=== PATIENT | female | born 1935 | race Caucasian/White ===

== ENCOUNTER 2023-12-28 19:43 | Emergency (ER) | payer MEDICARE, SELFPAY ==
[2023-12-28 19:48] VITALS: BP 210/60; PULSE 65; RESP 20; TEMP 36.1; O2SAT 98; BMI 22.9
--- NOTE | 2023-12-28 20:08 | ECG_ITS ---
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
--- NOTE | 2023-12-28 20:11 | ED.GENADUL1 ---
HPI - General Adult General Chief complaint: Recheck/Abnormal Lab/Rx Stated complaint: Hypertension Time Seen by Provider: 12/28/23 19:45 Source: patient Mode of arrival: walk-in History of Present Illness HPI narrative: Patient is an 88-year-old female with a longstanding history of hypertension presents to the emergency department for elevated blood pressure readings at home. She denies headache, chest pain, recent illness, new or different medications. She states she has no symptoms, she checks her blood pressure at home because she knows when her blood pressure is high. She has no strokelike symptoms. She denies any recent adjustments of medications from her vp care management office who manages her blood pressure. She states she has an appointment in 3 weeks with them. She checked her blood pressure multiple times this afternoon and the readings were noted to increase throughout the day. Related Data Home Medications ?Medication ?Instructions ?Recorded ?Confirmed amlodipine 5 mg tablet 5 mg PO QAM 12/28/23 12/28/23 carvedilol 25 mg tablet 25 mg PO BID 12/28/23 12/28/23 clonidine HCl 0.2 mg tablet mg 12/28/23 hydralazine 50 mg tablet mg 12/28/23 lorazepam 0.5 mg tablet mg 12/28/23 losartan 100 mg tablet 100 mg PO DAILY 12/28/23 12/28/23 spironolactone 25 mg tablet mg 12/28/23 Allergies Allergy/AdvReac Type Severity Reaction Status Date / Time Sulfa (Sulfonamide Allergy Unknown Verified 12/28/23 20:11 Antibiotics) Review of Systems ROS Constitutional Denies: fever or chills Eyes Denies: change in vision Ears, nose, mouth, and throat Denies: throat pain or nasal congestion Cardiovascular Denies: chest pain Respiratory Denies: shortness of breath or cough Gastrointestinal Denies: nausea or vomiting Integumentary/Breast Denies: rash Neurological Denies: headache Psychiatric Reports: anxiety Exam Narrative Exam Narrative: Gen.: Awake, alert, in no distress Head: Normocephalic, atraumatic ENT: Moist mucous membranes Respiratory: No respiratory distress, lungs clear bilaterally Cardio: Regular rate and rhythm Extremities: Moves extremities equally Psych: Normal mood and affect Neuro: No focal neuro deficit Skin: Warm, dry, intact Constitutional Vital Signs, click to edit/add: Last Vital Signs Temp 96.9 F L 12/28/23 19:48 Pulse 61 12/28/23 20:46 Resp 18 12/28/23 20:46 BP 180/62 H 12/28/23 20:37 Pulse Ox 97 12/28/23 20:46 O2 Del Method Room Air 12/28/23 19:48 Course Vital Signs Vital signs: Vital Signs Temperature 96.9 F L 12/28/23 19:48 Pulse Rate 65 12/28/23 19:48 Respiratory Rate 20 12/28/23 19:48 Blood Pressure 210/60 H 12/28/23 19:48 Pulse Oximetry 98 12/28/23 19:48 Oxygen Delivery Method Room Air 12/28/23 19:48 Temperature 96.9 F L 12/28/23 19:48 Pulse Rate 61 12/28/23 20:46 Respiratory Rate 18 12/28/23 20:46 Blood Pressure 180/62 H 12/28/23 20:37 Pulse Oximetry 97 12/28/23 20:46 Oxygen Delivery Method Room Air 12/28/23 19:48 Medical Decision Making MDM Narrative Medical decision making narrative: Prior to blood pressure medication administration, blood pressure is 180/62 manually. Patient has no focal medical complaints. She has an unremarkable EKG and labs. She was given IV hydralazine, Vasotec was withheld. She was reevaluated by attending physician prior to discharge. Follow-up with PCP and vp care management for medication adjustment as needed Medical Records Medical records reviewed: Yes I reviewed the patient's medical records Lab Data Lab results reviewed: Yes I reviewed the patient's lab results Labs: Lab Results 12/28/23 Range/Units 20:22 WBC 6.0 (4.0-11.0) 10^3/uL RBC 4.57 (4.20-5.40) 10^6/uL Hgb 13.7 (12.0-16.0) g/dL Hct 42.9 (36.0-48.0) % MCV 93.9 (81.0-99.0) fL MCH 30.0 (26.7-34.0) pg MCHC 31.9 (29.9-35.2) g/dL RDW 14.8 (11.0-15.0) % Plt Count 142 L (150-450) 10^3/uL MPV 10.8 (9.5-13.5) fL Neut % (Auto) 39.9 L (43.0-75.0) % Lymph % (Auto) 34.9 (20.5-60.0) % [place] % (Auto) 15.1 H (1.7-12.0) % Eos % (Auto) 6.2 (0.9-7.0) % Baso % (Auto) 3.4 H (0.2-2.0) % Neut # (Auto) 2.4 (1.4-6.5) 10^3/uL Lymph # (Auto) 2.1 (1.2-3.8) 10^3/uL [place] # (Auto) 0.9 H (0.3-0.8) 10^3/uL Eos # (Auto) 0.4 (0.0-0.7) 10^3/uL Baso # (Auto) 0.2 H (0.0-0.1) 10^3/uL Abs Immat Gran (auto) 0.03 (0.00-0.03) 10^3/uL Imm/Tot Granulo (auto) 0.5 (0.0-0.5) % Sodium 139 (136-145) mmol/L Potassium 3.8 (3.5-5.1) mmol/L Chloride 106 (98-107) mmol/L Carbon Dioxide 26.1 (21.0-32.0) mmol/L Anion Gap 10.7 BUN 22.0 H (7.0-18.0) mg/dL Creatinine 1.11 H (0.55-1.02) mg/dL Est GFR ( Amer) 56 L (>=60) Est GFR (Non-Af Amer) 46 L (>=60) BUN/Creatinine Ratio 19.8 Glucose 108 H (74-106) mg/dL Calcium 9.7 (8.5-10.1) mg/dL Troponin I High Sens 6.6 (4.0-51.3) pg/mL ECG Data Attestation: I personally reviewed and interpreted this ECG as follows: (Normal sinus rhythm at a rate of 62, sinus arrhythmia with no acute ST elevation or ectopy. EKG reviewed by attending physician) Discharge Plan Discharge Stand Alone Forms: Portal Instructions Chief Complaint: Recheck/Abnormal Lab/Rx Clinical Impression: Hypertension Patient Disposition: Home, Self-Care Time of Disposition Decision: 20:57 Condition: Good Prescriptions / Home Meds: No Action carvedilol 25 mg tablet 25 mg PO BID amlodipine 5 mg tablet 5 mg PO QAM spironolactone 25 mg tablet clonidine HCl 0.2 mg tablet lorazepam 0.5 mg tablet hydralazine 50 mg tablet losartan 100 mg tablet 100 mg PO DAILY Print Language: Upper Sorbian Instructions: Hypertension (ED) Referrals: Amelia Trinh MD [Primary Care Provider] - 1 week
[2023-12-28 20:28] LABS: Basophils Absolute Auto 0.2 10^3/uL (0.0-0.1); Basophils Percent Auto 3.4 % (0.2-2.0); Eosinophils Absolute Auto 0.4 10^3/uL (0.0-0.7); Eosinophils Percent Auto 6.2 % (0.9-7.0); Hematocrit 42.9 % (36.0-48.0); Hemoglobin 13.7 g/dL (12.0-16.0); Immature Granulocytes Abs Auto 0.03 10^3/uL (0.00-0.03); Immature Granulocytes Pct Auto 0.5 % (0.0-0.5); Lymphocytes Absolute Auto 2.1 10^3/uL (1.2-3.8); Lymphocytes Percent Auto 34.9 % (20.5-60.0); Mean Corpuscular HGB Conc 31.9 g/dL (29.9-35.2); Mean Corpuscular Volume 93.9 fL (81.0-99.0); Mean Platelet Volume 10.8 fL (9.5-13.5); Monocytes Absolute Auto 0.9 10^3/uL (0.3-0.8); Monocytes Percent Auto 15.1 % (1.7-12.0); Neutrophils Absolute Auto 2.4 10^3/uL (1.4-6.5); Neutrophils Percent Auto 39.9 % (43.0-75.0); Platelet Count 142 10^3/uL (150-450); Red Blood Count 4.57 10^6/uL (4.20-5.40); Red Cell Distribution Width 14.8 % (11.0-15.0)
[2023-12-28 20:37] VITALS: BP 180/62
[2023-12-28] MEDS: HYDRALAZINE HCL 20 MG/ML VIAL 10 MG IVP (20:37)
[2023-12-28 20:46] VITALS: PULSE 61; RESP 18; O2SAT 97
[2023-12-28 20:47] LABS: Anion Gap 10.7; BUN Creatinine Ratio 19.8; Calcium 9.7 mg/dL (8.5-10.1); Carbon Dioxide 26.1 mmol/L (21.0-32.0); Chloride 106 mmol/L (98-107); Estimated GFR (African America 56 (>=60); Estimated GFR (Non-African Ame 46 (>=60); Glucose 108 mg/dL (74-106); Potassium 3.8 mmol/L (3.5-5.1); Sodium 139 mmol/L (136-145); Troponin I High Sensitivity 6.6 pg/mL (4.0-51.3)
[2023-12-28 21:16] VITALS: BP 162/54
[2023-12-28 21:19] VITALS: PULSE 70; RESP 16
== END 2023-12-28 21:39 | disposition home or self-care (01) ==
PROVIDERS: Physician Assistant; Emergency Provider Emergency Medicine; PCP Family Medicine
DX: I10 Essential (primary) hypertension (principal); Z79.899 Other long term (current) drug therapy
CPT/HCPCS: 36415; 80048; 84484; 85025; 93005; 96374; 99285

== ENCOUNTER 2024-01-12 08:03 | Outpatient (OUT) | payer MEDICARE, SELFPAY ==
[2024-01-12 08:35] LABS: Estimated Average Glucose 100 mg/dL; Glycohemoglobin A1C 5.1 % (4.5-6.2)
[2024-01-12 09:08] LABS: Anion Gap 12.8; BUN Creatinine Ratio 17.2; Calcium 9.7 mg/dL (8.5-10.1); Chloride 104 mmol/L (98-107); Estimated GFR (African America 50 (>=60); Estimated GFR (Non-African Ame 42 (>=60); Glucose 114 mg/dL (74-106); Potassium 3.8 mmol/L (3.5-5.1); Sodium 139 mmol/L (136-145); TSH W/ REFLEX FT4 3.735 uIU/mL (0.358-3.740)
== END 2024-01-12 08:04 | disposition home or self-care (01) ==
LOC: LAB 08:03
PROVIDERS: PCP Family Medicine; Visit Provider Family Medicine
DX: I12.9 Hypertensive chronic kidney disease with stage 1 through stage 4 chronic kidney disease, or unspecified chronic kidney disease (principal); R73.09 Other abnormal glucose; I1A.0 Resistant hypertension; N18.32 Chronic kidney disease, stage 3b
CPT/HCPCS: 36415; 80048; 83036; 84443

== ENCOUNTER 2024-04-25 17:55 | Emergency (ER) | payer MEDICARE, SELFPAY ==
[2024-04-25] VITALS (24 sets, daily range): BP systolic 155–192; BP diastolic 62–98; PULSE 55–75; TEMP 36.5; O2SAT 97–99; BMI 23.2
--- NOTE | 2024-04-25 18:02 | ECG_ITS ---
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
--- NOTE | 2024-04-25 18:08 | XR_ITS ---
The [address] [address] Patient Name: ZORAIDA GAYTAN MRN: [id number] date: 1935 Sex: F Assigned Patient Location: ER Current Patient Location: ER Accession/Order Number: [id number] Exam Date: 04/25/2024 18:19 Report Date: 04/25/2024 19:28 At the request of: ELLIOT SALDANA Procedure: XR chest 1V EXAM: XR chest 1V COMPARISON: 09/26/2022 CLINICAL INDICATION: Hypertension. FINDINGS: The cardiomediastinal silhouette is within normal limits. No focal consolidation. No pleural effusion. No pneumothorax. Hyperexpanded lungs suggesting emphysema/COPD again seen. Apparent left lower lung calcified granulomas. Trace left basilar atelectasis/scarring. No evidence of acute osseous abnormality. XR/XR chest 1V IMPRESSION: No acute findings. Hyperexpanded lungs suggesting emphysema/COPD again seen. Apparent left lower lung calcified granulomas. Electronically authenticated by: STEVEN TORREZ Date: 04/25/2024 19:28
--- NOTE | 2024-04-25 18:13 | ED_ITS ---
HPI HPI - General Adult General Chief complaint: Chest Pain Stated complaint: High Blood Pressure Time Seen by Provider: 04/25/24 18:01 Source: patient Mode of arrival: walk-in Limitations: no limitations History of Present Illness HPI narrative: Patient is an 88-year-old female who presents to the emergency department for elevated blood pressure noted at home. She states she returned home from shopping when she broke out in a sweat. She states that made her very worried because she looked up symptoms of a possible heart attack and sweating was one of them. She has no medical complaints at this time aside from the elevated blood pressure. She is well-known to this emergency department for frequent visits related to high blood pressure. She has no chest pain, shortness of christian th, no peripheral edema. She is resting comfortably, in no distress at time of initial interview. She denies any recent changes to her blood pressure medications. Related Data Home Medications ?Medication ?Instructions ?Recorded ?Confirmed carvedilol 25 mg tablet 25 mg PO BID 12/28/23 04/25/24 clonidine HCl 0.2 mg tablet 0.2 mg 12/28/23 hydralazine 50 mg tablet 50 mg 12/28/23 lorazepam 0.5 mg tablet mg 12/28/23 losartan 100 mg tablet 100 mg PO DAILY 12/28/23 04/25/24 spironolactone 25 mg tablet 25 mg 12/28/23 Allergies Allergy/AdvReac Type Severity Reaction Status Date / Time Sulfa (Sulfonamide AdvReac Mild rash Verified 04/25/24 17:58 Antibiotics) Opioid HPI Opioid Management Most Recent Opioid Data: No Data to Display Review of Systems ROS Constitutional Denies: fever or chills Ears, nose, mouth, and throat Denies: throat pain or nasal congestion Cardiovascular Denies: chest pain Respiratory Denies: shortness of breath or cough Gastrointestinal Denies: abdominal pain, nausea or vomiting Musculoskeletal Denies: back pain Hematologic/Lymphatic Denies: easy bruising or easy bleeding Exam Narrative Exam Narrative: Gen.: Awake, alert, in no distress Head: Normocephalic, atraumatic ENT: Moist mucous membranes Respiratory: No respiratory distress, lungs clear bilaterally Cardio: Regular rate and rhythm Gastrointestinal: Abdomen is soft, nondistended and nontender to palpation Extremities: Moves extremities equally, no pedal edema Psych: Normal mood and affect Neuro: No focal neuro deficit Skin: Warm, dry, intact Constitutional Vital Signs, click to edit/add: Last Vital Signs Temp 97.7 F 04/25/24 17:59 Pulse 64 04/25/24 20:15 Resp 21 H 04/25/24 20:15 BP 170/83 H 04/25/24 20:15 Pulse Ox 97 04/25/24 19:40 O2 Del Method Room Air 04/25/24 17:59 Course Vital Signs Vital signs: Vital Signs Temperature 97.7 F 04/25/24 17:59 Pulse Rate 60 04/25/24 17:59 Respiratory Rate 16 04/25/24 17:59 Blood Pressure 192/84 H 04/25/24 17:59 Pulse Oximetry 99 04/25/24 17:59 Oxygen Delivery Method Room Air 04/25/24 17:59 Temperature 97.7 F 04/25/24 17:59 Pulse Rate 64 04/25/24 20:15 Respiratory Rate 21 H 04/25/24 20:15 Blood Pressure 170/83 H 04/25/24 20:15 Pulse Oximetry 97 04/25/24 19:40 Oxygen Delivery Method Room Air 04/25/24 17:59 Medical Decision Making MDM Narrative Medical decision making narrative: Patient hypertensive at arrival, she has no chest pain, shortness of breath or diaphoresis on arrival to the emergency department. She did not have any chest pain or shortness of breath at home. EKG is unremarkable, blood pressure improved without any medications that were ordered for her blood pressure. She is resting comfortably on reevaluation. She had 2 negative troponins in the ER. She is discharged home to follow-up with her PCP. Continue blood pressure medications for home. Return to the ER if symptoms change or worsen SUPERVISED APC VISIT, PHYSICIAN ATTESTATION: Based on the medical record the care appears appropriate. ? Medical Records Medical records reviewed: Yes I reviewed the patient's medical records Lab Data Lab results reviewed: Yes I reviewed the patient's lab results Labs: Lab Results 04/25/24 04/25/24 Range/Units 18:07 19:40 WBC 13.3 H (4.0-11.0) 10^3/uL RBC 4.59 (4.20-5.40) 10^6/uL Hgb 13.8 (12.0-16.0) g/dL Hct 43.1 (36.0-48.0) % MCV 93.9 (81.0-99.0) fL MCH 30.1 (26.7-34.0) pg MCHC 32.0 (29.9-35.2) g/dL RDW 14.7 (11.0-15.0) % Plt Count 145 L (150-450) 10^3/uL MPV 10.4 (9.5-13.5) fL Seg Neuts % (Manual) 74.0 Band Neutrophils % 4.0 (0-5) % Lymphocytes % (Manual) 15.0 L (20.5-60.0) % Monocytes % (Manual) 3.0 (1.7-12.0) % Eosinophils % (Manual) 4.0 (0.9-7.0) % Basophils % (Manual) 0.0 L (0.2-2.0) % Neutrophils # (Manual) 9.84 H (1.4-6.5) 10^3/uL Band Neutrophils # 0.5 H (0.0-0.3) 10^3/uL Lymphocytes # (Manual) 1.99 (1.20-3.80) 10^3/uL Monocytes # (Manual) 0.39 (0.30-0.80) 10^3/uL Eosinophils # (Manual) 0.53 (0.00-0.70) 10^3/uL Basophils # (Manual) 0.00 (0.00-0.10) 10^3/uL PT 13.5 H (9.0-11.6) sec INR 1.31 Sodium 139 (136-145) mmol/L Potassium 3.9 (3.5-5.1) mmol/L Chloride 104 (98-107) mmol/L Carbon Dioxide 29.2 (21.0-32.0) mmol/L Anion Gap 9.7 BUN 27.0 H (7.0-18.0) mg/dL Creatinine 1.21 H (0.55-1.02) mg/dL Est GFR ( Amer) 51 L (>=60) Est GFR (Non-Af Amer) 42 L (>=60) BUN/Creatinine Ratio 22.3 Glucose 136 H (74-106) mg/dL Calcium 9.6 (8.5-10.1) mg/dL Total Bilirubin 0.7 (0.2-1.0) mg/dL AST 14 L (15-37) U/L ALT 18 (14-59) U/L Alkaline Phosphatase 63 (46-116) U/L Troponin I High Sens 5.7 6.5 (4.0-51.3) pg/mL NT-Pro-B Natriuret Pep 201.0 (<=1800.0) pg/mL Total Protein 7.4 (6.4-8.2) g/dL Albumin 4.0 (3.4-5.0) g/dL Globulin 3.4 g/dL Albumin/Globulin Ratio 1.2 Imaging Data Chest x-ray: Attestation: I have reviewed the pertinent imaging results. Radiologist's impression: ITS Impressions Chest X-Ray 04/25/24 18:08 IMPRESSION: No acute findings. Hyperexpanded lungs suggesting emphysema/COPD again seen. Apparent left lower lung calcified granulomas. Electronically authenticated by: STEVEN TORREZ Date: 04/25/2024 19:28 ECG Data Attestation: I personally reviewed and interpreted this ECG as follows: (Sinus rhythm at a rate of 65, no acute ST elevation or ectopy. EKG reviewed by attending physician) Discharge Plan Discharge Stand Alone Forms: Portal Instructions Chief Complaint: Chest Pain Clinical Impression: Hypertension Patient Disposition: Home, Self-Care Time of Disposition Decision: 20:26 Condition: Good Prescriptions / Home Meds: No Action carvedilol 25 mg tablet 25 mg PO BID spironolactone 25 mg tablet 25 mg clonidine HCl 0.2 mg tablet 0.2 mg lorazepam 0.5 mg tablet hydralazine 50 mg tablet 50 mg losartan 100 mg tablet 100 mg PO DAILY Print Language: Uzbek Instructions: Hypertension (ED) Referrals: Amelia Trinh MD [Primary Care Provider] - 1 week Discharge Date/Time: 04/25/24 21:04
[2024-04-25 18:16] LABS: Hematocrit 43.1 % (36.0-48.0); Hemoglobin 13.8 g/dL (12.0-16.0); Mean Corpuscular Hemoglobin 30.1 pg (26.7-34.0); Mean Corpuscular Volume 93.9 fL (81.0-99.0); Mean Platelet Volume 10.4 fL (9.5-13.5); Platelet Count 145 10^3/uL (150-450); Red Blood Count 4.59 10^6/uL (4.20-5.40); Red Cell Distribution Width 14.7 % (11.0-15.0); White Blood Count 13.3 10^3/uL (4.0-11.0)
[2024-04-25 18:31] LABS: INR 1.31; Prothrombin Time 13.5 sec (9.0-11.6)
[2024-04-25 18:44] LABS: Alanine Aminotransferase 18 U/L (14-59); Albumin Globulin Ratio 1.2; Alkaline Phosphatase 63 U/L (46-116); Anion Gap 9.7; Aspartate Amino Transferase 14 U/L (15-37); BUN Creatinine Ratio 22.3; Bilirubin Total 0.7 mg/dL (0.2-1.0); Calcium 9.6 mg/dL (8.5-10.1); Carbon Dioxide 29.2 mmol/L (21.0-32.0); Chloride 104 mmol/L (98-107); Estimated GFR (African America 51 (>=60); Estimated GFR (Non-African Ame 42 (>=60); Globulin 3.4 g/dL; Glucose 136 mg/dL (74-106); Potassium 3.9 mmol/L (3.5-5.1); Sodium 139 mmol/L (136-145); Total Protein 7.4 g/dL (6.4-8.2); Troponin I High Sensitivity 5.7 pg/mL (4.0-51.3)
[2024-04-25 19:08] LABS: Band Neutrophils Absolute 0.5 10^3/uL (0.0-0.3); Eosinophils Absolute Manual 0.53 10^3/uL (0.00-0.70); Lymphocytes Absolute Manual 1.99 10^3/uL (1.20-3.80); Monocytes Absolute Manual 0.39 10^3/uL (0.30-0.80); Segmented Neut Absolute Manual 9.84 10^3/uL (1.4-6.5)
[2024-04-25 20:17] LABS: Troponin I High Sensitivity 6.5 pg/mL (4.0-51.3)
== END 2024-04-25 21:04 | disposition home or self-care (01) ==
PROVIDERS: Physician Assistant; Emergency Provider Internal Medicine; PCP Family Medicine
DX: I10 Essential (primary) hypertension (principal)
CPT/HCPCS: 36415; 71045; 80053; 83880; 84484; 85007; 85027; 85610; 93005; 99285

== ENCOUNTER 2024-05-10 14:03 | Emergency (ER) | payer MEDICARE, SELFPAY ==
[2024-05-10] VITALS (18 sets, daily range): BP systolic 160–214; BP diastolic 63–112; PULSE 49–65; TEMP 36.5; O2SAT 97–98; BMI 23.2
--- NOTE | 2024-05-10 14:18 | ECG_ITS ---
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
--- NOTE | 2024-05-10 14:18 | XR_ITS ---
The [address] [address] Patient Name: ZORAIDA GAYTAN MRN: [id number] date: 1935 Sex: F Assigned Patient Location: ER Current Patient Location: ER Accession/Order Number: [id number] Exam Date: 05/10/2024 14:28 Report Date: 05/10/2024 15:00 At the request of: RUSSELL MELENDEZ Procedure: XR chest 1V EXAMINATION: XR chest 1V HISTORY: chest pain COMPARISON: XR chest 04/25/2024, 09/26/2022, 04/15/2022 FINDINGS: LUNGS: Chronic opacities obscuring the left lateral costophrenic angle. Lungs otherwise clear. Chronic small dense nodule within mid left lung base, likely calcified granuloma. VASCULATURE: No increased pulmonary vasculature. PLEURA: No pneumothorax, effusion, or pleural thickening. CARDIAC: No cardiomegaly or cardiac silhouette abnormality. MEDIASTINUM: No visible mass or adenopathy. BONES: No fracture or visible bone lesion. OTHER: Negative. XR/XR chest 1V IMPRESSION: 1. Mild opacities within lateral left lung base/lateral costophrenic angle seen on all prior studies; chronic changes recurrent infectious etiology. Chronic changes are favored. Electronically authenticated by: HARJINDER RAMIREZ Date: 05/10/2024 15:00
[2024-05-10 14:33] LABS: Basophils Absolute Auto 0.2 10^3/uL (0.0-0.1); Basophils Percent Auto 3.1 % (0.2-2.0); Eosinophils Absolute Auto 0.4 10^3/uL (0.0-0.7); Eosinophils Percent Auto 6.3 % (0.9-7.0); Hematocrit 39.6 % (36.0-48.0); Hemoglobin 12.9 g/dL (12.0-16.0); Immature Granulocytes Abs Auto 0.02 10^3/uL (0.00-0.03); Immature Granulocytes Pct Auto 0.3 % (0.0-0.5); Lymphocytes Absolute Auto 1.8 10^3/uL (1.2-3.8); Mean Corpuscular HGB Conc 32.6 g/dL (29.9-35.2); Mean Corpuscular Hemoglobin 30.4 pg (26.7-34.0); Mean Corpuscular Volume 93.2 fL (81.0-99.0); Mean Platelet Volume 10.9 fL (9.5-13.5); Monocytes Absolute Auto 0.7 10^3/uL (0.3-0.8); Monocytes Percent Auto 12.4 % (1.7-12.0); Neutrophils Absolute Auto 2.8 10^3/uL (1.4-6.5); Neutrophils Percent Auto 46.9 % (43.0-75.0); Platelet Count 144 10^3/uL (150-450); Red Blood Count 4.25 10^6/uL (4.20-5.40); Red Cell Distribution Width 14.8 % (11.0-15.0); White Blood Count 5.9 10^3/uL (4.0-11.0)
[2024-05-10 14:52] LABS: D Dimer 0.29 mg/L FEU (<=0.59); INR 1.34; Prothrombin Time 13.8 sec (9.0-11.6)
[2024-05-10 14:53] LABS: Alanine Aminotransferase 17 U/L (14-59); Albumin Globulin Ratio 1.1; Albumin Level 3.5 g/dL (3.4-5.0); Alkaline Phosphatase 54 U/L (46-116); Anion Gap 9.9; Aspartate Amino Transferase 14 U/L (15-37); BUN Creatinine Ratio 16.4; Bilirubin Total 0.4 mg/dL (0.2-1.0); Calcium 9.5 mg/dL (8.5-10.1); Chloride 104 mmol/L (98-107); Estimated GFR (African America 48 (>=60); Estimated GFR (Non-African Ame 39 (>=60); Globulin 3.1 g/dL; Glucose 143 mg/dL (74-106); Potassium 3.9 mmol/L (3.5-5.1); Sodium 136 mmol/L (136-145); Total Protein 6.6 g/dL (6.4-8.2); Troponin I High Sensitivity 5.5 pg/mL (4.0-51.3)
--- NOTE | 2024-05-10 14:54 | ED.GENADUL1 ---
HPI HPI - General Adult General Chief complaint: Back Pain/Injury Stated complaint: SHORTNESS OF BREATH/BACK PAIN Time Seen by Provider: 05/10/24 14:17 Source: patient and family Mode of arrival: walk-in Limitations: no limitations History of Present Illness HPI narrative: 88-year-old female presents here with a chief complaint of lower lumbar pain. She states she woke this morning with lower lumbar pain. She has a known history of hypertension. Her hypertension is uncontrolled. She denies any headache or chest pain. She states she felt some weakness due to her lower back pain earlier today. Denies any injury or trauma. She denied numbness, tingling loss of bowel or bladder function. She had taken her medications today prior to coming to the emergency room. She states she also took Tylenol 2 hours before coming in her back pain had subsided when she arrived here to the emergency room. Patient is alert and oriented no sign of acute distress. No acute lower swelling or edema. Patient is known to have hypertension when she did arrive to the emergency room. Related Data Home Medications ?Medication ?Instructions ?Recorded ?Confirmed carvedilol 25 mg tablet 25 mg PO BID 12/28/23 05/10/24 clonidine HCl 0.2 mg tablet 0.2 mg PO DAILY 12/28/23 05/10/24 hydralazine 50 mg tablet 75 mg PO 12/28/23 lorazepam 0.5 mg tablet 0.5 mg PO Q12H PRN anxiety 12/28/23 05/10/24 losartan 100 mg tablet 100 mg PO DAILY 12/28/23 05/10/24 spironolactone 25 mg tablet 25 mg PO Q12H 12/28/23 05/10/24 Allergies Allergy/AdvReac Type Severity Reaction Status Date / Time Sulfa (Sulfonamide AdvReac Mild rash Verified 05/10/24 14:12 Antibiotics) Opioid HPI Opioid Management Most Recent Opioid Data: No Data to Display Review of Systems ROS Narrative All Systems are negative except as noted/marked.All systems reviewed and otherwise negative Exam Narrative Exam Narrative: Nurses note and vital signs reviewed and patient is not hypoxic. General: The patient appears well and in no apparent distress. Patient is resting comfortably on cart. Skin: Warm, dry, no pallor noted. There is no rash noted. Head: Normocephalic, atraumatic Eye: Normal conjunctiva, no drainage, EOMI. PERRL Ears, Nose, Mouth, and Throat: oral mucosa is moist. Nares patent. Mouth without vesicles. Ear canals patent. Tm's without Erythema Cardiovascular: Regular Rate and Rhythm Respiratory: Patient is in no distress, no accessory muscle use, lungs are clear to auscultation, no wheezing, rales or rhonchi Back: non-tender, no CVA tenderness bilaterally to percussion. GI: Normal bowel sounds, no tenderness to palpation, no masses appreciated. No rebound, guarding, or rigidity noted. Musculoskeletal: The patient has no evidence of calf tenderness, no pitting edema, symmetrical pulses noted bilaterally Neurological: A&O x4, normal speech Psychiatric: Cooperative Constitutional Vital Signs, click to edit/add: Last Vital Signs Temp 97.7 F 05/10/24 14:08 Pulse 55 L 05/10/24 15:20 Resp 20 05/10/24 15:20 BP 170/77 H 05/10/24 15:19 Pulse Ox 97 05/10/24 14:11 O2 Del Method Room Air 05/10/24 14:08 Course Vital Signs Vital signs: Vital Signs Temperature 97.7 F 05/10/24 14:08 Pulse Rate 65 05/10/24 14:08 Respiratory Rate 18 05/10/24 14:08 Blood Pressure 214/76 H 05/10/24 14:08 Pulse Oximetry 98 05/10/24 14:08 Oxygen Delivery Method Room Air 05/10/24 14:08 Temperature 97.7 F 05/10/24 14:08 Pulse Rate 55 L 05/10/24 15:20 Respiratory Rate 20 05/10/24 15:20 Blood Pressure 170/77 H 05/10/24 15:19 Pulse Oximetry 97 05/10/24 14:11 Oxygen Delivery Method Room Air 05/10/24 14:08 Medical Decision Making Medical Records Medical records reviewed: Yes I reviewed the patient's medical records Medical records narrative: 88-year-old female presents here with a chief complaint of lower lumbar pain. She states she woke this morning with lower lumbar pain. She has a known history of hypertension. Her hypertension is uncontrolled. She denies any headache or chest pain. She states she felt some weakness due to her lower back pain earlier today. Denies any injury or trauma. She denied numbness, tingling loss of bowel or bladder function. She had taken her medications today prior to coming to the emergency room. She states she also took Tylenol 2 hours before coming in her back pain had subsided when she arrived here to the emergency room. Patient is alert and oriented no sign of acute distress. No acute lower swelling or edema. Patient is known to have hypertension when she did arrive to the emergency room. Here with chief complaint of lower lumbar pain. She does have a history of chronic hypertension. She was hypertensive upon arrival and denied any chest pain here today. Vital signs are stable CBC BMP and chest x-ray are negative. EKG was also read negative. Patient had taken Tylenol prior to arrival and the pain had improved. She was sitting here with her neighbor laughing and carrying on. Her pain did return at 1 point to lower lumbar area she was medicated here with a small dose of Toradol she states it did help with her symptoms. Urinalysis is also reviewed and negative. Patient states she takes hydralazine at home around 3:00. IV dose of hydralazine was given here today around 4:00. She got 5 mg IV. Current blood pressure is 168/77 which is much improved from her arrival. Patient's is at bedside. Patient feels well. Patient will be able to be discharged home. She will take Tylenol for her pain. She denies the need for muscle relaxants. She will follow-up with her primary care physician. If symptoms change or worsen she is encouraged to return to the emergency room. Lab Data Lab results reviewed: Yes I reviewed the patient's lab results Labs: Lab Results 05/10/24 05/10/24 Range/Units 14:23 15:00 WBC 5.9 (4.0-11.0) 10^3/uL RBC 4.25 (4.20-5.40) 10^6/uL Hgb 12.9 (12.0-16.0) g/dL Hct 39.6 (36.0-48.0) % MCV 93.2 (81.0-99.0) fL MCH 30.4 (26.7-34.0) pg MCHC 32.6 (29.9-35.2) g/dL RDW 14.8 (11.0-15.0) % Plt Count 144 L (150-450) 10^3/uL MPV 10.9 (9.5-13.5) fL Neut % (Auto) 46.9 (43.0-75.0) % Lymph % (Auto) 31.0 (20.5-60.0) % Simpson % (Auto) 12.4 H (1.7-12.0) % Eos % (Auto) 6.3 (0.9-7.0) % Baso % (Auto) 3.1 H (0.2-2.0) % Neut # (Auto) 2.8 (1.4-6.5) 10^3/uL Lymph # (Auto) 1.8 (1.2-3.8) 10^3/uL Simpson # (Auto) 0.7 (0.3-0.8) 10^3/uL Eos # (Auto) 0.4 (0.0-0.7) 10^3/uL Baso # (Auto) 0.2 H (0.0-0.1) 10^3/uL Abs Immat Gran (auto) 0.02 (0.00-0.03) 10^3/uL Imm/Tot Granulo (auto) 0.3 (0.0-0.5) % PT 13.8 H (9.0-11.6) sec INR 1.34 D-Dimer 0.29 (<=0.59) mg/L FEU Sodium 136 (136-145) mmol/L Potassium 3.9 (3.5-5.1) mmol/L Chloride 104 (98-107) mmol/L Carbon Dioxide 26.0 (21.0-32.0) mmol/L Anion Gap 9.9 BUN 21.0 H (7.0-18.0) mg/dL Creatinine 1.28 H (0.55-1.02) mg/dL Est GFR ( Amer) 48 L (>=60) Est GFR (Non-Af Amer) 39 L (>=60) BUN/Creatinine Ratio 16.4 Glucose 143 H (74-106) mg/dL Calcium 9.5 (8.5-10.1) mg/dL Total Bilirubin 0.4 (0.2-1.0) mg/dL AST 14 L (15-37) U/L ALT 17 (14-59) U/L Alkaline Phosphatase 54 (46-116) U/L Troponin I High Sens 5.5 (4.0-51.3) pg/mL NT-Pro-B Natriuret Pep 178.0 (<=1800.0) pg/mL Total Protein 6.6 (6.4-8.2) g/dL Albumin 3.5 (3.4-5.0) g/dL Globulin 3.1 g/dL Albumin/Globulin Ratio 1.1 Urine Color Lt. yellow (YELLOW) Urine Clarity Clear (CLEAR) Urine pH 6.0 (5.0-9.0) Ur Specific [place] 1.015 (1.005-1.025) Urine Protein Negative (NEG/TRACE) mg/dL Urine Glucose (UA) Negative (NEGATIVE) mg/dL Urine Ketones Negative (NEGATIVE) mg/dL Urine Occult Blood Trace-i (NEGATIVE) Urine Nitrite Negative (NEGATIVE) Urine Bilirubin Negative (NEGATIVE) Urine Urobilinogen 0.2 (0.2-1.0) EU/dL Ur Leukocyte Esterase Small A (NEGATIVE) Urine RBC 5-10 A (0-2) #/HPF Urine WBC 0-2 A (NONE SEEN) #/HPF Ur Squamous Epith Cells Moderate A (NONE/RARE) #/LPF Urine Crystals None seen (None Seen) #/HPF Urine Bacteria Trace A (NONE SEEN) #/HPF Urine Casts None seen (NONE SEEN) #/LPF Urine Mucus None seen (NONE SEEN) Imaging Data Chest x-ray: Attestation: I have reviewed the pertinent imaging results. Radiologist's impression: ITS Impressions Chest X-Ray 05/10/24 14:18 IMPRESSION: 1. Mild opacities within lateral left lung base/lateral costophrenic angle seen on all prior studies; chronic changes recurrent infectious etiology. Chronic changes are favored. Electronically authenticated by: HARJINDER RAMIREZ Date: 05/10/2024 15:00 ECG Data Interpretation: 1415 normal sinus rhythm with a rate of 62 bpm, TX interval 186 ms, QRS duration 90 ms, no ST elevation or depression, no STEMI Discharge Plan Discharge Stand Alone Forms: Portal Instructions Chief Complaint: Back Pain/Injury Clinical Impression: Hypertension, Strain of lumbar region Patient Disposition: Home, Self-Care Time of Disposition Decision: 15:59 Condition: Good Prescriptions / Home Meds: No Action carvedilol 25 mg tablet 25 mg PO BID spironolactone 25 mg tablet 25 mg PO Q12H clonidine HCl 0.2 mg tablet 0.2 mg PO DAILY lorazepam 0.5 mg tablet 0.5 mg PO Q12H PRN (Reason: anxiety) hydralazine 50 mg tablet 75 mg PO losartan 100 mg tablet 100 mg PO DAILY Print Language: American Instructions: Muscle Strain (ED), Hypertension in the Older Adult (ED) Referrals: Amelia Trinh MD [Primary Care Provider] - 1 week
[2024-05-10] MEDS: KETOROLAC TROMETHAMINE 30 MG/ML VIAL 15 MG IVP ×2 (15:15→15:57)
[2024-05-10 15:17] LABS: Bilirubin Urine NEGATIVE (NEGATIVE); Blood Urine TRACE-I (NEGATIVE); Clarity Urine CLEAR (CLEAR); Color Urine LT. YELLOW (YELLOW); Glucose Urine UA NEGATIVE (NEGATIVE); Ketones Urine NEGATIVE (NEGATIVE); Leukocyte Esterase Urine SMALL (NEGATIVE); Nitrite Urine NEGATIVE (NEGATIVE); Protein Urine NEGATIVE (NEG/TRACE); Specific Gravity Urine 1.015 (1.005-1.025); Urobilinogen Urine 0.2 EU/dL (0.2-1.0)
[2024-05-10 15:39] LABS: WBC Urine 0-2 #/HPF (NONE SEEN)
[2024-05-10 15:40] LABS: Cast Seen? NONE SEEN #/LPF (NONE SEEN); Crystals Seen? None Seen #/HPF (None Seen); Mucus Urine NONE SEEN (NONE SEEN); Squamous Epithelial Cell Urine MODERATE #/LPF (NONE/RARE)
[2024-05-10 15:41] LABS: Bacteria Urine TRACE #/HPF (NONE SEEN)
[2024-05-10] MEDS: HYDRALAZINE HCL 20 MG/ML VIAL 5 MG IVP (15:47)
== END 2024-05-10 16:15 | disposition home or self-care (01) ==
PROVIDERS: Physician Assistant; Emergency Provider Emergency Medicine Emergency Medical Services; PCP Family Medicine
DX: S39.012A Strain of muscle, fascia and tendon of lower back, initial encounter (principal); X58.XXXA Exposure to other specified factors, initial encounter; I10 Essential (primary) hypertension; R53.1 Weakness; Z79.899 Other long term (current) drug therapy
CPT/HCPCS: 36415; 71045; 80053; 81001; 83880; 84484; 85025; 85378; 85610; 93005; 96374; 96375; 96376; 99285; J0360; J1885

== ENCOUNTER 2024-05-15 10:44 | Outpatient (OUT) | payer MEDICARE, SELFPAY ==
--- OUTSIDE RECORDS SUMMARY | 2024-05-15 10:50 | XMS_ITS | CCD ---
Author Organization [facility]Sym[facility] Care Team Providers Care Filter Washer Name Role Phone AMELIA FREY Primary Care Physician SAURABH Puentes, DR RUBIO Consulting Unavailable SAURABH ., DR RUBIO Attending Unavailable SAURABH ., DR RUBIO Admitting Unavailable TK, DR AMELIA Ashton Primary Care Unavailable NITHIN, DR GEORGIE Bartholomew Consulting Unavailjavier e NITHIN, DR GEORGIE Bartholomew Attending Unavailabl e NITHIN, DR GEORGIE Bartholomew Admitting Unavailabl e FREY, DR AMELIA Ashton Primary Care Unavailable BERNIE NAVARRO Consulting Unavailable TK, DR AMELIA Ashton Primary Care Unavailable YOAV ., ASTRID Admitting Unavailable YOAV ., ASTRID Attending Unavailable YOAV ., ASTRID Consulting Unavailable MOMO RICO Consulting Unavailable TK, DR AMELIA Ashton Primary Care Unavailable RINKU, DR CINDY Resendiz Admitting Unavailable RINKU, DR CINDY Resendiz Attending Unavailable RINKU, DR CINDY Resendiz Consulting Unavailable PANCHO ELY Consulting Unavailable TK, DR AMELIA Ashton Consulting Unavailable TK, DR AMELIA Ashton Primary Care Unavailable FREY, DR AMELIA Ashton Attending Unavailable FREY, DR AMELIA Ashton Admjames Unavailable AALIYAH POOLE Consulting Unavailable TK, DR AMELIA Ashton Primary Care Unavailable VIRGILIO, AALIYAH Attending Unavailable VIRGILIO, AALIYAH Admitting Unavailable VIRGILIO, AALIYAH Admitting Unavailable VIRGILIO, AALIYAH Attending Unavailable FREY, DR AMELIA Ashton Primary Care Unavailable FREY, DR AMELIA sAhton Primary Care Unavailable RADHA OLEARY Admitting Unavailable ANIRUDH, RADHA Attending Unavailable RADHA OLEARY Consulting Unavailable TK, DR AMELIA Ashton Primary Care Unavailable PAY ., DR GARCIA Admitting Unavailable PAY ., DR GARCIA Attending Unavailable JAMES, DR HARJINDER Resendiz Consulting Unavailable PAY ., DR GARCIA Consulting Unavailable AL .RUSSELL Consulting Unavailable JAMES, DR HARJINDER Resendiz Consulting Unavailable EVAN WALLIS Attending Unavailable EVAN WALLIS Admitting Unavailable TK, DR AMELIA Ashton Primary Care Unavailable EVAN WALLIS Consulting Unavailable RADHA OLEARY Attending Unavailable ANIRUDH, RADHA Admitting Unavailable ANIRUDH, RADHA Consulting Unavailable TK, DR AMELIA Ashton Primary Care Unavailable FREY, DR AMELIA Ashotn Primary Care Unavailable RINKU, DR CINDY Resendiz Admitting Unavailable RINKU, DR CINDY Resendiz Attending Unavailable RINKU, DR CINDY Resendiz Consulting Unavailable HAY ., DR RUBIO Consulting Unavailable HAY ., DR RUBIO Attending Unavailable HAY ., DR RUBIO Admitting Unavailable FREY, DR AMELIA Ashton Primary Care Unavailable ANIRUDH, RADHA Consulting Unavailable ANIRUDH, RADHA Attending Unavailable ANIRUDH, RADHA Admitting Unavailable FREY, DR AMELIA Ashton Primary Care Unavailable HAY ., DR RUBIO Consulting Unavailable HAY ., DR RUBIO Attending Unavailable HAY ., DR RUBIO Admitting Unavailable FREY, DR AMELIA Ashton Primary Care Unavailable ZAVALETA ., MR ISATU Consulting Unavailable REINECK, DR GEORGIE Bartholomew Attending Unavailabl e REINECK, DR GEORGIE Bartholomew Admitting Unavailabl e FREY, DR AMELIA Ashton Primary Care Unavailable FREY, DR AMELIA Ashton Primary Care Unavailable MARKER ., DR FISCHER Admitting Unavailable MARKER ., DR FISCHER Attending Unavailable MARKER ., DR FISCHER Consulting Unavailable FREY, DR AMELIA Ashton Primary Care Unavailable YOAV ., ASTRID Admitting Unavailable YOAV ., ASTRID Attending Unavailable YOAV ., ASTRID Consulting Unavailable ALGHOTHANI, MOHAMAD Admitting Unavailable ALGHOTHANI, MOHNATD Attending Unavailable FREY, DR AMELIA Ashton Primary Care Unavailable H[place], DR BERTHA Logan Consulting Unavailable ALGHOTHANI, MOHAMAD Consulting Unavailable Frey, Amelia Unavailable Rox Watson Unavailable ALGHOTHANI, MOHAMAD Attending Unavailable VIRGILIO, AALIYAH Attending Unavailable VIRGILIO, AALIYAH Attending Unavailable VIRGILIO, AALIYAH Attending Unavailable Allergies Allergy Classification Reported Allergen(s) Allergy Type Date of Onset Reaction(s) Facility (1 source) Sulfonamides (Antibiotic); Translations: [sulfa drugs] Drug allergy Unknown [facility] (2 sources) Sulfonamides (Antibiotic) Drug allergy (disorder) 4 [facility] Repository (10 sources) Substance with sulfonamide structure and antibacterial mechanism of action (substance) Drug allergy Unknown [facility] Other (1 source) Sulfonamides (Antibiotic); Translations: [SULFA (SULFONAMIDE ANTIBIOTICS)] Propensity to adverse reactions to drug (disorder) 2 [facility] Repository Medications Current Medications Medication Drug Class(es) Dates Sig (Normalized) Sig (Original) amLODIPine 5 mg oral tablet (10 sources) Dihydropyridine Calcium Channel Atif take 1 tablet by mouth every twenty-four hours carvedilol 25 mg oral tablet (12 sources) alpha-Adrenergic Atif, beta-Adrenergic Atif Start: 01-08-2024 take 1 tablet by mouth twice daily at mealtime take 1 tablet by mouth every twe lve hours cloNIDine hydrochloride 0.2 mg oral tablet (12 sources) Central alpha-2 Adrenergic Agonist Start: 01-08-2024 take 1 tablet by mouth twice daily take 1 tablet by mouth every twe lve hours furosemide 20 mg oral tablet (10 sources) Loop Diuretic hydrALAZINE hydrochloride 50 mg oral tablet (12 sources) Arteriolar Vasodilator Start: take 100 mg by mouth three times daily Hydralazine Active 100 MG PO Three times daily January 05, 2024 12:00am take 2 tablets by mo [facility] every eight hours hydrALAZINE HCl 50 MG 2 tablet with food Orally Three times a day Active losartan potassium 100 mg oral tablet (12 sources) Angiotensin 2 Receptor Atif Start: 01-08-2024 take 1 tablet by mouth once daily Losartan Active 1 TAB PO Daily January 08, 2024 12:00am [employer] tablet Orally Once a day; Note: Source Status: Not-Taking\PRN; Provider: Eros Peñaloza ( ) take 1 tablet by mouth every twe nty-four hours microencapsulated potassium chloride 10 meq extended release oral tablet (10 sources) take 1 tablet by mouth once daily at mealtime as needed spironolactone 25 mg oral tablet (12 sources) Aldosterone Antagonist Start: 01-08-2024 take 1 tablet by mouth once daily Completed/Discontinued Medications Medication Drug Class(es) Dates Sig (Normalized) Sig (Original) LORazepam 0.5 mg oral tablet (12 sources) Benzodiazepine Start: 01-05-2024 End: 01-08-2024 take 0.5 mg by mouth twice daily Lorazepam Discontinued 0.5 MG PO Twice daily January 05, 2024 12:00am January 08, 2024 11:51am Start: 06-08-2023 [facility] LORazepam 0.5 MG 1 tab Orally Twice a day prn for 30 days She needs an appt and doesn't answer our phone calls. May, Active Start: 05-25-2023 take 1 tablet by juliette th once daily as needed LORazepam 0.5 MG TAKE 1 TABLET BY MOUTH EVERY DAY NEEDED for 30 days She needs an appt and doesn't answer our phone calls. May, Active Start: 04-26-2023 take 1 tablet by juliette th once daily as needed LORazepam 0.5 MG TAKE 1 TABLET BY MOUTH EVERY DAY NEEDED for 30 days Apr, Active Start: 03-23-2023 take 1 tablet by juliette th once daily as needed LORazepam 0.5 MG TAKE 1 TABLET BY MOUTH EVERY DAY NEEDED for 30 days Mar, Active Start: 01-17-2023 take 1 tablet by juliette th once daily as needed LORazepam 0.5 MG TAKE 1 TABLET BY MOUTH EVERY DAY NEEDED for 30 days Jan, Active Start: 11-18-2022 take 1 tablet by juliette th once daily as needed LORazepam 0.5 MG TAKE 1 TABLET BY MOUTH EVERY DAY NEEDED for 30 days Nov, Active Problems Active Problems Problem Classification Problem Date Documented Da te Episodic/Chronic Anxiety disorders (1 source) Anxiety disorder, unspecified; Translations: [ANXIETY DISORDER UNSPECIFIED] Onset: 10-05-2022 Chronic Cardiac dysrhythmias (2 sources) Bradycardia, unspecified; Translations: [Bradycardia, unspecified] Onset: 03-28-2024 Episodic Chronic kidney disease (13 sources) Chronic kidney disease stage 3B ; Translations: [Chronic kidney disease, stage 3b] 01-05-2024 Chronic Diabetes mellitus without complication (1 source) Increased glucose level; Translations: [Other abnormal glucose] 01-09-2024 Episodic Essential hypertension (20 sources) Essential hypertension; Translations: [Essential (primary) hypertension] Onset: 02-24-2022 Chronic Heart valve disorders (1 source) 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; Translations: [RHEUMATIC D/O AORTIC TRICUSPID VALV] Onset: 04-08-2022 Chronic Hypertension with complications and secondary hypertension (18 sources) Hypertensive urgency; Translations: [Hypertension secondary to other renal disorders] Onset: 04-06-2022 Chronic Nonspecific chest pain (5 sources) Other chest pain; Translations: [Chest pain, unspecified] Onset: 08-30-2022 Episodic Other aftercare (1 source) 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; Translations: [OTH CARE HOME 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 THERAPY] Onset: 10-12-2022 Episodic Other and ill-defined heart disease (3 sources) Other ill-defined heart diseases; Translations: [OTHER ILL-DEFINED HEART DISEASES] Onset: 07-20-2022 Chronic Other lower respiratory disease (3 sources) Shortness of breath; Translations: [SHORTNESS OF BREATH] Onset: 09-26-2022 Episodic Other nutritional; endocrine; and metabolic disorders (1 source) Abnormal weight gain; Translations: [Abnormal weight gain] 05-07-2024 Episodic Other nutritional; endocrine; and metabolic disorders (1 source) Abnormal weight gain; Translations: [Abnormal weight gain] 05-07-2024 Episodic Residual codes; unclassified (3 sources) Insomnia; Translations: [Other insomnia] 01-05-2024 Chronic Residual codes; unclassified (1 source) Other insomnia Chronic Residual codes; unclassified (4 sources) Procedure and treatment not carried out due to patient leaving prior to being seen by health care provider; Translations: [PROC AND TX NOT CARRIED OUT PT LEAVE] Onset: 11-15-2022 Episodic Residual codes; unclassified (1 source) Acquired absence of other specified parts of digestive tract; Translations: [ACQ ABSENCE OTH PART DIGESTV TRACT] Onset: 09-21-2022 Episodic Substance-related disorders (3 sources) Nicotine dependence, cigarettes, uncomplicated; Translations: [Tobacco dependence syndrome] Onset: 10-05-2022 01-05-2024 Chronic Syncope (1 source) Syncope; Translations: [Syncope and collapse] 05-07-2024 Episodic Unclassified (1 source) CONTACT W/AND (SUSP) EXPOS COVID-19; Translations: [CONTACT W/AND (SUSP) EXPOS COVID-19] Onset: 09-28-2022 Past or Other Problems Problem Classification Problem Date Documented Da te Episodic/Chronic Chronic kidney disease (1 source) Chronic kidney disease Complications of surgical procedures or medical care (2 sources) Hypotension due to drugs; Translations: [Hypotension due to drugs] Onset: 02-17-2023 Episodic Residual codes; unclassified (3 sources) Localized edema; Translations: [LOCALIZED EDEMA] Onset: 07-20-2022 Episodic Results Test Name Value Interpretation Reference Range Facility Basophils/100 WBC Manual cnt (Bld)on 04-25-2024 Basophils/100 WBC (Bld) 0.0 % Low 0.2-2.0 [facility] Eosinophils/100 WBC Manual c nt (Bld)on 04-25-2024 Eosinophils/100 WBC (Bld) 4.0 % 0.9-7.0 [facility] Erythrocyte distribution wid th Auto (RBC) [Ratio]on 04-25-2024 Erythrocyte distribution width (RBC) [Ratio] 14.7 % 11.0-15.0 [facility] Estimated glomerular filtrat ion rate (GFR) non- Americanon 04-25-2024 GFR/1.73 sq M.predicted among non-blacks MDRD (S/P/Bld) [Vol rate/Area] 42 mL/min/{1.73_m2} Low >=60 [facility] Globulin Calc (S) [Mass/Vol] on 04-25-2024 Globulin (S) [Mass/Vol] 3.4 g/dL [facility] Hematocrit Auto (Bld) [Volum e fraction]on 04-25-2024 Hematocrit (Bld) [Volume fraction] 43.1 % 36.0-48.0 [facility] Hemoglobin [Mass/volume] in Bloodon 04-25-2024 Hemoglobin (Bld) [Mass/Vol] 13.8 g/dL 12.0-16.0 [facility] INR in Platelet poor plasma by Coagulation assayon 04-25-2024 INR Coag (PPP) [Relative time] 1.31 {INR} [facility] Comment on above: DESIRED INR:2.0-3.0 CONDITIONS NOT LISTED BELOW2.5-3.5 FOR PROSTHETIC HEART VALVE REPLACEMENT2.5-3.5 RECURRENT THROMBOSIS Laboratory - Chemistry and C hemistry - challengeon 04-25-2024 Albumin [Mass/Vol] 4.0 g/dL 3.4-5.0 [facility] ALP [Catalytic activity/Vol] 63 U/L 46-116 [facility] ALT [Catalytic activity/Vol] 18 U/L 14-59 [facility] AST [Catalytic activity/Vol] 14 U/L Low 15-37 [facility] Bilirubin [Mass/Vol] 0.7 mg/dL 0.2-1.0 [facility] Calcium [Mass/Vol] 9.6 mg/dL 8.5-10.1 [facility] Chloride [Moles/Vol] 104 mmol/L 98-107 [facility] CO2 [Moles/Vol] 29.2 mmol/L 21.0-32.0 [facility] Creatinine [Mass/Vol] 1.21 mg/dL High 0.55-1.02 [facility] GFR/1.73 sq M.predicted MDRD (S/P/Bld) [Vol rate/Area] 51 mL/min/{1.73_m2} Low >=60 [facility] Glucose [Mass/Vol] 136 mg/dL High 74-106 [facility] Natriuretic peptide B (Bld) [Mass/Vol] 201.0 pg/mL <=1800.0 [facility] Potassium [Moles/Vol] 3.9 mmol/L 3.5-5.1 [facility] Protein [Mass/Vol] 7.4 g/dL 6.4-8.2 [facility] Sodium [Moles/Vol] 139 mmol/L 136-145 [facility] Urea nitrogen [Mass/Vol] 27.0 mg/dL High 7.0-18.0 [facility] Urea nitrogen/Creatinine [Mass ratio] 22.3 mg/mg [facility] Laboratory - Hematology and Cell countson 04-25-2024 Band form neutrophils/100 WBC (Bld) 4.0 % 0-5 [facility] Lymphocytes/100 WBC (Bld) 15.0 % Low 20.5-60.0 [facility] Monocytes/100 WBC (Bld) 3.0 % 1.7-12.0 [facility] Leukocytes [#/volume] correc gely for nucleated erythrocytes in Blood by Automated counon 04-25-2024 WBC corrected for nucl RBC Auto (Bld) [#/Vol] 13.3 10 3/uL High 4.0-11.0 [facility] MCH Auto (RBC) [Entitic mass ]on 04-25-2024 MCH (RBC) [Entitic mass] 30.1 pg 26.7-34.0 [facility] MCHC Auto (RBC) [Mass/Vol]on 04-25-2024 MCHC (RBC) [Mass/Vol] 32.0 g/dL 29.9-35.2 [facility] MCV Auto (RBC) [Entitic vol] on 04-25-2024 MCV (RBC) [Entitic vol] 93.9 fL 81.0-99.0 [facility] No Panel Informationon 04-25 Troponin I High Sensitivity 6.5 pg/mL 4.0-51.3 [facility] Comment on above: CUT-OFF POINTS HAVE BEEN ESTABLISHED BASED ON THE FOURTHUNIVERSAL DEFINITION OF MYOCARDIAL INFARCTION. THE UPPERREFERENCE LIMIT (URL) OF TROPONIN, DEFINED THE 99THPERCENTILE OF cTnI DISTRIBUTION IN A REFERENCE POPULATION,HAS BEEN CONFIRMED THE DECISION THRESHOLD FOR MIDIAGNOSIS.99TH PERCENTILE = 51.4 PG/MLNOTE: HIGH-SENSITIVITY TROPONIN ASSAY IS NOT INTENDED TO BEUSED IN ISOLATION BUT SHOULD BE INTERPRETED IN CONJUNCTIONWITH OTHER DIAGNOSTIC AND CLINICAL INFORMATION. Absolute Basophils (Manual) 0.00 10 3/uL 0.00-0.10 [facility] Band Neutrophils # (Manual) 0.5 10 3/uL High 0.0-0.3 [facility] Eosinophils # (Manual) 0.53 10 3/uL 0.00-0.70 [facility] Lymphocytes # (Manual) 1.99 10 3/uL 1.20-3.80 [facility] Monocytes # (Manual) 0.39 10 3/uL 0.30-0.80 [facility] Segmented Neutrophils # (Manual) 9.84 10 3/uL High 1.4-6.5 [facility] Platelet mean volume Auto (B ld) [Entitic vol]on 04-25-2024 Platelet mean volume (Bld) [Entitic vol] 10.4 fL 9.5-13.5 [facility] Platelets Auto (Bld) [#/Vol] on 04-25-2024 Platelets (Bld) [#/Vol] 145 10 3/uL Low 150-450 [facility] Prothrombin time (PT)on 04-08 PT Coag (PPP) [Time] 13.5 s High 9.0-11.6 [facility] RBC Auto (Bld) [#/Vol]on RBC (Bld) [#/Vol] 4.59 10 6/uL 4.20-5.40 [facility] Segmented neutrophils/100 WB C Manual cnt (Bld)on 04-25-2024 Segmented neutrophils/100 WBC (Bld) 74.0 % [facility] Serum or plasma albumin/glob ulin mass ratioon 04-25-2024 Albumin/Globulin [Mass ratio] 1.2 {ratio} [facility] Serum or plasma anion gap de terminationon 04-25-2024 Anion gap [Moles/Vol] 9.7 mmol/L [facility] Office Visiton 03-28-2024 Follow-up visit [id number] Zoraida Barrios 1935 F Date Provider Department Center 03/28/2024 120-AALIYAH POOLE [facility]RISTOBAL [facility] Family History Problem Relation Age of Onset Hypertension Mother Family Status - Relation Status Age at Mother Level of Service:75676 [place] OFFICE/OUTPATIENT ESTABLISHED LOW MDM 20 MIN Normal [facility] Office Visiton 01-08-2024 Follow-up visit [id number] Zoraida Barrios 1935 F Date Provider Department Center 01/08/2024 3848-HERMELINDA HUGO CRISTOBAL [facility] Family History Problem Relation Age of Onset Hypertension Mother Family Status - Relation Status Age at Mother Level of Service:64066 [place] OFFICE/OUTPATIENT ESTABLISHED LOW MDM 20 MIN Reason for Visit and Comments: Follow-up [601638] Normal [facility] Basophils Auto (Bld) [#/Vol] on 12-28-2023 Basophils (Bld) [#/Vol] 0.2 10 3/uL 0.0-0.1 [facility] Basophils/100 WBC Auto (Bld) on 12-28-2023 Basophils/100 WBC (Bld) 3.4 % 0.2-2.0 [facility] Eosinophils/100 WBC Auto (Bl d)on 12-28-2023 Eosinophils/100 WBC (Bld) 6.2 % 0.9-7.0 [facility] Erythrocyte distribution wid th Auto (RBC) [Ratio]on 12-28-2023 Erythrocyte distribution width (RBC) [Ratio] 14.8 % 11.0-15.0 [facility] Estimated glomerular filtrat ion rate (GFR) non- Americanon 12-28-2023 GFR/1.73 sq M.predicted among non-blacks MDRD (S/P/Bld) [Vol rate/Area] 46 mL/min/{1.73_m2} >=60 [facility] Hematocrit Auto (Bld) [Volum e fraction]on 12-28-2023 Hematocrit (Bld) [Volume fraction] 42.9 % 36.0-48.0 [facility] Hemoglobin [Mass/volume] in Bloodon 12-28-2023 Hemoglobin (Bld) [Mass/Vol] 13.7 g/dL 12.0-16.0 [facility] Laboratory - Chemistry and C hemistry - challengeon 12-28-2023 Calcium [Mass/Vol] 9.7 mg/dL 8.5-10.1 [facility] Chloride [Moles/Vol] 106 mmol/L 98-107 [facility] CO2 [Moles/Vol] 26.1 mmol/L 21.0-32.0 [facility] Creatinine [Mass/Vol] 1.11 mg/dL 0.55-1.02 [facility] GFR/1.73 sq M.predicted MDRD (S/P/Bld) [Vol rate/Area] 56 mL/min/{1.73_m2} >=60 [facility] Glucose [Mass/Vol] 108 mg/dL 74-106 [facility] Potassium [Moles/Vol] 3.8 mmol/L 3.5-5.1 [facility] Sodium [Moles/Vol] 139 mmol/L 136-145 [facility] Urea nitrogen [Mass/Vol] 22.0 mg/dL 7.0-18.0 [facility] Urea nitrogen/Creatinine [Mass ratio] 19.8 mg/mg [facility] Laboratory - Hematology and Cell countson 12-28-2023 Immature granulocytes/100 WBC (Bld) 0.5 % 0.0-0.5 [facility] Leukocytes [#/volume] correc gely for nucleated erythrocytes in Blood by Automated counon 12-28-2023 WBC corrected for nucl RBC Auto (Bld) [#/Vol] 6.0 10 3/uL 4.0-11.0 [facility] Lymphocytes Auto (Bld) [#/Vo l]on 12-28-2023 Lymphocytes (Bld) [#/Vol] 2.1 10 3/uL 1.2-3.8 [facility] Lymphocytes/100 WBC Auto (Bl d)on 12-28-2023 Lymphocytes/100 WBC (Bld) 34.9 % 20.5-60.0 [facility] MCH Auto (RBC) [Entitic mass ]on 12-28-2023 MCH (RBC) [Entitic mass] 30.0 pg 26.7-34.0 [facility] MCHC Auto (RBC) [Mass/Vol]on 12-28-2023 MCHC (RBC) [Mass/Vol] 31.9 g/dL 29.9-35.2 [facility] MCV Auto (RBC) [Entitic vol] on 12-28-2023 MCV (RBC) [Entitic vol] 93.9 fL 81.0-99.0 [facility] Monocytes Auto (Bld) [#/Vol] on 12-28-2023 Monocytes (Bld) [#/Vol] 0.9 10 3/uL 0.3-0.8 [facility] Monocytes/100 WBC Auto (Bld) on 12-28-2023 Monocytes/100 WBC (Bld) 15.1 % 1.7-12.0 [facility] Neutrophils Auto (Bld) [#/Vo l]on 12-28-2023 Neutrophils (Bld) [#/Vol] 2.4 10 3/uL 1.4-6.5 [facility] Neutrophils/100 WBC Auto (Bl d)on 12-28-2023 Neutrophils/100 WBC (Bld) 39.9 % 43.0-75.0 [facility] No Panel Informationon 12-27 Eosinophils # (Auto) 0.4 10 3/uL 0.0-0.7 [facility] Immature Granulocyte # (Auto) 0.03 10 3/uL 0.00-0.03 [facility] Troponin I High Sensitivity 6.6 pg/mL 4.0-51.3 [facility] Comment on above: CUT-OFF POINTS HAVE BEEN ESTABLISHED BASED ON THE FOURTHUNIVERSAL DEFINITION OF MYOCARDIAL INFARCTION. THE UPPERREFERENCE LIMIT (URL) OF TROPONIN, DEFINED THE 99THPERCENTILE OF cTnI DISTRIBUTION IN A REFERENCE POPULATION,HAS BEEN CONFIRMED THE DECISION THRESHOLD FOR MIDIAGNOSIS.99TH PERCENTILE = 51.4 PG/MLNOTE: HIGH-SENSITIVITY TROPONIN ASSAY IS NOT INTENDED TO BEUSED IN ISOLATION BUT SHOULD BE INTERPRETED IN CONJUNCTIONWITH OTHER DIAGNOSTIC AND CLINICAL INFORMATION. Platelet mean volume Auto (B ld) [Entitic vol]on 12-28-2023 Platelet mean volume (Bld) [Entitic vol] 10.8 fL 9.5-13.5 [facility] Platelets Auto (Bld) [#/Vol] on 12-28-2023 Platelets (Bld) [#/Vol] 142 10 3/uL 150-450 [facility] RBC Auto (Bld) [#/Vol]on RBC (Bld) [#/Vol] 4.57 10 6/uL 4.20-5.40 [facility] Serum or plasma anion gap de terminationon 12-28-2023 Anion gap [Moles/Vol] 10.7 mmol/L [facility] Office Visiton 10-25-2023 Follow-up visit [id number] Zoraida Barrios 1935 F Date Provider Department Center 10/25/2023 AALIYAH HENDERSON Family History Problem Relation Age of Onset Hypertension Mother Family Status - Relation Status Age at Mother Level of Service:76373 [place] OFFICE/OUTPATIENT ESTABLISHED LOW MDM 20 MIN Reason for Visit and Comments: Follow-up [[id number]] [facility] Office Visiton 06-07-2023 Follow-up visit [id number] Zoraida Barrios 1935 F Date Provider Department Center 06/07/2023 AALIYAH HENDERSON Family History Problem Relation Age of Onset Hypertension Mother Family Status - Relation Status Age at Mother Level of Service:16393 [place] OFFICE/OUTPATIENT ESTABLISHED LOW MDM 20-29 MIN Normal [facility] PROF CHEM 8 (BAS METB)on Anion gap [Moles/Vol] 12.5 mmol/L Normal [facility] Comment on above: Performed By: #### B MP #### [facility] [address] [address] [address] Arden Magallon Calcium [Mass/Vol] 10.0 mg/dL Normal 8.5-10.1 [facility] Comment on above: Performed By: #### B MP #### [facility] [address] [address] [address] Arden Magallon Chloride [Moles/Vol] 105 mmol/L Normal 98-107 [facility] Comment on above: Performed By: #### B MP #### [facility] [address] [address] [address] Arden Magallon CO2 [Moles/Vol] 29.9 mmol/L Normal 21.0-32.0 [facility] Comment on above: Performed By: #### B MP #### [facility] [facility] [address] [address] [address] Arden Magallon Creatinine [Mass/Vol] 1.26 mg/dL Critically high 0.55-1.02 [facility] Comment on above: Performed By: #### B MP #### [facility] [address] [address] [address] Arden Magallon EGFR-AF BRITISH 49 mL/min/1.73m2 Critically low >=60 [facility] Comment on above: Performed By: #### B MP #### [facility] [address] [address] [address] Arden Magallon EGFR-NON AF BRITISH 40 mL/min/1.73m2 Critically low >=60 [facility] Comment on above: Performed By: #### B MP #### [facility] [address] [address] [address] Arden Magallon Glucose [Mass/Vol] 108 mg/dL Critically high 74-106 [facility] Comment on above: Performed By: #### B MP #### [facility] [address] [address] [address] Arden Magallon Potassium [Moles/Vol] 3.4 mmol/L Critically low 3.5-5.1 [facility] Comment on above: Performed By: #### B MP #### [facility] [address] [address] [address] Arden Magallon Sodium [Moles/Vol] 144 mmol/L Normal 136-145 [facility] Comment on above: Performed By: #### B MP #### [facility] [address] [address] [address] Arden Magallon Urea nitrogen [Mass/Vol] 28.0 mg/dL Critically high 7.0-18.0 [facility] Comment on above: Performed By: #### B MP #### [facility] [address] [address] [address] Arden Magallon Urea nitrogen/Creatinine [Mass ratio] 22.2 mg/mg Normal [facility] Comment on above: Performed By: #### B MP #### [facility] [address] [place] [address] Dr. Arden Magallon CARDIAC CINDY 3-6on 2 CK [Catalytic activity/Vol] 27 U/L Normal 26-192 [facility] Comment on above: Performed By: #### B MP #### [facility] [address] [place] [address] Dr. Arden Magallon CK.MB [Mass/Vol] 0.84 ng/mL Normal <=3.60 [facility] Comment on above: Performed By: #### B MP #### [facility] [address] [place] [address] Dr. Arden Magallon HSTROP 12.4 pg/mL Normal 4.0-51.3 [facility] Comment on above: Result Comment: CUT- OFF POINTS HAVE BEEN ESTABLISHED BASED ON THE FOURTH UNIVERSAL DEFINITIONS OF MYOCARDIAL INFARCTION. THE UPPER REFERENCE LIMIT (URL) OF TROPONIN, DEFINED THE 99TH PERCENTILE OF cTnI DISTRIBUTION IN A REFERENCE POPULATION, HAS BEEN CONFIRMED THE DECISION THRESHOLD FOR NM DIAGNOSIS. Performed By: #### B MP #### [facility] [address] [address] [address] Arden Magallon CARDIAC CINDY ADMITon 022 CK [Catalytic activity/Vol] 42 U/L Normal 26-192 [facility] Comment on above: Performed By: #### B MP #### [facility] [address] [address] [address] Arden Magallon CK.MB [Mass/Vol] 0.82 ng/mL Normal <=3.60 [facility] Comment on above: Performed By: #### B MP #### [facility] [address] [place] [address] Dr. Arden Magallon HSTROP 9.8 pg/mL Normal 4.0-51.3 [facility] Comment on above: Result Comment: CUT- OFF POINTS HAVE BEEN ESTABLISHED BASED ON THE FOURTH UNIVERSAL DEFINITIONS OF MYOCARDIAL INFARCTION. THE UPPER REFERENCE LIMIT (URL) OF TROPONIN, DEFINED THE 99TH PERCENTILE OF cTnI DISTRIBUTION IN A REFERENCE POPULATION, HAS BEEN CONFIRMED THE DECISION THRESHOLD FOR NM DIAGNOSIS. Performed By: #### B MP #### [facility] [address] [place] [address] Dr. Arden Magallon IKE 50 ng/mL Normal 9-82 [facility] Comment on above: Performed By: #### B MP #### [facility] [address] [place] [address] Dr. Arden Magallon CBC AUTO DIFFon 09-30-2022 BASO # 0.2 103/ul Critically high 0.0-0.1 [facility] Comment on above: Performed By: #### C BC #### [facility] [address] [place] [address] Dr. Arden Magallon Basophils/100 WBC (Bld) 2.2 % Critically high 0.2-2.0 [facility] Comment on above: Performed By: #### C BC #### [facility] [address] [place] [address] Dr. Arden Magallon EO # 1.3 103/ul Critically high 0.0-0.7 [facility] Comment on above: Performed By: #### C BC #### [facility] [address] [place] [address] Dr. Arden Magallon Eosinophils/100 WBC (Bld) 16.5 % Critically high 0.9-7.0 [facility] Comment on above: Performed By: #### C BC #### [facility] [address] [place] [address] Dr. Arden Magallon Erythrocyte distribution width (RBC) [Ratio] 14.3 % Normal 11.0-15.0 [facility] Comment on above: Performed By: #### C BC #### [facility] [address] [place] [address] Dr. Arden Magallon Hematocrit (Bld) [Volume fraction] 38.3 % Normal 36.0-48.0 [facility] Comment on above: Performed By: #### C BC #### [facility] [address] [place] [address] Dr. Arden Magallon Hemoglobin (Bld) [Mass/Vol] 12.6 g/dL Normal 12.0-16.0 [facility] Comment on above: Performed By: #### C BC #### [facility] [address] [place] [address] Dr. Arden Magallon IG # 0.03 10e3/ul Normal 0.00-0.03 [facility] Comment on above: Performed By: #### C BC #### [facility] [address] [place] [address] Dr. Arden Magallon IG % 0.4 % Normal 0.0-0.5 [facility] Comment on above: Performed By: #### C BC #### [facility] [address] [place] [address] Dr. Arden Magallon LYMPH # 2.4 103/ul Normal 1.2-3.8 [facility] Comment on above: Performed By: #### C BC #### [facility] [address] [place] [address] Dr. Arden Magallon Lymphocytes/100 WBC (Bld) 30.0 % Normal 20.5-60.0 [facility] Comment on above: Performed By: #### C BC #### [facility] [address] [place] [address] Dr. Arden Magallon MANUAL DIFF REQ NO Normal [facility] Comment on above: Performed By: #### C BC #### [facility] [address] [place] [address] Dr. Arden Magallon MCH (RBC) [Entitic mass] 30.7 pg Normal 26.7-34.0 [facility] Comment on above: Performed By: #### C BC #### [facility] [address] [place] [address] Dr. Arden Magallon MCHC (RBC) [Mass/Vol] 32.9 g/dL Normal 29.9-35.2 [facility] Comment on above: Performed By: #### C BC #### [facility] [address] [place] [address] Dr. Arden Magallon MCV (RBC) [Entitic vol] 93.4 fL Normal 81.0-99.0 [facility] Comment on above: Performed By: #### C BC #### [facility] [address] [place] [address] Dr. Arden Magallon MONO # 1.1 103/ul Critically high 0.3-0.8 [facility] Comment on above: Performed By: #### C BC #### [facility] [address] [place] [address] Dr. Arden Magallon Monocytes/100 WBC (Bld) 14.2 % Critically high 1.7-12.0 [facility] Comment on above: Performed By: #### C BC #### [facility] [address] [place] [address] Dr. Arden Magallon NEUT # 2.9 103/ul Normal 1.4-6.5 [facility] Comment on above: Performed By: #### C BC #### [facility] [address] [place] [address] Dr. Arden Magallon Neutrophils/100 WBC (Bld) 36.7 % Critically low 43.0-75.0 [facility] Comment on above: Performed By: #### C BC #### [facility] [address] [place] [address] Dr. Arden Magallon Platelet mean volume (Bld) [Entitic vol] 11.4 fL Normal 9.5-13.5 [facility] Comment on above: Performed By: #### C BC #### [facility] [address] [place] [address] Dr. Arden Magallon PLT 162 103/ul Normal 150-450 [facility] Comment on above: Performed By: #### C BC #### [facility] [address] [address] [address] Arden Magallon RBC 4.10 106/ul Critically low 4.20-5.40 [facility] Comment on above: Performed By: #### C BC #### [facility] [address] [place] [address] Dr. Arden Magallon WBC 8.0 103/ul Normal 4.0-11.0 [facility] Comment on above: Performed By: #### C BC #### [facility] [address] [place] [address] Dr. Arden Magallon PROF CHEM 8 (BAS METB)on Anion gap [Moles/Vol] 11.8 mmol/L Normal [facility] Comment on above: Performed By: #### B MP #### [facility] [address] [place] [address] Dr. Arden Magallon Calcium [Mass/Vol] 9.7 mg/dL Normal 8.5-10.1 [facility] Comment on above: Performed By: #### B MP #### [facility] [address] [place] [address] Dr. Arden Magallon Chloride [Moles/Vol] 105 mmol/L Normal 98-107 [facility] Comment on above: Performed By: #### B MP #### [facility] [address] [place] [address] Dr. Arden Magallon CO2 [Moles/Vol] 25.0 mmol/L Normal 21.0-32.0 [facility] Comment on above: Performed By: #### B MP #### [facility] [address] [address] [address] Arden Magallon Creatinine [Mass/Vol] 1.07 mg/dL Critically high 0.55-1.02 [facility] Comment on above: Performed By: #### B MP #### [facility] [address] [address] [address] Arden Magallon EGFR-AF BRITISH 59 mL/min/1.73m2 Critically low >=60 [facility] Comment on above: Performed By: #### B MP #### [facility] [address] [address] [address] Arden Magallon EGFR-NON AF BRITISH 49 mL/min/1.73m2 Critically low >=60 [facility] Comment on above: Performed By: #### B MP #### [facility] [address] [address] [address] Arden Magallon Glucose [Mass/Vol] 106 mg/dL Normal 74-106 [facility] Comment on above: Performed By: #### B MP #### [facility] [address] [address] [address] Arden Magallon Potassium [Moles/Vol] 3.8 mmol/L Normal 3.5-5.1 [facility] Comment on above: Performed By: #### B MP #### [facility] [address] [address] [address] Arden Magallon Sodium [Moles/Vol] 138 mmol/L Normal 136-145 [facility] Comment on above: Performed By: #### B MP #### [facility] [address] [address] [address] Arden Magallon Urea nitrogen [Mass/Vol] 18.0 mg/dL Normal 7.0-18.0 [facility] Comment on above: Performed By: #### B MP #### [facility] [address] [address] [address] Arden Magallon Urea nitrogen/Creatinine [Mass ratio] 16.8 mg/mg Normal [facility] Comment on above: Performed By: #### B MP #### [facility] [address] [address] [address] Arden Magallon CBC AUTO DIFFon 09-26-2022 BASO # 0.2 103/ul Critically high 0.0-0.1 [facility] Comment on above: Performed By: #### C BC #### [facility] [address] [address] [address] Arden Magallon Basophils/100 WBC (Bld) 2.1 % Critically high 0.2-2.0 [facility] Comment on above: Performed By: #### C BC #### [facility] [address] [address] [address] Arden Magallon EO # 1.5 103/ul Critically high 0.0-0.7 [facility] Comment on above: Performed By: #### C BC #### [facility] [address] [place] [address] Dr. Arden Magallon Eosinophils/100 WBC (Bld) 16.6 % Critically high 0.9-7.0 [facility] Comment on above: Performed By: #### C BC #### [facility] [address] [place] [address] Dr. Arden Magallon Erythrocyte distribution width (RBC) [Ratio] 14.1 % Normal 11.0-15.0 [facility] Comment on above: Performed By: #### C BC #### [facility] [address] [place] [address] Dr. Arden Magallon Hematocrit (Bld) [Volume fraction] 37.7 % Normal 36.0-48.0 [facility] Comment on above: Performed By: #### C BC #### [facility] [address] [place] [address] Dr. Arden Magallon Hemoglobin (Bld) [Mass/Vol] 12.5 g/dL Normal 12.0-16.0 [facility] Comment on above: Performed By: #### C BC #### [facility] [address] [place] [address] Dr. Arden Magallon IG # 0.04 10e3/ul Critically high 0.00-0.03 [facility] Comment on above: Performed By: #### C BC #### [facility] [address] [place] [address] Dr. Arden Magallon IG % 0.4 % Normal 0.0-0.5 [facility] Comment on above: Performed By: #### C BC #### [facility] [address] [place] [address] Dr. Arden Magallon LYMPH # 1.8 103/ul Normal 1.2-3.8 [facility] Comment on above: Performed By: #### C BC #### [facility] [address] [place] [address] Dr. Arden Magallon Lymphocytes/100 WBC (Bld) 19.6 % Critically low 20.5-60.0 [facility] Comment on above: Performed By: #### C BC #### [facility] [address] [place] [address] Dr. Arden Magallon MANUAL DIFF REQ NO Normal [facility] Comment on above: Performed By: #### C BC #### [facility] [address] [place] [address] Dr. Arden Magallon MCH (RBC) [Entitic mass] 31.1 pg Normal 26.7-34.0 [facility] Comment on above: Performed By: #### C BC #### [facility] [address] [place] [address] Dr. Arden Magallon MCHC (RBC) [Mass/Vol] 33.2 g/dL Normal 29.9-35.2 [facility] Comment on above: Performed By: #### C BC #### [facility] [address] [place] [address] Dr. Arden Magallon MCV (RBC) [Entitic vol] 93.8 fL Normal 81.0-99.0 [facility] Comment on above: Performed By: #### C BC #### [facility] [address] [place] [address] Dr. Arden Magallon MONO # 1.1 103/ul Critically high 0.3-0.8 [facility] Comment on above: Performed By: #### C BC #### [facility] [address] [address] [address] Arden Magallon Monocytes/100 WBC (Bld) 12.1 % Critically high 1.7-12.0 [facility] Comment on above: Performed By: #### C BC #### [facility] [address] [address] [address] Arden Magallon NEUT # 4.6 103/ul Normal 1.4-6.5 [facility] Comment on above: Performed By: #### C BC #### [facility] [address] [address] [address] Arden Magallon Neutrophils/100 WBC (Bld) 49.2 % Normal 43.0-75.0 [facility] Comment on above: Performed By: #### C BC #### [facility] [address] [place] [address] Dr. Arden Magallon Platelet mean volume (Bld) [Entitic vol] 10.8 fL Normal 9.5-13.5 [facility] Comment on above: Performed By: #### C BC #### [facility] [address] [place] [address] Dr. Arden Magallon PLT 149 103/ul Critically low 150-450 [facility] Comment on above: Performed By: #### C BC #### [facility] [address] [place] [address] Dr. Arden Magallon RBC 4.02 106/ul Critically low 4.20-5.40 [facility] Comment on above: Performed By: #### C BC #### [facility] [address] [place] [address] Dr. Arden Magallon WBC 9.3 103/ul Normal 4.0-11.0 [facility] Comment on above: Performed By: #### C BC #### [facility] [address] [place] [address] Dr. Arden Magallon [facility]08 SARS-CoV-2 (COVID-19) RNA ISABELLA+probe Ql (Unsp spec) Not detected Normal NOT DETECTED [facility] Comment on above: Result Comment: This test is not yet approved or cleared by the [place] FDA. When there are no FDA-approved or cleared tests available, and other criteria are met, FDA can make tests available under an emergency access mechanism called an Emergency Use Authorization (EUA). The EUA for this test is supported by the [employer] of Health and Human Service's (HHS's) declaration that circumstances exist to justify the emergency use of in vitro diagnostics for the detection and/or diagnosis of the virus that causes COVID-19. This EUA will remain in effect (meaning this test can be used) for the duration of the COVID-19 declaration justifying emergency of IVDs, unless it is terminated or revoked by FDA (after which the test may no longer be used). When diagnostic testing is negative, the possibility of a false negative should be considered in the context of a patient's recent exposures and the presence of clinical signs and symptoms consistent with SARS-CoV-2. Performed By: #### C BC #### [facility] [address] [place] [address] Dr. Arden Magallon INFLUENZA A AND B [facility] 09-26 [facility] SEE BELOW Normal [facility] Comment on above: Result Comment: Nega tive for Flu A protein angiten. Infection due to Flu A cannot be ruled out. Flu A angiten in the sample may be below the detection limit of the test. Performed By: #### C BC #### [facility] [address] [place] [address] Dr. Arden Magall[facility]OW Normal [facility] Comment on above: Result Comment: Nega tive for Flu B protein antigen. Infection due to Flu B cannot be ruled out. Flu B antigen in the sample may be below the detection limit of the test. Performed By: #### C BC #### [facility] [address] [place] [address] Dr. Arden Magallon INFLUENZA A AG Negative Normal NEGATIVE SEE COMMENT [facility] Comment on above: Performed By: #### C BC #### [facility] [address] [place] [address] Dr. Arden Magallon INFLUENZA B AG Negative Normal NEGATIVE SEE COMMENT [facility] Comment on above: Performed By: #### C BC #### [facility] [address] [address] [address] Arden Magallon INTERNAL CONTROLS Within Normal Limits Normal Wi thin Normal Limits [facility] Comment on above: Performed By: #### C BC #### [facility] [address] [address] [address] Arden Magallon PROF CHEM 8 (BAS METB)on Anion gap [Moles/Vol] 10.8 mmol/L Normal [facility] Comment on above: Performed By: #### P T, DDIM #### [facility] [address] [address] [address] Arden Magallon Calcium [Mass/Vol] 9.3 mg/dL Normal 8.5-10.1 [facility] Comment on above: Performed By: #### P T, DDIM #### [facility] [address] [place] [address] Dr. Arden Magallon Chloride [Moles/Vol] 107 mmol/L Normal 98-107 [facility] Comment on above: Performed By: #### P T, DDIM #### [facility] [address] [address] [address] Arden Magallon CO2 [Moles/Vol] 28.0 mmol/L Normal 21.0-32.0 [facility] Comment on above: Performed By: #### P T, DDIM #### [facility] [address] [address] [address] Arden Magallon Creatinine [Mass/Vol] 0.98 mg/dL Normal 0.55-1.02 [facility] Comment on above: Performed By: #### P T, DDIM #### [facility] [address] [address] [address] Arden Magallon EGFR-AF BRITISH >60 Normal >=60 [facility] Comment on above: Performed By: #### P T, DDIM #### [facility] [address] [place] [address] Dr. Arden Magallon EGFR-NON AF BRITISH 54 mL/min/1.73m2 Critically low >=60 [facility] Comment on above: Performed By: #### P T, DDIM #### [facility] [address] [address] [address] Arden Magallon Glucose [Mass/Vol] 111 mg/dL Critically high 74-106 [facility] Comment on above: Performed By: #### P T, DDIM #### [facility] [address] [address] [address] Arden Magallon Potassium [Moles/Vol] 3.8 mmol/L Normal 3.5-5.1 [facility] Comment on above: Performed By: #### P T, DDIM #### [facility] [address] [address] [address] Arden Magallon Sodium [Moles/Vol] 142 mmol/L Normal 136-145 [facility] Comment on above: Performed By: #### P T, DDIM #### [facility] [address] [address] [address] Arden Magallon Urea nitrogen [Mass/Vol] 15.0 mg/dL Normal 7.0-18.0 [facility] Comment on above: Performed By: #### P T, DDIM #### [facility] [address] [address] [address] Arden Magallon Urea nitrogen/Creatinine [Mass ratio] 15.3 mg/mg Normal [facility] Comment on above: Performed By: #### P T, DDIM #### [facility] [address] [address] [address] Arden Magallon XR CHEST 1 Von 09-26-2022 XR CHEST 1 V EXAMINATION: XR CHEST 1 V HISTORY: SHORTNESS OF BREATH COMPARISON: XR chest 09/18/2022 FINDINGS: LUNGS: Mild haziness and stranding within lung bases. VASCULATURE: No increased pulmonary vasculature. PLEURA: No pneumothorax, effusion, or pleural thickening. CARDIAC: No cardiomegaly or cardiac silhouette abnormality. MEDIASTINUM: No visible mass or adenopathy. BONES: No fracture or visible bone lesion. OTHER: Negative. IMPRESSION: 1. Trace amount of bibasilar infiltrates versus atelectasis. Electronically authenticated by: HARJINDER RAMIREZ Date: 2022-09-26 10:22 Normal [facility] CBC AUTO DIFFon 09-21-2022 BASO # 0.2 103/ul Critically high 0.0-0.1 [facility] Comment on above: Performed By: #### C BC #### [facility] [address] [address] [address] Arden Magallon Basophils/100 WBC (Bld) 2.0 % Normal 0.2-2.0 [facility] Comment on above: Performed By: #### C BC #### [facility] [address] [address] [address] Arden Magallon EO # 0.8 103/ul Critically high 0.0-0.7 [facility] Comment on above: Performed By: #### C BC #### [facility] [address] [address] [address] Arden Magallon Eosinophils/100 WBC (Bld) 9.7 % Critically high 0.9-7.0 [facility] Comment on above: Performed By: #### C BC #### [facility] [address] [address] [address] Arden Magallon Erythrocyte distribution width (RBC) [Ratio] 14.2 % Normal 11.0-15.0 [facility] Comment on above: Performed By: #### C BC #### [facility] [address] [address] [address] Arden Magallon Hematocrit (Bld) [Volume fraction] 39.2 % Normal 36.0-48.0 [facility] Comment on above: Performed By: #### C BC #### [facility] [address] [address] [address] Arden Magallon Hemoglobin (Bld) [Mass/Vol] 12.7 g/dL Normal 12.0-16.0 [facility] Comment on above: Performed By: #### C BC #### [facility] [address] [address] [address] Arden Magallon IG # 0.04 10e3/ul Critically high 0.00-0.03 [facility] Comment on above: Performed By: #### C BC #### [facility] [address] [place] [address] Dr. Arden Magallon IG % 0.5 % Normal 0.0-0.5 [facility] Comment on above: Performed By: #### C BC #### [facility] [address] [place] [address] Dr. Arden Magallon LYMPH # 1.7 103/ul Normal 1.2-3.8 [facility] Comment on above: Performed By: #### C BC #### [facility] [address] [place] [address] Dr. Arden Magallon Lymphocytes/100 WBC (Bld) 19.2 % Critically low 20.5-60.0 [facility] Comment on above: Performed By: #### C BC #### [facility] [address] [place] [address] Dr. Arden Magallon MANUAL DIFF REQ NO Normal [facility] Comment on above: Performed By: #### C BC #### [facility] [address] [place] [address] Dr. Arden Magallon MCH (RBC) [Entitic mass] 31.1 pg Normal 26.7-34.0 [facility] Comment on above: Performed By: #### C BC #### [facility] [address] [place] [address] Dr. Arden Magallon MCHC (RBC) [Mass/Vol] 32.4 g/dL Normal 29.9-35.2 [facility] Comment on above: Performed By: #### C BC #### [facility] [address] [place] [address] Dr. Arden Magallon MCV (RBC) [Entitic vol] 96.1 fL Normal 81.0-99.0 [facility] Comment on above: Performed By: #### C BC #### [facility] [address] [place] [address] Dr. Arden Magallon MONO # 0.8 103/ul Normal 0.3-0.8 [facility] Comment on above: Performed By: #### C BC #### [facility] [address] [place] [address] Dr. Arden Magallon Monocytes/100 WBC (Bld) 9.5 % Normal 1.7-12.0 [facility] Comment on above: Performed By: #### C BC #### [facility] [address] [place] [address] Dr. Arden Magallon NEUT # 5.2 103/ul Normal 1.4-6.5 [facility] Comment on above: Performed By: #### C BC #### [facility] [address] [place] [address] Dr. Arden Magallon Neutrophils/100 WBC (Bld) 59.1 % Normal 43.0-75.0 [facility] Comment on above: Performed By: #### C BC #### [facility] [address] [place] [address] Dr. Arden Magallon Platelet mean volume (Bld) [Entitic vol] 11.0 fL Normal 9.5-13.5 [facility] Comment on above: Performed By: #### C BC #### [facility] [address] [place] [address] Dr. Arden Magallon PLT 167 103/ul Normal 150-450 [facility] Comment on above: Performed By: #### C BC #### [facility] [address] [place] [address] Dr. Arden Magallon RBC 4.08 106/ul Critically low 4.20-5.40 [facility] Comment on above: Performed By: #### C BC #### [facility] [address] [place] [address] Dr. Arden Magallon WBC 8.7 103/ul Normal 4.0-11.0 [facility] Comment on above: Performed By: #### C BC #### [facility] [address] [place] [address] Dr. Arden Magallon PROF CHEM 8 (BAS METB)on Anion gap [Moles/Vol] 10.4 mmol/L Normal [facility] Comment on above: Performed By: #### B MP #### [facility] [address] [place] [address] Dr. Arden Magallon Calcium [Mass/Vol] 9.9 mg/dL Normal 8.5-10.1 [facility] Comment on above: Performed By: #### B MP #### [facility] [address] [address] [address] Arden Magallon Chloride [Moles/Vol] 104 mmol/L Normal 98-107 [facility] Comment on above: Performed By: #### B MP #### [facility] [address] [address] [address] Arden Magallon CO2 [Moles/Vol] 28.0 mmol/L Normal 21.0-32.0 [facility] Comment on above: Performed By: #### B MP #### [facility] [address] [address] [address] Arden Magallon Creatinine [Mass/Vol] 1.20 mg/dL Critically high 0.55-1.02 [facility] Comment on above: Performed By: #### B MP #### [facility] [address] [address] [address] Arden Magallon EGFR-AF BRITISH 52 mL/min/1.73m2 Critically low >=60 [facility] Comment on above: Performed By: #### B MP #### [facility] [address] [address] [address] Arden Magallon EGFR-NON AF BRITISH 43 mL/min/1.73m2 Critically low >=60 [facility] Comment on above: Performed By: #### B MP #### [facility] [address] [address] [address] Arden Magallon Glucose [Mass/Vol] 133 mg/dL Critically high 74-106 [facility] Comment on above: Performed By: #### B MP #### [facility] [address] [address] [address] Arden Magallon Potassium [Moles/Vol] 3.4 mmol/L Critically low 3.5-5.1 [facility] Comment on above: Performed By: #### B MP #### [facility] [address] [address] [address] Arden Magallon Sodium [Moles/Vol] 139 mmol/L Normal 136-145 [facility] Comment on above: Performed By: #### B MP #### [facility] [address] [place] [address] Dr. Arden Magallon Urea nitrogen [Mass/Vol] 19.0 mg/dL Critically high 7.0-18.0 [facility] Comment on above: Performed By: #### B MP #### [facility] [address] [place] [address] Dr. Arden Magallon Urea nitrogen/Creatinine [Mass ratio] 15.8 mg/mg Normal [facility] Comment on above: Performed By: #### B MP #### [facility] [address] [place] [address] Dr. Arden Magallon TSHon 09-21-2022 TSH 1.918 uIU/mL Normal 0.358-3.740 [facility] Comment on above: Performed By: #### B MP #### [facility] [address] [place] [address] Dr. Arden Magallon BNPon 09-18-2022 Natriuretic peptide B (Bld) [Mass/Vol] 366.0 pg/mL Normal <=1,800.0 [facility] Comment on above: Performed By: #### B [employer], CMP #### [facility] [address] [place] [address] Dr. Arden Magallon CBC AUTO DIFFon 09-18-2022 BASO # 0.1 103/ul Normal 0.0-0.1 [facility] Comment on above: Performed By: #### C BC #### [facility] [address] [place] [address] Dr. Arden Magallon Basophils/100 WBC (Bld) 1.7 % Normal 0.2-2.0 [facility] Comment on above: Performed By: #### C BC #### [facility] [address] [place] [address] Dr. Arden Magallon EO # 0.7 103/ul Normal 0.0-0.7 [facility] Comment on above: Performed By: #### C BC #### [facility] [address] [place] [address] Dr. Arden Magallon Eosinophils/100 WBC (Bld) 9.1 % Critically high 0.9-7.0 [facility] Comment on above: Performed By: #### C BC #### [facility] [address] [place] [address] Dr. Arden Magallon Erythrocyte distribution width (RBC) [Ratio] 14.4 % Normal 11.0-15.0 [facility] Comment on above: Performed By: #### C BC #### [facility] [address] [place] [address] Dr. Arden Magallon Hematocrit (Bld) [Volume fraction] 39.0 % Normal 36.0-48.0 [facility] Comment on above: Performed By: #### C BC #### [facility] [address] [place] [address] Dr. Arden Magallon Hemoglobin (Bld) [Mass/Vol] 12.8 g/dL Normal 12.0-16.0 [facility] Comment on above: Performed By: #### C BC #### [facility] [address] [place] [address] Dr. Arden Magallon IG # 0.02 10e3/ul Normal 0.00-0.03 [facility] Comment on above: Performed By: #### C BC #### [facility] [address] [place] [address] Dr. Arden Magallon IG % 0.3 % Normal 0.0-0.5 [facility] Comment on above: Performed By: #### C BC #### [facility] [address] [place] [address] Dr. Arden Magallon LYMPH # 1.8 103/ul Normal 1.2-3.8 [facility] Comment on above: Performed By: #### C BC #### [facility] [address] [place] [address] Dr. Arden Magallon Lymphocytes/100 WBC (Bld) 23.6 % Normal 20.5-60.0 [facility] Comment on above: Performed By: #### C BC #### [facility] [address] [place] [address] Dr. Arden Magallon MANUAL DIFF REQ NO Normal [facility] Comment on above: Performed By: #### C BC #### [facility] [address] [place] [address] Dr. Arden Magallon MCH (RBC) [Entitic mass] 31.0 pg Normal 26.7-34.0 [facility] Comment on above: Performed By: #### C BC #### [facility] [address] [place] [address] Dr. Arden Magallon MCHC (RBC) [Mass/Vol] 32.8 g/dL Normal 29.9-35.2 [facility] Comment on above: Performed By: #### C BC #### [facility] [address] [place] [address] Dr. Arden Magallon MCV (RBC) [Entitic vol] 94.4 fL Normal 81.0-99.0 [facility] Comment on above: Performed By: #### C BC #### [facility] [address] [place] [address] Dr. Arden Magallon MONO # 1.1 103/ul Critically high 0.3-0.8 [facility] Comment on above: Performed By: #### C BC #### [facility] [address] [place] [address] Dr. Arden Magallon Monocytes/100 WBC (Bld) 15.2 % Critically high 1.7-12.0 [facility] Comment on above: Performed By: #### C BC #### [facility] [address] [place] [address] Dr. Arden Magallon NEUT # 3.8 103/ul Normal 1.4-6.5 [facility] Comment on above: Performed By: #### C BC #### [facility] [address] [place] [address] Dr. Arden Magallon Neutrophils/100 WBC (Bld) 50.1 % Normal 43.0-75.0 [facility] Comment on above: Performed By: #### C BC #### [facility] [address] [address] [address] Arden Magallon Platelet mean volume (Bld) [Entitic vol] 11.0 fL Normal 9.5-13.5 [facility] Comment on above: Performed By: #### C BC #### [facility] [address] [address] [address] Arden Magallon PLT 149 103/ul Critically low 150-450 [facility] Comment on above: Performed By: #### C BC #### [facility] [address] [address] [address] Arden Magallon RBC 4.13 106/ul Critically low 4.20-5.40 [facility] Comment on above: Performed By: #### C BC #### [facility] [address] [address] [address] Arden Magallon WBC 7.5 103/ul Normal 4.0-11.0 [facility] Comment on above: Performed By: #### C BC #### [facility] [address] [place] [address] Dr. Arden Magallon D-DIMERon 09-18-2022 D-DIMER 0.32 mg/L FEU Normal <=0.59 [facility] Comment on above: Performed By: #### P T, DDIM #### [facility] [address] [address] [address] Arden Magallon D-DIMER COMMENTS SEE BELOW Normal [facility] Comment on above: Result Comment: Incr eases in D-Dimer concentration observed with thromboembolic events can be variable due to localization, size, and age of the thrombus. Therefore, a thromboembolic event cannot be diagnosed with certainty on the basis of the reference range. D-Dimers may also be elevated for a variety of disorders including: advanced age, , coronary disease, cancer, liver disease, infection, inflammation, hematoma, DIC, trauma, post-surgery, diabetes, thrombolytic or anticoagulant therapy, stress, and generalized hospitalization. Performed By: #### P T, DDIM #### [facility] [address] [place] [address] Dr. Arden Magallon PROF 14(COMP METB)on 022 Albumin [Mass/Vol] 3.5 g/dL Normal 3.4-5.0 [facility] Comment on above: Performed By: #### B [employer]IC, CMP #### [facility] [address] [place] [address] Dr. Arden Magallon Albumin/Globulin [Mass ratio] 1.2 {ratio} Normal [facility] Comment on above: Performed By: #### B [employer]CH[employer]IC, CMP #### [facility] [address] [address] [address] Arden Magallon ALP [Catalytic activity/Vol] 57 U/L Normal 46-116 [facility] Comment on above: Performed By: #### B [employer] CONDITION[employer]CH[employer]IC, CMP #### [facility] [address] [place] [address] Dr. Arden Magallon ALT [Catalytic activity/Vol] 16 U/L Normal 14-59 [facility] Comment on above: Performed By: #### B [employer]CH[employer]IC, CMP #### [facility] [address] [place] [address] Dr. Arden Magallon Anion gap [Moles/Vol] 9.1 mmol/L Normal [facility] Comment on above: Performed By: #### B [employer]CH[employer]IC, CMP #### [facility] [address] [place] [address] Dr. Arden Magallon AST [Catalytic activity/Vol] 17 U/L Normal 15-37 [facility] Comment on above: Performed By: #### B [employer]CH[employer]IC, CMP #### [facility] [address] [place] [address] Dr. Arden Magallon Bilirubin [Mass/Vol] 0.3 mg/dL Normal 0.2-1.0 [facility] Comment on above: Performed By: #### B [employer]CH[employer]IC, CMP #### [facility] [address] [place] [address] Dr. Arden Magallon Calcium [Mass/Vol] 9.6 mg/dL Normal 8.5-10.1 [facility] Comment on above: Performed By: #### B [employer] CONDITION[employer] MECH[employer]IC, CMP #### [facility] [address] [place] [address] Dr. Arden Magallon Chloride [Moles/Vol] 106 mmol/L Normal 98-107 [facility] Comment on above: Performed By: #### B [employer] MECH[employer]IC, CMP #### [facility] [address] [place] [address] Dr. Arden Magallon CO2 [Moles/Vol] 24.9 mmol/L Normal 21.0-32.0 [facility] Comment on above: Performed By: #### B [employer] MECH[employer]IC, CMP #### [facility] [address] [place] [address] Dr. Arden Magallon Creatinine [Mass/Vol] 1.06 mg/dL Critically high 0.55-1.02 [facility] Comment on above: Performed By: #### B [employer]CH[employer]IC, CMP #### [facility] [address] [place] [address] Dr. Arden Magallon EGFR-AF BRITISH =60 Normal >=60 [facility] Comment on above: Performed By: #### B [employer] CONDITION[employer] MECH[employer]IC, CMP #### [facility] [address] [place] [address] Dr. Arden Magallon EGFR-NON AF BRITISH 49 mL/min/1.73m2 Critically low >=60 [facility] Comment on above: Performed By: #### B [employer] CONDITION[employer] MECHANIC, CMP #### [facility] [address] [place] [address] Dr. Arden Magallon Globulin (S) [Mass/Vol] 3.0 g/dL Normal [facility] Comment on above: Performed By: #### B [employer] MECHANIC, CMP #### [facility] [address] [place] [address] Dr. Arden Magallon Glucose [Mass/Vol] 111 mg/dL Critically high 74-106 [facility] Comment on above: Performed By: #### B [employer] CONDITION[employer] MECHANIC, CMP #### [facility] [address] [place] [address] Dr. Arden Magallon Potassium [Moles/Vol] 4.0 mmol/L Normal 3.5-5.1 [facility] Comment on above: Performed By: #### B [employer] MECH[employer]IC, CMP #### [facility] [address] [place] [address] Dr. Arden Magallon Protein [Mass/Vol] 6.5 g/dL Normal 6.4-8.2 [facility] Comment on above: Performed By: #### B [employer] MECH[employer]IC, CMP #### [facility] [address] [address] [address] Arden Magallon Sodium [Moles/Vol] 136 mmol/L Normal 136-145 [facility] Comment on above: Performed By: #### B [employer] CONDITION[employer] MECH[employer]IC, CMP #### [facility] [address] [address] [address] Arden Magallon Urea nitrogen [Mass/Vol] 16.0 mg/dL Normal 7.0-18.0 [facility] Comment on above: Performed By: #### B [employer] CONDITION[employer] MECHANIC, CMP #### [facility] [address] [address] [address] Arden Magallon Urea nitrogen/Creatinine [Mass ratio] 15.1 mg/mg Normal [facility] Comment on above: Performed By: #### B [employer] CONDITION[employer] MECH[employer]IC, CMP #### [facility] [address] [address] [address] Arden Magallon TROPONIN, HIGH SENSITIVITYon 09-18-2022 HSTROP 8.3 pg/mL Normal 4.0-51.3 [facility] Comment on above: Result Comment: CUT- OFF POINTS HAVE BEEN ESTABLISHED BASED ON THE FOURTH UNIVERSAL DEFINITIONS OF MYOCARDIAL INFARCTION. THE UPPER REFERENCE LIMIT (URL) OF TROPONIN, DEFINED THE 99TH PERCENTILE OF cTnI DISTRIBUTION IN A REFERENCE POPULATION, HAS BEEN CONFIRMED THE DECISION THRESHOLD FOR NM DIAGNOSIS. Performed By: #### B [employer] CONDITION[employer] MECHANIC, CMP #### [facility] [address] [address] [address] Arden Magallon XR CHEST 1 Von 09-18-2022 XR CHEST 1 V EXAMINATION: XR CHEST 1 V, 09/18/2022 3:26 PM EST HISTORY: CHEST PAIN, UNSPECIFIED COMPARISON: 08/26/2022 TECHNIQUE: AP portable view of the chest performed. FINDINGS: Medical devices: None. Cardiomediastinal silhouette is within normal limits. Hyperexpansion suggests emphysema. Mild nonspecific left basilar opacity and blunting of the left costophrenic angle appears grossly unchanged since previous chest x-ray 08/26/2022. No new pulmonary opacities. No pneumothorax. IMPRESSION: 1. Mild nonspecific left basilar opacity and blunting of the left costophrenic angle appears grossly unchanged since previous chest x-ray 08/26/2022, possibly small effusion or pleural parenchymal scarring. No new pulmonary opacities. Electronically authenticated by: BERNIE NAVARRO Date: 2022-09-18 16:11 Normal [facility] CBC AUTO DIFFon 09-11-2022 BASO # 0.1 103/ul Normal 0.0-0.1 [facility] Comment on above: Performed By: #### B MP #### [facility] [address] [address] [address] Arden Magallon Basophils/100 WBC (Bld) 2.3 % Critically high 0.2-2.0 [facility] Comment on above: Performed By: #### B MP #### [facility] [address] [place] [address] Dr. Arden Magallon EO # 0.5 103/ul Normal 0.0-0.7 [facility] Comment on above: Performed By: #### B MP #### [facility] [address] [address] [address] Arden Magallon Eosinophils/100 WBC (Bld) 8.0 % Critically high 0.9-7.0 [facility] Comment on above: Performed By: #### B MP #### [facility] [address] [address] [address] Arden Magallon Erythrocyte distribution width (RBC) [Ratio] 13.8 % Normal 11.0-15.0 [facility] Comment on above: Performed By: #### B MP #### [facility] [address] [address] [address] Arden Magallon Hematocrit (Bld) [Volume fraction] 40.5 % Normal 36.0-48.0 [facility] Comment on above: Performed By: #### B MP #### [facility] [address] [address] [address] Arden Magallon Hemoglobin (Bld) [Mass/Vol] 13.5 g/dL Normal 12.0-16.0 [facility] Comment on above: Performed By: #### B MP #### [facility] [address] [address] [address] Arden Magallon IG # 0.01 10e3/ul Normal 0.00-0.03 [facility] Comment on above: Performed By: #### B MP #### [facility] [address] [place] [address] Dr. Arden Magallon IG % 0.2 % Normal 0.0-0.5 [facility] Comment on above: Performed By: #### B MP #### [facility] [address] [place] [address] Dr. Arden Magallon LYMPH # 1.5 103/ul Normal 1.2-3.8 [facility] Comment on above: Performed By: #### B MP #### [facility] [address] [place] [address] Dr. Arden Magallon Lymphocytes/100 WBC (Bld) 24.9 % Normal 20.5-60.0 [facility] Comment on above: Performed By: #### B MP #### [facility] [address] [place] [address] Dr. Arden Magallon MANUAL DIFF REQ NO Normal [facility] Comment on above: Performed By: #### B MP #### [facility] [address] [place] [address] Dr. Arden Magallon MCH (RBC) [Entitic mass] 31.1 pg Normal 26.7-34.0 [facility] Comment on above: Performed By: #### B MP #### [facility] [address] [place] [address] Dr. Arden Magallon MCHC (RBC) [Mass/Vol] 33.3 g/dL Normal 29.9-35.2 [facility] Comment on above: Performed By: #### B MP #### [facility] [address] [place] [address] Dr. Arden Magallon MCV (RBC) [Entitic vol] 93.3 fL Normal 81.0-99.0 [facility] Comment on above: Performed By: #### B MP #### [facility] [address] [address] [address] Arden Magallon MONO # 1.0 103/ul Critically high 0.3-0.8 [facility] Comment on above: Performed By: #### B MP #### [facility] [address] [address] [address] Arden Magallon Monocytes/100 WBC (Bld) 16.0 % Critically high 1.7-12.0 [facility] Comment on above: Performed By: #### B MP #### [facility] [address] [address] [address] Arden Magallon NEUT # 2.9 103/ul Normal 1.4-6.5 [facility] Comment on above: Performed By: #### B MP #### [facility] [address] [place] [address] Dr. Arden Magallon Neutrophils/100 WBC (Bld) 48.6 % Normal 43.0-75.0 [facility] Comment on above: Performed By: #### B MP #### [facility] [address] [place] [address] Dr. Arden Magallon Platelet mean volume (Bld) [Entitic vol] 10.8 fL Normal 9.5-13.5 [facility] Comment on above: Performed By: #### B MP #### [facility] [address] [place] [address] Dr. Arden Magallon PLT 138 103/ul Critically low 150-450 [facility] Comment on above: Performed By: #### B MP #### [facility] [address] [place] [address] Dr. Arden Magallon RBC 4.34 106/ul Normal 4.20-5.40 [facility] Comment on above: Performed By: #### B MP #### [facility] [address] [place] [address] Dr. Arden Magallon WBC 6.0 103/ul Normal 4.0-11.0 [facility] Comment on above: Performed By: #### B MP #### [facility] [address] [place] [address] Dr. Arden Magallon PROF CHEM 8 (BAS METB)on Anion gap [Moles/Vol] 9.0 mmol/L Normal [facility] Comment on above: Performed By: #### P T, DDIM #### [facility] [address] [place] [address] Dr. Arden Magallon Calcium [Mass/Vol] 9.6 mg/dL Normal 8.5-10.1 [facility] Comment on above: Performed By: #### P T, DDIM #### [facility] [address] [address] [address] Arden Magallon Chloride [Moles/Vol] 105 mmol/L Normal 98-107 [facility] Comment on above: Performed By: #### P T, DDIM #### [facility] [address] [place] [address] Dr. Arden Magallon CO2 [Moles/Vol] 29.1 mmol/L Normal 21.0-32.0 [facility] Comment on above: Performed By: #### P T, DDIM #### [facility] [address] [address] [address] Arden Magallon Creatinine [Mass/Vol] 1.00 mg/dL Normal 0.55-1.02 [facility] Comment on above: Performed By: #### P T, DDIM #### [facility] [address] [place] [address] Dr. Arden Magallon EGFR-AF BRITISH >60 Normal >=60 [facility] Comment on above: Performed By: #### P T, DDIM #### [facility] [address] [address] [address] Arden Magallon EGFR-NON AF BRITISH 53 mL/min/1.73m2 Critically low >=60 [facility] Comment on above: Performed By: #### P T, DDIM #### [facility] [address] [place] [address] Dr. Arden Magallon Glucose [Mass/Vol] 116 mg/dL Critically high 74-106 [facility] Comment on above: Performed By: #### P T, DDIM #### [facility] [address] [place] [address] Dr. Arden Magallon Potassium [Moles/Vol] 4.1 mmol/L Normal 3.5-5.1 [facility] Comment on above: Performed By: #### P T, DDIM #### [facility] [address] [place] [address] Dr. Arden Magallon Sodium [Moles/Vol] 139 mmol/L Normal 136-145 [facility] Comment on above: Performed By: #### P T, DDIM #### [facility] [address] [place] [address] Dr. Arden Magallon Urea nitrogen [Mass/Vol] 15.0 mg/dL Normal 7.0-18.0 [facility] Comment on above: Performed By: #### P T, DDIM #### [facility] [address] [place] [address] Dr. Arden Magallon Urea nitrogen/Creatinine [Mass ratio] 15.0 mg/mg Normal [facility] Comment on above: Performed By: #### P T, DDIM #### [facility] [address] [place] [address] Dr. Arden Magallon CBC AUTO DIFFon 08-30-2022 BASO # 0.2 103/ul Critically high 0.0-0.1 [facility] Comment on above: Performed By: #### B AUT[employer], CMP #### [facility] [address] [place] [address] Dr. Arden Magallon Basophils/100 WBC (Bld) 2.7 % Critically high 0.2-2.0 [facility] Comment on above: Performed By: #### B [employer], CMP #### [facility] [address] [place] [address] Dr. Arden Magallon EO # 0.5 103/ul Normal 0.0-0.7 [facility] Comment on above: Performed By: #### B [employer] CONDITION[employer]CH[employer]IC, CMP #### [facility] [address] [place] [address] Dr. Arden Magallon Eosinophils/100 WBC (Bld) 6.7 % Normal 0.9-7.0 [facility] Comment on above: Performed By: #### B [employer] CONDITION[employer]CH[employer]IC, CMP #### [facility] [address] [place] [address] Dr. Arden Magallon Erythrocyte distribution width (RBC) [Ratio] 14.3 % Normal 11.0-15.0 [facility] Comment on above: Performed By: #### B AUT[employer] CONDITION[employer]CH[employer]IC, CMP #### [facility] [address] [place] [address] Dr. Arden Magallon Hematocrit (Bld) [Volume fraction] 43.1 % Normal 36.0-48.0 [facility] Comment on above: Performed By: #### B [employer] CONDITION[employer]CH[employer]IC, CMP #### [facility] [address] [place] [address] Dr. Arden Magallon Hemoglobin (Bld) [Mass/Vol] 14.5 g/dL Normal 12.0-16.0 [facility] Comment on above: Performed By: #### B [employer]CH[employer]IC, CMP #### [facility] [address] [place] [address] Dr. Arden Magallon IG # 0.02 10e3/ul Normal 0.00-0.03 [facility] Comment on above: Performed By: #### B [employer]CH[employer]IC, CMP #### [facility] [address] [place] [address] Dr. Arden Magallon IG % 0.3 % Normal 0.0-0.5 [facility] Comment on above: Performed By: #### B [employer]CH[employer]IC, CMP #### [facility] [address] [place] [address] Dr. Arden Magallon LYMPH # 3.1 103/ul Normal 1.2-3.8 [facility] Comment on above: Performed By: #### B [employer]CH[employer]IC, CMP #### [facility] [address] [place] [address] Dr. Arden Magallon Lymphocytes/100 WBC (Bld) 41.0 % Normal 20.5-60.0 [facility] Comment on above: Performed By: #### B [employer] CONDITION[employer]CH[employer]IC, CMP #### [facility] [address] [place] [address] Dr. Arden Magallon MANUAL DIFF REQ NO Normal [facility] Comment on above: Performed By: #### B [employer] CONDITION[employer] MECH[employer]IC, CMP #### [facility] [address] [place] [address] Dr. Arden Magallon MCH (RBC) [Entitic mass] 31.6 pg Normal 26.7-34.0 [facility] Comment on above: Performed By: #### B [employer] CONDITION[employer] MECH[employer]IC, CMP #### [facility] [address] [place] [address] Dr. Arden Magallon MCHC (RBC) [Mass/Vol] 33.6 g/dL Normal 29.9-35.2 [facility] Comment on above: Performed By: #### B [employer] CONDITION[employer]CH[employer]IC, CMP #### [facility] [address] [place] [address] Dr. Arden Magallon MCV (RBC) [Entitic vol] 93.9 fL Normal 81.0-99.0 [facility] Comment on above: Performed By: #### B [employer]CH[employer]IC, CMP #### [facility] [address] [place] [address] Dr. Arden Magallon MONO # 0.8 103/ul Normal 0.3-0.8 [facility] Comment on above: Performed By: #### B [employer] CONDITION[employer]CH[employer]IC, CMP #### [facility] [address] [place] [address] Dr. Arden Magallon Monocytes/100 WBC (Bld) 10.9 % Normal 1.7-12.0 [facility] Comment on above: Performed By: #### B AUT[employer] CONDITION[employer] MECH[employer]IC, CMP #### [facility] [address] [place] [address] Dr. Arden Magallon NEUT # 2.9 103/ul Normal 1.4-6.5 [facility] Comment on above: Performed By: #### B [employer] CONDITION[employer]CH[employer]IC, CMP #### [facility] [address] [place] [address] Dr. Arden Magallon Neutrophils/100 WBC (Bld) 38.4 % Critically low 43.0-75.0 [facility] Comment on above: Performed By: #### B [employer]CH[employer]IC, CMP #### [facility] [address] [place] [address] Dr. Arden Magallon Platelet mean volume (Bld) [Entitic vol] 10.8 fL Normal 9.5-13.5 [facility] Comment on above: Performed By: #### B [employer] CONDITION[employer] MECH[employer]IC, CMP #### [facility] [address] [place] [address] Dr. Arden Magallon PLT 165 103/ul Normal 150-450 [facility] Comment on above: Performed By: #### B [employer] CONDITION[employer] MECH[employer]IC, CMP #### [facility] [address] [place] [address] Dr. Arden Magallon RBC 4.59 106/ul Normal 4.20-5.40 [facility] Comment on above: Performed By: #### B [employer] CONDITION[employer] MECH[employer]IC, CMP #### [facility] [address] [place] [address] Dr. Arden Magallon WBC 7.5 103/ul Normal 4.0-11.0 [facility] Comment on above: Performed By: #### B [employer] MECH[employer]IC, CMP #### [facility] [address] [place] [address] Dr. Arden Magallon PROF 14(COMP METB)on 022 Albumin [Mass/Vol] 3.9 g/dL Normal 3.4-5.0 [facility] Comment on above: Performed By: #### P T, DDIM #### [facility] [address] [place] [address] Dr. Arden Magallon Albumin/Globulin [Mass ratio] 1.2 {ratio} Normal [facility] Comment on above: Performed By: #### P T, DDIM #### [facility] [address] [place] [address] Dr. Arden Magallon ALP [Catalytic activity/Vol] 69 U/L Normal 46-116 [facility] Comment on above: Performed By: #### P T, DDIM #### [facility] [address] [place] [address] Dr. Arden Magallon ALT [Catalytic activity/Vol] 16 U/L Normal 14-59 [facility] Comment on above: Performed By: #### P T, DDIM #### [facility] [address] [place] [address] Dr. Arden Magallon Anion gap [Moles/Vol] 8.6 mmol/L Normal [facility] Comment on above: Performed By: #### P T, DDIM #### [facility] [address] [address] [address] Arden Magallon AST [Catalytic activity/Vol] 14 U/L Critically low 15-37 [facility] Comment on above: Performed By: #### P T, DDIM #### [facility] [address] [address] [address] Arden Magallon Bilirubin [Mass/Vol] 0.3 mg/dL Normal 0.2-1.0 [facility] Comment on above: Performed By: #### P T, DDIM #### [facility] [address] [place] [address] Dr. Arden Magallon Calcium [Mass/Vol] 9.5 mg/dL Normal 8.5-10.1 [facility] Comment on above: Performed By: #### P T, DDIM #### [facility] [address] [place] [address] Dr. Arden Magallon Chloride [Moles/Vol] 104 mmol/L Normal 98-107 [facility] Comment on above: Performed By: #### P T, DDIM #### [facility] [address] [place] [address] Dr. Arden Magallon CO2 [Moles/Vol] 29.2 mmol/L Normal 21.0-32.0 [facility] Comment on above: Performed By: #### P T, DDIM #### [facility] [address] [place] [address] Dr. Arden Magallon Creatinine [Mass/Vol] 1.25 mg/dL Critically high 0.55-1.02 [facility] Comment on above: Performed By: #### P T, DDIM #### [facility] [address] [place] [address] Dr. Arden Magallon EGFR-AF BRITISH 49 mL/min/1.73m2 Critically low >=60 [facility] Comment on above: Performed By: #### P T, DDIM #### [facility] [address] [address] [address] Arden Magallon EGFR-NON AF BRITISH 41 mL/min/1.73m2 Critically low >=60 [facility] Comment on above: Performed By: #### P T, DDIM #### [facility] [address] [address] [address] Arden Magallon Globulin (S) [Mass/Vol] 3.3 g/dL Normal [facility] Comment on above: Performed By: #### P T, DDIM #### [facility] [address] [address] [address] Arden Magallon Glucose [Mass/Vol] 119 mg/dL Critically high 74-106 [facility] Comment on above: Performed By: #### P T, DDIM #### [facility] [address] [place] [address] Dr. Arden Magallon Potassium [Moles/Vol] 3.8 mmol/L Normal 3.5-5.1 [facility] Comment on above: Performed By: #### P T, DDIM #### [facility] [address] [place] [address] Dr. Arden Magallon Protein [Mass/Vol] 7.2 g/dL Normal 6.4-8.2 [facility] Comment on above: Performed By: #### P T, DDIM #### [facility] [address] [place] [address] Dr. Arden Magallon Sodium [Moles/Vol] 138 mmol/L Normal 136-145 [facility] Comment on above: Performed By: #### P T, DDIM #### [facility] [address] [place] [address] Dr. Arden Magallon Urea nitrogen [Mass/Vol] 24.0 mg/dL Critically high 7.0-18.0 [facility] Comment on above: Performed By: #### P T, DDIM #### [facility] [address] [place] [address] Dr. Arden Magallon Urea nitrogen/Creatinine [Mass ratio] 19.2 mg/mg Normal [facility] Comment on above: Performed By: #### P T, DDIM #### [facility] [address] [place] [address] Dr. Arden Magallon BNPon 08-26-2022 Natriuretic peptide B (Bld) [Mass/Vol] 427.0 pg/mL Normal <=1,800.0 [facility] Comment on above: Performed By: #### P T, DDIM #### [facility] [address] [place] [address] Dr. Arden Magallon CARDIAC CINDY ADMITon 022 CK [Catalytic activity/Vol] 56 U/L Normal 26-192 [facility] Comment on above: Performed By: #### P T, DDIM #### [facility] [address] [place] [address] Dr. Arden Magallon CK.MB [Mass/Vol] 1.41 ng/mL Normal <=3.60 [facility] Comment on above: Performed By: #### P T, DDIM #### [facility] [address] [place] [address] Dr. Arden Magallon HSTROP 9.0 pg/mL Normal 4.0-51.3 [facility] Comment on above: Result Comment: CUT- OFF POINTS HAVE BEEN ESTABLISHED BASED ON THE FOURTH UNIVERSAL DEFINITIONS OF MYOCARDIAL INFARCTION. THE UPPER REFERENCE LIMIT (URL) OF TROPONIN, DEFINED THE 99TH PERCENTILE OF cTnI DISTRIBUTION IN A REFERENCE POPULATION, HAS BEEN CONFIRMED THE DECISION THRESHOLD FOR NM DIAGNOSIS. Performed By: #### P T, DDIM #### [facility] [address] [place] [address] Dr. Arden Magallon IKE 99 ng/mL Critically high 9-82 [facility] Comment on above: Performed By: #### P T, DDIM #### [facility] [address] [place] [address] Dr. Arden Magallon CBC AUTO DIFFon 08-26-2022 BASO # 0.2 103/ul Critically high 0.0-0.1 [facility] Comment on above: Performed By: #### C BC #### [facility] [address] [place] [address] Dr. Arden Magallon Basophils/100 WBC (Bld) 2.2 % Critically high 0.2-2.0 [facility] Comment on above: Performed By: #### C BC #### [facility] [address] [place] [address] Dr. Arden Magallon EO # 0.4 103/ul Normal 0.0-0.7 [facility] Comment on above: Performed By: #### C BC #### [facility] [address] [place] [address] Dr. Arden Magallon Eosinophils/100 WBC (Bld) 5.1 % Normal 0.9-7.0 [facility] Comment on above: Performed By: #### C BC #### [facility] [address] [place] [address] Dr. Arden Magallon Erythrocyte distribution width (RBC) [Ratio] 14.1 % Normal 11.0-15.0 [facility] Comment on above: Performed By: #### C BC #### [facility] [address] [place] [address] Dr. Arden Magallon Hematocrit (Bld) [Volume fraction] 41.2 % Normal 36.0-48.0 [facility] Comment on above: Performed By: #### C BC #### [facility] [address] [place] [address] Dr. Arden Magallon Hemoglobin (Bld) [Mass/Vol] 13.6 g/dL Normal 12.0-16.0 [facility] Comment on above: Performed By: #### C BC #### [facility] [address] [place] [address] Dr. Arden Magallon IG # 0.03 10e3/ul Normal 0.00-0.03 [facility] Comment on above: Performed By: #### C BC #### [facility] [address] [place] [address] Dr. Arden Magallon IG % 0.4 % Normal 0.0-0.5 [facility] Comment on above: Performed By: #### C BC #### [facility] [address] [place] [address] Dr. Arden Magallon LYMPH # 2.4 103/ul Normal 1.2-3.8 [facility] Comment on above: Performed By: #### C BC #### [facility] [address] [place] [address] Dr. Arden Magallon Lymphocytes/100 WBC (Bld) 30.1 % Normal 20.5-60.0 [facility] Comment on above: Performed By: #### C BC #### [facility] [address] [place] [address] Dr. Arden Magallon MANUAL DIFF REQ NO Normal [facility] Comment on above: Performed By: #### C BC #### [facility] [address] [place] [address] Dr. Arden Magallon MCH (RBC) [Entitic mass] 30.8 pg Normal 26.7-34.0 [facility] Comment on above: Performed By: #### C BC #### [facility] [address] [place] [address] Dr. Arden Magallon MCHC (RBC) [Mass/Vol] 33.0 g/dL Normal 29.9-35.2 [facility] Comment on above: Performed By: #### C BC #### [facility] [address] [place] [address] Dr. Arden Magallon MCV (RBC) [Entitic vol] 93.4 fL Normal 81.0-99.0 [facility] Comment on above: Performed By: #### C BC #### [facility] [address] [place] [address] Dr. Arden Magallon MONO # 0.8 103/ul Normal 0.3-0.8 [facility] Comment on above: Performed By: #### C BC #### [facility] [address] [place] [address] Dr. Arden Magallon Monocytes/100 WBC (Bld) 9.8 % Normal 1.7-12.0 [facility] Comment on above: Performed By: #### C BC #### [facility] [address] [place] [address] Dr. Arden Magallon NEUT # 4.2 103/ul Normal 1.4-6.5 [facility] Comment on above: Performed By: #### C BC #### [facility] [address] [address] [address] Arden Magallon Neutrophils/100 WBC (Bld) 52.4 % Normal 43.0-75.0 [facility] Comment on above: Performed By: #### C BC #### [facility] [address] [place] [address] Dr. Arden Magallon Platelet mean volume (Bld) [Entitic vol] 10.7 fL Normal 9.5-13.5 [facility] Comment on above: Performed By: #### C BC #### [facility] [address] [place] [address] Dr. Arden Magallon PLT 154 103/ul Normal 150-450 [facility] Comment on above: Performed By: #### C BC #### [facility] [address] [place] [address] Dr. Arden Magallon RBC 4.41 106/ul Normal 4.20-5.40 [facility] [facility] Comment on above: Performed By: #### C BC #### [facility] [address] [place] [address] Dr. Arden Magallon WBC 8.1 103/ul Normal 4.0-11.0 [facility] Comment on above: Performed By: #### C BC #### [facility] [address] [place] [address] Dr. Arden Magallon PROF 14(COMP METB)on 022 Albumin [Mass/Vol] 3.7 g/dL Normal 3.4-5.0 [facility] Comment on above: Performed By: #### P T, DDIM #### [facility] [address] [place] [address] Dr. Arden Magallon Albumin/Globulin [Mass ratio] 1.2 {ratio} Normal [facility] Comment on above: Performed By: #### P T, DDIM #### [facility] [address] [place] [address] Dr. Arden aMgallon ALP [Catalytic activity/Vol] 57 U/L Normal 46-116 [facility] Comment on above: Performed By: #### P T, DDIM #### [facility] [address] [address] [address] Arden Magallon ALT [Catalytic activity/Vol] 17 U/L Normal 14-59 [facility] Comment on above: Performed By: #### P T, DDIM #### [facility] [address] [address] [address] Arden Magallon Anion gap [Moles/Vol] 9.1 mmol/L Normal [facility] Comment on above: Performed By: #### P T, DDIM #### [facility] [address] [address] [address] Arden Magallon AST [Catalytic activity/Vol] 12 U/L Critically low 15-37 [facility] Comment on above: Performed By: #### P T, DDIM #### [facility] [address] [address] [address] Arden Magallon Bilirubin [Mass/Vol] 0.6 mg/dL Normal 0.2-1.0 [facility] Comment on above: Performed By: #### P T, DDIM #### [facility] [address] [address] [address] Arden Magallon Calcium [Mass/Vol] 9.5 mg/dL Normal 8.5-10.1 [facility] Comment on above: Performed By: #### P T, DDIM #### [facility] [address] [address] [address] Arden Magallon Chloride [Moles/Vol] 105 mmol/L Normal 98-107 [facility] Comment on above: Performed By: #### P T, DDIM #### [facility] [address] [address] [address] Arden Magallon CO2 [Moles/Vol] 27.9 mmol/L Normal 21.0-32.0 [facility] Comment on above: Performed By: #### P T, DDIM #### [facility] [address] [address] [address] Arden Magallon Creatinine [Mass/Vol] 0.97 mg/dL Normal 0.55-1.02 [facility] Comment on above: Performed By: #### P T, DDIM #### [facility] [address] [place] [address] Dr. Arden Magallon EGFR-AF BRITISH >60 Normal >=60 [facility] Comment on above: Performed By: #### P T, DDIM #### [facility] [address] [address] [address] Arden Magallon EGFR-NON AF BRITISH 54 mL/min/1.73m2 Critically low >=60 [facility] Comment on above: Performed By: #### P T, DDIM #### [facility] [address] [place] [address] Dr. Arden Magallon Globulin (S) [Mass/Vol] 3.0 g/dL Normal [facility] Comment on above: Performed By: #### P T, DDIM #### [facility] [address] [place] [address] Dr. Arden Magallon Glucose [Mass/Vol] 105 mg/dL Normal 74-106 [facility] Comment on above: Performed By: #### P T, DDIM #### [facility] [address] [place] [address] Dr. Arden Magallon Potassium [Moles/Vol] 4.0 mmol/L Normal 3.5-5.1 [facility] Comment on above: Performed By: #### P T, DDIM #### [facility] [address] [place] [address] Dr. Arden Magallon Protein [Mass/Vol] 6.7 g/dL Normal 6.4-8.2 [facility] Comment on above: Performed By: #### P T, DDIM #### [facility] [address] [place] [address] Dr. Arden Magallon Sodium [Moles/Vol] 138 mmol/L Normal 136-145 [facility] Comment on above: Performed By: #### P T, DDIM #### [facility] [address] [place] [address] Dr. Arden Magallon Urea nitrogen [Mass/Vol] 18.0 mg/dL Normal 7.0-18.0 [facility] Comment on above: Performed By: #### P T, DDIM #### [facility] [address] [place] [address] Dr. Arden Magallon Urea nitrogen/Creatinine [Mass ratio] 18.6 mg/mg Normal [facility] Comment on above: Performed By: #### P T, DDIM #### [facility] [address] [place] [address] Dr. Arden Magallon PROTIMEon 08-26-2022 INR Coag (PPP) [Relative time] 1.49 {INR} Normal [facility] Comment on above: Performed By: #### B [employer], CMP #### [facility] [address] [place] [address] Dr. Arden Magallon INR GUIDELINES SEE BELOW Normal [facility] Comment on above: Result Comment: THANH RED INR: 2.0 - 3.0 CONDITIONS NOT LISTED BELOW 2.5 - 3.5 FOR PROSTHETIC HEART VALVE REPLACEMENT 2.5 - 3.5 RECURRENT THROMBOSIS Performed By: #### B [employer], CMP #### [facility] [address] [place] [address] Dr. Arden Magallon PT Coag (PPP) [Time] 15.7 s Critically high 9.0-11.6 [facility] Comment on above: Performed By: #### B [employer], CMP #### [facility] [address] [place] [address] Dr. Arden Magallon PTTon 08-26-2022 aPTT Coag (Bld) [Time] 30.2 s Normal 22.3-36.2 [facility] Comment on above: Performed By: #### B [employer], CMP #### [facility] [address] [place] [address] Dr. Arden Magallon TROPONIN, HIGH SENSITIVITYon 08-26-2022 HSTROP 8.3 pg/mL Normal 4.0-51.3 [facility] Comment on above: Result Comment: CUT- OFF POINTS HAVE BEEN ESTABLISHED BASED ON THE FOURTH UNIVERSAL DEFINITIONS OF MYOCARDIAL INFARCTION. THE UPPER REFERENCE LIMIT (URL) OF TROPONIN, DEFINED THE 99TH PERCENTILE OF cTnI DISTRIBUTION IN A REFERENCE POPULATION, HAS BEEN CONFIRMED THE DECISION THRESHOLD FOR NM DIAGNOSIS. Performed By: #### B MP #### [facility] [address] [place] [address] Dr. Arden Magallon XR CHEST 1 Von 08-26-2022 XR CHEST 1 V EXAM: XR CHEST 1 V at 1147 hours HISTORY: CHEST PAIN, UNSPECIFIED COMPARISON: 08/17/2022 TECHNIQUE: AP upright portable chest x-ray FINDINGS: The heart remains at the upper limits of normal in size without overt cardiac decompensation. Again seen is hazy opacity at the left lung base laterally. The left upper and the right lung are clear. The osseous structures are grossly intact. IMPRESSION: Some haziness persist at the extreme left lung base laterally, which may indicate a small amount of atelectasis or infiltrate, or possibly chronic pleural thickening. There is no other evidence of a focal infiltrate or cardiac decompensation, the overall appearance of the chest is unchanged. Electronically authenticated by: MOMO RICO Date: 2022-08-26 12:29 Normal [facility] BNPon 08-17-2022 Natriuretic peptide B (Bld) [Mass/Vol] 414.0 pg/mL Normal <=1,800.0 [facility] Comment on above: Performed By: #### B MP #### [facility] [address] [place] [address] Dr. Arden Magallon CBC AUTO DIFFon 08-17-2022 BASO # 0.2 103/ul Critically high 0.0-0.1 [facility] Comment on above: Performed By: #### B MP #### [facility] [address] [place] [address] Dr. Arden Magallon Basophils/100 WBC (Bld) 2.8 % Critically high 0.2-2.0 [facility] Comment on above: Performed By: #### B MP #### [facility] [address] [place] [address] Dr. Arden Magallon EO # 0.5 103/ul Normal 0.0-0.7 [facility] Comment on above: Performed By: #### B MP #### [facility] [address] [place] [address] Dr. Arden Magallon Eosinophils/100 WBC (Bld) 7.2 % Critically high 0.9-7.0 [facility] Comment on above: Performed By: #### B MP #### [facility] [address] [place] [address] Dr. Arden Magallon Erythrocyte distribution width (RBC) [Ratio] 14.1 % Normal 11.0-15.0 [facility] Comment on above: Performed By: #### B MP #### [facility] [address] [place] [address] Dr. Arden Magallon Hematocrit (Bld) [Volume fraction] 41.2 % Normal 36.0-48.0 [facility] Comment on above: Performed By: #### B MP #### [facility] [address] [place] [address] Dr. Arden Magallon Hemoglobin (Bld) [Mass/Vol] 13.5 g/dL Normal 12.0-16.0 [facility] Comment on above: Performed By: #### B MP #### [facility] [address] [place] [address] Dr. Arden Magallon IG # 0.01 10e3/ul Normal 0.00-0.03 [facility] Comment on above: Performed By: #### B MP #### [facility] [address] [place] [address] Dr. Arden Magallon IG % 0.1 % Normal 0.0-0.5 [facility] Comment on above: Performed By: #### B MP #### [facility] [address] [place] [address] Dr. Arden Magallon LYMPH # 2.7 103/ul Normal 1.2-3.8 [facility] Comment on above: Performed By: #### B MP #### [facility] [address] [place] [address] Dr. Arden Magallon Lymphocytes/100 WBC (Bld) 37.7 % Normal 20.5-60.0 [facility] Comment on above: Performed By: #### B MP #### [facility] [address] [place] [address] Dr. Arden Magallon MANUAL DIFF REQ NO Normal [facility] Comment on above: Performed By: #### B MP #### [facility] [address] [place] [address] Dr. Arden Magallon MCH (RBC) [Entitic mass] 31.2 pg Normal 26.7-34.0 [facility] Comment on above: Performed By: #### B MP #### [facility] [address] [place] [address] Dr. Arden Magallon MCHC (RBC) [Mass/Vol] 32.8 g/dL Normal 29.9-35.2 [facility] Comment on above: Performed By: #### B MP #### [facility] [address] [place] [address] Dr. Arden Magallon MCV (RBC) [Entitic vol] 95.2 fL Normal 81.0-99.0 [facility] Comment on above: Performed By: #### B MP #### [facility] [address] [place] [address] Dr. Arden Magallon MONO # 0.6 103/ul Normal 0.3-0.8 [facility] Comment on above: Performed By: #### B MP #### [facility] [address] [place] [address] Dr. Arden Magallon Monocytes/100 WBC (Bld) 8.2 % Normal 1.7-12.0 [facility] Comment on above: Performed By: #### B MP #### [facility] [address] [place] [address] Dr. Arden Magallon NEUT # 3.1 103/ul Normal 1.4-6.5 [facility] Comment on above: Performed By: #### B MP #### [facility] [address] [place] [address] Dr. Arden Magallon Neutrophils/100 WBC (Bld) 44.0 % Normal 43.0-75.0 [facility] Comment on above: Performed By: #### B MP #### [facility] [address] [place] [address] Dr. Arden Magallon Platelet mean volume (Bld) [Entitic vol] 11.5 fL Normal 9.5-13.5 [facility] Comment on above: Performed By: #### B MP #### [facility] [address] [place] [address] Dr. Arden Magallon PLT 160 103/ul Normal 150-450 [facility] Comment on above: Performed By: #### B MP #### [facility] [address] [place] [address] Dr. Arden Magallon RBC 4.33 106/ul Normal 4.20-5.40 [facility] Comment on above: Performed By: #### B MP #### [facility] [address] [place] [address] Dr. Arden Magallon WBC 7.1 103/ul Normal 4.0-11.0 [facility] Comment on above: Performed By: #### B MP #### [facility] [address] [place] [address] Dr. Arden Magallon D-DIMERon 08-17-2022 D-DIMER 0.36 mg/L FEU Normal <=0.59 [facility] Comment on above: Performed By: #### P T, DDIM #### [facility] [address] [place] [address] Dr. Arden Magallon D-DIMER COMMENTS SEE BELOW Normal [facility] Comment on above: Result Comment: Incr eases in D-Dimer concentration observed with thromboembolic events can be variable due to localization, size, and age of the thrombus. Therefore, a thromboembolic event cannot be diagnosed with certainty on the basis of the reference range. D-Dimers may also be elevated for a variety of disorders including: advanced age, , coronary disease, cancer, liver disease, infection, inflammation, hematoma, DIC, trauma, post-surgery, diabetes, thrombolytic or anticoagulant therapy, stress, and generalized hospitalization. Performed By: #### P T, DDIM #### [facility] [address] [place] [address] Dr. Arden Magallon PROF 14(COMP METB)on 022 Albumin [Mass/Vol] 3.7 g/dL Normal 3.4-5.0 [facility] Comment on above: Performed By: #### C BC #### [facility] [address] [address] [address] Arden Magallon Albumin/Globulin [Mass ratio] 1.1 {ratio} Normal [facility] Comment on above: Performed By: #### C BC #### [facility] [address] [place] [address] Dr. Arden Magallon ALP [Catalytic activity/Vol] 65 U/L Normal 46-116 [facility] Comment on above: Performed By: #### C BC #### [facility] [address] [place] [address] Dr. Arden Magallon ALT [Catalytic activity/Vol] 15 U/L Normal 14-59 [facility] Comment on above: Performed By: #### C BC #### [facility] [address] [place] [address] Dr. Arden Magallon Anion gap [Moles/Vol] 6.1 mmol/L Normal [facility] Comment on above: Performed By: #### C BC #### [facility] [address] [place] [address] Dr. Arden Magallon AST [Catalytic activity/Vol] 11 U/L Critically low 15-37 [facility] Comment on above: Performed By: #### C BC #### [facility] [address] [place] [address] Dr. Arden Magallon Bilirubin [Mass/Vol] 0.4 mg/dL Normal 0.2-1.0 [facility] Comment on above: Performed By: #### C BC #### [facility] [address] [place] [address] Dr. Arden Magallon Calcium [Mass/Vol] 9.6 mg/dL Normal 8.5-10.1 [facility] Comment on above: Performed By: #### C BC #### [facility] [address] [place] [address] Dr. Arden Magallon Chloride [Moles/Vol] 106 mmol/L Normal 98-107 [facility] Comment on above: Performed By: #### C BC #### [facility] [address] [address] [address] Arden Magallon CO2 [Moles/Vol] 29.5 mmol/L Normal 21.0-32.0 [facility] Comment on above: Performed By: #### C BC #### [facility] [address] [address] [address] Arden Magallon Creatinine [Mass/Vol] 1.02 mg/dL Normal 0.55-1.02 [facility] Comment on above: Performed By: #### C BC #### [facility] [address] [address] [address] Arden Magallon EGFR-AF BRITISH >60 Normal >=60 [facility] Comment on above: Performed By: #### C BC #### [facility] [address] [place] [address] Dr. Arden Magallon EGFR-NON AF BRITISH 51 mL/min/1.73m2 Critically low >=60 [facility] Comment on above: Performed By: #### C BC #### [facility] [address] [place] [address] Dr. Arden Magallon Globulin (S) [Mass/Vol] 3.3 g/dL Normal [facility] Comment on above: Performed By: #### C BC #### [facility] [address] [place] [address] Dr. Arden Magallon Glucose [Mass/Vol] 143 mg/dL Critically high 74-106 [facility] Comment on above: Performed By: #### C BC #### [facility] [address] [address] [address] Arden Magallon Potassium [Moles/Vol] 3.6 mmol/L Normal 3.5-5.1 [facility] Comment on above: Performed By: #### C BC #### [facility] [address] [place] [address] Dr. Arden Magallon Protein [Mass/Vol] 7.0 g/dL Normal 6.4-8.2 [facility] Comment on above: Performed By: #### C BC #### [facility] [address] [place] [address] Dr. Arden Magallon Sodium [Moles/Vol] 138 mmol/L Normal 136-145 [facility] Comment on above: Performed By: #### C BC #### [facility] [address] [address] [address] Arden Magallon Urea nitrogen [Mass/Vol] 21.0 mg/dL Critically high 7.0-18.0 [facility] Comment on above: Performed By: #### C BC #### [facility] [address] [address] [address] Arden Magallon Urea nitrogen/Creatinine [Mass ratio] 20.6 mg/mg Normal [facility] Comment on above: Performed By: #### C BC #### [facility] [address] [place] [address] Dr. Arden Magallon PROTIMEon 08-17-2022 INR Coag (PPP) [Relative time] 1.27 {INR} Normal [facility] Comment on above: Performed By: #### P T, DDIM #### [facility] [address] [place] [address] Dr. Arden Magallon INR GUIDELINES SEE BELOW Normal [facility] Comment on above: Result Comment: THANH RED INR: 2.0 - 3.0 CONDITIONS NOT LISTED BELOW 2.5 - 3.5 FOR PROSTHETIC HEART VALVE REPLACEMENT 2.5 - 3.5 RECURRENT THROMBOSIS Performed By: #### P T, DDIM #### [facility] [address] [place] [address] Dr. Arden Magallon PT Coag (PPP) [Time] 13.5 s Critically high 9.0-11.6 [facility] Comment on above: Performed By: #### P T, DDIM #### [facility] [address] [place] [address] Dr. Arden Magallon TROPONIN, HIGH SENSITIVITYon 08-17-2022 HSTROP 8.3 pg/mL Normal 4.0-51.3 [facility] Comment on above: Result Comment: CUT- OFF POINTS HAVE BEEN ESTABLISHED BASED ON THE FOURTH UNIVERSAL DEFINITIONS OF MYOCARDIAL INFARCTION. THE UPPER REFERENCE LIMIT (URL) OF TROPONIN, DEFINED THE 99TH PERCENTILE OF cTnI DISTRIBUTION IN A REFERENCE POPULATION, HAS BEEN CONFIRMED THE DECISION THRESHOLD FOR NM DIAGNOSIS. Performed By: #### B MP #### [facility] [address] [address] [address] Arden Magallon XR CHEST 1 Von 08-17-2022 XR CHEST 1 V EXAMINATION: XR CHEST 1 V HISTORY: CHEST PAIN, UNSPECIFIED , hypertension COMPARISON: XR chest 04/15/2022 FINDINGS: LUNGS: Indistinctness of the lateral left diaphragm margin and obscuration of the costophrenic angle. Lungs are otherwise clear. VASCULATURE: No increased pulmonary vasculature. PLEURA: No pneumothorax, effusion, or pleural thickening. CARDIAC: No cardiomegaly or cardiac silhouette abnormality. MEDIASTINUM: No visible mass or adenopathy. BONES: No fracture or visible bone lesion. OTHER: Negative. IMPRESSION: 1. Stable mild findings within lateral left lung base compared to 04/15/2022; chronic scarring versus recurrent infiltrate/atelectas is. Electronically authenticated by: HARJINDER RAMIREZ Date: 2022-08-17 13:57 Normal [facility] ER URINE PROFILEon 2 Bilirubin Ql (U) Negative Normal NEGATIVE [facility] Comment on above: Performed By: #### P T, DDIM #### [facility] [address] [place] [address] Dr. Arden Magallon Clarity (U) CLEAR Normal CLEAR [facility] Comment on above: Performed By: #### P T, DDIM #### [facility] [address] [place] [address] Dr. Arden Magallon Color (U) LT. YELLOW Normal YELLOW [facility] Comment on above: Performed By: #### P T, DDIM #### [facility] [address] [address] [address] Arden Magallon ERUAHD A micrscopic examination will be performed if indicated. Normal [facility] Comment on above: Performed By: #### P T, DDIM #### [facility] [address] [place] [address] Dr. Arden Magallon Glucose Ql (U) Negative Normal NEGATIVE [facility] Comment on above: Performed By: #### P T, DDIM #### [facility] [address] [place] [address] Dr. Arden Magallon Hemoglobin Ql (U) SMALL Abnormal NEGATIVE [facility] Comment on above: Performed By: #### P T, DDIM #### [facility] [address] [place] [address] Dr. Arden Magallon Ketones Ql (U) Negative Normal NEGATIVE [facility] Comment on above: Performed By: #### P T, DDIM #### [facility] [address] [place] [address] Dr. Arden Magallon LEUKOCYTES TRACE Abnormal NEGATIVE [facility] Comment on above: Performed By: #### P T, DDIM #### [facility] [address] [place] [address] Dr. Arden Magallon Nitrite Ql (U) Negative Normal NEGATIVE [facility] Comment on above: Performed By: #### P T, DDIM #### [facility] [address] [place] [address] Dr. Arden Magallon pH (U) 7.0 [pH] Normal 5-9 [facility] Comment on above: Performed By: #### P T, DDIM #### [facility] [address] [place] [address] Dr. Arden Magallon SPEC GRAVITY 1.010 Normal 1.005-<=1.02 5 [facility] Comment on above: Performed By: #### P T, DDIM #### [facility] [address] [place] [address] Dr. Arden Magallon UA PROTEIN Negative Normal NEGATIVE/ TRACE [facility] Comment on above: Performed By: #### P T, DDIM #### [facility] [address] [place] [address] Dr. Arden Magallon UR MICRO IND INDICATED Normal [facility] Comment on above: Performed By: #### P T, DDIM #### [facility] [address] [place] [address] Dr. Arden Magallon Urobilinogen Qn (U) 0.2 {Myranda'U}/dL Normal 0.2 - 1. 0 [facility] Comment on above: Performed By: #### P T, DDIM #### [facility] [address] [place] [address] Dr. Arden Magallon URINE MICROSCOPIC ONLYon BACTERIA NONE SEEN Normal NONE SEEN [facility] Comment on above: Performed By: #### P T, DDIM #### [facility] [address] [place] [address] Dr. Arden Magallon Bacteria identified Cx Nom (U) NOT INDICATED Normal [facility] Comment on above: Performed By: #### P T, DDIM #### [facility] [address] [place] [address] Dr. Arden Magallon CAST NONE SEEN Normal NONE SEEN [facility] Comment on above: Performed By: #### P T, DDIM #### [facility] [address] [place] [address] Dr. Arden Magallon Crystals LM Nom (Urine sed) NONE SEEN Normal NONE SEEN [facility] Comment on above: Performed By: #### P T, DDIM #### [facility] [address] [place] [address] Dr. Arden Magallon Epithelial cells LM Ql (Urine sed) RARE Normal NONE SEEN /RARE [facility] Comment on above: Performed By: #### P T, DDIM #### [facility] [address] [place] [address] Dr. Arden Magallon MUCOUS NONE SEEN Normal NONE SEEN [facility] Comment on above: Performed By: #### P T, DDIM #### [facility] [address] [place] [address] Dr. Arden Magallon RBC 0-2 Normal 0-2 [facility] Comment on above: Performed By: #### P T, DDIM #### [facility] [address] [place] [address] Dr. Arden Magallon WBC 0-2 Abnormal NONE SEEN [facility] Comment on above: Performed By: #### P T, DDIM #### [facility] [address] [place] [address] Dr. Arden Magallon XR CHEST 1 Von 04-16-2022 XR CHEST 1 V EXAMINATION: XR CHEST 1 V, , 04/15/2022 9:16 PM EDT INDICATION: COUGH HISTORY: Ordering Provider Reason for Exam: Technologist Note: Additional: COMPARISON: None. TECHNIQUE: Chest x-ray: One view. FINDINGS: Increased markings are seen in the left lung base, suggestive of left lung base atelectasis versus small infiltrate with possible small left pleural effusion. No obvious pneumothorax is seen. Heart is normal in size. Bony thorax is unremarkable. IMPRESSION: Increased markings are seen in the left lung base, suggestive of left lung base atelectasis versus small infiltrate with possible small left pleural effusion. Electronically authenticated by: PANCHO ELY Date: 2022-04-15 22:19 Normal [facility] BNPon 04-15-2022 Natriuretic peptide B (Bld) [Mass/Vol] 318.0 pg/mL Normal <=1,800.0 [facility] Comment on above: Performed By: #### B AUT[employer] AIR CONDITIONING MECHANIC, CMP #### [facility] [address] [place] [address] Dr. Arden Magallon CBC AUTO DIFFon 04-15-2022 BASO # 0.2 103/ul Critically high 0.0-0.1 [facility] Comment on above: Performed By: #### P T, DDIM #### [facility] [address] [place] [address] Dr. Arden Magallon Basophils/100 WBC (Bld) 2.2 % Critically high 0.2-2.0 [facility] Comment on above: Performed By: #### P T, DDIM #### [facility] [address] [place] [address] Dr. Arden Magallon EO # 0.5 103/ul Normal 0.0-0.7 [facility] Comment on above: Performed By: #### P T, DDIM #### [facility] [address] [place] [address] Dr. Arden Magallon Eosinophils/100 WBC (Bld) 6.2 % Normal 0.9-7.0 [facility] Comment on above: Performed By: #### P T, DDIM #### [facility] [address] [place] [address] Dr. Arden Magallon Erythrocyte distribution width (RBC) [Ratio] 14.0 % Normal 11.0-15.0 [facility] Comment on above: Performed By: #### P T, DDIM #### [facility] [address] [place] [address] Dr. Arden Magallon Hematocrit (Bld) [Volume fraction] 41.6 % Normal 36.0-48.0 [facility] Comment on above: Performed By: #### P T, DDIM #### [facility] [address] [place] [address] Dr. Arden Magallon Hemoglobin (Bld) [Mass/Vol] 13.8 g/dL Normal 12.0-16.0 [facility] Comment on above: Performed By: #### P T, DDIM #### [facility] [address] [place] [address] Dr. Arden Magallon IG # 0.01 10e3/ul Normal 0.00-0.03 [facility] Comment on above: Performed By: #### P T, DDIM #### [facility] [address] [place] [address] Dr. Arden Magallon IG % 0.1 % Normal 0.0-0.5 [facility] Comment on above: Performed By: #### P T, DDIM #### [facility] [address] [place] [address] Dr. Arden Magallon LYMPH # 3.2 103/ul Normal 1.2-3.8 [facility] Comment on above: Performed By: #### P T, DDIM #### [facility] [address] [place] [address] Dr. Arden Magallon Lymphocytes/100 WBC (Bld) 37.2 % Normal 20.5-60.0 [facility] Comment on above: Performed By: #### P T, DDIM #### [facility] [address] [place] [address] Dr. Arden Magallon MANUAL DIFF REQ NO Normal [facility] Comment on above: Performed By: #### P T, DDIM #### [facility] [address] [place] [address] Dr. Arden Magallon MCH (RBC) [Entitic mass] 31.0 pg Normal 26.7-34.0 [facility] Comment on above: Performed By: #### P T, DDIM #### [facility] [address] [place] [address] Dr. Arden Magallon MCHC (RBC) [Mass/Vol] 33.2 g/dL Normal 29.9-35.2 [facility] Comment on above: Performed By: #### P T, DDIM #### [facility] [address] [place] [address] Dr. Arden Magallon MCV (RBC) [Entitic vol] 93.5 fL Normal 81.0-99.0 [facility] Comment on above: Performed By: #### P T, DDIM #### [facility] [address] [place] [address] Dr. Arden Magallon MONO # 0.8 103/ul Normal 0.3-0.8 [facility] Comment on above: Performed By: #### P T, DDIM #### [facility] [address] [place] [address] Dr. Arden Magallon Monocytes/100 WBC (Bld) 9.4 % Normal 1.7-12.0 [facility] Comment on above: Performed By: #### P T, DDIM #### [facility] [address] [place] [address] Dr. Arden Magallon NEUT # 3.9 103/ul Normal 1.4-6.5 [facility] Comment on above: Performed By: #### P T, DDIM #### [facility] [address] [place] [address] Dr. Arden Magallon Neutrophils/100 WBC (Bld) 44.9 % Normal 43.0-75.0 [facility] Comment on above: Performed By: #### P T, DDIM #### [facility] [address] [place] [address] Dr. Arden Magallon Platelet mean volume (Bld) [Entitic vol] 10.7 fL Normal 9.5-13.5 [facility] Comment on above: Performed By: #### P T, DDIM #### [facility] [address] [place] [address] Dr. Arden Magallon PLT 158 103/ul Normal 150-450 [facility] Comment on above: Performed By: #### P T, DDIM #### [facility] [address] [place] [address] Dr. Arden Magallon RBC 4.45 106/ul Normal 4.20-5.40 [facility] Comment on above: Performed By: #### P T, DDIM #### [facility] [address] [place] [address] Dr. Arden Magallon WBC 8.7 103/ul Normal 4.0-11.0 [facility] Comment on above: Performed By: #### P T, DDIM #### [facility] [address] [place] [address] Dr. Arden Magallon PROF 14(COMP METB)on 022 Albumin [Mass/Vol] 4.2 g/dL Normal 3.4-5.0 [facility] Comment on above: Performed By: #### B [employer] CONDITIONING MECHANIC, CMP #### [facility] [address] [place] [address] Dr. Arden Magallon Albumin/Globulin [Mass ratio] 1.2 {ratio} Normal [facility] Comment on above: Performed By: #### B AUT[employer] AIR CONDITIONING MECHANIC, CMP #### [facility] [address] [place] [address] Dr. Arden Magallon ALP [Catalytic activity/Vol] 75 U/L Normal 46-116 [facility] Comment on above: Performed By: #### B [employer] CONDITIONING MECHANIC, CMP #### [facility] [address] [place] [address] Dr. Arden Magallon ALT [Catalytic activity/Vol] 31 U/L Normal 14-59 [facility] Comment on above: Performed By: #### B AUTO [employer] CONDITIONING MECHANIC, CMP #### [facility] [address] [place] [address] Dr. Arden Magallon Anion gap [Moles/Vol] 11.6 mmol/L Normal [facility] Comment on above: Performed By: #### B AUTO AIR CONDITIONING MECHANIC, CMP #### [facility] [address] [address] [address] Arden Magallon AST [Catalytic activity/Vol] 16 U/L Normal 15-37 [facility] Comment on above: Performed By: #### B [employer] CONDITIONING MECHANIC, CMP #### [facility] [address] [address] [address] Arden Magallon Bilirubin [Mass/Vol] 0.4 mg/dL Normal 0.2-1.0 [facility] Comment on above: Performed By: #### B AUT[employer] CONDITIONING MECHANIC, CMP #### [facility] [address] [address] [address] Arden Magallon Calcium [Mass/Vol] 9.7 mg/dL Normal 8.5-10.1 [facility] Comment on above: Performed By: #### B AUTO [employer] CONDITIONING MECHANIC, CMP #### [facility] [address] [address] [address] Arden Magallon Chloride [Moles/Vol] 106 mmol/L Normal 98-107 [facility] Comment on above: Performed By: #### B AUTO [employer] CONDITIONING MECHANIC, CMP #### [facility] [address] [address] [address] Arden Magallon CO2 [Moles/Vol] 25.2 mmol/L Normal 21.0-32.0 [facility] Comment on above: Performed By: #### B AUTO AIR CONDITIONING MECHANIC, CMP #### [facility] [address] [address] [address] Arden Magallon Creatinine [Mass/Vol] 1.06 mg/dL Critically high 0.55-1.02 [facility] Comment on above: Performed By: #### B AUTO [employer] CONDITIONING MECHANIC, CMP #### [facility] [address] [address] [address] Arden Magallon EGFR-AF BRITISH 60 mL/min/1.73m2 Normal >=60 [facility] Comment on above: Performed By: #### B AUTO AIR CONDITIONING MECHANIC, CMP #### [facility] [address] [address] [address] Arden Magallon EGFR-NON AF BRITISH 49 mL/min/1.73m2 Critically low >=60 [facility] Comment on above: Performed By: #### B AUTO [employer] CONDITIONING MECHANIC, CMP #### [facility] [address] [place] [address] Dr. Arden Magallon Globulin (S) [Mass/Vol] 3.4 g/dL Normal [facility] Comment on above: Performed By: #### B AUTO AIR CONDITIONING MECHANIC, CMP #### [facility] [address] [place] [address] Dr. Arden Magallon Glucose [Mass/Vol] 123 mg/dL Critically high 74-106 [facility] Comment on above: Performed By: #### B AUTO AIR CONDITIONING MECHANIC, CMP #### [facility] [address] [place] [address] Dr. Arden Magallon Potassium [Moles/Vol] 3.8 mmol/L Normal 3.5-5.1 [facility] Comment on above: Performed By: #### B AUTO [employer] CONDITIONING MECHANIC, CMP #### [facility] [address] [place] [address] Dr. Arden Magallon Protein [Mass/Vol] 7.6 g/dL Normal 6.4-8.2 [facility] Comment on above: Performed By: #### B AUTO AIR CONDITIONING MECHANIC, CMP #### [facility] [address] [place] [address] Dr. Arden Magallon Sodium [Moles/Vol] 139 mmol/L Normal 136-145 [facility] Comment on above: Performed By: #### B AUTO [employer] CONDITIONING MECHANIC, CMP #### [facility] [address] [place] [address] Dr. Arden Magallon Urea nitrogen [Mass/Vol] 22.0 mg/dL Critically high 7.0-18.0 [facility] Comment on above: Performed By: #### B AUTO AIR CONDITIONING MECHANIC, CMP #### [facility] [address] [place] [address] Dr. Arden Magallon Urea nitrogen/Creatinine [Mass ratio] 20.8 mg/mg Normal [facility] Comment on above: Performed By: #### B AUTO [employer] CONDITIONING MECHANIC, CMP #### [facility] [address] [place] [address] Dr. Arden Magallon ECHOCARDIO M/2D COMPLETEon 0 6-29-2022 ECHOCARDIO M/2D COMPLETE Patient: ZORAIDA BARRIOS Exam Date: 04/06/2022 : 1935 Gender:F Ordering : HERMELINDA HUGO Admission #: [id number] Family : Order #: [id number] CLICK HERE TO VIEW EXAM ECHOCARDIOGRAM REPORT PROCEDURE: CARDIO PULMONARY ECHOCARDIO M/2D COMP INDICATIONS: Secondary hypertension COMPARISON: None. DESCRIPTION: COMPLETE ECHOCARDIOGRAM Real-time transthoracic echocardiography with 2D, M-mode, spectral and color flow Doppler performed. QUALITY: Technical quality was good. LEFT VENTRICLE: Mild dilatation. Mild concentric left ventricular hypertrophy. Global left ventricular systolic function is normal. LV EF: Calculated left ventricular ejection fraction is 68%. DIASTOLIC: Diastolic function is indeterminate. ATRIAL SEPTUM: LEFT ATRIUM: Normal chamber size. RIGHT ATRIUM: Mild dilatation. RIGHT VENTRICLE: Normal chamber size. Normal right ventricular systolic function. TRICUSPID VALVE: Normal mobility and thickness. No stenosis with mild regurgitation. No evidence of pulmonary hypertension. RVSP 27 mmHg. MITRAL VALVE: Normal mobility and thickness. No mitral valve prolapse. No evidence of mitral valve stenosis. There is no mitral annular calcification. Trivial mitral regurgitation. AORTIC VALVE: Normal trileaflet appearance. Thickened aortic valve. Normal leaflet mobility. No evidence of aortic valve stenosis. Mild aortic regurgitation. AORTIC ROOT: Normal diameter and appearance. PULMONIC VALVE: Normal thickness and mobility. No stenosis. Trivial regurgitation. PERICARDIUM: No evidence of pericardial effusion. IVC: Collapses with inspirations. PLEURA: CONCLUSION: 1. Mild concentric left ventricular hypertrophy. Normal left ventricular systolic function. Estimated ejection fraction is 65 to 70%. 2. Normal right ventricular systolic function. 3. Mild aortic and tricuspid regurgitation. 4. Normal right-sided pressures. 5. No pericardial effusion. Adult Echocardiography Procedure Report Left Ventricle LVEDD (3.7 - 5.6 cm): 3.74 cm LVESD (2.2 - 4.0 cm): 2.45 cm LVIVS thickness (0.6 - 1.2 cm): 1.21 cm LVPW thickness (0.5 - 1.0 cm): 1.12 cm e': 7.13 cm/s E - e': 8.70 LVOT Area (cm2): 2.27 cm2 LVOT Diameter 1.70 cm Left Ventricular Ejection Fraction: 65-70 % Left Atrium LA Volume Index (2D A2C): 23.40 ml/m2 Left Atrium Systolic Dimension: 3.20 cm Left Atrium Systolic Area(A2C): 14.70 cm2 Left Atrium Systolic Area(A4C): 16.40 cm2 Left Atrium Systolic Volume(A2C): 61854 mm3 Left Atrium Systolic Volume(A4C): 70506 mm3 Mitral Valve MV E to A Ratio: 0.60 Deceleration [place]: 2080 mm/s2 Mitral Valve A-Wave Peak Velocity: 103.00 cm/s Mitral Valve E-Wave Peak Velocity: 62.20 cm/s Right Ventricle RV Internal Diastolic Dimension: 3.04 cm Aorta AO Root Diam: 2.90 cm Aortic Valve AoV Area (Peak Bucky): 1.86 cm2 Deceleration [place]: 1080 mm/s2 Pressure Half-Time: 976 ms Peak Velocity: 361.00 cm/s Peak Gradient: 52 mm[Hg] Aortic Valve Cusp Separation: 1.50 cm Peak Velocity(Antegrade Flow): 138.00 cm/s Peak Gradient(Antegrade Flow): 8 mm[Hg] Tricuspid Valve Peak Velocity (Regurgitant Flow): 243.00 cm/s, 212.00 cm/s Pulmonic Valve Peak Velocity: 94.30 cm/s Peak Gradient: 4 mm[Hg] Right Atrium Dictated by: Alin Lisa M.D. on 04/06/2022 at 16:23 Approved by: Alin Lisa M.D. on 04/06/2022 at 16:27 Normal [facility] KIDNEYSon 04-06-2022 US KIDNEYS EXAMINATION: US KIDNEYS, grayscale and Doppler HISTORY: Essential hypertension COMPARISON: No relevant comparison available. TECHNIQUE: Ultrasound examination was performed of the bladder. FINDINGS: Right Kidney: The kidney is small in size. No solid cortical mass or hydronephrosis. The cortex measures 1.0 cm. Height: 4.2 cm Length: 7.9 cm Width: 4.3 cm Left Kidney: The kidney is small in size. No solid cortical mass or hydronephrosis. The cortex measures 0.7 cm Height: 3.9 cm Length: 7.6 cm Width: 4.6 cm Urinary bladder is normal in appearance. Volume 159 mL Doppler: Aorta: 90.4 cm/s Right renal artery: Proximal: 96 cm/s Mid: 82 cm/s Distal: 115 cm/s Left renal artery: Proximal: 141 cm/s Mid: 121 cm/s Distal: 76 cm/s IMPRESSION: Small atrophic appearance of the kidneys Elevated flow velocity in the left renal artery, consider renovascular hypertension Electronically authenticated by: BERTHA SOLIZ Date: 2022-04-06 16:45 Normal [facility] BNPon 03-17-2022 Natriuretic peptide B (Bld) [Mass/Vol] 193.0 pg/mL Normal <=1,800.0 [facility] Comment on above: Performed By: #### B AUTO AIR CONDITIONING MECHANIC, CMP #### [facility] [address] [place] [address] Dr. Arden Magallon CBC AUTO DIFFon 03-17-2022 BASO # 0.1 103/ul Normal 0.0-0.1 [facility] Comment on above: Performed By: #### B AUTO AIR CONDITIONING MECHANIC, CMP #### [facility] [address] [place] [address] Dr. Arden Magallon Basophils/100 WBC (Bld) 0.9 % Normal 0.2-2.0 [facility] Comment on above: Performed By: #### B AUTO AIR CONDITIONING MECHANIC, CMP #### [facility] [address] [place] [address] Dr. Arden Magallon EO # 0.4 103/ul Normal 0.0-0.7 [facility] Comment on above: Performed By: #### B AUTO AIR CONDITIONING MECHANIC, CMP #### [facility] [address] [place] [address] Dr. Arden Magallon Eosinophils/100 WBC (Bld) 4.7 % Normal 0.9-7.0 [facility] Comment on above: Performed By: #### B AUTO AIR CONDITIONING MECHANIC, CMP #### [facility] [address] [place] [address] Dr. Arden Magallon Erythrocyte distribution width (RBC) [Ratio] 14.2 % Normal 11.0-15.0 [facility] Comment on above: Performed By: #### B AUTO AIR CONDITIONING MECHANIC, CMP #### [facility] [address] [place] [address] Dr. Arden Magallon Hematocrit (Bld) [Volume fraction] 43.1 % Normal 36.0-48.0 [facility] Comment on above: Performed By: #### B AUTO AIR CONDITIONING MECHANIC, CMP #### [facility] [address] [place] [address] Dr. Arden Magallon Hemoglobin (Bld) [Mass/Vol] 14.1 g/dL Normal 12.0-16.0 [facility] Comment on above: Performed By: #### B AUTO [employer] CONDITIONING MECHANIC, CMP #### [facility] [address] [place] [address] Dr. Arden Magallon IG # 0.04 10e3/ul Critically high 0.00-0.03 [facility] Comment on above: Performed By: #### B AUTO AIR CONDITIONING MECHANIC, CMP #### [facility] [address] [place] [address] Dr. Arden Magallon IG % 0.5 % Normal 0.0-0.5 [facility] Comment on above: Performed By: #### B AUTO AIR CONDITIONING MECHANIC, CMP #### [facility] [address] [place] [address] Dr. Arden Magallon LYMPH # 3.0 103/ul Normal 1.2-3.8 [facility] Comment on above: Performed By: #### B AUTO AIR CONDITIONING MECHANIC, CMP #### [facility] [address] [place] [address] Dr. Arden Magallon Lymphocytes/100 WBC (Bld) 34.2 % Normal 20.5-60.0 [facility] Comment on above: Performed By: #### B AUTO [employer] CONDITIONING MECHANIC, CMP #### [facility] [address] [place] [address] Dr. Arden Magallon MANUAL DIFF REQ NO Normal [facility] Comment on above: Performed By: #### B AUTO AIR CONDITIONING MECHANIC, CMP #### [facility] [address] [place] [address] Dr. Arden Magallon MCH (RBC) [Entitic mass] 31.3 pg Normal 26.7-34.0 [facility] Comment on above: Performed By: #### B AUTO AIR CONDITIONING MECHANIC, CMP #### [facility] [address] [place] [address] Dr. Arden Magallon MCHC (RBC) [Mass/Vol] 32.7 g/dL Normal 29.9-35.2 [facility] Comment on above: Performed By: #### B AUTO AIR CONDITIONING MECHANIC, CMP #### [facility] [address] [place] [address] Dr. Arden Magallon MCV (RBC) [Entitic vol] 95.8 fL Normal 81.0-99.0 [facility] Comment on above: Performed By: #### B AUTO AIR CONDITIONING MECHANIC, CMP #### [facility] [address] [place] [address] Dr. Arden Magallon MONO # 1.2 103/ul Critically high 0.3-0.8 [facility] Comment on above: Performed By: #### B AUTO AIR CONDITIONING MECHANIC, CMP #### [facility] [address] [place] [address] Dr. Arden Magallon Monocytes/100 WBC (Bld) 13.5 % Critically high 1.7-12.0 [facility] Comment on above: Performed By: #### B AUTO AIR CONDITIONING MECHANIC, CMP #### [facility] [address] [place] [address] Dr. Arden Magallon NEUT # 4.1 103/ul Normal 1.4-6.5 [facility] Comment on above: Performed By: #### B AUTO [employer] CONDITIONING MECHANIC, CMP #### [facility] [address] [place] [address] Dr. Arden Magallon Neutrophils/100 WBC (Bld) 46.2 % Normal 43.0-75.0 [facility] Comment on above: Performed By: #### B AUTO AIR CONDITIONING MECHANIC, CMP #### [facility] [address] [place] [address] Dr. Arden Magallon Platelet mean volume (Bld) [Entitic vol] 11.2 fL Normal 9.5-13.5 [facility] Comment on above: Performed By: #### B AUTO AIR CONDITIONING MECHANIC, CMP #### [facility] [address] [place] [address] Dr. Arden Magallon PLT 160 103/ul Normal 150-450 [facility] Comment on above: Performed By: #### B AUTO AIR CONDITIONING MECHANIC, CMP #### [facility] [address] [place] [address] Dr. Arden Magallon RBC 4.50 106/ul Normal 4.20-5.40 [facility] Comment on above: Performed By: #### B AUTO AIR CONDITIONING MECHANIC, CMP #### [facility] [address] [place] [address] Dr. Arden Magallon WBC 8.9 103/ul Normal 4.0-11.0 [facility] Comment on above: Performed By: #### B AUTO AIR CONDITIONING MECHANIC, CMP #### [facility] [address] [place] [address] Dr. Arden Magallon PROF 14(COMP METB)on 022 Albumin [Mass/Vol] 4.0 g/dL Normal 3.4-5.0 [facility] Comment on above: Performed By: #### B AUTO AIR CONDITIONING MECHANIC, CMP #### [facility] [address] [place] [address] Dr. Arden Magallon Albumin/Globulin [Mass ratio] 1.2 {ratio} Normal [facility] Comment on above: Performed By: #### B AUTO AIR CONDITIONING MECHANIC, CMP #### [facility] [address] [place] [address] Dr. Arden Magallon ALP [Catalytic activity/Vol] 74 U/L Normal 46-116 [facility] Comment on above: Performed By: #### B AUTO AIR CONDITIONING MECHANIC, CMP #### [facility] [address] [place] [address] Dr. Arden Magallon ALT [Catalytic activity/Vol] 28 U/L Normal 14-59 [facility] Comment on above: Performed By: #### B AUTO AIR CONDITIONING MECHANIC, CMP #### [facility] [address] [place] [address] Dr. Arden Magallon Anion gap [Moles/Vol] 11.9 mmol/L Normal [facility] Comment on above: Performed By: #### B AUTO AIR CONDITIONING MECHANIC, CMP #### [facility] [address] [place] [address] Dr. Arden Magallon AST [Catalytic activity/Vol] 18 U/L Normal 15-37 [facility] Comment on above: Performed By: #### B AUTO AIR CONDITIONING MECHANIC, CMP #### [facility] [address] [place] [address] Dr. Arden Magallon Bilirubin [Mass/Vol] 0.4 mg/dL Normal 0.2-1.0 [facility] Comment on above: Performed By: #### B AUTO AIR CONDITIONING MECHANIC, CMP #### [facility] [address] [place] [address] Dr. Arden aMgallon Calcium [Mass/Vol] 9.7 mg/dL Normal 8.5-10.1 [facility] Comment on above: Performed By: #### B AUTO AIR CONDITIONING MECHANIC, CMP #### [facility] [address] [address] [address] Arden Magallon Chloride [Moles/Vol] 105 mmol/L Normal 98-107 [facility] Comment on above: Performed By: #### B AUTO AIR CONDITIONING MECHANIC, CMP #### [facility] [address] [place] [address] Dr. Arden Magallon CO2 [Moles/Vol] 26.3 mmol/L Normal 21.0-32.0 [facility] Comment on above: Performed By: #### B AUTO AIR CONDITIONING MECHANIC, CMP #### [facility] [address] [place] [address] Dr. Arden Magallon Creatinine [Mass/Vol] 1.31 mg/dL Critically high 0.55-1.02 [facility] Comment on above: Performed By: #### B AUTO AIR CONDITIONING MECHANIC, CMP #### [facility] [address] [place] [address] Dr. Arden Magallon EGFR-AF BRITISH 47 mL/min/1.73m2 Critically low >=60 [facility] Comment on above: Performed By: #### B AUTO AIR CONDITIONING MECHANIC, CMP #### [facility] [address] [place] [address] Dr. Arden Magallon EGFR-NON AF BRITISH 38 mL/min/1.73m2 Critically low >=60 [facility] Comment on above: Performed By: #### B AUTO AIR CONDITIONING MECHANIC, CMP #### [facility] [address] [place] [address] Dr. Arden Magallon Globulin (S) [Mass/Vol] 3.3 g/dL Normal [facility] Comment on above: Performed By: #### B AUTO AIR CONDITIONING MECHANIC, CMP #### [facility] [address] [address] [address] Arden Magallon Glucose [Mass/Vol] 111 mg/dL Critically high 74-106 [facility] Comment on above: Performed By: #### B AUTO AIR CONDITIONING MECHANIC, CMP #### [facility] [address] [address] [address] Arden Magallon Potassium [Moles/Vol] 4.2 mmol/L Normal 3.5-5.1 [facility] Comment on above: Performed By: #### B AUTO AIR CONDITIONING MECHANIC, CMP #### [facility] [address] [place] [address] Dr. Arden Magallon Protein [Mass/Vol] 7.3 g/dL Normal 6.4-8.2 [facility] Comment on above: Performed By: #### B AUTO AIR CONDITIONING MECHANIC, CMP #### [facility] [address] [address] [address] Arden Magallon Sodium [Moles/Vol] 139 mmol/L Normal 136-145 [facility] Comment on above: Performed By: #### B AUTO AIR CONDITIONING MECHANIC, CMP #### [facility] [address] [address] [address] Arden Magallon Urea nitrogen [Mass/Vol] 24.0 mg/dL Critically high 7.0-18.0 [facility] Comment on above: Performed By: #### B AUTO AIR CONDITIONING MECHANIC, CMP #### [facility] [address] [address] [address] Arden Magallon Urea nitrogen/Creatinine [Mass ratio] 18.3 mg/mg Normal [facility] Comment on above: Performed By: #### B AUTO AIR CONDITIONING MECHANIC, CMP #### [facility] [address] [place] [address] Dr. Arden Magallon TROPONIN, HIGH SENSITIVITYon 03-17-2022 HSTROP 8.6 pg/mL Normal 4.0-51.3 [facility] Comment on above: Result Comment: CUT- OFF POINTS HAVE BEEN ESTABLISHED BASED ON THE FOURTH UNIVERSAL DEFINITIONS OF MYOCARDIAL INFARCTION. THE UPPER REFERENCE LIMIT (URL) OF TROPONIN, DEFINED THE 99TH PERCENTILE OF cTnI DISTRIBUTION IN A REFERENCE POPULATION, HAS BEEN CONFIRMED THE DECISION THRESHOLD FOR NM DIAGNOSIS. Performed By: #### C BC #### [facility] [address] [place] [address] Dr. Arden Magallon Coding Summary.on 03-04-2022 Coding Summary. CD:[id number] Gh0bWw+PGhlYWQ+PE1FV NJsC60lqRWloX6OU7qCH W1GNKYFMSZCMA9WTW2bf EB8PTksX9SmfvBp BmvlvYKiNC19YNt5VDT1 bZwfYGnbvF7rpHTtV5o3 UwDsCT24bT56DSfbOCAk TfX9RfRyjjqhpSCo L0aoUmLfyKTmNgj+PHRh YmxlIHdpZHRoPScxMDAl SoMloMfxGM4uFy2qSTJw LWNvbGxhcHNlOiBj g7woXVMrERwgMJ2idEqe C9KbbSB7FOIfo8e1Xa59 dHI+AUGpMCB2dBfiGByo q970MhFos4pkGRW7 mFBkXAwgBJG2L92kd1E4 UWSoLHPgHFT7gCM6jL6w aNyfpnvjO2VyrPEnZqV2 GBR5dBUzhY6psUnt sdjlyD2xYpf+I88VAG5D UGOIRA2QBsj6V4KwOknf dHI+AG01XMXaXY02qVFx gHBtw1mazBj4GtDh HJJlRPC4wDdqDJibv1Ts UZYuW59lgDFdz9M9KSHx dVbkbIYsBhJsmJE9tF1g BByupxizj3wwqmom Jifjd5zgdl17zB16C76d LIyfCCPpJLG7ZSVhWSOq wDgdcb1koT5rKk8+IDxj w1mku0jneSi9MtQh YJOaxqUvdBrxIVE3h2Mm Rn61M6MizNumj5PgRvj7 zs16gRPlm3O8xGX8OMzw EFLvfY9nZPhsVxP5 VGJcPzOggQ80xHReVOji Gg9etWybxMjtXC0nBXLm ybwlOQWxmW2cKXZmwETu jWrhBX1gHWAsncvr c148IeAhNON4TBWfjQBp S8YfrF0gObUiVJLhHCAe C0EpnZLlOKjwP912ELdn PkW3VOJfldWeC7Iv LBVpbEfiOrT3j3V4Ek9L t5IerzqeTZR0BNhfHBG9 PaN8RaHrZbJ8Y9EuNra2 LKCgoWvqYH3dD7St YAGulhveravkjYT8JUKu SVCyoR55wYXtYDulLn6q k3F0j683LAUyJNHlpJ00 Lr8faRhhENYbnOSC cJ1nprvdt4qvjhrzJhKd ICSfYPw5UAw7JKKjfTxy AzDtBVH3ZqS4XLL3zKSv aS7cnTreesppwO2p Oyc+I14osJ1eBPG2PDI7 tgnqLJDhhoAwMV54CY07 U9CdDswiaROwiVJ+PGRp mfQorFxsMA4oBbWc z8dsj9TsKFlrE0PoAQAc GEsnRzh7XJFeLND0nJV7 fD2lOHDaPDdgq7W1hIR4 Q0MzzhYuxd5gi0er GNAgBLwjX36vxHLvu3H0 MLBmhVQ7IAPhcOxeNdUj xQ38Dqi+AEAcbRwwg9Ca Xjopx3lyo2vliXn6 IjMwJSIgdmFsaWduPSJ0 u9JhZv32M56lWAxrXIBh MKPrFNNnMUHizHxsmw0j tR7bEi0+PGNvbCB3 lXH8iY4cHWHjTuR6HGfk B506EiTuwMWhPmicd9ly p2oomLn0GgBuHOMvavQp uCtbZFT0c3InCm30 Y22bYBooSIIgYKUzIBOi OJZcaArbws2ihT8mQx6+ UX2nb7wybh47sP42jOB+ HFSoGIJ9yRwpFWpl JJMtoG3pZEunIhS0BOAj WwDfjY42sSInDIzeLt9v dLmwuLupDL8qEPZcfghs b299LvJuq4xoYJVo iUNtFNswMYY0R01sy3B0 CLElXPZyGZE9qAV9bE6f bGlnbjogbGVmdDsgdmVy yOuuTFuxVLkcJ840 IHRvcDsnPlBhdGllbnQg OdPuURw9T1HkMqw6WFRc rZigXL6kkLYwTQzjHk6m fJyxcVarMQ2uABEo tmquc201LyEhg5grIEEy zWBvBNwrUAU9F75mz4V8 ELMmMRZtIFT0hBK0yH3e bGlnbjogbGVmdDsg qlVveTsiZPfuXDziC898 IHRvcDsnPkJpcnRoIERh zEU1TN92FU82tDBaa3D6 fBL1Y2QrQDTyilam fcmphFM0YOArTKEmbH93 Yo9tjYqxWd9wZIViDEH6 TRTvuINaV9LxpK9jGnXt RINwUZHvM9IexCXd NDrsV988AFmbJhQ3FXOq clOrW7KzHOUkfSxoHhK3 q3Y9Na6TZ3F5BS12YG58 kILip7L8tDR9C9Cg SHUgleeagkcsyFR5JYCj SOFzeR68Ux3klVwmQs8z QNJzFSY2AVUhjDJuS4Um pC2sMiPlTLFnNUIv D1ObkLYtAWjaE831FMaw VqN9STVpzlYtR2JqMNWe dZppVvB2c6I1Qe3MWSh7 LT82ZF33kTKkx8J8 qAT7Y7PdJCWrfsbqflmm mIR8YMQsFSTeyT26Cx7w xPduZt4lTYWdCFH3JIZf iBAiQ7OcmR5oMvJg TIMaVXMdX5GenUWgQDxw T631GDqaRhE0XYYwirJw Y2MmNBObdEhaLgN0z0R5 Rp5OCJCjDR86COU7 cAJ6CU24CE81L9PtNmrb dGFibGU+PHRhYmxlIHdp ZHRoPScxMDAlJyBzdHls FX4vFl9hYZFnVUSh zJqwmWLyElFbv4zzSTVl EYxzYB3jzIhuK5PexSX2 VBFjw6x8Tt28H83dM3Bb dXA+WVCqdKM2gSL1 qP3hRdXxXiA1UQiaL445 DyMnkMAwNbwkz3gyy6fd oDz9AsL5YOUnwxZjhHar WNY4v2HkBt88M84f IHdpZHRoPSIxNSUiIHZh vMvqru8jwZ4kGv8+PGNv cAS6pFN9nH9qAoQfKcO0 IYhqY853OhLdfIPq Guwoh9xnu3xloBv8CjHh ROEuevSndXsjGUA1h9Ao Ek91Q6QdhQzte5DxLlp0 se82wGHhy2X5kHD7 B4RcRJCdaxrisPAngJal MK3tASNtduzuHVDwrQ4g OTZuL9k7AwOtCcP0RFeq Z4ExqvE4ABGkmEMf AFiiLRS7U46nx6P3ANXe VVVsEJI4rNV9zU6ivAts bjogbGVmdDsgdmVydGlj UNhpMDfvX529RKBu aGtgUJGtmO7rOKCfuPOb uYsdJJ3cDWCejjgaLzER SVRaLCBERUxFRTwvdGQ+ SSHfVJY5pPuxEKlj ZCWusZ4uQVNwB9z3UqBb GtU9ARocG7LcVJGzrmle Hm03kP5qDvQpWmT7QHfu H9BgsiE9NQBxhCGk HEziBQS4B04gb1S5JKCz JUDbRXC2pZA1jO2pgHom bjogbGVmdDsgdmVydGlj DLdpRTjbW862JAMw gXdoVtLsVqP5MiF9TgP6 Q8JvUcl7LIFntUinZU0k eTZjBPxjAr4eeYidcWpb RY3nKZNnczxuRCLl xT8nIQWiiCEfcSbfKN3a NOMgefszv459BiLoOCN0 RGCkoPJrI9BhfC3eEpKq CQIiUJSzL5FaeGRx DQzhA485MQerKzR6GTWo dbUmT4AgOHXczVzfAqL4 m4U1Vh97YyHGEPCklist dGQ+HNQwCSU1wIog ERkjMMTzpK9gDOHhT6u3 ArVoVeK1DQufO3MlNCXv pmehXu65dG7kXrNoOpI6 UYoiX5QpojU8DEEf mNPoBTsiADA5W40lj2O1 ZVYqUPRlGGL1bHH4dE8k bGlnbjogbGVmdDsgdmVy rResOEpoPWzyI871 IHRvcDsnPkZlbWFsZTwv dGQ+OOUwEBP7gScsJKuf PIFcbE3oTIIiA7z7XiZc YxJ6EVnhL9RlKHTl oriwOk91rP9fWdNaDlM5 JJppD3PnwrA3TWJfzOGp SHqhZYS7D18ab4U2IWYr PZChRJY8vKW1yJ2i bGlnbjogbGVmdDsgdmVy pMdlJCsdVNxlO891OLBa cIneUcQmGJBqFF1yyBfi dGQ+YO28ez35Z9Qs ZhsiBwt4JCKyVKV6oNB5 lM5aTPYmNBzmz2Q1hZJ5 Q5HptvHekf4fm0qmFHEz IBmwI75bfWZkj3B4 YLOyeLZ3CLWubWdtIkIb wY73Jzv+ZYOeoDhco6Yg Jqjbn2koy2yenYx7RwYb JSIgdmFsaWduPSJ0 q3WrGh40P62zVHvnZSRv PUJfXAOqJJCjlKbhyf5u oU2fNa5+VXWduHO2gKM6 iH7vTaVlIpT0TIrd Q855HrKwmGQlSzphu1ws e6rpeOq2HlAiHEFxwpDi pMfaDJP7z0QzJc13W2Xk hJihp4InJyn7qm57 rYRtd9L6uAF1H6RcJJHz wezjpGRoeNvxPX6xEXHx hfklQLBqtP5xHZBnV7a8 NnAlWoP3PCwzM0Tr xeX8REHtmOVuZJHkzPYG xD2vuluvp4vtnzjgGgPg PQZyAHe9MAv5CUUltGta PrCkHXB5BnI8HQH7 tCFdwA1zcQacuvuegW1v Oyc+CEj0u6kskGFzXW7y bSG5AK42PF61jXQzg7N8 tQG8A0YxKZIzrsir odeddVZ7XKCwIBKhgI34 Wh8bnHjfCd4aJTWmBNE8 PKXnqEBdW3ZwhB8tUkNe JYSlNHPkD3BuaXIz ZTwaE122IZxlQbU0HMIk itXbJ7JdWSHrgIhxXwP6 t6C5Fb2BBD15OI61SY97 mTIsw9C8tLG4Z9Gv XZFyiywueynesFK0RPZx IITaiF86Nb0rxDypOm2j FAEqXAM7WQVwbHNbD5Ld aB2bQjSoMHEoJIUm M9IrxAByBTgqZ824MGft PnB5KSFcnrUoC8LjOECv uEiiSdI6h1I2Av9EKa13 IW11CJ11uIEfa2Q7 nKB4L9RuJXVqinlqlayv hGT3XZPgCAQcaJ86So5k vVmsMm8jHMHqXQX6PTXa wDWcR4RpzA8nFxEu WIEjXULbE4EznHHoPTgu V810GTxpAzV1NHDfxxAh H1NzNENwcCgpWkF1t7K7 Ze7XSYhgarh4N1Af PjwvdHI+VL56LYXyCW26 vGXfgKGim7aotOw1JlYn CGWgIWP8yBvmMRakm0Vo WQHkK36tjVHbb8I8 IGNv (more content not included)... Normal [facility] Auto Diffon 02-24-2022 Basophils/100 WBC (Bld) 4.4 % High 0.0-2.[address] [facility] Comment on above: Order Comment: Order Added by Discern Expert. Performed By: #### 1 [id number], [id number], [id number], [id number], [id number] #### [facility] [address] [place] [address] Basophils/Leukocytes Auto (Bld) [Pure # fraction] 0.3 E9/L High 0.0-0.[address] [facility] Comment on above: Order Comment: Order Added by Discern Expert. Performed By: #### 1 [id number], 2105944, 97260206, 4525213, 9883299 #### [facility] [address] [place] [address] Eosinophils/100 WBC (Bld) 3.8 % Normal 0.0-8.[address] [facility] Comment on above: Order Comment: Order Added by Discern Expert. Performed By: #### 1 [id number], 9886440, 52159609, 0771205, 1281736 #### [facility] [address] [place] [address] Eosinophils/Leukocytes Auto (Bld) [Pure # fraction] 0.3 E9/L Normal 0.0-0.[address] [facility] Comment on above: Order Comment: Order Added by Discern Expert. Performed By: #### 1 [id number], 5402256, [id number], 2165566, 0100213 #### [facility] [address] [place] [address] Lymphocytes/100 WBC (Bld) 31.3 % Normal 14.0-50.[address] [facility] Comment on above: Order Comment: Order Added by Discern Expert. Performed By: #### 1 [id number], 9802463, 65020486, 0309628, 6334796 #### [facility] [address] [place] [address] Lymphocytes/Leukocytes Auto (Bld) [Pure # fraction] 2.3 E9/L Normal 1.0-4.[address] [facility] Comment on above: Order Comment: Order Added by Discern Expert. Performed By: #### 1 [id number], 5860035, 28036026, 8262156, 9765569 #### [facility] [address] [place] [address] Monocytes/100 WBC (Bld) 12.8 % Normal 4.0-14.[address] [facility] Comment on above: Order Comment: Order Added by Andrew Expert. Performed By: #### 1 [id number], 4956125, 15652189, 4160318, 7483027 #### [facility] [address] [place] [address] Monocytes/Leukocytes Auto (Bld) [Pure # fraction] 0.9 E9/L Normal 0.2-1.[address] [facility] Comment on above: Order Comment: Order Added by Andrew Expert. Performed By: #### 1 [id number], 0310965, 66568599, 2152161, 8803032 #### [facility] [address] [place] [address] Neutrophils/100 WBC (Bld) 47.7 % Normal 36.0-75.[address] [facility] Comment on above: Order Comment: Order Added by Andrew Expert. Performed By: #### 1 [id number], 4734135, 20097765, 0883036, 3295131 #### [facility] [address] [place] [address] Neutrophils/Leukocytes Auto (Bld) [Pure # fraction] 3.5 E9/L Normal 2.0-7.[address] [facility] Comment on above: Order Comment: Order Added by Discern Expert. Performed By: #### 1 5190410, 2194055, 15561799, 0195620, 3109211 #### [facility] [address] [place] [address] BMPon 02-24-2022 Creatinine [Mass/Vol] 0.9 mg/dL Normal 0.5-1.3 [facility] Comment on above: Performed By: #### 1 1516349, 9955367, 16540025, 1938118, 3979747 #### [facility] [address] [place] [address] Urea nitrogen [Mass/Vol] 20 mg/dL Normal 5-[address] [facility] Comment on above: Performed By: #### 1 [id number], 9632052, 69032648, 2038047, 3138139 #### [facility] [address] [place] [address] Urea nitrogen/Creatinine [Mass ratio] 22 No Units High 10-[address] [facility] Comment on above: Performed By: #### 1 [id number], 6932845, 42932418, 4874525, 3140199 #### [facility] [address] [place] [address] Anion gap [Moles/Vol] 13 mmol/L Normal 6-16 [facility] Comment on above: Performed By: #### 1 4741139, 8712179, 33229270, 6981990, 9380568 #### [facility] [address] [place] [address] Calcium [Mass/Vol] 9.9 mg/dL Normal 8.9-11.[address] [facility] Comment on above: Performed By: #### 1 2377169, 3891709, 91393677, 1268385, 8410922 #### [facility] [address] [place] [address] Chloride [Moles/Vol] 104 mmol/L Normal 101-[address] [facility] Comment on above: Performed By: #### 1 8564925, 4973850, 39642839, 4513418, 8801100 #### [facility] [address] [place] [address] CO2 [Moles/Vol] 24 mmol/L Normal 21-31 [facility] Comment on above: Performed By: #### 1 8618035, 0528680, 89334709, 1122426, 9301942 #### [facility] [address] [place] [address] Glucose [Mass/Vol] 136 mg/dL Normal 55-[address] [facility] Comment on above: Result Comment: If t his glucose result represents a fasting glucose, interpretation should refer to the following reference range: 55-99 mg/dL Performed By: #### 1 4737191, 8648568, 03493815, 7143809, 6883939 #### [facility] [address] [place] [address] Potassium [Moles/Vol] 3.7 mmol/L Normal 3.5-5.3 [facility] Comment on above: Performed By: #### 1 6568612, 2534715, 05582958, 1929122, 9282640 #### [facility] [address] [place] [address] Sodium [Moles/Vol] 137 mmol/L Normal 135-[address] [facility] Comment on above: Performed By: #### 1 6297864, 3442934, 52124967, 2333478, 8528452 #### [facility] [address] [place] [address] CBC w/ Auto Diffon 2 Erythrocyte distribution width (RBC) [Ratio] 15.3 % High 10.9-14.[address] [facility] Comment on above: Performed By: #### 1 4726057, 4384677, 70155548, 1340128, 9170367 #### [facility] [address] [place] [address] Hematocrit (Bld) [Volume fraction] 43.0 % Normal 34.0-46.[address] [facility] Comment on above: Performed By: #### 1 4487544, 7359750, 64440114, 6735987, 6275548 #### [facility] [address] [place] [address] Hemoglobin (Bld) [Mass/Vol] 14.4 g/dL Normal 12.0-16.[address] [facility] Comment on above: Performed By: #### 1 5671422, 9881274, 64735142, 5070751, 0090401 #### [facility] [address] [place] [address] MCH (RBC) [Entitic mass] 31.0 pg Normal 27.0-34.[address] [facility] Comment on above: Performed By: #### 1 5331128, 4899593, 84446064, 9033690, 2322585 #### [facility] [address] [place] [address] MCHC (RBC) [Mass/Vol] 33.6 g/dL Normal 31.4-36.0 [facility] Comment on above: Performed By: #### 1 9752145, 5220375, 21701199, 4975972, 9864700 #### [facility] [address] [place], [place] [id number] MCV (RBC) [Entitic vol] 92.2 fL Normal 80.0-100.[address] [facility] Comment on above: Performed By: #### 1 9470019, 1705701, 17052977, 0084322, 7143197 #### [facility] [address] [place] [address] Platelet mean volume (Bld) [Entitic vol] 9.2 fL Normal 6.4-10.[address] [facility] Comment on above: Performed By: #### 1 8196048, 8348625, 19142181, 7473774, 0361841 #### [facility] [address] [place] [address] Platelets (Bld) [#/Vol] 137.0 E9/L Low 150.0-500.[address] [facility] Comment on above: Performed By: #### 1 0281485, 9994965, 37578208, 0235648, [id number] #### [facility] [address] [place] [address] RBC (Bld) [#/Vol] 4.7 E12/L Normal 4.3-5.[address] [facility] Comment on above: Performed By: #### 1 [id number], [id number] #### [facility] [address] [place] [address] WBC corrected for nucl RBC Auto (Bld) [#/Vol] 7.3 E9/L Normal 4.0-11.0 [facility] Comment on above: Performed By: #### 1 [id number], [id number] #### [facility] [address] [place] [address] CHEMISTRYOrdered By: SYSTEM SYSTEM on 02-24-2022 Anion gap [Moles/Vol] 13 mmol/L Normal 6 - 16 mEq/L [facility] Remisol Calcium [Mass/Vol] 9.9 mg/dL Normal 8.9 - 11. 1 mg/dL [facility] Remisol Chloride [Moles/Vol] 104 mmol/L Normal 101 - 1 11 mmol/L [facility] Remisol CO2 [Moles/Vol] 24 mmol/L Normal 21 - 31 mmol/L [facility] Remisol Creatinine [Mass/Vol] 0.9 mg/dL Normal 0.5 - 1.3 mg/dL [facility] Remisol Glucose [Mass/Vol] 136 mg/dL Normal 55 - 199 mg/dL [facility] Remisol Potassium [Moles/Vol] 3.7 mmol/L Normal 3.5 - 5.3 mmol/L [facility] Remisol Sodium [Moles/Vol] 137 mmol/L Normal 135 - 145 mmol/L [facility] Remisol Troponin I.cardiac [Mass/Vol] 8.10 pg/mL Low 10.10 - 27.10 pg/mL [facility] Remisol Urea nitrogen [Mass/Vol] 20 mg/dL Normal 5 - 21 mg/dL [facility] Remisol Urea nitrogen/Creatinine [Mass ratio] 22 mg/mg High 10 - 20 [facility] Remisol COAGULATIONOrdered By: Belkis Watson on 02-24-2022 aPTT Coag (PPP) [Time] 25.4 s Normal 25.1 - 36.5 second(s) [facility] [place] INR Coag (PPP) [Relative time] 1.1 {INR} Invalid Interpretation Code [facility] [place] [facility] PT Coag (PPP) [Time] 13.4 s High 10.2 - 12.9 second(s) [facility] [place] Head or Brain w/o Contras ton 02-24-2022 CT Head or Brain w/o Contrast Exam Date/Time: 02/24/2022 08:40 EDT Reason for Exam: Headache, intracranial hemorrhage suspected;Other (please specify) Report IMPRESSION: NEGATIVE NONCONTRAST HEAD CT. EXAM: CT Head or Brain w/o Contrast DATE: 02/24/2022 CLINICAL HISTORY: Headache, intracranial hemorrhage suspected. COMPARISON: None available. TECHNIQUE: Routine. All CT scans at this facility use dose modulation, iterative reconstruction, and/or weight based dosing when appropriate to reduce radiation dose to as low as reasonably achievable. FINDINGS: There is no intracranial hemorrhage, mass effect, midline shift, extra-axial collection, evidence of hydrocephalus, skull fracture, or a recent ischemic infarct identified. There is no significant atrophy, or white matter changes, for age. The mastoid air cells and visualized paranasal sinuses are essentially clear. Both optic globes and orbital contents are unremarkable. FINAL REPORT Dictated: 02/24/2022 8:50 am Jacob Coon MD Signed (Electronic Signature): 02/24/2022 8:50 am Signed by: Jacob Coon MD Transcribed by: KHANH Technologist: EMELINA Normal [facility] Consent for Treatmenton 02-06 Consent for Treatment [id number] 20 [id number] #1.00CD:[address] [facility] Discharge Instructionson Discharge Instructions [id number] 050 [id number] #1.00CD:[address] [facility] ED Clinical Summaryon 2021 ED Clinical Summary [address], [place] [address] ED Clinical Summary Person Information Name: ZORAIDA BARRIOS/New_Steven Age: 86 Years : 1935 Sex: Female Language: Turkmen PCP: AMELIA FREY MD Marital Status: Single Visit Id: Visit Reason: Headache; Hypertension; SENT BY DR QUINONES, HIGH BLOOD PRESSURE, HEADACHE Speciality: Acuity: 2 Enc Type: Emergency Med Service: Emergency Arrival: 02/24/2022 08:11:05 Discharge: 02/24/2022 10:31:58 LOS: 000 02:20 Checkin: 02/24/2022 08:11:05 Checkout: 02/24/2022 10:31:58 Dispo Type: Home (Routine DC) EVENTS: Event Name Event Status Request Date/Time Start Date/Time Complete Date/Time Arrive Complete 02/24/2022 08:11:05 02/24/2022 08:11:05 02/24/2022 08:11:05 Document Home Meds Request 02/24/2022 08:11:05 Triage Complete 02/24/2022 08:11:05 02/24/2022 08:21:24 02/24/2022 08:21:24 No Visitors Cancel 02/24/2022 08:13:53 02/24/2022 09:26:45 Bed Assign Complete 02/24/2022 08:14:36 02/24/2022 08:14:36 02/24/2022 08:14:36 Dr Exam Complete 02/24/2022 08:14:36 02/24/2022 08:14:51 02/24/2022 08:14:51 RN Exam Complete 02/24/2022 08:14:36 02/24/2022 08:44:21 02/24/2022 08:44:21 Registration Complete 02/24/2022 08:14:51 02/24/2022 08:52:16 02/24/2022 08:52:16 EKG Complete 02/24/2022 08:17:47 02/24/2022 08:46:09 Pending Labs Request 02/24/2022 08:25:08 Lab Complete 02/24/2022 08:25:08 02/24/2022 08:49:20 Patient Care Request 02/24/2022 08:25:08 RT Request 02/24/2022 08:25:08 X-Ray Complete 02/24/2022 08:25:08 02/24/2022 08:35:34 02/24/2022 08:44:35 CT Complete 02/24/2022 08:26:15 02/24/2022 08:29:33 02/24/2022 08:40:27 Meds Admin Complete 02/24/2022 08:26:38 02/24/2022 08:29:48 Pending Labs Complete 02/24/2022 08:35:43 02/24/2022 08:35:43 02/24/2022 08:35:44 Pending Labs Complete 02/24/2022 08:40:08 02/24/2022 08:40:08 02/24/2022 08:40:15 Lab Complete 02/24/2022 08:40:08 02/24/2022 08:40:08 02/24/2022 08:40:15 Wet Read Request 02/24/2022 08:44:35 Reg Complete Request 02/24/2022 08:52:16 Reg Bed Request Complete 02/24/2022 08:52:16 02/24/2022 08:52:16 02/24/2022 08:52:16 Discharge Complete 02/24/2022 10:24:20 02/24/2022 10:32:06 02/24/2022 10:32:06 Transfer Complete 02/24/2022 10:32:06 02/24/2022 10:32:06 02/24/2022 10:32:06 ADDRESS: [address] [place] [id number] PHYS DOC NOTES: MEDICAL INFORMATION: Prescriptions Given: PATIENT EDUCATION INFORMATION: Instructions: Hypertension, Adult Follow up: With: Address: When: AMELIA FREY [address] [place] [id number] Business (1) In 3 days 02/27/2022 Comments: Increase Losartan to 100 mg a day. Continue Metoprolol 50 mg a day. Make sure to take your blood pressure twice a day and follow-up with Dr. Frey tomorrow at 1 PM at her office. Return to the emergency room if your headache recurs, chest pain, dizziness or any new symptoms. DIAGNOSIS: 1:Accelerated hypertension Normal [facility] ED Note-Physicianon 02-25-20 ED Note-Physician Basic Information Time Seen: Loboailyn PalaciosDemond 02/24/2022 08:14 Chief Complaint Pt had surgery on right eye this AM with [facility]. Pt reports her BP was elevated this AM before and after surgery. BP was over 200 at [facility]. Had a headache at the time, but not in ED. Denies all other s/s. History of Present Illness The patient is an 86-year-old female past medical history of hypertension who presented to the emergency room with elevated blood pressure and headache. The patient states she takes her blood pressure medication in the morning. States she takes metoprolol. She states she had dizziness last week that resolved. She has been having slight headache on and off. She states she had some headache earlier that has resolved. The patient was at Dr. Jorge's office for right eye laser surgery and her blood pressure was 289/106. The patient denies any chest pain. She denies any dizziness currently. Denies any blurred vision. Denies any weakness on extremities. The patient denies any other associated symptoms. Review of Systems Additional ROS info: Except as noted in the above Review of Systems and in the History of Present Illness all other systems have been reviewed and are negative or noncontributory. Physical Exam Vitals & Measurements T: 36.8 ?C(Oral) HR: 66(Peripheral) RR: 16 BP: 190/80 SpO2: 99% HT: 158 cm HT: 158.0 cm WT: 53 kg WT: 53.0 kg BMI: 21.23 General: alert, no acute distress Skin: warm, dry Head: no trauma, normocephalic Neck: Trachea midline, no tenderness, supple Eye: normal conjunctiva, sclera clear, right pupil is dilated ENMT: Oral mucosa moist, no pharyngeal erythema or exudate Cardiovascular: regular rate and rhythm Respiratory: Lungs CTA, respirations non labored, breath sounds equal Gastrointestinal: soft, non distended, no tenderness, no guarding Extremities: no deformity, no trauma Neurological: Alert and oriented, CN II-XII intact, motor strength equal & normal bilaterally, sensation equal & normal bilaterally, speech normal, no focal neuro deficits Psychiatric: cooperative, affect appropriate for age, Medical Decision Making Patient presented with elevated blood pressure. She reported headache. Her blood pressure at the manager [employer] office was 289/106. In the emergency room her blood pressure has dropped slightly to 260/109. The patient reported slight headache that has improved upon arrival to the emergency room. EKG shows no acute ischemic changes left ventricular hypertrophy. Blood work reveals normal renal function. Troponin is negative. The chest x-ray shows no acute cardiopulmonary disease. The patient was given 1 dose of hydralazine 10 mg IV and her blood pressure improved to 190/80. The case is discussed with Dr. Frey patient's primary care who agreed to increase losartan to 100 mg daily from 50 and she will see her tomorrow in her office. The patient is instructed to return to the emergency room if her headache recurs, chest pain, dizziness or any new symptoms. Assessment/Plan 1. Accelerated hypertension (I10: Essential (primary) hypertension) Orders: hydrALAZINE, 10 mg = 0.5 mL, Injection, IV Push, Once, Stop date 02/24/22 8:26:00 EDT, STAT, Start date 02/24/22 8:26:00 EDT, 02/24/22 8:26:00 EDT Automated Diff Basic Metabolic Panel CBC w/ Auto Diff CT Head or Brain w/o Contrast ED Cardiac Monitoring Extra SST Tube Oxygen Saturation Oxygen Therapy PT & PTT Saline Lock Insert Troponin 0 Hr. Troponin 3 Hr. Troponin 6 Hr. Troponin 9 Hr. XR Chest Single View Medications Administered Given hydrALAZINE 20 mg/mL Inj, 10 mg, IV Push Disposition Plan Patient Discharge Condition Stable, improved Discharge Disposition Discharged home Discharge Prescription List Prescriptions No active prescription medications Follow-up With When Contact Information AMELIA FREY In 3 days 02/27/2022 EDT [address] [place] [address]- Business (1) Additional Instructions: Increase Losartan to 100 mg a day. Continue Metoprolol 50 mg a day. Make sure to take your blood pressure twice a day and follow-up with Dr. Frey tomorrow at 1 PM at her office. Return to the emergency room if your headache recurs, chest pain, dizziness or any new symptoms. Patient Education Hypertension, Adult Problem List/Past Medical History Ongoing No qualifying data Historical No qualifying data Medications Inpatient No active inpatient medications Home No active home medications Allergies sulfa drugs (Unknown) Social History Alcohol - Low Risk, 02/24/2022 Substance Abuse - Denies Substance Abuse, 02/24/2022 Tobacco - Denies Tobacco Use, 02/24/2022 Lab Results WBC: 7.3 E9/L (02/24/22 08:30:00) RBC: 4.7 E12/L (02/24/22 08:30:00) HGB: 14.4 gm/dL (02/24/22 08:30:00) Hct: 43 % (02/24/22 08:30:00) MCV: 92.2 fL (02/24/22 08:30:00) MCH: 31 pg (02/24/22 08:30:00) MCHC: 33.6 gm/dL (02/24/22 08:30:00) RDW: 15.3 % High (02/24/22 0 (more content not included)... Normal [facility] Comment on above: Result Comment: Elec tronically Signed By: Norma Palacios, Demond Collins\.br\Date and Time Signed: 02/24/22 11:07 EDT ED Patient Education Noteon 02-24-2022 ED Patient Education Note Cardiovascular Hypertension, Adult High blood pressure (hypertension) is when the force of blood pumping through the arteries is too strong. The arteries are the blood vessels that carry blood from the heart throughout the body. Hypertension forces the heart to work harder to pump blood and may cause arteries to become narrow or stiff. Untreated or uncontrolled hypertension can cause a heart attack, heart failure, a stroke, kidney disease, and other problems. A blood pressure reading consists of a higher number over a lower number. Ideally, your blood pressure should be below 120/80. The first ( top ) number is called the systolic pressure. It is a measure of the pressure in your arteries as your heart beats. The second ( bottom ) number is called the diastolic pressure. It is a measure of the pressure in your arteries as the heart relaxes. What are the causes? The exact cause of this condition is not known. There are some conditions that result in or are related to high blood pressure. What increases the risk? Some risk factors for high blood pressure are under your control. The following factors may make you more likely to develop this condition: ? Smoking. ? Having type 2 diabetes mellitus, high cholesterol, or both. ? Not getting enough exercise or physical activity. ? Being overweight. ? Having too much fat, sugar, calories, or salt (sodium) in your diet. ? Drinking too much alcohol. Some risk factors for high blood pressure may be difficult or impossible to change. Some of these factors include: ? Having chronic kidney disease. ? Having a family history of high blood pressure. ? Age. Risk increases with age. ? Race. You may be at higher risk if you are . ? Gender. Men are at higher risk than women before age 45. After age 65, women are at higher risk than men. ? Having obstructive sleep apnea. ? Stress. What are the signs or symptoms? High blood pressure may not cause symptoms. Very high blood pressure (hypertensive crisis) may cause: ? Headache. ? Anxiety. ? Shortness of breath. ? Nosebleed. ? Nausea and vomiting. ? Vision changes. ? Severe chest pain. ? Seizures. How is this diagnosed? This condition is diagnosed by measuring your blood pressure while you are seated, with your arm resting on a flat surface, your legs uncrossed, and your feet flat on the floor. The cuff of the blood pressure monitor will be placed directly against the skin of your upper arm at the level of your heart. It should be measured at least twice using the same arm. Certain conditions can cause a difference in blood pressure between your right and left arms. Certain factors can cause blood pressure readings to be lower or higher than normal for a short period of time: ? When your blood pressure is higher when you are in a health care provider's office than when you are at home, this is called white coat hypertension. Most people with this condition do not need medicines. ? When your blood pressure is higher at home than when you are in a health care provider's office, this is called masked hypertension. Most people with this condition may need medicines to control blood pressure. If you have a high blood pressure reading during one visit or you have normal blood pressure with other risk factors, you may be asked to: ? Return on a different day to have your blood pressure checked again. ? Monitor your blood pressure at home for 1 week or longer. If you are diagnosed with hypertension, you may have other blood or imaging tests to help your health care provider understand your overall risk for other conditions. How is this treated? This condition is treated by making healthy lifestyle changes, such as eating healthy foods, exercising more, and reducing your alcohol intake. Your health care provider may prescribe medicine if lifestyle changes are not enough to get your blood pressure under control, and if: ? Your systolic blood pressure is above 130. ? Your diastolic blood pressure is above 80. Your personal target blood pressure may vary depending on your medical conditions, your age, and other factors. Follow these instructions at home: Eating and drinking ? Eat a diet that is high in fiber and potassium, and low in sodium, added sugar, and fat. An example eating plan is called the DASH (Dietary Approaches to Stop Hypertension) diet. To eat this way: ? Eat plenty of fresh fruits and vegetables. Try to fill one half of your plate at each meal with fruits and vegetables. ? Eat whole grains, such as whole-wheat pasta, brown rice, or whole-grain bread. Fill about one fourth of your plate with whole grains. ? Eat or drink low-fat dairy products, such as skim milk or low-fat yogurt. ? Avoid fatty cuts of meat, processed or cured meats, and poultry with skin. Fill about one fourth of your plate with lean proteins, such as fish, chicken without skin, beans, eggs, or tofu. ? Avoi (more content not included)... Normal [facility] ED Patient Summaryon 022 ED Patient Summary [place] [id number] Patient Discharge Instructions Person Information Name: ZORAIDA BARRIOS Age: 86 Years Arrival Date: 02/24/2022 08:11:05 Discharge Diagnosis: 1:Accelerated hypertension Primary Care Physician: AMELIA FREY MD Provider Information Primary Provider: Demond Green M.D. Advanced Manager Of Loss Prevention Operations:None The exam and treatment you received in the Emergency Department were for an urgent problem and are not intended as complete care. It is important that you follow up with a doctor, nurse practitioner, or physician?s operations and intelligence assistant for ongoing care. If your symptoms become worse or you do not improve as expected and you are unable to reach your usual health care provider, you should return to the Emergency Department. We are available 24 hours a day. ZORAIDA BARRIOS has been given the following list of patient education materials, prescriptions and follow-up instructions: Follow-up Instructions: With: Address: When: AMELIA FREY [address] [place], [place] [id number] [facility] (1) In 3 days 02/27/2022 Comments: Increase Losartan to 100 mg a day. Continue Metoprolol 50 mg a day. Make sure to take your blood pressure twice a day and follow-up with Dr. Frey tomorrow at 1 PM at her office. Return to the emergency room if your headache recurs, chest pain, dizziness or any new symptoms. In the event that this physician does not participate in your insurance network, please consult with your insurance company to find a nearby participating provider. Patient Education Materials: Hypertension, Adult A MESSAGE TO ALL PATIENTS REGARDING OPIOIDS PRESCRIPTION OPIOIDS: WHAT YOU NEED TO KNOW Prescription opioids can be used to help relieve dridssku-fy-mjgcuc pain and are often prescribed following a surgery or injury, or for certain health conditions. These medications can be an important part of the treatment but also come with serious risks. It is important to work with your healthcare provider to make sure you are getting the safest, most effective care. WHAT ARE THE RISKS AND SIDE EFFECTS OF OPIOID USE? Prescription opioids carry serious risks of addiction and overdose, especially with prolonged use. An opioid overdose, often marked by slowed breathing, can cause sudden . The use of prescription opioids can have a number of side effects as well, even when taken as directed: ? Tolerance?meaning you might need to take more of the medication for the same pain relief ? Physical dependence?meaning you have symptoms of withdrawal when a medication is stopped ? Increased sensitivity to pain ? Constipation ? Nausea, vomiting, and dry mouth ? Sleepiness and dizziness ? Confusion ? Depression ? Low levels of testosterone that can result in lower sex drive, energy, and strength ? Itching and sweating RISKS ARE GREATER WITH: ? History of drug misuse, substance use disorder, or overdose ? Mental health conditions (such as depression or anxiety) ? Sleep apnea ? Older age (65 years and older) ? Avoid alcohol while taking prescription opioids. Also, unless specifically advised by your health care provider, medications to avoid include: ? Benzodiazepines (such as Xanax or Valium) ? Muscle relaxants (such as Soma or Flexeril) ? Hypnotics (such as Ambien or Lunesta) ? Other prescription opioids KNOW YOUR OPTIONS Talk to your health care provider about ways to manage your pain that don?t involve prescription opioids. Some of these options may actually work better and have fewer risks and side effects. Options may include: ? Pain relievers such as acetaminophen, ibuprofen, and naproxen ? Some medication that are also used for depression or seizures ? Physical therapy and exercise ? Cognitive behavioral therapy, a psychological, goal-directed approach, in which patients learn how to modify physical, behavioral, and emotional triggers of pain and stress. IF YOU ARE PRESCRIBED OPIOIDS FOR PAIN: ? Never take opioids in greater amounts or more often than prescribed. ? Follow up with your primary health care provider. o Work together to create a plan on how to manage your pain. o Talk about ways to help manage your pain that don?t involve prescription opioids. o Talk about any and all concerns and side effects. ? Help prevent misuse and abuse o Never sell or share prescription opioids. o Never use another person?s prescription opioids. ? Store prescription opioids in a secure place and out of reach of others (this may include visitors, children, friends, and family). ? Safely dispose of unused prescription opioids: Find your community drug take-back program or your pharmacy mail-back program, or flush them down the toilet, following guidance from the Food and Drug Administration (www.fda.gov/Drugs/R esourcesForYou). ? Visit (more content not included)... Normal [facility] HEMATOLOGYOrdered By: SYSTEM SYSTEM on 02-24-2022 Basophils/100 WBC (Bld) 4.4 % High 0.0 - 2.0 % [facility] [facility] Basophils/Leukocytes Auto (Bld) [Pure # fraction] 0.3 E9/L High 0.0 - 0.2 E9/L [facility] Eosinophils/100 WBC (Bld) 3.8 % Normal 0.0 - 8.0 % [facility] Eosinophils/Leukocytes Auto (Bld) [Pure # fraction] 0.3 E9/L Normal 0.0 - 0.5 E9/L [facility] Lymphocytes/100 WBC (Bld) 31.3 % Normal 14.0 - 50.0 % [facility] Lymphocytes/Leukocytes Auto (Bld) [Pure # fraction] 2.3 E9/L Normal 1.0 - 4.0 E9/L [facility] Monocytes/100 WBC (Bld) 12.8 % Normal 4.0 - 14.0 % [facility] Monocytes/Leukocytes Auto (Bld) [Pure # fraction] 0.9 E9/L Normal 0.2 - 1.0 E9/L [facility] Neutrophils/100 WBC (Bld) 47.7 % Normal 36.0 - 75.0 % [facility] Neutrophils/Leukocytes Auto (Bld) [Pure # fraction] 3.5 E9/L Normal 2.0 - 7.5 E9/L [facility] HEMATOLOGYOrdered By: Adrianna Vidales on 02-24-2022 Erythrocyte distribution width (RBC) [Ratio] 15.3 % High 10.9 - 14.2 % [facility] Hematocrit (Bld) [Volume fraction] 43.0 % Normal 34.0 - 46.0 % [facility] Hemoglobin (Bld) [Mass/Vol] 14.4 g/dL Normal 12.0 - 16.0 gm/dL [facility] MCH (RBC) [Entitic mass] 31.0 pg Normal 27.0 - 34.0 pg [facility] MCHC (RBC) [Mass/Vol] 33.6 g/dL Normal 31.4 - 36.0 gm/dL [facility] MCV (RBC) [Entitic vol] 92.2 fL Normal 80.0 - 100.0 fL [facility] Platelet mean volume (Bld) [Entitic vol] 9.2 fL Normal 6.4 - 10.8 fL [facility] Platelets (Bld) [#/Vol] 137.0 E9/L Low 150.0 - 500.0 E9/L [facility] RBC (Bld) [#/Vol] 4.7 E12/L Normal 4.3 - 5.9 E12/L [facility] WBC corrected for nucl RBC Auto (Bld) [#/Vol] 7.3 E9/L Normal 4.0 - 11.0 E9/L [facility] PT & PTTon 02-24-2022 INR Coag (PPP) [Relative time] 1.1 {INR} Invalid Interpretation Code [facility] Comment on above: Result Comment: INR results are specifically intended to assess patients stabilized on long-term Anticoagulation therapy suggested INR?s ?Less Intensive Anticoagulation? 2.0 ? 3.0 Conventional Range 3.0 ? 4.5 Performed By: #### 1 [id number] #### [facility] [address] [place] [address] PT Coag (PPP) [Time] 13.4 second(s) High 10.2-12.[address] [facility] Comment on above: Performed By: #### 1 [id number] #### [facility] [address] [place] [address] aPTT Coag (PPP) [Time] 25.4 second(s) Normal 25.1-36.[address] [facility] Comment on above: Result Comment: Hepa rin therapeutic range (represented by Anti-Factor Xa activity of 0.2 - 0.4 U/mL) corresponds to PTT of 56.6 - 109.0 sec. Performed By: #### 1 [id number] #### [facility] [address] [place] [address] Troponin 0 Hr.on 02-24-2022 Troponin I.cardiac [Mass/Vol] 8.10 pg/mL Low 10.10-27.[address] [facility] Comment on above: Result Comment: The 95% CI (Confidence Interval) PPV (Positive Predictive Value) for myocardial infarction in females is 38 pg/mL, in males 51 pg/mL. The results should be used in conjunction with clinical conditions of myocardial infarction. (Access High Sensitivity Troponin I Instructions For Use, Gwendolyn Wilmington, May 2018) Performed By: #### 1 [id number], [id number] #### [facility] [address] [place] [address] XR Chest Single Viewon 02-24 XR Chest Single View Exam Date/Time: 02/24/2022 08:44 EDT Reason for Exam: Chest pain Report IMPRESSION: ILL-DEFINED INCREASED DENSITY PROJECTED ON THE LEFT UPPER LOBE LATERALLY OF UNDETERMINED ETIOLOGY, BUT A SMALL NODULE IS NOT EXCLUDED. CLINICAL HISTORY: Chest pain. COMMENT: AP portable. The heart is normal in size. The mediastinum is unremarkable. There is a small dense calcification overlying the left lung base, but whether this is in the lung or in the left breast is not determined on this study. There is a small (approximately 6 mm) ill-defined increased density projecting on the left upper lobe laterally, of undetermined etiology, but a small nodule is not excluded. No consolidated airspace opacification nor pleural effusion is evident. FINAL REPORT Dictated: 02/24/2022 11:59 am Trevon Tyler M.D. Signed (Electronic Signature): 02/24/2022 11:59 am Signed by: Trevon Tyler M.D. Transcribed by: KHANH Technologist: RADHA Diggs Read 02/24/2022 11:58 am EDT, Trevon Tyler M.D., DISAGREE Normal [facility] Vital Signs Date Time Vital Sign Value Performing Clinician Facility 05-07-2024 13:44-0400 Body height 157.48 cm [facility] 05-07-2024 13:44-0400 Body mass index (BMI) [Ratio] 23.8 kg/m2 [facility] 05-07-2024 13:44-0400 Body weight 58.96 kg [facility] 05-07-2024 13:44-0400 Diastolic blood pressure 69 mm[Hg] [facility] 05-07-2024 13:44-0400 Heart rate 61 /min [facility] 05-07-2024 13:44-0400 Systolic blood pressure 189 mm[Hg] [facility] 01-08-2024 11:43-0400 Body height 157.48 cm [facility] 01-08-2024 11:43-0400 Body mass index (BMI) [Ratio] 22.8 kg/m2 [facility] 01-08-2024 11:43-0400 Body weight 56.84 kg [facility] 01-08-2024 11:43-0400 Diastolic blood pressure 72 mm[Hg] [facility] 01-08-2024 11:43-0400 Heart rate 61 /min [facility] 01-08-2024 11:43-0400 Systolic blood pressure 179 mm[Hg] [facility] 06-08-2023 14:30-0400 Body height 157.48 cm Amelia Frey Other [employer] Other 06-08-2023 14:30-0400 Body mass index (BMI) [Ratio] 23.13 kg/m2 Amelia Frey Other [employer] Other 06-08-2023 14:30-0400 Body weight 57.38 kg Amelia Frey Other [employer] Other 06-08-2023 14:30-0400 Diastolic blood pressure 77 mm[Hg] Amelia Frey Other [employer] Other 06-08-2023 14:30-0400 Respiratory rate 16 /min Amelia Frey Other [employer] Other 06-08-2023 14:30-0400 Systolic blood pressure 187 mm[Hg] Amelia Frey Other [employer] Other 12-20-2022 15:20-0400 Body height 157.48 cm [employer] [facility] Other [employer] Other 12-20-2022 15:20-0400 Body mass index (BMI) [Ratio] 23.08 kg/m2 [employer] Other [facility] [employer] Other 12-20-2022 15:20-0400 Body temperature 97 [degF] [employer] Other [facility] Other 12-20-2022 15:20-0400 Body weight 57.24 kg Rox Watson Other [employer] Other 12-20-2022 15:20-0400 Diastolic blood pressure 85 mm[Hg] Rox Watson Other [employer] Other 12-20-2022 15:20-0400 Respiratory rate 16 /min Rox Watson Other [facility] [employer] Other 12-20-2022 15:20-0400 SaO2% (BldA) [Mass fraction] 100 % Rox Watson Other [facility] Other 12-20-2022 15:20-0400 Systolic blood pressure 170 mm[Hg] Rox Watson Other [facility] [employer] Other 02-24-2022 10:12-0400 Diastolic blood pressure 80 mm[Hg] [facility] 02-24-2022 10:12-0400 Heart rate 68 /min [facility] 02-24-2022 10:12-0400 Respiratory rate 15 /min [facility] 02-24-2022 10:12-0400 SaO2% (BldA) [Mass fraction] 98 % [facility] 02-24-2022 10:12-0400 Systolic blood pressure 190 mm[Hg] [facility] 02-24-2022 09:24-0400 Diastolic blood pressure 88 mm[Hg] [facility] 02-24-2022 09:24-0400 Heart rate 66 /min [facility] 02-24-2022 09:24-0400 Respiratory rate 16 /min [facility] 02-24-2022 09:24-0400 SaO2% (BldA) [Mass fraction] 99 % [facility] 02-24-2022 09:24-0400 Systolic blood pressure 190 mm[Hg] [facility] 02-24-2022 08:50-0400 Diastolic blood pressure 100 mm[Hg] [facility] 02-24-2022 08:50-0400 Systolic blood pressure 220 mm[Hg] [facility] 02-24-2022 08:14-0400 Body temperature 98.24 [degF] [facility] 02-24-2022 08:14-0400 Heart rate 74 /min [facility] 02-24-2022 08:14-0400 Respiratory rate 18 /min [facility] 02-24-2022 08:14-0400 SaO2% (BldA) [Mass fraction] 99 % [facility] Encounters Encounter Date Encounter Type Care Provider Facility Start: 05-07-2024 End: 05-07-2024 ambulatory [facility] Work Phone: Start: 05-07-2024 End: 05-07-2024 Patient encounter procedure [facility] Work Phone: Start: 04-25-2024 Non-patient / Non-visit [facility] Work Phone: Start: 03-28-2024 End: 03-28-2024 ambulatory AALIYAH POOLE [facility] Start: 01-08-2024 End: 01-08-2024 ambulatory HERMELINDA HUGO [facility] Start: 01-08-2024 End: 01-08-2024 ambulatory [facility] Work Phone: Start: 01-08-2024 End: 01-08-2024 Patient encounter procedure [facility] Work Phone: Start: 12-28-2023 Non-patient / Non-visit [facility] Work Phone: Start: 10-25-2023 End: 10-25-2023 ambulatory [facility] Start: 10-25-2023 End: 10-25-2023 Encounter for general adult medical examination without abnormal findings AALIYAH [facility] Start: 06-08-2023 End: 06-08-2023 ambulatory Amelia Tk Other [employer] Other Start: 06-08-2023 Office outpatient vi sit 15 minutes Amelia Frey [facility] Start: 06-07-2023 End: 06-07-2023 ambulatory [facility] Start: 05-25-2023 End: 05-25-2023 ambulatory Amelia Tk Other [employer] Other Start: 05-25-2023 Telephone encounter Amelia Tk [facility] Start: 04-25-2023 End: 04-25-2023 ambulatory Amelia Tk Other [facility] [employer] Other Start: 04-25-2023 Telephone encounter Amelia Frey [facility] Start: 03-23-2023 End: 03-23-2023 ambulatory Amelia Tk Other [facility] [employer] Other Start: 03-23-2023 Telephone encounter Amelia Frey [facility] Start: 02-20-2023 End: 02-20-2023 ambulatory Amelia Tk Other [facility] [employer] Other Start: 02-20-2023 Telephone encounter Amelia Frey [facility] Start: 01-17-2023 End: 01-17-2023 ambulatory Amelia Frey Other [facility] [employer] Other Start: 01-17-2023 Telephone encounter Amelia Frey [facility] Start: 12-20-2022 End: 12-20-2022 ambulatory Rox Watson Other [employer] Other Start: 12-20-2022 [facility] visit new patient Rox Watson [facility] Start: 12-19-2022 End: 12-19-2022 ambulatory Amelia Frey Other [employer] Other Start: 12-19-2022 Telephone encounter Amelia Frey [facility] Start: 12-10-2022 End: 12-11-2022 ambulatory AALIYAH POOLE Facility:[facility] Start: 11-15-2022 End: 11-15-[address] GEORGIE WELLER Facility:[facility] Start: 10-09-2022 End: 10-09-[address] RAMIRO WILEY . Facility:[facility] Start: 09-30-2022 End: 10-01-2022 ambulatory RADHA OLEARY Facility:[facility] Start: 09-26-2022 End: 09-26-[address] HARJINDER RAMIREZ Facility:[facility] Start: 09-21-2022 End: 09-22-[address] AMELIA FREY Facility:[facility] Start: 09-18-2022 End: 09-18-[address] GEORGIE WELLER Facility:[facility] Start: 09-11-2022 End: 09-11-[address] RAMIRO WILEY . Facility:[facility] Start: 09-03-2022 End: 09-04-2022 ambulatory RADHA OLEARY Facility:[facility] Start: 09-03-2022 End: 09-03-[address] RAMIRO WILEY . Facility:[facility] Start: 08-30-2022 End: 08-30-[address] AMELIA FREY Facility:[facility] Start: 08-26-2022 End: 08-26-[address] AMELIA FREY Facility:[facility] Start: 08-24-2022 End: 08-24-[address] AMELIA FREY Facility:[facility] Start: 08-17-2022 End: 08-17-[address] AMELIA FREY Facility:[facility] Start: 07-02-2022 End: 07-02-[address] AMELIA FREY Facility:[facility] Start: 04-15-2022 End: 04-16-[address] AMELIA FREY Facility:[facility] Start: 04-08-2022 ambulatory AALIYAH POOLE Facility:[facility] Start: 04-06-2022 End: 04-07-2022 ambulatory HERMELINDA HUGO Facility:[facility] Start: 03-17-2022 End: 03-17-[address] AMELIA FREY Facility:[facility] Start: 02-24-2022 End: 02-24-2022 Emergency department patient visit Addominic Collins Norma [facility] Procedures Date Procedure Procedure Detail Performing Clinician Start: 01-08-2024 Follow-up visit Follow-up HERMELINDA ACUÑAGALINA Plan of Treatment Date Care Activity Detail Author [facility] Payers Date Payer Category Payer Self-pay 1959 Unknown [id number] 1935 Unknown [id number] 2.16.84 [id number] 1935 Unknown [id number] 2.16.84 [id number] 1935 Unknown [id number] 2.16.84 0.1.748384.3.579.2.593 1935 Unknown [id number] 2.16.84 0.1.993506.3.579.2.593 1935 Unknown [id number] 2.16.84 0.1.046720.3.579.2.593 1935 Unknown [id number] 2.16.84 0.1.043057.3.579.2.593 1935 Unknown [id number] 2.16.84 0.1.415113.3.579.2.593 1935 Unknown [id number] 2.16.84 0.1.651937.3.579.2.593 1935 Unknown [id number] 2.16.84 0.1.560032.3.579.2.593 1935 Unknown [id number] 2.16.84 0.1.077976.3.579.2.593 1935 Unknown [id number] 2.16.84 0.1.408718.3.579.2.593 1935 Unknown [id number] 2.16.84 0.1.783484.3.579.2.593 1935 Unknown [id number] 2.16.84 0.1.765553.3.579.2.593 1935 Unknown [id number] 2.16.84 0.1.050336.3.579.2.593 1935 Unknown [id number] 2.16.84 0.1.653102.3.579.2.593 1935 Unknown [id number] 2.16.84 0.1.027333.3.579.2.593 1935 Unknown [id number] 2.16.84 0.1.108585.3.579.2.593 1935 Unknown [id number] 2.16.84 0.1.972662.3.579.2.593 1935 Unknown [id number] 2.16.84 0.1.696145.3.579.2.593 Medicare [id number] 2. [id number] Unknown [id number] Social History Date Type Detail Facility Tobacco smoking status Unknown i f ever smoked [facility] Sex Assigned At Female [facility] Start: 1935 Sex Assigned At Female F [facility] Clinical Notes 02-24-2022 to 03-28-2024 Note Date & Type Note Facility 03-28-2024 Note Stable Continue aldactone, fluid restriction and low sodium diet Continue regular exercise and activity [facility] 03-28-2024 Note Well controlled with aldactone currently no edema [facility] 03-28-2024 Note Hypertension is unch anged. Dietary sodium restriction. Continue current medications. Blood pressure will be reassessed in 3 months. [facility] 03-28-2024 Note Patient here for 2 m o follow up hypertension and diastolic dysfunction. She had routine labs in January 2024. She denies chest pain, SOB, palpitations, and syncope. Sometimes gets lightheaded upon standing up. Review of Systems Neurological: Positive for excessive daytime sleepiness and light-headedness. All other systems reviewed and are negative. [facility] 03-28-2024 Note [facility] CARDIOLOGY PROGR ESS NOTE HPI: Zoraida Barrios is a 88 y.o. female here for routine F/U for HTN HPI Patient here for 2 mo follow up hypertension and diastolic dysfunction. She had routine labs in January 2024. She denies chest pain, SOB, palpitations, and syncope. Sometimes gets lightheaded upon standing up. Denied headaches, vision changes, one sided weakness, speech difficulties or stroke like symptoms. Admits that she does forget to take evening dose of coreg occasionally, and we reviewed her med regime: - she takes Coreg/clonidine/hydralazine and losartan in morning with breakfast, - about 3 hours later she takes aldactone (mid morning), - Early afternoon/lunch she takes hydralazine, - with evening meal she takes coreg (this is what she typically forgets) - and then at bedtime she takes hydralazine and clonidine. Review of Systems Neurological: Positive for excessive daytime sleepiness and light-headedness. All other systems reviewed and are negative. Visit Vitals BP 148/78 (BP Location: Left arm, Patient Position: Sitting) Pulse 60 Ht 1.575 m (5' 2 ) Wt 57.6 kg (127 lb) SpO2 98% BMI 23.23 kg/m??? Smoking Status Every Day BSA 1.59 m??? Allergies Allergen Reactions Sulfa (Sulfonamide Antibiotics) Medications: Current Outpatient Medications on File Prior to Visit Medication Sig Dispense Refill carvedilol (Coreg) 25 mg tablet Take 1 tablet (25 mg) by mouth with breakfast and with evening meal. 180 tablet 3 cloNIDine (Catapres) 0.2 mg tablet Take 1 tablet (0.2 mg) by mouth in the morning and at bedtime. 180 tablet 3 hydrALAZINE (Apresoline) 25 mg tablet Take 1 tablet (25 mg) by mouth three times daily. In addition to the 50mg tablets 3 times a day. 270 tablet 3 hydrALAZINE (Apresoline) 50 mg tablet Take 1 tablet (50 mg) by mouth three times daily. In addition to hydralazine 25mg tablets 3 times a day. 270 tablet 3 losartan (Cozaar) 50 mg tablet Take 1 tablet (50 mg) by mouth in the morning and at bedtime. 180 tablet 3 spironolactone (Aldactone) 25 mg tablet Take 1 tablet (25 mg) by mouth in the morning. 90 tablet 3 [DISCONTINUED] losartan (Cozaar) 100 mg tablet Take 1 tablet (100 mg) by mouth once daily as directed. 90 tablet 3 No current facility-administered medications on file prior to visit. Physical Exam: Constitutional: Appearance: Normal appearance. Without apparent distress HENT: Head: Normocephalic and atraumatic. Nose: Nose normal. Mouth/Throat: Mouth: Mucous membranes are moist. Eyes: Extraocular Movements: Extraocular movements intact. Conjunctiva/sclera: Conjunctivae normal. Neck: Vascular: No JVD. Cardiovascular: Rate and Rhythm: Normal rate and regular rhythm. Pulses: Dorsalis pedis pulses are 3 on the right side and 3on the left side. Posterior tibial pulses are 3 on the right side and 3 on the left side. Heart sounds: Normal heart sounds, S1 normal and S2 normal. Pulmonary: Effort: Pulmonary effort is normal. Breath sounds: Normal breath sounds. Abdominal: General: Bowel sounds are normal. Palpations: Abdomen is soft. Musculoskeletal: General: Normal range of motion. Cervical back: Normal range of motion. Right lower leg: No edema. Left lower leg: No edema. Skin: General: Skin is warm and dry. Capillary Refill: Capillary refill takes less than 2 seconds. Neurological: General: No focal deficit present. Mental Status: She is alert and oriented to person, place, and time. Psychiatric: Mood and Affect: Mood normal. Behavior: Behavior normal. Thought Content: Thought content normal. Judgment: Judgment normal. Labs: 01/12/24 NA 139, K+ 3.8- normal, BUN 21, Cr 1.22- elevated but stable for her A1C 5.1- well controlled Renal function stable 12/10/22 BUN 28, CR 1.26 elevated K+ 3.4 low GFR 40 Last lab values have been reviewed CV Testing Echo 04/28/2020 Reviewed LV systolic function normal. Mild diastolic dysfunction. RV normal size and systolic function. Mild tricuspid valve regurg. Mild mitral valve regurg. Assessment/Plan: Hypertensive disorder Hypertension is unchanged. Dietary sodium restriction. Continue current medications. Blood pressure will be reassessed in 3 months. Edema, lower extremity Well controlled with aldactone currently no edema Diastolic dysfunction Stable Continue aldactone, fluid restriction and low sodium diet Continue regular exercise and activity RTC 3-6 months or earlier if needed Provider had extended d/w pt that she can take Coreg twice daily about 12 hours apart - with her evening/bedtime meds, she voiced understanding [facility] 01-08-2024 Note [facility] CARDIOLOGY PROGR ESS NOTE HPI: Zoraida Barrios is a 88 y.o. female here for Follow-up Patient here for follow up regarding hypertension. Bp was previously difficult to control. Patient states that she is doing well. Patient adamantly denies any cardiac complaints or concerns. Patient denies any chest pain or shortness of breath. Patient denies any lower extremity edema, orthopnea, or proximal nocturnal dyspnea. No near-syncope or syncope. No dizziness or lightheadedness. She was evaluated in the ER for elevated Bp she states. She has a Bp log in clinic today, and most of her Bps are within normal range. She has rare elevated readings, but overall well controlled. Review of Systems All other systems reviewed and are negative. Visit Vitals BP 140/72 (BP Location: Left arm, Patient Position: Sitting, BP Cuff Size: Adult) Pulse 59 Resp 12 Ht 1.575 m (5' 2 ) Wt 56.7 kg (125 lb) SpO2 99% BMI 22.86 kg/m??? Smoking Status Every Day BSA 1.58 m??? Allergies Allergen Reactions Sulfa (Sulfonamide Antibiotics) Medications: Current Outpatient Medications on File Prior to Visit Medication Sig Dispense Refill carvedilol (Coreg) 25 mg tablet Take 1 tablet (25 mg) by mouth with breakfast and with evening meal. 180 tablet 3 cloNIDine (Catapres) 0.2 mg tablet Take 1 tablet (0.2 mg) by mouth in the morning and at bedtime. 180 tablet 3 losartan (Cozaar) 100 mg tablet Take 1 tablet (100 mg) by mouth once daily as directed. 90 tablet 3 No current facility-administered medications on file prior to visit. Physical Exam: Constitutional: Appearance: Normal appearance. Without apparent distress HENT: Head: Normocephalic and atraumatic. Nose: Nose normal. Mouth/Throat: Mouth: Mucous membranes are moist. Eyes: Extraocular Movements: Extraocular movements intact. Conjunctiva/sclera: Conjunctivae normal. Neck: Vascular: No JVD. Cardiovascular: Rate and Rhythm: Normal rate and regular rhythm. Pulses: Dorsalis pedis pulses are 3 on the right side and 3on the left side. Posterior tibial pulses are 3 on the right side and 3 on the left side. Heart sounds: Normal heart sounds, S1 normal and S2 normal. Pulmonary: Effort: Pulmonary effort is normal. Breath sounds: Normal breath sounds. Abdominal: General: Bowel sounds are normal. Palpations: Abdomen is soft. Musculoskeletal: General: Normal range of motion. Cervical back: Normal range of motion. Right lower leg: No edema. Left lower leg: No edema. Skin: General: Skin is warm and dry. Capillary Refill: Capillary refill takes less than 2 seconds. Neurological: General: No focal deficit present. Mental Status: She is alert and oriented to person, place, and time. Psychiatric: Mood and Affect: Mood normal. Behavior: Behavior normal. Thought Content: Thought content normal. Judgment: Judgment normal. Labs:08/26/22 CBC, renal and liver function all normal K+ 4 Last lab values have been reviewed CV Testing: No echocardiogram results found for the past 12 months Hypertensive disorder Blood pressure is much better controlled at this time Mean is overall within acceptable range Continue current medication regimen Continue close monitoring of blood pressure Diastolic dysfunction Stable, euvolemic today -Plan of care discussed with patient. All questions were answered. Patient voices understanding and is agreeable with current plan. -Patient was educated on red flag symptoms. Strict return precautions were provided. Patient verbalizes understanding -Follow-up in cardiology clinic Hermelinda Hugo MD [facility] 2023 Note Currently stable [facility] 2023 Note Currently resolved a nd she has stopped lasix and potassium. D/W pt that if edema reoccurs she can take lasix with potassium as needed [facility] 2023 Note Hypertension is much better controlled with occasional hypotension that she knows when b/p is low and I relax and hydrate until I feel better. Continue hydralazine, coreg, clonidine, losartan and aldactone [facility] 2023 Note Currently stable [facility] 10-25-2023 Note [facility] CARDIOLOGY PROGR ESS NOTE HPI: Zroaida Barrios is a 88 y.o. female here for Follow-up HPI 87 yo female presents today for routine f/U. Overall she states she is doing well. Still can feel when b/p is really low and really high- states I just deal with it. Admits that her b/p is much better than it ever had been and that she has not been to Emergency room since our last visit. States her trip to [facility] went very well and has a trip upcoming to [facility] for skiing. Review of Systems Constitutional: Negative. Respiratory: Negative. Cardiovascular: Negative. Neurological: Positive for light-headedness. Negative for dizziness and syncope. All other systems reviewed and are negative. Visit Vitals BP 150/90 (BP Location: Left arm, Patient Position: Sitting, BP Cuff Size: Adult) Pulse 62 Resp 12 Ht 1.575 m (5' 2 ) Wt 56.9 kg (125 lb 8 oz) SpO2 100% BMI 22.95 kg/m??? Smoking Status Every Day BSA 1.58 m??? Allergies Allergen Reactions Sulfa (Sulfonamide Antibiotics) Medications: Current Outpatient Medications on File Prior to Visit Medication Sig Dispense Refill carvedilol (Coreg) 25 mg tablet Take 1 tablet (25 mg) by mouth with breakfast and with evening meal. 180 tablet 3 cloNIDine (Catapres) 0.2 mg tablet Take 1 tablet (0.2 mg) by mouth in the morning and at bedtime. 180 tablet 3 hydrALAZINE (Apresoline) 50 mg tablet Take 1 tablet (50 mg) by mouth in the morning, at noon, and at bedtime. In addition to hydralazine 25mg tablets 3 times a day. (Patient taking differently: Take 75 mg by mouth in the morning, at noon, and at bedtime. In addition to hydralazine 25mg tablets 3 times a day.) 90 tablet 11 losartan (Cozaar) 100 mg tablet Take 1 tablet (100 mg) by mouth once daily as directed. 90 tablet 3 spironolactone (Aldactone) 25 mg tablet Take 1 tablet (25 mg) by mouth in the morning. 90 tablet 3 [DISCONTINUED] hydrALAZINE (Apresoline) 25 mg tablet Take 1 tablet (25 mg) by mouth in the morning, afternoon, and at bedtime. TAKE 1 TABLET BY MOUTH IN THE MORNING AT NOON AND AT BEDTIME IN ADDITION TO 50MG TABS 270 tablet 3 [DISCONTINUED] furosemide (Lasix) 20 mg tablet Take 1 tablet (20 mg) by mouth in the morning. Take 1 tablet (20mg) by mouth in the morning as needed for leg swelling- take with potassium chloride. May take for 2-3 days until swelling is resolved and then stop 30 tablet 11 [DISCONTINUED] hydrALAZINE (Apresoline) 50 mg tablet Take 2 tablets (100 mg) by mouth in the morning, at noon, and at bedtime. 540 tablet 3 [DISCONTINUED] LORazepam (Ativan) 0.5 mg tablet Take 0.5 mg by mouth at bedtime. [DISCONTINUED] potassium chloride CR (Klor-Con M10) 10 mEq ER tablet Take 1 tablet (10 mEq) by mouth in the morning. Take with Lasix (furosesmide)in the morning as needed for leg swelling. May take for 2-3 days until swelling is resolved and then stop Do not crush or chew. 30 tablet 11 No current facility-administered medications on file prior to visit. Physical Exam: Constitutional: Appearance: Normal appearance. Without apparent distress HENT: Head: Normocephalic and atraumatic. Nose: Nose normal. Mouth/Throat: Mouth: Mucous membranes are moist. Eyes: Extraocular Movements: Extraocular movements intact. Conjunctiva/sclera: Conjunctivae normal. Neck: Vascular: No JVD. Cardiovascular: Rate and Rhythm: Normal rate and regular rhythm. Pulses: Dorsalis pedis pulses are 3 on the right side and 3on the left side. Posterior tibial pulses are 3 on the right side and 3 on the left side. Heart sounds: Normal heart sounds, S1 normal and S2 normal. Pulmonary: Effort: Pulmonary effort is normal. Breath sounds: Normal breath sounds. Abdominal: General: Bowel sounds are normal. Palpations: Abdomen is soft. Musculoskeletal: General: Normal range of motion. Cervical back: Normal range of motion. Right lower leg: No edema. Left lower leg: No edema. Skin: General: Skin is warm and dry. Capillary Refill: Capillary refill takes less than 2 seconds. Neurological: General: No focal deficit present. Mental Status: She is alert and oriented to person, place, and time. Psychiatric: Mood and Affect: Mood normal. Behavior: Behavior normal. Thought Content: Thought content normal. Judgment: Judgment normal. Labs: Renal function stable 12/10/22 BUN 28, CR 1.26 elevated K+ 3.4 low GFR 40 Last lab values have been reviewed CV Testing Echo 04/28/2020 Reviewed LV systolic function normal. Mild diastolic dysfunction. RV normal size and systolic function. Mild tricuspid valve regurg. Mild mitral valve regurg. Assessment/Plan: Hypotension due to drugs Currently stable Hypertensive disorder Hypertension is much better controlled with occasional hypotension that she knows when b/p is low and I relax and hydrate until I feel better. Continue hydralazine, coreg, clonidine, losartan and aldactone Edema, lower extr (more content not included)... [facility] 06-08-2023 Evaluation note Encounter Date Diagnosis Assessment Notes May, Other insomnia (ICD-10 - G47.09) Pt states the ativan does help her insomnia and bp. Denies over-sedation symptoms. May, Resistant hypertension (ICD-10 - I10) Established w [facility] Cardiology. Recommend taking meds daily and keeping record and discussing bps w her provider there. [facility] Other 08-30-2023 NotePatient is currently euvolemic without exacerbation [facility] NoteHypertension is Controlled and blood pressure in office is well controlled currently continue all medicationsUnCity Hospital08-30-2023 NoteCurrently stable without any syncopal episodesUnCity Hospital08-30-2023 NotePatient here for 3 mo follow up hypertension. She is not taking lasix and potassium because she has had no LE edema. Denies chest pain and SOB. She is only getting a little lightheaded after taking medications. Review of Systems Neurological: Positive for light-headedness. All other systems reviewed and are negative.[facility] 06-07-2023 NoteUTP CARDIOLOGY PROGRESS NOTE HPI: Zoraida Barrios is a 87 y.o. female here for routine F/U Patient here for 3 mo follow up hypertension. She is not taking lasix and potassium because she has had no LE edema. Denies chest pain and SOB. She is only getting a little lightheaded after taking medications. After review of her blood pressure log overall her blood pressure is fairly well controlled she does have some outliers especially first thing in the morning before her a.m. meds her blood pressure can be high 180s to 190s over 80s to 90s and then after her morning meds her blood pressure does come down under 130/80. She admits she is symptomatic when her blood pressure is high or too low and occasionally she is adjusting how she is taking her medications according to what her blood pressure is and how she feels. End of this week she is going on a road trip with her and with a truck and camper to [facility]. She is quite stressed and anxious over this trip. Review of Systems Neurological: Positive for light-headedness. All other systems reviewed and are negative Visit Vitals BP 137/71 (BP Location: Left arm, Patient Position: Sitting) Pulse 57 Ht 1.575 m (5' 2 ) Wt 57.2 kg (126 lb) SpO2 97% BMI 23.05 kg/m??? Smoking Status Every Day BSA 1.58 m??? Allergies Allergen Reactions Sulfa (Sulfonamide Antibiotics) Medications: Current Outpatient Medications on File Prior to Visit Medication Sig Dispense Refill carvedilol (Coreg) 25 mg tablet Take 1 tablet (25 mg) by mouth with breakfast and with evening meal. 180 tablet 3 cloNIDine (Catapres) 0.2 mg tablet Take 1 tablet (0.2 mg) by mouth in the morning and at bedtime. 180 tablet 3 hydrALAZINE (Apresoline) 50 mg tablet Take 1 tablet (50 mg) by mouth in the morning, at noon, and at bedtime. In addition to hydralazine 25mg tablets 3 times a day. (Patient taking differently: Take 75 mg by mouth in the morning, at noon, and at bedtime. In addition to hydralazine 25mg tablets 3 times a day.) 90 tablet 11 LORazepam (Ativan) 0.5 mg tablet Take 0.5 mg by mouth at bedtime. losartan (Cozaar) 100 mg tablet Take 1 tablet (100 mg) by mouth once daily as directed. 90 tablet 3 spironolactone (Aldactone) 25 mg tablet Take 1 tablet (25 mg) by mouth in the morning. 90 tablet 3 furosemide (Lasix) 20 mg tablet Take 1 tablet (20 mg) by mouth in the morning. Take 1 tablet (20mg) by mouth in the morning as needed for leg swelling- take with potassium chloride. May take for 2-3 days until swelling is resolved and then stop 30 tablet 11 hydrALAZINE (Apresoline) 25 mg tablet Take 1 tablet (25 mg) by mouth in the morning, afternoon, and at bedtime. TAKE 1 TABLET BY MOUTH IN THE MORNING AT NOON AND AT BEDTIME IN ADDITION TO 50MG TABS 270 tablet 3 hydrALAZINE (Apresoline) 50 mg tablet Take 2 tablets (100 mg) by mouth in the morning, at noon, and at bedtime. 540 tablet 3 potassium chloride CR (Klor-Con M10) 10 mEq ER tablet Take 1 tablet (10 mEq) by mouth in the morning. Take with Lasix (furosesmide)in the morning as needed for leg swelling. May take for 2-3 days until swelling is resolved and then stop Do not crush or chew. 30 tablet 11 No current facility-administered medications on file prior to visit. Physical Exam: Constitutional: Appearance: Normal appearance. Without apparent distress HENT: Head: Normocephalic and atraumatic. Nose: Nose normal. Mouth/Throat: Mouth: Mucous membranes are moist. Eyes: Extraocular Movements: Extraocular movements intact. Conjunctiva/sclera: Conjunctivae normal. Neck: Vascular: No JVD. Cardiovascular: Rate and Rhythm: Normal rate and regular rhythm. Pulses: Dorsalis pedis pulses are 3 on the right side and 3on the left side. Posterior tibial pulses are 3 on the right side and 3 on the left side. Heart sounds: Normal heart sounds, S1 normal and S2 normal. Pulmonary: Effort: Pulmonary effort is normal. Breath sounds: Normal breath sounds. Abdominal: General: Bowel sounds are normal. Palpations: Abdomen is soft. Musculoskeletal: General: Normal range of motion. Cervical back: Normal range of motion. Right lower leg: No edema. Left lower leg: No edema. Skin: General: Skin is warm and dry. Capillary Refill: Capillary refill takes less than 2 seconds. Neurological: General: No focal deficit present. Mental Status: She is alert and oriented to person, place, and time. Psychiatric: Mood and Affect: Mood normal. Behavior: Behavior normal. Thought Content: Thought content normal. Judgment: Judgment normal. Labs: Renal function stable 12/10/22 BUN 28, CR 1.26 elevated K+ 3.4 low GFR 40 Last lab values have been reviewed CV Testing Echo 04/28/2020 Reviewed LV systolic function normal. Mild diastolic dysfunction. RV normal size and systolic function. Mild tricuspid valve regurg. Mild mitral valve regurg. No echocardiogram results found for the past 12 mon (more content not included)...[facility]03-14-2023 Evaluation note* Encounter Date Diagnosis Assessment Notes Treatment Notes Treatment Clinical Notes Dec, Hypertensive nephropathy (ICD-10 - I12.9) Patient CKD is likely from hypertensive nephropathy. Patient probably has been having uncontrolled hypertension for many years. We will target blood pressure between 130-140 to preserve kidney function. Dec, Chronic kidney disease, stage 3b (ICD-10 - N18.32) Likely from hypertensive nephropathy. Renal ultrasound shows small symmetric bilateral kidney sizes. Serum creatinine around 1.2 to 1.3 mg deciliter. I will check UA along with protein to creatinine ratio. I will check renal ultrasound. Avoid NSAIDs. Follow-up with the patient 3-4 months Dec, Resistant hypertension (ICD-10 - I10) Renal artery Doppler revealed increased velocity in the left side. Blood work showed hypokalemia. Patient might have hyperaldosteronism from renal artery stenosis. I will do 24-hour blood pressure monitor. I will continue same blood pressure medications. I will repeat renal arteries Doppler. I will refer the patient to vascular surgeon if 24-hour blood pressure monitor reveals significantly better blood pressure [facility] Other 05-19-2022 Evaluation + Plan noteExtracted from: Title:ED Note Author:Norma Palacios, Demond Estes te:02/24/22 1. Accelerated hypertension (I10: Essential (primary) hypertension) Orders: hydrALAZINE, 10 mg = 0.5 mL, Injection, IV Push, Once, Stop date 02/24/22 8:26:00 EDT, STAT, Start date 02/24/22 8:26:00 EDT, 02/24/22 8:26:00 EDT Automated Diff Basic Metabolic Panel CBC w/ Auto Diff CT Head or Brain w/o Contrast ED Cardiac Monitoring Extra SST Tube Oxygen Saturation Oxygen Therapy PT & PTT Saline Lock Insert Troponin 0 Hr. Troponin 3 Hr. Troponin 6 Hr. Troponin 9 Hr. XR Chest Single View [facility]05-19-2022 Hospital Discharge instructions Patient Education 02/24/2022 10:32:06 Hypertension, Adult Hypertension, Adult High blood pressure (hypertension) is when the force of blood pumping through the arteries is too strong. The arteries are the blood vessels that carry blood from the heart throughout the body. Hypertension forces the heart to work harder to pump blood and may cause arteries to become narrow or stiff. Untreated or uncontrolled hypertension can cause a heart attack, heart failure, a stroke, kidneydisease, and other problems. A blood pressure reading consists of a higher number over a lower number. Ideally, your blood pressure should be below 120/80. The first ( top ) number is called the systolic pressure. It is a measure of the pressure in your arteries as your heart beats. The second ( bottom ) number is called the diastolic pressure. It is a measure of the pressure in your arteries as the heart relaxes. What are the causes? The exact cause of this condition is not known. There are some conditions that result in or are related to high blood pressure. What increases the risk? Some risk factors for high blood pressure are under your control. The following factors may make you more likely to develop this condition: Smoking. Having type 2 diabetes mellitus, high cholesterol, or both. Not getting enough exercise or physical activity. Being overweight. Having too much fat, sugar, calories, or salt (sodium) in your diet. Drinking too much alcohol. Some risk factors for high blood pressure may be difficult or impossible to change. Some of these factors include: Having chronic kidney disease. Having a family history of high blood pressure. Age. Risk increases with age. Race. You may be at higher risk if you are . Gender. Men are at higher risk than women before age 45. After age 65, women are at higher risk than men. Having obstructive sleep apnea. Stress. What are the signs or symptoms? High blood pressure may not cause symptoms. Very high blood pressure (hypertensive crisis) may cause: Headache. Anxiety. Shortness of breath. Nosebleed. Nausea and vomiting. Vision changes. Severe chest pain. Seizures. How is this diagnosed? This condition is diagnosed by measuring your blood pressure while you are seated, with your arm resting on a flat surface, your legs uncrossed, and your feet flat on the floor. The cuff of the bloodpressure monitor will be placed directly against the skin of your upper arm at the level of your heart. It should be measured at least twice using the same arm. Certain conditions can cause a difference in blood pressure between your right and left arms. Certain factors can cause blood pressure readings to be lower or higher than normal for a short period of time: When your blood pressure is higher when you are in a health care provider's office than when you are at home, this is called white coat hypertension. Most people with this condition do not need medicines. When your blood pressure is higher at home than when you are in a health care provider's office, this is called masked hypertension. Most people with this condition may need medicines to control blood pressure. If you have a high blood pressure reading during one visit or you have normal blood pressure with other risk factors, you may be asked to: Return on a different day to have your blood pressure checked again. Monitor your blood pressure at home for 1 week or longer. If you are diagnosed with hypertension, you may have other blood or imaging tests to help your health care provider understand your overall risk for other conditions. How is this treated? This condition is treated by making healthy lifestyle changes, such as eating healthy foods, exercising more, and reducing your alcohol intake. Your health care provider may prescribe medicine if lifestyle changes are not enough to get your blood pressure under control, and if: Your systolic blood pressure is above 130. Your diastolic blood pressure is above 80. Your personal target blood pressure may vary depending on your medical conditions, your age, and other factors. Follow these instructions at home: Eating and drinking Eat a diet that is high in fiber and potassium, and low in sodium, added sugar, and fat. An exampleeating plan is called the DASH (Dietary Approaches to Stop Hypertension) diet. To eat this way: ?Eat plenty of fresh fruits and vegetables. Try to fill one half of your plate at each meal with fruits and vegetables. ?Eat whole grains, such as whole-wheat pasta, brown rice, or whole-grain bread. Fill about one fourth of your plate with whole grains. ?Eat or drink low-fat dairy products, such as skim milk or low-fat yogurt. ?Avoid fatty cuts of meat, processed or cured meats, and poultry with skin. Fill about one fourth of your plate with lean proteins, such as fish, chicken without skin, beans, eggs, or tofu. ?Avoid pre-made and processed foods. These tend to be higher in sodium, added sugar, and fat. Reduce your daily sodium intake. Most people with hypertension should eat less than 1,500 mg of sodium a day. Do not drink alcohol if: ?Your health care provider tells you not to drink. ?You are , may be , or are planning to become . If you drink alcohol: ?Limit how much you use to: ?0 1 drink a day for women. ?0 2 drinks a day for men. ?Be aware of how much alcohol is in your drink. In the [place] one drink equals one 12 oz bottle of beer (355 mL), one 5 oz glass of wine (148 mL), or one 1 oz glass of hard liquor (44 mL). Lifestyle Work with your health care provider to maintain a healthy body weight or to lose weight. Ask what an ideal weight is for you. Get at least 30 minutes of exercise most days of the week. Activities may include walking, swimming, or biking. Include exercise to strengthen your muscles (resistance exercise), such as Pilates or lifting weights, as part of your weekly exercise routine. Try to do these types of exercises for 30 minutes at least 3 days a week. Do not use any products that contain nicotine or tobacco, such as cigarettes, e- cigarettes, and chewing tobacco. If you need help quitting, ask your health care provider. Monitor your blood pressure at home as told by your health care provider. Keep all follow-up visits as told by your health care provider. This is important. Medicines Take [id number] and prescription medicines only as told by your health care provider. Follow directions carefully. Blood pressure medicines must be taken as prescribed. Do not skip doses of blood pressure medicine. Doing this puts you at risk for problems and can makethe medicine less effective. Ask your health care provider about side effects or reactions to medicines that you should watch for. Contact a health care provider if you: Think you are having a reaction to a medicine you are taking. Have headaches that keep coming back (recurring). Feel dizzy. Have swelling in your ankles. Have trouble with your vision. Get help right away if you: Develop a severe headache or confusion. Have unusual weakness or numbness. Feel faint. Have severe pain in your chest or abdomen. Vomit repeatedly. Have trouble breathing. Summary Hypertension is when the force of blood pumping through your arteries is too strong. If this condition is not controlled, it may put you at risk for serious complications. Your personal target blood pressure may vary depending on your medical conditions, your age, and other factors. For most people, a normal blood pressure is less than 120/80. Hypertension is treated with lifestyle changes, medicines, or a combination of both. Lifestyle changes include losing weight, eating a healthy, low-sodium diet, exercising more, and limiting alcohol. This information is not intended to replace advice given to you by your health care provider. Make sure you discuss any questions you have with your health care provider. Document Released: 09/25/2006 Document Revised: 06/05/2019 Document Reviewed: 06/05/2019 [employer] Patient Education 2020 [employer]. Follow Up Care 02/24/2022 08:13:52 With:AMELIA FREY Address: [address] [place] [address] Business (1) When:02/27/2022 10:23:00 Comments:Increase Losartan to 100 mg a day. Continue Metoprolol 50 mg a day. Make sure to take your blood pressure twice a day and follow-up with Dr. Frey tomorrow at 1 PM at her office. Return to the emergency room if your headache recurs, chest pain, dizziness or any new symptoms. [facility] note[facility] InformationNort [facility] Other Evaluation noteNo assessment information available [facility] Work Phone: Evaluation note* Diagnosis Onset Date Resolution Status Chronic kidney disease, stage 3b acute Resistant hypertension acute Weight gain, abnormal acute [facility] Work Phone: History general Narrative - Reported* Type Description Date Medical History HYPERTENSION Medical History RENAL IMPAIRMENT Medical History TOBACCO DEPENDENCE SYNDROME Surgical History TUBAL LIGATION Surgical History CHOLECYSTECTOMY Hospitalization History SEE ABOVE [facility] Other Hospital course Narrative No data available for this section [facility] Summary Purpose Family History Relationship Condition Age at Onset Recorded Date/T deniz father Unknown family member Unknown Not Specified Hypertension Unknown Unknown sister Hypertension Unknown Relationship Condition Age at Onset Recorded Date/T deniz father Unknown family member Unknown mother Hypertension Unknown Unknown sister Hypertension Unknown Advance Directives Advance Directive Response Recorded Date/ Time Advance Directives No January 02 11:20am Chief Complaint and Reason for Visit Chief Complaint BP Chief Complaint concerns about weigh t Reason for Visit Chronic kidney disea se, stage 3b Resistant hypertension Weight gain, abnormal Additional Source Comments INFORMATION SOURCE (unrecogn ized section and content) DATE CREATED AUTHOR 03/05/2022 [facility] DATE CREATED AUTHOR AUTHOR'S ORGANIZ ATION 12/13/2022 [facility] DATE CREATED AUTHOR AUTHOR'S ORGANIZ ATION 03/30/2024 [facility] REASON FOR VISIT (unrecogniz ed section and content) refillRENAL IMPAIRMENTNo Inf ormationNo InformationNo InformationrefillRefillRefillrefillfollow up Care Teams (unrecognized sec tion and content) Team Status: Active Member Role Status Dates Amelia Frey MD Primary Care Provider Active Team Status: Active Member Role Status Dates Rd Blakely Jr, MD Primary Care Provider Active Start: December 28, 2023 Amelia Frey MD Attending Provider Active St art: December 28, 2023 Team Status: Inactive Member Role Status Dates Amelia Frey MD Primary Care Provide r, Attending Provider Active Start: January 08, 2024 End: January 08, 2024 Team Status: Active Member Role Status Dates Amelia Frey MD Primary Care Provider Active Start: April 25, 2024 Tammy Hayes PA-C Attending Provider Active Start: April 25, 2024 Team Status: Inactive Member Role Status Dates Amelia Frey MD Primary Care Provide r, Attending Provider Active Start: May 07, 2024 End: May 07, 2024 Goals (unrecognized section and content) Goals may be documented in a n alternate section FOR RECORDS PERTAINING TO PATIENTS WHO ARE OR HAVE BEEN ENROLLED IN A CHEMICAL DEPENDENCY/SUBSTANCEABUSE PROGRAM, SOME INFORMATION MAY BE OMITTED. This clinical summary was aggregated from multiple sources. Caution should be exercised in using it in the provision of clinical care. This summary normalizes information from multiple sources, and as a consequence, information in this document may materially change the coding, format and clinical context of patient data. In addition, data may be omitted in some cases. CLINICAL DECISIONS SHOULD BE BASED ON THE PRIMARY CLINICAL RECORDS. [facility] [email or web address], [facility]. provides no warranty or guarantee of the accuracy or completeness of information in this document.
[2024-05-15 11:08] LABS: Basophils Absolute Auto 0.2 10^3/uL (0.0-0.1); Basophils Percent Auto 2.2 % (0.2-2.0); Eosinophils Absolute Auto 0.5 10^3/uL (0.0-0.7); Hematocrit 40.2 % (36.0-48.0); Immature Granulocytes Abs Auto 0.13 10^3/uL (0.00-0.03); Immature Granulocytes Pct Auto 1.3 % (0.0-0.5); Lymphocytes Absolute Auto 2.1 10^3/uL (1.2-3.8); Lymphocytes Percent Auto 20.1 % (20.5-60.0); Mean Corpuscular HGB Conc 32.3 g/dL (29.9-35.2); Mean Corpuscular Hemoglobin 30.2 pg (26.7-34.0); Mean Corpuscular Volume 93.3 fL (81.0-99.0); Mean Platelet Volume 10.7 fL (9.5-13.5); Monocytes Absolute Auto 1.4 10^3/uL (0.3-0.8); Neutrophils Absolute Auto 6.1 10^3/uL (1.4-6.5); Neutrophils Percent Auto 58.4 % (43.0-75.0); Platelet Count 132 10^3/uL (150-450); Red Blood Count 4.31 10^6/uL (4.20-5.40); Red Cell Distribution Width 14.7 % (11.0-15.0); White Blood Count 10.4 10^3/uL (4.0-11.0)
[2024-05-15 11:37] LABS: Anion Gap 9.8; BUN Creatinine Ratio 17.4; Calcium 9.5 mg/dL (8.5-10.1); Carbon Dioxide 26.4 mmol/L (21.0-32.0); Chloride 105 mmol/L (98-107); Estimated GFR (African America 54 (>=60); Estimated GFR (Non-African Ame 45 (>=60); Glucose 104 mg/dL (74-106); Potassium 4.2 mmol/L (3.5-5.1); Sodium 137 mmol/L (136-145); Thyroid Stimulating Hormone 4.417 uIU/mL (0.358-3.740)
[2024-05-15 11:53] LABS: Free T4 1.06 ng/dL (0.76-1.46)
== END 2024-05-15 10:45 | disposition home or self-care (01) ==
LOC: LAB 10:46
PROVIDERS: PCP Family Medicine; Visit Provider Family Medicine
DX: R63.5 Abnormal weight gain (principal); R55 Syncope and collapse; I1A.0 Resistant hypertension; N18.32 Chronic kidney disease, stage 3b
CPT/HCPCS: 36415; 80048; 82306; 82607; 82746; 84439; 84443; 85025

== ENCOUNTER 2024-08-07 18:15 | Emergency (ER) | payer MEDICARE, SELFPAY ==
[2024-08-07] VITALS (18 sets, daily range): BP systolic 180–258; BP diastolic 77–117; PULSE 57–69; O2SAT 97–99; BMI 23.8
--- OUTSIDE RECORDS SUMMARY | 2024-08-07 18:26 | XMS_ITS | CCD ---
Author Organization [facility] Care Team Providers [place] Master Name Role Phone AMELIA FREY Primary Care Physician [phone] SAURABH Puentes, DR RUBIO Consulting Unavailable HAY ., DR RUBIO Attending Unavailable SAURABH ., DR RUBIO Admitting Unavailable TK, DR AMELIA Ashton Primary Care Unavailable NITHIN, DR GEORGIE Bartholomew Consulting Unavailabl e NITHIN, DR GEORGIE Bartholomew Attending Unavailabl [...] Unavailable FREY, DR AMELIA Ashton Attending Unavailable TK, DR AMELIA Ashton Admitting Unavailable AALIYAH POOLE Consulting Unavailable TK, DR AMELIA Ashton Primary Care Unavailable VIRGILIO, AALIYAH Attending Unavailable VIRGILIO, AALIYAH Admitting Unavailable VIRGILIO, AALIYAH Admitting Unavailable VIRGILIO, AALIYAH Attending Unavailable FREY, DR AMELIA Ashton Primary Care Unavailable FREY, DR AMELIA Ashton Primary Care Unavailable FABIÁN HARRINGTON Admitting Unavailable ANIRUDH, FABIÁN Attending Unavailable FABIÁN HARRINGTON Consulting Unavailable TK, DR AMELIA Ashton Primary Care Unavailable PAY ., DR GARCIA Admitting Unavailable PAY ., DR GARCIA Attending Unavailable JAMES, DR HARJINDER Resendiz Consulting Unavailable PAY ., DR GARCIA Consulting Unavailable AL .RUSSELL Consulting Unavailable JAMES, DR HARJINDER Resendiz Consulting Unavailable EVAN WALLIS Attending Unavailable EVAN WALLIS Admitting Unavailable TK, DR AMELIA Ashton Primary Care Unavailable EVAN WALLIS Consulting Unavailable ANIRUDH, FABIÁN Attending Unavailable ANIRUDH, FABIÁN Admitting Unavailable ANIRUDH, FABIÁN Consulting Unavailable TK, DR AMELIA Ashton Primary Care Unavailable FREY, DR AMELIA Ashton Primary Care Unavailable RINKU, DR CINDY Resendiz Admitting Unavailable DOBBS, DR CINDY Resendiz Attending Unavailable RINKU, DR CINDY Resendiz Consulting Unavailable HAY ., DR RUBIO Consulting Unavailable HAY ., DR RUBIO Attending Unavailable HAY ., DR RUBIO Admitting Unavailable FREY, DR AMELIA Ashton Primary Care Unavailable ANIRUDH, FABIÁN Consulting Unavailable ANIRUDH, FABIÁN Attending Unavailable ANIRUDH, FABIÁN Admitting Unavailable FREY, DR AMELIA Ashton Primary Care Unavailable HAY ., DR RUBIO Consulting Unavailable HAY ., DR RUBIO Attending Unavailable HAY ., DR RUBIO Admitting Unavailable FREY, DR MAELIA Ashton Primary Care Unavailable ZAVALETA ., MR [...] ASTRID Consulting Unavailable ALGHOTHANI, MOHAMAD Admitting Unavailable MERCEDES, HERMELINDA Attending Unavailable TK, DR AMELIA Ashton Primary Care Unavailable RIVERTON, DR BERTHA Logan Consulting Unavailable ALGHOTHANI, MOHAMAD Consulting Unavailable Frey, Amelia Unavailable Rox Watson Unavailable VIRGILIO, AALIYAH Attending Unavailable VIRGILIO, AALIYAH Attending Unavailable ALGHOTHANI, MOHAMAD Attending Unavailable VIRGILIO, AALIYAH Attending Unavailable VIRGILIO, AALIYAH Attending Unavailable Allergies Allergy Classification Reported Allergen(s) Allergy Type Date of Onset Reaction(s) Facility (1 source) Sulfonamides (Antibiotic); Translations: [sulfa drugs] Drug allergy Unknown [facility] (2 sources) Sulfonamides (Antibiotic) Drug allergy (disorder) 4 [facility] (10 sources) Substance with sulfonamide structure and antibacterial mechanism of action (substance) Drug allergy Unknown [employer] Other (1 source) Sulfonamides (Antibiotic); Translations: [SULFA (SULFONAMIDE ANTIBIOTICS)] Propensity to adverse reactions to drug (disorder) 2 [facility] Medications Current Medications Medication Drug Class(es) Dates Sig (Normalized) Sig (Original) amLODIPine 5 mg oral tablet (10 sources) Dihydropyridine Calcium Channel Atif take 1 tablet by mouth every twenty-four hours carvedilol 25 mg oral tablet (13 sources) alpha-Adrenergic Atif, beta-Adrenergic Atif Start: 01-08-2024 take 1 tablet by mouth twice daily at mealtime take 1 tablet by mouth every twe lve hours cloNIDine hydrochloride 0.2 mg oral tablet (13 sources) Central alpha-2 Adrenergic Agonist Start: 01-08-2024 take 1 tablet by mouth twice daily take 1 tablet by mouth every twe lve hours furosemide 20 mg oral tablet (10 sources) Loop Diuretic hydrALAZINE hydrochloride 50 mg oral tablet (13 sources) Arteriolar Vasodilator Start: 4 take 100 mg by mouth three times daily Hydralazine Active 100 MG PO Three times daily January 05, 2024 12:00am take 2 tablets by mo ut every eight hours hydrALAZINE HCl 50 MG 2 tablet with food Orally Three times a day Active levothyroxine sodium 0.05 mg oral tablet (2 sources) l-Thyroxine Start: 05-17-2024 End: 06-19-2024 take 50 ug by mouth once daily Levothyroxine Active 50 MCG PO Daily June 19, 2024 11:42am losartan potassium 100 mg oral tablet (13 sources) Angiotensin 2 Receptor Atif Start: 01-08-2024 [...] as needed spironolactone 25 mg oral tablet (13 sources) Aldosterone Antagonist Start: 01-08-2024 take 1 tablet by mouth once daily Completed/Discontinued Medications Medication Drug Class(es) Dates Sig (Normalized) Sig (Original) LORazepam 0.5 mg oral tablet (13 sources) Benzodiazepine Start: 01-05-2024 End: 01-08-2024 take 0.5 mg by mouth twice daily Lorazepam Discontinued 0.5 MG PO Twice daily January 05, 2024 12:00am January 08, 2024 11:51am Start: 06-08-2023 take 1 tablet by juliette th twice daily as needed LORazepam 0.5 MG [...] Translations: [ANXIETY DISORDER UNSPECIFIED] Onset: 10-05-2022 Chronic Chronic kidney disease (15 sources) Chronic kidney disease stage 3B ; Translations: [Chronic kidney disease, stage 3b] 01-05-2024 Chronic Complications of surgical procedures or medical care (2 sources) Hypotension due to drugs; Translations: [Hypotension due to drugs] Onset: 02-17-2023 Episodic Diabetes mellitus without complication (2 sources) Increased glucose level; Translations: [Other abnormal glucose] 01-09-2024 Episodic Essential hypertension (20 sources) Essential hypertension; Translations: [Essential (primary) hypertension] Onset: 02-24-2022 Chronic Heart valve disorders (1 source) 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; Translations: [RHEUMATIC D/O AORTIC TRICUSPID VALV] Onset: 04-08-2022 Chronic Hypertension with complications and secondary hypertension (19 sources) Hypertensive urgency; Translations: [Hypertension secondary to other renal disorders] Onset: 04-06-2022 Chronic Nonspecific chest pain (5 sources) Other chest pain; Translations: [Chest pain, unspecified] Onset: 08-30-2022 Episodic Other aftercare (1 source) Other manager long term care (current) drug therapy; Translations: [OTH [facility] 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 THERAPY] Onset: 10-12-2022 Episodic Other and ill-defined heart disease (3 sources) Other ill-defined heart diseases; Translations: [OTHER ILL-DEFINED HEART DISEASES] Onset: 07-20-2022 Chronic Other lower respiratory disease (3 sources) Shortness of breath; Translations: [SHORTNESS OF BREATH] Onset: 09-26-2022 Episodic Other nutritional; endocrine; and metabolic disorders (2 sources) Abnormal weight gain; Translations: [Abnormal weight gain] 05-07-2024 Episodic Other nutritional; endocrine; and metabolic disorders (2 sources) Abnormal weight gain; Translations: [Abnormal weight gain] 05-07-2024 Episodic Residual codes; unclassified (4 sources) Insomnia; Translations: [Other insomnia] 01-05-2024 Chronic [...] DIGESTV TRACT] Onset: 09-21-2022 Episodic Substance-related disorders (4 sources) Nicotine dependence, cigarettes, uncomplicated; Translations: [Tobacco dependence syndrome] Onset: 10-05-2022 01-05-2024 Chronic Syncope (2 sources) Syncope; Translations: [Syncope and collapse] 05-07-2024 Episodic Unclassified (1 source) CONTACT W/AND (SUSP) EXPOS COVID-19; Translations: [CONTACT W/AND (SUSP) EXPOS COVID-19] Onset: 09-28-2022 Past or Other Problems Problem Classification Problem Date Documented Da te Episodic/Chronic Cardiac dysrhythmias (2 sources) Bradycardia, unspecified; Translations: [Bradycardia, unspecified] Onset: 03-28-2024 Episodic Chronic kidney disease (1 source) Chronic kidney disease Residual codes; unclassified (3 sources) Localized edema; Translations: [LOCALIZED EDEMA] Onset: 07-20-2022 Episodic Results Test Name Value Interpretation Reference Range Facility Office Visiton 06-28-2024 Follow-up visit [id number] Zoraida Barrios 1935 F Date Provider Department Center 06/28/2024 AALIYAH HENDERSON CARD [facility] Family History Problem Relation Age of Onset Hypertension Mother Family Status - Relation Status Age at Mother Level of Service:37899 MO OFFICE/OUTPATIENT ESTABLISHED LOW MDM 20 MIN Normal [facility] Basophils Auto (Bld) [#/Vol] on 05-15-2024 Basophils (Bld) [#/Vol] 0.2 10 3/uL High 0.0-0.1 [facility] Basophils/100 WBC Auto (Bld) on 05-15-2024 Basophils/100 WBC (Bld) 2.2 % High 0.2-2.0 [facility] Eosinophils/100 WBC Auto (Bl d)on 05-15-2024 Eosinophils/100 WBC (Bld) 5.0 % 0.9-7.0 [facility] Erythrocyte distribution wid th Auto (RBC) [Ratio]on 05-15-2024 Erythrocyte distribution width (RBC) [Ratio] 14.7 % 11.0-15.0 [facility] Estimated glomerular filtrat ion rate (GFR) non- Americanon 05-15-2024 GFR/1.73 sq M.predicted among non-blacks MDRD (S/P/Bld) [Vol rate/Area] 45 mL/min/{1.73_m2} Low >=60 [facility] Hematocrit Auto (Bld) [Volum e fraction]on 05-15-2024 Hematocrit (Bld) [Volume fraction] 40.2 % 36.0-48.0 [facility] Hemoglobin [Mass/volume] in Bloodon 05-15-2024 Hemoglobin (Bld) [Mass/Vol] 13.0 g/dL 12.0-16.0 [facility] Laboratory - Chemistry and C hemistry - challengeon 05-15-2024 Calcium [Mass/Vol] 9.5 mg/dL 8.5-10.1 [facility] Chloride [Moles/Vol] 105 mmol/L 98-107 [facility] CO2 [Moles/Vol] 26.4 mmol/L 21.0-32.0 [facility] Cobalamin (Vitamin B12) [Mass/Vol] 618.0 pg/mL 193.0-986.0 [facility] Creatinine [Mass/Vol] 1.15 mg/dL High 0.55-1.02 [facility] Free T4 [Mass/Vol] 1.06 ng/dL 0.76-1.46 [facility] GFR/1.73 sq M.predicted MDRD (S/P/Bld) [Vol rate/Area] 54 mL/min/{1.73_m2} Low >=60 [facility] Glucose [Mass/Vol] 104 mg/dL 74-106 [facility] Potassium [Moles/Vol] 4.2 mmol/L 3.5-5.1 [facility] Sodium [Moles/Vol] 137 mmol/L 136-145 [facility] TSH Qn 4.417 m[IU]/L High 0.358-3.740 [facility] Urea nitrogen [Mass/Vol] 20.0 mg/dL High 7.0-18.0 [facility] Urea nitrogen/Creatinine [Mass ratio] 17.4 mg/mg [facility] Laboratory - Hematology and Cell countson 05-15-2024 Immature granulocytes/100 WBC (Bld) 1.3 % High 0.0-0.5 [facility] Leukocytes [#/volume] correc geyl for nucleated erythrocytes in Blood by Automated counon 05-15-2024 WBC corrected for nucl RBC Auto (Bld) [#/Vol] 10.4 10 3/uL 4.0-11.0 [facility] Lymphocytes Auto (Bld) [#/Vo l]on 05-15-2024 Lymphocytes (Bld) [#/Vol] 2.1 10 3/uL 1.2-3.8 [facility] Lymphocytes/100 WBC Auto (Bl d)on 05-15-2024 Lymphocytes/100 WBC (Bld) 20.1 % Low 20.5-60.0 [facility] MCH Auto (RBC) [Entitic mass ]on 05-15-2024 MCH (RBC) [Entitic mass] 30.2 pg 26.7-34.0 [facility] MCHC Auto (RBC) [Mass/Vol]on 05-15-2024 MCHC (RBC) [Mass/Vol] 32.3 g/dL 29.9-35.2 [facility] MCV Auto (RBC) [Entitic vol] on 05-15-2024 MCV (RBC) [Entitic vol] 93.3 fL 81.0-99.0 [facility] Monocytes Auto (Bld) [#/Vol] on 05-15-2024 Monocytes (Bld) [#/Vol] 1.4 10 3/uL High 0.3-0.8 [facility] Monocytes/100 WBC Auto (Bld) on 05-15-2024 Monocytes/100 WBC (Bld) 13.0 % High 1.7-12.0 [facility] Neutrophils Auto (Bld) [#/Vo l]on 05-15-2024 Neutrophils (Bld) [#/Vol] 6.1 10 3/uL 1.4-6.5 [facility] Neutrophils/100 WBC Auto (Bl d)on 05-15-2024 Neutrophils/100 WBC (Bld) 58.4 % 43.0-75.0 [facility] No Panel Informationon 05-15 25-Hydroxy Vitamin D Total 32.6 ng/mL [facility] Comment on above: <20 ng/mL Vit D defi cient20-<30 ng/mL Vit D [id number] ng/mL Vit D sufficient>100 ng/mL Potential Toxicity Eosinophils # (Auto) 0.5 10 3/uL 0.0-0.7 [facility] Folate 12.10 ng/mL 8.60-58.90 [facility] Immature Granulocyte # (Auto) 0.13 10 3/uL High 0.00-0.03 [facility] Platelet mean volume Auto (B ld) [Entitic vol]on 05-15-2024 Platelet mean volume (Bld) [Entitic vol] 10.7 fL 9.5-13.5 [facility] Platelets Auto (Bld) [#/Vol] on 05-15-2024 Platelets (Bld) [#/Vol] 132 10 3/uL Low 150-450 [facility] RBC Auto (Bld) [#/Vol]on RBC (Bld) [#/Vol] 4.31 10 6/uL 4.20-5.40 [facility] Serum or plasma anion gap de terminationon 05-15-2024 Anion gap [Moles/Vol] 9.8 mmol/L [facility] Basophils Auto (Bld) [#/Vol] on 05-10-2024 Basophils (Bld) [#/Vol] 0.2 10 3/uL High 0.0-0.1 [facility] Basophils/100 WBC Auto (Bld) on 05-10-2024 Basophils/100 WBC (Bld) 3.1 % High 0.2-2.0 [facility] Eosinophils/100 WBC Auto (Bl d)on 05-10-2024 Eosinophils/100 WBC (Bld) 6.3 % 0.9-7.0 [facility] Erythrocyte distribution wid th Auto (RBC) [Ratio]on 05-10-2024 Erythrocyte distribution width (RBC) [Ratio] 14.8 % 11.0-15.0 [facility] Estimated glomerular filtrat ion rate (GFR) non- Americanon 05-10-2024 GFR/1.73 sq M.predicted among non-blacks MDRD (S/P/Bld) [Vol rate/Area] 39 mL/min/{1.73_m2} Low >=60 [facility] Fibrin D-dimer [Presence] in Platelet poor plasma by Latex agglutinationon 05-10-2024 Fibrin D-dimer LA Ql (PPP) 0.29 mg/L FEU <=0.59 [facility] Comment on above: Increases in D-Dimer concentration observed withthromboembolic events can be variable due to localization,size, and age of the thrombus. Therefore, a thromboembolicevent cannot be diagnosed with certainty on the basis of thereference range. D-Dimers may also be elevated for a varietyof disorders including advanced age, , coronarydisease, cancer, liver disease, infection, inflammation,hematoma, DIC, trauma, post-surgery, diabetes, thrombolyticor anticoagulant therapy, stress, and generalizedhospitalization. Globulin Calc (S) [Mass/Vol] on 05-10-2024 Globulin (S) [Mass/Vol] 3.1 g/dL [facility] Hematocrit Auto (Bld) [Volum e fraction]on 05-10-2024 Hematocrit (Bld) [Volume fraction] 39.6 % 36.0-48.0 [facility] Hemoglobin [Mass/volume] in Bloodon 05-10-2024 Hemoglobin (Bld) [Mass/Vol] 12.9 g/dL 12.0-16.0 [facility] INR in Platelet poor plasma by Coagulation assayon 05-10-2024 INR Coag (PPP) [Relative time] 1.34 {INR} [facility] Comment on above: DESIRED INR:2.0-3.0 CONDITIONS NOT LISTED BELOW2.5-3.5 FOR PROSTHETIC HEART VALVE REPLACEMENT2.5-3.5 [facility] THROMBOSIS Laboratory - Chemistry and C hemistry - challengeon 05-10-2024 Bilirubin Ql (U) Negative NEGATIVE [facility] Glucose (U) [Mass/Vol] Negative NEGATIVE [facility] Ketones Ql (U) Negative NEGATIVE [facility] pH (U) 6.0 [pH] 5.0-9.0 [facility] Specific gravity (U) [Rel density] 1.015 1.005-1.025 [facility] Urobilinogen Qn (U) 0.2 {Myranda'U}/dL 0.2-1.0 [facility] Albumin [Mass/Vol] 3.5 g/dL 3.4-5.0 [facility] ALP [Catalytic activity/Vol] 54 U/L 46-116 [facility] ALT [Catalytic activity/Vol] 17 U/L 14-59 [facility] AST [Catalytic activity/Vol] 14 U/L Low 15-37 [facility] Bilirubin [Mass/Vol] 0.4 mg/dL 0.2-1.0 [facility] Calcium [Mass/Vol] 9.5 mg/dL 8.5-10.1 [facility] Chloride [Moles/Vol] 104 mmol/L 98-107 [facility] CO2 [Moles/Vol] 26.0 mmol/L 21.0-32.0 [facility] Creatinine [Mass/Vol] 1.28 mg/dL High 0.55-1.02 [facility] GFR/1.73 sq M.predicted MDRD (S/P/Bld) [Vol rate/Area] 48 mL/min/{1.73_m2} Low >=60 [facility] Glucose [Mass/Vol] 143 mg/dL High 74-106 [facility] Natriuretic peptide B (Bld) [Mass/Vol] 178.0 pg/mL <=1800.0 [facility] Potassium [Moles/Vol] 3.9 mmol/L 3.5-5.1 [facility] Protein [Mass/Vol] 6.6 g/dL 6.4-8.2 [facility] Sodium [Moles/Vol] 136 mmol/L 136-145 [facility] Urea nitrogen [Mass/Vol] 21.0 mg/dL High 7.0-18.0 [facility] Urea nitrogen/Creatinine [Mass ratio] 16.4 mg/mg [facility] Laboratory - Hematology and Cell countson 05-10-2024 Immature granulocytes/100 WBC (Bld) 0.3 % 0.0-0.5 [facility] Laboratory - Specimen inform ationon 05-10-2024 Appearance (U) CLEAR CLEAR [facility] Color (U) LT. YELLOW YELLOW [facility] Laboratory - Urinalysison Leukocyte esterase Test strip Ql (U) SMALL Abnormal NEGATIVE [facility] Mucus Ql (Urine sed) NONE SEEN NONE SEEN [facility] Nitrite Ql (U) Negative NEGATIVE [facility] Protein Ql (U) Negative NEG/TRACE [facility] Leukocytes [#/volume] correc gely for nucleated erythrocytes in Blood by Automated counon 05-10-2024 WBC corrected for nucl RBC Auto (Bld) [#/Vol] 5.9 10 3/uL 4.0-11.0 [facility] Lymphocytes Auto (Bld) [#/Vo l]on 05-10-2024 Lymphocytes (Bld) [#/Vol] 1.8 10 3/uL 1.2-3.8 [facility] Lymphocytes/100 WBC Auto (Bl d)on 05-10-2024 Lymphocytes/100 WBC (Bld) 31.0 % 20.5-60.0 [facility] MCH Auto (RBC) [Entitic mass ]on 05-10-2024 MCH (RBC) [Entitic mass] 30.4 pg 26.7-34.0 [facility] MCHC Auto (RBC) [Mass/Vol]on 05-10-2024 MCHC (RBC) [Mass/Vol] 32.6 g/dL 29.9-35.2 [facility] MCV Auto (RBC) [Entitic vol] on 05-10-2024 MCV (RBC) [Entitic vol] 93.2 fL 81.0-99.0 [facility] Monocytes Auto (Bld) [#/Vol] on 05-10-2024 Monocytes (Bld) [#/Vol] 0.7 10 3/uL 0.3-0.8 [facility] Monocytes/100 WBC Auto (Bld) on 05-10-2024 Monocytes/100 WBC (Bld) 12.4 % High 1.7-12.0 [facility] Neutrophils Auto (Bld) [#/Vo l]on 05-10-2024 Neutrophils (Bld) [#/Vol] 2.8 10 3/uL 1.4-6.5 [facility] Neutrophils/100 WBC Auto (Bl d)on 05-10-2024 Neutrophils/100 WBC (Bld) 46.9 % 43.0-75.0 [facility] No Panel Informationon 05-10 Urine Bacteria TRACE #/HPF Abnormal NONE SEEN [facility] Urine Occult Blood TRACE-I NEGATIVE [facility] Urine Other Casts NONE SEEN #/LPF NONE SEEN [facility] Urine Other Crystals None Seen #/HPF None Seen [facility] Urine RBC 5-10 #/HPF Abnormal 0-2 [facility] Urine Squamous Epithelial Cells MODERATE #/LPF Abnormal NONE/RARE [facility] Urine WBC 0-2 #/HPF Abnormal NONE SEEN [facility] Eosinophils # (Auto) 0.4 10 3/uL 0.0-0.7 [facility] Immature Granulocyte # (Auto) 0.02 10 3/uL 0.00-0.03 [facility] Troponin I High Sensitivity 5.5 pg/mL 4.0-51.3 [facility] Comment on above: CUT-OFF POINTS HAVE BEEN [...] mean volume Auto (B ld) [Entitic vol]on 05-10-2024 Platelet mean volume (Bld) [Entitic vol] 10.9 fL 9.5-13.5 [facility] Platelets Auto (Bld) [#/Vol] on 05-10-2024 Platelets (Bld) [#/Vol] 144 10 3/uL Low 150-450 [facility] Prothrombin time (PT)on PT Coag (PPP) [Time] 13.8 s High 9.0-11.6 [facility] RBC Auto (Bld) [#/Vol]on RBC (Bld) [#/Vol] 4.25 10 6/uL 4.20-5.40 [facility] Serum or plasma albumin/glob ulin mass ratioon 05-10-2024 Albumin/Globulin [Mass ratio] 1.1 {ratio} [facility] Serum or plasma anion gap de terminationon 05-10-2024 Anion gap [Moles/Vol] 9.9 mmol/L [facility] Office Visiton 05-01-2024 Follow-up visit [id number] Zoraida Barrios 1935 F Date Provider Department Center 05/01/2024 AALIYAH HENDERSON [facility]STOB[facility] Family History Problem Relation Age of Onset Hypertension Mother Family Status - Relation Status Age at Mother Level of Service:27131 [place] OFFICE/OUTPATIENT ESTABLISHED LOW MDM 20 MIN Normal [facility] Basophils/100 WBC Manual cnt (Bld)on 04-25-2024 Basophils/100 WBC (Bld) 0.0 % Low 0.2-2.0 [facility] Eosinophils/100 WBC Manual c nt (Bld)on 04-25-2024 Eosinophils/100 WBC (Bld) 4.0 % 0.9-7.0 [facility] Erythrocyte distribution wid th Auto (RBC) [Ratio]on 04-25-2024 Erythrocyte distribution width (RBC) [Ratio] 14.7 % 11.0-15.0 [facility] Estimated glomerular filtrat ion rate (GFR) non- Americanon 04-25-2024 GFR/1.73 sq M.predicted among non-blacks MDRD (S/P/Bld) [Vol rate/Area] 42 mL/min/{1.73_m2} Low >=60 [facility] Globulin Calc (S) [Mass/Vol] on 04-25-2024 Globulin (S) [Mass/Vol] 3.4 g/dL [facility] Hematocrit Auto (Bld) [Volum e fraction]on 04-25-2024 Hematocrit (Bld) [Volume fraction] 43.1 % 36.0-48.0 [facility] Hemoglobin [Mass/volume] in Bloodon 04-25-2024 Hemoglobin (Bld) [Mass/Vol] 13.8 g/dL 12.0-16.0 [facility] INR in Platelet poor plasma by Coagulation assayon 04-25-2024 INR Coag (PPP) [Relative time] 1.31 {INR} [facility] Comment on above: DESIRED INR:2.0-3.0 CONDITIONS NOT LISTED BELOW2.5-3.5 FOR PROSTHETIC HEART VALVE REPLACEMENT2.5-3.5 RECURRENT THROMBOSIS Laboratory - Chemistry and C hemistry - challengeon 04-25-2024 Albumin [Mass/Vol] 4.0 g/dL 3.4-5.0 [facility] ALP [Catalytic activity/Vol] 63 U/L 46-116 [facility] ALT [Catalytic activity/Vol] 18 U/L 14-59 [facility] AST [Catalytic activity/Vol] 14 U/L Low 15-37 [facility] Bilirubin [Mass/Vol] 0.7 mg/dL 0.2-1.0 [facility] Calcium [Mass/Vol] 9.6 mg/dL 8.5-10.1 [facility] Chloride [Moles/Vol] 104 mmol/L 98-107 [facility] CO2 [Moles/Vol] 29.2 mmol/L 21.0-32.0 [facility] Creatinine [Mass/Vol] 1.21 mg/dL High 0.55-1.02 [facility] GFR/1.73 sq M.predicted MDRD (S/P/Bld) [Vol rate/Area] 51 mL/min/{1.73_m2} Low >=60 [facility] Glucose [Mass/Vol] 136 mg/dL High 74-106 [facility] Natriuretic peptide B (Bld) [Mass/Vol] 201.0 pg/mL <=1800.0 [facility] Potassium [Moles/Vol] 3.9 mmol/L 3.5-5.1 [facility] Protein [Mass/Vol] 7.4 g/dL 6.4-8.2 [facility] Sodium [Moles/Vol] 139 mmol/L 136-145 [facility] Urea nitrogen [Mass/Vol] 27.0 mg/dL High 7.0-18.0 [facility] Urea nitrogen/Creatinine [Mass ratio] 22.3 mg/mg [facility] Laboratory - Hematology and Cell countson 04-25-2024 Band form neutrophils/100 WBC (Bld) 4.0 % 0-5 [facility] Lymphocytes/100 WBC (Bld) 15.0 % Low 20.5-60.0 [facility] Monocytes/100 WBC (Bld) 3.0 % 1.7-12.0 [facility] Leukocytes [#/volume] correc gely for nucleated erythrocytes in Blood by Automated counon 04-25-2024 WBC corrected for nucl RBC Auto (Bld) [#/Vol] 13.3 10 3/uL High 4.0-11.0 [facility] MCH Auto (RBC) [Entitic mass ]on 04-25-2024 MCH (RBC) [Entitic mass] 30.1 pg 26.7-34.0 [facility] MCHC Auto (RBC) [Mass/Vol]on 04-25-2024 MCHC (RBC) [Mass/Vol] 32.0 g/dL 29.9-35.2 [facility] MCV Auto (RBC) [Entitic vol] on 04-25-2024 MCV (RBC) [Entitic vol] 93.9 fL 81.0-99.0 [facility] No Panel Informationon 04-25 Troponin I High Sensitivity 6.5 pg/mL 4.0-51.3 [facility] Comment on above: CUT-OFF POINTS HAVE BEEN [...] Absolute Basophils (Manual) 0.00 10 3/uL 0.00-0.10 [facility] Band Neutrophils # (Manual) 0.5 10 3/uL High 0.0-0.3 [facility] Eosinophils # (Manual) 0.53 10 3/uL 0.00-0.70 [facility] Lymphocytes # (Manual) 1.99 10 3/uL 1.20-3.80 [facility] Monocytes # (Manual) 0.39 10 3/uL 0.30-0.80 [facility] Segmented Neutrophils # (Manual) 9.84 10 3/uL High 1.4-6.5 [facility] Platelet mean volume Auto (B ld) [Entitic vol]on 04-25-2024 Platelet mean volume (Bld) [Entitic vol] 10.4 fL 9.5-13.5 [facility] Platelets Auto (Bld) [#/Vol] on 04-25-2024 Platelets (Bld) [#/Vol] 145 10 3/uL Low 150-450 [facility] Prothrombin time (PT)on 04-08 PT Coag (PPP) [Time] 13.5 s High 9.0-11.6 [facility] RBC Auto (Bld) [#/Vol]on RBC (Bld) [#/Vol] 4.59 10 6/uL 4.20-5.40 [facility] Segmented neutrophils/100 WB C Manual cnt (Bld)on 04-25-2024 Segmented neutrophils/100 WBC (Bld) 74.0 % [facility] Serum or plasma albumin/glob ulin mass ratioon 04-25-2024 Albumin/Globulin [Mass ratio] 1.2 {ratio} [facility] Serum or plasma anion gap de terminationon 04-25-2024 Anion gap [Moles/Vol] 9.7 mmol/L [facility] Office Visiton 03-28-2024 Follow-up visit [id number] Zoraida Barrios 1935 F Date Provider Department Center 03/28/2024 120-AALIYAH POOLE CRISTOBAL [facility] Family History Problem Relation Age of Onset Hypertension Mother Family Status - Relation Status Age at Mother Level of Service:71588 MO OFFICE/OUTPATIENT ESTABLISHED LOW MDM 20 MIN Normal [facility] Office Visiton 01-08-2024 Follow-up visit [id number] Zoraida Barrios 1935 F Date Provider Department Center 01/08/2024 3848-HERMELINDA HUGO CRISTOBAL [facility] Family History Problem Relation Age of Onset Hypertension Mother Family Status - Relation Status Age at Mother Level of Service:05179 MO OFFICE/OUTPATIENT ESTABLISHED LOW MDM 20 MIN Reason for Visit and Comments: Follow-up [687060] Normal [facility] Basophils Auto (Bld) [#/Vol] on 12-28-2023 Basophils (Bld) [#/Vol] 0.2 10 3/uL 0.0-0.1 [facility] Basophils/100 WBC Auto (Bld) on 12-28-2023 Basophils/100 WBC (Bld) 3.4 % 0.2-2.0 [facility] Eosinophils/100 WBC Auto (Bl d)on 12-28-2023 Eosinophils/100 WBC (Bld) 6.2 % 0.9-7.0 [facility] Erythrocyte distribution wid th Auto (RBC) [Ratio]on 12-28-2023 Erythrocyte distribution width (RBC) [Ratio] 14.8 % 11.0-15.0 [facility] Estimated glomerular filtrat ion rate (GFR) non- Americanon 12-28-2023 GFR/1.73 sq M.predicted among non-blacks MDRD (S/P/Bld) [Vol rate/Area] 46 mL/min/{1.73_m2} >=60 [facility] Hematocrit Auto (Bld) [Volum e fraction]on 12-28-2023 Hematocrit (Bld) [Volume fraction] 42.9 % 36.0-48.0 [facility] Hemoglobin [Mass/volume] in Bloodon 12-28-2023 Hemoglobin (Bld) [Mass/Vol] 13.7 g/dL 12.0-16.0 [facility] Laboratory - Chemistry and C hemistry - challengeon 12-28-2023 Calcium [Mass/Vol] 9.7 mg/dL 8.5-10.1 [facility] Chloride [Moles/Vol] 106 mmol/L 98-107 [facility] CO2 [Moles/Vol] 26.1 mmol/L 21.0-32.0 [facility] Creatinine [Mass/Vol] 1.11 mg/dL 0.55-1.02 [facility] GFR/1.73 sq M.predicted MDRD (S/P/Bld) [Vol rate/Area] 56 mL/min/{1.73_m2} >=60 [facility] Glucose [Mass/Vol] 108 mg/dL 74-106 [facility] Potassium [Moles/Vol] 3.8 mmol/L 3.5-5.1 [facility] Sodium [Moles/Vol] 139 mmol/L 136-145 [facility] Urea nitrogen [Mass/Vol] 22.0 mg/dL 7.0-18.0 [facility] Urea nitrogen/Creatinine [Mass ratio] 19.8 mg/mg [facility] Laboratory - Hematology and Cell countson 12-28-2023 Immature granulocytes/100 WBC (Bld) 0.5 % 0.0-0.5 [facility] Leukocytes [#/volume] correc gely for nucleated erythrocytes in Blood by Automated counon 12-28-2023 WBC corrected for nucl RBC Auto (Bld) [#/Vol] 6.0 10 3/uL 4.0-11.0 [facility] Lymphocytes Auto (Bld) [#/Vo l]on 12-28-2023 Lymphocytes (Bld) [#/Vol] 2.1 10 3/uL 1.2-3.8 [facility] Lymphocytes/100 WBC Auto (Bl d)on 12-28-2023 Lymphocytes/100 WBC (Bld) 34.9 % 20.5-60.0 [facility] MCH Auto (RBC) [Entitic mass ]on 12-28-2023 MCH (RBC) [Entitic mass] 30.0 pg 26.7-34.0 [facility] MCHC Auto (RBC) [Mass/Vol]on 12-28-2023 MCHC (RBC) [Mass/Vol] 31.9 g/dL 29.9-35.2 [facility] MCV Auto (RBC) [Entitic vol] on 12-28-2023 MCV (RBC) [Entitic vol] 93.9 fL 81.0-99.0 [facility] Monocytes Auto (Bld) [#/Vol] on 12-28-2023 Monocytes (Bld) [#/Vol] 0.9 10 3/uL 0.3-0.8 [facility] Monocytes/100 WBC Auto (Bld) on 12-28-2023 Monocytes/100 WBC (Bld) 15.1 % 1.7-12.0 [facility] Neutrophils Auto (Bld) [#/Vo l]on 12-28-2023 Neutrophils (Bld) [#/Vol] 2.4 10 3/uL 1.4-6.5 [facility] Neutrophils/100 WBC Auto (Bl d)on 12-28-2023 Neutrophils/100 WBC (Bld) 39.9 % 43.0-75.0 [facility] No Panel Informationon 12-27 Eosinophils # (Auto) 0.4 10 3/uL 0.0-0.7 [facility] Immature Granulocyte # (Auto) 0.03 10 3/uL 0.00-0.03 [facility] Troponin I High Sensitivity 6.6 pg/mL 4.0-51.3 [facility] Comment on above: CUT-OFF POINTS HAVE BEEN [...] volume (Bld) [Entitic vol] 10.8 fL 9.5-13.5 [facility] Platelets Auto (Bld) [#/Vol] on 12-28-2023 Platelets (Bld) [#/Vol] 142 10 3/uL 150-450 [facility] RBC Auto (Bld) [#/Vol]on RBC (Bld) [#/Vol] 4.57 10 6/uL 4.20-5.40 [facility] Serum or plasma anion gap de terminationon 12-28-2023 Anion gap [Moles/Vol] 10.7 mmol/L [facility] Office Visiton 10-25-2023 Follow-up visit [id number] Zoraida Barrios 1935 F Date Provider Department Center 10/25/2023 AALIYAH [facility] Family History Problem Relation Age of Onset Hypertension Mother Family Status - Relation Status Age at Mother Level of Service:16112 MO OFFICE/OUTPATIENT ESTABLISHED LOW MDM 20 MIN Reason for Visit and Comments: Follow-up [[id number]] Normal [facility] PROF CHEM 8 (BAS METB)on Anion gap [Moles/Vol] 12.5 mmol/L Normal [facility] Comment on above: Performed By: #### B MP #### [facility] [address] [address] [address] Arden Magallon Calcium [Mass/Vol] 10.0 mg/dL Normal 8.5-10.1 [facility] Comment on above: Performed By: #### B MP #### [facility] [address] [address] [address] Arden Magallon Chloride [Moles/Vol] 105 mmol/L Normal 98-107 [facility] Comment on above: Performed By: #### B MP #### [facility] [address] [address] [address] Arden Magallon CO2 [Moles/Vol] 29.9 mmol/L Normal 21.0-32.0 [facility] Comment on above: Performed By: #### B MP #### [facility] [address] [address] [address] Arden Magallon Creatinine [Mass/Vol] 1.26 mg/dL Critically high 0.55-1.02 [facility] Comment on above: Performed By: #### B MP #### [facility] [address] [address] [address] Arden Magallon EGFR-AF NAURUAN 49 mL/min/1.73m2 Critically low >=60 [facility] Comment on above: Performed By: #### B MP #### [facility] [address] [address] [address] Arden Magallon EGFR-NON AF NAURUAN 40 mL/min/1.73m2 Critically low >=60 [facility] Comment on above: Performed By: #### B MP #### [facility] [address] [address] [address] Arden Magallon Glucose [Mass/Vol] 108 mg/dL Critically high 74-106 [facility] Comment on above: Performed By: #### B MP #### [facility] [address] [address] [address] Arden Magallon Potassium [Moles/Vol] 3.4 mmol/L Critically low 3.5-5.1 [facility] Comment on above: Performed By: #### B MP #### [facility] [address] [place] [address] Dr. Arden Magallon Sodium [Moles/Vol] 144 mmol/L Normal 136-145 [facility] Comment on above: Performed By: #### B MP #### [facility] [address] [place] [address] Dr. Arden Magallon Urea nitrogen [Mass/Vol] 28.0 mg/dL Critically high 7.0-18.0 [facility] Comment on above: Performed By: #### B MP #### [facility] [address] [place] [address] Dr. Arden Magallon Urea nitrogen/Creatinine [Mass ratio] 22.2 mg/mg Normal [facility] Comment on above: Performed By: #### B MP #### [facility] [address] [place] [address] Dr. Arden Magallon CARDIAC CINDY 3-6on 2 CK [Catalytic activity/Vol] 27 U/L Normal 26-192 [facility] Comment on above: Performed By: #### B MP #### [facility] [address] [place] [address] Dr. Arden Magallon CK.MB [Mass/Vol] 0.84 ng/mL Normal <=3.60 [facility] Comment on above: Performed By: #### B MP #### [facility] [address] [place] [address] Dr. Arden Magallon HSTROP 12.4 pg/mL Normal 4.0-51.3 [facility] Comment on above: Result Comment: CUT- OFF POINTS HAVE BEEN ESTABLISHED BASED ON THE FOURTH UNIVERSAL DEFINITIONS OF MYOCARDIAL INFARCTION. THE UPPER REFERENCE LIMIT (URL) OF TROPONIN, DEFINED THE 99TH PERCENTILE OF cTnI DISTRIBUTION IN A REFERENCE POPULATION, HAS BEEN CONFIRMED THE DECISION THRESHOLD FOR NC DIAGNOSIS. Performed By: #### B MP #### [facility] [address] [place] [address] Dr. Arden Magallon CARDIAC CINDY ADMITon 022 CK [Catalytic activity/Vol] 42 U/L Normal 26-192 [facility] Comment on above: Performed By: #### B MP #### [facility] [address] [place] [address] Dr. Arden Magallon CK.MB [Mass/Vol] 0.82 ng/mL Normal <=3.60 [facility] Comment on above: Performed By: #### B MP #### [facility] [address] [place] [address] Dr. Arden Magallon HSTROP 9.8 pg/mL Normal 4.0-51.3 [facility] Comment on above: Result Comment: CUT- OFF POINTS HAVE BEEN ESTABLISHED BASED ON THE FOURTH UNIVERSAL DEFINITIONS OF MYOCARDIAL INFARCTION. THE UPPER REFERENCE LIMIT (URL) OF TROPONIN, DEFINED THE 99TH PERCENTILE OF cTnI DISTRIBUTION IN A REFERENCE POPULATION, HAS BEEN CONFIRMED THE DECISION THRESHOLD FOR NC DIAGNOSIS. Performed By: #### B MP #### [facility] [address] [place] [address] Dr. Arden Magallon IKE 50 ng/mL Normal 9-82 [facility] Comment on above: Performed By: #### B MP #### [facility] [address] [place] [address] Dr. Arden Magallon CBC AUTO DIFFon 09-30-2022 BASO # 0.2 103/ul Critically high 0.0-0.1 [facility] Comment on above: Performed By: #### C BC #### [facility] [address] [place] [address] Dr. Arden Magallon Basophils/100 WBC (Bld) 2.2 % Critically high 0.2-2.0 [facility] Comment on above: Performed By: #### C BC #### [facility] [address] [place] [address] Dr. Arden Magallon EO # 1.3 103/ul Critically high 0.0-0.7 [facility] Comment on above: Performed By: #### C BC #### [facility] [address] [place] [address] Dr. Arden Magallon Eosinophils/100 WBC (Bld) 16.5 % Critically high 0.9-7.0 [facility] Comment on above: Performed By: #### C BC #### [facility] [address] [place] [address] Dr. Arden Magallon Erythrocyte distribution width (RBC) [Ratio] 14.3 % Normal 11.0-15.0 [facility] Comment on above: Performed By: #### C BC #### [facility] [address] [place] [address] Dr. Arden Magallon Hematocrit (Bld) [Volume fraction] 38.3 % Normal 36.0-48.0 [facility] Comment on above: Performed By: #### C BC #### [facility] [address] [place] [address] Dr. Arden Magallon Hemoglobin (Bld) [Mass/Vol] 12.6 g/dL Normal 12.0-16.0 [facility] Comment on above: Performed By: #### C BC #### [facility] [address] [place] [address] Dr. Arden Magallon IG # 0.03 10e3/ul Normal 0.00-0.03 [facility] Comment on above: Performed By: #### C BC #### [facility] [address] [place] [address] Dr. Arden Magallon IG % 0.4 % Normal 0.0-0.5 [facility] Comment on above: Performed By: #### C BC #### [facility] [address] [place] [address] Dr. Arden Magallon LYMPH # 2.4 103/ul Normal 1.2-3.8 [facility] Comment on above: Performed By: #### C BC #### [facility] [address] [place] [address] Dr. Arden Magallon Lymphocytes/100 WBC (Bld) 30.0 % Normal 20.5-60.0 [facility] Comment on above: Performed By: #### C BC #### [facility] [address] [place] [address] Dr. Arden Magallon MANUAL DIFF REQ NO Normal [facility] Comment on above: Performed By: #### C BC #### [facility] [address] [place] [address] Dr. Arden Magallon MCH (RBC) [Entitic mass] 30.7 pg Normal 26.7-34.0 [facility] Comment on above: Performed By: #### C BC #### [facility] [address] [place] [address] Dr. Arden Magallon MCHC (RBC) [Mass/Vol] 32.9 g/dL Normal 29.9-35.2 [facility] Comment on above: Performed By: #### C BC #### [facility] [address] [place] [address] Dr. Arden Magallon MCV (RBC) [Entitic vol] 93.4 fL Normal 81.0-99.0 [facility] Comment on above: Performed By: #### C BC #### [facility] [address] [place] [address] Dr. Arden Magallon MONO # 1.1 103/ul Critically high 0.3-0.8 [facility] Comment on above: Performed By: #### C BC #### [facility] [address] [place] [address] Dr. Arden Magallon Monocytes/100 WBC (Bld) 14.2 % Critically high 1.7-12.0 [facility] Comment on above: Performed By: #### C BC #### [facility] [address] [place] [address] Dr. Arden Magallon NEUT # 2.9 103/ul Normal 1.4-6.5 [facility] Comment on above: Performed By: #### C BC #### [facility] [address] [place] [address] Dr. Arden Magaloln Neutrophils/100 WBC (Bld) 36.7 % Critically low 43.0-75.0 [facility] Comment on above: Performed By: #### C BC #### [facility] [address] [place] [address] Dr. Arden Magallon Platelet mean volume (Bld) [Entitic vol] 11.4 fL Normal 9.5-13.5 [facility] Comment on above: Performed By: #### C BC #### [facility] [address] [place] [address] Dr. Arden Magallon PLT 162 103/ul Normal 150-450 [facility] Comment on above: Performed By: #### C BC #### [facility] [address] [place] [address] Dr. Arden Magallon RBC 4.10 106/ul Critically low 4.20-5.40 [facility] Comment on above: Performed By: #### C BC #### [facility] [address] [place] [address] Dr. Arden Magallon WBC 8.0 103/ul Normal 4.0-11.0 [facility] Comment on above: Performed By: #### C BC #### [facility] [address] [place] [address] Dr. Arden Magallon PROF CHEM 8 (BAS METB)on Anion gap [Moles/Vol] 11.8 mmol/L Normal [facility] Comment on above: Performed By: #### B MP #### [facility] [address] [place] [address] Dr. Arden Magallon Calcium [Mass/Vol] 9.7 mg/dL Normal 8.5-10.1 [facility] Comment on above: Performed By: #### B MP #### [facility] [address] [place] [address] Dr. Arden Magallon Chloride [Moles/Vol] 105 mmol/L Normal 98-107 [facility] Comment on above: Performed By: #### B MP #### [facility] [address] [place] [address] Dr. Arden Magallon CO2 [Moles/Vol] 25.0 mmol/L Normal 21.0-32.0 [facility] Comment on above: Performed By: #### B MP #### [facility] [address] [place] [address] Dr. Arden Magallon Creatinine [Mass/Vol] 1.07 mg/dL Critically high 0.55-1.02 [facility] Comment on above: Performed By: #### B MP #### [facility] [address] [address] [address] Arden Magallon EGFR-AF NAURUAN 59 mL/min/1.73m2 Critically low >=60 [facility] Comment on above: Performed By: #### B MP #### [facility] [address] [address] [address] Arden Magallon EGFR-NON AF NAURUAN 49 mL/min/1.73m2 Critically low >=60 [facility] Comment on above: Performed By: #### B MP #### [facility] [address] [address] [address] Arden Magallon Glucose [Mass/Vol] 106 mg/dL Normal 74-106 [facility] Comment on above: Performed By: #### B MP #### [facility] [address] [address] [address] Arden Magallon Potassium [Moles/Vol] 3.8 mmol/L Normal 3.5-5.1 [facility] Comment on above: Performed By: #### B MP #### [facility] [address] [place] [address] Dr. Arden Magallon Sodium [Moles/Vol] 138 mmol/L Normal 136-145 [facility] Comment on above: Performed By: #### B MP #### [facility] [address] [address] [address] Arden Magallon Urea nitrogen [Mass/Vol] 18.0 mg/dL Normal 7.0-18.0 [facility] Comment on above: Performed By: #### B MP #### [facility] [address] [address] [address] Arden Magallon Urea nitrogen/Creatinine [Mass ratio] 16.8 mg/mg Normal [facility] Comment on above: Performed By: #### B MP #### [facility] [address] [address] [address] Arden Magallon CBC AUTO DIFFon 09-26-2022 BASO # 0.2 103/ul Critically high 0.0-0.1 [facility] Comment on above: Performed By: #### C BC #### [facility] [address] [place] [address] Dr. Arden Magallon Basophils/100 WBC (Bld) 2.1 % Critically high 0.2-2.0 [facility] Comment on above: Performed By: #### C BC #### [facility] [address] [place] [address] Dr. Arden Magallon EO # 1.5 103/ul Critically high 0.0-0.7 [facility] Comment on above: Performed By: #### C BC #### [facility] [address] [place] [address] Dr. Arden Magallon Eosinophils/100 WBC (Bld) 16.6 % Critically high 0.9-7.0 [facility] Comment on above: Performed By: #### C BC #### [facility] [address] [place] [address] Dr. Arden Magallon Erythrocyte distribution width (RBC) [Ratio] 14.1 % Normal 11.0-15.0 [facility] Comment on above: Performed By: #### C BC #### [facility] [address] [place] [address] Dr. Arden Magallon Hematocrit (Bld) [Volume fraction] 37.7 % Normal 36.0-48.0 [facility] Comment on above: Performed By: #### C BC #### [facility] [address] [place] [address] Dr. Arden Magallon Hemoglobin (Bld) [Mass/Vol] 12.5 g/dL Normal 12.0-16.0 [facility] Comment on above: Performed By: #### C BC #### [facility] [address] [place] [address] Dr. Arden Magallon IG # 0.04 10e3/ul Critically high 0.00-0.03 [facility] Comment on above: Performed By: #### C BC #### [facility] [address] [place] [address] Dr. Arden Magallon IG % 0.4 % Normal 0.0-0.5 [facility] Comment on above: Performed By: #### C BC #### [facility] [address] [place] [address] Dr. Arden Magallon LYMPH # 1.8 103/ul Normal 1.2-3.8 [facility] Comment on above: Performed By: #### C BC #### [facility] [address] [place] [address] Dr. Arden Magallon Lymphocytes/100 WBC (Bld) 19.6 % Critically low 20.5-60.0 [facility] Comment on above: Performed By: #### C BC #### [facility] [address] [place] [address] Dr. Arden Magallon MANUAL DIFF REQ NO Normal [facility] Comment on above: Performed By: #### C BC #### [facility] [address] [place] [address] Dr. Arden Magallon MCH (RBC) [Entitic mass] 31.1 pg Normal 26.7-34.0 [facility] Comment on above: Performed By: #### C BC #### [facility] [address] [place] [address] Dr. Arden Magallon MCHC (RBC) [Mass/Vol] 33.2 g/dL Normal 29.9-35.2 [facility] Comment on above: Performed By: #### C BC #### [facility] [address] [place] [address] Dr. Arden Magallon MCV (RBC) [Entitic vol] 93.8 fL Normal 81.0-99.0 [facility] Comment on above: Performed By: #### C BC #### [facility] [address] [place] [address] Dr. Arden Magallon MONO # 1.1 103/ul Critically high 0.3-0.8 [facility] Comment on above: Performed By: #### C BC #### [facility] [address] [place] [address] Dr. Arden Magallon Monocytes/100 WBC (Bld) 12.1 % Critically high 1.7-12.0 [facility] Comment on above: Performed By: #### C BC #### [facility] [address] [address] [address] Arden Magallon NEUT # 4.6 103/ul Normal 1.4-6.5 [facility] Comment on above: Performed By: #### C BC #### [facility] [address] [address] [address] Arden Magallon Neutrophils/100 WBC (Bld) 49.2 % Normal 43.0-75.0 [facility] Comment on above: Performed By: #### C BC #### [facility] [address] [address] [address] Arden Magallon Platelet mean volume (Bld) [Entitic vol] 10.8 fL Normal 9.5-13.5 [facility] Comment on above: Performed By: #### C BC #### [facility] [address] [place] [address] Dr. Arden Magallon PLT 149 103/ul Critically low 150-450 [facility] Comment on above: Performed By: #### C BC #### [facility] [address] [address] [address] Arden Magallon RBC 4.02 106/ul Critically low 4.20-5.40 [facility] Comment on above: Performed By: #### C BC #### [facility] [address] [place] [address] Dr. Arden Magallon WBC 9.3 103/ul Normal 4.0-11.0 [facility] Comment on above: Performed By: #### C BC #### [facility] [address] [place] [address] Dr. Arden Magallon Covid-19 PCR ([facility])on 09-08 SARS-CoV-2 (COVID-19) RNA ISABELLA+probe Ql (Unsp spec) Not detected Normal NOT DETECTED [facility] Comment on above: Result Comment: This test is not yet approved or cleared by the [place] FDA. When there are no FDA-approved or cleared tests available, and other criteria are met, FDA can make tests available under an emergency access mechanism called an Emergency Use Authorization (EUA). The EUA for this test is supported by the [employer] Worker of Health and Human Service's (HHS's) declaration [...] SARS-CoV-2. Performed By: #### C BC #### [facility] [address] [place] [address] Dr. Arden Magallon INFLUENZA A AND B [facility] 09-26 [facility] SEE BELOW Normal [facility] Comment on above: Result Comment: Nega tive for Flu A protein angiten. Infection due to Flu A cannot be ruled out. Flu A angiten in the sample may be below the detection limit of the test. Performed By: #### C BC #### [facility] [address] [place] [address] Dr. [facility] Normal [facility] Comment on above: Result Comment: Nega tive for Flu B protein antigen. Infection due to Flu B cannot be ruled out. Flu B antigen in the sample may be below the detection limit of the test. Performed By: #### C BC #### [facility] [address] [place] [address] Dr. Arden Magallon INFLUENZA A AG Negative Normal NEGATIVE SEE COMMENT [facility] Comment on above: Performed By: #### C BC #### [facility] [address] [place] [address] Dr. Arden Magallon INFLUENZA B AG Negative Normal NEGATIVE SEE COMMENT [facility] Comment on above: Performed By: #### C BC #### [facility] [address] [place] [address] Dr. Arden Magallon INTERNAL CONTROLS Within Normal Limits Normal Wi thin Normal Limits [facility] Comment on above: Performed By: #### C BC #### [facility] [address] [address] [address] Arden Magallon PROF CHEM 8 (BAS METB)on Anion gap [Moles/Vol] 10.8 mmol/L Normal Th [facility] Comment on above: Performed By: #### P T, DDIM #### [facility] [address] [place] [address] Dr. Arden Magallon Calcium [Mass/Vol] 9.3 mg/dL Normal 8.5-10.1 [facility] Comment on above: Performed By: #### P T, DDIM #### [facility] [address] [place] [address] Dr. Arden Magallon Chloride [Moles/Vol] 107 mmol/L Normal 98-107 [facility] Comment on above: Performed By: #### P T, DDIM #### [facility] [address] [place] [address] Dr. Arden Magallon CO2 [Moles/Vol] 28.0 mmol/L Normal 21.0-32.0 [facility] Comment on above: Performed By: #### P T, DDIM #### [facility] [address] [place] [address] Dr. Arden Magallon Creatinine [Mass/Vol] 0.98 mg/dL Normal 0.55-1.02 [facility] Comment on above: Performed By: #### P T, DDIM #### [facility] [address] [place] [address] Dr. Arden Magallon EGFR-AF NAURUAN >60 Normal >=60 [facility] Comment on above: Performed By: #### P T, DDIM #### [facility] [address] [place] [address] Dr. Arden Magallon EGFR-NON AF NAURUAN 54 mL/min/1.73m2 Critically low >=60 [facility] Comment on above: Performed By: #### P T, DDIM #### [facility] [address] [place] [address] Dr. Arden Magallon Glucose [Mass/Vol] 111 mg/dL Critically high 74-[address] [facility] Comment on above: Performed By: #### P T, DDIM #### [facility] [address] [address] [address] Arden Magallon Potassium [Moles/Vol] 3.8 mmol/L Normal 3.5-5.1 [facility] Comment on above: Performed By: #### P T, DDIM #### [facility] [address] [address] [address] Arden Magallon Sodium [Moles/Vol] 142 mmol/L Normal 136-145 [facility] Comment on above: Performed By: #### P T, DDIM #### [facility] [address] [place] [address] Dr. Arden Magallon Urea nitrogen [Mass/Vol] 15.0 mg/dL Normal 7.0-18.0 [facility] Comment on above: Performed By: #### P T, DDIM #### [facility] [address] [place] [address] Dr. Arden Magallon Urea nitrogen/Creatinine [Mass ratio] 15.3 mg/mg Normal [facility] Comment on above: Performed By: #### P T, DDIM #### [facility] [address] [place] [address] Dr. Arden Magallon XR CHEST 1 Von 09-26-2022 XR CHEST 1 V EXAMINATION: XR CHES T 1 V HISTORY: SHORTNESS OF BREATH COMPARISON: [...] by: HARJINDER RAMIREZ Date: 2022-09-26 10:22 Normal [facility] CBC AUTO DIFFon 09-21-2022 BASO # 0.2 103/ul Critically high 0.0-0.1 [facility] Comment on above: Performed By: #### C BC #### [facility] [address] [address] [address] Arden Magallon Basophils/100 WBC (Bld) 2.0 % Normal 0.2-2.0 [facility] Comment on above: Performed By: #### C BC #### [facility] [address] [address] [address] Arden Magallon EO # 0.8 103/ul Critically high 0.0-0.7 [facility] Comment on above: Performed By: #### C BC #### [facility] [address] [place] [address] Dr. Arden Magallon Eosinophils/100 WBC (Bld) 9.7 % Critically high 0.9-7.0 [facility] Comment on above: Performed By: #### C BC #### [facility] [address] [place] [address] Dr. Arden Magallon Erythrocyte distribution width (RBC) [Ratio] 14.2 % Normal 11.0-15.0 [facility] Comment on above: Performed By: #### C BC #### [facility] [address] [place] [address] Dr. Arden Magallon Hematocrit (Bld) [Volume fraction] 39.2 % Normal 36.0-48.0 [facility] Comment on above: Performed By: #### C BC #### [facility] [address] [place] [address] Dr. Arden Magallon Hemoglobin (Bld) [Mass/Vol] 12.7 g/dL Normal 12.0-16.0 [facility] Comment on above: Performed By: #### C BC #### [facility] [address] [place] [address] Dr. Arden Magallon IG # 0.04 10e3/ul Critically high 0.00-0.03 [facility] Comment on above: Performed By: #### C BC #### [facility] [address] [place] [address] Dr. Arden Magallon IG % 0.5 % Normal 0.0-0.5 [facility] Comment on above: Performed By: #### C BC #### [facility] [address] [place] [address] Dr. Arden Magallon LYMPH # 1.7 103/ul Normal 1.2-3.8 [facility] Comment on above: Performed By: #### C BC #### [facility] [address] [place] [address] Dr. Arden Magallon Lymphocytes/100 WBC (Bld) 19.2 % Critically low 20.5-60.0 [facility] Comment on above: Performed By: #### C BC #### [facility] [address] [place] [address] Dr. Arden Magallon MANUAL DIFF REQ NO Normal [facility] Comment on above: Performed By: #### C BC #### [facility] [address] [place] [address] Dr. Arden Magallon MCH (RBC) [Entitic mass] 31.1 pg Normal 26.7-34.0 [facility] Comment on above: Performed By: #### C BC #### [facility] [address] [place] [address] Dr. Arden Magallon MCHC (RBC) [Mass/Vol] 32.4 g/dL Normal 29.9-35.2 [facility] Comment on above: Performed By: #### C BC #### [facility] [address] [place] [address] Dr. Arden Magallon MCV (RBC) [Entitic vol] 96.1 fL Normal 81.0-99.0 [facility] Comment on above: Performed By: #### C BC #### [facility] [address] [place] [address] Dr. Arden Magallon MONO # 0.8 103/ul Normal 0.3-0.8 [facility] Comment on above: Performed By: #### C BC #### [facility] [address] [place] [address] Dr. Arden Magallon Monocytes/100 WBC (Bld) 9.5 % Normal 1.7-12.0 [facility] Comment on above: Performed By: #### C BC #### [facility] [address] [address] [address] Arden Magallon NEUT # 5.2 103/ul Normal 1.4-6.5 [facility] Comment on above: Performed By: #### C BC #### [facility] [address] [address] [address] Arden Magallon Neutrophils/100 WBC (Bld) 59.1 % Normal 43.0-75.0 [facility] Comment on above: Performed By: #### C BC #### [facility] [address] [place] [address] Dr. Arden Magallon Platelet mean volume (Bld) [Entitic vol] 11.0 fL Normal 9.5-13.5 [facility] Comment on above: Performed By: #### C BC #### [facility] [address] [place] [address] Dr. Arden Magallon PLT 167 103/ul Normal 150-450 [facility] Comment on above: Performed By: #### C BC #### [facility] [address] [place] [address] Dr. Arden Magallon RBC 4.08 106/ul Critically low 4.20-5.40 [facility] Comment on above: Performed By: #### C BC #### [facility] [address] [place] [address] Dr. Arden Magallon WBC 8.7 103/ul Normal 4.0-11.0 [facility] Comment on above: Performed By: #### C BC #### [facility] [address] [place] [address] Dr. Arden Magallon PROF CHEM 8 (BAS METB)on Anion gap [Moles/Vol] 10.4 mmol/L Normal [facility] Comment on above: Performed By: #### B MP #### [facility] [address] [place] [address] Dr. Arden Magallon Calcium [Mass/Vol] 9.9 mg/dL Normal 8.5-10.1 [facility] Comment on above: Performed By: #### B MP #### [facility] [address] [address] [address] Arden Magallon Chloride [Moles/Vol] 104 mmol/L Normal 98-107 [facility] Comment on above: Performed By: #### B MP #### [facility] [address] [address] [address] Arden Magallon CO2 [Moles/Vol] 28.0 mmol/L Normal 21.0-32.0 [facility] Comment on above: Performed By: #### B MP #### [facility] [address] [address] [address] Arden Magallon Creatinine [Mass/Vol] 1.20 mg/dL Critically high 0.55-1.02 [facility] Comment on above: Performed By: #### B MP #### [facility] [address] [address] [address] Arden Magallon EGFR-AF NAURUAN 52 mL/min/1.73m2 Critically low >=60 [facility] Comment on above: Performed By: #### B MP #### [facility] [address] [address] [address] Arden Magallon EGFR-NON AF NAURUAN 43 mL/min/1.73m2 Critically low >=60 [facility] Comment on above: Performed By: #### B MP #### [facility] [address] [address] [address] Arden Magallon Glucose [Mass/Vol] 133 mg/dL Critically high 74-[address] [facility] Comment on above: Performed By: #### B MP #### [facility] [address] [address] [address] Arden Magallon Potassium [Moles/Vol] 3.4 mmol/L Critically low 3.5-5.1 [facility] Comment on above: Performed By: #### B MP #### [facility] [address] [address] [address] Arden Magallon Sodium [Moles/Vol] 139 mmol/L Normal 136-145 [facility] Comment on above: Performed By: #### B MP #### [facility] [address] [place] [address] Dr. Arden Magallon Urea nitrogen [Mass/Vol] 19.0 mg/dL Critically high 7.0-18.0 [facility] Comment on above: Performed By: #### B MP #### [facility] [address] [place] [address] Dr. Arden Magallon Urea nitrogen/Creatinine [Mass ratio] 15.8 mg/mg Normal [facility] Comment on above: Performed By: #### B MP #### [facility] [address] [place] [address] Dr. Arden Magallon TSHon 09-21-2022 TSH 1.918 uIU/mL Normal 0.358-3.740 [facility] Comment on above: Performed By: #### B MP #### [facility] [address] [place] [address] Dr. Arden Magallon BNPon 09-18-2022 Natriuretic peptide B (Bld) [Mass/Vol] 366.0 pg/mL Normal <=1,800.0 [facility] Comment on above: Performed By: #### B STAMP REDEMPTION CLERK, CMP #### [facility] [address] [place] [address] Dr. Arden Magallon CBC AUTO DIFFon 09-18-2022 BASO # 0.1 103/ul Normal 0.0-0.1 [facility] Comment on above: Performed By: #### C BC #### [facility] [address] [place] [address] Dr. Arden Magallon Basophils/100 WBC (Bld) 1.7 % Normal 0.2-2.0 [facility] Comment on above: Performed By: #### C BC #### [facility] [address] [place] [address] Dr. Arden Magallon EO # 0.7 103/ul Normal 0.0-0.7 [facility] Comment on above: Performed By: #### C BC #### [facility] [address] [place] [address] Dr. Arden Magallon Eosinophils/100 WBC (Bld) 9.1 % Critically high 0.9-7.0 [facility] Comment on above: Performed By: #### C BC #### [facility] [address] [place] [address] Dr. Arden Magallon Erythrocyte distribution width (RBC) [Ratio] 14.4 % Normal 11.0-15.0 [facility] Comment on above: Performed By: #### C BC #### [facility] [address] [place] [address] Dr. Arden Magallon Hematocrit (Bld) [Volume fraction] 39.0 % Normal 36.0-48.0 [facility] Comment on above: Performed By: #### C BC #### [facility] [address] [place] [address] Dr. Arden Magallon Hemoglobin (Bld) [Mass/Vol] 12.8 g/dL Normal 12.0-16.0 [facility] Comment on above: Performed By: #### C BC #### [facility] [address] [place] [address] Dr. Arden Magallon IG # 0.02 10e3/ul Normal 0.00-0.03 [facility] Comment on above: Performed By: #### C BC #### [facility] [address] [place] [address] Dr. Arden Magallon IG % 0.3 % Normal 0.0-0.5 [facility] Comment on above: Performed By: #### C BC #### [facility] [address] [place] [address] Dr. Arden Magallon LYMPH # 1.8 103/ul Normal 1.2-3.8 [facility] Comment on above: Performed By: #### C BC #### [facility] [address] [place] [address] Dr. Arden Magallon Lymphocytes/100 WBC (Bld) 23.6 % Normal 20.5-60.0 [facility] Comment on above: Performed By: #### C BC #### [facility] [address] [place] [address] Dr. Arden Magallon MANUAL DIFF REQ NO Normal [facility] Comment on above: Performed By: #### C BC #### [facility] [address] [address] [address] Arden Magallon MCH (RBC) [Entitic mass] 31.0 pg Normal 26.7-34.0 [facility] Comment on above: Performed By: #### C BC #### [facility] [address] [place] [address] Dr. Arden Magallon MCHC (RBC) [Mass/Vol] 32.8 g/dL Normal 29.9-35.2 [facility] Comment on above: Performed By: #### C BC #### [facility] [address] [place] [address] Dr. Arden Magallon MCV (RBC) [Entitic vol] 94.4 fL Normal 81.0-99.0 [facility] Comment on above: Performed By: #### C BC #### [facility] [address] [place] [address] Dr. Arden Magallon MONO # 1.1 103/ul Critically high 0.3-0.8 [facility] Comment on above: Performed By: #### C BC #### [facility] [address] [place] [address] Dr. Arden Magallon Monocytes/100 WBC (Bld) 15.2 % Critically high 1.7-12.0 [facility] Comment on above: Performed By: #### C BC #### [facility] [address] [place] [address] Dr. Arden Magallon NEUT # 3.8 103/ul Normal 1.4-6.5 [facility] Comment on above: Performed By: #### C BC #### [facility] [address] [place] [address] Dr. Arden Magallon Neutrophils/100 WBC (Bld) 50.1 % Normal 43.0-75.0 [facility] Comment on above: Performed By: #### C BC #### [facility] [address] [place] [address] Dr. Arden Magallon Platelet mean volume (Bld) [Entitic vol] 11.0 fL Normal 9.5-13.5 [facility] Comment on above: Performed By: #### C BC #### [facility] [address] [address] [address] Arden Magallon PLT 149 103/ul Critically low 150-450 [facility] Comment on above: Performed By: #### C BC #### [facility] [address] [id number] Arden Magallon RBC 4.13 106/ul Critically low 4.20-5.40 [facility] Comment on above: Performed By: #### C BC #### [facility] [address] [address] [address] Arden Magallon WBC 7.5 103/ul Normal 4.0-11.0 [facility] Comment on above: Performed By: #### C BC #### [facility] [address] [place] [address] Dr. Arden Magallon D-DIMERon 09-18-2022 D-DIMER 0.32 mg/L FEU Normal <=0.59 [facility] Comment on above: Performed By: #### P T, DDIM #### [facility] [address] [place] [address] Dr. Arden Magallon D-DIMER COMMENTS SEE BELOW Normal [facility] Comment on above: Result Comment: Incr eases [...] Performed By: #### P T, DDIM #### [facility] [address] [place] [address] Dr. Arden Magallon PROF 14(COMP METB)on 022 Albumin [Mass/Vol] 3.5 g/dL Normal 3.4-5.0 [facility] Comment on above: Performed By: #### B STAMP REDEMPTION CLERK, CMP #### [facility] [address] [address] [address] Arden Magallon Albumin/Globulin [Mass ratio] 1.2 {ratio} Normal [facility] Comment on above: Performed By: #### B STAMP REDEMPTION CLERK, CMP #### [facility] [address] [address] [address] Arden Magallon ALP [Catalytic activity/Vol] 57 U/L Normal 46-116 [facility] Comment on above: Performed By: #### B STAMP REDEMPTION CLERK, CMP #### [facility] [address] [address] [address] Arden Magallon ALT [Catalytic activity/Vol] 16 U/L Normal 14-59 [facility] Comment on above: Performed By: #### B STAMP REDEMPTION CLERK, CMP #### [facility] [address] [place] [address] Dr. Arden Magallon Anion gap [Moles/Vol] 9.1 mmol/L Normal [facility] Comment on above: Performed By: #### B STAMP REDEMPTION CLERK, CMP #### [facility] [address] [place] [address] Dr. Arden Magallon AST [Catalytic activity/Vol] 17 U/L Normal 15-37 [facility] Comment on above: Performed By: #### B STAMP REDEMPTION CLERK, CMP #### [facility] [address] [place] [address] Dr. Arden Magallon Bilirubin [Mass/Vol] 0.3 mg/dL Normal 0.2-1.0 [facility] Comment on above: Performed By: #### B STAMP REDEMPTION CLERK, CMP #### [facility] [address] [address] [address] Arden Magallon Calcium [Mass/Vol] 9.6 mg/dL Normal 8.5-10.1 [facility] Comment on above: Performed By: #### B STAMP REDEMPTION CLERK, CMP #### [facility] [address] [address] [address] Arden Magallon Chloride [Moles/Vol] 106 mmol/L Normal 98-107 [facility] Comment on above: Performed By: #### B STAMP REDEMPTION CLERK, CMP #### [facility] [address] [address] [address] Arden Magallon CO2 [Moles/Vol] 24.9 mmol/L Normal 21.0-32.0 [facility] Comment on above: Performed By: #### B STAMP REDEMPTION CLERK, CMP #### [facility] [address] [address] [address] Arden Magallon Creatinine [Mass/Vol] 1.06 mg/dL Critically high 0.55-1.02 [facility] Comment on above: Performed By: #### B STAMP REDEMPTION CLERK, CMP #### [facility] [address] [address] [address] Arden Magallon EGFR-AF NAURUAN =60 Normal >=60 [facility] Comment on above: Performed By: #### B STAMP REDEMPTION CLERK, CMP #### [facility] [address] [address] [address] Arden Magallon EGFR-NON AF NAURUAN 49 mL/min/1.73m2 Critically low >=60 [facility] Comment on above: Performed By: #### B STAMP REDEMPTION CLERK, CMP #### [facility] [address] [address] [address] Arden Magallon Globulin (S) [Mass/Vol] 3.0 g/dL Normal [facility] Comment on above: Performed By: #### B STAMP REDEMPTION CLERK, CMP #### [facility] [address] [address] [address] Arden Magallon Glucose [Mass/Vol] 111 mg/dL Critically high 74-106 [facility] Comment on above: Performed By: #### B STAMP REDEMPTION CLERK, CMP #### [facility] [address] [address] [address] Arden Magallon Potassium [Moles/Vol] 4.0 mmol/L Normal 3.5-5.1 [facility] Comment on above: Performed By: #### B STAMP REDEMPTION CLERK, CMP #### [facility] [address] [address] [address] Arden Magallon Protein [Mass/Vol] 6.5 g/dL Normal 6.4-8.2 [facility] Comment on above: Performed By: #### B STAMP REDEMPTION CLERK, CMP #### [facility] [address] [address] [address] Arden Magallon Sodium [Moles/Vol] 136 mmol/L Normal 136-145 [facility] Comment on above: Performed By: #### B STAMP REDEMPTION CLERK, CMP #### [facility] [address] [address] [address] Arden Magallon Urea nitrogen [Mass/Vol] 16.0 mg/dL Normal 7.0-18.0 [facility] Comment on above: Performed By: #### B STAMP REDEMPTION CLERK, CMP #### [facility] [address] [address] [address] Arden Magallon Urea nitrogen/Creatinine [Mass ratio] 15.1 mg/mg Normal [facility] Comment on above: Performed By: #### B STAMP REDEMPTION CLERK, CMP #### [facility] [address] [place] [address] Dr. Arden Magallon TROPONIN, HIGH SENSITIVITYon 09-18-2022 HSTROP 8.3 pg/mL Normal 4.0-51.3 [facility] Comment on above: Result Comment: CUT- OFF POINTS HAVE BEEN ESTABLISHED BASED ON THE FOURTH UNIVERSAL DEFINITIONS OF MYOCARDIAL INFARCTION. THE UPPER REFERENCE LIMIT (URL) OF TROPONIN, DEFINED THE 99TH PERCENTILE OF cTnI DISTRIBUTION IN A REFERENCE POPULATION, HAS BEEN CONFIRMED THE DECISION THRESHOLD FOR NC DIAGNOSIS. Performed By: #### B STAMP REDEMPTION CLERK, CMP #### [facility] [address] [place] [address] Dr. Arden Magallon XR CHEST 1 Von 09-18-2022 XR CHEST 1 V EXAMINATION: XR CHES T 1 V, 09/18/2022 3:26 PM EST HISTORY: [...] BERNIE NAVARRO Date: 2022-09-18 16:11 Normal [facility] CBC AUTO DIFFon 09-11-2022 BASO # 0.1 103/ul Normal 0.0-0.1 [facility] Comment on above: Performed By: #### B MP #### [facility] [address] [address] [address] Arden Magallon Basophils/100 WBC (Bld) 2.3 % Critically high 0.2-2.0 [facility] Comment on above: Performed By: #### B MP #### [facility] [address] [place] [address] Dr. Arden Magallon EO # 0.5 103/ul Normal 0.0-0.7 [facility] Comment on above: Performed By: #### B MP #### [facility] [address] [place] [address] Dr. Arden Magallon Eosinophils/100 WBC (Bld) 8.0 % Critically high 0.9-7.0 [facility] Comment on above: Performed By: #### B MP #### [facility] Laboratory [address] [place] [address] Dr. Arden Magallon Erythrocyte distribution width (RBC) [Ratio] 13.8 % Normal 11.0-15.0 [facility] Comment on above: Performed By: #### B MP #### [facility] [address] [place] [address] Dr. Arden Magallon Hematocrit (Bld) [Volume fraction] 40.5 % Normal 36.0-48.0 [facility] Comment on above: Performed By: #### B MP #### [facility] [address] [place] [address] Dr. Arden Magallon Hemoglobin (Bld) [Mass/Vol] 13.5 g/dL Normal 12.0-16.0 [facility] Comment on above: Performed By: #### B MP #### [facility] [address] [place] [address] Dr. Arden Magallon IG # 0.01 10e3/ul Normal 0.00-0.03 [facility] Comment on above: Performed By: #### B MP #### [facility] [address] [place] [address] Dr. Arden Magallon IG % 0.2 % Normal 0.0-0.5 [facility] Comment on above: Performed By: #### B MP #### [facility] [address] [place] [address] Dr. Arden Magallon LYMPH # 1.5 103/ul Normal 1.2-3.8 [facility] Comment on above: Performed By: #### B MP #### [facility] [address] [place] [address] Dr. Arden Magallon Lymphocytes/100 WBC (Bld) 24.9 % Normal 20.5-60.0 [facility] Comment on above: Performed By: #### B MP #### [facility] [address] [place] [address] Dr. Arden Magallon MANUAL DIFF REQ NO Normal [facility] Comment on above: Performed By: #### B MP #### [facility] [address] [place] [address] Dr. Arden Magallon MCH (RBC) [Entitic mass] 31.1 pg Normal 26.7-34.0 [facility] Comment on above: Performed By: #### B MP #### [facility] [address] [place] [address] Dr. Arden Magallon MCHC (RBC) [Mass/Vol] 33.3 g/dL Normal 29.9-35.2 [facility] Comment on above: Performed By: #### B MP #### [facility] [address] [place] [address] Dr. Arden Magallon MCV (RBC) [Entitic vol] 93.3 fL Normal 81.0-99.0 [facility] Comment on above: Performed By: #### B MP #### [facility] [address] [place] [address] Dr. Arden Magallon MONO # 1.0 103/ul Critically high 0.3-0.8 [facility] Comment on above: Performed By: #### B MP #### [facility] [address] [address] [address] Arden Magallon Monocytes/100 WBC (Bld) 16.0 % Critically high 1.7-12.0 [facility] Comment on above: Performed By: #### B MP #### [facility] [address] [address] [address] Arden Magallon NEUT # 2.9 103/ul Normal 1.4-6.5 [facility] Comment on above: Performed By: #### B MP #### [facility] [address] [address] [address] Arden Magallon Neutrophils/100 WBC (Bld) 48.6 % Normal 43.0-75.0 [facility] Comment on above: Performed By: #### B MP #### [facility] [address] [place] [address] Dr. Arden Magallon Platelet mean volume (Bld) [Entitic vol] 10.8 fL Normal 9.5-13.5 [facility] Comment on above: Performed By: #### B MP #### [facility] [address] [place] [address] Dr. Aredn Magallon PLT 138 103/ul Critically low 150-450 [facility] Comment on above: Performed By: #### B MP #### [facility] [address] [address] [address] Arden Magallon RBC 4.34 106/ul Normal 4.20-5.40 [facility] Comment on above: Performed By: #### B MP #### [facility] [address] [place] [address] Dr. Arden Magallon WBC 6.0 103/ul Normal 4.0-11.0 [facility] Comment on above: Performed By: #### B MP #### [facility] [address] [place] [address] Dr. Arden Magallon PROF CHEM 8 (BAS METB)on Anion gap [Moles/Vol] 9.0 mmol/L Normal [facility] Comment on above: Performed By: #### P T, DDIM #### [facility] [address] [address] [address] Arden Magallon Calcium [Mass/Vol] 9.6 mg/dL Normal 8.5-10.1 [facility] Comment on above: Performed By: #### P T, DDIM #### [facility] [address] [address] [address] Arden Magallon Chloride [Moles/Vol] 105 mmol/L Normal 98-107 [facility] Comment on above: Performed By: #### P T, DDIM #### [facility] [address] [place] [address] Dr. Adren Magallon CO2 [Moles/Vol] 29.1 mmol/L Normal 21.0-32.0 [facility] Comment on above: Performed By: #### P T, DDIM #### [facility] [address] [place] [address] Dr. Arden Magallon Creatinine [Mass/Vol] 1.00 mg/dL Normal 0.55-1.02 [facility] Comment on above: Performed By: #### P T, DDIM #### [facility] [address] [place] [address] Dr. Arden Magallon EGFR-AF NAURUAN >60 Normal >=60 [facility] Comment on above: Performed By: #### P T, DDIM #### [facility] [address] [place] [address] Dr. Arden Magallon EGFR-NON AF NAURUAN 53 mL/min/1.73m2 Critically low >=60 [facility] Comment on above: Performed By: #### P T, DDIM #### [facility] [address] [place] [address] Dr. Arden Magallon Glucose [Mass/Vol] 116 mg/dL Critically high 74-106 [facility] Comment on above: Performed By: #### P T, DDIM #### [facility] [address] [place] [address] Dr. Arden Magallon Potassium [Moles/Vol] 4.1 mmol/L Normal 3.5-5.1 [facility] Comment on above: Performed By: #### P T, DDIM #### [facility] [address] [place] [address] Dr. Arden Magallon Sodium [Moles/Vol] 139 mmol/L Normal 136-145 [facility] Comment on above: Performed By: #### P T, DDIM #### [facility] [address] [place] [address] Dr. Arden Magallon Urea nitrogen [Mass/Vol] 15.0 mg/dL Normal 7.0-18.0 [facility] Comment on above: Performed By: #### P T, DDIM #### [facility] [address] [place] [address] Dr. Arden Magallon Urea nitrogen/Creatinine [Mass ratio] 15.0 mg/mg Normal [facility] Comment on above: Performed By: #### P T, DDIM #### [facility] [address] [place] [address] Dr. Arden Magallon CBC AUTO DIFFon 08-30-2022 BASO # 0.2 103/ul Critically high 0.0-0.1 [facility] Comment on above: Performed By: #### B STAMP REDEMPTION CLERK, CMP #### [facility] [address] [place] [address] Dr. Arden Magallon Basophils/100 WBC (Bld) 2.7 % Critically high 0.2-2.0 [facility] Comment on above: Performed By: #### B STAMP REDEMPTION CLERK, CMP #### [facility] [address] [place] [address] Dr. Arden Magallon EO # 0.5 103/ul Normal 0.0-0.7 [facility] Comment on above: Performed By: #### B STAMP REDEMPTION CLERK, CMP #### [facility] [address] [place] [address] Dr. Arden Magallon Eosinophils/100 WBC (Bld) 6.7 % Normal 0.9-7.0 [facility] Comment on above: Performed By: #### B STAMP REDEMPTION CLERK, CMP #### [facility] [address] [place] [address] Dr. Arden Magallon Erythrocyte distribution width (RBC) [Ratio] 14.3 % Normal 11.0-15.0 [facility] Comment on above: Performed By: #### B STAMP REDEMPTION CLERK, CMP #### [facility] [address] [place] [address] Dr. Arden Magallon Hematocrit (Bld) [Volume fraction] 43.1 % Normal 36.0-48.0 [facility] Comment on above: Performed By: #### B STAMP REDEMPTION CLERK, CMP #### [facility] [address] [place] [address] Dr. Arden Magallon Hemoglobin (Bld) [Mass/Vol] 14.5 g/dL Normal 12.0-16.0 [facility] Comment on above: Performed By: #### B STAMP REDEMPTION CLERK, CMP #### [facility] [address] [place] [address] Dr. Arden Magallon IG # 0.02 10e3/ul Normal 0.00-0.03 [facility] Comment on above: Performed By: #### B STAMP REDEMPTION CLERK, CMP #### [facility] [address] [place] [address] Dr. Arden Magallon IG % 0.3 % Normal 0.0-0.5 [facility] Comment on above: Performed By: #### B STAMP REDEMPTION CLERK, CMP #### [facility] [address] [place] [address] Dr. Arden Magallon LYMPH # 3.1 103/ul Normal 1.2-3.8 [facility] Comment on above: Performed By: #### B STAMP REDEMPTION CLERK, CMP #### [facility] [address] [place] [address] Dr. Arden Magallon Lymphocytes/100 WBC (Bld) 41.0 % Normal 20.5-60.0 [facility] Comment on above: Performed By: #### B STAMP REDEMPTION CLERK, CMP #### [facility] [address] [place] [address] Dr. Arden Magallon MANUAL DIFF REQ NO Normal [facility] Comment on above: Performed By: #### B STAMP REDEMPTION CLERK, CMP #### [facility] [address] [place] [address] Dr. Arden Magallon MCH (RBC) [Entitic mass] 31.6 pg Normal 26.7-34.0 [facility] Comment on above: Performed By: #### B STAMP REDEMPTION CLERK, CMP #### [facility] [address] [place] [address] Dr. Arden Magallon MCHC (RBC) [Mass/Vol] 33.6 g/dL Normal 29.9-35.2 [facility] Comment on above: Performed By: #### B STAMP REDEMPTION CLERK, CMP #### [facility] [address] [place] [address] Dr. Arden Magallon MCV (RBC) [Entitic vol] 93.9 fL Normal 81.0-99.0 [facility] Comment on above: Performed By: #### B STAMP REDEMPTION CLERK, CMP #### [facility] [address] [place] [address] Dr. Arden Magallon MONO # 0.8 103/ul Normal 0.3-0.8 [facility] Comment on above: Performed By: #### B STAMP REDEMPTION CLERK, CMP #### [facility] [address] [place] [address] Dr. Arden Magallon Monocytes/100 WBC (Bld) 10.9 % Normal 1.7-12.0 [facility] Comment on above: Performed By: #### B STAMP REDEMPTION CLERK, CMP #### [facility] [address] [place] [address] Dr. Arden Magallon NEUT # 2.9 103/ul Normal 1.4-6.5 [facility] Comment on above: Performed By: #### B STAMP REDEMPTION CLERK, CMP #### [facility] [address] [place] [address] Dr. Arden Magallon Neutrophils/100 WBC (Bld) 38.4 % Critically low 43.0-75.0 [facility] Comment on above: Performed By: #### B STAMP REDEMPTION CLERK, CMP #### [facility] [address] [place] [address] Dr. Arden Magallon Platelet mean volume (Bld) [Entitic vol] 10.8 fL Normal 9.5-13.5 [facility] Comment on above: Performed By: #### B STAMP REDEMPTION CLERK, CMP #### [facility] [address] [place] [address] Dr. Arden Magallon PLT 165 103/ul Normal 150-450 [facility] Comment on above: Performed By: #### B STAMP REDEMPTION CLERK, CMP #### [facility] [address] [place] [address] Dr. Arden Magallon RBC 4.59 106/ul Normal 4.20-5.40 [facility] Comment on above: Performed By: #### B STAMP REDEMPTION CLERK, CMP #### [facility] [address] [place] [address] Dr. Arden Magallon WBC 7.5 103/ul Normal 4.0-11.0 [facility] Comment on above: Performed By: #### B STAMP REDEMPTION CLERK, CMP #### [facility] [address] [place] [address] Dr. Arden Magallon PROF 14(COMP METB)on 022 Albumin [Mass/Vol] 3.9 g/dL Normal 3.4-5.0 [facility] Comment on above: Performed By: #### P T, DDIM #### [facility] [address] [place] [address] Dr. Arden Magallon Albumin/Globulin [Mass ratio] 1.2 {ratio} [facility] Comment on above: Performed By: #### P T, DDIM #### [facility] [address] [place] [address] Dr. Arden Magallon ALP [Catalytic activity/Vol] 69 U/L Normal 46-116 [facility] Comment on above: Performed By: #### P T, DDIM #### [facility] [address] [place] [address] Dr. Arden Magallon ALT [Catalytic activity/Vol] 16 U/L Normal 14-59 [facility] Comment on above: Performed By: #### P T, DDIM #### [facility] [address] [place] [address] Dr. Arden Magallon Anion gap [Moles/Vol] 8.6 mmol/L Normal [facility] Comment on above: Performed By: #### P T, DDIM #### [facility] [address] [address] [address] Arden Magallon AST [Catalytic activity/Vol] 14 U/L Critically low 15-37 [facility] Comment on above: Performed By: #### P T, DDIM #### [facility] [address] [address] [address] Arden Magallon Bilirubin [Mass/Vol] 0.3 mg/dL Normal 0.2-1.0 [facility] Comment on above: Performed By: #### P T, DDIM #### [facility] [address] [address] [address] Arden Magallon Calcium [Mass/Vol] 9.5 mg/dL Normal 8.5-10.1 [facility] Comment on above: Performed By: #### P T, DDIM #### [facility] [address] [address] [address] Arden Magallon Chloride [Moles/Vol] 104 mmol/L Normal 98-107 [facility] Comment on above: Performed By: #### P T, DDIM #### [facility] [address] [address] [address] Arden Magallon CO2 [Moles/Vol] 29.2 mmol/L Normal 21.0-32.0 [facility] Comment on above: Performed By: #### P T, DDIM #### [facility] [address] [address] [address] Arden Magallon Creatinine [Mass/Vol] 1.25 mg/dL Critically high 0.55-1.02 [facility] Comment on above: Performed By: #### P T, DDIM #### [facility] [address] [address] [address] Arden Magallon EGFR-AF NAURUAN 49 mL/min/1.73m2 Critically low >=60 [facility] Comment on above: Performed By: #### P T, DDIM #### [facility] [address] [address] [address] Arden Magallon EGFR-NON AF NAURUAN 41 mL/min/1.73m2 Critically low >=60 [facility] Comment on above: Performed By: #### P T, DDIM #### [facility] [address] [place] [address] Dr. Arden Magallon Globulin (S) [Mass/Vol] 3.3 g/dL Normal [facility] Comment on above: Performed By: #### P T, DDIM #### [facility] [address] [place] [address] Dr. Arden Magallon Glucose [Mass/Vol] 119 mg/dL Critically high 74-106 [facility] Comment on above: Performed By: #### P T, DDIM #### [facility] [address] [place] [address] Dr. Arden Magallon Potassium [Moles/Vol] 3.8 mmol/L Normal 3.5-5.1 [facility] Comment on above: Performed By: #### P T, DDIM #### [facility] [address] [place] [address] Dr. Arden Magallon Protein [Mass/Vol] 7.2 g/dL Normal 6.4-8.2 [facility] Comment on above: Performed By: #### P T, DDIM #### [facility] [address] [place] [address] Dr. Arden Magallon Sodium [Moles/Vol] 138 mmol/L Normal 136-145 [facility] Comment on above: Performed By: #### P T, DDIM #### [facility] [address] [place] [address] Dr. Arden Magallon Urea nitrogen [Mass/Vol] 24.0 mg/dL Critically high 7.0-18.0 [facility] Comment on above: Performed By: #### P T, DDIM #### [facility] [address] [place] [address] Dr. Arden Magallon Urea nitrogen/Creatinine [Mass ratio] 19.2 mg/mg Normal [facility] Comment on above: Performed By: #### P T, DDIM #### [facility] [address] [place] [address] Dr. Arden Magallon BNPon 08-26-2022 Natriuretic peptide B (Bld) [Mass/Vol] 427.0 pg/mL Normal <=1,800.0 [facility] Comment on above: Performed By: #### P T, DDIM #### [facility] [address] [place] [address] Dr. Arden Magallon CARDIAC CINDY ADMITon 022 CK [Catalytic activity/Vol] 56 U/L Normal 26-192 [facility] Comment on above: Performed By: #### P T, DDIM #### [facility] [address] [address] [address] Arden Magallon CK.MB [Mass/Vol] 1.41 ng/mL Normal <=3.60 [facility] Comment on above: Performed By: #### P T, DDIM #### [facility] [address] [place] [address] Dr. Arden Magallon HSTROP 9.0 pg/mL Normal 4.0-51.3 [facility] Comment on above: Result Comment: CUT- OFF POINTS HAVE BEEN ESTABLISHED BASED ON THE FOURTH UNIVERSAL DEFINITIONS OF MYOCARDIAL INFARCTION. THE UPPER REFERENCE LIMIT (URL) OF TROPONIN, DEFINED THE 99TH PERCENTILE OF cTnI DISTRIBUTION IN A REFERENCE POPULATION, HAS BEEN CONFIRMED THE DECISION THRESHOLD FOR NC DIAGNOSIS. Performed By: #### P T, DDIM #### [facility] [address] [place] [address] Dr. Arden Magallon IKE 99 ng/mL Critically high 9-82 [facility] Comment on above: Performed By: #### P T, DDIM #### [facility] [address] [place] [address] Dr. Arden Magallon CBC AUTO DIFFon 08-26-2022 BASO # 0.2 103/ul Critically high 0.0-0.1 [facility] Comment on above: Performed By: #### C BC #### [facility] [address] [place] [address] Dr. Arden Magallon Basophils/100 WBC (Bld) 2.2 % Critically high 0.2-2.0 [facility] Comment on above: Performed By: #### C BC #### [facility] [address] [place] [address] Dr. Arden Magallon EO # 0.4 103/ul Normal 0.0-0.7 [facility] Comment on above: Performed By: #### C BC #### [facility] [address] [place] [address] Dr. Arden Magallon Eosinophils/100 WBC (Bld) 5.1 % Normal 0.9-7.0 [facility] Comment on above: Performed By: #### C BC #### [facility] [address] [place] [address] Dr. Arden Magallon Erythrocyte distribution width (RBC) [Ratio] 14.1 % Normal 11.0-15.0 [facility] Comment on above: Performed By: #### C BC #### [facility] [address] [place] [address] Dr. Arden Magallon Hematocrit (Bld) [Volume fraction] 41.2 % Normal 36.0-48.0 [facility] Comment on above: Performed By: #### C BC #### [facility] [address] [place] [address] Dr. Arden Magallon Hemoglobin (Bld) [Mass/Vol] 13.6 g/dL Normal 12.0-16.0 [facility] Comment on above: Performed By: #### C BC #### [facility] [address] [place] [address] Dr. Arden Magallon IG # 0.03 10e3/ul Normal 0.00-0.03 [facility] Comment on above: Performed By: #### C BC #### [facility] [address] [place] [address] Dr. Arden Magallon IG % 0.4 % Normal 0.0-0.5 [facility] Comment on above: Performed By: #### C BC #### [facility] [address] [place] [address] Dr. Arden Magallon LYMPH # 2.4 103/ul Normal 1.2-3.8 [facility] Comment on above: Performed By: #### C BC #### [facility] [address] [place] [address] Dr. Arden Magallon Lymphocytes/100 WBC (Bld) 30.1 % Normal 20.5-60.0 [facility] Comment on above: Performed By: #### C BC #### [facility] [address] [place] [address] Dr. Arden Magallon MANUAL DIFF REQ NO Normal [facility] Comment on above: Performed By: #### C BC #### [facility] [address] [place] [address] Dr. Arden Magallon MCH (RBC) [Entitic mass] 30.8 pg Normal 26.7-34.0 [facility] Comment on above: Performed By: #### C BC #### [facility] [address] [place] [address] Dr. Arden Magallon MCHC (RBC) [Mass/Vol] 33.0 g/dL Normal 29.9-35.2 [facility] Comment on above: Performed By: #### C BC #### [facility] [address] [place] [address] Dr. Arden Magallon MCV (RBC) [Entitic vol] 93.4 fL Normal 81.0-99.0 [facility] Comment on above: Performed By: #### C BC #### [facility] [address] [place] [address] Dr. Arden Magallon MONO # 0.8 103/ul Normal 0.3-0.8 [facility] Comment on above: Performed By: #### C BC #### [facility] [address] [place] [address] Dr. Arden Magallon Monocytes/100 WBC (Bld) 9.8 % Normal 1.7-12.0 [facility] Comment on above: Performed By: #### C BC #### [facility] [address] [place] [address] Dr. Arden Magallon NEUT # 4.2 103/ul Normal 1.4-6.5 [facility] Comment on above: Performed By: #### C BC #### [facility] [address] [place] [address] Dr. Arden Magallon Neutrophils/100 WBC (Bld) 52.4 % Normal 43.0-75.0 [facility] Comment on above: Performed By: #### C BC #### [facility] [address] [place] [address] Dr. Arden Magallon Platelet mean volume (Bld) [Entitic vol] 10.7 fL Normal 9.5-13.5 [facility] Comment on above: Performed By: #### C BC #### [facility] [address] [place] [address] Dr. Arden Magallon PLT 154 103/ul Normal 150-450 [facility] Comment on above: Performed By: #### C BC #### [facility] [address] [place] [address] Dr. Arden Magallon RBC 4.41 106/ul Normal 4.20-5.40 [facility] Comment on above: Performed By: #### C BC #### [facility] [address] [place] [address] Dr. Arden Magallon WBC 8.1 103/ul Normal 4.0-11.0 [facility] Comment on above: Performed By: #### C BC #### [facility] [address] [place] [address] Dr. Arden Magallon PROF 14(COMP METB)on 022 Albumin [Mass/Vol] 3.7 g/dL Normal 3.4-5.0 [facility] Comment on above: Performed By: #### P T, DDIM #### [facility] [address] [place] [address] Dr. Arden Magallon Albumin/Globulin [Mass ratio] 1.2 {ratio} Normal [facility] Comment on above: Performed By: #### P T, DDIM #### [facility] [address] [place] [address] Dr. Arden Magallon ALP [Catalytic activity/Vol] 57 U/L Normal 46-116 [facility] Comment on above: Performed By: #### P T, DDIM #### [facility] [address] [place] [address] Dr. Arden Magallon ALT [Catalytic activity/Vol] 17 U/L Normal 14-59 [facility] Comment on above: Performed By: #### P T, DDIM #### [facility] [address] [place] [address] Dr. Arden Magallon Anion gap [Moles/Vol] 9.1 mmol/L Normal [facility] Comment on above: Performed By: #### P T, DDIM #### [facility] [address] [place] [address] Dr. Arden Magallon AST [Catalytic activity/Vol] 12 U/L Critically low 15-37 [facility] Comment on above: Performed By: #### P T, DDIM #### [facility] [address] [place] [address] Dr. Arden Magallon Bilirubin [Mass/Vol] 0.6 mg/dL Normal 0.2-1.0 [facility] Comment on above: Performed By: #### P T, DDIM #### [facility] [address] [place] [address] Dr. Arden Magallon Calcium [Mass/Vol] 9.5 mg/dL Normal 8.5-10.1 [facility] Comment on above: Performed By: #### P T, DDIM #### [facility] [address] [place] [address] Dr. Arden Magallon Chloride [Moles/Vol] 105 mmol/L Normal 98-107 [facility] Comment on above: Performed By: #### P T, DDIM #### [facility] [address] [place] [address] Dr. Arden Magallon CO2 [Moles/Vol] 27.9 mmol/L Normal 21.0-32.0 [facility] Comment on above: Performed By: #### P T, DDIM #### [facility] [address] [place] [address] Dr. Arden Magallon Creatinine [Mass/Vol] 0.97 mg/dL Normal 0.55-1.02 [facility] Comment on above: Performed By: #### P T, DDIM #### [facility] [address] [address] [address] Arden Magallon EGFR-AF NAURUAN >60 Normal >=60 [facility] Comment on above: Performed By: #### P T, DDIM #### [facility] [address] [address] [address] Arden Magallon EGFR-NON AF NAURUAN 54 mL/min/1.73m2 Critically low >=60 [facility] Comment on above: Performed By: #### P T, DDIM #### [facility] [address] [address] [address] Arden Magallon Globulin (S) [Mass/Vol] 3.0 g/dL Normal [facility] Comment on above: Performed By: #### P T, DDIM #### [facility] [address] [address] [address] Arden Magallon Glucose [Mass/Vol] 105 mg/dL Normal 74-106 [facility] Comment on above: Performed By: #### P T, DDIM #### [facility] [address] [address] [address] Arden Magallon Potassium [Moles/Vol] 4.0 mmol/L Normal 3.5-5.1 [facility] Comment on above: Performed By: #### P T, DDIM #### [facility] [address] [address] [address] Adren Magallon Protein [Mass/Vol] 6.7 g/dL Normal 6.4-8.2 [facility] Comment on above: Performed By: #### P T, DDIM #### [facility] [address] [address] [address] Arden Magallon Sodium [Moles/Vol] 138 mmol/L Normal 136-145 [facility] Comment on above: Performed By: #### P T, DDIM #### [facility] [address] [address] [address] Arden Magallon Urea nitrogen [Mass/Vol] 18.0 mg/dL Normal 7.0-18.0 [facility] Comment on above: Performed By: #### P T, DDIM #### [facility] [address] [place] [address] Dr. Arden Magallon Urea nitrogen/Creatinine [Mass ratio] 18.6 mg/mg Normal [facility] Comment on above: Performed By: #### P T, DDIM #### [facility] [address] [place] [address] Dr. Arden Magallon PROTIMEon 08-26-2022 INR Coag (PPP) [Relative time] 1.49 {INR} Normal [facility] Comment on above: Performed By: #### B STAMP REDEMPTION CLERK, CMP #### [facility] [address] [place] [address] Dr. Arden Magallon INR GUIDELINES SEE BELOW Normal [facility] Comment on above: Result Comment: THANH RED INR: 2.0 - 3.0 CONDITIONS NOT LISTED BELOW 2.5 - 3.5 FOR PROSTHETIC HEART VALVE REPLACEMENT 2.5 - 3.5 RECURRENT THROMBOSIS Performed By: #### B STAMP REDEMPTION CLERK, CMP #### [facility] [address] [place] [address] Dr. Arden Magallon PT Coag (PPP) [Time] 15.7 s Critically high 9.0-11.6 [facility] Comment on above: Performed By: #### B STAMP REDEMPTION CLERK, CMP #### [facility] [address] [place] [address] Dr. Arden Magallon PTTon 08-26-2022 aPTT Coag (Bld) [Time] 30.2 s Normal 22.3-36.2 [facility] Comment on above: Performed By: #### B STAMP REDEMPTION CLERK, CMP #### [facility] [address] [place] [address] Dr. Arden Magallon TROPONIN, HIGH SENSITIVITYon 08-26-2022 HSTROP 8.3 pg/mL Normal 4.0-51.3 [facility] Comment on above: Result Comment: CUT- OFF POINTS HAVE BEEN ESTABLISHED BASED ON THE FOURTH UNIVERSAL DEFINITIONS OF MYOCARDIAL INFARCTION. THE UPPER REFERENCE LIMIT (URL) OF TROPONIN, DEFINED THE 99TH PERCENTILE OF cTnI DISTRIBUTION IN A REFERENCE POPULATION, HAS BEEN CONFIRMED THE DECISION THRESHOLD FOR NC DIAGNOSIS. Performed By: #### B MP #### [facility] [address] [address] [address] Arden Magallon XR CHEST 1 Von 08-26-2022 XR CHEST 1 V EXAM: XR CHEST 1 V a t 1147 hours HISTORY: CHEST PAIN, UNSPECIFIED COMPARISON: [...] M[place]O [place] Date: 2022-08-26 12:29 Normal [facility] BNPon 08-17-2022 Natriuretic peptide B (Bld) [Mass/Vol] 414.0 pg/mL Normal <=1,800.0 [facility] Comment on above: Performed By: #### B MP #### [facility] [address] [address] [address] Arden Magallon CBC AUTO DIFFon 08-17-2022 BASO # 0.2 103/ul Critically high 0.0-0.1 [facility] Comment on above: Performed By: #### B MP #### [facility] [address] [address] [address] Arden Magallon Basophils/100 WBC (Bld) 2.8 % Critically high 0.2-2.0 [facility] Comment on above: Performed By: #### B MP #### [facility] [address] [address] [address] Arden Magallon EO # 0.5 103/ul Normal 0.0-0.7 [facility] Comment on above: Performed By: #### B MP #### [facility] [address] [address] [address] Arden Magallon Eosinophils/100 WBC (Bld) 7.2 % Critically high 0.9-7.0 [facility] Comment on above: Performed By: #### B MP #### [facility] [address] [place] [address] Dr. Arden Magallon Erythrocyte distribution width (RBC) [Ratio] 14.1 % Normal 11.0-15.0 [facility] Comment on above: Performed By: #### B MP #### [facility] [address] [place] [address] Dr. Arden Magallon Hematocrit (Bld) [Volume fraction] 41.2 % Normal 36.0-48.0 [facility] Comment on above: Performed By: #### B MP #### [facility] [address] [place] [address] Dr. Arden Magallon Hemoglobin (Bld) [Mass/Vol] 13.5 g/dL Normal 12.0-16.0 [facility] Comment on above: Performed By: #### B MP #### [facility] [address] [place] [address] Dr. Arden Magallon IG # 0.01 10e3/ul Normal 0.00-0.03 [facility] Comment on above: Performed By: #### B MP #### [facility] [address] [place] [address] Dr. Arden Magallon IG % 0.1 % Normal 0.0-0.5 [facility] Comment on above: Performed By: #### B MP #### [facility] [address] [place] [address] Dr. Arden Magallon LYMPH # 2.7 103/ul Normal 1.2-3.8 [facility] Comment on above: Performed By: #### B MP #### [facility] [address] [place] [address] Dr. Arden Magallon Lymphocytes/100 WBC (Bld) 37.7 % Normal 20.5-60.0 [facility] Comment on above: Performed By: #### B MP #### [facility] [address] [place] [address] Dr. Arden Magallon MANUAL DIFF REQ NO Normal [facility] Comment on above: Performed By: #### B MP #### [facility] [address] [place] [address] Dr. Arden Magallon MCH (RBC) [Entitic mass] 31.2 pg Normal 26.7-34.0 [facility] Comment on above: Performed By: #### B MP #### [facility] [address] [place] [address] Dr. Arden Magallon MCHC (RBC) [Mass/Vol] 32.8 g/dL Normal 29.9-35.2 [facility] Comment on above: Performed By: #### B MP #### [facility] [address] [place] [address] Dr. Arden Magallon MCV (RBC) [Entitic vol] 95.2 fL Normal 81.0-99.0 [facility] Comment on above: Performed By: #### B MP #### [facility] [address] [place] [address] Dr. Arden Magallon MONO # 0.6 103/ul Normal 0.3-0.8 [facility] Comment on above: Performed By: #### B MP #### [facility] [address] [place] [address] Dr. Arden Magallon Monocytes/100 WBC (Bld) 8.2 % Normal 1.7-12.0 [facility] Comment on above: Performed By: #### B MP #### [facility] [address] [place] [address] Dr. Arden Magallon NEUT # 3.1 103/ul Normal 1.4-6.5 [facility] Comment on above: Performed By: #### B MP #### [facility] [address] [place] [address] Dr. Arden Magallon Neutrophils/100 WBC (Bld) 44.0 % Normal 43.0-75.0 [facility] Comment on above: Performed By: #### B MP #### [facility] [address] [place] [address] Dr. Arden Magallon Platelet mean volume (Bld) [Entitic vol] 11.5 fL Normal 9.5-13.5 [facility] Comment on above: Performed By: #### B MP #### [facility] [address] [place] [address] Dr. Arden Magallon PLT 160 103/ul Normal 150-450 [facility] Comment on above: Performed By: #### B MP #### [facility] [address] [place] [address] Dr. Arden Magallon RBC 4.33 106/ul Normal 4.20-5.40 [facility] Comment on above: Performed By: #### B MP #### [facility] [address] [place] [address] Dr. Arden Magallon WBC 7.1 103/ul Normal 4.0-11.0 [facility] Comment on above: Performed By: #### B MP #### [facility] [address] [place] [address] Dr. Arden Magallon D-DIMERon 08-17-2022 D-DIMER 0.36 mg/L FEU Normal <=0.59 [facility] Comment on above: Performed By: #### P T, DDIM #### [facility] [address] [place] [address] Dr. Arden Magallon D-DIMER COMMENTS SEE BELOW Normal [facility] Comment on above: Result Comment: Incr eases [...] Performed By: #### P T, DDIM #### [facility] [address] [place] [address] Dr. Arden Magallon PROF 14(COMP METB)on 022 Albumin [Mass/Vol] 3.7 g/dL Normal 3.4-5.0 [facility] Comment on above: Performed By: #### C BC #### [facility] [address] [place] [address] Dr. Arden Magallon Albumin/Globulin [Mass ratio] 1.1 {ratio} Normal [facility] Comment on above: Performed By: #### C BC #### [facility] [address] [place] [address] Dr. Arden Magallon ALP [Catalytic activity/Vol] 65 U/L Normal 46-116 [facility] Comment on above: Performed By: #### C BC #### [facility] [address] [place] [address] Dr. Arden Magallon ALT [Catalytic activity/Vol] 15 U/L Normal 14-59 [facility] Comment on above: Performed By: #### C BC #### [facility] [address] [place] [address] Dr. Arden Magallon Anion gap [Moles/Vol] 6.1 mmol/L Normal [facility] Comment on above: Performed By: #### C BC #### [facility] [address] [place] [address] Dr. Arden Magallon AST [Catalytic activity/Vol] 11 U/L Critically low 15-37 [facility] Comment on above: Performed By: #### C BC #### [facility] [address] [place] [address] Dr. Arden Magallon Bilirubin [Mass/Vol] 0.4 mg/dL Normal 0.2-1.0 [facility] Comment on above: Performed By: #### C BC #### [facility] [address] [place] [address] Dr. Arden Magallon Calcium [Mass/Vol] 9.6 mg/dL Normal 8.5-10.1 [facility] Comment on above: Performed By: #### C BC #### [facility] [address] [place] [address] Dr. Arden Magallon Chloride [Moles/Vol] 106 mmol/L Normal 98-107 [facility] Comment on above: Performed By: #### C BC #### [facility] [address] [place] [address] Dr. Arden Magallon CO2 [Moles/Vol] 29.5 mmol/L Normal 21.0-32.0 [facility] Comment on above: Performed By: #### C BC #### [facility] [address] [address] [address] Arden Magallon Creatinine [Mass/Vol] 1.02 mg/dL Normal 0.55-1.02 [facility] Comment on above: Performed By: #### C BC #### [facility] [address] [address] [address] Arden Magallon EGFR-AF NAURUAN >60 Normal >=60 [facility] Comment on above: Performed By: #### C BC #### [facility] [address] [address] [address] Arden Magallon EGFR-NON AF NAURUAN 51 mL/min/1.73m2 Critically low >=60 [facility] Comment on above: Performed By: #### C BC #### [facility] [address] [address] [address] Arden Magallon Globulin (S) [Mass/Vol] 3.3 g/dL Normal [facility] Comment on above: Performed By: #### C BC #### [facility] [address] [address] [address] Arden Magallon Glucose [Mass/Vol] 143 mg/dL Critically high 74-[address] [facility] Comment on above: Performed By: #### C BC #### [facility] [address] [address] [address] Arden Magallon Potassium [Moles/Vol] 3.6 mmol/L Normal 3.5-5.1 [facility] Comment on above: Performed By: #### C BC #### [facility] [address] [address] [address] Arden Magallon Protein [Mass/Vol] 7.0 g/dL Normal 6.4-8.2 [facility] Comment on above: Performed By: #### C BC #### [facility] [address] [address] [address] Arden Magallon Sodium [Moles/Vol] 138 mmol/L Normal 136-145 [facility] Comment on above: Performed By: #### C BC #### [facility] [address] [place] [address] Dr. Arden Magallon Urea nitrogen [Mass/Vol] 21.0 mg/dL Critically high 7.0-18.0 [facility] Comment on above: Performed By: #### C BC #### [facility] [address] [place] [address] Dr. Arden Magallon Urea nitrogen/Creatinine [Mass ratio] 20.6 mg/mg Normal [facility] Comment on above: Performed By: #### C BC #### [facility] [address] [place] [address] Dr. Arden Magallon PROTIMEon 08-17-2022 INR Coag (PPP) [Relative time] 1.27 {INR} Normal [facility] Comment on above: Performed By: #### P T, DDIM #### [facility] [address] [place] [address] Dr. Arden Magallon INR GUIDELINES SEE BELOW Normal [facility] Comment on above: Result Comment: THANH RED INR: 2.0 - 3.0 CONDITIONS NOT LISTED BELOW 2.5 - 3.5 FOR PROSTHETIC HEART VALVE REPLACEMENT 2.5 - 3.5 RECURRENT THROMBOSIS Performed By: #### P T, DDIM #### [facility] [address] [place] [address] Dr. Arden Magallon PT Coag (PPP) [Time] 13.5 s Critically high 9.0-11.6 [facility] Comment on above: Performed By: #### P T, DDIM #### [facility] [address] [place] [address] Dr. Arden Magallon TROPONIN, HIGH SENSITIVITYon 08-17-2022 HSTROP 8.3 pg/mL Normal 4.0-51.3 [facility] Comment on above: Result Comment: CUT- OFF POINTS HAVE BEEN ESTABLISHED BASED ON THE FOURTH UNIVERSAL DEFINITIONS OF MYOCARDIAL INFARCTION. THE UPPER REFERENCE LIMIT (URL) OF TROPONIN, DEFINED THE 99TH PERCENTILE OF cTnI DISTRIBUTION IN A REFERENCE POPULATION, HAS BEEN CONFIRMED THE DECISION THRESHOLD FOR NC DIAGNOSIS. Performed By: #### B MP #### [facility] [address] [place] [address] Dr. Arden Magallon XR CHEST 1 Von 08-17-2022 XR CHEST 1 V EXAMINATION: XR CHES T 1 V HISTORY: CHEST PAIN, UNSPECIFIED , [...] compared to 04/15/2022; chronic scarring versus recurrent infiltrate/atelectasis . Electronically authenticated by: HARJINDER RAMIREZ Date: 2022-08-17 13:57 Normal [facility] URINE PROFILEon 2 Bilirubin Ql (U) Negative Normal NEGATIVE [facility] Comment on above: Performed By: #### P T, DDIM #### [facility] [address] [place] [address] Dr. Arden Magallon Clarity (U) CLEAR Normal CLEAR [facility] Comment on above: Performed By: #### P T, DDIM #### [facility] [address] [place] [address] Dr. Arden Magallon Color (U) LT. YELLOW Normal YELLOW [facility] Comment on above: Performed By: #### P T, DDIM #### [facility] [address] [place] [address] Dr. Arden STROUD A micrscopic examination will be performed if indicated. Normal [facility] Comment on above: Performed By: #### P T, DDIM #### [facility] [address] [place] [address] Dr. Arden Magallon Glucose Ql (U) Negative Normal NEGATIVE [facility] Comment on above: Performed By: #### P T, DDIM #### [facility] [address] [place] [address] Dr. Arden Magallon Hemoglobin Ql (U) SMALL Abnormal NEGATIVE [facility] Comment on above: Performed By: #### P T, DDIM #### [facility] [address] [place] [address] Dr. Arden Magallon Ketones Ql (U) Negative Normal NEGATIVE [facility] Comment on above: Performed By: #### P T, DDIM #### [facility] [address] [place] [address] Dr. Arden Magallon LEUKOCYTES TRACE Abnormal NEGATIVE [facility] Comment on above: Performed By: #### P T, DDIM #### [facility] [address] [place] [address] Dr. Arden Magallon Nitrite Ql (U) Negative Normal NEGATIVE [facility] Comment on above: Performed By: #### P T, DDIM #### [facility] [address] [place] [address] Dr. Arden Magallon pH (U) 7.0 [pH] Normal 5-9 [facility] Comment on above: Performed By: #### P T, DDIM #### [facility] [address] [place] [address] Dr. Arden Magallon SPEC GRAVITY 1.010 Normal 1.005-<=1.02 5 [facility] Comment on above: Performed By: #### P T, DDIM #### [facility] [address] [place] [address] Dr. Arden Magallon UA PROTEIN Negative Normal NEGATIVE/ TRACE [facility] Comment on above: Performed By: #### P T, DDIM #### [facility] [address] [place] [address] Dr. Arden Magallon UR MICRO IND INDICATED Normal [facility] Comment on above: Performed By: #### P T, DDIM #### [facility] [address] [place] [address] Dr. Arden Magallon Urobilinogen Qn (U) 0.2 {Myranda'U}/dL Normal 0.2 - 1. 0 [facility] Comment on above: Performed By: #### P T, DDIM #### [facility] [address] [place] [address] Dr. Arden Magallon URINE MICROSCOPIC ONLYon BACTERIA NONE SEEN Normal NONE SEEN [facility] Comment on above: Performed By: #### P T, DDIM #### [facility] [address] [place] [address] Dr. Arden Magallon Bacteria identified Cx Nom (U) NOT INDICATED Normal [facility] Comment on above: Performed By: #### P T, DDIM #### [facility] [address] [place] [address] Dr. Arden Magallon CAST NONE SEEN Normal NONE SEEN [facility] Comment on above: Performed By: #### P T, DDIM #### [facility] [address] [place] [address] Dr. Arden Magallon Crystals LM Nom (Urine sed) NONE SEEN Normal NONE SEEN [facility] Comment on above: Performed By: #### P T, DDIM #### [facility] [address] [place] [address] Dr. Arden Magallon Epithelial cells LM Ql (Urine sed) RARE Normal NONE SEEN /RARE [facility] Comment on above: Performed By: #### P T, DDIM #### [facility] [address] [place] [address] Dr. Arden Magallon MUCOUS NONE SEEN Normal NONE SEEN [facility] Comment on above: Performed By: #### P T, DDIM #### [facility] [address] [place] [address] Dr. Arden Magallon RBC 0-2 Normal 0-2 [facility] Comment on above: Performed By: #### P T, DDIM #### [facility] [address] [place] [address] Dr. Arden Magallon WBC 0-2 Abnormal NONE SEEN [facility] Comment on above: Performed By: #### P T, DDIM #### [facility] [address] [place] [address] Dr. Arden Magallon XR CHEST 1 Von 04-16-2022 XR CHEST 1 V EXAMINATION: XR CHES T 1 V, , 04/15/2022 9:16 PM EDT [...] PANCHO ELY Date: 2022-04-15 22:19 Normal [facility] BNPon 04-15-2022 Natriuretic peptide B (Bld) [Mass/Vol] 318.0 pg/mL Normal <=1,800.0 [facility] Comment on above: Performed By: #### B STAMP REDEMPTION CLERK, CMP #### [facility] [address] [place] [address] Dr. Arden Magallon CBC AUTO DIFFon 04-15-2022 BASO # 0.2 103/ul Critically high 0.0-0.1 [facility] Comment on above: Performed By: #### P T, DDIM #### [facility] [address] [place] [address] Dr. Arden Magallon Basophils/100 WBC (Bld) 2.2 % Critically high 0.2-2.0 [facility] Comment on above: Performed By: #### P T, DDIM #### [facility] [address] [place] [address] Dr. Arden Magallon EO # 0.5 103/ul Normal 0.0-0.7 [facility] Comment on above: Performed By: #### P T, DDIM #### [facility] [address] [place] [address] Dr. Arden Magallon Eosinophils/100 WBC (Bld) 6.2 % Normal 0.9-7.0 [facility] Comment on above: Performed By: #### P T, DDIM #### [facility] [address] [place] [address] Dr. Arden Magallon Erythrocyte distribution width (RBC) [Ratio] 14.0 % Normal 11.0-15.0 [facility] Comment on above: Performed By: #### P T, DDIM #### [facility] [address] [place] [address] Dr. Arden Magallon Hematocrit (Bld) [Volume fraction] 41.6 % Normal 36.0-48.0 [facility] Comment on above: Performed By: #### P T, DDIM #### [facility] [address] [place] [address] Dr. Arden Magallon Hemoglobin (Bld) [Mass/Vol] 13.8 g/dL Normal 12.0-16.0 [facility] Comment on above: Performed By: #### P T, DDIM #### [facility] [address] [place] [address] Dr. Arden Magallon IG # 0.01 10e3/ul Normal 0.00-0.03 [facility] Comment on above: Performed By: #### P T, DDIM #### [facility] [address] [place] [address] Dr. Arden Magallon IG % 0.1 % Normal 0.0-0.5 [facility] Comment on above: Performed By: #### P T, DDIM #### [facility] [address] [place] [address] Dr. Arden Magallon LYMPH # 3.2 103/ul Normal 1.2-3.8 [facility] Comment on above: Performed By: #### P T, DDIM #### [facility] [address] [place] [address] Dr. Arden Magallon Lymphocytes/100 WBC (Bld) 37.2 % Normal 20.5-60.0 [facility] Comment on above: Performed By: #### P T, DDIM #### [facility] [address] [place] [address] Dr. Arden Magallon MANUAL DIFF REQ NO Normal [facility] Comment on above: Performed By: #### P T, DDIM #### [facility] [address] [place] [address] Dr. Arden Magallon MCH (RBC) [Entitic mass] 31.0 pg Normal 26.7-34.0 [facility] Comment on above: Performed By: #### P T, DDIM #### [facility] [address] [place] [address] Dr. Arden Magallon MCHC (RBC) [Mass/Vol] 33.2 g/dL Normal 29.9-35.2 [facility] Comment on above: Performed By: #### P T, DDIM #### [facility] [address] [place] [address] Dr. Arden Magallon MCV (RBC) [Entitic vol] 93.5 fL Normal 81.0-99.0 [facility] Comment on above: Performed By: #### P T, DDIM #### [facility] [address] [place] [address] Dr. Arden Magallon MONO # 0.8 103/ul Normal 0.3-0.8 [facility] Comment on above: Performed By: #### P T, DDIM #### [facility] [address] [place] [address] Dr. Arden Magallon Monocytes/100 WBC (Bld) 9.4 % Normal 1.7-12.0 [facility] Comment on above: Performed By: #### P T, DDIM #### [facility] [address] [place] [address] Dr. Arden Magallon NEUT # 3.9 103/ul Normal 1.4-6.5 [facility] Comment on above: Performed By: #### P T, DDIM #### [facility] [address] [place] [address] Dr. Arden Magallon Neutrophils/100 WBC (Bld) 44.9 % Normal 43.0-75.0 [facility] Comment on above: Performed By: #### P T, DDIM #### [facility] [address] [place] [address] Dr. Arden Magallon Platelet mean volume (Bld) [Entitic vol] 10.7 fL Normal 9.5-13.5 [facility] Comment on above: Performed By: #### P T, DDIM #### [facility] [address] [place] [address] Dr. Arden Magallon PLT 158 103/ul Normal 150-450 [facility] Comment on above: Performed By: #### P T, DDIM #### [facility] [address] [place] [address] Dr. Arden Magallon RBC 4.45 106/ul Normal 4.20-5.40 [facility] Comment on above: Performed By: #### P T, DDIM #### [facility] [address] [place] [address] Dr. Arden Magallon WBC 8.7 103/ul Normal 4.0-11.0 [facility] Comment on above: Performed By: #### P T, DDIM #### [facility] [address] [place] [address] Dr. Arden Magallon PROF 14(COMP METB)on 022 Albumin [Mass/Vol] 4.2 g/dL Normal 3.4-5.0 [facility] Comment on above: Performed By: #### B STAMP REDEMPTION CLERK, CMP #### [facility] [address] [place] [address] Dr. Arden Magallon Albumin/Globulin [Mass ratio] 1.2 {ratio} Normal [facility] Comment on above: Performed By: #### B STAMP REDEMPTION CLERK, CMP #### [facility] [address] [place] [address] Dr. Arden Magallon ALP [Catalytic activity/Vol] 75 U/L Normal 46-116 [facility] Comment on above: Performed By: #### B STAMP REDEMPTION CLERK, CMP #### [facility] [address] [place] [address] Dr. Arden Magallon ALT [Catalytic activity/Vol] 31 U/L Normal 14-59 [facility] Comment on above: Performed By: #### B STAMP REDEMPTION CLERK, CMP #### [facility] [address] [place] [address] Dr. Arden Magallon Anion gap [Moles/Vol] 11.6 mmol/L Normal [facility] Comment on above: Performed By: #### B STAMP REDEMPTION CLERK, CMP #### [facility] [address] [address] [address] Arden Magallon AST [Catalytic activity/Vol] 16 U/L Normal 15-37 [facility] Comment on above: Performed By: #### B STAMP REDEMPTION CLERK, CMP #### [facility] [address] [address] [address] Arden Magallon Bilirubin [Mass/Vol] 0.4 mg/dL Normal 0.2-1.0 [facility] Comment on above: Performed By: #### B STAMP REDEMPTION CLERK, CMP #### [facility] [address] [place] [address] Dr. Arden Magallon Calcium [Mass/Vol] 9.7 mg/dL Normal 8.5-10.1 [facility] Comment on above: Performed By: #### B STAMP REDEMPTION CLERK, CMP #### [facility] [address] [place] [address] Dr. Arden Magallon Chloride [Moles/Vol] 106 mmol/L Normal 98-107 [facility] Comment on above: Performed By: #### B STAMP REDEMPTION CLERK, CMP #### [facility] [address] [place] [address] Dr. Arden Magallon CO2 [Moles/Vol] 25.2 mmol/L Normal 21.0-32.0 [facility] Comment on above: Performed By: #### B STAMP REDEMPTION CLERK, CMP #### [facility] [address] [place] [address] Dr. Arden Magallon Creatinine [Mass/Vol] 1.06 mg/dL Critically high 0.55-1.02 [facility] Comment on above: Performed By: #### B STAMP REDEMPTION CLERK, CMP #### [facility] [address] [place] [address] Dr. Arden Magallon EGFR-AF NAURUAN 60 mL/min/1.73m2 Normal >=60 [facility] Comment on above: Performed By: #### B STAMP REDEMPTION CLERK, CMP #### [facility] [address] [place] [address] Dr. Arden Magallon EGFR-NON AF NAURUAN 49 mL/min/1.73m2 Critically low >=60 [facility] Comment on above: Performed By: #### B STAMP REDEMPTION CLERK, CMP #### [facility] [address] [address] [address] Arden Magallon Globulin (S) [Mass/Vol] 3.4 g/dL Normal [facility] Comment on above: Performed By: #### B STAMP REDEMPTION CLERK, CMP #### [facility] [address] [address] [address] Arden Magallon Glucose [Mass/Vol] 123 mg/dL Critically high 74-106 [facility] Comment on above: Performed By: #### B STAMP REDEMPTION CLERK, CMP #### [facility] [address] [place] [address] Dr. Arden Magallon Potassium [Moles/Vol] 3.8 mmol/L Normal 3.5-5.1 [facility] Comment on above: Performed By: #### B STAMP REDEMPTION CLERK, CMP #### [facility] [address] [place] [address] Dr. Arden Magallon Protein [Mass/Vol] 7.6 g/dL Normal 6.4-8.2 [facility] Comment on above: Performed By: #### B STAMP REDEMPTION CLERK, CMP #### [facility] [address] [place] [address] Dr. Arden Magallon Sodium [Moles/Vol] 139 mmol/L Normal 136-145 [facility] Comment on above: Performed By: #### B STAMP REDEMPTION CLERK, CMP #### [facility] [address] [place] [address] Dr. Arden Magallon Urea nitrogen [Mass/Vol] 22.0 mg/dL Critically high 7.0-18.0 [facility] Comment on above: Performed By: #### B STAMP REDEMPTION CLERK, CMP #### [facility] [address] [place] [address] Dr. Arden Magallon Urea nitrogen/Creatinine [Mass ratio] 20.8 mg/mg Normal [facility] Comment on above: Performed By: #### B STAMP REDEMPTION CLERK, CMP #### [facility] [address] [place] [address] Dr. Arden Magallon ECHOCARDIO M/2D COMPLETEon 0 04-06-2022 ECHOCARDIO M/2D COMPLETE Patient: LUKAS EFRAINDaisha Julio Exam Date: 04/06/2022 : 1935 Gender:F Ordering : HERMELINDA HUGO Admission #: [id number] Family : Order #: [id number] CLICK HERE TO VIEW EXAM ECHOCARDIOGRAM REPORT [...] Area(A4C): 16.40 cm2 Left Atrium Systolic Volume(A2C): 63304 mm3 Left Atrium Systolic Volume(A4C): 11144 mm3 Mitral Valve MV E to A Ratio: 0.[address] [place]: 2080 mm/s2 Mitral Valve A-Wave Peak Velocity: 103.00 cm/s Mitral Valve E-Wave Peak Velocity: 62.20 cm/s Right Ventricle RV Internal Diastolic Dimension: 3.04 cm Aorta AO Root Diam: 2.90 cm Aortic Valve AoV Area (Peak Bucky): 1.[address] [place]: 1080 mm/s2 Pressure Half-Time: 976 ms Peak [...] Alin Lisa M.D. on 04/06/2022 at 16:27 [facility] US KIDNEYSon 04-06-2022 US KIDNEYS EXAMINATION: US KIDNEYS, [...] BERTHA SOLIZ Date: 2022-04-06 16:45 Normal [facility] BNPon 03-17-2022 Natriuretic peptide B (Bld) [Mass/Vol] 193.0 pg/mL Normal <=1,800.0 [facility] Comment on above: Performed By: #### B STAMP REDEMPTION CLERK, CMP #### [facility] [address] [place] [address] Dr. Arden Magallon CBC AUTO DIFFon 03-17-2022 BASO # 0.1 103/ul Normal 0.0-0.1 [facility] Comment on above: Performed By: #### B STAMP REDEMPTION CLERK, CMP #### [facility] [address] [place] [address] Dr. Arden Magallon Basophils/100 WBC (Bld) 0.9 % Normal 0.2-2.0 [facility] Comment on above: Performed By: #### B STAMP REDEMPTION CLERK, CMP #### [facility] [address] [place] [address] Dr. Arden Magallon EO # 0.4 103/ul Normal 0.0-0.7 [facility] Comment on above: Performed By: #### B STAMP REDEMPTION CLERK, CMP #### [facility] [address] [place] [address] Dr. Arden Magallon Eosinophils/100 WBC (Bld) 4.7 % Normal 0.9-7.0 [facility] Comment on above: Performed By: #### B STAMP REDEMPTION CLERK, CMP #### [facility] [address] [place] [address] Dr. Arden Magallon Erythrocyte distribution width (RBC) [Ratio] 14.2 % Normal 11.0-15.0 [facility] Comment on above: Performed By: #### B STAMP REDEMPTION CLERK, CMP #### [facility] [address] [place] [address] Dr. Arden Magallon Hematocrit (Bld) [Volume fraction] 43.1 % Normal 36.0-48.0 [facility] Comment on above: Performed By: #### B STAMP REDEMPTION CLERK, CMP #### [facility] [address] [place] [address] Dr. Arden Magallon Hemoglobin (Bld) [Mass/Vol] 14.1 g/dL Normal 12.0-16.0 [facility] Comment on above: Performed By: #### B STAMP REDEMPTION CLERK, CMP #### [facility] [address] [place] [address] Dr. Arden Magallon IG # 0.04 10e3/ul Critically high 0.00-0.03 [facility] Comment on above: Performed By: #### B STAMP REDEMPTION CLERK, CMP #### [facility] [address] [place] [address] Dr. Arden Magallon IG % 0.5 % Normal 0.0-0.5 [facility] Comment on above: Performed By: #### B STAMP REDEMPTION CLERK, CMP #### [facility] [address] [place] [address] Dr. Arden Magallon LYMPH # 3.0 103/ul Normal 1.2-3.8 [facility] Comment on above: Performed By: #### B STAMP REDEMPTION CLERK, CMP #### [facility] [address] [place] [address] Dr. Arden Magallon Lymphocytes/100 WBC (Bld) 34.2 % Normal 20.5-60.0 [facility] Comment on above: Performed By: #### B STAMP REDEMPTION CLERK, CMP #### [facility] [address] [place] [address] Dr. Arden Magallon MANUAL DIFF REQ NO Normal [facility] Comment on above: Performed By: #### B STAMP REDEMPTION CLERK, CMP #### [facility] [address] [place] [address] Dr. Arden Magallon MCH (RBC) [Entitic mass] 31.3 pg Normal 26.7-34.0 [facility] Comment on above: Performed By: #### B STAMP REDEMPTION CLERK, CMP #### [facility] [address] [place] [address] Dr. Arden Magallon MCHC (RBC) [Mass/Vol] 32.7 g/dL Normal 29.9-35.2 [facility] Comment on above: Performed By: #### B STAMP REDEMPTION CLERK, CMP #### [facility] [address] [place] [address] Dr. Arden Magallon MCV (RBC) [Entitic vol] 95.8 fL Normal 81.0-99.0 [facility] Comment on above: Performed By: #### B STAMP REDEMPTION CLERK, CMP #### [facility] [address] [place] [address] Dr. Arden Magallon MONO # 1.2 103/ul Critically high 0.3-0.8 [facility] Comment on above: Performed By: #### B STAMP REDEMPTION CLERK, CMP #### [facility] [address] [place] [address] Dr. Arden Magallon Monocytes/100 WBC (Bld) 13.5 % Critically high 1.7-12.0 [facility] Comment on above: Performed By: #### B STAMP REDEMPTION CLERK, CMP #### [facility] [address] [place] [address] Dr. Arden Magallon NEUT # 4.1 103/ul Normal 1.4-6.5 [facility] Comment on above: Performed By: #### B STAMP REDEMPTION CLERK, CMP #### [facility] [address] [place] [address] Dr. Arden Magallon Neutrophils/100 WBC (Bld) 46.2 % Normal 43.0-75.0 [facility] Comment on above: Performed By: #### B STAMP REDEMPTION CLERK, CMP #### [facility] [address] [place] [address] Dr. Arden Magallon Platelet mean volume (Bld) [Entitic vol] 11.2 fL Normal 9.5-13.5 [facility] Comment on above: Performed By: #### B STAMP REDEMPTION CLERK, CMP #### [facility] [address] [place] [address] Dr. Arden Magallon PLT 160 103/ul Normal 150-450 [facility] Comment on above: Performed By: #### B STAMP REDEMPTION CLERK, CMP #### [facility] [address] [place] [address] Dr. Arden Magallon RBC 4.50 106/ul Normal 4.20-5.40 [facility] Comment on above: Performed By: #### B STAMP REDEMPTION CLERK, CMP #### [facility] [address] [place] [address] Dr. Arden Magallon WBC 8.9 103/ul Normal 4.0-11.0 [facility] Comment on above: Performed By: #### B STAMP REDEMPTION CLERK, CMP #### [facility] [address] [place] [address] Dr. Arden Magallon PROF 14(COMP METB)on 022 Albumin [Mass/Vol] 4.0 g/dL Normal 3.4-5.0 [facility] Comment on above: Performed By: #### B STAMP REDEMPTION CLERK, CMP #### [facility] [address] [place] [address] Dr. Arden Magallon Albumin/Globulin [Mass ratio] 1.2 {ratio} Normal [facility] Comment on above: Performed By: #### B STAMP REDEMPTION CLERK, CMP #### [facility] [address] [place] [address] Dr. Arden Magallon ALP [Catalytic activity/Vol] 74 U/L Normal 46-116 [facility] Comment on above: Performed By: #### B STAMP REDEMPTION CLERK, CMP #### [facility] [address] [place] [address] Dr. Arden Magallon ALT [Catalytic activity/Vol] 28 U/L Normal 14-59 [facility] Comment on above: Performed By: #### B STAMP REDEMPTION CLERK, CMP #### [facility] [address] [place] [address] Dr. Arden Magallon Anion gap [Moles/Vol] 11.9 mmol/L Normal [facility] Comment on above: Performed By: #### B STAMP REDEMPTION CLERK, CMP #### [facility] [address] [place] [address] Dr. Arden Magallon AST [Catalytic activity/Vol] 18 U/L Normal 15-37 [facility] Comment on above: Performed By: #### B STAMP REDEMPTION CLERK, CMP #### [facility] [address] [place] [address] Dr. Arden Magallon Bilirubin [Mass/Vol] 0.4 mg/dL Normal 0.2-1.0 [facility] Comment on above: Performed By: #### B STAMP REDEMPTION CLERK, CMP #### [facility] [address] [address] [address] Arden Magallon Calcium [Mass/Vol] 9.7 mg/dL Normal 8.5-10.1 [facility] Comment on above: Performed By: #### B STAMP REDEMPTION CLERK, CMP #### [facility] [address] [address] [address] Arden Magallon Chloride [Moles/Vol] 105 mmol/L Normal 98-107 [facility] Comment on above: Performed By: #### B STAMP REDEMPTION CLERK, CMP #### [facility] [address] [address] [address] Arden Magallon CO2 [Moles/Vol] 26.3 mmol/L Normal 21.0-32.0 [facility] Comment on above: Performed By: #### B STAMP REDEMPTION CLERK, CMP #### [facility] [address] [address] [address] Arden Magallon Creatinine [Mass/Vol] 1.31 mg/dL Critically high 0.55-1.02 [facility] Comment on above: Performed By: #### B STAMP REDEMPTION CLERK, CMP #### [facility] [address] [address] [address] Arden Magallon EGFR-AF NAURUAN 47 mL/min/1.73m2 Critically low >=60 [facility] Comment on above: Performed By: #### B STAMP REDEMPTION CLERK, CMP #### [facility] [address] [address] [address] Arden Magallon EGFR-NON AF NAURUAN 38 mL/min/1.73m2 Critically low >=60 [facility] Comment on above: Performed By: #### B STAMP REDEMPTION CLERK, CMP #### [facility] [address] [address] [address] Arden Magallon Globulin (S) [Mass/Vol] 3.3 g/dL Normal [facility] Comment on above: Performed By: #### B STAMP REDEMPTION CLERK, CMP #### [facility] [address] [address] [address] Arden Magallon Glucose [Mass/Vol] 111 mg/dL Critically high 74-106 [facility] Comment on above: Performed By: #### B STAMP REDEMPTION CLERK, CMP #### [facility] [address] [address] [address] Arden Magallon Potassium [Moles/Vol] 4.2 mmol/L Normal 3.5-5.1 [facility] Comment on above: Performed By: #### B STAMP REDEMPTION CLERK, CMP #### [facility] [address] [address] [address] Arden Magallon Protein [Mass/Vol] 7.3 g/dL Normal 6.4-8.2 [facility] Comment on above: Performed By: #### B STAMP REDEMPTION CLERK, CMP #### [facility] [address] [address] [address] Arden Magallon Sodium [Moles/Vol] 139 mmol/L Normal 136-145 [facility] Comment on above: Performed By: #### B STAMP REDEMPTION CLERK, CMP #### [facility] [address] [address] [address] Arden Magallon Urea nitrogen [Mass/Vol] 24.0 mg/dL Critically high 7.0-18.0 [facility] Comment on above: Performed By: #### B STAMP REDEMPTION CLERK, CMP #### [facility] [address] [place] [address] Dr. Arden Magallon Urea nitrogen/Creatinine [Mass ratio] 18.3 mg/mg Normal [facility] Comment on above: Performed By: #### B STAMP REDEMPTION CLERK, CMP #### [facility] [address] [place] [address] Dr. Arden Magallon TROPONIN, HIGH SENSITIVITYon 03-17-2022 HSTROP 8.6 pg/mL Normal 4.0-51.3 [facility] Comment on above: Result Comment: CUT- OFF POINTS HAVE BEEN ESTABLISHED BASED ON THE FOURTH UNIVERSAL DEFINITIONS OF MYOCARDIAL INFARCTION. THE UPPER REFERENCE LIMIT (URL) OF TROPONIN, DEFINED THE 99TH PERCENTILE OF cTnI DISTRIBUTION IN A REFERENCE POPULATION, HAS BEEN CONFIRMED THE DECISION THRESHOLD FOR NC DIAGNOSIS. Performed By: #### C BC #### [facility] [address] [place] [address] Dr. Arden Magallon Coding Summary.on 03-04-2022 Coding Summary. CD:[id number] Gh 0bWw+PGhlYWQ+NY3QVTDhR 03wcQRqxT0BA5oVOK7IXAK HMMNJPQ5IQQ9zbBM7PQutF 2VybiAv WarzxOOaZA04RJy7HRW8iQ lgPMlltH1woJNlG4f1LcOl XV83wV28QEslLKCjIvV0Gz ZpbjsgbWFy J6gmKvFevUNgYda+PHRhYm xlIHdpZHRoPScxMDAlJyBz fQxjLU8qCa6xSQJoCCZbbI xhcHNlOiBj k6gyXCYqNQpgYQ7ynKuxA3 LggKM7SWKqj5u8Td40nQC+ WNRdUIC8kUnuXMpuj357Pt Ocp7sbKEU1 sKDkVTyeGBN4A78jr3K0ON LlCHZtSAE3fTE5oM8dcWum mbxoX2TzhXNiEeQ5VYI8pZ TcdZ1udZgq edwzsV6pLei+X74KLP0DMZ OSFC9HQui7S1CkBnoqvEV+ ZB39IQUrYU98uAKtfRIru1 dlpZy3ObRl AJLrQWV7bDyxXRzft4WzYX JbV21mpCGdl8E3TKKnrDpd kPQsLlYjaHN2jZ6iHLiokq xhd1xemmsv Qioew6euzw53mN09O28fHY qyOZXdVCE8QQWiGZXtcHgp uq9jbR4fZb0+CLvvf7ool5 hveNq7NvBf YFUvieKvzDilHIX3g7JiCs 76D1YxdAgzh2FbEoe9ko61 mWCav5P2xPN0XDthMXWfpD 0yKJdlNgB3 AYAxLcQhmC99dWJnNYbtOc 9tfGpsxXvwUI2eCUIpskks OTXczG3gATNkpXEvoWsaBA 4wNTBpbjtm y702CfNzHJJ2VNFesHAhJ4 OorO7sLhDbMZAxJIFzS4Iv hQBsLWtdR550XAcbQkB5IV BjbfVtP1Mv IPUvhDrcLeV9x3F4Gb3Pd8 OstbemULM6ATdiEPW2FdM8 MkMvDbB5A1FqGzb4SWCieU oxFD8vF3Rr OSVklblgaudyqKC1OENiCU AkkT55jBWuRFgfYn6sx8R9 u729SXUkTOMjnP10Nw4aqS ogMTBwdCBU mY3gyrsjy4cvrbomYcTcUI KpMEj4ENt3LVWlfYspFaAh IKY7AqH9LFZ4wDHkcQ6kzN zpugdzhS8x Oyc+L75ctE7qLEZ6VHJ2wq irBOSvvuTnDN24LB65K2Pz PjwvdGFibGU+PGRpdiBzdH nfBK8wYfZl n6ywa6IgAKtzM9ExZEDmRV vpMdh4NOSmDON3cKE9kH5u TIJrZRolt5J9sOF1O6Obob Obgm5sq7fa VWRfPDlfS40gyTRkg1U2CH NyvLS2VWKzqLcqBjIhuE35 Oyc+DMTflChik7YgJidrz1 zsh2aunPy6 UbDwZCEfjqQrnGilHNG4a8 PsXr75Q70kBSleTKZfTWNe ATHoGYXpfZvwgt9jvH6jDd 8+PGNvbCB3 lGV4zQ5iHBVgKmV3MPouL8 80LxZmvJCkMgzng7rys6lq cGk8HiHeJFRtbrJceTraLP V0g0IzEi02 X85mFHmsDQLbPBEbBWHcRF BxqRojfm2iyY9gEv4+PC9j q2wocl86bS77yRH+PHRkIH L0eMdbIHfq MTMlaF5pWYmgDfW5OTZgEa QgjO11oVAoGMjiOp3eeZkf tThqBS6wPWJnbthac093Tm Tam2tyRNZy yMUtIZfnCWA3W21lh0W5GX KjYMOsSMS9sCD4pE8anKap bjogbGVmdDsgdmVydGljYW nmPXxlF276 IHRvcDsnPlBhdGllbnQgTm CvZTj7P1OjLfk5GWQdiDnu KJ0kfHOpZWudMg4hwGyedM nsFN1rQDJq zxtrp082GjXfi6xlVOKtlY GoPHwpIJC4G11rh9H8KSXn LTYkWOU7zVS6iM6zzYbxyq ogbGVmdDsg ziQtvBnsLBuyQGpwP820KN RvcDsnPkJpcnRoIERhdGU6 ZH40SS62kGEfl1K0nKY2J4 BhZGRpbmct feqdgTZ7VRGeZNAucZ13Md 6wqIdhDt6wDZVcDKZ8TYMu fHMkK4HxaV1lYqViHILjBD ZbX6QnfNJi ESieU216IPzvSjQ3FPGfed QiL2RuEXTceJyjWwT0z7Z5 Qe0GS1O8CW68DF94cFWsr5 Y4yQF1M6Pb ESPeegsdalejiDR8EVMxMQ UthF93Nn7hhUysAa4cYUHw AIH2RVUehHAiC8EaqH4dYt AjMDAwMDAw Q9VerKNqLAvsQ912CPbaWa B4XZWvfpBcQ7UeNSLigFho RzP9t5U9Aq1YOMg8XU35BG 66vCRmi7G5 rOO0B3WfWEXitqdujswyrE J5LILkHVMasW44Am0ilMun Mk0pSFBxQJE8XXOijRHsU4 VpxT7vNiUa QQXvYTYfX4WwcEAgHPiyC5 11ROpeJaA4CKVlskZhV5Sc YYUmtCqyIaU9r9E5Ox4FJZ WtTH34QZA8 gHO7OH10FR87K2DpRmyuuH FibGU+PHRhYmxlIHdpZHRo TNrqDDVrLrGppFstIF7cHz 9yZGVyLWNv jGjxpXSoScVcr1ldIKMdFK tnAW4ymGdjP5MjfIO7OFXm w5f8Jy33V03mF7OcgFZ+PG HyqYO2gRJ0 qF4lIcYpRqX5USczU859Xo GyaGHtIkjmx5smq7mkcPv5 YcS7PXSlujNqqEtmFUY9q4 SqQz01H97w IHdpZHRoPSIxNSUiIHZhbG bjum2rgX0oOk6+PGNvbCB3 aVT6nV5jGcFqLuV8LNfyY2 49InRvcCIv Pibon5ozn9vlxSe0GmSoSD KilyAnfRzwVLE5i4NwSz15 Y9NsmWztb1FdMtp6ht26hI Rbx1X5fBY3 A9CiZQXxdjwjdFJyuUoiPD 0eEYQcqsygPAIehJ3jCZTp Z9j0UlVeZbZ9JKptC3Sinv X1MMDoeDLt UWrgNDT9W26ec0C6QYMcDS FxVKG5eBW2rH4npAyapnkx bGVmdDsgdmVydGljYWwtYW kxV791UKKt zYiiLNNpkB4vGXYbjJZeaD fcRF5oXEXesxxoLuJAMJGq LCBERUxFRTwvdGQ+PHRkIH I4lJugWZyv HSDujK5lVRHdP2t0ZcCoMr S3WVdjL8UjFTBvwmalUx43 aT6ePeUtApM9LKirQ3Vvpu Q0XFDdySNs WHxeQFL7M91ic3T6JYKaLB UfHJH2mJP6nA4tqBqlgqxp bGVmdDsgdmVydGljYWwtYW xsA176WCAy lKbyPgJqVnC3VaI4YrC7T2 VyMov5OOWtiNhkET1crTGx HUzlIz1acAepeJbkVD5iAP BpbjtwYWRk rM2oMFQtnDScyTjzJI7xXM Emfcwkv158SgXeDYF6WLQu vTTsN4VvoP2eDjDxJRJiZL GbH0RtjRKk EBauI134VLdoSgY2LNMqab ZjB0HtILAleQchRaB3n7K7 Sh38OsZOERAgikbhcKX+PH LiWBM4mGde TWdfGYSdsY3uPTXmU1w1Sp JxUlB3GDicR5UsKZEtacyi Ei61uM5jIgFqHhL9MBtuA4 VxfuW7TPDv tFZhIWilZJN5R38ku8M1TU JyREPsEPP5bPZ5pV9glJmf bjogbGVmdDsgdmVydGljYW loKAqyW251 IHRvcDsnPkZlbWFsZTwvdG Q+MWFoJQR7zSitJWmdJQYj tQ5cNRGjM4v5RjWvDlT2US waP9PeEZDa fpmcAx53zU4rMjBeMwD5WJ syW2BznsA6MFRebWQuYFvi KTA7A29up3V4NORfNKQvRR N6hEL9wA5g bGlnbjogbGVmdDsgdmVydG dfRGebKMmmZ867XYMbnWhx AvUiERChVY3grZebgWH+PC 08qv51Q4Mz JlsiVin9VMZuFIY8wSQ0mS 1hOEDfFRvus3V0rRU0S2Lg chWfvl2sz3yuXMNxYYnhX6 7orPDqp5T3 PPOdvRJ0FUOmyFpwUeIsdX 93Oyc+QSIezVidl4DgMroz m1nvc0qsqSj0NtSxYBQaaa FsaWduPSJ0 u2JeTs87Z07rFFbfNGEoDN PjYTTzMCUhpXxlwq2rcW0v Ii8+YWJxmFW5xGZ5wW0qFt CbRiM4QKnt A781SqLztSVwDehse0bpy7 djcYb4AgNzTWFwhoCszRoq TXT5w9ZjHy40F8AjiSean1 HmGnt0gi40 vSLal8W4jLI0J1JpTIGdyn igrALfmRdsIG2sOLDrjvtu YZGgvU0oRJIjZ3s1DjDxEb G0KWgaP7Yz lsT7TOCsjBJfQREniMUCkF 0ehlgrf9ivgszmLwLdCCYt FHc2SJr0WSAzvTjjObAgCJ I3UiI2EIU3 hFDnaM1pwKaupwtbgY7lTu c+YRh7m2kfeEWpSR2qbIY6 AU91YK65iQPzc5O0uLS6C4 BhZGRpbmct boeihIQ8VFRrRUXqhQ07Qd 7efSyxNv2cNAYtPMG2WXBr bQBwR8KpaY6iFuCtSVGvDV BuL1CysXSa DXdoL618OShqGgW4MKDmgg AhY7RwZNJzkVspFsB8l4J3 Dy7RPK02UM92VH59aQOdq4 R2tUU1L1Ja WTTqmaqlgiulmMH4ERYjYE ZnpV25Ug3jcLgpRk7zUUIp FXW5CBUzyYRpL5OijG3kNo AjMDAwMDAw P4JhtTVrZMuhE431HIsmZd N0ZXOsodMhV6QpMHJnoJdb XeJ8q2H3Gp8DFr16BD64KZ 23qCWeq6L6 aRY9T5HwKGQxahxwcxccaX O3KPLnWIVkuC70Xz7wrHuk Gz5aMSZsDTP4VWLelGClI7 HhaK3eNvBq TABdWZXoH8JqzWZkVItnN1 12ZOwwDwB4EDPqtoLeA8Yq VZJygCkwCaB9p0M7Va4IRE zidkc3M0Lk PjwvdHI+MO51NCCsTE94kZ XsyNUhu6qguCr1DeJyEUUy PEE7kPniOHppu3PvNSAqN5 5buHOmg1R8 IGNv (more content not included)... Normal [facility] Auto Diffon 02-24-2022 Basophils/100 WBC (Bld) 4.4 % High 0.0-2.0 [facility] Comment on above: Order Comment: Order Added by Discern Expert. Performed By: #### 1 [id number], 3150914, 65052604, 9902502, [id number] #### [facility] [address] [place] [address] Basophils/Leukocytes Auto (Bld) [Pure # fraction] 0.3 E9/L High 0.0-0.2 [facility] Comment on above: Order Comment: Order Added by Discern Expert. Performed By: #### 1 [id number], 0088820, 87051992, 7356955, 3807276 #### [facility] [address] [place] [address] Eosinophils/100 WBC (Bld) 3.8 % Normal 0.0-8.0 [facility] Comment on above: Order Comment: Order Added by Discern Expert. Performed By: #### 1 [id number], 4991639, 58666195, 0641027, 9366564 #### [facility] [address] [place] [address] Eosinophils/Leukocyte s Auto (Bld) [Pure # fraction] 0.3 E9/L Normal 0.0-0.5 [facility] Comment on above: Order Comment: Order Added by Discern Expert. Performed By: #### 1 8892262, 0670480, 71242396, 3380114, 3054270 #### [facility] [address] [place] [address] Lymphocytes/100 WBC (Bld) 31.3 % Normal 14.0-50.0 [facility] Comment on above: Order Comment: Order Added by Andrew Expert. Performed By: #### 1 9321154, 4032633, 41404075, 8581572, 7373808 #### [facility] [address] [place] [address] Lymphocytes/Leukocyte s Auto (Bld) [Pure # fraction] 2.3 E9/L Normal 1.0-4.0 [facility] Comment on above: Order Comment: Order Added by Discern Expert. Performed By: #### 1 [id number], 0526629, 95658086, 4883699, 3768175 #### [facility] [address] [place] [address] Monocytes/100 WBC (Bld) 12.8 % Normal 4.0-14.0 [facility] Comment on above: Order Comment: Order Added by Andrew Expert. Performed By: #### 1 1642043, 2595806, 87159261, 2474063, 8559615 #### [facility] [address] [place] [address] Monocytes/Leukocytes Auto (Bld) [Pure # fraction] 0.9 E9/L Normal 0.2-1.0 [facility] Comment on above: Order Comment: Order Added by Andrew Expert. Performed By: #### 1 0761638, 8944448, 80515667, 4332078, 4461070 #### [facility] [address] [place] [address] Neutrophils/100 WBC (Bld) 47.7 % Normal 36.0-75.0 [facility] Comment on above: Order Comment: Order Added by Andrew Expert. Performed By: #### 1 3518231, 7804803, 56473570, 5211435, 1367068 #### [facility] [address] [place] [address] Neutrophils/Leukocyte s Auto (Bld) [Pure # fraction] 3.5 E9/L Normal 2.0-7.5 [facility] Comment on above: Order Comment: Order Added by Andrew Expert. Performed By: #### 1 2415157, 3986312, 85139165, 8991794, 1452643 #### [facility] [address] [place] [address] BMPon 02-24-2022 Creatinine [Mass/Vol] 0.9 mg/dL Normal 0.5-1.3 [facility] Comment on above: Performed By: #### 1 4586793, 1224657, 11137551, 5146815, 5449316 #### [facility] [address] [place] [address] Urea nitrogen [Mass/Vol] 20 mg/dL Normal 5-21 [facility] Comment on above: Performed By: #### 1 2852907, 1041244, 16368998, 4114037, 1251222 #### [facility] [address] [place] [address] Urea nitrogen/Creatinine [Mass ratio] 22 No Units High 10-20 [facility] Comment on above: Performed By: #### 1 9778777, 0847723, 69723273, 6716508, 3624474 #### [facility] [address] [place] [address] Anion gap [Moles/Vol] 13 mmol/L Normal 6-16 [facility] Comment on above: Performed By: #### 1 2931391, 8494829, 21138992, 6655192, 4848859 #### [facility] [address] [place] [address] Calcium [Mass/Vol] 9.9 mg/dL Normal 8.9-11.1 [facility] Comment on above: Performed By: #### 1 2677199, 3257143, 78354390, 8481321, 1699312 #### [facility] [address] [place] [address] Chloride [Moles/Vol] 104 mmol/L Normal 101-111 [facility] Comment on above: Performed By: #### 1 1932499, 4161329, 56752105, 7619035, 0148719 #### [facility] [address] [place] [address] CO2 [Moles/Vol] 24 mmol/L Normal 21-31 [facility] Comment on above: Performed By: #### 1 0264644, 6063675, 97182480, 3313964, 4663694 #### [facility] [address] [place] [address] Glucose [Mass/Vol] 136 mg/dL Normal 55-199 [facility] Comment on above: Result Comment: If t his glucose result represents a fasting glucose, interpretation should refer to the following reference range: 55-99 mg/dL Performed By: #### 1 9385915, 2656578, 04914246, 5656993, 9211048 #### [facility] [address] [place] [address] Potassium [Moles/Vol] 3.7 mmol/L Normal 3.5-5.3 [facility] Comment on above: Performed By: #### 1 6756756, 3806735, 65711914, 5252368, 8193960 #### [facility] [address] [place] [address] Sodium [Moles/Vol] 137 mmol/L Normal 135-145 [facility] Comment on above: Performed By: #### 1 9173376, 5392508, 88555691, 2756824, 1549011 #### [facility] [address] [place] [address] CBC w/ Auto Diffon Erythrocyte distribution width (RBC) [Ratio] 15.3 % High 10.9-14.2 [facility] Comment on above: Performed By: #### 1 7847808, 1196252, 37435801, 4988747, 4435873 #### [facility] [address] [place] [address] Hematocrit (Bld) [Volume fraction] 43.0 % Normal 34.0-46.0 [facility] Comment on above: Performed By: #### 1 2541191, 6488543, 22569666, 1377527, 1635747 #### [facility] [address] [place] [address] Hemoglobin (Bld) [Mass/Vol] 14.4 g/dL Normal 12.0-16.0 [facility] Comment on above: Performed By: #### 1 5950030, 0529215, 09144563, 9181693, 3451859 #### [facility] [address] [place] [address] MCH (RBC) [Entitic mass] 31.0 pg Normal 27.0-34.0 [facility] Comment on above: Performed By: #### 1 0488457, 7465332, 51360716, 9282056, 9442400 #### [facility] [address] [place] [address] MCHC (RBC) [Mass/Vol] 33.6 g/dL Normal 31.4-36.0 [facility] Comment on above: Performed By: #### 1 2733083, 2337229, 29961357, 3705186, 2747705 #### [facility] [address] [place] [address] MCV (RBC) [Entitic vol] 92.2 fL Normal 80.0-100.0 [facility] Comment on above: Performed By: #### 1 4148038, 3239577, 90118518, 5439071, 6702377 #### [facility] [address] [place] [address] Platelet mean volume (Bld) [Entitic vol] 9.2 fL Normal 6.4-10.8 [facility] Comment on above: Performed By: #### 1 3072623, 5085400, 14531334, 2686782, 2477953 #### [facility] [address] [place] [address] Platelets (Bld) [#/Vol] 137.0 E9/L Low 150.0-500.0 [facility] Comment on above: Performed By: #### 1 5248570, 6325899, 30646924, 6707744, 4400922 #### [facility] [address] [place] [address] RBC (Bld) [#/Vol] 4.7 E12/L Normal 4.3-5.9 [facility] Comment on above: Performed By: #### 1 0513625, 3832140, 43055746, 0182470, 0110890 #### [facility] [address] [place] [address] WBC corrected for nucl RBC Auto (Bld) [#/Vol] 7.3 E9/L Normal 4.0-11.0 [facility] Comment on above: Performed By: #### 1 2620160, 3289715, 23045870, 2334591, 2810081 #### [facility] [address] [place] [address] CHEMISTRYOrdered By: [employer] on 02-24-2022 Anion gap [Moles/Vol] 13 mmol/L Normal 6 - 16 mEq/L F [facility] Remisol Calcium [Mass/Vol] 9.9 mg/dL Normal 8.9 [...] 25.4 s Normal 25.1 - 36.5 second(s) [facility] Auto Coag INR Coag (PPP) [Relative time] 1.1 {INR} Invalid Interpretation Code [facility] Auto Coag PT Coag (PPP) [Time] 13.4 s High 10.2 - 12.9 second(s) [facility] Auto Coag CT Head or Brain w/o [...] MD Transcribed by: KHANH Technologist: EMELINA Normal [facility] Consent for Treatmenton 02-06 Consent for Treatment [id number] 0CD:[id number] Normal [facility] Discharge Instructionson Discharge Instructions [id number]:[id number] Normal [facility] ED Clinical Summaryon 2021 ED Clinical Summary [address] [address] ED Clinical Summary Person Information Name: LUKAS, [facility] Age: 86 Years : 1935 Sex: Female Language: Equ[place] PCP: AMELIA FREY MD Marital Status: Single [...] 02/24/2022 10:32:06 02/24/2022 10:32:06 02/24/2022 10:32:06 ADDRESS: [address] [place] [id number] PHYS DOC NOTES: MEDICAL INFORMATION: Prescriptions Given: PATIENT EDUCATION INFORMATION: Instructions: Hypertension, Adult Follow up: With: Address: When: AMELIA FREY [address] [place] [address] [facility] (1) In 3 days 02/27/2022 Comments: Increase Losartan to 100 mg a day. Continue Metoprolol 50 mg a day. Make sure to take your blood pressure twice a day and follow-up with Dr. Frey tomorrow at 1 PM at her office. Return to the emergency room if your headache recurs, chest pain, dizziness or any new symptoms. DIAGNOSIS: 1:Accelerated hypertension Normal [facility] ED Note-Physicianon 02-25-20 ED Note-Physician Basic Information Time Seen: Norma Palacios, Demond Collins 02/24/2022 08:14 Chief Complaint Pt had surgery [...] reported headache. Her blood pressure at the [facility] office was 289/106. In the emergency room [...] AMELIA FREY In 3 days 02/27/2022 EDT [facility] [place] [address]- Business (1) Additional Instructions: Increase [...] (02/24/22 0 (more content not included)... Normal [facility] Comment on above: Result Comment: Elec [...] ? Avoi (more content not included)... Normal [facility] ED Patient Summaryon 022 ED Patient Summary [place] [address] Patient Discharge Instructions Person Information Name: ZORAIDA BARRIOS Age: 86 Years Arrival Date: 02/24/2022 08:11:05 Discharge Diagnosis: 1:Accelerated hypertension Primary Care Physician: AMELIA FREY MD Provider Information Primary Provider: Demond Green M.D. Advanced Huc Ob:None The exam and treatment you received in the Emergency Department were for an urgent problem and are not intended as complete care. It is important that you follow up with a doctor, nurse practitioner, or physician?s residential living assistant for ongoing care. If your symptoms [...] Follow-up Instructions: With: Address: When: AMELIA FREY [address] [place], [place] [id number] [employer] (1) In 3 days 02/27/2022 Comments: Increase [...] opioids can be used to help relieve hjmwpeuc-lb-tuhrsk pain and are often prescribed following a [...] guidance from the Food and Drug Administration (www.fda.gov/Drugs/Res ourcesForYou). ? Visit (more content not included)... Normal [facility] HEMATOLOGYOrdered By: SYSTEM SYSTEM on 02-24-2022 Basophils/100 WBC (Bld) 4.4 % High 0.0 - 2.0 % [facility] Basophils/Leukocytes Auto (Bld) [Pure # fraction] 0.3 E9/L High 0.0 - 0.2 E9/L [facility] Eosinophils/100 WBC (Bld) 3.8 % Normal 0.0 - 8.0 % [facility] Eosinophils/Leukocyte s Auto (Bld) [Pure # fraction] 0.3 E9/L Normal 0.0 - 0.5 E9/L [facility] Lymphocytes/100 WBC (Bld) 31.3 % Normal 14.0 - 50.0 % [facility] Lymphocytes/Leukocyte s Auto (Bld) [Pure # fraction] 2.3 E9/L Normal 1.0 - 4.0 E9/L [facility] Monocytes/100 WBC (Bld) 12.8 % Normal 4.0 - 14.0 % [facility] Monocytes/Leukocytes Auto (Bld) [Pure # fraction] 0.9 E9/L Normal 0.2 - 1.0 E9/L [facility] Neutrophils/100 WBC (Bld) 47.7 % Normal 36.0 - 75.0 % [facility] Neutrophils/Leukocyte s Auto (Bld) [Pure # fraction] 3.5 E9/L [...] [Relative time] 1.1 {INR} Invalid Interpretation Code [facility] Comment on above: Result Comment: INR results are specifically intended to assess patients stabilized on long-term Anticoagulation therapy suggested INR?s ?Less Intensive Anticoagulation? 2.0 ? 3.0 Conventional Range 3.0 ? 4.5 Performed By: #### 1 [id number], 9021997, 44221148, 0971978, 1776130 #### [facility] [address] [place] [address] PT Coag (PPP) [Time] 13.4 second(s) High 10.2-12.9 [facility] Comment on above: Performed By: #### 1 [id number], 8393020, 17118854, 1659421, 1679070 #### [facility] [address] [place] [address] aPTT Coag (PPP) [Time] 25.4 second(s) Normal 25.1-36.5 [facility] Comment on above: Result Comment: Hepa rin therapeutic range (represented by Anti-Factor Xa activity of 0.2 - 0.4 U/mL) corresponds to PTT of 56.6 - 109.0 sec. Performed By: #### 1 8375341, 4409428, 74771501, 6476106, 9659144 #### [facility] [address] [place] [address] Troponin 0 Hr.on 02-24-2022 Troponin I.cardiac [Mass/Vol] 8.10 pg/mL Low 10.10-27.10 [facility] Comment on above: Result Comment: The 95% CI (Confidence Interval) PPV (Positive Predictive Value) for myocardial infarction in females is 38 pg/mL, in males 51 pg/mL. The results should be used in conjunction with clinical conditions of myocardial infarction. (Access High Sensitivity Troponin I Instructions For Use, Gwendolyn [place], May 2018) Performed By: #### 1 [id number], 7789863, 93524466, 5012051, 5965063 #### [facility] [address] [place] [address] XR Chest Single Viewon 02-24 XR Chest [...] am EDT, Trevon Tyler M.D., DISAGREE Normal [facility] Vital Signs Date Time Vital Sign Value Performing Clinician Facility 07-09-2024 14:24-0400 Body height 157.48 cm [facility] 07-09-2024 14:24-0400 Body mass index (BMI) [Ratio] 24.3 kg/m2 [facility] 07-09-2024 14:24-0400 Body weight 60.46 kg [facility] 07-09-2024 14:24-0400 Diastolic blood pressure 98 mm[Hg] [facility] 07-09-2024 14:24-0400 Heart rate 57 /min [facility] 07-09-2024 14:24-0400 Systolic blood pressure 212 mm[Hg] [facility] 05-07-2024 13:44-0400 Body height 157.48 cm [facility] 05-07-2024 13:44-0400 Body mass index (BMI) [Ratio] 23.8 kg/m2 [facility] 05-07-2024 13:44-0400 Body weight 58.96 kg [facility] 05-07-2024 13:44-0400 Diastolic blood pressure 69 mm[Hg] [facility] 05-07-2024 13:44-0400 Heart rate 61 /min [facility] 05-07-2024 13:44-0400 Systolic blood pressure 189 mm[Hg] [facility] 01-08-2024 11:43-0400 Body height 157.48 cm [facility] 01-08-2024 11:43-0400 Body mass index (BMI) [Ratio] 22.8 kg/m2 [facility] 01-08-2024 11:43-0400 Body weight 56.84 kg [facility] 01-08-2024 11:43-0400 Diastolic blood pressure 72 mm[Hg] [facility] 01-08-2024 11:43-0400 Heart rate 61 /min [facility] 01-08-2024 11:43-0400 Systolic blood pressure 179 mm[Hg] [facility] 06-08-2023 14:30-0400 Body height 157.48 cm Amelia Frey Other [facility] [employer] Other 06-08-2023 14:30-0400 Body mass index (BMI) [Ratio] 23.13 kg/m2 Amelia Frey Other [employer] [facility] [employer] Other 06-08-2023 14:30-0400 Body weight 57.38 kg Amelia Frey Other [employer] [facility] [employer] Other 06-08-2023 14:30-0400 Diastolic blood pressure 77 mm[Hg] Amelia Frey Other [employer] [facility] [employer] Other 06-08-2023 14:30-0400 Respiratory rate 16 /min Amelia Frey Other [employer] Other 06-08-2023 14:30-0400 Systolic blood pressure 187 mm[Hg] Amelia Frey Other [employer] Other 12-20-2022 15:20-0400 Body height 157.48 cm Rox Watson Other [employer] Other 12-20-2022 15:20-0400 Body mass index (BMI) [Ratio] 23.08 kg/m2 Rox Watson Other [employer] Other 12-20-2022 15:20-0400 Body temperature 97 [degF] Rox Watson Other [employer] Other 12-20-2022 15:20-0400 Body weight 57.24 kg Rox Watson Other [employer] Other 12-20-2022 15:20-0400 Diastolic blood pressure 85 mm[Hg] Rox Watson Other [employer] Other 12-20-2022 15:20-0400 Respiratory rate 16 /min Rox Watson Other [employer] Other 12-20-2022 15:20-0400 SaO2% (BldA) [Mass fraction] 100 % Rox Watson Other [employer] Other 12-20-2022 15:20-0400 Systolic blood pressure 170 mm[Hg] Rox Watson Other [employer] Other 02-24-2022 10:12-0400 Diastolic blood pressure 80 mm[Hg] [facility] 02-24-2022 10:12-0400 Heart rate 68 /min [facility] 02-24-2022 10:12-0400 Respiratory rate 15 /min [facility] 02-24-2022 10:12-0400 SaO2% (BldA) [Mass fraction] 98 % [facility] 02-24-2022 10:12-0400 Systolic blood pressure 190 mm[Hg] [facility] 02-24-2022 09:24-0400 Diastolic blood pressure 88 mm[Hg] [facility] 02-24-2022 09:24-0400 Heart rate 66 /min [facility] 02-24-2022 09:24-0400 Respiratory rate 16 /min [facility] 02-24-2022 09:24-0400 SaO2% (BldA) [Mass fraction] 99 % [facility] 02-24-2022 09:24-0400 Systolic blood pressure 190 mm[Hg] [facility] 02-24-2022 08:50-0400 Diastolic blood pressure 100 mm[Hg] [facility] 02-24-2022 08:50-0400 Systolic blood pressure 220 mm[Hg] [facility] 02-24-2022 08:14-0400 Body temperature 98.24 [degF] [facility] 02-24-2022 08:14-0400 Heart rate 74 /min [facility] 02-24-2022 08:14-0400 Respiratory rate 18 /min [facility] 02-24-2022 08:14-0400 SaO2% (BldA) [Mass fraction] 99 % [facility] Encounters Encounter Date Encounter Type Care Provider Facility Start: 07-09-2024 End: 07-09-2024 ambulatory [facility] Work Phone: Start: 07-09-2024 End: 07-09-2024 Patient encounter procedure [facility] Physician [facility] Work Phone: Start: 06-28-2024 End: 06-28-2024 ambulatory AALIYAH VIRGILIO [facility] Start: 05-15-2024 Non-patient / Non-visit [facility] Physician [facility] Work Phone: Start: 05-11-2024 Non-patient / Non-visit [facility] Physician [facility] Work Phone: Start: 05-10-2024 Non-patient / Non-visit [facility] Work Phone: Start: 05-07-2024 End: 05-07-2024 ambulatory [facility] Work Phone: Start: 05-07-2024 End: 05-07-2024 Patient encounter procedure [facility] Physician [facility] Work Phone: Start: 05-01-2024 End: 05-01-2024 ambulatory [facility] Start: 04-25-2024 Non-patient / Non-visit [facility] Work Phone: Start: 03-28-2024 End: 03-28-2024 ambulatory [facility] Start: 01-08-2024 End: 01-08-2024 [facility] Start: 01-08-2024 End: 01-08-2024 ambulatory [facility] Work Phone: Start: 01-08-2024 End: 01-08-2024 Patient encounter procedure [facility] Work Phone: Start: 12-28-2023 Non-patient / Non-visit [facility] Physician [facility] Work Phone: Start: 10-25-2023 End: 10-25-2023 ambulatory [facility] Start: 10-25-2023 End: 10-25-2023 Encounter for general adult medical examination without abnormal findings [facility] Start: 06-08-2023 End: 06-08-2023 ambulatory Amelia Frey Other [employer] Other Start: 06-08-2023 Office outpatient vi sit 15 minutes Amelia Frey [facility] Start: 05-25-2023 End: 05-25-2023 ambulatory Amelia Tk Other [employer] Other Start: 05-25-2023 Telephone encounter Amelia Tk [facility] Start: 04-25-2023 End: 04-25-2023 ambulatory Amelia Tk Other [employer] Other Start: 04-25-2023 Telephone encounter Amelia Tk [facility] Start: 03-23-2023 End: 03-23-2023 ambulatory Amelia Tk Other [employer] Other Start: 03-23-2023 Telephone encounter Amelia Tk [facility] Start: 02-20-2023 End: 02-20-2023 ambulatory Amelia Tk Other [employer] Other Start: 02-20-2023 Telephone encounter Amelia Tk [facility] Start: 01-17-2023 End: 01-17-2023 ambulatory Amelia Tk Other [employer] Other Start: 01-17-2023 Telephone encounter Amelia Tk [facility] Start: 12-20-2022 End: 12-20-2022 ambulatory Rox Watson Other [employer] Other Start: 12-20-2022 [facility] visit new patient Rox Watson [facility] Start: 12-19-2022 End: 12-19-2022 ambulatory Amelia Tk Other [employer] Other Start: 12-19-2022 Telephone encounter Amelia Tk [facility] Start: 12-10-2022 End: 12-11-2022 ambulatory AALIYAH POOLE Facility:[facility] Start: 11-15-2022 End: 11-15-[address] GEORGIE WELLER Facility:[facility] Start: 10-09-2022 End: 10-09-[address] RAMIRO Puentes Facility:[facility] Start: 09-30-2022 End: 10-01-2022 ambulatory FABIÁN HARRINGTON Facility:[facility] Start: 09-26-2022 End: 09-26-[address] HARJINDER RAMIREZ Facility:[facility] Start: 09-21-2022 End: 09-22-[address] AMELIA FREY Facility:[facility] Start: 09-18-2022 End: 09-18-[address] GEORGIE WELLER Facility:[facility] Start: 09-11-2022 End: 09-11-[address] RAMIRO Puentes Facility:[facility] Start: 09-03-2022 End: 09-04-2022 ambulatory FABIÁN HARRINGTON Facility:[facility] Start: 09-03-2022 End: 09-03-[address] RAMIRO Puentes Facility:[facility] Start: 08-30-2022 End: 08-30-[address] [...] 02-24-2022 End: 02-24-2022 Emergency department patient visit Demond Green [facility] Procedures Date Procedure Procedure Detail Performing Clinician Start: 01-08-2024 Follow-up visit Follow-up HERMELINDA HUGO Plan of Treatment Date Care Activity Detail Author [facility] Payers Date Payer Category Payer Self-pay 1959 Unknown [id number] 1935 Unknown [id number] 2.16.84 [id number] 1935 Unknown [id number] 2.16.84 0.1.344188.3.579.2.593 1935 Unknown [id number] 2.16.84 0.1.048201.3.579.2.593 1935 Unknown [id number] 2.16.84 0.1.573712.3.579.2.593 1935 Unknown [id number] 2.16.84 0.1.146212.3.579.2.593 1935 Unknown [id number] 2.16.84 0.1.413175.3.579.2.593 1935 Unknown [id number] 2.16.84 0.1.630028.3.579.2.593 1935 Unknown [id number] 2.16.84 0.1.609148.3.579.2.593 1935 Unknown [id number] 2.16.84 0.1.648595.3.579.2.593 1935 Unknown [id number] 2.16.84 0.1.075540.3.579.2.593 1935 Unknown [id number] 2.16.84 0.1.532484.3.579.2.593 1935 Unknown [id number] 2.16.84 0.1.527889.3.579.2.593 1935 Unknown [id number] 2.16.84 0.1.701095.3.579.2.593 1935 Unknown [id number] 2.16.84 0.1.224906.3.579.2.593 1935 Unknown [id number] 2.16.84 0.1.778387.3.579.2.593 1935 Unknown [id number] 2.16.84 0.1.501348.3.579.2.593 1935 Unknown [id number] 2.16.84 0.1.520405.3.579.2.593 1935 Unknown [id number] 2.16.84 0.1.902071.3.579.2.593 1935 Unknown [id number] 2.16.84 0.1.424499.3.579.2.593 Medicare [id number] 2. [id number] Unknown [id number] Social History Date Type Detail Facility Tobacco smoking status Unknown i f ever smoked [facility] Sex Assigned At Female [facility] Start: 1935 Sex Assigned At Female F [facility] Clinical Notes 02-24-2022 to 06-28-2024 Note Date & Type Note Facility 06-28-2024 Note Per assessment heart rates in the 50s No concerning symptoms at this time We will continue to monitor Discussed with patient to call office for any lightheadedness, dizziness, passing out she voiced understanding [facility] 06-28-2024 Note Hypertension is stab le for her blood pressure log is very well-controlled in office is always elevated most likely related to whitecoat syndrome Continue medicines as prescribed including carvedilol, clonidine, hydralazine, losartan, spironolactone Renal function stable [facility] 06-28-2024 Note stable [facility] 06-28-2024 Note [facility] CARDIOLOGY PROGR ESS NOTE HPI: Zoraida Barrios is a 88 y.o. female here for routine F/U HPI 88 yo female presents for routine F/U for hypertension, bradycardia, occasional bilateral lower extremity edema/diastolic dysfunction. Overall patient states she is doing fine feels okay with occasional dizziness and concerns about just generalized fatigue. Admits that she stays in general very active and busy but there are days after lunch she takes a nap. Pt denies sob, chest pain, palpatations. Pt says one of her medications makes her dizzy but she does not know which one. Review of Systems Constitutional: Positive for diaphoresis (1 episode). Neurological: Positive for excessive daytime sleepiness (intermittent). All other systems reviewed and are negative. Visit Vitals BP 168/84 (BP Location: Left arm, Patient Position: Sitting) Pulse (!) 48 Ht 1.575 m (5' 2 ) Wt 59.4 kg (131 lb) SpO2 98% BMI 23.96 kg/m??? Smoking Status Every Day BSA 1.61 m??? Allergies Allergen Reactions Sulfa (Sulfonamide Antibiotics) [...] 3 times a day. 270 tablet 3 levothyroxine (Synthroid, Levoxyl) 50 mcg tablet Take 50 mcg by mouth in the morning. losartan (Cozaar) 50 mg tablet Take 1 tablet (50 mg) by mouth in the morning. 90 tablet 3 spironolactone (Aldactone) 25 mg tablet Take 1 tablet (25 mg) by mouth in the morning. 90 tablet 3 No current facility-administered medications [...] Thought content normal. Judgment: Judgment normal. Labs: 05/15/24 CBC normal NA and K+ normal Bun 20, CR 1.15- slightly elevated but typical for her TSH 4.417 elevated, Free T4 1.03 normal Renal function stable 04/25/24 13.3, H/H 13.8/43.1, plt 145 NA 139, K+ 3.9 BUN 27, CR 1.21- normal LFT normal 12/10/22 BUN 28, CR 1.26 elevated K+ 3.4 low GFR 40 Last lab values have been reviewed CV Testing 04/25/24 EKG Echo 04/28/2020 Reviewed LV systolic function normal. Mild diastolic dysfunction. RV normal size and systolic function. Mild tricuspid valve regurg. Mild mitral valve regurg. 05/10/24 CXR- Assessment/Plan: Hypotension due to drugs stable Hypertensive disorder Hypertension is stable for her blood pressure log is very well-controlled in office is always elevated most likely related to whitecoat syndrome Continue medicines as prescribed including carvedilol, clonidine, hydralazine, losartan, spironolactone Renal function stable Asymptomatic bradycardia Per assessment heart rates in the 50s No concerning symptoms at this time We will continue to monitor Discussed with patient to call office for any lightheadedness, dizziness, passing out she voiced understanding RTC 6 months [facility] 06-28-2024 Note Pt is here for three month follow up. Pt denies sob, chest pain, palpatations. Pt says one of her medications makes her dizzy but she does not know which one. Review of Systems Constitutional: Positive for diaphoresis (1 episode). Neurological: Positive for excessive daytime sleepiness (intermittent). All other systems reviewed and are negative. [facility] 05-01-2024 Note Hypertension is quit e variable dependent upon he level of stress and anxiety. Pt was recently evaluated in ED for Sweating cardiac evaluation was completed with ECG and Troponin levels- all were normal, HR and B/P were stable- therefore she was discharged to home. Denied any repeat episodes- and I recommended her to F/U with her PCP for further evaluation of possible hormones, Vit D, Thyroid function and Vitamin B levels. [facility] 05-01-2024 Note Currently stable [facility] 05-01-2024 Note Pt reports having no gely heart rate 49-50's, and denied any significant symptoms associated. Will continue to monitor and D/W pt to call office for lightheadedness, dizziness, near syncope or syncope and she voiced understanding [facility] 05-01-2024 Note UTP CARDIOLOGY PROGR ESS NOTE HPI: Zoraida Barrios is a 88 y.o. female here for hospital F/U HPI 88 yo female presents today for hospital F/U after recent evaluation for bradycardia Patient here for follow up [facility] ED. Says she went shopping with a friend the other day and came home to rest after not feeling so well. She had a diaphoretic episode that evening and went to the ED for evaluation. She says sweat was rolling off of her and the back of her neck/hair was all wet. This episode was not accompanied with any other cardiac symptoms. Patient denies chest pain, SOB, palpitations, and lightheadedness/syncope. Also states her HR has been running in the low 50's, but every once in awhile she is 49. C/o weight gain. TSH in January 2024 was normal. I asked if her appetite or diet has changed and she states she has ice cream every night. Says she has days she just doesn't feel good but is unable to explain this feeling. Review of Systems Constitutional: Positive for diaphoresis (1 episode). Neurological: Positive for excessive daytime sleepiness (intermittent). All other systems reviewed and are negative ED note- Patient: ZORAIDA BARRIOS MR#: [id number] : 1935 Acct:[id number] Age/Sex: 88 / F ADM Date: 04/25/24 Loc: ER Date of Service: 04/25/[address]: cc: Amelia Frey M.D.; Fabián Harrington; Tammy Hayes~ HPI HPI - General Adult General Chief complaint: Chest Pain Stated complaint: High Blood Pressure Time Seen by Provider: 04/25/24 18:01 Source: patient Mode of arrival: walk-in Limitations: no limitations History of Present Illness HPI narrative: Patient is an 88-year-old female who presents to the emergency department for elevated blood pressure noted at home. She states she returned home from shopping when she broke out in a sweat. She states that made her very worried because she looked up symptoms of a possible heart attack and sweating was one of them. She has no medical complaints at this time aside from the elevated blood pressure. She is well-known to this emergency department for frequent visits related to high blood pressure. She has no chest pain, shortness of breath, no peripheral edema. She is resting comfortably, in no distress at time of initial interview. She denies any recent changes to her blood pressure medications. Review of Systems Constitutional: Positive for fatigue. Respiratory: Negative. Cardiovascular: Negative. Neurological: Negative. All other systems reviewed and are negative. Visit Vitals BP 180/74 (BP Location: Left arm, Patient Position: Sitting) Pulse 52 Ht 1.575 m (5' 2 ) Wt 59 kg (130 lb) SpO2 96% BMI 23.78 kg/m??? Smoking Status Every Day BSA 1.61 m??? Allergies Allergen Reactions Sulfa (Sulfonamide Antibiotics) [...] mouth in the morning and at bedtime. (Patient taking differently: Take 50 mg by mouth in the morning.) 180 tablet 3 spironolactone (Aldactone) 25 mg tablet Take 1 tablet (25 mg) by mouth in the morning. 90 tablet 3 No current facility-administered medications [...] and oriented to person, place, and time. P (more content not included)... [facility] 05-01-2024 Note Patient here for [facility] ED. Says she went shopping with a friend the other day and came home to rest after not feeling so well. She had a diaphoretic episode that evening and went to the ED for evaluation. She says sweat was rolling off of her and the back of her neck/hair was all wet. This episode was not accompanied with any other cardiac symptoms. Patient denies chest pain, SOB, palpitations, and lightheadedness/syncope. Also states her HR has been running in the low 50's, but every once in awhile she is 49. C/o weight gain. TSH in January 2024 was normal. I asked if her appetite or diet has changed and she states she has ice cream every night. Says she has days she just doesn't feel good but is unable to explain this feeling. Review of Systems Constitutional: Positive for diaphoresis (1 episode). Neurological: Positive for excessive daytime sleepiness (intermittent). All other systems reviewed and are negative. [facility] 03-28-2024 Note Stable Continue aldactone, fluid restriction and low sodium diet Continue regular exercise and activity [facility] 03-28-2024 Note Well controlled with aldactone currently no edema [facility] 03-28-2024 Note Hypertension is unch anged. Dietary sodium restriction. Continue current medications. Blood pressure will be reassessed in 3 months. [facility] 03-28-2024 Note Patient here for 2 m o follow up hypertension and diastolic dysfunction. She had routine labs in January 2024. She denies chest pain, SOB, palpitations, and syncope. Sometimes gets lightheaded upon standing up. Review of Systems Neurological: Positive for excessive daytime sleepiness and light-headedness. All other systems reviewed and are negative. [facility] 03-28-2024 Note UTP CARDIOLOGY PROGR ESS NOTE [...] with her evening/bedtime meds, she voiced understanding [facility] 01-08-2024 Note UTP CARDIOLOGY PROGR ESS NOTE [...] -Follow-up in cardiology clinic Hermelinda Hugo MD [facility] 2023 Note Currently stable [facility] 2023 Note Currently resolved a nd she has stopped lasix and potassium. D/W pt that if edema reoccurs she can take lasix with potassium as needed [facility] 2023 Note Hypertension is much better controlled with occasional hypotension that she knows when b/p is low and I relax and hydrate until I feel better. Continue hydralazine, coreg, clonidine, losartan and aldactone [facility] 2023 Note Currently stable [facility] 10-25-2023 Note UTP CARDIOLOGY PROGR ESS NOTE [...] our last visit. States her trip to [facility] went very well and has a trip upcoming to [facility] for skiing. Review of [...] Edema, lower extr (more content not included)... [facility] 06-08-2023 Evaluation note Encounter Date Diagnosis Assessment Notes May, Other insomnia (ICD-10 - G47.09) Pt states the ativan does help her insomnia and bp. Denies over-sedation symptoms. 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 Recommend taking meds daily and keeping record and discussing bps w her provider there. [employer] Other 03-14-2023 Evaluation note* Encounter Date Diagnosis Assessment Notes [...] pressure monitor reveals significantly better blood pressure [employer] Other 05-19-2022 Evaluation + Plan noteExtracted from: Title:ED Note Author:Demond Green M.D. te:02/24/22 1. Accelerated hypertension (I10: Essential (primary) [...] Troponin 9 Hr. XR Chest Single View [facility]05-19-2022 Hospital Discharge instructions Patient Education 02/24/2022 10:32:06 [...] care provider. This is important. Medicines Take [id number] and prescription medicines only as told by [...] 09/25/2006 Document Revised: 06/05/2019 Document Reviewed: 06/05/2019 [employer]ell Patient Education [place]. Follow Up Care 02/24/2022 08:13:52 With:AMELIA FREY Address: [address] [place] [id number] Business (1) When:02/27/2022 10:23:00 Comments:Increase Losartan to 100 mg a day. Continue Metoprolol 50 mg a day. Make sure to take your blood pressure twice a day and follow-up with Dr. Frey tomorrow at 1 PM at her office. Return to the emergency room if your headache recurs, chest pain, dizziness or any new symptoms. [facility] [employer] Other Evaluation noteNo assessment information available [facility] Work Phone: Evaluation note* Diagnosis Onset Date Resolution Status Chronic kidney disease, stage 3b acute Resistant hypertension acute Weight gain, abnormal acute [facility] Work Phone: History general Narrative - Reported* Type Description Date Medical History HYPERTENSION Medical History RENAL IMPAIRMENT Medical History TOBACCO DEPENDENCE SYNDROME Surgical History TUBAL LIGATION Surgical History CHOLECYSTECTOMY Hospitalization History SEE [facility] [employer] Other Hospital course Narrative No data available for this section [facility] Summary Purpose Family History Relationship Condition Age at Onset Recorded Date/T deniz father Unknown family member Unknown Not Specified Hypertension Unknown Unknown sister Hypertension Unknown Relationship Condition Age at Onset Recorded Date/T deniz father Unknown family member Unknown mother Hypertension Unknown Unknown sister Hypertension Unknown Advance Directives Advance Directive Response Recorded Date/ Time Advance Directives No January 02, 2 024 11:20am Chief Complaint and Reason for Visit Chief Complaint BP Chief Complaint concerns about weigh t Reason for Visit Chronic kidney disea se, stage 3b Resistant hypertension Weight gain, abnormal Chief Complaint concerns about weigh t medication dicussion Reason for Visit Chronic kidney disea se, stage 3b Resistant hypertension Weight gain, abnormal Additional Source Comments INFORMATION SOURCE (unrecogn ized section and content) DATE CREATED AUTHOR 03/05/2022 Jorje [facility] DATE CREATED AUTHOR AUTHOR'S ORGANIZ ATION 12/13/2022 [facility] DATE CREATED AUTHOR AUTHOR'S ORGANIZ ATION 07/01/2024 [facility] REASON FOR VISIT (unrecogniz ed section and [...] May 07, 2024 End: May 07, 2024 Team Status: Active Member Role Status Dates Amelia Frey MD Primary Care Provide r, Attending Provider Active Start: May 10, 2024 Team Status: Active Member Role Status Dates Amelia Frey MD Primary Care Provider Active Start: May 11, 2024 Andrés Rubio DO Attending Provider Active Sta rt: May 11, 2024 Team Status: Active Member Role Status Dates Amelia Frey MD Primary Care Provide r, Attending Provider Active Start: May 15, 2024 Team Status: Inactive Member Role Status Dates Amelia Frey MD Primary Care Provide r, Attending Provider Active Start: July 09, 2024 End: July 09, 2024 Goals (unrecognized section and content) Goals [...] BE BASED ON THE PRIMARY CLINICAL RECORDS. [facility] [employer] [facility]. provides no warranty or guarantee of the accuracy or completeness of information in this document.
--- NOTE | 2024-08-07 18:49 | ECG_ITS ---
[facility] Test Date: 2024-08-07 Pat Name: ZORAIDA GAYTAN Department: Room: - Gender: Female [employer]: : 1935 Requested By: LACEY FREY Order Number: [id number] Reading MD: PERRI KWONG Measurements Intervals [place] Rate: 60 P: 58 [place]: 194 QRS: 66 QRSD: 92 T: 60 QT: 430 QTc: 430 Interpretive Statements 1100 Sinus rhythm 9110 normal ECG Compared to ECG 05/10/2024 14:15:54 No significant changes Electronically Signed On 08-07-2024 23:27:56 EDT by PERRI KWONG
--- NOTE | 2024-08-07 18:49 | XR_ITS ---
[address] [address] Patient Name: ZORAIDA GAYTAN MRN: [id number] date: 1935 Sex: F Assigned Patient Location: ER Current Patient Location: ER Accession/Order Number: [id number] Exam Date: 08/07/2024 19:23 Report Date: 08/07/2024 20:29 At the request of: ELLIOT SALDANA Procedure: XR chest 1V Exam: Radiographs: XR chest 1V Reason for exam: Hypertension Comparison: Chest x-ray dated 05/10/2024 XR/XR chest 1V IMPRESSION: Small amount of scarring in the left lower lung. Left lower lung calcified granuloma. Pulmonary venous hypertension. Hyperinflation both lungs. Remainder the chest is unremarkable. Electronically authenticated by: LOR KEARNEY Date: 08/07/2024 20:29
--- NOTE | 2024-08-07 18:58 | ED.GENADUL1 ---
HPI HPI - General Adult General Chief complaint: Recheck/Abnormal Lab/Rx Stated complaint: BLOOD PRESSURE DROPPING Time Seen by Provider: 08/07/24 18:49 Source: patient Mode of arrival: walk-in Limitations: no limitations History of Present Illness HPI narrative: Patient is an 88-year-old female with a history of high blood pressure who presents to the emergency department for elevated blood pressure reading she noted this evening. She states that she felt not quite right at home and checked her blood pressure and it was elevated. She denies dizziness, headache, visual changes, chest pain, shortness of breath, peripheral paresthesias or speech changes. She has been seen in this emergency department for breakthrough high blood pressure in the past. She states she takes her blood pressure medications religiously. She takes morning, afternoon and bedtime medications. She has not skipped any doses. She has not had any other focal medical complaints. She states at this time she feels fine . Related Data Home Medications ?Medication ?Instructions ?Recorded ?Confirmed carvedilol 25 mg tablet 25 mg PO BID 12/28/23 05/10/24 clonidine HCl 0.2 mg tablet 0.2 mg PO DAILY 12/28/23 05/10/24 hydralazine 50 mg tablet 75 mg PO 12/28/23 lorazepam 0.5 mg tablet 0.5 mg PO Q12H PRN anxiety 12/28/23 05/10/24 losartan 100 mg tablet 100 mg PO DAILY 12/28/23 05/10/24 spironolactone 25 mg tablet 25 mg PO Q12H 12/28/23 05/10/24 Allergies Allergy/AdvReac Type Severity Reaction Status Date / Time Sulfa (Sulfonamide AdvReac Mild rash Verified 08/07/24 18:24 Antibiotics) Opioid HPI Opioid Management Most Recent Opioid Data: No Data to Display Review of Systems ROS Constitutional Denies: fever or chills Eyes Denies: change in vision or blurry vision Ears, nose, mouth, and throat Denies: throat pain Cardiovascular Denies: chest pain Respiratory Denies: shortness of breath or cough Gastrointestinal Denies: nausea or vomiting Musculoskeletal Denies: back pain or neck pain Integumentary/Breast Denies: rash Neurological Denies: headache, numbness in extremities, weakness in extremities or dizziness Hematologic/Lymphatic Denies: easy bruising or easy bleeding PFSH PFSH Social History Little interest or pleasure in doing things: not at all Feeling down, depressed, or hopeless: not at all Exam Narrative Exam Narrative: Gen.: Awake, alert, in no distress Head: Normocephalic, atraumatic ENT: Moist mucous membranes Respiratory: No respiratory distress, lungs clear bilaterally Cardio: Regular rate and rhythm Extremities: Moves extremities equally, no pedal edema Psych: Normal mood and affect Neuro: No focal neuro deficit Skin: Warm, dry, intact Constitutional Vital Signs, click to edit/add: Last Vital Signs Pulse 65 08/07/24 20:10 Resp 22 H 08/07/24 20:10 BP 180/78 H 08/07/24 21:31 Pulse Ox 98 08/07/24 19:20 O2 Del Method Room Air 08/07/24 18:25 Course Vital Signs Vital signs: Vital Signs Pulse Rate 68 08/07/24 18:25 Respiratory Rate 18 08/07/24 18:25 Blood Pressure 244/95 H 08/07/24 18:25 Pulse Oximetry 98 08/07/24 18:25 Oxygen Delivery Method Room Air 08/07/24 18:25 Pulse Rate 65 08/07/24 20:10 Respiratory Rate 22 H 08/07/24 20:10 Blood Pressure 180/78 H 08/07/24 21:31 Pulse Oximetry 98 08/07/24 19:20 Oxygen Delivery Method Room Air 08/07/24 18:25 Medical Decision Making MDM Narrative Medical decision making narrative: Patient with unremarkable EKG, laboratory studies reviewed and noted within normal limits. Chest x-ray is unremarkable. Patient was treated with IV hydralazine, Vasotec with some improvement and additional hydralazine was given. Repeat manual blood pressure prior to discharge is 180/78. On my reevaluation of the patient, she has multiple questions regarding her blood pressure medication. She was encouraged to resume all of her regular medications when she gets home including her nighttime dose tonight. 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 She also questions if her thyroid studies may be abnormal as she was to take thyroid medicine from her PCP but states that she did not feel well when she was taking it so her PCP told her to stop it. TSH will be added to the laboratory studies that have already been sent to the lab for her PCP to follow-up on. Patient is feeling very anxious for discharge prior to arrival, she has no other significant focal medical complaints. SUPERVISED APC VISIT, PHYSICIAN ATTESTATION: Based on the medical record the care appears appropriate. ? Medical Records Medical records reviewed: Yes I reviewed the patient's medical records Lab Data Lab results reviewed: Yes I reviewed the patient's lab results Labs: Lab Results 08/07/24 08/07/24 Range/Units 18:45 19:35 WBC 8.4 (4.0-11.0) 10^3/uL RBC 4.67 (4.20-5.40) 10^6/uL Hgb 14.2 (12.0-16.0) g/dL Hct 43.9 (36.0-48.0) % MCV 94.0 (81.0-99.0) fL MCH 30.4 (26.7-34.0) pg MCHC 32.3 (29.9-35.2) g/dL RDW 14.3 (11.0-15.0) % Plt Count 134 L (150-450) 10^3/uL MPV 11.4 (9.5-13.5) fL Neut % (Auto) 52.5 (43.0-75.0) % Lymph % (Auto) 23.7 (20.5-60.0) % Norton % (Auto) 14.9 H (1.7-12.0) % Eos % (Auto) 5.2 (0.9-7.0) % Baso % (Auto) 3.3 H (0.2-2.0) % Neut # (Auto) 4.4 (1.4-6.5) 10^3/uL Lymph # (Auto) 2.0 (1.2-3.8) 10^3/uL Norton # (Auto) 1.3 H (0.3-0.8) 10^3/uL Eos # (Auto) 0.4 (0.0-0.7) 10^3/uL Baso # (Auto) 0.3 H (0.0-0.1) 10^3/uL Abs Immat Gran (auto) 0.03 (0.00-0.03) 10^3/uL Imm/Tot Granulo (auto) 0.4 (0.0-0.5) % PT 13.0 H (9.0-11.6) sec INR 1.25 Sodium 141 (136-145) mmol/L Potassium 4.2 (3.5-5.1) mmol/L Chloride 106 (98-107) mmol/L Carbon Dioxide 26.0 (21.0-32.0) mmol/L Anion Gap 13.2 BUN 20.0 H (7.0-18.0) mg/dL Creatinine 1.11 H (0.55-1.02) mg/dL Est GFR ( Amer) 56 L (>=60 mL/min/1.73m^2) Est GFR (Non-Af Amer) 46 L (>=60 mL/min/1.73m^2) BUN/Creatinine Ratio 18.0 Glucose 98 (74-106) mg/dL Calcium 10.1 (8.5-10.1) mg/dL Total Bilirubin 0.4 (0.2-1.0) mg/dL AST 17 (15-37) U/L ALT 11 L (14-59) U/L Alkaline Phosphatase 57 (46-116) U/L Troponin I High Sens 8.8 (4.0-51.3) pg/mL NT-Pro-B Natriuret Pep 239.0 (<=1800.0) pg/mL Total Protein 6.9 (6.4-8.2) g/dL Albumin 3.7 (3.4-5.0) g/dL Globulin 3.2 g/dL Albumin/Globulin Ratio 1.2 Imaging Data Chest x-ray: Attestation: I have reviewed the pertinent imaging results. Radiologist's impression: ITS Impressions Chest X-Ray 08/07/24 18:49 IMPRESSION: Small amount of scarring in the left lower lung. Left lower lung calcified granuloma. Pulmonary venous hypertension. Hyperinflation both lungs. Remainder the chest is unremarkable. Electronically authenticated by: LOR KEARNEY Date: 08/07/2024 20:29 ECG Data Attestation: I personally reviewed and interpreted this ECG as follows: (Normal sinus rhythm at a rate of 60, no acute ST elevation or ectopy. EKG reviewed by attending physician) Discharge Plan Discharge Chief Complaint: Recheck/Abnormal Lab/Rx Clinical Impression: Hypertension Patient Disposition: Home, Self-Care Time of Disposition Decision: 21:45 Condition: Good Prescriptions / Home Meds: No Action carvedilol 25 mg tablet 25 mg PO BID spironolactone 25 mg tablet 25 mg PO Q12H clonidine HCl 0.2 mg tablet 0.2 mg PO DAILY lorazepam 0.5 mg tablet 0.5 mg PO Q12H PRN (Reason: anxiety) hydralazine 50 mg tablet 75 mg PO losartan 100 mg tablet 100 mg PO DAILY Print Language: Maltese Instructions: Hypertension (ED) Referrals: Amelia Trinh MD [Primary Care Provider] - 1 week
[2024-08-07 19:04] LABS: Basophils Absolute Auto 0.3 10^3/uL (0.0-0.1); Basophils Percent Auto 3.3 % (0.2-2.0); Eosinophils Absolute Auto 0.4 10^3/uL (0.0-0.7); Eosinophils Percent Auto 5.2 % (0.9-7.0); Hematocrit 43.9 % (36.0-48.0); Hemoglobin 14.2 g/dL (12.0-16.0); Immature Granulocytes Abs Auto 0.03 10^3/uL (0.00-0.03); Immature Granulocytes Pct Auto 0.4 % (0.0-0.5); Lymphocytes Percent Auto 23.7 % (20.5-60.0); Mean Corpuscular HGB Conc 32.3 g/dL (29.9-35.2); Mean Corpuscular Hemoglobin 30.4 pg (26.7-34.0); Mean Platelet Volume 11.4 fL (9.5-13.5); Monocytes Absolute Auto 1.3 10^3/uL (0.3-0.8); Monocytes Percent Auto 14.9 % (1.7-12.0); Neutrophils Absolute Auto 4.4 10^3/uL (1.4-6.5); Neutrophils Percent Auto 52.5 % (43.0-75.0); Platelet Count 134 10^3/uL (150-450); Red Blood Count 4.67 10^6/uL (4.20-5.40); Red Cell Distribution Width 14.3 % (11.0-15.0); White Blood Count 8.4 10^3/uL (4.0-11.0)
[2024-08-07] MEDS: ENALAPRILAT DIHYDRATE 1.25 MG/ML VIAL IV (19:10)
[2024-08-07] MEDS: HYDRALAZINE HCL 20 MG/ML VIAL 10 MG IVP ×2 (19:10→20:52)
[2024-08-07 19:30] LABS: Alanine Aminotransferase 11 U/L (14-59); Albumin Globulin Ratio 1.2; Albumin Level 3.7 g/dL (3.4-5.0); Alkaline Phosphatase 57 U/L (46-116); Anion Gap 13.2; Aspartate Amino Transferase 17 U/L (15-37); Bilirubin Total 0.4 mg/dL (0.2-1.0); Calcium 10.1 mg/dL (8.5-10.1); Chloride 106 mmol/L (98-107); Estimated GFR (African America 56 (>=60 mL/min/1.73m^2); Estimated GFR (Non-African Ame 46 (>=60 mL/min/1.73m^2); Globulin 3.2 g/dL; Glucose 98 mg/dL (74-106); Potassium 4.2 mmol/L (3.5-5.1); Sodium 141 mmol/L (136-145); Total Protein 6.9 g/dL (6.4-8.2); Troponin I High Sensitivity 8.8 pg/mL (4.0-51.3)
[2024-08-07 20:09] LABS: INR 1.25
[2024-08-07 22:49] LABS: Thyroid Stimulating Hormone 2.454 uIU/mL (0.358-3.740)
== END 2024-08-07 21:54 | disposition home or self-care (01) ==
PROVIDERS: Physician Assistant; Emergency Provider Emergency Medicine Emergency Medical Services; PCP Family Medicine
DX: I10 Essential (primary) hypertension (principal)
CPT/HCPCS: 36415; 71045; 80053; 83880; 84443; 84484; 85025; 85610; 93005; 96374; 96375; 96376; 99285; J0360

== ENCOUNTER 2024-11-04 13:29 | Emergency (ER) | payer MEDICARE, SELFPAY ==
[2024-11-04 13:44] VITALS: BP 149/61; PULSE 66; TEMP 36.6; O2SAT 99; BMI 23.8
--- OUTSIDE RECORDS SUMMARY | 2024-11-04 13:47 | XMS_ITS | CCD ---
Author Organization [facility] Care Team Providers Care Career Portals Teacher Name Role Phone AMELIA FREY Primary Care Physician SAURABH Puentes, DR RUBIO Consulting Unavailable HAY [...] AMELIA Ashton Consulting Unavailable TK, DR AMELIA Ashtno Primary Care Unavailable FREY, DR AMELIA Ashton [...] TK, DR AMELIA Ashton Primary Care Unavailable [facility], DR BERTHA Logan Consulting Unavailable ALGHOTHANI, MOHAMAD Consulting Unavailable Frey, Amelia Unavailable Rox Watson Unavailable VIRGILIO, AALIYAH Attending Unavailable VIRGILIO, AALIYAH Attending Unavailable ALGHOTHANI, MOHAMAD Attending Unavailable VIRGILIO, AALIYAH Attending Unavailable VIRGILIO, AALIYAH Attending Unavailable Allergies Allergy Classification Reported Allergen(s) Allergy Type Date of Onset Reaction(s) Facility (1 source) Sulfonamides (Antibiotic); Translations: [sulfa drugs] Drug allergy Unknown [facility] (2 sources) Sulfonamides (Antibiotic) Drug allergy (disorder) 4 [facility] Repository (10 sources) Substance with sulfonamide structure and antibacterial mechanism of action (substance) Drug allergy Unknown [facility] Other (1 source) Sulfonamides (Antibiotic); Translations: [SULFA (SULFONAMIDE ANTIBIOTICS)] Propensity to adverse reactions to drug (disorder) 2 [facility] Repository Medications Current Medications Medication Drug [...] 08-30-2022 Episodic Other aftercare (1 source) Other terminal superintendent (current) drug therapy; Translations: [OTH DETENTION 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 THERAPY] Onset: 10-12-2022 Episodic Other [...] Range Facility Office Visiton 06-28-2024 Follow-up visit [id number] Zoraida Barrios 1935 F Date Provider Department Center 06/28/2024 AALIYAH HENDERSON CARD [facility] Family History Problem Relation Age of Onset Hypertension Mother Family Status - Relation Status Age at Mother Level of Service:80790 MS OFFICE/OUTPATIENT ESTABLISHED LOW MDM 20 MIN Normal [facility] Basophils Auto (Bld) [#/Vol] on 05-15-2024 Basophils (Bld) [#/Vol] 0.2 10 3/uL High 0.0-0.1 [facility] Basophils/100 WBC Auto (Bld) on 05-15-2024 Basophils/100 WBC (Bld) 2.2 % High 0.2-2.0 [facility] Eosinophils/100 WBC Auto (Bl d)on 05-15-2024 Eosinophils/100 WBC (Bld) 5.0 % 0.9-7.0 [facility] Erythrocyte distribution wid th Auto (RBC) [Ratio]on 05-15-2024 Erythrocyte distribution width (RBC) [Ratio] 14.7 % 11.0-15.0 [facility] Estimated glomerular filtrat ion rate (GFR) non- Americanon 05-15-2024 GFR/1.73 sq M.predicted among non-blacks MDRD (S/P/Bld) [Vol rate/Area] 45 mL/min/{1.73_m2} Low >=60 [facility] Hematocrit Auto (Bld) [Volum e fraction]on 05-15-2024 Hematocrit (Bld) [Volume fraction] 40.2 % 36.0-48.0 [facility] Hemoglobin [Mass/volume] in Bloodon 05-15-2024 Hemoglobin (Bld) [Mass/Vol] 13.0 g/dL 12.0-16.0 [facility] Laboratory - Chemistry and C hemistry - challengeon 05-15-2024 Calcium [Mass/Vol] 9.5 mg/dL 8.5-10.1 [facility] Chloride [Moles/Vol] 105 mmol/L 98-107 [facility] CO2 [Moles/Vol] 26.4 mmol/L 21.0-32.0 [facility] Cobalamin (Vitamin B12) [Mass/Vol] 618.0 pg/mL 193.0-986.0 [facility] Creatinine [Mass/Vol] 1.15 mg/dL High 0.55-1.02 [facility] Free T4 [Mass/Vol] 1.06 ng/dL 0.76-1.46 [facility] GFR/1.73 sq M.predicted MDRD (S/P/Bld) [Vol rate/Area] 54 mL/min/{1.73_m2} Low >=60 [facility] Glucose [Mass/Vol] 104 mg/dL 74-106 [facility] Potassium [Moles/Vol] 4.2 mmol/L 3.5-5.1 [facility] Sodium [Moles/Vol] 137 mmol/L 136-145 [facility] TSH Qn 4.417 m[IU]/L High 0.358-3.740 [facility] Urea nitrogen [Mass/Vol] 20.0 mg/dL High 7.0-18.0 [facility] Urea nitrogen/Creatinine [Mass ratio] 17.4 mg/mg [facility] Laboratory - Hematology and Cell countson 05-15-2024 Immature granulocytes/100 WBC (Bld) 1.3 % High 0.0-0.5 [facility] Leukocytes [#/volume] correc gely for nucleated erythrocytes in Blood by Automated counon 05-15-2024 WBC corrected for nucl RBC Auto (Bld) [#/Vol] 10.4 10 3/uL 4.0-11.0 [facility] Lymphocytes Auto (Bld) [#/Vo l]on 05-15-2024 Lymphocytes (Bld) [#/Vol] 2.1 10 3/uL 1.2-3.8 [facility] Lymphocytes/100 WBC Auto (Bl d)on 05-15-2024 Lymphocytes/100 WBC (Bld) 20.1 % Low 20.5-60.0 [facility] MCH Auto (RBC) [Entitic mass ]on 05-15-2024 MCH (RBC) [Entitic mass] 30.2 pg 26.7-34.0 [facility] MCHC Auto (RBC) [Mass/Vol]on 05-15-2024 MCHC (RBC) [Mass/Vol] 32.3 g/dL 29.9-35.2 [facility] MCV Auto (RBC) [Entitic vol] on 05-15-2024 MCV (RBC) [Entitic vol] 93.3 fL 81.0-99.0 [facility] Monocytes Auto (Bld) [#/Vol] on 05-15-2024 Monocytes (Bld) [#/Vol] 1.4 10 3/uL High 0.3-0.8 [facility] Monocytes/100 WBC Auto (Bld) on 05-15-2024 Monocytes/100 WBC (Bld) 13.0 % High 1.7-12.0 [facility] Neutrophils Auto (Bld) [#/Vo l]on 05-15-2024 Neutrophils (Bld) [#/Vol] 6.1 10 3/uL 1.4-6.5 [facility] Neutrophils/100 WBC Auto (Bl d)on 05-15-2024 Neutrophils/100 WBC (Bld) 58.4 % 43.0-75.0 [facility] No Panel Informationon 05-15 25-Hydroxy Vitamin D Total 32.6 ng/mL [facility] Comment on above: <20 ng/mL Vit D defi cient20-<30 ng/mL Vit D [id number] ng/mL Vit D sufficient>100 ng/mL Potential Toxicity Eosinophils # (Auto) 0.5 10 3/uL 0.0-0.7 [facility] Folate 12.10 ng/mL 8.60-58.90 [facility] Immature Granulocyte # (Auto) 0.13 10 3/uL High 0.00-0.03 [facility] Platelet mean volume Auto (B ld) [Entitic vol]on 05-15-2024 Platelet mean volume (Bld) [Entitic vol] 10.7 fL 9.5-13.5 [facility] Platelets Auto (Bld) [#/Vol] on 05-15-2024 Platelets (Bld) [#/Vol] 132 10 3/uL Low 150-450 [facility] RBC Auto (Bld) [#/Vol]on RBC (Bld) [#/Vol] 4.31 10 6/uL 4.20-5.40 [facility] Serum or plasma anion gap de terminationon 05-15-2024 Anion gap [Moles/Vol] 9.8 mmol/L [facility] Basophils Auto (Bld) [#/Vol] on 05-10-2024 Basophils (Bld) [#/Vol] 0.2 10 3/uL High 0.0-0.1 [facility] Basophils/100 WBC Auto (Bld) on 05-10-2024 Basophils/100 WBC (Bld) 3.1 % High 0.2-2.0 [facility] Eosinophils/100 WBC Auto (Bl d)on 05-10-2024 Eosinophils/100 WBC (Bld) 6.3 % 0.9-7.0 [facility] Erythrocyte distribution wid th Auto (RBC) [Ratio]on 05-10-2024 Erythrocyte distribution width (RBC) [Ratio] 14.8 % 11.0-15.0 [facility] Estimated glomerular filtrat ion rate (GFR) non- Americanon 05-10-2024 GFR/1.73 sq M.predicted among non-blacks MDRD (S/P/Bld) [Vol rate/Area] 39 mL/min/{1.73_m2} Low >=60 [facility] Fibrin D-dimer [Presence] in Platelet poor plasma by Latex agglutinationon 05-10-2024 Fibrin D-dimer LA Ql (PPP) 0.29 mg/L FEU <=0.59 [facility] Comment on above: Increases in D-Dimer concentration [...] on 05-10-2024 Globulin (S) [Mass/Vol] 3.1 g/dL [facility] Hematocrit Auto (Bld) [Volum e fraction]on 05-10-2024 Hematocrit (Bld) [Volume fraction] 39.6 % 36.0-48.0 [facility] Hemoglobin [Mass/volume] in Bloodon 05-10-2024 Hemoglobin (Bld) [Mass/Vol] 12.9 g/dL 12.0-16.0 [facility] INR in Platelet poor plasma by Coagulation assayon 05-10-2024 INR Coag (PPP) [Relative time] 1.34 {INR} [facility] Comment on above: DESIRED INR:2.0-3.0 CONDITIONS NOT LISTED BELOW2.5-3.5 FOR PROSTHETIC HEART VALVE REPLACEMENT2.5-3.5 RECURRENT THROMBOSIS Laboratory - Chemistry and C hemistry - challengeon 05-10-2024 Bilirubin Ql (U) Negative NEGATIVE [facility] Glucose (U) [Mass/Vol] Negative NEGATIVE [facility] Ketones Ql (U) Negative NEGATIVE [facility] pH (U) 6.0 [pH] 5.0-9.0 [facility] Specific gravity (U) [Rel density] 1.015 1.005-1.025 [facility] Urobilinogen Qn (U) 0.2 {Myranda'U}/dL 0.2-1.0 [facility] Albumin [Mass/Vol] 3.5 g/dL 3.4-5.0 [facility] ALP [Catalytic activity/Vol] 54 U/L 46-116 [facility] ALT [Catalytic activity/Vol] 17 U/L 14-59 [facility] AST [Catalytic activity/Vol] 14 U/L Low 15-37 [facility] Bilirubin [Mass/Vol] 0.4 mg/dL 0.2-1.0 [facility] Calcium [Mass/Vol] 9.5 mg/dL 8.5-10.1 [facility] Chloride [Moles/Vol] 104 mmol/L 98-107 [facility] CO2 [Moles/Vol] 26.0 mmol/L 21.0-32.0 [facility] Creatinine [Mass/Vol] 1.28 mg/dL High 0.55-1.02 [facility] GFR/1.73 sq M.predicted MDRD (S/P/Bld) [Vol rate/Area] 48 mL/min/{1.73_m2} Low >=60 [facility] Glucose [Mass/Vol] 143 mg/dL High 74-106 [facility] Natriuretic peptide B (Bld) [Mass/Vol] 178.0 pg/mL <=1800.0 [facility] Potassium [Moles/Vol] 3.9 mmol/L 3.5-5.1 [facility] Protein [Mass/Vol] 6.6 g/dL 6.4-8.2 [facility] Sodium [Moles/Vol] 136 mmol/L 136-145 [facility] Urea nitrogen [Mass/Vol] 21.0 mg/dL High 7.0-18.0 [facility] Urea nitrogen/Creatinine [Mass ratio] 16.4 mg/mg [facility] Laboratory - Hematology and Cell countson 05-10-2024 Immature granulocytes/100 WBC (Bld) 0.3 % 0.0-0.5 [facility] Laboratory - Specimen inform ationon 05-10-2024 Appearance (U) CLEAR CLEAR [facility] Color (U) LT. YELLOW YELLOW [facility] Laboratory - Urinalysison Leukocyte esterase Test strip Ql (U) SMALL Abnormal NEGATIVE [facility] Mucus Ql (Urine sed) NONE SEEN NONE SEEN [facility] Nitrite Ql (U) Negative NEGATIVE [facility] Protein Ql (U) Negative NEG/TRACE [facility] Leukocytes [#/volume] correc gely for nucleated erythrocytes in Blood by Automated counon 05-10-2024 WBC corrected for nucl RBC Auto (Bld) [#/Vol] 5.9 10 3/uL 4.0-11.0 [facility] Lymphocytes Auto (Bld) [#/Vo l]on 05-10-2024 Lymphocytes (Bld) [#/Vol] 1.8 10 3/uL 1.2-3.8 [facility] Lymphocytes/100 WBC Auto (Bl d)on 05-10-2024 Lymphocytes/100 WBC (Bld) 31.0 % 20.5-60.0 [facility] MCH Auto (RBC) [Entitic mass ]on 05-10-2024 MCH (RBC) [Entitic mass] 30.4 pg 26.7-34.0 [facility] MCHC Auto (RBC) [Mass/Vol]on 05-10-2024 MCHC (RBC) [Mass/Vol] 32.6 g/dL 29.9-35.2 [facility] MCV Auto (RBC) [Entitic vol] on 05-10-2024 MCV (RBC) [Entitic vol] 93.2 fL 81.0-99.0 [facility] Monocytes Auto (Bld) [#/Vol] on 05-10-2024 Monocytes (Bld) [#/Vol] 0.7 10 3/uL 0.3-0.8 [facility] Monocytes/100 WBC Auto (Bld) on 05-10-2024 Monocytes/100 WBC (Bld) 12.4 % High 1.7-12.0 [facility] Neutrophils Auto (Bld) [#/Vo l]on 05-10-2024 Neutrophils (Bld) [#/Vol] 2.8 10 3/uL 1.4-6.5 [facility] Neutrophils/100 WBC Auto (Bl d)on 05-10-2024 Neutrophils/100 WBC (Bld) 46.9 % 43.0-75.0 [facility] No Panel Informationon 05-10 Urine Bacteria TRACE #/HPF Abnormal NONE SEEN [facility] Urine Occult Blood TRACE-I NEGATIVE [facility] Urine Other Casts NONE SEEN #/LPF NONE SEEN [facility] Urine Other Crystals None Seen #/HPF None Seen [facility] Urine RBC 5-10 #/HPF Abnormal 0-2 [facility] Urine Squamous Epithelial Cells MODERATE #/LPF Abnormal NONE/RARE [facility] Urine WBC 0-2 #/HPF Abnormal NONE SEEN [facility] Eosinophils # (Auto) 0.4 10 3/uL 0.0-0.7 [facility] Immature Granulocyte # (Auto) 0.02 10 3/uL 0.00-0.03 [facility] Troponin I High Sensitivity 5.5 pg/mL 4.0-51.3 [facility] Comment on above: CUT-OFF POINTS HAVE BEEN [...] volume (Bld) [Entitic vol] 10.9 fL 9.5-13.5 [facility] Platelets Auto (Bld) [#/Vol] on 05-10-2024 Platelets (Bld) [#/Vol] 144 10 3/uL Low 150-450 [facility] Prothrombin time (PT)on PT Coag (PPP) [Time] 13.8 s High 9.0-11.6 [facility] RBC Auto (Bld) [#/Vol]on RBC (Bld) [#/Vol] 4.25 10 6/uL 4.20-5.40 [facility] Serum or plasma albumin/glob ulin mass ratioon 05-10-2024 Albumin/Globulin [Mass ratio] 1.1 {ratio} [facility] Serum or plasma anion gap de terminationon 05-10-2024 Anion gap [Moles/Vol] 9.9 mmol/L [facility] Office Visiton 05-01-2024 Follow-up visit [id number] Zoraida Barrios 1935 F Date Provider Department Center 05/01/2024 AALIYAH HENDERSON CRISTOBAL [facility] Family History Problem Relation Age of Onset Hypertension Mother Family Status - Relation Status Age at Mother Level of Service:28042 MS OFFICE/OUTPATIENT ESTABLISHED LOW MDM 20 MIN Normal [facility] Basophils/100 WBC Manual cnt (Bld)on 04-25-2024 Basophils/100 WBC (Bld) 0.0 % Low 0.2-2.0 [facility] Eosinophils/100 WBC Manual c nt (Bld)on 04-25-2024 Eosinophils/100 WBC (Bld) 4.0 % 0.9-7.0 [facility] Erythrocyte distribution wid th Auto (RBC) [Ratio]on 04-25-2024 Erythrocyte distribution width (RBC) [Ratio] 14.7 % 11.0-15.0 [facility] Estimated glomerular filtrat ion rate (GFR) non- Americanon 04-25-2024 GFR/1.73 sq M.predicted among non-blacks MDRD (S/P/Bld) [Vol rate/Area] 42 mL/min/{1.73_m2} Low >=60 [facility] Globulin Calc (S) [Mass/Vol] on 04-25-2024 Globulin (S) [Mass/Vol] 3.4 g/dL [facility] Hematocrit Auto (Bld) [Volum e fraction]on 04-25-2024 Hematocrit (Bld) [Volume fraction] 43.1 % 36.0-48.0 [facility] Hemoglobin [Mass/volume] in Bloodon 04-25-2024 Hemoglobin (Bld) [Mass/Vol] 13.8 g/dL 12.0-16.0 [facility] INR in Platelet poor plasma by Coagulation assayon 04-25-2024 INR Coag (PPP) [Relative time] 1.31 {INR} [facility] Comment on above: DESIRED INR:2.0-3.0 CONDITIONS NOT LISTED BELOW2.5-3.5 FOR PROSTHETIC HEART VALVE REPLACEMENT2.5-3.5 RECURRENT THROMBOSIS Laboratory - Chemistry and C hemistry - challengeon 04-25-2024 Albumin [Mass/Vol] 4.0 g/dL 3.4-5.0 [facility] ALP [Catalytic activity/Vol] 63 U/L 46-116 [facility] ALT [Catalytic activity/Vol] 18 U/L 14-59 [facility] AST [Catalytic activity/Vol] 14 U/L Low 15-37 [facility] Bilirubin [Mass/Vol] 0.7 mg/dL 0.2-1.0 [facility] Calcium [Mass/Vol] 9.6 mg/dL 8.5-10.1 [facility] Chloride [Moles/Vol] 104 mmol/L 98-107 [facility] CO2 [Moles/Vol] 29.2 mmol/L 21.0-32.0 [facility] Creatinine [Mass/Vol] 1.21 mg/dL High 0.55-1.02 [facility] GFR/1.73 sq M.predicted MDRD (S/P/Bld) [Vol rate/Area] 51 mL/min/{1.73_m2} Low >=60 [facility] Glucose [Mass/Vol] 136 mg/dL High 74-106 [facility] Natriuretic peptide B (Bld) [Mass/Vol] 201.0 pg/mL <=1800.0 [facility] Potassium [Moles/Vol] 3.9 mmol/L 3.5-5.1 [facility] Protein [Mass/Vol] 7.4 g/dL 6.4-8.2 [facility] Sodium [Moles/Vol] 139 mmol/L 136-145 [facility] Urea nitrogen [Mass/Vol] 27.0 mg/dL High 7.0-18.0 [facility] Urea nitrogen/Creatinine [Mass ratio] 22.3 mg/mg [facility] Laboratory - Hematology and Cell countson 04-25-2024 Band form neutrophils/100 WBC (Bld) 4.0 % 0-5 [facility] Lymphocytes/100 WBC (Bld) 15.0 % Low 20.5-60.0 [facility] Monocytes/100 WBC (Bld) 3.0 % 1.7-12.0 [facility] Leukocytes [#/volume] correc gely for nucleated erythrocytes in Blood by Automated counon 04-25-2024 WBC corrected for nucl RBC Auto (Bld) [#/Vol] 13.3 10 3/uL High 4.0-11.0 [facility] MCH Auto (RBC) [Entitic mass ]on 04-25-2024 MCH (RBC) [Entitic mass] 30.1 pg 26.7-34.0 [facility] MCHC Auto (RBC) [Mass/Vol]on 04-25-2024 MCHC (RBC) [Mass/Vol] 32.0 g/dL 29.9-35.2 [facility] MCV Auto (RBC) [Entitic vol] on 04-25-2024 MCV (RBC) [Entitic vol] 93.9 fL 81.0-99.0 [facility] No Panel Informationon 04-25 Troponin I High Sensitivity 6.5 pg/mL 4.0-51.3 [facility] Comment on above: CUT-OFF POINTS HAVE BEEN [...] Absolute Basophils (Manual) 0.00 10 3/uL 0.00-0.10 [facility] Band Neutrophils # (Manual) 0.5 10 3/uL High 0.0-0.3 [facility] Eosinophils # (Manual) 0.53 10 3/uL 0.00-0.70 [facility] Lymphocytes # (Manual) 1.99 10 3/uL 1.20-3.80 [facility] Monocytes # (Manual) 0.39 10 3/uL 0.30-0.80 [facility] Segmented Neutrophils # (Manual) 9.84 10 3/uL High 1.4-6.5 [facility] Platelet mean volume Auto (B ld) [Entitic vol]on 04-25-2024 Platelet mean volume (Bld) [Entitic vol] 10.4 fL 9.5-13.5 [facility] Platelets Auto (Bld) [#/Vol] on 04-25-2024 Platelets (Bld) [#/Vol] 145 10 3/uL Low 150-450 [facility] Prothrombin time (PT)on 04-08 PT Coag (PPP) [Time] 13.5 s High 9.0-11.6 [facility] RBC Auto (Bld) [#/Vol]on RBC (Bld) [#/Vol] 4.59 10 6/uL 4.20-5.40 [facility] Segmented neutrophils/100 WB C Manual cnt (Bld)on 04-25-2024 Segmented neutrophils/100 WBC (Bld) 74.0 % [facility] Serum or plasma albumin/glob ulin mass ratioon 04-25-2024 Albumin/Globulin [Mass ratio] 1.2 {ratio} [facility] Serum or plasma anion gap de terminationon 04-25-2024 Anion gap [Moles/Vol] 9.7 mmol/L [facility] Office Visiton 03-28-2024 Follow-up visit [id number] Zoraida Barrios 1935 F Date Provider Department Center 03/28/2024 120-AALIYAH POOLE CRISTOBAL [facility] Family History Problem Relation Age of Onset Hypertension Mother Family Status - Relation Status Age at Mother Level of Service:08221 MS OFFICE/OUTPATIENT ESTABLISHED LOW MDM 20 MIN Normal [facility] Office Visiton 01-08-2024 Follow-up visit [id number] Zoraida Barrios 1935 F Date Provider Department Center 01/08/2024 3848-HERMELINDA HUGO CRISTOBAL [facility] Family History Problem Relation Age of Onset Hypertension Mother Family Status - Relation Status Age at Mother Level of Service:17078 MS OFFICE/OUTPATIENT ESTABLISHED LOW MDM 20 MIN Reason for Visit and Comments: Follow-up [232763] Normal [facility] Basophils Auto (Bld) [#/Vol] on 12-28-2023 Basophils (Bld) [#/Vol] 0.2 10 3/uL 0.0-0.1 [facility] Basophils/100 WBC Auto (Bld) on 12-28-2023 Basophils/100 WBC (Bld) 3.4 % 0.2-2.0 [facility] Eosinophils/100 WBC Auto (Bl d)on 12-28-2023 Eosinophils/100 WBC (Bld) 6.2 % 0.9-7.0 [facility] Erythrocyte distribution wid th Auto (RBC) [Ratio]on 12-28-2023 Erythrocyte distribution width (RBC) [Ratio] 14.8 % 11.0-15.0 [facility] Estimated glomerular filtrat ion rate (GFR) non- Americanon 12-28-2023 GFR/1.73 sq M.predicted among non-blacks MDRD (S/P/Bld) [Vol rate/Area] 46 mL/min/{1.73_m2} >=60 [facility] Hematocrit Auto (Bld) [Volum e fraction]on 12-28-2023 Hematocrit (Bld) [Volume fraction] 42.9 % 36.0-48.0 [facility] Hemoglobin [Mass/volume] in Bloodon 12-28-2023 Hemoglobin (Bld) [Mass/Vol] 13.7 g/dL 12.0-16.0 [facility] Laboratory - Chemistry and C hemistry - challengeon 12-28-2023 Calcium [Mass/Vol] 9.7 mg/dL 8.5-10.1 [facility] Chloride [Moles/Vol] 106 mmol/L 98-107 [facility] CO2 [Moles/Vol] 26.1 mmol/L 21.0-32.0 [facility] Creatinine [Mass/Vol] 1.11 mg/dL 0.55-1.02 [facility] GFR/1.73 sq M.predicted MDRD (S/P/Bld) [Vol rate/Area] 56 mL/min/{1.73_m2} >=60 [facility] Glucose [Mass/Vol] 108 mg/dL 74-106 [facility] Potassium [Moles/Vol] 3.8 mmol/L 3.5-5.1 [facility] Sodium [Moles/Vol] 139 mmol/L 136-145 [facility] Urea nitrogen [Mass/Vol] 22.0 mg/dL 7.0-18.0 [facility] Urea nitrogen/Creatinine [Mass ratio] 19.8 mg/mg [facility] Laboratory - Hematology and Cell countson 12-28-2023 Immature granulocytes/100 WBC (Bld) 0.5 % 0.0-0.5 [facility] Leukocytes [#/volume] correc gely for nucleated erythrocytes in Blood by Automated counon 12-28-2023 WBC corrected for nucl RBC Auto (Bld) [#/Vol] 6.0 10 3/uL 4.0-11.0 [facility] Lymphocytes Auto (Bld) [#/Vo l]on 12-28-2023 Lymphocytes (Bld) [#/Vol] 2.1 10 3/uL 1.2-3.8 [facility] Lymphocytes/100 WBC Auto (Bl d)on 12-28-2023 Lymphocytes/100 WBC (Bld) 34.9 % 20.5-60.0 [facility] MCH Auto (RBC) [Entitic mass ]on 12-28-2023 MCH (RBC) [Entitic mass] 30.0 pg 26.7-34.0 [facility] MCHC Auto (RBC) [Mass/Vol]on 12-28-2023 MCHC (RBC) [Mass/Vol] 31.9 g/dL 29.9-35.2 [facility] MCV Auto (RBC) [Entitic vol] on 12-28-2023 MCV (RBC) [Entitic vol] 93.9 fL 81.0-99.0 [facility] Monocytes Auto (Bld) [#/Vol] on 12-28-2023 Monocytes (Bld) [#/Vol] 0.9 10 3/uL 0.3-0.8 [facility] Monocytes/100 WBC Auto (Bld) on 12-28-2023 Monocytes/100 WBC (Bld) 15.1 % 1.7-12.0 [facility] Neutrophils Auto (Bld) [#/Vo l]on 12-28-2023 Neutrophils (Bld) [#/Vol] 2.4 10 3/uL 1.4-6.5 [facility] Neutrophils/100 WBC Auto (Bl d)on 12-28-2023 Neutrophils/100 WBC (Bld) 39.9 % 43.0-75.0 [facility] No Panel Informationon 12-27 Eosinophils # (Auto) 0.4 10 3/uL 0.0-0.7 [facility] Immature Granulocyte # (Auto) 0.03 10 3/uL 0.00-0.03 [facility] Troponin I High Sensitivity 6.6 pg/mL 4.0-51.3 [facility] Comment on above: CUT-OFF POINTS HAVE BEEN [...] volume (Bld) [Entitic vol] 10.8 fL 9.5-13.5 [facility] Platelets Auto (Bld) [#/Vol] on 12-28-2023 Platelets (Bld) [#/Vol] 142 10 3/uL 150-450 [facility] RBC Auto (Bld) [#/Vol]on RBC (Bld) [#/Vol] 4.57 10 6/uL 4.20-5.40 [facility] Serum or plasma anion gap de terminationon 12-28-2023 Anion gap [Moles/Vol] 10.7 mmol/L [facility] Office Visiton 10-25-2023 Follow-up visit [id number] Zoraida Barrios 1935 F Date Provider Department Center 10/25/2023 [facility]AH [facility] Family History Problem Relation Age of Onset Hypertension Mother Family Status - Relation Status Age at Mother Level of Service:22271 MS OFFICE/OUTPATIENT ESTABLISHED LOW MDM 20 MIN Reason for Visit and Comments: Follow-up [[id number]] [facility] [facility] PROF CHEM 8 (BAS METB)on Anion gap [Moles/Vol] 12.5 mmol/L Normal Th [facility] [place] Comment on above: Performed By: #### B MP #### [facility] [address] [address] [address] Arden Magallon Calcium [Mass/Vol] 10.0 mg/dL Normal 8.5-10.1 [facility] Comment on above: Performed By: #### B MP #### [facility] [address] [address] [address] Arden Magallon Chloride [Moles/Vol] 105 mmol/L Normal 98-107 [facility] Comment on above: Performed By: #### B MP #### [facility] [address] [address] [address] Arden Magallon CO2 [Moles/Vol] 29.9 mmol/L Normal 21.0-32.0 [facility] Comment on above: Performed By: #### B MP #### [facility] [address] [address] [address] Arden Magallon Creatinine [Mass/Vol] 1.26 mg/dL Critically high 0.55-1.02 [facility] Comment on above: Performed By: #### B MP #### [facility] [address] [address] [address] Arden Magallon EGFR-AF CROATIAN 49 mL/min/1.73m2 Critically low >=60 [facility] Comment on above: Performed By: #### B MP #### [facility] [address] [address] [address] Arden Magallon EGFR-NON AF CROATIAN 40 mL/min/1.73m2 Critically low >=60 [facility] Comment on above: Performed By: #### B MP #### [facility] [address] [address] [address] Arden Magallon Glucose [Mass/Vol] 108 mg/dL Critically high 74-106 [facility] [place] Comment on above: Performed By: #### B MP #### [facility] [address] [address] [address] Arden Magallon Potassium [Moles/Vol] 3.4 mmol/L Critically low 3.5-5.1 [facility] Comment on above: Performed By: #### B MP #### [facility] [address] [place] [address] Dr. Arden Magallon Sodium [Moles/Vol] 144 mmol/L Normal 136-145 [facility] Comment on above: Performed By: #### B MP #### [facility] [address] [place] [address] Dr. Arden Magallon Urea nitrogen [Mass/Vol] 28.0 mg/dL Critically high 7.0-18.0 [facility] Comment on above: Performed By: #### B MP #### [facility] [address] [place] [address] Dr. Arden Magallon Urea nitrogen/Creatinine [Mass ratio] 22.2 mg/mg Normal [facility] Comment on above: Performed By: #### B MP #### [facility] [address] [place] [address] Dr. Arden Magallon CARDIAC CINDY 3-6on 2 CK [Catalytic activity/Vol] 27 U/L Normal 26-192 [facility] Comment on above: Performed By: #### B MP #### [facility] [address] [place] [address] Dr. Arden Magallon CK.MB [Mass/Vol] 0.84 ng/mL Normal <=3.60 [facility] Comment on above: Performed By: #### B MP #### [facility] [address] [place] [address] Dr. Arden Magallon HSTROP 12.4 pg/mL Normal 4.0-51.3 The [facility] Comment on above: Result Comment: CUT- OFF POINTS HAVE BEEN ESTABLISHED BASED ON THE FOURTH UNIVERSAL DEFINITIONS OF MYOCARDIAL INFARCTION. THE UPPER REFERENCE LIMIT (URL) OF TROPONIN, DEFINED THE 99TH PERCENTILE OF cTnI DISTRIBUTION IN A REFERENCE POPULATION, HAS BEEN CONFIRMED THE DECISION THRESHOLD FOR [place] DIAGNOSIS. Performed By: #### B MP #### [facility] [address] [place] [address] Dr. Arden Magallon CARDIAC CINDY ADMITon 022 CK [Catalytic activity/Vol] 42 U/L Normal 26-192 [facility] Comment on above: Performed By: #### B MP #### [facility] [address] [place] [address] Dr. Arden Magallon CK.MB [Mass/Vol] 0.82 ng/mL Normal <=3.60 [facility] Comment on above: Performed By: #### B MP #### [facility] [address] [place] [address] Dr. Arden Magallon HSTROP 9.8 pg/mL Normal 4.0-51.3 The [facility] Comment on above: Result Comment: CUT- OFF POINTS HAVE BEEN ESTABLISHED BASED ON THE FOURTH UNIVERSAL DEFINITIONS OF MYOCARDIAL INFARCTION. THE UPPER REFERENCE LIMIT (URL) OF TROPONIN, DEFINED THE 99TH PERCENTILE OF cTnI DISTRIBUTION IN A REFERENCE POPULATION, HAS BEEN CONFIRMED THE DECISION THRESHOLD FOR [place] DIAGNOSIS. Performed By: #### B MP #### [facility] [address] [place] [address] Dr. Arden Magallon IKE 50 ng/mL Normal 9-82 The [facility] Comment on above: Performed By: #### B MP #### [facility] [address] [place] [address] Dr. Arden Magallon CBC AUTO DIFFon 09-30-2022 BASO # 0.2 103/ul Critically high 0.0-0.1 [facility] Comment on above: Performed By: #### C BC #### [facility] [address] [place] [address] Dr. Arden Magallon Basophils/100 WBC (Bld) 2.2 % Critically high 0.2-2.0 The [facility] Comment on above: Performed By: #### C BC #### [facility] [address] [place] [address] Dr. Arden Magallon EO # 1.3 103/ul Critically high 0.0-0.7 [facility] Comment on above: Performed By: #### C BC #### [facility] [address] [place] [address] Dr. Arden Magallon Eosinophils/100 WBC (Bld) 16.5 % Critically high 0.9-7.0 [facility] Comment on above: Performed By: #### C BC #### [facility] [address] [place] [address] Dr. Arden Magallon Erythrocyte distribution width (RBC) [Ratio] 14.3 % Normal 11.0-15.0 [facility] Comment on above: Performed By: #### C BC #### [facility] [address] [place] [address] Dr. Arden Magallon Hematocrit (Bld) [Volume fraction] 38.3 % Normal 36.0-48.0 [facility] Comment on above: Performed By: #### C BC #### [facility] [address] [place] [address] Dr. Arden Magallon Hemoglobin (Bld) [Mass/Vol] 12.6 g/dL Normal 12.0-16.0 [facility] Comment on above: Performed By: #### C BC #### [facility] [address] [place] [address] Dr. Arden Magallon IG # 0.03 10e3/ul Normal 0.00-0.03 [facility] Comment on above: Performed By: #### C BC #### [facility] [address] [place] [address] Dr. Arden Magallon IG % 0.4 % Normal 0.0-0.5 [facility] Comment on above: Performed By: #### C BC #### [facility] [address] [place] [address] Dr. Arden Magallon LYMPH # 2.4 103/ul Normal 1.2-3.8 The [facility] Comment on above: Performed By: #### C BC #### [facility] [address] [place] [address] Dr. Arden Magallon Lymphocytes/100 WBC (Bld) 30.0 % Normal 20.5-60.0 [facility] Comment on above: Performed By: #### C BC #### [facility] [address] [place] [address] Dr. Arden Magallon MANUAL DIFF REQ NO Normal [facility] Comment on above: Performed By: #### C BC #### [facility] [address] [place] [address] Dr. Arden Magallon MCH (RBC) [Entitic mass] 30.7 pg Normal 26.7-34.0 [facility] Comment on above: Performed By: #### C BC #### [facility] [address] [place] [address] Dr. Arden Magallon MCHC (RBC) [Mass/Vol] 32.9 g/dL Normal 29.9-35.2 [facility] Comment on above: Performed By: #### C BC #### [facility] [address] [place] [address] Dr. Arden Magallon MCV (RBC) [Entitic vol] 93.4 fL Normal 81.0-99.0 [facility] Comment on above: Performed By: #### C BC #### [facility] [address] [place] [address] Dr. Arden Magallon MONO # 1.1 103/ul Critically high 0.3-0.8 [facility] Comment on above: Performed By: #### C BC #### [facility] [address] [place] [address] Dr. Arden Magallon Monocytes/100 WBC (Bld) 14.2 % Critically high 1.7-12.0 [facility] Comment on above: Performed By: #### C BC #### [facility] [address] [place] [address] Dr. Arden Magallon NEUT # 2.9 103/ul Normal 1.4-6.5 The [facility] Comment on above: Performed By: #### C BC #### [facility] [address] [place] [address] Dr. Arden Magallon Neutrophils/100 WBC (Bld) 36.7 % Critically low 43.0-75.0 [facility] Comment on above: Performed By: #### C BC #### [facility] [address] [place] [address] Dr. Arden Magallon Platelet mean volume (Bld) [Entitic vol] 11.4 fL Normal 9.5-13.5 [facility] Comment on above: Performed By: #### C BC #### [facility] [address] [place] [address] Dr. Arden Magallon PLT 162 103/ul Normal 150-450 [facility] Comment on above: Performed By: #### C BC #### [facility] [address] [place] [address] Dr. Arden Magallon RBC 4.10 106/ul Critically low 4.20-5.40 [facility] Comment on above: Performed By: #### C BC #### [facility] [address] [place] [address] Dr. Arden Magallon WBC 8.0 103/ul Normal 4.0-11.0 [facility] Comment on above: Performed By: #### C BC #### [facility] [address] [place] [address] Dr. Arden Magallon PROF CHEM 8 (BAS METB)on Anion gap [Moles/Vol] 11.8 mmol/L Normal [facility] Comment on above: Performed By: #### B MP #### [facility] [address] [place] [address] Dr. Arden Magallon Calcium [Mass/Vol] 9.7 mg/dL Normal 8.5-10.1 [facility] Comment on above: Performed By: #### B MP #### [facility] [address] [place] [address] Dr. Arden Magallon Chloride [Moles/Vol] 105 mmol/L Normal 98-107 [facility] Comment on above: Performed By: #### B MP #### [facility] [address] [place] [address] Dr. Arden Magallon CO2 [Moles/Vol] 25.0 mmol/L Normal 21.0-32.0 [facility] Comment on above: Performed By: #### B MP #### [facility] [address] [place] [address] Dr. Arden Magallon Creatinine [Mass/Vol] 1.07 mg/dL Critically high 0.55-1.02 [facility] Comment on above: Performed By: #### B MP #### [facility] [address] [address] [address] Arden Magallon EGFR-AF CROATIAN 59 mL/min/1.73m2 Critically low >=60 [facility] Comment on above: Performed By: #### B MP #### [facility] [address] [address] [address] Arden Magallon EGFR-NON AF CROATIAN 49 mL/min/1.73m2 Critically low >=60 [facility] Comment on above: Performed By: #### B MP #### [facility] [address] [address] [address] Arden Magallon Glucose [Mass/Vol] 106 mg/dL Normal 74-106 [facility] Comment on above: Performed By: #### B MP #### [facility] [address] [address] [address] Arden Magallon Potassium [Moles/Vol] 3.8 mmol/L Normal 3.5-5.1 [facility] Comment on above: Performed By: #### B MP #### [facility] [address] [place] [address] Dr. Arden Magallon Sodium [Moles/Vol] 138 mmol/L Normal 136-145 [facility] Comment on above: Performed By: #### B MP #### [facility] [address] [address] [address] Arden Magallon Urea nitrogen [Mass/Vol] 18.0 mg/dL Normal 7.0-18.0 [facility] Comment on above: Performed By: #### B MP #### [facility] [address] [address] [address] Arden Magallon Urea nitrogen/Creatinine [Mass ratio] 16.8 mg/mg Normal [facility] Comment on above: Performed By: #### B MP #### [facility] [address] [address] [address] Arden Magallon CBC AUTO DIFFon 09-26-2022 BASO # 0.2 103/ul Critically high 0.0-0.1 [facility] Comment on above: Performed By: #### C BC #### [facility] [address] [place] [address] Dr. Arden Magallon Basophils/100 WBC (Bld) 2.1 % Critically high 0.2-2.0 [facility] Comment on above: Performed By: #### C BC #### [facility] [address] [place] [address] Dr. Arden Magallon EO # 1.5 103/ul Critically high 0.0-0.7 [facility] Comment on above: Performed By: #### C BC #### [facility] [address] [place] [address] Dr. Arden Magallon Eosinophils/100 WBC (Bld) 16.6 % Critically high 0.9-7.0 [facility] Comment on above: Performed By: #### C BC #### [facility] [address] [place] [address] Dr. Arden Magallon Erythrocyte distribution width (RBC) [Ratio] 14.1 % Normal 11.0-15.0 [facility] Comment on above: Performed By: #### C BC #### [facility] [address] [place] [address] Dr. Arden Magallon Hematocrit (Bld) [Volume fraction] 37.7 % Normal 36.0-48.0 [facility] Comment on above: Performed By: #### C BC #### [facility] [address] [place] [address] Dr. Arden Magallon Hemoglobin (Bld) [Mass/Vol] 12.5 g/dL Normal 12.0-16.0 [facility] Comment on above: Performed By: #### C BC #### [facility] [address] [place] [address] Dr. Arden Magallon IG # 0.04 10e3/ul Critically high 0.00-0.03 [facility] Comment on above: Performed By: #### C BC #### [facility] [address] [place] [address] Dr. Arden Magallon IG % 0.4 % Normal 0.0-0.5 [facility] Comment on above: Performed By: #### C BC #### [facility] [address] [place] [address] Dr. Arden Magallon LYMPH # 1.8 103/ul Normal 1.2-3.8 [facility] Comment on above: Performed By: #### C BC #### [facility] [address] [place] [address] Dr. Arden Magallon Lymphocytes/100 WBC (Bld) 19.6 % Critically low 20.5-60.0 [facility] Comment on above: Performed By: #### C BC #### [facility] [address] [place] [address] Dr. Arden Magallon MANUAL DIFF REQ NO Normal [facility] Comment on above: Performed By: #### C BC #### [facility] [address] [place] [address] Dr. Arden Magallon MCH (RBC) [Entitic mass] 31.1 pg Normal 26.7-34.0 [facility] Comment on above: Performed By: #### C BC #### [facility] [address] [place] [address] Dr. Arden Magallon MCHC (RBC) [Mass/Vol] 33.2 g/dL Normal 29.9-35.2 [facility] Comment on above: Performed By: #### C BC #### [facility] [address] [place] [address] Dr. Arden Magallon MCV (RBC) [Entitic vol] 93.8 fL Normal 81.0-99.0 [facility] Comment on above: Performed By: #### C BC #### [facility] [address] [place] [address] Dr. Arden Magallon MONO # 1.1 103/ul Critically high 0.3-0.8 [facility] Comment on above: Performed By: #### C BC #### [facility] [address] [place] [address] Dr. Arden Magallon Monocytes/100 WBC (Bld) 12.1 % Critically high 1.7-12.0 [facility] Comment on above: Performed By: #### C BC #### [facility] [address] [address] [address] Arden Magallon NEUT # 4.6 103/ul Normal 1.4-6.5 [facility] Comment on above: Performed By: #### C BC #### [facility] [address] [address] [address] Arden Magallon Neutrophils/100 WBC (Bld) 49.2 % Normal 43.0-75.0 [facility] Comment on above: Performed By: #### C BC #### [facility] [address] [address] [address] Arden Magallon Platelet mean volume (Bld) [Entitic vol] 10.8 fL Normal 9.5-13.5 [facility] Comment on above: Performed By: #### C BC #### [facility] [address] [place] [address] Dr. Arden Magallon PLT 149 103/ul Critically low 150-450 [facility] Comment on above: Performed By: #### C BC #### [facility] [address] [address] [address] Arden Magallon RBC 4.02 106/ul Critically low 4.20-5.40 [facility] Comment on above: Performed By: #### C BC #### [facility] [address] [place] [address] Dr. Arden Magallon WBC 9.3 103/ul Normal 4.0-11.0 [facility] Comment on above: Performed By: #### C BC #### [facility] [address] [place] [address] Dr. Arden Magallon Covid-19 PCR ([facility])on 09-08 SARS-CoV-2 (COVID-19) RNA ISABELLA+probe Ql (Unsp spec) Not detected Normal NOT DETECTED The [facility] Comment on above: Result Comment: This test is not yet approved or cleared by the [place] FDA. When there are no FDA-approved or cleared tests available, and other criteria are met, FDA can make tests available under an emergency access mechanism called an Emergency Use Authorization (EUA). The EUA for this test is supported by the Hitch Technician of Health and Human Service's (HHS's) declaration [...] SARS-CoV-2. Performed By: #### C BC #### [facility] [address] [place] [address] Dr. Arden Magallon INFLUENZA A AND B [facility] 09-26 [facility] SEE BELOW Normal [facility] Comment on above: Result Comment: Nega tive for Flu A protein angiten. Infection due to Flu A cannot be ruled out. Flu A angiten in the sample may be below the detection limit of the test. Performed By: #### C BC #### [facility] [address] [place] [address] Dr. Arden Magall[facility] Normal [facility] Comment on above: Result Comment: Nega tive for Flu B protein antigen. Infection due to Flu B cannot be ruled out. Flu B antigen in the sample may be below the detection limit of the test. Performed By: #### C BC #### [facility] [address] [place] [address] Dr. Arden Magallon INFLUENZA A AG Negative Normal NEGATIVE SEE COMMENT [facility] Comment on above: Performed By: #### C BC #### [facility] [address] [place] [address] Dr. Arden Magallon INFLUENZA B AG Negative Normal NEGATIVE SEE COMMENT [facility] Comment on above: Performed By: #### C BC #### [facility] [address] [place] [address] Dr. Arden Magallon INTERNAL CONTROLS Within Normal Limits Normal Wi thin Normal Limits [facility] Comment on above: Performed By: #### C BC #### [facility] [address] [address] [address] Arden Magallon PROF CHEM 8 (BAS METB)on Anion gap [Moles/Vol] 10.8 mmol/L Normal Th [facility] [place] Comment on above: Performed By: #### P T, DDIM #### [facility] [address] [place] [address] Dr. Arden Magallon Calcium [Mass/Vol] 9.3 mg/dL Normal 8.5-10.1 [facility] Comment on above: Performed By: #### P T, DDIM #### [facility] [address] [place] [address] Dr. Arden Magallon Chloride [Moles/Vol] 107 mmol/L Normal 98-107 [facility] Comment on above: Performed By: #### P T, DDIM #### [facility] [address] [place] [address] Dr. Arden Magallon CO2 [Moles/Vol] 28.0 mmol/L Normal 21.0-32.0 [facility] Comment on above: Performed By: #### P T, DDIM #### [facility] [address] [place] [address] Dr. Arden Magallon Creatinine [Mass/Vol] 0.98 mg/dL Normal 0.55-1.02 [facility] Comment on above: Performed By: #### P T, DDIM #### [facility] [address] [place] [address] Dr. Arden Magallon EGFR-AF CROATIAN >60 Normal >=60 [facility] Comment on above: Performed By: #### P T, DDIM #### [facility] [address] [place] [address] Dr. Arden Magallon EGFR-NON AF CROATIAN 54 mL/min/1.73m2 Critically low >=60 [facility] Comment on above: Performed By: #### P T, DDIM #### [facility] [address] [place] [address] Dr. Arden Magallon Glucose [Mass/Vol] 111 mg/dL Critically high 74-106 [facility] Comment on above: Performed By: #### P T, DDIM #### [facility] [address] [address] [address] Arden Magallon Potassium [Moles/Vol] 3.8 mmol/L Normal 3.5-5.1 [facility] Comment on above: Performed By: #### P T, DDIM #### [facility] [address] [address] [address] Arden Magallon Sodium [Moles/Vol] 142 mmol/L Normal 136-145 [facility] Comment on above: Performed By: #### P T, DDIM #### [facility] [address] [place] [address] Dr. Arden Magallon Urea nitrogen [Mass/Vol] 15.0 mg/dL Normal 7.0-18.0 [facility] Comment on above: Performed By: #### P T, DDIM #### [facility] [address] [place] [address] Dr. Arden Magallon Urea nitrogen/Creatinine [Mass ratio] 15.3 mg/mg Normal [facility] Comment on above: Performed By: #### P T, DDIM #### [facility] [address] [place] [address] Dr. Arden Magallon XR CHEST 1 Von [...] by: HARJINDER RAMIREZ Date: 2022-09-26 10:22 Normal [facility] CBC AUTO DIFFon 09-21-2022 BASO # 0.2 103/ul Critically high 0.0-0.1 [facility] Comment on above: Performed By: #### C BC #### [facility] [address] [address] [address] Arden Magallon Basophils/100 WBC (Bld) 2.0 % Normal 0.2-2.0 [facility] Comment on above: Performed By: #### C BC #### [facility] [address] [address] [address] Arden Magallon EO # 0.8 103/ul Critically high 0.0-0.7 [facility] Comment on above: Performed By: #### C BC #### The [facility] [address] [place] [address] Dr. Arden Magallon Eosinophils/100 WBC (Bld) 9.7 % Critically high 0.9-7.0 [facility] Comment on above: Performed By: #### C BC #### [facility] [address] [place] [address] Dr. Arden Magallon Erythrocyte distribution width (RBC) [Ratio] 14.2 % Normal 11.0-15.0 [facility] Comment on above: Performed By: #### C BC #### [facility] [address] [place] [address] Dr. Arden Magallon Hematocrit (Bld) [Volume fraction] 39.2 % Normal 36.0-48.0 [facility] Comment on above: Performed By: #### C BC #### [facility] [address] [place] [address] Dr. Arden Magallon Hemoglobin (Bld) [Mass/Vol] 12.7 g/dL Normal 12.0-16.0 [facility] Comment on above: Performed By: #### C BC #### [facility] [address] [place] [address] Dr. Arden Magallon IG # 0.04 10e3/ul Critically high 0.00-0.03 [facility] Comment on above: Performed By: #### C BC #### [facility] [address] [place] [address] Dr. Arden Magallon IG % 0.5 % Normal 0.0-0.5 [facility] Comment on above: Performed By: #### C BC #### [facility] [address] [place] [address] Dr. Arden Magallon LYMPH # 1.7 103/ul Normal 1.2-3.8 [facility] Comment on above: Performed By: #### C BC #### [facility] [address] [place] [address] Dr. Arden Magallon Lymphocytes/100 WBC (Bld) 19.2 % Critically low 20.5-60.0 [facility] Comment on above: Performed By: #### C BC #### [facility] [address] [place] [address] Dr. Arden Magallon MANUAL DIFF REQ NO Normal [facility] Comment on above: Performed By: #### C BC #### [facility] [address] [place] [address] Dr. Arden Magallon MCH (RBC) [Entitic mass] 31.1 pg Normal 26.7-34.0 [facility] Comment on above: Performed By: #### C BC #### [facility] [address] [place] [address] Dr. Arden Magallon MCHC (RBC) [Mass/Vol] 32.4 g/dL Normal 29.9-35.2 [facility] Comment on above: Performed By: #### C BC #### [facility] [address] [place] [address] Dr. Arden Magallon MCV (RBC) [Entitic vol] 96.1 fL Normal 81.0-99.0 [facility] Comment on above: Performed By: #### C BC #### [facility] [address] [place] [address] Dr. Arden Magallon MONO # 0.8 103/ul Normal 0.3-0.8 [facility] Comment on above: Performed By: #### C BC #### [facility] [address] [place] [address] Dr. Arden Magallon Monocytes/100 WBC (Bld) 9.5 % Normal 1.7-12.0 [facility] Comment on above: Performed By: #### C BC #### [facility] [address] [address] [address] Arden Magallon NEUT # 5.2 103/ul Normal 1.4-6.5 [facility] Comment on above: Performed By: #### C BC #### [facility] [address] [address] [address] Arden Magallon Neutrophils/100 WBC (Bld) 59.1 % Normal 43.0-75.0 [facility] Comment on above: Performed By: #### C BC #### [facility] [address] [place] [address] Dr. Arden Magallon Platelet mean volume (Bld) [Entitic vol] 11.0 fL Normal 9.5-13.5 [facility] Comment on above: Performed By: #### C BC #### [facility] [address] [place] [address] Dr. Arden Magallon PLT 167 103/ul Normal 150-450 [facility] Comment on above: Performed By: #### C BC #### [facility] [address] [place] [address] Dr. Arden Magallon RBC 4.08 106/ul Critically low 4.20-5.40 [facility] Comment on above: Performed By: #### C BC #### [facility] [address] [place] [address] Dr. Arden Magallon WBC 8.7 103/ul Normal 4.0-11.0 [facility] Comment on above: Performed By: #### C BC #### [facility] [address] [place] [address] Dr. Arden Magallon PROF CHEM 8 (BAS METB)on Anion gap [Moles/Vol] 10.4 mmol/L Normal [facility] Comment on above: Performed By: #### B MP #### [facility] [address] [place] [address] Dr. Arden Magallon Calcium [Mass/Vol] 9.9 mg/dL Normal 8.5-10.1 [facility] Comment on above: Performed By: #### B MP #### [facility] [address] [address] [address] Arden Magallon Chloride [Moles/Vol] 104 mmol/L Normal 98-107 [facility] Comment on above: Performed By: #### B MP #### [facility] [address] [address] [address] Arden Magallon CO2 [Moles/Vol] 28.0 mmol/L Normal 21.0-32.0 [facility] Comment on above: Performed By: #### B MP #### [facility] [address] [address] [address] Arden Magallon Creatinine [Mass/Vol] 1.20 mg/dL Critically high 0.55-1.02 [facility] Comment on above: Performed By: #### B MP #### [facility] [address] [address] [address] Arden Magallon EGFR-AF CROATIAN 52 mL/min/1.73m2 Critically low >=60 [facility] Comment on above: Performed By: #### B MP #### [facility] [address] [address] [address] Arden Magallon EGFR-NON AF CROATIAN 43 mL/min/1.73m2 Critically low >=60 [facility] Comment on above: Performed By: #### B MP #### [facility] [address] [address] [address] Arden Magallon Glucose [Mass/Vol] 133 mg/dL Critically high 74-106 [facility] Comment on above: Performed By: #### B MP #### [facility] [address] [address] [address] Arden Magallon Potassium [Moles/Vol] 3.4 mmol/L Critically low 3.5-5.1 [facility] Comment on above: Performed By: #### B MP #### [facility] [address] [address] [address] Arden Magallon Sodium [Moles/Vol] 139 mmol/L Normal 136-145 [facility] Comment on above: Performed By: #### B MP #### [facility] [address] [place] [address] Dr. Arden Magallon Urea nitrogen [Mass/Vol] 19.0 mg/dL Critically high 7.0-18.0 [facility] Comment on above: Performed By: #### B MP #### [facility] [address] [place] [address] Dr. Arden Magallon Urea nitrogen/Creatinine [Mass ratio] 15.8 mg/mg Normal The [facility] Comment on above: Performed By: #### B MP #### [facility] [address] [place] [address] Dr. Arden Magallon TSHon 09-21-2022 TSH 1.918 uIU/mL Normal 0.358-3.740 [facility] Comment on above: Performed By: #### B MP #### [facility] [address] [place] [address] Dr. Arden Magallon BNPon 09-18-2022 Natriuretic peptide B (Bld) [Mass/Vol] 366.0 pg/mL Normal <=1,800.0 [facility] Comment on above: Performed By: #### B MANAGER PHILOSOPHY, CMP #### [facility] [address] [place] [address] Dr. Arden Magallon CBC AUTO DIFFon 09-18-2022 BASO # 0.1 103/ul Normal 0.0-0.1 [facility] Comment on above: Performed By: #### C BC #### [facility] [address] [place] [address] Dr. Arden Magallon Basophils/100 WBC (Bld) 1.7 % Normal 0.2-2.0 The [facility] Comment on above: Performed By: #### C BC #### [facility] [address] [place] [address] Dr. Arden Magallon EO # 0.7 103/ul Normal 0.0-0.7 [facility] Comment on above: Performed By: #### C BC #### [facility] [address] [place] [address] Dr. Arden Magallon Eosinophils/100 WBC (Bld) 9.1 % Critically high 0.9-7.0 [facility] Comment on above: Performed By: #### C BC #### [facility] [address] [place] [address] Dr. Arden Magallon Erythrocyte distribution width (RBC) [Ratio] 14.4 % Normal 11.0-15.0 [facility] Comment on above: Performed By: #### C BC #### [facility] [address] [place] [address] Dr. Arden Magallon Hematocrit (Bld) [Volume fraction] 39.0 % Normal 36.0-48.0 [facility] Comment on above: Performed By: #### C BC #### [facility] [address] [place] [address] Dr. Arden Magallon Hemoglobin (Bld) [Mass/Vol] 12.8 g/dL Normal 12.0-16.0 [facility] Comment on above: Performed By: #### C BC #### [facility] [address] [place] [address] Dr. Arden Magallon IG # 0.02 10e3/ul Normal 0.00-0.03 [facility] Comment on above: Performed By: #### C BC #### [facility] [address] [place] [address] Dr. Arden Magallon IG % 0.3 % Normal 0.0-0.5 [facility] Comment on above: Performed By: #### C BC #### [facility] [address] [place] [address] Dr. Arden Magallon LYMPH # 1.8 103/ul Normal 1.2-3.8 The [facility] Comment on above: Performed By: #### C BC #### [facility] [address] [place] [address] Dr. Arden Magallon Lymphocytes/100 WBC (Bld) 23.6 % Normal 20.5-60.0 [facility] Comment on above: Performed By: #### C BC #### [facility] [address] [place] [address] Dr. Arden Magallon MANUAL DIFF REQ NO Normal [facility] Comment on above: Performed By: #### C BC #### [facility] [address] [address] [address] Arden Magallon MCH (RBC) [Entitic mass] 31.0 pg Normal 26.7-34.0 [facility] Comment on above: Performed By: #### C BC #### [facility] [address] [place] [address] Dr. Arden Magallon MCHC (RBC) [Mass/Vol] 32.8 g/dL Normal 29.9-35.2 [facility] Comment on above: Performed By: #### C BC #### [facility] [address] [place] [address] Dr. Arden Magallon MCV (RBC) [Entitic vol] 94.4 fL Normal 81.0-99.0 [facility] Comment on above: Performed By: #### C BC #### [facility] [address] [place] [address] Dr. Arden Magallon MONO # 1.1 103/ul Critically high 0.3-0.8 [facility] Comment on above: Performed By: #### C BC #### [facility] [address] [place] [address] Dr. Arden Magallon Monocytes/100 WBC (Bld) 15.2 % Critically high 1.7-12.0 [facility] Comment on above: Performed By: #### C BC #### [facility] [address] [place] [address] Dr. Arden Magallon NEUT # 3.8 103/ul Normal 1.4-6.5 The [facility] Comment on above: Performed By: #### C BC #### [facility] [address] [place] [address] Dr. Arden Magallon Neutrophils/100 WBC (Bld) 50.1 % Normal 43.0-75.0 The [facility] Comment on above: Performed By: #### C BC #### [facility] [address] [place] [address] Dr. Arden Magallon Platelet mean volume (Bld) [Entitic vol] 11.0 fL Normal 9.5-13.5 [facility] Comment on above: Performed By: #### C BC #### [facility] [address] [address] [address] Arden Magallon PLT 149 103/ul Critically low 150-450 [facility] Comment on above: Performed By: #### C BC #### [facility] [address] [id number] [address] Arden Magallon RBC 4.13 106/ul Critically low 4.20-5.40 [facility] Comment on above: Performed By: #### C BC #### [facility] [address] [address] [address] Arden Magallon WBC 7.5 103/ul Normal 4.0-11.0 [facility] Comment on above: Performed By: #### C BC #### [facility] [address] [place] [address] Dr. Arden Magallon D-DIMERon 09-18-2022 D-DIMER 0.32 mg/L FEU Normal <=0.59 [facility] Comment on above: Performed By: #### P T, DDIM #### [facility] [address] [place] [address] Dr. Arden Magallon D-DIMER COMMENTS SEE BELOW Normal [facility] Comment on above: Result Comment: Incr eases [...] Performed By: #### P T, DDIM #### [facility] [address] [place] [address] Dr. Arden Magallon PROF 14(COMP METB)on 022 Albumin [Mass/Vol] 3.5 g/dL Normal 3.4-5.0 [facility] Comment on above: Performed By: #### B MANAGER PHILOSOPHY, CMP #### [facility] [address] [address] [address] Arden Magallon Albumin/Globulin [Mass ratio] 1.2 {ratio} Normal [facility] Comment on above: Performed By: #### B MANAGER PHILOSOPHY, CMP #### [facility] [address] [address] [address] Arden Magallon ALP [Catalytic activity/Vol] 57 U/L Normal 46-116 [facility] Comment on above: Performed By: #### B MANAGER PHILOSOPHY, CMP #### [facility] [address] [address] [address] Arden Magallon ALT [Catalytic activity/Vol] 16 U/L Normal 14-59 [facility] Comment on above: Performed By: #### B MANAGER PHILOSOPHY, CMP #### [facility] [address] [place] [address] Dr. Arden Magallon Anion gap [Moles/Vol] 9.1 mmol/L Normal [facility] Comment on above: Performed By: #### B MANAGER PHILOSOPHY, CMP #### [facility] [address] [place] [address] Dr. Arden Magallon AST [Catalytic activity/Vol] 17 U/L Normal 15-37 [facility] Comment on above: Performed By: #### B MANAGER PHILOSOPHY, CMP #### [facility] [address] [place] [address] Dr. Arden Magallon Bilirubin [Mass/Vol] 0.3 mg/dL Normal 0.2-1.0 [facility] Comment on above: Performed By: #### B MANAGER PHILOSOPHY, CMP #### [facility] [address] [address] [address] Arden Magallon Calcium [Mass/Vol] 9.6 mg/dL Normal 8.5-10.1 [facility] Comment on above: Performed By: #### B MANAGER PHILOSOPHY, CMP #### [facility] [address] [address] [address] Arden Magallon Chloride [Moles/Vol] 106 mmol/L Normal 98-107 [facility] Comment on above: Performed By: #### B MANAGER PHILOSOPHY, CMP #### [facility] [address] [address] [address] Arden Magallon CO2 [Moles/Vol] 24.9 mmol/L Normal 21.0-32.0 [facility] Comment on above: Performed By: #### B MANAGER PHILOSOPHY, CMP #### [facility] [address] [address] [address] Arden Magallon Creatinine [Mass/Vol] 1.06 mg/dL Critically high 0.55-1.02 [facility] Comment on above: Performed By: #### B MANAGER PHILOSOPHY, CMP #### [facility] [address] [address] [address] Arden Magallon EGFR-AF CROATIAN =60 Normal >=60 [facility] Comment on above: Performed By: #### B MANAGER PHILOSOPHY, CMP #### [facility] [address] [address] [address] Arden Magallon EGFR-NON AF CROATIAN 49 mL/min/1.73m2 Critically low >=60 [facility] Comment on above: Performed By: #### B MANAGER PHILOSOPHY, CMP #### [facility] [address] [address] [address] Arden Magallon Globulin (S) [Mass/Vol] 3.0 g/dL Normal [facility] Comment on above: Performed By: #### B MANAGER PHILOSOPHY, CMP #### [facility] [address] [address] [address] Arden Magallon Glucose [Mass/Vol] 111 mg/dL Critically high 74-106 [facility] Comment on above: Performed By: #### B MANAGER PHILOSOPHY, CMP #### [facility] [address] [address] [address] Arden Magallon Potassium [Moles/Vol] 4.0 mmol/L Normal 3.5-5.1 [facility] Comment on above: Performed By: #### B MANAGER PHILOSOPHY, CMP #### [facility] [address] [address] [address] Arden Magallon Protein [Mass/Vol] 6.5 g/dL Normal 6.4-8.2 [facility] Comment on above: Performed By: #### B MANAGER PHILOSOPHY, CMP #### [facility] [address] [address] [address] Arden Magallon Sodium [Moles/Vol] 136 mmol/L Normal 136-145 [facility] Comment on above: Performed By: #### B MANAGER PHILOSOPHY, CMP #### [facility] [address] [address] [address] Arden Magallon Urea nitrogen [Mass/Vol] 16.0 mg/dL Normal 7.0-18.0 [facility] Comment on above: Performed By: #### B MANAGER PHILOSOPHY, CMP #### [facility] [address] [address] [address] Arden Magallon Urea nitrogen/Creatinine [Mass ratio] 15.1 mg/mg Normal [facility] Comment on above: Performed By: #### B MANAGER PHILOSOPHY, CMP #### [facility] [address] [place] [address] Dr. Arden Magallon TROPONIN, HIGH SENSITIVITYon 09-18-2022 HSTROP 8.3 pg/mL Normal 4.0-51.3 [facility] Comment on above: Result Comment: CUT- OFF POINTS HAVE BEEN ESTABLISHED BASED ON THE FOURTH UNIVERSAL DEFINITIONS OF MYOCARDIAL INFARCTION. THE UPPER REFERENCE LIMIT (URL) OF TROPONIN, DEFINED THE 99TH PERCENTILE OF cTnI DISTRIBUTION IN A REFERENCE POPULATION, HAS BEEN CONFIRMED THE DECISION THRESHOLD FOR [place] DIAGNOSIS. Performed By: #### B MANAGER PHILOSOPHY, CMP #### [facility] [address] [place] [address] Dr. Arden Magallon XR CHEST 1 Von [...] BERNIE NAVARRO Date: 2022-09-18 16:11 Normal The [facility] CBC AUTO DIFFon 09-11-2022 BASO # 0.1 103/ul Normal 0.0-0.1 The [facility] Comment on above: Performed By: #### B MP #### [facility] [address] [address] [address] Arden Magallon Basophils/100 WBC (Bld) 2.3 % Critically high 0.2-2.0 The [facility] Comment on above: Performed By: #### B MP #### [facility] [address] [place] [address] Dr. Arden Magallon EO # 0.5 103/ul Normal 0.0-0.7 [facility] Comment on above: Performed By: #### B MP #### [facility] [address] [place] [address] Dr. Arden Magallon Eosinophils/100 WBC (Bld) 8.0 % Critically high 0.9-7.0 The [facility] Comment on above: Performed By: #### B MP #### [facility] [address] [place] [address] Dr. Arden Magallon Erythrocyte distribution width (RBC) [Ratio] 13.8 % Normal 11.0-15.0 [facility] Comment on above: Performed By: #### B MP #### [facility] [address] [place] [address] Dr. Arden Magallon Hematocrit (Bld) [Volume fraction] 40.5 % Normal 36.0-48.0 [facility] Comment on above: Performed By: #### B MP #### [facility] [address] [place] [address] Dr. Arden Magallon Hemoglobin (Bld) [Mass/Vol] 13.5 g/dL Normal 12.0-16.0 [facility] Comment on above: Performed By: #### B MP #### [facility] [address] [place] [address] Dr. Arden Magallon IG # 0.01 10e3/ul Normal 0.00-0.03 [facility] Comment on above: Performed By: #### B MP #### [facility] [address] [place] [address] Dr. Arden Magallon IG % 0.2 % Normal 0.0-0.5 [facility] Comment on above: Performed By: #### B MP #### [facility] [address] [place] [address] Dr. Arden Magallon LYMPH # 1.5 103/ul Normal 1.2-3.8 [facility] Comment on above: Performed By: #### B MP #### [facility] [address] [place] [address] Dr. Arden Magallon Lymphocytes/100 WBC (Bld) 24.9 % Normal 20.5-60.0 [facility] Comment on above: Performed By: #### B MP #### [facility] [address] [place] [address] Dr. Arden Magallon MANUAL DIFF REQ NO Normal [facility] Comment on above: Performed By: #### B MP #### [facility] [address] [place] [address] Dr. Arden Magallon MCH (RBC) [Entitic mass] 31.1 pg Normal 26.7-34.0 [facility] Comment on above: Performed By: #### B MP #### [facility] [address] [place] [address] Dr. Arden Magallon MCHC (RBC) [Mass/Vol] 33.3 g/dL Normal 29.9-35.2 [facility] Comment on above: Performed By: #### B MP #### [facility] [address] [place] [address] Dr. Arden Magallon MCV (RBC) [Entitic vol] 93.3 fL Normal 81.0-99.0 [facility] Comment on above: Performed By: #### B MP #### [facility] [address] [place] [address] Dr. Arden Magallon MONO # 1.0 103/ul Critically high 0.3-0.8 [facility] Comment on above: Performed By: #### B MP #### [facility] [address] [address] [address] Arden Magallon Monocytes/100 WBC (Bld) 16.0 % Critically high 1.7-12.0 [facility] Comment on above: Performed By: #### B MP #### [facility] [address] [address] [address] Arden Magallon NEUT # 2.9 103/ul Normal 1.4-6.5 [facility] Comment on above: Performed By: #### B MP #### [facility] [address] [address] [address] Arden Magallon Neutrophils/100 WBC (Bld) 48.6 % Normal 43.0-75.0 [facility] Comment on above: Performed By: #### B MP #### [facility] [address] [place] [address] Dr. Arden Magallon Platelet mean volume (Bld) [Entitic vol] 10.8 fL Normal 9.5-13.5 [facility] Comment on above: Performed By: #### B MP #### [facility] [address] [place] [address] Dr. Arden Magallon PLT 138 103/ul Critically low 150-450 [facility] Comment on above: Performed By: #### B MP #### [facility] [address] [address] [address] Arden Magallon RBC 4.34 106/ul Normal 4.20-5.40 [facility] Comment on above: Performed By: #### B MP #### [facility] [facility] [address] [place] [address] Dr. Arden Magallon WBC 6.0 103/ul Normal 4.0-11.0 The [facility] Comment on above: Performed By: #### B MP #### [facility] [address] [place] [address] Dr. Arden Magallon PROF CHEM 8 (BAS METB)on Anion gap [Moles/Vol] 9.0 mmol/L Normal The [facility] Comment on above: Performed By: #### P T, DDIM #### [facility] [address] [address] [address] Arden Magallon Calcium [Mass/Vol] 9.6 mg/dL Normal 8.5-10.1 [facility] Comment on above: Performed By: #### P T, DDIM #### [facility] [address] [address] [address] Arden Magallon Chloride [Moles/Vol] 105 mmol/L Normal 98-107 [facility] Comment on above: Performed By: #### P T, DDIM #### [facility] [address] [place] [address] Dr. Arden Magallon CO2 [Moles/Vol] 29.1 mmol/L Normal 21.0-32.0 [facility] Comment on above: Performed By: #### P T, DDIM #### [facility] [address] [place] [address] Dr. Arden Magallon Creatinine [Mass/Vol] 1.00 mg/dL Normal 0.55-1.02 [facility] Comment on above: Performed By: #### P T, DDIM #### [facility] [address] [place] [address] Dr. Arden Magallon EGFR-AF CROATIAN >60 Normal >=60 [facility] Comment on above: Performed By: #### P T, DDIM #### [facility] [address] [place] [address] Dr. Arden Magallon EGFR-NON AF CROATIAN 53 mL/min/1.73m2 Critically low >=60 [facility] Comment on above: Performed By: #### P T, DDIM #### [facility] [address] [place] [address] Dr. Arden Magallon Glucose [Mass/Vol] 116 mg/dL Critically high 74-106 [facility] Comment on above: Performed By: #### P T, DDIM #### [facility] [address] [place] [address] Dr. Arden Magallon Potassium [Moles/Vol] 4.1 mmol/L Normal 3.5-5.1 [facility] Comment on above: Performed By: #### P T, DDIM #### [facility] [address] [place] [address] Dr. Arden Magallon Sodium [Moles/Vol] 139 mmol/L Normal 136-145 [facility] Comment on above: Performed By: #### P T, DDIM #### [facility] [address] [place] [address] Dr. Arden Magallon Urea nitrogen [Mass/Vol] 15.0 mg/dL Normal 7.0-18.0 [facility] Comment on above: Performed By: #### P T, DDIM #### [facility] [address] [place] [address] Dr. Arden Magallon Urea nitrogen/Creatinine [Mass ratio] 15.0 mg/mg Normal [facility] Comment on above: Performed By: #### P T, DDIM #### [facility] [address] [place] [address] Dr. Arden Magallon CBC AUTO DIFFon 08-30-2022 BASO # 0.2 103/ul Critically high 0.0-0.1 [facility] Comment on above: Performed By: #### B MANAGER PHILOSOPHY, CMP #### [facility] [address] [place] [address] Dr. Arden Magallon Basophils/100 WBC (Bld) 2.7 % Critically high 0.2-2.0 [facility] Comment on above: Performed By: #### B MANAGER PHILOSOPHY, CMP #### [facility] [address] [place] [address] Dr. Arden Magallon EO # 0.5 103/ul Normal 0.0-0.7 [facility] Comment on above: Performed By: #### B MANAGER PHILOSOPHY, CMP #### [facility] [address] [place] [address] Dr. Arden Magallon Eosinophils/100 WBC (Bld) 6.7 % Normal 0.9-7.0 [facility] Comment on above: Performed By: #### B MANAGER PHILOSOPHY, CMP #### [facility] [address] [place] [address] Dr. Arden Magallon Erythrocyte distribution width (RBC) [Ratio] 14.3 % Normal 11.0-15.0 [facility] Comment on above: Performed By: #### B MANAGER PHILOSOPHY, CMP #### [facility] [address] [place] [address] Dr. Arden Magallon Hematocrit (Bld) [Volume fraction] 43.1 % Normal 36.0-48.0 [facility] Comment on above: Performed By: #### B MANAGER PHILOSOPHY, CMP #### [facility] [address] [place] [address] Dr. Arden Magallon Hemoglobin (Bld) [Mass/Vol] 14.5 g/dL Normal 12.0-16.0 [facility] Comment on above: Performed By: #### B MANAGER PHILOSOPHY, CMP #### [facility] [address] [place] [address] Dr. Arden Magallon IG # 0.02 10e3/ul Normal 0.00-0.03 [facility] Comment on above: Performed By: #### B MANAGER PHILOSOPHY, CMP #### [facility] [address] [place] [address] Dr. Arden Magallon IG % 0.3 % Normal 0.0-0.5 [facility] Comment on above: Performed By: #### B MANAGER PHILOSOPHY, CMP #### [facility] [address] [place] [address] Dr. Arden Magallon LYMPH # 3.1 103/ul Normal 1.2-3.8 The [facility] Comment on above: Performed By: #### B MANAGER PHILOSOPHY, CMP #### [facility] [address] [place] [address] Dr. Arden Magallon Lymphocytes/100 WBC (Bld) 41.0 % Normal 20.5-60.0 The [facility] Comment on above: Performed By: #### B MANAGER PHILOSOPHY, CMP #### [facility] [address] [place] [address] Dr. Arden Magallon MANUAL DIFF REQ NO Normal [facility] Comment on above: Performed By: #### B MANAGER PHILOSOPHY, CMP #### [facility] [address] [place] [address] Dr. Arden Magallon MCH (RBC) [Entitic mass] 31.6 pg Normal 26.7-34.0 The [facility] Comment on above: Performed By: #### B MANAGER PHILOSOPHY, CMP #### [facility] [address] [place] [address] Dr. Arden Magallon MCHC (RBC) [Mass/Vol] 33.6 g/dL Normal 29.9-35.2 The [facility] Comment on above: Performed By: #### B MANAGER PHILOSOPHY, CMP #### [facility] [address] [place] [address] Dr. Arden Magallon MCV (RBC) [Entitic vol] 93.9 fL Normal 81.0-99.0 The [facility] Comment on above: Performed By: #### B MANAGER PHILOSOPHY, CMP #### [facility] [address] [place] [address] Dr. Arden Magallon MONO # 0.8 103/ul Normal 0.3-0.8 The [facility] Comment on above: Performed By: #### B MANAGER PHILOSOPHY, CMP #### [facility] [address] [place] [address] Dr. Arden Magallon Monocytes/100 WBC (Bld) 10.9 % Normal 1.7-12.0 [facility] Comment on above: Performed By: #### B MANAGER PHILOSOPHY, CMP #### [facility] [address] [place] [address] Dr. Arden Magallon NEUT # 2.9 103/ul Normal 1.4-6.5 The [facility] Comment on above: Performed By: #### B MANAGER PHILOSOPHY, CMP #### [facility] [address] [place] [address] Dr. Arden Magallon Neutrophils/100 WBC (Bld) 38.4 % Critically low 43.0-75.0 The [facility] Comment on above: Performed By: #### B MANAGER PHILOSOPHY, CMP #### [facility] [address] [place] [address] Dr. Arden Magallon Platelet mean volume (Bld) [Entitic vol] 10.8 fL Normal 9.5-13.5 The [facility] Comment on above: Performed By: #### B MANAGER PHILOSOPHY, CMP #### [facility] [address] [place] [address] Dr. Arden Magallon PLT 165 103/ul Normal 150-450 [facility] Comment on above: Performed By: #### B MANAGER PHILOSOPHY, CMP #### [facility] [address] [place] [address] Dr. Arden Magallon RBC 4.59 106/ul Normal 4.20-5.40 [facility] Comment on above: Performed By: #### B MANAGER PHILOSOPHY, CMP #### [facility] [address] [place] [address] Dr. Arden Magallon WBC 7.5 103/ul Normal 4.0-11.0 [facility] Comment on above: Performed By: #### B MANAGER PHILOSOPHY, CMP #### [facility] [address] [place] [address] Dr. Arden Magallon PROF 14(COMP METB)on 022 Albumin [Mass/Vol] 3.9 g/dL Normal 3.4-5.0 [facility] Comment on above: Performed By: #### P T, DDIM #### [facility] [address] [place] [address] Dr. Arden Magallon Albumin/Globulin [Mass ratio] 1.2 {ratio} [facility] Comment on above: Performed By: #### P T, DDIM #### [facility] [address] [place] [address] Dr. Arden Magallon ALP [Catalytic activity/Vol] 69 U/L Normal 46-116 The [facility] Comment on above: Performed By: #### P T, DDIM #### [facility] [address] [place] [address] Dr. Arden Magallon ALT [Catalytic activity/Vol] 16 U/L Normal 14-59 [facility] Comment on above: Performed By: #### P T, DDIM #### [facility] [address] [place] [address] Dr. Arden Magallon Anion gap [Moles/Vol] 8.6 mmol/L Normal [facility] Comment on above: Performed By: #### P T, DDIM #### [facility] [address] [address] [address] Arden Magallon AST [Catalytic activity/Vol] 14 U/L Critically low 15-37 [facility] Comment on above: Performed By: #### P T, DDIM #### [facility] [address] [address] [address] Arden Magallon Bilirubin [Mass/Vol] 0.3 mg/dL Normal 0.2-1.0 [facility] Comment on above: Performed By: #### P T, DDIM #### [facility] [address] [address] [address] Arden Magallon Calcium [Mass/Vol] 9.5 mg/dL Normal 8.5-10.1 [facility] Comment on above: Performed By: #### P T, DDIM #### [facility] [address] [address] [address] Arden Magallon Chloride [Moles/Vol] 104 mmol/L Normal 98-107 [facility] Comment on above: Performed By: #### P T, DDIM #### [facility] [address] [address] [address] Arden Magallon CO2 [Moles/Vol] 29.2 mmol/L Normal 21.0-32.0 [facility] Comment on above: Performed By: #### P T, DDIM #### [facility] [address] [address] [address] Arden Magallon Creatinine [Mass/Vol] 1.25 mg/dL Critically high 0.55-1.02 [facility] Comment on above: Performed By: #### P T, DDIM #### [facility] [address] [address] [address] Arden Magallon EGFR-AF CROATIAN 49 mL/min/1.73m2 Critically low >=60 [facility] Comment on above: Performed By: #### P T, DDIM #### [facility] [address] [address] [address] Arden Magallon EGFR-NON AF CROATIAN 41 mL/min/1.73m2 Critically low >=60 [facility] Comment on above: Performed By: #### P T, DDIM #### [facility] [address] [place] [address] Dr. Arden Magallon Globulin (S) [Mass/Vol] 3.3 g/dL Normal [facility] Comment on above: Performed By: #### P T, DDIM #### [facility] [address] [place] [address] Dr. Arden Magallon Glucose [Mass/Vol] 119 mg/dL Critically high 74-106 [facility] Comment on above: Performed By: #### P T, DDIM #### [facility] [address] [place] [address] Dr. Arden Magallon Potassium [Moles/Vol] 3.8 mmol/L Normal 3.5-5.1 [facility] Comment on above: Performed By: #### P T, DDIM #### [facility] [address] [place] [address] Dr. Arden Magallon Protein [Mass/Vol] 7.2 g/dL Normal 6.4-8.2 [facility] Comment on above: Performed By: #### P T, DDIM #### [facility] [address] [place] [address] Dr. Arden Magallon Sodium [Moles/Vol] 138 mmol/L Normal 136-145 [facility] Comment on above: Performed By: #### P T, DDIM #### [facility] [address] [place] [address] Dr. Arden Magallon Urea nitrogen [Mass/Vol] 24.0 mg/dL Critically high 7.0-18.0 [facility] Comment on above: Performed By: #### P T, DDIM #### [facility] [address] [place] [address] Dr. Arden Magallon Urea nitrogen/Creatinine [Mass ratio] 19.2 mg/mg Normal [facility] Comment on above: Performed By: #### P T, DDIM #### [facility] [address] [place] [address] Dr. Arden Magallon BNPon 08-26-2022 Natriuretic peptide B (Bld) [Mass/Vol] 427.0 pg/mL Normal <=1,800.0 The [facility] Comment on above: Performed By: #### P T, DDIM #### [facility] [address] [place] [address] Dr. Arden Magallon CARDIAC CINDY ADMITon 022 CK [Catalytic activity/Vol] 56 U/L Normal 26-192 The [facility] Comment on above: Performed By: #### P T, DDIM #### [facility] [address] [address] [address] Arden Magallon CK.MB [Mass/Vol] 1.41 ng/mL Normal <=3.60 [facility] Comment on above: Performed By: #### P T, DDIM #### [facility] [address] [place] [address] Dr. Arden Magallon HSTROP 9.0 pg/mL Normal 4.0-51.3 The [facility] Comment on above: Result Comment: CUT- OFF POINTS HAVE BEEN ESTABLISHED BASED ON THE FOURTH UNIVERSAL DEFINITIONS OF MYOCARDIAL INFARCTION. THE UPPER REFERENCE LIMIT (URL) OF TROPONIN, DEFINED THE 99TH PERCENTILE OF cTnI DISTRIBUTION IN A REFERENCE POPULATION, HAS BEEN CONFIRMED THE DECISION THRESHOLD FOR [place] DIAGNOSIS. Performed By: #### P T, DDIM #### [facility] [address] [place] [address] Dr. Arden Magallon IKE 99 ng/mL Critically high 9-82 [facility] Comment on above: Performed By: #### P T, DDIM #### [facility] [address] [place] [address] Dr. Arden Magallon CBC AUTO DIFFon 08-26-2022 BASO # 0.2 103/ul Critically high 0.0-0.1 [facility] Comment on above: Performed By: #### C BC #### [facility] [address] [place] [address] Dr. Arden Magallon Basophils/100 WBC (Bld) 2.2 % Critically high 0.2-2.0 The [facility] Comment on above: Performed By: #### C BC #### [facility] [address] [place] [address] Dr. Arden Magallon EO # 0.4 103/ul Normal 0.0-0.7 [facility] Comment on above: Performed By: #### C BC #### [facility] [address] [place] [address] Dr. Arden Magallon Eosinophils/100 WBC (Bld) 5.1 % Normal 0.9-7.0 [facility] Comment on above: Performed By: #### C BC #### [facility] [address] [place] [address] Dr. Arden Magallon Erythrocyte distribution width (RBC) [Ratio] 14.1 % Normal 11.0-15.0 [facility] Comment on above: Performed By: #### C BC #### [facility] [address] [place] [address] Dr. Arden Magallon Hematocrit (Bld) [Volume fraction] 41.2 % Normal 36.0-48.0 [facility] Comment on above: Performed By: #### C BC #### [facility] [address] [place] [address] Dr. Arden Magallon Hemoglobin (Bld) [Mass/Vol] 13.6 g/dL Normal 12.0-16.0 [facility] Comment on above: Performed By: #### C BC #### [facility] [address] [place] [address] Dr. Arden Magallon IG # 0.03 10e3/ul Normal 0.00-0.03 The [facility] Comment on above: Performed By: #### C BC #### [facility] [address] [place] [address] Dr. Arden Mgaallon IG % 0.4 % Normal 0.0-0.5 The [facility] Comment on above: Performed By: #### C BC #### [facility] [address] [place] [address] Dr. Arden Magallon LYMPH # 2.4 103/ul Normal 1.2-3.8 The [facility] Comment on above: Performed By: #### C BC #### [facility] [address] [place] [address] Dr. Arden Magallon Lymphocytes/100 WBC (Bld) 30.1 % Normal 20.5-60.0 The [facility] Comment on above: Performed By: #### C BC #### [facility] [address] [place] [address] Dr. Arden Magallon MANUAL DIFF REQ NO Normal [facility] Comment on above: Performed By: #### C BC #### [facility] [address] [place] [address] Dr. Arden Magallon MCH (RBC) [Entitic mass] 30.8 pg Normal 26.7-34.0 The [facility] Comment on above: Performed By: #### C BC #### [facility] [address] [place] [address] Dr. Arden Magallon MCHC (RBC) [Mass/Vol] 33.0 g/dL Normal 29.9-35.2 The [facility] Comment on above: Performed By: #### C BC #### [facility] [address] [place] [address] Dr. Arden Magallon MCV (RBC) [Entitic vol] 93.4 fL Normal 81.0-99.0 The [facility] Comment on above: Performed By: #### C BC #### [facility] [address] [place] [address] Dr. Arden Magallon MONO # 0.8 103/ul Normal 0.3-0.8 The [facility] Comment on above: Performed By: #### C BC #### [facility] [address] [place] [address] Dr. Arden Magallon Monocytes/100 WBC (Bld) 9.8 % Normal 1.7-12.0 [facility] Comment on above: Performed By: #### C BC #### [facility] [address] [place] [address] Dr. Arden Magallon NEUT # 4.2 103/ul Normal 1.4-6.5 The [facility] Comment on above: Performed By: #### C BC #### [facility] [address] [place] [address] Dr. Arden Magallon Neutrophils/100 WBC (Bld) 52.4 % Normal 43.0-75.0 [facility] Comment on above: Performed By: #### C BC #### [facility] [address] [place] [address] Dr. Arden Magallon Platelet mean volume (Bld) [Entitic vol] 10.7 fL Normal 9.5-13.5 [facility] Comment on above: Performed By: #### C BC #### [facility] [address] [place] [address] Dr. Arden Magallon PLT 154 103/ul Normal 150-450 [facility] Comment on above: Performed By: #### C BC #### [facility] [address] [place] [address] Dr. Arden Magallon RBC 4.41 106/ul Normal 4.20-5.40 [facility] Comment on above: Performed By: #### C BC #### [facility] [address] [place] [address] Dr. Arden Magallon WBC 8.1 103/ul Normal 4.0-11.0 [facility] Comment on above: Performed By: #### C BC #### [facility] [address] [place] [address] Dr. Arden Magallon PROF 14(COMP METB)on 022 Albumin [Mass/Vol] 3.7 g/dL Normal 3.4-5.0 [facility] Comment on above: Performed By: #### P T, DDIM #### [facility] [address] [place] [address] Dr. Arden Magallon Albumin/Globulin [Mass ratio] 1.2 {ratio} Normal [facility] Comment on above: Performed By: #### P T, DDIM #### [facility] [address] [place] [address] Dr. Arden Magallon ALP [Catalytic activity/Vol] 57 U/L Normal 46-116 [facility] Comment on above: Performed By: #### P T, DDIM #### [facility] [address] [place] [address] Dr. Arden Magallon ALT [Catalytic activity/Vol] 17 U/L Normal 14-59 [facility] Comment on above: Performed By: #### P T, DDIM #### [facility] [address] [place] [address] Dr. Arden Magallon Anion gap [Moles/Vol] 9.1 mmol/L Normal [facility] Comment on above: Performed By: #### P T, DDIM #### [facility] [address] [place] [address] Dr. Arden Magallon AST [Catalytic activity/Vol] 12 U/L Critically low 15-37 [facility] Comment on above: Performed By: #### P T, DDIM #### [facility] [address] [place] [address] Dr. Arden Magallon Bilirubin [Mass/Vol] 0.6 mg/dL Normal 0.2-1.0 [facility] Comment on above: Performed By: #### P T, DDIM #### [facility] [address] [place] [address] Dr. Arden Magallon Calcium [Mass/Vol] 9.5 mg/dL Normal 8.5-10.1 [facility] Comment on above: Performed By: #### P T, DDIM #### [facility] [address] [place] [address] Dr. Arden Magallon Chloride [Moles/Vol] 105 mmol/L Normal 98-107 The [facility] Comment on above: Performed By: #### P T, DDIM #### [facility] [address] [place] [address] Dr. Arden Magallon CO2 [Moles/Vol] 27.9 mmol/L Normal 21.0-32.0 [facility] Comment on above: Performed By: #### P T, DDIM #### [facility] [address] [place] [address] Dr. Arden Magallon Creatinine [Mass/Vol] 0.97 mg/dL Normal 0.55-1.02 [facility] Comment on above: Performed By: #### P T, DDIM #### [facility] [address] [address] [address] Arden Magallon EGFR-AF CROATIAN >60 Normal >=60 [facility] Comment on above: Performed By: #### P T, DDIM #### [facility] [address] [address] [address] Arden Magallon EGFR-NON AF CROATIAN 54 mL/min/1.73m2 Critically low >=60 The [facility] Comment on above: Performed By: #### P T, DDIM #### [facility] [address] [address] [address] Arden Magallon Globulin (S) [Mass/Vol] 3.0 g/dL Normal [facility] Comment on above: Performed By: #### P T, DDIM #### [facility] [address] [address] [address] Arden Magallon Glucose [Mass/Vol] 105 mg/dL Normal 74-106 [facility] Comment on above: Performed By: #### P T, DDIM #### [facility] [address] [address] [address] Arden Magallon Potassium [Moles/Vol] 4.0 mmol/L Normal 3.5-5.1 The [facility] Comment on above: Performed By: #### P T, DDIM #### [facility] [address] [address] [address] Arden Magallon Protein [Mass/Vol] 6.7 g/dL Normal 6.4-8.2 The [facility] Comment on above: Performed By: #### P T, DDIM #### [facility] [address] [address] [address] Arden Magallon Sodium [Moles/Vol] 138 mmol/L Normal 136-145 [facility] Comment on above: Performed By: #### P T, DDIM #### [facility] [address] [address] [address] Arden Maglalon Urea nitrogen [Mass/Vol] 18.0 mg/dL Normal 7.0-18.0 [facility] Comment on above: Performed By: #### P T, DDIM #### [facility] [address] [place] [address] Dr. Arden Magallon Urea nitrogen/Creatinine [Mass ratio] 18.6 mg/mg Normal The [facility] Comment on above: Performed By: #### P T, DDIM #### [facility] [address] [place] [address] Dr. Arden Magallon PROTIMEon 08-26-2022 INR Coag (PPP) [Relative time] 1.49 {INR} Normal The [facility] Comment on above: Performed By: #### B MANAGER PHILOSOPHY, CMP #### [facility] [address] [place] [address] Dr. Arden Magallon INR GUIDELINES SEE BELOW Normal The [facility] Comment on above: Result Comment: THANH RED INR: 2.0 - 3.0 CONDITIONS NOT LISTED BELOW 2.5 - 3.5 FOR PROSTHETIC HEART VALVE REPLACEMENT 2.5 - 3.5 RECURRENT THROMBOSIS Performed By: #### B MANAGER PHILOSOPHY, CMP #### [facility] [address] [place] [address] Dr. Arden Magallon PT Coag (PPP) [Time] 15.7 s Critically high 9.0-11.6 The [facility] Comment on above: Performed By: #### B MANAGER PHILOSOPHY, CMP #### [facility] [address] [place] [address] Dr. Arden Magallon PTTon 08-26-2022 aPTT Coag (Bld) [Time] 30.2 s Normal 22.3-36.2 The [facility] Comment on above: Performed By: #### B MANAGER PHILOSOPHY, CMP #### [facility] [address] [place] [address] Dr. Arden Magallon TROPONIN, HIGH SENSITIVITYon 08-26-2022 HSTROP 8.3 pg/mL Normal 4.0-51.3 The [facility] Comment on above: Result Comment: CUT- OFF POINTS HAVE BEEN ESTABLISHED BASED ON THE FOURTH UNIVERSAL DEFINITIONS OF MYOCARDIAL INFARCTION. THE UPPER REFERENCE LIMIT (URL) OF TROPONIN, DEFINED THE 99TH PERCENTILE OF cTnI DISTRIBUTION IN A REFERENCE POPULATION, HAS BEEN CONFIRMED THE DECISION THRESHOLD FOR [place] DIAGNOSIS. Performed By: #### B MP #### [facility] [address] [address] [address] Arden Magallon XR CHEST 1 Von [...] [place] Date: 2022-08-26 12:29 Normal The [facility] BNPon 08-17-2022 Natriuretic peptide B (Bld) [Mass/Vol] 414.0 pg/mL Normal <=1,800.0 The [facility] Comment on above: Performed By: #### B MP #### [facility] [address] [address] [address] Arden Magallon CBC AUTO DIFFon 08-17-2022 BASO # 0.2 103/ul Critically high 0.0-0.1 The [facility] Comment on above: Performed By: #### B MP #### [facility] [address] [address] [address] Arden Magallon Basophils/100 WBC (Bld) 2.8 % Critically high 0.2-2.0 The [facility] Comment on above: Performed By: #### B MP #### [facility] [address] [address] [address] Arden Magallon EO # 0.5 103/ul Normal 0.0-0.7 The [facility] Comment on above: Performed By: #### B MP #### [facility] [address] [address] [address] Arden Magallon Eosinophils/100 WBC (Bld) 7.2 % Critically high 0.9-7.0 The [facility] Comment on above: Performed By: #### B MP #### [facility] [address] [place] [address] Dr. Arden Magallon Erythrocyte distribution width (RBC) [Ratio] 14.1 % Normal 11.0-15.0 [facility] Comment on above: Performed By: #### B MP #### [facility] [address] [place] [address] Dr. Arden Magallon Hematocrit (Bld) [Volume fraction] 41.2 % Normal 36.0-48.0 [facility] Comment on above: Performed By: #### B MP #### [facility] [address] [place] [address] Dr. Arden Magallon Hemoglobin (Bld) [Mass/Vol] 13.5 g/dL Normal 12.0-16.0 [facility] Comment on above: Performed By: #### B MP #### [facility] [address] [place] [address] Dr. Arden Magallon IG # 0.01 10e3/ul Normal 0.00-0.03 [facility] Comment on above: Performed By: #### B MP #### [facility] [address] [place] [address] Dr. Arden Magallon IG % 0.1 % Normal 0.0-0.5 [facility] Comment on above: Performed By: #### B MP #### [facility] [address] [place] [address] Dr. Arden Magallon LYMPH # 2.7 103/ul Normal 1.2-3.8 [facility] Comment on above: Performed By: #### B MP #### [facility] [address] [place] [address] Dr. Arden Magallon Lymphocytes/100 WBC (Bld) 37.7 % Normal 20.5-60.0 [facility] Comment on above: Performed By: #### B MP #### [facility] [address] [place] [address] Dr. Arden Magallon MANUAL DIFF REQ NO Normal The [facility] Comment on above: Performed By: #### B MP #### [facility] [address] [place] [address] Dr. Arden Magallon MCH (RBC) [Entitic mass] 31.2 pg Normal 26.7-34.0 The [facility] Comment on above: Performed By: #### B MP #### [facility] [address] [place] [address] Dr. Arden Magallon MCHC (RBC) [Mass/Vol] 32.8 g/dL Normal 29.9-35.2 The [facility] Comment on above: Performed By: #### B MP #### [facility] [address] [place] [address] Dr. Arden Magallon MCV (RBC) [Entitic vol] 95.2 fL Normal 81.0-99.0 [facility] Comment on above: Performed By: #### B MP #### [facility] [address] [place] [address] Dr. Arden Magallon MONO # 0.6 103/ul Normal 0.3-0.8 The [facility] Comment on above: Performed By: #### B MP #### [facility] [address] [place] [address] Dr. Arden Magallon Monocytes/100 WBC (Bld) 8.2 % Normal 1.7-12.0 [facility] Comment on above: Performed By: #### B MP #### [facility] [address] [place] [address] Dr. Arden Magallon NEUT # 3.1 103/ul Normal 1.4-6.5 The [facility] Comment on above: Performed By: #### B MP #### [facility] [address] [place] [address] Dr. Arden Magallon Neutrophils/100 WBC (Bld) 44.0 % Normal 43.0-75.0 The [facility] Comment on above: Performed By: #### B MP #### [facility] [address] [place] [address] Dr. Arden Magallon Platelet mean volume (Bld) [Entitic vol] 11.5 fL Normal 9.5-13.5 The [facility] Comment on above: Performed By: #### B MP #### [facility] [address] [place] [address] Dr. Arden Magallon PLT 160 103/ul Normal 150-450 [facility] Comment on above: Performed By: #### B MP #### [facility] [address] [place] [address] Dr. Arden Magallon RBC 4.33 106/ul Normal 4.20-5.40 [facility] Comment on above: Performed By: #### B MP #### [facility] [address] [place] [address] Dr. Arden Magallon WBC 7.1 103/ul Normal 4.0-11.0 [facility] Comment on above: Performed By: #### B MP #### [facility] [address] [place] [address] Dr. Arden Magallon D-DIMERon 08-17-2022 D-DIMER 0.36 mg/L FEU Normal <=0.59 The [facility] Comment on above: Performed By: #### P T, DDIM #### [facility] [address] [place] [address] Dr. Arden Magallon D-DIMER COMMENTS SEE BELOW Normal [facility] Comment on above: Result Comment: Incr eases [...] Performed By: #### P T, DDIM #### [facility] [address] [place] [address] Dr. Arden Magallon PROF 14(COMP METB)on 022 Albumin [Mass/Vol] 3.7 g/dL Normal 3.4-5.0 [facility] Comment on above: Performed By: #### C BC #### [facility] [address] [place] [address] Dr. Arden Magallon Albumin/Globulin [Mass ratio] 1.1 {ratio} Normal [facility] Comment on above: Performed By: #### C BC #### [facility] [address] [place] [address] Dr. Arden Magallon ALP [Catalytic activity/Vol] 65 U/L Normal 46-116 [facility] Comment on above: Performed By: #### C BC #### [facility] [address] [place] [address] Dr. Arden Magallon ALT [Catalytic activity/Vol] 15 U/L Normal 14-59 [facility] Comment on above: Performed By: #### C BC #### [facility] [address] [place] [address] Dr. Arden Magallon Anion gap [Moles/Vol] 6.1 mmol/L Normal [facility] Comment on above: Performed By: #### C BC #### [facility] [address] [place] [address] Dr. Arden Magallon AST [Catalytic activity/Vol] 11 U/L Critically low 15-37 [facility] Comment on above: Performed By: #### C BC #### [facility] [address] [place] [address] Dr. Arden Magallon Bilirubin [Mass/Vol] 0.4 mg/dL Normal 0.2-1.0 [facility] Comment on above: Performed By: #### C BC #### [facility] [address] [place] [address] Dr. Arden Magallon Calcium [Mass/Vol] 9.6 mg/dL Normal 8.5-10.1 [facility] Comment on above: Performed By: #### C BC #### [facility] [address] [place] [address] Dr. Arden Magallon Chloride [Moles/Vol] 106 mmol/L Normal 98-107 [facility] Comment on above: Performed By: #### C BC #### [facility] [address] [place] [address] Dr. Arden Magallon CO2 [Moles/Vol] 29.5 mmol/L Normal 21.0-32.0 [facility] Comment on above: Performed By: #### C BC #### [facility] [address] [address] [address] Arden Magallon Creatinine [Mass/Vol] 1.02 mg/dL Normal 0.55-1.02 [facility] Comment on above: Performed By: #### C BC #### [facility] [address] [address] [address] Arden Magallon EGFR-AF CROATIAN >60 Normal >=60 [facility] Comment on above: Performed By: #### C BC #### [facility] [address] [address] [address] Arden Magallon EGFR-NON AF CROATIAN 51 mL/min/1.73m2 Critically low >=60 [facility] Comment on above: Performed By: #### C BC #### [facility] [address] [address] [address] Arden Magallon Globulin (S) [Mass/Vol] 3.3 g/dL Normal [facility] Comment on above: Performed By: #### C BC #### [facility] [address] [address] [address] Arden Magallon Glucose [Mass/Vol] 143 mg/dL Critically high 74-106 T [facility] Comment on above: Performed By: #### C BC #### [facility] [address] [address] [address] Arden Magallon Potassium [Moles/Vol] 3.6 mmol/L Normal 3.5-5.1 The [facility] Comment on above: Performed By: #### C BC #### [facility] [address] [address] [address] Arden Magallon Protein [Mass/Vol] 7.0 g/dL Normal 6.4-8.2 [facility] Comment on above: Performed By: #### C BC #### [facility] [address] [address] [address] Arden Magallon Sodium [Moles/Vol] 138 mmol/L Normal 136-145 [facility] Comment on above: Performed By: #### C BC #### [facility] [address] [place] [address] Dr. Arden Magallon Urea nitrogen [Mass/Vol] 21.0 mg/dL Critically high 7.0-18.0 [facility] Comment on above: Performed By: #### C BC #### [facility] [address] [place] [address] Dr. Arden Magallon Urea nitrogen/Creatinine [Mass ratio] 20.6 mg/mg Normal The [facility] Comment on above: Performed By: #### C BC #### [facility] [address] [place] [address] Dr. Arden Magallon PROTIMEon 08-17-2022 INR Coag (PPP) [Relative time] 1.27 {INR} Normal The [facility] Comment on above: Performed By: #### P T, DDIM #### [facility] [address] [place] [address] Dr. Arden Magallon INR GUIDELINES SEE BELOW Normal [facility] Comment on above: Result Comment: THANH RED INR: 2.0 - 3.0 CONDITIONS NOT LISTED BELOW 2.5 - 3.5 FOR PROSTHETIC HEART VALVE REPLACEMENT 2.5 - 3.5 RECURRENT THROMBOSIS Performed By: #### P T, DDIM #### [facility] [address] [place] [address] Dr. Arden Magallon PT Coag (PPP) [Time] 13.5 s Critically high 9.0-11.6 The [facility] Comment on above: Performed By: #### P T, DDIM #### [facility] [address] [place] [address] Dr. Arden Magallon TROPONIN, HIGH SENSITIVITYon 08-17-2022 HSTROP 8.3 pg/mL Normal 4.0-51.3 The [facility] Comment on above: Result Comment: CUT- OFF POINTS HAVE BEEN ESTABLISHED BASED ON THE FOURTH UNIVERSAL DEFINITIONS OF MYOCARDIAL INFARCTION. THE UPPER REFERENCE LIMIT (URL) OF TROPONIN, DEFINED THE 99TH PERCENTILE OF cTnI DISTRIBUTION IN A REFERENCE POPULATION, HAS BEEN CONFIRMED THE DECISION THRESHOLD FOR [place] DIAGNOSIS. Performed By: #### B MP #### [facility] [address] [place] [address] Dr. Arden Magallon XR CHEST 1 Von [...] HARJINDER RAMIREZ Date: 2022-08-17 13:57 Normal The [facility] ER URINE PROFILEon 2 Bilirubin Ql (U) Negative Normal NEGATIVE [facility] Comment on above: Performed By: #### P T, DDIM #### [facility] [address] [place] [address] Dr. Arden Magallon Clarity (U) CLEAR Normal CLEAR The [facility] Comment on above: Performed By: #### P T, DDIM #### [facility] [address] [place] [address] Dr. Arden Magallon Color (U) LT. YELLOW Normal YELLOW The [facility] Comment on above: Performed By: #### P T, DDIM #### [facility] [address] [place] [address] Dr. Arden STROUD A micrscopic examination will be performed if indicated. Normal The [facility] Comment on above: Performed By: #### P T, DDIM #### [facility] [address] [place] [address] Dr. Arden Magallon Glucose Ql (U) Negative Normal NEGATIVE [facility] Comment on above: Performed By: #### P T, DDIM #### [facility] [address] [place] [address] Dr. Arden Magallon Hemoglobin Ql (U) SMALL Abnormal NEGATIVE [facility] Comment on above: Performed By: #### P T, DDIM #### [facility] [address] [place] [address] Dr. Arden Magallon Ketones Ql (U) Negative Normal NEGATIVE [facility] Comment on above: Performed By: #### P T, DDIM #### [facility] [address] [place] [address] Dr. Arden Magallon LEUKOCYTES TRACE Abnormal NEGATIVE [facility] Comment on above: Performed By: #### P T, DDIM #### [facility] [address] [place] [address] Dr. Arden Magallon Nitrite Ql (U) Negative Normal NEGATIVE [facility] Comment on above: Performed By: #### P T, DDIM #### [facility] [address] [place] [address] Dr. Arden Magallon pH (U) 7.0 [pH] Normal 5-9 [facility] Comment on above: Performed By: #### P T, DDIM #### [facility] [address] [place] [address] Dr. Arden Magallon SPEC GRAVITY 1.010 Normal 1.005-<=1.02 5 [facility] Comment on above: Performed By: #### P T, DDIM #### [facility] [address] [place] [address] Dr. Arden Magallon UA PROTEIN Negative Normal NEGATIVE/ TRACE The [facility] Comment on above: Performed By: #### P T, DDIM #### [facility] [address] [place] [address] Dr. Arden Magallon UR MICRO IND INDICATED Normal [facility] Comment on above: Performed By: #### P T, DDIM #### [facility] [address] [place] [address] Dr. Arden Magallon Urobilinogen Qn (U) 0.2 {Myranda'U}/dL Normal 0.2 - 1. 0 [facility] Comment on above: Performed By: #### P T, DDIM #### [facility] [address] [place] [address] Dr. Arden Magallon URINE MICROSCOPIC ONLYon BACTERIA NONE SEEN Normal NONE SEEN The [facility] Comment on above: Performed By: #### P T, DDIM #### [facility] [address] [place] [address] Dr. Arden Magallon Bacteria identified Cx Nom (U) NOT INDICATED Normal The [facility] Comment on above: Performed By: #### P T, DDIM #### [facility] [address] [place] [address] Dr. Arden Magallon CAST NONE SEEN Normal NONE SEEN The [facility] Comment on above: Performed By: #### P T, DDIM #### [facility] [address] [place] [address] Dr. Arden Magallon Crystals LM Nom (Urine sed) NONE SEEN Normal NONE SEEN The [facility] Comment on above: Performed By: #### P T, DDIM #### [facility] [address] [place] [address] Dr. Arden Magallon Epithelial cells LM Ql (Urine sed) RARE Normal NONE SEEN /RARE The [facility] Comment on above: Performed By: #### P T, DDIM #### [facility] [address] [place] [address] Dr. Arden Magallon MUCOUS NONE SEEN Normal NONE SEEN The [facility] Comment on above: Performed By: #### P T, DDIM #### [facility] [address] [place] [address] Dr. Arden Magallon RBC 0-2 Normal 0-2 The [facility] Comment on above: Performed By: #### P T, DDIM #### [facility] [address] [place] [address] Dr. Arden Magallon WBC 0-2 Abnormal NONE SEEN The [facility] Comment on above: Performed By: #### P T, DDIM #### [facility] [address] [place] [address] Dr. Arden Magallon XR CHEST 1 Von [...] PANCHO ELY Date: 2022-04-15 22:19 Normal The [facility] BNPon 04-15-2022 Natriuretic peptide B (Bld) [Mass/Vol] 318.0 pg/mL Normal <=1,800.0 The [facility] Comment on above: Performed By: #### B MANAGER PHILOSOPHY, CMP #### [facility] [address] [place] [address] Dr. Arden Magallon CBC AUTO DIFFon 04-15-2022 BASO # 0.2 103/ul Critically high 0.0-0.1 [facility] Comment on above: Performed By: #### P T, DDIM #### [facility] [address] [place] [address] Dr. Arden Magallon Basophils/100 WBC (Bld) 2.2 % Critically high 0.2-2.0 [facility] Comment on above: Performed By: #### P T, DDIM #### [facility] [address] [place] [address] Dr. Arden Magallon EO # 0.5 103/ul Normal 0.0-0.7 The [facility] Comment on above: Performed By: #### P T, DDIM #### [facility] [address] [place] [address] Dr. Arden Magallon Eosinophils/100 WBC (Bld) 6.2 % Normal 0.9-7.0 The [facility] Comment on above: Performed By: #### P T, DDIM #### [facility] [address] [place] [address] Dr. Arden Magallon Erythrocyte distribution width (RBC) [Ratio] 14.0 % Normal 11.0-15.0 The [facility] Comment on above: Performed By: #### P T, DDIM #### [facility] [address] [place] [address] Dr. Arden Magallon Hematocrit (Bld) [Volume fraction] 41.6 % Normal 36.0-48.0 [facility] Comment on above: Performed By: #### P T, DDIM #### [facility] [address] [place] [address] Dr. Arden Magallon Hemoglobin (Bld) [Mass/Vol] 13.8 g/dL Normal 12.0-16.0 [facility] Comment on above: Performed By: #### P T, DDIM #### [facility] [address] [place] [address] Dr. Arden Magallon IG # 0.01 10e3/ul Normal 0.00-0.03 [facility] Comment on above: Performed By: #### P T, DDIM #### [facility] [address] [place] [address] Dr. Arden Magallon IG % 0.1 % Normal 0.0-0.5 [facility] Comment on above: Performed By: #### P T, DDIM #### [facility] [address] [place] [address] Dr. Arden Magallon LYMPH # 3.2 103/ul Normal 1.2-3.8 [facility] Comment on above: Performed By: #### P T, DDIM #### [facility] [address] [place] [address] Dr. Arden Magallon Lymphocytes/100 WBC (Bld) 37.2 % Normal 20.5-60.0 [facility] Comment on above: Performed By: #### P T, DDIM #### [facility] [address] [place] [address] Dr. Arden Magallon MANUAL DIFF REQ NO Normal [facility] Comment on above: Performed By: #### P T, DDIM #### [facility] [address] [place] [address] Dr. Arden Magallon MCH (RBC) [Entitic mass] 31.0 pg Normal 26.7-34.0 [facility] Comment on above: Performed By: #### P T, DDIM #### [facility] [address] [place] [address] Dr. Arden Magallon MCHC (RBC) [Mass/Vol] 33.2 g/dL Normal 29.9-35.2 [facility] Comment on above: Performed By: #### P T, DDIM #### [facility] [address] [place] [address] Dr. Arden Magallon MCV (RBC) [Entitic vol] 93.5 fL Normal 81.0-99.0 [facility] Comment on above: Performed By: #### P T, DDIM #### [facility] [address] [place] [address] Dr. Arden Magallon MONO # 0.8 103/ul Normal 0.3-0.8 [facility] Comment on above: Performed By: #### P T, DDIM #### [facility] [address] [place] [address] Dr. Arden Magallon Monocytes/100 WBC (Bld) 9.4 % Normal 1.7-12.0 [facility] Comment on above: Performed By: #### P T, DDIM #### [facility] [address] [place] [address] Dr. Arden Magallon NEUT # 3.9 103/ul Normal 1.4-6.5 [facility] Comment on above: Performed By: #### P T, DDIM #### [facility] [address] [place] [address] Dr. Arden Magallon Neutrophils/100 WBC (Bld) 44.9 % Normal 43.0-75.0 The [facility] Comment on above: Performed By: #### P T, DDIM #### [facility] [address] [place] [address] Dr. Arden Magallon Platelet mean volume (Bld) [Entitic vol] 10.7 fL Normal 9.5-13.5 [facility] Comment on above: Performed By: #### P T, DDIM #### [facility] [address] [place] [address] Dr. Arden Magallon PLT 158 103/ul Normal 150-450 [facility] Comment on above: Performed By: #### P T, DDIM #### [facility] [address] [place] [address] Dr. Arden Magallon RBC 4.45 106/ul Normal 4.20-5.40 [facility] Comment on above: Performed By: #### P T, DDIM #### [facility] [address] [place] [address] Dr. Arden Magallon WBC 8.7 103/ul Normal 4.0-11.0 [facility] Comment on above: Performed By: #### P T, DDIM #### [facility] [address] [place] [address] Dr. Arden Magallon PROF 14(COMP METB)on 022 Albumin [Mass/Vol] 4.2 g/dL Normal 3.4-5.0 [facility] Comment on above: Performed By: #### B MANAGER PHILOSOPHY, CMP #### [facility] [address] [place] [address] Dr. Arden Magallon Albumin/Globulin [Mass ratio] 1.2 {ratio} Normal [facility] Comment on above: Performed By: #### B MANAGER PHILOSOPHY, CMP #### [facility] [address] [place] [address] Dr. Arden Magallon ALP [Catalytic activity/Vol] 75 U/L Normal 46-116 [facility] Comment on above: Performed By: #### B MANAGER PHILOSOPHY, CMP #### [facility] [address] [place] [address] Dr. Arden Magallon ALT [Catalytic activity/Vol] 31 U/L Normal 14-59 [facility] Comment on above: Performed By: #### B MANAGER PHILOSOPHY, CMP #### [facility] [address] [place] [address] Dr. Arden Magallon Anion gap [Moles/Vol] 11.6 mmol/L Normal [facility] Comment on above: Performed By: #### B MANAGER PHILOSOPHY, CMP #### [facility] [address] [address] [address] Arden Magallon AST [Catalytic activity/Vol] 16 U/L Normal 15-37 [facility] Comment on above: Performed By: #### B MANAGER PHILOSOPHY, CMP #### [facility] [address] [address] [address] Arden Magallon Bilirubin [Mass/Vol] 0.4 mg/dL Normal 0.2-1.0 [facility] Comment on above: Performed By: #### B MANAGER PHILOSOPHY, CMP #### [facility] [address] [place] [address] Dr. Arden Magallon Calcium [Mass/Vol] 9.7 mg/dL Normal 8.5-10.1 [facility] Comment on above: Performed By: #### B MANAGER PHILOSOPHY, CMP #### [facility] [address] [place] [address] Dr. Arden Magallon Chloride [Moles/Vol] 106 mmol/L Normal 98-107 [facility] Comment on above: Performed By: #### B MANAGER PHILOSOPHY, CMP #### [facility] [address] [place] [address] Dr. Arden Magallon CO2 [Moles/Vol] 25.2 mmol/L Normal 21.0-32.0 [facility] Comment on above: Performed By: #### B MANAGER PHILOSOPHY, CMP #### [facility] [address] [place] [address] Dr. Arden Magallon Creatinine [Mass/Vol] 1.06 mg/dL Critically high 0.55-1.02 [facility] Comment on above: Performed By: #### B MANAGER PHILOSOPHY, CMP #### [facility] [address] [place] [address] Dr. Arden Magallon EGFR-AF CROATIAN 60 mL/min/1.73m2 Normal >=60 [facility] Comment on above: Performed By: #### B MANAGER PHILOSOPHY, CMP #### [facility] [address] [place] [address] Dr. Arden Magallon EGFR-NON AF CROATIAN 49 mL/min/1.73m2 Critically low >=60 [facility] Comment on above: Performed By: #### B MANAGER PHILOSOPHY, CMP #### [facility] [address] [address] [address] Arden Magallon Globulin (S) [Mass/Vol] 3.4 g/dL Normal [facility] Comment on above: Performed By: #### B MANAGER PHILOSOPHY, CMP #### [facility] [address] [address] [address] Arden Magallon Glucose [Mass/Vol] 123 mg/dL Critically high 74-106 [facility] [place] Comment on above: Performed By: #### B MANAGER PHILOSOPHY, CMP #### [facility] [address] [place] [address] Dr. Arden Magallon Potassium [Moles/Vol] 3.8 mmol/L Normal 3.5-5.1 [facility] Comment on above: Performed By: #### B MANAGER PHILOSOPHY, CMP #### [facility] [address] [place] [address] Dr. Arden Magallon Protein [Mass/Vol] 7.6 g/dL Normal 6.4-8.2 [facility] Comment on above: Performed By: #### B MANAGER PHILOSOPHY, CMP #### [facility] [address] [place] [address] Dr. Arden Magallon Sodium [Moles/Vol] 139 mmol/L Normal 136-145 [facility] Comment on above: Performed By: #### B MANAGER PHILOSOPHY, CMP #### [facility] [address] [place] [address] Dr. Arden Magallon Urea nitrogen [Mass/Vol] 22.0 mg/dL Critically high 7.0-18.0 [facility] Comment on above: Performed By: #### B MANAGER PHILOSOPHY, CMP #### [facility] [address] [place] [address] Dr. Arden Magallon Urea nitrogen/Creatinine [Mass ratio] 20.8 mg/mg Normal [facility] Comment on above: Performed By: #### B MANAGER PHILOSOPHY, CMP #### [facility] [address] [place] [address] Dr. Arden Magallon ECHOCARDIO M/2D COMPLETEon 0 04-06-2022 ECHOCARDIO M/2D COMPLETE Patient: LUKAS EFRAINDaisha Julio Exam Date: 04/06/2022 : 1935 Gender:F Ordering : HERMELINDA HUGO Admission #: [id number] Family : Order #: [id number] CLICK HERE TO VIEW EXAM ECHOCARDIOGRAM REPORT [...] Area(A4C): 16.40 cm2 Left Atrium Systolic Volume(A2C): 94777 mm3 Left Atrium Systolic Volume(A4C): 06079 mm3 Mitral Valve MV E to A Ratio: 0.60 Deceleration [place]: 2080 mm/s2 Mitral Valve A-Wave Peak Velocity: 103.00 cm/s Mitral Valve E-Wave Peak Velocity: 62.20 cm/s Right Ventricle RV Internal Diastolic Dimension: 3.04 cm Aorta AO Root Diam: 2.90 cm Aortic Valve AoV Area (Peak Bucky): 1.86 cm2 Deceleration [place]: 1080 mm/s2 Pressure Half-Time: 976 ms Peak [...] Alin Lisa M.D. on 04/06/2022 at 16:27 [facility] US KIDNEYSon 04-06-2022 US KIDNEYS [...] BERTHA SOLIZ Date: 2022-04-06 16:45 Normal The [facility] BNPon 03-17-2022 Natriuretic peptide B (Bld) [Mass/Vol] 193.0 pg/mL Normal <=1,800.0 The [facility] Comment on above: Performed By: #### B MANAGER PHILOSOPHY, CMP #### [facility] [address] [place] [address] Dr. Arden Magallon CBC AUTO DIFFon 03-17-2022 BASO # 0.1 103/ul Normal 0.0-0.1 The [facility] Comment on above: Performed By: #### B MANAGER PHILOSOPHY, CMP #### [facility] [address] [place] [address] Dr. Arden Magallon Basophils/100 WBC (Bld) 0.9 % Normal 0.2-2.0 The [facility] Comment on above: Performed By: #### B MANAGER PHILOSOPHY, CMP #### [facility] [address] [place] [address] Dr. Arden Magallon EO # 0.4 103/ul Normal 0.0-0.7 [facility] Comment on above: Performed By: #### B MANAGER PHILOSOPHY, CMP #### [facility] [address] [place] [address] Dr. Arden Magallon Eosinophils/100 WBC (Bld) 4.7 % Normal 0.9-7.0 [facility] Comment on above: Performed By: #### B MANAGER PHILOSOPHY, CMP #### [facility] [address] [place] [address] Dr. Arden Magallon Erythrocyte distribution width (RBC) [Ratio] 14.2 % Normal 11.0-15.0 [facility] Comment on above: Performed By: #### B MANAGER PHILOSOPHY, CMP #### [facility] [address] [place] [address] Dr. Ardne Magallon Hematocrit (Bld) [Volume fraction] 43.1 % Normal 36.0-48.0 The [facility] Comment on above: Performed By: #### B MANAGER PHILOSOPHY, CMP #### [facility] [address] [place] [address] Dr. Arden Magallon Hemoglobin (Bld) [Mass/Vol] 14.1 g/dL Normal 12.0-16.0 [facility] Comment on above: Performed By: #### B MANAGER PHILOSOPHY, CMP #### [facility] [address] [place] [address] Dr. Arden Magallon IG # 0.04 10e3/ul Critically high 0.00-0.03 [facility] Comment on above: Performed By: #### B MANAGER PHILOSOPHY, CMP #### [facility] [address] [place] [address] Dr. Arden Magallon IG % 0.5 % Normal 0.0-0.5 [facility] Comment on above: Performed By: #### B MANAGER PHILOSOPHY, CMP #### [facility] [address] [place] [address] Dr. Arden Magallon LYMPH # 3.0 103/ul Normal 1.2-3.8 The [facility] Comment on above: Performed By: #### B MANAGER PHILOSOPHY, CMP #### [facility] [address] [place] [address] Dr. Arden Magallon Lymphocytes/100 WBC (Bld) 34.2 % Normal 20.5-60.0 [facility] Comment on above: Performed By: #### B MANAGER PHILOSOPHY, CMP #### [facility] [address] [place] [address] Dr. Arden Magallon MANUAL DIFF REQ NO Normal [facility] Comment on above: Performed By: #### B MANAGER PHILOSOPHY, CMP #### [facility] [address] [place] [address] Dr. Arden Magallon MCH (RBC) [Entitic mass] 31.3 pg Normal 26.7-34.0 The [facility] Comment on above: Performed By: #### B MANAGER PHILOSOPHY, CMP #### [facility] [address] [place] [address] Dr. Arden Magallon MCHC (RBC) [Mass/Vol] 32.7 g/dL Normal 29.9-35.2 The [facility] Comment on above: Performed By: #### B MANAGER PHILOSOPHY, CMP #### [facility] [address] [place] [address] Dr. Arden Magallon MCV (RBC) [Entitic vol] 95.8 fL Normal 81.0-99.0 [facility] Comment on above: Performed By: #### B MANAGER PHILOSOPHY, CMP #### [facility] [address] [place] [address] Dr. Arden Magallon MONO # 1.2 103/ul Critically high 0.3-0.8 [facility] Comment on above: Performed By: #### B MANAGER PHILOSOPHY, CMP #### [facility] [address] [place] [address] Dr. Arden Magallon Monocytes/100 WBC (Bld) 13.5 % Critically high 1.7-12.0 [facility] Comment on above: Performed By: #### B MANAGER PHILOSOPHY, CMP #### [facility] [address] [place] [address] Dr. Arden Magallon NEUT # 4.1 103/ul Normal 1.4-6.5 [facility] Comment on above: Performed By: #### B MANAGER PHILOSOPHY, CMP #### [facility] [address] [place] [address] Dr. Arden Magallon Neutrophils/100 WBC (Bld) 46.2 % Normal 43.0-75.0 [facility] Comment on above: Performed By: #### B MANAGER PHILOSOPHY, CMP #### [facility] [address] [place] [address] Dr. Arden Magallon Platelet mean volume (Bld) [Entitic vol] 11.2 fL Normal 9.5-13.5 The [facility] Comment on above: Performed By: #### B MANAGER PHILOSOPHY, CMP #### [facility] [address] [place] [address] Dr. Arden Magallon PLT 160 103/ul Normal 150-450 [facility] Comment on above: Performed By: #### B MANAGER PHILOSOPHY, CMP #### [facility] [address] [place] [address] Dr. Arden Magallon RBC 4.50 106/ul Normal 4.20-5.40 The [facility] Comment on above: Performed By: #### B MANAGER PHILOSOPHY, CMP #### [facility] [address] [place] [address] Dr. Arden Magallon WBC 8.9 103/ul Normal 4.0-11.0 [facility] Comment on above: Performed By: #### B MANAGER PHILOSOPHY, CMP #### [facility] [address] [place] [address] Dr. Arden Magallon PROF 14(COMP METB)on 022 Albumin [Mass/Vol] 4.0 g/dL Normal 3.4-5.0 [facility] Comment on above: Performed By: #### B MANAGER PHILOSOPHY, CMP #### [facility] [address] [place] [address] Dr. Arden Magallon Albumin/Globulin [Mass ratio] 1.2 {ratio} Normal [facility] Comment on above: Performed By: #### B MANAGER PHILOSOPHY, CMP #### [facility] [address] [place] [address] Dr. Arden Magallon ALP [Catalytic activity/Vol] 74 U/L Normal 46-116 [facility] Comment on above: Performed By: #### B MANAGER PHILOSOPHY, CMP #### [facility] [address] [place] [address] Dr. Arden Magallon ALT [Catalytic activity/Vol] 28 U/L Normal 14-59 [facility] Comment on above: Performed By: #### B MANAGER PHILOSOPHY, CMP #### [facility] [address] [place] [address] Dr. Arden Magallon Anion gap [Moles/Vol] 11.9 mmol/L Normal [facility] Comment on above: Performed By: #### B MANAGER PHILOSOPHY, CMP #### [facility] [address] [place] [address] Dr. Arden Magallon AST [Catalytic activity/Vol] 18 U/L Normal 15-37 [facility] Comment on above: Performed By: #### B MANAGER PHILOSOPHY, CMP #### [facility] [address] [place] [address] Dr. Arden Magallon Bilirubin [Mass/Vol] 0.4 mg/dL Normal 0.2-1.0 [facility] Comment on above: Performed By: #### B MANAGER PHILOSOPHY, CMP #### [facility] [address] [address] [address] Arden Magallon Calcium [Mass/Vol] 9.7 mg/dL Normal 8.5-10.1 [facility] Comment on above: Performed By: #### B MANAGER PHILOSOPHY, CMP #### [facility] [address] [address] [address] Arden Magallon Chloride [Moles/Vol] 105 mmol/L Normal 98-107 [facility] Comment on above: Performed By: #### B MANAGER PHILOSOPHY, CMP #### [facility] [address] [address] [address] Arden Magallon CO2 [Moles/Vol] 26.3 mmol/L Normal 21.0-32.0 [facility] Comment on above: Performed By: #### B MANAGER PHILOSOPHY, CMP #### [facility] [address] [address] [address] Arden Magallon Creatinine [Mass/Vol] 1.31 mg/dL Critically high 0.55-1.02 [facility] Comment on above: Performed By: #### B MANAGER PHILOSOPHY, CMP #### [facility] [address] [address] [address] Arden Magallon EGFR-AF CROATIAN 47 mL/min/1.73m2 Critically low >=60 [facility] Comment on above: Performed By: #### B MANAGER PHILOSOPHY, CMP #### [facility] [address] [address] [address] Arden Magallon EGFR-NON AF CROATIAN 38 mL/min/1.73m2 Critically low >=60 [facility] Comment on above: Performed By: #### B MANAGER PHILOSOPHY, CMP #### [facility] [address] [address] [address] Arden Magallon Globulin (S) [Mass/Vol] 3.3 g/dL Normal [facility] Comment on above: Performed By: #### B MANAGER PHILOSOPHY, CMP #### [facility] [address] [address] [address] Arden Magallon Glucose [Mass/Vol] 111 mg/dL Critically high 74-106 [facility] Comment on above: Performed By: #### B MANAGER PHILOSOPHY, CMP #### [facility] [address] [address] [address] Arden Magallon Potassium [Moles/Vol] 4.2 mmol/L Normal 3.5-5.1 [facility] Comment on above: Performed By: #### B MANAGER PHILOSOPHY, CMP #### [facility] [address] [address] [address] Arden Magallon Protein [Mass/Vol] 7.3 g/dL Normal 6.4-8.2 [facility] Comment on above: Performed By: #### B MANAGER PHILOSOPHY, CMP #### [facility] [address] [address] [address] Arden Magallon Sodium [Moles/Vol] 139 mmol/L Normal 136-145 [facility] Comment on above: Performed By: #### B MANAGER PHILOSOPHY, CMP #### [facility] [address] [address] [address] Arden Magallon Urea nitrogen [Mass/Vol] 24.0 mg/dL Critically high 7.0-18.0 [facility] Comment on above: Performed By: #### B MANAGER PHILOSOPHY, CMP #### [facility] [address] [place] [address] Dr. Arden Magallon Urea nitrogen/Creatinine [Mass ratio] 18.3 mg/mg Normal [facility] Comment on above: Performed By: #### B MANAGER PHILOSOPHY, CMP #### [facility] [address] [place] [address] Dr. Arden Magallon TROPONIN, HIGH SENSITIVITYon 03-17-2022 HSTROP 8.6 pg/mL Normal 4.0-51.3 [facility] Comment on above: Result Comment: CUT- OFF POINTS HAVE BEEN ESTABLISHED BASED ON THE FOURTH UNIVERSAL DEFINITIONS OF MYOCARDIAL INFARCTION. THE UPPER REFERENCE LIMIT (URL) OF TROPONIN, DEFINED THE 99TH PERCENTILE OF cTnI DISTRIBUTION IN A REFERENCE POPULATION, HAS BEEN CONFIRMED THE DECISION THRESHOLD FOR [place] DIAGNOSIS. Performed By: #### C BC #### [facility] [address] [place] [address] Dr. Arden Magallon Coding Summary.on 03-04-2022 Coding Summary. CD:[id number] Gh 0bWw+PGhlYWQ+DU4VOPQeO 09lpBTjrC3DH9lADC8QFKF UQOTYKU9IOW6wjXW8VAcpO 2VybiAv LjfalGUkLT49CTt3IXE4rT bkTAoxdY9beOMiJ3s0SiZq ON27bP73XOcxYBHcKuA6Rb ZpbjsgbWFy F2ocJzNthUQcEbq+PHRhYm xlIHdpZHRoPScxMDAlJyBz xRygLB1tPy9zUTBdWDXvmC xhcHNlOiBj l8rmUIOlCVgzZI5sdGmlO6 MprCA1OCMxt6e8Nn96iJI+ LLKlVKD5sFaaYOxfp273Xm Bkx5azZYH5 lVEhJFyyIPV0U01zb3C7HR YbVDSeAAL8kSY1yA2xfYko cikrX4AkhHOmMfE1WJS1oY BedH1kwWcs lmahdB7zBsu+H96QBU1GSP YUYM9XAtu6J2MjJacjzHZ+ KU23RQFrNU79dWDguZTni9 gutXw3OlKe MOWoYWR7sFwrAYqfz6KdEF WuT76csWKea8P1NEQsyDpp pZUcIaZmxHH5vZ7pGQivgp gmk5uvwxbd Ocmzk5rulq75yI11P33uUW hjWUPjQNA0PAOcIMXcqBkj ms8uoZ5qCw1+KGadj1jlc2 mggOm6LiSz SZDynrFbeEnmGJU3o8HhDi 74N2LtsWzvp5EjLlx2fj39 aFMoq4V3nCF1CUmiVBYtzI 0uPJacVeI6 GZJxDzKnyY22mYWdRVupDp 2coOrjrXvcIN0wLNSqptxl AFZczW9iZPVmlXJbcMbhBS 4wNTBpbjtm m542OxShZHJ3OZZleTObX2 FyeP5sWlYxGLDnDPMkP2Cu qGCpQVjoQ434ZGppViP4JW GoemKqB1Cu PCSgyWpxNkZ8z1U5En2Ro1 FssktbGEU7GMfdQGQ0VrG4 SePgEqO2Q4SkHix3IWXacE sqFT9lE7Tr GZKeqjxfaraqcWR3FOXqSI HneC87hYMrWHlnPx1st5B0 i887VVXnZQWibW07Wy1isK ogMTBwdCBU zZ2toenrh7kxmcjdRdNdCL PdJYf4HDk4YKEdqEliKrOn RIK9QvX8ZNK4oLWgvJ8xfL qzdlsseW3q Oyc+V05eaC9oBFL0LUJ1vx vyMJKqewRnAB44BO25J9Hr PjwvdGFibGU+PGRpdiBzdH fcPG4mDvUp e5cpq2KqXYmxW0TrIJLoTT gkHon6AMWyAHO8aSE8vQ9k MWVeOGman0P9cOP3K8Zcpw Ubtf0il7bc XKLtYNjoZ42cyPQgn0B0KF SerVP3QLBbbBpxJoLerM26 Oyc+UZYjpBrgk2VwTsgej6 hjv6xprGm5 QnJmWORqxpMmxJseCZY8e9 BbDj12J77xMBxtBPSjQNTb APGbLYBvrPcxeh0pxE1tDx 8+PGNvbCB3 wDX7nM6uPUPoRiF1HFfyG0 76HnGblSSlZjjid4ewc0rk rXw2PiUhRVZahkBrkZpdIB K6g3FdWl79 B72jCCgaBHRdMATfWMLlUB SrnDdqrg1moP7jRw5+PC9j n8upoy40pG94kOC+PHRkIH T6kShdAMok FLXfvS2vUIiyKoZ6GPVgHp WeuG78pBQxDHtwYv0qbEdl aTgtDP9gLQFykvmed137Ji Ikd6oaGQFq aADgTTevWKH6O18rq9S3VR OjUWKbNWY8aKR9kN4fzNid bjogbGVmdDsgdmVydGljYW hqGHxiV250 IHRvcDsnPlBhdGllbnQgTm FcVVx7Y1XjQqv0EFFfgYfr WD6zqOIrIHkaEj6jqVgwgQ jgGG4oGKBe paqhu679HyXtz6bqDSNkbW RkKGovFNI0U41ug2E9HJMz CJWqQBO2aKN9eC2vhIdtrc ogbGVmdDsg vuZyoHrhMOxxUFdfH004DP RvcDsnPkJpcnRoIERhdGU6 WS88TL45uLPew5H7zBV0P8 BhZGRpbmct ypqrlAM8JKQqAYTylH11Ev 3wbPgwRk3tYZWfWIL9AHWk rYAgJ9NijY8yNnWiFUIpJI HlY8UlyNDa CIarE374SBjjNkO1ZAZwtx YbZ2LpSDXqdHjhKrQ5e6K7 Os3EB4W6XY37NB11mIXoq2 G9lXE1I7Zf JFVqwrrbgfcgoDW0RRKcXL KpcR58Gw2jqXwbIw3vWVLd FTE0KTLzqYHyQ8GbuB0lLu AjMDAwMDAw G2FjpGYuQDppE211XVtsLf P7WGHyepBlI0JnURUcoPor DmL2j1T6Op5XPBr0PM01RL 84nWKhl5P9 lXP6V0ViSPSfaxpjcakbqP O8WHWvHGHepP39Tw6tsDrh Re4iLPEdKEW3OQPvsLQfU7 QgiD2wWiTb YOTpIOBsP2PrfBCfXSxsB0 47ZNmtCuW5JBBoxoQxN9Da ZTFmcNlfAbO5v6L6Rm7GPF BzZQ78FRB4 fAN6ZF33ZZ24B2PhZjbifX FibGU+PHRhYmxlIHdpZHRo HSxmNNQjNfIrzCnkKF3dPy 9yZGVyLWNv eCnrzIAgSfYjc6iqSHXcIG vgPQ4bqWwqY9ReoSB1DRLe o7y1Si91O95tP2QkmFG+PG CsjCR1rAL1 gU4zMbQeSwJ6AIuzR943Jr RnvCIzQfxdu0wup2gbqKb6 NeD3LXXbfbVjxBqbUDF1d8 JqDm87H17e IHdpZHRoPSIxNSUiIHZhbG fdef4cuW7rFh6+PGNvbCB3 wPN8wF6jRiZuKkS5MXqoE0 49InRvcCIv Kkvhg1mlt1sgmYs5AeNfBM IvguGkgScbGVB7s5MdJm50 N8KpfFqtg3MoMhf2fv76zB Imk8H9eTN8 R9BzOGQfwgqfjBMwnDbcWZ 2dARLznogcRODaqF3yMIUz T4y5ZkFmVfO2DYchD1Rcvn F2LEPlwTLb WLniKZI5Q44bt3L1SVSdFK KeLMJ3qCR2rA1stQicnfxr bGVmdDsgdmVydGljYWwtYW rrH445TYRp yQakBCXcpG0pJKKgcYOdvD rxMN4uUBFpvkhzUlACQGZb LCBERUxFRTwvdGQ+PHRkIH O2sKquMEmz DPEapP1nHXFmT0t9VlKcKd P8QExwZ8PiQIQkizcsQz82 kM0mWvNvOvE1BPavV5Hiyg P4VXAfzUGt HVvmQKA7W88qn7O1FEMnUC HoVAZ0dPE2qE2dcWrrghfh bGVmdDsgdmVydGljYWwtYW ydD630OHQf eGjvWpZoAwB7KcX4SkF7I2 BtByr5NQIdnIdgUY2rpCOc MTwmKa5jpJugcJxkIA8kUI BpbjtwYWRk eJ4vQXVbtGZriOltXQ2vJU Zwdtmrz463IyMsHKR6PSDp wTZkO7FyoR0cGcYiLUTtNP ZxF1JvsNKb FFiiL417HCyxEnJ7VBNmqn KqV2KxMYStdPlhSpO5e5G1 Op54GgIXJCGhbbjgxBP+PH CgZGZ5bFah QWplEWSmuC8aTQKaR9d7Vt InBrD0LNjhE6MrHCWudzlw Hb49qT0xXfAeDgU1WDjaU7 VtshL9YTPx dPKlJHlvYUH8S77sl0V4TT OdWBIaQQA3cBL2cV2vsNav bjogbGVmdDsgdmVydGljYW dvJGgiL926 IHRvcDsnPkZlbWFsZTwvdG Q+XACqEAL2jAuwWExfPCUd dC1fYQVuA3t7YtKxBrL7QF zsC5HsBAKm iffzQm43vS1nYdOaNhY8RM csE4AoigE4ZLOfpKTtWBkz WHO6V97ym1V9UBSaONDzCK O8pNK6fQ8a bGlnbjogbGVmdDsgdmVydG raRAclGUqhC056JIImuMuf XyRyIRVpUN7ryTyufRS+PC 37xx46O0Ym JgyqItr0WXLwDMH3jHL3lZ 5uGXLtAGclp1F6fAH7M1Nf dpFylp3ct1jqHHGaFPkhV8 2erDZhf0H5 ZOZxeVG4TAHpwIwzHfKzlF 93Oyc+ONAkvLyjx4PpGeuf i8udr9ddbAy6LeUsWBZsub FsaWduPSJ0 m4IzJk40Q58lYYftLYHsEY YoPXSeJCAasWodsr5uyI9b Ii8+OHNhfHL3nKT5vD2xUj UtMaC4KErq F961MdAdmBUsRlgnw4rqc6 xztYd4IjMtNUXjkrEepUxy JVT3a5EvZv55L4MxtHwaz5 WfMzh1as56 cLTfd2N1kZJ2E7VvLZGtry jgvMDrzAzyZW5jQTMfggrq UPHfqN4oLKAiO1v5ZmGmOk E0LUohA8Hd heR9YCHgtFVoBMKnzNZVmF 0conpaq0nsqhdpDfZfSRDv RHe5SQd4PHVxgCtnRpJrAH V4PeG8KDM9 vNGjwL9drMeepgaxeG5iAy c+KXu6p2esjMAjQW7dgCH5 YN36HM14jWTxu9S1kCH9I4 BhZGRpbmct kdqwtNM9LYXrXRSndQ10Uy 5eeWrgRl4xRQHhWRN0UVAm iCYzT6RbkW2kFqQnHYIfGF OeT6UhqJMc YEgoY670DKxsNhW8JVQcyg XrC9YfYRQvtDsnCpP1e8S3 Jg9UCR95FQ70WG99nIZcd4 Q5oNZ2N6Vs KDPhppnuovzugGN0FNXrMI WmrC62Cu5ibXnpGu6rUROz CEX5UDPsvBDtX4GjjQ8pKp AjMDAwMDAw N0MaiXLfKYvkH179WTtqJe H2TEGdgqAzM5WqBFFacHhd QtB2x6A3Ox6GZn88JN96WL 95pLPsg1H3 vNS4O1JdPHAnrtczwsnjeR C0GYRwJLIfyU94Nd9rbWsi Ir2bIKGwNJQ9TEIizEDwP7 LxdE5oSbYt BCMeRTSdT9ZfmOAiMVelO2 63AUjnMhE9WHXrteFvX4Em JONqbGinTyY9d9V9Qv8NAN yeqcc7J2Qa PjwvdHI+HY16XZMkNW88uF MdjNBmg6dixZd4TnOyHGPs DMS9fTtsFFzra9HoNHGzY9 9rqGUlr8W2 IGNv (more content not included)... Normal [facility] Auto Diffon 02-24-2022 Basophils/100 WBC (Bld) 4.4 % High 0.0-2.0 [facility] Comment on above: Order Comment: Order Added by Discern Expert. Performed By: #### 1 [id number], 9128926, 07149765, 5660641, 9321548 #### [facility] [address] [place] [address] Basophils/Leukocytes Auto (Bld) [Pure # fraction] 0.3 E9/L High 0.0-0.2 [facility] Comment on above: Order Comment: Order Added by Discern Expert. Performed By: #### 1 [id number], 1410625, 69401399, 1690632, 6434819 #### [facility] [address] [place] [address] Eosinophils/100 WBC (Bld) 3.8 % Normal 0.0-8.0 [facility] Comment on above: Order Comment: Order Added by Discern Expert. Performed By: #### 1 9874039, 4127789, 66263301, 3213700, 3958387 #### [facility] [address] [place] [address] Eosinophils/Leukocyte s Auto (Bld) [Pure # fraction] 0.3 E9/L Normal 0.0-0.5 [facility] Comment on above: Order Comment: Order Added by Discern Expert. Performed By: #### 1 7399923, 5082649, 21960929, 8199073, 9529228 #### [facility] [address] [place] [address] Lymphocytes/100 WBC (Bld) 31.3 % Normal 14.0-50.0 [facility] Comment on above: Order Comment: Order Added by Andrew Expert. Performed By: #### 1 [id number], 2610490, 63012367, 8867743, 4829404 #### [facility] [address] [place] [address] Lymphocytes/Leukocyte s Auto (Bld) [Pure # fraction] 2.3 E9/L Normal 1.0-4.0 [facility] Comment on above: Order Comment: Order Added by Discern Expert. Performed By: #### 1 8134267, 1312886, 14756050, 4891156, 7480772 #### [facility] [address] [place] [address] Monocytes/100 WBC (Bld) 12.8 % Normal 4.0-14.0 [facility] Comment on above: Order Comment: Order Added by Andrew Expert. Performed By: #### 1 7767662, 3539882, 16005391, 1980276, 6622112 #### [facility] [address] [place] [address] Monocytes/Leukocytes Auto (Bld) [Pure # fraction] 0.9 E9/L Normal 0.2-1.0 [facility] Comment on above: Order Comment: Order Added by Andrew Expert. Performed By: #### 1 8528045, 3954494, 11294949, 8181703, 8828041 #### [facility] [address] [place] [address] Neutrophils/100 WBC (Bld) 47.7 % Normal 36.0-75.0 [facility] Comment on above: Order Comment: Order Added by Andrew Expert. Performed By: #### 1 7390399, 8107842, 62244480, 5725936, 7617730 #### [facility] [address] [place] [address] Neutrophils/Leukocyte s Auto (Bld) [Pure # fraction] 3.5 E9/L Normal 2.0-7.5 [facility] Comment on above: Order Comment: Order Added by Andrew Expert. Performed By: #### 1 4817875, 2034551, 89814207, 6565022, 9406609 #### [facility] [address] [place] [address] BMPon 02-24-2022 Creatinine [Mass/Vol] 0.9 mg/dL Normal 0.5-1.3 [facility] Comment on above: Performed By: #### 1 3137923, 0719023, 56035795, 3647415, 1537815 #### [facility] [address] [place] [address] Urea nitrogen [Mass/Vol] 20 mg/dL Normal 5-21 [facility] Comment on above: Performed By: #### 1 7732921, 9224232, 50153724, 9174775, 6931909 #### [facility] [address] [place] [address] Urea nitrogen/Creatinine [Mass ratio] 22 No Units High 10-20 [facility] Comment on above: Performed By: #### 1 9120482, 2806646, 30532698, 3635530, 1567862 #### [facility] [address] [place] [address] Anion gap [Moles/Vol] 13 mmol/L Normal 6-16 [facility] Comment on above: Performed By: #### 1 2811645, 4532842, 39082404, 7764641, 4094274 #### [facility] [address] [place] [address] Calcium [Mass/Vol] 9.9 mg/dL Normal 8.9-11.1 [facility] Comment on above: Performed By: #### 1 9536096, 3437698, 07015422, 3870427, 7753878 #### [facility] [address] [place] [address] Chloride [Moles/Vol] 104 mmol/L Normal 101-111 [facility] Comment on above: Performed By: #### 1 5753762, 2492575, 79231943, 7025664, 0617175 #### [facility] [address] [place] [address] CO2 [Moles/Vol] 24 mmol/L Normal 21-31 [facility] Comment on above: Performed By: #### 1 1059592, 1353729, 57326735, 5676290, 0189256 #### [facility] [address] [place] [address] Glucose [Mass/Vol] 136 mg/dL Normal 55-199 [facility] Comment on above: Result Comment: If t his glucose result represents a fasting glucose, interpretation should refer to the following reference range: 55-99 mg/dL Performed By: #### 1 0621335, 4947915, 26642279, 9704652, 5314041 #### [facility] [address] [place] [address] Potassium [Moles/Vol] 3.7 mmol/L Normal 3.5-5.3 [facility] Comment on above: Performed By: #### 1 5836239, 2636030, 34599242, 8952694, 6077176 #### [facility] [address] [place] [address] Sodium [Moles/Vol] 137 mmol/L Normal 135-145 [facility] Comment on above: Performed By: #### 1 3182096, 6344818, 84665547, 6657445, 3802174 #### [facility] [address] [place] [address] CBC w/ Auto Diffon Erythrocyte distribution width (RBC) [Ratio] 15.3 % High 10.9-14.2 [facility] Comment on above: Performed By: #### 1 1716414, 0852583, 32020438, 0504071, 5146205 #### [facility] [address] [place] [address] Hematocrit (Bld) [Volume fraction] 43.0 % Normal 34.0-46.0 [facility] Comment on above: Performed By: #### 1 2230750, 8887979, 55594303, 7411424, 2053739 #### [facility] [address] [place] [address] Hemoglobin (Bld) [Mass/Vol] 14.4 g/dL Normal 12.0-16.0 [facility] Comment on above: Performed By: #### 1 7247731, 7848203, 90689459, 0542124, 8713010 #### [facility] [address] [place] [address] MCH (RBC) [Entitic mass] 31.0 pg Normal 27.0-34.0 [facility] Comment on above: Performed By: #### 1 3129486, 5630665, 63023519, 0373596, 3389018 #### [facility] [address] [place] [address] MCHC (RBC) [Mass/Vol] 33.6 g/dL Normal 31.4-36.0 [facility] Comment on above: Performed By: #### 1 8112683, 6887641, 57391299, 5351605, 3912163 #### [facility] [address] [place] [address] MCV (RBC) [Entitic vol] 92.2 fL Normal 80.0-100.0 [facility] Comment on above: Performed By: #### 1 6916611, 2987472, 96869228, 4066883, 4434357 #### [facility] [address] [place] [address] Platelet mean volume (Bld) [Entitic vol] 9.2 fL Normal 6.4-10.8 [facility] Comment on above: Performed By: #### 1 7151246, 1299829, 84128063, 1709301, 1812010 #### [facility] [address] [place] [address] Platelets (Bld) [#/Vol] 137.0 E9/L Low 150.0-500.0 [facility] Comment on above: Performed By: #### 1 1085840, 5552268, 54828989, 2196790, 0219222 #### [facility] [address] [place] [address] RBC (Bld) [#/Vol] 4.7 E12/L Normal 4.3-5.9 [facility] Comment on above: Performed By: #### 1 5082926, 2412198, 72898576, 8594725, 0482500 #### [facility] [address] [place] [address] WBC corrected for nucl RBC Auto (Bld) [#/Vol] 7.3 E9/L Normal 4.0-11.0 [facility] Comment on above: Performed By: #### 1 6113706, 2201847, 73194789, 1170469, 4871015 #### [facility] [address] [place] [address] CHEMISTRYOrdered By: [facility]hub on 02-24-2022 Anion gap [Moles/Vol] 13 mmol/L Normal 6 - 16 mEq/L F [facility] Remisol Calcium [Mass/Vol] 9.9 mg/dL Normal 8.9 [...] 25.4 s Normal 25.1 - 36.5 second(s) [facility] Auto Coag INR Coag (PPP) [Relative time] 1.1 {INR} Invalid Interpretation Code [facility] Auto Coag PT Coag (PPP) [Time] 13.4 s High 10.2 - 12.9 second(s) [facility] Auto Coag CT Head or Brain w/o [...] MD Transcribed by: KHANH Technologist: EMELINA Normal [facility] Consent for Treatmenton 02-06 Consent for Treatment [id number] 0CD:127 Normal [facility] Discharge Instructionson Discharge Instructions [id number] 0CD:127 Normal [facility] ED Clinical Summaryon 2021 ED Clinical Summary [address] [address] ED Clinical Summary Person Information Name: LUKAS[facility] Age[facility] 86 Years : 1935 Sex: Female Language: Citizen Of [place] PCP: AMELIA FREY MD Marital Status: Single [...] 02/24/2022 10:32:06 02/24/2022 10:32:06 02/24/2022 10:32:06 ADDRESS: [address] [place] [id number] PHYS DOC NOTES: MEDICAL INFORMATION: Prescriptions Given: PATIENT EDUCATION INFORMATION: Instructions: Hypertension, Adult Follow up: With: Address: When: AMELIA FREY [address] [place] [address] [facility] (1) In 3 days 02/27/2022 Comments: Increase Losartan to 100 mg a day. Continue Metoprolol 50 mg a day. Make sure to take your blood pressure twice a day and follow-up with Dr. Frey tomorrow at 1 PM at her office. Return to the emergency room if your headache recurs, chest pain, dizziness or any new symptoms. DIAGNOSIS: 1:Accelerated hypertension Normal [facility] ED Note-Physicianon 02-25-20 ED Note-Physician Basic [...] reported headache. Her blood pressure at the wound care coordinator office was 289/106. In the emergency room [...] AMELIA FREY In 3 days 02/27/2022 EDT [facility] [place] [address]- Business (1) Additional Instructions: Increase [...] (02/24/22 0 (more content not included)... Normal [facility] Comment on above: Result Comment: Elec [...] ? Avoi (more content not included)... Normal [facility] ED Patient Summaryon 022 ED Patient Summary [place] [address] Patient Discharge Instructions Person Information Name: ZORAIDA BARRIOS Age: 86 Years Arrival Date: 02/24/2022 08:11:05 Discharge Diagnosis: 1:Accelerated hypertension Primary Care Physician: AMELIA FREY MD Provider Information Primary Provider: Demond Green M.D. Advanced Business Information Analyst:None The exam and treatment you received in the Emergency Department were for an urgent problem and are not intended as complete care. It is important that you follow up with a doctor, nurse practitioner, or physician?s chemist assistant for ongoing care. If your symptoms [...] Follow-up Instructions: With: Address: When: AMELIA FREY [address] [place], [place] [id number] [facility] (1) In 3 days 02/27/2022 Comments: Increase [...] opioids can be used to help relieve jcusfhfj-op-nkqwkx pain and are often prescribed following a [...] ? Visit (more content not included)... Normal [facility] HEMATOLOGYOrdered By: SYSTEM SYSTEM on 02-24-2022 [...] [Relative time] 1.1 {INR} Invalid Interpretation Code [facility] Comment on above: Result Comment: INR results are specifically intended to assess patients stabilized on long-term Anticoagulation therapy suggested INR?s ?Less Intensive Anticoagulation? 2.0 ? 3.0 Conventional Range 3.0 ? 4.5 Performed By: #### 1 0120240, 3906107, 34753833, 7907286, 1948723 #### [facility] [address] [place] [address] PT Coag (PPP) [Time] 13.4 second(s) High 10.2-12.9 [facility] Comment on above: Performed By: #### 1 7823166, 5857862, 27372644, 0076310, 5923759 #### [facility] [address] [place] [address] aPTT Coag (PPP) [Time] 25.4 second(s) Normal 25.1-36.5 [facility] Comment on above: Result Comment: Hepa rin therapeutic range (represented by Anti-Factor Xa activity of 0.2 - 0.4 U/mL) corresponds to PTT of 56.6 - 109.0 sec. Performed By: #### 1 0020085, 9312874, 08375753, 3613825, 3265526 #### [facility] [address] [place] [address] Troponin 0 Hr.on 02-24-2022 Troponin I.cardiac [Mass/Vol] 8.10 pg/mL Low 10.10-27.10 [facility] Comment on above: Result Comment: The 95% CI (Confidence Interval) PPV (Positive Predictive Value) for myocardial infarction in females is 38 pg/mL, in males 51 pg/mL. The results should be used in conjunction with clinical conditions of myocardial infarction. (Access High Sensitivity Troponin I Instructions For Use, Gwendolyn Auburn, May 2018) Performed By: #### 1 1397200, 6350101, 39589629, 2664256, 9233711 #### [facility] [address] [place] [address] XR Chest Single Viewon 02-24 XR Chest [...] am EDT, Trevon Tyler M.D., DISAGREE Normal [facility] Vital Signs Date Time Vital Sign Value Performing Clinician Facility 07-09-2024 14:24-0400 Body height 157.48 cm [facility] 07-09-2024 14:24-0400 Body mass index (BMI) [Ratio] 24.3 kg/m2 [facility] 07-09-2024 14:24-0400 Body weight 60.46 kg [facility] 07-09-2024 14:24-0400 Diastolic blood pressure 98 mm[Hg] [facility] 07-09-2024 14:24-0400 Heart rate 57 /min [facility] 07-09-2024 14:24-0400 Systolic blood pressure 212 mm[Hg] [facility] 05-07-2024 13:44-0400 Body height 157.48 cm [facility] 05-07-2024 13:44-0400 Body mass index (BMI) [Ratio] 23.8 kg/m2 [facility] 05-07-2024 13:44-0400 Body weight 58.96 kg [facility] 05-07-2024 13:44-0400 Diastolic blood pressure 69 mm[Hg] [facility] 05-07-2024 13:44-0400 Heart rate 61 /min [facility] 05-07-2024 13:44-0400 Systolic blood pressure 189 mm[Hg] [facility] 01-08-2024 11:43-0400 Body height 157.48 cm [facility] 01-08-2024 11:43-0400 Body mass index (BMI) [Ratio] 22.8 kg/m2 [facility] 01-08-2024 11:43-0400 Body weight 56.84 kg [facility] 01-08-2024 11:43-0400 Diastolic blood pressure 72 mm[Hg] [facility] 01-08-2024 11:43-0400 Heart rate 61 /min [facility] 01-08-2024 11:43-0400 Systolic blood pressure 179 mm[Hg] [facility] 06-08-2023 14:30-0400 Body height 157.48 cm Amelia Frey Other [facility] Other 06-08-2023 14:30-0400 Body mass index (BMI) [Ratio] 23.13 kg/m2 Amelia Frey Other [facility] [employer] Other 06-08-2023 14:30-0400 Body weight 57.38 kg Amelia Frey Other [facility] [employer] Other 06-08-2023 14:30-0400 Diastolic blood pressure 77 mm[Hg] Amelia Frey Other [facility] Other 06-08-2023 14:30-0400 Respiratory rate 16 /min Amelia Frey Other [facility] Other 06-08-2023 14:30-0400 Systolic blood pressure 187 mm[Hg] Amelia Frey Other [facility] Other 12-20-2022 15:20-0400 Body height 157.48 cm Rox Watson Other [facility] Other 12-20-2022 15:20-0400 Body mass index (BMI) [Ratio] 23.08 kg/m2 Rox Watson Other [facility] Other 12-20-2022 15:20-0400 Body temperature 97 [degF] Rox Watson Other [facility] Other 12-20-2022 15:20-0400 Body weight 57.24 kg Rox Watson Other [facility] Other 12-20-2022 15:20-0400 Diastolic blood pressure 85 mm[Hg] Rox Watson Other [facility] Other 12-20-2022 15:20-0400 Respiratory rate 16 /min Rox Watson Other [facility] Other 12-20-2022 15:20-0400 SaO2% (BldA) [Mass fraction] 100 % Rox Watson Other [facility] Other 12-20-2022 15:20-0400 Systolic blood pressure 170 mm[Hg] Rox Watson Other [facility] Other 02-24-2022 10:12-0400 Diastolic blood pressure 80 mm[Hg] [facility] 02-24-2022 10:12-0400 Heart rate 68 /min [facility] 02-24-2022 10:12-0400 Respiratory rate 15 /min [facility] 02-24-2022 10:12-0400 SaO2% (BldA) [Mass fraction] 98 % [facility] 02-24-2022 10:12-0400 Systolic blood pressure 190 mm[Hg] [facility] 02-24-2022 09:24-0400 Diastolic blood pressure 88 mm[Hg] [facility] 02-24-2022 09:24-0400 Heart rate 66 /min [facility] 02-24-2022 09:24-0400 Respiratory rate 16 /min [facility] 02-24-2022 09:24-0400 SaO2% (BldA) [Mass fraction] 99 % [facility] 02-24-2022 09:24-0400 Systolic blood pressure 190 mm[Hg] [facility] 02-24-2022 08:50-0400 Diastolic blood pressure 100 mm[Hg] [facility] 02-24-2022 08:50-0400 Systolic blood pressure 220 mm[Hg] [facility] 02-24-2022 08:14-0400 Body temperature 98.24 [degF] [facility] 02-24-2022 08:14-0400 Heart rate 74 /min [facility] 02-24-2022 08:14-0400 Respiratory rate 18 /min [facility] 02-24-2022 08:14-0400 SaO2% (BldA) [Mass fraction] 99 % [facility] Encounters Encounter Date Encounter Type Care Provider Facility Start: 07-09-2024 End: 07-09-2024 ambulatory [facility] Work Phone: Start: 07-09-2024 End: 07-09-2024 Patient encounter procedure Count Includes [facility] Physician [facility] Work Phone: Start: 06-28-2024 End: 06-28-2024 ambulatory AALIYAH VIRGILIO [facility] Start: 05-15-2024 Non-patient / Non-visit Count Includes [facility] Physician [facility] Work Phone: Start: 05-11-2024 Non-patient / Non-visit Count Includes [facility] Physician [facility] Work Phone: Start: 05-10-2024 Non-patient / Non-visit [facility] Work Phone: Start: 05-07-2024 End: 05-07-2024 ambulatory [facility] Work Phone: Start: 05-07-2024 End: 05-07-2024 Patient encounter procedure Count Includes [facility] Physician [facility] Work Phone: Start: 05-01-2024 End: 05-01-2024 ambulatory [facility] Start: 04-25-2024 Non-patient / Non-visit [facility] Work Phone: Start: 03-28-2024 End: 03-28-2024 ambulatory [facility] Start: 01-08-2024 End: 01-08-2024 [facility] Start: 01-08-2024 End: 01-08-2024 ambulatory [facility] Work Phone: Start: 01-08-2024 End: 01-08-2024 Patient encounter procedure [facility] Work Phone: Start: 12-28-2023 Non-patient / Non-visit Count Includes [facility] Physician [facility] Work Phone: Start: 10-25-2023 End: 10-25-2023 ambulatory [facility] Start: 10-25-2023 End: 10-25-2023 Encounter for general adult medical examination without abnormal findings [facility] Start: 06-08-2023 End: 06-08-2023 ambulatory Amelia Frey Other [facility] Other Start: 06-08-2023 Office outpatient vi sit 15 minutes Amelia Frey [facility] Start: 05-25-2023 End: 05-25-2023 ambulatory Amelia Tk Other [facility] Other Start: 05-25-2023 Telephone encounter Amelia Tk [facility] Start: 04-25-2023 End: 04-25-2023 ambulatory Amelia Tk Other [facility] Other Start: 04-25-2023 Telephone encounter Amelia Tk [facility] Start: 03-23-2023 End: 03-23-2023 ambulatory Amelia Tk Other [facility] Other Start: 03-23-2023 Telephone encounter Amelia Tk [facility] Start: 02-20-2023 End: 02-20-2023 ambulatory Amelia Tk Other [facility] Other Start: 02-20-2023 Telephone encounter Amelia Tk [facility] Start: 01-17-2023 End: 01-17-2023 ambulatory Amelia Tk Other [facility] Other Start: 01-17-2023 Telephone encounter Amelia Tk [facility] Start: 12-20-2022 End: 12-20-2022 ambulatory Rox Watson Other [facility] Other Start: 12-20-2022 [facility] visit new patient Rox Watson [facility] Start: 12-19-2022 End: 12-19-2022 ambulatory Amelia Tk Other [facility] Other Start: 12-19-2022 Telephone encounter Amelia Tk [facility] Start: 12-10-2022 End: 12-11-2022 ambulatory AALIYAH POOLE Facility:[facility] Start: 11-15-2022 End: 11-15-[address] GEORGIE WELLER Facility:[facility] Start: 10-09-2022 End: 10-09-[address] RAMIRO Puentes Facility:[facility] Start: 09-30-2022 End: 10-01-2022 ambulatory FABIÁN HARRINGTON Facility:[facility] Start: 09-26-2022 End: 09-26-[address] HARJINDER RAMIREZ Facility:[facility] Start: 09-21-2022 End: 09-22-[address] MAELIA FREY Facility:[facility] Start: 09-18-2022 End: 09-18-2022 ambulatory [...] 02-24-2022 Emergency department patient visit Demond Green [facility] Procedures Date Procedure Procedure Detail Performing Clinician Start: 01-08-2024 Follow-up visit Follow-up HERMELINDA HUGO Plan of Treatment Date Care Activity Detail Author [facility] Payers Date Payer Category Payer Self-pay 1959 Unknown [id number] 1935 Unknown [id number] 2.16.84 0.1.763984.3.579.2.593 1935 Unknown [id number] 2.16.84 0.1.933631.3.579.2.593 1935 Unknown [id number] 2.16.84 0.1.608946.3.579.2.593 1935 Unknown [id number] 2.16.84 0.1.237310.3.579.2.593 1935 Unknown [id number] 2.16.84 0.1.938112.3.579.2.593 1935 Unknown [id number] 2.16.84 0.1.020113.3.579.2.593 1935 Unknown [id number] 2.16.84 0.1.530275.3.579.2.593 1935 Unknown [id number] 2.16.84 0.1.681087.3.579.2.593 1935 Unknown [id number] 2.16.84 0.1.591154.3.579.2.593 1935 Unknown [id number] 2.16.84 0.1.916969.3.579.2.593 1935 Unknown [id number] 2.16.84 0.1.391207.3.579.2.593 1935 Unknown [id number] 2.16.84 0.1.661107.3.579.2.593 1935 Unknown [id number] 2.16.84 0.1.023723.3.579.2.593 1935 Unknown [id number] 2.16.84 0.1.453432.3.579.2.593 1935 Unknown [id number] 2.16.84 0.1.478432.3.579.2.593 1935 Unknown [id number] 2.16.84 0.1.899279.3.579.2.593 1935 Unknown [id number] 2.16.84 0.1.415506.3.579.2.593 1935 Unknown [id number] 2.16.84 0.1.700934.3.579.2.593 1935 Unknown [id number] 2.16.84 0.1.870947.3.579.2.593 Medicare [id number] 2. 16.840.1.985647.19 Unknown [id number] Social History Date Type Detail Facility Tobacco smoking status Unknown i f ever smoked [facility] Sex Assigned At Female [facility] Start: 1935 Sex Assigned At Female F [facility] Clinical Notes 02-24-2022 to 06-28-2024 Note Date & Type Note Facility 06-28-2024 Note Per assessment heart rates in the 50s No concerning symptoms at this time We will continue to monitor Discussed with patient to call office for any lightheadedness, dizziness, passing out she voiced understanding [facility] 06-28-2024 Note Hypertension is stab le for her blood pressure log is very well-controlled in office is always elevated most likely related to whitecoat syndrome Continue medicines as prescribed including carvedilol, clonidine, hydralazine, losartan, spironolactone Renal function stable [facility] 06-28-2024 Note stable [facility] 06-28-2024 Note UTP CARDIOLOGY PROGR ESS [...] out she voiced understanding RTC 6 months [facility] 06-28-2024 Note Pt is here for three month follow up. Pt denies sob, chest pain, palpatations. Pt says one of her medications makes her dizzy but she does not know which one. Review of Systems Constitutional: Positive for diaphoresis (1 episode). Neurological: Positive for excessive daytime sleepiness (intermittent). All other systems reviewed and are negative. [facility] 05-01-2024 Note Hypertension is quit e [...] D, Thyroid function and Vitamin B levels. [facility] 05-01-2024 Note Currently stable [facility] 05-01-2024 Note Pt reports having no gely heart rate 49-50's, and denied any significant symptoms associated. Will continue to monitor and D/W pt to call office for lightheadedness, dizziness, near syncope or syncope and she voiced understanding [facility] 05-01-2024 Note [facility] CARDIOLOGY PROGR ESS NOTE HPI: Zoraida Barrios is a 88 y.o. female here for hospital F/U HPI 88 yo female presents today for hospital F/U after recent evaluation for bradycardia Patient here for follow up [facility] ED. Says she went shopping with [...] negative ED note- Patient: ZORAIDA BARRIOS MR#: [id number] : 1935 Acct:[id number] Age/Sex: 88 / F ADM Date: 04/25/24 [...] and time. P (more content not included)... [facility] 05-01-2024 Note Patient here for [facility] ED. Says she went shopping with a [...] All other systems reviewed and are negative. [facility] 03-28-2024 Note Stable Continue aldactone, fluid restriction and low sodium diet Continue regular exercise and activity [facility] 03-28-2024 Note Well controlled with aldactone currently no edema [facility] 03-28-2024 Note Hypertension is unch anged. Dietary sodium restriction. Continue current medications. Blood pressure will be reassessed in 3 months. [facility] 03-28-2024 Note Patient here for 2 m o follow up hypertension and diastolic dysfunction. She had routine labs in January 2024. She denies chest pain, SOB, palpitations, and syncope. Sometimes gets lightheaded upon standing up. Review of Systems Neurological: Positive for excessive daytime sleepiness and light-headedness. All other systems reviewed and are negative. [facility] 03-28-2024 Note [facility]TP CARDIOLOGY PROGR ESS [...] with her evening/bedtime meds, she voiced understanding [facility] 01-08-2024 Note [facility]TP CARDIOLOGY PROGR ESS [...] -Follow-up in cardiology clinic Hermelinda Hugo MD [facility] 2023 Note Currently stable [facility] 2023 Note Currently resolved a nd she has stopped lasix and potassium. D/W pt that if edema reoccurs she can take lasix with potassium as needed [facility] 2023 Note Hypertension is much better controlled with occasional hypotension that she knows when b/p is low and I relax and hydrate until I feel better. Continue hydralazine, coreg, clonidine, losartan and aldactone [facility] 2023 Note Currently stable [facility] 10-25-2023 Note [facility]TP CARDIOLOGY PROGR ESS [...] our last visit. States her trip to [facility] went very well and has a trip upcoming [facility] for skiing. Review of Systems Constitutional: Negative. [...] Edema, lower extr (more content not included)... [facility] 06-08-2023 Evaluation note Encounter Date Diagnosis Assessment Notes May, Other insomnia (ICD-10 - G47.09) Pt states the ativan does help her insomnia and bp. Denies over-sedation symptoms. 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 Recommend taking meds daily and keeping record and discussing bps w her provider there. [facility] Other 03-14-2023 Evaluation note* Encounter Date Diagnosis [...] pressure monitor reveals significantly better blood pressure [facility] Other 05-19-2022 Evaluation + Plan noteExtracted from: [...] Troponin 9 Hr. XR Chest Single [facility]05-19-2022 Hospital Discharge instructions Patient Education 02/24/2022 10:32:06 [...] care provider. This is important. Medicines Take [id number] and prescription medicines only as told by [...] 09/25/2006 Document Revised: 06/05/2019 Document Reviewed: 06/05/2019 [employer] [facility] [employer]. Follow Up Care 02/24/2022 08:13:52 With:AMELIA FREY Address: [address] [place] [id number] [address] (1) When:02/27/2022 10:23:00 Comments:Increase Losartan to 100 mg a day. Continue Metoprolol 50 mg a day. Make sure to take your blood pressure twice a day and follow-up with Dr. Frey tomorrow at 1 PM at her office. Return to the emergency room if your headache recurs, chest pain, dizziness or any new symptoms. [facility] InformationN[facility] Other Evaluation noteNo assessment information available [facility] Work Phone: Evaluation note* Diagnosis Onset Date Resolution Status Chronic kidney disease, stage 3b acute Resistant hypertension acute Weight gain, abnormal acute [facility] Work Phone: History general Narrative - Reported* Type Description Date Medical History HYPERTENSION Medical History RENAL IMPAIRMENT Medical History TOBACCO DEPENDENCE SYNDROME Surgical History TUBAL LIGATION Surgical History CHOLECYSTECTOMY Hospitalization History SEE ABOVE [facility] Other Hospital course Narrative No data available for this section [facility] Summary Purpose Family History Relationship Condition Age [...] and content) DATE CREATED AUTHOR 03/05/2022 [facility] DATE CREATED AUTHOR AUTHOR'S ORGANIZ ATION 12/13/2022 [facility] DATE CREATED AUTHOR AUTHOR'S ORGANIZ ATION 07/01/2024 [facility] REASON FOR VISIT (unrecogniz ed section [...] BE BASED ON THE PRIMARY CLINICAL RECORDS. [facility] [employer] [facility]. provides no warranty or guarantee of the accuracy or completeness of information in this document.
== END 2024-11-04 14:15 | disposition left against medical advice (07) ==
PROVIDERS: Emergency Provider Emergency Medicine; PCP Family Medicine
DX: Z53.21 Procedure and treatment not carried out due to patient leaving prior to being seen by health care provider (principal)

== ENCOUNTER 2024-12-22 20:07 | Emergency (ER) | payer MEDICARE, SELFPAY ==
[2024-12-22] VITALS (9 sets, daily range): BP systolic 174–198; BP diastolic 78–96; PULSE 54–63; TEMP 36.4; O2SAT 97; BMI 23.8
--- OUTSIDE RECORDS SUMMARY | 2024-12-22 20:13 | XMS_ITS | CCD ---
Author Organization [facility] CliniSymo Care Team Providers Care Emt Intermediate Name Role Phone AMELIA FREY Primary Care Physician SAURABH Puentes, DR RUBIO Consulting Unavailable SAURABH ., DR RUBIO Attending Unavailable SAURABH ., DR RUBIO Admitting Unavailable TK, DR AMELIA Ashton Primary Care Unavailable NITHIN, DR GEORGIE Bartholomew Consulting Unavailjavier WELLER, DR GEORGIE Bartholomew Attending Unavailjavier e NITHIN, DR GEORGIE Bartholomew Admitting Unavailabl [...] Ashton Attending Unavailable TK, DR AMELIA Ashton Admjames Unavailable AALIYAH POOLE Consulting Unavailable TK, DR AMELIA Ashton Primary Care Unavailable AALIYAH POOLE Attending Unavailable VIRGILIO, AALIYAH Admitting Unavailable VIRGILIO, [...] Primary Care Unavailable EVAN WALLIS Consulting Unavailable FABIÁN HARRINGTON Attending Unavailable ANIRUDH, FABIÁN Admitting Unavailable ANIRUDH, [...] FABIÁN Attending Unavailable ANIRUDH, FABIÁN Admitting Unavailable RFEY, DR AMELIA Ashton Primary Care Unavailable HAY [...] Attending Unavailable YOAV ., ASTRID Consulting Unavailable ALGHOTHGALINA, MOHAMAD Admitting Unavailable ALGHOLINSEY, HERMELINDA Attending Unavailable TK, DR AMELIA Ashton Primary Care Unavailable SAN JOSE, DR BERTHA Logan Consulting Unavailable ALGHOTHANI, MOHAMAD Consulting Unavailable Frey, Amelia Unavailable Adolfo Watsonaicha Unavailable VIRGILIOAALIYAH Reeder Attending Unavailable ALGHOLINSEY, HERMELINDA Attending Unavailable EDVIN GRUBBS Attending Unavailable VIRGILIO, AALIYAH Attending Unavailable VIRGILIO, AALIYAH Attending Unavailable Allergies Allergy Classification Reported Allergen(s) Allergy Type Date of Onset Reaction(s) Facility (1 source) Sulfonamides (Antibiotic); Translations: [sulfa drugs] Drug allergy Unknown [facility] (2 sources) Sulfonamides (Antibiotic) Drug allergy (disorder) 4 [facility] Repository (10 sources) Substance with sulfonamide structure and antibacterial mechanism of action (substance) Drug allergy Unknown [facility]Q Other (1 source) Spironolactone; Translations: [SPIRONOLACTONE] Drug Allergy 5 [facility] Repository (1 source) Sulfonamides (Antibiotic); Translations: [SULFA (SULFONAMIDE ANTIBIOTICS)] Propensity to adverse reactions to drug (disorder) 2 [facility] Repository Medications Current Medications Medication Drug Class(es) Dates Sig (Normalized) Sig (Original) amLODIPine 5 mg oral tablet (10 sources) Dihydropyridine Calcium Channel Atif take 1 tablet by mouth every twenty-four hours carvedilol 25 mg oral tablet (14 sources) alpha-Adrenergic Atif, beta-Adrenergic Atif Start: 01-08-2024 take 1 tablet by mouth twice daily at mealtime take 1 tablet by mouth every twe lve hours cloNIDine hydrochloride 0.2 mg oral tablet (15 sources) Central alpha-2 Adrenergic Agonist Start: 11-18-2024 take 1 tablet by mouth once daily in the morning Start: 01-08-2024 End: 11-18-2024 take 1 tablet by mouth twice daily take 1 tablet by mouth every twe lve hours furosemide 20 mg oral tablet (10 sources) Loop Diuretic hydrALAZINE hydrochloride 50 mg oral tablet (15 sources) Arteriolar Vasodilator Start: 11-18-2024 Hydralazine 50 mg tablet Active 75 MG PO Twice daily November 18, 2024 1:39pm Start: 01-05-2024 End: 11-18-2024 take 2 tablets by mouth three times daily Hydralazine 50 mg tablet Discontinued 100 MG PO Three times daily January 04, 2024 11:00pm November 18, 2024 1:40pm Start: 01-05-2024 take 100 mg by mouth three times daily Hydralazine Active 100 MG PO Three times daily January 05, 2024 12:00am take 2 tablets by mo [facility] every eight hours hydrALAZINE HCl 50 MG 2 tablet with food Orally Three times a day Active hydroCHLOROthiazide 25 mg oral tablet (1 source) Thiazide Diuretic Start: 11-18-2024 take 1 tablet by mouth once daily Hydrochlorothiazide 25 mg tablet Active 25 MG PO Daily November 18, 2024 12:00am losartan potassium 100 mg oral tablet (14 sources) Angiotensin 2 Receptor Atif Start: 01-08-2024 take 1 tablet by mouth once daily Losartan 100 mg tablet Active 1 TAB PO Daily January 07, 2024 11:00pm FreeTextSi tablet Orally Once a day; Note: Source Status: Not-TakingundefinedPRN; Provider: Anabela Cooney ( ) take 1 tablet by mouth every twe nty-four hours microencapsulated potassium chloride 10 meq extended release oral tablet (10 sources) take 1 tablet by juliette th once daily at mealtime as needed Completed/Discontinued Medications Medication Drug Class(es) Dates Sig (Normalized) Sig (Original) levothyroxine sodium 0.05 mg oral tablet (4 sources) l-Thyroxine Start: 05-17-2024 End: 08-15-2024 take 1 tablet by mouth once daily Levothyroxine 50 mcg tablet Discontinued 50 MCG PO Daily June 19, 2024 10:42am August 15, 2024 1:12pm LORazepam 0.5 mg oral tablet (14 sources) Benzodiazepine Start: 01-05-2024 End: 01-08-2024 take 1 tablet by mouth twice daily as needed Lorazepam 0.5 mg tablet Discontinued 0.5 MG PO Twice daily as needed January 04, 2024 11:00pm January 08, 2024 10:51am Start: 06-08-2023 take 1 tablet by juliette [...] DAY NEEDED for 30 days Nov, Active spironolactone 25 mg oral tablet (14 sources) Aldosterone Antagonist Start: 01-08-2024 End: 11-18-2024 take 1 tablet by mouth once daily Problems Active Problems Problem Classification Problem Date Documented Da te Episodic/Chronic Anxiety disorders (1 source) Anxiety disorder, unspecified; Translations: [ANXIETY DISORDER UNSPECIFIED] Onset: 10-05-2022 Chronic Chronic kidney disease (16 sources) Chronic kidney disease stage 3B ; Translations: [Chronic kidney disease, stage 3b] 01-05-2024 Chronic Diabetes mellitus without complication (3 sources) Increased glucose level; Translations: [Other abnormal glucose] 01-09-2024 Episodic Essential hypertension (20 sources) Essential hypertension; Translations: [Essential (primary) hypertension] Onset: 02-24-2022 Chronic Heart valve disorders (1 source) 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; Translations: [RHEUMATIC D/O AORTIC TRICUSPID VALV] Onset: 04-08-2022 Chronic Hypertension with complications and secondary hypertension (20 sources) Hypertensive urgency; Translations: [Hypertension secondary to other renal disorders] Onset: 04-06-2022 Chronic Nonspecific chest pain (5 sources) Other chest pain; Translations: [Chest pain, unspecified] Onset: 08-30-2022 Episodic Other aftercare (1 source) Other emt intermediate (current) drug therapy; Translations: [OTH RESIDENTIAL 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 THERAPY] Onset: 10-12-2022 Episodic Other and ill-defined heart disease (3 sources) Other ill-defined heart diseases; Translations: [OTHER ILL-DEFINED HEART DISEASES] Onset: 07-20-2022 Chronic Other lower respiratory disease (3 sources) Shortness of breath; Translations: [SHORTNESS OF BREATH] Onset: 09-26-2022 Episodic Other nutritional; endocrine; and metabolic disorders (3 sources) Abnormal weight gain; Translations: [Abnormal weight gain] 05-07-2024 Episodic Other nutritional; endocrine; and metabolic disorders (2 sources) Abnormal weight gain; Translations: [Abnormal weight gain] 05-07-2024 Episodic Other screening for suspected conditions (not mental disorders or infectious disease) (1 source) Raised TSH level; Translations: [Other specified abnormal findings of blood chemistry] 07-10-2024 Episodic Residual codes; unclassified (5 sources) Insomnia; Translations: [Other insomnia] 01-05-2024 Chronic [...] DIGESTV TRACT] Onset: 09-21-2022 Episodic Substance-related disorders (5 sources) Nicotine dependence, cigarettes, uncomplicated; Translations: [Tobacco dependence syndrome] Onset: 10-05-2022 01-05-2024 Chronic Syncope (3 sources) Syncope; Translations: [Syncope and collapse] 05-07-2024 [...] Value Interpretation Reference Range Facility Office Visiton 11-28-2024 Follow-up visit [id number] Zoraida Gaytan 1935 F Date Provider Department Center 11/28/2024 EDVIN PALM CRISTOBAL Barber Family History Problem Relation Age of Onset Hypertension Mother Family Status - Relation Status Age at Mother Level of Service:28404 [place] OFFICE/OUTPATIENT ESTABLISHED LOW MDM 20 MIN Normal [facility] Office Visiton 06-28-2024 Follow-up visit [id number] Zoraida Gaytan 1935 F Date Provider Department Center 06/28/2024 AALIYAH HENDERSON CARD [facility] Family History Problem Relation Age of Onset Hypertension Mother Family Status - Relation Status Age at Mother Level of Service:90664 [place] OFFICE/OUTPATIENT ESTABLISHED LOW MDM 20 MIN Normal [facility] Basophils Auto (Bld) [#/Vol] on 05-15-2024 Basophils (Bld) [#/Vol] 0.2 10 3/uL High 0.0-0.1 [facility] Basophils/100 WBC Auto (Bld) on 05-15-2024 Basophils/100 WBC (Bld) 2.2 % High 0.2-2.0 [facility] Eosinophils/100 WBC Auto (Bl d)on 05-15-2024 Eosinophils/100 WBC (Bld) 5.0 % 0.9-7.0 [facility] Erythrocyte distribution wid th Auto (RBC) [Ratio]on 05-15-2024 Erythrocyte distribution width (RBC) [Ratio] 14.7 % 11.0-15.0 [facility] Estimated glomerular filtrat ion rate (GFR) non- Americanon 05-15-2024 GFR/1.73 sq M.predicted among non-blacks MDRD (S/P/Bld) [Vol rate/Area] 45 mL/min/{1.73_m2} Low >=60 [facility] Hematocrit Auto (Bld) [Volum e fraction]on 05-15-2024 Hematocrit (Bld) [Volume fraction] 40.2 % 36.0-48.0 [facility] Hemoglobin [Mass/volume] in Bloodon 05-15-2024 Hemoglobin (Bld) [Mass/Vol] 13.0 g/dL 12.0-16.0 [facility] Laboratory - Chemistry and C hemistry - challengeon 05-15-2024 Calcium [Mass/Vol] 9.5 mg/dL 8.5-10.1 [facility] Chloride [Moles/Vol] 105 mmol/L 98-107 [facility] CO2 [Moles/Vol] 26.4 mmol/L 21.0-32.0 [facility] Cobalamin (Vitamin B12) [Mass/Vol] 618.0 pg/mL 193.0-986.0 [facility] Creatinine [Mass/Vol] 1.15 mg/dL High 0.55-1.02 [facility] Free T4 [Mass/Vol] 1.06 ng/dL 0.76-1.46 [facility] GFR/1.73 sq M.predicted MDRD (S/P/Bld) [Vol rate/Area] 54 mL/min/{1.73_m2} Low >=60 [facility] Glucose [Mass/Vol] 104 mg/dL 74-106 [facility] Potassium [Moles/Vol] 4.2 mmol/L 3.5-5.1 [facility] Sodium [Moles/Vol] 137 mmol/L 136-145 [facility] TSH Qn 4.417 m[IU]/L High 0.358-3.740 [facility] Urea nitrogen [Mass/Vol] 20.0 mg/dL High 7.0-18.0 [facility] Urea nitrogen/Creatinine [Mass ratio] 17.4 mg/mg [facility] Laboratory - Hematology and Cell countson 05-15-2024 Immature granulocytes/100 WBC (Bld) 1.3 % High 0.0-0.5 [facility] Leukocytes [#/volume] correc gely for nucleated erythrocytes in Blood by Automated counon 05-15-2024 WBC corrected for nucl RBC Auto (Bld) [#/Vol] 10.4 10 3/uL 4.0-11.0 [facility] Lymphocytes Auto (Bld) [#/Vo l]on 05-15-2024 Lymphocytes (Bld) [#/Vol] 2.1 10 3/uL 1.2-3.8 [facility] Lymphocytes/100 WBC Auto (Bl d)on 05-15-2024 Lymphocytes/100 WBC (Bld) 20.1 % Low 20.5-60.0 [facility] MCH Auto (RBC) [Entitic mass ]on 05-15-2024 MCH (RBC) [Entitic mass] 30.2 pg 26.7-34.0 [facility] MCHC Auto (RBC) [Mass/Vol]on 05-15-2024 MCHC (RBC) [Mass/Vol] 32.3 g/dL 29.9-35.2 [facility] MCV Auto (RBC) [Entitic vol] on 05-15-2024 MCV (RBC) [Entitic vol] 93.3 fL 81.0-99.0 [facility] Monocytes Auto (Bld) [#/Vol] on 05-15-2024 Monocytes (Bld) [#/Vol] 1.4 10 3/uL High 0.3-0.8 [facility] Monocytes/100 WBC Auto (Bld) on 05-15-2024 Monocytes/100 WBC (Bld) 13.0 % High 1.7-12.0 [facility] Neutrophils Auto (Bld) [#/Vo l]on 05-15-2024 Neutrophils (Bld) [#/Vol] 6.1 10 3/uL 1.4-6.5 [facility] Neutrophils/100 WBC Auto (Bl d)on 05-15-2024 Neutrophils/100 WBC (Bld) 58.4 % 43.0-75.0 [facility] No Panel Informationon 05-15 25-Hydroxy Vitamin D Total 32.6 ng/mL [facility] Comment on above: <20 ng/mL Vit D defi cient20-<30 ng/mL Vit D [id number] ng/mL Vit D sufficient>100 ng/mL Potential Toxicity Eosinophils # (Auto) 0.5 10 3/uL 0.0-0.7 [facility] Folate 12.10 ng/mL 8.60-58.90 [facility] Immature Granulocyte # (Auto) 0.13 10 3/uL High 0.00-0.03 [facility] Platelet mean volume Auto (B ld) [Entitic vol]on 05-15-2024 Platelet mean volume (Bld) [Entitic vol] 10.7 fL 9.5-13.5 [facility] Platelets Auto (Bld) [#/Vol] on 05-15-2024 Platelets (Bld) [#/Vol] 132 10 3/uL Low 150-450 [facility] RBC Auto (Bld) [#/Vol]on RBC (Bld) [#/Vol] 4.31 10 6/uL 4.20-5.40 [facility] Serum or plasma anion gap de terminationon 05-15-2024 Anion gap [Moles/Vol] 9.8 mmol/L [facility] Basophils Auto (Bld) [#/Vol] on 05-10-2024 Basophils (Bld) [#/Vol] 0.2 10 3/uL High 0.0-0.1 [facility] Basophils/100 WBC Auto (Bld) on 05-10-2024 Basophils/100 WBC (Bld) 3.1 % High 0.2-2.0 [facility] Eosinophils/100 WBC Auto (Bl d)on 05-10-2024 Eosinophils/100 WBC (Bld) 6.3 % 0.9-7.0 [facility] Erythrocyte distribution wid th Auto (RBC) [Ratio]on 05-10-2024 Erythrocyte distribution width (RBC) [Ratio] 14.8 % 11.0-15.0 [facility] Estimated glomerular filtrat ion rate (GFR) non- Americanon 05-10-2024 GFR/1.73 sq M.predicted among non-blacks MDRD (S/P/Bld) [Vol rate/Area] 39 mL/min/{1.73_m2} Low >=60 [facility] Fibrin D-dimer [Presence] in Platelet poor plasma by Latex agglutinationon 05-10-2024 Fibrin D-dimer LA Ql (PPP) 0.29 mg/L FEU <=0.59 [facility] Comment on above: Increases in D-Dimer concentration [...] on 05-10-2024 Globulin (S) [Mass/Vol] 3.1 g/dL [facility] Hematocrit Auto (Bld) [Volum e fraction]on 08-02-2024 Hematocrit (Bld) [Volume fraction] 39.6 % 36.0-48.0 [facility] Hemoglobin [Mass/volume] in Bloodon 05-10-2024 Hemoglobin (Bld) [Mass/Vol] 12.9 g/dL 12.0-16.0 [facility] INR in Platelet poor plasma by Coagulation assayon 05-10-2024 INR Coag (PPP) [Relative time] 1.34 {INR} [facility] Comment on above: DESIRED INR:2.0-3.0 CONDITIONS NOT LISTED BELOW2.5-3.5 FOR PROSTHETIC HEART VALVE REPLACEMENT2.5-3.5 RECURRENT THROMBOSIS Laboratory - Chemistry and C hemistry - challengeon 05-10-2024 Bilirubin Ql (U) Negative NEGATIVE [facility] Glucose (U) [Mass/Vol] Negative NEGATIVE [facility] Ketones Ql (U) Negative NEGATIVE [facility] pH (U) 6.0 [pH] 5.0-9.0 [facility] Specific gravity (U) [Rel density] 1.015 1.005-1.025 [facility] Urobilinogen Qn (U) 0.2 {Myranda'U}/dL 0.2-1.0 [facility] Albumin [Mass/Vol] 3.5 g/dL 3.4-5.0 [facility] ALP [Catalytic activity/Vol] 54 U/L 46-116 [facility] ALT [Catalytic activity/Vol] 17 U/L 14-59 [facility] AST [Catalytic activity/Vol] 14 U/L Low 15-37 [facility] Bilirubin [Mass/Vol] 0.4 mg/dL 0.2-1.0 [facility] Calcium [Mass/Vol] 9.5 mg/dL 8.5-10.1 [facility] Chloride [Moles/Vol] 104 mmol/L 98-107 [facility] CO2 [Moles/Vol] 26.0 mmol/L 21.0-32.0 [facility] Creatinine [Mass/Vol] 1.28 mg/dL High 0.55-1.02 [facility] GFR/1.73 sq M.predicted MDRD (S/P/Bld) [Vol rate/Area] 48 mL/min/{1.73_m2} Low >=60 [facility] Glucose [Mass/Vol] 143 mg/dL High 74-106 [facility] Natriuretic peptide B (Bld) [Mass/Vol] 178.0 pg/mL <=1800.0 [facility] Potassium [Moles/Vol] 3.9 mmol/L 3.5-5.1 [facility] Protein [Mass/Vol] 6.6 g/dL 6.4-8.2 [facility] Sodium [Moles/Vol] 136 mmol/L 136-145 [facility] Urea nitrogen [Mass/Vol] 21.0 mg/dL High 7.0-18.0 [facility] Urea nitrogen/Creatinine [Mass ratio] 16.4 mg/mg [facility] Laboratory - Hematology and Cell countson 05-10-2024 Immature granulocytes/100 WBC (Bld) 0.3 % 0.0-0.5 [facility] Laboratory - Specimen inform ationon 05-10-2024 Appearance (U) CLEAR CLEAR [facility] Color (U) LT. YELLOW YELLOW [facility] Laboratory - Urinalysison Leukocyte esterase Test strip Ql (U) SMALL Abnormal NEGATIVE [facility] Mucus Ql (Urine sed) NONE SEEN NONE SEEN [facility] Nitrite Ql (U) Negative NEGATIVE [facility] Protein Ql (U) Negative NEG/TRACE [facility] Leukocytes [#/volume] correc gely for nucleated erythrocytes in Blood by Automated counon 05-10-2024 WBC corrected for nucl RBC Auto (Bld) [#/Vol] 5.9 10 3/uL 4.0-11.0 [facility] Lymphocytes Auto (Bld) [#/Vo l]on 05-10-2024 Lymphocytes (Bld) [#/Vol] 1.8 10 3/uL 1.2-3.8 [facility] Lymphocytes/100 WBC Auto (Bl d)on 05-10-2024 Lymphocytes/100 WBC (Bld) 31.0 % 20.5-60.0 [facility] MCH Auto (RBC) [Entitic mass ]on 05-10-2024 MCH (RBC) [Entitic mass] 30.4 pg 26.7-34.0 [facility] MCHC Auto (RBC) [Mass/Vol]on 05-10-2024 MCHC (RBC) [Mass/Vol] 32.6 g/dL 29.9-35.2 [facility] MCV Auto (RBC) [Entitic vol] on 05-10-2024 MCV (RBC) [Entitic vol] 93.2 fL 81.0-99.0 [facility] Monocytes Auto (Bld) [#/Vol] on 05-10-2024 Monocytes (Bld) [#/Vol] 0.7 10 3/uL 0.3-0.8 [facility] Monocytes/100 WBC Auto (Bld) on 05-10-2024 Monocytes/100 WBC (Bld) 12.4 % High 1.7-12.0 [facility] Neutrophils Auto (Bld) [#/Vo l]on 05-10-2024 Neutrophils (Bld) [#/Vol] 2.8 10 3/uL 1.4-6.5 [facility] Neutrophils/100 WBC Auto (Bl d)on 05-10-2024 Neutrophils/100 WBC (Bld) 46.9 % 43.0-75.0 [facility] No Panel Informationon 05-10 Urine Bacteria TRACE #/HPF Abnormal NONE SEEN [facility] Urine Occult Blood TRACE-I NEGATIVE [facility] Urine Other Casts NONE SEEN #/LPF NONE SEEN [facility] Urine Other Crystals None Seen #/HPF None Seen [facility] Urine RBC 5-10 #/HPF Abnormal 0-2 [facility] Urine Squamous Epithelial Cells MODERATE #/LPF Abnormal NONE/RARE [facility] Urine WBC 0-2 #/HPF Abnormal NONE SEEN [facility] Eosinophils # (Auto) 0.4 10 3/uL 0.0-0.7 [facility] Immature Granulocyte # (Auto) 0.02 10 3/uL 0.00-0.03 [facility] Troponin I High Sensitivity 5.5 pg/mL 4.0-51.3 [facility] Comment on above: CUT-OFF POINTS HAVE BEEN [...] volume (Bld) [Entitic vol] 10.9 fL 9.5-13.5 [facility] Platelets Auto (Bld) [#/Vol] on 05-10-2024 Platelets (Bld) [#/Vol] 144 10 3/uL Low 150-450 [facility] Prothrombin time (PT)on PT Coag (PPP) [Time] 13.8 s High 9.0-11.6 [facility] RBC Auto (Bld) [#/Vol]on RBC (Bld) [#/Vol] 4.25 10 6/uL 4.20-5.40 [facility] Serum or plasma albumin/glob ulin mass ratioon 05-10-2024 Albumin/Globulin [Mass ratio] 1.1 {ratio} [facility] Serum or plasma anion gap de terminationon 05-10-2024 Anion gap [Moles/Vol] 9.9 mmol/L [facility] Office Visiton 05-01-2024 Follow-up visit [id number] Zoraida Gaytan 1935 F Date Provider Department Center 05/01/2024 AALIYAH HENDERSON CARD [facility] Family History Problem Relation Age of Onset Hypertension Mother Family Status - Relation Status Age at Mother Level of Service:91303 [place] OFFICE/OUTPATIENT ESTABLISHED LOW MDM 20 MIN Normal [facility] Basophils/100 WBC Manual cnt (Bld)on 04-25-2024 Basophils/100 WBC (Bld) 0.0 % Low 0.2-2.0 [facility] Eosinophils/100 WBC Manual c nt (Bld)on 04-25-2024 Eosinophils/100 WBC (Bld) 4.0 % 0.9-7.0 [facility] Erythrocyte distribution wid th Auto (RBC) [Ratio]on 04-25-2024 Erythrocyte distribution width (RBC) [Ratio] 14.7 % 11.0-15.0 [facility] Estimated glomerular filtrat ion rate (GFR) non- Americanon 04-25-2024 GFR/1.73 sq M.predicted among non-blacks MDRD (S/P/Bld) [Vol rate/Area] 42 mL/min/{1.73_m2} Low >=60 [facility] Globulin Calc (S) [Mass/Vol] on 04-25-2024 Globulin (S) [Mass/Vol] 3.4 g/dL [facility] Hematocrit Auto (Bld) [Volum e fraction]on 04-25-2024 Hematocrit (Bld) [Volume fraction] 43.1 % 36.0-48.0 [facility] Hemoglobin [Mass/volume] in Bloodon 04-25-2024 Hemoglobin (Bld) [Mass/Vol] 13.8 g/dL 12.0-16.0 [facility] INR in Platelet poor plasma by Coagulation assayon 04-25-2024 INR Coag (PPP) [Relative time] 1.31 {INR} [facility] Comment on above: DESIRED INR:2.0-3.0 CONDITIONS NOT LISTED BELOW2.5-3.5 FOR PROSTHETIC HEART VALVE REPLACEMENT2.5-3.5 RECURRENT THROMBOSIS Laboratory - Chemistry and C hemistry - challengeon 04-25-2024 Albumin [Mass/Vol] 4.0 g/dL 3.4-5.0 [facility] ALP [Catalytic activity/Vol] 63 U/L 46-116 [facility] ALT [Catalytic activity/Vol] 18 U/L 14-59 [facility] AST [Catalytic activity/Vol] 14 U/L Low 15-37 [facility] Bilirubin [Mass/Vol] 0.7 mg/dL 0.2-1.0 [facility] Calcium [Mass/Vol] 9.6 mg/dL 8.5-10.1 [facility] Chloride [Moles/Vol] 104 mmol/L 98-107 [facility] CO2 [Moles/Vol] 29.2 mmol/L 21.0-32.0 [facility] Creatinine [Mass/Vol] 1.21 mg/dL High 0.55-1.02 [facility] [facility] GFR/1.73 sq M.predicted MDRD (S/P/Bld) [Vol rate/Area] 51 mL/min/{1.73_m2} Low >=60 [facility] Glucose [Mass/Vol] 136 mg/dL High 74-106 [facility] Natriuretic peptide B (Bld) [Mass/Vol] 201.0 pg/mL <=1800.0 [facility] Potassium [Moles/Vol] 3.9 mmol/L 3.5-5.1 [facility] Protein [Mass/Vol] 7.4 g/dL 6.4-8.2 [facility] Sodium [Moles/Vol] 139 mmol/L 136-145 [facility] Urea nitrogen [Mass/Vol] 27.0 mg/dL High 7.0-18.0 [facility] Urea nitrogen/Creatinine [Mass ratio] 22.3 mg/mg [facility] Laboratory - Hematology and Cell countson 04-25-2024 Band form neutrophils/100 WBC (Bld) 4.0 % 0-5 [facility] Lymphocytes/100 WBC (Bld) 15.0 % Low 20.5-60.0 [facility] Monocytes/100 WBC (Bld) 3.0 % 1.7-12.0 [facility] Leukocytes [#/volume] correc gely for nucleated erythrocytes in Blood by Automated counon 04-25-2024 WBC corrected for nucl RBC Auto (Bld) [#/Vol] 13.3 10 3/uL High 4.0-11.0 [facility] MCH Auto (RBC) [Entitic mass ]on 04-25-2024 MCH (RBC) [Entitic mass] 30.1 pg 26.7-34.0 [facility] MCHC Auto (RBC) [Mass/Vol]on 04-25-2024 MCHC (RBC) [Mass/Vol] 32.0 g/dL 29.9-35.2 [facility] MCV Auto (RBC) [Entitic vol] on 04-25-2024 MCV (RBC) [Entitic vol] 93.9 fL 81.0-99.0 [facility] No Panel Informationon 04-25 Troponin I High Sensitivity 6.5 pg/mL 4.0-51.3 [facility] Comment on above: CUT-OFF POINTS HAVE BEEN [...] Absolute Basophils (Manual) 0.00 10 3/uL 0.00-0.10 [facility] Band Neutrophils # (Manual) 0.5 10 3/uL High 0.0-0.3 [facility] Eosinophils # (Manual) 0.53 10 3/uL 0.00-0.70 [facility] Lymphocytes # (Manual) 1.99 10 3/uL 1.20-3.80 [facility] Monocytes # (Manual) 0.39 10 3/uL 0.30-0.80 [facility] Segmented Neutrophils # (Manual) 9.84 10 3/uL High 1.4-6.5 [facility] Platelet mean volume Auto (B ld) [Entitic vol]on 04-25-2024 Platelet mean volume (Bld) [Entitic vol] 10.4 fL 9.5-13.5 [facility] Platelets Auto (Bld) [#/Vol] on 04-25-2024 Platelets (Bld) [#/Vol] 145 10 3/uL Low 150-450 [facility] Prothrombin time (PT)on 04-08 PT Coag (PPP) [Time] 13.5 s High 9.0-11.6 [facility] RBC Auto (Bld) [#/Vol]on RBC (Bld) [#/Vol] 4.59 10 6/uL 4.20-5.40 [facility] Segmented neutrophils/100 WB C Manual cnt (Bld)on 04-25-2024 Segmented neutrophils/100 WBC (Bld) 74.0 % [facility] Serum or plasma albumin/glob ulin mass ratioon 04-25-2024 Albumin/Globulin [Mass ratio] 1.2 {ratio} [facility] Serum or plasma anion gap de terminationon 04-25-2024 Anion gap [Moles/Vol] 9.7 mmol/L [facility] Office Visiton 03-28-2024 Follow-up visit [id number] Zoraida Gaytan 1935 F Date Provider Department Center 03/28/2024 120-AALIAYH POOLE CRISTOBAL [facility] Family History Problem Relation Age of Onset Hypertension Mother Family Status - Relation Status Age at Mother Level of Service:09118 [place] OFFICE/OUTPATIENT ESTABLISHED LOW MDM 20 MIN Normal [facility] Office Visiton 01-08-2024 Follow-up visit [id number] Zoraida Gaytan 1935 F Date Provider Department Center 01/08/2024 Frnacis8-HERMELINDA HUGO CRISTOBAL [facility] Family History Problem Relation Age of Onset Hypertension Mother Family Status - Relation Status Age at Mother Level of Service:08972 [place] OFFICE/OUTPATIENT ESTABLISHED LOW MDM 20 MIN Reason for Visit and Comments: Follow-up [283084] Normal [facility] Basophils Auto (Bld) [#/Vol] on 12-28-2023 Basophils (Bld) [#/Vol] 0.2 10 3/uL 0.0-0.1 [facility] Basophils/100 WBC Auto (Bld) on 12-28-2023 Basophils/100 WBC (Bld) 3.4 % 0.2-2.0 [facility] Eosinophils/100 WBC Auto (Bl d)on 12-28-2023 Eosinophils/100 WBC (Bld) 6.2 % 0.9-7.0 [facility] Erythrocyte distribution wid th Auto (RBC) [Ratio]on 12-28-2023 Erythrocyte distribution width (RBC) [Ratio] 14.8 % 11.0-15.0 [facility] Estimated glomerular filtrat ion rate (GFR) non- Americanon 12-28-2023 GFR/1.73 sq M.predicted among non-blacks MDRD (S/P/Bld) [Vol rate/Area] 46 mL/min/{1.73_m2} >=60 [facility] Hematocrit Auto (Bld) [Volum e fraction]on 12-28-2023 Hematocrit (Bld) [Volume fraction] 42.9 % 36.0-48.0 [facility] Hemoglobin [Mass/volume] in Bloodon 12-28-2023 Hemoglobin (Bld) [Mass/Vol] 13.7 g/dL 12.0-16.0 [facility] Laboratory - Chemistry and C hemistry - challengeon 12-28-2023 Calcium [Mass/Vol] 9.7 mg/dL 8.5-10.1 [facility] Chloride [Moles/Vol] 106 mmol/L 98-107 [facility] CO2 [Moles/Vol] 26.1 mmol/L 21.0-32.0 [facility] Creatinine [Mass/Vol] 1.11 mg/dL 0.55-1.02 [facility] GFR/1.73 sq M.predicted MDRD (S/P/Bld) [Vol rate/Area] 56 mL/min/{1.73_m2} >=60 [facility] Glucose [Mass/Vol] 108 mg/dL 74-106 [facility] Potassium [Moles/Vol] 3.8 mmol/L 3.5-5.1 [facility] Sodium [Moles/Vol] 139 mmol/L 136-145 [facility] Urea nitrogen [Mass/Vol] 22.0 mg/dL 7.0-18.0 [facility] Urea nitrogen/Creatinine [Mass ratio] 19.8 mg/mg [facility] Laboratory - Hematology and Cell countson 12-28-2023 Immature granulocytes/100 WBC (Bld) 0.5 % 0.0-0.5 [facility] Leukocytes [#/volume] correc gely for nucleated erythrocytes in Blood by Automated counon 12-28-2023 WBC corrected for nucl RBC Auto (Bld) [#/Vol] 6.0 10 3/uL 4.0-11.0 [facility] Lymphocytes Auto (Bld) [#/Vo l]on 12-28-2023 Lymphocytes (Bld) [#/Vol] 2.1 10 3/uL 1.2-3.8 [facility] Lymphocytes/100 WBC Auto (Bl d)on 12-28-2023 Lymphocytes/100 WBC (Bld) 34.9 % 20.5-60.0 [facility] MCH Auto (RBC) [Entitic mass ]on 12-28-2023 MCH (RBC) [Entitic mass] 30.0 pg 26.7-34.0 [facility] MCHC Auto (RBC) [Mass/Vol]on 12-28-2023 MCHC (RBC) [Mass/Vol] 31.9 g/dL 29.9-35.2 [facility] MCV Auto (RBC) [Entitic vol] on 12-28-2023 MCV (RBC) [Entitic vol] 93.9 fL 81.0-99.0 [facility] Monocytes Auto (Bld) [#/Vol] on 12-28-2023 Monocytes (Bld) [#/Vol] 0.9 10 3/uL 0.3-0.8 [facility] Monocytes/100 WBC Auto (Bld) on 12-28-2023 Monocytes/100 WBC (Bld) 15.1 % 1.7-12.0 [facility] Neutrophils Auto (Bld) [#/Vo l]on 12-28-2023 Neutrophils (Bld) [#/Vol] 2.4 10 3/uL 1.4-6.5 [facility] Neutrophils/100 WBC Auto (Bl d)on 12-28-2023 Neutrophils/100 WBC (Bld) 39.9 % 43.0-75.0 [facility] No Panel Informationon 12-27 Eosinophils # (Auto) 0.4 10 3/uL 0.0-0.7 [facility] Immature Granulocyte # (Auto) 0.03 10 3/uL 0.00-0.03 [facility] Troponin I High Sensitivity 6.6 pg/mL 4.0-51.3 [facility] Comment on above: CUT-OFF POINTS HAVE BEEN [...] volume (Bld) [Entitic vol] 10.8 fL 9.5-13.5 [facility] Platelets Auto (Bld) [#/Vol] on 12-28-2023 Platelets (Bld) [#/Vol] 142 10 3/uL 150-450 [facility] RBC Auto (Bld) [#/Vol]on RBC (Bld) [#/Vol] 4.57 10 6/uL 4.20-5.40 [facility] Serum or plasma anion gap de terminationon 12-28-2023 Anion gap [Moles/Vol] 10.7 mmol/L [facility] PROF CHEM 8 (BAS METB)on Anion gap [Moles/Vol] 12.5 mmol/L Normal [facility] Comment on above: Performed By: #### B MP #### [facility] [address] [address] [address] Arden Magallon Calcium [Mass/Vol] 10.0 mg/dL Normal 8.5-10.1 [facility] Comment on above: Performed By: #### B MP #### [facility] [address] [address] [address] Arden Magallon Chloride [Moles/Vol] 105 mmol/L Normal 98-107 [facility] Comment on above: Performed By: #### B MP #### [facility] [address] [address] [address] Arden Magallon CO2 [Moles/Vol] 29.9 mmol/L Normal 21.0-32.0 [facility] Comment on above: Performed By: #### B MP #### [facility] [id number] Arden Magallon Creatinine [Mass/Vol] 1.26 mg/dL Critically high 0.55-1.02 [facility] Comment on above: Performed By: #### B MP #### [facility] [address] [address] [address] Arden Magallon EGFR-AF COSTA RICAN 49 mL/min/1.73m2 Critically low >=60 [facility] Comment on above: Performed By: #### B MP #### [facility] [address] [address] [address] Arden Magallon EGFR-NON AF CO[place] RICAN 40 mL/min/1.73m2 Critically low >=60 [facility] Comment on above: Performed By: #### B MP #### [facility] [address] [address] [address] Arden Magallon Glucose [Mass/Vol] 108 mg/dL Critically high 74-106 [facility] Comment on above: Performed By: #### B MP #### [facility] [address] [address] [address] Arden Magallon Potassium [Moles/Vol] 3.4 mmol/L Critically low 3.5-5.1 [facility] Comment on above: Performed By: #### B MP #### [facility] [address] [address] [address] Arden Magallon Sodium [Moles/Vol] 144 mmol/L Normal 136-145 [facility] Comment on above: Performed By: #### B MP #### [facility] [id number] Arden Magallon Urea nitrogen [Mass/Vol] 28.0 mg/dL Critically high 7.0-18.0 [facility] Comment on above: Performed By: #### B MP #### [facility] [address] [address] [address] Arden Magallon Urea nitrogen/Creatinine [Mass ratio] 22.2 mg/mg Normal [facility] Comment on above: Performed By: #### B MP #### [facility] [address] [address] [address] Arden Magallon CARDIAC CINDY 3-6on 2 CK [Catalytic activity/Vol] 27 U/L Normal 26-192 [facility] Comment on above: Performed By: #### B MP #### [facility] [address] [place] [address] Dr. Arden Magallon CK.MB [Mass/Vol] 0.84 ng/mL Normal <=3.60 [facility] Comment on above: Performed By: #### B MP #### [facility] [address] [place] [address] Dr. Arden Magallon HSTROP 12.4 pg/mL Normal 4.0-51.3 [facility] Comment on above: Result Comment: CUT- OFF POINTS HAVE BEEN ESTABLISHED BASED ON THE FOURTH UNIVERSAL DEFINITIONS OF MYOCARDIAL INFARCTION. THE UPPER REFERENCE LIMIT (URL) OF TROPONIN, DEFINED THE 99TH PERCENTILE OF cTnI DISTRIBUTION IN A REFERENCE POPULATION, HAS BEEN CONFIRMED THE DECISION THRESHOLD FOR TX DIAGNOSIS. Performed By: #### B MP #### [facility] [address] [place] [address] Dr. Arden Magallon CARDIAC CINDY ADMITon 022 CK [Catalytic activity/Vol] 42 U/L Normal 26-192 [facility] Comment on above: Performed By: #### B MP #### [facility] [address] [place] [address] Dr. Arden Magallon CK.MB [Mass/Vol] 0.82 ng/mL Normal <=3.60 [facility] Comment on above: Performed By: #### B MP #### [facility] [address] [place] [address] Dr. Arden Magallon HSTROP 9.8 pg/mL Normal 4.0-51.3 [facility] Comment on above: Result Comment: CUT- OFF POINTS HAVE BEEN ESTABLISHED BASED ON THE FOURTH UNIVERSAL DEFINITIONS OF MYOCARDIAL INFARCTION. THE UPPER REFERENCE LIMIT (URL) OF TROPONIN, DEFINED THE 99TH PERCENTILE OF cTnI DISTRIBUTION IN A REFERENCE POPULATION, HAS BEEN CONFIRMED THE DECISION THRESHOLD FOR TX DIAGNOSIS. Performed By: #### B MP #### [facility] [address] [place] [address] Dr. Arden Magallon IKE 50 ng/mL Normal 9-82 [facility] Comment on above: Performed By: #### B MP #### [facility] [address] [place] [address] Dr. Arden Magallon CBC AUTO DIFFon 09-30-2022 BASO # 0.2 103/ul Critically high 0.0-0.1 [facility] Comment on above: Performed By: #### C BC #### [facility] [address] [place] [address] Dr. Arden Magallon Basophils/100 WBC (Bld) 2.2 % Critically high 0.2-2.0 [facility] Comment on above: Performed By: #### C BC #### [facility] [address] [place] [address] Dr. Arden Magallon EO # 1.3 103/ul Critically high 0.0-0.7 [facility] Comment on above: Performed By: #### C BC #### [facility] [address] [place] [address] Dr. Arden Magallon Eosinophils/100 WBC (Bld) 16.5 % Critically high 0.9-7.0 [facility] Comment on above: Performed By: #### C BC #### [facility] [address] [place] [address] Dr. Arden Magallon Erythrocyte distribution width (RBC) [Ratio] 14.3 % Normal 11.0-15.0 [facility] Comment on above: Performed By: #### C BC #### [facility] [address] [place] [address] Dr. Arden Magallon Hematocrit (Bld) [Volume fraction] 38.3 % Normal 36.0-48.0 [facility] Comment on above: Performed By: #### C BC #### [facility] [address] [place] [address] Dr. Arden Magallon Hemoglobin (Bld) [Mass/Vol] 12.6 g/dL Normal 12.0-16.0 [facility] Comment on above: Performed By: #### C BC #### [facility] [address] [place] [address] Dr. Arden Magallon IG # 0.03 10e3/ul Normal 0.00-0.03 [facility] Comment on above: Performed By: #### C BC #### [facility] [address] [place] [address] Dr. Arden Magallon IG % 0.4 % Normal 0.0-0.5 [facility] Comment on above: Performed By: #### C BC #### [facility] [address] [place] [address] Dr. Arden Magallon LYMPH # 2.4 103/ul Normal 1.2-3.8 [facility] Comment on above: Performed By: #### C BC #### [facility] [address] [place] [address] Dr. Arden Magallon Lymphocytes/100 WBC (Bld) 30.0 % Normal 20.5-60.0 [facility] Comment on above: Performed By: #### C BC #### [facility] [address] [place] [address] Dr. Arden Magallon MANUAL DIFF REQ NO Normal [facility] Comment on above: Performed By: #### C BC #### [facility] [address] [place] [address] Dr. Arden Magallon MCH (RBC) [Entitic mass] 30.7 pg Normal 26.7-34.0 [facility] Comment on above: Performed By: #### C BC #### [facility] [address] [place] [address] Dr. Arden Magallon MCHC (RBC) [Mass/Vol] 32.9 g/dL Normal 29.9-35.2 [facility] Comment on above: Performed By: #### C BC #### [facility] [address] [place] [address] Dr. Adren Magallon MCV (RBC) [Entitic vol] 93.4 fL Normal 81.0-99.0 [facility] Comment on above: Performed By: #### C BC #### [facility] [address] [place] [address] Dr. Arden Magallon MONO # 1.1 103/ul Critically high 0.3-0.8 [facility] Comment on above: Performed By: #### C BC #### [facility] [address] [place] [address] Dr. Arden Magallon Monocytes/100 WBC (Bld) 14.2 % Critically high 1.7-12.0 [facility] Comment on above: Performed By: #### C BC #### [facility] [address] [place] [address] Dr. Arden Magallon NEUT # 2.9 103/ul Normal 1.4-6.5 [facility] Comment on above: Performed By: #### C BC #### [facility] [address] [place] [address] Dr. Arden Magallon Neutrophils/100 WBC (Bld) 36.7 % Critically low 43.0-75.0 [facility] Comment on above: Performed By: #### C BC #### [facility] [address] [place] [address] Dr. Arden Magallon Platelet mean volume (Bld) [Entitic vol] 11.4 fL Normal 9.5-13.5 [facility] Comment on above: Performed By: #### C BC #### [facility] [address] [place] [address] Dr. Arden Magallon PLT 162 103/ul Normal 150-450 [facility] Comment on above: Performed By: #### C BC #### [facility] [address] [place] [address] Dr. Arden Magallon RBC 4.10 106/ul Critically low 4.20-5.40 [facility] Comment on above: Performed By: #### C BC #### [facility] [address] [place] [address] Dr. Arden Magallon WBC 8.0 103/ul Normal 4.0-11.0 [facility] Comment on above: Performed By: #### C BC #### [facility] [address] [place] [address] Dr. Arden Magallon PROF CHEM 8 (BAS METB)on Anion gap [Moles/Vol] 11.8 mmol/L Normal [facility] Comment on above: Performed By: #### B MP #### [facility] [address] [address] [address] Arden Magallon Calcium [Mass/Vol] 9.7 mg/dL Normal 8.5-10.1 [facility] Comment on above: Performed By: #### B MP #### [facility] [address] [address] [address] Arden Magallon Chloride [Moles/Vol] 105 mmol/L Normal 98-107 [facility] Comment on above: Performed By: #### B MP #### [facility] [address] [place] [address] Dr. Arden Magallon CO2 [Moles/Vol] 25.0 mmol/L Normal 21.0-32.0 [facility] Comment on above: Performed By: #### B MP #### [facility] [address] [address] [address] Arden Magallon Creatinine [Mass/Vol] 1.07 mg/dL Critically high 0.55-1.02 [facility] Comment on above: Performed By: #### B MP #### [facility] [address] [address] [address] Arden Magallon EGFR-AF COSTA RICAN 59 mL/min/1.73m2 Critically low >=60 [facility] Comment on above: Performed By: #### B MP #### [facility] [address] [address] [address] Arden Magallon EGFR-NON AF [place] R[place] 49 mL/min/1.73m2 Critically low >=60 [facility] Comment on above: Performed By: #### B MP #### [facility] [address] [address] [address] Arden Magallon Glucose [Mass/Vol] 106 mg/dL Normal 74-106 [facility] Comment on above: Performed By: #### B MP #### [facility] [address] [address] [address] Arden Magallon Potassium [Moles/Vol] 3.8 mmol/L Normal 3.5-5.1 [facility] Comment on above: Performed By: #### B MP #### [facility] [address] [place] [address] Dr. Arden Magallon Sodium [Moles/Vol] 138 mmol/L Normal 136-145 [facility] Comment on above: Performed By: #### B MP #### [facility] [address] [place] [address] Dr. Arden Magallon Urea nitrogen [Mass/Vol] 18.0 mg/dL Normal 7.0-18.0 [facility] Comment on above: Performed By: #### B MP #### [facility] [address] [place] [address] Dr. Arden Magallon Urea nitrogen/Creatinine [Mass ratio] 16.8 mg/mg Normal [facility] Comment on above: Performed By: #### B MP #### [facility] [address] [place] [address] Dr. Arden Magallon CBC AUTO DIFFon 09-26-2022 BASO # 0.2 103/ul Critically high 0.0-0.1 [facility] Comment on above: Performed By: #### C BC #### [facility] [address] [place] [address] Dr. Arden Magallon Basophils/100 WBC (Bld) 2.1 % Critically high 0.2-2.0 [facility] Comment on above: Performed By: #### C BC #### [facility] [address] [place] [address] Dr. Arden Magallon EO # 1.5 103/ul Critically high 0.0-0.7 [facility] Comment on above: Performed By: #### C BC #### [facility] [address] [place] [address] Dr. Arden Magallon Eosinophils/100 WBC (Bld) 16.6 % Critically high 0.9-7.0 [facility] Comment on above: Performed By: #### C BC #### [facility] [address] [place] [address] Dr. Arden Magallon Erythrocyte distribution width (RBC) [Ratio] 14.1 % Normal 11.0-15.0 [facility] Comment on above: Performed By: #### C BC #### [facility] [address] [place] [address] Dr. Arden Magallon Hematocrit (Bld) [Volume fraction] 37.7 % Normal 36.0-48.0 [facility] Comment on above: Performed By: #### C BC #### [facility] [address] [place] [address] Dr. Arden Magallon Hemoglobin (Bld) [Mass/Vol] 12.5 g/dL Normal 12.0-16.0 [facility] Comment on above: Performed By: #### C BC #### [facility] [address] [place] [address] Dr. Arden Magallon IG # 0.04 10e3/ul Critically high 0.00-0.03 [facility] Comment on above: Performed By: #### C BC #### [facility] [address] [place] [address] Dr. Arden Magallon IG % 0.4 % Normal 0.0-0.5 [facility] Comment on above: Performed By: #### C BC #### [facility] [address] [place] [address] Dr. Arden Magallon LYMPH # 1.8 103/ul Normal 1.2-3.8 [facility] Comment on above: Performed By: #### C BC #### [facility] [facility] [address] [place] [address] Dr. Arden Magallon Lymphocytes/100 WBC (Bld) 19.6 % Critically low 20.5-60.0 [facility] Comment on above: Performed By: #### C BC #### [facility] [address] [place] [address] Dr. Arden Magallon MANUAL DIFF REQ NO Normal [facility] Comment on above: Performed By: #### C BC #### [facility] [address] [place] [address] Dr. Arden Magallon MCH (RBC) [Entitic mass] 31.1 pg Normal 26.7-34.0 [facility] Comment on above: Performed By: #### C BC #### [facility] [address] [address] [address] Arden Magallon MCHC (RBC) [Mass/Vol] 33.2 g/dL Normal 29.9-35.2 [facility] Comment on above: Performed By: #### C BC #### [facility] [address] [address] [address] Arden Magallon MCV (RBC) [Entitic vol] 93.8 fL Normal 81.0-99.0 [facility] Comment on above: Performed By: #### C BC #### [facility] [address] [place] [address] Dr. Arden Magallon MONO # 1.1 103/ul Critically high 0.3-0.8 [facility] Comment on above: Performed By: #### C BC #### [facility] [address] [place] [address] Dr. Arden Magallon Monocytes/100 WBC (Bld) 12.1 % Critically high 1.7-12.0 [facility] Comment on above: Performed By: #### C BC #### [facility] [address] [place] [address] Dr. Arden Magallon NEUT # 4.6 103/ul Normal 1.4-6.5 [facility] Comment on above: Performed By: #### C BC #### [facility] [address] [place] [address] Dr. Arden Magallon Neutrophils/100 WBC (Bld) 49.2 % Normal 43.0-75.0 [facility] Comment on above: Performed By: #### C BC #### [facility] [address] [address] [address] Arden Magallon Platelet mean volume (Bld) [Entitic vol] 10.8 fL Normal 9.5-13.5 [facility] Comment on above: Performed By: #### C BC #### [facility] [address] [place] [address] Dr. Arden Magallon PLT 149 103/ul Critically low 150-450 [facility] Comment on above: Performed By: #### C BC #### [facility] [address] [place], [place] [address] Dr. Arden Magallon RBC 4.02 106/ul Critically low 4.20-5.40 [facility] Comment on above: Performed By: #### C BC #### [facility] [address] [place], [place] [address] Dr. Arden Magallon WBC 9.3 103/ul Normal 4.0-11.0 [facility] Comment on above: Performed By: #### C BC #### [facility] [address] [address] [address] Arden Magallon Covid-19 PCR ([facility])on 09-08 SARS-CoV-2 (COVID-19) RNA ISABELLA+probe Ql (Unsp spec) Not detected Normal NOT DETECTED [facility] Comment on above: Result Comment: This test is not yet approved or cleared by the [place] FDA. When there are no FDA-approved or cleared tests available, and other criteria are met, FDA can make tests available under an emergency access mechanism called an Emergency Use Authorization (EUA). The EUA for this test is supported by the [employer] of Health and Human Service's (HHS's) declaration [...] SARS-CoV-2. Performed By: #### C BC #### [facility] [address] [address] [address] Arden Magallon INFLUENZA A AND B AGon 09-26 INFLUANEGH SEE BELOW Normal [facility] Comment on above: Result Comment: Nega tive for Flu A protein angiten. Infection due to Flu A cannot be ruled out. Flu A angiten in the sample may be below the detection limit of the test. Performed By: #### C BC #### [facility] [address] [place] [address] Dr. Arden Magallon [facility] SEE BELOW Normal [facility] Comment on above: Result Comment: Nega tive for Flu B protein antigen. Infection due to Flu B cannot be ruled out. Flu B antigen in the sample may be below the detection limit of the test. Performed By: #### C BC #### [facility] [address] [place] [address] Dr. Arden Magallon INFLUENZA A AG Negative Normal NEGATIVE SEE COMMENT [facility] Comment on above: Performed By: #### C BC #### [facility] [address] [place] [address] Dr. Arden Magallon INFLUENZA B AG Negative Normal NEGATIVE SEE COMMENT [facility] Comment on above: Performed By: #### C BC #### [facility] [address] [place] [address] Dr. Arden Magallon INTERNAL CONTROLS Within Normal Limits Normal Wi thin Normal Limits [facility] Comment on above: Performed By: #### C BC #### [facility] [address] [place] [address] Dr. Arden Magallon PROF CHEM 8 (BAS METB)on Anion gap [Moles/Vol] 10.8 mmol/L Normal [facility] Comment on above: Performed By: #### P T, DDIM #### [facility] [address] [place] [address] Dr. Arden Magallon Calcium [Mass/Vol] 9.3 mg/dL Normal 8.5-10.1 [facility] Comment on above: Performed By: #### P T, DDIM #### [facility] [address] [place] [address] Dr. Arden Magallon Chloride [Moles/Vol] 107 mmol/L Normal 98-107 [facility] Comment on above: Performed By: #### P T, DDIM #### [facility] [address] [place] [address] Dr. Arden Magallon CO2 [Moles/Vol] 28.0 mmol/L Normal 21.0-32.0 [facility] Comment on above: Performed By: #### P T, DDIM #### [facility] [address] [address] [address] Arden Magallon Creatinine [Mass/Vol] 0.98 mg/dL Normal 0.55-1.02 [facility] Comment on above: Performed By: #### P T, DDIM #### [facility] [address] [address] [address] Arden Magallon EGFR-AF COSTA RICAN >60 Normal >=60 [facility] Comment on above: Performed By: #### P T, DDIM #### [facility] [address] [place] [address] Dr. Arden Magallon EGFR-NON AF CO[place] RICAN 54 mL/min/1.73m2 Critically low >=60 [facility] Comment on above: Performed By: #### P T, DDIM #### [facility] [address] [place] [address] Dr. Arden Magallon Glucose [Mass/Vol] 111 mg/dL Critically high 74-106 [facility] Comment on above: Performed By: #### P T, DDIM #### [facility] [address] [place] [address] Dr. Arden Magallon Potassium [Moles/Vol] 3.8 mmol/L Normal 3.5-5.1 [facility] Comment on above: Performed By: #### P T, DDIM #### [facility] [address] [place] [address] Dr. Arden Magallon Sodium [Moles/Vol] 142 mmol/L Normal 136-145 [facility] Comment on above: Performed By: #### P T, DDIM #### [facility] [address] [address] [address] Arden Magallon Urea nitrogen [Mass/Vol] 15.0 mg/dL Normal 7.0-18.0 [facility] Comment on above: Performed By: #### P T, DDIM #### [facility] [address] [address] [address] Arden Magallon Urea nitrogen/Creatinine [Mass ratio] 15.3 mg/mg Normal [facility] Comment on above: Performed By: #### P T, DDIM #### [facility] [address] [place] [address] Dr. Arden Magallon XR CHEST 1 Von [...] HARJINDER RAMIREZ Date: 2022-09-26 10:22 Normal [facility] CBC AUTO DIFFon 09-21-2022 BASO # 0.2 103/ul Critically high 0.0-0.1 [facility] Comment on above: Performed By: #### C BC #### [facility] [address] [place] [address] Dr. Arden Magallon Basophils/100 WBC (Bld) 2.0 % Normal 0.2-2.0 [facility] Comment on above: Performed By: #### C BC #### [facility] [address] [address] [address] Arden Magallon EO # 0.8 103/ul Critically high 0.0-0.7 [facility] Comment on above: Performed By: #### C BC #### [facility] [address] [place] [address] Dr. Arden Magallon Eosinophils/100 WBC (Bld) 9.7 % Critically high 0.9-7.0 [facility] Comment on above: Performed By: #### C BC #### [facility] [address] [place] [address] Dr. Arden Magallon Erythrocyte distribution width (RBC) [Ratio] 14.2 % Normal 11.0-15.0 [facility] Comment on above: Performed By: #### C BC #### [facility] [address] [place] [address] Dr. Arden Magallon Hematocrit (Bld) [Volume fraction] 39.2 % Normal 36.0-48.0 [facility] Comment on above: Performed By: #### C BC #### [facility] [address] [place] [address] Dr. Arden Magallon Hemoglobin (Bld) [Mass/Vol] 12.7 g/dL Normal 12.0-16.0 [facility] Comment on above: Performed By: #### C BC #### [facility] [address] [place] [address] Dr. Arden Magallon IG # 0.04 10e3/ul Critically high 0.00-0.03 [facility] Comment on above: Performed By: #### C BC #### [facility] [address] [place] [address] Dr. Arden Magallon IG % 0.5 % Normal 0.0-0.5 [facility] Comment on above: Performed By: #### C BC #### [facility] [address] [place] [address] Dr. Arden Magallon LYMPH # 1.7 103/ul Normal 1.2-3.8 [facility] Comment on above: Performed By: #### C BC #### [facility] [address] [place] [address] Dr. Arden Magallon Lymphocytes/100 WBC (Bld) 19.2 % Critically low 20.5-60.0 [facility] Comment on above: Performed By: #### C BC #### [facility] [address] [place] [address] Dr. Arden Magallon MANUAL DIFF REQ NO Normal [facility] Comment on above: Performed By: #### C BC #### [facility] [address] [place] [address] Dr. Arden Magallon MCH (RBC) [Entitic mass] 31.1 pg Normal 26.7-34.0 [facility] Comment on above: Performed By: #### C BC #### [facility] [address] [address] [address] Arden Magallon MCHC (RBC) [Mass/Vol] 32.4 g/dL Normal 29.9-35.2 [facility] Comment on above: Performed By: #### C BC #### [facility] [address] [address] [address] Arden Magallon MCV (RBC) [Entitic vol] 96.1 fL Normal 81.0-99.0 [facility] Comment on above: Performed By: #### C BC #### [facility] [address] [place] [address] Dr. Arden Magallon MONO # 0.8 103/ul Normal 0.3-0.8 [facility] Comment on above: Performed By: #### C BC #### [facility] [address] [place] [address] Dr. Arden Magallon Monocytes/100 WBC (Bld) 9.5 % Normal 1.7-12.0 [facility] Comment on above: Performed By: #### C BC #### [facility] [address] [place] [address] Dr. Arden Magallon NEUT # 5.2 103/ul Normal 1.4-6.5 [facility] Comment on above: Performed By: #### C BC #### [facility] [address] [place] [address] Dr. Arden Magallon Neutrophils/100 WBC (Bld) 59.1 % Normal 43.0-75.0 [facility] Comment on above: Performed By: #### C BC #### [facility] [address] [address] [address] Arden Magallon Platelet mean volume (Bld) [Entitic vol] 11.0 fL Normal 9.5-13.5 [facility] Comment on above: Performed By: #### C BC #### [facility] [address] [address] [address] Arden Magallon PLT 167 103/ul Normal 150-450 [facility] Comment on above: Performed By: #### C BC #### [facility] [address] [address] [address] Arden Magallon RBC 4.08 106/ul Critically low 4.20-5.40 [facility] Comment on above: Performed By: #### C BC #### [facility] [address] [address] [address] Arden Magallon WBC 8.7 103/ul Normal 4.0-11.0 [facility] Comment on above: Performed By: #### C BC #### [facility] [address] [address] [address] Arden Magallon PROF CHEM 8 (BAS METB)on Anion gap [Moles/Vol] 10.4 mmol/L Normal [facility] Comment on above: Performed By: #### B MP #### [facility] [address] [address] [address] Arden Magallon Calcium [Mass/Vol] 9.9 mg/dL Normal 8.5-10.1 [facility] Comment on above: Performed By: #### B MP #### [facility] [address] [address] [address] Arden Magallon Chloride [Moles/Vol] 104 mmol/L Normal 98-107 [facility] Comment on above: Performed By: #### B MP #### [facility] [address] [address] [address] Arden Magallon CO2 [Moles/Vol] 28.0 mmol/L Normal 21.0-32.0 [facility] Comment on above: Performed By: #### B MP #### [facility] [address] [address] [address] Arden Magallon Creatinine [Mass/Vol] 1.20 mg/dL Critically high 0.55-1.02 [facility] Comment on above: Performed By: #### B MP #### [facility] [address] [address] [address] Arden Magallon EGFR-AF COSTA RICAN 52 mL/min/1.73m2 Critically low >=60 [facility] Comment on above: Performed By: #### B MP #### [facility] [address] [address] [address] Arden Magallon EGFR-NON AF [place] R[place] 43 mL/min/1.73m2 Critically low >=60 [facility] Comment on above: Performed By: #### B MP #### [facility] [address] [address] [address] Arden Magallon Glucose [Mass/Vol] 133 mg/dL Critically high 74-106 [facility] Comment on above: Performed By: #### B MP #### [facility] [address] [address] [address] Arden Magallon Potassium [Moles/Vol] 3.4 mmol/L Critically low 3.5-5.1 [facility] Comment on above: Performed By: #### B MP #### [facility] [address] [address] [address] Arden Magallon Sodium [Moles/Vol] 139 mmol/L Normal 136-145 [facility] Comment on above: Performed By: #### B MP #### [facility] [address] [address] [address] Arden Magallon Urea nitrogen [Mass/Vol] 19.0 mg/dL Critically high 7.0-18.0 [facility] Comment on above: Performed By: #### B MP #### [facility] [address] [address] [address] Arden Magallon Urea nitrogen/Creatinine [Mass ratio] 15.8 mg/mg Normal [facility] Comment on above: Performed By: #### B MP #### [facility] [address] [address] [address] Arden Magallon TSHon 09-21-2022 TSH 1.918 uIU/mL Normal 0.358-3.740 [facility] Comment on above: Performed By: #### B MP #### [facility] [address] [address] [address] Arden Magallon BNPon 09-18-2022 Natriuretic peptide B (Bld) [Mass/Vol] 366.0 pg/mL Normal <=1,800.0 [facility] Comment on above: Performed By: #### B PRODUCTION INSPECTOR, CMP #### [facility] [address] [place] [address] Dr. Arden Magallon CBC AUTO DIFFon 09-18-2022 BASO # 0.1 103/ul Normal 0.0-0.1 [facility] Comment on above: Performed By: #### C BC #### [facility] [address] [place] [address] Dr. Arden Magallon Basophils/100 WBC (Bld) 1.7 % Normal 0.2-2.0 [facility] Comment on above: Performed By: #### C BC #### [facility] [address] [place] [address] Dr. Arden Magallon EO # 0.7 103/ul Normal 0.0-0.7 [facility] Comment on above: Performed By: #### C BC #### [facility] [address] [place] [address] Dr. Arden Magallon Eosinophils/100 WBC (Bld) 9.1 % Critically high 0.9-7.0 [facility] Comment on above: Performed By: #### C BC #### [facility] [address] [place] [address] Dr. Arden Magallon Erythrocyte distribution width (RBC) [Ratio] 14.4 % Normal 11.0-15.0 [facility] Comment on above: Performed By: #### C BC #### [facility] [address] [place] [address] Dr. Arden Magallon Hematocrit (Bld) [Volume fraction] 39.0 % Normal 36.0-48.0 [facility] Comment on above: Performed By: #### C BC #### [facility] [address] [place] [address] Dr. Arden Magallon Hemoglobin (Bld) [Mass/Vol] 12.8 g/dL Normal 12.0-16.0 [facility] Comment on above: Performed By: #### C BC #### [facility] [address] [place] [address] Dr. Arden Magallon IG # 0.02 10e3/ul Normal 0.00-0.03 [facility] Comment on above: Performed By: #### C BC #### [facility] [address] [place] [address] Dr. Arden Magallon IG % 0.3 % Normal 0.0-0.5 [facility] Comment on above: Performed By: #### C BC #### [facility] [address] [place] [address] Dr. Arden Magallon LYMPH # 1.8 103/ul Normal 1.2-3.8 [facility] Comment on above: Performed By: #### C BC #### [facility] [address] [place] [address] Dr. Arden Magallon Lymphocytes/100 WBC (Bld) 23.6 % Normal 20.5-60.0 [facility] Comment on above: Performed By: #### C BC #### [facility] [address] [place] [address] Dr. Arden Magallon MANUAL DIFF REQ NO Normal [facility] Comment on above: Performed By: #### C BC #### [facility] [address] [place] [address] Dr. Arden Magallon MCH (RBC) [Entitic mass] 31.0 pg Normal 26.7-34.0 [facility] Comment on above: Performed By: #### C BC #### [facility] [address] [place] [address] Dr. Arden Magallon MCHC (RBC) [Mass/Vol] 32.8 g/dL Normal 29.9-35.2 [facility] Comment on above: Performed By: #### C BC #### [facility] [address] [place] [address] Dr. Arden Magallon MCV (RBC) [Entitic vol] 94.4 fL Normal 81.0-99.0 [facility] Comment on above: Performed By: #### C BC #### [facility] [address] [place] [address] Dr. Arden Magallon MONO # 1.1 103/ul Critically high 0.3-0.8 [facility] Comment on above: Performed By: #### C BC #### [facility] [address] [place] [address] Dr. Arden Magallon Monocytes/100 WBC (Bld) 15.2 % Critically high 1.7-12.0 [facility] Comment on above: Performed By: #### C BC #### [facility] [address] [place] [address] Dr. Arden Magallon NEUT # 3.8 103/ul Normal 1.4-6.5 [facility] Comment on above: Performed By: #### C BC #### [facility] [address] [place] [address] Dr. Arden Magallon Neutrophils/100 WBC (Bld) 50.1 % Normal 43.0-75.0 [facility] Comment on above: Performed By: #### C BC #### [facility] [address] [place] [address] Dr. Arden Magallon Platelet mean volume (Bld) [Entitic vol] 11.0 fL Normal 9.5-13.5 [facility] Comment on above: Performed By: #### C BC #### [facility] [address] [place] [address] Dr. Arden Magallon PLT 149 103/ul Critically low 150-450 [facility] Comment on above: Performed By: #### C BC #### [facility] [address] [place] [address] Dr. Arden Magallon RBC 4.13 106/ul Critically low 4.20-5.40 [facility] Comment on above: Performed By: #### C BC #### [facility] [address] [place] [address] Dr. Arden Magallon WBC 7.5 103/ul Normal 4.0-11.0 [facility] Comment on above: Performed By: #### C BC #### [facility] [address] [place] [address] Dr. Arden Magallon D-DIMERon 09-18-2022 D-DIMER 0.32 mg/L FEU Normal <=0.59 [facility] Comment on above: Performed By: #### P T, DDIM #### [facility] [address] [place] [address] Dr. Arden Magallon D-DIMER COMMENTS SEE BELOW [facility] Comment on above: Result Comment: Incr [...] Performed By: #### P T, DDIM #### [facility] [address] [place] [address] Dr. Arden Magallon PROF 14(COMP METB)on 022 Albumin [Mass/Vol] 3.5 g/dL Normal 3.4-5.0 [facility] Comment on above: Performed By: #### B PRODUCTION INSPECTOR, CMP #### [facility] [address] [place] [address] Dr. Arden Magallon Albumin/Globulin [Mass ratio] 1.2 {ratio} Normal [facility] Comment on above: Performed By: #### B PRODUCTION INSPECTOR, CMP #### [facility] [address] [place] [address] Dr. Arden Magallon ALP [Catalytic activity/Vol] 57 U/L Normal 46-116 [facility] Comment on above: Performed By: #### B PRODUCTION INSPECTOR, CMP #### [facility] [address] [place] [address] Dr. Arden Magallon ALT [Catalytic activity/Vol] 16 U/L Normal 14-59 [facility] Comment on above: Performed By: #### B PRODUCTION INSPECTOR, CMP #### [facility] [address] [place] [address] Dr. Arden Magallon Anion gap [Moles/Vol] 9.1 mmol/L Normal [facility] Comment on above: Performed By: #### B PRODUCTION INSPECTOR, CMP #### [facility] [address] [address] [address] Arden Magallon AST [Catalytic activity/Vol] 17 U/L Normal 15-37 [facility] Comment on above: Performed By: #### B PRODUCTION INSPECTOR, CMP #### [facility] [address] [address] [address] Arden Magallon Bilirubin [Mass/Vol] 0.3 mg/dL Normal 0.2-1.0 [facility] Comment on above: Performed By: #### B PRODUCTION INSPECTOR, CMP #### [facility] [address] [address] [address] Arden Magallon Calcium [Mass/Vol] 9.6 mg/dL Normal 8.5-10.1 [facility] Comment on above: Performed By: #### B PRODUCTION INSPECTOR, CMP #### [facility] [address] [place] [address] Dr. Arden Magallon Chloride [Moles/Vol] 106 mmol/L Normal 98-107 [facility] Comment on above: Performed By: #### B PRODUCTION INSPECTOR, CMP #### [facility] [address] [place] [address] Dr. Arden Magallon CO2 [Moles/Vol] 24.9 mmol/L Normal 21.0-32.0 [facility] Comment on above: Performed By: #### B PRODUCTION INSPECTOR, CMP #### [facility] [address] [place] [address] Dr. Arden Magallon Creatinine [Mass/Vol] 1.06 mg/dL Critically high 0.55-1.02 [facility] Comment on above: Performed By: #### B PRODUCTION INSPECTOR, CMP #### [facility] [address] [place] [address] Dr. Arden Magallon EGFR-AF COSTA RICAN =60 Normal >=60 [facility] Comment on above: Performed By: #### B PRODUCTION INSPECTOR, CMP #### [facility] [address] [address] [address] Arden Magallon EGFR-NON AF COSTA RICAN 49 mL/min/1.73m2 Critically low >=60 [facility] Comment on above: Performed By: #### B PRODUCTION INSPECTOR, CMP #### [facility] [address] [address] [address] Arden Magallon Globulin (S) [Mass/Vol] 3.0 g/dL Normal [facility] Comment on above: Performed By: #### B PRODUCTION INSPECTOR, CMP #### [facility] [address] [address] [address] Arden Magallon Glucose [Mass/Vol] 111 mg/dL Critically high 74-106 [facility] Comment on above: Performed By: #### B PRODUCTION INSPECTOR, CMP #### [facility] [address] [place] [address] Dr. Arden Magallon Potassium [Moles/Vol] 4.0 mmol/L Normal 3.5-5.1 [facility] Comment on above: Performed By: #### B PRODUCTION INSPECTOR, CMP #### [facility] [address] [place] [address] Dr. Arden Magallon Protein [Mass/Vol] 6.5 g/dL Normal 6.4-8.2 [facility] Comment on above: Performed By: #### B PRODUCTION INSPECTOR, CMP #### [facility] [address] [place] [address] Dr. Arden Magallon Sodium [Moles/Vol] 136 mmol/L Normal 136-145 [facility] Comment on above: Performed By: #### B PRODUCTION INSPECTOR, CMP #### [facility] [address] [place] [address] Dr. Arden Magallon Urea nitrogen [Mass/Vol] 16.0 mg/dL Normal 7.0-18.0 [facility] Comment on above: Performed By: #### B PRODUCTION INSPECTOR, CMP #### [facility] [address] [place] [address] Dr. Arden Magallon Urea nitrogen/Creatinine [Mass ratio] 15.1 mg/mg Normal [facility] Comment on above: Performed By: #### B PRODUCTION INSPECTOR, CMP #### [facility] [address] [place] [address] Dr. Arden Magallon TROPONIN, HIGH SENSITIVITYon 09-18-2022 HSTROP 8.3 pg/mL Normal 4.0-51.3 [facility] Comment on above: Result Comment: CUT- OFF POINTS HAVE BEEN ESTABLISHED BASED ON THE FOURTH UNIVERSAL DEFINITIONS OF MYOCARDIAL INFARCTION. THE UPPER REFERENCE LIMIT (URL) OF TROPONIN, DEFINED THE 99TH PERCENTILE OF cTnI DISTRIBUTION IN A REFERENCE POPULATION, HAS BEEN CONFIRMED THE DECISION THRESHOLD FOR TX DIAGNOSIS. Performed By: #### B PRODUCTION INSPECTOR, CMP #### [facility] [address] [address] [address] Arden Magallon XR CHEST 1 Von [...] BERNIE NAVARRO Date: 2022-09-18 16:11 Normal [facility] CBC AUTO DIFFon 09-11-2022 BASO # 0.1 103/ul Normal 0.0-0.1 [facility] Comment on above: Performed By: #### B MP #### [facility] [address] [address] [address] Arden Magallon Basophils/100 WBC (Bld) 2.3 % Critically high 0.2-2.0 [facility] Comment on above: Performed By: #### B MP #### [facility] [address] [address] [address] Arden Magallon EO # 0.5 103/ul Normal 0.0-0.7 [facility] Comment on above: Performed By: #### B MP #### [facility] [address] [address] [address] Arden Magallon Eosinophils/100 WBC (Bld) 8.0 % Critically high 0.9-7.0 [facility] Comment on above: Performed By: #### B MP #### [facility] [address] [place] [address] Dr. Arden Magallon Erythrocyte distribution width (RBC) [Ratio] 13.8 % Normal 11.0-15.0 [facility] Comment on above: Performed By: #### B MP #### [facility] [address] [place] [address] Dr. Arden Magallon Hematocrit (Bld) [Volume fraction] 40.5 % Normal 36.0-48.0 [facility] Comment on above: Performed By: #### B MP #### [facility] [address] [place] [address] Dr. Arden Magallon Hemoglobin (Bld) [Mass/Vol] 13.5 g/dL Normal 12.0-16.0 [facility] Comment on above: Performed By: #### B MP #### [facility] [address] [place] [address] Dr. Arden Magallon IG # 0.01 10e3/ul Normal 0.00-0.03 [facility] Comment on above: Performed By: #### B MP #### [facility] [address] [place] [address] Dr. Arden Magallon IG % 0.2 % Normal 0.0-0.5 [facility] Comment on above: Performed By: #### B MP #### [facility] [address] [place] [address] Dr. Arden Magallon LYMPH # 1.5 103/ul Normal 1.2-3.8 [facility] Comment on above: Performed By: #### B MP #### [facility] [address] [place] [address] Dr. Arden Magallon Lymphocytes/100 WBC (Bld) 24.9 % Normal 20.5-60.0 [facility] Comment on above: Performed By: #### B MP #### [facility] [address] [place] [address] Dr. Arden Magallon MANUAL DIFF REQ NO Normal [facility] Comment on above: Performed By: #### B MP #### [facility] [address] [place] [address] Dr. Arden Magallon MCH (RBC) [Entitic mass] 31.1 pg Normal 26.7-34.0 [facility] Comment on above: Performed By: #### B MP #### [facility] [address] [place] [address] Dr. Arden Magallon MCHC (RBC) [Mass/Vol] 33.3 g/dL Normal 29.9-35.2 [facility] Comment on above: Performed By: #### B MP #### [facility] [address] [place] [address] Dr. Arden Magallon MCV (RBC) [Entitic vol] 93.3 fL Normal 81.0-99.0 [facility] Comment on above: Performed By: #### B MP #### [facility] [address] [place] [address] Dr. Arden Magallon MONO # 1.0 103/ul Critically high 0.3-0.8 [facility] Comment on above: Performed By: #### B MP #### [facility] [address] [place] [address] Dr. Arden Magallon Monocytes/100 WBC (Bld) 16.0 % Critically high 1.7-12.0 [facility] Comment on above: Performed By: #### B MP #### [facility] [address] [place] [address] Dr. Arden Magallon NEUT # 2.9 103/ul Normal 1.4-6.5 [facility] Comment on above: Performed By: #### B MP #### [facility] [address] [place] [address] Dr. Arden Magallon Neutrophils/100 WBC (Bld) 48.6 % Normal 43.0-75.0 [facility] Comment on above: Performed By: #### B MP #### [facility] [address] [place] [address] Dr. Arden Magallon Platelet mean volume (Bld) [Entitic vol] 10.8 fL Normal 9.5-13.5 [facility] Comment on above: Performed By: #### B MP #### [facility] [address] [place] [address] Dr. Arden Magallon PLT 138 103/ul Critically low 150-450 [facility] Comment on above: Performed By: #### B MP #### [facility] [address] [place] [address] Dr. Arden Magallon RBC 4.34 106/ul Normal 4.20-5.40 [facility] Comment on above: Performed By: #### B MP #### [facility] [address] [place] [address] Dr. Arden Magallon WBC 6.0 103/ul Normal 4.0-11.0 [facility] Comment on above: Performed By: #### B MP #### [facility] [address] [place] [address] Dr. Arden Magallon PROF CHEM 8 (BAS METB)on Anion gap [Moles/Vol] 9.0 mmol/L Normal [facility] Comment on above: Performed By: #### P T, DDIM #### [facility] [address] [place] [address] Dr. Arden Magallon Calcium [Mass/Vol] 9.6 mg/dL Normal 8.5-10.1 [facility] Comment on above: Performed By: #### P T, DDIM #### [facility] [address] [place] [address] Dr. Arden Magallon Chloride [Moles/Vol] 105 mmol/L Normal 98-107 [facility] Comment on above: Performed By: #### P T, DDIM #### [facility] [address] [place] [address] Dr. Arden Magallon CO2 [Moles/Vol] 29.1 mmol/L Normal 21.0-32.0 [facility] Comment on above: Performed By: #### P T, DDIM #### [facility] [address] [place] [address] Dr. Arden Magallon Creatinine [Mass/Vol] 1.00 mg/dL Normal 0.55-1.02 [facility] Comment on above: Performed By: #### P T, DDIM #### [facility] [address] [place] [address] Dr. Arden Magallon EGFR-AF COSTA RICAN >60 Normal >=60 [facility] Comment on above: Performed By: #### P T, DDIM #### [facility] [address] [place] [address] Dr. Aredn Magallon EGFR-NON AF COSTA RICAN 53 mL/min/1.73m2 Critically low >=60 [facility] Comment on above: Performed By: #### P T, DDIM #### [facility] [address] [place] [address] Dr. Arden Magallon Glucose [Mass/Vol] 116 mg/dL Critically high 74-106 [facility] Comment on above: Performed By: #### P T, DDIM #### [facility] [address] [place] [address] Dr. Arden Magallon Potassium [Moles/Vol] 4.1 mmol/L Normal 3.5-5.1 [facility] Comment on above: Performed By: #### P T, DDIM #### [facility] [address] [place] [address] Dr. Arden Magallon Sodium [Moles/Vol] 139 mmol/L Normal 136-145 [facility] Comment on above: Performed By: #### P T, DDIM #### [facility] [address] [place] [address] Dr. Arden Magallon Urea nitrogen [Mass/Vol] 15.0 mg/dL Normal 7.0-18.0 [facility] Comment on above: Performed By: #### P T, DDIM #### [facility] [address] [place] [address] Dr. Arden Magallon Urea nitrogen/Creatinine [Mass ratio] 15.0 mg/mg Normal [facility] Comment on above: Performed By: #### P T, DDIM #### [facility] [address] [place] [address] Dr. Arden Magallon CBC AUTO DIFFon 11-22-2022 BASO # 0.2 103/ul Critically high 0.0-0.1 [facility] Comment on above: Performed By: #### B PRODUCTION INSPECTOR, CMP #### [facility] [address] [place] [address] Dr. Arden Magallon Basophils/100 WBC (Bld) 2.7 % Critically high 0.2-2.0 [facility] Comment on above: Performed By: #### B PRODUCTION INSPECTOR, CMP #### [facility] [address] [place] [address] Dr. Arden Magallon EO # 0.5 103/ul Normal 0.0-0.7 [facility] Comment on above: Performed By: #### B PRODUCTION INSPECTOR, CMP #### [facility] [address] [place] [address] Dr. Arden Magallon Eosinophils/100 WBC (Bld) 6.7 % Normal 0.9-7.0 [facility] Comment on above: Performed By: #### B PRODUCTION INSPECTOR, CMP #### [facility] [address] [place] [address] Dr. Arden Magallon Erythrocyte distribution width (RBC) [Ratio] 14.3 % Normal 11.0-15.0 [facility] Comment on above: Performed By: #### B PRODUCTION INSPECTOR, CMP #### [facility] [address] [place] [address] Dr. Arden Magallon Hematocrit (Bld) [Volume fraction] 43.1 % Normal 36.0-48.0 [facility] Comment on above: Performed By: #### B PRODUCTION INSPECTOR, CMP #### [facility] [address] [place] [address] Dr. Arden Magallon Hemoglobin (Bld) [Mass/Vol] 14.5 g/dL Normal 12.0-16.0 [facility] Comment on above: Performed By: #### B PRODUCTION INSPECTOR, CMP #### [facility] [address] [place] [address] Dr. Arden Magallon IG # 0.02 10e3/ul Normal 0.00-0.03 [facility] Comment on above: Performed By: #### B PRODUCTION INSPECTOR, CMP #### [facility] [address] [place] [address] Dr. Arden Magallon IG % 0.3 % Normal 0.0-0.5 [facility] Comment on above: Performed By: #### B PRODUCTION INSPECTOR, CMP #### [facility] [address] [address] [address] Arden Magallon LYMPH # 3.1 103/ul Normal 1.2-3.8 [facility] Comment on above: Performed By: #### B PRODUCTION INSPECTOR, CMP #### [facility] [address] [place] [address] Dr. Arden Magallon Lymphocytes/100 WBC (Bld) 41.0 % Normal 20.5-60.0 [facility] Comment on above: Performed By: #### B PRODUCTION INSPECTOR, CMP #### [facility] [address] [place] [address] Dr. Arden Magallon MANUAL DIFF REQ NO Normal [facility] Comment on above: Performed By: #### B PRODUCTION INSPECTOR, CMP #### [facility] [address] [place] [address] Dr. Arden Magallon MCH (RBC) [Entitic mass] 31.6 pg Normal 26.7-34.0 [facility] Comment on above: Performed By: #### B PRODUCTION INSPECTOR, CMP #### [facility] [address] [place] [address] Dr. Arden Magallon MCHC (RBC) [Mass/Vol] 33.6 g/dL Normal 29.9-35.2 [facility] Comment on above: Performed By: #### B PRODUCTION INSPECTOR, CMP #### [facility] [address] [place] [address] Dr. Arden Magallon MCV (RBC) [Entitic vol] 93.9 fL Normal 81.0-99.0 [facility] Comment on above: Performed By: #### B PRODUCTION INSPECTOR, CMP #### [facility] [address] [place] [address] Dr. Arden Magallon MONO # 0.8 103/ul Normal 0.3-0.8 [facility] Comment on above: Performed By: #### B PRODUCTION INSPECTOR, CMP #### [facility] [address] [place] [address] Dr. Arden Magallon Monocytes/100 WBC (Bld) 10.9 % Normal 1.7-12.0 [facility] Comment on above: Performed By: #### B PRODUCTION INSPECTOR, CMP #### [facility] [address] [place] [address] Dr. Arden Magallon NEUT # 2.9 103/ul Normal 1.4-6.5 [facility] Comment on above: Performed By: #### B PRODUCTION INSPECTOR, CMP #### [facility] [address] [place] [address] Dr. Arden Magallon Neutrophils/100 WBC (Bld) 38.4 % Critically low 43.0-75.0 [facility] Comment on above: Performed By: #### B PRODUCTION INSPECTOR, CMP #### [facility] [address] [place] [address] Dr. Arden Magallon Platelet mean volume (Bld) [Entitic vol] 10.8 fL Normal 9.5-13.5 [facility] Comment on above: Performed By: #### B PRODUCTION INSPECTOR, CMP #### [facility] [address] [place] [address] Dr. Arden Magallon PLT 165 103/ul Normal 150-450 [facility] Comment on above: Performed By: #### B PRODUCTION INSPECTOR, CMP #### [facility] [address] [place] [address] Dr. Adren Magallon RBC 4.59 106/ul Normal 4.20-5.40 [facility] Comment on above: Performed By: #### B PRODUCTION INSPECTOR, CMP #### [facility] [address] [place] [address] Dr. Arden Magallon WBC 7.5 103/ul Normal 4.0-11.0 [facility] Comment on above: Performed By: #### B PRODUCTION INSPECTOR, CMP #### [facility] [address] [place] [address] Dr. Arden Magallon PROF 14(COMP METB)on 022 Albumin [Mass/Vol] 3.9 g/dL Normal 3.4-5.0 [facility] Comment on above: Performed By: #### P T, DDIM #### [facility] [address] [address] [address] Arden Magallon Albumin/Globulin [Mass ratio] 1.2 {ratio} Normal [facility] Comment on above: Performed By: #### P T, DDIM #### [facility] [address] [address] [address] Arden Magallon ALP [Catalytic activity/Vol] 69 U/L Normal 46-116 [facility] Comment on above: Performed By: #### P T, DDIM #### [facility] [address] [address] [address] Arden Magallon ALT [Catalytic activity/Vol] 16 U/L Normal 14-59 [facility] Comment on above: Performed By: #### P T, DDIM #### [facility] [address] [address] [address] Arden Magallon Anion gap [Moles/Vol] 8.6 mmol/L Normal [facility] Comment on above: Performed By: #### P T, DDIM #### [facility] [address] [address] [address] Arden Magallon AST [Catalytic activity/Vol] 14 U/L Critically low 15-37 [facility] Comment on above: Performed By: #### P T, DDIM #### [facility] [address] [address] [address] Arden Magallon Bilirubin [Mass/Vol] 0.3 mg/dL Normal 0.2-1.0 [facility] Comment on above: Performed By: #### P T, DDIM #### [facility] [address] [address] [address] Arden Magallon Calcium [Mass/Vol] 9.5 mg/dL Normal 8.5-10.[address] [facility] Comment on above: Performed By: #### P T, DDIM #### [facility] [address] [address] [address] Arden Magallon Chloride [Moles/Vol] 104 mmol/L Normal 98-107 [facility] Comment on above: Performed By: #### P T, DDIM #### [facility] [address] [address] [address] Arden Magallon CO2 [Moles/Vol] 29.2 mmol/L Normal 21.0-32.0 [facility] Comment on above: Performed By: #### P T, DDIM #### [facility] [address] [place] [address] Dr. Arden Magallon Creatinine [Mass/Vol] 1.25 mg/dL Critically high 0.55-1.02 [facility] Comment on above: Performed By: #### P T, DDIM #### [facility] [address] [place] [address] Dr. Arden Magallon EGFR-AF COSTA RICAN 49 mL/min/1.73m2 Critically low >=60 [facility] Comment on above: Performed By: #### P T, DDIM #### [facility] [address] [place] [address] Dr. Arden Magallon EGFR-NON AF COSTA RICAN 41 mL/min/1.73m2 Critically low >=60 [facility] Comment on above: Performed By: #### P T, DDIM #### [facility] [address] [place] [address] Dr. Arden Magallon Globulin (S) [Mass/Vol] 3.3 g/dL Normal [facility] Comment on above: Performed By: #### P T, DDIM #### [facility] [address] [place] [address] Dr. Arden Magallon Glucose [Mass/Vol] 119 mg/dL Critically high 74-106 [facility] Comment on above: Performed By: #### P T, DDIM #### [facility] [address] [place] [address] Dr. Arden Magallon Potassium [Moles/Vol] 3.8 mmol/L Normal 3.5-5.1 [facility] Comment on above: Performed By: #### P T, DDIM #### [facility] [address] [place] [address] Dr. Arden Magallon Protein [Mass/Vol] 7.2 g/dL Normal 6.4-8.[address] [facility] Comment on above: Performed By: #### P T, DDIM #### [facility] [address] [place] [address] Dr. Arden Magallon Sodium [Moles/Vol] 138 mmol/L Normal 136-[address] [facility] Comment on above: Performed By: #### P T, DDIM #### [facility] [address] [place] [address] Dr. Arden Magallon Urea nitrogen [Mass/Vol] 24.0 mg/dL Critically high 7.0-18.0 [facility] Comment on above: Performed By: #### P T, DDIM #### [facility] [address] [place] [address] Dr. Arden Magallon Urea nitrogen/Creatinine [Mass ratio] 19.2 mg/mg Normal [facility] Comment on above: Performed By: #### P T, DDIM #### [facility] [address] [place] [address] Dr. Arden Magallon BNPon 08-26-2022 Natriuretic peptide B (Bld) [Mass/Vol] 427.0 pg/mL Normal <=1,800.0 [facility] Comment on above: Performed By: #### P T, DDIM #### [facility] [address] [place] [address] Dr. Arden Magallon CARDIAC CINDY ADMITon 022 CK [Catalytic activity/Vol] 56 U/L Normal 26-192 [facility] Comment on above: Performed By: #### P T, DDIM #### [facility] [address] [place] [address] Dr. Arden Magallon CK.MB [Mass/Vol] 1.41 ng/mL Normal <=3.60 [facility] Comment on above: Performed By: #### P T, DDIM #### [facility] [address] [place] [address] Dr. Arden Magallon HSTROP 9.0 pg/mL Normal 4.0-51.3 [facility] Comment on above: Result Comment: CUT- OFF POINTS HAVE BEEN ESTABLISHED BASED ON THE FOURTH UNIVERSAL DEFINITIONS OF MYOCARDIAL INFARCTION. THE UPPER REFERENCE LIMIT (URL) OF TROPONIN, DEFINED THE 99TH PERCENTILE OF cTnI DISTRIBUTION IN A REFERENCE POPULATION, HAS BEEN CONFIRMED THE DECISION THRESHOLD FOR TX DIAGNOSIS. Performed By: #### P T, DDIM #### [facility] [address] [place] [address] Dr. Arden Magallon IKE 99 ng/mL Critically high 9-82 [facility] Comment on above: Performed By: #### P T, DDIM #### [facility] [address] [place] [address] Dr. Arden Magallon CBC AUTO DIFFon 08-26-2022 BASO # 0.2 103/ul Critically high 0.0-0.1 [facility] Comment on above: Performed By: #### C BC #### [facility] [address] [place] [address] Dr. Arden Magallon Basophils/100 WBC (Bld) 2.2 % Critically high 0.2-2.0 [facility] Comment on above: Performed By: #### C BC #### [facility] [address] [place] [address] Dr. Arden Magallon EO # 0.4 103/ul Normal 0.0-0.7 [facility] Comment on above: Performed By: #### C BC #### [facility] [address] [place] [address] Dr. Arden Magallon Eosinophils/100 WBC (Bld) 5.1 % Normal 0.9-7.0 [facility] Comment on above: Performed By: #### C BC #### [facility] [address] [place] [address] Dr. Arden Magallon Erythrocyte distribution width (RBC) [Ratio] 14.1 % Normal 11.0-15.0 [facility] Comment on above: Performed By: #### C BC #### [facility] [address] [place] [address] Dr. Arden Magallon Hematocrit (Bld) [Volume fraction] 41.2 % Normal 36.0-48.0 [facility] Comment on above: Performed By: #### C BC #### [facility] [address] [place] [address] Dr. Arden Magallon Hemoglobin (Bld) [Mass/Vol] 13.6 g/dL Normal 12.0-16.0 [facility] Comment on above: Performed By: #### C BC #### [facility] [address] [place] [address] Dr. Arden Magallon IG # 0.03 10e3/ul Normal 0.00-0.03 [facility] Comment on above: Performed By: #### C BC #### [facility] [address] [place] [address] Dr. Arden Magallon IG % 0.4 % Normal 0.0-0.5 [facility] Comment on above: Performed By: #### C BC #### [facility] [address] [place] [address] Dr. Arden Magallon LYMPH # 2.4 103/ul Normal 1.2-3.8 [facility] Comment on above: Performed By: #### C BC #### [facility] [address] [place] [address] Dr. Arden Magallon Lymphocytes/100 WBC (Bld) 30.1 % Normal 20.5-60.0 [facility] Comment on above: Performed By: #### C BC #### [facility] [address] [place] [address] Dr. Arden Magallon MANUAL DIFF REQ NO Normal [facility] Comment on above: Performed By: #### C BC #### [facility] [address] [place] [address] Dr. Arden Magallon MCH (RBC) [Entitic mass] 30.8 pg Normal 26.7-34.0 [facility] Comment on above: Performed By: #### C BC #### [facility] [address] [place] [address] Dr. Arden Magallon MCHC (RBC) [Mass/Vol] 33.0 g/dL Normal 29.9-35.2 [facility] Comment on above: Performed By: #### C BC #### [facility] [address] [address] [address] Arden Magallon MCV (RBC) [Entitic vol] 93.4 fL Normal 81.0-99.0 [facility] Comment on above: Performed By: #### C BC #### [facility] [address] [address] [address] Arden Magallon MONO # 0.8 103/ul Normal 0.3-0.8 [facility] Comment on above: Performed By: #### C BC #### [facility] [address] [place] [address] Dr. Arden Magallon Monocytes/100 WBC (Bld) 9.8 % Normal 1.7-12.0 [facility] Comment on above: Performed By: #### C BC #### [facility] [address] [place] [address] Dr. Arden Magallon NEUT # 4.2 103/ul Normal 1.4-6.5 [facility] Comment on above: Performed By: #### C BC #### [facility] [address] [place] [address] Dr. Arden Magallon Neutrophils/100 WBC (Bld) 52.4 % Normal 43.0-75.0 [facility] Comment on above: Performed By: #### C BC #### [facility] [address] [place] [address] Dr. Arden Magallon Platelet mean volume (Bld) [Entitic vol] 10.7 fL Normal 9.5-13.5 [facility] Comment on above: Performed By: #### C BC #### [facility] [address] [place] [address] Dr. Arden Magallon PLT 154 103/ul Normal 150-450 [facility] Comment on above: Performed By: #### C BC #### [facility] [address] [place] [address] Dr. Arden Magallon RBC 4.41 106/ul Normal 4.20-5.40 [facility] Comment on above: Performed By: #### C BC #### [facility] [address] [place] [address] Dr. Arden Magallon WBC 8.1 103/ul Normal 4.0-11.0 [facility] Comment on above: Performed By: #### C BC #### [facility] [address] [place] [address] Dr. Arden Magallon PROF 14(COMP METB)on 08-26- 022 Albumin [Mass/Vol] 3.7 g/dL Normal 3.4-5.0 [facility] Comment on above: Performed By: #### P T, DDIM #### [facility] [address] [place] [address] Dr. Arden Magallon Albumin/Globulin [Mass ratio] 1.2 {ratio} Normal [facility] Comment on above: Performed By: #### P T, DDIM #### [facility] [address] [place] [address] Dr. Arden Magallon ALP [Catalytic activity/Vol] 57 U/L Normal 46-116 [facility] Comment on above: Performed By: #### P T, DDIM #### [facility] [address] [place] [address] Dr. Arden Magallon ALT [Catalytic activity/Vol] 17 U/L Normal 14-59 [facility] Comment on above: Performed By: #### P T, DDIM #### [facility] [address] [place] [address] Dr. Arden Magallon Anion gap [Moles/Vol] 9.1 mmol/L Normal [facility] Comment on above: Performed By: #### P T, DDIM #### [facility] [address] [place] [address] Dr. Arden Magallon AST [Catalytic activity/Vol] 12 U/L Critically low 15-37 [facility] Comment on above: Performed By: #### P T, DDIM #### [facility] [address] [place] [address] Dr. Arden Magallon Bilirubin [Mass/Vol] 0.6 mg/dL Normal 0.2-1.0 [facility] Comment on above: Performed By: #### P T, DDIM #### [facility] [address] [address] [address] Arden Magallon Calcium [Mass/Vol] 9.5 mg/dL Normal 8.5-10.[address] [facility] Comment on above: Performed By: #### P T, DDIM #### [facility] [address] [place] [address] Dr. Arden Magallon Chloride [Moles/Vol] 105 mmol/L Normal 98-107 [facility] Comment on above: Performed By: #### P T, DDIM #### [facility] [address] [place] [address] Dr. Arden Magallon CO2 [Moles/Vol] 27.9 mmol/L Normal 21.0-32.0 [facility] Comment on above: Performed By: #### P T, DDIM #### [facility] [address] [place] [address] Dr. Arden Magallon Creatinine [Mass/Vol] 0.97 mg/dL Normal 0.55-1.02 [facility] Comment on above: Performed By: #### P T, DDIM #### [facility] [address] [place] [address] Dr. Arden Magallon EGFR-AF CO[place] >60 Normal >=60 [facility] Comment on above: Performed By: #### P T, DDIM #### [facility] [address] [place] [address] Dr. Arden Magallon EGFR-NON AF [place] 54 mL/min/1.73m2 Critically low >=60 [facility] Comment on above: Performed By: #### P T, DDIM #### [facility] [address] [place] [address] Dr. Arden Magallon Globulin (S) [Mass/Vol] 3.0 g/dL Normal [facility] Comment on above: Performed By: #### P T, DDIM #### [facility] [address] [place] [address] Dr. Arden Magallon Glucose [Mass/Vol] 105 mg/dL Normal 74-[address] [facility] Comment on above: Performed By: #### P T, DDIM #### [facility] [address] [place] [address] Dr. Arden Magallon Potassium [Moles/Vol] 4.0 mmol/L Normal 3.5-5.1 [facility] Comment on above: Performed By: #### P T, DDIM #### [facility] [address] [place] [address] Dr. Arden Magallon Protein [Mass/Vol] 6.7 g/dL Normal 6.4-8.[address] [facility] Comment on above: Performed By: #### P T, DDIM #### [facility] [address] [place] [address] Dr. Arden Magallon Sodium [Moles/Vol] 138 mmol/L Normal 136-[address] [facility] Comment on above: Performed By: #### P T, DDIM #### [facility] [address] [place] [address] Dr. Arden Magallon Urea nitrogen [Mass/Vol] 18.0 mg/dL Normal 7.0-18.0 [facility] Comment on above: Performed By: #### P T, DDIM #### [facility] [address] [place] [address] Dr. Arden Magallon Urea nitrogen/Creatinine [Mass ratio] 18.6 mg/mg Normal [facility] Comment on above: Performed By: #### P T, DDIM #### [facility] [address] [place] [address] Dr. Arden Magallon PROTIMEon 08-26-2022 INR Coag (PPP) [Relative time] 1.49 {INR} Normal [facility] Comment on above: Performed By: #### B PRODUCTION INSPECTOR, CMP #### [facility] [address] [place] [address] Dr. Arden Magallon INR GUIDELINES SEE BELOW Normal [facility] Comment on above: Result Comment: THANH RED INR: 2.0 - 3.0 CONDITIONS NOT LISTED BELOW 2.5 - 3.5 FOR PROSTHETIC HEART VALVE REPLACEMENT 2.5 - 3.5 RECURRENT THROMBOSIS Performed By: #### B PRODUCTION INSPECTOR, CMP #### [facility] [address] [place] [address] Dr. Arden Magallon PT Coag (PPP) [Time] 15.7 s Critically high 9.0-11.6 [facility] Comment on above: Performed By: #### B PRODUCTION INSPECTOR, CMP #### [facility] [address] [address] [address] Arden Magallon PTTon 08-26-2022 aPTT Coag (Bld) [Time] 30.2 s Normal 22.3-36.2 [facility] Comment on above: Performed By: #### B PRODUCTION INSPECTOR, CMP #### [facility] [address] [address] [address] Arden Magallon TROPONIN, HIGH SENSITIVITYon 08-26-2022 HSTROP 8.3 pg/mL Normal 4.0-51.3 [facility] Comment on above: Result Comment: CUT- OFF POINTS HAVE BEEN ESTABLISHED BASED ON THE FOURTH UNIVERSAL DEFINITIONS OF MYOCARDIAL INFARCTION. THE UPPER REFERENCE LIMIT (URL) OF TROPONIN, DEFINED THE 99TH PERCENTILE OF cTnI DISTRIBUTION IN A REFERENCE POPULATION, HAS BEEN CONFIRMED THE DECISION THRESHOLD FOR TX DIAGNOSIS. Performed By: #### B MP #### [facility] [address] [place] [address] Dr. Arden Magallon XR CHEST 1 Von [...] MOMO [place] Date: 2022-08-26 12:29 Normal [facility] BNPon 08-17-2022 Natriuretic peptide B (Bld) [Mass/Vol] 414.0 pg/mL Normal <=1,800.0 [facility] Comment on above: Performed By: #### B MP #### [facility] [address] [address] [address] Arden Magallon CBC AUTO DIFFon 08-17-2022 BASO # 0.2 103/ul Critically high 0.0-0.1 [facility] Comment on above: Performed By: #### B MP #### [facility] [address] [address] [address] Arden Magallon Basophils/100 WBC (Bld) 2.8 % Critically high 0.2-2.0 [facility] Comment on above: Performed By: #### B MP #### [facility] [address] [address] [address] Arden Magallon EO # 0.5 103/ul Normal 0.0-0.7 [facility] Comment on above: Performed By: #### B MP #### [facility] [address] [place] [address] Dr. Arden Magallon Eosinophils/100 WBC (Bld) 7.2 % Critically high 0.9-7.0 [facility] Comment on above: Performed By: #### B MP #### [facility] [address] [address] [address] Arden Magallon Erythrocyte distribution width (RBC) [Ratio] 14.1 % Normal 11.0-15.0 [facility] Comment on above: Performed By: #### B MP #### [facility] [address] [place] [address] Dr. Arden Magallon Hematocrit (Bld) [Volume fraction] 41.2 % Normal 36.0-48.0 [facility] Comment on above: Performed By: #### B MP #### [facility] [address] [address] [address] Arden Magallon Hemoglobin (Bld) [Mass/Vol] 13.5 g/dL Normal 12.0-16.0 [facility] Comment on above: Performed By: #### B MP #### [facility] [address] [place] [address] Dr. Arden Magallon IG # 0.01 10e3/ul Normal 0.00-0.03 [facility] Comment on above: Performed By: #### B MP #### [facility] [address] [place] [address] Dr. Arden Magallon IG % 0.1 % Normal 0.0-0.5 [facility] Comment on above: Performed By: #### B MP #### [facility] [address] [place] [address] Dr. Arden Magallon LYMPH # 2.7 103/ul Normal 1.2-3.8 [facility] Comment on above: Performed By: #### B MP #### [facility] [address] [place] [address] Dr. Arden Magallon Lymphocytes/100 WBC (Bld) 37.7 % Normal 20.5-60.0 [facility] Comment on above: Performed By: #### B MP #### [facility] [address] [place] [address] Dr. Arden Magallon MANUAL DIFF REQ NO Normal [facility] Comment on above: Performed By: #### B MP #### [facility] [address] [place] [address] Dr. Arden Magallon MCH (RBC) [Entitic mass] 31.2 pg Normal 26.7-34.0 [facility] Comment on above: Performed By: #### B MP #### [facility] [address] [place] [address] Dr. Arden Magallon MCHC (RBC) [Mass/Vol] 32.8 g/dL Normal 29.9-35.2 [facility] Comment on above: Performed By: #### B MP #### [facility] [address] [place] [address] Dr. Arden Magallon MCV (RBC) [Entitic vol] 95.2 fL Normal 81.0-99.0 [facility] Comment on above: Performed By: #### B MP #### [facility] [address] [place] [address] Dr. Arden Magallon MONO # 0.6 103/ul Normal 0.3-0.8 [facility] Comment on above: Performed By: #### B MP #### [facility] [address] [place] [address] Dr. Arden Magallon Monocytes/100 WBC (Bld) 8.2 % Normal 1.7-12.0 [facility] Comment on above: Performed By: #### B MP #### [facility] [address] [place] [address] Dr. Arden Magallon NEUT # 3.1 103/ul Normal 1.4-6.5 [facility] Comment on above: Performed By: #### B MP #### [facility] [address] [place] [address] Dr. Arden Magallon Neutrophils/100 WBC (Bld) 44.0 % Normal 43.0-75.0 [facility] Comment on above: Performed By: #### B MP #### [facility] [address] [place] [address] Dr. Arden Magallon Platelet mean volume (Bld) [Entitic vol] 11.5 fL Normal 9.5-13.5 [facility] Comment on above: Performed By: #### B MP #### [facility] [address] [place] [address] Dr. Arden Magallon PLT 160 103/ul Normal 150-450 [facility] Comment on above: Performed By: #### B MP #### [facility] [address] [place] [address] Dr. Arden Magallon RBC 4.33 106/ul Normal 4.20-5.40 [facility] Comment on above: Performed By: #### B MP #### [facility] [address] [place] [address] Dr. Arden Magallon WBC 7.1 103/ul Normal 4.0-11.0 [facility] Comment on above: Performed By: #### B MP #### [facility] [address] [place] [address] Dr. Arden Magallon D-DIMERon 08-17-2022 D-DIMER 0.36 mg/L FEU Normal <=0.59 [facility] Comment on above: Performed By: #### P T, DDIM #### [facility] [address] [place] [address] Dr. Arden Magallon D-DIMER COMMENTS SEE BELOW Normal [facility] Comment on above: Result Comment: Incr [...] Performed By: #### P T, DDIM #### [facility] [address] [place] [address] Dr. Arden Magallon PROF 14(COMP METB)on 022 Albumin [Mass/Vol] 3.7 g/dL Normal 3.4-5.0 [facility] Comment on above: Performed By: #### C BC #### [facility] [address] [place] [address] Dr. Arden Magallon Albumin/Globulin [Mass ratio] 1.1 {ratio} Normal [facility] Comment on above: Performed By: #### C BC #### [facility] [address] [place] [address] Dr. Arden Magallon ALP [Catalytic activity/Vol] 65 U/L Normal 46-116 [facility] Comment on above: Performed By: #### C BC #### [facility] [address] [place] [address] Dr. Arden Magallon ALT [Catalytic activity/Vol] 15 U/L Normal 14-59 [facility] Comment on above: Performed By: #### C BC #### [facility] [address] [place] [address] Dr. Arden Magallon Anion gap [Moles/Vol] 6.1 mmol/L Normal [facility] Comment on above: Performed By: #### C BC #### [facility] [address] [place] [address] Dr. Arden Magallon AST [Catalytic activity/Vol] 11 U/L Critically low 15-37 [facility] Comment on above: Performed By: #### C BC #### [facility] [address] [place] [address] Dr. Arden Magallon Bilirubin [Mass/Vol] 0.4 mg/dL Normal 0.2-1.0 [facility] Comment on above: Performed By: #### C BC #### [facility] [address] [place] [address] Dr. Arden Magallon Calcium [Mass/Vol] 9.6 mg/dL Normal 8.5-10.1 [facility] Comment on above: Performed By: #### C BC #### [facility] [address] [place] [address] Dr. Arden Magallon Chloride [Moles/Vol] 106 mmol/L Normal 98-107 [facility] Comment on above: Performed By: #### C BC #### [facility] [address] [place] [address] Dr. Arden Magallon CO2 [Moles/Vol] 29.5 mmol/L Normal 21.0-32.0 [facility] Comment on above: Performed By: #### C BC #### [facility] [address] [place] [address] Dr. Arden Magallon Creatinine [Mass/Vol] 1.02 mg/dL Normal 0.55-1.02 [facility] Comment on above: Performed By: #### C BC #### [facility] [address] [place] [address] Dr. Arden Magallon EGFR-AF [place] >60 Normal >=60 [facility] Comment on above: Performed By: #### C BC #### [facility] [address] [place] [address] Dr. Arden Magallon EGFR-NON AF [place] 51 mL/min/1.73m2 Critically low >=60 [facility] Comment on above: Performed By: #### C BC #### [facility] [address] [place] [address] Dr. Arden Magallon Globulin (S) [Mass/Vol] 3.3 g/dL Normal [facility] Comment on above: Performed By: #### C BC #### [facility] [address] [address] [address] Arden Magallon Glucose [Mass/Vol] 143 mg/dL Critically high 74-106 [facility] Comment on above: Performed By: #### C BC #### [facility] [address] [address] [address] Arden Magallon Potassium [Moles/Vol] 3.6 mmol/L Normal 3.5-5.1 [facility] Comment on above: Performed By: #### C BC #### [facility] [address] [address] [address] Arden Magallon Protein [Mass/Vol] 7.0 g/dL Normal 6.4-8.2 [facility] Comment on above: Performed By: #### C BC #### [facility] [address] [address] [address] Arden Magallon Sodium [Moles/Vol] 138 mmol/L Normal 136-145 [facility] Comment on above: Performed By: #### C BC #### [facility] [address] [address] [address] Arden Magallon Urea nitrogen [Mass/Vol] 21.0 mg/dL Critically high 7.0-18.0 [facility] Comment on above: Performed By: #### C BC #### [facility] [address] [address] [address] Arden Magallon Urea nitrogen/Creatinine [Mass ratio] 20.6 mg/mg [facility] Comment on above: Performed By: #### C BC #### [facility] [address] [address] [address] Arden Magallon PROTIMEon 08-17-2022 INR Coag (PPP) [Relative time] 1.27 {INR} [facility] Comment on above: Performed By: #### P T, DDIM #### [facility] [address] [address] [address] Arden Magallon INR GUIDELINES SEE BELOW Normal [facility] Comment on above: Result Comment: THANH RED INR: 2.0 - 3.0 CONDITIONS NOT LISTED BELOW 2.5 - 3.5 FOR PROSTHETIC HEART VALVE REPLACEMENT 2.5 - 3.5 RECURRENT THROMBOSIS Performed By: #### P T, DDIM #### [facility] [address] [address] [address] Arden Magallon PT Coag (PPP) [Time] 13.5 s Critically high 9.0-11.6 [facility] Comment on above: Performed By: #### P T, DDIM #### [facility] [address] [address] [address] Arden Magallon TROPONIN, HIGH SENSITIVITYon 08-17-2022 HSTROP 8.3 pg/mL Normal 4.0-51.3 [facility] Comment on above: Result Comment: CUT- OFF POINTS HAVE BEEN ESTABLISHED BASED ON THE FOURTH UNIVERSAL DEFINITIONS OF MYOCARDIAL INFARCTION. THE UPPER REFERENCE LIMIT (URL) OF TROPONIN, DEFINED THE 99TH PERCENTILE OF cTnI DISTRIBUTION IN A REFERENCE POPULATION, HAS BEEN CONFIRMED THE DECISION THRESHOLD FOR TX DIAGNOSIS. Performed By: #### B MP #### [facility] [address] [place] [address] Dr. Arden Magallon XR CHEST 1 Von [...] HARJINDER RAMIREZ Date: 2022-08-17 13:57 Normal [facility] ER URINE PROFILEon 2 Bilirubin Ql (U) Negative Normal NEGATIVE [facility] Comment on above: Performed By: #### P T, DDIM #### [facility] [address] [place] [address] Dr. Arden Magallon Clarity (U) CLEAR Normal CLEAR [facility] Comment on above: Performed By: #### P T, DDIM #### [facility] [address] [place] [address] Dr. Arden Magallon Color (U) LT. YELLOW Normal YELLOW [facility] Comment on above: Performed By: #### P T, DDIM #### [facility] [address] [place] [address] Dr. Arden STROUD A micrscopic examination will be performed if indicated. Normal [facility] Comment on above: Performed By: #### P T, DDIM #### [facility] [address] [place] [address] Dr. Arden Magallon Glucose Ql (U) Negative Normal NEGATIVE [facility] Comment on above: Performed By: #### P T, DDIM #### [facility] [address] [place] [address] Dr. Arden Magallon Hemoglobin Ql (U) SMALL Abnormal NEGATIVE [facility] Comment on above: Performed By: #### P T, DDIM #### [facility] [address] [place] [address] Dr. Arden Magallon Ketones Ql (U) Negative Normal NEGATIVE [facility] Comment on above: Performed By: #### P T, DDIM #### [facility] [address] [place] [address] Dr. Arden Magallon LEUKOCYTES TRACE Abnormal NEGATIVE [facility] Comment on above: Performed By: #### P T, DDIM #### [facility] [address] [place] [address] Dr. Arden Magallon Nitrite Ql (U) Negative Normal NEGATIVE [facility] Comment on above: Performed By: #### P T, DDIM #### [facility] [address] [place] [address] Dr. Arden Magallon pH (U) 7.0 [pH] Normal 5-9 [facility] Comment on above: Performed By: #### P T, DDIM #### [facility] [address] [place] [address] Dr. Arden Magallon SPEC GRAVITY 1.010 Normal 1.005-<=1.02 5 [facility] Comment on above: Performed By: #### P T, DDIM #### [facility] [address] [place] [address] Dr. Arden Magallon UA PROTEIN Negative Normal NEGATIVE/ TRACE [facility] Comment on above: Performed By: #### P T, DDIM #### [facility] [address] [place] [address] Dr. Arden Magallon UR MICRO IND INDICATED Normal [facility] Comment on above: Performed By: #### P T, DDIM #### [facility] [address] [place] [address] Dr. Arden Magallon Urobilinogen Qn (U) 0.2 {Myranda'U}/dL Normal 0.2 - 1. 0 [facility] Comment on above: Performed By: #### P T, DDIM #### [facility] [address] [place] [address] Dr. Arden Magallon URINE MICROSCOPIC ONLYon BACTERIA NONE SEEN Normal NONE SEEN [facility] Comment on above: Performed By: #### P T, DDIM #### [facility] [address] [place] [address] Dr. Arden Magallon Bacteria identified Cx Nom (U) NOT INDICATED Normal [facility] Comment on above: Performed By: #### P T, DDIM #### [facility] [address] [place] [address] Dr. Arden Magallon CAST NONE SEEN Normal NONE SEEN [facility] Comment on above: Performed By: #### P T, DDIM #### [facility] [address] [place] [address] Dr. Arden Magallon Crystals LM Nom (Urine sed) NONE SEEN Normal NONE SEEN [facility] Comment on above: Performed By: #### P T, DDIM #### [facility] [address] [place] [address] Dr. Arden Magallon Epithelial cells LM Ql (Urine sed) RARE Normal NONE SEEN /RARE [facility] Comment on above: Performed By: #### P T, DDIM #### [facility] [address] [address] [address] Arden Magallon MUCOUS NONE SEEN Normal NONE SEEN [facility] Comment on above: Performed By: #### P T, DDIM #### [facility] [address] [address] [address] Arden Magallon RBC 0-2 Normal 0-2 [facility] Comment on above: Performed By: #### P T, DDIM #### [facility] [address] [address] [address] Arden Magallon WBC 0-2 Abnormal NONE SEEN [facility] Comment on above: Performed By: #### P T, DDIM #### [facility] [address] [place] [address] Dr. Arden Magallon XR CHEST 1 Von [...] PANCHO ELY Date: 2022-04-15 22:19 Normal [facility] BNPon 04-15-2022 Natriuretic peptide B (Bld) [Mass/Vol] 318.0 pg/mL Normal <=1,800.0 [facility] Comment on above: Performed By: #### B PRODUCTION INSPECTOR, CMP #### [facility] [address] [place] [address] Dr. Arden Magallon CBC AUTO DIFFon 04-15-2022 BASO # 0.2 103/ul Critically high 0.0-0.1 [facility] Comment on above: Performed By: #### P T, DDIM #### [facility] [address] [place] [address] Dr. Arden Magallon Basophils/100 WBC (Bld) 2.2 % Critically high 0.2-2.0 [facility] Comment on above: Performed By: #### P T, DDIM #### [facility] [address] [place] [address] Dr. Arden Magallon EO # 0.5 103/ul Normal 0.0-0.7 [facility] Comment on above: Performed By: #### P T, DDIM #### [facility] [address] [place] [address] Dr. Arden Magallon Eosinophils/100 WBC (Bld) 6.2 % Normal 0.9-7.0 [facility] Comment on above: Performed By: #### P T, DDIM #### [facility] [address] [place] [address] Dr. Arden Magallon Erythrocyte distribution width (RBC) [Ratio] 14.0 % Normal 11.0-15.0 [facility] Comment on above: Performed By: #### P T, DDIM #### [facility] [address] [place] [address] Dr. Arden Magallon Hematocrit (Bld) [Volume fraction] 41.6 % Normal 36.0-48.0 [facility] Comment on above: Performed By: #### P T, DDIM #### [facility] [address] [place] [address] Dr. Arden Magallon Hemoglobin (Bld) [Mass/Vol] 13.8 g/dL Normal 12.0-16.0 [facility] Comment on above: Performed By: #### P T, DDIM #### [facility] [address] [place] [address] Dr. Arden Magallon IG # 0.01 10e3/ul Normal 0.00-0.03 [facility] Comment on above: Performed By: #### P T, DDIM #### [facility] [address] [place] [address] Dr. Arden Magallon IG % 0.1 % Normal 0.0-0.5 [facility] Comment on above: Performed By: #### P T, DDIM #### [facility] [address] [place] [address] Dr. Arden Magallon LYMPH # 3.2 103/ul Normal 1.2-3.8 [facility] Comment on above: Performed By: #### P T, DDIM #### [facility] [address] [place] [address] Dr. Arden Magallon Lymphocytes/100 WBC (Bld) 37.2 % Normal 20.5-60.0 [facility] Comment on above: Performed By: #### P T, DDIM #### [facility] [address] [place] [address] Dr. Arden Magallon MANUAL DIFF REQ NO Normal [facility] Comment on above: Performed By: #### P T, DDIM #### [facility] [address] [place] [address] Dr. Arden Magallon MCH (RBC) [Entitic mass] 31.0 pg Normal 26.7-34.0 [facility] Comment on above: Performed By: #### P T, DDIM #### [facility] [address] [place] [address] Dr. Arden Magallon MCHC (RBC) [Mass/Vol] 33.2 g/dL Normal 29.9-35.2 [facility] Comment on above: Performed By: #### P T, DDIM #### [facility] [address] [place] [address] Dr. Arden Magallon MCV (RBC) [Entitic vol] 93.5 fL Normal 81.0-99.0 [facility] Comment on above: Performed By: #### P T, DDIM #### [facility] [address] [place] [address] Dr. Arden Magallon MONO # 0.8 103/ul Normal 0.3-0.8 [facility] Comment on above: Performed By: #### P T, DDIM #### [facility] [address] [place] [address] Dr. Arden Magallon Monocytes/100 WBC (Bld) 9.4 % Normal 1.7-12.0 [facility] Comment on above: Performed By: #### P T, DDIM #### [facility] [address] [place] [address] Dr. Arden Magallon NEUT # 3.9 103/ul Normal 1.4-6.5 [facility] Comment on above: Performed By: #### P T, DDIM #### [facility] [address] [place] [address] Dr. Arden Magallon Neutrophils/100 WBC (Bld) 44.9 % Normal 43.0-75.0 [facility] Comment on above: Performed By: #### P T, DDIM #### [facility] [address] [place] [address] Dr. Arden Magallon Platelet mean volume (Bld) [Entitic vol] 10.7 fL Normal 9.5-13.5 [facility] Comment on above: Performed By: #### P T, DDIM #### [facility] [address] [place] [address] Dr. Arden Magallon PLT 158 103/ul Normal 150-450 [facility] Comment on above: Performed By: #### P T, DDIM #### [facility] [address] [place] [address] Dr. Arden Magallon RBC 4.45 106/ul Normal 4.20-5.40 [facility] Comment on above: Performed By: #### P T, DDIM #### [facility] [address] [place] [address] Dr. Arden Magallon WBC 8.7 103/ul Normal 4.0-11.0 [facility] Comment on above: Performed By: #### P T, DDIM #### [facility] [address] [place] [address] Dr. Arden Magallon PROF 14(COMP METB)on 022 Albumin [Mass/Vol] 4.2 g/dL Normal 3.4-5.0 [facility] Comment on above: Performed By: #### B PRODUCTION INSPECTOR, CMP #### [facility] [address] [address] [address] Arden Magallon Albumin/Globulin [Mass ratio] 1.2 {ratio} Normal [facility] Comment on above: Performed By: #### B PRODUCTION INSPECTOR, CMP #### [facility] [address] [address] [address] Arden Magallon ALP [Catalytic activity/Vol] 75 U/L Normal 46-116 [facility] Comment on above: Performed By: #### B PRODUCTION INSPECTOR, CMP #### [facility] [address] [place] [address] Dr. Arden Magallon ALT [Catalytic activity/Vol] 31 U/L Normal 14-59 [facility] Comment on above: Performed By: #### B PRODUCTION INSPECTOR, CMP #### [facility] [address] [place] [address] Dr. Arden Magallon Anion gap [Moles/Vol] 11.6 mmol/L Normal [facility] Comment on above: Performed By: #### B PRODUCTION INSPECTOR, CMP #### [facility] [address] [place] [address] Dr. Arden Magallon AST [Catalytic activity/Vol] 16 U/L Normal 15-37 [facility] Comment on above: Performed By: #### B PRODUCTION INSPECTOR, CMP #### [facility] [address] [place] [address] Dr. Arden Magallon Bilirubin [Mass/Vol] 0.4 mg/dL Normal 0.2-1.0 [facility] Comment on above: Performed By: #### B PRODUCTION INSPECTOR, CMP #### [facility] [address] [place] [address] Dr. Arden Magallon Calcium [Mass/Vol] 9.7 mg/dL Normal 8.5-10.1 [facility] Comment on above: Performed By: #### B PRODUCTION INSPECTOR, CMP #### [facility] [address] [place] [address] Dr. Arden Magallon Chloride [Moles/Vol] 106 mmol/L Normal 98-107 [facility] Comment on above: Performed By: #### B PRODUCTION INSPECTOR, CMP #### [facility] [address] [address] [address] Arden Magallon CO2 [Moles/Vol] 25.2 mmol/L Normal 21.0-32.0 [facility] Comment on above: Performed By: #### B PRODUCTION INSPECTOR, CMP #### [facility] [address] [address] [address] Arden Magallon Creatinine [Mass/Vol] 1.06 mg/dL Critically high 0.55-1.02 [facility] Comment on above: Performed By: #### B PRODUCTION INSPECTOR, CMP #### [facility] [address] [address] [address] Arden Magallon EGFR-AF [place] 60 mL/min/1.73m2 Normal >=60 [facility] Comment on above: Performed By: #### B PRODUCTION INSPECTOR, CMP #### [facility] [address] [place] [address] Dr. Arden Magallon EGFR-NON AF [place] 49 mL/min/1.73m2 Critically low >=60 [facility] Comment on above: Performed By: #### B PRODUCTION INSPECTOR, CMP #### [facility] [address] [place] [address] Dr. Arden Magallon Globulin (S) [Mass/Vol] 3.4 g/dL Normal [facility] Comment on above: Performed By: #### B PRODUCTION INSPECTOR, CMP #### [facility] [address] [place] [address] Dr. Arden Magallon Glucose [Mass/Vol] 123 mg/dL Critically high 74-106 T [facility] Comment on above: Performed By: #### B PRODUCTION INSPECTOR, CMP #### [facility] [address] [place] [address] Dr. Arden Magallon Potassium [Moles/Vol] 3.8 mmol/L Normal 3.5-5.1 [facility] Comment on above: Performed By: #### B PRODUCTION INSPECTOR, CMP #### [facility] [address] [place] [address] Dr. Arden Magallon Protein [Mass/Vol] 7.6 g/dL Normal 6.4-8.2 [facility] Comment on above: Performed By: #### B PRODUCTION INSPECTOR, CMP #### [facility] [address] [address] [address] Arden Magallon Sodium [Moles/Vol] 139 mmol/L Normal 136-145 [facility] Comment on above: Performed By: #### B PRODUCTION INSPECTOR, CMP #### [facility] [address] [address] [address] Arden Magallon Urea nitrogen [Mass/Vol] 22.0 mg/dL Critically high 7.0-18.0 [facility] Comment on above: Performed By: #### B PRODUCTION INSPECTOR, CMP #### [facility] [address] [address] [address] Arden Magallon Urea nitrogen/Creatinine [Mass ratio] 20.8 mg/mg Normal [facility] Comment on above: Performed By: #### B PRODUCTION INSPECTOR, CMP #### [facility] [address] [address] [address] Arden Magallon ECHOCARDIO M/2D COMPLETEon 0 04-06-2022 ECHOCARDIO M/2D COMPLETE Patient: ZORAIDA GAYTAN Exam Date: 04/06/2022 : 1935 Gender:F Ordering : HERMELINDA HUGO Admission #: [id number] Family : Order #: [id number] CLICK HERE TO VIEW EXAM ECHOCARDIOGRAM REPORT [...] Area(A4C): 16.40 cm2 Left Atrium Systolic Volume(A2C): 62327 mm3 Left Atrium Systolic Volume(A4C): 85312 mm3 Mitral Valve MV E to A Ratio: 0.60 Deceleration Mcclain: 2080 mm/s2 Mitral Valve A-Wave Peak Velocity: 103.00 cm/s Mitral Valve E-Wave Peak Velocity: 62.20 cm/s Right Ventricle RV Internal Diastolic Dimension: 3.04 cm Aorta AO Root Diam: 2.90 cm Aortic Valve AoV Area (Peak Bucky): 1.86 cm2 Deceleration Mcclain: 1080 mm/s2 Pressure Half-Time: 976 ms Peak Velocity: 361.00 cm/s Peak Gradient: 52 mm[Hg] Aortic Valve Cusp Separation: 1.50 cm Peak Velocity(Antegrade Flow): 138.00 cm/s Peak Gradient(Antegrade Flow): 8 mm[Hg] Tricuspid Valve Peak Velocity (Regurgitant Flow): 243.00 cm/s, 212.00 cm/s Pulmonic Valve Peak Velocity: 94.30 cm/s Peak Gradient: 4 mm[Hg] Right Atrium Dictated by: Edvin Grubbs M.D. on 04/06/2022 at 16:23 Approved by: Edvin Grubbs M.D. on 04/06/2022 at 16:27 Normal [facility] US KIDNEYSon 04-06-2022 US KIDNEYS EXAMINATION: US [...] BERTHA SOLIZ Date: 2022-04-06 16:45 Normal [facility] BNPon 03-17-2022 Natriuretic peptide B (Bld) [Mass/Vol] 193.0 pg/mL Normal <=1,800.0 [facility] Comment on above: Performed By: #### B PRODUCTION INSPECTOR, CMP #### [facility] [address] [place] [address] Dr. Arden Magallon CBC AUTO DIFFon 03-17-2022 BASO # 0.1 103/ul Normal 0.0-0.1 [facility] Comment on above: Performed By: #### B PRODUCTION INSPECTOR, CMP #### [facility] [address] [place] [address] Dr. Arden Magallon Basophils/100 WBC (Bld) 0.9 % Normal 0.2-2.0 [facility] Comment on above: Performed By: #### B PRODUCTION INSPECTOR, CMP #### [facility] [address] [place] [address] Dr. Arden Magallon EO # 0.4 103/ul Normal 0.0-0.7 [facility] Comment on above: Performed By: #### B PRODUCTION INSPECTOR, CMP #### [facility] [address] [place] [address] Dr. Arden Magallon Eosinophils/100 WBC (Bld) 4.7 % Normal 0.9-7.0 [facility] Comment on above: Performed By: #### B PRODUCTION INSPECTOR, CMP #### [facility] [address] [place] [address] Dr. Arden Magallon Erythrocyte distribution width (RBC) [Ratio] 14.2 % Normal 11.0-15.0 [facility] Comment on above: Performed By: #### B PRODUCTION INSPECTOR, CMP #### [facility] [address] [place] [address] Dr. Arden Magallon Hematocrit (Bld) [Volume fraction] 43.1 % Normal 36.0-48.0 [facility] Comment on above: Performed By: #### B PRODUCTION INSPECTOR, CMP #### [facility] [address] [place] [address] Dr. Arden Magallon Hemoglobin (Bld) [Mass/Vol] 14.1 g/dL Normal 12.0-16.0 [facility] Comment on above: Performed By: #### B PRODUCTION INSPECTOR, CMP #### [facility] [address] [place] [address] Dr. Arden Magallon IG # 0.04 10e3/ul Critically high 0.00-0.03 [facility] Comment on above: Performed By: #### B PRODUCTION INSPECTOR, CMP #### [facility] [address] [place] [address] Dr. Arden Magallon IG % 0.5 % Normal 0.0-0.5 [facility] Comment on above: Performed By: #### B PRODUCTION INSPECTOR, CMP #### [facility] [address] [place] [address] Dr. Arden Magallon LYMPH # 3.0 103/ul Normal 1.2-3.8 [facility] Comment on above: Performed By: #### B PRODUCTION INSPECTOR, CMP #### [facility] [address] [place] [address] Dr. Arden Magallon Lymphocytes/100 WBC (Bld) 34.2 % Normal 20.5-60.0 [facility] Comment on above: Performed By: #### B PRODUCTION INSPECTOR, CMP #### [facility] [address] [place] [address] Dr. Arden Magallon MANUAL DIFF REQ NO Normal [facility] Comment on above: Performed By: #### B PRODUCTION INSPECTOR, CMP #### [facility] [address] [place] [address] Dr. Arden Magallon MCH (RBC) [Entitic mass] 31.3 pg Normal 26.7-34.0 [facility] Comment on above: Performed By: #### B PRODUCTION INSPECTOR, CMP #### [facility] [address] [place] [address] Dr. Arden Magallon MCHC (RBC) [Mass/Vol] 32.7 g/dL Normal 29.9-35.2 [facility] Comment on above: Performed By: #### B PRODUCTION INSPECTOR, CMP #### [facility] [address] [place] [address] Dr. Arden Magallon MCV (RBC) [Entitic vol] 95.8 fL Normal 81.0-99.0 [facility] Comment on above: Performed By: #### B PRODUCTION INSPECTOR, CMP #### [facility] [address] [place] [address] Dr. Arden Magallon MONO # 1.2 103/ul Critically high 0.3-0.8 [facility] Comment on above: Performed By: #### B PRODUCTION INSPECTOR, CMP #### [facility] [address] [place] [address] Dr. Arden Magallon Monocytes/100 WBC (Bld) 13.5 % Critically high 1.7-12.0 [facility] Comment on above: Performed By: #### B PRODUCTION INSPECTOR, CMP #### [facility] [address] [place] [address] Dr. Arden Magallon NEUT # 4.1 103/ul Normal 1.4-6.5 [facility] Comment on above: Performed By: #### B PRODUCTION INSPECTOR, CMP #### [facility] [address] [address] [address] Arden Magallon Neutrophils/100 WBC (Bld) 46.2 % Normal 43.0-75.0 [facility] Comment on above: Performed By: #### B PRODUCTION INSPECTOR, CMP #### [facility] [address] [address] [address] Arden Magallon Platelet mean volume (Bld) [Entitic vol] 11.2 fL Normal 9.5-13.5 [facility] Comment on above: Performed By: #### B PRODUCTION INSPECTOR, CMP #### [facility] [address] [address] [address] Arden Magallon PLT 160 103/ul Normal 150-450 [facility] Comment on above: Performed By: #### B PRODUCTION INSPECTOR, CMP #### [facility] [address] [place] [address] Dr. Arden Magallon RBC 4.50 106/ul Normal 4.20-5.40 [facility] Comment on above: Performed By: #### B PRODUCTION INSPECTOR, CMP #### [facility] [address] [place] [address] Dr. Arden Magallon WBC 8.9 103/ul Normal 4.0-11.0 [facility] Comment on above: Performed By: #### B PRODUCTION INSPECTOR, CMP #### [facility] [address] [place] [address] Dr. Arden Magallon PROF 14(COMP METB)on 022 Albumin [Mass/Vol] 4.0 g/dL Normal 3.4-5.0 [facility] Comment on above: Performed By: #### B PRODUCTION INSPECTOR, CMP #### [facility] [address] [place] [address] Dr. Arden Magallon Albumin/Globulin [Mass ratio] 1.2 {ratio} Normal [facility] Comment on above: Performed By: #### B PRODUCTION INSPECTOR, CMP #### [facility] [address] [place] [address] Dr. Arden Magallon ALP [Catalytic activity/Vol] 74 U/L Normal 46-116 [facility] Comment on above: Performed By: #### B PRODUCTION INSPECTOR, CMP #### [facility] [address] [address] [address] Arden Magallon ALT [Catalytic activity/Vol] 28 U/L Normal 14-59 [facility] Comment on above: Performed By: #### B PRODUCTION INSPECTOR, CMP #### [facility] [address] [address] [address] Arden Magallon Anion gap [Moles/Vol] 11.9 mmol/L Normal [facility] Comment on above: Performed By: #### B PRODUCTION INSPECTOR, CMP #### [facility] [address] [address] [address] Arden Magallon AST [Catalytic activity/Vol] 18 U/L Normal 15-37 [facility] Comment on above: Performed By: #### B PRODUCTION INSPECTOR, CMP #### [facility] [address] [address] [address] Arden Magallon Bilirubin [Mass/Vol] 0.4 mg/dL Normal 0.2-1.0 [facility] Comment on above: Performed By: #### B PRODUCTION INSPECTOR, CMP #### [facility] [address] [address] [address] Arden Magallon Calcium [Mass/Vol] 9.7 mg/dL Normal 8.5-10.1 [facility] Comment on above: Performed By: #### B PRODUCTION INSPECTOR, CMP #### [facility] [address] [address] [address] Arden Magallon Chloride [Moles/Vol] 105 mmol/L Normal 98-107 [facility] Comment on above: Performed By: #### B PRODUCTION INSPECTOR, CMP #### [facility] [address] [address] [address] Arden Magallon CO2 [Moles/Vol] 26.3 mmol/L Normal 21.0-32.0 [facility] Comment on above: Performed By: #### B PRODUCTION INSPECTOR, CMP #### [facility] [address] [address] [address] Arden Magallon Creatinine [Mass/Vol] 1.31 mg/dL Critically high 0.55-1.02 [facility] Comment on above: Performed By: #### B PRODUCTION INSPECTOR, CMP #### [facility] [address] [address] [address] Arden Magallon EGFR-AF [place] 47 mL/min/1.73m2 Critically low >=60 [facility] Comment on above: Performed By: #### B PRODUCTION INSPECTOR, CMP #### [facility] [address] [address] [address] Arden Magallon EGFR-NON AF [place] 38 mL/min/1.73m2 Critically low >=60 [facility] Comment on above: Performed By: #### B PRODUCTION INSPECTOR, CMP #### [facility] [address] [address] [address] Arden Magallon Globulin (S) [Mass/Vol] 3.3 g/dL Normal [facility] Comment on above: Performed By: #### B PRODUCTION INSPECTOR, CMP #### [facility] [address] [address] [address] Arden Magallon Glucose [Mass/Vol] 111 mg/dL Critically high 74-106 [facility] Comment on above: Performed By: #### B PRODUCTION INSPECTOR, CMP #### [facility] [address] [address] [address] Arden Magallon Potassium [Moles/Vol] 4.2 mmol/L Normal 3.5-5.1 [facility] Comment on above: Performed By: #### B PRODUCTION INSPECTOR, CMP #### [facility] [address] [address] [address] Arden Magallon Protein [Mass/Vol] 7.3 g/dL Normal 6.4-8.[address] [facility] Comment on above: Performed By: #### B PRODUCTION INSPECTOR, CMP #### [facility] [address] [address] [address] Arden Magallon Sodium [Moles/Vol] 139 mmol/L Normal 136-145 [facility] Comment on above: Performed By: #### B PRODUCTION INSPECTOR, CMP #### [facility] [address] [address] [address] Arden Magallon Urea nitrogen [Mass/Vol] 24.0 mg/dL Critically high 7.0-18.0 [facility] Comment on above: Performed By: #### B PRODUCTION INSPECTOR, CMP #### [facility] [address] [place], [place] [address] Dr. Arden Magallon Urea nitrogen/Creatinine [Mass ratio] 18.3 mg/mg Normal [facility] Comment on above: Performed By: #### B PRODUCTION INSPECTOR, CMP #### [facility] [address] [place], [place] [address] Dr. Arden Magallon TROPONIN, HIGH SENSITIVITYon 03-17-2022 HSTROP 8.6 pg/mL Normal 4.0-51.3 [facility] Comment on above: Result Comment: CUT- OFF POINTS HAVE BEEN ESTABLISHED BASED ON THE FOURTH UNIVERSAL DEFINITIONS OF MYOCARDIAL INFARCTION. THE UPPER REFERENCE LIMIT (URL) OF TROPONIN, DEFINED THE 99TH PERCENTILE OF cTnI DISTRIBUTION IN A REFERENCE POPULATION, HAS BEEN CONFIRMED THE DECISION THRESHOLD FOR TX DIAGNOSIS. Performed By: #### C BC #### [facility] [address] [address] [address] Arden Magallon Coding Summary.on 03-04-2022 Coding Summary. CD:[id number] Gh 0bWw+PGhlYWQ+BL4JGGAyP 39igWTjtS5FB7dZSQ4IQCP VBOSWAI5OLJ5mkHA1CAcoX 2VybiAv TkfyuRLbRZ05DFc4MTM5bJ qwUFwihC9anHVkO7t6GvIv UJ93cW14WDlfGAXiDsF8Vg ZpbjsgbWFy P8zuCiZdwRRvXnc+PHRhYm xlIHdpZHRoPScxMDAlJyBz sJegIY0wYk1qWLVcYDVcqT xhcHNlOiBj o3yvFFIlGGulCU3haNfeZ3 IacMD9DLIwb5f4Qi17dYF+ WJIaTGF3zOemPWfem015Lp Xwf0xbDXB6 zRYyFNaaCMA9U32vu6O2LY EiXQXaQNB4zQO7gQ7biJpi kuhvP5FcgCRbCzN0EVK7tK QnwL5ryFfq jbdoeP7hCmc+K93ILH7XSO SEMJ0VIwh5E9YdAzwpdEZ+ YA81QUQuOL47tYUrcYVsq5 fnjHf1OcHl DFYzYIC4iTpyFIxaj7RdKJ VkZ15mzTUyr5T4SKWoePlq bPXtKjPzhLR4qZ0gOBozho iaq2bqsmnv Hcybq7fhwb76mL09F50pVO jfNGJpEXF8QZVtFESzqNld pg7vtJ4lGd3+HLnxl7qnb0 mprKd6DbRl QUQivzKzqHtgAZL4z1KxDh 52P3XflJqkc6XxLhm0io19 tZFvs4D8hRS9KVatZCDweX 5bLZzkApR4 CAReUgEphV71vLGoOCthBu 9xjOkejWtgNK4oMMOllxtd FPAckY0yPHNefMUznZmhKR 4wNTBpbjtm b120ViWiNES0VWPgzXVrR7 UmiS6uHoRhNSZcXQRrH2Yc jRWfCZanH488MEdwCuS7ZL TgyuCoD3Sn JHKnuWbiHzK7l7X8Dj1Of7 OucoxjOJP9XStwKCI4SrU4 KoCaEeC8N6FtVqk4ISPokJ oxPB2mC9Pc LSYikqetrhufsZX5TVLgIH QyyQ46bOOfFJqlLo5tq9H7 j392DPWhEJUwpC22Lg8dmK ogMTBwdCBU wI7fuwssg2rsztycVzOwJF AzFYf4EKh3HCGbkXtkRpWw WJQ4BvD4LHP7eNJduX6ltY jadisgxY5z Oyc+B19hzT1gDYG1PPB5so gdNQNysnKxWJ43NS06D6Mr PjwvdGFibGU+PGRpdiBzdH riQD6wEeIu o2ebe2LsPYskB6OpNDRjHJ khLzh5KUTsDTS0kJI3vO3n QJChLHjfh0M0lYO1F8Vhde Arzx0md0ef SETyOQdeI68xbYKsd2F6VW ZaePL8OTClbXkwNsUynN58 Oyc+EBRokQlde9ZvXskse0 pwp7nwkLh8 NnYvROBrdzOykVqpHOF3s1 VmEn74L83rKWndSNLvXKDu NWGzARMcwJoqtq5uzX8pHz 8+PGNvbCB3 xOR7lQ4jIMQoZaK5BSihZ0 83UjFptUQsQndlc0cqf1ws dZg2MiEeVUJnvmObtSjxHK V1r9MgFl17 R27mOFilFKXiKCLjYSOtJJ PnrMocup8fiZ6cXw7+PC9j w4kilg99cT67fDF+PHRkIH M9iDlmULaw IUWovN2jYQnmHhW6KWJtAq EzkL79pHVuEYvzLr1fbJeo gJnxNT8pCJOgrfyqo466Ca Bjn7zuUUCh sPVlYRhsSQF7V54ev1P2PP JtIHYbAXN5rMK3eN0psXqa bjogbGVmdDsgdmVydGljYW xfALucA577 IHRvcDsnPlBhdGllbnQgTm TtQEb9N3NlFtu1XKFiyXyf NZ4lcTOwRStzFn3bsTgwiX nqQX1sBFZs pcoym914BdJns6hlZROgdV NoCKvpZRO3U80gy8T1YLHa ODWuIRZ2gSP2hJ9whOjxtd ogbGVmdDsg faRlvMmsHUusMBdoX137UF RvcDsnPkJpcnRoIERhdGU6 VD84GE78oUEge0C4gYD8C0 BhZGRpbmct haevgDV1QXIbONBzpR59Rd 3rkYlhUo7vQVWuHYT5DWVh fPOwP5TdsU1fCxBxZIQsZM DxF9UxfHIq HJbjT702QCnyPaL3YNXujo CwL1SwWXNwhDlaUiP0q4I0 Os0OZ2Y7OM09KW33dAJfp4 V1xPR0X8Ng LIMfzymtrddvtTP4BRCrKD BwfB53Zf6fiCoyLi6qBUBq NYT2WWGrdWIjG9QsrH0lCp AjMDAwMDAw Z6PlgMIxVXiuK933DAmhSx F0ZPPdgzZtR9MgFCWfiUzr UkZ8l3L2Ki3FFQv7QK39FT 83jYKni2L3 pSL6N3KtHQYnhdnbqwngmE V3DYPlUFDwzY98Ce6eqKoe Cv4fKPUfYRU6LAWqlIHiP3 YjrD8vBhCj SZWbYEXmM2QpqSTiENpyC1 30DEodIfW7WIOsehMgS6Rr NXEzhXhyBlP6j1C5Od7GUB UmDW36MHQ2 vZZ7LD58HP82K3NtIyvwqZ FibGU+PHRhYmxlIHdpZHRo SHcxWRPmDfZeqTxjFT7eTz 9yZGVyLWNv lIjikDCkVkVrd9jtUJDfRW wpFO6eqHztS9DhgZV3ZJRn w1i7Ru75R76xZ4SelZH+PG UddXD9yKX9 hN0jWfBuKxN5PDyeB402Bu OcrWSuTyfnl5bbj7hgrVa3 XqX5KRCklvXxoMfaZDL6z6 JcKe10G80c IHdpZHRoPSIxNSUiIHZhbG qtbu1izN4cYw9+PGNvbCB3 jBD9iQ1nWoKhQyO7YFdmC4 49InRvcCIv Bqyre1nsq2fvdRs5OqYvLG OfxyHybSwuGGM3h9MtOm65 X6DdhNfty6AmSsb2nb24sE Jot0A4uBX5 E6GoDTVklmmwcXDflJwoWH 2aEDUytadiZZPbiT4oCSZx O5i7RnCmQcW8IBsdQ5Snem O0GPDltCLb DGlwVRE4Y50dq7C5YPZpSW PmNWU4sBJ2gU9coBibpbik bGVmdDsgdmVydGljYWwtYW nlU676IWWg dOkbJVIxpU1iFWIetIDruW cqUH8gASImbjpfWjPMJGCv LCBERUxFRTwvdGQ+PHRkIH T4qVwhPJyg DUFyfO6kFJSlJ7e4WtDqQo C6ZGecK9IxOFErwzciDp33 xL9iVrOjNfX5FGdyC7Kjaq E0KTTfbQKo MVjhPZM1S67bv4H0IYHzQV WaSAL3sVJ3oN9rbLazmfxi bGVmdDsgdmVydGljYWwtYW mhC884MKAn fKknCjShPtD2YgO6MnY9E1 UvTpq5XKLaqLmqHA2feIEx VMyiQa8uyTpeoBigIM4pMN BpbjtwYWRk yN3xNGJtlGSysSumJX7iKL Toqvojp989SwFvJXW6WQXn cHEcR3AehK2iIzYtJHGbKY WdK3RmtKVa KPklQ313HFnpVoQ0OQGylq SrN0HgLSQxvRncSsD8f6J9 Mm70LiZOYFNtrucbyAF+PH TtMYK1lXvg YBsoXEJxyW0yCYMxJ6h6Th RwLmN9GPduK7JeAQRqezwo Pi14yL0gGxWnCrP8XMujI2 CestU4TABs hWAxDGfbAQL0H76wt3F7DT SeSDBqEYI2eJA8pQ5snIbp bjogbGVmdDsgdmVydGljYW sbRArbQ728 IHRvcDsnPkZlbWFsZTwvdG Q+IMTkLOH6jXazHUvxWIFm rR8eHGClI6y4HeUuOeD8ED vzT3DzCWDs wtjwVq11kN9tNxNdQeG5SM unZ0DzvuZ4GITudNLyZKyu UJO7V80ni2X6GISqRBJcPQ R1qTK2sL8c bGlnbjogbGVmdDsgdmVydG vaWKenAOnsA655MRMkmQtt LjZqEYFdUV4psYvdrZA+PC 66on20F6Nk PtisBwz8DOWeTHL8qSM8pS 4qBUIhDKzhp7L4wUZ5C0Sg whJlbc7ct2klBVRlFYdxU5 2mbDOmn4M2 SWGrrZS3NOHvfDgwNdEemU 93Oyc+QJAtyFozt4NqHlog j5lrj1jkvFl7IsIjAJAmht FsaWduPSJ0 f8VhKu88F65hFDazNBDhFO XwTKAqPDVmjQgfno0bcT2o Ii8+VPXuoAG7vBI7lF8eJl ZsOfN5MJqc G981BuRiyKZkMzqae3spe7 juaEr1GlSyHSPrghYojKwm QCN7d0JzZj07K7IftZmfb3 PyAtj2gz05 xBOyo4Y4yDS7J3WvWVPzan jpqJMtsLfdCN6uWASssknb NRIqdD0bIGFoP9c0MkKyRl X4RMnoG8Pf jtO8JJTioYWnAGAheMOFcG 4fequhh7nfieusBuYrMKSr WQi6RIg9ZEWdaMxeJhUiSH V6OdN3HIC5 wDFfaR6ssUanqtfseW3nJb c+DAx9l9ikuMFyXF0ywSI1 DY52MR16qZQtj5R8kKZ0B2 BhZGRpbmct kazgyGZ0KLAkFGVplG42De 1shOzyKx8tGJEpWOV2VWDm xTIdO7CqeG1tLzVzDJJuYE HpN5CiwYBt CTpuI106ASzhBkD3OGAmgg ReX8UqMAFdwEmaHdL2o0D1 Qa2QWX62TQ90VQ54uRClj3 B6iPT6P5Kj AVAogasyyqxliOE3LBNfFE PfpT00Qy9fwOywUw7pPPWa GVJ3WVAvwSAdB1LncM9rHm AjMDAwMDAw A6VvyEEhBAqzK556XOoxWq P9CUJttoGrT5JtTNYihDlt ChJ8r2Q1Zu5PMe31HM80YU 70aUIjx4E4 aTS6R2MjOLPmvrxfjwvlqM P2NWQrGEGnhJ98Oh0yuDkf Hr8yTLCmADU4EIRtiBRdZ6 SagF5lPhIo EMSlWOJiX1ZkdLWnGTmjP5 13OBdnOaS5TGBbnqRpE6Uk LLVwcSkiQoT9h9H0Qj0AAW cbtxn4E6Ff PjwvdHI+ZU15VYCyMB74iP SfoEZzp2cozOf0EpHhAZAj JAZ6xMkvXVerd7ZaJFMzX8 5unCYpr5K1 IGNv (more content not included)... Normal [facility] Auto Diffon 02-24-2022 Basophils/100 WBC (Bld) 4.4 % High 0.0-2.[address] [facility] Comment on above: Order Comment: Order Added by Discern Expert. Performed By: #### 1 [id number], 3651303, 27801307, 5667242, 9080797 #### [facility] [address] [place] [address] Basophils/Leukocytes Auto (Bld) [Pure # fraction] 0.3 E9/L High 0.0-0.[address] [facility] Comment on above: Order Comment: Order Added by Discern Expert. Performed By: #### 1 [id number], 2956364, 15461965, 3812887, 6829502 #### [facility] [address] [place] [address] Eosinophils/100 WBC (Bld) 3.8 % Normal 0.0-8.[address] [facility] Comment on above: Order Comment: Order Added by Discern Expert. Performed By: #### 1 [id number], 2608686, 40177452, 3167460, 8088082 #### [facility] [address] [place] [address] Eosinophils/Leukocyte s Auto (Bld) [Pure # fraction] 0.3 E9/L Normal 0.0-0.[address] [facility] Comment on above: Order Comment: Order Added by Discern Expert. Performed By: #### 1 [id number], 1878175, 42102797, 8554797, 5996947 #### [facility] [address] [place] [address] Lymphocytes/100 WBC (Bld) 31.3 % Normal 14.0-50.[address] [facility] Comment on above: Order Comment: Order Added by Discern Expert. Performed By: #### 1 9255621, 0444575, 97963893, 3457823, 3305285 #### [facility] [address] [place] [address] Lymphocytes/Leukocyte s Auto (Bld) [Pure # fraction] 2.3 E9/L Normal 1.0-4.[address] [facility] Comment on above: Order Comment: Order Added by Discern Expert. Performed By: #### 1 0923177, 8912436, 84726846, 5874988, 4736127 #### [facility] [address] [place] [address] Monocytes/100 WBC (Bld) 12.8 % Normal 4.0-14.[address] [facility] Comment on above: Order Comment: Order Added by Discern Expert. Performed By: #### 1 [id number], 0287388, 65327178, 2956418, 3702304 #### [facility] [address] [place] [address] Monocytes/Leukocytes Auto (Bld) [Pure # fraction] 0.9 E9/L Normal 0.2-1.[address] [facility] Comment on above: Order Comment: Order Added by Discern Expert. Performed By: #### 1 5649813, 4344287, 05601219, 2121834, 7089182 #### [facility] [address] [place] [address] Neutrophils/100 WBC (Bld) 47.7 % Normal 36.0-75.[address] [facility] Comment on above: Order Comment: Order Added by Discern Expert. Performed By: #### 1 6273413, 8827879, 18507757, 0571382, 2472768 #### [facility] [address] [place] [address] Neutrophils/Leukocyte s Auto (Bld) [Pure # fraction] 3.5 E9/L Normal 2.0-7.[address] [facility] Comment on above: Order Comment: Order Added by Discern Expert. Performed By: #### 1 4802492, 9026448, 90658486, 5751734, 4862403 #### [facility] [address] [place] [address] BMPon 02-24-2022 Creatinine [Mass/Vol] 0.9 mg/dL Normal 0.5-1.3 [facility] Comment on above: Performed By: #### 1 3155341, 6757144, 06518483, 3640576, 7576242 #### [facility] [address] [place] [address] Urea nitrogen [Mass/Vol] 20 mg/dL Normal 5-[address] [facility] Comment on above: Performed By: #### 1 0823238, 3287435, 82804980, 6215267, 9092840 #### [facility] [address] [place] [address] Urea nitrogen/Creatinine [Mass ratio] 22 No Units High 10-[address] [facility] Comment on above: Performed By: #### 1 4089197, 5587600, 88247151, 7497432, 3323333 #### [facility] [address] [facility] [place] [address] Anion gap [Moles/Vol] 13 mmol/L Normal 6-16 [facility] Comment on above: Performed By: #### 1 0014997, 7986403, 49154174, 9888836, 2567590 #### [facility] [address] [facility] [place] [address] Calcium [Mass/Vol] 9.9 mg/dL Normal 8.9-11.[address] [facility] Comment on above: Performed By: #### 1 5852386, 6174231, 46572979, 1816991, 5774058 #### [facility] [address] [facility] [place] [address] Chloride [Moles/Vol] 104 mmol/L Normal 101-111 [facility] Comment on above: Performed By: #### 1 8075697, 2134334, 30121284, 4830311, 2149929 #### [facility] [address] [place] [address] CO2 [Moles/Vol] 24 mmol/L Normal 21-31 [facility] Comment on above: Performed By: #### 1 6022981, 3237023, 10893369, 4627803, 7366647 #### [facility] [address] [place] [address] Glucose [Mass/Vol] 136 mg/dL Normal 55-[address] [facility] Comment on above: Result Comment: If t his glucose result represents a fasting glucose, interpretation should refer to the following reference range: 55-99 mg/dL Performed By: #### 1 1815772, 8976056, 09320195, 5076637, 2562143 #### [facility] [address] [facility] [place] [address] Potassium [Moles/Vol] 3.7 mmol/L Normal 3.5-5.3 [facility] Comment on above: Performed By: #### 1 9030208, 9146759, 04662982, 8803543, 2786021 #### [facility] [address] [place] [address] Sodium [Moles/Vol] 137 mmol/L Normal 135-[address] [facility] Comment on above: Performed By: #### 1 3759212, 6283940, 62984834, 7460007, 7444878 #### [facility] [address] [place] [address] CBC w/ Auto Diffon Erythrocyte distribution width (RBC) [Ratio] 15.3 % High 10.9-14.[address] [facility] Comment on above: Performed By: #### 1 2066068, 1708108, 17042152, 3166832, 0472429 #### [facility] [address] [place] [address] Hematocrit (Bld) [Volume fraction] 43.0 % Normal 34.0-46.[address] [facility] Comment on above: Performed By: #### 1 9662296, 7593976, 73671450, 8523262, 1955610 #### [facility] [address] [place] [address] Hemoglobin (Bld) [Mass/Vol] 14.4 g/dL Normal 12.0-16.[address] [facility] Comment on above: Performed By: #### 1 8333649, 9694007, 62122462, 1964444, 8943356 #### [facility] [address] [place] [address] 39018 MCH (RBC) [Entitic mass] 31.0 pg Normal 27.0-34.[address] [facility] Comment on above: Performed By: #### 1 8958274, 6774371, 56696488, 1195648, 7249558 #### [facility] [address] [place] [address] MCHC (RBC) [Mass/Vol] 33.6 g/dL Normal 31.4-36.0 [facility] Comment on above: Performed By: #### 1 5880459, 6206396, 85007044, 2185125, 0818512 #### [facility] [address] [place] [address] MCV (RBC) [Entitic vol] 92.2 fL Normal 80.0-100.[address] [facility] Comment on above: Performed By: #### 1 9830615, 5306092, 17437881, 4339159, 1396349 #### [facility] [address] [place] [address] Platelet mean volume (Bld) [Entitic vol] 9.2 fL Normal 6.4-10.[address] [facility] Comment on above: Performed By: #### 1 3608151, 2787323, 67278963, 4234020, 0620797 #### [facility] [address] [place] [address]71 Platelets (Bld) [#/Vol] 137.0 E9/L Low 150.0-500.[address] [facility] Comment on above: Performed By: #### 1 0771778, 6595757, 30471117, 5348195, 4577931 #### [facility] [address] [place] [address] 61126 RBC (Bld) [#/Vol] 4.7 E12/L Normal 4.3-5.[address] [facility] Comment on above: Performed By: #### 1 4354714, 4377348, 83267077, 4539878, 6650670 #### [facility] [address] [place], [place] [address] WBC corrected for nucl RBC Auto (Bld) [#/Vol] 7.3 E9/L Normal 4.0-11.[address] [facility] Comment on above: Performed By: #### 1 8091962, 2135593, 67831134, 8376065, 3463797 #### [facility] [address] [place] [address] CHEMISTRYOrdered By: SYSTEM SYSTEM on 02-24-2022 Anion gap [Moles/Vol] 13 mmol/L Normal 6 - 16 mEq/L [facility] Calcium [Mass/Vol] 9.9 mg/dL Normal 8.9 - 11. 1 mg/dL [facility] Chloride [Moles/Vol] 104 mmol/L Normal 101 [...] 25.4 s Normal 25.1 - 36.5 second(s) [facility] Auto Coag INR Coag (PPP) [Relative time] 1.1 {INR} Invalid Interpretation Code FT Auto Coag PT Coag (PPP) [Time] 13.4 s High 10.2 - 12.9 second(s) [facility] Auto Coag CT Head or Brain w/o Contras virginie 02-24-2022 CT Head or Brain w/o Contrast [...] KHANH Technologist: EMELINA Normal [facility] Consent for Treatmenton 02-06 Consent for Treatment [id number] 0CD:[address] [facility] Discharge Instructionson Discharge Instructions [id number]:[address] [facility] ED Clinical Summaryon 2021 ED Clinical Summary [place] [id number] ED Clinical Summary Person Information Name: ZORAIDA GAYTAN/[facility] Age: 86 Years : 1935 Sex: Female Language: Citizen Of [place] PCP: AMELIA FREY MD Marital Status: Single [...] 02/24/2022 10:32:06 02/24/2022 10:32:06 02/24/2022 10:32:06 ADDRESS: [address] [place] [id number] PHYS DOC NOTES: MEDICAL INFORMATION: Prescriptions Given: PATIENT EDUCATION INFORMATION: Instructions: Hypertension, Adult Follow up: With: Address: When: AMELIA FREY [address] [place] [id number] Business (1) In 3 days 02/27/2022 Comments: [...] DIAGNOSIS: 1:Accelerated hypertension Normal [facility] ED Note-Physicianon 02-25-20 ED Note-Physician Basic Information Time Seen: Demond [place] M.D. 02/24/2022 08:14 Chief Complaint Pt had surgery on right eye this AM with [facility]. Pt reports her BP was elevated this AM before and after surgery. BP was over 200 at [facility]. Had a headache at the time, but [...] reported headache. 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 In the emergency room [...] FREY In 3 days 02/27/2022 EDT [address] [id number] (1) Additional Instructions: Increase Losartan to [...] content not included)... Normal [facility] Comment on above: Result Comment: Elec tronically Signed By: Norma Palacios, Demond H\.br\Date and Time Signed: 02/24/22 11:07 EDT ED [...] content not included)... Normal [facility] ED Patient Summaryon 022 ED Patient Summary [address] [address] Patient Discharge Instructions Person Information Name: ZORAIDA GAYTAN Age: 86 Years Arrival Date: 02/24/2022 08:11:05 Discharge Diagnosis: 1:Accelerated hypertension Primary Care Physician: AMELIA FREY MD Provider Information Primary Provider: Demond Green M.D. Advanced Route Deliverer:None The exam and treatment you received in the Emergency Department were for an urgent problem and are not intended as complete care. It is important that you follow up with a doctor, nurse practitioner, or physician?s assistant [employer] content [employer] delivery for ongoing care. If your symptoms become worse or you do not improve as expected and you are unable to reach your usual health care provider, you should return to the Emergency Department. We are available 24 hours a day. ZORAIDA GAYTAN has been given the following list of patient education materials, prescriptions and follow-up instructions: Follow-up Instructions: With: Address: When: AMELIA FREY [address] [place], [place] [id number] [email or web address] In 3 days 02/27/2022 Comments: Increase Losartan [...] opioids can be used to help relieve [id number] pain and are often prescribed following a [...] content not included)... Normal [facility] HEMATOLOGYOrdered By: SYSTEM SYSTEM on 02-24-2022 Basophils/100 [...] 31.0 pg Normal 27.0 - 34.0 pg FT HemeAutoSS MCHC (RBC) [Mass/Vol] 33.6 g/dL Normal 31.4 - 36.0 gm/dL [facility] HemeAutoSS MCV (RBC) [Entitic vol] 92.2 fL Normal 80.0 - 100.0 fL [facility] HemeAutoSS Platelet mean volume (Bld) [Entitic vol] 9.2 fL Normal 6.4 - 10.8 fL FT HemeAutoSS Platelets (Bld) [#/Vol] 137.0 E9/L Low 150.0 - 500.0 E9/L [facility] HemeAutoSS RBC (Bld) [#/Vol] 4.7 E12/L Normal 4.3 - 5.9 E12/L FT HemeAutoSS WBC corrected for nucl RBC Auto (Bld) [#/Vol] 7.3 E9/L Normal 4.0 - 11.0 E9/L FT HemeAutoSS PT & PTTon 02-24-2022 INR Coag (PPP) [Relative time] 1.1 {INR} Invalid Interpretation Code [facility] Comment on above: Result Comment: INR results are specifically intended to assess patients stabilized on long-term Anticoagulation therapy suggested INR?s ?Less Intensive Anticoagulation? 2.0 ? 3.0 Conventional Range 3.0 ? 4.5 Performed By: #### 1 [id number], [id number], [id number] #### [facility] [address] [place] [address] PT Coag (PPP) [Time] 13.4 second(s) High 10.2-12.[address] [facility] Comment on above: Performed By: #### 1 [id number] #### [facility] [address] [place] [address] aPTT Coag (PPP) [Time] 25.4 second(s) Normal 25.1-36.[address] [facility] Comment on above: Result Comment: Hepa rin therapeutic range (represented by Anti-Factor Xa activity of 0.2 - 0.4 U/mL) corresponds to PTT of 56.6 - 109.0 sec. Performed By: #### 1 [id number] #### [facility] [address] [place] [address] Troponin 0 Hr.on 02-24-2022 Troponin I.cardiac [Mass/Vol] 8.10 pg/mL Low 10.10-27.[address] [facility] Comment on above: Result Comment: The 95% CI (Confidence Interval) PPV (Positive Predictive Value) for myocardial infarction in females is 38 pg/mL, in males 51 pg/mL. The results should be used in conjunction with clinical conditions of myocardial infarction. (Access High Sensitivity Troponin I Instructions For Use, [employer], May 2018) Performed By: #### 1 [id number], [id number], [id number], [id number] #### [facility] [address] [place] [address] XR Chest Single Viewon 02-24 XR Chest [...] Tyler M.D., DISAGREE Normal [facility] Vital Signs Date Time Vital Sign Value Performing Clinician Facility 11-18-2024 13:05-0500 Body height 157.48 cm [facility] 11-18-2024 13:05-0500 Body mass index (BMI) [Ratio] 24 kg/m2 [facility] 11-18-2024 13:05-0500 Body weight 59.56 kg [facility] 11-18-2024 13:05-0500 Diastolic blood pressure 83 mm[Hg] [facility] 11-18-2024 13:05-0500 Heart rate 65 /min [facility] 11-18-2024 13:05-0500 Systolic blood pressure 176 mm[Hg] [facility] 07-09-2024 14:24-0400 Body height 157.48 cm [facility] 07-09-2024 14:24-0400 Body mass index (BMI) [Ratio] 24.3 kg/m2 [facility] 07-09-2024 14:24-0400 Body weight 60.46 kg [facility] 07-09-2024 14:24-0400 Diastolic blood pressure 98 mm[Hg] [facility] 07-09-2024 14:24-0400 Heart rate 57 /min [facility] 07-09-2024 14:24-0400 Systolic blood pressure 212 mm[Hg] [facility] 05-07-2024 13:44-0400 Body height 157.48 cm [facility] 05-07-2024 13:44-0400 Body mass index (BMI) [Ratio] 23.8 kg/m2 [facility] 05-07-2024 13:44-0400 Body weight 58.96 kg [facility] 05-07-2024 13:44-0400 Diastolic blood pressure 69 mm[Hg] [facility] 05-07-2024 13:44-0400 Heart rate 61 /min [facility] 05-07-2024 13:44-0400 Systolic blood pressure 189 mm[Hg] [facility] 01-08-2024 11:43-0400 Body height 157.48 cm [facility] 01-08-2024 11:43-0400 Body mass index (BMI) [Ratio] 22.8 kg/m2 [facility] 01-08-2024 11:43-0400 Body weight 56.84 kg [facility] 01-08-2024 11:43-0400 Diastolic blood pressure 72 mm[Hg] [facility] 01-08-2024 11:43-0400 Heart rate 61 /min [facility] 01-08-2024 11:43-0400 Systolic blood pressure 179 mm[Hg] [facility] 06-08-2023 14:30-0400 Body height 157.48 cm Amelia Frey Other [facility] Other 06-08-2023 14:30-0400 Body mass index (BMI) [Ratio] 23.13 kg/m2 Amelia Frey Other [facility] Other 06-08-2023 14:30-0400 Body weight 57.38 kg Amelia Frey Other [facility] Other 06-08-2023 14:30-0400 Diastolic blood pressure 77 mm[Hg] Amelia Frey Other [facility] Other 06-08-2023 14:30-0400 Respiratory rate 16 /min Amelia Frey Other [facility] Other 06-08-2023 14:30-0400 Systolic blood pressure 187 mm[Hg] Amelia Frey Other [facility] Other 12-20-2022 15:20-0400 Body height 157.48 cm Mir Vrachaaicha Huaat Other [facility] Other 12-20-2022 15:20-0400 Body mass index (BMI) [Ratio] 23.08 kg/m2 [employer] Other [facility] Other 12-20-2022 15:20-0400 Body temperature 97 [degF] Rox Watson Other [facility] Other 12-20-2022 15:20-0400 Body weight 57.24 kg Rox Toneys Other [facility] Other 12-20-2022 15:20-0400 Diastolic blood pressure 85 mm[Hg] Rox Toneys Other [facility] Other 12-20-2022 15:20-0400 Respiratory rate 16 /min Rox Toneys Other [facility] Other 12-20-2022 15:20-0400 SaO2% (BldA) [Mass fraction] 100 % Rox Watson Other [facility] Other 12-20-2022 15:20-0400 Systolic blood pressure 170 mm[Hg] Rox Toneys Other [facility] Other 02-24-2022 10:12-0400 Diastolic blood pressure 80 mm[Hg] [facility] 02-24-2022 10:12-0400 Heart rate 68 /min [facility] 02-24-2022 10:12-0400 Respiratory rate 15 /min [facility] 02-24-2022 10:12-0400 SaO2% (BldA) [Mass fraction] 98 % [facility] 02-24-2022 10:12-0400 Systolic blood pressure 190 mm[Hg] [facility] 02-24-2022 09:24-0400 Diastolic blood pressure 88 mm[Hg] [facility] 02-24-2022 09:24-0400 Heart rate 66 /min [facility] 02-24-2022 09:24-0400 Respiratory rate 16 /min [facility] 02-24-2022 09:24-0400 SaO2% (BldA) [Mass fraction] 99 % [facility] 02-24-2022 09:24-0400 Systolic blood pressure 190 mm[Hg] [facility] 02-24-2022 08:50-0400 Diastolic blood pressure 100 mm[Hg] [facility] 02-24-2022 08:50-0400 Systolic blood pressure 220 mm[Hg] [facility] 02-24-2022 08:14-0400 Body temperature 98.24 [degF] [facility] 02-24-2022 08:14-0400 Heart rate 74 /min [facility] 02-24-2022 08:14-0400 Respiratory rate 18 /min [facility] 02-24-2022 08:14-0400 SaO2% (BldA) [Mass fraction] 99 % [facility] Encounters Encounter Date Encounter Type Care Provider Facility Start: 11-28-2024 End: 11-28-2024 ambulatory [facility] Start: 11-18-2024 End: 11-18-[address] [facility] Work Phone: Start: 11-18-2024 End: 11-18-2024 Patient encounter procedure [facility] Work Phone: Start: 07-09-2024 End: 07-09-[address] [facility] Work Phone: Start: 07-09-2024 End: 07-09-2024 Patient encounter procedure [facility] Work Phone: Start: 06-28-2024 End: 06-28-2024 ambulatory [facility] Start: 05-15-2024 Non-patient / Non-visit [facility] Work Phone: Start: 05-11-2024 Non-patient / Non-visit [facility] Work Phone: Start: 05-10-2024 Non-patient / Non-visit [facility] Work Phone: Start: 05-07-2024 End: 05-07-[address] [facility] Work Phone: Start: 05-07-2024 End: 05-07-2024 Patient encounter procedure [facility] Work Phone: Start: 05-01-2024 End: 05-01-2024 ambulatory [facility] Start: 04-25-2024 Non-patient / Non-visit [facility] Work Phone: Start: 03-28-2024 End: 03-28-2024 ambulatory [facility] Start: 01-08-2024 End: 01-08-2024 ambulatory [facility] Start: 01-08-2024 End: 01-08-[address] [facility] Work Phone: Start: 01-08-2024 End: 01-08-2024 Patient encounter procedure [facility] Work Phone: Start: 12-28-2023 Non-patient / Non-visit [facility] Work Phone: Start: 06-08-2023 End: 06-08-2023 ambulatory [address] Frey Other [facility] Other Start: 06-08-2023 Office outpatient visit 15 minutes Amelia Frey [facility] Start: 05-25-2023 End: 05-25-2023 ambulatory Amelia Frey Other [facility] Other Start: 05-25-2023 Telephone encounter Amelia Frey [facility] Start: 04-25-2023 End: 04-25-2023 ambulatory Amelia Frey Other [facility] Other Start: 04-25-2023 Telephone encounter Amelia Frey [facility] Start: 03-23-2023 End: 03-23-2023 ambulatory Amelia Frey Other [facility] Other Start: 03-23-2023 Telephone encounter Amelia Frey [facility] Start: 02-20-2023 End: 02-20-2023 ambulatory Amelia Frey Other [facility] Other Start: 02-20-2023 Telephone encounter Amelia Frey [facility] Start: 01-17-2023 End: 01-17-2023 ambulatory Amelia Frey Other [facility] Other Start: 01-17-2023 Telephone encounter Amelia Frey [facility] Start: 12-20-2022 End: 12-20-2022 ambulatory Rox Watson Other [facility] Other Start: 12-20-2022 [facility] visit new patient Rox Watson [facility] Start: 12-19-2022 End: 12-19-2022 ambulatory Amelia Frey Other [facility] Other Start: 12-19-2022 Telephone encounter Amelia Frey [facility] Start: 12-10-2022 End: 12-11-2022 ambulatory AALIYAH POOLE Facility:[facility] Start: 11-15-2022 End: 11-15-[address] GEORGIE WELLER Facility:[facility] Start: 10-09-2022 End: 10-09-[address] RAMIRO WILEY . Facility:[facility] Start: 09-30-2022 End: 10-01-2022 ambulatory FABIÁN HARRINGTON Facility:[facility] Start: 09-26-2022 End: 09-26-[address] HARJINDER RAMIREZ Facility:[facility] Start: 09-21-2022 End: 09-22-[address] AMELIA FREY Facility:[facility] Start: 09-18-2022 End: 09-18-[address] GEORGIE WELLER Facility:[facility] Start: 09-11-2022 End: 09-11-[address] RAMIRO WILEY . Facility:[facility] Start: 09-03-2022 End: 09-04-2022 ambulatory FABIÁN [...] 02-24-2022 Emergency department patient visit [facility] Procedures Date Procedure Procedure Detail Performing Clinician Start: 01-08-2024 Follow-up visit Follow-up HERMELINDA HUGO Plan of Treatment Date Care Activity Detail Author [facility] Payers Date Payer Category Payer Self-pay 1959 Unknown [id number] 1935 Unknown [id number] 2.16.84 [id number] 1935 Unknown [id number] 2.16.84 [id number] 1935 Unknown [id number] 2.16.84 0.1.090860.3.579.2.593 1935 Unknown [id number] 2.16.84 0.1.599730.3.579.2.593 1935 Unknown [id number] 2.16.84 0.1.139998.3.579.2.593 1935 Unknown [id number] 2.16.84 0.1.028072.3.579.2.593 1935 Unknown [id number] 2.16.84 0.1.994817.3.579.2.593 1935 Unknown [id number] 2.16.84 0.1.366357.3.579.2.593 1935 Unknown [id number] 2.16.84 0.1.886201.3.579.2.593 1935 Unknown [id number] 2.16.84 0.1.752807.3.579.2.593 1935 Unknown [id number] 2.16.84 0.1.510897.3.579.2.593 1935 Unknown [id number] 2.16.84 0.1.264639.3.579.2.593 1935 Unknown [id number] 2.16.84 0.1.844347.3.579.2.593 1935 Unknown [id number] 2.16.84 0.1.918982.3.579.2.593 1935 Unknown [id number] 2.16.84 0.1.142149.3.579.2.593 1935 Unknown [id number] 2.16.84 0.1.852546.3.579.2.593 1935 Unknown [id number] 2.16.84 0.1.750198.3.579.2.593 1935 Unknown [id number] 2.16.84 0.1.528048.3.579.2.593 1935 Unknown [id number] 2.16.84 0.1.647190.3.579.2.593 Medicare [id number] 2. [id number] Unknown [id number] Social History Date Type Detail Facility Tobacco smoking status Unknown i f ever smoked [facility] Sex Assigned At Female [facility] Start: 1935 Sex Assigned At [facility] Work Phone: Start: 11-18-2024 Sex Female (finding) [facility] Clinical Notes 02-24-2022 to 11-28-2024 Note Date & Type Note Facility 11-28-2024 Note [place] [facility] - [facility] Subjective Delesintia Gaytan is a 89 y.o. year old female patient being seen for concerns of LE edema. Per patient, Dr. Frey started her on hydrochlorothiazide 25mg daily but she did not start it due to possible side effects. She stopped taking spironolactone because she didn't feel well on it. Denies chest pain, SOB, and palpitations. She was seen in the ED in Jul 2024 for hypertension. Patient Active Problem List Diagnosis Hypertensive disorder Edema, lower extremity Diastolic dysfunction Hypotension due to drugs Asymptomatic bradycardia Chronic kidney disease, stage 3b (CMS/HCC) Elevated glucose Hypertensive nephropathy Other insomnia Syncope Tobacco dependence syndrome Weight gain, abnormal Family History Problem Relation Name Age of Onset Hypertension Mother Social History Tobacco Use Smoking status: Every Day Current packs/day: 1.00 Types: Cigarettes Smokeless tobacco: Never Substance Use Topics Alcohol use: Yes Comment: occasional HPI this is an 89-year-old woman who is seen in follow-up on resistant hypertension. She is followed on a regular basis in our clinic. Her blood pressure medications have been adjusted several times between our office and her PCPs office. On 08/07/2024 she presented to the emergency room at the [facility] with elevated blood pressure reading. Blood pressure was 180/78 and her heart rate was 65. ECG was unremarkable as well as her blood testing. Chest x-ray was unremarkable. She was given intravenous hydralazine and Vasotec. She was discharged from the emergency room. She has had several similar visits to the emergency room for elevated blood pressure. Today she reports that she has been doing reasonably well. She denies chest pain, shortness of breath, palpitations. She has no dizziness or lightheadedness. She complains of lower extremity edema. She was prescribed hydrochlorothiazide 25 mg daily by her PCP but she did not take it due to fear of side effects. She reports that when her blood pressure is significantly elevated she feels it in her head. Review of Systems Cardiovascular: Positive for leg swelling. All other systems reviewed and are negative. Objective Visit Vitals BP (!) 200/90 (BP Location: Left arm, Patient Position: Sitting) Pulse 58 Ht 1.575 m (5' 2 ) Wt 60.3 kg (133 lb) SpO2 97% BMI 24.33 kg/m??? Smoking Status Every Day BSA 1.62 m??? Physical Exam Constitutional: Appearance: She is well-developed. She is not ill-appearing. HENT: Head: Normocephalic and atraumatic. Nose: Nose normal. Eyes: General: No scleral icterus. Pupils: Pupils are equal, round, and reactive to light. Neck: Thyroid: No thyromegaly. Vascular: No JVD. Cardiovascular: Rate and Rhythm: Normal rate and regular rhythm. Pulses: Radial pulses are 2+ on the right side and 2+ on the left side. Heart sounds: Normal heart sounds. No murmur heard. No friction rub. No gallop. Pulmonary: Effort: Pulmonary effort is normal. No respiratory distress. Breath sounds: Normal breath sounds. No wheezing or rales. Chest: Chest wall: No tenderness. Abdominal: General: Bowel sounds are normal. There is no distension. Palpations: Abdomen is soft. Tenderness: There is no abdominal tenderness. Musculoskeletal: General: No swelling. Cervical back: Neck supple. Right lower le+ Pitting Edema present. Left lower le+ Pitting Edema present. Skin: General: Skin is warm and dry. Neurological: General: No focal deficit present. Mental Status: She is alert and oriented to person, place, and time. Psychiatric: Mood and Affect: Mood normal. Behavior: Behavior is cooperative. Judgment: Judgment normal. Allergies Allergies Allergen Reactions Spironolactone Other Sulfa (Sulfonamide Antibiotics) Medications Current Outpatient Medications: carvedilol (Coreg) 25 mg tablet, Take 1 tablet (25 mg) by mouth with breakfast and with evening meal., Disp: 180 tablet, Rfl: 3 cloNIDine (Catapres) 0.2 mg tablet, Take 1 tablet (0.2 mg) by mouth in the morning and at bedtime., Disp: 180 tablet, Rfl: 3 losartan (Cozaar) 50 mg tablet, Take 1 tablet (50 mg) by mouth two times daily., Disp: 180 tablet, Rfl: 3 hydrALAZINE (Apresoline) 100 mg tablet, Take 1 tablet (100 mg) by mouth three times daily., Disp: 270 tablet, Rfl: 3 hydroCHLOROthiazide (HYDRODiuril) 25 mg tablet, Take 0.5 tablet by mouth every day., Disp: 45 tablet, Rfl: 3 levothyroxine (Synthroid, Levoxyl) 50 mcg tablet, Take 50 mcg by mouth in the morning., Disp: , Rfl: spironolactone (Aldactone) 25 mg tablet, Take 1 tablet (25 mg) by mouth in the morning. (Patient not taking: Reported on 11/28/2024), Disp: 90 tablet, Rfl: 3 Recent Labs Blood testing 08/07/2024: Hemoglobin 14.2, platelets 134, potassium 4.2, BUN 20, creatinine 1.11, EGFR 46, LFTs normal, troponin high-sensitivity 8.8, (more content not included)... [facility] 06-28-2024 Note Per assessment heart rates in the 50s No concerning symptoms at this time We will continue to monitor Discussed with patient to call office for any lightheadedness, dizziness, passing out she voiced understanding [facility] 06-28-2024 Note Hypertension is stab le for her blood pressure log is very well-controlled in office is always elevated most likely related to whitecoat syndrome Continue medicines as prescribed including carvedilol, clonidine, hydralazine, losartan, spironolactone Renal function stable [facility] 06-28-2024 Note stable [facility] 06-28-2024 Note Pt is here for three month follow up. Pt denies sob, chest pain, palpatations. Pt says one of her medications makes her dizzy but she does not know which one. Review of Systems Constitutional: Positive for diaphoresis (1 episode). Neurological: Positive for excessive daytime sleepiness (intermittent). All other systems reviewed and are negative. [facility] 06-28-2024 Note [facility] CARDIOLOGY PROGR ESS NOTE HPI: Zoraida Gaytan is a 88 y.o. female here for [...] voiced understanding RTC 6 months [facility] 05-01-2024 Note Hypertension is quit e [...] function and Vitamin B levels. [facility] 05-01-2024 Note Currently stable [facility] 05-01-2024 Note Pt reports having no gely heart rate 49-50's, and denied any significant symptoms associated. Will continue to monitor and D/W pt to call office for lightheadedness, dizziness, near syncope or syncope and she voiced understanding [facility] 05-01-2024 Note [facility] CARDIOLOGY PROGR ESS NOTE HPI: Zoraida Gaytan is a 88 y.o. female here for hospital F/U HPI 88 yo female presents today for hospital F/U after recent evaluation for bradycardia Patient here for follow up [facility] ED. Says she went shopping with [...] and are negative ED note- Patient: ZORAIDA GAYTAN MR#: [id number] : 1935 Acct:[id number] Age/Sex: 88 / F ADM Date: 04/25/24 [...] P (more content not included)... [facility] 05-01-2024 Note Patient here for fol [facility]. Says she went shopping with a [...] systems reviewed and are negative. [facility] 03-28-2024 Note Stable Continue aldactone, fluid restriction and low sodium diet Continue regular exercise and activity [facility] 03-28-2024 Note Well controlled with aldactone currently no edema [facility] 03-28-2024 Note Hypertension is unch anged. Dietary sodium restriction. Continue current medications. Blood pressure will be reassessed in 3 months. [facility] 03-28-2024 Note Patient here for 2 m o follow up hypertension and diastolic dysfunction. She had routine labs in January 2024. She denies chest pain, SOB, palpitations, and syncope. Sometimes gets lightheaded upon standing up. Review of Systems Neurological: Positive for excessive daytime sleepiness and light-headedness. All other systems reviewed and are negative. [facility] 03-28-2024 Note [facility] CARDIOLOGY PROGR ESS NOTE HPI: Zoraida Gaytan is a 88 y.o. female here for [...] evening/bedtime meds, she voiced understanding [facility] 01-08-2024 Note [facility] CARDIOLOGY PROGR ESS NOTE HPI: Zoraida Gaytan is a 88 y.o. female here for [...] cardiology clinic Hermelinda Hugo MD [facility] 06-08-2023 Evaluation note Encounter Date Diagnosis Assessment Notes May, Other insomnia (ICD-10 - G47.09) Pt states the ativan does help her insomnia and bp. Denies over-sedation symptoms. 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 Recommend taking meds daily and keeping record and discussing bps w her provider there. [facility] Other 03-14-2023 Evaluation note* Encounter Date Diagnosis [...] pressure monitor reveals significantly better blood pressure [facility] Other [id number] Evaluation + Plan noteExtracted from: Title:ED Note [...] Troponin 9 Hr. XR Chest Single View [facility]05-19-2022 Hospital Discharge instructions Patient Education 02/24/2022 [...] care provider. This is important. Medicines Take [id number] and prescription medicines only as told by [...] 09/25/2006 Document Revised: 06/05/2019 Document Reviewed: 06/05/2019 [employer] Patient Education 2020 [employer] Follow Up Care 02/24/2022 08:13:52 With:AMELIA FREY Address: [address] [place] [phone] (1) When:02/27/2022 10:23:00 Comments:Increase Losartan to 100 mg a day. Continue Metoprolol 50 mg a day. Make sure to take your blood pressure twice a day and follow-up with Dr. Frey tomorrow at 1 PM at her office. Return to the emergency room if your headache recurs, chest pain, dizziness or any new symptoms. [facility] noteNo InformationNort Friend Traveler Other Evaluation noteNo assessment information available [facility] Work Phone: Evaluation note* Diagnosis Onset Date Resolution Status Chronic kidney disease, stage 3b acute Resistant hypertension acute Weight gain, abnormal acute [facility] Work Phone: History general Narrative - Reported* Type Description Date Medical History HYPERTENSION Medical History RENAL IMPAIRMENT Medical History TOBACCO DEPENDENCE SYNDROME Surgical History TUBAL LIGATION Surgical History CHOLECYSTECTOMY Hospitalization History SEE ABOVE [place] [employer] Other Hospital course Narrative No data available for this section [facility] Summary Purpose Family History No Family History Records Found Relationship Condition Age at Onset Recorded Date/T deniz father Unknown family member Unknown Not Specified Hypertension Unknown Unknown sister Hypertension Unknown Relationship Condition Age at Onset Recorded Date/T deniz father Unknown family member Unknown mother Hypertension Unknown Unknown sister Hypertension Unknown Advance Directives No Advanced Directives Records Found Advance Directive Response Recorded Date/ Time Advance Directives No January 02 11:20am Advance Directive Response Recorded Date/ Time Advance Directives No January 02 10:20am Chief Complaint and Reason for Visit Chief Complaint BP Chief Complaint concerns about weigh t Reason for Visit Chronic kidney disea se, stage 3b Resistant hypertension Weight gain, abnormal Chief Complaint concerns about weigh t medication dicussion Reason for Visit Chronic kidney disea se, stage 3b Resistant hypertension Weight gain, abnormal Chief Complaint Admit Date 3 month f/u November 18, 2024 1:01pm Additional Source Comments INFORMATION SOURCE (unrecogn ized section and content) DATE CREATED AUTHOR 03/05/2022 [facility] DATE CREATED AUTHOR AUTHOR'S ORGANIZ ATION 12/13/2022 [facility] DATE CREATED AUTHOR AUTHOR'S ORGANIZ ATION 11/30/[address] [facility] REASON FOR VISIT (unrecogniz ed section and content) refillRENAL IMPAIRMENTNo Inf ormationNo InformationNo InformationrefillRefillRefillrefillfollow up Care Teams (unrecognized sec tion and content) Team Status: Active Member Role Status Dates Amelia Frey MD Primary Care Provider Active Team Status: Inactive Member Role Status Kenji Frey MD Primary Care Provide r, Attending Provider Active Start: November 18, 2024 End: November 18, 2024 Team Status: Active Member Role Status Kenji Blakely Jr, MD Primary Care Provider Active Start: December 28, 2023 Amelia Frey MD Attending Provider Active St art: December 28, 2023 Team Status: Inactive Member Role Status Kenji Frey MD Primary Care Provide r, Attending Provider Active Start: January 08, 2024 End: January 08, 2024 Team Status: Active Member Role Status Kenji Frey MD Primary Care Provider Active Start: April 25, 2024 Tammy Hayes PA-C Attending Provider Active Start: April 25, 2024 Team Status: Inactive Member Role Status Kenji Frey MD Primary Care Provide r, Attending Provider Active Start: May 07, 2024 End: May 07, 2024 Team Status: Active Member Role Status Kenji Frey MD Primary Care Provide r, Attending Provider Active Start: May 10, 2024 Team Status: Active Member Role Status Kenji Frey MD Primary Care Provider Active Start: May 11, 2024 Andrés Rubio DO Attending Provider Active Sta rt: May 11, 2024 Team Status: Active Member Role Status Kenji Frey MD Primary Care Provide r, Attending Provider Active Start: May 15, 2024 Team Status: Inactive Member Role Status Kenji Frey MD Primary Care Provide r, Attending [...] BE BASED ON THE PRIMARY CLINICAL RECORDS. [facility] [facility]. provides no warranty or guarantee of the accuracy or completeness of information in this document.
--- NOTE | 2024-12-22 20:32 | PC.NURSE ---
this patient voices concerns of her high blood pressure today, and voices no other concerns and shows no signs of distress
--- NOTE | 2024-12-22 20:35 | ECG_ITS ---
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 Measurements Intervals [place] Rate: 58 P: 60 SD: 194 QRS: 53 QRSD: 98 T: 22 QT: 428 QTc: 426 Interpretive Statements 1100 Sinus rhythm 4664 Twave abnormality, possible inferior ischemia 9150 abnormal ECG Compared to ECG 08/07/2024 18:31:22 Possible ischemia now present Electronically Signed On 12-23-2024 5:17:09 EDT by EDVIN GRUBBS M.D.
--- NOTE | 2024-12-22 20:38 | ED.GENADUL1 ---
HPI HPI - General Adult General Chief complaint: Recheck/Abnormal Lab/Rx Stated complaint: IRREGULAR BP Time Seen by Provider: 12/22/24 20:18 Source: patient Mode of arrival: walk-in Limitations: no limitations History of Present Illness HPI narrative: 89-year-old female presents here with a chief complaint of elevated blood pressure. Patient's been here in the past for similar complaints. She states today she knew her blood pressure was elevated because she had coolness to her hands and feet. She is very tearful and anxious. She has a history of anxiety but states she does not like taking her anxiety medications. She denies any chest pain blurred vision or headaches here today. She is just tearful and states she is tired of feeling like this . Patient has a log of her blood pressures. Today shows mildly elevated blood sugar pressures at home. The last several days have all been within normal limits. Denies any new stressors at home. Related Data Home Medications ?Medication ?Instructions ?Recorded ?Confirmed carvedilol 25 mg tablet 25 mg PO BID 12/28/23 12/22/24 clonidine HCl 0.2 mg tablet 0.2 mg PO Q12H 12/28/23 12/22/24 hydralazine 50 mg tablet 100 mg PO Q8H 12/28/23 12/22/24 lorazepam 0.5 mg tablet 0.5 mg PO Q12H PRN anxiety 12/28/23 05/10/24 losartan 100 mg tablet 100 mg PO DAILY 12/28/23 12/22/24 spironolactone 25 mg tablet 25 mg PO DAILY 12/28/23 12/22/24 Allergies Allergy/AdvReac Type Severity Reaction Status Date / Time Sulfa (Sulfonamide AdvReac Mild rash Verified 12/22/24 20:22 Antibiotics) Opioid HPI Opioid Management Most Recent Opioid Data: No Data to Display Review of Systems ROS Status of ROS 10 or more systems reviewed and unremarkable except as noted in history and below PFSH PFSH Social History Little interest or pleasure in doing things: not at all Feeling down, depressed, or hopeless: not at all Exam Narrative Exam Narrative: All Systems are negative except as noted/marked.All systems reviewed and otherwise negative Nurses note and vital signs reviewed and patient is not hypoxic. General: The patient appears well and in no apparent distress. Patient is resting comfortably on cart. Skin: Warm, dry, no pallor noted. There is no rash noted. Head: Normocephalic, atraumatic Eye: Normal conjunctiva, no drainage, EOMI. PERRL Ears, Nose, Mouth, and Throat: oral mucosa is moist. Nares patent. Mouth without vesicles. Ear canals patent. Tm's without Erythema Cardiovascular: Regular Rate and Rhythm Respiratory: Patient is in no distress, no accessory muscle use, lungs are clear to auscultation, no wheezing, rales or rhonchi Back: non-tender, no CVA tenderness bilaterally to percussion. GI: Normal bowel sounds, no tenderness to palpation, no masses appreciated. No rebound, guarding, or rigidity noted. Musculoskeletal: The patient has no evidence of calf tenderness, no pitting edema, symmetrical pulses noted bilaterally Neurological: A&O x4, normal speech Psychiatric: Cooperative Constitutional Vital Signs, click to edit/add: Last Vital Signs Temp 97.6 F 12/22/24 20:10 Pulse 54 L 12/22/24 21:20 Resp 25 H 12/22/24 21:20 BP 174/84 H 12/22/24 21:34 Pulse Ox 97 12/22/24 21:20 O2 Del Method Room Air 12/22/24 20:10 Course Vital Signs Vital signs: Vital Signs Temperature 97.6 F 12/22/24 20:10 Pulse Rate 63 12/22/24 20:10 Respiratory Rate 20 12/22/24 20:10 Blood Pressure 198/80 H 12/22/24 20:10 Pulse Oximetry 97 12/22/24 20:10 Oxygen Delivery Method Room Air 12/22/24 20:10 Temperature 97.6 F 12/22/24 20:10 Pulse Rate 54 L 12/22/24 21:20 Respiratory Rate 25 H 12/22/24 21:20 Blood Pressure 174/84 H 12/22/24 21:34 Pulse Oximetry 97 12/22/24 21:20 Oxygen Delivery Method Room Air 12/22/24 20:10 Medical Decision Making MDM Narrative Medical decision making narrative: 89-year-old female presents here with a chief complaint of elevated blood pressure. Patient's been here in the past for similar complaints. She states today she knew her blood pressure was elevated because she had coolness to her hands and feet. She is very tearful and anxious. She has a history of anxiety but states she does not like taking her anxiety medications. She denies any chest pain blurred vision or headaches here today. She is just tearful and states she is tired of feeling like this . Patient has a log of her blood pressures. Today shows mildly elevated blood sugar pressures at home. The last several days have all been within normal limits. Denies any new stressors at home. Patient presented here with a chief complaint of hypertension. Patient history of hypertension. She takes her blood pressures multiple times at home. She presented here today anxious. Patient was medicated here with 0.5 mg Ativan and a small dose of hydralazine. Patient's blood pressure did improve. Patient does feel much better at this time. She does admit she was stressed prior to coming here to the emergency room. EKG was within normal limits. Patient denied blurred vision double vision or chest pain. Patient is going to go home and take her medications as prescribed. Patient is instructed to follow-up with her primary care physician and client services specialist to discuss any medication changes that she feels necessary. Differential Diagnosis Differential Diagnosis: stress, anxiety, hypertension Medical Records Medical records reviewed: Yes I reviewed the patient's medical records Lab Data Lab results reviewed: Yes I reviewed the patient's lab results ECG Data Interpretation: 2043 normal sinus rhythm with a rate of 58 bpm OH interval her 94 ms QRS duration 98 ms similar EKG compared to 08/07/2024 , no STEMI Discharge Plan Discharge Chief Complaint: Recheck/Abnormal Lab/Rx Clinical Impression: Hypertension Patient Disposition: Home, Self-Care Time of Disposition Decision: 21:44 Condition: Good Prescriptions / Home Meds: No Action carvedilol 25 mg tablet 25 mg PO BID spironolactone 25 mg tablet 25 mg PO DAILY clonidine HCl 0.2 mg tablet 0.2 mg PO Q12H lorazepam 0.5 mg tablet 0.5 mg PO Q12H PRN (Reason: anxiety) hydralazine 50 mg tablet 100 mg PO Q8H losartan 100 mg tablet 100 mg PO DAILY Print Language: Italian Instructions: Chronic Hypertension (ED) Referrals: Amelia Trinh MD [Primary Care Provider] - 1 week Discharge Date/Time: 12/22/24 21:52
[2024-12-22] MEDS: LORAZEPAM 0.5 MG TABLET PO (20:59)
[2024-12-22] MEDS: HYDRALAZINE HCL 10 MG TABLET 20 MG PO (20:59)
--- NOTE | 2024-12-22 21:51 | PC.NURSE ---
i gave this patient verbal and written discharge orders and this patient vices yes to understanding these. at time of discharge this patient voices no concerns and shows no signs of distress
== END 2024-12-22 21:52 | disposition home or self-care (01) ==
PROVIDERS: Emergency Provider Internal Medicine; PCP Family Medicine
DX: I10 Essential (primary) hypertension (principal); F41.9 Anxiety disorder, unspecified
CPT/HCPCS: 93005; 99283

== ENCOUNTER 2024-12-24 13:45 | Emergency (ER) | payer MEDICARE, SELFPAY ==
[2024-12-24 14:02] VITALS: BP 216/83; PULSE 63; TEMP 36.6; O2SAT 98; BMI 23.8
[2024-12-24 14:28] VITALS: PULSE 67
[2024-12-24 14:53] LABS: Basophils Absolute Auto 0.2 10^3/uL (0.0-0.1); Basophils Percent Auto 3.4 % (0.2-2.0); Eosinophils Absolute Auto 0.3 10^3/uL (0.0-0.7); Eosinophils Percent Auto 6.1 % (0.9-7.0); Hematocrit 40.1 % (36.0-48.0); Hemoglobin 12.9 g/dL (12.0-16.0); Immature Granulocytes Abs Auto 0.02 10^3/uL (0.00-0.03); Immature Granulocytes Pct Auto 0.4 % (0.0-0.5); Lymphocytes Absolute Auto 1.7 10^3/uL (1.2-3.8); Lymphocytes Percent Auto 29.6 % (20.5-60.0); Mean Corpuscular HGB Conc 32.2 g/dL (29.9-35.2); Mean Corpuscular Hemoglobin 30.2 pg (26.7-34.0); Mean Corpuscular Volume 93.9 fL (81.0-99.0); Mean Platelet Volume 11.4 fL (9.5-13.5); Monocytes Absolute Auto 0.7 10^3/uL (0.3-0.8); Monocytes Percent Auto 12.5 % (1.7-12.0); Neutrophils Absolute Auto 2.7 10^3/uL (1.4-6.5); Platelet Count 128 10^3/uL (150-450); Red Blood Count 4.27 10^6/uL (4.20-5.40); Red Cell Distribution Width 14.3 % (11.0-15.0); White Blood Count 5.6 10^3/uL (4.0-11.0)
[2024-12-24 14:56] VITALS: BP 180/80
[2024-12-24] MEDS: CLONIDINE HCL 0.1 MG TABLET 0.2 MG PO (14:56)
--- NOTE | 2024-12-24 15:15 | ECG_ITS ---
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 Measurements Intervals [place] Rate: 58 P: 55 IA: 196 QRS: 56 QRSD: 96 T: 47 QT: 436 QTc: 433 Interpretive Statements 1100 Sinus rhythm 9110 normal ECG Compared to ECG 12/22/2024 20:44:55 Possible ischemia no longer present Electronically Signed On 12-24-2024 19:06:38 EDT by EDVIN GRUBBS M.D.
[2024-12-24 15:22] LABS: Alanine Aminotransferase 14 U/L (14-59); Albumin Globulin Ratio 1.2; Albumin Level 3.4 g/dL (3.4-5.0); Alkaline Phosphatase 55 U/L (46-116); Anion Gap 11.1; Aspartate Amino Transferase 15 U/L (15-37); BUN Creatinine Ratio 20.2; Bilirubin Total 0.3 mg/dL (0.2-1.0); Calcium 9.8 mg/dL (8.5-10.1); Carbon Dioxide 29.4 mmol/L (21.0-32.0); Chloride 106 mmol/L (98-107); Estimated GFR (African America 49 (>=60 mL/min/1.73m^2); Estimated GFR (Non-African Ame 41 (>=60 mL/min/1.73m^2); Globulin 2.9 g/dL; Glucose 158 mg/dL (74-106); Potassium 3.5 mmol/L (3.5-5.1); Sodium 143 mmol/L (136-145); Total Protein 6.3 g/dL (6.4-8.2)
[2024-12-24 15:23] LABS: Troponin I High Sensitivity 8.8 pg/mL (4.0-51.3)
[2024-12-24 15:37] VITALS: BP 170/90; PULSE 55; O2SAT 97
--- NOTE | 2024-12-24 16:23 | ED.GENADUL1 ---
HPI HPI - General Adult General Chief complaint: Recheck/Abnormal Lab/Rx Stated complaint: HIGH BLOOD PRESSURE Time Seen by Provider: 12/24/24 14:24 Source: patient Mode of arrival: walk-in Limitations: no limitations History of Present Illness HPI narrative: The patient is coming to the ER with a concern that she has been having this feeling that her heart beating in her ears bilaterally that she feels whenever she goes to sleep, she does not have any pain she denies any nausea vomiting or any other concerns, and she mentioned that she think this is happening because her blood pressure is elevated. Patient mentioned that she has been taking her blood pressure medication as prescribed Related Data Home Medications ?Medication ?Instructions ?Recorded ?Confirmed carvedilol 25 mg tablet 25 mg PO BID 12/28/23 12/22/24 hydralazine 50 mg tablet 100 mg PO Q8H 12/28/23 12/22/24 lorazepam 0.5 mg tablet 0.5 mg PO Q12H PRN anxiety 12/28/23 05/10/24 losartan 100 mg tablet 100 mg PO DAILY 12/28/23 12/22/24 spironolactone 25 mg tablet 25 mg PO DAILY 12/28/23 12/22/24 Previous Rx's ?Medication ?Instructions ?Recorded aspirin 81 mg chewable tablet 81 mg PO DAILY #20 tabs 12/24/24 atorvastatin 40 mg tablet 40 mg PO DAILY #20 tabs 12/24/24 clonidine HCl 0.2 mg tablet 0.2 mg PO BID #10 tabs 12/24/24 Allergies Allergy/AdvReac Type Severity Reaction Status Date / Time Sulfa (Sulfonamide AdvReac Mild rash Verified 12/24/24 14:02 Antibiotics) Opioid HPI Opioid Management Most Recent Opioid Data: No Data to Display Review of Systems ROS Status of ROS 10 or more systems reviewed and unremarkable except as noted in history and below PFSH PFSH Social History Little interest or pleasure in doing things: not at all Feeling down, depressed, or hopeless: not at all Exam Narrative Exam Narrative: Nurses notes and vital signs reviewed and patient is not hypoxic. General: Well-appearing and in no apparent distress. Skin: Warm, dry, no pallor noted. No rash. Head: Normocephalic, atraumatic. Neck: Supple, non-tender. No bruit heard Cardiovascular: Regular Rate and Rhythm without murmur, gallop or rub. Respiratory: No accessory muscle use or respiratory distress. Lungs are clear to auscultation, no wheezing, rales or rhonchi Chest Wall: no tenderness Back: No midline thoracic or lumbar vertebral tenderness. No CVA tenderness Musculoskeletal: normal ROM, no calf or popliteal tenderness, no lower extremity edema/swelling GI: Abdomen is soft, non-distended. Normal bowel sounds. No masses appreciated. No tenderness to palpation. No rebound, guarding, or rigidity noted. Constitutional Vital Signs, click to edit/add: Last Vital Signs Temp 97.9 F 12/24/24 14:02 Pulse 55 L 12/24/24 15:37 Resp 18 12/24/24 15:37 BP 170/90 H 12/24/24 15:37 Pulse Ox 97 12/24/24 15:37 O2 Del Method Room Air 12/24/24 14:02 Course Vital Signs Vital signs: Vital Signs Temperature 97.9 F 12/24/24 14:02 Pulse Rate 63 12/24/24 14:02 Respiratory Rate 20 12/24/24 14:02 Blood Pressure 216/83 H 12/24/24 14:02 Pulse Oximetry 98 12/24/24 14:02 Oxygen Delivery Method Room Air 12/24/24 14:02 Temperature 97.9 F 12/24/24 14:02 Pulse Rate 55 L 12/24/24 15:37 Respiratory Rate 18 12/24/24 15:37 Blood Pressure 170/90 H 12/24/24 15:37 Pulse Oximetry 97 12/24/24 15:37 Oxygen Delivery Method Room Air 12/24/24 14:02 Medical Decision Making [facility] Narrative Medical decision making narrative: The patient EKG in the ER was showing sinus rhythm with a heart rate of [address] elevation or depression The patient CBC and chemistry showed no acute pathology she had a history of chronic kidney disease Initially her blood pressure was controlled with clonidine 0.2 mg the plan was to increase her clonidine to 0.3 mg twice daily And the after I found that the patient have a chronic kidney disease there is a high risk of exposing her to contrast with the CT angio and I did speak with , and he agreed that as long as the blood pressure got controlled and now 170 systolic instead of 200 systolic initially just that she continue with outpatient after the carotid ultrasound done as outpatient The patient also is to be started on baby aspirin daily in addition to atorvastatin 40 mg daily as per Dr. Gregorio advised I spoke with the primary care Dr. Trinh and she was informed of the above-mentioned plan The patient also after speaking with her about her blood pressure medication and it seemed that she is not taking her clonidine 0.2 mg twice daily she is taking it only 1 time and the plan right now only to take her clonidine 0.2 milligram twice daily instead of 1 daily The patient is to follow up with primary care physician in next 2-3 days or to return to the emergency department should any of the signs or symptoms worsen or new symptoms develop. The patient agrees with the following Diagnosis and Treatment plan and the patient will be discharged home. Lab Data Labs: Lab Results 12/24/24 Range/Units 14:42 WBC 5.6 (4.0-11.0) 10^3/uL RBC 4.27 (4.20-5.40) 10^6/uL Hgb 12.9 (12.0-16.0) g/dL Hct 40.1 (36.0-48.0) % MCV 93.9 (81.0-99.0) fL MCH 30.2 (26.7-34.0) pg MCHC 32.2 (29.9-35.2) g/dL RDW 14.3 (11.0-15.0) % Plt Count 128 L (150-450) 10^3/uL MPV 11.4 (9.5-13.5) fL Neut % (Auto) 48.0 (43.0-75.0) % Lymph % (Auto) 29.6 (20.5-60.0) % [place] % (Auto) 12.5 H (1.7-12.0) % Eos % (Auto) 6.1 (0.9-7.0) % Baso % (Auto) 3.4 H (0.2-2.0) % Neut # (Auto) 2.7 (1.4-6.5) 10^3/uL Lymph # (Auto) 1.7 (1.2-3.8) 10^3/uL [place] # (Auto) 0.7 (0.3-0.8) 10^3/uL Eos # (Auto) 0.3 (0.0-0.7) 10^3/uL Baso # (Auto) 0.2 H (0.0-0.1) 10^3/uL Abs Immat Gran (auto) 0.02 (0.00-0.03) 10^3/uL Imm/Tot Granulo (auto) 0.4 (0.0-0.5) % Sodium 143 (136-145) mmol/L Potassium 3.5 (3.5-5.1) mmol/L Chloride 106 (98-107) mmol/L Carbon Dioxide 29.4 (21.0-32.0) mmol/L Anion Gap 11.1 BUN 25.0 H (7.0-18.0) mg/dL Creatinine 1.24 H (0.55-1.02) mg/dL Est GFR ( Amer) 49 L (>=60 mL/min/1.73m^2) Est GFR (Non-Af Amer) 41 L (>=60 mL/min/1.73m^2) BUN/Creatinine Ratio 20.2 Glucose 158 H (74-106) mg/dL Calcium 9.8 (8.5-10.1) mg/dL Total Bilirubin 0.3 (0.2-1.0) mg/dL AST 15 (15-37) U/L ALT 14 (14-59) U/L Alkaline Phosphatase 55 (46-116) U/L Troponin I High Sens 8.8 (4.0-51.3) pg/mL Total Protein 6.3 L (6.4-8.2) g/dL Albumin 3.4 (3.4-5.0) g/dL Globulin 2.9 g/dL Albumin/Globulin Ratio 1.2 Discharge Plan Discharge Chief Complaint: Recheck/Abnormal Lab/Rx Clinical Impression: Hypertension Patient Disposition: Home, Self-Care Time of Disposition Decision: 16:01 Condition: Good Prescriptions / Home Meds: New aspirin 81 mg tablet,chewable 81 mg PO DAILY Qty: 20 0RF atorvastatin 40 mg tablet 40 mg PO DAILY Qty: 20 0RF clonidine HCl 0.2 mg tablet 0.2 mg PO BID Qty: 10 0RF Discontinued clonidine HCl 0.2 mg tablet 0.2 mg PO Q12H No Action carvedilol 25 mg tablet 25 mg PO BID spironolactone 25 mg tablet 25 mg PO DAILY lorazepam 0.5 mg tablet 0.5 mg PO Q12H PRN (Reason: anxiety) hydralazine 50 mg tablet 100 mg PO Q8H losartan 100 mg tablet 100 mg PO DAILY Print Language: Gabonese Instructions: Carotid Artery Disease (DC), Hypertension (ED) Referrals: Amelia Trinh MD [Primary Care Provider] - 1 week Melba Gregorio MD [Physician] - 1 week Discharge Date/Time: 12/24/24 16:24
== END 2024-12-24 16:24 | disposition home or self-care (01) ==
PROVIDERS: Emergency Provider Emergency Medicine; PCP Family Medicine
DX: I12.9 Hypertensive chronic kidney disease with stage 1 through stage 4 chronic kidney disease, or unspecified chronic kidney disease (principal); Z79.899 Other long term (current) drug therapy; N18.9 Chronic kidney disease, unspecified
CPT/HCPCS: 36415; 80053; 84484; 85025; 93005; 99284

== ENCOUNTER 2025-01-10 14:02 | Outpatient (OUT) | payer MEDICARE, SELFPAY | END 2025-01-10 14:03 | disposition home or self-care (01) | LOC: US 14:02 | PROVIDERS: PCP Family Medicine; Visit Provider Family Medicine | DX: R09.89 Other specified symptoms and signs involving the circulatory and respiratory systems (principal); I1A.0 Resistant hypertension | CPT/HCPCS: 93880 ==

== ENCOUNTER 2025-04-06 17:18 | Emergency (ER) | payer MEDICARE, SELFPAY ==
[2025-04-06] VITALS (8 sets, daily range): BP systolic 176–236; BP diastolic 78–104; PULSE 53–64; TEMP 36.4; O2SAT 96–98; BMI 24.0
--- OUTSIDE RECORDS SUMMARY | 2025-04-06 17:30 | XMS_ITS | CCD ---
Author Organization [facility] CliniSypr Care Team Providers Care Inventory Clerk Name Role Phone LACEY FREY Primary Care Physician SAURABH Puentes, DR RUBIO Consulting Unavailable HAY ., DR RUBIO Attending Unavailable SAURABH ., DR RUBIO Admitting Unavailable TK, DR LACEY Ashton Primary Care Unavailable NITHIN, DR GEORGIE Bartholomew Consulting Unavailabl e NITHIN, DR GEORGIE Bartholomew Attending Unavailabl e NITHIN, DR GEORGIE Bartholomew Admitting Unavailjavier FREY, DR LACEY Ashton Primary Care Unavailable BERNIE NAVARRO Consulting Unavailable TK, DR LACEY Ashton Primary Care Unavailable YOAV ., ASTRID Admitting Unavailable YOAV ., ASTRID Attending Unavailable YOAV Puentes, ASTRID Consulting Unavailable MOMO RICO Consulting Unavailable TK, DR LACEY Ashton Primary Care Unavailable RINKU, DR CINDY Resendiz Admitting Unavailable RINKU, DR CINDY Resendiz Attending Unavailable RINKU, DR CINDY Resendiz Consulting Unavailable AHKEVIN PAULSONEH Consulting Unavailable TK, DR LACEY Ashton Consulting Unavailable TK, DR LACEY Ashton Primary Care Unavailable TK, DR LACEY Ashton Attending Unavailable TK, DR LACEY Ashton Admitting Unavailable AALIYAH POOLE Consulting Unavailable TK, DR LACEY Ashton Primary Care Unavailable AALIYAH POOLE Attending Unavailable VIRGILIO, AALIYAH Admitting Unavailable VIRGILIO, AALIYAH Admitting Unavailable VIRGILIO, AALIYAH Attending Unavailable FREY, DR LACEY Ashton Primary Care Unavailable FREY, DR LACEY Ashton Primary Care Unavailable RADHA HARRINGTON Admitting Unavailable ANIRUDH, RADHA Attending Unavailable RADHA HARRINGTON Consulting Unavailable TK, DR LACEY Ashton Primary Care Unavailable PAY ., DR GARCIA Admitting Unavailable PAY ., DR GARCIA Attending Unavailable JAMES, DR HARJINDER Resendiz Consulting Unavailable PAY ., DR GARCIA Consulting Unavailable AL .RUSSELL Consulting Unavailable JAMES, DR HARJINDER Resendiz Consulting Unavailable EVAN WALLIS Attending Unavailable EVAN WALLIS Admitting Unavailable TK, DR LACEY Ashton Primary Care Unavailable EVAN WALLIS Consulting Unavailable RADHA HARRINGTON Attending Unavailable ANIRUDH, RADHA Admitting Unavailable ANIRUDH, RADHA Consulting Unavailable TK, DR LACEY Ashton Primary Care Unavailable FREY, DR LACEY Ashton Primary Care Unavailable RINKU, DR CINDY Resendiz Admitting Unavailable RINKU, DR CINDY Resendiz Attending Unavailable RINKU, DR CINDY Resendiz Consulting Unavailable SAURABH ., DR RUBIO Consulting Unavailable HAY ., DR RUBIO Attending Unavailable HAY ., DR RUBIO Admitting Unavailable FREY, DR LACEY Ashton Primary Care Unavailable ANIRUDH, RADHA Consulting Unavailable ANIRUDH, RADHA Attending Unavailable ANIRUDH, RADHA Admitting Unavailable FREY, DR LACEY Ashton Primary Care Unavailable HAY ., DR RUBIO Consulting Unavailable HAY ., DR RUBIO Attending Unavailable HAY ., DR RUBIO Admitting Unavailable FREY, DR LACEY Ashton Primary Care Unavailable ZAVALETA ., MR ISATU Consulting Unavailable REINECK, DR GEORGIE Bartholomew Attending Unavailabl e REINECK, DR GEORGIE Bartholomew Admitting Unavailabl e FREY, DR LACEY Ashton Primary Care Unavailable FREY, DR LACEY Ashton Primary Care Unavailable MARKER ., DR FISCHER Admitting Unavailable MARKER ., DR FISCHER Attending Unavailable MARKER ., DR FISCHER Consulting Unavailable FREY, DR LACEY Ashton Primary Care Unavailable YOAV ., ASTRID Admitting Unavailable YOAV ., ASTRID Attending Unavailable YOAV ., ASTRID Consulting Unavailable ALGHOLINSEY, MOHAMAD Admitting Unavailable ALGMAKAYLA, SUSAN Attending Unavailable TK, DR LACEY Ashton Primary Care Unavailable COLDWATER, DR BERTHA Logan Consulting Unavailable ALGHOTHANI, MOHAMAD Consulting Unavailable Frey, Lacey Unavailable Rox Watson Unavailable MISSY BAUER Attending Unavailable VIRGILIO, AALIYAH Attending Unavailable VIRGILIO, AALIYAH Attending Unavailable VIRGILIOAALIYAH Reeder Attending Unavailable EDVIN GRUBBS Attending Unavailable Allergies Allergy Classification Reported Allergen(s) Allergy Type Date of Onset Reaction(s) Facility (2 sources) Sulfonamides (Antibiotic); Translations: [sulfa drugs] Drug allergy Unknown [facility] (2 sources) Sulfonamides (Antibiotic) Drug allergy (disorder) 4 [facility] Repository (10 sources) Substance with sulfonamide structure and antibacterial mechanism of action (substance) Drug allergy Unknown [employer] [facility] Other (1 source) Spironolactone; Translations: [SPIRONOLACTONE] Drug Allergy 5 [facility] Repository (1 source) Sulfonamides (Antibiotic); Translations: [SULFA (SULFONAMIDE ANTIBIOTICS)] Propensity to adverse reactions to drug (disorder) 2 [facility] Rep[facility] Medications Current Medications Medication Drug Class(es) Dates Sig (Normalized) Sig (Original) amLODIPine 5 mg oral tablet (10 sources) Dihydropyridine Calcium Channel Atif take 1 tablet by mouth every twenty-four hours aspirin 81 mg chewable tablet (2 sources) Platelet Aggregation Inhibitor, Nonsteroidal Anti-inflammatory Drug Start: 12-26-2024 take 1 tablet by mouth once daily Aspirin 81 mg tablet,chewable Active 81 MG PO Daily December 26, 2024 12:00am atorvastatin 40 mg oral tablet (2 sources) HMG-CoA Reductase Inhibitor Start: 12-26-2024 take 1 tablet by mouth once daily Atorvastatin 40 mg tablet Active 40 MG PO Daily December 26, 2024 12:00am carvedilol 25 mg oral tablet (16 sources) alpha-Adrenergic Atif, beta-Adrenergic Atif Start: 01-08-2024 take 1 tablet by mouth twice daily at mealtime take 1 tablet by mouth every twe lve hours cloNIDine hydrochloride 0.2 mg oral tablet (19 sources) Central alpha-2 Adrenergic Agonist Start: 11-18-2024 take 1 tablet by mouth once daily in the morning Start: 01-08-2024 End: 11-18-2024 take 1 tablet by mouth twice daily take 1 tablet by mouth every twe lve hours furosemide 20 mg oral tablet (10 sources) Loop Diuretic hydrALAZINE hydrochloride 50 mg oral tablet (20 sources) Arteriolar Vasodilator Start: take 2 tablets by mouth twice daily Hydralazine 50 mg tablet Active 100 MG PO Twice daily December 26, 2024 1:13pm Start: 11-18-2024 End: 12-26-2024 Hydralazine 50 mg tablet Discontinued 75 MG PO Twice daily November 18, 2024 2:39pm December 26, 2024 1:15pm Start: 01-05-2024 End: 11-18-2024 take 2 tablets by mouth three times daily Hydralazine 50 mg tablet Discontinued 100 MG PO Three times daily January 05, 2024 12:00am November 18, 2024 2:40pm Start: 01-05-2024 take 100 mg by mouth three times daily Hydralazine Active 100 MG PO Three times daily January 05, 2024 12:00am take 2 tablets by mo uth every eight hours hydrALAZINE HCl 50 MG 2 tablet with food Orally Three times a day Active hydroCHLOROthiazide 25 mg oral tablet (3 sources) Thiazide Diuretic Start: 11-18-2024 take 1 tablet by mouth once daily Hydrochlorothiazide 25 mg tablet Active 25 MG PO Daily November 18, 2024 1:00am losartan potassium 100 mg oral tablet (16 sources) Angiotensin 2 Receptor Atif Start: 01-08-2024 take 1 tablet by mouth once daily Losartan 100 mg tablet Active 1 TAB PO Daily January 08, 2024 12:00am FreeTextSi tablet Orally Once a day; Note: Source Status: Not-TakingundefinedPRN; Provider: Eros Peñaloza ( ) take 1 tablet by mouth every twe nty-four hours microencapsulated potassium chloride 10 meq extended release oral tablet (10 sources) take 1 tablet by juliette th once daily at mealtime as needed Completed/Discontinued Medications Medication Drug Class(es) Dates Sig (Normalized) Sig (Original) levothyroxine sodium 0.05 mg oral tablet (8 sources) l-Thyroxine Start: 05-17-2024 End: 08-15-2024 take 1 tablet by mouth once daily Levothyroxine 50 mcg tablet Discontinued 50 MCG PO Daily June 19, 2024 11:42am August 15, 2024 2:12pm LORazepam 0.5 mg oral tablet (16 sources) Benzodiazepine Start: 01-05-2024 End: 01-08-2024 take 1 tablet by mouth twice daily as needed Lorazepam 0.5 mg tablet Discontinued 0.5 MG PO Twice daily as needed January 05, 2024 12:00am January 08, 2024 [...] Nov, Active spironolactone 25 mg oral tablet (16 sources) Aldosterone Antagonist Start: 01-08-2024 End: 11-18-2024 take 1 tablet by mouth once daily Problems Active Problems Problem Classification Problem Date Documented Da te Episodic/Chronic Anxiety disorders (1 source) Anxiety disorder, unspecified; Translations: [ANXIETY DISORDER UNSPECIFIED] Onset: 10-05-2022 Chronic Chronic kidney disease (19 sources) Chronic kidney disease stage 3B ; Translations: [Chronic kidney disease, stage 3b] 01-05-2024 Chronic Diabetes mellitus without complication (5 sources) Increased glucose level; Translations: [Other abnormal [...] 08-30-2022 Episodic Other aftercare (1 source) Other exterminator helper termite (current) drug therapy; Translations: [OTH PENITENTIARY 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 THERAPY] Onset: 10-12-2022 Episodic Other and ill-defined heart disease (3 sources) Other ill-defined heart diseases; Translations: [OTHER ILL-DEFINED HEART DISEASES] Onset: 07-20-2022 Chronic Other ear and sense organ disorders (2 sources) Bilateral objective pulsatile tinnitus of ears; Translations: [Pulsatile tinnitus, bilateral] 12-26-2024 Episodic Other ear and sense organ disorders (2 sources) Pulsatile tinnitus, bilateral; Translations: [Objective tinnitus] 12-26-2024 Episodic Other lower respiratory disease (3 sources) Shortness of breath; Translations: [SHORTNESS OF BREATH] Onset: 09-26-2022 Episodic Other nutritional; endocrine; and metabolic disorders (5 sources) Abnormal weight gain; Translations: [Abnormal weight gain] 05-07-2024 Episodic Other nutritional; endocrine; and metabolic disorders (2 sources) Abnormal weight gain; Translations: [Abnormal weight gain] 05-07-2024 Episodic Other screening for suspected conditions (not mental disorders or infectious disease) (3 sources) Raised TSH level; Translations: [Other specified abnormal findings of blood chemistry] 07-10-2024 Episodic Residual codes; unclassified (7 sources) Insomnia; Translations: [Other insomnia] 01-05-2024 Chronic [...] DIGESTV TRACT] Onset: 09-21-2022 Episodic Substance-related disorders (7 sources) Nicotine dependence, cigarettes, uncomplicated; Translations: [Tobacco dependence syndrome] Onset: 10-05-2022 01-05-2024 Chronic Syncope (5 sources) Syncope; Translations: [Syncope and collapse] 05-07-2024 [...] Value Interpretation Reference Range Facility Office Visiton 02-12-2025 Follow-up visit [id number] Zoraida Gaytan 1935 F Date Provider Department Center 02/12/2025 MISSY OCASIO CARD [facility] Family History Problem Relation Age of Onset Hypertension Mother Family Status - Relation Status Age at Mother Father Level of Service:23673 [place] OFFICE/OUTPATIENT ESTABLISHED MOD MDM 30 MIN Normal [facility] Basophils Auto (Bld) [#/Vol] on 12-24-2024 Basophils (Bld) [#/Vol] Automated basophil count High 0.0-0.1 [facility] Basophils/100 WBC Auto (Bld) on 12-24-2024 Basophils/100 WBC (Bld) Automated basophil % High 0.2-2.0 [facility] Eosinophils/100 WBC Auto (Bl d)on 12-24-2024 Eosinophils/100 WBC (Bld) Automated eosinophil % 0.9-7.0 [facility] Erythrocyte distribution wid th Auto (RBC) [Ratio]on 12-24-2024 Erythrocyte distribution width (RBC) [Ratio] Erythrocyte distribution width [Ratio] by Automated count 11.0-15.0 [facility] Estimated glomerular filtrat ion rate (GFR) non- Americanon 12-24-2024 GFR/1.73 sq M.predicted among non-blacks MDRD (S/P/Bld) [Vol rate/Area] Estimated glomerular filtration rate (GFR) non- Low >=60 mL/min/1.73m 2 [facility] Globulin Calc (S) [Mass/Vol] on 12-24-2024 Globulin (S) [Mass/Vol] Serum globulin measurement by calculation (mass/volume) [facility] Hematocrit Auto (Bld) [Volum e fraction]on 12-24-2024 Hematocrit (Bld) [Volume fraction] Hematocrit [Volume Fraction] of Blood by Automated count 36.0-48.0 [facility] Hemoglobin [Mass/volume] in Bloodon 12-24-2024 Hemoglobin (Bld) [Mass/Vol] Hemoglobin [Mass/volume] in Blood 12.0-16.0 [facility] Laboratory - Chemistry and C hemistry - challengeon 12-24-2024 Albumin [Mass/Vol] 3.4 g/dL 3.4-5.0 [facility] ALP [Catalytic activity/Vol] 55 U/L 46-116 [facility] ALT [Catalytic activity/Vol] 14 U/L 14-59 [facility] AST [Catalytic activity/Vol] 15 U/L 15-37 [facility] Bilirubin [Mass/Vol] 0.3 mg/dL 0.2-1.[address] [facility] Calcium [Mass/Vol] 9.8 mg/dL 8.5-10.1 [facility] Chloride [Moles/Vol] 106 mmol/L 98-[address] [facility] CO2 [Moles/Vol] 29.4 mmol/L 21.0-32.[address] [facility] Creatinine [Mass/Vol] 1.24 mg/dL High 0.55-1.02 [facility] GFR/1.73 sq M.predicted MDRD (S/P/Bld) [Vol rate/Area] 49 mL/min/{1.73_m2} Low >=60 mL/min/1.73m 2 [facility] Glucose [Mass/Vol] 158 mg/dL High 74-106 [facility] Potassium [Moles/Vol] 3.5 mmol/L 3.5-5.1 [facility] Protein [Mass/Vol] 6.3 g/dL Low 6.4-8.2 [facility] Sodium [Moles/Vol] 143 mmol/L 136-145 [facility] Urea nitrogen [Mass/Vol] 25.0 mg/dL High 7.0-18.0 [facility] Urea nitrogen/Creatinine [Mass ratio] 20.2 mg/mg [facility] Laboratory - Hematology and Cell countson 12-24-2024 Immature granulocytes/100 WBC (Bld) 0.4 % 0.0-0.5 [facility] Leukocytes [#/volume] correc gely for nucleated erythrocytes in Blood by Automated counon 12-24-2024 WBC corrected for nucl RBC Auto (Bld) [#/Vol] Leukocytes [#/volume] corrected for nucleated erythrocytes in Blood by Automated coun 4.0-11.0 [facility] Lymphocytes Auto (Bld) [#/Vo l]on 12-24-2024 Lymphocytes (Bld) [#/Vol] Lymphocytes [#/volume] in Blood by Automated count 1.2-3.8 [facility] Lymphocytes/100 WBC Auto (Bl d)on 12-24-2024 Lymphocytes/100 WBC (Bld) Lymphocytes/100 leukocytes in Blood by Automated count 20.5-60.0 [facility] MCH Auto (RBC) [Entitic mass ]on 12-24-2024 MCH (RBC) [Entitic mass] MCH [Entitic mass] by Automated count 26.7-34.0 [facility] MCHC Auto (RBC) [Mass/Vol]on 12-24-2024 MCHC (RBC) [Mass/Vol] MCHC [Mass/volume] by Automated count 29.9-35.2 [facility] MCV Auto (RBC) [Entitic vol] on 12-24-2024 MCV (RBC) [Entitic vol] MCV [Entitic volume] by Automated count 81.0-99.0 [facility] Monocytes Auto (Bld) [#/Vol] on 12-24-2024 Monocytes (Bld) [#/Vol] Automated blood monocyte count 0.3-0.8 [facility] Monocytes/100 WBC Auto (Bld) on 12-24-2024 Monocytes/100 WBC (Bld) Automated monocyte % High 1.7-12.0 [facility] Neutrophils Auto (Bld) [#/Vo l]on 12-24-2024 Neutrophils (Bld) [#/Vol] Neutrophils [#/volume] in Blood by Automated count 1.4-6.5 [facility] Neutrophils/100 WBC Auto (Bl d)on 12-24-2024 Neutrophils/100 WBC (Bld) Automated neutrophil % 43.0-75.0 [facility] No Panel Informationon 12-24 Eosinophils # (Auto) 0.3 10 3/uL 0.0-0.7 [facility] Immature Granulocyte # (Auto) 0.02 10 3/uL 0.00-0.03 [facility] Troponin I High Sensitivity 8.8 pg/mL 4.0-51.3 [facility] Comment on above: CUT-OFF POINTS [...] mean volume Auto (B ld) [Entitic vol]on 12-24-2024 Platelet mean volume (Bld) [Entitic vol] Platelet mean volume [Entitic volume] in Blood by Automated count 9.5-13.5 [facility] Platelets Auto (Bld) [#/Vol] on 12-24-2024 Platelets (Bld) [#/Vol] Platelets [#/volume] in Blood by Automated count Low 150-450 [facility] RBC Auto (Bld) [#/Vol]on RBC (Bld) [#/Vol] Erythrocytes [#/volume] in Blood by Automated count 4.20-5.40 [facility] Serum or plasma albumin/glob ulin mass ratioon 12-24-2024 Albumin/Globulin [Mass ratio] Serum or plasma albumin/globulin mass ratio [facility] Serum or plasma anion gap de terminationon 12-24-2024 Anion gap [Moles/Vol] Serum or plasma an ion gap determination [facility] Office Visiton 11-28-2024 Follow-up visit [id number] Zoraida Gaytan 1935 F Date Provider Department Center 11/28/2024 EDVIN PALM CARD [facility] Family History Problem Relation Age of Onset Hypertension Mother Family Status - Relation Status Age at Mother Level of Service:02789 [place] OFFICE/OUTPATIENT ESTABLISHED LOW MDM 20 MIN Normal [facility] Office Visiton 06-28-2024 Follow-up visit [id number] Zoraida Gaytan Chris 1935 F Date Provider Department Center 06/28/2024 AALIYAH HENDERSON [facility] Family History Problem Relation Age of Onset Hypertension Mother Family Status - Relation Status Age at Mother Level of Service:61500 [place] OFFICE/OUTPATIENT ESTABLISHED LOW MDM 20 MIN Normal [facility] Basophils Auto (Bld) [#/Vol] on 05-15-2024 Basophils (Bld) [#/Vol] 0.2 10 3/uL High 0.0-0.1 [facility] Basophils/100 WBC Auto (Bld) on 05-15-2024 Basophils/100 WBC (Bld) 2.2 % High 0.2-2.0 [facility] Eosinophils/100 WBC Auto (Bl d)on 05-15-2024 Eosinophils/100 WBC (Bld) 5.0 % 0.9-7.0 [facility] Erythrocyte distribution wid th Auto (RBC) [Ratio]on 05-15-2024 Erythrocyte distribution width (RBC) [Ratio] 14.7 % 11.0-15.0 [facility] Estimated glomerular filtrat ion rate (GFR) non- Americanon 05-15-2024 GFR/1.73 sq M.predicted among non-blacks MDRD (S/P/Bld) [Vol rate/Area] 45 mL/min/{1.73_m2} Low >=60 [facility] Hematocrit Auto (Bld) [Volum e fraction]on 05-15-2024 Hematocrit (Bld) [Volume fraction] 40.2 % 36.0-48.0 [facility] Hemoglobin [Mass/volume] in Bloodon 05-15-2024 Hemoglobin (Bld) [Mass/Vol] 13.0 g/dL 12.0-16.0 [facility] Laboratory - Chemistry and C hemistry - challengeon 05-15-2024 Calcium [Mass/Vol] 9.5 mg/dL 8.5-10.1 [facility] Chloride [Moles/Vol] 105 mmol/L 98-[address] [facility] CO2 [Moles/Vol] 26.4 mmol/L 21.0-32.[address] [facility] Cobalamin (Vitamin B12) [Mass/Vol] 618.0 pg/mL 193.0-986.0 [facility] Creatinine [Mass/Vol] 1.15 mg/dL High 0.55-1.02 [facility] Free T4 [Mass/Vol] 1.06 ng/dL 0.76-1.46 [facility] GFR/1.73 sq M.predicted MDRD (S/P/Bld) [Vol rate/Area] 54 mL/min/{1.73_m2} Low >=60 [facility] Glucose [Mass/Vol] 104 mg/dL 74-106 [facility] Potassium [Moles/Vol] 4.2 mmol/L 3.5-5.1 [facility] Sodium [Moles/Vol] 137 mmol/L 136-145 [facility] TSH Qn 4.417 m[IU]/L High 0.358-3.740 [facility] Urea nitrogen [Mass/Vol] 20.0 mg/dL High 7.0-18.0 [facility] Urea nitrogen/Creatinine [Mass ratio] 17.4 mg/mg [facility] Laboratory - Hematology and Cell countson 05-15-2024 Immature granulocytes/100 WBC (Bld) 1.3 % High 0.0-0.5 [facility] Leukocytes [#/volume] correc gely for nucleated erythrocytes in Blood by Automated counon 05-15-2024 WBC corrected for nucl RBC Auto (Bld) [#/Vol] 10.4 10 3/uL 4.0-11.0 [facility] Lymphocytes Auto (Bld) [#/Vo l]on 05-15-2024 Lymphocytes (Bld) [#/Vol] 2.1 10 3/uL 1.2-3.8 [facility] Lymphocytes/100 WBC Auto (Bl d)on 05-15-2024 Lymphocytes/100 WBC (Bld) 20.1 % Low 20.5-60.0 [facility] MCH Auto (RBC) [Entitic mass ]on 05-15-2024 MCH (RBC) [Entitic mass] 30.2 pg 26.7-34.0 [facility] MCHC Auto (RBC) [Mass/Vol]on 05-15-2024 MCHC (RBC) [Mass/Vol] 32.3 g/dL 29.9-35.2 [facility] MCV Auto (RBC) [Entitic vol] on 05-15-2024 MCV (RBC) [Entitic vol] 93.3 fL 81.0-99.0 [facility] Monocytes Auto (Bld) [#/Vol] on 05-15-2024 Monocytes (Bld) [#/Vol] 1.4 10 3/uL High 0.3-0.8 [facility] Monocytes/100 WBC Auto (Bld) on 05-15-2024 Monocytes/100 WBC (Bld) 13.0 % High 1.7-12.0 [facility] Neutrophils Auto (Bld) [#/Vo l]on 05-15-2024 Neutrophils (Bld) [#/Vol] 6.1 10 3/uL 1.4-6.5 [facility] Neutrophils/100 WBC Auto (Bl d)on 05-15-2024 Neutrophils/100 WBC (Bld) 58.4 % 43.0-75.0 [facility] No Panel Informationon 05-15 25-Hydroxy Vitamin D Total 32.6 ng/mL [facility] Comment on above: <20 ng/mL Vit D defi cient20-<30 ng/mL Vit D [id number] ng/mL Vit D sufficient>100 ng/mL Potential Toxicity Eosinophils # (Auto) 0.5 10 3/uL 0.0-0.7 [facility] Folate 12.10 ng/mL 8.60-58.90 [facility] Immature Granulocyte # (Auto) 0.13 10 3/uL High 0.00-0.03 [facility] Platelet mean volume Auto (B ld) [Entitic vol]on 05-15-2024 Platelet mean volume (Bld) [Entitic vol] 10.7 fL 9.5-13.5 [facility] Platelets Auto (Bld) [#/Vol] on 05-15-2024 Platelets (Bld) [#/Vol] 132 10 3/uL Low 150-450 [facility] RBC Auto (Bld) [#/Vol]on RBC (Bld) [#/Vol] 4.31 10 6/uL 4.20-5.40 [facility] Serum or plasma anion gap de terminationon 05-15-2024 Anion gap [Moles/Vol] 9.8 mmol/L [facility] Basophils Auto (Bld) [#/Vol] on 05-10-2024 Basophils (Bld) [#/Vol] 0.2 10 3/uL High 0.0-0.1 [facility] Basophils/100 WBC Auto (Bld) on 05-10-2024 Basophils/100 WBC (Bld) 3.1 % High 0.2-2.0 [facility] Eosinophils/100 WBC Auto (Bl d)on 05-10-2024 Eosinophils/100 WBC (Bld) 6.3 % 0.9-7.0 [facility] Erythrocyte distribution wid th Auto (RBC) [Ratio]on 05-10-2024 Erythrocyte distribution width (RBC) [Ratio] 14.8 % 11.0-15.0 [facility] Estimated glomerular filtrat ion rate (GFR) non- Americanon 05-10-2024 GFR/1.73 sq M.predicted among non-blacks MDRD (S/P/Bld) [Vol rate/Area] 39 mL/min/{1.73_m2} Low >=60 [facility] Fibrin D-dimer [Presence] in Platelet poor plasma by Latex agglutinationon 05-10-2024 Fibrin D-dimer LA Ql (PPP) 0.29 mg/L FEU <=0.59 [facility] Comment on above: Increases in [...] on 05-10-2024 Globulin (S) [Mass/Vol] 3.1 g/dL [facility] Hematocrit Auto (Bld) [Volum e fraction]on 05-10-2024 Hematocrit (Bld) [Volume fraction] 39.6 % 36.0-48.0 [facility] Hemoglobin [Mass/volume] in Bloodon 05-10-2024 Hemoglobin (Bld) [Mass/Vol] 12.9 g/dL 12.0-16.0 [facility] INR in Platelet poor plasma by Coagulation assayon 05-10-2024 INR Coag (PPP) [Relative time] 1.34 {INR} [facility] Comment on above: DESIRED INR:2.0-3.0 CONDITIONS NOT LISTED BELOW2.5-3.5 FOR PROSTHETIC HEART VALVE REPLACEMENT2.5-3.5 RECURRENT THROMBOSIS Laboratory - Chemistry and C hemistry - challengeon 05-10-2024 Bilirubin Ql (U) Negative NEGATIVE [facility] Glucose (U) [Mass/Vol] Negative NEGATIVE [facility] Ketones Ql (U) Negative NEGATIVE [facility] pH (U) 6.0 [pH] 5.0-9.0 [facility] Specific gravity (U) [Rel density] 1.015 1.005-1.025 [facility] Urobilinogen Qn (U) 0.2 {Myranda'U}/dL 0.2-1.0 [facility] Albumin [Mass/Vol] 3.5 g/dL 3.4-5.0 [facility] ALP [Catalytic activity/Vol] 54 U/L 46-116 [facility] ALT [Catalytic activity/Vol] 17 U/L 14-59 [facility] AST [Catalytic activity/Vol] 14 U/L Low 15-37 [facility] Bilirubin [Mass/Vol] 0.4 mg/dL 0.2-1.[address] [facility] Calcium [Mass/Vol] 9.5 mg/dL 8.5-10.1 [facility] Chloride [Moles/Vol] 104 mmol/L 98-[address] [facility] CO2 [Moles/Vol] 26.0 mmol/L 21.0-32.[address] [facility] Creatinine [Mass/Vol] 1.28 mg/dL High 0.55-1.02 [facility] GFR/1.73 sq M.predicted MDRD (S/P/Bld) [Vol rate/Area] 48 mL/min/{1.73_m2} Low >=60 [facility] Glucose [Mass/Vol] 143 mg/dL High 74-106 [facility] Natriuretic peptide B (Bld) [Mass/Vol] 178.0 pg/mL <=1800.0 [facility] Potassium [Moles/Vol] 3.9 mmol/L 3.5-5.1 [facility] Protein [Mass/Vol] 6.6 g/dL 6.4-8.2 [facility] Sodium [Moles/Vol] 136 mmol/L 136-145 [facility] Urea nitrogen [Mass/Vol] 21.0 mg/dL High 7.0-18.0 [facility] Urea nitrogen/Creatinine [Mass ratio] 16.4 mg/mg [facility] Laboratory - Hematology and Cell countson 05-10-2024 Immature granulocytes/100 WBC (Bld) 0.3 % 0.0-0.5 [facility] - Specimen inform ationon 05-10-2024 Appearance (U) CLEAR CLEAR [facility] Color (U) LT. YELLOW YELLOW [facility] Laboratory - Urinalysison Leukocyte esterase Test strip Ql (U) SMALL Abnormal NEGATIVE [facility] Mucus Ql (Urine sed) NONE SEEN NONE SEEN [facility] Nitrite Ql (U) Negative NEGATIVE [facility] Protein Ql (U) Negative NEG/TRACE [facility] Leukocytes [#/volume] correc gely for nucleated erythrocytes in Blood by Automated counon 05-10-2024 WBC corrected for nucl RBC Auto (Bld) [#/Vol] 5.9 10 3/uL 4.0-11.0 [facility] Lymphocytes Auto (Bld) [#/Vo l]on 05-10-2024 Lymphocytes (Bld) [#/Vol] 1.8 10 3/uL 1.2-3.8 [facility] Lymphocytes/100 WBC Auto (Bl d)on 05-10-2024 Lymphocytes/100 WBC (Bld) 31.0 % 20.5-60.0 [facility] MCH Auto (RBC) [Entitic mass ]on 05-10-2024 MCH (RBC) [Entitic mass] 30.4 pg 26.7-34.0 [facility] MCHC Auto (RBC) [Mass/Vol]on 05-10-2024 MCHC (RBC) [Mass/Vol] 32.6 g/dL 29.9-35.2 [facility] MCV Auto (RBC) [Entitic vol] on 05-10-2024 MCV (RBC) [Entitic vol] 93.2 fL 81.0-99.0 [facility] Monocytes Auto (Bld) [#/Vol] on 05-10-2024 Monocytes (Bld) [#/Vol] 0.7 10 3/uL 0.3-0.8 [facility] Monocytes/100 WBC Auto (Bld) on 05-10-2024 Monocytes/100 WBC (Bld) 12.4 % High 1.7-12.0 [facility] Neutrophils Auto (Bld) [#/Vo l]on 05-10-2024 Neutrophils (Bld) [#/Vol] 2.8 10 3/uL 1.4-6.5 [facility] Neutrophils/100 WBC Auto (Bl d)on 05-10-2024 Neutrophils/100 WBC (Bld) 46.9 % 43.0-75.0 [facility] No Panel Informationon 05-10 Urine Bacteria TRACE #/HPF Abnormal NONE SEEN [facility] Urine Occult Blood TRACE-I NEGATIVE [facility] Urine Other Casts NONE SEEN #/LPF NONE SEEN [facility] Urine Other Crystals None Seen #/HPF None Seen [facility] Urine RBC 5-10 #/HPF Abnormal 0-2 [facility] Urine Squamous Epithelial Cells MODERATE #/LPF Abnormal NONE/RARE [facility] Urine WBC 0-2 #/HPF Abnormal NONE SEEN [facility] Eosinophils # (Auto) 0.4 10 3/uL 0.0-0.7 [facility] Immature Granulocyte # (Auto) 0.02 10 3/uL 0.00-0.03 [facility] Troponin I High Sensitivity 5.5 pg/mL 4.0-51.3 [facility] Comment on above: CUT-OFF POINTS [...] volume (Bld) [Entitic vol] 10.9 fL 9.5-13.5 [facility] Platelets Auto (Bld) [#/Vol] on 05-10-2024 Platelets (Bld) [#/Vol] 144 10 3/uL Low 150-450 [facility] Prothrombin time (PT)on PT Coag (PPP) [Time] 13.8 s High 9.0-11.[address] [facility] RBC Auto (Bld) [#/Vol]on RBC (Bld) [#/Vol] 4.25 10 6/uL 4.20-5.40 [facility] Serum or plasma albumin/glob ulin mass ratioon 05-10-2024 Albumin/Globulin [Mass ratio] 1.1 {ratio} [facility] Serum or plasma anion gap de terminationon 05-10-2024 Anion gap [Moles/Vol] 9.9 mmol/L [facility] Office Visiton 05-01-2024 Follow-up visit [id number] Zoraida Gaytan 1935 F Date Provider Department Center 05/01/2024 AALIYAH HENDERSON Hos Family History Problem Relation Age of Onset Hypertension Mother Family Status - Relation Status Age at Mother Level of Service:[address] [place] OFFICE/OUTPATIENT ESTABLISHED LOW MDM 20 MIN Normal [facility] Basophils/100 WBC Manual cnt (Bld)on 04-25-2024 Basophils/100 WBC (Bld) 0.0 % Low 0.2-2.0 [facility] Eosinophils/100 WBC Manual c nt (Bld)on 04-25-2024 Eosinophils/100 WBC (Bld) 4.0 % 0.9-7.0 [facility] Erythrocyte distribution wid th Auto (RBC) [Ratio]on 04-25-2024 Erythrocyte distribution width (RBC) [Ratio] 14.7 % 11.0-15.0 [facility] Estimated glomerular filtrat ion rate (GFR) non- Americanon 04-25-2024 GFR/1.73 sq M.predicted among non-blacks MDRD (S/P/Bld) [Vol rate/Area] 42 mL/min/{1.73_m2} Low >=60 [facility] Globulin Calc (S) [Mass/Vol] on 04-25-2024 Globulin (S) [Mass/Vol] 3.4 g/dL [facility] Hematocrit Auto (Bld) [Volum e fraction]on 04-25-2024 Hematocrit (Bld) [Volume fraction] 43.1 % 36.0-48.0 [facility] Hemoglobin [Mass/volume] in Bloodon 04-25-2024 Hemoglobin (Bld) [Mass/Vol] 13.8 g/dL 12.0-16.0 [facility] INR in Platelet poor plasma by Coagulation assayon 04-25-2024 INR Coag (PPP) [Relative time] 1.31 {INR} [facility] Comment on above: DESIRED INR:2.0-3.0 CONDITIONS NOT LISTED BELOW2.5-3.5 FOR PROSTHETIC HEART VALVE REPLACEMENT2.5-3.5 RECURRENT THROMBOSIS Laboratory - Chemistry and C hemistry - challengeon 04-25-2024 Albumin [Mass/Vol] 4.0 g/dL 3.4-5.0 [facility] ALP [Catalytic activity/Vol] 63 U/L 46-116 [facility] ALT [Catalytic activity/Vol] 18 U/L 14-59 [facility] AST [Catalytic activity/Vol] 14 U/L Low 15-37 [facility] Bilirubin [Mass/Vol] 0.7 mg/dL 0.2-1.[address] [facility] Calcium [Mass/Vol] 9.6 mg/dL 8.5-10.1 [facility] Chloride [Moles/Vol] 104 mmol/L 98-[address] [facility] CO2 [Moles/Vol] 29.2 mmol/L 21.0-32.[address] [facility] Creatinine [Mass/Vol] 1.21 mg/dL High 0.55-1.02 [facility] GFR/1.73 sq M.predicted MDRD (S/P/Bld) [Vol rate/Area] 51 mL/min/{1.73_m2} Low >=60 [facility] Glucose [Mass/Vol] 136 mg/dL High 74-106 [facility] Natriuretic peptide B (Bld) [Mass/Vol] 201.0 pg/mL <=1800.0 [facility] Potassium [Moles/Vol] 3.9 mmol/L 3.5-5.1 [facility] Protein [Mass/Vol] 7.4 g/dL 6.4-8.2 [facility] Sodium [Moles/Vol] 139 mmol/L 136-145 [facility] Urea nitrogen [Mass/Vol] 27.0 mg/dL High 7.0-18.0 [facility] Urea nitrogen/Creatinine [Mass ratio] 22.3 mg/mg [facility] Laboratory - Hematology and Cell countson 04-25-2024 Band form neutrophils/100 WBC (Bld) 4.0 % 0-5 [facility] Lymphocytes/100 WBC (Bld) 15.0 % Low 20.5-60.0 [facility] Monocytes/100 WBC (Bld) 3.0 % 1.7-12.0 [facility] Leukocytes [#/volume] correc gely for nucleated erythrocytes in Blood by Automated counon 04-25-2024 WBC corrected for nucl RBC Auto (Bld) [#/Vol] 13.3 10 3/uL High 4.0-11.0 [facility] MCH Auto (RBC) [Entitic mass ]on 04-25-2024 MCH (RBC) [Entitic mass] 30.1 pg 26.7-34.0 [facility] MCHC Auto (RBC) [Mass/Vol]on 04-25-2024 MCHC (RBC) [Mass/Vol] 32.0 g/dL 29.9-35.2 [facility] MCV Auto (RBC) [Entitic vol] on 04-25-2024 MCV (RBC) [Entitic vol] 93.9 fL 81.0-99.0 [facility] No Panel Informationon 04-25 Troponin I High Sensitivity 6.5 pg/mL 4.0-51.3 [facility] Comment on above: CUT-OFF POINTS [...] Absolute Basophils (Manual) 0.00 10 3/uL 0.00-0.10 [facility] Band Neutrophils # (Manual) 0.5 10 3/uL High 0.0-0.3 [facility] Eosinophils # (Manual) 0.53 10 3/uL 0.00-0.70 [facility] Lymphocytes # (Manual) 1.99 10 3/uL 1.20-3.80 [facility] Monocytes # (Manual) 0.39 10 3/uL 0.30-0.80 [facility] Segmented Neutrophils # (Manual) 9.84 10 3/uL High 1.4-6.5 [facility] Platelet mean volume Auto (B ld) [Entitic vol]on 04-25-2024 Platelet mean volume (Bld) [Entitic vol] 10.4 fL 9.5-13.5 [facility] Platelets Auto (Bld) [#/Vol] on 04-25-2024 Platelets (Bld) [#/Vol] 145 10 3/uL Low 150-450 [facility] Prothrombin time (PT)on 04-08 PT Coag (PPP) [Time] 13.5 s High 9.0-11.[address] [facility] RBC Auto (Bld) [#/Vol]on RBC (Bld) [#/Vol] 4.59 10 6/uL 4.20-5.40 [facility] Segmented neutrophils/100 WB C Manual cnt (Bld)on 04-25-2024 Segmented neutrophils/100 WBC (Bld) 74.0 % [facility] Serum or plasma albumin/glob ulin mass ratioon 04-25-2024 Albumin/Globulin [Mass ratio] 1.2 {ratio} [facility] Serum or plasma anion gap de terminationon 04-25-2024 Anion gap [Moles/Vol] 9.7 mmol/L [facility] Office Visiton 03-28-2024 Follow-up visit [id number] Zoraida Gaytan 1935 F Date Provider Department Center 03/28/2024 AALIYAH HENDERSON CARD [facility] Family History Problem Relation Age of Onset Hypertension Mother Family Status - Relation Status Age at Mother Level of Service:[address]41 [place] OFFICE/OUTPATIENT ESTABLISHED LOW MDM 20 MIN Normal [facility] Basophils Auto (Bld) [#/Vol] on 12-28-2023 Basophils (Bld) [#/Vol] 0.2 10 3/uL 0.0-0.1 [facility] Basophils/100 WBC Auto (Bld) on 12-28-2023 Basophils/100 WBC (Bld) 3.4 % 0.2-2.0 [facility] Eosinophils/100 WBC Auto (Bl d)on 12-28-2023 Eosinophils/100 WBC (Bld) 6.2 % 0.9-7.0 [facility] Erythrocyte distribution wid th Auto (RBC) [Ratio]on 12-28-2023 Erythrocyte distribution width (RBC) [Ratio] 14.8 % 11.0-15.0 [facility] Estimated glomerular filtrat ion rate (GFR) non- Americanon 12-28-2023 GFR/1.73 sq M.predicted among non-blacks MDRD (S/P/Bld) [Vol rate/Area] 46 mL/min/{1.73_m2} >=60 [facility] Hematocrit Auto (Bld) [Volum e fraction]on 12-28-2023 Hematocrit (Bld) [Volume fraction] 42.9 % 36.0-48.0 [facility] Hemoglobin [Mass/volume] in Bloodon 12-28-2023 Hemoglobin (Bld) [Mass/Vol] 13.7 g/dL 12.0-16.0 [facility] Laboratory - Chemistry and C hemistry - challengeon 12-28-2023 Calcium [Mass/Vol] 9.7 mg/dL 8.5-10.1 [facility] Chloride [Moles/Vol] 106 mmol/L 98-[address] [facility] CO2 [Moles/Vol] 26.1 mmol/L 21.0-32.[address] [facility] Creatinine [Mass/Vol] 1.11 mg/dL 0.55-1.02 [facility] GFR/1.73 sq M.predicted MDRD (S/P/Bld) [Vol rate/Area] 56 mL/min/{1.73_m2} >=60 [facility] Glucose [Mass/Vol] 108 mg/dL 74-106 [facility] Potassium [Moles/Vol] 3.8 mmol/L 3.5-5.1 [facility] Sodium [Moles/Vol] 139 mmol/L 136-145 [facility] Urea nitrogen [Mass/Vol] 22.0 mg/dL 7.0-18.0 [facility] Urea nitrogen/Creatinine [Mass ratio] 19.8 mg/mg [facility] Laboratory - Hematology and Cell countson 12-28-2023 Immature granulocytes/100 WBC (Bld) 0.5 % 0.0-0.5 [facility] Leukocytes [#/volume] correc gely for nucleated erythrocytes in Blood by Automated counon 12-28-2023 WBC corrected for nucl RBC Auto (Bld) [#/Vol] 6.0 10 3/uL 4.0-11.0 [facility] Lymphocytes Auto (Bld) [#/Vo l]on 12-28-2023 Lymphocytes (Bld) [#/Vol] 2.1 10 3/uL 1.2-3.8 [facility] Lymphocytes/100 WBC Auto (Bl d)on 12-28-2023 Lymphocytes/100 WBC (Bld) 34.9 % 20.5-60.0 [facility] MCH Auto (RBC) [Entitic mass ]on 12-28-2023 MCH (RBC) [Entitic mass] 30.0 pg 26.7-34.0 [facility] MCHC Auto (RBC) [Mass/Vol]on 12-28-2023 MCHC (RBC) [Mass/Vol] 31.9 g/dL 29.9-35.2 [facility] MCV Auto (RBC) [Entitic vol] on 12-28-2023 MCV (RBC) [Entitic vol] 93.9 fL 81.0-99.0 [facility] Monocytes Auto (Bld) [#/Vol] on 12-28-2023 Monocytes (Bld) [#/Vol] 0.9 10 3/uL 0.3-0.8 [facility] Monocytes/100 WBC Auto (Bld) on 12-28-2023 Monocytes/100 WBC (Bld) 15.1 % 1.7-12.0 [facility] Neutrophils Auto (Bld) [#/Vo l]on 12-28-2023 Neutrophils (Bld) [#/Vol] 2.4 10 3/uL 1.4-6.5 [facility] Neutrophils/100 WBC Auto (Bl d)on 12-28-2023 Neutrophils/100 WBC (Bld) 39.9 % 43.0-75.0 [facility] No Panel Informationon 12-27 Eosinophils # (Auto) 0.4 10 3/uL 0.0-0.7 [facility] Immature Granulocyte # (Auto) 0.03 10 3/uL 0.00-0.03 [facility] Troponin I High Sensitivity 6.6 pg/mL 4.0-51.3 [facility] Comment on above: CUT-OFF POINTS [...] volume (Bld) [Entitic vol] 10.8 fL 9.5-13.5 [facility] Platelets Auto (Bld) [#/Vol] on 12-28-2023 Platelets (Bld) [#/Vol] 142 10 3/uL 150-450 [facility] RBC Auto (Bld) [#/Vol]on RBC (Bld) [#/Vol] 4.57 10 6/uL 4.20-5.40 [facility] Serum or plasma anion gap de terminationon 12-28-2023 Anion gap [Moles/Vol] 10.7 mmol/L [facility] PROF CHEM 8 (BAS METB)on Anion gap [Moles/Vol] 12.5 mmol/L Normal [facility] Comment on above: Performed By: #### B MP #### [facility] [address] [address] [address] Arden Magallon Calcium [Mass/Vol] 10.0 mg/dL Normal 8.5-10.1 [facility] Comment on above: Performed By: #### B MP #### [facility] [address] [address] [address] Arden Magallon Chloride [Moles/Vol] 105 mmol/L Normal 98-107 [facility] Comment on above: Performed By: #### B MP #### [facility] [address] [address] [address] Arden Magallon CO2 [Moles/Vol] 29.9 mmol/L Normal 21.0-32.0 [facility] Comment on above: Performed By: #### B MP #### [facility] [address] [address] [address] Arden Magallon Creatinine [Mass/Vol] 1.26 mg/dL Critically high 0.55-1.02 [facility] Comment on above: Performed By: #### B MP #### [facility] [address] [address] [address] Arden Magallon EGFR-AF KITTITIAN 49 mL/min/1.73m2 Critically low >=60 [facility] Comment on above: Performed By: #### B MP #### [facility] [address] [address] [address] Arden Magallon EGFR-NON AF KITTITIAN 40 mL/min/1.73m2 Critically low >=60 [facility] Comment on above: Performed By: #### B MP #### [facility] [address] [address] [address] Arden Magallon Glucose [Mass/Vol] 108 mg/dL Critically high 74-106 [facility] Comment on above: Performed By: #### B MP #### [facility] [address] [address] [address] Arden Magallon Potassium [Moles/Vol] 3.4 mmol/L Critically low 3.5-5.1 [facility] Comment on above: Performed By: #### B MP #### [facility] [address] [address] [address] Arden Magallon Sodium [Moles/Vol] 144 mmol/L Normal 136-145 [facility] Comment on above: Performed By: #### B MP #### [facility] [address] [address] [address] Arden Magallon Urea nitrogen [Mass/Vol] 28.0 mg/dL Critically high 7.0-18.0 [facility] Comment on above: Performed By: #### B MP #### [facility] [address] [address] [address] Arden Magallon Urea nitrogen/Creatinine [Mass ratio] 22.2 mg/mg Normal [facility] Comment on above: Performed By: #### B MP #### [facility] [address] [address] [address] Arden Magallon CARDIAC CINDY 3-6on 2 CK [Catalytic activity/Vol] 27 U/L Normal 26-192 [facility] Comment on above: Performed By: #### B MP #### [facility] [address] [place] [address] Dr. Arden Magallon CK.MB [Mass/Vol] 0.84 ng/mL Normal <=3.60 [facility] Comment on above: Performed By: #### B MP #### [facility] [address] [place] [address] Dr. Arden Magallon HSTROP 12.4 pg/mL Normal 4.0-51.3 [facility] Comment on above: Result Comment: CUT- OFF POINTS HAVE BEEN ESTABLISHED BASED ON THE FOURTH UNIVERSAL DEFINITIONS OF MYOCARDIAL INFARCTION. THE UPPER REFERENCE LIMIT (URL) OF TROPONIN, DEFINED THE 99TH PERCENTILE OF cTnI DISTRIBUTION IN A REFERENCE POPULATION, HAS BEEN CONFIRMED THE DECISION THRESHOLD FOR MS DIAGNOSIS. Performed By: #### B MP #### [facility] [address] [place] [address] Dr. Arden Magallon CARDIAC CINDY ADMITon 022 CK [Catalytic activity/Vol] 42 U/L Normal 26-192 [facility] Comment on above: Performed By: #### B MP #### [facility] [address] [place] [address] Dr. Arden Magallon CK.MB [Mass/Vol] 0.82 ng/mL Normal <=3.60 [facility] Comment on above: Performed By: #### B MP #### [facility] [address] [place] [address] Dr. Arden Magallon HSTROP 9.8 pg/mL Normal 4.0-51.3 [facility] Comment on above: Result Comment: CUT- OFF POINTS HAVE BEEN ESTABLISHED BASED ON THE FOURTH UNIVERSAL DEFINITIONS OF MYOCARDIAL INFARCTION. THE UPPER REFERENCE LIMIT (URL) OF TROPONIN, DEFINED THE 99TH PERCENTILE OF cTnI DISTRIBUTION IN A REFERENCE POPULATION, HAS BEEN CONFIRMED THE DECISION THRESHOLD FOR MS DIAGNOSIS. Performed By: #### B MP #### [facility] [address] [place] [address] Dr. Arden Magallon IKE 50 ng/mL Normal 9-82 [facility] Comment on above: Performed By: #### B MP #### [facility] [address] [place] [address] Dr. Arden Magallon CBC AUTO DIFFon 12-23-2022 BASO # 0.2 103/ul Critically high 0.0-0.1 [facility] Comment on above: Performed By: #### C BC #### [facility] [address] [address] [address] Arden Magallon Basophils/100 WBC (Bld) 2.2 % Critically high 0.2-2.0 [facility] Comment on above: Performed By: #### C BC #### [facility] [address] [address] [address] Arden Magallon EO # 1.3 103/ul Critically high 0.0-0.7 [facility] Comment on above: Performed By: #### C BC #### [facility] [address] [place] [address] Dr. Arden Magallon Eosinophils/100 WBC (Bld) 16.5 % Critically high 0.9-7.0 [facility] Comment on above: Performed By: #### C BC #### [facility] [address] [address] [address] Arden Magallon Erythrocyte distribution width (RBC) [Ratio] 14.3 % Normal 11.0-15.0 [facility] Comment on above: Performed By: #### C BC #### [facility] [address] [place] [address] Dr. Arden Magallon Hematocrit (Bld) [Volume fraction] 38.3 % Normal 36.0-48.0 [facility] Comment on above: Performed By: #### C BC #### [facility] [address] [place] [address] Dr. Arden Magallon Hemoglobin (Bld) [Mass/Vol] 12.6 g/dL Normal 12.0-16.0 [facility] Comment on above: Performed By: #### C BC #### [facility] [address] [place] [address] Dr. Arden Magallon IG # 0.03 10e3/ul Normal 0.00-0.03 [facility] Comment on above: Performed By: #### C BC #### [facility] [address] [place] [address] Dr. Arden Magallon IG % 0.4 % Normal 0.0-0.5 [facility] Comment on above: Performed By: #### C BC #### [facility] [address] [place] [address] Dr. Arden Magallon LYMPH # 2.4 103/ul Normal 1.2-3.8 [facility] Comment on above: Performed By: #### C BC #### [facility] [address] [place] [address] Dr. Arden Magallon Lymphocytes/100 WBC (Bld) 30.0 % Normal 20.5-60.0 [facility] Comment on above: Performed By: #### C BC #### [facility] [address] [place] [address] Dr. Arden Magallon MANUAL DIFF REQ NO Normal [facility] Comment on above: Performed By: #### C BC #### [facility] [address] [place] [address] Dr. Arden Magallon MCH (RBC) [Entitic mass] 30.7 pg Normal 26.7-34.0 [facility] Comment on above: Performed By: #### C BC #### [facility] [address] [place] [address] Dr. Arden Magallon MCHC (RBC) [Mass/Vol] 32.9 g/dL Normal 29.9-35.2 [facility] Comment on above: Performed By: #### C BC #### [facility] [address] [place] [address] Dr. Arden Magallon MCV (RBC) [Entitic vol] 93.4 fL Normal 81.0-99.0 [facility] Comment on above: Performed By: #### C BC #### [facility] [address] [place] [address] Dr. Arden Magallon MONO # 1.1 103/ul Critically high 0.3-0.8 [facility] Comment on above: Performed By: #### C BC #### [facility] [address] [place] [address] Dr. Arden Magallon Monocytes/100 WBC (Bld) 14.2 % Critically high 1.7-12.0 [facility] Comment on above: Performed By: #### C BC #### [facility] [address] [place] [address] Dr. Arden Magallon NEUT # 2.9 103/ul Normal 1.4-6.5 [facility] Comment on above: Performed By: #### C BC #### [facility] [address] [place] [address] Dr. Arden Magallon Neutrophils/100 WBC (Bld) 36.7 % Critically low 43.0-75.0 [facility] Comment on above: Performed By: #### C BC #### [facility] [address] [place] [address] Dr. Arden Magallon Platelet mean volume (Bld) [Entitic vol] 11.4 fL Normal 9.5-13.5 [facility] Comment on above: Performed By: #### C BC #### [facility] [address] [place] [address] Dr. Arden Magallon PLT 162 103/ul Normal 150-450 [facility] Comment on above: Performed By: #### C BC #### [facility] [address] [place] [address] Dr. Arden Magallon RBC 4.10 106/ul Critically low 4.20-5.40 [facility] Comment on above: Performed By: #### C BC #### [facility] [address] [place] [address] Dr. Arden Magallon WBC 8.0 103/ul Normal 4.0-11.0 [facility] Comment on above: Performed By: #### C BC #### [facility] [address] [place] [address] Dr. Arden Magallon PROF CHEM 8 (BAS METB)on Anion gap [Moles/Vol] 11.8 mmol/L Normal [facility] Comment on above: Performed By: #### B MP #### [facility] [address] [place] [address] Dr. Arden Magallon Calcium [Mass/Vol] 9.7 mg/dL Normal 8.5-10.1 [facility] Comment on above: Performed By: #### B MP #### [facility] [address] [address] [address] Arden Magallon Chloride [Moles/Vol] 105 mmol/L Normal 98-107 [facility] Comment on above: Performed By: #### B MP #### [facility] [address] [address] [address] Arden Magallon CO2 [Moles/Vol] 25.0 mmol/L Normal 21.0-32.0 [facility] Comment on above: Performed By: #### B MP #### [facility] [address] [address] [address] Arden Magallon Creatinine [Mass/Vol] 1.07 mg/dL Critically high 0.55-1.02 [facility] Comment on above: Performed By: #### B MP #### [facility] [address] [address] [address] Arden Magallon EGFR-AF KITTITIAN 59 mL/min/1.73m2 Critically low >=60 [facility] Comment on above: Performed By: #### B MP #### [facility] [address] [address] [address] Arden Magallon EGFR-NON AF [place]ITT[place]IAN 49 mL/min/1.73m2 Critically low >=60 [facility] Comment on above: Performed By: #### B MP #### [facility] [address] [address] [address] Arden Magallon Glucose [Mass/Vol] 106 mg/dL Normal 74-106 [facility] Comment on above: Performed By: #### B MP #### [facility] [address] [address] [address] Arden aMgallon Potassium [Moles/Vol] 3.8 mmol/L Normal 3.5-5.1 [facility] Comment on above: Performed By: #### B MP #### [facility] [address] [address] [address] Arden Magallon Sodium [Moles/Vol] 138 mmol/L Normal 136-145 [facility] Comment on above: Performed By: #### B MP #### [facility] [address] [place] [address] Dr. Arden Magallon Urea nitrogen [Mass/Vol] 18.0 mg/dL Normal 7.0-18.0 [facility] Comment on above: Performed By: #### B MP #### [facility] [address] [place] [address] Dr. Arden Magallon Urea nitrogen/Creatinine [Mass ratio] 16.8 mg/mg Normal [facility] Comment on above: Performed By: #### B MP #### [facility] [address] [place] [address] Dr. Arden Magallon CBC AUTO DIFFon 09-26-2022 BASO # 0.2 103/ul Critically high 0.0-0.1 [facility] Comment on above: Performed By: #### C BC #### [facility] [address] [place] [address] Dr. Arden Magallon Basophils/100 WBC (Bld) 2.1 % Critically high 0.2-2.0 [facility] Comment on above: Performed By: #### C BC #### [facility] [address] [place] [address] Dr. Arden Magallon EO # 1.5 103/ul Critically high 0.0-0.7 [facility] Comment on above: Performed By: #### C BC #### [facility] [address] [place] [address] Dr. Arden Magallon Eosinophils/100 WBC (Bld) 16.6 % Critically high 0.9-7.0 [facility] Comment on above: Performed By: #### C BC #### [facility] [address] [place] [address] Dr. Arden Magallon Erythrocyte distribution width (RBC) [Ratio] 14.1 % Normal 11.0-15.0 [facility] Comment on above: Performed By: #### C BC #### [facility] [address] [place] [address] Dr. Arden Magallon Hematocrit (Bld) [Volume fraction] 37.7 % Normal 36.0-48.0 [facility] Comment on above: Performed By: #### C BC #### [facility] [address] [place] [address] Dr. Arden Magallon Hemoglobin (Bld) [Mass/Vol] 12.5 g/dL Normal 12.0-16.0 [facility] Comment on above: Performed By: #### C BC #### [facility] [address] [address] [address] Arden Magallon IG # 0.04 10e3/ul Critically high 0.00-0.03 [facility] Comment on above: Performed By: #### C BC #### [facility] [address] [place] [address] Dr. Arden Magallon IG % 0.4 % Normal 0.0-0.5 [facility] Comment on above: Performed By: #### C BC #### [facility] [address] [place] [address] Dr. Arden Magallon LYMPH # 1.8 103/ul Normal 1.2-3.8 [facility] Comment on above: Performed By: #### C BC #### [facility] [address] [place] [address] Dr. Arden Magallon Lymphocytes/100 WBC (Bld) 19.6 % Critically low 20.5-60.0 [facility] Comment on above: Performed By: #### C BC #### [facility] [address] [place] [address] Dr. Arden Magallon MANUAL DIFF REQ NO Normal [facility] Comment on above: Performed By: #### C BC #### [facility] [address] [place] [address] Dr. Arden Magallon MCH (RBC) [Entitic mass] 31.1 pg Normal 26.7-34.0 [facility] Comment on above: Performed By: #### C BC #### [facility] [address] [place] [address] Dr. Arden Magallon MCHC (RBC) [Mass/Vol] 33.2 g/dL Normal 29.9-35.2 [facility] Comment on above: Performed By: #### C BC #### [facility] [address] [place] [address] Dr. Arden Magallon MCV (RBC) [Entitic vol] 93.8 fL Normal 81.0-99.0 [facility] Comment on above: Performed By: #### C BC #### [facility] [address] [place] [address] Dr. Arden Magallon MONO # 1.1 103/ul Critically high 0.3-0.8 [facility] Comment on above: Performed By: #### C BC #### [facility] [address] [place] [address] Dr. Arden Magallon Monocytes/100 WBC (Bld) 12.1 % Critically high 1.7-12.0 [facility] Comment on above: Performed By: #### C BC #### [facility] [address] [place] [address] Dr. Arden Magallon NEUT # 4.6 103/ul Normal 1.4-6.5 [facility] Comment on above: Performed By: #### C BC #### [facility] [address] [place] [address] Dr. Arden Magallon Neutrophils/100 WBC (Bld) 49.2 % Normal 43.0-75.0 [facility] Comment on above: Performed By: #### C BC #### [facility] [address] [place] [address] Dr. Arden Magallon Platelet mean volume (Bld) [Entitic vol] 10.8 fL Normal 9.5-13.5 [facility] Comment on above: Performed By: #### C BC #### [facility] [address] [place] [address] Dr. Arden Magallon PLT 149 103/ul Critically low 150-450 [facility] Comment on above: Performed By: #### C BC #### [facility] [address] [place] [address] Dr. Arden Magallon RBC 4.02 106/ul Critically low 4.20-5.40 [facility] Comment on above: Performed By: #### C BC #### [facility] [address] [place], [place] [address] Dr. Arden Magallon WBC 9.3 103/ul Normal 4.0-11.0 [facility] Comment on above: Performed By: #### C BC #### [facility] [address] [place], [place] [address] Dr. Arden Magallon Covid-19 PCR ([facility])on 09-08 SARS-CoV-2 (COVID-19) RNA ISABELLA+probe Ql (Unsp spec) Not detected Normal NOT DETECTED [facility] Comment on above: Result Comment: This test is not yet approved or cleared by the [place] FDA. When there are no FDA-approved or cleared tests available, and other criteria are met, FDA can make tests available under an emergency access mechanism called an Emergency Use Authorization (EUA). The EUA for this test is supported by the [place] of Health and Human Service's (HHS's) declaration [...] SARS-CoV-2. Performed By: #### C BC #### [facility] [address] [place] [address] [id number] [address] Arden Magallon INFLUENZA A AND B AGon 09-26 INFLUANEGH SEE BELOW Normal [facility] Comment on above: Result Comment: Nega tive for Flu A protein angiten. Infection due to Flu A cannot be ruled out. Flu A angiten in the sample may be below the detection limit of the test. Performed By: #### C BC #### [facility] [address] [place], [place] [address] Dr. Arden Magallon INFLUBNEGH SEE BELOW Normal [facility] Comment on above: Result Comment: Nega tive for Flu B protein antigen. Infection due to Flu B cannot be ruled out. Flu B antigen in the sample may be below the detection limit of the test. Performed By: #### C BC #### [facility] [address] [place] [address] Dr. Arden Magallon INFLUENZA A AG Negative Normal NEGATIVE SEE COMMENT [facility] Comment on above: Performed By: #### C BC #### [facility] [address] [place] [address] Dr. Arden Magallon INFLUENZA B AG Negative Normal NEGATIVE SEE COMMENT [facility] Comment on above: Performed By: #### C BC #### [facility] [address] [place] [address] Dr. Arden Magallon INTERNAL CONTROLS Within Normal Limits Normal Wi thin Normal Limits [facility] Comment on above: Performed By: #### C BC #### [facility] [address] [place] [address] Dr. Arden Magallon PROF CHEM 8 (BAS METB)on Anion gap [Moles/Vol] 10.8 mmol/L Normal [facility] Comment on above: Performed By: #### P T, DDIM #### [facility] [address] [place] [address] Dr. Arden Magallon Calcium [Mass/Vol] 9.3 mg/dL Normal 8.5-10.1 [facility] Comment on above: Performed By: #### P T, DDIM #### [facility] [address] [place] [address] Dr. Arden Magallon Chloride [Moles/Vol] 107 mmol/L Normal 98-107 [facility] Comment on above: Performed By: #### P T, DDIM #### [facility] [address] [place] [address] Dr. Arden Magallon CO2 [Moles/Vol] 28.0 mmol/L Normal 21.0-32.0 [facility] Comment on above: Performed By: #### P T, DDIM #### [facility] [address] [place], [place] [id number] Dr. Arden Magallon Creatinine [Mass/Vol] 0.98 mg/dL Normal 0.55-1.02 [facility] Comment on above: Performed By: #### P T, DDIM #### [facility] [address] [place] [address] Dr. Arden Magallon EGFR-AF KITTITIAN >60 Normal >=60 [facility] Comment on above: Performed By: #### P T, DDIM #### [facility] [address] [address] [address] Arden Magallon EGFR-NON AF KITTITIAN 54 mL/min/1.73m2 Critically low >=60 [facility] Comment on above: Performed By: #### P T, DDIM #### [facility] [address] [place] [address] Dr. Arden Magallon Glucose [Mass/Vol] 111 mg/dL Critically high 74-106 [facility] Comment on above: Performed By: #### P T, DDIM #### [facility] [address] [place] [address] Dr. Arden Magallon Potassium [Moles/Vol] 3.8 mmol/L Normal 3.5-5.1 [facility] Comment on above: Performed By: #### P T, DDIM #### [facility] [address] [place] [address] Dr. Arden Magallon Sodium [Moles/Vol] 142 mmol/L Normal 136-145 [facility] Comment on above: Performed By: #### P T, DDIM #### [facility] [address] [place] [address] Dr. Arden Magallon Urea nitrogen [Mass/Vol] 15.0 mg/dL Normal 7.0-18.0 [facility] Comment on above: Performed By: #### P T, DDIM #### [facility] [address] [place] [address] Dr. Arden Magallon Urea nitrogen/Creatinine [Mass ratio] 15.3 mg/mg Normal [facility] Comment on above: Performed By: #### P T, DDIM #### [facility] [address] [address] [address] Arden Magallon XR CHEST 1 Von [...] HARJINDER RAMIREZ Date: 2022-09-26 10:22 Normal [facility] CBC AUTO DIFFon 09-21-2022 BASO # 0.2 103/ul Critically high 0.0-0.1 [facility] Comment on above: Performed By: #### C BC #### [facility] [address] [address] [address] Arden Magallon Basophils/100 WBC (Bld) 2.0 % Normal 0.2-2.0 [facility] Comment on above: Performed By: #### C BC #### [facility] [address] [address] [address] Arden Mgaallon EO # 0.8 103/ul Critically high 0.0-0.7 [facility] Comment on above: Performed By: #### C BC #### [facility] [address] [address] [address] Arden Magallon Eosinophils/100 WBC (Bld) 9.7 % Critically high 0.9-7.0 [facility] Comment on above: Performed By: #### C BC #### [facility] [address] [address] [address] Arden Magallon Erythrocyte distribution width (RBC) [Ratio] 14.2 % Normal 11.0-15.0 [facility] Comment on above: Performed By: #### C BC #### [facility] [address] [address] [address] Arden Magallon Hematocrit (Bld) [Volume fraction] 39.2 % Normal 36.0-48.0 [facility] Comment on above: Performed By: #### C BC #### [facility] [address] [place] [address] Dr. Arden Magallon Hemoglobin (Bld) [Mass/Vol] 12.7 g/dL Normal 12.0-16.0 [facility] Comment on above: Performed By: #### C BC #### [facility] [address] [place] [address] Dr. Arden Magallon IG # 0.04 10e3/ul Critically high 0.00-0.03 [facility] Comment on above: Performed By: #### C BC #### [facility] [address] [place] [address] Dr. Arden Magallon IG % 0.5 % Normal 0.0-0.5 [facility] Comment on above: Performed By: #### C BC #### [facility] [address] [place] [address] Dr. Arden Magallon LYMPH # 1.7 103/ul Normal 1.2-3.8 [facility] Comment on above: Performed By: #### C BC #### [facility] [address] [place] [address] Dr. Arden Magallon Lymphocytes/100 WBC (Bld) 19.2 % Critically low 20.5-60.0 [facility] Comment on above: Performed By: #### C BC #### [facility] [address] [place] [address] Dr. Arden Magallon MANUAL DIFF REQ NO Normal [facility] Comment on above: Performed By: #### C BC #### [facility] [address] [place] [address] Dr. Arden Magallon MCH (RBC) [Entitic mass] 31.1 pg Normal 26.7-34.0 [facility] Comment on above: Performed By: #### C BC #### [facility] [address] [place] [address] Dr. Arden Magallon MCHC (RBC) [Mass/Vol] 32.4 g/dL Normal 29.9-35.2 [facility] Comment on above: Performed By: #### C BC #### [facility] [address] [address] [address] Arden Magallon MCV (RBC) [Entitic vol] 96.1 fL Normal 81.0-99.0 [facility] Comment on above: Performed By: #### C BC #### [facility] [address] [address] [address] Arden Magallon MONO # 0.8 103/ul Normal 0.3-0.8 [facility] Comment on above: Performed By: #### C BC #### [facility] [address] [place] [address] Dr. Arden Magallon Monocytes/100 WBC (Bld) 9.5 % Normal 1.7-12.0 [facility] Comment on above: Performed By: #### C BC #### [facility] [address] [place] [address] Dr. Arden Magallon NEUT # 5.2 103/ul Normal 1.4-6.5 [facility] Comment on above: Performed By: #### C BC #### [facility] [address] [place] [address] Dr. Arden Magallon Neutrophils/100 WBC (Bld) 59.1 % Normal 43.0-75.0 [facility] Comment on above: Performed By: #### C BC #### [facility] [address] [address] [address] Arden Magallon Platelet mean volume (Bld) [Entitic vol] 11.0 fL Normal 9.5-13.5 [facility] Comment on above: Performed By: #### C BC #### [facility] [address] [address] [address] Arden Magallon PLT 167 103/ul Normal 150-450 [facility] Comment on above: Performed By: #### C BC #### [facility] [address] [place] [address] Dr. Arden Magallon RBC 4.08 106/ul Critically low 4.20-5.40 [facility] Comment on above: Performed By: #### C BC #### [facility] [address] [address] [address] Arden Magallon WBC 8.7 103/ul Normal 4.0-11.0 [facility] Comment on above: Performed By: #### C BC #### [facility] [address] [address] [address] Arden Magallon PROF CHEM 8 (BAS METB)on Anion gap [Moles/Vol] 10.4 mmol/L Normal [facility] Comment on above: Performed By: #### B MP #### [facility] [address] [address] [address] Arden Magallon Calcium [Mass/Vol] 9.9 mg/dL Normal 8.5-10.1 [facility] Comment on above: Performed By: #### B MP #### [facility] [address] [address] [address] Arden Magallon Chloride [Moles/Vol] 104 mmol/L Normal 98-107 [facility] Comment on above: Performed By: #### B MP #### [facility] [address] [address] [address] Arden Magallon CO2 [Moles/Vol] 28.0 mmol/L Normal 21.0-32.0 [facility] Comment on above: Performed By: #### B MP #### [facility] [address] [address] [address] Arden Magallon Creatinine [Mass/Vol] 1.20 mg/dL Critically high 0.55-1.02 [facility] Comment on above: Performed By: #### B MP #### [facility] [address] [address] [address] Arden Magallon EGFR-AF KITTITIAN 52 mL/min/1.73m2 Critically low >=60 [facility] Comment on above: Performed By: #### B MP #### [facility] [address] [address] [address] Arden Magallon EGFR-NON AF KITT[place]IAN 43 mL/min/1.73m2 Critically low >=60 [facility] Comment on above: Performed By: #### B MP #### [facility] [address] [address] [address] Arden Magallon Glucose [Mass/Vol] 133 mg/dL Critically high 74-106 [facility] Comment on above: Performed By: #### B MP #### [facility] [address] [address] [address] Arden Magallon Potassium [Moles/Vol] 3.4 mmol/L Critically low 3.5-5.1 [facility] Comment on above: Performed By: #### B MP #### [facility] [address] [address] [address] Arden Magallon Sodium [Moles/Vol] 139 mmol/L Normal 136-145 [facility] Comment on above: Performed By: #### B MP #### [facility] [address] [place] [address] Dr. Arden Magallon Urea nitrogen [Mass/Vol] 19.0 mg/dL Critically high 7.0-18.0 [facility] Comment on above: Performed By: #### B MP #### [facility] [address] [address] [address] Arden Magallon Urea nitrogen/Creatinine [Mass ratio] 15.8 mg/mg Normal [facility] Comment on above: Performed By: #### B MP #### [facility] [address] [address] [address] Arden Magallon TSHon 09-21-2022 TSH 1.918 uIU/mL Normal 0.358-3.740 [facility] Comment on above: Performed By: #### B MP #### [facility] [address] [address] [address] Arden Magallon BNPon 09-18-2022 Natriuretic peptide B (Bld) [Mass/Vol] 366.0 pg/mL Normal <=1,800.0 [facility] Comment on above: Performed By: #### B GUM MACHINE FILLER, CMP #### [facility] [address] [place] [address] Dr. Arden Magallon CBC AUTO DIFFon 09-18-2022 BASO # 0.1 103/ul Normal 0.0-0.1 [facility] Comment on above: Performed By: #### C BC #### [facility] [address] [place] [address] Dr. Arden Magallon Basophils/100 WBC (Bld) 1.7 % Normal 0.2-2.0 [facility] Comment on above: Performed By: #### C BC #### [facility] [address] [place] [address] Dr. Arden Magallon EO # 0.7 103/ul Normal 0.0-0.7 [facility] Comment on above: Performed By: #### C BC #### [facility] [address] [place] [address] Dr. Arden Magallon Eosinophils/100 WBC (Bld) 9.1 % Critically high 0.9-7.0 [facility] Comment on above: Performed By: #### C BC #### [facility] [address] [place] [address] Dr. Arden Magallon Erythrocyte distribution width (RBC) [Ratio] 14.4 % Normal 11.0-15.0 [facility] Comment on above: Performed By: #### C BC #### [facility] [address] [place] [address] Dr. Arden Magallon Hematocrit (Bld) [Volume fraction] 39.0 % Normal 36.0-48.0 [facility] Comment on above: Performed By: #### C BC #### [facility] [address] [place] [address] Dr. Ardne Magallon Hemoglobin (Bld) [Mass/Vol] 12.8 g/dL Normal 12.0-16.0 [facility] Comment on above: Performed By: #### C BC #### [facility] [address] [place] [address] Dr. Arden Magallon IG # 0.02 10e3/ul Normal 0.00-0.03 [facility] Comment on above: Performed By: #### C BC #### [facility] [address] [place] [address] Dr. Arden Magallon IG % 0.3 % Normal 0.0-0.5 [facility] Comment on above: Performed By: #### C BC #### [facility] [address] [place] [address] Dr. Arden Magallon LYMPH # 1.8 103/ul Normal 1.2-3.8 [facility] Comment on above: Performed By: #### C BC #### [facility] [address] [place] [address] Dr. Arden Magallon Lymphocytes/100 WBC (Bld) 23.6 % Normal 20.5-60.0 [facility] Comment on above: Performed By: #### C BC #### [facility] [address] [place] [address] Dr. Arden Magallon MANUAL DIFF REQ NO Normal [facility] Comment on above: Performed By: #### C BC #### [facility] [address] [place] [address] Dr. Arden Magallon MCH (RBC) [Entitic mass] 31.0 pg Normal 26.7-34.0 [facility] Comment on above: Performed By: #### C BC #### [facility] [address] [place] [address] Dr. Arden Magallon MCHC (RBC) [Mass/Vol] 32.8 g/dL Normal 29.9-35.2 [facility] Comment on above: Performed By: #### C BC #### [facility] [address] [place] [address] Dr. Arden Magallon MCV (RBC) [Entitic vol] 94.4 fL Normal 81.0-99.0 [facility] Comment on above: Performed By: #### C BC #### [facility] [address] [place] [address] Dr. Arden Magallon MONO # 1.1 103/ul Critically high 0.3-0.8 [facility] Comment on above: Performed By: #### C BC #### [facility] [address] [place] [address] Dr. Arden Magallon Monocytes/100 WBC (Bld) 15.2 % Critically high 1.7-12.0 [facility] Comment on above: Performed By: #### C BC #### [facility] [address] [place] [address] Dr. Arden Magallon NEUT # 3.8 103/ul Normal 1.4-6.5 [facility] Comment on above: Performed By: #### C BC #### [facility] [address] [place] [address] Dr. Arden Magallon Neutrophils/100 WBC (Bld) 50.1 % Normal 43.0-75.0 [facility] Comment on above: Performed By: #### C BC #### [facility] [address] [place] [address] Dr. Arden Magallon Platelet mean volume (Bld) [Entitic vol] 11.0 fL Normal 9.5-13.5 [facility] Comment on above: Performed By: #### C BC #### [facility] [address] [place] [address] Dr. Arden Magallon PLT 149 103/ul Critically low 150-450 [facility] Comment on above: Performed By: #### C BC #### [facility] [address] [place] [address] Dr. Arden Magallon RBC 4.13 106/ul Critically low 4.20-5.40 [facility] Comment on above: Performed By: #### C BC #### [facility] [address] [place] [address] Dr. Arden Magallon WBC 7.5 103/ul Normal 4.0-11.0 [facility] Comment on above: Performed By: #### C BC #### [facility] [address] [place] [address] Dr. Arden Magallon D-DIMERon 09-18-2022 D-DIMER 0.32 mg/L FEU Normal <=0.59 [facility] Comment on above: Performed By: #### P T, DDIM #### [facility] [address] [place] [address] Dr. Arden Magallon D-DIMER COMMENTS SEE BELOW Normal [facility] Comment on above: Result Comment: Incr eases [...] Performed By: #### P T, DDIM #### [facility] [address] [place] [address] Dr. Arden Magallon PROF 14(COMP METB)on 022 Albumin [Mass/Vol] 3.5 g/dL Normal 3.4-5.0 [facility] Comment on above: Performed By: #### B GUM MACHINE FILLER, CMP #### [facility] [address] [place] [address] Dr. Arden Magallon Albumin/Globulin [Mass ratio] 1.2 {ratio} Normal [facility] Comment on above: Performed By: #### B GUM MACHINE FILLER, CMP #### [facility] [address] [place] [address] Dr. Arden Magallon ALP [Catalytic activity/Vol] 57 U/L Normal 46-116 [facility] Comment on above: Performed By: #### B GUM MACHINE FILLER, CMP #### [facility] [address] [place] [address] Dr. Arden Magallon ALT [Catalytic activity/Vol] 16 U/L Normal 14-59 [facility] Comment on above: Performed By: #### B GUM MACHINE FILLER, CMP #### [facility] [address] [place] [address] Dr. Arden Magallon Anion gap [Moles/Vol] 9.1 mmol/L Normal [facility] Comment on above: Performed By: #### B GUM MACHINE FILLER, CMP #### [facility] [address] [place] [address] Dr. Arden Magallon AST [Catalytic activity/Vol] 17 U/L Normal 15-37 [facility] Comment on above: Performed By: #### B GUM MACHINE FILLER, CMP #### [facility] [address] [address] [address] Arden Magallon Bilirubin [Mass/Vol] 0.3 mg/dL Normal 0.2-1.0 [facility] Comment on above: Performed By: #### B GUM MACHINE FILLER, CMP #### [facility] [address] [address] [address] Arden Magallon Calcium [Mass/Vol] 9.6 mg/dL Normal 8.5-10.1 [facility] Comment on above: Performed By: #### B GUM MACHINE FILLER, CMP #### [facility] [address] [place] [address] Dr. Arden Magallon Chloride [Moles/Vol] 106 mmol/L Normal 98-107 [facility] Comment on above: Performed By: #### B GUM MACHINE FILLER, CMP #### [facility] [address] [place] [address] Dr. Arden Magallon CO2 [Moles/Vol] 24.9 mmol/L Normal 21.0-32.0 [facility] Comment on above: Performed By: #### B GUM MACHINE FILLER, CMP #### [facility] [address] [place] [address] Dr. Arden Magallon Creatinine [Mass/Vol] 1.06 mg/dL Critically high 0.55-1.02 [facility] Comment on above: Performed By: #### B GUM MACHINE FILLER, CMP #### [facility] [address] [place] [address] Dr. Arden Magallon EGFR-AF KITTITIAN =60 Normal >=60 [facility] Comment on above: Performed By: #### B GUM MACHINE FILLER, CMP #### [facility] [address] [place] [address] Dr. Arden Magallon EGFR-NON AF KITTITIAN 49 mL/min/1.73m2 Critically low >=60 [facility] Comment on above: Performed By: #### B GUM MACHINE FILLER, CMP #### [facility] [address] [place] [address] Dr. Arden Magallon Globulin (S) [Mass/Vol] 3.0 g/dL Normal [facility] Comment on above: Performed By: #### B GUM MACHINE FILLER, CMP #### [facility] [address] [address] [address] Arden Magallon Glucose [Mass/Vol] 111 mg/dL Critically high 74-106 [facility] Comment on above: Performed By: #### B GUM MACHINE FILLER, CMP #### [facility] [address] [address] [address] Arden Magallon Potassium [Moles/Vol] 4.0 mmol/L Normal 3.5-5.1 [facility] Comment on above: Performed By: #### B GUM MACHINE FILLER, CMP #### [facility] [address] [address] [address] Arden Magallon Protein [Mass/Vol] 6.5 g/dL Normal 6.4-8.2 [facility] Comment on above: Performed By: #### B GUM MACHINE FILLER, CMP #### [facility] [address] [place] [address] Dr. Arden Magallon Sodium [Moles/Vol] 136 mmol/L Normal 136-145 [facility] Comment on above: Performed By: #### B GUM MACHINE FILLER, CMP #### [facility] [address] [place] [address] Dr. Arden Magallon Urea nitrogen [Mass/Vol] 16.0 mg/dL Normal 7.0-18.0 [facility] Comment on above: Performed By: #### B GUM MACHINE FILLER, CMP #### [facility] [address] [place] [address] Dr. Arden Magallon Urea nitrogen/Creatinine [Mass ratio] 15.1 mg/mg Normal [facility] Comment on above: Performed By: #### B GUM MACHINE FILLER, CMP #### [facility] [address] [place] [address] Dr. Arden Magallon TROPONIN, HIGH SENSITIVITYon 09-18-2022 HSTROP 8.3 pg/mL Normal 4.0-51.3 [facility] Comment on above: Result Comment: CUT- OFF POINTS HAVE BEEN ESTABLISHED BASED ON THE FOURTH UNIVERSAL DEFINITIONS OF MYOCARDIAL INFARCTION. THE UPPER REFERENCE LIMIT (URL) OF TROPONIN, DEFINED THE 99TH PERCENTILE OF cTnI DISTRIBUTION IN A REFERENCE POPULATION, HAS BEEN CONFIRMED THE DECISION THRESHOLD FOR MS DIAGNOSIS. Performed By: #### B GUM MACHINE FILLER, CMP #### [facility] [address] [address] [address] Arden Magallon XR CHEST 1 Von [...] BERNIE NAVARRO Date: 2022-09-18 16:11 Normal [facility] CBC AUTO DIFFon 09-11-2022 BASO # 0.1 103/ul Normal 0.0-0.1 [facility] Comment on above: Performed By: #### B MP #### [facility] [address] [place] [address] Dr. Arden Magallon Basophils/100 WBC (Bld) 2.3 % Critically high 0.2-2.0 [facility] Comment on above: Performed By: #### B MP #### [facility] [address] [address] [address] Arden Magallon EO # 0.5 103/ul Normal 0.0-0.7 [facility] Comment on above: Performed By: #### B MP #### [facility] [address] [place] [address] Dr. Arden Magallon Eosinophils/100 WBC (Bld) 8.0 % Critically high 0.9-7.0 [facility] Comment on above: Performed By: #### B MP #### [facility] [address] [place] [address] Dr. Arden Magallon Erythrocyte distribution width (RBC) [Ratio] 13.8 % Normal 11.0-15.0 [facility] Comment on above: Performed By: #### B MP #### [facility] [address] [place] [address] Dr. Arden Magallon Hematocrit (Bld) [Volume fraction] 40.5 % Normal 36.0-48.0 [facility] Comment on above: Performed By: #### B MP #### [facility] [address] [place] [address] Dr. Arden Magallon Hemoglobin (Bld) [Mass/Vol] 13.5 g/dL Normal 12.0-16.0 [facility] Comment on above: Performed By: #### B MP #### [facility] [address] [place] [address] Dr. Arden Magallon IG # 0.01 10e3/ul Normal 0.00-0.03 [facility] Comment on above: Performed By: #### B MP #### [facility] [address] [place] [address] Dr. Arden Magallon IG % 0.2 % Normal 0.0-0.5 [facility] Comment on above: Performed By: #### B MP #### [facility] [address] [place] [address] Dr. Arden Magallon LYMPH # 1.5 103/ul Normal 1.2-3.8 [facility] Comment on above: Performed By: #### B MP #### [facility] [address] [place] [address] Dr. Arden Magallon Lymphocytes/100 WBC (Bld) 24.9 % Normal 20.5-60.0 [facility] Comment on above: Performed By: #### B MP #### [facility] [address] [place] [address] Dr. Arden Magallon MANUAL DIFF REQ NO Normal [facility] Comment on above: Performed By: #### B MP #### [facility] [address] [place] [address] Dr. Arden Magallon MCH (RBC) [Entitic mass] 31.1 pg Normal 26.7-34.0 [facility] Comment on above: Performed By: #### B MP #### [facility] [address] [place] [address] Dr. Arden Magallon MCHC (RBC) [Mass/Vol] 33.3 g/dL Normal 29.9-35.2 [facility] Comment on above: Performed By: #### B MP #### [facility] [address] [place] [address] Dr. Arden Magallon MCV (RBC) [Entitic vol] 93.3 fL Normal 81.0-99.0 [facility] Comment on above: Performed By: #### B MP #### [facility] [address] [place] [address] Dr. Arden Magallon MONO # 1.0 103/ul Critically high 0.3-0.8 [facility] Comment on above: Performed By: #### B MP #### [facility] [address] [place] [address] Dr. Arden Magallon Monocytes/100 WBC (Bld) 16.0 % Critically high 1.7-12.0 [facility] Comment on above: Performed By: #### B MP #### [facility] [address] [place] [address] Dr. Arden Magallon NEUT # 2.9 103/ul Normal 1.4-6.5 [facility] Comment on above: Performed By: #### B MP #### [facility] [address] [place] [address] Dr. Arden Magallon Neutrophils/100 WBC (Bld) 48.6 % Normal 43.0-75.0 [facility] Comment on above: Performed By: #### B MP #### [facility] [address] [place] [address] Dr. Arden Magallon Platelet mean volume (Bld) [Entitic vol] 10.8 fL Normal 9.5-13.5 [facility] Comment on above: Performed By: #### B MP #### [facility] [address] [place] [address] Dr. Arden Magallon PLT 138 103/ul Critically low 150-450 [facility] Comment on above: Performed By: #### B MP #### [facility] [address] [place] [address] Dr. Arden Magallon RBC 4.34 106/ul Normal 4.20-5.40 [facility] Comment on above: Performed By: #### B MP #### [facility] [address] [place] [address] Dr. Arden Magallon WBC 6.0 103/ul Normal 4.0-11.0 [facility] Comment on above: Performed By: #### B MP #### [facility] [address] [place] [address] Dr. Arden Magallon PROF CHEM 8 (BAS METB)on Anion gap [Moles/Vol] 9.0 mmol/L Normal [facility] Comment on above: Performed By: #### P T, DDIM #### [facility] [address] [place] [address] Dr. Arden Magallon Calcium [Mass/Vol] 9.6 mg/dL Normal 8.5-10.1 [facility] Comment on above: Performed By: #### P T, DDIM #### [facility] [address] [place] [address] Dr. Arden Magallon Chloride [Moles/Vol] 105 mmol/L Normal 98-107 [facility] Comment on above: Performed By: #### P T, DDIM #### [facility] [address] [place] [address] Dr. Arden Magallon CO2 [Moles/Vol] 29.1 mmol/L Normal 21.0-32.0 [facility] Comment on above: Performed By: #### P T, DDIM #### [facility] [address] [place] [address] Dr. Arden Magallon Creatinine [Mass/Vol] 1.00 mg/dL Normal 0.55-1.02 [facility] Comment on above: Performed By: #### P T, DDIM #### [facility] [address] [place] [address] Dr. Arden Magallon EGFR-AF KITTITIAN >60 Normal >=60 [facility] Comment on above: Performed By: #### P T, DDIM #### [facility] [address] [place] [address] Dr. Arden Magallon EGFR-NON AF KITTITIAN 53 mL/min/1.73m2 Critically low >=60 [facility] Comment on above: Performed By: #### P T, DDIM #### [facility] [address] [place] [address] Dr. Arden Magallon Glucose [Mass/Vol] 116 mg/dL Critically high 74-106 [facility] Comment on above: Performed By: #### P T, DDIM #### [facility] [address] [place] [address] Dr. Arden Magallon Potassium [Moles/Vol] 4.1 mmol/L Normal 3.5-5.1 [facility] Comment on above: Performed By: #### P T, DDIM #### [facility] [address] [place] [address] Dr. Arden Magallon Sodium [Moles/Vol] 139 mmol/L Normal 136-145 [facility] Comment on above: Performed By: #### P T, DDIM #### [facility] [address] [place] [address] Dr. Arden Magallon Urea nitrogen [Mass/Vol] 15.0 mg/dL Normal 7.0-18.0 [facility] Comment on above: Performed By: #### P T, DDIM #### [facility] [address] [place] [address] Dr. Arden Magallon Urea nitrogen/Creatinine [Mass ratio] 15.0 mg/mg Normal [facility] Comment on above: Performed By: #### P T, DDIM #### [facility] [address] [place] [address] Dr. Arden Magallon CBC AUTO DIFFon 08-30-2022 BASO # 0.2 103/ul Critically high 0.0-0.1 [facility] Comment on above: Performed By: #### B GUM MACHINE FILLER, CMP #### [facility] [address] [place] [address] Dr. Arden Magallon Basophils/100 WBC (Bld) 2.7 % Critically high 0.2-2.0 [facility] Comment on above: Performed By: #### B GUM MACHINE FILLER, CMP #### [facility] [address] [place] [address] Dr. Arden Magallon EO # 0.5 103/ul Normal 0.0-0.7 [facility] Comment on above: Performed By: #### B GUM MACHINE FILLER, CMP #### [facility] [address] [place] [address] Dr. Arden Magallon Eosinophils/100 WBC (Bld) 6.7 % Normal 0.9-7.0 [facility] Comment on above: Performed By: #### B GUM MACHINE FILLER, CMP #### [facility] [address] [place] [address] Dr. Arden Magallon Erythrocyte distribution width (RBC) [Ratio] 14.3 % Normal 11.0-15.0 [facility] Comment on above: Performed By: #### B GUM MACHINE FILLER, CMP #### [facility] [address] [place] [address] Dr. Arden Magallon Hematocrit (Bld) [Volume fraction] 43.1 % Normal 36.0-48.0 [facility] Comment on above: Performed By: #### B GUM MACHINE FILLER, CMP #### [facility] [address] [place] [address] Dr. Arden Magallon Hemoglobin (Bld) [Mass/Vol] 14.5 g/dL Normal 12.0-16.0 [facility] Comment on above: Performed By: #### B GUM MACHINE FILLER, CMP #### [facility] [address] [place] [address] Dr. Arden Magallon IG # 0.02 10e3/ul Normal 0.00-0.03 [facility] Comment on above: Performed By: #### B GUM MACHINE FILLER, CMP #### [facility] [address] [place] [address] Dr. Arden Magallon IG % 0.3 % Normal 0.0-0.5 [facility] Comment on above: Performed By: #### B GUM MACHINE FILLER, CMP #### [facility] [address] [place] [address] Dr. Arden Magallon LYMPH # 3.1 103/ul Normal 1.2-3.8 [facility] Comment on above: Performed By: #### B GUM MACHINE FILLER, CMP #### [facility] [address] [place] [address] Dr. Arden Magallon Lymphocytes/100 WBC (Bld) 41.0 % Normal 20.5-60.0 [facility] Comment on above: Performed By: #### B GUM MACHINE FILLER, CMP #### [facility] [address] [place] [address] Dr. Arden Magallon MANUAL DIFF REQ NO Normal [facility] Comment on above: Performed By: #### B GUM MACHINE FILLER, CMP #### [facility] [address] [place] [address] Dr. Arden Magallon MCH (RBC) [Entitic mass] 31.6 pg Normal 26.7-34.0 [facility] Comment on above: Performed By: #### B GUM MACHINE FILLER, CMP #### [facility] [address] [place] [address] Dr. Arden Magallon MCHC (RBC) [Mass/Vol] 33.6 g/dL Normal 29.9-35.2 [facility] Comment on above: Performed By: #### B GUM MACHINE FILLER, CMP #### [facility] [address] [place] [address] Dr. Arden Magallon MCV (RBC) [Entitic vol] 93.9 fL Normal 81.0-99.0 [facility] Comment on above: Performed By: #### B GUM MACHINE FILLER, CMP #### [facility] [address] [place] [address] Dr. Arden Magallon MONO # 0.8 103/ul Normal 0.3-0.8 [facility] Comment on above: Performed By: #### B GUM MACHINE FILLER, CMP #### [facility] [address] [place] [address] Dr. Arden Magallon Monocytes/100 WBC (Bld) 10.9 % Normal 1.7-12.0 [facility] Comment on above: Performed By: #### B GUM MACHINE FILLER, CMP #### [facility] [address] [address] [address] Arden Magallon NEUT # 2.9 103/ul Normal 1.4-6.5 [facility] Comment on above: Performed By: #### B GUM MACHINE FILLER, CMP #### [facility] [address] [address] [address] Arden Magallon Neutrophils/100 WBC (Bld) 38.4 % Critically low 43.0-75.0 [facility] Comment on above: Performed By: #### B GUM MACHINE FILLER, CMP #### [facility] [address] [address] [address] Arden Magallon Platelet mean volume (Bld) [Entitic vol] 10.8 fL Normal 9.5-13.5 [facility] Comment on above: Performed By: #### B GUM MACHINE FILLER, CMP #### [facility] [address] [place] [address] Dr. Arden Magallon PLT 165 103/ul Normal 150-450 [facility] Comment on above: Performed By: #### B GUM MACHINE FILLER, CMP #### [facility] [address] [place] [address] Dr. Arden Magallon RBC 4.59 106/ul Normal 4.20-5.40 [facility] Comment on above: Performed By: #### B GUM MACHINE FILLER, CMP #### [facility] [address] [place] [address] Dr. Arden Magallon WBC 7.5 103/ul Normal 4.0-11.0 [facility] Comment on above: Performed By: #### B GUM MACHINE FILLER, CMP #### [facility] [address] [place] [address] Dr. Arden Magallon PROF 14(COMP METB)on 022 Albumin [Mass/Vol] 3.9 g/dL Normal 3.4-5.0 [facility] Comment on above: Performed By: #### P T, DDIM #### [facility] [address] [place] [address] Dr. Arden Magallon Albumin/Globulin [Mass ratio] 1.2 {ratio} Normal [facility] Comment on above: Performed By: #### P T, DDIM #### [facility] [address] [address] [address] Arden Magallon ALP [Catalytic activity/Vol] 69 U/L Normal 46-116 [facility] Comment on above: Performed By: #### P T, DDIM #### [facility] [address] [address] [address] Arden Magallon ALT [Catalytic activity/Vol] 16 U/L Normal 14-59 [facility] Comment on above: Performed By: #### P T, DDIM #### [facility] [address] [address] [address] Arden Magallon Anion gap [Moles/Vol] 8.6 mmol/L Normal [facility] Comment on above: Performed By: #### P T, DDIM #### [facility] [address] [address] [address] Arden Magallon AST [Catalytic activity/Vol] 14 U/L Critically low 15-37 [facility] Comment on above: Performed By: #### P T, DDIM #### [facility] [address] [address] [address] Arden Magallon Bilirubin [Mass/Vol] 0.3 mg/dL Normal 0.2-1.0 [facility] Comment on above: Performed By: #### P T, DDIM #### [facility] [address] [address] [address] Arden Magallon Calcium [Mass/Vol] 9.5 mg/dL Normal 8.5-10.1 [facility] Comment on above: Performed By: #### P T, DDIM #### [facility] [address] [address] [address] Arden Magallon Chloride [Moles/Vol] 104 mmol/L Normal 98-107 [facility] Comment on above: Performed By: #### P T, DDIM #### [facility] [address] [address] [address] Arden Magallon CO2 [Moles/Vol] 29.2 mmol/L Normal 21.0-32.0 [facility] Comment on above: Performed By: #### P T, DDIM #### [facility] [address] [place] [address] Dr. Arden Magallon Creatinine [Mass/Vol] 1.25 mg/dL Critically high 0.55-1.02 [facility] Comment on above: Performed By: #### P T, DDIM #### [facility] [address] [place] [address] Dr. Arden Magallon EGFR-AF KITTITIAN 49 mL/min/1.73m2 Critically low >=60 [facility] Comment on above: Performed By: #### P T, DDIM #### [facility] [address] [place] [address] Dr. Arden Magallon EGFR-NON AF KITTITIAN 41 mL/min/1.73m2 Critically low >=60 [facility] Comment on above: Performed By: #### P T, DDIM #### [facility] [address] [place] [address] Dr. Arden Magallon Globulin (S) [Mass/Vol] 3.3 g/dL Normal [facility] Comment on above: Performed By: #### P T, DDIM #### [facility] [address] [place] [address] Dr. Arden Magallon Glucose [Mass/Vol] 119 mg/dL Critically high 74-106 [facility] Comment on above: Performed By: #### P T, DDIM #### [facility] [address] [place] [address] Dr. Arden Magallon Potassium [Moles/Vol] 3.8 mmol/L Normal 3.5-5.1 [facility] Comment on above: Performed By: #### P T, DDIM #### [facility] [address] [place] [address] Dr. Arden Magallon Protein [Mass/Vol] 7.2 g/dL Normal 6.4-8.2 [facility] Comment on above: Performed By: #### P T, DDIM #### [facility] [address] [place] [address] Dr. Arden Magallon Sodium [Moles/Vol] 138 mmol/L Normal 136-145 [facility] Comment on above: Performed By: #### P T, DDIM #### [facility] [address] [place] [address] Dr. Arden Magallon Urea nitrogen [Mass/Vol] 24.0 mg/dL Critically high 7.0-18.0 [facility] Comment on above: Performed By: #### P T, DDIM #### [facility] [address] [place] [address] Dr. Arden Magallon Urea nitrogen/Creatinine [Mass ratio] 19.2 mg/mg Normal [facility] Comment on above: Performed By: #### P T, DDIM #### [facility] [address] [place] [address] Dr. Arden Magallon BNPon 08-26-2022 Natriuretic peptide B (Bld) [Mass/Vol] 427.0 pg/mL Normal <=1,800.0 [facility] Comment on above: Performed By: #### P T, DDIM #### [facility] [address] [place] [address] Dr. Arden Magallon CARDIAC CINDY ADMITon 022 CK [Catalytic activity/Vol] 56 U/L Normal 26-192 [facility] Comment on above: Performed By: #### P T, DDIM #### [facility] [address] [place] [address] Dr. Arden Magallon CK.MB [Mass/Vol] 1.41 ng/mL Normal <=3.60 [facility] Comment on above: Performed By: #### P T, DDIM #### [facility] [address] [place] [address] Dr. Arden Magallon HSTROP 9.0 pg/mL Normal 4.0-51.3 [facility] Comment on above: Result Comment: CUT- OFF POINTS HAVE BEEN ESTABLISHED BASED ON THE FOURTH UNIVERSAL DEFINITIONS OF MYOCARDIAL INFARCTION. THE UPPER REFERENCE LIMIT (URL) OF TROPONIN, DEFINED THE 99TH PERCENTILE OF cTnI DISTRIBUTION IN A REFERENCE POPULATION, HAS BEEN CONFIRMED THE DECISION THRESHOLD FOR MS DIAGNOSIS. Performed By: #### P T, DDIM #### [facility] [address] [address] [address] Arden Magallon IKE 99 ng/mL Critically high 9-82 [facility] Comment on above: Performed By: #### P T, DDIM #### [facility] [address] [address] [address] Arden Magallon CBC AUTO DIFFon 08-26-2022 BASO # 0.2 103/ul Critically high 0.0-0.1 [facility] Comment on above: Performed By: #### C BC #### [facility] [address] [place] [address] Dr. Arden Magallon Basophils/100 WBC (Bld) 2.2 % Critically high 0.2-2.0 [facility] Comment on above: Performed By: #### C BC #### [facility] [address] [place] [address] Dr. Arden Magallon EO # 0.4 103/ul Normal 0.0-0.7 [facility] Comment on above: Performed By: #### C BC #### [facility] [address] [place] [address] Dr. Arden Magallon Eosinophils/100 WBC (Bld) 5.1 % Normal 0.9-7.0 [facility] Comment on above: Performed By: #### C BC #### [facility] [address] [place] [address] Dr. Arden Magallon Erythrocyte distribution width (RBC) [Ratio] 14.1 % Normal 11.0-15.0 [facility] Comment on above: Performed By: #### C BC #### [facility] [address] [place] [address] Dr. Arden Magallon Hematocrit (Bld) [Volume fraction] 41.2 % Normal 36.0-48.0 [facility] Comment on above: Performed By: #### C BC #### [facility] [address] [place] [address] Dr. Arden Magallon Hemoglobin (Bld) [Mass/Vol] 13.6 g/dL Normal 12.0-16.0 [facility] Comment on above: Performed By: #### C BC #### [facility] [address] [place] [address] Dr. Arden Magallon IG # 0.03 10e3/ul Normal 0.00-0.03 [facility] Comment on above: Performed By: #### C BC #### [facility] [address] [place] [address] Dr. Arden Magallon IG % 0.4 % Normal 0.0-0.5 [facility] Comment on above: Performed By: #### C BC #### [facility] [address] [place] [address] Dr. Arden Magallon LYMPH # 2.4 103/ul Normal 1.2-3.8 [facility] Comment on above: Performed By: #### C BC #### [facility] [address] [place] [address] Dr. Arden Magallon Lymphocytes/100 WBC (Bld) 30.1 % Normal 20.5-60.0 [facility] Comment on above: Performed By: #### C BC #### [facility] [address] [place] [address] Dr. Arden Magallon MANUAL DIFF REQ NO Normal [facility] Comment on above: Performed By: #### C BC #### [facility] [address] [place] [address] Dr. Arden Magallon MCH (RBC) [Entitic mass] 30.8 pg Normal 26.7-34.0 [facility] Comment on above: Performed By: #### C BC #### [facility] [address] [place] [address] Dr. Arden Magallon MCHC (RBC) [Mass/Vol] 33.0 g/dL Normal 29.9-35.2 [facility] Comment on above: Performed By: #### C BC #### [facility] [address] [place] [address] Dr. Arden Magallon MCV (RBC) [Entitic vol] 93.4 fL Normal 81.0-99.0 [facility] Comment on above: Performed By: #### C BC #### [facility] [address] [place] [address] Dr. Arden Magallon MONO # 0.8 103/ul Normal 0.3-0.8 [facility] Comment on above: Performed By: #### C BC #### [facility] [address] [place] [address] Dr. Arden Magallon Monocytes/100 WBC (Bld) 9.8 % Normal 1.7-12.0 [facility] Comment on above: Performed By: #### C BC #### [facility] [address] [place] [address] Dr. Arden Magallon NEUT # 4.2 103/ul Normal 1.4-6.5 [facility] Comment on above: Performed By: #### C BC #### [facility] [address] [place] [address] Dr. Arden Magallon Neutrophils/100 WBC (Bld) 52.4 % Normal 43.0-75.0 [facility] Comment on above: Performed By: #### C BC #### [facility] [address] [place] [address] Dr. Arden Magallon Platelet mean volume (Bld) [Entitic vol] 10.7 fL Normal 9.5-13.5 [facility] Comment on above: Performed By: #### C BC #### [facility] [address] [place] [address] Dr. Arden Magallon PLT 154 103/ul Normal 150-450 [facility] Comment on above: Performed By: #### C BC #### [facility] [address] [place] [address] Dr. Arden Magallon RBC 4.41 106/ul Normal 4.20-5.40 [facility] Comment on above: Performed By: #### C BC #### [facility] [address] [place] [address] Dr. Arden Magallon WBC 8.1 103/ul Normal 4.0-11.0 [facility] Comment on above: Performed By: #### C BC #### [facility] [address] [place] [address] Dr. Arden Magallon PROF 14(COMP METB)on 08-26- 022 Albumin [Mass/Vol] 3.7 g/dL Normal 3.4-5.0 [facility] Comment on above: Performed By: #### P T, DDIM #### [facility] [address] [address] [address] Arden Magallon Albumin/Globulin [Mass ratio] 1.2 {ratio} Normal [facility] Comment on above: Performed By: #### P T, DDIM #### [facility] [address] [address] [address] Arden Magallon ALP [Catalytic activity/Vol] 57 U/L Normal 46-116 [facility] Comment on above: Performed By: #### P T, DDIM #### [facility] [address] [address] [address] Arden Magallon ALT [Catalytic activity/Vol] 17 U/L Normal 14-59 [facility] Comment on above: Performed By: #### P T, DDIM #### [facility] [address] [address] [address] Arden Magallon Anion gap [Moles/Vol] 9.1 mmol/L Normal [facility] Comment on above: Performed By: #### P T, DDIM #### [facility] [address] [address] [address] Arden Magallon AST [Catalytic activity/Vol] 12 U/L Critically low 15-37 [facility] Comment on above: Performed By: #### P T, DDIM #### [facility] [address] [address] [address] Arden Magallon Bilirubin [Mass/Vol] 0.6 mg/dL Normal 0.2-1.0 [facility] Comment on above: Performed By: #### P T, DDIM #### [facility] [address] [address] [address] Arden Magallon Calcium [Mass/Vol] 9.5 mg/dL Normal 8.5-10.1 [facility] Comment on above: Performed By: #### P T, DDIM #### [facility] [address] [address] [address] Arden Magallon Chloride [Moles/Vol] 105 mmol/L Normal 98-107 [facility] Comment on above: Performed By: #### P T, DDIM #### [facility] [address] [address] [address] Arden Magallon CO2 [Moles/Vol] 27.9 mmol/L Normal 21.0-32.0 [facility] Comment on above: Performed By: #### P T, DDIM #### [facility] [address] [address] [address] Arden Magallon Creatinine [Mass/Vol] 0.97 mg/dL Normal 0.55-1.02 [facility] Comment on above: Performed By: #### P T, DDIM #### [facility] [address] [place] [address] Dr. Arden Magallon EGFR-AF KITTITIAN >60 Normal >=60 [facility] Comment on above: Performed By: #### P T, DDIM #### [facility] [address] [address] [address] Arden Magallon EGFR-NON AF KITTITIAN 54 mL/min/1.73m2 Critically low >=60 [facility] Comment on above: Performed By: #### P T, DDIM #### [facility] [address] [place] [address] Dr. Arden Magallon Globulin (S) [Mass/Vol] 3.0 g/dL Normal [facility] Comment on above: Performed By: #### P T, DDIM #### [facility] [address] [address] [address] Arden Magallon Glucose [Mass/Vol] 105 mg/dL Normal 74-106 [facility] Comment on above: Performed By: #### P T, DDIM #### [facility] [address] [address] [address] Arden Magallon Potassium [Moles/Vol] 4.0 mmol/L Normal 3.5-5.1 [facility] Comment on above: Performed By: #### P T, DDIM #### [facility] [address] [place] [address] Dr. Arden Magallon Protein [Mass/Vol] 6.7 g/dL Normal 6.4-8.2 [facility] Comment on above: Performed By: #### P T, DDIM #### [facility] [address] [place] [address] Dr. Arden Magallon Sodium [Moles/Vol] 138 mmol/L Normal 136-145 [facility] Comment on above: Performed By: #### P T, DDIM #### [facility] [address] [place] [address] Dr. Arden Magallon Urea nitrogen [Mass/Vol] 18.0 mg/dL Normal 7.0-18.0 [facility] Comment on above: Performed By: #### P T, DDIM #### [facility] [address] [place] [address] Dr. Arden Magallon Urea nitrogen/Creatinine [Mass ratio] 18.6 mg/mg Normal [facility] Comment on above: Performed By: #### P T, DDIM #### [facility] [address] [place] [address] Dr. Arden Magallon PROTIMEon 08-26-2022 INR Coag (PPP) [Relative time] 1.49 {INR} Normal [facility] Comment on above: Performed By: #### B GUM MACHINE FILLER, CMP #### [facility] [address] [place] [address] Dr. Arden Magallon INR GUIDELINES SEE BELOW Normal [facility] Comment on above: Result Comment: THANH RED INR: 2.0 - 3.0 CONDITIONS NOT LISTED BELOW 2.5 - 3.5 FOR PROSTHETIC HEART VALVE REPLACEMENT 2.5 - 3.5 RECURRENT THROMBOSIS Performed By: #### B GUM MACHINE FILLER, CMP #### [facility] [address] [place] [address] Dr. Arden Magallon PT Coag (PPP) [Time] 15.7 s Critically high 9.0-11.6 [facility] Comment on above: Performed By: #### B GUM MACHINE FILLER, CMP #### [facility] [address] [place] [address] Dr. Arden Magallon PTTon 08-26-2022 aPTT Coag (Bld) [Time] 30.2 s Normal 22.3-36.2 [facility] Comment on above: Performed By: #### B GUM MACHINE FILLER, CMP #### [facility] [address] [place] [address] Dr. Arden Magallon TROPONIN, HIGH SENSITIVITYon 08-26-2022 HSTROP 8.3 pg/mL Normal 4.0-51.3 [facility] Comment on above: Result Comment: CUT- OFF POINTS HAVE BEEN ESTABLISHED BASED ON THE FOURTH UNIVERSAL DEFINITIONS OF MYOCARDIAL INFARCTION. THE UPPER REFERENCE LIMIT (URL) OF TROPONIN, DEFINED THE 99TH PERCENTILE OF cTnI DISTRIBUTION IN A REFERENCE POPULATION, HAS BEEN CONFIRMED THE DECISION THRESHOLD FOR MS DIAGNOSIS. Performed By: #### B MP #### [facility] [address] [place] [address] Dr. Arden Magallon XR CHEST 1 Von [...] [place] Date: 2022-08-26 12:29 Normal [facility] BNPon 08-17-2022 Natriuretic peptide B (Bld) [Mass/Vol] 414.0 pg/mL Normal <=1,800.0 [facility] Comment on above: Performed By: #### B MP #### [facility] [address] [place] [address] Dr. Arden Magallon CBC AUTO DIFFon 08-17-2022 BASO # 0.2 103/ul Critically high 0.0-0.1 [facility] Comment on above: Performed By: #### B MP #### [facility] [address] [place] [address] Dr. Arden Magallon Basophils/100 WBC (Bld) 2.8 % Critically high 0.2-2.0 [facility] Comment on above: Performed By: #### B MP #### [facility] [address] [place] [address] Dr. Arden Magallno EO # 0.5 103/ul Normal 0.0-0.7 [facility] Comment on above: Performed By: #### B MP #### [facility] [address] [place] [address] Dr. Arden Magallon Eosinophils/100 WBC (Bld) 7.2 % Critically high 0.9-7.0 [facility] Comment on above: Performed By: #### B MP #### [facility] [address] [place] [address] Dr. Arden Magallon Erythrocyte distribution width (RBC) [Ratio] 14.1 % Normal 11.0-15.0 [facility] Comment on above: Performed By: #### B MP #### [facility] [address] [place] [address] Dr. Arden Magallon Hematocrit (Bld) [Volume fraction] 41.2 % Normal 36.0-48.0 [facility] Comment on above: Performed By: #### B MP #### [facility] [address] [place] [address] Dr. Arden Magallon Hemoglobin (Bld) [Mass/Vol] 13.5 g/dL Normal 12.0-16.0 [facility] Comment on above: Performed By: #### B MP #### [facility] [address] [place] [address] Dr. Arden Magallon IG # 0.01 10e3/ul Normal 0.00-0.03 [facility] Comment on above: Performed By: #### B MP #### [facility] [address] [place] [address] Dr. Arden Magallon IG % 0.1 % Normal 0.0-0.5 [facility] Comment on above: Performed By: #### B MP #### [facility] [address] [address] [address] Arden Magallon LYMPH # 2.7 103/ul Normal 1.2-3.8 [facility] Comment on above: Performed By: #### B MP #### [facility] [address] [address] [address] Arden Magallon Lymphocytes/100 WBC (Bld) 37.7 % Normal 20.5-60.0 [facility] Comment on above: Performed By: #### B MP #### [facility] [address] [place] [address] Dr. Arden Magallon MANUAL DIFF REQ NO Normal [facility] Comment on above: Performed By: #### B MP #### [facility] [address] [place] [address] Dr. Arden Magallon MCH (RBC) [Entitic mass] 31.2 pg Normal 26.7-34.0 [facility] Comment on above: Performed By: #### B MP #### [facility] [address] [place] [address] Dr. Arden Magallon MCHC (RBC) [Mass/Vol] 32.8 g/dL Normal 29.9-35.2 [facility] Comment on above: Performed By: #### B MP #### [facility] [address] [place] [address] Dr. Arden Magallon MCV (RBC) [Entitic vol] 95.2 fL Normal 81.0-99.0 [facility] Comment on above: Performed By: #### B MP #### [facility] [address] [place] [address] Dr. Arden Magallon MONO # 0.6 103/ul Normal 0.3-0.8 [facility] Comment on above: Performed By: #### B MP #### [facility] [address] [place] [address] Dr. Arden Magallon Monocytes/100 WBC (Bld) 8.2 % Normal 1.7-12.0 [facility] Comment on above: Performed By: #### B MP #### [facility] [address] [address] [address] Arden Magallon NEUT # 3.1 103/ul Normal 1.4-6.5 [facility] Comment on above: Performed By: #### B MP #### [facility] [address] [address] [address] Arden Magallon Neutrophils/100 WBC (Bld) 44.0 % Normal 43.0-75.0 [facility] Comment on above: Performed By: #### B MP #### [facility] [address] [place] [address] Dr. Arden Magallon Platelet mean volume (Bld) [Entitic vol] 11.5 fL Normal 9.5-13.5 [facility] Comment on above: Performed By: #### B MP #### [facility] [address] [place] [address] Dr. Arden Magallon PLT 160 103/ul Normal 150-450 [facility] Comment on above: Performed By: #### B MP #### [facility] [address] [place] [address] Dr. Arden Magallon RBC 4.33 106/ul Normal 4.20-5.40 [facility] Comment on above: Performed By: #### B MP #### [facility] [address] [place] [address] Dr. Arden Magallon WBC 7.1 103/ul Normal 4.0-11.0 [facility] Comment on above: Performed By: #### B MP #### [facility] [address] [place] [address] Dr. Arden Magallon D-DIMERon 08-17-2022 D-DIMER 0.36 mg/L FEU Normal <=0.59 [facility] Comment on above: Performed By: #### P T, DDIM #### [facility] [address] [place] [address] Dr. Arden Magallon D-DIMER COMMENTS SEE BELOW Normal [facility] Comment on above: Result Comment: Incr eases [...] Performed By: #### P T, DDIM #### [facility] [address] [place] [address] Dr. Arden Magallon PROF 14(COMP METB)on 022 Albumin [Mass/Vol] 3.7 g/dL Normal 3.4-5.0 [facility] Comment on above: Performed By: #### C BC #### [facility] [address] [place] [address] Dr. Arden Magallon Albumin/Globulin [Mass ratio] 1.1 {ratio} Normal [facility] Comment on above: Performed By: #### C BC #### [facility] [address] [place] [address] Dr. Arden Magallon ALP [Catalytic activity/Vol] 65 U/L Normal 46-116 [facility] Comment on above: Performed By: #### C BC #### [facility] [address] [place] [address] Dr. Arden Magallon ALT [Catalytic activity/Vol] 15 U/L Normal 14-59 [facility] Comment on above: Performed By: #### C BC #### [facility] [address] [place] [address] Dr. Arden Magallon Anion gap [Moles/Vol] 6.1 mmol/L Normal [facility] Comment on above: Performed By: #### C BC #### [facility] [address] [place] [address] Dr. Arden Magallon AST [Catalytic activity/Vol] 11 U/L Critically low 15-37 [facility] Comment on above: Performed By: #### C BC #### [facility] [address] [place] [address] Dr. Arden Magallon Bilirubin [Mass/Vol] 0.4 mg/dL Normal 0.2-1.0 [facility] Comment on above: Performed By: #### C BC #### [facility] [address] [place] [address] Dr. Arden Magallon Calcium [Mass/Vol] 9.6 mg/dL Normal 8.5-10.1 [facility] Comment on above: Performed By: #### C BC #### [facility] [address] [address] [address] Arden Magallon Chloride [Moles/Vol] 106 mmol/L Normal 98-107 [facility] Comment on above: Performed By: #### C BC #### [facility] [address] [place] [address] Dr. Arden Magallon CO2 [Moles/Vol] 29.5 mmol/L Normal 21.0-32.0 [facility] Comment on above: Performed By: #### C BC #### [facility] [address] [place] [address] Dr. Arden Magallon Creatinine [Mass/Vol] 1.02 mg/dL Normal 0.55-1.02 [facility] Comment on above: Performed By: #### C BC #### [facility] [address] [place] [address] Dr. Arden Magallon EGFR-AF KITTITIAN >60 Normal >=60 [facility] Comment on above: Performed By: #### C BC #### [facility] [address] [place] [address] Dr. Arden Magallon EGFR-NON AF KITTITIAN 51 mL/min/1.73m2 Critically low >=60 [facility] Comment on above: Performed By: #### C BC #### [facility] [address] [place] [address] Dr. Arden Magallon Globulin (S) [Mass/Vol] 3.3 g/dL Normal [facility] Comment on above: Performed By: #### C BC #### [facility] [address] [place] [address] Dr. Arden Magallon Glucose [Mass/Vol] 143 mg/dL Critically high 74-106 [facility] Comment on above: Performed By: #### C BC #### [facility] [address] [address] [address] Arden Magallon Potassium [Moles/Vol] 3.6 mmol/L Normal 3.5-5.1 [facility] Comment on above: Performed By: #### C BC #### [facility] [address] [address] [address] Arden Magallon Protein [Mass/Vol] 7.0 g/dL Normal 6.4-8.2 [facility] Comment on above: Performed By: #### C BC #### [facility] [address] [address] [address] Arden Magallon Sodium [Moles/Vol] 138 mmol/L Normal 136-145 [facility] Comment on above: Performed By: #### C BC #### [facility] [address] [address] [address] Arden Magallon Urea nitrogen [Mass/Vol] 21.0 mg/dL Critically high 7.0-18.0 [facility] Comment on above: Performed By: #### C BC #### [facility] [address] [address] [address] Arden Magallon Urea nitrogen/Creatinine [Mass ratio] 20.6 mg/mg Normal [facility] Comment on above: Performed By: #### C BC #### [facility] [address] [address] [address] Arden Magallon PROTIMEon 08-17-2022 INR Coag (PPP) [Relative time] 1.27 {INR} Normal [facility] Comment on above: Performed By: #### P T, DDIM #### [facility] [address] [address] [address] Arden Magallon INR GUIDELINES SEE BELOW Normal [facility] Comment on above: Result Comment: THANH RED INR: 2.0 - 3.0 CONDITIONS NOT LISTED BELOW 2.5 - 3.5 FOR PROSTHETIC HEART VALVE REPLACEMENT 2.5 - 3.5 RECURRENT THROMBOSIS Performed By: #### P T, DDIM #### [facility] [address] [address] [address] Arden Magallon PT Coag (PPP) [Time] 13.5 s Critically high 9.0-11.6 [facility] Comment on above: Performed By: #### P T, DDIM #### [facility] [address] [address] [address] Arden Magallon TROPONIN, HIGH SENSITIVITYon 08-17-2022 HSTROP 8.3 pg/mL Normal 4.0-51.3 [facility] Comment on above: Result Comment: CUT- OFF POINTS HAVE BEEN ESTABLISHED BASED ON THE FOURTH UNIVERSAL DEFINITIONS OF MYOCARDIAL INFARCTION. THE UPPER REFERENCE LIMIT (URL) OF TROPONIN, DEFINED THE 99TH PERCENTILE OF cTnI DISTRIBUTION IN A REFERENCE POPULATION, HAS BEEN CONFIRMED THE DECISION THRESHOLD FOR MS DIAGNOSIS. Performed By: #### B MP #### [facility] [address] [place] [address] Dr. Arden Magallon XR CHEST 1 Von [...] HARJINDER RAMIREZ Date: 2022-08-17 13:57 Normal [facility] URINE PROFILEon 2 Bilirubin Ql (U) Negative Normal NEGATIVE [facility] Comment on above: Performed By: #### P T, DDIM #### [facility] [address] [place] [address] Dr. Arden Magallon Clarity (U) CLEAR Normal CLEAR [facility] Comment on above: Performed By: #### P T, DDIM #### [facility] [address] [place] [address] Dr. Arden Magallon Color (U) LT. YELLOW Normal YELLOW [facility] Comment on above: Performed By: #### P T, DDIM #### [facility] [address] [place] [address] Dr. Arden STROUD A micrscopic examination will be performed if indicated. Normal [facility] Comment on above: Performed By: #### P T, DDIM #### [facility] [address] [place] [address] Dr. Arden Magallon Glucose Ql (U) Negative Normal NEGATIVE [facility] Comment on above: Performed By: #### P T, DDIM #### [facility] [address] [place] [address] Dr. Arden Magallon Hemoglobin Ql (U) SMALL Abnormal NEGATIVE [facility] Comment on above: Performed By: #### P T, DDIM #### [facility] [address] [place] [address] Dr. Arden Magallon Ketones Ql (U) Negative Normal NEGATIVE [facility] Comment on above: Performed By: #### P T, DDIM #### [facility] [address] [place] [address] Dr. Arden Magallon LEUKOCYTES TRACE Abnormal NEGATIVE [facility] Comment on above: Performed By: #### P T, DDIM #### [facility] [address] [place] [address] Dr. Arden Magallon Nitrite Ql (U) Negative Normal NEGATIVE [facility] Comment on above: Performed By: #### P T, DDIM #### [facility] [address] [place] [address] Dr. Arden Magallon pH (U) 7.0 [pH] Normal 5-9 [facility] Comment on above: Performed By: #### P T, DDIM #### [facility] [address] [place] [address] Dr. Arden Magallon SPEC GRAVITY 1.010 Normal 1.005-<=1.02 5 [facility] Comment on above: Performed By: #### P T, DDIM #### [facility] [address] [place] [address] Dr. Arden Magallon UA PROTEIN Negative Normal NEGATIVE/ TRACE [facility] Comment on above: Performed By: #### P T, DDIM #### [facility] [address] [place] [address] Dr. Arden Magallon UR MICRO IND INDICATED Normal [facility] Comment on above: Performed By: #### P T, DDIM #### [facility] [address] [place] [address] Dr. Arden Magallon Urobilinogen Qn (U) 0.2 {Myranda'U}/dL Normal 0.2 - 1. 0 [facility] Comment on above: Performed By: #### P T, DDIM #### [facility] [address] [place] [address] Dr. Arden Magallon URINE MICROSCOPIC ONLYon BACTERIA NONE SEEN Normal NONE SEEN [facility] Comment on above: Performed By: #### P T, DDIM #### [facility] [address] [place] [address] Dr. Arden Magallon Bacteria identified Cx Nom (U) NOT INDICATED Normal [facility] Comment on above: Performed By: #### P T, DDIM #### [facility] [address] [place] [address] Dr. Arden Magallon CAST NONE SEEN Normal NONE SEEN [facility] Comment on above: Performed By: #### P T, DDIM #### [facility] [address] [place] [address] Dr. Arden Magallon Crystals LM Nom (Urine sed) NONE SEEN Normal NONE SEEN [facility] Comment on above: Performed By: #### P T, DDIM #### [facility] [address] [place] [address] Dr. Arden Magallon Epithelial cells LM Ql (Urine sed) RARE Normal NONE SEEN /RARE [facility] Comment on above: Performed By: #### P T, DDIM #### [facility] [address] [place] [address] Dr. Arden Magallon MUCOUS NONE SEEN Normal NONE SEEN [facility] Comment on above: Performed By: #### P T, DDIM #### [facility] [address] [address] [address] Arden Magallon RBC 0-2 Normal 0-2 [facility] Comment on above: Performed By: #### P T, DDIM #### [facility] [address] [address] [address] Arden Magallon WBC 0-2 Abnormal NONE SEEN [facility] Comment on above: Performed By: #### P T, DDIM #### [facility] [address] [address] [address] Arden Magallon XR CHEST 1 Von [...] PANCHO ELY Date: 2022-04-15 22:19 Normal [facility] BNPon 04-15-2022 Natriuretic peptide B (Bld) [Mass/Vol] 318.0 pg/mL Normal <=1,800.0 [facility] Comment on above: Performed By: #### B GUM MACHINE FILLER, CMP #### [facility] [address] [place] [address] Dr. Arden Magallon CBC AUTO DIFFon 04-15-2022 BASO # 0.2 103/ul Critically high 0.0-0.1 [facility] Comment on above: Performed By: #### P T, DDIM #### [facility] [address] [address] [address] Arden Magallon Basophils/100 WBC (Bld) 2.2 % Critically high 0.2-2.0 [facility] Comment on above: Performed By: #### P T, DDIM #### [facility] [address] [place] [address] Dr. Arden Magallon EO # 0.5 103/ul Normal 0.0-0.7 [facility] Comment on above: Performed By: #### P T, DDIM #### [facility] [address] [place] [address] Dr. Arden Magallon Eosinophils/100 WBC (Bld) 6.2 % Normal 0.9-7.0 [facility] Comment on above: Performed By: #### P T, DDIM #### [facility] [address] [place] [address] Dr. Arden Magallon Erythrocyte distribution width (RBC) [Ratio] 14.0 % Normal 11.0-15.0 [facility] Comment on above: Performed By: #### P T, DDIM #### [facility] [address] [place] [address] Dr. Arden Magallon Hematocrit (Bld) [Volume fraction] 41.6 % Normal 36.0-48.0 [facility] Comment on above: Performed By: #### P T, DDIM #### [facility] [address] [place] [address] Dr. Arden Magallon Hemoglobin (Bld) [Mass/Vol] 13.8 g/dL Normal 12.0-16.0 [facility] Comment on above: Performed By: #### P T, DDIM #### [facility] [address] [place] [address] Dr. Arden Magallon IG # 0.01 10e3/ul Normal 0.00-0.03 [facility] Comment on above: Performed By: #### P T, DDIM #### [facility] [address] [place] [address] Dr. Arden Magallon IG % 0.1 % Normal 0.0-0.5 [facility] Comment on above: Performed By: #### P T, DDIM #### [facility] [address] [place] [address] Dr. Arden Magallon LYMPH # 3.2 103/ul Normal 1.2-3.8 [facility] Comment on above: Performed By: #### P T, DDIM #### [facility] [address] [place] [address] Dr. Arden Magallon Lymphocytes/100 WBC (Bld) 37.2 % Normal 20.5-60.0 [facility] Comment on above: Performed By: #### P T, DDIM #### [facility] [address] [place] [address] Dr. Arden Magallon MANUAL DIFF REQ NO Normal [facility] Comment on above: Performed By: #### P T, DDIM #### [facility] [address] [place] [address] Dr. Arden Magallon MCH (RBC) [Entitic mass] 31.0 pg Normal 26.7-34.0 [facility] Comment on above: Performed By: #### P T, DDIM #### [facility] [address] [place] [address] Dr. Arden Magallon MCHC (RBC) [Mass/Vol] 33.2 g/dL Normal 29.9-35.2 [facility] Comment on above: Performed By: #### P T, DDIM #### [facility] [address] [place] [address] Dr. Arden Magallon MCV (RBC) [Entitic vol] 93.5 fL Normal 81.0-99.0 [facility] Comment on above: Performed By: #### P T, DDIM #### [facility] [address] [place] [address] Dr. Arden Magallon MONO # 0.8 103/ul Normal 0.3-0.8 [facility] Comment on above: Performed By: #### P T, DDIM #### [facility] [address] [place] [address] Dr. Arden Magallon Monocytes/100 WBC (Bld) 9.4 % Normal 1.7-12.0 [facility] Comment on above: Performed By: #### P T, DDIM #### [facility] [address] [place] [address] Dr. Arden Magallon NEUT # 3.9 103/ul Normal 1.4-6.5 [facility] Comment on above: Performed By: #### P T, DDIM #### [facility] [address] [place] [address] Dr. Arden Magallon Neutrophils/100 WBC (Bld) 44.9 % Normal 43.0-75.0 [facility] Comment on above: Performed By: #### P T, DDIM #### [facility] [address] [place] [address] Dr. Arden Magallon Platelet mean volume (Bld) [Entitic vol] 10.7 fL Normal 9.5-13.5 [facility] Comment on above: Performed By: #### P T, DDIM #### [facility] [address] [place] [address] Dr. Arden Magallon PLT 158 103/ul Normal 150-450 [facility] Comment on above: Performed By: #### P T, DDIM #### [facility] [address] [place] [address] Dr. Arden Magallon RBC 4.45 106/ul Normal 4.20-5.40 [facility] Comment on above: Performed By: #### P T, DDIM #### [facility] [address] [place] [address] Dr. Arden Magallon WBC 8.7 103/ul Normal 4.0-11.0 [facility] Comment on above: Performed By: #### P T, DDIM #### [facility] [address] [place] [address] Dr. Arden Magallon PROF 14(COMP METB)on 022 Albumin [Mass/Vol] 4.2 g/dL Normal 3.4-5.0 [facility] Comment on above: Performed By: #### B GUM MACHINE FILLER, CMP #### [facility] [address] [place] [address] Dr. Arden Magallon Albumin/Globulin [Mass ratio] 1.2 {ratio} Normal [facility] Comment on above: Performed By: #### B GUM MACHINE FILLER, CMP #### [facility] [address] [address] [address] Arden Magallon ALP [Catalytic activity/Vol] 75 U/L Normal 46-116 [facility] Comment on above: Performed By: #### B GUM MACHINE FILLER, CMP #### [facility] [address] [address] [address] Arden Magallon ALT [Catalytic activity/Vol] 31 U/L Normal 14-59 [facility] Comment on above: Performed By: #### B GUM MACHINE FILLER, CMP #### [facility] [address] [address] [address] Arden Magallon Anion gap [Moles/Vol] 11.6 mmol/L Normal [facility] Comment on above: Performed By: #### B GUM MACHINE FILLER, CMP #### [facility] [address] [address] [address] Arden Magallon AST [Catalytic activity/Vol] 16 U/L Normal 15-37 [facility] Comment on above: Performed By: #### B GUM MACHINE FILLER, CMP #### [facility] [address] [address] [address] Arden Magallon Bilirubin [Mass/Vol] 0.4 mg/dL Normal 0.2-1.0 [facility] Comment on above: Performed By: #### B GUM MACHINE FILLER, CMP #### [facility] [address] [address] [address] Arden Magallon Calcium [Mass/Vol] 9.7 mg/dL Normal 8.5-10.1 [facility] Comment on above: Performed By: #### B GUM MACHINE FILLER, CMP #### [facility] [address] [address] [address] Arden Magallon Chloride [Moles/Vol] 106 mmol/L Normal 98-107 [facility] Comment on above: Performed By: #### B GUM MACHINE FILLER, CMP #### [facility] [address] [address] [address] Arden Magallon CO2 [Moles/Vol] 25.2 mmol/L Normal 21.0-32.0 [facility] Comment on above: Performed By: #### B GUM MACHINE FILLER, CMP #### [facility] [address] [address] [address] Arden Magallon Creatinine [Mass/Vol] 1.06 mg/dL Critically high 0.55-1.02 [facility] Comment on above: Performed By: #### B GUM MACHINE FILLER, CMP #### [facility] [address] [address] [address] Arden Magallon EGFR-AF KITTITIAN 60 mL/min/1.73m2 Normal >=60 [facility] Comment on above: Performed By: #### B GUM MACHINE FILLER, CMP #### [facility] [address] [address] [address] Arden Magallon EGFR-NON AF KITTITIAN 49 mL/min/1.73m2 Critically low >=60 [facility] Comment on above: Performed By: #### B GUM MACHINE FILLER, CMP #### [facility] [address] [address] [address] Arden Magallon Globulin (S) [Mass/Vol] 3.4 g/dL Normal [facility] Comment on above: Performed By: #### B GUM MACHINE FILLER, CMP #### [facility] [address] [address] [address] Arden Magallon Glucose [Mass/Vol] 123 mg/dL Critically high 74-106 [facility] Comment on above: Performed By: #### B GUM MACHINE FILLER, CMP #### [facility] [address] [address] [address] Arden Magallon Potassium [Moles/Vol] 3.8 mmol/L Normal 3.5-5.1 [facility] Comment on above: Performed By: #### B GUM MACHINE FILLER, CMP #### [facility] [address] [address] [address] Arden Magallon Protein [Mass/Vol] 7.6 g/dL Normal 6.4-8.2 [facility] Comment on above: Performed By: #### B GUM MACHINE FILLER, CMP #### [facility] [address] [address] [address] Arden Magallon Sodium [Moles/Vol] 139 mmol/L Normal 136-145 [facility] Comment on above: Performed By: #### B GUM MACHINE FILLER, CMP #### [facility] [address] [place], [place] [address] Dr. Arden Magallon Urea nitrogen [Mass/Vol] 22.0 mg/dL Critically high 7.0-18.0 [facility] Comment on above: Performed By: #### B GUM MACHINE FILLER, CMP #### [facility] [address] [place], [place] [address] Dr. Arden Magallon Urea nitrogen/Creatinine [Mass ratio] 20.8 mg/mg Normal [facility] Comment on above: Performed By: #### B GUM MACHINE FILLER, CMP #### [facility] [address] [place], [place] [address] Dr. Arden Magallon ECHOCARDIO M/2D COMPLETEon 0 04-06-2022 ECHOCARDIO M/2D COMPLETE Patient: ZORAIDA GAYTAN Exam Date: 04/06/2022 : 1935 Gender:F Ordering : FEDELIA LONG Admission #: [id number] Family : Order #: [id number] CLICK HERE TO VIEW EXAM ECHOCARDIOGRAM REPORT [...] Area(A4C): 16.40 cm2 Left Atrium Systolic Volume(A2C): 86458 mm3 Left Atrium Systolic Volume(A4C): 90401 mm3 Mitral Valve MV E to A Ratio: 0.60 Deceleration Norton: 2080 mm/s2 Mitral Valve A-Wave Peak Velocity: 103.00 cm/s Mitral Valve E-Wave Peak Velocity: 62.20 cm/s Right Ventricle RV Internal Diastolic Dimension: 3.04 cm Aorta AO Root Diam: 2.90 cm Aortic Valve AoV Area (Peak Bucky): 1.86 cm2 Deceleration Norton: 1080 mm/s2 Pressure Half-Time: 976 ms Peak [...] Edvin Grubbs M.D. on 04/06/2022 at 16:27 [facility] 04-06-2022 US KIDNEYS EXAMINATION: US KIDNEYS, grayscale [...] BERTHA SOLIZ Date: 2022-04-06 16:45 Normal [facility] BNPon 03-17-2022 Natriuretic peptide B (Bld) [Mass/Vol] 193.0 pg/mL Normal <=1,800.0 [facility] Comment on above: Performed By: #### B GUM MACHINE FILLER, CMP #### [facility] [address] [place] [address] Dr. Arden Magallon CBC AUTO DIFFon 03-17-2022 BASO # 0.1 103/ul Normal 0.0-0.1 [facility] Comment on above: Performed By: #### B GUM MACHINE FILLER, CMP #### [facility] [address] [place] [address] Dr. Arden Magallon Basophils/100 WBC (Bld) 0.9 % Normal 0.2-2.0 [facility] Comment on above: Performed By: #### B GUM MACHINE FILLER, CMP #### [facility] [address] [place] [address] Dr. Arden Magallon EO # 0.4 103/ul Normal 0.0-0.7 [facility] Comment on above: Performed By: #### B GUM MACHINE FILLER, CMP #### [facility] [address] [place] [address] Dr. Arden Magallon Eosinophils/100 WBC (Bld) 4.7 % Normal 0.9-7.0 [facility] Comment on above: Performed By: #### B GUM MACHINE FILLER, CMP #### [facility] [address] [place] [address] Dr. Arden Magallon Erythrocyte distribution width (RBC) [Ratio] 14.2 % Normal 11.0-15.0 [facility] Comment on above: Performed By: #### B GUM MACHINE FILLER, CMP #### [facility] [address] [place] [address] Dr. Arden Magallon Hematocrit (Bld) [Volume fraction] 43.1 % Normal 36.0-48.0 [facility] Comment on above: Performed By: #### B GUM MACHINE FILLER, CMP #### [facility] [address] [place] [address] Dr. Arden Magallon Hemoglobin (Bld) [Mass/Vol] 14.1 g/dL Normal 12.0-16.0 [facility] Comment on above: Performed By: #### B GUM MACHINE FILLER, CMP #### [facility] [address] [place] [address] Dr. Arden Magallon IG # 0.04 10e3/ul Critically high 0.00-0.03 [facility] Comment on above: Performed By: #### B GUM MACHINE FILLER, CMP #### [facility] [address] [place] [address] Dr. Arden Magallon IG % 0.5 % Normal 0.0-0.5 [facility] Comment on above: Performed By: #### B GUM MACHINE FILLER, CMP #### [facility] [address] [place] [address] Dr. Arden Magallon LYMPH # 3.0 103/ul Normal 1.2-3.8 [facility] Comment on above: Performed By: #### B GUM MACHINE FILLER, CMP #### [facility] [address] [place] [address] Dr. Arden Magallon Lymphocytes/100 WBC (Bld) 34.2 % Normal 20.5-60.0 [facility] Comment on above: Performed By: #### B GUM MACHINE FILLER, CMP #### [facility] [address] [place] [address] Dr. Arden Magallon MANUAL DIFF REQ NO Normal [facility] Comment on above: Performed By: #### B GUM MACHINE FILLER, CMP #### [facility] [address] [place] [address] Dr. Arden Magallon MCH (RBC) [Entitic mass] 31.3 pg Normal 26.7-34.0 [facility] Comment on above: Performed By: #### B GUM MACHINE FILLER, CMP #### [facility] [address] [place] [address] Dr. Arden Magallon MCHC (RBC) [Mass/Vol] 32.7 g/dL Normal 29.9-35.2 [facility] Comment on above: Performed By: #### B GUM MACHINE FILLER, CMP #### [facility] [address] [place] [address] Dr. Arden Magallon MCV (RBC) [Entitic vol] 95.8 fL Normal 81.0-99.0 [facility] Comment on above: Performed By: #### B GUM MACHINE FILLER, CMP #### [facility] [address] [place] [address] Dr. Arden Magallon MONO # 1.2 103/ul Critically high 0.3-0.8 [facility] Comment on above: Performed By: #### B GUM MACHINE FILLER, CMP #### [facility] [address] [place] [address] Dr. Arden Magallon Monocytes/100 WBC (Bld) 13.5 % Critically high 1.7-12.0 [facility] Comment on above: Performed By: #### B GUM MACHINE FILLER, CMP #### [facility] [address] [place] [address] Dr. Arden Magallon NEUT # 4.1 103/ul Normal 1.4-6.5 [facility] Comment on above: Performed By: #### B GUM MACHINE FILLER, CMP #### [facility] [address] [place] [address] Dr. Arden Magallon Neutrophils/100 WBC (Bld) 46.2 % Normal 43.0-75.0 [facility] Comment on above: Performed By: #### B GUM MACHINE FILLER, CMP #### [facility] [address] [address] [address] Arden Magallon Platelet mean volume (Bld) [Entitic vol] 11.2 fL Normal 9.5-13.5 [facility] Comment on above: Performed By: #### B GUM MACHINE FILLER, CMP #### [facility] [address] [address] [address] Adren Magallon PLT 160 103/ul Normal 150-450 [facility] Comment on above: Performed By: #### B GUM MACHINE FILLER, CMP #### [facility] [address] [address] [address] Arden Magallon RBC 4.50 106/ul Normal 4.20-5.40 [facility] Comment on above: Performed By: #### B GUM MACHINE FILLER, CMP #### [facility] [address] [place] [address] Dr. Arden Magallon WBC 8.9 103/ul Normal 4.0-11.0 [facility] Comment on above: Performed By: #### B GUM MACHINE FILLER, CMP #### [facility] [address] [place] [address] Dr. Arden Magaloln PROF 14(COMP METB)on 022 Albumin [Mass/Vol] 4.0 g/dL Normal 3.4-5.0 [facility] Comment on above: Performed By: #### B GUM MACHINE FILLER, CMP #### [facility] [address] [place] [address] Dr. Arden Magallon Albumin/Globulin [Mass ratio] 1.2 {ratio} Normal [facility] Comment on above: Performed By: #### B GUM MACHINE FILLER, CMP #### [facility] [address] [place] [address] Dr. Arden Magallon ALP [Catalytic activity/Vol] 74 U/L Normal 46-116 [facility] Comment on above: Performed By: #### B GUM MACHINE FILLER, CMP #### [facility] [address] [place] [address] Dr. Arden Magallon ALT [Catalytic activity/Vol] 28 U/L Normal 14-59 [facility] Comment on above: Performed By: #### B GUM MACHINE FILLER, CMP #### [facility] [address] [address] [address] Arden Magallon Anion gap [Moles/Vol] 11.9 mmol/L Normal [facility] Comment on above: Performed By: #### B GUM MACHINE FILLER, CMP #### [facility] [address] [address] [address] Arden Magallon AST [Catalytic activity/Vol] 18 U/L Normal 15-37 [facility] Comment on above: Performed By: #### B GUM MACHINE FILLER, CMP #### [facility] [address] [address] [address] Arden Magallon Bilirubin [Mass/Vol] 0.4 mg/dL Normal 0.2-1.0 [facility] Comment on above: Performed By: #### B GUM MACHINE FILLER, CMP #### [facility] [address] [address] [address] Arden Magallon Calcium [Mass/Vol] 9.7 mg/dL Normal 8.5-10.1 [facility] Comment on above: Performed By: #### B GUM MACHINE FILLER, CMP #### [facility] [address] [address] [address] Arden Magallon Chloride [Moles/Vol] 105 mmol/L Normal 98-107 [facility] Comment on above: Performed By: #### B GUM MACHINE FILLER, CMP #### [facility] [address] [address] [address] Arden Magallon CO2 [Moles/Vol] 26.3 mmol/L Normal 21.0-32.0 [facility] Comment on above: Performed By: #### B GUM MACHINE FILLER, CMP #### [facility] [address] [address] [address] Arden Magallon Creatinine [Mass/Vol] 1.31 mg/dL Critically high 0.55-1.02 [facility] Comment on above: Performed By: #### B GUM MACHINE FILLER, CMP #### [facility] [address] [address] [address] Arden Magallon EGFR-AF KITTITIAN 47 mL/min/1.73m2 Critically low >=60 [facility] Comment on above: Performed By: #### B GUM MACHINE FILLER, CMP #### [facility] [address] [address] [address] Arden Magallon EGFR-NON AF KITTITIAN 38 mL/min/1.73m2 Critically low >=60 [facility] Comment on above: Performed By: #### B GUM MACHINE FILLER, CMP #### [facility] [address] [address] [address] Arden Magallon Globulin (S) [Mass/Vol] 3.3 g/dL Normal [facility] Comment on above: Performed By: #### B GUM MACHINE FILLER, CMP #### [facility] [address] [address] [address] Arden Magallon Glucose [Mass/Vol] 111 mg/dL Critically high 74-106 [facility] Comment on above: Performed By: #### B GUM MACHINE FILLER, CMP #### [facility] [address] [place] [address] Dr. Arden Magallon Potassium [Moles/Vol] 4.2 mmol/L Normal 3.5-5.1 [facility] Comment on above: Performed By: #### B GUM MACHINE FILLER, CMP #### [facility] [address] [place] [address] Dr. Arden Magallon Protein [Mass/Vol] 7.3 g/dL Normal 6.4-8.2 [facility] Comment on above: Performed By: #### B GUM MACHINE FILLER, CMP #### [facility] [address] [place] [address] Dr. Arden Magallon Sodium [Moles/Vol] 139 mmol/L Normal 136-145 [facility] Comment on above: Performed By: #### B GUM MACHINE FILLER, CMP #### [facility] [address] [place] [address] Dr. Arden Magallon Urea nitrogen [Mass/Vol] 24.0 mg/dL Critically high 7.0-18.0 [facility] Comment on above: Performed By: #### B GUM MACHINE FILLER, CMP #### [facility] [address] [place] [address] Dr. Arden Magallon Urea nitrogen/Creatinine [Mass ratio] 18.3 mg/mg Normal [facility] Comment on above: Performed By: #### B GUM MACHINE FILLER, CMP #### [facility] [address] [place], [place] [address] Dr. Arden Magallon TROPONIN, HIGH SENSITIVITYon 03-17-2022 HSTROP 8.6 pg/mL Normal 4.0-51.3 [facility] Comment on above: Result Comment: CUT- OFF POINTS HAVE BEEN ESTABLISHED BASED ON THE FOURTH UNIVERSAL DEFINITIONS OF MYOCARDIAL INFARCTION. THE UPPER REFERENCE LIMIT (URL) OF TROPONIN, DEFINED THE 99TH PERCENTILE OF cTnI DISTRIBUTION IN A REFERENCE POPULATION, HAS BEEN CONFIRMED THE DECISION THRESHOLD FOR MS DIAGNOSIS. Performed By: #### C BC #### [facility] [id number] Arden Magallon Coding Summary.on 03-04-2022 Coding Summary. CD:[id number] Gh 0bWw+PGhlYWQ+GI9ZERPxN 40zrETitJ8JP5kTMP2LIJI MYGHVHE3BMQ9cnQV2DUvxR 2VybiAv YzsszFEwEC60GJp7WQJ3xN snZNsoeU9txVRyF1k1HsKe OF24xH52STgmPNAnJlH4Oo ZpbjsgbWFy P4lkJsNmpVZsLjl+PHRhYm xlIHdpZHRoPScxMDAlJyBz mTksJS5yFu9sRPAiPFWasU xhcHNlOiBj y5fdFLGhFSukPZ4jdAwhU0 GmgJQ3KIHbu0f3Op87mWS+ WRJjXFU6yMqcUIhnr767Fu Koa9joIYK1 eQAnPDuuQCJ9Z92jp7F6YA PeZLEjUJY6kMH4lM4ytBin ekupD1BemCCrWkC9HAP5rV EapW0hxFmb rpfkbH1xVnb+O99YMQ2GPH FOBP8GVit5B6EpNqjdlYE+ DU48OPEjGZ83zBIrgQYjy4 heeOh3IxWa TIEsCUA6rQjeIFmau4RwIE VjU09oaJZqg5R2XLRchLad rBYmVtTeiOE3cI8bDGmwfu obu1ilqjsl Giesl5oqer64yW02K23wLL szTQFuLDC4FALqCWPqeUxp qu7rwZ5wOk9+ZAtra3vpi5 tysAv8IfAg TLMyziOffUtiGAR2l3ZtTj 74Z3LxnQpek4KzUhv6ww05 dDCln9C6wHV9BJehYXYaeS 9kEVceZcG8 XPPiRiQplW79mEPyEKovYh 9znXkvrOgqFD7tCELzpfah THHcjH8hXUKdcARptXuqPI 4wNTBpbjtm f196AyVpVYC4WHAlbNAtW5 JikZ2mOtJdVIEmDARsM6Bb zUYkJLqtU305NVqpApU3WG DwcwGqO9Fs AFBkeBdfLhP3f6U4Qq8Vp2 KkbppqAVO2INqcMFD8XsI2 LxXaMuA5V9FfEbj8JCQzoX eaRQ6kX3Qt NUPezcrtsblrfMD4VAEaOP UyaI03gQEiXMlvPs9zo6A3 i428IVNbELQjdG42Hb0wtK ogMTBwdCBU rN3apoaof6ywrremLbRtQX DyKPf1BAg7FAUaqMyrMsHv ELP3GhL9YUW4zMOqfQ7hiQ gwuosnlI0s Oyc+I02pyN1ySED8NNX0dy ntOJNccaKuFW63HG40W1Ej PjwvdGFibGU+PGRpdiBzdH qwSJ7nGuJs v7tfr7GzAOdzB6XtDJOcHV xbWtz5YDDvQGM8vEN3wM9q GVPiHMscb3N9eLK4X3Pjvg Qtqm2qe1fl CMYiTMhmX00irUDja0O9XD HojRS9MSZotYlgSgEvsP16 Oyc+OSLlxHdfk7QjUhoxk2 bog3jfjHp1 NcDuAEGurfAghSxhKAY8v0 ThIl53I59wVGsxMQHfOQGl NTRtXWTplJapye4ebF6yOz 8+PGNvbCB3 vBF6wO8uJHVsVmA8YAagV6 02GnQuvQWvYzsli9jgb5cm tHf5ZxKeRASoawAqrBjwRQ Z3l1TvEm61 H09bGZvcSOUpRQMzUZTqXW WduLduny3zdT3tAm9+PC9j o8guxb32sQ06aJM+PHRkIH T3hYjvCGnr TXZroR8qIDedYiU5TVSpAx TalK62iXYkGAtcOt7dnYsv jOedKZ3tMYRkwfiqk481Ln Gid0deVPTb eEIzEWrwRMU1I46ai2C3GT DlIWHoFPC6lST9sY5ixLzv bjogbGVmdDsgdmVydGljYW hvXUdzW913 IHRvcDsnPlBhdGllbnQgTm IoBPm5M7FcYfi6KCNaxQxt HV6fjXTzAWapWm6egLjgeK pqXX5gHPBz kvwtz828LfMrl2nsRLIbpF EyLSgdMWE1L42bw7N1IAZn VMCbFKC6mWE6mB4inUirem ogbGVmdDsg xxEalGcyMPdyVAfnF005TZ RvcDsnPkJpcnRoIERhdGU6 DY46WZ10cAVao4N0sHH2B3 BhZGRpbmct enhzmJE9GHCuXVOvyC11Qx 4azJyfVy1iZKJsDHT7UVSa hPHeZ1AhoF9cYmZiGMHdHQ RpN4IxyJTn YTkhJ400EGauNyQ1KIVels VgE3MjRWHnoYflAtU4a6S1 Br6WS3H2IZ56WC75bEHaj3 C7eDY3B8Dp VTNtndwjkwcffIV6XKDsQV SixZ79Sn6zaNrdSk7eOYMy BHC3SQJrfNQzV6FboA9wNw AjMDAwMDAw Q8RspTZpIMjyM333JItgVm B4RVEcozIvK0LuRFZemQyh CaV8b1J9Ub0BKBp3YL69QI 49zVYnb6D6 bLM1W3AqSPJsnouwucadaD E8NZBtAREhyE01Ju7qnSes Fa8sWDDbOME7XEMqlGBjY5 ZtgV5kNyDo FMMxMEDjL6AehUJlZSnwM4 21GKwwAsH4TILiadHjL4Gp DIYrfRgaQjX8s5G8Se1KQX HhRQ97TSH3 oYM5MV85PY42P5DcLjiyeF FibGU+PHRhYmxlIHdpZHRo ORedLDTeOxHjnJegSU1nZj 9yZGVyLWNv fDflxNMbCtRes6mzRARxYY zoLO9ojSrhK8JrjVI6MHPa t2f8Zq54L49iZ6OqySG+PG LcnDF3iCN0 zM0vSwTbSgU3PFjvP620Ww DdxUTfWxkmq2vhp1eqsBp4 VoI4DIQyqmEnnWtwDZF0d9 CrOi86R81x IHdpZHRoPSIxNSUiIHZhbG hihk7dmW8pCt1+PGNvbCB3 fYP3bZ8yMhUvGnF1SPyoZ2 49InRvcCIv Njefx4ath0vtxPc8NlSnEO SkcqYmvPhsZVJ9o6ClSb22 N2EarXeju2UfAbs2gf58pC Fqs5H6sUY0 T4CgMSKjregdrLTwsMawGQ 4hORPthtidEUZeoR4pERBc E4r1JiMgOvU8HMikL9Fieb F7MYNfgWXz YAdoFJH2T62jl9N2TYWrIM NnKRD7fWD1pJ9bvNsosnso bGVmdDsgdmVydGljYWwtYW moQ441DPWm pUpzKJDjnW6hFIUbhRWpwQ moLF7wKAIqqhzdKwJOOHTp LCBERUxFRTwvdGQ+PHRkIH W7qNnjAJyq FMLstO7aRMNgL5z4CgSdGx V6RBhgD0ThYWDawgnvSc37 bS2dMfSnGfM1HAtwV2Xxnq Z7CIEcfFIy EJgqQYX8R61fd8A2MNSgLC UnZHZ8zRZ1zK2goYrsnwpp bGVmdDsgdmVydGljYWwtYW mgP076BHYb cHumKcKyAgO0RwB6TaD8O7 BmErb8YRNaeAfdXX7shFZp CZfzXz8wnTllkVxzCM1uYH BpbjtwYWRk fG5bRUOmiKHrrHumNT1bEN Ugxmbyj013VoCoABU4YLJi kIMsK2LubX1nRpThICKvXL MqL1OvzMMy OMvfG243IIncVrN6KHSqwq NiA2UrCNCcjMqyPfD7x3G0 Yi05ByTMDXCrwwpzlFM+PH BsRIY1nMgs UKcoWMUerM8aSVMfA2l2Dz QpMoR7BHdiH7ZzVOKzhumj Yz32vC0yZkKfMkK6VBldW1 LevvG7RADt iEQySYjkCCR7T92gr7Z2XE SiPEDwPPX5pCE4lZ3bfTou bjogbGVmdDsgdmVydGljYW jiUKlwG441 IHRvcDsnPkZlbWFsZTwvdG Q+YIFvHZZ2aUrqGUzaFNCl eB6vBSWlF9y3KqDwIyU4YP egG0XmUEAl izbbVw99dY1iTsPrVxP8QV jcW7HvzeQ5ESSayMOiBLto CDF7S57qg5N1INDzRWXqVT D5wNJ4yD4q bGlnbjogbGVmdDsgdmVydG glMLutGRkbB815LOFutPeu ReWdKKRwXW5olXzvtOT+PC 87cf87G5Ae CwckBzw9WYCtPFD5zJX6cN 3dOVWqPLsii8Z0mEY4Y2Se orHbff0cf3ifZAKaZWzsE5 2phLDea6C8 GHByfKK7QNQbkRexRhElsQ 93Oyc+WRYelKeun8RmJsgj p0ifn3zvoQg1MtKpLCBdir FsaWduPSJ0 d1JnRn90U40uRIjrZXKjOE RrHCPgAUYxmOhimn5udH6s Ii8+VVTtoPB1hVN3nC1tGx KxZcZ7MAou Q988BeHykEPxMrepu8hgr3 ezsMl2SaSpTNGocpLqsHhm UCQ7s9FeFs85O3FqnZrpn5 ZkYbw6gx40 tLEet6V5lCP0U4ShDGMvug qaxRQykCbbGY8bBLXqkrzb ZHVbgJ8iWZVxP8x8YnZkVj J0PYgxN2Yf grO3BCMicKFdLWVlvPTXhK 4tgykaa6hkstitCqFgOTJx IZb8JPr5DLCqfKaoBmGjMS O0BjW5QBM7 eSGvrT6cvOdmteyjfZ3wLn c+CHs4y7ezxFDzEP4qfNB8 FG03AT29kWVzd2X6iQK3B0 BhZGRpbmct exhpwBC6JMWlGXWojO04Yw 0maPqzCt5yPCJdGRG6LBGm rNJuU2GejS0cPpUyNKFxRB NiK4KbpLMa AUqdA761SHzkUlT8CVRwme KjX8HeZNRziZbpRcG7h5Y0 Tg5AIA25NS10CK78gTNsp0 N1kFO6B1Lj ZYOnimophuevaAT6AAAzFJ SbjJ22Pe9sdVteOs7aGHJs XPK8CCTvoUUrV4HpxJ2lZy AjMDAwMDAw N0WemOHlDSxwD197KSgaHw U8MHZpeyQmA2RsIOFtlPbd SvD6f7E0Nz7FCo05WT84EJ 31hZJrr9C4 uJN0V5JbTMWriwtlmjbklG I6LRVrVWRxqT64Fm7iyZeu Xh6hMUJwKAM0KNOulTRkG6 BzoN8mGqAr PILpCZFbY6WoqJKkMZcxG0 34OIxzZiB7YOJasiZrJ3Ej RKGnjSylNoM8s4I7Xj8FXQ ygqtj1G2Ck PjwvdHI+IC87QCKfJP11bV TesVUxm5lhkCq0KbGeCLSs GJO3oDvyENdcc7QaBEFxL4 2oeHLrf1L4 IGNv (more content not included)... Normal [facility] Auto Diffon 02-24-2022 Basophils/100 WBC (Bld) 4.4 % High 0.0-2.0 [facility] Comment on above: Order Comment: Order Added by Discern Expert. Performed By: #### 1 [id number], 5248114, 07789105, 6605889, 7390135 #### [facility] [address] [place] [address] Basophils/Leukocytes Auto (Bld) [Pure # fraction] 0.3 E9/L High 0.0-0.2 [facility] Comment on above: Order Comment: Order Added by Discern Expert. Performed By: #### 1 [id number], 4539049, 86426729, 5903543, 2911468 #### [facility] [address] [place] [address] Eosinophils/100 WBC (Bld) 3.8 % Normal 0.0-8.0 [facility] Comment on above: Order Comment: Order Added by Andrew Expert. Performed By: #### 1 3075950, 5497373, 61873805, 9510411, 0136283 #### [facility] [address] [place] [address] Eosinophils/Leukocyte s Auto (Bld) [Pure # fraction] 0.3 E9/L Normal 0.0-0.5 [facility] Comment on above: Order Comment: Order Added by Discern Expert. Performed By: #### 1 0118067, 6023070, 02545695, 1403204, 7538358 #### [facility] [address] [place] [address] Lymphocytes/100 WBC (Bld) 31.3 % Normal 14.0-50.0 [facility] Comment on above: Order Comment: Order Added by Andrew Expert. Performed By: #### 1 0671001, 7827992, 89729035, 5349964, 1343396 #### [facility] [address] [place] [address] Lymphocytes/Leukocyte s Auto (Bld) [Pure # fraction] 2.3 E9/L Normal 1.0-4.0 [facility] Comment on above: Order Comment: Order Added by Andrew Expert. Performed By: #### 1 7242796, 7422290, 79819163, 4512442, 9437994 #### [facility] [address] [place] [address] Monocytes/100 WBC (Bld) 12.8 % Normal 4.0-14.0 [facility] Comment on above: Order Comment: Order Added by Andrew Expert. Performed By: #### 1 3307600, 1623834, 81722674, 5406083, 3340339 #### [facility] [address] [place] [address] Monocytes/Leukocytes Auto (Bld) [Pure # fraction] 0.9 E9/L Normal 0.2-1.0 [facility] Comment on above: Order Comment: Order Added by Andrew Expert. Performed By: #### 1 9765673, 7493312, 57759159, 8571622, 1141417 #### [facility] [address] [place] [address] Neutrophils/100 WBC (Bld) 47.7 % Normal 36.0-75.0 [facility] Comment on above: Order Comment: Order Added by Discern Expert. Performed By: #### 1 1709460, 4086225, 22069060, 5977676, 8993337 #### [facility] [address] [place] [address] Neutrophils/Leukocyte s Auto (Bld) [Pure # fraction] 3.5 E9/L Normal 2.0-7.5 [facility] Comment on above: Order Comment: Order Added by Discern Expert. Performed By: #### 1 8369201, 0431702, 05636976, 5295409, 7266580 #### [facility] [address] [place] [address] BMPon 02-24-2022 Creatinine [Mass/Vol] 0.9 mg/dL Normal 0.5-1.3 [facility] Comment on above: Performed By: #### 1 0898006, 9189229, 50265940, 7195504, 6767669 #### [facility] [address] [place] [address] Urea nitrogen [Mass/Vol] 20 mg/dL Normal 5-21 [facility] Comment on above: Performed By: #### 1 7727453, 8447960, 74932216, 3047710, 1145887 #### [facility] [address] [place] [address] Urea nitrogen/Creatinine [Mass ratio] 22 No Units High 10-20 [facility] Comment on above: Performed By: #### 1 9040023, 0035050, 04841925, 8486040, 8345233 #### [facility] [address] [place] [address] Anion gap [Moles/Vol] 13 mmol/L Normal 6-16 [facility] Comment on above: Performed By: #### 1 7040893, 0013557, 36661220, 2385115, 9577384 #### [facility] [address] [place] [address] Calcium [Mass/Vol] 9.9 mg/dL Normal 8.9-11.1 [facility] Comment on above: Performed By: #### 1 7088522, 6677537, 54057932, 0121283, 7325270 #### [facility] [address] [place] [address] Chloride [Moles/Vol] 104 mmol/L Normal 101-111 [facility] Comment on above: Performed By: #### 1 0888565, 5480712, 19584479, 0899750, 5803553 #### [facility] [address] [place] [address] CO2 [Moles/Vol] 24 mmol/L Normal 21-31 [facility] Comment on above: Performed By: #### 1 2839027, 2767321, 85924610, 5296554, 7417390 #### [facility] [address] [place] [address] Glucose [Mass/Vol] 136 mg/dL Normal 55-199 [facility] Comment on above: Result Comment: If t his glucose result represents a fasting glucose, interpretation should refer to the following reference range: 55-99 mg/dL Performed By: #### 1 2756795, 4927636, 29923464, 4225718, 4969624 #### [facility] [address] [place] [address] Potassium [Moles/Vol] 3.7 mmol/L Normal 3.5-5.3 [facility] Comment on above: Performed By: #### 1 2342563, 6890710, 08189359, 2969231, 0734671 #### [facility] [address] [place] [address] Sodium [Moles/Vol] 137 mmol/L Normal 135-145 [facility] Comment on above: Performed By: #### 1 6470952, 6123566, 75392680, 3617421, 3228235 #### [facility] [address] [place] [address] CBC w/ Auto Diffon 2 Erythrocyte distribution width (RBC) [Ratio] 15.3 % High 10.9-14.2 [facility] Comment on above: Performed By: #### 1 4513524, 5075340, 81869276, 6847092, 2065301 #### [facility] [address] [place] [address] Hematocrit (Bld) [Volume fraction] 43.0 % Normal 34.0-46.0 [facility] Comment on above: Performed By: #### 1 8794749, 7555287, 70963157, 9767731, 9379091 #### [facility] [address] [place] [address] Hemoglobin (Bld) [Mass/Vol] 14.4 g/dL Normal 12.0-16.0 [facility] Comment on above: Performed By: #### 1 2172874, 1696944, 43971293, 0944614, 3882452 #### [facility] [address] [place] [address] MCH (RBC) [Entitic mass] 31.0 pg Normal 27.0-34.0 [facility] Comment on above: Performed By: #### 1 2966995, 9175892, 82447363, 6018791, 2174488 #### [facility] [address] [place] [address] MCHC (RBC) [Mass/Vol] 33.6 g/dL Normal 31.4-36.0 [facility] Comment on above: Performed By: #### 1 2177886, 2962716, 13260901, 5974621, 1028921 #### [facility] [address] [place] [address] MCV (RBC) [Entitic vol] 92.2 fL Normal 80.0-100.0 [facility] Comment on above: Performed By: #### 1 1112596, 0124610, 91607890, 7737023, 1071573 #### [facility] [address] [place] [address] Platelet mean volume (Bld) [Entitic vol] 9.2 fL Normal 6.4-10.8 [facility] Comment on above: Performed By: #### 1 0655473, 2274446, 08886549, 9230276, 1131964 #### [facility] [address] [place] [address] Platelets (Bld) [#/Vol] 137.0 E9/L Low 150.0-500.0 [facility] Comment on above: Performed By: #### 1 5206713, 7337222, 43732810, 2208857, 7534070 #### [facility] [address] [place] [address] RBC (Bld) [#/Vol] 4.7 E12/L Normal 4.3-5.9 [facility] Comment on above: Performed By: #### 1 4607317, 9734974, 81387871, 0795310, 8205436 #### [facility] [address] [address] WBC corrected for nucl RBC Auto (Bld) [#/Vol] 7.3 E9/L Normal 4.0-11.0 [facility] Comment on above: Performed By: #### 1 1209148, 4078704, 05391418, 3502735, 2269028 #### [facility] [address] [id number] CHEMISTRYOrdered By: SYSTEM SYSTEM on 02-24-2022 Anion [...] 25.4 s Normal 25.1 - 36.5 second(s) FT Auto Coag INR Coag (PPP) [Relative time] 1.1 {INR} Invalid Interpretation Code [facility] Auto Coag PT Coag (PPP) [Time] 13.4 s High 10.2 - 12.9 second(s) [facility] Auto Coag CT Head or Brain w/o [...] MD Transcribed by: KHANH Technologist: EMELINA Normal [facility] Consent for Treatmenton 02-06 Consent for Treatment [id number] 0CD:127 Normal [facility] Discharge Instructionson Discharge Instructions [id number] 0CD:127 Normal [facility] ED Clinical Summaryon 2021 ED Clinical Summary [address] [id number] ED Clinical Summary Person Information Name: ZORAIDA GAYTAN/[facility] Age: 86 Years : 1935 Sex: Female Language: Jamaican PCP: LACEY FREY MD Marital Status: Single Visit Id: [...] 02/24/2022 10:32:06 02/24/2022 10:32:06 02/24/2022 10:32:06 ADDRESS: [address] [facility] [id number] PHYS DOC NOTES: MEDICAL INFORMATION: Prescriptions Given: PATIENT EDUCATION INFORMATION: Instructions: Hypertension, Adult Follow up: With: Address: When: LACEY FREY [facility] [place] [address] [place] ([employer] In 3 days 02/27/2022 Comments: Increase Losartan to 100 mg a day. Continue Metoprolol 50 mg a day. Make sure to take your blood pressure twice a day and follow-up with Dr. Frey tomorrow at 1 PM at her office. Return to the emergency room if your headache recurs, chest pain, dizziness or any new symptoms. DIAGNOSIS: 1:Accelerated hypertension Normal [facility] ED Note-Physicianon 02-25-20 ED Note-Physician Basic Information Time Seen: Norma Palacios, Demond Collins 02/24/2022 08:14 Chief Complaint Pt had surgery on right eye this AM with [facility]. Pt reports her BP was elevated this AM before and after surgery. BP was over 200 at diane. Had a headache at the time, but [...] reported headache. 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 In the emergency room [...] prescription medications Follow-up With When Contact Information LACEY FERY In 3 days 02/27/[address] [place], [place] [id number] Business (1) Additional Instructions: Increase Losartan to [...] (02/24/22 0 (more content not included)... Normal [facility] Comment on above: Result Comment: Elec tronically Signed By: Demond Green M.D.\.freddy\Date and Time Signed: 02/24/22 11:07 EDT ED [...] ? Avoi (more content not included)... Normal [facility] ED Patient Summaryon 022 ED Patient Summary [address] [address] Patient Discharge Instructions Person Information Name: ZORAIDA GAYTAN Age: 86 Years Arrival Date: 02/24/2022 08:11:05 Discharge Diagnosis: 1:Accelerated hypertension Primary Care Physician: LACEY FREY MD Provider Information Primary Provider: Demond Green M.D. Advanced Utility Specialist:None The exam and treatment you received in the Emergency Department were for an urgent problem and are not intended as complete care. It is important that you follow up with a doctor, nurse practitioner, or physician?s critical care physician assistant for ongoing care. If your symptoms become worse or you do not improve as expected and you are unable to reach your usual health care provider, you should return to the Emergency Department. We are available 24 hours a day. ZORAIDA GAYTAN has been given the following list of patient education materials, prescriptions and follow-up instructions: Follow-up Instructions: With: Address: When: LACEY FREY [address] [place], [place] [id number] [place] ([employer] In 3 days 02/27/2022 Comments: Increase Losartan [...] opioids can be used to help relieve yhhiaeqd-qu-lmpykh pain and are often prescribed following a [...] ? Visit (more content not included)... Normal [facility] HEMATOLOGYOrdered By: SYSTEM SYSTEM on [...] 92.2 fL Normal 80.0 - 100.0 fL [facility] HemeAutoSS Platelet mean volume (Bld) [Entitic vol] 9.2 fL Normal 6.4 - 10.8 fL [facility] HemeAutoSS Platelets (Bld) [#/Vol] 137.0 E9/L Low 150.0 - 500.0 E9/L [facility] HemeAutoSS RBC (Bld) [#/Vol] 4.7 E12/L Normal 4.3 - 5.9 E12/L [facility] HemeAutoSS WBC corrected for nucl RBC Auto (Bld) [#/Vol] 7.3 E9/L Normal 4.0 - 11.0 E9/L FT HemeAutoSS PT & PTTon 02-24-2022 INR Coag (PPP) [Relative time] 1.1 {INR} Invalid Interpretation Code [facility] Comment on above: Result Comment: INR results are specifically intended to assess patients stabilized on long-term Anticoagulation therapy suggested INR?s ?Less Intensive Anticoagulation? 2.0 ? 3.0 Conventional Range 3.0 ? 4.5 Performed By: #### 1 [id number], 4975670, 80771165, 1128273, 2424543 #### [facility] [address] [place] [address] PT Coag (PPP) [Time] 13.4 second(s) High 10.2-12.9 [facility] Comment on above: Performed By: #### 1 2992212, 0585957, 06270495, 4130952, 5480534 #### [facility] [address] [place] [address] aPTT Coag (PPP) [Time] 25.4 second(s) Normal 25.1-36.5 [facility] Comment on above: Result Comment: Hepa rin therapeutic range (represented by Anti-Factor Xa activity of 0.2 - 0.4 U/mL) corresponds to PTT of 56.6 - 109.0 sec. Performed By: #### 1 9849891, 1484038, 94043918, 9983257, 0941041 #### [facility] [address] [place] [address] Troponin 0 Hr.on 02-24-2022 Troponin I.cardiac [Mass/Vol] 8.10 pg/mL Low 10.10-27.10 [facility] Comment on above: Result Comment: The 95% CI (Confidence Interval) PPV (Positive Predictive Value) for myocardial infarction in females is 38 pg/mL, in males 51 pg/mL. The results should be used in conjunction with clinical conditions of myocardial infarction. (Access High Sensitivity Troponin I Instructions For Use, Gwendolyn Preet, May 2018) Performed By: #### 1 6716666, 0260111, 29551641, 9699991, 6386366 #### [facility] [address] [place] [address] XR Chest Single Viewon 02-24 XR Chest [...] am EDT, Trevon Tyler M.D., DISAGREE Normal [facility] Vital Signs Date Time Vital Sign Value Performing Clinician Facility 02-04-2025 14:040 Body height 157.48 cm [facility] 02-04-2025 14:0400 Body mass index (BMI) [Ratio] 23.9 kg/m2 [facility] 02-04-2025 14:0400 Body weight 59.42 kg [facility] 02-04-2025 14:26-0400 Diastolic blood pressure 74 mm[Hg] [facility] 02-04-2025 14:26-0400 Heart rate 58 /min [facility] 02-04-2025 14:26-0400 Systolic blood pressure 177 mm[Hg] [facility] 12-26-2024 13:020400 Body height 157.48 cm [facility] 12-26-2024 13:02-0400 Body mass index (BMI) [Ratio] 24.7 kg/m2 [facility] 12-26-2024 13:020400 Body weight 61.46 kg [facility] 12-26-2024 13:02-0400 Diastolic blood pressure 74 mm[Hg] [facility] 12-26-2024 13:02-0400 Heart rate 69 /min [facility] 12-26-2024 13:02-0400 Systolic blood pressure 169 mm[Hg] [facility] 11-18-2024 13:05-0500 Body height 157.48 cm [facility] 11-18-2024 13:05-0500 Body mass index (BMI) [Ratio] 24 kg/m2 [facility] 11-18-2024 13:05-0500 Body weight 59.56 kg [facility] 11-18-2024 13:05-0500 Diastolic blood pressure 83 mm[Hg] [facility] 11-18-2024 13:05-0500 Heart rate 65 /min [facility] 11-18-2024 13:05-0500 Systolic blood pressure 176 mm[Hg] [facility] 07-09-2024 14:24-0400 Body height 157.48 cm [facility] 07-09-2024 14:24-0400 Body mass index (BMI) [Ratio] 24.3 kg/m2 [facility] 07-09-2024 14:24-0400 Body weight 60.46 kg [facility] 07-09-2024 14:24-0400 Diastolic blood pressure 98 mm[Hg] [facility] 07-09-2024 14:24-0400 Heart rate 57 /min [facility] 07-09-2024 14:24-0400 Systolic blood pressure 212 mm[Hg] [facility] 05-07-2024 13:44-0400 Body height 157.48 cm [facility] 05-07-2024 13:44-0400 Body mass index (BMI) [Ratio] 23.8 kg/m2 [facility] 05-07-2024 13:44-0400 Body weight 58.96 kg [facility] 05-07-2024 13:44-0400 Diastolic blood pressure 69 mm[Hg] [facility] 05-07-2024 13:44-0400 Heart rate 61 /min [facility] 05-07-2024 13:44-0400 Systolic blood pressure 189 mm[Hg] [facility] 01-08-2024 11:43-0400 Body height 157.48 cm [facility] 01-08-2024 11:43-0400 Body mass index (BMI) [Ratio] 22.8 kg/m2 [facility] 01-08-2024 11:43-0400 Body weight 56.84 kg [facility] 01-08-2024 11:43-0400 Diastolic blood pressure 72 mm[Hg] [facility] 01-08-2024 11:43-0400 Heart rate 61 /min [facility] 01-08-2024 11:43-0400 Systolic blood pressure 179 mm[Hg] [facility] 06-08-2023 14:30-0400 Body height 157.48 cm Lacey Frey Other [facility] 06-08-2023 14:30-0400 Body mass index (BMI) [Ratio] 23.13 kg/m2 Lacey Frey Other [facility] 06-08-2023 14:30-0400 Body weight 57.38 kg Lacey Frey Other [facility] 08-31-2023 14:30-0400 Diastolic blood pressure 77 mm[Hg] Lacey Frey Other [facility] 06-08-2023 14:30-0400 Respiratory rate 16 /min Lacey Frey Other [facility] 06-08-2023 14:30-0400 Systolic blood pressure 187 mm[Hg] Lacey Frey Other [facility] Other 12-20-2022 15:20-0400 Body height 157.48 cm Rox ALEXANDALEXA Other [employer] Other 12-20-2022 15:20-0400 Body mass index (BMI) [Ratio] 23.08 kg/m2 Azaicha ALEXANDALEXA Other [employer] Other 12-20-2022 15:20-0400 Body temperature 97 [degF] Azaicha [employer] Other [employer] Other 12-20-2022 15:20-0400 Body weight 57.24 kg Aziz [employer] Other [employer] Other 12-20-2022 15:20-0400 Diastolic blood pressure 85 mm[Hg] Aziz [employer] Other [employer] Other 12-20-2022 15:20-0400 Respiratory rate 16 /min Aziz [employer] Other [employer] Other 12-20-2022 15:20-0400 SaO2% (BldA) [Mass fraction] 100 % Aziz Bakhous Other [employer] Other 12-20-2022 15:20-0400 Systolic blood pressure 170 mm[Hg] Rox Watson Other [facility] Other 02-24-2022 10:12-0400 Diastolic blood pressure 80 mm[Hg] [facility] 02-24-2022 10:12-0400 Heart rate 68 /min [facility] 02-24-2022 10:12-0400 Respiratory rate 15 /min [facility] 02-24-2022 10:12-0400 SaO2% (BldA) [Mass fraction] 98 % [facility] 02-24-2022 10:12-0400 Systolic blood pressure 190 mm[Hg] [facility] 02-24-2022 09:24-0400 Diastolic blood pressure 88 mm[Hg] [facility] 02-24-2022 09:24-0400 Heart rate 66 /min [facility] 02-24-2022 09:24-0400 Respiratory rate 16 /min [facility] 02-24-2022 09:24-0400 SaO2% (BldA) [Mass fraction] 99 % [facility] 02-24-2022 09:24-0400 Systolic blood pressure 190 mm[Hg] [facility] 02-24-2022 08:50-0400 Diastolic blood pressure 100 mm[Hg] [facility] 02-24-2022 08:50-0400 Systolic blood pressure 220 mm[Hg] [facility] 02-24-2022 08:14-0400 Body temperature 98.24 [degF] [facility] 02-24-2022 08:14-0400 Heart rate 74 /min [facility] 02-24-2022 08:14-0400 Respiratory rate 18 /min [facility] 02-24-2022 08:14-5740 SaO2% (BldA) [Mass fraction] 99 % Demond Green [facility] Encounters Encounter Date Encounter Type Care Provider Facility Start: 02-12-2025 End: 02-12-2025 ambulatory MISSY [facility] Start: 02-04-2025 End: 02-04-2025 ambulatory [facility] Work Phone: Start: 02-04-2025 End: 02-04-2025 Patient encounter procedure [facility] Work Phone: Start: 02-03-2025 End: 02-04-2025 Pre-admission assessment Melba Gregorio [facility] Start: 12-26-2024 End: 12-26-2024 ambulatory [facility] Work Phone: Start: 12-26-2024 End: 12-26-2024 Patient encounter procedure [facility] Work Phone: Start: 12-24-2024 Non-patient / Non-visit [facility]ician [facility] Work Phone: Start: 12-23-2024 Non-patient / Non-visit [facility] Work Phone: Start: 11-28-2024 End: 11-28-2024 ambulatory [facility] Start: 11-18-2024 End: 11-18-2024 ambulatory [facility] Work Phone: Start: 11-18-2024 End: 11-18-2024 Patient encounter procedure [facility] Work Phone: Start: 07-09-2024 End: 07-09-2024 ambulatory [facility] Work Phone: Start: 07-09-2024 End: 07-09-2024 Patient encounter procedure [facility] Work Phone: Start: 06-28-2024 End: 06-28-[address] [facility] Start: 05-15-2024 Non-patient / Non-visit [facility] Work Phone: Start: 05-11-2024 Non-patient / Non-visit [facility] Physician [facility] Work Phone: Start: 05-10-2024 Non-patient / Non-visit [facility] Physician [facility] Work Phone: Start: 05-07-2024 End: 05-07-2024 ambulatory [facility] Work Phone: Start: 05-07-2024 End: 05-07-2024 Patient encounter procedure [facility] Work Phone: Start: 05-01-2024 End: 05-01-[address] [facility] Start: 04-25-2024 Non-patient / Non-visit [facility] Physician [facility] Work Phone: Start: 03-28-2024 End: 03-28-[address] [facility] Start: 01-08-2024 End: 01-08-2024 ambulatory [facility] Work Phone: Start: 01-08-2024 End: 01-08-2024 Patient encounter procedure [facility] Work Phone: Start: 12-28-2023 Non-patient / Non-visit [facility] Physician [facility] Work Phone: Start: 06-08-2023 End: 06-08-2023 ambulatory Lacye Frey Other [facility] Other Start: 06-08-2023 Office outpatient visit 15 minutes Lacey Frey [facility] Start: 05-25-2023 End: 05-25-2023 ambulatory Lacey Frey Other [employer] Other Start: 05-25-2023 Telephone encounter Lacey rFey [facility] Start: 04-25-2023 End: 04-25-2023 ambulatory Lacey Frey Other [employer] Other Start: 04-25-2023 Telephone encounter Lacey Tk [facility] Start: 03-23-2023 End: 03-23-2023 ambulatory Lacey Frey Other [employer] Other Start: 03-23-2023 Telephone encounter Lacey Frey [facility] Start: 02-20-2023 End: 02-20-2023 ambulatory Lacey Frey Other [employer] Other Start: 02-20-2023 Telephone encounter Lacey Frey [facility] Start: 01-17-2023 End: 01-17-2023 ambulatory Lacey Frey Other [employer] Other Start: 01-17-2023 Telephone encounter Lacey Frey [facility] Start: 12-20-2022 End: 12-20-2022 ambulatory Rox Watson Other [employer] Other Start: 12-20-2022 [facility] visit new patient Rox Watson [facility] Start: 12-19-2022 End: 12-19-2022 ambulatory Lacey Frey Other [employer] Other Start: 12-19-2022 Telephone encounter Lacey Tk [facility] Start: 12-10-2022 End: 12-11-2022 ambulatory AALIYAH POOLE Facility:[facility] Start: 11-15-2022 End: 11-15-[address] GEORGIE WELLER Facility:[facility] Start: 10-09-2022 End: 10-09-[address] RAMIRO Puentes Facility:[facility] Start: 09-30-2022 End: 10-01-2022 ambulatory RADHA HARRINGTON Facility:[facility] Start: 09-26-2022 End: 09-26-[address] HARJINDER RAMIREZ Facility:[facility] Start: 09-21-2022 End: 09-22-[address] LACEY FREY Facility:[facility] Start: 09-18-2022 End: 09-18-[address] GEORGIE WELLER Facility:[facility] Start: 09-11-2022 End: 09-11-[address] RAMIRO Puentes Facility:[facility] Start: 09-03-2022 End: 09-04-2022 ambulatory RADHA HARRINGTON Facility:[facility] Start: 09-03-2022 End: 09-03-[address] RAMIRO Puentes Facility:[facility] Start: 08-30-2022 End: 08-30-[address] LACEY FREY Facility:[facility] Start: 08-26-2022 End: 08-26-[address] LACEY FREY Facility:[facility] Start: 08-24-2022 End: 08-24-[address] LACEY FREY Facility:[facility] Start: 08-17-2022 End: 08-17-[address] LACEY FREY Facility:[facility] Start: 07-02-2022 End: 07-02-[address] LACEY FREY Facility:[facility] Start: 04-15-2022 End: 04-16-[address] LACEY FREY Facility:[facility] Start: 04-08-2022 ambulatory AALIYAH POOLE Facility:H 1 Start: 04-06-2022 End: 04-07-2022 ambulatory SUSAN LONG Facility:[facility] Start: 03-17-2022 End: 03-17-[address] LACEY FREY Facility:[facility] Start: 02-24-2022 End: 02-24-2022 Emergency department patient visit Demond Green [facility] Plan of Treatment Date Care Activity Detail Author Start: 12-26-2024 Patient referral [facility] Work Phone: Patient referral [facility] Work Phone: US.doppler Carotid a rteries - bilateral [facility] Payers Date Payer Category Payer Unknown [id number] 1959 Self-pay 1959 Unknown [id number] 1935 Unknown [id number] 2.16.84 [id number] 1935 Unknown [id number] 2.16.84 0.1.477663.3.579.2.593 1935 Unknown [id number] 2.16.84 0.1.638374.3.579.2.593 1935 Unknown [id number] 2.16.84 0.1.689809.3.579.2.593 1935 Unknown [id number] 2.16.84 0.1.511576.3.579.2.593 1935 Unknown [id number] 2.16.84 0.1.428054.3.579.2.593 1935 Unknown [id number] 2.16.84 0.1.803350.3.579.2.593 1935 Unknown [id number] 2.16.84 0.1.054483.3.579.2.593 1935 Unknown [id number] 2.16.84 0.1.334365.3.579.2.593 1935 Unknown [id number] 2.16.84 0.1.619963.3.579.2.593 1935 Unknown [id number] 2.16.84 0.1.345699.3.579.2.593 1935 Unknown [id number] 2.16.84 0.1.867188.3.579.2.593 1935 Unknown [id number] 2.16.84 0.1.382385.3.579.2.593 1935 Unknown [id number] 2.16.84 0.1.323653.3.579.2.593 1935 Unknown [id number] 2.16.84 0.1.472654.3.579.2.593 1935 Unknown [id number] 2.16.84 0.1.891433.3.579.2.593 1935 Unknown [id number] 2.16.84 0.1.063812.3.579.2.593 1935 Unknown [id number] 2.16.84 0.1.106113.3.579.2.593 1935 Unknown [id number] 2.16.84 0.1.177992.3.579.2.593 Medicare [id number] 2. [id number] Unknown [id number] Social History Date Type Detail Facility Tobacco smoking status Unknown i f ever smoked [facility] Sex Assigned At Female [facility] Start: 1935 Sex Assigned At Female F [facility] Tobacco smoking stat [facility] Unknown if ever smoked [facility] Work Phone: Start: 02-24-2022 End: 11-18-2024 Sex Female (finding) [facility] Tobacco smoking status [facility] Clinical Notes 02-24-2022 to 02-12-2025 Note Date & Type Note Facility 02-12-2025 Note [facility] Subjective Constantinosintia Perez Sophie is a 89 y.o. year old female [...] presented to the emergency room at the [facility] with elevated blood pressure [...] ordered after her last visit with Dr. Grubbs due to not wanting to complete the [...] atorvastatin (Lipitor) 40 mg tablet, Take 1 ta (more content not included)... [facility] 02-12-2025 Note Patient here for a 3 month follow up. Patient states she has been feeling fine. Patient states she had 2 test going that day and she didn't want to do 2 test in one day. Patient states she will do it when she gets around to it. Patient states she has pulsating in her ears and Dr. Frey was unable to find a reason why she is having the pulsating. Patient denies chest pain, dyspnea with exertion. Patient lidia dizziness, chest pain, palpitations, leg swelling or heart burn. Review of Systems Constitutional: Negative. [facility] 11-28-2024 Note [facility] Subjective Zoraida Gaytan is a 89 y.o. year old [...] presented to the emergency room at the [facility] with elevated blood pressure [...] troponin high-sensitivity 8.8, (more content not included)... [facility] 11-18-2024 Evaluation note Diagnosis Onset Date Resolution Resistant hypertension acute [facility] 2024 1:01pm Objective pulsatile tinnitus of both ears acute December 12:58pm Resistant hypertension acute [facility] 2024 12:58pm [facility] Work Phone: 1(731) 887-601402-10-2025 Evaluation note* Diagnosis Onset Date Resolution Status Admit Date Resistant hypertension acute [facility] 2024 1:01pm Chronic kidney disease, stag e 3b acute December 26, 2024 12:58pm Objective pulsatile tinnitus of both ears acute December 26, 2024 12:58pm Resistant hypertension acute [facility] 2024 12:58pm [facility] Work Phone: 1(339) 912-709309-20-2024 NotePer assessment heart rates in the 50s No concerning symptoms at this time We will continue to monitor Discussed with patient to call office for any lightheadedness, dizziness, passing out she voiced understandingUnAdena [facility] 06-28-2024 NoteHypertension is stable for her blood pressure log is very well- controlled in office is always elevated most likely related to whitecoat syndrome Continue medicines as prescribed including carvedilol, clonidine, hydralazine, losartan, spironolactone Renal function stableUnAdena [facility]ike [facility] Center09-20-2024 Notestable [facility]09-20-2024 NoteUTP CARDIOLOGY PROGRESS NOTE HPI: Zoraida Gaytan is a 88 [...] passing out she voiced understanding RTC 6 monthsUnAdena [facility]ike [facility] Center09-20-2024 NotePt is here for three month follow up. Pt denies sob, chest pain, palpatations. Pt says one of her medications makes her dizzy but she does not know which one. Review of Systems Constitutional: Positive for diaphoresis (1 episode). Neurological: Positive for excessive daytime sleepiness (intermittent). All other systems reviewed and are negative.[facility] 05-01-2024 NoteHypertension is quite variable dependent upon he level of stress [...] Vit D, Thyroid function and Vitamin B levels.[facility]07-24-2024 NoteCurrently stable [facility]07-24-2024 NotePt reports having noted heart rate 49-50's, and denied any significant symptoms associated. Will continue to monitor and D/W pt to call office for lightheadedness, dizziness, near syncope or syncope and she voiced understandingUnAdena Pike Medical Center07-24-2024 NoteUTP CARDIOLOGY PROGRESS NOTE HPI: Zoraida Gaytan is a 88 y.o. female here for hospital F/U HPI 88 yo female presents today for hospital F/U after recent evaluation for bradycardia Patient here for follow up [facility] ED. Says she went shopping with [...] negative ED note- Patient: ZORAIDA GAYTAN MR#: [id number] : 1935 Acct:[id number] Age/Sex: 88 / F ADM Date: 04/25/24 Loc: ER Date of Service: 04/25/[address]: cc: Lacey Frey M.D.; Radha Harrington; Tammy Hayes~ HPI HPI - General [...] place, and time. P (more content not included)...[facility]07-24-2024 NotePatient here for follow up [facility] ED. Says she went shopping with [...] (intermittent). All other systems reviewed and are negative.[facility] 03-28-2024 NoteStable Continue aldactone, fluid restriction and low sodium diet Continue regular exercise and activityUnAdena P[facility] Medical Center 03-28-2024 NoteWell controlled with aldactone currently no edemaUnAdena Pike Medical Center06-20-2024 NoteHypertension is unchanged. Dietary sodium restriction. Continue current medications. Blood pressure will be reassessed in 3 months.[facility]06-20-2024 NotePatient here for 2 mo follow up hypertension and diastolic dysfunction. She had routine labs in January 2024. She denies chest pain, SOB, palpitations, and syncope. Sometimes gets lightheaded upon standing up. Review of Systems Neurological: Positive for excessive daytime sleepiness and light-headedness. All other systems reviewed and are negative.[facility] 03-28-2024 NoteUTP CARDIOLOGY PROGRESS NOTE HPI: Zoraida Gaytan is a 88 [...] - with her evening/bedtime meds, she voiced understandingKettering Health08-31-2023 Evaluation note* Encounter Date Diagnosis Assessment Notes Treatment Notes Treatment Clinical Notes May, Other insomnia (ICD-10 - G47.09) Pt states the ativan does help her insomnia and bp. Denies over-sedation symptoms. May, Resistant hypertension (ICD-10 - I10) Established w [facility] Cardiology. Recommend taking meds daily and keeping record and discussing bps w her provider there. [employer] Other 03-14-2023 Evaluation note* Encounter Date Diagnosis [...] pressure monitor reveals significantly better blood pressure [employer] Other 05-19-2022 Evaluation + Plan noteExtracted from: [...] Troponin 9 Hr. XR Chest Single View [facility]05-19-2022 Hospital Discharge instructions Patient Education 02/24/2022 [...] care provider. This is important. Medicines Take btmx-ayt-zvnlonq and prescription medicines only as told by [...] 09/25/2006 Document Revised: 06/05/2019 Document Reviewed: 06/05/2019 [employer] Patient Education [facility]. Follow Up Care 02/24/2022 08:13:52 With:LCAEY FREY Address: [address] [place] [address] Business (1) When:02/27/2022 10:23:00 Comments:Increase Losartan to 100 mg a day. Continue Metoprolol 50 mg a day. Make sure to take your blood pressure twice a day and follow-up with Dr. Frey tomorrow at 1 PM at her office. Return to the emergency room if your headache recurs, chest pain, dizziness or any new symptoms. [facility] noteNo InformationNortPenn State Health [facility] [employer] Other Evaluation noteNo assessment information available [facility] Work Phone: Evaluation note* Diagnosis Onset Date Resolution Status Chronic kidney disease, stage 3b acute Resistant hypertension acute Weight gain, abnormal acute [facility] Work Phone: History general Narrative - Reported* Type Description Date Medical History HYPERTENSION Medical History RENAL IMPAIRMENT Medical History TOBACCO DEPENDENCE SYNDROME Surgical History TUBAL LIGATION Surgical History CHOLECYSTECTOMY Hospitalization History SEE ABOVE [employer] Other Hospital course Narrative No data available for this section [facility] Discharge instructionsAmbulatory Orders* Referral to Vascular Surgery Time Frame: 12/26/24, Location: None Selected [facility] Work Phone: Hospital Discharge instructions No data available for this section [facility] Progress note No data available for this section [facility] Summary Purpose Family History No Family [...] 3 month f/u November 18, 2024 1:01pm Chief Complaint Admit Date 3 month f/u November 18, 2024 1:01pm Amb Documentation December 23, 2024 2:3 2pm [facility]; elevated BP December 26, 2024 12: 58pm Reason for Visit Admit Date Resistant hypertension November 18 1:01pm Objective pulsatile tinnitus of both ear s December 26, 2024 12:58pm Resistant hypertension December 26, 2024 12:58pm Chief Complaint Admit Date 3 month f/u November 18, 2024 1:01pm Amb Documentation December 23, 2024 2:3 2pm [facility]; elevated BP December 26, 2024 12: 58pm Ear Pain February 04, 2025 2:2 3pm Reason for Visit Admit Date Resistant hypertension November 18 1:01pm Chronic kidney disease, stage 3b December 082024 12:58pm Objective pulsatile tinnitus of both ear s December 26, 2024 12:58pm Resistant hypertension December 26, 2024 12:58pm Additional Source Comments INFORMATION SOURCE (unrecogn ized section and content) DATE CREATED AUTHOR 03/05/2022 [facility] DATE CREATED AUTHOR AUTHOR'S ORGANIZ ATION 12/13/2022 [facility] DATE CREATED AUTHOR AUTHOR'S ORGANIZ ATION 02/15/2025 [facility] REASON FOR VISIT (unrecogniz ed section and content) refillRENAL IMPAIRMENTNo Inf ormationNo InformationNo InformationrefillRefillRefillrefillfollow up Care Teams (unrecognized sec tion and content) Team Status: Active Member Role Status Dates Lacey Frey MD Primary Care Provider Active Team Status: Inactive Member Role Status Dates Lacey Frey MD Primary Care Provide r, Attending Provider Active Start: November 18, 2024 End: November 18, 2024 Team Status: Active Member Role Status Dates Rd Blakely Jr, MD Primary Care Provider Active Start: December 28, 2023 Lacey Frey MD Attending Provider Active St art: December 28, 2023 Team Status: Inactive Member Role Status Dates Lacey Frey MD Primary Care Provide r, Attending Provider Active Start: January 08, 2024 End: January 08, 2024 Team Status: Active Member Role Status Dates Lacey Frey MD Primary Care Provider Active Start: April 25, 2024 Tammy Hayes PA-C Attending Provider Active Start: April 25, 2024 Team Status: Inactive Member Role Status Dates Lacey Frey MD Primary Care Provide r, Attending Provider Active Start: May 07, 2024 End: May 07, 2024 Team Status: Active Member Role Status Dates Lacey Frey MD Primary Care Provide r, Attending Provider Active Start: May 10, 2024 Team Status: Active Member Role Status Dates Lacey Frey MD Primary Care Provider Active Start: May 11, 2024 Andrés Rubio DO Attending Provider Active Sta rt: May 11, 2024 Team Status: Active Member Role Status Dates Lacey Frey MD Primary Care Provide r, Attending Provider Active Start: May 15, 2024 Team Status: Inactive Member Role Status Dates Lacey Frey MD Primary Care Provide r, Attending Provider Active Start: July 09, 2024 End: July 09, 2024 Team Status: Active Member Role Status Dates Lacey Frey MD Primary Care Provider Active Start: December 23, 2024 Valencia Wilkinson CMA Attending Provider Active Start: December 23, 2024 Team Status: Active Member Role Status Dates Lacey Frey MD Primary Care Provider Active Start: December 24, 2024 Maria Isabel Hurtado MD Attending Provider Active Sta rt: December 24, 2024 Team Status: Inactive Member Role Status Dates Lacey Frey MD Primary Care Provide r, Attending Provider Active Start: December 26, 2024 End: December 26, 2024 Team Status: Inactive Member Role Status Dates Lacey Frey MD Primary Care Provide r, Attending Provider Active Start: February 04, 2025 End: February 04, 2025 Goals (unrecognized section and content) Goals may [...] BE BASED ON THE PRIMARY CLINICAL RECORDS. [facility] [employer] provides no warranty or guarantee of the accuracy or completeness of information in this document.
--- NOTE | 2025-04-06 17:33 | ECG_ITS ---
[facility] Test Date: 2025-04-06 Pat Name: ZORAIDA GAYTAN Department: Room: - Gender: Female Test Skein Winder: : 1935 Requested By: [id number] Order Number: [id number] Reading MD: EDVIN GRUBBS M.D. Measurements Intervals [place] Rate: 62 P: 65 SD: 192 QRS: 67 QRSD: 90 T: 48 QT: 426 QTc: 431 Interpretive Statements 1100 Sinus rhythm 1102 Sinus arrhythmia 9110 normal ECG Compared to ECG 12/24/2024 14:12:38 No significant changes Electronically Signed On 04-07-2025 6:56:04 EDT by EDVIN GRUBBS M.D.
--- NOTE | 2025-04-06 17:33 | XR_ITS ---
The [address] [address] Patient Name: ZORAIDA GAYTAN MRN: [id number] date: 1935 Sex: F Assigned Patient Location: ER Current Patient Location: ED.MAIN Accession/Order Number: [id number] Exam Date: 04/06/2025 18:19 Report Date: 04/06/2025 18:20 At the request of: RUSSELL MELENDEZ Procedure: XR chest 2V PA AND LATERAL CHEST: CLINICAL HISTORY: short of breath COMPARISON: 08/07/2024 FINDINGS: Mildly enlarged cardiomediastinal silhouette. Lungs are clear. No effusion or pneumothorax. XR/XR chest 2V IMPRESSION: NO ACUTE CARDIOPULMONARY ABNORMALITY. Impression dictated by: Rajesh Jiménez M.D. 04/06/2025 6:20 PM Dictation Location: [place] [address] Electronically authenticated by: [id number] Date: 04/06/2025 18:20
[2025-04-06 17:58] LABS: Basophils Absolute Auto 0.2 10^3/uL (0.0-0.1); Basophils Percent Auto 4.2 % (0.2-2.0); Eosinophils Absolute Auto 0.5 10^3/uL (0.0-0.7); Eosinophils Percent Auto 9.2 % (0.9-7.0); Hemoglobin 14.7 g/dL (12.0-16.0); Immature Granulocytes Abs Auto 0.03 10^3/uL (0.00-0.03); Immature Granulocytes Pct Auto 0.5 % (0.0-0.5); Lymphocytes Absolute Auto 2.3 10^3/uL (1.2-3.8); Lymphocytes Percent Auto 39.5 % (20.5-60.0); Mean Corpuscular HGB Conc 32.7 g/dL (29.9-35.2); Mean Corpuscular Volume 91.8 fL (81.0-99.0); Mean Platelet Volume 10.7 fL (9.5-13.5); Monocytes Absolute Auto 0.8 10^3/uL (0.3-0.8); Monocytes Percent Auto 13.6 % (1.7-12.0); Neutrophils Absolute Auto 1.9 10^3/uL (1.4-6.5); Platelet Count 135 10^3/uL (150-450); Red Cell Distribution Width 14.7 % (11.0-15.0); White Blood Count 5.8 10^3/uL (4.0-11.0)
[2025-04-06 18:09] LABS: INR 1.32; Partial Thromboplastin Time 27.4 sec (22.3-36.2); Prothrombin Time 13.6 sec (9.0-11.6)
[2025-04-06 18:16] LABS: Alanine Aminotransferase 16 U/L (14-59); Albumin Globulin Ratio 1.2; Albumin Level 3.7 g/dL (3.4-5.0); Alkaline Phosphatase 64 U/L (46-116); Anion Gap 14.9; Aspartate Amino Transferase 14 U/L (15-37); BUN Creatinine Ratio 19.6; Bilirubin Total 0.4 mg/dL (0.2-1.0); Calcium 9.9 mg/dL (8.5-10.1); Carbon Dioxide 26.9 mmol/L (21.0-32.0); Chloride 106 mmol/L (98-107); Estimated GFR (African America >60 (>=60 mL/min/1.73m^2); Estimated GFR (Non-African Ame 54 (>=60 mL/min/1.73m^2); Globulin 3.1 g/dL; Glucose 102 mg/dL (74-106); Potassium 3.8 mmol/L (3.5-5.1); Sodium 144 mmol/L (136-145); Total Protein 6.8 g/dL (6.4-8.2); Troponin I High Sensitivity 8.7 pg/mL (4.0-51.3)
[2025-04-06] MEDS: HYDRALAZINE HCL 20 MG/ML VIAL 5 MG IVP (18:17)
[2025-04-06] MEDS: DIAZEPAM 10 MG/2 ML SYRINGE 5 MG IV (18:37)
[2025-04-06 18:39] LABS: Bilirubin Urine NEGATIVE (NEGATIVE); Blood Urine NEGATIVE (NEGATIVE); Clarity Urine CLEAR (CLEAR); Color Urine LT. YELLOW (YELLOW); Glucose Urine UA NEGATIVE (NEGATIVE); Ketones Urine NEGATIVE (NEGATIVE); Leukocyte Esterase Urine NEGATIVE (NEGATIVE); Nitrite Urine NEGATIVE (NEGATIVE); Protein Urine NEGATIVE (NEG/TRACE); Urobilinogen Urine 0.2 EU/dL (0.2-1.0)
[2025-04-06 18:46] LABS: Bacteria Urine TRACE #/HPF (NONE SEEN); Cast Seen? NONE SEEN #/LPF (NONE SEEN); Crystals Seen? None Seen #/HPF (None Seen); Mucus Urine TRACE (NONE SEEN); RBC Urine 0-2 #/HPF (0-2); Squamous Epithelial Cell Urine RARE #/LPF (NONE/RARE); Urine Culture Indicated NO; WBC Urine NONE SEEN #/HPF (NONE SEEN)
[2025-04-06] MEDS: 0.9 % SODIUM CHLORIDE 1,000 ML 1000 ML IV (19:34)
--- NOTE | 2025-04-06 19:36 | ED.GENADUL1 ---
HPI HPI - General Adult General Chief complaint: Shortness of Breath/Dyspnea Stated complaint: sob Time Seen by Provider: 04/06/25 17:28 Source: patient Mode of arrival: walk-in History of Present Illness HPI narrative: 89-year-old female presents here with chief complaint of shortness of breath. Patient is well-known to me. She has a history of anxiety. States she was sitting at home she has a normal history of shortness of breath and states today felt little worse. She is alert and oriented no acute distress. Patient denies any chest pain. She is able to walk and ambulate back to the emergency room. She was not hypoxic or febrile. Blood pressure was mildly elevated. She denies headache or chest pressure. Related Data Home Medications ?Medication ?Instructions ?Recorded ?Confirmed carvedilol 25 mg tablet 25 mg PO BID 12/28/23 04/06/25 hydralazine 50 mg tablet 100 mg PO Q8H 12/28/23 04/06/25 lorazepam 0.5 mg tablet 0.5 mg PO Q12H PRN anxiety 12/28/23 04/06/25 losartan 100 mg tablet 100 mg PO DAILY 12/28/23 12/22/24 hydrochlorothiazide 25 mg tablet mg 04/06/25 Previous Rx's ?Medication ?Instructions ?Recorded clonidine HCl 0.2 mg tablet 0.2 mg PO BID #10 tabs 12/24/24 Allergies Allergy/AdvReac Type Severity Reaction Status Date / Time Sulfa (Sulfonamide AdvReac Mild rash Verified 04/06/25 18:06 Antibiotics) Review of Systems ROS Status of ROS 10 or more systems reviewed and unremarkable except as noted in history and below PFSH PFSH Social History Little interest or pleasure in doing things: not at all Feeling down, depressed, or hopeless: not at all Exam Narrative Exam Narrative: All Systems are negative except as noted/marked.All systems reviewed and otherwise negative Nurses note and vital signs reviewed and patient is not hypoxic. General: The patient appears well and in no apparent distress. Patient is resting comfortably on cart. Skin: Warm, dry, no pallor noted. There is no rash noted. Head: Normocephalic, atraumatic Eye: Normal conjunctiva, no drainage, EOMI. PERRL Ears, Nose, Mouth, and Throat: oral mucosa is moist. Nares patent. Mouth without vesicles. Ear canals patent. Tm's without Erythema Cardiovascular: Regular Rate and Rhythm Respiratory: Patient is in no distress, no accessory muscle use, lungs are clear to auscultation, no wheezing, rales or rhonchi Back: non-tender, no CVA tenderness bilaterally to percussion. GI: Normal bowel sounds, no tenderness to palpation, no masses appreciated. No rebound, guarding, or rigidity noted. Musculoskeletal: The patient has no evidence of calf tenderness, no pitting edema, symmetrical pulses noted bilaterally Neurological: A&O x4, normal speech Psychiatric: Cooperative Constitutional Vital Signs, click to edit/add: Last Vital Signs Temp 97.6 F 04/06/25 17:24 Pulse 63 04/06/25 20:46 Resp 16 04/06/25 20:46 BP 176/78 H 04/06/25 20:46 Pulse Ox 96 04/06/25 20:46 O2 Del Method Room Air 04/06/25 20:46 Course Vital Signs Vital signs: Vital Signs Temperature 97.6 F 04/06/25 17:24 Pulse Rate 64 04/06/25 17:24 Respiratory Rate 22 H 04/06/25 17:24 Blood Pressure 236/103 H 04/06/25 17:24 Pulse Oximetry 97 04/06/25 17:24 Oxygen Delivery Method Room Air 04/06/25 17:24 Temperature 97.6 F 04/06/25 17:24 Pulse Rate 63 04/06/25 20:46 Respiratory Rate 16 04/06/25 20:46 Blood Pressure 176/78 H 04/06/25 20:46 Pulse Oximetry 96 04/06/25 20:46 Oxygen Delivery Method Room Air 04/06/25 20:46 Medical Decision Making MDM Narrative Medical decision making narrative: 89-year-old female presents here with chief complaint of shortness of breath. Patient is well-known to me. She has a history of anxiety. States she was sitting at home she has a normal history of shortness of breath and states today felt little worse. She is alert and oriented no acute distress. Patient denies any chest pain. She is able to walk and ambulate back to the emergency room. She was not hypoxic or febrile. Blood pressure was mildly elevated. She denies headache or chest pressure. Patient presented to the emergency room chief complaint of increased blood pressure and shortness of breath. Patient also has a history of anxiety was quite anxious when she got here. She was able to ambulate back to the emergency room without difficulty. Workup was performed including CBC CMP cardiac and EKGs. Patient was medicated here with hydralazine, fluids were attempted but she demanded IV be taken out. Patient was quite dramatic and upset every time blood pressures were taken and medications were given in the IV. She was given 5 mg of Valium as we are currently out of Ativan and Xanax here in the hospital. Patient's symptoms did improve she felt better. She was then medicated with her nighttime medications, blood pressure meds and her blood pressure has normalized to 176/78. Patient is encouraged to follow-up with her primary care physician tomorrow morning. Patient feels better wishes to go home. Differential Diagnosis Differential Diagnosis: shortness of breath, anxiety, copd Medical Records Medical records reviewed: Yes I reviewed the patient's medical records Lab Data Lab results reviewed: Yes I reviewed the patient's lab results Labs: Lab Results 04/06/25 04/06/25 Range/Units 17:40 18:25 WBC 5.8 (4.0-11.0) 10^3/uL RBC 4.90 (4.20-5.40) 10^6/uL Hgb 14.7 (12.0-16.0) g/dL Hct 45.0 (36.0-48.0) % MCV 91.8 (81.0-99.0) fL MCH 30.0 (26.7-34.0) pg MCHC 32.7 (29.9-35.2) g/dL RDW 14.7 (11.0-15.0) % Plt Count 135 L (150-450) 10^3/uL MPV 10.7 (9.5-13.5) fL Neut % (Auto) 33.0 L (43.0-75.0) % Lymph % (Auto) 39.5 (20.5-60.0) % [place] % (Auto) 13.6 H (1.7-12.0) % Eos % (Auto) 9.2 H (0.9-7.0) % Baso % (Auto) 4.2 H (0.2-2.0) % Neut # (Auto) 1.9 (1.4-6.5) 10^3/uL Lymph # (Auto) 2.3 (1.2-3.8) 10^3/uL [place] # (Auto) 0.8 (0.3-0.8) 10^3/uL Eos # (Auto) 0.5 (0.0-0.7) 10^3/uL Baso # (Auto) 0.2 H (0.0-0.1) 10^3/uL Abs Immat Gran (auto) 0.03 (0.00-0.03) 10^3/uL Imm/Tot Granulo (auto) 0.5 (0.0-0.5) % PT 13.6 H (9.0-11.6) sec INR 1.32 APTT 27.4 (22.3-36.2) sec Sodium 144 (136-145) mmol/L Potassium 3.8 (3.5-5.1) mmol/L Chloride 106 (98-107) mmol/L Carbon Dioxide 26.9 (21.0-32.0) mmol/L Anion Gap 14.9 BUN 19.0 H (7.0-18.0) mg/dL Creatinine 0.97 (0.55-1.02) mg/dL Est GFR ( Amer) >60 (>=60 mL/min/1.73m^2) Est GFR (Non-Af Amer) 54 L (>=60 mL/min/1.73m^2) BUN/Creatinine Ratio 19.6 Glucose 102 (74-106) mg/dL Calcium 9.9 (8.5-10.1) mg/dL Total Bilirubin 0.4 (0.2-1.0) mg/dL AST 14 L (15-37) U/L ALT 16 (14-59) U/L Alkaline Phosphatase 64 (46-116) U/L Troponin I High Sens 8.7 (4.0-51.3) pg/mL NT-Pro-B Natriuret Pep 213.0 (<=1800.0) pg/mL Total Protein 6.8 (6.4-8.2) g/dL Albumin 3.7 (3.4-5.0) g/dL Globulin 3.1 g/dL Albumin/Globulin Ratio 1.2 Urine Color Lt. yellow (YELLOW) Urine Clarity Clear (CLEAR) Urine pH 7.0 (5.0-9.0) Ur Specific [place] 1.010 (1.005-1.025) Urine Protein Negative (NEG/TRACE) mg/dL Urine Glucose (UA) Negative (NEGATIVE) mg/dL Urine Ketones Negative (NEGATIVE) mg/dL Urine Occult Blood Negative (NEGATIVE) Urine Nitrite Negative (NEGATIVE) Urine Bilirubin Negative (NEGATIVE) Urine Urobilinogen 0.2 (0.2-1.0) EU/dL Ur Leukocyte Esterase Negative (NEGATIVE) Urine RBC 0-2 (0-2) #/HPF Urine WBC None seen (NONE SEEN) #/HPF Ur Squamous Epith Cells Rare (NONE/RARE) #/LPF Urine Crystals None seen (None Seen) #/HPF Urine Bacteria Trace A (NONE SEEN) #/HPF Urine Casts None seen (NONE SEEN) #/LPF Urine Mucus Trace A (NONE SEEN) Ur Culture Indicated? No Imaging Data Chest x-ray: Radiologist's impression: ITS Impressions Chest X-Ray 04/06/25 17:33 IMPRESSION: NO ACUTE CARDIOPULMONARY ABNORMALITY. Impression dictated by: Rajesh Jiménez M.D. 04/06/2025 6:20 PM Dictation Location: [place] [address] Electronically authenticated by: [id number] Y Date: 04/06/2025 18:20 ECG Data Interpretation: 1729 sinus rhythm of 62 bpm OK interval 119 ms, QRS duration [address] elevation or depression Discharge Plan Discharge Chief Complaint: Shortness of Breath/Dyspnea Clinical Impression: Hypertension, Anxiety Patient Disposition: Home, Self-Care Time of Disposition Decision: 20:46 Condition: Good Prescriptions / Home Meds: No Action clonidine HCl 0.2 mg tablet 0.2 mg PO BID Qty: 10 0RF hydrochlorothiazide 25 mg tablet carvedilol 25 mg tablet 25 mg PO BID lorazepam 0.5 mg tablet 0.5 mg PO Q12H PRN (Reason: anxiety) hydralazine 50 mg tablet 100 mg PO Q8H losartan 100 mg tablet 100 mg PO DAILY Print Language: Yakut Instructions: Hypertension (ED) Referrals: Amelia Trinh MD [Primary Care Provider, Family Practice] - As needed Referral Note: FOLLOW UP WITH DR TRINH TOMORROW MORNING
[2025-04-06] MEDS: CARVEDILOL 25 MG TABLET PO (20:08)
[2025-04-06] MEDS: CLONIDINE HCL 0.2 MG TABLET PO (20:08)
== END 2025-04-06 21:05 | disposition home or self-care (01) ==
PROVIDERS: Physician Assistant; Emergency Provider Emergency Medicine; PCP Family Medicine
DX: F41.9 Anxiety disorder, unspecified (principal); I10 Essential (primary) hypertension; R06.02 Shortness of breath
CPT/HCPCS: 36415; 71046; 80053; 81001; 83880; 84484; 85025; 85610; 85730; 93005; 96374; 96375; 99285; J0360; J3360

== ENCOUNTER 2025-07-07 12:08 | Emergency (ER) | payer MEDICARE, SELFPAY ==
--- OUTSIDE RECORDS SUMMARY | 2025-02-12 12:49 | XMS_ITS ---
Author Name Auto Generated Organization [facility] Care Team Providers Care Broadcast Correspondent Name Role Phone EDVIN LISA Attending Unavailable MISSY BAUER Attending Unavailable PROBLEMS DATE TYPE CONDITION / CODE ATTENDING STATUS [facility] 06/30/2022 Admitting Diagnosis Essential (primary) hypertension / I10(ICD-10) EDVIN LISA [facility] 11/28/2024 Admitting Diagnosis Localized edema / R60.0(ICD-10) EDVIN LISA [facility] PROCEDURES No Procedure Records Found RESULTS OFFICE VISIT Observed: 02/12/2025 1:00 PM Status: COMPLETED Source: [facility] [id number] Zoraida Barrios [birth year] F Date Provider Department Center 02/12/2025 166-MISSY BAUER [facility] Family History Problem Relation Age of Onset Hypertension Mother Family Status - Relation Status Age at Mother Father Level of Service:34574 [place] OFFICE/OUTPATIENT ESTABLISHED MOD MDM 30 MIN PROGRESS Observed: 02/12/2025 1:00 PM Status: COMPLETED Source: [facility] Patient here for a 3 month f ollow up. Patient states she has been feeling fine. Patient states she had 2 test going that day and she didn't want to do 2 test in one day. Patient states she will do it when she gets around to it. Patient states she has pulsating in her ears and Dr. Trinh was unable to find a reason why she is having the pulsating. Patient denies chest pain, dyspnea with exertion. Patient lidia dizziness, chest pain, palpitations, leg swelling or heart burn. Review of Systems Constitutional: Negative. PROGRESS Observed: 02/12/2025 1:00 PM Status: COMPLETED Source: [facility] Cardiology - [facility] Subjective Zoraida Barrios is a 89 y.o. year old female patient being seen for HTN follow-up. 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 She is followed on a regular basis in our clinic. Her blood pressure medications have been adjusted several times between our office and her PCPs office. On 08/07/2024 she presented to the emergency room at the [facility] with elevated blood pressure reading. [...] elevated she feels it in her head. Update 02/12/2025 She has not yet had the renal artery ultrasound done that was ordered after her last visit with Dr. Lisa due to not wanting to complete the prep prior to the test. She notes she had another test done the same day this test was scheduled and didn't realize she had to fast and decided she didn't want to come back to have it done. She c/o pulsating in her ears. Typically occurs later in the afternoon. She does not check her BP during these episodes. She had a carotid US that noted no significant stenosis. Denies c/o CP, dyspnea, orthopnea, PND, dizziness/LH, palpitations, syncope. BP readings at home 105-120s/60-80s, one high reading of 179/84 in the evening. Review of Systems Cardiovascular: Positive for leg swelling. All other systems reviewed and are negative. Objective Visit Vitals BP (!) 162/92 (BP Location: Left arm, Patient Position: Sitting) Pulse 62 Ht 1.575 m (5' 2 ) Wt 60.8 kg (134 lb) SpO2 98% BMI 24.51 kg/m??? Smoking Status Every Day BSA 1.63 m??? Physical Exam Constitutional: Appearance: She is [...] Sulfa (Sulfonamide Antibiotics) Medications Current Outpatient Medications: aspirin 81 mg chewable tablet, Chew 1 tablet in the morning., Disp: , Rfl: carvedilol (Coreg) 25 mg tablet, Take 1 tablet (25 mg) by mouth with breakfast and with evening meal., Disp: 180 tablet, Rfl: 3 cloNIDine (Catapres) 0.2 mg tablet, Take 1 tablet (0.2 mg) by mouth in the morning and at bedtime., Disp: 180 tablet, Rfl: 3 hydrALAZINE (Apresoline) 100 mg tablet, Take 1 tablet (100 mg) by mouth three times daily., Disp: 270 tablet, Rfl: 3 losartan (Cozaar) 50 mg tablet, Take 1 tablet (50 mg) by mouth two times daily., Disp: 180 tablet, Rfl: 3 atorvastatin (Lipitor) 40 mg tablet, Take 1 tablet by mouth in the morning., Disp: , Rfl: hydroCHLOROthiazide (HYDRODiuril) 25 mg tablet, Take 0.5 tablet by mouth every day. (Patient not taking: Reported on 02/12/2025), Disp: 45 tablet, Rfl: 3 levothyroxine (Synthroid, Levoxyl) 50 mcg tablet, Take 50 mcg by mouth in the morning., Disp: , Rfl: Recent Labs 12/27/2024: Cr 1.24, BUN 25, K 3.5, Na 143, eGFR 41, AST 15, ALT 14 Blood testing 08/07/2024: Hemoglobin 14.2, platelets 134, potassium 4.2, BUN 20, creatinine 1.11, EGFR 46, LFTs normal, troponin high-sensitivity 8.8, NT proBNP 239. TSH normal. Imaging and other tests Carotid US 01/10/2025: mild plaque bilaterally, no hemodynamically significant stenosis ECG 08/07/2024: Sinus rhythm, normal ECG. Echocardiogram 04/06/2022: Mild concentric left ventricular hypertrophy. Normal left ventricular systolic function. Estimated ejection fraction is 65 to 70%. Normal right ventricular systolic function. Mild aortic and tricuspid regurgitation. Normal right sided pressures. No pericardial effusion. Kidney US 04/06/2022 Echocardiogram 04/28/2020: LV systolic function normal. Mild diastolic dysfunction. RV normal size and systolic function. Mild tricuspid valve regurgitation. Mild mitral valve regurgitation. Assessment/Plan Diagnoses and all orders for this visit: Primary hypertension Bilateral carotid artery stenosis Tobacco dependence syndrome Pulsatile tinnitus #HTN #Pulsatile tinnitus -BP at home different than readings in the clinic. BP at home averaging 105-120s/60-80s in the AM. She did have a high reading in the evening of 179/84. -BP in clinic today at 162/92. -Will have her bring in her home BP cuff and compare readings to make sure she is getting accurate readings at home. -She c/o pulsatile tinnitus. Recent carotid US showed mild plaque build up. She has not checked her BP during these episodes - I suspect this may be the cause, she notes sx's typically occur in the evening which is when BP can elevate. Advised that she check her BP when she has these sx's so we can see if this is causing her sx's - she stated she would think about it but she doesn't feel it would make a difference. Also advised she see neurology if BP was not the cause of her sx's. She declines stating she does not want to see any more specialists. Will defer to PCP to consider maybe CT head imaging, etc or ENT referral. -Advised she proceed with he renal artery duplex ultrasound that was ordered by Dr. Lisa at the previous visit. She states she will consider it. #Carotid artery stenosis -Mild plaque bilaterally per recent carotid US - reviewed results with patient -Educated pt ASA and statin are indicated for medical therapy. She also has suspected renal artery stenosis noted on a prior kidney US. She notes she does not want to take any additional medications if she does not have to. Again strongly recommended both medications. She is agreeable to resume ASA 81mg daily. #Active smoker - no desire to quit Follow up in about 3 months (around 05/15/2025). Missy Bauer CNP I spent 35 minutes of total time on the day of the visit. This time was spent preparing for the visit, obtaining and reviewing any outside history/data, taking a history, performing an exam/evaluation, counseling and educating the patient/family about the diagnosis and plan, performing medical decision making, referring to and communicating with other health care referrals, independently interpreting results and documenting in the EMR, and coordinating care. Please see the additional documentation in this note for specific details. OFFICE VISIT Observed: 11/28/2024 2:15 PM Status: COMPLETED Source: [facility] [id number] Zoraida Barrios [age] F Date Provider Department Center 11/28/2024 367EDVIN STEELE [facility] CARD [facility] Family History Problem Relation Age of Onset Hypertension Mother Family Status - Relation Status Age at Mother Level of Service:06405 [place] OFFICE/OUTPATIENT ESTABLISHED LOW MDM 20 MIN PROGRESS Observed: 11/28/2024 2:15 PM Status: COMPLETED Source: [facility] Cardiology - [facility] Subjective Zoraida Barrios is a 89 y.o. year old female patient being seen for concerns of LE edema. Per patient, Dr. Trinh started her on hydrochlorothiazide 25mg daily but [...] presented to the emergency room at the [facility] with elevated blood pressure reading. [...] EGFR 46, LFTs normal, troponin high-sensitivity 8.8, NT proBNP 239. TSH normal. Imaging and other tests ECG 08/07/2024: Sinus rhythm, normal ECG. Echocardiogram 04/06/2022: Mild concentric left ventricular hypertrophy. Normal left ventricular systolic function. Estimated ejection fraction is 65 to 70%. Normal right ventricular systolic function. Mild aortic and tricuspid regurgitation. Normal right sided pressures. No pericardial effusion. Echocardiogram 04/28/2020: LV systolic function normal. Mild diastolic dysfunction. RV normal size and systolic function. Mild tricuspid valve regurgitation. Mild mitral valve regurgitation. Assessment/Plan Diagnoses and all orders for this visit: Primary hypertension - hydrALAZINE (Apresoline) 100 mg tablet; Take 1 tablet (100 mg) by mouth three times daily. - hydroCHLOROthiazide (HYDRODiuril) 25 mg tablet; Take 0.5 tablet by mouth every day. - Basic metabolic panel; Future - Renal artery duplex complete; Future Edema of lower extremity It appears that she has resistant hypertension. I am going to check renal artery duplex ultrasound. Her blood pressure is significantly uncontrolled today in the office. I am going to increase hydralazine to 100 mg 3 times a day. I told her to start taking hydrochlorothiazide 25 mg half tablet once daily. I will check a BMP in 1 month. I will plan on seeing her in follow-up in about 6 weeks to follow-up on her blood pressure readings as well as her overall clinical progress. Follow up in about 6 weeks (around 01/09/2025). Edvin Lisa MD ALLERGIES DATE TYPE / CODE NAME / CODE REACTION SEVERITY SOURCE 11/28/2024 DRUG INGREDI/[id number] 003(SNOMED CT) SPIRONOLACTONE Other [facility] 06/22/2022 Drug Class/[id number] 3(SNOMED CT) SULFA (SULFONAMIDE ANTIBIOTICS) [facility] ENCOUNTERS ADMIT/DISCHARGE ACCOUNT NUMBER ADMITTING ENCOUNTER CLASS LOCATION SOURCE 02/12/2025/ 5 [id number] Ambulatory Building:[facility] 11/28/2024/ 5 [id number] Ambulatory Building:[facility] PAYERS ENCOUNTER GUARANTOR PAYER SUBSCRIBER SOURCE 02/12/2025 Primary Insuranc e:[employer] MEDICARE ADVANTAGEPolicy Number: [id number] Date:2021-10-09 ZORAIDA LINDA: [id number] [place] [id number] [facility] 11/28/2024 Primary Insuranc e:[employer] MEDICARE ADVANTAGEPolicy Number: [id number] Date:2021-10-09 ZORAIDA LINDA: [id number] [place] [address] [facility]
[2025-07-07] VITALS (12 sets, daily range): BP systolic 180–242; BP diastolic 92–98; PULSE 52–65; TEMP 36.8; O2SAT 95–99; BMI 23.8
--- NOTE | 2025-07-07 12:45 | ECG_ITS ---
[facility] Test Date: 2025-07-07 Pat Name: ZORAIDA GAYTAN Department: Room: - Gender: Female Sleeve Turner: : 1935 Requested By: LACEY FREY Order Number: [id number] Reading MD: THAO BERMEO Measurements Intervals [place] Rate: 56 P: 67 NM: 200 QRS: 70 QRSD: 90 T: 56 QT: 452 QTc: 444 Interpretive Statements 1100 Sinus bradycardia 1102 Sinus arrhythmia 9110 normal ECG Compared to ECG 04/06/2025 17:29:06 Sinus bradycardia now present Electronically Signed On 07-07-2025 15:32:25 EDT by THAO BERMEO
--- NOTE | 2025-07-07 12:59 | XR_ITS ---
[facility] [place] [id number] Patient Name: ZORAIDA GAYTAN MRN: [id number] date: 1935 Sex: F Assigned Patient Location: ER Current Patient Location: ER Accession/Order Number: [id number] Exam Date: 07/07/2025 13:12 Report Date: 07/07/2025 13:35 At the request of: ANDREI SAUNDERS DO Procedure: XR chest 2V Chest 2 views CLINICAL HISTORY: cough, r/o PNA COMPARISON: Chest 04/06/2025 FINDINGS: Heart normal in size. Subtle left upper lobe airspace disease. No pneumothorax, large pleural effusion or free air. Biapical thickening/scarring. XR/XR chest 2V IMPRESSION: SUBTLE LEFT UPPER LOBE AIRSPACE DISEASE. CHEST X-RAY FOLLOW-UP IS SUGGESTED AFTER THERAPY TO ENSURE RESOLUTION UNDERLYING NODULE CANNOT BE EXCLUDED. Impression dictated by: Kurt Ken Jr., D.O. 07/07/2025 1:35 PM Dictation Location: [place] [address] Electronically authenticated by: [id number] Y Date: 07/07/2025 13:35
[2025-07-07 13:08] LABS: Hematocrit 44.7 % (36.0-48.0); Hemoglobin 14.4 g/dL (12.0-16.0); Immature Granulocytes Abs Auto 0.03 10^3/uL (0.00-0.03); Immature Granulocytes Pct Auto 0.4 % (0.0-0.5); Lymphocytes Absolute Auto 1.7 10^3/uL (1.2-3.8); Mean Corpuscular HGB Conc 32.2 g/dL (29.9-35.2); Mean Corpuscular Hemoglobin 29.5 pg (26.7-34.0); Mean Corpuscular Volume 91.6 fL (81.0-99.0); Platelet Count 119 10^3/uL (150-450); Red Blood Count 4.88 10^6/uL (4.20-5.40); White Blood Count 8.3 10^3/uL (4.0-11.0)
[2025-07-07 13:23] LABS: Anion Gap 13.6; Blood Urea Nitrogen 17.0 mg/dL (7.0-18.0); Calcium 9.5 mg/dL (8.5-10.1); Carbon Dioxide 27.2 mmol/L (21.0-32.0); Chloride 104 mmol/L (98-107); Estimated GFR (African America 60 (>=60 mL/min/1.73m^2); Estimated GFR (Non-African Ame 49 (>=60 mL/min/1.73m^2); Glucose 113 mg/dL (74-106); NT Pro B Type Natriuretic Pept 418.0 pg/mL (<=1800.0); Potassium 3.8 mmol/L (3.5-5.1); Sodium 141 mmol/L (136-145)
--- NOTE | 2025-07-07 14:24 | ED.GENADUL1 ---
HPI HPI - General Adult General Chief complaint: Shortness of Breath/Dyspnea Stated complaint: SHORT OF BREATH Time Seen by Provider: 07/07/25 12:49 Mode of arrival: walk-in Limitations: no limitations History of Present Illness HPI narrative: Patient is an 89-year-old female, history significant for chronic hypertension, presenting to the emergency department for evaluation of a cough. Patient states that for the last 3 days she has been having worsening cough and congestion. She has been taking Mucinex for symptoms, which only mildly helped. She is concerned that she might have pneumonia. She denies any chest pain or shortness breath. No fevers or chills. No abdominal pain, nausea, vomiting. She states she has been smoking for a long time. She states he has been prescribed inhalers in the past, but never needs to use them. She denies history of COPD. Related Data Home Medications ?Medication ?Instructions ?Recorded ?Confirmed carvedilol 25 mg tablet 25 mg PO BID 12/28/23 07/07/25 lorazepam 0.5 mg tablet 0.5 mg PO Q12H PRN anxiety 12/28/23 04/06/25 losartan 100 mg tablet 100 mg PO DAILY 12/28/23 12/22/24 hydralazine 100 mg tablet mg 07/07/25 losartan 50 mg tablet mg 07/07/25 Previous Rx's ?Medication ?Instructions ?Recorded clonidine HCl 0.2 mg tablet 0.2 mg PO BID #10 tabs 12/24/24 amoxicillin 875 mg-potassium 1 tab PO Q12H 7 days #14 tabs 07/07/25 clavulanate 125 mg tablet doxycycline hyclate 100 mg capsule 100 mg PO BID 7 days #14 caps 07/07/25 Allergies Allergy/AdvReac Type Severity Reaction Status Date / Time Sulfa (Sulfonamide AdvReac Mild rash Verified 07/07/25 12:26 Antibiotics) Review of Systems ROS Status of ROS 10 or more systems reviewed and unremarkable except as noted in history and below PFSH PFS Social History Little interest or pleasure in doing things: not at all Feeling down, depressed, or hopeless: not at all Exam Narrative Exam Narrative: CONSTITUTIONAL: Well-appearing, speaking in full sentences, answering questions and following commands appropriately SKIN: Was warm and dry. EYES: Sclerae white. EARS, NOSE, THROAT: Moist oral mucosa. RESPIRATORY: Clear to auscultation bilaterally, no wheezes, crackles, or stridor, no use of accessory muscles CARDIOVASCULAR: Normal rate and regular rhythm. There is no S3, S4, murmur, rub. GASTROINTESTINAL: Abdomen is nondistended. MUSCULOSKELETAL: No peripheral edema. NEUROLOGIC: Patient is awake and alert. Facies were symmetrical. Constitutional Vital Signs, click to edit/add: Last Vital Signs Temp 98.3 F 07/07/25 12:18 Pulse 57 L 07/07/25 14:10 Resp 23 H 07/07/25 14:10 BP 180/92 H 07/07/25 14:18 Pulse Ox 99 07/07/25 14:16 O2 Del Method Room Air 07/07/25 14:16 Course Vital Signs Vital signs: Vital Signs Temperature 98.3 F 07/07/25 12:18 Pulse Rate 55 L 07/07/25 12:18 Respiratory Rate 16 07/07/25 12:18 Blood Pressure 242/98 H 07/07/25 12:18 Pulse Oximetry 96 07/07/25 12:18 Oxygen Delivery Method Room Air 07/07/25 12:18 Temperature 98.3 F 07/07/25 12:18 Pulse Rate 57 L 07/07/25 14:10 Respiratory Rate 23 H 07/07/25 14:10 Blood Pressure 180/92 H 07/07/25 14:18 Pulse Oximetry 99 07/07/25 14:16 Oxygen Delivery Method Room Air 07/07/25 14:16 Medical Decision Making [facility] Narrative Medical decision making narrative: Patient is an 89-year-old female, history significant for chronic hypertension and smoking, presenting to the emergency department for evaluation of cough x 3 days. Her vital signs on arrival were significant for hypertension, otherwise were within normal limits. She is afebrile and hemodynamically stable. She is saturating 99% on room air with clear breath sounds bilaterally. Examination as noted above. She is in no respiratory distress. Differential diagnosis includes pneumonia, bronchitis, URI, CHF, pneumothorax, or other electrolyte/metabolic derangement. IV was established and laboratory studies were obtained. Chest x-ray was ordered. 12 Lead EKG: Normal sinus rhythm at a rate of 56. Normal axis. No ST segment elevations. QRS, [place], and QTc interval within normal limits. Final impression: normal sinus rhythm without evidence of acute myocardial ischemia Chest x-ray independently reviewed and interpreted by myself and radiology demonstrated subtle left upper lobe airspace disease. Radiology noted to follow-up after therapy to ensure resolution as underlying nodule cannot be excluded. Laboratory studies were unremarkable. No significant electrolyte or metabolic derangement. No evidence of acute kidney injury. No anemia, leukocytosis, or thrombocytopenia. Troponin and BNP not elevated. On reevaluation, patient feels well enough to be discharged home. Her repeat blood pressure demonstrated significant improvement. I do believe the patient is stable for discharge. Patient's presentation is most likely consistent with community-acquired pneumonia. They were instructed to follow up with her PCP for further care, and to get a repeat chest x-ray in a few weeks to rule out underlying nodule/CA. Return precautions were given including any new or worsening symptoms. They were given a prescription for Augmentin 875 mg twice daily and doxycycline 100 mg twice daily x 7 days. Patient understands and agrees to the plan. FINAL IMPRESSION: #Acute community-acquired pneumonia #Chronic asymptomatic hypertension DISPOSITION: Discharged home CONDITION: Fair Medical Records Medical records reviewed: Yes I reviewed the patient's medical records Lab Data Lab results reviewed: Yes I reviewed the patient's lab results Labs: Lab Results 07/07/25 Range/Units 12:49 WBC 8.3 (4.0-11.0) 10^3/uL RBC 4.88 (4.20-5.40) 10^6/uL Hgb 14.4 (12.0-16.0) g/dL Hct 44.7 (36.0-48.0) % MCV 91.6 (81.0-99.0) fL MCH 29.5 (26.7-34.0) pg MCHC 32.2 (29.9-35.2) g/dL RDW 14.6 (11.0-15.0) % Plt Count 119 L (150-450) 10^3/uL MPV 11.4 (9.5-13.5) fL Neut % (Auto) 56.9 (43.0-75.0) % Lymph % (Auto) 19.8 L (20.5-60.0) % [place] % (Auto) 14.9 H (1.7-12.0) % Eos % (Auto) 5.4 (0.9-7.0) % Baso % (Auto) 2.6 H (0.2-2.0) % Neut # (Auto) 4.7 (1.4-6.5) 10^3/uL Lymph # (Auto) 1.7 (1.2-3.8) 10^3/uL [place] # (Auto) 1.2 H (0.3-0.8) 10^3/uL Eos # (Auto) 0.5 (0.0-0.7) 10^3/uL Baso # (Auto) 0.2 H (0.0-0.1) 10^3/uL Abs Immat Gran (auto) 0.03 (0.00-0.03) 10^3/uL Imm/Tot Granulo (auto) 0.4 (0.0-0.5) % Sodium 141 (136-145) mmol/L Potassium 3.8 (3.5-5.1) mmol/L Chloride 104 (98-107) mmol/L Carbon Dioxide 27.2 (21.0-32.0) mmol/L Anion Gap 13.6 BUN 17.0 (7.0-18.0) mg/dL Creatinine 1.05 H (0.55-1.02) mg/dL Est GFR ( Amer) 60 (>=60 mL/min/1.73m^2) Est GFR (Non-Af Amer) 49 L (>=60 mL/min/1.73m^2) BUN/Creatinine Ratio 16.2 Glucose 113 H (74-106) mg/dL Calcium 9.5 (8.5-10.1) mg/dL Troponin I High Sens 9.9 (4.0-51.3) pg/mL NT-Pro-B Natriuret Pep 418.0 (<=1800.0) pg/mL Imaging Data Chest x-ray: Attestation: I personally reviewed and interpreted this imaging study as follows: Radiologist's impression: ITS Impressions Chest X-Ray 07/07/25 12:59 IMPRESSION: SUBTLE LEFT UPPER LOBE AIRSPACE DISEASE. CHEST X-RAY FOLLOW-UP IS SUGGESTED AFTER THERAPY TO ENSURE RESOLUTION UNDERLYING NODULE CANNOT BE EXCLUDED. Impression dictated by: Doris Lemos Jr.ODhaval 07/07/2025 1:35 PM Dictation Location: [place] [address] Electronically authenticated by: [id number] Y Date: 07/07/2025 13:35 ECG Data Attestation: I personally reviewed and interpreted this ECG as follows: Discharge Plan Discharge Chief Complaint: Shortness of Breath/Dyspnea Clinical Impression: Hypertension, Community acquired pneumonia Patient Disposition: Home, Self-Care Time of Disposition Decision: 14:13 Condition: Good Mode of Transportation: Private Vehicle Prescriptions / Home Meds: New doxycycline hyclate 100 mg capsule 100 mg PO BID 7 Days Qty: 14 0RF amoxicillin-pot clavulanate 875-125 mg tablet 1 tab PO Q12H 7 Days Qty: 14 0RF No Action clonidine HCl 0.2 mg tablet 0.2 mg PO BID Qty: 10 0RF losartan 50 mg tablet hydralazine 100 mg tablet carvedilol 25 mg tablet 25 mg PO BID lorazepam 0.5 mg tablet 0.5 mg PO Q12H PRN (Reason: anxiety) losartan 100 mg tablet 100 mg PO DAILY Print Language: Georgian Instructions: Chronic Hypertension (ED), Community Acquired Pneumonia (ED) Referrals: Amelia Trinh MD [Primary Care Provider, Family Practice] - 1 week
== END 2025-07-07 14:38 | disposition home or self-care (01) ==
PROVIDERS: Emergency Provider Student in an Organized Health Care Education/Training Program; PCP Family Medicine
DX: J18.9 Pneumonia, unspecified organism (principal); I10 Essential (primary) hypertension; F17.200 Nicotine dependence, unspecified, uncomplicated; R06.02 Shortness of breath
CPT/HCPCS: 36415; 71046; 80048; 83880; 84484; 85025; 93005; 99284

== ENCOUNTER 2025-07-10 11:56 | Emergency (ER) | payer MEDICARE, SELFPAY ==
[2025-07-10] VITALS (9 sets, daily range): BP systolic 170–242; BP diastolic 80–98; PULSE 52–59; O2SAT 97
--- NOTE | 2025-07-10 12:41 | ECG_ITS ---
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 Measurements Intervals [place] Rate: 54 P: 64 [place]: 188 QRS: 60 QRSD: 92 T: 38 QT: 460 QTc: 446 Interpretive Statements 1100 Sinus rhythm 1102 Sinus arrhythmia 4068 Nonspecific [place] abnormality 9130 borderline ECG Compared to ECG 07/07/2025 12:47:43 No significant changes Electronically Signed On 07-10-2025 15:35:16 EDT by EDVIN GRUBBS M.D.
[2025-07-10] MEDS: LABETALOL HCL 100 MG/20 ML MDV 20 MG IVP (13:02)
[2025-07-10] MEDS: ENALAPRILAT DIHYDRATE 1.25 MG/ML VIAL IV (13:02)
[2025-07-10 13:06] LABS: Hematocrit 43.1 % (36.0-48.0); Hemoglobin 14.0 g/dL (12.0-16.0); Immature Granulocytes Abs Auto 0.03 10^3/uL (0.00-0.03); Immature Granulocytes Pct Auto 0.4 % (0.0-0.5); Lymphocytes Absolute Auto 1.7 10^3/uL (1.2-3.8); Mean Corpuscular HGB Conc 32.5 g/dL (29.9-35.2); Mean Corpuscular Hemoglobin 29.5 pg (26.7-34.0); Mean Corpuscular Volume 90.9 fL (81.0-99.0); Platelet Count 114 10^3/uL (150-450); Red Blood Count 4.74 10^6/uL (4.20-5.40); White Blood Count 6.7 10^3/uL (4.0-11.0)
[2025-07-10 13:24] LABS: Alanine Aminotransferase 12 U/L (14-59); Albumin Globulin Ratio 1.2; Albumin Level 3.7 g/dL (3.4-5.0); Alkaline Phosphatase 56 U/L (46-116); Anion Gap 14.2; Aspartate Amino Transferase 21 U/L (15-37); Blood Urea Nitrogen 17.0 mg/dL (7.0-18.0); Calcium 9.5 mg/dL (8.5-10.1); Carbon Dioxide 26.4 mmol/L (21.0-32.0); Chloride 105 mmol/L (98-107); Estimated GFR (African America >60 (>=60 mL/min/1.73m^2); Estimated GFR (Non-African Ame 56 (>=60 mL/min/1.73m^2); Globulin 3.1 g/dL; Glucose 114 mg/dL (74-106); Potassium 3.6 mmol/L (3.5-5.1); Sodium 142 mmol/L (136-145); Total Protein 6.8 g/dL (6.4-8.2)
--- NOTE | 2025-07-10 13:44 | ED_ITS ---
HPI HPI - General Adult General Chief complaint: Recheck/Abnormal Lab/Rx Stated complaint: BLOOD PRESSURE CHECK Time Seen by Provider: 07/10/25 12:12 Source: patient Mode of arrival: walk-in Limitations: no limitations History of Present Illness HPI narrative: cc -high blood pressure Patient with complex and longstanding high blood pressure presents for evaluation after she started hearing pounding in her ears, which prompted her to check her blood pressure at home. Value was 242/98. She came to the ED for evaluation. Chart review shows that she was recently here for elevated blood pressure, received medicine for anxiety but no changes were made to her antihypertensive regiment. She currently takes hydralazine 100 mg twice daily, carvedilol 25 mg twice daily, losartan 50 mg twice daily, clonidine 0.2 mg twice daily. Her primary care provider is Dr. Aemlia Trinh. Related Data Home Medications ?Medication ?Instructions ?Recorded ?Confirmed carvedilol 25 mg tablet 25 mg PO BID 12/28/23 lorazepam 0.5 mg tablet 0.5 mg PO Q12H PRN anxiety 0 12/28/23 04/06/25 losartan 100 mg tablet 100 mg PO DAILY 12/28/23 hydralazine 100 mg tablet 100 mg 07/07/25 losartan 50 mg tablet 50 mg 07/07/25 Previous Rx's ?Medication ?Instructions ?Recorded clonidine HCl 0.2 mg tablet 0.2 mg PO BID #10 tabs amoxicillin 875 mg-potassium 1 tab PO Q12H 7 days #14 tabs 07/07/25 clavulanate 125 mg tablet doxycycline hyclate 100 mg capsule 100 mg PO BID 7 day s #14 caps 07/07/25 Allergies Allergy/AdvReac Type Severity Reaction Status Date / Time Sulfa (Sulfonamide AdvReac Mild rash Verified 07/10/25 12:07 Antibiotics) PFSH PFSH Social History Little interest or pleasure in doing things: not at all Feeling down, depressed, or hopeless: not at all Exam Narrative Exam Narrative: Nurses notes and vital signs reviewed and patient is not hypoxic. afebrile General: Well-appearing and in no apparent distress. Skin: Warm, dry, no pallor noted. Eye: Pupils are equal, round and EOMI. No scleral icterus. Ears, Nose, Mouth, and Throat: Oral mucosa is moist Cardiovascular: Regular Rate and Rhythm without murmur, gallop or rub. Respiratory: No accessory muscle use or respiratory distress. Lungs are clear to auscultation, no wheezing, rales or rhonchi Musculoskeletal: normal ROM, no calf or popliteal tenderness, no lower extremity edema/swelling GI: Abdomen is soft, non-distended. Normal bowel sounds. No pulsatile masses appreciated. No tenderness to palpation. No rebound, guarding, or rigidity noted. Neurological: A&O x4. No cranial nerve dysfunction observed. No truncal ataxia. Moves all extremities. Sensation intact. Psychiatric: Cooperative and interactive. Normal mood and affect. Constitutional Vital Signs, click to edit/add: Last Vital Signs Pulse 55 L 07/10/25 13:20 Resp 22 H 07/10/25 13:20 BP 180/80 H 07/10/25 13:17 Pulse Ox 97 07/10/25 12:05 O2 Del Method Room Air 07/10/25 12:05 Course Vital Signs Vital signs: Vital Signs Pulse Rate 56 L 07/10/25 12:05 Respiratory Rate 14 07/10/25 12:05 Blood Pressure 242/98 H 07/10/25 12:05 Pulse Oximetry 97 07/10/25 12:05 Oxygen Delivery Method Room Air 07/10/25 12:05 Pulse Rate 55 L 07/10/25 13:20 Respiratory Rate 22 H 07/10/25 13:20 Blood Pressure 180/80 H 07/10/25 13:17 Pulse Oximetry 97 07/10/25 12:05 Oxygen Delivery Method Room Air 07/10/25 12:05 Medical Decision Making [facility] Narrative Medical decision making narrative: Initially, the patient refused to receive any kind of treatment including IV acc ess or EKG. After I saw and examined the patient and had a long discussion with her, she was agreeable to allow us to do additional testing and treatment. Patient was placed on ekg monitor tech and EKG obtained. Blood drawn and sent for evaluation. She was ordered to receive 40 mg IV labetalol. Initial repeat blood pressure was 180/80 manual - she will not let us check her with the machine. EKG does not show any ischemic changes. Blood testing was unremarkable with normal CBC, negative CMP. @13:48 BP recheck manually was 170/80. patient's symptoms of blood pressure pulsing in my head had abated and she had no other symptoms on recheck @13:53. On review of her meds, the patient is maxxed out on her daily Carvedilol and Losartan - but her Hydralazine and Clonidine can be increased. I talked to the patient about her diagnosis and my recommendation to increase her Clonidine 0.2mg from BID to TID - she already has an appointment [facility] Dr Trinh on Monday - 07/14/25. Medical Records Medical records reviewed: Yes I reviewed the patient's medical records Lab Data Lab results reviewed: Yes I reviewed the patient's lab results Labs: Lab Results 07/10/25 Range/Units 12:53 WBC 6.7 (4.0-11.0) 10^3/uL RBC 4.74 (4.20-5.40) 10^6/uL Hgb 14.0 (12.0-16.0) g/dL Hct 43.1 (36.0-48.0) % MCV 90.9 (81.0-99.0) fL MCH 29.5 (26.7-34.0) pg MCHC 32.5 (29.9-35.2) g/dL RDW 14.7 (11.0-15.0) % Plt Count 114 L (150-450) 10^3/uL MPV 10.9 (9.5-13.5) fL Neut % (Auto) 52.6 (43.0-75.0) % Lymph % (Auto) 25.6 (20.5-60.0) % Faulkner % (Auto) 13.2 H (1.7-12.0) % Eos % (Auto) 5.4 (0.9-7.0) % Baso % (Auto) 2.8 H (0.2-2.0) % Neut # (Auto) 3.5 (1.4-6.5) 10^3/uL Lymph # (Auto) 1.7 (1.2-3.8) 10^3/uL Faulkner # (Auto) 0.9 H (0.3-0.8) 10^3/uL Eos # (Auto) 0.4 (0.0-0.7) 10^3/uL Baso # (Auto) 0.2 H (0.0-0.1) 10^3/uL Abs Immat Gran (auto) 0.03 (0.00-0.03) 10^3/uL Imm/Tot Granulo (auto) 0.4 (0.0-0.5) % Sodium 142 (136-145) mmol/L Potassium 3.6 (3.5-5.1) mmol/L Chloride 105 (98-107) mmol/L Carbon Dioxide 26.4 (21.0-32.0) mmol/L Anion Gap 14.2 BUN 17.0 (7.0-18.0) mg/dL Creatinine 0.94 (0.55-1.02) mg/dL Est GFR ( Amer) >60 (>=60 mL/min/1.73m^2) Est GFR (Non-Af Amer) 56 L (>=60 mL/min/1.73m^2) BUN/Creatinine Ratio 18.1 Glucose 114 H (74-106) mg/dL Calcium 9.5 (8.5-10.1) mg/dL Total Bilirubin 0.6 (0.2-1.0) mg/dL AST 21 (15-37) U/L ALT 12 L (14-59) U/L Alkaline Phosphatase 56 (46-116) U/L Total Protein 6.8 (6.4-8.2) g/dL Albumin 3.7 (3.4-5.0) g/dL Globulin 3.1 g/dL Albumin/Globulin Ratio 1.2 ECG Data Attestation: I personally reviewed and interpreted this ECG as follows: Interpretation: EKG interpretation:Emergency Department physician interpretation. Normal sinus rhythm at 54bpm. Normal axis, normal intervals and no ST segment elevation or depression. Discharge Plan Discharge Chief Complaint: Recheck/Abnormal Lab/Rx Clinical Impression: Hypertension Patient Disposition: Home, Self-Care Time of Disposition Decision: 13:54 Prescriptions / Home Meds: No Action clonidine HCl 0.2 mg tablet 0.2 mg PO BID Qty: 10 0RF losartan 50 mg tablet 50 mg hydralazine 100 mg tablet 100 mg doxycycline hyclate 100 mg capsule 100 mg PO BID 7 Days Qty: 14 0RF amoxicillin-pot clavulanate 875-125 mg tablet 1 tab PO Q12H 7 Days Qty: 14 0RF carvedilol 25 mg tablet 25 mg PO BID lorazepam 0.5 mg tablet 0.5 mg PO Q12H PRN (Reason: anxiety) losartan 100 mg tablet 100 mg PO DAILY Print Language: Greenlandic Instructions: Hypertension (ED) Additional Instructions: Increase your clonidine dose from 0.2 mg twice a day to 0.2 mg 3 times a day Referrals: Amelia Trinh MD [Primary Care Provider, Family Practice] - 1 week
--- OUTSIDE RECORDS SUMMARY | 2025-07-10 18:44 | XMS_ITS | CCD ---
Author Organization [facility] Care Team Providers Care Campaign Consultant Name Role Phone LACEY FREY Primary Care Physician SAURABH Puentes, DR RUBIO Consulting Unavailable HAY ., DR RUBIO Attending Unavailable HAY ., DR RUBIO Admitting Unavailable TK, DR LACEY Ashton Primary Care Unavailable NITHIN, DR GEORGIE Bartholomew Consulting Unavailabl e NITHIN, DR GEORGIE Bartholomew Attending Unavailabl e NITHIN, DR GEORGIE Bratholomew Admitting Unavailabl e FREY, DR LACEY Ashton Primary Care Unavailable BERNIE NAVARRO Consulting Unavailable TK, DR LACEY Ashton Primary Care Unavailable YOAV ., SATRID Admitting Unavailable YOAV ., ASTRID Attending Unavailable YOAV ., ASTRID Consulting Unavailable MOMO RICO Consulting Unavailable TK, DR LACEY Ashton Primary Care Unavailable RINKU, DR CINDY Resendiz Admitting Unavailable RINKU, DR CINDY Resendiz Attending Unavailable RINKU, DR CINDY Resendiz Consulting Unavailable AHDOOTKEVINEH Consulting Unavailable TK, DR LACEY Ashton Consulting Unavailable TK, DR LACEY Ashton Primary Care Unavailable FREY, DR LACEY Ashton Attending Unavailable TK, DR LACEY Ashton Admitting Unavailable VIRGILIO, AALIYAH Consulting Unavailable TK, DR LACEY Ashton Primary Care Unavailable VIRGILIO, AALIYAH Attending [...] PAY ., DR GARCIA Consulting Unavailable AL .DAPHNE Consulting Unavailable JAMES, DR HARJINDER Resendiz Consulting Unavailable EVAN WALLIS Attending Unavailable EVAN WALLIS Admitting Unavailable TK, DR LACEY Ashton Primary Care Unavailable EVAN WALLIS Consulting Unavailable ANIRUDH, RADHA Attending Unavailable ANIRUDH, RADHA Admitting Unavailable ANIRUDH, RADHA Consulting Unavailable TK, DR LACEY Ashton Primary Care Unavailable TK, DR LACEY Ashton Primary Care [...] Ashton Primary Care Unavailable ZAVALETA ., MR LUNSFORD Consulting Unavailable REINECK, DR GEORGIE Bartholomew Attending Unavailjavier e REINECK, DR GEORGIE Bartholomew Admitting Unavailabl e FREY, DR LACEY Ashton Primary Care Unavailable FREY, DR LACEY Ashton Primary Care Unavailable MARKER ., DR FISCHER Admitting Unavailable MARKER ., DR FISCHER Attending Unavailable MARKER ., DR FISCHER Consulting Unavailable TK, DR LACEY Ashton Primary Care Unavailable YOAV ., ASTRID Admitting Unavailable YOAV ., ASTRID Attending Unavailable YOAV ., ASTRID Consulting Unavailable ALGHOTHANI, MOHAMAD Admitting Unavailable ALGMAKAYLA, SUSAN Attending Unavailable TK, DR LACEY Ashton Primary Care Unavailable HACIENDA HEIGHTS, DR BERTHA Logan Consulting Unavailable ALGHOTHANI, MOHAMAD Consulting Unavailable Lacey Frey Unavailable Rox Watson Unavailable MISSY BAUER Attending Unavailable VIRGILIO, AALIYAH Attending Unavailable VIRGILIO, AALIYAH Attending Unavailable VIRGILIO, AALIYAH Attending Unavailable EDVIN GRUBBS Attending Unavailable Lacey Frey MD Primary Care Provider [phone] Lacey Frey MD Attending Provider Daphne Emanuel PA-C Attending Provider Unavailable Valencia Wilkinson CMA Attending Provider UnavailLacey Rodriguez MD Primary Care Provider Lacey Frey MD Attending Provider Allergies Allergy Classification Reported Allergen(s) Allergy Type Date of Onset Reaction(s) Facility (2 sources) Sulfonamides (Antibiotic); Translations: [sulfa drugs] Drug allergy Unknown [facility] (2 sources) Sulfonamides (Antibiotic) Drug allergy (disorder) 4 [facility] Repository (10 sources) Substance with sulfonamide structure and antibacterial mechanism of action (substance) Drug allergy Unknown [facility] Other (1 source) Spironolactone; Translations: [SPIRONOLACTONE] Drug Allergy 5 [facility] Repository (1 source) Sulfonamides (Antibiotic); Translations: [SULFA (SULFONAMIDE ANTIBIOTICS)] Propensity to adverse reactions to drug (disorder) 2 [facility] Repository Medications Current Medications Medication Drug Class(es) Dates Sig (Normalized) Sig (Original) amLODIPine 5 mg oral tablet (10 sources) Dihydropyridine Calcium Channel Atif take 1 tablet by mouth every twenty-four hours carvedilol 25 mg oral tablet (19 sources) alpha-Adrenergic Atif, beta-Adrenergic Atif Start: 04-14-2025 take 1 tablet by mouth twice daily at mealtime Carvedilol 25 mg tablet Active 25 MG PO Twice daily April 14, 2025 12:00am must administer with a meal/food Complies with drug therapy Start: 01-08-2024 End: 02-04-2025 take 1 tablet by mouth twice daily at mealtime take 1 tablet by mouth every twe lve hours cloNIDine hydrochloride 0.2 mg oral tablet (20 sources) Central alpha-2 Adrenergic Agonist Start: 04-14-2025 take 1 tablet by mouth twice daily Clonidine Hcl 0.2 mg tablet Active 0.2 MG PO Twice daily April 14, 2025 12:00am Complies with drug therapy Start: 11-18-2024 End: 02-04-2025 take 1 tablet by mouth once daily in the morning Start: 01-08-2024 End: 11-18-2024 take 1 tablet by mouth twice daily take 1 tablet by mouth every twe lve hours furosemide 20 mg oral tablet (10 sources) Loop Diuretic hydrALAZINE hydrochloride 50 mg oral tablet (20 sources) Arteriolar Vasodilator Start: take 2 tablets by mouth three times daily Hydralazine 50 mg tablet Active 100 MG PO Three times daily February 04, 2025 4:03pm Complies with drug therapy Start: 12-26-2024 End: 02-04-2025 take 2 tablets by mouth twice daily Hydralazine 50 mg tablet Discontinued 100 MG PO Twice daily December 26, 2024 1:13pm February 04, 2025 4:04pm Start: 11-18-2024 End: 12-26-2024 Hydralazine 50 mg [...] Three times a day Active losartan potassium 50 mg oral tablet (19 sources) Angiotensin 2 Receptor Atif Start: 04-14-2025 take 1 tablet by mouth once daily Losartan 50 mg tablet Active 50 MG PO Daily April 14, 2025 12:00am Complies with drug therapy Start: 01-08-2024 End: 02-04-2025 take 1 tablet by mouth once daily Losartan 100 mg tablet Discontinued 1 TA B PO Daily January 08, 2024 12:00am February 04, 2025 4:03pm [employer] tablet Orally Once a day; Note: Source Status: Not-TakingundefinedPRN; Provider: Eros Peñaloza ( ) take 1 tablet by juliette th every twenty-four hours microencapsulated potassium chloride 10 meq extended release oral tablet (10 sources) take 1 tablet by juliette th once daily at mealtime as needed Completed/Discontinued Medications Medication Drug Class(es) Dates Sig (Normalized) Sig (Original) aspirin 81 mg chewable tablet (4 sources) Platelet Aggregation Inhibitor, Nonsteroidal Anti-inflammator y Drug Start: End: take 1 tablet by mouth once daily Aspirin 81 mg tablet,chewable Discontinued 81 MG PO Daily December 26, 2024 12:00am May 12, 2025 1:26pm atorvastatin 40 mg oral tablet (4 sources) HMG-CoA Reductase Inhibitor Start: End: 5 take 1 tablet by mouth once daily Atorvastatin 40 mg tablet Discontinued 40 MG PO Daily December 26, 2024 12:00am May 12, 2025 1:26pm hydroCHLOROthiazide 25 mg oral tablet (5 sources) Thiazide Diuretic Start: End: 5 take 1 tablet by mouth once daily Hydrochlorothiazide 25 mg tablet Discontinued 25 MG PO Daily November 18, 2024 1:00am February 04, 2025 4:02pm levothyroxine sodium 0.05 mg oral tablet (13 sources) l-Thyroxine Start: End: take 1 tablet by mouth once daily Levothyroxine 50 mcg tablet Discontinued 50 MCG PO Daily April 14, 2025 12:00am May 12, 2025 1:26pm Start: 05-17-2024 End: 08-15-2024 take 1 tablet by mouth once daily Levothyroxine 50 mcg tablet Discontinued 50 MCG PO Daily June 19, 2024 11:42am August 15, 2024 2:12pm LORazepam 0.5 mg oral tablet (18 sources) Benzodiazepine Start: 01-05-2024 End: 01-08-2024 take [...] MOUTH EVERY DAY NEEDED for 30 days 15 Mar, 2023 Active Start: 01-17-2023 take 1 tablet by juliette th once daily as needed LORazepam 0.5 MG TAKE 1 TABLET BY MOUTH EVERY DAY NEEDED for 30 days Jan, Active Start: 11-18-2022 take 1 tablet by juliette th once daily as needed LORazepam 0.5 MG TAKE 1 TABLET BY MOUTH EVERY DAY NEEDED for 30 days Nov, Active spironolactone 25 mg oral tablet (18 sources) Aldosterone Antagonist Start: 01-08-2024 End: 11-18-2024 take 1 tablet by mouth once daily Problems Active Problems Problem Classification Problem Date Documented Da te Episodic/Chronic Anxiety disorders (1 source) Anxiety disorder, unspecified; Translations: [ANXIETY DISORDER UNSPECIFIED] Onset: 10-05-2022 Chronic Chronic kidney disease (20 sources) Chronic kidney disease stage 3B ; Translations: [Chronic kidney disease, stage 3b] 01-05-2024 Chronic Diabetes mellitus without complication (7 sources) Increased glucose level; Translations: [Other abnormal [...] 08-30-2022 Episodic Other aftercare (1 source) 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; 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] Onset: 10-12-2022 Episodic Other and ill-defined heart disease (3 sources) Other ill-defined heart diseases; Translations: [OTHER ILL-DEFINED HEART DISEASES] Onset: 07-20-2022 Chronic Other ear and sense organ disorders (5 sources) Bilateral objective pulsatile tinnitus of ears; Translations: [Pulsatile tinnitus, bilateral] 12-26-2024 Episodic Other ear and sense organ disorders (2 sources) Pulsatile tinnitus, bilateral; Translations: [Objective tinnitus] 12-26-2024 Episodic Other lower respiratory disease (3 sources) Shortness of breath; Translations: [SHORTNESS OF BREATH] Onset: 09-26-2022 Episodic Other nutritional; endocrine; and metabolic disorders (7 sources) Abnormal weight gain; Translations: [Abnormal weight gain] 05-07-2024 Episodic Other nutritional; endocrine; and metabolic disorders (2 sources) Abnormal weight gain; Translations: [Abnormal weight gain] 05-07-2024 Episodic Other screening for suspected conditions (not mental disorders or infectious disease) (5 sources) Raised TSH level; Translations: [Other specified abnormal findings of blood chemistry] 07-10-2024 Episodic Residual codes; unclassified (9 sources) Insomnia; Translations: [Other insomnia] 01-05-2024 Chronic [...] DIGESTV TRACT] Onset: 09-21-2022 Episodic Substance-related disorders (9 sources) Nicotine dependence, cigarettes, uncomplicated; Translations: [Tobacco dependence syndrome] Onset: 10-05-2022 01-05-2024 Chronic Syncope (7 sources) Syncope; Translations: [Syncope and collapse] 05-07-2024 [...] Test Name Value Interpretation Reference Range Facility Activated partial thrombopla stin time (aPTT) in platelet poor plasma by coagulation aOrdered By: Daphne Emanuel on 04-06-2025 aPTT Coag (PPP) [Time] 27.4 s 22.3-36.2 [facility] Basophils Auto (Bld) [#/Vol] Ordered By: Daphne Emanuel on 04-06-2025 Basophils (Bld) [#/Vol] 0.2 10 3/uL High 0.0-0.1 [facility] Basophils/100 WBC Auto (Bld) Ordered By: Daphne Emanuel on 04-06-2025 Basophils/100 WBC (Bld) 4.2 % High 0.2-2.0 [facility] Eosinophils/100 WBC Auto (Bl d)Ordered By: Daphne Emanuel on 04-06-2025 Eosinophils/100 WBC (Bld) 9.2 % High 0.9-7.0 [facility] Erythrocyte distribution wid th Auto (RBC) [Ratio]Ordered By: Daphne Emanuel on 04-06-2025 Erythrocyte distribution width (RBC) [Ratio] 14.7 % 11.0-15.0 [facility] Estimated glomerular filtrat ion rate (GFR) non- AmericanOrdered By: Daphne Emanuel on 04-06-2025 GFR/1.73 sq M.predicted among non-blacks MDRD (S/P/Bld) [Vol rate/Area] 54 mL/min/{1.73_m2} Low >=60 mL/min/1.73 m 2 [facility] Globulin Calc (S) [Mass/Vol] Ordered By: Daphne Emanuel on 04-06-2025 Globulin (S) [Mass/Vol] 3.1 g/dL F [facility] Hematocrit Auto (Bld) [Volum e fraction]Ordered By: Daphne Emanuel on 04-06-2025 Hematocrit (Bld) [Volume fraction] 45.0 % 36.0-48.0 [facility] Hemoglobin [Mass/volume] in BloodOrdered By: Daphne Emanuel on 04-06-2025 Hemoglobin (Bld) [Mass/Vol] 14.7 g/dL 12.0-16.0 [facility] INR in Platelet poor plasma by Coagulation assayOrdered By: Daphne Emanuel on 04-06-2025 INR Coag (PPP) [Relative time] 1.32 {INR} [facility] Comment on above: DESIRED INR:2.0-3.0 CONDITIONS NOT LISTED BELOW2.5-3.5 FOR PROSTHETIC HEART VALVE REPLACEMENT2.5-3.5 RECURRENT THROMBOSIS Laboratory - Chemistry and C hemistry - challengeOrdered By: Dapnhe Emanuel on 04-06-2025 Bilirubin Ql (U) Negative NEGATIVE [facility] Glucose (U) [Mass/Vol] Negative NEGATIVE Fi [facility] Ketones Ql (U) Negative NEGATIVE [facility] pH (U) 7.0 [pH] 5.0-9.0 [facility] Specific gravity (U) [Rel density] 1.010 1.005-1.025 [facility] Urobilinogen Qn (U) 0.2 {Myranda'U}/dL 0.2-1.0 [facility] Albumin [Mass/Vol] 3.7 g/dL 3.4-5.0 [facility] ALP [Catalytic activity/Vol] 64 U/L 46-116 [facility] ALT [Catalytic activity/Vol] 16 U/L 14-59 [facility] AST [Catalytic activity/Vol] 14 U/L Low 15-37 [facility] Bilirubin [Mass/Vol] 0.4 mg/dL 0.2-1.0 [facility] Calcium [Mass/Vol] 9.9 mg/dL 8.5-10.1 [facility] Chloride [Moles/Vol] 106 mmol/L 98-107 [facility] CO2 [Moles/Vol] 26.9 mmol/L 21.0-32.[address] [facility] Creatinine [Mass/Vol] 0.97 mg/dL 0.55-1.02 [facility] GFR/1.73 sq M.predicted MDRD (S/P/Bld) [Vol rate/Area] mL/min/{1.73_m2} >=60 mL/min/1.73 m 2 [facility] Glucose [Mass/Vol] 102 mg/dL 74-106 [facility] Natriuretic peptide B (Bld) [Mass/Vol] 213.0 pg/mL <=1800.0 [facility] Potassium [Moles/Vol] 3.8 mmol/L 3.5-5.1 [facility] Protein [Mass/Vol] 6.8 g/dL 6.4-8.2 [facility] Sodium [Moles/Vol] 144 mmol/L 136-145 [facility] Urea nitrogen [Mass/Vol] 19.0 mg/dL High 7.0-18.0 [facility] Urea nitrogen/Creatinine [Mass ratio] 19.6 mg/mg [facility] Laboratory - Hematology and Cell countsOrdered By: Daphne Emanuel on 04-06-2025 Immature granulocytes/100 WBC (Bld) 0.5 % 0.0-0.5 [facility] Laboratory - Specimen inform ationOrdered By: Daphne Emanuel on 04-06-2025 Appearance (U) CLEAR CLEAR [facility] Color (U) LT. YELLOW YELLOW [facility] Laboratory - UrinalysisOrder ed By: Daphne Emanuel on 04-06-2025 Leukocyte esterase Test strip Ql (U) Negative NEGATIVE [facility] Mucus Ql (Urine sed) TRACE Abnormal NONE SEEN [facility] Nitrite Ql (U) Negative NEGATIVE [facility] Protein Ql (U) Negative NEG/TRACE [facility] Leukocytes [#/volume] correc gely for nucleated erythrocytes in Blood by Automated counOrdered By: Daphne Emanuel on 04-06-2025 WBC corrected for nucl RBC Auto (Bld) [#/Vol] 5.8 10 3/uL 4.0-11.0 [facility] Lymphocytes Auto (Bld) [#/Vo l]Ordered By: Daphne Emanuel on 04-06-2025 Lymphocytes (Bld) [#/Vol] 2.3 10 3/uL 1.2-3.8 [facility] Lymphocytes/100 WBC Auto (Bl d)Ordered By: Daphne Emanuel on 04-06-2025 Lymphocytes/100 WBC (Bld) 39.5 % 20.5-60.0 [facility] MCH Auto (RBC) [Entitic mass ]Ordered By: Daphne Emanuel on 04-06-2025 MCH (RBC) [Entitic mass] 30.0 pg 26.7-34.0 [facility] MCHC Auto (RBC) [Mass/Vol]Or dered By: Daphne Emanuel on 04-06-2025 MCHC (RBC) [Mass/Vol] 32.7 g/dL 29.9-35.2 [facility] MCV Auto (RBC) [Entitic vol] Ordered By: Daphne Emanuel on 04-06-2025 MCV (RBC) [Entitic vol] 91.8 fL 81.0-99.0 [facility] Monocytes Auto (Bld) [#/Vol] Ordered By: Daphne Emanuel on 04-06-2025 Monocytes (Bld) [#/Vol] 0.8 10 3/uL 0.3-0.8 [facility] Monocytes/100 WBC Auto (Bld) Ordered By: Daphne Emanuel on 04-06-2025 Monocytes/100 WBC (Bld) 13.6 % High 1.7-12.0 [facility] Neutrophils Auto (Bld) [#/Vo l]Ordered By: Daphne Emanuel on 04-06-2025 Neutrophils (Bld) [#/Vol] 1.9 10 3/uL 1.4-6.5 [facility] Neutrophils/100 WBC Auto (Bl d)Ordered By: Daphne Emanuel on 04-06-2025 Neutrophils/100 WBC (Bld) 33.0 % Low 43.0-75.0 [facility] No Panel InformationOrdered By: Daphne Emanuel on 04-06-2025 Urine Bacteria TRACE #/HPF Abnormal NONE SEEN [facility] Urine Culture Reflexed NO [facility] Urine Occult Blood Negative NEGATIVE [facility] Urine Other Casts NONE SEEN #/LPF NONE SEEN [facility] Urine Other Crystals None Seen #/HPF None Seen [facility] Urine RBC 0-2 #/HPF 0-2 [facility] Urine Squamous Epithelial Cells RARE #/LPF NONE/RARE [facility] Urine WBC NONE SEEN #/HPF NONE SEEN [facility] Eosinophils # (Auto) 0.5 10 3/uL 0.0-0.7 [facility] Immature Granulocyte # (Auto) 0.03 10 3/uL 0.00-0.03 [facility] Troponin I High Sensitivity 8.7 pg/mL 4.0-51.3 [facility] Comment on above: CUT-OFF POINTS HAVE [...] Platelet mean volume Auto (B ld) [Entitic vol]Ordered By: Daphne Emanuel on 04-06-2025 Platelet mean volume (Bld) [Entitic vol] 10.7 fL 9.5-13.5 [facility] Platelets Auto (Bld) [#/Vol] Ordered By: Daphne Emanuel on 04-06-2025 Platelets (Bld) [#/Vol] 135 10 3/uL Low 150-450 [facility] Prothrombin time (PT)Ordered By: Daphne Emanuel on 04-06-2025 PT Coag (PPP) [Time] 13.6 s High 9.0-11.6 [facility] RBC Auto (Bld) [#/Vol]Ordere d By: Daphne Emanuel on 04-06-2025 RBC (Bld) [#/Vol] 4.90 10 6/uL 4.20-5.40 [facility] Serum or plasma albumin/glob ulin mass ratioOrdered By: Daphne Emanuel on 04-06-2025 Albumin/Globulin [Mass ratio] 1.2 {ratio} [facility] Serum or plasma anion gap de terminationOrdered By: Daphne Emanuel on 04-06-2025 Anion gap [Moles/Vol] 14.9 mmol/L [facility] Office Visiton 02-12-2025 Follow-up visit [id number] Zoraida Barrios 1935 F Date Provider Department Center 02/12/2025 Sindhu-MISSY BAUER CARD [facility] Family History Problem Relation Age of Onset Hypertension Mother Family Status - Relation Status Age at Mother Father Level of Service:49097 SD OFFICE/OUTPATIENT ESTABLISHED MOD MDM 30 MIN Normal [facility] Basophils Auto (Bld) [#/Vol] on 12-24-2024 Basophils (Bld) [#/Vol] Automated basoph il count High 0.0-0.1 [facility] Basophils/100 WBC Auto (Bld) on 12-24-2024 Basophils/100 WBC (Bld) Automated basophil % High 0. 2-2.0 [facility] Eosinophils/100 WBC Auto (Bl d)on 12-24-2024 Eosinophils/100 WBC (Bld) Automated eosinophil % 0.9-7.0 [facility] Erythrocyte distribution wid th Auto (RBC) [Ratio]on 12-24-2024 Erythrocyte distribution width (RBC) [Ratio] Erythrocyte distribution width [Ratio] by Automated count 11.0-15.0 [facility] Estimated glomerular filtrat ion rate (GFR) non- Americanon 12-24-2024 GFR/1.73 sq M.predicted among non-blacks MDRD (S/P/Bld) [Vol rate/Area] Estimated glomerular filtration rate (GFR) non- Low >=60 mL/min/1.73 m 2 [facility] Globulin Calc (S) [Mass/Vol] on 12-24-2024 Globulin (S) [Mass/Vol] Serum globulin measurement by calculation (mass/volume) [facility] Hematocrit Auto (Bld) [Volum e fraction]on 12-24-2024 Hematocrit (Bld) [Volume fraction] Hematocrit [Volume Fraction] of Blood by Automated count 36.0-48.0 [facility] Hemoglobin [Mass/volume] in Bloodon 12-24-2024 Hemoglobin (Bld) [Mass/Vol] Hemoglobin [Mass/volume] in Blood 12.0-16.0 [facility] Laboratory - Chemistry and C hemistry - challengeon 12-24-2024 Albumin [Mass/Vol] 3.4 g/dL 3.4-5.0 [facility] ALP [Catalytic activity/Vol] 55 U/L 46-116 [facility] ALT [Catalytic activity/Vol] 14 U/L 14-59 [facility] AST [Catalytic activity/Vol] 15 U/L 15-37 [facility] Bilirubin [Mass/Vol] 0.3 mg/dL 0.2-1.0 [facility] Calcium [Mass/Vol] 9.8 mg/dL 8.5-10.1 [facility] Chloride [Moles/Vol] 106 mmol/L 98-107 [facility] CO2 [Moles/Vol] 29.4 mmol/L 21.0-32.[address] [facility] Creatinine [Mass/Vol] 1.24 mg/dL High 0.55-1.02 [facility] GFR/1.73 sq M.predicted MDRD (S/P/Bld) [Vol rate/Area] 49 mL/min/{1.73_m2} Low >=60 mL/min/1.73 m 2 [facility] Glucose [Mass/Vol] 158 mg/dL High 74-106 [facility] Potassium [Moles/Vol] 3.5 mmol/L 3.5-5.1 [facility] Protein [Mass/Vol] 6.3 g/dL Low 6.4-8.2 [facility] Sodium [Moles/Vol] 143 mmol/L 136-145 [facility] Urea nitrogen [Mass/Vol] 25.0 mg/dL High 7.0-18.0 [facility] Urea nitrogen/Creatinine [Mass ratio] 20.2 mg/mg [facility] Laboratory - Hematology and Cell countson 12-24-2024 Immature granulocytes/100 WBC (Bld) 0.4 % 0.0-0.5 [facility] Leukocytes [#/volume] correc gely for nucleated erythrocytes in Blood by Automated counon 12-24-2024 WBC corrected for nucl RBC Auto (Bld) [#/Vol] Leukocytes [#/volume] corrected for nucleated erythrocytes in Blood by Automated coun 4.0-11.0 [facility] Lymphocytes Auto (Bld) [#/Vo l]on 12-24-2024 Lymphocytes (Bld) [#/Vol] Lymphocytes [#/volume] in Blood by Automated count 1.2-3.8 [facility] Lymphocytes/100 WBC Auto (Bl d)on 12-24-2024 Lymphocytes/100 WBC (Bld) Lymphocytes/100 leukocytes in Blood by Automated count 20.5-60.0 [facility] MCH Auto (RBC) [Entitic mass ]on 12-24-2024 MCH (RBC) [Entitic mass] MCH [Entitic mass] by Automated count 26.7-34.0 [facility] MCHC Auto (RBC) [Mass/Vol]on 12-24-2024 MCHC (RBC) [Mass/Vol] MCHC [Mass/volume] by Automated count 29.9-35.2 [facility] MCV Auto (RBC) [Entitic vol] on 12-24-2024 MCV (RBC) [Entitic vol] MCV [Entitic vol ume] by Automated count 81.0-99.0 [facility] Monocytes Auto (Bld) [#/Vol] on 12-24-2024 Monocytes (Bld) [#/Vol] Automated blood monocyte count 0.3-0.8 [facility] Monocytes/100 WBC Auto (Bld) on 12-24-2024 Monocytes/100 WBC (Bld) Automated monocyte % High 1. 7-12.0 [facility] Neutrophils Auto (Bld) [#/Vo l]on 12-24-2024 Neutrophils (Bld) [#/Vol] Neutrophils [#/volume] in Blood by Automated count 1.4-6.5 [facility] Neutrophils/100 WBC Auto (Bl d)on 12-24-2024 Neutrophils/100 WBC (Bld) Automated neutrophil % 43.0-75.0 [facility] No Panel Informationon 12-24 Eosinophils # (Auto) 0.3 10 3/uL 0.0-0.7 [facility] Immature Granulocyte # (Auto) 0.02 10 3/uL 0.00-0.03 [facility] Troponin I High Sensitivity 8.8 pg/mL 4.0-51.3 [facility] Comment on above: CUT-OFF POINTS HAVE [...] volume] in Blood by Automated count 9.5-13.5 [facility] Platelets Auto (Bld) [#/Vol] on 12-24-2024 Platelets (Bld) [#/Vol] Platelets [#/vol ume] in Blood by Automated count Low 150-450 [facility] RBC Auto (Bld) [#/Vol]on RBC (Bld) [#/Vol] Erythrocytes [#/volume] in Blood by Automated count 4.20-5.40 [facility] Serum or plasma albumin/glob ulin mass ratioon 12-24-2024 Albumin/Globulin [Mass ratio] Serum or plasma albumin/globulin mass ratio [facility] Serum or plasma anion gap de terminationon 12-24-2024 Anion gap [Moles/Vol] Serum or plasma an ion gap determination [facility] Office Visiton 11-28-2024 Follow-up visit [id number] Zoraida Barrios 1935 F Date Provider Department Center 11/28/2024 EDVIN PALM CRISTOBAL [facility] Family History Problem Relation Age of Onset Hypertension Mother Family Status - Relation Status Age at Mother Level of Service:42055 SD OFFICE/OUTPATIENT ESTABLISHED LOW MDM 20 MIN Normal [facility] Office Visiton 06-28-2024 Follow-up visit [id number] Zoraida Barrios 1935 F Date Provider Department Center 06/28/2024 AALIYAH HENDERSON CRISTOBAL [facility] Family History Problem Relation Age of Onset Hypertension Mother Family Status - Relation Status Age at Mother Level of Service:31709 SD OFFICE/OUTPATIENT ESTABLISHED LOW MDM 20 MIN Normal [facility] Basophils Auto (Bld) [#/Vol] on 05-15-2024 Basophils (Bld) [#/Vol] 0.2 10 3/uL High 0.0-0.1 [facility] Basophils/100 WBC Auto (Bld) on 05-15-2024 Basophils/100 WBC (Bld) 2.2 % High 0.2-2.0 [facility] Eosinophils/100 WBC Auto (Bl d)on 05-15-2024 Eosinophils/100 WBC (Bld) 5.0 % 0.9-7.0 [facility] Erythrocyte distribution wid th Auto (RBC) [Ratio]on 05-15-2024 Erythrocyte distribution width (RBC) [Ratio] 14.7 % 11.0-15.0 [facility] Estimated glomerular filtrat ion rate (GFR) non- Americanon 05-15-2024 GFR/1.73 sq M.predicted among non-blacks MDRD (S/P/Bld) [Vol rate/Area] 45 mL/min/{1.73_m2} Low >=60 [facility] Hematocrit Auto (Bld) [Volum e fraction]on 05-15-2024 Hematocrit (Bld) [Volume fraction] 40.2 % 36.0-48.0 [facility] Hemoglobin [Mass/volume] in Bloodon 05-15-2024 Hemoglobin (Bld) [Mass/Vol] 13.0 g/dL 12.0-16.0 [facility] Laboratory - Chemistry and C hemistry - challengeon 05-15-2024 Calcium [Mass/Vol] 9.5 mg/dL 8.5-10.1 [facility] Chloride [Moles/Vol] 105 mmol/L 98-107 [facility] CO2 [Moles/Vol] 26.4 mmol/L 21.0-32.[address] [facility] Cobalamin (Vitamin B12) [Mass/Vol] 618.0 pg/mL 193.0-986.0 [facility] Creatinine [Mass/Vol] 1.15 mg/dL High 0.55-1.02 [facility] Free T4 [Mass/Vol] 1.06 ng/dL 0.76-1.46 [facility] GFR/1.73 sq M.predicted MDRD (S/P/Bld) [Vol rate/Area] 54 mL/min/{1.73_m2} Low >=60 [facility] Glucose [Mass/Vol] 104 mg/dL 74-106 [facility] Potassium [Moles/Vol] 4.2 mmol/L 3.5-5.1 [facility] Sodium [Moles/Vol] 137 mmol/L 136-145 [facility] TSH Qn 4.417 m[IU]/L High 0.358-3.740 [facility] Urea nitrogen [Mass/Vol] 20.0 mg/dL High 7.0-18.0 [facility] Urea nitrogen/Creatinine [Mass ratio] 17.4 mg/mg [facility] Laboratory - Hematology and Cell countson 05-15-2024 Immature granulocytes/100 WBC (Bld) 1.3 % High 0.0-0.5 [facility] Leukocytes [#/volume] correc gely for nucleated erythrocytes in Blood by Automated counon 05-15-2024 WBC corrected for nucl RBC Auto (Bld) [#/Vol] 10.4 10 3/uL 4.0-11.0 [facility] Lymphocytes Auto (Bld) [#/Vo l]on 05-15-2024 Lymphocytes (Bld) [#/Vol] 2.1 10 3/uL 1.2-3.8 [facility] Lymphocytes/100 WBC Auto (Bl d)on 05-15-2024 Lymphocytes/100 WBC (Bld) 20.1 % Low 20.5-60.0 [facility] MCH Auto (RBC) [Entitic mass ]on 05-15-2024 MCH (RBC) [Entitic mass] 30.2 pg 26.7-34.0 [facility] MCHC Auto (RBC) [Mass/Vol]on 05-15-2024 MCHC (RBC) [Mass/Vol] 32.3 g/dL 29.9-35.2 [facility] MCV Auto (RBC) [Entitic vol] on 05-15-2024 MCV (RBC) [Entitic vol] 93.3 fL 81.0-99.0 [facility] Monocytes Auto (Bld) [#/Vol] on 05-15-2024 Monocytes (Bld) [#/Vol] 1.4 10 3/uL High 0.3-0.8 [facility] Monocytes/100 WBC Auto (Bld) on 05-15-2024 Monocytes/100 WBC (Bld) 13.0 % High 1.7-12.0 [facility] Neutrophils Auto (Bld) [#/Vo l]on 05-15-2024 Neutrophils (Bld) [#/Vol] 6.1 10 3/uL 1.4-6.5 [facility] Neutrophils/100 WBC Auto (Bl d)on 05-15-2024 Neutrophils/100 WBC (Bld) 58.4 % 43.0-75.0 [facility] No Panel Informationon 05-15 25-Hydroxy Vitamin D Total 32.6 ng/mL [facility] Comment on above: <20 ng/mL Vit D defi cient20-<30 ng/mL Vit D [id number] ng/mL Vit D sufficient>100 ng/mL Potential Toxicity Eosinophils # (Auto) 0.5 10 3/uL 0.0-0.7 [facility] Folate 12.10 ng/mL 8.60-58.90 [facility] Immature Granulocyte # (Auto) 0.13 10 3/uL High 0.00-0.03 [facility] Platelet mean volume Auto (B ld) [Entitic vol]on 05-15-2024 Platelet mean volume (Bld) [Entitic vol] 10.7 fL 9.5-13.5 [facility] Platelets Auto (Bld) [#/Vol] on 05-15-2024 Platelets (Bld) [#/Vol] 132 10 3/uL Low 150-450 [facility] RBC Auto (Bld) [#/Vol]on RBC (Bld) [#/Vol] 4.31 10 6/uL 4.20-5.40 [facility] Serum or plasma anion gap de terminationon 05-15-2024 Anion gap [Moles/Vol] 9.8 mmol/L [facility] Basophils Auto (Bld) [#/Vol] on 05-10-2024 Basophils (Bld) [#/Vol] 0.2 10 3/uL High 0.0-0.1 [facility] Basophils/100 WBC Auto (Bld) on 05-10-2024 Basophils/100 WBC (Bld) 3.1 % High 0.2-2.0 [facility] Eosinophils/100 WBC Auto (Bl d)on 05-10-2024 Eosinophils/100 WBC (Bld) 6.3 % 0.9-7.0 [facility] Erythrocyte distribution wid th Auto (RBC) [Ratio]on 05-10-2024 Erythrocyte distribution width (RBC) [Ratio] 14.8 % 11.0-15.0 [facility] Estimated glomerular filtrat ion rate (GFR) non- Americanon 05-10-2024 GFR/1.73 sq M.predicted among non-blacks MDRD (S/P/Bld) [Vol rate/Area] 39 mL/min/{1.73_m2} Low >=60 [facility] Fibrin D-dimer [Presence] in Platelet poor plasma by Latex agglutinationon 05-10-2024 Fibrin D-dimer LA Ql (PPP) 0.29 mg/L FEU <=0.59 [facility] Comment on above: Increases in D-Dimer [...] on 05-10-2024 Globulin (S) [Mass/Vol] 3.1 g/dL [facility] Hematocrit Auto (Bld) [Volum e fraction]on 05-10-2024 Hematocrit (Bld) [Volume fraction] 39.6 % 36.0-48.0 [facility] Hemoglobin [Mass/volume] in Bloodon 05-10-2024 Hemoglobin (Bld) [Mass/Vol] 12.9 g/dL 12.0-16.0 [facility] INR in Platelet poor plasma by Coagulation assayon 05-10-2024 INR Coag (PPP) [Relative time] 1.34 {INR} [facility] Comment on above: DESIRED INR:2.0-3.0 CONDITIONS NOT LISTED BELOW2.5-3.5 FOR PROSTHETIC HEART VALVE REPLACEMENT2.5-3.5 [facility] Laboratory - Chemistry and C hemistry - challengeon 05-10-2024 Bilirubin Ql (U) Negative NEGATIVE [facility] Glucose (U) [Mass/Vol] Negative NEGATIVE [facility] Ketones Ql (U) Negative NEGATIVE [facility] pH (U) 6.0 [pH] 5.0-9.0 [facility] Specific gravity (U) [Rel density] 1.015 1.005-1.025 [facility] Urobilinogen Qn (U) 0.2 {Myranda'U}/dL 0.2-1.0 [facility] Albumin [Mass/Vol] 3.5 g/dL 3.4-5.0 [facility] ALP [Catalytic activity/Vol] 54 U/L 46-116 [facility] ALT [Catalytic activity/Vol] 17 U/L 14-59 [facility] AST [Catalytic activity/Vol] 14 U/L Low 15-37 [facility] Bilirubin [Mass/Vol] 0.4 mg/dL 0.2-1.0 [facility] Calcium [Mass/Vol] 9.5 mg/dL 8.5-10.1 [facility] Chloride [Moles/Vol] 104 mmol/L 98-107 [facility] CO2 [Moles/Vol] 26.0 mmol/L 21.0-32.[address] [facility] Creatinine [Mass/Vol] 1.28 mg/dL High 0.55-1.02 [facility] GFR/1.73 sq M.predicted MDRD (S/P/Bld) [Vol rate/Area] 48 mL/min/{1.73_m2} Low >=60 [facility] Glucose [Mass/Vol] 143 mg/dL High 74-106 [facility] Natriuretic peptide B (Bld) [Mass/Vol] 178.0 pg/mL <=1800.0 [facility] Potassium [Moles/Vol] 3.9 mmol/L 3.5-5.1 [facility] Protein [Mass/Vol] 6.6 g/dL 6.4-8.2 [facility] Sodium [Moles/Vol] 136 mmol/L 136-145 [facility] Urea nitrogen [Mass/Vol] 21.0 mg/dL High 7.0-18.0 [facility] Urea nitrogen/Creatinine [Mass ratio] 16.4 mg/mg [facility] Laboratory - Hematology and Cell countson 05-10-2024 Immature granulocytes/100 WBC (Bld) 0.3 % 0.0-0.5 [facility] Laboratory - Specimen inform ationon 05-10-2024 Appearance (U) CLEAR CLEAR [facility] Color (U) LT. YELLOW YELLOW [facility] Laboratory - Urinalysison Leukocyte esterase Test strip Ql (U) SMALL Abnormal NEGATIVE [facility] Mucus Ql (Urine sed) NONE SEEN NONE SEEN [facility] Nitrite Ql (U) Negative NEGATIVE [facility] Protein Ql (U) Negative NEG/TRACE [facility] Leukocytes [#/volume] correc gely for nucleated erythrocytes in Blood by Automated counon 05-10-2024 WBC corrected for nucl RBC Auto (Bld) [#/Vol] 5.9 10 3/uL 4.0-11.0 [facility] Lymphocytes Auto (Bld) [#/Vo l]on 05-10-2024 Lymphocytes (Bld) [#/Vol] 1.8 10 3/uL 1.2-3.8 [facility] Lymphocytes/100 WBC Auto (Bl d)on 05-10-2024 Lymphocytes/100 WBC (Bld) 31.0 % 20.5-60.0 [facility] MCH Auto (RBC) [Entitic mass ]on 05-10-2024 MCH (RBC) [Entitic mass] 30.4 pg 26.7-34.0 [facility] MCHC Auto (RBC) [Mass/Vol]on 05-10-2024 MCHC (RBC) [Mass/Vol] 32.6 g/dL 29.9-35.2 [facility] MCV Auto (RBC) [Entitic vol] on 05-10-2024 MCV (RBC) [Entitic vol] 93.2 fL 81.0-99.0 [facility] Monocytes Auto (Bld) [#/Vol] on 05-10-2024 Monocytes (Bld) [#/Vol] 0.7 10 3/uL 0.3-0.8 [facility] Monocytes/100 WBC Auto (Bld) on 05-10-2024 Monocytes/100 WBC (Bld) 12.4 % High 1.7-12.0 [facility] Neutrophils Auto (Bld) [#/Vo l]on 05-10-2024 Neutrophils (Bld) [#/Vol] 2.8 10 3/uL 1.4-6.5 [facility] Neutrophils/100 WBC Auto (Bl d)on 05-10-2024 Neutrophils/100 WBC (Bld) 46.9 % 43.0-75.0 [facility] No Panel Informationon 05-10 Urine Bacteria TRACE #/HPF Abnormal NONE SEEN [facility] Urine Occult Blood TRACE-I NEGATIVE [facility] Urine Other Casts NONE SEEN #/LPF NONE SEEN [facility] Urine Other Crystals None Seen #/HPF None Seen [facility] Urine RBC 5-10 #/HPF Abnormal 0-2 [facility] Urine Squamous Epithelial Cells MODERATE #/LPF Abnormal NONE/RARE [facility] Urine WBC 0-2 #/HPF Abnormal NONE SEEN [facility] Eosinophils # (Auto) 0.4 10 3/uL 0.0-0.7 [facility] Immature Granulocyte # (Auto) 0.02 10 3/uL 0.00-0.03 [facility] Troponin I High Sensitivity 5.5 pg/mL 4.0-51.3 [facility] Comment on above: CUT-OFF POINTS HAVE [...] volume (Bld) [Entitic vol] 10.9 fL 9.5-13.5 [facility] Platelets Auto (Bld) [#/Vol] on 05-10-2024 Platelets (Bld) [#/Vol] 144 10 3/uL Low 150-450 [facility] Prothrombin time (PT)on PT Coag (PPP) [Time] 13.8 s High 9.0-11.6 [facility] RBC Auto (Bld) [#/Vol]on RBC (Bld) [#/Vol] 4.25 10 6/uL 4.20-5.40 [facility] Serum or plasma albumin/glob ulin mass ratioon 05-10-2024 Albumin/Globulin [Mass ratio] 1.1 {ratio} [facility] Serum or plasma anion gap de terminationon 05-10-2024 Anion gap [Moles/Vol] 9.9 mmol/L [facility] Office Visiton 05-01-2024 Follow-up visit [id number] Zoraida Barrios 1935 F Date Provider Department Center 05/01/2024 AALIYAH [facility]ENDERSON [facility] Family History Problem Relation Age of Onset Hypertension Mother Family Status - Relation Status Age at Mother Level of Service:20553 SD OFFICE/OUTPATIENT ESTABLISHED LOW MDM 20 MIN Normal [facility] Basophils/100 WBC Manual cnt (Bld)on 04-25-2024 Basophils/100 WBC (Bld) 0.0 % Low 0.2-2.0 [facility] Eosinophils/100 WBC Manual c nt (Bld)on 04-25-2024 Eosinophils/100 WBC (Bld) 4.0 % 0.9-7.0 [facility] Erythrocyte distribution wid th Auto (RBC) [Ratio]on 04-25-2024 Erythrocyte distribution width (RBC) [Ratio] 14.7 % 11.0-15.0 [facility] Estimated glomerular filtrat ion rate (GFR) non- Americanon 04-25-2024 GFR/1.73 sq M.predicted among non-blacks MDRD (S/P/Bld) [Vol rate/Area] 42 mL/min/{1.73_m2} Low >=60 [facility] Globulin Calc (S) [Mass/Vol] on 04-25-2024 Globulin (S) [Mass/Vol] 3.4 g/dL [facility] Hematocrit Auto (Bld) [Volum e fraction]on 04-25-2024 Hematocrit (Bld) [Volume fraction] 43.1 % 36.0-48.0 [facility] Hemoglobin [Mass/volume] in Bloodon 04-25-2024 Hemoglobin (Bld) [Mass/Vol] 13.8 g/dL 12.0-16.0 [facility] INR in Platelet poor plasma by Coagulation assayon 04-25-2024 INR Coag (PPP) [Relative time] 1.31 {INR} [facility] Comment on above: DESIRED INR:2.0-3.0 CONDITIONS NOT LISTED BELOW2.5-3.5 FOR PROSTHETIC HEART VALVE REPLACEMENT2.5-3.5 RECURRENT THROMBOSIS Laboratory - Chemistry and C hemistry - challengeon 04-25-2024 Albumin [Mass/Vol] 4.0 g/dL 3.4-5.0 [facility] ALP [Catalytic activity/Vol] 63 U/L 46-116 [facility] ALT [Catalytic activity/Vol] 18 U/L 14-59 [facility] AST [Catalytic activity/Vol] 14 U/L Low 15-37 [facility] Bilirubin [Mass/Vol] 0.7 mg/dL 0.2-1.0 [facility] Calcium [Mass/Vol] 9.6 mg/dL 8.5-10.1 [facility] Chloride [Moles/Vol] 104 mmol/L 98-107 [facility] CO2 [Moles/Vol] 29.2 mmol/L 21.0-32.[address] [facility] Creatinine [Mass/Vol] 1.21 mg/dL High 0.55-1.02 [facility] GFR/1.73 sq M.predicted MDRD (S/P/Bld) [Vol rate/Area] 51 mL/min/{1.73_m2} Low >=60 [facility] Glucose [Mass/Vol] 136 mg/dL High 74-106 [facility] Natriuretic peptide B (Bld) [Mass/Vol] 201.0 pg/mL <=1800.0 [facility] Potassium [Moles/Vol] 3.9 mmol/L 3.5-5.1 [facility] Protein [Mass/Vol] 7.4 g/dL 6.4-8.2 [facility] Sodium [Moles/Vol] 139 mmol/L 136-145 [facility] Urea nitrogen [Mass/Vol] 27.0 mg/dL High 7.0-18.0 [facility] Urea nitrogen/Creatinine [Mass ratio] 22.3 mg/mg [facility] Laboratory - Hematology and Cell countson 04-25-2024 Band form neutrophils/100 WBC (Bld) 4.0 % 0-5 [facility] Lymphocytes/100 WBC (Bld) 15.0 % Low 20.5-60.0 [facility] Monocytes/100 WBC (Bld) 3.0 % 1.7-12.0 [facility] Leukocytes [#/volume] correc gely for nucleated erythrocytes in Blood by Automated counon 04-25-2024 WBC corrected for nucl RBC Auto (Bld) [#/Vol] 13.3 10 3/uL High 4.0-11.0 [facility] MCH Auto (RBC) [Entitic mass ]on 04-25-2024 MCH (RBC) [Entitic mass] 30.1 pg 26.7-34.0 [facility] MCHC Auto (RBC) [Mass/Vol]on 04-25-2024 MCHC (RBC) [Mass/Vol] 32.0 g/dL 29.9-35.2 [facility] MCV Auto (RBC) [Entitic vol] on 04-25-2024 MCV (RBC) [Entitic vol] 93.9 fL 81.0-99.0 [facility] No Panel Informationon 04-25 Troponin I High Sensitivity 6.5 pg/mL 4.0-51.3 [facility] Comment on above: CUT-OFF POINTS [...] Absolute Basophils (Manual) 0.00 10 3/uL 0.00-0.10 [facility] Band Neutrophils # (Manual) 0.5 10 3/uL High 0.0-0.3 [facility] Eosinophils # (Manual) 0.53 10 3/uL 0.00-0.70 [facility] Lymphocytes # (Manual) 1.99 10 3/uL 1.20-3.80 [facility] Monocytes # (Manual) 0.39 10 3/uL 0.30-0.80 [facility] Segmented Neutrophils # (Manual) 9.84 10 3/uL High 1.4-6.5 [facility] Platelet mean volume Auto (B ld) [Entitic vol]on 04-25-2024 Platelet mean volume (Bld) [Entitic vol] 10.4 fL 9.5-13.5 [facility] Platelets Auto (Bld) [#/Vol] on 04-25-2024 Platelets (Bld) [#/Vol] 145 10 3/uL Low 150-450 [facility] Prothrombin time (PT)on 04-08 PT Coag (PPP) [Time] 13.5 s High 9.0-11.6 [facility] RBC Auto (Bld) [#/Vol]on RBC (Bld) [#/Vol] 4.59 10 6/uL 4.20-5.40 [facility] Segmented neutrophils/100 WB C Manual cnt (Bld)on 04-25-2024 Segmented neutrophils/100 WBC (Bld) 74.0 % [facility] Serum or plasma albumin/glob ulin mass ratioon 04-25-2024 Albumin/Globulin [Mass ratio] 1.2 {ratio} [facility] Serum or plasma anion gap de terminationon 04-25-2024 Anion gap [Moles/Vol] 9.7 mmol/L [facility] Office Visiton 03-28-2024 Follow-up visit [id number] Zoraida Barrios 1935 F Date Provider Department Center 03/28/2024 AALIYAH HENDERSON CARD [facility] Family History Problem Relation Age of Onset Hypertension Mother Family Status - Relation Status Age at Mother Level of Service:66289 SD OFFICE/OUTPATIENT ESTABLISHED LOW MDM 20 MIN Normal [facility] Basophils Auto (Bld) [#/Vol] on 12-28-2023 Basophils (Bld) [#/Vol] 0.2 10 3/uL 0.0-0.1 [facility] Basophils/100 WBC Auto (Bld) on 12-28-2023 Basophils/100 WBC (Bld) 3.4 % 0.2-2.0 [facility] Eosinophils/100 WBC Auto (Bl d)on 12-28-2023 Eosinophils/100 WBC (Bld) 6.2 % 0.9-7.0 [facility] Erythrocyte distribution wid th Auto (RBC) [Ratio]on 12-28-2023 Erythrocyte distribution width (RBC) [Ratio] 14.8 % 11.0-15.0 [facility] Estimated glomerular filtrat ion rate (GFR) non- Americanon 12-28-2023 GFR/1.73 sq M.predicted among non-blacks MDRD (S/P/Bld) [Vol rate/Area] 46 mL/min/{1.73_m2} >=60 [facility] Hematocrit Auto (Bld) [Volum e fraction]on 12-28-2023 Hematocrit (Bld) [Volume fraction] 42.9 % 36.0-48.0 [facility] Hemoglobin [Mass/volume] in Bloodon 12-28-2023 Hemoglobin (Bld) [Mass/Vol] 13.7 g/dL 12.0-16.0 [facility] Laboratory - Chemistry and C hemistry - challengeon 12-28-2023 Calcium [Mass/Vol] 9.7 mg/dL 8.5-10.1 [facility] Chloride [Moles/Vol] 106 mmol/L 98-107 [facility] CO2 [Moles/Vol] 26.1 mmol/L 21.0-32.[address] [facility] Creatinine [Mass/Vol] 1.11 mg/dL 0.55-1.02 [facility] GFR/1.73 sq M.predicted MDRD (S/P/Bld) [Vol rate/Area] 56 mL/min/{1.73_m2} >=60 [facility] Glucose [Mass/Vol] 108 mg/dL 74-106 [facility] Potassium [Moles/Vol] 3.8 mmol/L 3.5-5.1 [facility] Sodium [Moles/Vol] 139 mmol/L 136-145 [facility] Urea nitrogen [Mass/Vol] 22.0 mg/dL 7.0-18.0 [facility] Urea nitrogen/Creatinine [Mass ratio] 19.8 mg/mg [facility] Laboratory - Hematology and Cell countson 12-28-2023 Immature granulocytes/100 WBC (Bld) 0.5 % 0.0-0.5 [facility] Leukocytes [#/volume] correc gely for nucleated erythrocytes in Blood by Automated counon 12-28-2023 WBC corrected for nucl RBC Auto (Bld) [#/Vol] 6.0 10 3/uL 4.0-11.0 [facility] Lymphocytes Auto (Bld) [#/Vo l]on 12-28-2023 Lymphocytes (Bld) [#/Vol] 2.1 10 3/uL 1.2-3.8 [facility] Lymphocytes/100 WBC Auto (Bl d)on 12-28-2023 Lymphocytes/100 WBC (Bld) 34.9 % 20.5-60.0 [facility] MCH Auto (RBC) [Entitic mass ]on 12-28-2023 MCH (RBC) [Entitic mass] 30.0 pg 26.7-34.0 [facility] MCHC Auto (RBC) [Mass/Vol]on 12-28-2023 MCHC (RBC) [Mass/Vol] 31.9 g/dL 29.9-35.2 [facility] MCV Auto (RBC) [Entitic vol] on 12-28-2023 MCV (RBC) [Entitic vol] 93.9 fL 81.0-99.0 [facility] Monocytes Auto (Bld) [#/Vol] on 12-28-2023 Monocytes (Bld) [#/Vol] 0.9 10 3/uL 0.3-0.8 [facility] Monocytes/100 WBC Auto (Bld) on 12-28-2023 Monocytes/100 WBC (Bld) 15.1 % 1.7-12.0 [facility] Neutrophils Auto (Bld) [#/Vo l]on 12-28-2023 Neutrophils (Bld) [#/Vol] 2.4 10 3/uL 1.4-6.5 [facility] Neutrophils/100 WBC Auto (Bl d)on 12-28-2023 Neutrophils/100 WBC (Bld) 39.9 % 43.0-75.0 [facility] No Panel Informationon 12-27 Eosinophils # (Auto) 0.4 10 3/uL 0.0-0.7 [facility] Immature Granulocyte # (Auto) 0.03 10 3/uL 0.00-0.03 [facility] Troponin I High Sensitivity 6.6 pg/mL 4.0-51.3 [facility] Comment on above: CUT-OFF POINTS HAVE [...] volume (Bld) [Entitic vol] 10.8 fL 9.5-13.5 [facility] Platelets Auto (Bld) [#/Vol] on 12-28-2023 Platelets (Bld) [#/Vol] 142 10 3/uL 150-450 [facility] RBC Auto (Bld) [#/Vol]on RBC (Bld) [#/Vol] 4.57 10 6/uL 4.20-5.40 [facility] Serum or plasma anion gap de terminationon 12-28-2023 Anion gap [Moles/Vol] 10.7 mmol/L [facility] PROF CHEM 8 (BAS METB)on Anion gap [Moles/Vol] 12.5 mmol/L Normal [facility] Comment on above: Performed By: #### B MP #### [facility] [address] [address] [address] Arden Magallon Calcium [Mass/Vol] 10.0 mg/dL Normal 8.5-10.1 [facility] Comment on above: Performed By: #### B MP #### [facility] [address] [address] [address] Arden Magallon Chloride [Moles/Vol] 105 mmol/L Normal 98-107 [facility] Comment on above: Performed By: #### B MP #### [facility] [address] [address] [address] Arden Magallon CO2 [Moles/Vol] 29.9 mmol/L Normal 21.0-32.0 [facility] Comment on above: Performed By: #### B MP #### [facility] [address] [address] [address] Arden Magallon Creatinine [Mass/Vol] 1.26 mg/dL Critically high 0.55-1.02 [facility] Comment on above: Performed By: #### B MP #### [facility] [address] [address] [address] Arden Magallon EGFR-AF BAHRAINI 49 mL/min/1.73m2 Critically low >=60 [facility] Comment on above: Performed By: #### B MP #### [facility] [address] [address] [address] Arden Magallon EGFR-NON AF BAHRAINI 40 mL/min/1.73m2 Critically low >=60 [facility] Comment on above: Performed By: #### B MP #### [facility] [address] [address] [address] Arden Magallon Glucose [Mass/Vol] 108 mg/dL Critically high 74-106 [facility] Comment on above: Performed By: #### B MP #### [facility] [address] [address] [address] Arden Magallon Potassium [Moles/Vol] 3.4 mmol/L Critically low 3.5-5.1 [facility] Comment on above: Performed By: #### B MP #### [facility] [address] [address] [address] Arden Magallon Sodium [Moles/Vol] 144 mmol/L Normal 136-145 [facility] Comment on above: Performed By: #### B MP #### [facility] [address] [address] [address] Arden Magallon Urea nitrogen [Mass/Vol] 28.0 mg/dL Critically high 7.0-18.0 [facility] Comment on above: Performed By: #### B MP #### [facility] [address] [address] [address] Arden Magallon Urea nitrogen/Creatinine [Mass ratio] 22.2 mg/mg Normal [facility] Comment on above: Performed By: #### B MP #### [facility] [address] [address] [address] Arden Magallon CARDIAC CINDY 3-6on 2 CK [Catalytic activity/Vol] 27 U/L Normal 26-192 [facility] Comment on above: Performed By: #### B MP #### [facility] [address] [address] [address] Arden Magallon CK.MB [Mass/Vol] 0.84 ng/mL Normal <=3.60 [facility] Comment on above: Performed By: #### B MP #### [facility] [address] [address] [address] Arden Magallon HSTROP 12.4 pg/mL Normal 4.0-51.3 [facility] Comment on above: Result Comment: CUT- OFF POINTS HAVE BEEN ESTABLISHED BASED ON THE FOURTH UNIVERSAL DEFINITIONS OF MYOCARDIAL INFARCTION. THE UPPER REFERENCE LIMIT (URL) OF TROPONIN, DEFINED THE 99TH PERCENTILE OF cTnI DISTRIBUTION IN A REFERENCE POPULATION, HAS BEEN CONFIRMED THE DECISION THRESHOLD FOR MA DIAGNOSIS. Performed By: #### B MP #### [facility] [address] [place] [address] Dr. Arden Magallon CARDIAC CINDY ADMITon 022 CK [Catalytic activity/Vol] 42 U/L Normal 26-192 [facility] Comment on above: Performed By: #### B MP #### [facility] [address] [place] [address] Dr. Arden Magallon CK.MB [Mass/Vol] 0.82 ng/mL Normal <=3.60 [facility] Comment on above: Performed By: #### B MP #### [facility] [address] [place] [address] Dr. Arden Magallon HSTROP 9.8 pg/mL Normal 4.0-51.3 [facility] Comment on above: Result Comment: CUT- OFF POINTS HAVE BEEN ESTABLISHED BASED ON THE FOURTH UNIVERSAL DEFINITIONS OF MYOCARDIAL INFARCTION. THE UPPER REFERENCE LIMIT (URL) OF TROPONIN, DEFINED THE 99TH PERCENTILE OF cTnI DISTRIBUTION IN A REFERENCE POPULATION, HAS BEEN CONFIRMED THE DECISION THRESHOLD FOR [place] DIAGNOSIS. Performed By: #### B MP #### [facility] [address] [place] [address] Dr. Arden Magallon IKE 50 ng/mL Normal 9-82 [facility] Comment on above: Performed By: #### B MP #### [facility] [address] [place] [address] Dr. Arden Magallon CBC AUTO DIFFon 09-30-2022 BASO # 0.2 103/ul Critically high 0.0-0.1 [facility] Comment on above: Performed By: #### C BC #### [facility] [address] [place] [address] Dr. Arden Magallon Basophils/100 WBC (Bld) 2.2 % Critically high 0.2-2.0 [facility] Comment on above: Performed By: #### C BC #### [facility] [address] [place] [address] Dr. Arden Magallon EO # 1.3 103/ul Critically high 0.0-0.7 [facility] Comment on above: Performed By: #### C BC #### [facility] [address] [place] [address] Dr. Arden Magallon Eosinophils/100 WBC (Bld) 16.5 % Critically high 0.9-7.0 [facility] Comment on above: Performed By: #### C BC #### [facility] [address] [place] [address] Dr. Arden Magallon Erythrocyte distribution width (RBC) [Ratio] 14.3 % Normal 11.0-15.0 [facility] Comment on above: Performed By: #### C BC #### [facility] [address] [place] [address] Dr. Arden Magallon Hematocrit (Bld) [Volume fraction] 38.3 % Normal 36.0-48.0 [facility] Comment on above: Performed By: #### C BC #### [facility] [address] [place] [address] Dr. Arden Magallon Hemoglobin (Bld) [Mass/Vol] 12.6 g/dL Normal 12.0-16.0 [facility] Comment on above: Performed By: #### C BC #### [facility] [address] [place] [address] Dr. Arden Magallon IG # 0.03 10e3/ul Normal 0.00-0.03 [facility] Comment on above: Performed By: #### C BC #### [facility] [address] [place] [address] Dr. Arden Magallon IG % 0.4 % Normal 0.0-0.5 [facility] Comment on above: Performed By: #### C BC #### [facility] [address] [place] [address] Dr. Arden Magallon LYMPH # 2.4 103/ul Normal 1.2-3.8 [facility] Comment on above: Performed By: #### C BC #### [facility] [address] [place] [address] Dr. Arden Magallon Lymphocytes/100 WBC (Bld) 30.0 % Normal 20.5-60.0 [facility] Comment on above: Performed By: #### C BC #### [facility] [address] [place] [address] Dr. Arden Magallon MANUAL DIFF REQ NO Normal [facility] Comment on above: Performed By: #### C BC #### [facility] [address] [place] [address] Dr. Arden Magallon MCH (RBC) [Entitic mass] 30.7 pg Normal 26.7-34.0 [facility] Comment on above: Performed By: #### C BC #### [facility] [address] [place] [address] Dr. Ardne Magallon MCHC (RBC) [Mass/Vol] 32.9 g/dL Normal 29.9-35.2 [facility] Comment on above: Performed By: #### C BC #### [facility] [address] [place] [address] Dr. Arden Magallon MCV (RBC) [Entitic vol] 93.4 fL Normal 81.0-99.0 [facility] Comment on above: Performed By: #### C BC #### [facility] [address] [place] [address] Dr. Arden Magallon MONO # 1.1 103/ul Critically high 0.3-0.8 [facility] Comment on above: Performed By: #### C BC #### [facility] [address] [place] [address] Dr. Arden Magallon Monocytes/100 WBC (Bld) 14.2 % Critically high 1.7-12. 0 [facility] Comment on above: Performed By: #### C BC #### [facility] [address] [place] [address] Dr. Arden Magallon NEUT # 2.9 103/ul Normal 1.4-6.5 [facility] Comment on above: Performed By: #### C BC #### [facility] [address] [place] [address] Dr. Arden Magallon Neutrophils/100 WBC (Bld) 36.7 % Critically low 43.0-75.0 [facility] Comment on above: Performed By: #### C BC #### [facility] [address] [place] [address] Dr. Arden Magallon Platelet mean volume (Bld) [Entitic vol] 11.4 fL Normal 9.5-13.5 [facility] Comment on above: Performed By: #### C BC #### [facility] [address] [place] [address] Dr. Arden Magallon PLT 162 103/ul Normal 150-450 [facility] Comment on above: Performed By: #### C BC #### [facility] [address] [place] [address] Dr. Arden Magallon RBC 4.10 106/ul Critically low 4.20-5.40 [facility] Comment on above: Performed By: #### C BC #### [facility] [address] [place] [address] Dr. Arden Magallon WBC 8.0 103/ul Normal 4.0-11.0 [facility] Comment on above: Performed By: #### C BC #### [facility] [address] [place] [address] Dr. Arden Magallon PROF CHEM 8 (BAS METB)on Anion gap [Moles/Vol] 11.8 mmol/L Normal [facility] Comment on above: Performed By: #### B MP #### [facility] [address] [place] [address] Dr. Arden Magallon Calcium [Mass/Vol] 9.7 mg/dL Normal 8.5-10.1 [facility] Comment on above: Performed By: #### B MP #### [facility] [address] [place] [address] Dr. Arden Magallon Chloride [Moles/Vol] 105 mmol/L Normal 98-107 [facility] Comment on above: Performed By: #### B MP #### [facility] [address] [place] [address] Dr. Arden Magallon CO2 [Moles/Vol] 25.0 mmol/L Normal 21.0-32.0 [facility] Comment on above: Performed By: #### B MP #### [facility] [address] [address] [address] Arden Magallon Creatinine [Mass/Vol] 1.07 mg/dL Critically high 0.55-1.02 [facility] Comment on above: Performed By: #### B MP #### [facility] [address] [address] [address] Arden Magallon EGFR-AF BAHRAINI 59 mL/min/1.73m2 Critically low >=60 [facility] Comment on above: Performed By: #### B MP #### [facility] [address] [address] [address] Arden Magallon EGFR-NON AF BAHRAINI 49 mL/min/1.73m2 Critically low >=60 [facility] Comment on above: Performed By: #### B MP #### [facility] [address] [address] [address] Arden Magallon Glucose [Mass/Vol] 106 mg/dL Normal 74-106 [facility] Comment on above: Performed By: #### B MP #### [facility] [address] [address] [address] Arden Magallon Potassium [Moles/Vol] 3.8 mmol/L Normal 3.5-5.1 [facility] Comment on above: Performed By: #### B MP #### [facility] [address] [address] [address] Arden Magallon Sodium [Moles/Vol] 138 mmol/L Normal 136-145 [facility] Comment on above: Performed By: #### B MP #### [facility] [address] [address] [address] Arden Magallon Urea nitrogen [Mass/Vol] 18.0 mg/dL Normal 7.0-18.0 [facility] Comment on above: Performed By: #### B MP #### [facility] [address] [address] [address] Arden Magallon Urea nitrogen/Creatinine [Mass ratio] 16.8 mg/mg Normal [facility] Comment on above: Performed By: #### B MP #### [facility] [address] [place] [address] Dr. Arden Magallon CBC AUTO DIFFon 09-26-2022 BASO # 0.2 103/ul Critically high 0.0-0.1 [facility] Comment on above: Performed By: #### C BC #### [facility] [address] [place] [address] Dr. Arden Magallon Basophils/100 WBC (Bld) 2.1 % Critically high 0.2-2.0 [facility] Comment on above: Performed By: #### C BC #### [facility] [address] [place] [address] Dr. Arden Magallon EO # 1.5 103/ul Critically high 0.0-0.7 [facility] Comment on above: Performed By: #### C BC #### [facility] [address] [place] [address] Dr. Arden Magallon Eosinophils/100 WBC (Bld) 16.6 % Critically high 0.9-7.0 [facility] Comment on above: Performed By: #### C BC #### [facility] [address] [place] [address] Dr. Arden Magallon Erythrocyte distribution width (RBC) [Ratio] 14.1 % Normal 11.0-15.0 [facility] Comment on above: Performed By: #### C BC #### [facility] [address] [place] [address] Dr. Arden Magallon Hematocrit (Bld) [Volume fraction] 37.7 % Normal 36.0-48.0 [facility] Comment on above: Performed By: #### C BC #### [facility] [address] [place] [address] Dr. Arden Magallon Hemoglobin (Bld) [Mass/Vol] 12.5 g/dL Normal 12.0-16.0 [facility] Comment on above: Performed By: #### C BC #### [facility] [address] [place] [address] Dr. Arden Magallon IG # 0.04 10e3/ul Critically high 0.00-0.03 [facility] Comment on above: Performed By: #### C BC #### [facility] [address] [place] [address] Dr. Arden Magallon IG % 0.4 % Normal 0.0-0.5 [facility] Comment on above: Performed By: #### C BC #### [facility] [address] [place] [address] Dr. Arden Magallon LYMPH # 1.8 103/ul Normal 1.2-3.8 [facility] Comment on above: Performed By: #### C BC #### [facility] [address] [place] [address] Dr. Arden Magallon Lymphocytes/100 WBC (Bld) 19.6 % Critically low 20.5-60.0 [facility] Comment on above: Performed By: #### C BC #### [facility] [address] [place] [address] Dr. Arden Magallon MANUAL DIFF REQ NO Normal [facility] Comment on above: Performed By: #### C BC #### [facility] [address] [place] [address] Dr. Arden Magallon MCH (RBC) [Entitic mass] 31.1 pg Normal 26.7-34.0 [facility] Comment on above: Performed By: #### C BC #### [facility] [address] [place] [address] Dr. Arden Magallon MCHC (RBC) [Mass/Vol] 33.2 g/dL Normal 29.9-35.2 [facility] Comment on above: Performed By: #### C BC #### [facility] [address] [place] [address] Dr. Arden Magallon MCV (RBC) [Entitic vol] 93.8 fL Normal 81.0-99.0 [facility] Comment on above: Performed By: #### C BC #### [facility] [address] [place] [address] Dr. Arden Magallon MONO # 1.1 103/ul Critically high 0.3-0.8 [facility] Comment on above: Performed By: #### C BC #### [facility] [address] [place] [address] Dr. Arden Magallon Monocytes/100 WBC (Bld) 12.1 % Critically high 1.7-12. 0 [facility] Comment on above: Performed By: #### C BC #### [facility] [address] [place] [address] Dr. Arden Magallon NEUT # 4.6 103/ul Normal 1.4-6.5 [facility] Comment on above: Performed By: #### C BC #### [facility] [address] [place] [address] Dr. Arden Magallon Neutrophils/100 WBC (Bld) 49.2 % Normal 43.0-75.0 [facility] Comment on above: Performed By: #### C BC #### [facility] [address] [place] [address] Dr. Arden Magallon Platelet mean volume (Bld) [Entitic vol] 10.8 fL Normal 9.5-13.5 [facility] Comment on above: Performed By: #### C BC #### [facility] [address] [place] [address] Dr. Arden Magallon PLT 149 103/ul Critically low 150-450 [facility] Comment on above: Performed By: #### C BC #### [facility] [address] [place] [address] Dr. Arden Magallon RBC 4.02 106/ul Critically low 4.20-5.40 [facility] Comment on above: Performed By: #### C BC #### [facility] [address] [place] [address] Dr. Arden Magallon WBC 9.3 103/ul Normal 4.0-11.0 [facility] Comment on above: Performed By: #### C BC #### [facility] [address] [place] [address] Dr. Arden Magallon Covid-19 PCR ([facility])on 09-08 SARS-CoV-2 (COVID-19) RNA ISABELLA+probe Ql (Unsp spec) Not detected Normal NOT DETECTED [facility] Comment on above: Result Comment: This test is not yet approved or cleared by the [place] FDA. When there are no FDA-approved or cleared tests available, and other criteria are met, FDA can make tests available under an emergency access mechanism called an Emergency Use Authorization (EUA). The EUA for this test is supported by the [employer] of Health and Human Service's (HHS's) declaration [...] SARS-CoV-2. Performed By: #### C BC #### [facility] [address] [place] [address] Dr. Arden Magallon INFLUENZA A AND B [facility]on 09[facility] Normal [facility] Comment on above: Result Comment: Nega tive for Flu A protein angiten. Infection due to Flu A cannot be ruled out. Flu A angiten in the sample may be below the detection limit of the test. Performed By: #### C BC #### [facility] [address] [place] [address] Dr. Arden Magallon INFLUBNEG SEE BELOW Normal [facility] Comment on above: Result Comment: Nega tive for Flu B protein antigen. Infection due to Flu B cannot be ruled out. Flu B antigen in the sample may be below the detection limit of the test. Performed By: #### C BC #### [facility] [address] [place] [address] Dr. Arden Magallon INFLUENZA A AG Negative Normal NEGATIVE SEE COMMENT [facility] Comment on above: Performed By: #### C BC #### [facility] [address] [place] [address] Dr. Arden Magallon INFLUENZA B AG Negative Normal NEGATIVE SEE COMMENT [facility] Comment on above: Performed By: #### C BC #### [facility] [address] [place] [address] Dr. Arden Magallon INTERNAL CONTROLS Within Normal Limits Normal Wi thin Normal Limits [facility] Comment on above: Performed By: #### C BC #### [facility] [address] [place] [address] Dr. Arden Magallon PROF CHEM 8 (BAS METB)on Anion gap [Moles/Vol] 10.8 mmol/L Normal [facility] Comment on above: Performed By: #### P T, DDIM #### [facility] [address] [place] [address] Dr. Arden Magallon Calcium [Mass/Vol] 9.3 mg/dL Normal 8.5-10.1 [facility] Comment on above: Performed By: #### P T, DDIM #### [facility] [address] [place] [address] Dr. Arden Magallon Chloride [Moles/Vol] 107 mmol/L Normal 98-107 [facility] Comment on above: Performed By: #### P T, DDIM #### [facility] [address] [place] [address] Dr. Arden Magallon CO2 [Moles/Vol] 28.0 mmol/L Normal 21.0-32.0 [facility] Comment on above: Performed By: #### P T, DDIM #### [facility] [address] [place] [address] Dr. Arden Magallon Creatinine [Mass/Vol] 0.98 mg/dL Normal 0.55-1.02 [facility] Comment on above: Performed By: #### P T, DDIM #### [facility] [address] [place] [address] Dr. Arden Magallon EGFR-AF BAHRAINI >60 Normal >=60 [facility] Comment on above: Performed By: #### P T, DDIM #### [facility] [address] [place], [place] [id number] Dr. Arden Magallon EGFR-NON AF BAHRAINI 54 mL/min/1.73m2 Critically low >=60 [facility] Comment on above: Performed By: #### P T, DDIM #### [facility] [address] [place] [address] Dr. Arden Magallon Glucose [Mass/Vol] 111 mg/dL Critically high 74-106 [facility] Comment on above: Performed By: #### P T, DDIM #### [facility] [address] [place] [address] Dr. Arden Magallon Potassium [Moles/Vol] 3.8 mmol/L Normal 3.5-5.1 [facility] Comment on above: Performed By: #### P T, DDIM #### [facility] [address] [place] [address] Dr. Arden Magallon Sodium [Moles/Vol] 142 mmol/L Normal 136-145 [facility] Comment on above: Performed By: #### P T, DDIM #### [facility] [address] [place] [address] Dr. Arden Magallon Urea nitrogen [Mass/Vol] 15.0 mg/dL Normal 7.0-18.0 [facility] Comment on above: Performed By: #### P T, DDIM #### [facility] [address] [place] [address] Dr. Arden Magallon Urea nitrogen/Creatinine [Mass ratio] 15.3 mg/mg Normal [facility] Comment on above: Performed By: #### P T, DDIM #### [facility] [address] [place] [address] Dr. Arden Magallon XR CHEST 1 Von [...] bibasilar infiltrates versus atelectasis. Electronically authenticated by: HARJINDERALVIN RAMIREZ Date: 2022-09-26 10:22 Normal [facility] CBC AUTO DIFFon 09-21-2022 BASO # 0.2 103/ul Critically high 0.0-0.1 [facility] Comment on above: Performed By: #### C BC #### [facility] [address] [address] [address] Arden Magallon Basophils/100 WBC (Bld) 2.0 % Normal 0.2-2.0 [facility] Comment on above: Performed By: #### C BC #### [facility] [address] [place] [address] Dr. Arden Magallon EO # 0.8 103/ul Critically high 0.0-0.7 [facility] Comment on above: Performed By: #### C BC #### [facility] [address] [address] [address] Arden Magallon Eosinophils/100 WBC (Bld) 9.7 % Critically high 0.9-7.0 [facility] Comment on above: Performed By: #### C BC #### [facility] [address] [place] [address] Dr. Arden Magallon Erythrocyte distribution width (RBC) [Ratio] 14.2 % Normal 11.0-15.0 [facility] Comment on above: Performed By: #### C BC #### [facility] [address] [place] [address] Dr. Arden Magallon Hematocrit (Bld) [Volume fraction] 39.2 % Normal 36.0-48.0 [facility] Comment on above: Performed By: #### C BC #### [facility] [address] [place] [address] Dr. Arden Magallon Hemoglobin (Bld) [Mass/Vol] 12.7 g/dL Normal 12.0-16.0 [facility] Comment on above: Performed By: #### C BC #### [facility] [address] [place] [address] Dr. Arden Magallon IG # 0.04 10e3/ul Critically high 0.00-0.03 [facility] Comment on above: Performed By: #### C BC #### [facility] [address] [place] [address] Dr. Arden Magallon IG % 0.5 % Normal 0.0-0.5 [facility] Comment on above: Performed By: #### C BC #### [facility] [address] [place] [address] Dr. Arden Magallon LYMPH # 1.7 103/ul Normal 1.2-3.8 [facility] Comment on above: Performed By: #### C BC #### [facility] [address] [place] [address] Dr. Arden Magallon Lymphocytes/100 WBC (Bld) 19.2 % Critically low 20.5-60.0 [facility] Comment on above: Performed By: #### C BC #### [facility] [address] [place] [address] Dr. Arden Magallon MANUAL DIFF REQ NO Normal [facility] Comment on above: Performed By: #### C BC #### [facility] [address] [place] [address] Dr. Arden Magallon MCH (RBC) [Entitic mass] 31.1 pg Normal 26.7-34.0 [facility] Comment on above: Performed By: #### C BC #### [facility] [address] [place] [address] Dr. Arden Magallon MCHC (RBC) [Mass/Vol] 32.4 g/dL Normal 29.9-35.2 [facility] Comment on above: Performed By: #### C BC #### [facility] [address] [place] [address] Dr. Arden Magallon MCV (RBC) [Entitic vol] 96.1 fL Normal 81.0-99.0 [facility] Comment on above: Performed By: #### C BC #### [facility] [address] [place] [address] Dr. Arden Magallon MONO # 0.8 103/ul Normal 0.3-0.8 [facility] Comment on above: Performed By: #### C BC #### [facility] [address] [place] [address] Dr. Arden Magallon Monocytes/100 WBC (Bld) 9.5 % Normal 1.7-12.0 [facility] Comment on above: Performed By: #### C BC #### [facility] [address] [place] [address] Dr. Arden Magallon NEUT # 5.2 103/ul Normal 1.4-6.5 [facility] Comment on above: Performed By: #### C BC #### [facility] [address] [place] [address] Dr. Arden Magallon Neutrophils/100 WBC (Bld) 59.1 % Normal 43.0-75.0 [facility] Comment on above: Performed By: #### C BC #### [facility] [address] [place] [address] Dr. Arden Magallon Platelet mean volume (Bld) [Entitic vol] 11.0 fL Normal 9.5-13.5 [facility] Comment on above: Performed By: #### C BC #### [facility] [address] [place] [address] Dr. Arden Magallon PLT 167 103/ul Normal 150-450 [facility] Comment on above: Performed By: #### C BC #### [facility] [address] [place] [address] Dr. Arden Magallon RBC 4.08 106/ul Critically low 4.20-5.40 [facility] Comment on above: Performed By: #### C BC #### [facility] [address] [place] [address] Dr. Arden Magallon WBC 8.7 103/ul Normal 4.0-11.0 [facility] Comment on above: Performed By: #### C BC #### [facility] [address] [place] [address] Dr. Arden Magallon PROF CHEM 8 (BAS METB)on Anion gap [Moles/Vol] 10.4 mmol/L Normal Th [facility] Comment on above: Performed By: #### B MP #### [facility] [address] [address] [address] Arden Magallon Calcium [Mass/Vol] 9.9 mg/dL Normal 8.5-10.1 [facility] Comment on above: Performed By: #### B MP #### [facility] [address] [address] [address] Arden Magallon Chloride [Moles/Vol] 104 mmol/L Normal 98-107 [facility] Comment on above: Performed By: #### B MP #### [facility] [address] [address] [address] Arden Magallon CO2 [Moles/Vol] 28.0 mmol/L Normal 21.0-32.0 [facility] Comment on above: Performed By: #### B MP #### [facility] [address] [address] [address] Arden Magallon Creatinine [Mass/Vol] 1.20 mg/dL Critically high 0.55-1.02 [facility] Comment on above: Performed By: #### B MP #### [facility] [address] [address] [address] Arden Magallon EGFR-AF BAHRAINI 52 mL/min/1.73m2 Critically low >=60 [facility] Comment on above: Performed By: #### B MP #### [facility] [address] [address] [address] Arden Magallon EGFR-NON AF BAHRAINI 43 mL/min/1.73m2 Critically low >=60 [facility] Comment on above: Performed By: #### B MP #### [facility] [address] [address] [address] Arden Magallon Glucose [Mass/Vol] 133 mg/dL Critically high 74-106 [facility] Comment on above: Performed By: #### B MP #### [facility] [address] [address] [address] Arden Magallon Potassium [Moles/Vol] 3.4 mmol/L Critically low 3.5-5.1 [facility] Comment on above: Performed By: #### B MP #### [facility] [address] [place] [address] Dr. Arden Magallon Sodium [Moles/Vol] 139 mmol/L Normal 136-145 [facility] Comment on above: Performed By: #### B MP #### [facility] [address] [place] [address] Dr. Arden Magallon Urea nitrogen [Mass/Vol] 19.0 mg/dL Critically high 7.0-18.0 [facility] Comment on above: Performed By: #### B MP #### [facility] [address] [place] [address] Dr. Arden Magallon Urea nitrogen/Creatinine [Mass ratio] 15.8 mg/mg Normal [facility] Comment on above: Performed By: #### B MP #### [facility] [address] [place] [address] Dr. Arden Magallon TSHon 09-21-2022 TSH 1.918 uIU/mL Normal 0.358-3.740 [facility] Comment on above: Performed By: #### B MP #### [facility] [address] [place] [address] Dr. Arden Magallon BNPon 09-18-2022 Natriuretic peptide B (Bld) [Mass/Vol] 366.0 pg/mL Normal <=1,800.0 [facility] Comment on above: Performed By: #### B MOLD DESIGN ENGINEER, CMP #### [facility] [address] [place] [address] Dr. Arden Magallon CBC AUTO DIFFon 09-18-2022 BASO # 0.1 103/ul Normal 0.0-0.1 [facility] Comment on above: Performed By: #### C BC #### [facility] [address] [place] [address] Dr. Arden Magallon Basophils/100 WBC (Bld) 1.7 % Normal 0.2-2.0 [facility] Comment on above: Performed By: #### C BC #### [facility] [address] [place] [address] Dr. Arden Magallon EO # 0.7 103/ul Normal 0.0-0.7 [facility] Comment on above: Performed By: #### C BC #### [facility] [address] [place] [address] Dr. Arden Magallon Eosinophils/100 WBC (Bld) 9.1 % Critically high 0.9-7.0 [facility] Comment on above: Performed By: #### C BC #### [facility] [address] [place] [address] Dr. Arden Magallon Erythrocyte distribution width (RBC) [Ratio] 14.4 % Normal 11.0-15.0 [facility] Comment on above: Performed By: #### C BC #### [facility] [address] [place] [address] Dr. Arden Magallon Hematocrit (Bld) [Volume fraction] 39.0 % Normal 36.0-48.0 [facility] Comment on above: Performed By: #### C BC #### [facility] [address] [place] [address] Dr. Arden Magallon Hemoglobin (Bld) [Mass/Vol] 12.8 g/dL Normal 12.0-16.0 [facility] Comment on above: Performed By: #### C BC #### [facility] [address] [place] [address] Dr. Arden Magallon IG # 0.02 10e3/ul Normal 0.00-0.03 [facility] Comment on above: Performed By: #### C BC #### [facility] [address] [place] [address] Dr. Arden Magallon IG % 0.3 % Normal 0.0-0.5 [facility] Comment on above: Performed By: #### C BC #### [facility] [address] [place] [address] Dr. Arden Magallon LYMPH # 1.8 103/ul Normal 1.2-3.8 [facility] Comment on above: Performed By: #### C BC #### [facility] [address] [place] [address] Dr. Arden Magallon Lymphocytes/100 WBC (Bld) 23.6 % Normal 20.5-60.0 [facility] Comment on above: Performed By: #### C BC #### [facility] [address] [place] [address] Dr. Arden Magallon MANUAL DIFF REQ NO Normal [facility] Comment on above: Performed By: #### C BC #### [facility] [address] [place] [address] Dr. Arden Magallon MCH (RBC) [Entitic mass] 31.0 pg Normal 26.7-34.0 [facility] Comment on above: Performed By: #### C BC #### [facility] [address] [place] [address] Dr. Arden Magallon MCHC (RBC) [Mass/Vol] 32.8 g/dL Normal 29.9-35.2 [facility] Comment on above: Performed By: #### C BC #### [facility] [address] [place] [address] Dr. Arden Magallon MCV (RBC) [Entitic vol] 94.4 fL Normal 81.0-99.0 [facility] Comment on above: Performed By: #### C BC #### [facility] [address] [place] [address] Dr. Arden Magallon MONO # 1.1 103/ul Critically high 0.3-0.8 [facility] Comment on above: Performed By: #### C BC #### [facility] [address] [place] [address] Dr. Arden Magallon Monocytes/100 WBC (Bld) 15.2 % Critically high 1.7-12. 0 [facility] Comment on above: Performed By: #### C BC #### [facility] [address] [place] [address] Dr. Arden Magallon NEUT # 3.8 103/ul Normal 1.4-6.5 [facility] Comment on above: Performed By: #### C BC #### [facility] [address] [place] [address] Dr. Arden Magallon Neutrophils/100 WBC (Bld) 50.1 % Normal 43.0-75.0 [facility] Comment on above: Performed By: #### C BC #### [facility] [address] [place] [address] Dr. Arden Magallon Platelet mean volume (Bld) [Entitic vol] 11.0 fL Normal 9.5-13.5 [facility] Comment on above: Performed By: #### C BC #### [facility] [address] [address] [address] Arden Magallon PLT 149 103/ul Critically low 150-450 [facility] Comment on above: Performed By: #### C BC #### [facility] [address] [place] [address] Dr. Arden Magallon RBC 4.13 106/ul Critically low 4.20-5.40 [facility] Comment on above: Performed By: #### C BC #### [facility] [address] [place] [address] Dr. Arden Magallon WBC 7.5 103/ul Normal 4.0-11.0 [facility] Comment on above: Performed By: #### C BC #### [facility] [address] [place] [address] Dr. Arden Magallon D-DIMERon 09-18-2022 D-DIMER 0.32 mg/L FEU Normal <=0.59 The [facility] Comment on above: Performed By: #### P T, DDIM #### [facility] [address] [place] [address] Dr. Arden Magallon D-DIMER COMMENTS SEE BELOW Normal [facility] Comment on above: Result Comment: Incr [...] Performed By: #### P T, DDIM #### [facility] [address] [address] [address] Arden Magallon PROF 14(COMP METB)on 022 Albumin [Mass/Vol] 3.5 g/dL Normal 3.4-5.0 [facility] Comment on above: Performed By: #### B MOLD DESIGN ENGINEER, CMP #### [facility] [address] [address] [address] Arden Magallon Albumin/Globulin [Mass ratio] 1.2 {ratio} Normal [facility] Comment on above: Performed By: #### B MOLD DESIGN ENGINEER, CMP #### [facility] [address] [place] [address] Dr. Arden Magallon ALP [Catalytic activity/Vol] 57 U/L Normal 46-116 [facility] Comment on above: Performed By: #### B MOLD DESIGN ENGINEER, CMP #### [facility] [address] [place] [address] Dr. Arden Magallon ALT [Catalytic activity/Vol] 16 U/L Normal 14-59 [facility] Comment on above: Performed By: #### B MOLD DESIGN ENGINEER, CMP #### [facility] [address] [place] [address] Dr. Arden Magallon Anion gap [Moles/Vol] 9.1 mmol/L Normal [facility] Comment on above: Performed By: #### B MOLD DESIGN ENGINEER, CMP #### [facility] [address] [place] [address] Dr. Arden Magallon AST [Catalytic activity/Vol] 17 U/L Normal 15-37 [facility] Comment on above: Performed By: #### B MOLD DESIGN ENGINEER, CMP #### [facility] [address] [place] [address] Dr. Arden Magallon Bilirubin [Mass/Vol] 0.3 mg/dL Normal 0.2-1.0 [facility] Comment on above: Performed By: #### B MOLD DESIGN ENGINEER, CMP #### [facility] [address] [place] [address] Dr. Arden Magallon Calcium [Mass/Vol] 9.6 mg/dL Normal 8.5-10.1 [facility] Comment on above: Performed By: #### B MOLD DESIGN ENGINEER, CMP #### [facility] [address] [address] [address] Arden Magallon Chloride [Moles/Vol] 106 mmol/L Normal 98-107 [facility] Comment on above: Performed By: #### B MOLD DESIGN ENGINEER, CMP #### [facility] [address] [address] [address] Arden Magallon CO2 [Moles/Vol] 24.9 mmol/L Normal 21.0-32.0 [facility] Comment on above: Performed By: #### B MOLD DESIGN ENGINEER, CMP #### [facility] [address] [address] [address] Arden Magallon Creatinine [Mass/Vol] 1.06 mg/dL Critically high 0.55-1.02 [facility] Comment on above: Performed By: #### B MOLD DESIGN ENGINEER, CMP #### [facility] [address] [address] [address] Arden Magallon EGFR-AF BAHRAINI =60 Normal >=60 [facility] Comment on above: Performed By: #### B MOLD DESIGN ENGINEER, CMP #### [facility] [address] [address] [address] Arden Magallon EGFR-NON AF BAHRAINI 49 mL/min/1.73m2 Critically low >=60 [facility] Comment on above: Performed By: #### B MOLD DESIGN ENGINEER, CMP #### [facility] [address] [address] [address] Arden Magallon Globulin (S) [Mass/Vol] 3.0 g/dL Normal [facility] Comment on above: Performed By: #### B MOLD DESIGN ENGINEER, CMP #### [facility] [address] [address] [address] Arden Magallon Glucose [Mass/Vol] 111 mg/dL Critically high 74-106 [facility] Comment on above: Performed By: #### B MOLD DESIGN ENGINEER, CMP #### [facility] [address] [address] [address] Arden Magallon Potassium [Moles/Vol] 4.0 mmol/L Normal 3.5-5.1 [facility] Comment on above: Performed By: #### B MOLD DESIGN ENGINEER, CMP #### [facility] [address] [address] [address] Arden Magallon Protein [Mass/Vol] 6.5 g/dL Normal 6.4-8.2 [facility] Comment on above: Performed By: #### B MOLD DESIGN ENGINEER, CMP #### [facility] [address] [address] [address] Arden Magallon Sodium [Moles/Vol] 136 mmol/L Normal 136-145 [facility] Comment on above: Performed By: #### B MOLD DESIGN ENGINEER, CMP #### [facility] [address] [address] [address] Arden Magallon Urea nitrogen [Mass/Vol] 16.0 mg/dL Normal 7.0-18.0 [facility] Comment on above: Performed By: #### B MOLD DESIGN ENGINEER, CMP #### [facility] [address] [address] [address] Arden Magallon Urea nitrogen/Creatinine [Mass ratio] 15.1 mg/mg Normal [facility] Comment on above: Performed By: #### B MOLD DESIGN ENGINEER, CMP #### [facility] [address] [address] [address] Arden Magallon TROPONIN, HIGH SENSITIVITYon 09-18-2022 HSTROP 8.3 pg/mL Normal 4.0-51.3 [facility] Comment on above: Result Comment: CUT- OFF POINTS HAVE BEEN ESTABLISHED BASED ON THE FOURTH UNIVERSAL DEFINITIONS OF MYOCARDIAL INFARCTION. THE UPPER REFERENCE LIMIT (URL) OF TROPONIN, DEFINED THE 99TH PERCENTILE OF cTnI DISTRIBUTION IN A REFERENCE POPULATION, HAS BEEN CONFIRMED THE DECISION THRESHOLD FOR MA DIAGNOSIS. Performed By: #### B MOLD DESIGN ENGINEER, CMP #### [facility] [address] [address] [address] Arden Magallon XR CHEST 1 Von [...] BERNIE NAVARRO Date: 2022-09-18 16:11 Normal [facility] CBC AUTO DIFFon 09-11-2022 BASO # 0.1 103/ul Normal 0.0-0.1 [facility] Comment on above: Performed By: #### B MP #### [facility] [address] [address] [address] Arden Magallon Basophils/100 WBC (Bld) 2.3 % Critically high 0.2-2.0 [facility] Comment on above: Performed By: #### B MP #### [facility] [address] [address] [address] Arden Magallon EO # 0.5 103/ul Normal 0.0-0.7 [facility] Comment on above: Performed By: #### B MP #### [facility] [address] [address] [address] Arden Magallon Eosinophils/100 WBC (Bld) 8.0 % Critically high 0.9-7.0 [facility] Comment on above: Performed By: #### B MP #### [facility] [address] [address] [address] Arden Magallon Erythrocyte distribution width (RBC) [Ratio] 13.8 % Normal 11.0-15.0 [facility] Comment on above: Performed By: #### B MP #### [facility] [address] [address] [address] Arden Magallon Hematocrit (Bld) [Volume fraction] 40.5 % Normal 36.0-48.0 [facility] Comment on above: Performed By: #### B MP #### [facility] [address] [place] [address] Dr. Arden Magallon Hemoglobin (Bld) [Mass/Vol] 13.5 g/dL Normal 12.0-16.0 [facility] Comment on above: Performed By: #### B MP #### [facility] [address] [place] [address] Dr. Arden Magallon IG # 0.01 10e3/ul Normal 0.00-0.03 [facility] Comment on above: Performed By: #### B MP #### [facility] [address] [place] [address] Dr. Arden Magallon IG % 0.2 % Normal 0.0-0.5 [facility] Comment on above: Performed By: #### B MP #### [facility] [address] [place] [address] Dr. Arden Magallon LYMPH # 1.5 103/ul Normal 1.2-3.8 [facility] Comment on above: Performed By: #### B MP #### [facility] [address] [place] [address] Dr. Arden Magallon Lymphocytes/100 WBC (Bld) 24.9 % Normal 20.5-60.0 [facility] Comment on above: Performed By: #### B MP #### [facility] [address] [place] [address] Dr. Arden Magallon MANUAL DIFF REQ NO Normal [facility] Comment on above: Performed By: #### B MP #### [facility] [address] [place] [address] Dr. Arden Magallon MCH (RBC) [Entitic mass] 31.1 pg Normal 26.7-34.0 [facility] Comment on above: Performed By: #### B MP #### [facility] [address] [place] [address] Dr. Arden Magallon MCHC (RBC) [Mass/Vol] 33.3 g/dL Normal 29.9-35.2 [facility] Comment on above: Performed By: #### B MP #### [facility] [address] [place] [address] Dr. Arden Magallon MCV (RBC) [Entitic vol] 93.3 fL Normal 81.0-99.0 [facility] Comment on above: Performed By: #### B MP #### [facility] [address] [address] [address] Arden Magallon MONO # 1.0 103/ul Critically high 0.3-0.8 [facility] Comment on above: Performed By: #### B MP #### [facility] [address] [address] [address] Arden Magallon Monocytes/100 WBC (Bld) 16.0 % Critically high 1.7-12. 0 [facility] Comment on above: Performed By: #### B MP #### [facility] [address] [place] [address] Dr. Arden Magallon NEUT # 2.9 103/ul Normal 1.4-6.5 [facility] Comment on above: Performed By: #### B MP #### [facility] [address] [place] [address] Dr. Arden Magallon Neutrophils/100 WBC (Bld) 48.6 % Normal 43.0-75.0 [facility] Comment on above: Performed By: #### B MP #### [facility] [address] [place] [address] Dr. Arden Magallon Platelet mean volume (Bld) [Entitic vol] 10.8 fL Normal 9.5-13.5 [facility] Comment on above: Performed By: #### B MP #### [facility] [address] [place] [address] Dr. Arden Magallon PLT 138 103/ul Critically low 150-450 [facility] Comment on above: Performed By: #### B MP #### [facility] [address] [place] [address] Dr. Arden Magallon RBC 4.34 106/ul Normal 4.20-5.40 [facility] Comment on above: Performed By: #### B MP #### [facility] [address] [place] [address] Dr. Arden Magallon WBC 6.0 103/ul Normal 4.0-11.0 [facility] Comment on above: Performed By: #### B MP #### [facility] [address] [place] [address] Dr. Arden Magallon PROF CHEM 8 (BAS METB)on Anion gap [Moles/Vol] 9.0 mmol/L Normal [facility] Comment on above: Performed By: #### P T, DDIM #### [facility] [address] [place] [address] Dr. Arden Magallon Calcium [Mass/Vol] 9.6 mg/dL Normal 8.5-10.1 [facility] Comment on above: Performed By: #### P T, DDIM #### [facility] [address] [place] [address] Dr. Arden Magallon Chloride [Moles/Vol] 105 mmol/L Normal 98-107 [facility] Comment on above: Performed By: #### P T, DDIM #### [facility] [address] [place] [address] Dr. Arden Magallon CO2 [Moles/Vol] 29.1 mmol/L Normal 21.0-32.0 [facility] Comment on above: Performed By: #### P T, DDIM #### [facility] [address] [place] [address] Dr. Arden Magallon Creatinine [Mass/Vol] 1.00 mg/dL Normal 0.55-1.02 [facility] Comment on above: Performed By: #### P T, DDIM #### [facility] [address] [place] [address] Dr. Arden Magallon EGFR-AF BAHRAINI >60 Normal >=60 [facility] Comment on above: Performed By: #### P T, DDIM #### [facility] [address] [place] [address] Dr. Arden Magallon EGFR-NON AF BAHRAINI 53 mL/min/1.73m2 Critically low >=60 [facility] Comment on above: Performed By: #### P T, DDIM #### [facility] [address] [place] [address] Dr. Ardne Magallon Glucose [Mass/Vol] 116 mg/dL Critically high 74-106 [facility] Comment on above: Performed By: #### P T, DDIM #### [facility] [address] [place] [address] Dr. Arden Magallon Potassium [Moles/Vol] 4.1 mmol/L Normal 3.5-5.1 [facility] Comment on above: Performed By: #### P T, DDIM #### [facility] [address] [place] [address] Dr. Arden Magallon Sodium [Moles/Vol] 139 mmol/L Normal 136-145 [facility] Comment on above: Performed By: #### P T, DDIM #### [facility] [address] [place] [address] Dr. Arden Magallon Urea nitrogen [Mass/Vol] 15.0 mg/dL Normal 7.0-18.0 [facility] Comment on above: Performed By: #### P T, DDIM #### [facility] [address] [place] [address] Dr. Arden Magallon Urea nitrogen/Creatinine [Mass ratio] 15.0 mg/mg Normal [facility] Comment on above: Performed By: #### P T, DDIM #### [facility] [address] [place] [address] Dr. Arden Magallon CBC AUTO DIFFon 08-30-2022 BASO # 0.2 103/ul Critically high 0.0-0.1 [facility] Comment on above: Performed By: #### B MOLD DESIGN ENGINEER, CMP #### [facility] [address] [place] [address] Dr. Arden Magallon Basophils/100 WBC (Bld) 2.7 % Critically high 0.2-2.0 [facility] Comment on above: Performed By: #### B MOLD DESIGN ENGINEER, CMP #### [facility] [address] [place] [address] Dr. Arden Magallon EO # 0.5 103/ul Normal 0.0-0.7 [facility] Comment on above: Performed By: #### B MOLD DESIGN ENGINEER, CMP #### [facility] [address] [place] [address] Dr. Arden Magallon Eosinophils/100 WBC (Bld) 6.7 % Normal 0.9-7.0 [facility] Comment on above: Performed By: #### B MOLD DESIGN ENGINEER, CMP #### [facility] [facility] [address] [place] [address] Dr. Arden Magallon Erythrocyte distribution width (RBC) [Ratio] 14.3 % Normal 11.0-15.0 [facility] Comment on above: Performed By: #### B MOLD DESIGN ENGINEER, CMP #### [facility] [address] [place] [address] Dr. Arden Magallon Hematocrit (Bld) [Volume fraction] 43.1 % Normal 36.0-48.0 [facility] Comment on above: Performed By: #### B MOLD DESIGN ENGINEER, CMP #### [facility] [address] [place] [address] Dr. Arden Magallon Hemoglobin (Bld) [Mass/Vol] 14.5 g/dL Normal 12.0-16.0 [facility] Comment on above: Performed By: #### B MOLD DESIGN ENGINEER, CMP #### [facility] [address] [place] [address] Dr. Arden Magallon IG # 0.02 10e3/ul Normal 0.00-0.03 [facility] Comment on above: Performed By: #### B MOLD DESIGN ENGINEER, CMP #### [facility] [address] [place] [address] Dr. Arden Magallon IG % 0.3 % Normal 0.0-0.5 [facility] Comment on above: Performed By: #### B MOLD DESIGN ENGINEER, CMP #### [facility] [address] [place] [address] Dr. Arden Magallon LYMPH # 3.1 103/ul Normal 1.2-3.8 [facility] Comment on above: Performed By: #### B MOLD DESIGN ENGINEER, CMP #### [facility] [address] [place] [address] Dr. Arden Magallon Lymphocytes/100 WBC (Bld) 41.0 % Normal 20.5-60.0 [facility] Comment on above: Performed By: #### B MOLD DESIGN ENGINEER, CMP #### [facility] [address] [address] [address] Arden Magallon MANUAL DIFF REQ NO Normal [facility] Comment on above: Performed By: #### B MOLD DESIGN ENGINEER, CMP #### [facility] [address] [place] [address] Dr. Arden Magallon MCH (RBC) [Entitic mass] 31.6 pg Normal 26.7-34.0 [facility] Comment on above: Performed By: #### B MOLD DESIGN ENGINEER, CMP #### [facility] [address] [place] [address] Dr. Arden Magallon MCHC (RBC) [Mass/Vol] 33.6 g/dL Normal 29.9-35.2 [facility] Comment on above: Performed By: #### B MOLD DESIGN ENGINEER, CMP #### [facility] [address] [place] [address] Dr. Arden Magallon MCV (RBC) [Entitic vol] 93.9 fL Normal 81.0-99.0 [facility] Comment on above: Performed By: #### B MOLD DESIGN ENGINEER, CMP #### [facility] [address] [place] [address] Dr. Arden Magallon MONO # 0.8 103/ul Normal 0.3-0.8 [facility] Comment on above: Performed By: #### B MOLD DESIGN ENGINEER, CMP #### [facility] [address] [place] [address] Dr. Arden Magallon Monocytes/100 WBC (Bld) 10.9 % Normal 1.7-12.0 [facility] Comment on above: Performed By: #### B MOLD DESIGN ENGINEER, CMP #### [facility] [address] [place] [address] Dr. Arden Magallon NEUT # 2.9 103/ul Normal 1.4-6.5 [facility] Comment on above: Performed By: #### B MOLD DESIGN ENGINEER, CMP #### [facility] [address] [place] [address] Dr. Arden Magallon Neutrophils/100 WBC (Bld) 38.4 % Critically low 43.0-75.0 [facility] Comment on above: Performed By: #### B MOLD DESIGN ENGINEER, CMP #### [facility] [address] [place] [address] Dr. Arden Magallon Platelet mean volume (Bld) [Entitic vol] 10.8 fL Normal 9.5-13.5 [facility] Comment on above: Performed By: #### B MOLD DESIGN ENGINEER, CMP #### [facility] [address] [place] [address] Dr. Arden Magallon PLT 165 103/ul Normal 150-450 [facility] Comment on above: Performed By: #### B MOLD DESIGN ENGINEER, CMP #### [facility] [address] [place] [address] Dr. Arden Magallon RBC 4.59 106/ul Normal 4.20-5.40 [facility] Comment on above: Performed By: #### B MOLD DESIGN ENGINEER, CMP #### [facility] [address] [place] [address] Dr. Arden Magallon WBC 7.5 103/ul Normal 4.0-11.0 [facility] Comment on above: Performed By: #### B MOLD DESIGN ENGINEER, CMP #### [facility] [address] [place] [address] Dr. Arden Magallon PROF 14(COMP METB)on 022 Albumin [Mass/Vol] 3.9 g/dL Normal 3.4-5.0 [facility] Comment on above: Performed By: #### P T, DDIM #### [facility] [address] [place] [address] Dr. Arden Magallon Albumin/Globulin [Mass ratio] 1.2 {ratio} Normal [facility] Comment on above: Performed By: #### P T, DDIM #### [facility] [address] [place] [address] Dr. Arden Magallon ALP [Catalytic activity/Vol] 69 U/L Normal 46-116 [facility] Comment on above: Performed By: #### P T, DDIM #### [facility] [address] [place] [address] Dr. Arden Magallon ALT [Catalytic activity/Vol] 16 U/L Normal 14-59 [facility] Comment on above: Performed By: #### P T, DDIM #### [facility] [address] [place] [address] Dr. Arden Magallon Anion gap [Moles/Vol] 8.6 mmol/L Normal [facility] Comment on above: Performed By: #### P T, DDIM #### [facility] [address] [place] [address] Dr. Arden Magallon AST [Catalytic activity/Vol] 14 U/L Critically low 15-37 [facility] Comment on above: Performed By: #### P T, DDIM #### [facility] [address] [place] [address] Dr. Arden Magallon Bilirubin [Mass/Vol] 0.3 mg/dL Normal 0.2-1.0 [facility] Comment on above: Performed By: #### P T, DDIM #### [facility] [address] [place] [address] Dr. Arden Magallon Calcium [Mass/Vol] 9.5 mg/dL Normal 8.5-10.1 [facility] Comment on above: Performed By: #### P T, DDIM #### [facility] [address] [place] [address] Dr. Arden Magallon Chloride [Moles/Vol] 104 mmol/L Normal 98-107 [facility] Comment on above: Performed By: #### P T, DDIM #### [facility] [address] [place] [address] Dr. Arden Magallon CO2 [Moles/Vol] 29.2 mmol/L Normal 21.0-32.0 [facility] Comment on above: Performed By: #### P T, DDIM #### [facility] [address] [place] [address] Dr. Arden Magallon Creatinine [Mass/Vol] 1.25 mg/dL Critically high 0.55-1.02 [facility] Comment on above: Performed By: #### P T, DDIM #### [facility] [address] [place] [address] Dr. Arden Magallon EGFR-AF BAHRAINI 49 mL/min/1.73m2 Critically low >=60 [facility] Comment on above: Performed By: #### P T, DDIM #### [facility] [address] [address] [address] Arden Magallon EGFR-NON AF BAHRAINI 41 mL/min/1.73m2 Critically low >=60 [facility] Comment on above: Performed By: #### P T, DDIM #### [facility] [address] [address] [address] Arden Magallon Globulin (S) [Mass/Vol] 3.3 g/dL Normal T [facility] Comment on above: Performed By: #### P T, DDIM #### [facility] [address] [place] [address] Dr. Arden Magallon Glucose [Mass/Vol] 119 mg/dL Critically high 74-106 [facility] Comment on above: Performed By: #### P T, DDIM #### [facility] [address] [place] [address] Dr. Arden Magallon Potassium [Moles/Vol] 3.8 mmol/L Normal 3.5-5.1 [facility] Comment on above: Performed By: #### P T, DDIM #### [facility] [address] [place] [address] Dr. Arden Magallon Protein [Mass/Vol] 7.2 g/dL Normal 6.4-8.2 [facility] Comment on above: Performed By: #### P T, DDIM #### [facility] [address] [place] [address] Dr. Arden Magallon Sodium [Moles/Vol] 138 mmol/L Normal 136-145 [facility] Comment on above: Performed By: #### P T, DDIM #### [facility] [address] [place] [address] Dr. Arden Magallon Urea nitrogen [Mass/Vol] 24.0 mg/dL Critically high 7.0-18.0 [facility] Comment on above: Performed By: #### P T, DDIM #### [facility] [address] [address] [address] Arden Magallon Urea nitrogen/Creatinine [Mass ratio] 19.2 mg/mg Normal [facility] Comment on above: Performed By: #### P T, DDIM #### [facility] [address] [place] [address] Dr. Arden Magallon BNPon 08-26-2022 Natriuretic peptide B (Bld) [Mass/Vol] 427.0 pg/mL Normal <=1,800.0 [facility] Comment on above: Performed By: #### P T, DDIM #### [facility] [address] [place] [address] Dr. Arden Magallon CARDIAC CINDY ADMITon 022 CK [Catalytic activity/Vol] 56 U/L Normal 26-192 [facility] Comment on above: Performed By: #### P T, DDIM #### [facility] [address] [place] [address] Dr. Arden Magallon CK.MB [Mass/Vol] 1.41 ng/mL Normal <=3.60 [facility] Comment on above: Performed By: #### P T, DDIM #### [facility] [address] [place] [address] Dr. Arden Magallon HSTROP 9.0 pg/mL Normal 4.0-51.3 [facility] Comment on above: Result Comment: CUT- OFF POINTS HAVE BEEN ESTABLISHED BASED ON THE FOURTH UNIVERSAL DEFINITIONS OF MYOCARDIAL INFARCTION. THE UPPER REFERENCE LIMIT (URL) OF TROPONIN, DEFINED THE 99TH PERCENTILE OF cTnI DISTRIBUTION IN A REFERENCE POPULATION, HAS BEEN CONFIRMED THE DECISION THRESHOLD FOR [place] DIAGNOSIS. Performed By: #### P T, DDIM #### [facility] [address] [place] [address] Dr. Arden Magallon IKE 99 ng/mL Critically high 9-82 [facility] Comment on above: Performed By: #### P T, DDIM #### [facility] [address] [place] [address] Dr. Arden Magallon CBC AUTO DIFFon 08-26-2022 BASO # 0.2 103/ul Critically high 0.0-0.1 [facility] Comment on above: Performed By: #### C BC #### [facility] [address] [place] [address] Dr. Arden Magallon Basophils/100 WBC (Bld) 2.2 % Critically high 0.2-2.0 [facility] Comment on above: Performed By: #### C BC #### [facility] [address] [place] [address] Dr. Arden Magallon EO # 0.4 103/ul Normal 0.0-0.7 [facility] Comment on above: Performed By: #### C BC #### [facility] [address] [place] [address] Dr. Arden Magallon Eosinophils/100 WBC (Bld) 5.1 % Normal 0.9-7.0 [facility] Comment on above: Performed By: #### C BC #### [facility] [address] [place] [address] Dr. Arden Magallon Erythrocyte distribution width (RBC) [Ratio] 14.1 % Normal 11.0-15.0 [facility] Comment on above: Performed By: #### C BC #### [facility] [address] [place] [address] Dr. Arden Magallon Hematocrit (Bld) [Volume fraction] 41.2 % Normal 36.0-48.0 [facility] Comment on above: Performed By: #### C BC #### [facility] [address] [place] [address] Dr. Arden Magallon Hemoglobin (Bld) [Mass/Vol] 13.6 g/dL Normal 12.0-16.0 [facility] Comment on above: Performed By: #### C BC #### [facility] [address] [place] [address] Dr. Arden Magallon IG # 0.03 10e3/ul Normal 0.00-0.03 [facility] Comment on above: Performed By: #### C BC #### [facility] [address] [place] [address] Dr. Arden Magallon IG % 0.4 % Normal 0.0-0.5 [facility] Comment on above: Performed By: #### C BC #### [facility] [address] [address] [address] Arden Magallon LYMPH # 2.4 103/ul Normal 1.2-3.8 [facility] Comment on above: Performed By: #### C BC #### [facility] [address] [address] [address] Arden Magallon Lymphocytes/100 WBC (Bld) 30.1 % Normal 20.5-60.0 [facility] Comment on above: Performed By: #### C BC #### [facility] [address] [place] [address] Dr. Arden Magallon MANUAL DIFF REQ NO Normal [facility] Comment on above: Performed By: #### C BC #### [facility] [address] [place] [address] Dr. Arden Magallon MCH (RBC) [Entitic mass] 30.8 pg Normal 26.7-34.0 [facility] Comment on above: Performed By: #### C BC #### [facility] [address] [place] [address] Dr. Arden Magallon MCHC (RBC) [Mass/Vol] 33.0 g/dL Normal 29.9-35.2 [facility] Comment on above: Performed By: #### C BC #### [facility] [address] [place] [address] Dr. Arden Magallon MCV (RBC) [Entitic vol] 93.4 fL Normal 81.0-99.0 [facility] Comment on above: Performed By: #### C BC #### [facility] [address] [place] [address] Dr. Arden Magallon MONO # 0.8 103/ul Normal 0.3-0.8 [facility] Comment on above: Performed By: #### C BC #### [facility] [address] [place] [address] Dr. Arden Magallon Monocytes/100 WBC (Bld) 9.8 % Normal 1.7-12.0 [facility] Comment on above: Performed By: #### C BC #### [facility] [address] [address] [address] Arden Magallon NEUT # 4.2 103/ul Normal 1.4-6.5 [facility] Comment on above: Performed By: #### C BC #### [facility] [address] [place] [address] Dr. Arden Magallon Neutrophils/100 WBC (Bld) 52.4 % Normal 43.0-75.0 [facility] Comment on above: Performed By: #### C BC #### [facility] [address] [place] [address] Dr. Arden Magallon Platelet mean volume (Bld) [Entitic vol] 10.7 fL Normal 9.5-13.5 [facility] Comment on above: Performed By: #### C BC #### [facility] [address] [place] [address] Dr. Arden Magallon PLT 154 103/ul Normal 150-450 [facility] Comment on above: Performed By: #### C BC #### [facility] [address] [place] [address] Dr. Arden Magallon RBC 4.41 106/ul Normal 4.20-5.40 [facility] Comment on above: Performed By: #### C BC #### [facility] [address] [place] [address] Dr. Arden Magallon WBC 8.1 103/ul Normal 4.0-11.0 [facility] Comment on above: Performed By: #### C BC #### [facility] [address] [place] [address] Dr. Arden Magallon PROF 14(COMP METB)on 022 Albumin [Mass/Vol] 3.7 g/dL Normal 3.4-5.0 [facility] Comment on above: Performed By: #### P T, DDIM #### [facility] [address] [place] [address] Dr. Arden Magallon Albumin/Globulin [Mass ratio] 1.2 {ratio} Normal [facility] Comment on above: Performed By: #### P T, DDIM #### [facility] [address] [address] [address] Arden Magallon ALP [Catalytic activity/Vol] 57 U/L Normal 46-116 [facility] Comment on above: Performed By: #### P T, DDIM #### [facility] [address] [address] [address] Arden Magallon ALT [Catalytic activity/Vol] 17 U/L Normal 14-59 [facility] Comment on above: Performed By: #### P T, DDIM #### [facility] [address] [address] [address] Arden Magallon Anion gap [Moles/Vol] 9.1 mmol/L Normal [facility] Comment on above: Performed By: #### P T, DDIM #### [facility] [address] [place] [address] Dr. Arden Magallon AST [Catalytic activity/Vol] 12 U/L Critically low 15-37 [facility] Comment on above: Performed By: #### P T, DDIM #### [facility] [address] [address] [address] Arden Magallon Bilirubin [Mass/Vol] 0.6 mg/dL Normal 0.2-1.0 [facility] Comment on above: Performed By: #### P T, DDIM #### [facility] [address] [address] [address] Arden Magallon Calcium [Mass/Vol] 9.5 mg/dL Normal 8.5-10.1 [facility] Comment on above: Performed By: #### P T, DDIM #### [facility] [address] [address] [address] Arden Magallon Chloride [Moles/Vol] 105 mmol/L Normal 98-107 [facility] Comment on above: Performed By: #### P T, DDIM #### [facility] [address] [address] [address] Arden Magallon CO2 [Moles/Vol] 27.9 mmol/L Normal 21.0-32.0 [facility] Comment on above: Performed By: #### P T, DDIM #### [facility] [address] [address] [address] Arden Magallon Creatinine [Mass/Vol] 0.97 mg/dL Normal 0.55-1.02 [facility] Comment on above: Performed By: #### P T, DDIM #### [facility] [address] [address] [address] Arden Magallon EGFR-AF BAHRAINI >60 Normal >=60 [facility] Comment on above: Performed By: #### P T, DDIM #### [facility] [address] [address] [address] Arden Magallon EGFR-NON AF BAHRAINI 54 mL/min/1.73m2 Critically low >=60 [facility] Comment on above: Performed By: #### P T, DDIM #### [facility] [address] [address] [address] Arden Magallon Globulin (S) [Mass/Vol] 3.0 g/dL Normal T [facility] Comment on above: Performed By: #### P T, DDIM #### [facility] [address] [address] [address] Arden Magallon Glucose [Mass/Vol] 105 mg/dL Normal 74-106 [facility] Comment on above: Performed By: #### P T, DDIM #### [facility] [address] [address] [address] Arden Magallon Potassium [Moles/Vol] 4.0 mmol/L Normal 3.5-5.1 [facility] Comment on above: Performed By: #### P T, DDIM #### [facility] [address] [address] [address] Arden Magallon Protein [Mass/Vol] 6.7 g/dL Normal 6.4-8.2 [facility] Comment on above: Performed By: #### P T, DDIM #### [facility] [address] [address] [address] Arden Magallon Sodium [Moles/Vol] 138 mmol/L Normal 136-145 [facility] Comment on above: Performed By: #### P T, DDIM #### [facility] [address] [place] [address] Dr. Arden Magallon Urea nitrogen [Mass/Vol] 18.0 mg/dL Normal 7.0-18.0 [facility] Comment on above: Performed By: #### P T, DDIM #### [facility] [address] [place] [address] Dr. Arden Magallon Urea nitrogen/Creatinine [Mass ratio] 18.6 mg/mg Normal [facility] Comment on above: Performed By: #### P T, DDIM #### [facility] [address] [place] [address] Dr. Arden Magallon PROTIMEon 08-26-2022 INR Coag (PPP) [Relative time] 1.49 {INR} Normal [facility] Comment on above: Performed By: #### B MOLD DESIGN ENGINEER, CMP #### [facility] [address] [place] [address] Dr. Arden Magallon INR GUIDELINES SEE BELOW Normal [facility] Comment on above: Result Comment: THANH RED INR: 2.0 - 3.0 CONDITIONS NOT LISTED BELOW 2.5 - 3.5 FOR PROSTHETIC HEART VALVE REPLACEMENT 2.5 - 3.5 RECURRENT THROMBOSIS Performed By: #### B MOLD DESIGN ENGINEER, CMP #### [facility] [address] [place] [address] Dr. Arden Magallon PT Coag (PPP) [Time] 15.7 s Critically high 9.0-11.6 [facility] Comment on above: Performed By: #### B MOLD DESIGN ENGINEER, CMP #### [facility] [address] [place] [address] Dr. Arden Magallon PTTon 08-26-2022 aPTT Coag (Bld) [Time] 30.2 s Normal 22.3-36.2 [facility] Comment on above: Performed By: #### B MOLD DESIGN ENGINEER, CMP #### [facility] [address] [place] [address] Dr. Arden Magallon TROPONIN, HIGH SENSITIVITYon 08-26-2022 HSTROP 8.3 pg/mL Normal 4.0-51.3 [facility] Comment on above: Result Comment: CUT- OFF POINTS HAVE BEEN ESTABLISHED BASED ON THE FOURTH UNIVERSAL DEFINITIONS OF MYOCARDIAL INFARCTION. THE UPPER REFERENCE LIMIT (URL) OF TROPONIN, DEFINED THE 99TH PERCENTILE OF cTnI DISTRIBUTION IN A REFERENCE POPULATION, HAS BEEN CONFIRMED THE DECISION THRESHOLD FOR [place] DIAGNOSIS. Performed By: #### B MP #### [facility] [address] [address] [address] Arden Magallon XR CHEST 1 Von [...] [place] Date: 2022-08-26 12:29 Normal [facility] BNPon 08-17-2022 Natriuretic peptide B (Bld) [Mass/Vol] 414.0 pg/mL Normal <=1,800.0 [facility] Comment on above: Performed By: #### B MP #### [facility] [address] [place] [address] Dr. Arden Magallon CBC AUTO DIFFon 08-17-2022 BASO # 0.2 103/ul Critically high 0.0-0.1 [facility] Comment on above: Performed By: #### B MP #### [facility] [address] [place] [address] Dr. Arden Magallon Basophils/100 WBC (Bld) 2.8 % Critically high 0.2-2.0 [facility] Comment on above: Performed By: #### B MP #### [facility] [address] [place] [address] Dr. Arden Magallon EO # 0.5 103/ul Normal 0.0-0.7 [facility] Comment on above: Performed By: #### B MP #### [facility] [address] [place] [address] Dr. Arden Magallon Eosinophils/100 WBC (Bld) 7.2 % Critically high 0.9-7.0 [facility] Comment on above: Performed By: #### B MP #### [facility] [address] [place] [address] Dr. Arden Magallon Erythrocyte distribution width (RBC) [Ratio] 14.1 % Normal 11.0-15.0 [facility] Comment on above: Performed By: #### B MP #### [facility] [address] [place] [address] Dr. Arden Magallon Hematocrit (Bld) [Volume fraction] 41.2 % Normal 36.0-48.0 [facility] Comment on above: Performed By: #### B MP #### [facility] [address] [place] [address] Dr. Arden Magallon Hemoglobin (Bld) [Mass/Vol] 13.5 g/dL Normal 12.0-16.0 [facility] Comment on above: Performed By: #### B MP #### [facility] [address] [place] [address] Dr. Arden Magallon IG # 0.01 10e3/ul Normal 0.00-0.03 [facility] Comment on above: Performed By: #### B MP #### [facility] [address] [place] [address] Dr. Arden Magallon IG % 0.1 % Normal 0.0-0.5 [facility] Comment on above: Performed By: #### B MP #### [facility] [address] [place] [address] Dr. Arden Magallon LYMPH # 2.7 103/ul Normal 1.2-3.8 [facility] Comment on above: Performed By: #### B MP #### [facility] [address] [place] [address] Dr. Arden Magallon Lymphocytes/100 WBC (Bld) 37.7 % Normal 20.5-60.0 [facility] Comment on above: Performed By: #### B MP #### [facility] [address] [place] [address] Dr. Arden Magallon MANUAL DIFF REQ NO Normal [facility] Comment on above: Performed By: #### B MP #### [facility] [address] [place] [address] Dr. Arden Magallon MCH (RBC) [Entitic mass] 31.2 pg Normal 26.7-34.0 [facility] Comment on above: Performed By: #### B MP #### [facility] [address] [place] [address] Dr. Arden Magallon MCHC (RBC) [Mass/Vol] 32.8 g/dL Normal 29.9-35.2 [facility] Comment on above: Performed By: #### B MP #### [facility] [address] [place] [address] Dr. Arden Magallon MCV (RBC) [Entitic vol] 95.2 fL Normal 81.0-99.0 [facility] Comment on above: Performed By: #### B MP #### [facility] [address] [place] [address] Dr. Arden Magallon MONO # 0.6 103/ul Normal 0.3-0.8 [facility] Comment on above: Performed By: #### B MP #### [facility] [address] [place] [address] Dr. Arden Magallon Monocytes/100 WBC (Bld) 8.2 % Normal 1.7-12.0 [facility] Comment on above: Performed By: #### B MP #### [facility] [address] [place] [address] Dr. Arden Magallon NEUT # 3.1 103/ul Normal 1.4-6.5 [facility] Comment on above: Performed By: #### B MP #### [facility] [address] [place] [address] Dr. Arden Magallon Neutrophils/100 WBC (Bld) 44.0 % Normal 43.0-75.0 [facility] Comment on above: Performed By: #### B MP #### [facility] [address] [place] [address] Dr. Arden Magallon Platelet mean volume (Bld) [Entitic vol] 11.5 fL Normal 9.5-13.5 [facility] Comment on above: Performed By: #### B MP #### [facility] [address] [address] [address] Arden Magallon PLT 160 103/ul Normal 150-450 [facility] Comment on above: Performed By: #### B MP #### [facility] [address] [place] [address] Dr. Arden Magallon RBC 4.33 106/ul Normal 4.20-5.40 [facility] Comment on above: Performed By: #### B MP #### [facility] [address] [place] [address] Dr. Arden Magallon WBC 7.1 103/ul Normal 4.0-11.0 [facility] Comment on above: Performed By: #### B MP #### [facility] [address] [place] [address] Dr. Arden Magallon D-DIMERon 08-17-2022 D-DIMER 0.36 mg/L FEU Normal <=0.59 [facility] Comment on above: Performed By: #### P T, DDIM #### [facility] [address] [place] [address] Dr. Arden Magallon D-DIMER COMMENTS SEE BELOW Normal [facility] Comment on above: Result Comment: Incr [...] Performed By: #### P T, DDIM #### [facility] [address] [place] [address] Dr. Arden Magallon PROF 14(COMP METB)on 022 Albumin [Mass/Vol] 3.7 g/dL Normal 3.4-5.0 [facility] Comment on above: Performed By: #### C BC #### [facility] [address] [place] [address] Dr. Arden Magallon Albumin/Globulin [Mass ratio] 1.1 {ratio} Normal [facility] Comment on above: Performed By: #### C BC #### [facility] [address] [place] [address] Dr. Arden Magallon ALP [Catalytic activity/Vol] 65 U/L Normal 46-116 [facility] Comment on above: Performed By: #### C BC #### [facility] [address] [place] [address] Dr. Arden Magallon ALT [Catalytic activity/Vol] 15 U/L Normal 14-59 [facility] Comment on above: Performed By: #### C BC #### [facility] [address] [place] [address] Dr. Arden Magallon Anion gap [Moles/Vol] 6.1 mmol/L Normal [facility] Comment on above: Performed By: #### C BC #### [facility] [address] [place] [address] Dr. Arden Magallon AST [Catalytic activity/Vol] 11 U/L Critically low 15-37 [facility] Comment on above: Performed By: #### C BC #### [facility] [address] [place] [address] Dr. Arden Magallon Bilirubin [Mass/Vol] 0.4 mg/dL Normal 0.2-1.0 [facility] Comment on above: Performed By: #### C BC #### [facility] [address] [place] [address] Dr. Arden Magallon Calcium [Mass/Vol] 9.6 mg/dL Normal 8.5-10.1 [facility] Comment on above: Performed By: #### C BC #### [facility] [address] [address] [address] Adren Magallon Chloride [Moles/Vol] 106 mmol/L Normal 98-107 [facility] Comment on above: Performed By: #### C BC #### [facility] [address] [place] [address] Dr. Arden Magallon CO2 [Moles/Vol] 29.5 mmol/L Normal 21.0-32.0 [facility] Comment on above: Performed By: #### C BC #### [facility] [address] [place] [address] Dr. Arden Magallon Creatinine [Mass/Vol] 1.02 mg/dL Normal 0.55-1.02 [facility] Comment on above: Performed By: #### C BC #### [facility] [address] [place] [address] Dr. Arden Magallon EGFR-AF BAHRAINI >60 Normal >=60 [facility] Comment on above: Performed By: #### C BC #### [facility] [address] [place] [address] Dr. Arden Magallon EGFR-NON AF BAHRAINI 51 mL/min/1.73m2 Critically low >=60 [facility] Comment on above: Performed By: #### C BC #### [facility] [address] [place] [address] Dr. Arden Magallon Globulin (S) [Mass/Vol] 3.3 g/dL Normal [facility] Comment on above: Performed By: #### C BC #### [facility] [address] [place] [address] Dr. Adren Magallon Glucose [Mass/Vol] 143 mg/dL Critically high 74-106 [facility] Comment on above: Performed By: #### C BC #### [facility] [address] [place] [address] Dr. Arden Magallon Potassium [Moles/Vol] 3.6 mmol/L Normal 3.5-5.1 [facility] Comment on above: Performed By: #### C BC #### [facility] [address] [place] [address] Dr. Arden Magallon Protein [Mass/Vol] 7.0 g/dL Normal 6.4-8.2 [facility] Comment on above: Performed By: #### C BC #### [facility] [address] [place] [address] Dr. Arden Magallon Sodium [Moles/Vol] 138 mmol/L Normal 136-145 [facility] Comment on above: Performed By: #### C BC #### [facility] [address] [place] [address] Dr. Arden Magallon Urea nitrogen [Mass/Vol] 21.0 mg/dL Critically high 7.0-18.0 [facility] Comment on above: Performed By: #### C BC #### [facility] [address] [place] [address] Dr. Arden Magallon Urea nitrogen/Creatinine [Mass ratio] 20.6 mg/mg Normal [facility] Comment on above: Performed By: #### C BC #### [facility] [address] [place] [address] Dr. Arden Magallon PROTIMEon 08-17-2022 INR Coag (PPP) [Relative time] 1.27 {INR} Normal [facility] Comment on above: Performed By: #### P T, DDIM #### [facility] [address] [place] [address] Dr. Arden Magallon INR GUIDELINES SEE BELOW Normal [facility] Comment on above: Result Comment: THANH RED INR: 2.0 - 3.0 CONDITIONS NOT LISTED BELOW 2.5 - 3.5 FOR PROSTHETIC HEART VALVE REPLACEMENT 2.5 - 3.5 RECURRENT THROMBOSIS Performed By: #### P T, DDIM #### [facility] [address] [place] [address] Dr. Arden Magallon PT Coag (PPP) [Time] 13.5 s Critically high 9.0-11.6 [facility] Comment on above: Performed By: #### P T, DDIM #### [facility] [address] [place] [address] Dr. Arden Magallon TROPONIN, HIGH SENSITIVITYon 08-17-2022 HSTROP 8.3 pg/mL Normal 4.0-51.3 [facility] Comment on above: Result Comment: CUT- OFF POINTS HAVE BEEN ESTABLISHED BASED ON THE FOURTH UNIVERSAL DEFINITIONS OF MYOCARDIAL INFARCTION. THE UPPER REFERENCE LIMIT (URL) OF TROPONIN, DEFINED THE 99TH PERCENTILE OF cTnI DISTRIBUTION IN A REFERENCE POPULATION, HAS BEEN CONFIRMED THE DECISION THRESHOLD FOR MA DIAGNOSIS. Performed By: #### B MP #### [facility] [address] [address] [address] Arden Magallon XR CHEST 1 Von [...] HARJINDER RAMIREZ Date: 2022-08-17 13:57 Normal [facility] ER URINE PROFILEon 2 Bilirubin Ql (U) Negative Normal NEGATIVE [facility] Comment on above: Performed By: #### P T, DDIM #### [facility] [address] [address] [address] Arden Magallon Clarity (U) CLEAR Normal CLEAR [facility] Comment on above: Performed By: #### P T, DDIM #### [facility] [address] [address] [address] Arden Magallon Color (U) LT. YELLOW Normal YELLOW [facility] Comment on above: Performed By: #### P T, DDIM #### [facility] [address] [place] [address] Dr. Arden Magallon ERUAHD A micrscopic examination will be performed if indicated. Normal [facility] Comment on above: Performed By: #### P T, DDIM #### [facility] [address] [address] [address] Arden Magallon Glucose Ql (U) Negative Normal NEGATIVE [facility] Comment on above: Performed By: #### P T, DDIM #### [facility] [address] [address] [address] Arden Magallon Hemoglobin Ql (U) SMALL Abnormal NEGATIVE [facility] Comment on above: Performed By: #### P T, DDIM #### [facility] [address] [address] [address] Arden Magallon Ketones Ql (U) Negative Normal NEGATIVE [facility] Comment on above: Performed By: #### P T, DDIM #### [facility] [address] [place] [address] Dr. Arden Magallon LEUKOCYTES TRACE Abnormal NEGATIVE [facility] Comment on above: Performed By: #### P T, DDIM #### [facility] [address] [address] [address] Arden Magallon Nitrite Ql (U) Negative Normal NEGATIVE [facility] Comment on above: Performed By: #### P T, DDIM #### [facility] [address] [place] [address] Dr. Arden Magallon pH (U) 7.0 [pH] Normal 5-9 [facility] Comment on above: Performed By: #### P T, DDIM #### [facility] [address] [address] [address] Arden Magallon SPEC GRAVITY 1.010 Normal 1.005-<=1.0 25 [facility] Comment on above: Performed By: #### P T, DDIM #### [facility] [address] [address] [address] Arden Magallon UA PROTEIN Negative Normal NEGATIVE/ TRACE [facility] Comment on above: Performed By: #### P T, DDIM #### [facility] [address] [address] [address] Arden Magallon UR MICRO IND INDICATED Normal [facility] Comment on above: Performed By: #### P T, DDIM #### [facility] [address] [place] [address] Dr. Arden Magallon Urobilinogen Qn (U) 0.2 {Myranda'U}/dL Normal 0.2 - 1. 0 [facility] Comment on above: Performed By: #### P T, DDIM #### [facility] [address] [place] [address] Dr. Arden Magallon URINE MICROSCOPIC ONLYon BACTERIA NONE SEEN Normal NONE SEEN [facility] Comment on above: Performed By: #### P T, DDIM #### [facility] [address] [place] [address] Dr. Arden Magallon Bacteria identified Cx Nom (U) NOT INDICATED Normal [facility] Comment on above: Performed By: #### P T, DDIM #### [facility] [address] [place] [address] Dr. Arden Magallon CAST NONE SEEN Normal NONE SEEN [facility] Comment on above: Performed By: #### P T, DDIM #### [facility] [address] [place] [address] Dr. Arden Magallon Crystals LM Nom (Urine sed) NONE SEEN Normal NONE SEEN [facility] Comment on above: Performed By: #### P T, DDIM #### [facility] [address] [place] [address] Dr. Arden Magallon Epithelial cells LM Ql (Urine sed) RARE Normal NONE SEEN /RARE [facility] Comment on above: Performed By: #### P T, DDIM #### [facility] [address] [place] [address] Dr. Arden Magallon MUCOUS NONE SEEN Normal NONE SEEN [facility] Comment on above: Performed By: #### P T, DDIM #### [facility] [address] [place] [address] Dr. Arden Magallon RBC 0-2 Normal 0-2 [facility] Comment on above: Performed By: #### P T, DDIM #### [facility] [address] [place] [address] Dr. Arden Magallon WBC 0-2 Abnormal NONE SEEN [facility] Comment on above: Performed By: #### P T, DDIM #### [facility] [address] [place] [address] Dr. Arden Magallon XR CHEST 1 Von [...] PANCHO ELY Date: 2022-04-15 22:19 Normal [facility] BNPon 04-15-2022 Natriuretic peptide B (Bld) [Mass/Vol] 318.0 pg/mL Normal <=1,800.0 [facility] Comment on above: Performed By: #### B MOLD DESIGN ENGINEER, CMP #### [facility] [address] [place] [address] Dr. Arden Magallon CBC AUTO DIFFon 04-15-2022 BASO # 0.2 103/ul Critically high 0.0-0.1 [facility] Comment on above: Performed By: #### P T, DDIM #### [facility] [address] [place] [address] Dr. Arden Magallon Basophils/100 WBC (Bld) 2.2 % Critically high 0.2-2.0 [facility] Comment on above: Performed By: #### P T, DDIM #### [facility] [address] [place] [address] Dr. Arden Magallon EO # 0.5 103/ul Normal 0.0-0.7 [facility] Comment on above: Performed By: #### P T, DDIM #### [facility] [address] [place] [address] Dr. Arden Magallon Eosinophils/100 WBC (Bld) 6.2 % Normal 0.9-7.0 [facility] Comment on above: Performed By: #### P T, DDIM #### [facility] [address] [place] [address] Dr. Arden Magallon Erythrocyte distribution width (RBC) [Ratio] 14.0 % Normal 11.0-15.0 [facility] Comment on above: Performed By: #### P T, DDIM #### [facility] [address] [place] [address] Dr. Arden Magallon Hematocrit (Bld) [Volume fraction] 41.6 % Normal 36.0-48.0 [facility] Comment on above: Performed By: #### P T, DDIM #### [facility] [address] [place] [address] Dr. Arden Magallon Hemoglobin (Bld) [Mass/Vol] 13.8 g/dL Normal 12.0-16.0 [facility] Comment on above: Performed By: #### P T, DDIM #### [facility] [address] [place] [address] Dr. Arden Magallon IG # 0.01 10e3/ul Normal 0.00-0.03 [facility] Comment on above: Performed By: #### P T, DDIM #### [facility] [address] [place] [address] Dr. Arden Magallon IG % 0.1 % Normal 0.0-0.5 [facility] Comment on above: Performed By: #### P T, DDIM #### [facility] [address] [place] [address] Dr. Arden Magallon LYMPH # 3.2 103/ul Normal 1.2-3.8 [facility] Comment on above: Performed By: #### P T, DDIM #### [facility] [address] [place] [address] Dr. Arden Magallon Lymphocytes/100 WBC (Bld) 37.2 % Normal 20.5-60.0 [facility] Comment on above: Performed By: #### P T, DDIM #### [facility] [address] [place] [address] Dr. Arden Magallon MANUAL DIFF REQ NO Normal [facility] Comment on above: Performed By: #### P T, DDIM #### [facility] [address] [place] [address] Dr. Arden Magallon MCH (RBC) [Entitic mass] 31.0 pg Normal 26.7-34.0 [facility] Comment on above: Performed By: #### P T, DDIM #### [facility] [address] [place] [address] Dr. Arden Magallon MCHC (RBC) [Mass/Vol] 33.2 g/dL Normal 29.9-35.2 [facility] Comment on above: Performed By: #### P T, DDIM #### [facility] [address] [place] [address] Dr. Arden Magallon MCV (RBC) [Entitic vol] 93.5 fL Normal 81.0-99.0 [facility] Comment on above: Performed By: #### P T, DDIM #### [facility] [address] [place] [address] Dr. Arden Magallon MONO # 0.8 103/ul Normal 0.3-0.8 [facility] Comment on above: Performed By: #### P T, DDIM #### [facility] [address] [place] [address] Dr. Arden Magallon Monocytes/100 WBC (Bld) 9.4 % Normal 1.7-12.0 [facility] Comment on above: Performed By: #### P T, DDIM #### [facility] [address] [place] [address] Dr. Arden Magallon NEUT # 3.9 103/ul Normal 1.4-6.5 [facility] Comment on above: Performed By: #### P T, DDIM #### [facility] [address] [place] [address] Dr. Arden Magallon Neutrophils/100 WBC (Bld) 44.9 % Normal 43.0-75.0 [facility] Comment on above: Performed By: #### P T, DDIM #### [facility] [address] [address] [address] Arden Magallon Platelet mean volume (Bld) [Entitic vol] 10.7 fL Normal 9.5-13.5 [facility] Comment on above: Performed By: #### P T, DDIM #### [facility] [address] [address] [address] Arden Magallon PLT 158 103/ul Normal 150-450 [facility] Comment on above: Performed By: #### P T, DDIM #### [facility] [address] [place] [address] Dr. Arden Magallon RBC 4.45 106/ul Normal 4.20-5.40 [facility] Comment on above: Performed By: #### P T, DDIM #### [facility] [address] [place] [address] Dr. Arden Magallon WBC 8.7 103/ul Normal 4.0-11.0 [facility] Comment on above: Performed By: #### P T, DDIM #### [facility] [address] [place] [address] Dr. Arden Magallon PROF 14(COMP METB)on 022 Albumin [Mass/Vol] 4.2 g/dL Normal 3.4-5.0 [facility] Comment on above: Performed By: #### B MOLD DESIGN ENGINEER, CMP #### [facility] [address] [place] [address] Dr. Arden Magallon Albumin/Globulin [Mass ratio] 1.2 {ratio} Normal [facility] Comment on above: Performed By: #### B MOLD DESIGN ENGINEER, CMP #### [facility] [address] [place] [address] Dr. Arden Magallon ALP [Catalytic activity/Vol] 75 U/L Normal 46-116 [facility] Comment on above: Performed By: #### B MOLD DESIGN ENGINEER, CMP #### [facility] [address] [place] [address] Dr. Arden Magallon ALT [Catalytic activity/Vol] 31 U/L Normal 14-59 [facility] Comment on above: Performed By: #### B MOLD DESIGN ENGINEER, CMP #### [facility] [address] [address] [address] Arden Magallon Anion gap [Moles/Vol] 11.6 mmol/L Normal [facility] Comment on above: Performed By: #### B MOLD DESIGN ENGINEER, CMP #### [facility] [address] [address] [address] Arden Magallon AST [Catalytic activity/Vol] 16 U/L Normal 15-37 [facility] Comment on above: Performed By: #### B MOLD DESIGN ENGINEER, CMP #### [facility] [address] [address] [address] Arden Magallon Bilirubin [Mass/Vol] 0.4 mg/dL Normal 0.2-1.0 [facility] Comment on above: Performed By: #### B MOLD DESIGN ENGINEER, CMP #### [facility] [address] [address] [address] Arden Magallon Calcium [Mass/Vol] 9.7 mg/dL Normal 8.5-10.1 [facility] Comment on above: Performed By: #### B MOLD DESIGN ENGINEER, CMP #### [facility] [address] [address] [address] Arden Magallon Chloride [Moles/Vol] 106 mmol/L Normal 98-107 [facility] Comment on above: Performed By: #### B MOLD DESIGN ENGINEER, CMP #### [facility] [address] [address] [address] Arden Magallon CO2 [Moles/Vol] 25.2 mmol/L Normal 21.0-32.0 [facility] Comment on above: Performed By: #### B MOLD DESIGN ENGINEER, CMP #### [facility] [address] [address] [address] Arden Magallno Creatinine [Mass/Vol] 1.06 mg/dL Critically high 0.55-1.02 [facility] Comment on above: Performed By: #### B MOLD DESIGN ENGINEER, CMP #### [facility] [address] [address] [address] Arden Magallon EGFR-AF BAHRAINI 60 mL/min/1.73m2 Normal >=60 [facility] Comment on above: Performed By: #### B MOLD DESIGN ENGINEER, CMP #### [facility] [address] [address] [address] Arden Magallon EGFR-NON AF BAHRAINI 49 mL/min/1.73m2 Critically low >=60 [facility] Comment on above: Performed By: #### B MOLD DESIGN ENGINEER, CMP #### [facility] [address] [address] [address] Arden Magallon Globulin (S) [Mass/Vol] 3.4 g/dL Normal [facility] Comment on above: Performed By: #### B MOLD DESIGN ENGINEER, CMP #### [facility] [address] [address] [address] Arden Magallon Glucose [Mass/Vol] 123 mg/dL Critically high 74-106 [facility] Comment on above: Performed By: #### B MOLD DESIGN ENGINEER, CMP #### [facility] [address] [address] [address] Arden Magallon Potassium [Moles/Vol] 3.8 mmol/L Normal 3.5-5.1 [facility] Comment on above: Performed By: #### B MOLD DESIGN ENGINEER, CMP #### [facility] [address] [place] [address] Dr. Arden Magallon Protein [Mass/Vol] 7.6 g/dL Normal 6.4-8.2 [facility] Comment on above: Performed By: #### B MOLD DESIGN ENGINEER, CMP #### [facility] [address] [place] [address] Dr. Arden Magallon Sodium [Moles/Vol] 139 mmol/L Normal 136-145 [facility] Comment on above: Performed By: #### B MOLD DESIGN ENGINEER, CMP #### [facility] [address] [place] [address] Dr. Arden Magallon Urea nitrogen [Mass/Vol] 22.0 mg/dL Critically high 7.0-18.0 [facility] Comment on above: Performed By: #### B MOLD DESIGN ENGINEER, CMP #### [facility] [address] [place] [address] Dr. Arden Magallon Urea nitrogen/Creatinine [Mass ratio] 20.8 mg/mg Normal [facility] Comment on above: Performed By: #### B MOLD DESIGN ENGINEER, CMP #### [facility] [address] [place] [address] Dr. Arden Magallon ECHOCARDIO M/2D COMPLETEon 0 04-06-2022 ECHOCARDIO M/2D COMPLETE Patient: ZORAIDA BARRIOS Exam Date: 04/06/2022 : 1935 Gender:F Ordering : SUSAN LONG Admission #: [id number] Family : Order #: [id number] CLICK HERE TO VIEW EXAM ECHOCARDIOGRAM REPORT [...] Area(A4C): 16.40 cm2 Left Atrium Systolic Volume(A2C): 23983 mm3 Left Atrium Systolic Volume(A4C): 81109 mm3 Mitral Valve MV E to A Ratio: 0.60 Deceleration Ray: 2080 mm/s2 Mitral Valve A-Wave Peak Velocity: 103.00 cm/s Mitral Valve E-Wave Peak Velocity: 62.20 cm/s Right Ventricle RV Internal Diastolic Dimension: 3.04 cm Aorta AO Root Diam: 2.90 cm Aortic Valve AoV Area (Peak Bucky): 1.86 cm2 Deceleration Ray: 1080 mm/s2 Pressure Half-Time: 976 ms Peak [...] Grubbs M.D. on 04/06/2022 at 16:27 Normal [facility] US KIDNEYSon 04-06-2022 US KIDNEYS EXAMINATION: [...] by: BERTHA SOLIZ Date: 2022-04-06 16:45 Normal [facility] BNPon 03-17-2022 Natriuretic peptide B (Bld) [Mass/Vol] 193.0 pg/mL Normal <=1,800.0 [facility] Comment on above: Performed By: #### B MOLD DESIGN ENGINEER, CMP #### [facility] [address] [place] [address] Dr. Arden Magallon CBC AUTO DIFFon 03-17-2022 BASO # 0.1 103/ul Normal 0.0-0.1 [facility] Comment on above: Performed By: #### B MOLD DESIGN ENGINEER, CMP #### [facility] [address] [place] [address] Dr. Arden Magallon Basophils/100 WBC (Bld) 0.9 % Normal 0.2-2.0 [facility] Comment on above: Performed By: #### B MOLD DESIGN ENGINEER, CMP #### [facility] [address] [place] [address] Dr. Arden Magallon EO # 0.4 103/ul Normal 0.0-0.7 [facility] Comment on above: Performed By: #### B MOLD DESIGN ENGINEER, CMP #### [facility] [address] [place] [address] Dr. Arden Magallon Eosinophils/100 WBC (Bld) 4.7 % Normal 0.9-7.0 [facility] Comment on above: Performed By: #### B MOLD DESIGN ENGINEER, CMP #### [facility] [address] [place] [address] Dr. Arden Magallon Erythrocyte distribution width (RBC) [Ratio] 14.2 % Normal 11.0-15.0 [facility] Comment on above: Performed By: #### B MOLD DESIGN ENGINEER, CMP #### [facility] [address] [place] [address] Dr. Arden Magallon Hematocrit (Bld) [Volume fraction] 43.1 % Normal 36.0-48.0 [facility] Comment on above: Performed By: #### B MOLD DESIGN ENGINEER, CMP #### [facility] [address] [place] [address] Dr. Arden Magallon Hemoglobin (Bld) [Mass/Vol] 14.1 g/dL Normal 12.0-16.0 [facility] Comment on above: Performed By: #### B MOLD DESIGN ENGINEER, CMP #### [facility] [address] [place] [address] Dr. Arden Magallon IG # 0.04 10e3/ul Critically high 0.00-0.03 [facility] Comment on above: Performed By: #### B MOLD DESIGN ENGINEER, CMP #### [facility] [address] [place] [address] Dr. Arden Magallon IG % 0.5 % Normal 0.0-0.5 [facility] Comment on above: Performed By: #### B MOLD DESIGN ENGINEER, CMP #### [facility] [address] [place] [address] Dr. Arden Magallon LYMPH # 3.0 103/ul Normal 1.2-3.8 [facility] Comment on above: Performed By: #### B MOLD DESIGN ENGINEER, CMP #### [facility] [address] [place] [address] Dr. Arden Magallon Lymphocytes/100 WBC (Bld) 34.2 % Normal 20.5-60.0 [facility] Comment on above: Performed By: #### B MOLD DESIGN ENGINEER, CMP #### [facility] [address] [place] [address] Dr. Arden Magallon MANUAL DIFF REQ NO Normal [facility] Comment on above: Performed By: #### B MOLD DESIGN ENGINEER, CMP #### [facility] [address] [place] [address] Dr. Arden Magallon MCH (RBC) [Entitic mass] 31.3 pg Normal 26.7-34.0 [facility] Comment on above: Performed By: #### B MOLD DESIGN ENGINEER, CMP #### [facility] [address] [place] [address] Dr. Arden Magallon MCHC (RBC) [Mass/Vol] 32.7 g/dL Normal 29.9-35.2 [facility] Comment on above: Performed By: #### B MOLD DESIGN ENGINEER, CMP #### [facility] [address] [place] [address] Dr. Arden Magallon MCV (RBC) [Entitic vol] 95.8 fL Normal 81.0-99.0 [facility] Comment on above: Performed By: #### B MOLD DESIGN ENGINEER, CMP #### [facility] [address] [place] [address] Dr. Arden Magallon MONO # 1.2 103/ul Critically high 0.3-0.8 [facility] Comment on above: Performed By: #### B MOLD DESIGN ENGINEER, CMP #### [facility] [address] [place] [address] Dr. Arden Magallon Monocytes/100 WBC (Bld) 13.5 % Critically high 1.7-12. 0 [facility] Comment on above: Performed By: #### B MOLD DESIGN ENGINEER, CMP #### [facility] [address] [place] [address] Dr. Arden Magallon NEUT # 4.1 103/ul Normal 1.4-6.5 [facility] Comment on above: Performed By: #### B MOLD DESIGN ENGINEER, CMP #### [facility] [address] [place] [address] Dr. Arden Magallon Neutrophils/100 WBC (Bld) 46.2 % Normal 43.0-75.0 [facility] Comment on above: Performed By: #### B MOLD DESIGN ENGINEER, CMP #### [facility] [address] [place] [address] Dr. Arden Magallon Platelet mean volume (Bld) [Entitic vol] 11.2 fL Normal 9.5-13.5 [facility] Comment on above: Performed By: #### B MOLD DESIGN ENGINEER, CMP #### [facility] [address] [place] [address] Dr. Arden Magallon PLT 160 103/ul Normal 150-450 [facility] Comment on above: Performed By: #### B MOLD DESIGN ENGINEER, CMP #### [facility] [address] [place] [address] Dr. Arden Magallon RBC 4.50 106/ul Normal 4.20-5.40 [facility] Comment on above: Performed By: #### B MOLD DESIGN ENGINEER, CMP #### [facility] [address] [place] [address] Dr. Arden Magallon WBC 8.9 103/ul Normal 4.0-11.0 [facility] Comment on above: Performed By: #### B MOLD DESIGN ENGINEER, CMP #### [facility] [address] [place] [address] Dr. Arden Magallon PROF 14(COMP METB)on 022 Albumin [Mass/Vol] 4.0 g/dL Normal 3.4-5.0 [facility] Comment on above: Performed By: #### B MOLD DESIGN ENGINEER, CMP #### [facility] [address] [place] [address] Dr. Arden Magallon Albumin/Globulin [Mass ratio] 1.2 {ratio} Normal [facility] Comment on above: Performed By: #### B MOLD DESIGN ENGINEER, CMP #### [facility] [address] [place] [address] Dr. Arden Magallon ALP [Catalytic activity/Vol] 74 U/L Normal 46-116 [facility] Comment on above: Performed By: #### B MOLD DESIGN ENGINEER, CMP #### [facility] [address] [place] [address] Dr. Arden Magallon ALT [Catalytic activity/Vol] 28 U/L Normal 14-59 [facility] Comment on above: Performed By: #### B MOLD DESIGN ENGINEER, CMP #### [facility] [address] [place] [address] Dr. Arden Magallon Anion gap [Moles/Vol] 11.9 mmol/L Normal [facility] Comment on above: Performed By: #### B MOLD DESIGN ENGINEER, CMP #### [facility] [address] [place] [address] Dr. Arden Magallon AST [Catalytic activity/Vol] 18 U/L Normal 15-37 [facility] Comment on above: Performed By: #### B MOLD DESIGN ENGINEER, CMP #### [facility] [address] [place] [address] Dr. Arden Magallon Bilirubin [Mass/Vol] 0.4 mg/dL Normal 0.2-1.0 [facility] Comment on above: Performed By: #### B MOLD DESIGN ENGINEER, CMP #### [facility] [address] [place] [address] Dr. Arden Magallon Calcium [Mass/Vol] 9.7 mg/dL Normal 8.5-10.1 [facility] Comment on above: Performed By: #### B MOLD DESIGN ENGINEER, CMP #### [facility] [address] [place] [address] Dr. Arden Magallon Chloride [Moles/Vol] 105 mmol/L Normal 98-107 [facility] Comment on above: Performed By: #### B MOLD DESIGN ENGINEER, CMP #### [facility] [address] [place] [address] Dr. Arden Magallon CO2 [Moles/Vol] 26.3 mmol/L Normal 21.0-32.0 [facility] Comment on above: Performed By: #### B MOLD DESIGN ENGINEER, CMP #### [facility] [address] [place] [address] Dr. Arden Magallon Creatinine [Mass/Vol] 1.31 mg/dL Critically high 0.55-1.02 [facility] Comment on above: Performed By: #### B MOLD DESIGN ENGINEER, CMP #### [facility] [address] [place] [address] Dr. Arden Magallon EGFR-AF BAHRAINI 47 mL/min/1.73m2 Critically low >=60 [facility] Comment on above: Performed By: #### B MOLD DESIGN ENGINEER, CMP #### [facility] [address] [place] [address] Dr. Arden Magallon EGFR-NON AF BAHRAINI 38 mL/min/1.73m2 Critically low >=60 [facility] Comment on above: Performed By: #### B MOLD DESIGN ENGINEER, CMP #### [facility] [address] [address] [address] Arden Magallon Globulin (S) [Mass/Vol] 3.3 g/dL Normal [facility] Comment on above: Performed By: #### B MOLD DESIGN ENGINEER, CMP #### [facility] [address] [place] [address] Dr. Arden Magallon Glucose [Mass/Vol] 111 mg/dL Critically high 74-106 [facility] Comment on above: Performed By: #### B MOLD DESIGN ENGINEER, CMP #### [facility] [address] [place] [address] Dr. Arden Magallon Potassium [Moles/Vol] 4.2 mmol/L Normal 3.5-5.1 [facility] Comment on above: Performed By: #### B MOLD DESIGN ENGINEER, CMP #### [facility] [address] [place] [address] Dr. Arden Magallon Protein [Mass/Vol] 7.3 g/dL Normal 6.4-8.2 [facility] Comment on above: Performed By: #### B MOLD DESIGN ENGINEER, CMP #### [facility] [address] [place] [address] Dr. Arden Magallon Sodium [Moles/Vol] 139 mmol/L Normal 136-145 [facility] Comment on above: Performed By: #### B MOLD DESIGN ENGINEER, CMP #### [facility] [address] [place] [address] Dr. Arden Magallon Urea nitrogen [Mass/Vol] 24.0 mg/dL Critically high 7.0-18.0 [facility] Comment on above: Performed By: #### B MOLD DESIGN ENGINEER, CMP #### [facility] [address] [place] [address] Dr. Arden Magallon Urea nitrogen/Creatinine [Mass ratio] 18.3 mg/mg Normal [facility] Comment on above: Performed By: #### B MOLD DESIGN ENGINEER, CMP #### [facility] [address] [place] [address] Dr. Arden Magallon TROPONIN, HIGH SENSITIVITYon 03-17-2022 HSTROP 8.6 pg/mL Normal 4.0-51.3 [facility] Comment on above: Result Comment: CUT- OFF POINTS HAVE BEEN ESTABLISHED BASED ON THE FOURTH UNIVERSAL DEFINITIONS OF MYOCARDIAL INFARCTION. THE UPPER REFERENCE LIMIT (URL) OF TROPONIN, DEFINED THE 99TH PERCENTILE OF cTnI DISTRIBUTION IN A REFERENCE POPULATION, HAS BEEN CONFIRMED THE DECISION THRESHOLD FOR MA DIAGNOSIS. Performed By: #### C BC #### [facility] [address] [place] [address] Dr. Arden Magallon Coding Summary.on 03-04-2022 Coding Summary. CD:[id number] Gh 0bWw+PGhlYWQ+QQ6QRZDwD 72clCEanM7QQ6cFTE1QTEM JDCVEGJ8EKS2zzKE6XNfzT 2VybiAv WgyevBZpGO19LQa7NZZ8kM etWXkxgH4vhEXcA8n5DsLu BT24uV66BMskKHWoMfY7Uu ZpbjsgbWFy K2niOfTwoSVtEvv+PHRhYm xlIHdpZHRoPScxMDAlJyBz gIsfBP4rWx1gWMSzPOMrjB xhcHNlOiBj e4moPYPcBXjvGC8nzBixJ5 CrxNX2CVLbj7h5Kz05bOE+ AATjJSK8aEjwDOgtv539Sh Ich1imTHW0 hATmVJuvJJR2J60ad5X4LF OzDZBwOZV9iDY1eP8wrXlt rjieI8ObhKZhSsL2NFH8qX KfkT9uqCpr lvbmlS9nTwm+C93UIO0AES YMDV8RDqn1S4OqDklwrQC+ WM25HFWlWH06yLRguCXcd4 inzEf4XlSv ISVwCZL0bYaiJJtie5QzWX OsO84wkSKia1Z5WIVxeTlb gOJiQsRntHU7tF2nTPrhin jxl5riyukg Puxkm4rhgx02qT41E20eOV pdHKWyFUF8CQHuLZRroXgx oe0ftT4iKq9+DBhtg3aos9 rmfFl2EgNi DCPebvOskKrrAMS6h2IxVu 67E8CicPamm4SpDhe8wm09 yEOer9O9nPU4SPcpXBBylI 0aTJnuYeZ1 MQWoElShnZ19hAYvFHafIx 6jfSjhgVbjQP9sYEPaujtx ISZlzC8nDTKvnPZutBqvBQ 4wNTBpbjtm m697KtWgJCI6KUZonNPsM4 MeeT7wQuSaLXMyPOQtQ1Ii yOEnFMcaN795JMuvSzG8MH QvhwKkY1Gi PGXypDmfKnF0j2U5Rm2Le7 NwvccjAQF3BYtwPDD3YdL3 PoGaIhV0M7DgLsv9XZXytN ljFK7vR9Pv AAWuouduffreeKL1HJHtGS BemQ29yAXxPGexAq1an3N0 d192BQKlAEFbtM58Ku7uaV ogMTBwdCBU wK4qkbkcs8eypzrrYjYfKF BsVEo4LKi0KPQcsAhzAqUf EOD8CiE9EFZ2jOAyhS6utD gwyrdmeI5s Oyc+M84fdD8wHCK4XXL8rc wnYMPkihJhMM18UV99A3Wx PjwvdGFibGU+PGRpdiBzdH guVB0rPiQr p4ans0BwOBzfO7UyRAGjKQ xbNlh8CAPuWZY2oNU7dF6g YZLnNKhqi6K6nZU6V3Bjwv Arht7vl5ct AEZtBFjfX89fyXEbk8P6CM FccRP5UIUteLymCrKqnB53 Oyc+YFYinJovh6DoHixou4 fts4rmmKl9 ZvBeAVMbxoIaoYxwUON9c9 IwBy65X78dSRrrXKGbHOSz NBEgYFBqcIjrqa0qvP7wOl 8+PGNvbCB3 qAG8vL2mLQBlPnF1OKgjH0 79DgYkmSRhUyctr2zqv8pn wCv4CcChJGHylaCggYnsUN D8t4EuGe28 Z78aNXhmGSUhGKKuHPOePK RhkJtkww1feT2rGq5+PC9j z0skby23yU94qNG+PHRkIH F9jHbwKTio TZFgjF8cQZeuZrK5VYCnKn EszY19rPBoIYsmKx4paFvt pKogWQ1eAMJsnbren418Jd Vbq8inKVGo gQMcPDzeTLG9S36gs1F6LX NhANWsTFO2sWI5hS5fbQmd bjogbGVmdDsgdmVydGljYW bgIFttQ120 IHRvcDsnPlBhdGllbnQgTm PuCNd7A6CjOny5BOWonPbz ND1leUYoEFhsGh1oeWffsX ppRX4hBWHu ajgoo875AqNbx9oeOYJpmE MpTHqjNXL4X03jn8O7LQIw BFExKAS8aND8fP2dfCfknf ogbGVmdDsg asRjqCdySBrmUIoqQ236LS RvcDsnPkJpcnRoIERhdGU6 KY92ZM30yPIwm5L2yJD5I8 BhZGRpbmct kdpesXX1QAWcSYJauF19Kb 4yxDzcIt0nZJQcECT7NWTd aFJoN4MtiG7qTuVsCCZeHI XeE3MqqZIl ZOtsO164ZZkxUrH6WVPojy WpJ0XwOFYqwOstQnY5o3C6 Qi3TD7I9YI33UR68cHVcz1 J4qSL2Y5Mv RLVlwabicyvgmDS8FYBhRH ThpZ34Ff2luJbiDk1qEXXn PTB1SGIkyIFxY4CzcI8gUu AjMDAwMDAw A7UlhMLsXKivL743WOtfFt C0EOAxauBgV3BnCVMerVjk GhG5m2I2Lg6IITg1UK42VI 28kNWyq4W2 qIR2K2OjEBFipygrivtkzZ Y0BSBxMRJeyD87Yt0sfJcj Hs2oXQPnXHL0RJGbcRRsT1 ElsU0oWrOv JQDqAVWkH7TeeEWiHTjfD5 37SAkbCrF9VBXqdsZlI2Kv WSWomKwzVpQ3g1E7Bf1FFT IjPI65RHT1 bDP5PF24DI44U1JtKrihyU FibGU+PHRhYmxlIHdpZHRo DPumNNReBeQtxJotZU6vHv 9yZGVyLWNv fCigmDYnIrCsc8zvCCUgCB tdDP8xvZfdL7DxcIO2YXCb h8n9Rt69L51wC9MnaSG+PG InhMN4kBC7 zM1vCzTnMfJ2WCfcH409Gu WtbCJlFgtpr0pni9phgJa6 OnV8UOVbihKzhBmpNDA0h9 KuTp22I26u IHdpZHRoPSIxNSUiIHZhbG nbqo9coC7iHf2+PGNvbCB3 qAJ5sL7bChRvSbO5JTiqI5 49InRvcCIv Itbse0ffc3ezqEd7TxKbRD MngqOrqGraWAF6y5FcZe85 Q5WtaZrxm4TwDke5bw91uE Xvl0X3yNY6 D4WyEFTjjlbrwAPzgRulYQ 2vEOGidjbwSMZnpA1aNSGl J7g4YiThYlB8IBxmV8Sfxv N3TNMhdJHr OKyhAHR8U33nf4E2DHWyLQ RfGVP2cSV2jI0naNyfalky bGVmdDsgdmVydGljYWwtYW tnA175UEDh rLfhZZUruG0hLUAcaPXxpW wzYH3cMJVyknbhSqCLWZWa LCBERUxFRTwvdGQ+PHRkIH K3qMakCOfp DYIruT3kRYFxZ0b3RvRrIg I9KGxiU2KqNPBadztwSo79 rC9tCtZuKfL4EWacC9Wgnh L6HECcwETp XDvnGVB7B10ef8O6YOQzBN GcGLW3dUJ3nM6wqPpefows bGVmdDsgdmVydGljYWwtYW kfI085MBSi hRorCeCbXuN1ZcE6SbT9J9 GyRmo9STDpsKecLE8qyIOq OBgeJw1jzOnzoQqzNV1hNN BpbjtwYWRk oZ9xRNToaGGolPmnDB2lZS Ecrrzyb837AtOmWFC1FHJd pKKiJ7NnpE4gIiUgMRUxMZ MvA8GlsUMp FCccA486OInfGwH3VNFbir VsV8GwSSDqsVxbWuU6g1F7 Hs85HgKIIOWfdtbibRF+PH WmFLN6qVoa WYgzLAApoK4qAFMhQ4e1Ai RoWrC0KIwxH6AbTLGsllbd Cr77rJ9rUmXpVtS7VInsH2 GnrbY9UUKh wVQzYAmtDXK8P90sy0N4EM GlXFWrHCY6hSR1fT0sqAjm bjogbGVmdDsgdmVydGljYW jbFDunA423 IHRvcDsnPkZlbWFsZTwvdG Q+KSXbQOH7oGtnOAxpFSCb oR5jQQUuC7o9RpJsXsD1CU rtY1QyPDVc odmhVw64gI3wZmZkEuQ0EN cvV0AtgjQ0JDDcgQQdFGvz AUY3J60fz2J8TGVfAXZyDT G7aTZ0aE7v bGlnbjogbGVmdDsgdmVydG yrYUhbUDncM023SXZjeSll YlWsQXIiTG6oyLcvuQX+PC 00dz37M1Fx FyhcDvx0SDNjDIM9lXF8oO 6eONRjXVomc4K9vIE4X2Fb coObpk3gx6giNHWaLVboU1 7vlHAte6P0 BENqpML0NCIyiJajGdYkiR 93Oyc+SGXduJzou3WlXdna z6owe2jdhRc9LtRmFTYxpz FsaWduPSJ0 y7FcLz27T98lGXotSKGyHB CqDLSbMGQadCyzod0piZ9i Ii8+ZYQpdHN5cOI0pC8rYy OdUxG4FRfi B239AnQxcMRpBbpfp5fix5 sclFa9EpGcCSWvtzPfrYij OCW8q0WxCo93H7YyjMbwp1 JoLgs5rn29 vIJsh7H9eUZ4Z7IqUEZhdc kauKWoiHruLH6nURIceiiu OKGslG9aUGIcA3h7TkCnTc U0CYdfO1Tq dzB1DHPgbZUaCJDxyJQJzI 8gglmsi7sefuwbFbNrCYAu QCc3LEi0ONPzyCwxYhRfEX H7RcH2VSO3 tQMebX4jaVhpuntgrE2qAi c+YSx7g5dzzODuFT1vgLZ9 JX45PX14sYNyu1T3sHH5H8 BhZGRpbmct pyodwDI0RVNbSCJurC22Fc 0jvQyhFk3hQAPeCUU3JAAy iYFsF6NijV7gXiRcDPXmDN NuU9WuaZGu UHcaC862QLksEbT3RVFyba EsE5HfVCZbjEvzPhK6t0E1 Qx2ALQ59SM95CG75aUDeo6 E2gMV9Q7Gm LRXcfaxztwzseJC3WNLoLG CuhM27Zg8moXghTg5wVDWw BUA1DELhaVXzL1LgeA0cFi AjMDAwMDAw E6SymNNkWHlrX332GJrfAq J9PLOvlfZoX6WrYFLieXih RnT5m1Y2Zn8FQx68QB42IR 06eDWhd2Y4 eQO3S2QoEUNtwzfsdkylhR O4QQIlUHAwvH40Jg4kmMvi Ib4yFYSgEOA1OGMegKBiJ2 FkfU6lTrLx FQRvVCAqK6CdrDOlTOuqU2 95DGhhPuK8UOFlmnMxD8Kj ZYOdoZzjVkH8v8Y8Mq7MRV cxqyi9Z8Km PjwvdHI+AY22PZCgFT00hA UqzNQrl3ovmUg5GzFrMUWd WIO0qEznOBjwu8MfTAFhJ2 5hqZAlb5P5 IGNv (more content not included)... Normal [facility] Auto Diffon 02-24-2022 Basophils/100 WBC (Bld) 4.4 % High 0.0-2.0 [facility] Comment on above: Order Comment: Order Added by Discern Expert. Performed By: #### 1 [id number], [id number], [id number] #### [facility] [address] [place] [address] Basophils/Leukocytes Auto (Bld) [Pure # fraction] 0.3 E9/L High 0.0-0.2 [facility] Comment on above: Order Comment: Order Added by Discern Expert. Performed By: #### 1 [id number], [id number], [id number], [id number], [id number] #### [facility] [address] [place] [address] Eosinophils/100 WBC (Bld) 3.8 % Normal 0.0-8.0 [facility] Comment on above: Order Comment: Order Added by Discern Expert. Performed By: #### 1 [id number], [id number], [id number], 2695953, [id number] #### [facility] [address] [place] [address] Eosinophils/Leukocytes Auto (Bld) [Pure # fraction] 0.3 E9/L Normal 0.0-0.5 [facility] Comment on above: Order Comment: Order Added by Discern Expert. Performed By: #### 1 [id number], 9421884, [id number], 1866488, [id number] #### [facility] [address] [place] [address] Lymphocytes/100 WBC (Bld) 31.3 % Normal 14.0-50.0 [facility] Comment on above: Order Comment: Order Added by Discern Expert. Performed By: #### 1 [id number], 4208632, [id number], 7382878, 1079383 #### [facility] [address] [place] [address] Lymphocytes/Leukocytes Auto (Bld) [Pure # fraction] 2.3 E9/L Normal 1.0-4.0 [facility] Comment on above: Order Comment: Order Added by Andrew Expert. Performed By: #### 1 [id number], 0995061, 10832879, 5088415, [id number] #### [facility] [address] [place] [address] Monocytes/100 WBC (Bld) 12.8 % Normal 4.0-14.0 [facility] Comment on above: Order Comment: Order Added by Andrew Expert. Performed By: #### 1 [id number], [id number], 07926437, 1035902, 7747243 #### [facility] [address] [place] [address] Monocytes/Leukocytes Auto (Bld) [Pure # fraction] 0.9 E9/L Normal 0.2-1.0 [facility] Comment on above: Order Comment: Order Added by Andrew Expert. Performed By: #### 1 [id number], 7354916, 86317100, 2157689, 8156903 #### [facility] [address] [place] [address] Neutrophils/100 WBC (Bld) 47.7 % Normal 36.0-75.0 [facility] Comment on above: Order Comment: Order Added by Andrew Expert. Performed By: #### 1 [id number], 3702440, 76480803, 9402886, 8307039 #### [facility] [address] [place] [address] Neutrophils/Leukocytes Auto (Bld) [Pure # fraction] 3.5 E9/L Normal 2.0-7.5 [facility] Comment on above: Order Comment: Order Added by Discern Expert. Performed By: #### 1 [id number], 6351485, 73235404, 5187927, [id number] #### [facility] [address] [place] [address] BMPon 02-24-2022 Creatinine [Mass/Vol] 0.9 mg/dL Normal 0.5-1.3 [facility] Comment on above: Performed By: #### 1 [id number], 5826450, 81669159, 9099123, 2771514 #### [facility] [address] [place] [address] Urea nitrogen [Mass/Vol] 20 mg/dL Normal 5-21 [facility] Comment on above: Performed By: #### 1 [id number], 1913702, [id number], 1029795, 0188102 #### [facility] [address] [place] [address] Urea nitrogen/Creatinine [Mass ratio] 22 No Units High 10-20 [facility] Comment on above: Performed By: #### 1 [id number], [id number], [id number], [id number], [id number] #### [facility] [address] [place] [address] Anion gap [Moles/Vol] 13 mmol/L Normal 6-16 [facility] Comment on above: Performed By: #### 1 [id number], [id number], [id number], 8293210, [id number] #### [facility] [address] [place] [address] Calcium [Mass/Vol] 9.9 mg/dL Normal 8.9-11.1 [facility] Comment on above: Performed By: #### 1 [id number], 2494546, [id number], 8706223, [id number] #### [facility] [address] [place] [address] Chloride [Moles/Vol] 104 mmol/L Normal 101-111 [facility] Comment on above: Performed By: #### 1 [id number], 8544858, [id number], 6291465, 7802339 #### [facility] [address] [place] [address] CO2 [Moles/Vol] 24 mmol/L Normal 21-31 [facility] Comment on above: Performed By: #### 1 [id number], 9973519, 22210151, 4361447, 0538788 #### [facility] [address] [place] [address] Glucose [Mass/Vol] 136 mg/dL Normal 55-199 [facility] Comment on above: Result Comment: If t his glucose result represents a fasting glucose, interpretation should refer to the following reference range: 55-99 mg/dL Performed By: #### 1 [id number], 2108213, 22782796, 7132799, 8406623 #### [facility] [address] [place] [address] Potassium [Moles/Vol] 3.7 mmol/L Normal 3.5-5.3 [facility] Comment on above: Performed By: #### 1 [id number], 5055580, 97930271, 5539953, 1971815 #### [facility] [address] [place] [address] Sodium [Moles/Vol] 137 mmol/L Normal 135-145 [facility] Comment on above: Performed By: #### 1 [id number], 1754489, 63505741, 9949596, 9559909 #### [facility] [address] [place] [address] CBC w/ Auto Diffon 2 Erythrocyte distribution width (RBC) [Ratio] 15.3 % High 10.9-14.2 [facility] Comment on above: Performed By: #### 1 [id number], 0053714, 12207932, 3948986, 3396104 #### [facility] [address] [place] [address] Hematocrit (Bld) [Volume fraction] 43.0 % Normal 34.0-46.0 [facility] Comment on above: Performed By: #### 1 [id number], 2064840, 46182755, 8386265, 2299316 #### [facility] [address] [place] [address] Hemoglobin (Bld) [Mass/Vol] 14.4 g/dL Normal 12.0-16.0 [facility] Comment on above: Performed By: #### 1 [id number], 9638924, 55010940, 6209661, 1081784 #### [facility] Laboratory [address] [place] [address] MCH (RBC) [Entitic mass] 31.0 pg Normal 27.0-34.0 [facility] Comment on above: Performed By: #### 1 7278819, 1601002, 08317812, 9662024, 5305059 #### [facility] [address] [place] [address] MCHC (RBC) [Mass/Vol] 33.6 g/dL Normal 31.4-36.0 [facility] Comment on above: Performed By: #### 1 [id number], 2438853, 92126140, 9652163, 2209610 #### [facility] [address] [place] [address] MCV (RBC) [Entitic vol] 92.2 fL Normal 80.0-100.0 [facility] Comment on above: Performed By: #### 1 3158639, 8097043, 86017962, 3509105, 5016985 #### [facility] [address] [place] [address] Platelet mean volume (Bld) [Entitic vol] 9.2 fL Normal 6.4-10.8 [facility] Comment on above: Performed By: #### 1 1290574, 3049174, 68670392, 4404480, 2123335 #### [facility] [address] [place] [address] Platelets (Bld) [#/Vol] 137.0 E9/L Low 150.0-500.0 [facility] Comment on above: Performed By: #### 1 0344330, 1588844, 95926325, 4602256, 3435828 #### [facility] [address] [place] [address] RBC (Bld) [#/Vol] 4.7 E12/L Normal 4.3-5.9 [facility] Comment on above: Performed By: #### 1 2158511, 9646293, 21181176, 8259875, 4636621 #### [facility] [address] [place] [address] WBC corrected for nucl RBC Auto (Bld) [#/Vol] 7.3 E9/L Normal 4.0-11.0 [facility] Comment on above: Performed By: #### 1 8508058, 0676212, 48074009, 5870297, 8911167 #### [facility] [address] [place] [address] CHEMISTRYOrdered By: SYSTEM SYSTEM on 02-24-2022 Anion gap [Moles/Vol] 13 mmol/L Normal 6 - 16 mEq/L [facility] Calcium [Mass/Vol] 9.9 mg/dL Normal 8.9 - 11. 1 mg/dL [facility] Chloride [Moles/Vol] 104 mmol/L Normal 101 - 1 11 mmol/L [facility] CO2 [Moles/Vol] 24 mmol/L Normal 21 - 31 mmol/L [facility] Creatinine [Mass/Vol] 0.9 mg/dL Normal 0.5 - 1.3 mg/dL [facility] Glucose [Mass/Vol] 136 mg/dL Normal 55 - 199 mg/dL [facility] Potassium [Moles/Vol] 3.7 mmol/L Normal 3.5 - 5.3 mmol/L [facility] Sodium [Moles/Vol] 137 mmol/L Normal 135 - 145 mmol/L [facility] Troponin I.cardiac [Mass/Vol] 8.10 pg/mL Low 10.10 - 27.10 pg/mL [facility] Urea nitrogen [Mass/Vol] 20 mg/dL Normal 5 - 21 mg/dL [facility] Urea nitrogen/Creatinine [Mass ratio] 22 mg/mg High 10 - 20 [facility] COAGULATIONOrdered By: Belkis Watson on 02-24-2022 aPTT Coag (PPP) [Time] 25.4 s Normal 25.1 - 36.5 second(s) [facility] Auto Coag INR Coag (PPP) [Relative time] 1.1 {INR} Invalid Interpretation Code [facility] Auto Coag PT Coag (PPP) [Time] 13.4 s High 10.2 - 12.9 second(s) [facility] Auto Coag CT [...] MD Transcribed by: KHANH Technologist: EMELINA Normal [facility] Consent for Treatmenton 02-06 Consent for Treatment [id number] 0CD:127 [facility] Discharge Instructionson Discharge Instructions [id number] 0CD:127 Normal [facility] ED Clinical Summaryon 2021 ED Clinical Summary [place] [id number] ED Clinical Summary Person Information Name: ZORAIDA BARRIOS/NewTrevon Age: 86 Years : 1935 Sex: Female Language: Icelandic PCP: LACEY FREY MD Marital Status: Single [...] 02/24/2022 10:32:06 02/24/2022 10:32:06 02/24/2022 10:32:06 ADDRESS: [address] [place] [id number] [facility] DOC NOTES: MEDICAL INFORMATION: Prescriptions Given: PATIENT EDUCATION INFORMATION: Instructions: Hypertension, Adult Follow up: With: Address: When: LACEY TK [address] [place], [place] [id number] [facility] (1) In 3 days 02/27/2022 Comments: Increase Losartan to 100 mg a day. Continue Metoprolol 50 mg a day. Make sure to take your blood pressure twice a day and follow-up with Dr. Frey tomorrow at 1 PM at her office. Return to the emergency room if your headache recurs, chest pain, dizziness or any new symptoms. DIAGNOSIS: 1:Accelerated hypertension Normal [facility] ED Note-Physicianon 02-25-20 ED Note-Physician Basic Information Time Seen: Demond Green M.D. 02/24/2022 08:14 Chief Complaint Pt had surgery on right eye this AM with [facility]. Pt reports her BP was elevated this AM before and after surgery. BP was over 200 at [facility]. Had a headache at the time, but [...] reported headache. 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 In the emergency room [...] medications Follow-up With When Contact Information LACEY FREY In 3 days 02/27/[address] [place] [id number]- Business (1) Additional Instructions: Increase Losartan [...] (02/24/22 0 (more content not included)... Normal [facility] Comment on above: Result Comment: Elec tronically [...] ? Avoi (more content not included)... Normal [facility] ED Patient Summaryon 022 ED Patient Summary [address] [address] Patient Discharge Instructions Person Information Name: ZORAIDA BARRIOS Age: 86 Years Arrival Date: 02/24/2022 08:11:05 Discharge Diagnosis: 1:Accelerated hypertension Primary Care Physician: LACEY FREY MD Provider Information Primary Provider: Demond Green M.D. Advanced Visual Journalist:None The exam and treatment you received in the Emergency Department were for an urgent problem and are not intended as complete care. It is important that you follow up with a doctor, nurse practitioner, or physician?s export sales assistant for ongoing care. If your symptoms [...] Follow-up Instructions: With: Address: When: LACEY FREY [address] [place] [address] [employer] In 3 days 02/27/2022 Comments: Increase Losartan [...] opioids can be used to help relieve bhofterl-ff-zrrzxc pain and are often prescribed following a [...] ? Visit (more content not included)... Normal [facility] HEMATOLOGYOrdered By: SYSTEM SYSTEM on 02-24-2022 Basophils/100 WBC (Bld) 4.4 % High 0.0 - 2.0 % [facility] HemeAutoSS Basophils/Leukocytes Auto (Bld) [Pure # fraction] 0.3 E9/L High 0.0 - 0.2 E9/L [facility] HemeAutoSS Eosinophils/100 WBC (Bld) 3.8 % Normal 0.0 - 8.0 % [facility] HemeAutoSS Eosinophils/Leukocytes Auto (Bld) [Pure # fraction] [...] HemeAutoSS Platelets (Bld) [#/Vol] 137.0 E9/L Low 150. 0 - 500.0 E9/L [facility] HemeAutoSS RBC (Bld) [#/Vol] 4.7 E12/L Normal 4.3 - 5.9 E12/L [facility] HemeAutoSS WBC corrected for nucl RBC Auto (Bld) [#/Vol] 7.3 E9/L Normal 4.0 - 11.0 E9/L [facility] HemeAutoSS PT & PTTon 02-24-2022 INR Coag (PPP) [Relative time] 1.1 {INR} Invalid Interpretation Code [facility] Comment on above: Result Comment: INR results are specifically intended to assess patients stabilized on long-term Anticoagulation therapy suggested INR?s ?Less Intensive Anticoagulation? 2.0 ? 3.0 Conventional Range 3.0 ? 4.5 Performed By: #### 1 [id number], [id number], 33102647, 0834924, [id number] #### [facility] [address] [place] [address] PT Coag (PPP) [Time] 13.4 second(s) High 10.2-12.9 [facility] Comment on above: Performed By: #### 1 [id number], 2893995, 09685358, 0212884, [id number] #### [facility] [address] [place] [address] aPTT Coag (PPP) [Time] 25.4 second(s) Normal 25.1-36.5 [facility] Comment on above: Result Comment: Hepa rin therapeutic range (represented by Anti-Factor Xa activity of 0.2 - 0.4 U/mL) corresponds to PTT of 56.6 - 109.0 sec. Performed By: #### 1 [id number], 9464301, 75217351, 7270161, 2978751 #### [facility] [address] [place] [address] Troponin 0 Hr.on 02-24-2022 Troponin I.cardiac [Mass/Vol] 8.10 pg/mL Low 10.10-27.10 [facility] Comment on above: Result Comment: The 95% CI (Confidence Interval) PPV (Positive Predictive Value) for myocardial infarction in females is 38 pg/mL, in males 51 pg/mL. The results should be used in conjunction with clinical conditions of myocardial infarction. (Access High Sensitivity Troponin I Instructions For Use, Gwendolyn Midland, May 2018) Performed By: #### 1 [id number], 9903592, 27126508, 5158632, 8070494 #### [facility] [address] [place] [address] XR Chest Single Viewon 02-24 XR Chest [...] Tyler M.D. Transcribed by: KHANH Technologist: RADHA Valerio 02/24/2022 11:58 am EDT, Trevon Tyler M.D., DISAGREE Normal [facility] Vital Signs Date Time Vital Sign Value Performing Clinician Facility 05-12-2025 13:31-0400 Diastolic blood pressure 80 mm[Hg] Lacey Frey MD Work Phone: [facility] 05-12-2025 13:31-0400 Systolic blood pressure 180 mm[Hg] Lacey Frey MD Work Phone: [facility] 05-12-2025 13:[phone] Body height 157.48 cm Lacey Frey MD Work Phone: [facility] 05-12-2025 [phone] Body mass index (BMI) [Ratio] 24 kg/m2 Lacey Frey MD Work Phone: [facility] 05-12-2025 13:21-0400 Body weight 59.56 kg Lacey Frey MD Work Phone: [facility] 05-12-2025 13:21-0400 Heart rate 57 /min Lacey Frey MD Work Phone: [facility] 05-12-2025 13:21-0400 Respiratory rate 12 /min Lacey Frey MD Work Phone: [facility] 05-12-2025 13:21-0400 SaO2% (BldA) [Mass fraction] 97 % Lacey Frey MD Work Phone: [facility] 04-14-2025 [phone] Body height 157.48 cm Lacey Frey MD Work Phone: [facility] 04-14-2025 11:21-0400 Body mass index (BMI) [Ratio] 24.1 kg/m2 Lacey Frey MD Work Phone: [facility] 04-14-2025 11:21-0400 Body weight 59.87 kg Lacey Frey MD Work Phone: [facility] 04-14-2025 11:21-0400 Diastolic blood pressure 86 mm[Hg] Lacey Frey MD Work Phone: [facility] 04-14-2025 11:21-0400 Heart rate 57 /min Lacey Frey MD Work Phone: [facility] 04-14-2025 11:21-0400 SaO2% (BldA) [Mass fraction] 97 % Lacey Frey MD Work Phone: [facility] 04-14-2025 11:21-0400 Systolic blood pressure 200 mm[Hg] Lacey Frey MD Work Phone: [facility] 02-04-2025 [phone] Body height 157.48 cm [facility] 02-04-2025 14:26-0400 Body mass index (BMI) [Ratio] 23.9 kg/m2 [facility] 02-04-2025 14:26-0400 Body weight 59.42 kg [facility] 02-04-2025 14:26-0400 Diastolic blood pressure 74 mm[Hg] [facility] 02-04-2025 14:26-0400 Heart rate 58 /min [facility] 02-04-2025 14:26-0400 Systolic blood pressure 177 mm[Hg] [facility] 12-26-2024 13:02-0400 Body height 157.48 cm [facility] 12-26-2024 13:02-0400 Body mass index (BMI) [Ratio] 24.7 kg/m2 [facility] 12-26-2024 13:02-0400 Body weight 61.46 kg [facility] 12-26-2024 13:02-0400 Diastolic blood pressure 74 mm[Hg] [facility] 12-26-2024 13:02-0400 Heart rate 69 /min [facility] 12-26-2024 13:02-0400 Systolic blood pressure 169 mm[Hg] [facility] 11-18-2024 13:05-0500 Body height 157.48 cm [facility] 11-18-2024 13:05-0500 Body mass index (BMI) [Ratio] 24 kg/m2 [facility] 11-18-2024 13:05-0500 Body weight 59.56 kg [facility] 11-18-2024 13:05-0500 Diastolic blood pressure 83 mm[Hg] [facility] 11-18-2024 13:05-0500 Heart rate 65 /min [facility] 11-18-2024 13:05-0500 Systolic blood pressure 176 mm[Hg] [facility] 07-09-2024 14:24-0400 Body height 157.48 cm [facility] 07-09-2024 14:24-0400 Body mass index (BMI) [Ratio] 24.3 kg/m2 [facility] 07-09-2024 14:24-0400 Body weight 60.46 kg [facility] 07-09-2024 14:24-0400 Diastolic blood pressure 98 mm[Hg] [facility] 07-09-2024 14:24-0400 Heart rate 57 /min [facility] 07-09-2024 14:24-0400 Systolic blood pressure 212 mm[Hg] [facility] 05-07-2024 13:44-0400 Body height 157.48 cm [facility] 05-07-2024 13:44-0400 Body mass index (BMI) [Ratio] 23.8 kg/m2 [facility] 05-07-2024 13:44-0400 Body weight 58.96 kg [facility] 05-07-2024 13:44-0400 Diastolic blood pressure 69 mm[Hg] [facility] 05-07-2024 13:44-0400 Heart rate 61 /min [facility] 05-07-2024 13:44-0400 Systolic blood pressure 189 mm[Hg] [facility] 01-08-2024 11:43-0400 Body height 157.48 cm [facility] 01-08-2024 11:43-0400 Body mass index (BMI) [Ratio] 22.8 kg/m2 [facility] 01-08-2024 11:43-0400 Body weight 56.84 kg [facility] 01-08-2024 11:43-0400 Diastolic blood pressure 72 mm[Hg] [facility] 01-08-2024 11:43-0400 Heart rate 61 /min [facility] 01-08-2024 11:43-0400 Systolic blood pressure 179 mm[Hg] [facility] 06-08-2023 14:30-0400 Body height 157.48 cm Lacey Frey Other [facility] Other 06-08-2023 14:30-0400 Body mass index (BMI) [Ratio] 23.13 kg/m2 Lacey Frey Other [facility] [facility] [employer] Other 06-08-2023 14:30-0400 Body weight 57.38 kg Lacey Frey Other [facility] [facility] [employer] Other 06-08-2023 14:30-0400 Diastolic blood pressure 77 mm[Hg] Lacey Tk Other [employer] Other 06-08-2023 14:30-0400 Respiratory rate 16 /min Lacey Tk Other [employer] Other 06-08-2023 14:30-0400 Systolic blood pressure 187 mm[Hg] Lacey Tk Other [employer] [facility] [employer] Other 12-20-2022 15:20-0400 Body height 157.48 cm Rox [employer] Other [facility] [facility] [employer] Other 12-20-2022 15:20-0400 Body mass index (BMI) [Ratio] 23.08 kg/m2 [employer] Other [facility] [facility] [employer] Other 12-20-2022 15:20-0400 Body temperature 97 [degF] [employer] Other [facility] [facility] [employer] Other 12-20-2022 15:20-0400 Body weight 57.24 kg Azaicha [employer] Other [facility] [facility] [employer] Other 12-20-2022 15:20-0400 Diastolic blood pressure 85 mm[Hg] Aziz [employer] Other [facility] [facility] [employer] Other 12-20-2022 15:20-0400 Respiratory rate 16 /min Azaicha [employer] Other [employer] [facility] [employer] Other 12-20-2022 15:20-0400 SaO2% (BldA) [Mass fraction] 100 % Aziz [employer] Other [employer] [facility] [employer] Other 12-20-2022 15:20-0400 Systolic blood pressure 170 mm[Hg] Rox Watson Other [place] Other 02-24-2022 10:12-0400 Diastolic blood pressure 80 mm[Hg] [facility] 02-24-2022 10:12-0400 Heart rate 68 /min [facility] 02-24-2022 10:12-0400 Respiratory rate 15 /min [facility] 02-24-2022 10:12-0400 SaO2% (BldA) [Mass fraction] 98 % [facility] 02-24-2022 10:12-0400 Systolic blood pressure 190 mm[Hg] [facility] 02-24-2022 09:24-0400 Diastolic blood pressure 88 mm[Hg] [facility] 02-24-2022 09:24-0400 Heart rate 66 /min [facility] 02-24-2022 09:24-0400 Respiratory rate 16 /min [facility] 02-24-2022 09:24-0400 SaO2% (BldA) [Mass fraction] 99 % [facility] 02-24-2022 09:24-0400 Systolic blood pressure 190 mm[Hg] [facility] 02-24-2022 08:50-0400 Diastolic blood pressure 100 mm[Hg] [facility] 02-24-2022 08:50-0400 Systolic blood pressure 220 mm[Hg] [facility] 02-24-2022 08:14-0400 Body temperature 98.24 [degF] [facility] 02-24-2022 08:14-0400 Heart rate 74 /min [facility] 02-24-2022 08:14-0400 Respiratory rate 18 /min [facility] 02-24-2022 08:14-0400 SaO2% (BldA) [Mass fraction] 99 % [facility] Encounters Encounter Date Encounter Type Care Provider Facility Start: 05-12-2025 End: 05-12-2025 ambulatory Lacey Frey MD Work Phone: [facility] Work Phone: Start: 05-12-2025 End: 05-12-2025 Patient encounter procedure Lacey Frey MD -[facility] Work Phone: Start: 04-14-2025 End: 04-14-2025 ambulatory Lacey Frey MD Work Phone: [facility] Work Phone: Start: 04-14-2025 End: 04-14-2025 Patient encounter procedure Lacey Frey MD -[facility] Work Phone: Start: 04-07-2025 Non-patient / Non-visit Valencia Wilkinson CMA -[facility] Work Phone: Start: 04-06-2025 Non-patient / Non-visit Daphne LACY [facility] Work Phone: Start: 02-12-2025 End: 02-12-2025 ambulatory [facility] Start: 02-04-2025 End: 02-04-2025 ambulatory [facility] Work Phone: Start: 02-04-2025 End: 02-04-2025 Patient encounter procedure [facility] Work Phone: Start: 02-03-2025 End: 02-04-2025 Pre-admission assessment Melba Gregorio [facility] Start: 12-26-2024 End: 12-26-2024 ambulatory [facility] Work Phone: Start: 12-26-2024 End: 12-26-2024 Patient encounter procedure [facility] Work Phone: Start: 12-24-2024 Non-patient / Non-visit [facility] Work Phone: Start: 12-23-2024 Non-patient / Non-visit [facility] Work Phone: Start: 11-28-2024 End: 11-28-2024 ambulatory [facility] Start: 11-18-2024 End: 11-18-2024 ambulatory [facility] Work Phone: Start: 11-18-2024 End: 11-18-2024 Patient encounter procedure [facility] Work Phone: Start: 07-09-2024 End: 07-09-2024 ambulatory [facility] Work Phone: Start: 07-09-2024 End: 07-09-2024 Patient encounter procedure [facility] Work Phone: Start: 06-28-2024 End: 06-28-2024 ambulatory [facility] Start: 05-15-2024 Non-patient / Non-visit [facility] Work Phone: Start: 05-11-2024 Non-patient / Non-visit [facility] Work Phone: Start: 05-10-2024 Non-patient / Non-visit [facility] Work Phone: Start: 05-07-2024 End: 05-07-2024 ambulatory [facility] Work Phone: Start: 05-07-2024 End: 05-07-2024 Patient encounter procedure [facility] Work Phone: Start: 05-01-2024 End: 05-01-2024 ambulatory AALIYAH [facility] Start: 04-25-2024 Non-patient / Non-visit [facility] Work Phone: Start: 03-28-2024 End: 03-28-2024 ambulatory AALIYAH VIRGILIO [facility] Start: 01-08-2024 End: 01-08-2024 ambulatory [facility] Work Phone: Start: 01-08-2024 End: 01-08-2024 Patient encounter procedure [facility] Work Phone: Start: 12-28-2023 Non-patient / Non-visit [facility] Work Phone: Start: 06-08-2023 End: 06-08-2023 ambulatory Lacey Frey Other [facility] [facility] [employer] Other Start: 06-08-2023 Office outpatient visit 15 minutes Lacey Frey [facility] Start: 05-25-2023 End: 05-25-2023 ambulatory Lacey Frey Other [facility] [employer] Other Start: 05-25-2023 Telephone encounter Lacey Tk [facility] Start: 04-25-2023 End: 04-25-2023 ambulatory Lacey Frey Other [facility] [employer] Other Start: 04-25-2023 Telephone encounter Lacey Tk [facility] Start: 03-23-2023 End: 03-23-2023 ambulatory Lacey Tk Other [facility] [employer] Other Start: 03-23-2023 Telephone encounter Lacey Tk [facility] Start: 02-20-2023 End: 02-20-2023 ambulatory Lacey Frey Other [facility] [employer] Other Start: 02-20-2023 Telephone encounter Lacey Tk [facility] Start: 01-17-2023 End: 01-17-2023 ambulatory Lacey Frey Other [facility] [employer] Other Start: 01-17-2023 Telephone encounter Lacey Frey [facility] Start: 12-20-2022 End: 12-20-2022 ambulatory Rox Watson Other [facility] [employer] Other Start: 12-20-2022 [facility] visit new patient Rox Watson [facility] Start: 12-19-2022 End: 12-19-2022 ambulatory Lacey Frey Other [facility] [employer] Other Start: 12-19-2022 Telephone encounter Lacey Tk [facility] Start: 12-10-2022 End: 12-11-2022 ambulatory AALIYAH POOLE Facility:[facility]1 Start: 11-15-2022 End: 11-15-[address] GEORGIE WELLER Facility:[facility] Start: 10-09-2022 End: 10-09-[address] RAMIRO WILEY . Facility:[facility] Start: 09-30-2022 End: 10-01-2022 ambulatory RAHDA HARRINGTON Facility:[facility] Start: 09-26-2022 End: 09-26-2022 ambulatory [...] End: 02-24-2022 Emergency department patient visit Demond Collins ailyn [facility] Plan of Treatment Date Care Activity Detail Author Start: 12-26-2024 Patient referral [facility] Work Phone: Patient referral [facility] Work Phone: US.doppler Carotid a rteries - bilateral [facility] Payers Date Payer Category Payer Unknown [id number] Self-pay 1959 Unknown [id number] 1935 Unknown [id number] 2.16.84 0.1.620267.3.579.2.593 1935 Unknown [id number] 2.16.84 0.1.087258.3.579.2.593 1935 Unknown [id number] 2.16.84 0.1.739724.3.579.2.593 1935 Unknown [id number] 2.16.84 0.1.728651.3.579.2.593 1935 Unknown [id number] 2.16.84 0.1.553848.3.579.2.593 1935 Unknown [id number] 2.16.84 0.1.011934.3.579.2.593 1935 Unknown [id number] 2.16.84 0.1.293623.3.579.2.593 1935 Unknown [id number] 2.16.84 0.1.519008.3.579.2.593 1935 Unknown [id number] 2.16.84 0.1.635357.3.579.2.593 1935 Unknown [id number] 2.16.84 0.1.672560.3.579.2.593 1935 Unknown [id number] 2.16.84 0.1.741943.3.579.2.593 1935 Unknown [id number] 2.16.84 0.1.726382.3.579.2.593 1935 Unknown [id number] 2.16.84 0.1.585882.3.579.2.593 1935 Unknown [id number] 2.16.84 0.1.172833.3.579.2.593 1935 Unknown [id number] 2.16.84 0.1.792799.3.579.2.593 1935 Unknown [id number] 2.16.84 0.1.201414.3.579.2.593 1935 Unknown [id number] 2.16.84 0.1.456024.3.579.2.593 1935 Unknown [id number] 2.16.84 0.1.272461.3.579.2.593 1935 Unknown [id number] 2.16.84 0.1.086306.3.579.2.593 Medicare [id number] 2. 16.840.1.002501.19 Unknown [id number] Social History Date Type Detail Facility Tobacco smoking status Unknown i f ever smoked [facility] Sex Assigned At Female [facility] Start: 1935 Sex Assigned At Female F [facility] Tobacco smoking stat [facility] Unknown if ever smoked [facility] Work Phone: Start: 02-24-2022 End: 11-18-2024 Sex Female (finding) [facility] Tobacco smoking status Higinio resendiz [facility] Start: 05-12-2025 Tobacco smoking stat [facility] Smokes tobacco daily (finding) [facility] Clinical Notes 02-24-2022 to 04-14-2025 Note Date & Type Note Facility 04-14-2025 Evaluation note Diagnosis Onset Date Resolution Resistant hypertension acute Ju ly 2024 11:18am [facility] Work Phone: [phone] NoteUT Cardiology - [facility] Subjective Delesintia Barrios is a 89 y.o. year old [...] presented to the emergency room at the [facility] with elevated blood pressure reading. Blood pressure [...] Take 1 ta (more content not included)... [facility]05-07-2025 NotePatient here for a 3 month follow up. [...] or heart burn. Review of Systems Constitutional: Negative.[facility]04-29-2025 Evaluation note* Diagnosis Onset Date Resolution Status Admit Date Objective pulsatile tinnitus of both ears acute February 04, 2025 2:23pm Resistant hypertension acute Ap ril 2024 2:23pm [facility] Work Phone: [phone] NoteUT Cardiology - [facility] Subjective Zoraida Barrios is a 89 [...] presented to the emergency room at the [facility] with elevated blood pressure reading. Blood pressure [...] normal, troponin high-sensitivity 8.8, (more content not included)...[facility]02-10-2025 Evaluation note* Diagnosis Onset Date Resolution Status Admit Date Resistant hypertension acute [facility] 2024 1:01pm Objective pulsatile tinnitus of both ears acute December 26, 2024 12:58pm Resistant hypertension acute [facility] 2024 12:58pm [facility] Work Phone: [phone] Evaluation note* Diagnosis Onset Date Resolution Status Admit Date Resistant hypertension acute [facility] 2024 1:01pm Chronic kidney disease, stag e 3b acute December 26, 2024 12:58pm Objective pulsatile tinnitus of both ears acute December 26, 2024 12:58pm Resistant hypertension acute [facility] 2024 12:58pm [facility] Work Phone: [phone] NotePer assessment heart rates in the 50s No concerning symptoms at this time We will continue to monitor Discussed with patient to call office for any lightheadedness, dizziness, passing out she voiced understandingUnOur [facility] 06-28-2024 NoteHypertension is stable for her blood pressure log is very well- controlled in office is always elevated most likely related to whitecoat syndrome Continue medicines as prescribed including carvedilol, clonidine, hydralazine, losartan, spironolactone Renal function stableUnOur Lady of Mercy Hospital09-20-2024 Notestable [facility]09-20-2024 NoteUTP CARDIOLOGY PROGRESS NOTE HPI: Zoraida Barrios is a 88 [...] passing out she voiced understanding RTC 6 monthsUnOur [facility] of Mercy [facility]09-20-2024 NotePt is here for three month follow up. Pt denies sob, chest pain, palpatations. Pt says one of her medications makes her dizzy but she does not know which one. Review of Systems Constitutional: Positive for diaphoresis (1 episode). Neurological: Positive for excessive daytime sleepiness (intermittent). All other systems reviewed and are negative.[facility] 05-01-2024 NoteHypertension is quite variable dependent upon [...] Vit D, Thyroid function and Vitamin B levels.[facility]07-24-2024 NoteCurrently stable [facility]07-24-2024 NotePt reports having noted heart rate 49-50's, and denied any significant symptoms associated. Will continue to monitor and D/W pt to call office for lightheadedness, dizziness, near syncope or syncope and she voiced understandingUnOur Lady of Mercy Hospital07-24-2024 NoteUTP CARDIOLOGY PROGRESS NOTE HPI: Zoraida Barrios is a 88 y.o. female here for hospital F/U HPI 88 yo female presents today for hospital F/U after recent evaluation for bradycardia Patient here for follow up [facility]. Says she went shopping with [...] negative ED note- Patient: ZORAIDA BARRIOS MR#: [id number] : 1935 Acct:[id number] Age/Sex: 88 / F ADM Date: 04/25/24 [...] place, and time. P (more content not included)...[facility]07-24-2024 NotePatient here for follow up [facility]. Says she went shopping with [...] (intermittent). All other systems reviewed and are negative.[facility] 03-28-2024 NoteStable Continue aldactone, fluid restriction and low sodium diet Continue regular exercise and activityUnOur Lady of Mercy Hospital 03-28-2024 NoteWell controlled with aldactone currently no edemaUnOur Lady of Mercy Hospital06-20-2024 NoteHypertension is unchanged. Dietary sodium restriction. Continue current medications. Blood pressure will be reassessed in 3 months.[facility]06-20-2024 NotePatient here for 2 mo follow up hypertension and diastolic dysfunction. She had routine labs in January 2024. She denies chest pain, SOB, palpitations, and syncope. Sometimes gets lightheaded upon standing up. Review of Systems Neurological: Positive for excessive daytime sleepiness and light-headedness. All other systems reviewed and are negative.[facility] 03-28-2024 NoteUTP CARDIOLOGY PROGRESS NOTE HPI: Zoraida Barrios is a 88 [...] - with her evening/bedtime meds, she voiced understandingOhioHealth Hardin Memorial Hospital08-31-2023 Evaluation note* Encounter Date Diagnosis Assessment Notes Treatment Notes Treatment Clinical Notes May, Other insomnia (ICD-10 - G47.09) Pt states the ativan does help her insomnia and bp. Denies over-sedation symptoms. 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 Recommend taking meds daily and keeping record and discussing bps w her provider there. [employer] Other 03-14-2023 Evaluation note* Encounter Date Diagnosis [...] pressure monitor reveals significantly better blood pressure [employer] Other [id number] Evaluation + Plan noteExtracted from: Title:ED Note [...] Troponin 9 Hr. XR Chest Single View [facility]05-19-2022 Hospital Discharge instructions Patient Education 02/24/2022 10:32:06 [...] care provider. This is important. Medicines Take ypat-swo-lygbwid and prescription medicines only as told by [...] 09/25/2006 Document Revised: 06/05/2019 Document Reviewed: 06/05/2019 [employer] Patient Education [employer]. Follow Up Care 02/24/2022 08:13:52 With:LACEY FREY Address: [address] [place] [id number]- Business (1) When:02/27/2022 10:23:00 Comments:Increase Losartan to 100 mg a day. Continue Metoprolol 50 mg a day. Make sure to take your blood pressure twice a day and follow-up with Dr. Frey tomorrow at 1 PM at her office. Return to the emergency room if your headache recurs, chest pain, dizziness or any new symptoms. [facility] noteNo InformationNortChester County Hospital [facility] Other Evaluation noteNo assessment information available [facility] Work Phone: Evaluation note* Diagnosis Onset Date Resolution Status Chronic kidney disease, stage 3b acute Resistant hypertension acute Weight gain, abnormal acute [facility] Work Phone: History general Narrative - Reported* Type Description Date Medical History HYPERTENSION Medical History RENAL IMPAIRMENT Medical History TOBACCO DEPENDENCE SYNDROME Surgical History TUBAL LIGATION Surgical History CHOLECYSTECTOMY Hospitalization History SEE ABOVE [facility] [employer] Other Hospital course Narrative No data available for this section [facility] Dis[facility] instructionsAmbulatory Orders* Referral to Vascular Surgery Time Frame: 12/26/24, Location: None Selected [facility] Work Phone: Hospital Discharge instructions No data available for this section [facility] Progress note No data available for this section [facility] Reason for referral (narrative)No reason for referral information availableCrystal Clinic Orthopedic Center Work Phone: Summary Purpose Family History Relationship Condition Age at Onset Recorded Date/T deniz father Unknown family member Unknown Not Specified Hypertension Unknown Unknown sister Hypertension Unknown Relationship Condition Age at Onset Recorded Date/T deniz father Unknown family member Unknown mother Hypertension Unknown Unknown sister Hypertension Unknown Advance Directives Advance Directive Response Recorded Date/ Time Advance Directives No January 02, 11:20am Advance Directive Response Recorded Date/ Time [...] 26, 2024 12:58pm Chief Complaint Admit Date Ear Pain February 04, 2025 2:2 3pm Amb Documentation April 07, 2025 10:1 1am [facility]; SOB April 14, 2025 11:18 am Reason for Visit Admit Date Objective pulsatile tinnitus of both ear s February 04, 2025 2:23pm Resistant hypertension February 04, 2025 2:23pm Chief Complaint Admit Date Amb Documentation April 07, 2025 10:1 1am [facility]; SOB April 14, 2025 11:18 am Wellness May 12, 2025 1:2 0pm Reason for Visit Admit Date Resistant hypertension April 14, 2025 11 :18am Additional Source Comments INFORMATION SOURCE (unrecogn ized section and content) DATE CREATED AUTHOR 03/05/2022 Jorje Ha [facility] DATE CREATED AUTHOR AUTHOR'S ORGANIZ ATION 12/13/2022 [facility] DATE CREATED AUTHOR AUTHOR'S ORGANIZ ATION 02/15/2025 [facility] REASON FOR VISIT (unrecogniz ed section and content) refillRENAL IMPAIRMENTNo Inf ormationNo InformationNo InformationrefillRefillRefillrefillfollow up Care Teams (unrecognized sec tion and content) Team Status: Active Member Role Status Dates Lacey Frey MD Primary Care Provider Active Team Status: Active Member Role Status Dates Lacey Frey MD Primary Care Provider Active Start: April 06, 2025 Daphne Emanuel PA-C Attending Provider Active Start : April 06, 2025 Team Status: Active Member Role Status Dates Lacey Frey MD Primary Care Provider Active Start: April 07, 2025 Valencia Wilkinson CMA Attending Provider Active Start: April 07, 2025 Team Status: Inactive Member Role Status Dates Lacey Frey MD Primary Care Provider Active Start: April 14, 2025 End: April 14, 2025 Lacey Frey MD Attending Provider Active St art: April 14, 2025 End: April 14, 2025 Team Status: Inactive Member Role Status Dates Lacey Frey MD Primary Care Provider Active Start: May 12, 2025 End: May 12, 2025 Lacey Frey MD Attending Provider Active St art: May 12, 2025 End: May 12, 2025 Team Status: Active Member Role Status Dates [...] February 04, 2025 End: February 04, 2025 Team Status: Inactive Member Role Status Dates Lacey Frey MD Primary Care Provider Active Start: February 04, 2025 End: February 04, 2025 Lacey Frey MD Attending Provider Active St art: February 04, 2025 End: February 04, 2025 Team Status: Active Member Role Status Kenji Frey MD Primary Care Provider Active Start: April 06, 2025 Daphne Emanuel PA-C Attending Provider Active Start : April 06, 2025 Team Status: Active Member Role Status Dates Lacey Frey MD Primary Care Provider Active Start: April 07, 2025 Valencia Wilkinson CMA Attending Provider Active Start: April 07, 2025 Team Status: Inactive Member Role Status Dates Lacey Frey MD Primary Care Provider Active Start: April 14, 2025 End: April 14, 2025 Lacey Frey MD Attending Provider Active St art: April 14, 2025 End: April 14, 2025 Team Status: Inactive Member Role Status Dates Lacey Frey MD Primary Care Provider Active Start: May 12, 2025 End: May 12, 2025 Lacey Frey MD Attending Provider Active St art: May 12, 2025 End: May 12, 2025 Goals (unrecognized section and content) Goals [...] BE BASED ON THE PRIMARY CLINICAL RECORDS. [facility] [employer] provides no warranty or guarantee of the accuracy or completeness of information in this document.
== END 2025-07-10 14:09 | disposition home or self-care (01) ==
PROVIDERS: Emergency Provider Emergency Medicine; PCP Family Medicine
DX: I10 Essential (primary) hypertension (principal); Z79.899 Other long term (current) drug therapy
CPT/HCPCS: 36415; 80053; 85025; 93005; 96374; 96375; 99284; J1290

== ENCOUNTER 2025-07-13 08:17 | Emergency (ER) | payer MEDICARE, SELFPAY ==
[2025-07-13 08:19] VITALS: BP 192/78; PULSE 60; TEMP 36.4; O2SAT 95; BMI 23.8
--- OUTSIDE RECORDS SUMMARY | 2025-07-13 08:24 | XMS_ITS | CCD ---
Author Organization [facility] Care Team Providers Care Engraving Plate Maker Name Role Phone LACEY FREY Primary Care Physician [phone] SAURABH Puentes, DR RUBIO Consulting Unavailable HAY [...] TK, DR LACEY Ashton Primary Care Unavailable [place], DR BERTHA Logan Consulting Unavailable ALGHOTHANI, MOHAMAD Consulting Unavailable Lacey Frey Unavailable Rox Watson Unavailable MISSY BAUER Attending Unavailable VIRGILIO, AALIYAH Attending Unavailable VIRGILIO, AALIYAH Attending Unavailable VIRGILIO, AALIYAH Attending Unavailable EDVIN GRUBBS Attending Unavailable Lacey Frey MD Primary Care Provider [phone] Lacey Frey MD Attending Provider Daphne Emanuel PA-C Attending Provider Unavailable Valencia Wilkinson CMA Attending Provider UnavailLacey Rodriguez MD Primary Care Provider [phone] Lacey Frey MD Attending Provider [phone] Allergies Allergy Classification Reported Allergen(s) Allergy Type Date of Onset Reaction(s) Facility (2 sources) Sulfonamides (Antibiotic); Translations: [sulfa drugs] Drug allergy Unknown [facility] (2 sources) Sulfonamides (Antibiotic) Drug allergy (disorder) 4 [facility] Repository (10 sources) Substance with sulfonamide structure and antibacterial mechanism of action (substance) Drug allergy Unknown [facility] Other (1 source) Spironolactone; Translations: [SPIRONOLACTONE] Drug Allergy 5 [facility] Repository (1 source) Sulfonamides (Antibiotic); Translations: [SULFA (SULFONAMIDE ANTIBIOTICS)] Propensity to adverse reactions to drug (disorder) 2 [facility] Repository Medications Current Medications Medication Drug [...] 08-30-2022 Episodic Other aftercare (1 source) Other termite helper (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) drug therapy; Translations: [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 THERAPY] Onset: 10-12-2022 Episodic Other [...] aPTT Coag (PPP) [Time] 27.4 s 22.3-36.2 [facility] Basophils Auto (Bld) [#/Vol] Ordered By: Daphne Emanuel on 04-06-2025 Basophils (Bld) [#/Vol] 0.2 10 3/uL High 0.0-0.1 [facility] Basophils/100 WBC Auto (Bld) Ordered By: Daphne Emanuel on 04-06-2025 Basophils/100 WBC (Bld) 4.2 % High 0.2-2.0 [facility] Eosinophils/100 WBC Auto (Bl d)Ordered By: Daphne Emanuel on 04-06-2025 Eosinophils/100 WBC (Bld) 9.2 % High 0.9-7.0 [facility] Erythrocyte distribution wid th Auto (RBC) [Ratio]Ordered By: Daphne Emanuel on 04-06-2025 Erythrocyte distribution width (RBC) [Ratio] 14.7 % 11.0-15.0 [facility] Estimated glomerular filtrat ion rate (GFR) non- AmericanOrdered By: Daphne Emanuel on 04-06-2025 GFR/1.73 sq M.predicted among non-blacks MDRD (S/P/Bld) [Vol rate/Area] 54 mL/min/{1.73_m2} Low >=60 mL/min/1.73 m 2 [facility] Globulin Calc (S) [Mass/Vol] Ordered By: Daphne Emanuel on 04-06-2025 Globulin (S) [Mass/Vol] 3.1 g/dL [facility] [place] Hematocrit Auto (Bld) [Volum e fraction]Ordered By: Daphne Emanuel on 04-06-2025 Hematocrit (Bld) [Volume fraction] 45.0 % 36.0-48.0 [facility] Hemoglobin [Mass/volume] in BloodOrdered By: Daphne Emanuel on 04-06-2025 Hemoglobin (Bld) [Mass/Vol] 14.7 g/dL 12.0-16.0 [facility] INR in Platelet poor plasma by Coagulation assayOrdered By: Daphne Emanuel on 04-06-2025 INR Coag (PPP) [Relative time] 1.32 {INR} [facility] Comment on above: DESIRED INR:2.0-3.0 CONDITIONS NOT LISTED BELOW2.5-3.5 FOR PROSTHETIC HEART VALVE REPLACEMENT2.5-3.5 RECURRENT THROMBOSIS Laboratory - Chemistry and C hemistry - challengeOrdered By: Daphne Emanuel on 04-06-2025 Bilirubin Ql (U) Negative NEGATIVE [facility] Glucose (U) [Mass/Vol] Negative NEGATIVE [facility] Ketones Ql (U) Negative NEGATIVE [facility] pH (U) 7.0 [pH] 5.0-9.0 [facility] Specific gravity (U) [Rel density] 1.010 1.005-1.025 [facility] Urobilinogen Qn (U) 0.2 {Myranda'U}/dL 0.2-1.0 [facility] Albumin [Mass/Vol] 3.7 g/dL 3.4-5.[address] [facility] ALP [Catalytic activity/Vol] 64 U/L 46-116 [facility] ALT [Catalytic activity/Vol] 16 U/L 14-59 [facility] AST [Catalytic activity/Vol] 14 U/L Low 15-37 [facility] Bilirubin [Mass/Vol] 0.4 mg/dL 0.2-1.0 [facility] Calcium [Mass/Vol] 9.9 mg/dL 8.5-10.[address] [facility] Chloride [Moles/Vol] 106 mmol/L 98-107 [facility] CO2 [Moles/Vol] 26.9 mmol/L 21.0-32.0 [facility] Creatinine [Mass/Vol] 0.97 mg/dL 0.55-1.02 [facility] GFR/1.73 sq M.predicted MDRD (S/P/Bld) [Vol rate/Area] mL/min/{1.73_m2} >=60 mL/min/1.73 m 2 [facility] Glucose [Mass/Vol] 102 mg/dL 74-[address] [facility] Natriuretic peptide B (Bld) [Mass/Vol] 213.0 pg/mL <=1800.0 [facility] Potassium [Moles/Vol] 3.8 mmol/L 3.5-5.1 [facility] Protein [Mass/Vol] 6.8 g/dL 6.4-8.[address] [facility] Sodium [Moles/Vol] 144 mmol/L 136-[address] [facility] Urea nitrogen [Mass/Vol] 19.0 mg/dL High 7.0-18.0 [facility] Urea nitrogen/Creatinine [Mass ratio] 19.6 mg/mg [facility] Laboratory - Hematology and Cell countsOrdered By: Daphne Emanuel on 04-06-2025 Immature granulocytes/100 WBC (Bld) 0.5 % 0.0-0.5 [facility] Laboratory - Specimen inform ationOrdered By: Daphne Emanuel on 04-06-2025 Appearance (U) CLEAR CLEAR [facility] Color (U) LT. YELLOW YELLOW [facility] Laboratory - UrinalysisOrder ed By: Daphne Emanuel on 04-06-2025 Leukocyte esterase Test strip Ql (U) Negative NEGATIVE [facility] Mucus Ql (Urine sed) TRACE Abnormal NONE SEEN [facility] Nitrite Ql (U) Negative NEGATIVE [facility] Protein Ql (U) Negative NEG/TRACE [facility] Leukocytes [#/volume] correc gely for nucleated erythrocytes in Blood by Automated counOrdered By: Daphne Emanuel on 04-06-2025 WBC corrected for nucl RBC Auto (Bld) [#/Vol] 5.8 10 3/uL 4.0-11.0 [facility] Lymphocytes Auto (Bld) [#/Vo l]Ordered By: Daphne Emanuel on 04-06-2025 Lymphocytes (Bld) [#/Vol] 2.3 10 3/uL 1.2-3.8 [facility] Lymphocytes/100 WBC Auto (Bl d)Ordered By: Daphne Emanuel on 04-06-2025 Lymphocytes/100 WBC (Bld) 39.5 % 20.5-60.0 [facility] MCH Auto (RBC) [Entitic mass ]Ordered By: Daphne Emanuel on 04-06-2025 MCH (RBC) [Entitic mass] 30.0 pg 26.7-34.0 [facility] MCHC Auto (RBC) [Mass/Vol]Or dered By: Daphne Emanuel on 04-06-2025 MCHC (RBC) [Mass/Vol] 32.7 g/dL 29.9-35.2 [facility] MCV Auto (RBC) [Entitic vol] Ordered By: Daphne Emanuel on 04-06-2025 MCV (RBC) [Entitic vol] 91.8 fL 81.0-99.0 [facility] [place] Monocytes Auto (Bld) [#/Vol] Ordered By: Daphne Emanuel on 04-06-2025 Monocytes (Bld) [#/Vol] 0.8 10 3/uL 0.3-0.8 [facility] Monocytes/100 WBC Auto (Bld) Ordered By: Daphne Emanuel on 04-06-2025 Monocytes/100 WBC (Bld) 13.6 % High 1.7-12.0 [facility] [place] Neutrophils Auto (Bld) [#/Vo l]Ordered By: Daphne Emanuel on 04-06-2025 Neutrophils (Bld) [#/Vol] 1.9 10 3/uL 1.4-6.5 [facility] Neutrophils/100 WBC Auto (Bl d)Ordered By: Daphne Emanuel on 04-06-2025 Neutrophils/100 WBC (Bld) 33.0 % Low 43.0-75.0 [facility] No Panel InformationOrdered By: Daphne Emanuel on 04-06-2025 Urine Bacteria TRACE #/HPF Abnormal NONE SEEN [facility] Urine Culture Reflexed NO [facility] Urine Occult Blood Negative NEGATIVE [facility] Urine Other Casts NONE SEEN #/LPF NONE SEEN [facility] Urine Other Crystals None Seen #/HPF None Seen [facility] Urine RBC 0-2 #/HPF 0-2 [facility] Urine Squamous Epithelial Cells RARE #/LPF NONE/RARE [facility] Urine WBC NONE SEEN #/HPF NONE SEEN [facility] Eosinophils # (Auto) 0.5 10 3/uL 0.0-0.7 [facility] Immature Granulocyte # (Auto) 0.03 10 3/uL 0.00-0.03 [facility] Troponin I High Sensitivity 8.7 pg/mL 4.0-51.3 [facility] Comment on above: CUT-OFF POINTS HAVE [...] volume (Bld) [Entitic vol] 10.7 fL 9.5-13.5 [facility] Platelets Auto (Bld) [#/Vol] Ordered By: Daphne Emanuel on 04-06-2025 Platelets (Bld) [#/Vol] 135 10 3/uL Low 150-450 [facility] Prothrombin time (PT)Ordered By: Daphne Emanuel on 04-06-2025 PT Coag (PPP) [Time] 13.6 s High 9.0-11.6 [facility] RBC Auto (Bld) [#/Vol]Ordere d By: Daphne Emanuel on 04-06-2025 RBC (Bld) [#/Vol] 4.90 10 6/uL 4.20-5.40 [facility] Serum or plasma albumin/glob ulin mass ratioOrdered By: Daphne Emanuel on 04-06-2025 Albumin/Globulin [Mass ratio] 1.2 {ratio} [facility] Serum or plasma anion gap de terminationOrdered By: Daphne Emanuel on 04-06-2025 Anion gap [Moles/Vol] 14.9 mmol/L [facility] Office Visiton 02-12-2025 Follow-up visit [id number] Zoraida Barrios 1935 F Date Provider Department Center 02/12/2025 Sindhu-MISSY BAUER CARD [facility] Family History Problem Relation Age of Onset Hypertension Mother Family Status - Relation Status Age at Mother Father Level of Service:24541 PA OFFICE/OUTPATIENT ESTABLISHED MOD MDM 30 MIN Normal [facility] Basophils Auto (Bld) [#/Vol] on 12-24-2024 Basophils (Bld) [#/Vol] Automated basoph il count High 0.0-0.1 [facility] Basophils/100 WBC Auto (Bld) on 12-24-2024 Basophils/100 WBC (Bld) Automated basophil % High 0. 2-2.0 [facility] Eosinophils/100 WBC Auto (Bl d)on 12-24-2024 Eosinophils/100 WBC (Bld) Automated eosinophil % 0.9-7.0 [facility] Erythrocyte distribution wid th Auto (RBC) [Ratio]on 12-24-2024 Erythrocyte distribution width (RBC) [Ratio] Erythrocyte distribution width [Ratio] by Automated count 11.0-15.0 [facility] Estimated glomerular filtrat ion rate (GFR) non- Americanon 12-24-2024 GFR/1.73 sq M.predicted among non-blacks MDRD (S/P/Bld) [Vol rate/Area] Estimated glomerular filtration rate (GFR) non- Low >=60 mL/min/1.73 m 2 [facility] Globulin Calc (S) [Mass/Vol] on 12-24-2024 Globulin (S) [Mass/Vol] Serum globulin measurement by calculation (mass/volume) [facility] Hematocrit Auto (Bld) [Volum e fraction]on 12-24-2024 Hematocrit (Bld) [Volume fraction] Hematocrit [Volume Fraction] of Blood by Automated count 36.0-48.0 [facility] Hemoglobin [Mass/volume] in Bloodon 12-24-2024 Hemoglobin (Bld) [Mass/Vol] Hemoglobin [Mass/volume] in Blood 12.0-16.0 [facility] Laboratory - Chemistry and C hemistry - challengeon 12-24-2024 Albumin [Mass/Vol] 3.4 g/dL 3.4-5.[address] [facility] ALP [Catalytic activity/Vol] 55 U/L 46-116 [facility] ALT [Catalytic activity/Vol] 14 U/L 14-59 [facility] AST [Catalytic activity/Vol] 15 U/L 15-37 [facility] Bilirubin [Mass/Vol] 0.3 mg/dL 0.2-1.0 [facility] Calcium [Mass/Vol] 9.8 mg/dL 8.5-10.[address] [facility] Chloride [Moles/Vol] 106 mmol/L 98-107 [facility] CO2 [Moles/Vol] 29.4 mmol/L 21.0-32.0 [facility] Creatinine [Mass/Vol] 1.24 mg/dL High 0.55-1.02 [facility] GFR/1.73 sq M.predicted MDRD (S/P/Bld) [Vol rate/Area] 49 mL/min/{1.73_m2} Low >=60 mL/min/1.73 m 2 [facility] Glucose [Mass/Vol] 158 mg/dL High 74-[address] [facility] Potassium [Moles/Vol] 3.5 mmol/L 3.5-5.1 [facility] Protein [Mass/Vol] 6.3 g/dL Low 6.4-8.[address] [facility] Sodium [Moles/Vol] 143 mmol/L 136-[address] [facility] Urea nitrogen [Mass/Vol] 25.0 mg/dL High 7.0-18.0 [facility] Urea nitrogen/Creatinine [Mass ratio] 20.2 mg/mg [facility] Laboratory - Hematology and Cell countson 12-24-2024 Immature granulocytes/100 WBC (Bld) 0.4 % 0.0-0.5 [facility] Leukocytes [#/volume] correc gely for nucleated erythrocytes in Blood by Automated counon 12-24-2024 WBC corrected for nucl RBC Auto (Bld) [#/Vol] Leukocytes [#/volume] corrected for nucleated erythrocytes in Blood by Automated coun 4.0-11.0 [facility] Lymphocytes Auto (Bld) [#/Vo l]on 12-24-2024 Lymphocytes (Bld) [#/Vol] Lymphocytes [#/volume] in Blood by Automated count 1.2-3.8 [facility] Lymphocytes/100 WBC Auto (Bl d)on 12-24-2024 Lymphocytes/100 WBC (Bld) Lymphocytes/100 leukocytes in Blood by Automated count 20.5-60.0 [facility] MCH Auto (RBC) [Entitic mass ]on 12-24-2024 MCH (RBC) [Entitic mass] MCH [Entitic mass] by Automated count 26.7-34.0 [facility] MCHC Auto (RBC) [Mass/Vol]on 12-24-2024 MCHC (RBC) [Mass/Vol] MCHC [Mass/volume] by Automated count 29.9-35.2 [facility] MCV Auto (RBC) [Entitic vol] on 12-24-2024 MCV (RBC) [Entitic vol] MCV [Entitic vol ume] by Automated count 81.0-99.0 [facility] Monocytes Auto (Bld) [#/Vol] on 12-24-2024 Monocytes (Bld) [#/Vol] Automated blood monocyte count 0.3-0.8 [facility] Monocytes/100 WBC Auto (Bld) on 12-24-2024 Monocytes/100 WBC (Bld) Automated monocyte % High 1. 7-12.0 [facility] Neutrophils Auto (Bld) [#/Vo l]on 12-24-2024 Neutrophils (Bld) [#/Vol] Neutrophils [#/volume] in Blood by Automated count 1.4-6.5 [facility] Neutrophils/100 WBC Auto (Bl d)on 12-24-2024 Neutrophils/100 WBC (Bld) Automated neutrophil % 43.0-75.0 [facility] No Panel Informationon 12-24 Eosinophils # (Auto) 0.3 10 3/uL 0.0-0.7 [facility] Immature Granulocyte # (Auto) 0.02 10 3/uL 0.00-0.03 [facility] Troponin I High Sensitivity 8.8 pg/mL 4.0-51.3 [facility] Comment on above: CUT-OFF POINTS HAVE [...] volume] in Blood by Automated count 9.5-13.5 [facility] Platelets Auto (Bld) [#/Vol] on 12-24-2024 Platelets (Bld) [#/Vol] Platelets [#/vol ume] in Blood by Automated count Low 150-450 [facility] RBC Auto (Bld) [#/Vol]on RBC (Bld) [#/Vol] Erythrocytes [#/volume] in Blood by Automated count 4.20-5.40 [facility] Serum or plasma albumin/glob ulin mass ratioon 12-24-2024 Albumin/Globulin [Mass ratio] Serum or plasma albumin/globulin mass ratio [facility] Serum or plasma anion gap de terminationon 12-24-2024 Anion gap [Moles/Vol] Serum or plasma an ion gap determination [facility] Office Visiton 11-28-2024 Follow-up visit [id number] Zoraida Barrios 1935 F Date Provider Department Center 11/28/2024 EDVIN PALM CRISTOBAL Barber Family History Problem Relation Age of Onset Hypertension Mother Family Status - Relation Status Age at Mother Level of Service:84107 PA OFFICE/OUTPATIENT ESTABLISHED LOW MDM 20 MIN Normal [facility] Office Visiton 06-28-2024 Follow-up visit [id number] Zoraida Barrios 1935 F Date Provider Department Center 06/28/2024 AALIYAH HENDERSON CRISTOBAL Barber Family History Problem Relation Age of Onset Hypertension Mother Family Status - Relation Status Age at Mother Level of Service:82630 PA OFFICE/OUTPATIENT ESTABLISHED LOW MDM 20 MIN Normal [facility] Basophils Auto (Bld) [#/Vol] on 05-15-2024 Basophils (Bld) [#/Vol] 0.2 10 3/uL High 0.0-0.1 [facility] Basophils/100 WBC Auto (Bld) on 05-15-2024 Basophils/100 WBC (Bld) 2.2 % High 0.2-2.0 [facility] [place] Eosinophils/100 WBC Auto (Bl d)on 05-15-2024 Eosinophils/100 WBC (Bld) 5.0 % 0.9-7.0 [facility] Erythrocyte distribution wid th Auto (RBC) [Ratio]on 05-15-2024 Erythrocyte distribution width (RBC) [Ratio] 14.7 % 11.0-15.0 [facility] Estimated glomerular filtrat ion rate (GFR) non- Americanon 05-15-2024 GFR/1.73 sq M.predicted among non-blacks MDRD (S/P/Bld) [Vol rate/Area] 45 mL/min/{1.73_m2} Low >=60 [facility] Hematocrit Auto (Bld) [Volum e fraction]on 05-15-2024 Hematocrit (Bld) [Volume fraction] 40.2 % 36.0-48.0 [facility] Hemoglobin [Mass/volume] in Bloodon 05-15-2024 Hemoglobin (Bld) [Mass/Vol] 13.0 g/dL 12.0-16.0 [facility] Laboratory - Chemistry and C hemistry - challengeon 05-15-2024 Calcium [Mass/Vol] 9.5 mg/dL 8.5-10.[address] [facility] Chloride [Moles/Vol] 105 mmol/L 98-107 [facility] CO2 [Moles/Vol] 26.4 mmol/L 21.0-32.0 [facility] Cobalamin (Vitamin B12) [Mass/Vol] 618.0 pg/mL 193.0-986.0 [facility] Creatinine [Mass/Vol] 1.15 mg/dL High 0.55-1.02 [facility] Free T4 [Mass/Vol] 1.06 ng/dL 0.76-1.[address] [facility] GFR/1.73 sq M.predicted MDRD (S/P/Bld) [Vol rate/Area] 54 mL/min/{1.73_m2} Low >=60 [facility] Glucose [Mass/Vol] 104 mg/dL 74-[address] [facility] Potassium [Moles/Vol] 4.2 mmol/L 3.5-5.1 [facility] Sodium [Moles/Vol] 137 mmol/L 136-[address] [facility] TSH Qn 4.417 m[IU]/L High 0.358-3.740 [facility] Urea nitrogen [Mass/Vol] 20.0 mg/dL High 7.0-18.0 [facility] Urea nitrogen/Creatinine [Mass ratio] 17.4 mg/mg [facility] Laboratory - Hematology and Cell countson 05-15-2024 Immature granulocytes/100 WBC (Bld) 1.3 % High 0.0-0.5 [facility] Leukocytes [#/volume] correc gely for nucleated erythrocytes in Blood by Automated counon 05-15-2024 WBC corrected for nucl RBC Auto (Bld) [#/Vol] 10.4 10 3/uL 4.0-11.0 [facility] Lymphocytes Auto (Bld) [#/Vo l]on 05-15-2024 Lymphocytes (Bld) [#/Vol] 2.1 10 3/uL 1.2-3.8 [facility] Lymphocytes/100 WBC Auto (Bl d)on 05-15-2024 Lymphocytes/100 WBC (Bld) 20.1 % Low 20.5-60.0 [facility] MCH Auto (RBC) [Entitic mass ]on 05-15-2024 MCH (RBC) [Entitic mass] 30.2 pg 26.7-34.0 [facility] MCHC Auto (RBC) [Mass/Vol]on 05-15-2024 MCHC (RBC) [Mass/Vol] 32.3 g/dL 29.9-35.2 [facility] MCV Auto (RBC) [Entitic vol] on 05-15-2024 MCV (RBC) [Entitic vol] 93.3 fL 81.0-99.0 [facility] [place] Monocytes Auto (Bld) [#/Vol] on 05-15-2024 Monocytes (Bld) [#/Vol] 1.4 10 3/uL High 0.3-0.8 [facility] Monocytes/100 WBC Auto (Bld) on 05-15-2024 Monocytes/100 WBC (Bld) 13.0 % High 1.7-12.0 [facility] [place] Neutrophils Auto (Bld) [#/Vo l]on 05-15-2024 Neutrophils (Bld) [#/Vol] 6.1 10 3/uL 1.4-6.5 [facility] Neutrophils/100 WBC Auto (Bl d)on 05-15-2024 Neutrophils/100 WBC (Bld) 58.4 % 43.0-75.0 [facility] No Panel Informationon 05-15 25-Hydroxy Vitamin D Total 32.6 ng/mL [facility] Comment on above: <20 ng/mL Vit D defi cient20-<30 ng/mL Vit D -065 ng/mL Vit D sufficient>100 ng/mL Potential Toxicity Eosinophils # (Auto) 0.5 10 3/uL 0.0-0.7 [facility] Folate 12.10 ng/mL 8.60-58.90 [facility] Immature Granulocyte # (Auto) 0.13 10 3/uL High 0.00-0.03 [facility] Platelet mean volume Auto (B ld) [Entitic vol]on 05-15-2024 Platelet mean volume (Bld) [Entitic vol] 10.7 fL 9.5-13.5 [facility] Platelets Auto (Bld) [#/Vol] on 05-15-2024 Platelets (Bld) [#/Vol] 132 10 3/uL Low 150-450 [facility] RBC Auto (Bld) [#/Vol]on RBC (Bld) [#/Vol] 4.31 10 6/uL 4.20-5.40 [facility] Serum or plasma anion gap de terminationon 05-15-2024 Anion gap [Moles/Vol] 9.8 mmol/L [facility] Basophils Auto (Bld) [#/Vol] on 05-10-2024 Basophils (Bld) [#/Vol] 0.2 10 3/uL High 0.0-0.1 [facility] Basophils/100 WBC Auto (Bld) on 05-10-2024 Basophils/100 WBC (Bld) 3.1 % High 0.2-2.0 [facility] [place] Eosinophils/100 WBC Auto (Bl d)on 05-10-2024 Eosinophils/100 WBC (Bld) 6.3 % 0.9-7.0 [facility] Erythrocyte distribution wid th Auto (RBC) [Ratio]on 05-10-2024 Erythrocyte distribution width (RBC) [Ratio] 14.8 % 11.0-15.0 [facility] Estimated glomerular filtrat ion rate (GFR) non- Americanon 05-10-2024 GFR/1.73 sq M.predicted among non-blacks MDRD (S/P/Bld) [Vol rate/Area] 39 mL/min/{1.73_m2} Low >=60 [facility] Fibrin D-dimer [Presence] in Platelet poor plasma by Latex agglutinationon 05-10-2024 Fibrin D-dimer LA Ql (PPP) 0.29 mg/L FEU <=0.59 [facility] Comment on above: Increases in D-Dimer [...] 05-10-2024 Globulin (S) [Mass/Vol] 3.1 g/dL [facility] [place] Hematocrit Auto (Bld) [Volum e fraction]on 05-10-2024 Hematocrit (Bld) [Volume fraction] 39.6 % 36.0-48.0 [facility] Hemoglobin [Mass/volume] in Bloodon 05-10-2024 Hemoglobin (Bld) [Mass/Vol] 12.9 g/dL 12.0-16.0 [facility] INR in Platelet poor plasma by Coagulation assayon 05-10-2024 INR Coag (PPP) [Relative time] 1.34 {INR} [facility] Comment on above: DESIRED INR:2.0-3.0 CONDITIONS NOT LISTED BELOW2.5-3.5 FOR PROSTHETIC HEART VALVE REPLACEMENT2.5-3.5 RECURRENT THROMBOSIS Laboratory - Chemistry and C hemistry - challengeon 05-10-2024 Bilirubin Ql (U) Negative NEGATIVE [facility] Glucose (U) [Mass/Vol] [facility] Ketones Ql (U) Negative NEGATIVE [facility] pH (U) 6.0 [pH] 5.0-9.0 [facility] Specific gravity (U) [Rel density] 1.015 1.005-1.025 [facility] Urobilinogen Qn (U) 0.2 {Myranda'U}/dL 0.2-1.0 [facility] Albumin [Mass/Vol] 3.5 g/dL 3.4-5.[address] [facility] ALP [Catalytic activity/Vol] 54 U/L 46-116 [facility] ALT [Catalytic activity/Vol] 17 U/L 14-59 [facility] AST [Catalytic activity/Vol] 14 U/L Low 15-37 [facility] Bilirubin [Mass/Vol] 0.4 mg/dL 0.2-1.0 [facility] Calcium [Mass/Vol] 9.5 mg/dL 8.5-10.[address] [facility] Chloride [Moles/Vol] 104 mmol/L 98-107 [facility] CO2 [Moles/Vol] 26.0 mmol/L 21.0-32.0 [facility] Creatinine [Mass/Vol] 1.28 mg/dL High 0.55-1.02 [facility] GFR/1.73 sq M.predicted MDRD (S/P/Bld) [Vol rate/Area] 48 mL/min/{1.73_m2} Low >=60 [facility] Glucose [Mass/Vol] 143 mg/dL High 74-[address] [facility] Natriuretic peptide B (Bld) [Mass/Vol] 178.0 pg/mL <=1800.0 [facility] Potassium [Moles/Vol] 3.9 mmol/L 3.5-5.1 [facility] Protein [Mass/Vol] 6.6 g/dL 6.4-8.[address] [facility] Sodium [Moles/Vol] 136 mmol/L 136-[address] [facility] Urea nitrogen [Mass/Vol] 21.0 mg/dL High 7.0-18.0 [facility] Urea nitrogen/Creatinine [Mass ratio] 16.4 mg/mg [facility] Laboratory - Hematology and Cell countson 05-10-2024 Immature granulocytes/100 WBC (Bld) 0.3 % 0.0-0.5 [facility] Laboratory - Specimen inform ationon 05-10-2024 Appearance (U) CLEAR CLEAR [facility] Color (U) LT. YELLOW YELLOW [facility] Laboratory - Urinalysison Leukocyte esterase Test strip Ql (U) SMALL Abnormal NEGATIVE [facility] Mucus Ql (Urine sed) NONE SEEN NONE SEEN [facility] Nitrite Ql (U) Negative NEGATIVE [facility] Protein Ql (U) Negative NEG/TRACE [facility] Leukocytes [#/volume] correc gely for nucleated erythrocytes in Blood by Automated counon 05-10-2024 WBC corrected for nucl RBC Auto (Bld) [#/Vol] 5.9 10 3/uL 4.0-11.0 [facility] Lymphocytes Auto (Bld) [#/Vo l]on 05-10-2024 Lymphocytes (Bld) [#/Vol] 1.8 10 3/uL 1.2-3.8 [facility] Lymphocytes/100 WBC Auto (Bl d)on 05-10-2024 Lymphocytes/100 WBC (Bld) 31.0 % 20.5-60.0 [facility] MCH Auto (RBC) [Entitic mass ]on 05-10-2024 MCH (RBC) [Entitic mass] 30.4 pg 26.7-34.0 [facility] MCHC Auto (RBC) [Mass/Vol]on 05-10-2024 MCHC (RBC) [Mass/Vol] 32.6 g/dL 29.9-35.2 [facility] MCV Auto (RBC) [Entitic vol] on 05-10-2024 MCV (RBC) [Entitic vol] 93.2 fL 81.0-99.0 [facility] [place] Monocytes Auto (Bld) [#/Vol] on 05-10-2024 Monocytes (Bld) [#/Vol] 0.7 10 3/uL 0.3-0.8 [facility] Monocytes/100 WBC Auto (Bld) on 05-10-2024 Monocytes/100 WBC (Bld) 12.4 % High 1.7-12.0 [facility] [place] Neutrophils Auto (Bld) [#/Vo l]on 05-10-2024 Neutrophils (Bld) [#/Vol] 2.8 10 3/uL 1.4-6.5 [facility] Neutrophils/100 WBC Auto (Bl d)on 05-10-2024 Neutrophils/100 WBC (Bld) 46.9 % 43.0-75.0 [facility] No Panel Informationon 05-10 Urine Bacteria TRACE #/HPF Abnormal NONE SEEN [facility] Urine Occult Blood TRACE-I NEGATIVE [facility] Urine Other Casts NONE SEEN #/LPF NONE SEEN [facility] Urine Other Crystals None Seen #/HPF None Seen [facility] Urine RBC 5-10 #/HPF Abnormal 0-2 [facility] Urine Squamous Epithelial Cells MODERATE #/LPF Abnormal NONE/RARE [facility] Urine WBC 0-2 #/HPF Abnormal NONE SEEN [facility] Eosinophils # (Auto) 0.4 10 3/uL 0.0-0.7 [facility] Immature Granulocyte # (Auto) 0.02 10 3/uL 0.00-0.03 [facility] Troponin I High Sensitivity 5.5 pg/mL 4.0-51.3 [facility] Comment on above: CUT-OFF POINTS HAVE [...] volume (Bld) [Entitic vol] 10.9 fL 9.5-13.5 [facility] Platelets Auto (Bld) [#/Vol] on 05-10-2024 Platelets (Bld) [#/Vol] 144 10 3/uL Low 150-450 [facility] Prothrombin time (PT)on PT Coag (PPP) [Time] 13.8 s High 9.0-11.6 [facility] RBC Auto (Bld) [#/Vol]on RBC (Bld) [#/Vol] 4.25 10 6/uL 4.20-5.40 [facility] Serum or plasma albumin/glob ulin mass ratioon 05-10-2024 Albumin/Globulin [Mass ratio] 1.1 {ratio} [facility] Serum or plasma anion gap de terminationon 05-10-2024 Anion gap [Moles/Vol] 9.9 mmol/L [facility] Office Visiton 05-01-2024 Follow-up visit [id number] Zoraida Barrios 1935 F Date Provider Department Center 05/01/2024 AALIYAH HENDERSON CARD [facility] Family History Problem Relation Age of Onset Hypertension Mother Family Status - Relation Status Age at Mother Level of Service:39356 PA OFFICE/OUTPATIENT ESTABLISHED LOW MDM 20 MIN Normal [facility] Basophils/100 WBC Manual cnt (Bld)on 04-25-2024 Basophils/100 WBC (Bld) 0.0 % Low 0.2-2.0 [facility] [place] Eosinophils/100 WBC Manual c nt (Bld)on 04-25-2024 Eosinophils/100 WBC (Bld) 4.0 % 0.9-7.0 [facility] Erythrocyte distribution wid th Auto (RBC) [Ratio]on 04-25-2024 Erythrocyte distribution width (RBC) [Ratio] 14.7 % 11.0-15.0 [facility] Estimated glomerular filtrat ion rate (GFR) non- Americanon 04-25-2024 GFR/1.73 sq M.predicted among non-blacks MDRD (S/P/Bld) [Vol rate/Area] 42 mL/min/{1.73_m2} Low >=60 [facility] Globulin Calc (S) [Mass/Vol] on 04-25-2024 Globulin (S) [Mass/Vol] 3.4 g/dL [facility] [place] Hematocrit Auto (Bld) [Volum e fraction]on 04-25-2024 Hematocrit (Bld) [Volume fraction] 43.1 % 36.0-48.0 [facility] Hemoglobin [Mass/volume] in Bloodon 04-25-2024 Hemoglobin (Bld) [Mass/Vol] 13.8 g/dL 12.0-16.0 [facility] INR in Platelet poor plasma by Coagulation assayon 04-25-2024 INR Coag (PPP) [Relative time] 1.31 {INR} [facility] Comment on above: DESIRED INR:2.0-3.0 CONDITIONS NOT LISTED BELOW2.5-3.5 FOR PROSTHETIC HEART VALVE REPLACEMENT2.5-3.5 RECURRENT THROMBOSIS Laboratory - Chemistry and C hemistry - challengeon 04-25-2024 Albumin [Mass/Vol] 4.0 g/dL 3.4-5.[address] [facility] ALP [Catalytic activity/Vol] 63 U/L 46-116 [facility] ALT [Catalytic activity/Vol] 18 U/L 14-59 [facility] AST [Catalytic activity/Vol] 14 U/L Low 15-37 [facility] Bilirubin [Mass/Vol] 0.7 mg/dL 0.2-1.0 [facility] Calcium [Mass/Vol] 9.6 mg/dL 8.5-10.[address] [facility] Chloride [Moles/Vol] 104 mmol/L 98-107 [facility] CO2 [Moles/Vol] 29.2 mmol/L 21.0-32.0 [facility] Creatinine [Mass/Vol] 1.21 mg/dL High 0.55-1.02 [facility] GFR/1.73 sq M.predicted MDRD (S/P/Bld) [Vol rate/Area] 51 mL/min/{1.73_m2} Low >=60 [facility] Glucose [Mass/Vol] 136 mg/dL High 74-[address] [facility] Natriuretic peptide B (Bld) [Mass/Vol] 201.0 pg/mL <=1800.0 [facility] Potassium [Moles/Vol] 3.9 mmol/L 3.5-5.1 [facility] Protein [Mass/Vol] 7.4 g/dL 6.4-8.[address] [facility] Sodium [Moles/Vol] 139 mmol/L 136-[address] [facility] Urea nitrogen [Mass/Vol] 27.0 mg/dL High 7.0-18.0 [facility] Urea nitrogen/Creatinine [Mass ratio] 22.3 mg/mg [facility] Laboratory - Hematology and Cell countson 04-25-2024 Band form neutrophils/100 WBC (Bld) 4.0 % 0-5 [facility] Lymphocytes/100 WBC (Bld) 15.0 % Low 20.5-60.0 [facility] Monocytes/100 WBC (Bld) 3.0 % 1.7-12.0 [facility] [place] Leukocytes [#/volume] correc gely for nucleated erythrocytes in Blood by Automated counon 04-25-2024 WBC corrected for nucl RBC Auto (Bld) [#/Vol] 13.3 10 3/uL High 4.0-11.0 [facility] MCH Auto (RBC) [Entitic mass ]on 04-25-2024 MCH (RBC) [Entitic mass] 30.1 pg 26.7-34.0 [facility] MCHC Auto (RBC) [Mass/Vol]on 04-25-2024 MCHC (RBC) [Mass/Vol] 32.0 g/dL 29.9-35.2 [facility] MCV Auto (RBC) [Entitic vol] on 04-25-2024 MCV (RBC) [Entitic vol] 93.9 fL 81.0-99.0 [facility] [place] No Panel Informationon 04-25 Troponin I High [...] Absolute Basophils (Manual) 0.00 10 3/uL 0.00-0.10 [facility] Band Neutrophils # (Manual) 0.5 10 3/uL High 0.0-0.3 [facility] Eosinophils # (Manual) 0.53 10 3/uL 0.00-0.70 [facility] Lymphocytes # (Manual) 1.99 10 3/uL 1.20-3.80 [facility] Monocytes # (Manual) 0.39 10 3/uL 0.30-0.80 [facility] Seg[facility] Neutrophils # (Manual) 9.84 10 3/uL High 1.4-6.5 [facility] Platelet mean volume Auto (B ld) [Entitic vol]on 04-25-2024 Platelet mean volume (Bld) [Entitic vol] 10.4 fL 9.5-13.5 [facility] Platelets Auto (Bld) [#/Vol] on 04-25-2024 Platelets (Bld) [#/Vol] 145 10 3/uL Low 150-450 [facility] Prothrombin time (PT)on 04-08 PT Coag (PPP) [Time] 13.5 s High 9.0-11.6 [facility] RBC Auto (Bld) [#/Vol]on RBC (Bld) [#/Vol] 4.59 10 6/uL 4.20-5.40 [facility] Segmented neutrophils/100 WB C Manual cnt (Bld)on 04-25-2024 Segmented neutrophils/100 WBC (Bld) 74.0 % [facility] Serum or plasma albumin/glob ulin mass ratioon 04-25-2024 Albumin/Globulin [Mass ratio] 1.2 {ratio} [facility] Serum or plasma anion gap de terminationon 04-25-2024 Anion gap [Moles/Vol] 9.7 mmol/L [facility] Office Visiton 03-28-2024 Follow-up visit [id number] Zoraida Barrios 1935 F Date Provider Department Center 03/28/2024 AALIYAH HENDERSON CARD [facility] Family History Problem Relation Age of Onset Hypertension Mother Family Status - Relation Status Age at Mother Level of Service:71296 PA OFFICE/OUTPATIENT ESTABLISHED LOW MDM 20 MIN Normal [facility] Basophils Auto (Bld) [#/Vol] on 12-28-2023 Basophils (Bld) [#/Vol] 0.2 10 3/uL 0.0-0.1 [facility] Basophils/100 WBC Auto (Bld) on 12-28-2023 Basophils/100 WBC (Bld) 3.4 % 0.2-2.0 [facility] [place] Eosinophils/100 WBC Auto (Bl d)on 12-28-2023 Eosinophils/100 WBC (Bld) 6.2 % 0.9-7.0 [facility] Erythrocyte distribution wid th Auto (RBC) [Ratio]on 12-28-2023 Erythrocyte distribution width (RBC) [Ratio] 14.8 % 11.0-15.0 [facility] Estimated glomerular filtrat ion rate (GFR) non- Americanon 12-28-2023 GFR/1.73 sq M.predicted among non-blacks MDRD (S/P/Bld) [Vol rate/Area] 46 mL/min/{1.73_m2} >=60 [facility] Hematocrit Auto (Bld) [Volum e fraction]on 12-28-2023 Hematocrit (Bld) [Volume fraction] 42.9 % 36.0-48.0 [facility] Hemoglobin [Mass/volume] in Bloodon 12-28-2023 Hemoglobin (Bld) [Mass/Vol] 13.7 g/dL 12.0-16.0 [facility] Laboratory - Chemistry and C hemistry - challengeon 12-28-2023 Calcium [Mass/Vol] 9.7 mg/dL 8.5-10.[address] [facility] Chloride [Moles/Vol] 106 mmol/L 98-107 [facility] CO2 [Moles/Vol] 26.1 mmol/L 21.0-32.0 [facility] Creatinine [Mass/Vol] 1.11 mg/dL 0.55-1.02 [facility] GFR/1.73 sq M.predicted MDRD (S/P/Bld) [Vol rate/Area] 56 mL/min/{1.73_m2} >=60 [facility] Glucose [Mass/Vol] 108 mg/dL 74-[address] [facility] Potassium [Moles/Vol] 3.8 mmol/L 3.5-5.1 [facility] Sodium [Moles/Vol] 139 mmol/L 136-[address] [facility] Urea nitrogen [Mass/Vol] 22.0 mg/dL 7.0-18.0 [facility] Urea nitrogen/Creatinine [Mass ratio] 19.8 mg/mg [facility] Laboratory - Hematology and Cell countson 12-28-2023 Immature granulocytes/100 WBC (Bld) 0.5 % 0.0-0.5 [facility] Leukocytes [#/volume] correc gely for nucleated erythrocytes in Blood by Automated counon 12-28-2023 WBC corrected for nucl RBC Auto (Bld) [#/Vol] 6.0 10 3/uL 4.0-11.0 [facility] Lymphocytes Auto (Bld) [#/Vo l]on 12-28-2023 Lymphocytes (Bld) [#/Vol] 2.1 10 3/uL 1.2-3.8 [facility] Lymphocytes/100 WBC Auto (Bl d)on 12-28-2023 Lymphocytes/100 WBC (Bld) 34.9 % 20.5-60.0 [facility] MCH Auto (RBC) [Entitic mass ]on 12-28-2023 MCH (RBC) [Entitic mass] 30.0 pg 26.7-34.0 [facility] MCHC Auto (RBC) [Mass/Vol]on 12-28-2023 MCHC (RBC) [Mass/Vol] 31.9 g/dL 29.9-35.2 [facility] MCV Auto (RBC) [Entitic vol] on 12-28-2023 MCV (RBC) [Entitic vol] 93.9 fL 81.0-99.0 [facility] [place] Monocytes Auto (Bld) [#/Vol] on 12-28-2023 Monocytes (Bld) [#/Vol] 0.9 10 3/uL 0.3-0.8 [facility] Monocytes/100 WBC Auto (Bld) on 12-28-2023 Monocytes/100 WBC (Bld) 15.1 % 1.7-12.0 [facility] [place] Neutrophils Auto (Bld) [#/Vo l]on 12-28-2023 Neutrophils (Bld) [#/Vol] 2.4 10 3/uL 1.4-6.5 [facility] Neutrophils/100 WBC Auto (Bl d)on 12-28-2023 Neutrophils/100 WBC (Bld) 39.9 % 43.0-75.0 [facility] No Panel Informationon 12-27 Eosinophils # (Auto) 0.4 10 3/uL 0.0-0.7 [facility] Immature Granulocyte # (Auto) 0.03 10 3/uL 0.00-0.03 [facility] Troponin I High Sensitivity 6.6 pg/mL 4.0-51.3 [facility] Comment on above: CUT-OFF POINTS HAVE [...] volume (Bld) [Entitic vol] 10.8 fL 9.5-13.5 [facility] Platelets Auto (Bld) [#/Vol] on 12-28-2023 Platelets (Bld) [#/Vol] 142 10 3/uL 150-450 [facility] RBC Auto (Bld) [#/Vol]on RBC (Bld) [#/Vol] 4.57 10 6/uL 4.20-5.40 [facility] Serum or plasma anion gap de terminationon 12-28-2023 Anion gap [Moles/Vol] 10.7 mmol/L [facility] PROF CHEM 8 (BAS METB)on Anion gap [Moles/Vol] 12.5 mmol/L Normal [facility] Comment on above: Performed By: #### B MP #### [facility] [address] [address] [address] Arden Magallon Calcium [Mass/Vol] 10.0 mg/dL Normal 8.5-10.1 [facility] Comment on above: Performed By: #### B MP #### [facility] [address] [address] [address] Arden Magallon Chloride [Moles/Vol] 105 mmol/L Normal 98-107 [facility] Comment on above: Performed By: #### B MP #### [facility] [address] [address] [address] Arden Magallon CO2 [Moles/Vol] 29.9 mmol/L Normal 21.0-32.0 [facility] Comment on above: Performed By: #### B MP #### [facility] [address] [address] [address] Arden Magallon Creatinine [Mass/Vol] 1.26 mg/dL Critically high 0.55-1.02 [facility] Comment on above: Performed By: #### B MP #### [facility] [address] [address] [address] Arden Magallon EGFR-AF [place] 49 mL/min/1.73m2 Critically low >=60 [facility] Comment on above: Performed By: #### B MP #### [facility] [address] [address] [address] Arden Magallon EGFR-NON AF [place] 40 mL/min/1.73m2 Critically low >=60 [facility] Comment on above: Performed By: #### B MP #### [facility] [address] [address] [address] Arden Magallon Glucose [Mass/Vol] 108 mg/dL Critically high 74-106 [facility] Comment on above: Performed By: #### B MP #### [facility] [address] [address] [address] Arden Magallon Potassium [Moles/Vol] 3.4 mmol/L Critically low 3.5-5.1 [facility] Comment on above: Performed By: #### B MP #### [facility] [address] [address] [address] Arden Magallon Sodium [Moles/Vol] 144 mmol/L Normal 136-145 [facility] Comment on above: Performed By: #### B MP #### [facility] [address] [address] [address] Arden Magallon Urea nitrogen [Mass/Vol] 28.0 mg/dL Critically high 7.0-18.0 [facility] Comment on above: Performed By: #### B MP #### [facility] [address] [address] [address] Arden Magallon Urea nitrogen/Creatinine [Mass ratio] 22.2 mg/mg Normal [facility] Comment on above: Performed By: #### B MP #### [facility] [address] [address] [address] Arden Magallon CARDIAC CINDY 3-6on 2 CK [Catalytic activity/Vol] 27 U/L Normal 26-192 [facility] Comment on above: Performed By: #### B MP #### [facility] [address] [address] [address] Arden Magallon CK.MB [Mass/Vol] 0.84 ng/mL Normal <=3.60 [facility] Comment on above: Performed By: #### B MP #### [facility] [address] [address] [address] Arden Magallon HSTROP 12.4 pg/mL Normal 4.0-51.3 [facility] Comment on above: Result Comment: CUT- OFF POINTS HAVE BEEN ESTABLISHED BASED ON THE FOURTH UNIVERSAL DEFINITIONS OF MYOCARDIAL INFARCTION. THE UPPER REFERENCE LIMIT (URL) OF TROPONIN, DEFINED THE 99TH PERCENTILE OF cTnI DISTRIBUTION IN A REFERENCE POPULATION, HAS BEEN CONFIRMED THE DECISION THRESHOLD FOR [place] DIAGNOSIS. Performed By: #### B MP #### [facility] [address] [place] [address] Dr. Arden Magallon CARDIAC CINDY ADMITon 022 CK [Catalytic activity/Vol] 42 U/L Normal 26-192 [facility] Comment on above: Performed By: #### B MP #### [facility] [address] [place] [address] Dr. Arden Magallon CK.MB [Mass/Vol] 0.82 ng/mL Normal <=3.60 [facility] Comment on above: Performed By: #### B MP #### [facility] [address] [place] [address] Dr. Arden Magallon HSTROP 9.8 pg/mL Normal 4.0-51.3 [facility] Comment on above: Result Comment: CUT- OFF POINTS HAVE BEEN ESTABLISHED BASED ON THE FOURTH UNIVERSAL DEFINITIONS OF MYOCARDIAL INFARCTION. THE UPPER REFERENCE LIMIT (URL) OF TROPONIN, DEFINED THE 99TH PERCENTILE OF cTnI DISTRIBUTION IN A REFERENCE POPULATION, HAS BEEN CONFIRMED THE DECISION THRESHOLD FOR [place] DIAGNOSIS. Performed By: #### B MP #### [facility] [address] [place] [address] Dr. Arden Magallon IKE 50 ng/mL Normal 9-82 [facility] Comment on above: Performed By: #### B MP #### [facility] [address] [place] [address] Dr. Arden Magallon CBC AUTO DIFFon 09-30-2022 BASO # 0.2 103/ul Critically high 0.0-0.1 [facility] Comment on above: Performed By: #### C BC #### [facility] [address] [place] [address] Dr. Arden Magallon Basophils/100 WBC (Bld) 2.2 % Critically high 0.2-2.0 [facility] Comment on above: Performed By: #### C BC #### [facility] [address] [place] [address] Dr. Arden Magallon EO # 1.3 103/ul Critically high 0.0-0.7 [facility] Comment on above: Performed By: #### C BC #### [facility] [address] [place] [address] Dr. Arden Magallon Eosinophils/100 WBC (Bld) 16.5 % Critically high 0.9-7.0 [facility] Comment on above: Performed By: #### C BC #### [facility] [address] [place] [address] Dr. Arden Magallon Erythrocyte distribution width (RBC) [Ratio] 14.3 % Normal 11.0-15.0 [facility] Comment on above: Performed By: #### C BC #### [facility] [address] [place] [address] Dr. Arden Magallon Hematocrit (Bld) [Volume fraction] 38.3 % Normal 36.0-48.0 [facility] Comment on above: Performed By: #### C BC #### [facility] [address] [place] [address] Dr. Arden Magallon Hemoglobin (Bld) [Mass/Vol] 12.6 g/dL Normal 12.0-16.0 [facility] Comment on above: Performed By: #### C BC #### [facility] [address] [place] [address] Dr. Arden Magallon IG # 0.03 10e3/ul Normal 0.00-0.03 [facility] Comment on above: Performed By: #### C BC #### [facility] [address] [place] [address] Dr. Arden Magallon IG % 0.4 % Normal 0.0-0.5 [facility] Comment on above: Performed By: #### C BC #### [facility] [address] [place] [address] Dr. Arden Magallon LYMPH # 2.4 103/ul Normal 1.2-3.8 [facility] Comment on above: Performed By: #### C BC #### [facility] [address] [place] [address] Dr. Arden Magallon Lymphocytes/100 WBC (Bld) 30.0 % Normal 20.5-60.0 [facility] Comment on above: Performed By: #### C BC #### [facility] [address] [place] [address] Dr. Arden Magallon MANUAL DIFF REQ NO Normal [facility] Comment on above: Performed By: #### C BC #### [facility] [address] [place] [address] Dr. Arden Magallon MCH (RBC) [Entitic mass] 30.7 pg Normal 26.7-34.0 [facility] Comment on above: Performed By: #### C BC #### [facility] [address] [place] [address] Dr. Arden Magallon MCHC (RBC) [Mass/Vol] 32.9 g/dL Normal 29.9-35.2 [facility] Comment on above: Performed By: #### C BC #### [facility] [address] [place] [address] Dr. Arden Magallon MCV (RBC) [Entitic vol] 93.4 fL Normal 81.0-99.0 [facility] Comment on above: Performed By: #### C BC #### [facility] [address] [place] [address] Dr. Arden Magallon MONO # 1.1 103/ul Critically high 0.3-0.8 [facility] Comment on above: Performed By: #### C BC #### [facility] [address] [place] [address] Dr. Arden Magallon Monocytes/100 WBC (Bld) 14.2 % Critically high 1.7-12. 0 [facility] Comment on above: Performed By: #### C BC #### [facility] [address] [place] [address] Dr. Arden Magallon NEUT # 2.9 103/ul Normal 1.4-6.5 [facility] Comment on above: Performed By: #### C BC #### [facility] [address] [place] [address] Dr. Arden Magallon Neutrophils/100 WBC (Bld) 36.7 % Critically low 43.0-75.0 [facility] Comment on above: Performed By: #### C BC #### [facility] [address] [place] [address] Dr. Arden Magallon Platelet mean volume (Bld) [Entitic vol] 11.4 fL Normal 9.5-13.5 [facility] Comment on above: Performed By: #### C BC #### [facility] [address] [place] [address] Dr. Arden Magallon PLT 162 103/ul Normal 150-450 [facility] Comment on above: Performed By: #### C BC #### [facility] [address] [place] [address] Dr. Arden Magallon RBC 4.10 106/ul Critically low 4.20-5.40 [facility] Comment on above: Performed By: #### C BC #### [facility] [address] [place] [address] Dr. Arden Magallon WBC 8.0 103/ul Normal 4.0-11.0 [facility] Comment on above: Performed By: #### C BC #### [facility] [address] [place] [address] Dr. Arden Magallon PROF CHEM 8 (BAS METB)on Anion gap [Moles/Vol] 11.8 mmol/L Normal [facility] Comment on above: Performed By: #### B MP #### [facility] [address] [place] [address] Dr. Arden Magallon Calcium [Mass/Vol] 9.7 mg/dL Normal 8.5-10.1 [facility] Comment on above: Performed By: #### B MP #### [facility] [address] [place] [address] Dr. Arden Magallon Chloride [Moles/Vol] 105 mmol/L Normal 98-107 [facility] Comment on above: Performed By: #### B MP #### [facility] [address] [place] [address] Dr. Arden Magallon CO2 [Moles/Vol] 25.0 mmol/L Normal 21.0-32.0 [facility] Comment on above: Performed By: #### B MP #### [facility] [address] [address] [address] Arden Magallon Creatinine [Mass/Vol] 1.07 mg/dL Critically high 0.55-1.02 [facility] Comment on above: Performed By: #### B MP #### [facility] [address] [address] [address] Arden Magallon EGFR-AF [place] 59 mL/min/1.73m2 Critically low >=60 [facility] Comment on above: Performed By: #### B MP #### [facility] [address] [address] [address] Arden Magallon EGFR-NON AF [place] 49 mL/min/1.73m2 Critically low >=60 [facility] Comment on above: Performed By: #### B MP #### [facility] [address] [address] [address] Arden Magallon Glucose [Mass/Vol] 106 mg/dL Normal 74-106 [facility] Comment on above: Performed By: #### B MP #### [facility] [address] [address] [address] Arden Magallon Potassium [Moles/Vol] 3.8 mmol/L Normal 3.5-5.1 [facility] Comment on above: Performed By: #### B MP #### [facility] [address] [address] [address] Arden Magallon Sodium [Moles/Vol] 138 mmol/L Normal 136-145 [facility] Comment on above: Performed By: #### B MP #### [facility] [address] [address] [address] Arden Magallon Urea nitrogen [Mass/Vol] 18.0 mg/dL Normal 7.0-18.0 [facility] Comment on above: Performed By: #### B MP #### [facility] [address] [address] [address] Arden Magallon Urea nitrogen/Creatinine [Mass ratio] 16.8 mg/mg Normal [facility] Comment on above: Performed By: #### B MP #### [facility] [address] [place] [address] Dr. Arden Magallon CBC AUTO DIFFon 09-26-2022 BASO # 0.2 103/ul Critically high 0.0-0.1 [facility] Comment on above: Performed By: #### C BC #### [facility] [address] [place] [address] Dr. Arden Magallon Basophils/100 WBC (Bld) 2.1 % Critically high 0.2-2.0 [facility] Comment on above: Performed By: #### C BC #### [facility] [facility] [address] [place] [address] Dr. Arden Magallon EO # 1.5 103/ul Critically high 0.0-0.7 [facility] Comment on above: Performed By: #### C BC #### [facility] [address] [place] [address] Dr. Arden Magallon Eosinophils/100 WBC (Bld) 16.6 % Critically high 0.9-7.0 [facility] Comment on above: Performed By: #### C BC #### [facility] [address] [place] [address] Dr. Arden Magallon Erythrocyte distribution width (RBC) [Ratio] 14.1 % Normal 11.0-15.0 [facility] Comment on above: Performed By: #### C BC #### [facility] [address] [place] [address] Dr. Arden Magallon Hematocrit (Bld) [Volume fraction] 37.7 % Normal 36.0-48.0 [facility] Comment on above: Performed By: #### C BC #### [facility] [address] [place] [address] Dr. Arden Magallon Hemoglobin (Bld) [Mass/Vol] 12.5 g/dL Normal 12.0-16.0 [facility] Comment on above: Performed By: #### C BC #### [facility] [address] [place] [address] Dr. Arden Magallon IG # 0.04 10e3/ul Critically high 0.00-0.03 [facility] Comment on above: Performed By: #### C BC #### [facility] [address] [place] [address] Dr. Arden Magallon IG % 0.4 % Normal 0.0-0.5 [facility] Comment on above: Performed By: #### C BC #### [facility] [address] [place] [address] Dr. Arden Magallon LYMPH # 1.8 103/ul Normal 1.2-3.8 [facility] Comment on above: Performed By: #### C BC #### [facility] [address] [place] [address] Dr. Arden Magallon Lymphocytes/100 WBC (Bld) 19.6 % Critically low 20.5-60.0 [facility] Comment on above: Performed By: #### C BC #### [facility] [address] [place] [address] Dr. Arden Magallon MANUAL DIFF REQ NO Normal [facility] Comment on above: Performed By: #### C BC #### [facility] [address] [place] [address] Dr. Arden Magallon MCH (RBC) [Entitic mass] 31.1 pg Normal 26.7-34.0 [facility] Comment on above: Performed By: #### C BC #### [facility] [address] [place] [address] Dr. Arden Magallon MCHC (RBC) [Mass/Vol] 33.2 g/dL Normal 29.9-35.2 [facility] Comment on above: Performed By: #### C BC #### [facility] [address] [place] [address] Dr. Arden Magallon MCV (RBC) [Entitic vol] 93.8 fL Normal 81.0-99.0 [facility] Comment on above: Performed By: #### C BC #### [facility] [address] [place] [address] Dr. Arden Magallon MONO # 1.1 103/ul Critically high 0.3-0.8 [facility] Comment on above: Performed By: #### C BC #### [facility] [address] [place] [address] Dr. Arden Magallon Monocytes/100 WBC (Bld) 12.1 % Critically high 1.7-12. 0 [facility] Comment on above: Performed By: #### C BC #### [facility] [address] [place] [address] Dr. Arden Magallon NEUT # 4.6 103/ul Normal 1.4-6.5 [facility] Comment on above: Performed By: #### C BC #### [facility] [address] [place] [address] Dr. Arden Magallon Neutrophils/100 WBC (Bld) 49.2 % Normal 43.0-75.0 [facility] Comment on above: Performed By: #### C BC #### [facility] [address] [place] [address] Dr. Arden Magallon Platelet mean volume (Bld) [Entitic vol] 10.8 fL Normal 9.5-13.5 [facility] Comment on above: Performed By: #### C BC #### [facility] [address] [place] [address] Dr. Arden Magallon PLT 149 103/ul Critically low 150-450 [facility] Comment on above: Performed By: #### C BC #### [facility] [address] [place] [address] Dr. Arden Magallon RBC 4.02 106/ul Critically low 4.20-5.40 [facility] Comment on above: Performed By: #### C BC #### [facility] [address] [place] [address] Dr. Arden Magallon WBC 9.3 103/ul Normal 4.0-11.0 [facility] Comment on above: Performed By: #### C BC #### [facility] [address] [place] [address] Dr. Arden Magallon Covid-19 PCR ([facility])on 09-08 SARS-CoV-2 (COVID-19) RNA ISABELLA+probe Ql (Unsp spec) Not detected Normal NOT DETECTED [facility] Comment on above: Result Comment: This test is not yet approved or cleared by the [place] FDA. When there are no FDA-approved or cleared tests available, and other criteria are met, FDA can make tests available under an emergency access mechanism called an Emergency Use Authorization (EUA). The EUA for this test is supported by the [employer] of [employer] and Human Service's (HHS's) declaration [...] SARS-CoV-2. Performed By: #### C BC #### [facility] [address] [place] [address] Dr. Arden Magallon INFLUENZA A AND B AGon 09-26 [facility] Normal [facility] Comment on above: Result Comment: Nega tive for Flu A protein angiten. Infection due to Flu A cannot be ruled out. Flu A angiten in the sample may be below the detection limit of the test. Performed By: #### C BC #### [facility] [address] [place] [address] Dr. Arden Magallon INFLUBNEG SEE BELOW Normal [facility] Comment on above: Result Comment: Nega tive for Flu B protein antigen. Infection due to Flu B cannot be ruled out. Flu B antigen in the sample may be below the detection limit of the test. Performed By: #### C BC #### [facility] [address] [place] [address] Dr. Arden Magallon INFLUENZA A AG Negative Normal NEGATIVE SEE COMMENT [facility] Comment on above: Performed By: #### C BC #### [facility] [address] [place] [address] Dr. Arden Magallon INFLUENZA B AG Negative Normal NEGATIVE SEE COMMENT [facility] Comment on above: Performed By: #### C BC #### [facility] [address] [place] [address] Dr. Arden Magallon INTERNAL CONTROLS Within Normal Limits Normal Wi thin Normal Limits [facility] Comment on above: Performed By: #### C BC #### [facility] [address] [place] [address] Dr. Arden Magallon PROF CHEM 8 (BAS METB)on Anion gap [Moles/Vol] 10.8 mmol/L Normal [facility] Comment on above: Performed By: #### P T, DDIM #### [facility] [address] [place] [address] Dr. Arden Magallon Calcium [Mass/Vol] 9.3 mg/dL Normal 8.5-10.1 [facility] Comment on above: Performed By: #### P T, DDIM #### [facility] [address] [place] [address] Dr. Arden Magallon Chloride [Moles/Vol] 107 mmol/L Normal 98-107 [facility] Comment on above: Performed By: #### P T, DDIM #### [facility] [address] [place] [address] Dr. Arden Magallon CO2 [Moles/Vol] 28.0 mmol/L Normal 21.0-32.0 [facility] Comment on above: Performed By: #### P T, DDIM #### [facility] [address] [place] [address] Dr. Arden Magallon Creatinine [Mass/Vol] 0.98 mg/dL Normal 0.55-1.02 [facility] Comment on above: Performed By: #### P T, DDIM #### [facility] [address] [place] [address] Dr. Arden Magallon EGFR-AF [place]ER >60 Normal >=60 [facility] Comment on above: Performed By: #### P T, DDIM #### [facility] [address] [place], [place] [id number] Dr. Arden Magallon EGFR-NON AF [place]ER 54 mL/min/1.73m2 Critically low >=60 [facility] Comment on above: Performed By: #### P T, DDIM #### [facility] [address] [place] [address] Dr. Arden Magallon Glucose [Mass/Vol] 111 mg/dL Critically high 74-106 [facility] Comment on above: Performed By: #### P T, DDIM #### [facility] [address] [place] [address] Dr. Arden Magallon Potassium [Moles/Vol] 3.8 mmol/L Normal 3.5-5.1 [facility] Comment on above: Performed By: #### P T, DDIM #### [facility] [address] [place] [address] Dr. Arden Magallon Sodium [Moles/Vol] 142 mmol/L Normal 136-145 [facility] Comment on above: Performed By: #### P T, DDIM #### [facility] [address] [place] [address] Dr. Arden Magallon Urea nitrogen [Mass/Vol] 15.0 mg/dL Normal 7.0-18.0 [facility] Comment on above: Performed By: #### P T, DDIM #### [facility] [address] [place] [address] Dr. Arden Magallon Urea nitrogen/Creatinine [Mass ratio] 15.3 mg/mg Normal [facility] Comment on above: Performed By: #### P T, DDIM #### [facility] [address] [place] [address] Dr. Arden Magallon XR CHEST 1 Von [...] HARJINDERALVIN RAMIREZ Date: 2022-09-26 10:22 Normal [facility] CBC AUTO DIFFon 09-21-2022 BASO # 0.2 103/ul Critically high 0.0-0.1 [facility] Comment on above: Performed By: #### C BC #### [facility] [address] [address] [address] Arden Magallon Basophils/100 WBC (Bld) 2.0 % Normal 0.2-2.0 [facility] Comment on above: Performed By: #### C BC #### [facility] [address] [place] [address] Dr. Arden Magallon EO # 0.8 103/ul Critically high 0.0-0.7 [facility] Comment on above: Performed By: #### C BC #### [facility] [address] [address] [address] Arden Magallon Eosinophils/100 WBC (Bld) 9.7 % Critically high 0.9-7.0 [facility] Comment on above: Performed By: #### C BC #### [facility] [address] [place] [address] Dr. Arden Magallon Erythrocyte distribution width (RBC) [Ratio] 14.2 % Normal 11.0-15.0 [facility] Comment on above: Performed By: #### C BC #### [facility] [address] [place] [address] Dr. Arden Magallon Hematocrit (Bld) [Volume fraction] 39.2 % Normal 36.0-48.0 [facility] Comment on above: Performed By: #### C BC #### [facility] [address] [place] [address] Dr. Arden Magallon Hemoglobin (Bld) [Mass/Vol] 12.7 g/dL Normal 12.0-16.0 [facility] Comment on above: Performed By: #### C BC #### [facility] [address] [place] [address] Dr. Arden Magallon IG # 0.04 10e3/ul Critically high 0.00-0.03 [facility] Comment on above: Performed By: #### C BC #### [facility] [address] [place] [address] Dr. Arden Magallon IG % 0.5 % Normal 0.0-0.5 [facility] Comment on above: Performed By: #### C BC #### [facility] [address] [place] [address] Dr. Arden Magallon LYMPH # 1.7 103/ul Normal 1.2-3.8 [facility] Comment on above: Performed By: #### C BC #### [facility] [address] [place] [address] Dr. Arden Magallon Lymphocytes/100 WBC (Bld) 19.2 % Critically low 20.5-60.0 [facility] Comment on above: Performed By: #### C BC #### [facility] [address] [place] [address] Dr. Arden Magallon MANUAL DIFF REQ NO Normal [facility] Comment on above: Performed By: #### C BC #### [facility] [address] [place] [address] Dr. Arden Magallon MCH (RBC) [Entitic mass] 31.1 pg Normal 26.7-34.0 [facility] Comment on above: Performed By: #### C BC #### [facility] [address] [place] [address] Dr. Arden Magallon MCHC (RBC) [Mass/Vol] 32.4 g/dL Normal 29.9-35.2 [facility] Comment on above: Performed By: #### C BC #### [facility] [address] [place] [address] Dr. Arden Magallon MCV (RBC) [Entitic vol] 96.1 fL Normal 81.0-99.0 [facility] Comment on above: Performed By: #### C BC #### [facility] [address] [place] [address] Dr. Arden Magallon MONO # 0.8 103/ul Normal 0.3-0.8 [facility] Comment on above: Performed By: #### C BC #### [facility] [address] [place] [address] Dr. Arden Magallon Monocytes/100 WBC (Bld) 9.5 % Normal 1.7-12.0 [facility] Comment on above: Performed By: #### C BC #### [facility] [address] [place] [address] Dr. Arden Magallon NEUT # 5.2 103/ul Normal 1.4-6.5 [facility] Comment on above: Performed By: #### C BC #### [facility] [address] [place] [address] Dr. Arden Magallon Neutrophils/100 WBC (Bld) 59.1 % Normal 43.0-75.0 [facility] Comment on above: Performed By: #### C BC #### [facility] [address] [place] [address] Dr. Arden Magallon Platelet mean volume (Bld) [Entitic vol] 11.0 fL Normal 9.5-13.5 [facility] Comment on above: Performed By: #### C BC #### [facility] [address] [place] [address] Dr. Arden Magallon PLT 167 103/ul Normal 150-450 [facility] Comment on above: Performed By: #### C BC #### [facility] [address] [place] [address] Dr. Arden Magallon RBC 4.08 106/ul Critically low 4.20-5.40 [facility] Comment on above: Performed By: #### C BC #### [facility] [address] [place] [address] Dr. Arden Magallon WBC 8.7 103/ul Normal 4.0-11.0 [facility] Comment on above: Performed By: #### C BC #### [facility] [address] [place] [address] Dr. Arden Magallon PROF CHEM 8 (BAS METB)on Anion gap [Moles/Vol] 10.4 mmol/L Normal [facility] Comment on above: Performed By: #### B MP #### [facility] [address] [address] [address] Arden Magallon Calcium [Mass/Vol] 9.9 mg/dL Normal 8.5-10.1 [facility] Comment on above: Performed By: #### B MP #### [facility] [address] [address] [address] Arden Magallon Chloride [Moles/Vol] 104 mmol/L Normal 98-107 [facility] Comment on above: Performed By: #### B MP #### [facility] [address] [address] [address] Arden Magallon CO2 [Moles/Vol] 28.0 mmol/L Normal 21.0-32.0 [facility] Comment on above: Performed By: #### B MP #### [facility] [address] [address] [address] Arden Magallon Creatinine [Mass/Vol] 1.20 mg/dL Critically high 0.55-1.02 [facility] Comment on above: Performed By: #### B MP #### [facility] [address] [address] [address] Arden Magallon EGFR-AF [place] 52 mL/min/1.73m2 Critically low >=60 [facility] Comment on above: Performed By: #### B MP #### [facility] [address] [address] [address] Arden Magallon EGFR-NON AF [place] 43 mL/min/1.73m2 Critically low >=60 [facility] Comment on above: Performed By: #### B MP #### [facility] [address] [address] [address] Arden Magallon Glucose [Mass/Vol] 133 mg/dL Critically high 74-106 [facility] Comment on above: Performed By: #### B MP #### [facility] [address] [address] [address] Arden Magallon Potassium [Moles/Vol] 3.4 mmol/L Critically low 3.5-5.1 [facility] Comment on above: Performed By: #### B MP #### [facility] [address] [place] [address] Dr. Arden Magallon Sodium [Moles/Vol] 139 mmol/L Normal 136-145 [facility] Comment on above: Performed By: #### B MP #### [facility] [address] [place] [address] Dr. Arden Magallon Urea nitrogen [Mass/Vol] 19.0 mg/dL Critically high 7.0-18.0 [facility] Comment on above: Performed By: #### B MP #### [facility] [address] [place] [address] Dr. Arden Magallon Urea nitrogen/Creatinine [Mass ratio] 15.8 mg/mg Normal [facility] Comment on above: Performed By: #### B MP #### [facility] [address] [place] [address] Dr. Arden Magallon TSHon 09-21-2022 TSH 1.918 uIU/mL Normal 0.358-3.740 [facility] Comment on above: Performed By: #### B MP #### [facility] [address] [place] [address] Dr. Arden Magallon BNPon 09-18-2022 Natriuretic peptide B (Bld) [Mass/Vol] 366.0 pg/mL Normal <=1,800.0 [facility] Comment on above: Performed By: #### B [employer], CMP #### [facility] [address] [place] [address] Dr. Arden Magallon CBC AUTO DIFFon 09-18-2022 BASO # 0.1 103/ul Normal 0.0-0.1 [facility] Comment on above: Performed By: #### C BC #### [facility] [address] [place] [address] Dr. Arden Magallon Basophils/100 WBC (Bld) 1.7 % Normal 0.2-2.0 [facility] Comment on above: Performed By: #### C BC #### [facility] [address] [place] [address] Dr. Arden Magallon EO # 0.7 103/ul Normal 0.0-0.7 [facility] Comment on above: Performed By: #### C BC #### [facility] [address] [place] [address] Dr. Arden Magallon Eosinophils/100 WBC (Bld) 9.1 % Critically high 0.9-7.0 [facility] Comment on above: Performed By: #### C BC #### [facility] [address] [place] [address] Dr. Arden Magallon Erythrocyte distribution width (RBC) [Ratio] 14.4 % Normal 11.0-15.0 [facility] Comment on above: Performed By: #### C BC #### [facility] [address] [place] [address] Dr. Arden Magallon Hematocrit (Bld) [Volume fraction] 39.0 % Normal 36.0-48.0 [facility] Comment on above: Performed By: #### C BC #### [facility] [address] [place] [address] Dr. Arden Magallon Hemoglobin (Bld) [Mass/Vol] 12.8 g/dL Normal 12.0-16.0 [facility] Comment on above: Performed By: #### C BC #### [facility] [address] [place] [address] Dr. Arden Magallon IG # 0.02 10e3/ul Normal 0.00-0.03 [facility] Comment on above: Performed By: #### C BC #### [facility] [address] [place] [address] Dr. Arden Magallon IG % 0.3 % Normal 0.0-0.5 [facility] Comment on above: Performed By: #### C BC #### [facility] [address] [place] [address] Dr. Arden Magallon LYMPH # 1.8 103/ul Normal 1.2-3.8 [facility] Comment on above: Performed By: #### C BC #### [facility] [address] [place] [address] Dr. Ardne Magallon Lymphocytes/100 WBC (Bld) 23.6 % Normal 20.5-60.0 [facility] Comment on above: Performed By: #### C BC #### [facility] [address] [place] [address] Dr. Arden Magallon MANUAL DIFF REQ NO Normal [facility] Comment on above: Performed By: #### C BC #### [facility] [address] [place] [address] Dr. Arden Magallon MCH (RBC) [Entitic mass] 31.0 pg Normal 26.7-34.0 [facility] Comment on above: Performed By: #### C BC #### [facility] [address] [place] [address] Dr. Arden Magallon MCHC (RBC) [Mass/Vol] 32.8 g/dL Normal 29.9-35.2 [facility] Comment on above: Performed By: #### C BC #### [facility] [address] [place] [address] Dr. Arden Magallon MCV (RBC) [Entitic vol] 94.4 fL Normal 81.0-99.0 [facility] Comment on above: Performed By: #### C BC #### [facility] [address] [place] [address] Dr. Arden Magallon MONO # 1.1 103/ul Critically high 0.3-0.8 [facility] Comment on above: Performed By: #### C BC #### [facility] [address] [place] [address] Dr. Arden Magallon Monocytes/100 WBC (Bld) 15.2 % Critically high 1.7-12. 0 [facility] Comment on above: Performed By: #### C BC #### [facility] [address] [place] [address] Dr. Arden Magallon NEUT # 3.8 103/ul Normal 1.4-6.5 [facility] Comment on above: Performed By: #### C BC #### [facility] [address] [place] [address] Dr. Arden Magallon Neutrophils/100 WBC (Bld) 50.1 % Normal 43.0-75.0 [facility] Comment on above: Performed By: #### C BC #### [facility] [address] [place] [address] Dr. Arden Magallon Platelet mean volume (Bld) [Entitic vol] 11.0 fL Normal 9.5-13.5 [facility] Comment on above: Performed By: #### C BC #### [facility] [address] [address] [address] Arden Magallon PLT 149 103/ul Critically low 150-450 [facility] Comment on above: Performed By: #### C BC #### [facility] [address] [place] [address] Dr. Arden Magallon RBC 4.13 106/ul Critically low 4.20-5.40 [facility] Comment on above: Performed By: #### C BC #### [facility] [address] [place] [address] Dr. Arden Magallon WBC 7.5 103/ul Normal 4.0-11.0 [facility] Comment on above: Performed By: #### C BC #### [facility] [address] [place] [address] Dr. Arden Magallon D-DIMERon 09-18-2022 D-DIMER 0.32 mg/L FEU Normal <=0.59 [facility] Comment on above: Performed By: #### P T, DDIM #### [facility] [address] [place] [address] Dr. Arden Magallon D-DIMER COMMENTS SEE BELOW Normal [facility] Comment on above: Result Comment: Incr eases [...] Performed By: #### P T, DDIM #### [facility] [address] [address] [address] Arden Magallon PROF 14(COMP METB)on 022 Albumin [Mass/Vol] 3.5 g/dL Normal 3.4-5.0 [facility] Comment on above: Performed By: #### B TANNING SOLUTION MAKER, CMP #### [facility] [address] [address] [address] Arden Magallon Albumin/Globulin [Mass ratio] 1.2 {ratio} Normal [facility] Comment on above: Performed By: #### B TANNING SOLUTION MAKER, CMP #### [facility] [address] [place] [address] Dr. Arden Magallon ALP [Catalytic activity/Vol] 57 U/L Normal 46-116 [facility] Comment on above: Performed By: #### B TANNING SOLUTION MAKER, CMP #### [facility] [address] [place] [address] Dr. Arden Magallon ALT [Catalytic activity/Vol] 16 U/L Normal 14-59 [facility] Comment on above: Performed By: #### B TANNING SOLUTION MAKER, CMP #### [facility] [address] [place] [address] Dr. Arden Magallon Anion gap [Moles/Vol] 9.1 mmol/L Normal [facility] Comment on above: Performed By: #### B TANNING SOLUTION MAKER, CMP #### [facility] [address] [place] [address] Dr. Arden Magallon AST [Catalytic activity/Vol] 17 U/L Normal 15-37 [facility] Comment on above: Performed By: #### B TANNING SOLUTION MAKER, CMP #### [facility] [address] [place] [address] Dr. Arden Magallon Bilirubin [Mass/Vol] 0.3 mg/dL Normal 0.2-1.0 [facility] Comment on above: Performed By: #### B TANNING SOLUTION MAKER, CMP #### [facility] [address] [place] [address] Dr. Arden Magallon Calcium [Mass/Vol] 9.6 mg/dL Normal 8.5-10.1 [facility] Comment on above: Performed By: #### B TANNING SOLUTION MAKER, CMP #### [facility] [address] [address] [address] Arden Magallon Chloride [Moles/Vol] 106 mmol/L Normal 98-107 [facility] Comment on above: Performed By: #### B TANNING SOLUTION MAKER, CMP #### [facility] [address] [address] [address] Arden Magallon CO2 [Moles/Vol] 24.9 mmol/L Normal 21.0-32.0 [facility] Comment on above: Performed By: #### B TANNING SOLUTION MAKER, CMP #### [facility] [address] [address] [address] rAden Magallon Creatinine [Mass/Vol] 1.06 mg/dL Critically high 0.55-1.02 [facility] Comment on above: Performed By: #### B TANNING SOLUTION MAKER, CMP #### [facility] [address] [address] [address] Arden Magallon EGFR-AF CA[place] ISLANDER =60 Normal >=60 [facility] Comment on above: Performed By: #### B TANNING SOLUTION MAKER, CMP #### [facility] [address] [address] [address] Arden Magallon EGFR-NON AF [place]ER 49 mL/min/1.73m2 Critically low >=60 [facility] Comment on above: Performed By: #### B TANNING SOLUTION MAKER, CMP #### [facility] [address] [address] [address] Arden Magallon Globulin (S) [Mass/Vol] 3.0 g/dL Normal [facility] Comment on above: Performed By: #### B TANNING SOLUTION MAKER, CMP #### [facility] [address] [address] [address] Arden Magallon Glucose [Mass/Vol] 111 mg/dL Critically high 74-106 [facility] Comment on above: Performed By: #### B TANNING SOLUTION MAKER, CMP #### [facility] [address] [address] [address] Arden Magallon Potassium [Moles/Vol] 4.0 mmol/L Normal 3.5-5.1 [facility] Comment on above: Performed By: #### B TANNING SOLUTION MAKER, CMP #### [facility] [address] [address] [address] Arden Magallon Protein [Mass/Vol] 6.5 g/dL Normal 6.4-8.2 [facility] Comment on above: Performed By: #### B TANNING SOLUTION MAKER, CMP #### [facility] [address] [address] [address] Arden Magallon Sodium [Moles/Vol] 136 mmol/L Normal 136-145 [facility] Comment on above: Performed By: #### B TANNING SOLUTION MAKER, CMP #### [facility] [address] [address] [address] Arden Magallon Urea nitrogen [Mass/Vol] 16.0 mg/dL Normal 7.0-18.0 [facility] Comment on above: Performed By: #### B TANNING SOLUTION MAKER, CMP #### [facility] [address] [address] [address] Arden Magallon Urea nitrogen/Creatinine [Mass ratio] 15.1 mg/mg Normal [facility] Comment on above: Performed By: #### B TANNING SOLUTION MAKER, CMP #### [facility] [address] [address] [address] Arden Magallon TROPONIN, HIGH SENSITIVITYon 09-18-2022 HSTROP 8.3 pg/mL Normal 4.0-51.3 [facility] Comment on above: Result Comment: CUT- OFF POINTS HAVE BEEN ESTABLISHED BASED ON THE FOURTH UNIVERSAL DEFINITIONS OF MYOCARDIAL INFARCTION. THE UPPER REFERENCE LIMIT (URL) OF TROPONIN, DEFINED THE 99TH PERCENTILE OF cTnI DISTRIBUTION IN A REFERENCE POPULATION, HAS BEEN CONFIRMED THE DECISION THRESHOLD FOR [place] DIAGNOSIS. Performed By: #### B TANNING SOLUTION MAKER, CMP #### [facility] [address] [address] [address] Arden Magallon XR CHEST 1 Von [...] BERNIE NAVARRO Date: 2022-09-18 16:11 Normal [facility] CBC AUTO DIFFon 09-11-2022 BASO # 0.1 103/ul Normal 0.0-0.1 [facility] Comment on above: Performed By: #### B MP #### [facility] [address] [address] [address] Arden Magallon Basophils/100 WBC (Bld) 2.3 % Critically high 0.2-2.0 [facility] Comment on above: Performed By: #### B MP #### [facility] [address] [address] [address] Arden Magallon EO # 0.5 103/ul Normal 0.0-0.7 [facility] Comment on above: Performed By: #### B MP #### [facility] [address] [address] [address] Arden Magallon Eosinophils/100 WBC (Bld) 8.0 % Critically high 0.9-7.0 [facility] Comment on above: Performed By: #### B MP #### [facility] [address] [address] [address] Arden Magallon Erythrocyte distribution width (RBC) [Ratio] 13.8 % Normal 11.0-15.0 [facility] Comment on above: Performed By: #### B MP #### [facility] [address] [address] [address] Arden Magallon Hematocrit (Bld) [Volume fraction] 40.5 % Normal 36.0-48.0 [facility] Comment on above: Performed By: #### B MP #### [facility] [address] [place] [address] Dr. Arden Magallon Hemoglobin (Bld) [Mass/Vol] 13.5 g/dL Normal 12.0-16.0 [facility] Comment on above: Performed By: #### B MP #### [facility] [address] [place] [address] Dr. Arden Magallon IG # 0.01 10e3/ul Normal 0.00-0.03 [facility] Comment on above: Performed By: #### B MP #### [facility] [address] [place] [address] Dr. Arden Magallon IG % 0.2 % Normal 0.0-0.5 [facility] Comment on above: Performed By: #### B MP #### [facility] [address] [place] [address] Dr. Arden Magallon LYMPH # 1.5 103/ul Normal 1.2-3.8 [facility] Comment on above: Performed By: #### B MP #### [facility] [address] [place] [address] Dr. Arden Magallon Lymphocytes/100 WBC (Bld) 24.9 % Normal 20.5-60.0 [facility] Comment on above: Performed By: #### B MP #### [facility] [address] [place] [address] Dr. Arden Magallon MANUAL DIFF REQ NO Normal [facility] Comment on above: Performed By: #### B MP #### [facility] [address] [place] [address] Dr. Arden Magallon MCH (RBC) [Entitic mass] 31.1 pg Normal 26.7-34.0 [facility] Comment on above: Performed By: #### B MP #### [facility] [address] [place] [address] Dr. Arden Magallon MCHC (RBC) [Mass/Vol] 33.3 g/dL Normal 29.9-35.2 [facility] Comment on above: Performed By: #### B MP #### [facility] [address] [place] [address] Dr. Arden Magallon MCV (RBC) [Entitic vol] 93.3 fL Normal 81.0-99.0 [facility] Comment on above: Performed By: #### B MP #### [facility] [address] [address] [address] Arden Magallon MONO # 1.0 103/ul Critically high 0.3-0.8 [facility] Comment on above: Performed By: #### B MP #### [facility] [address] [address] [address] Arden Magallon Monocytes/100 WBC (Bld) 16.0 % Critically high 1.7-12. 0 [facility] Comment on above: Performed By: #### B MP #### [facility] [address] [place] [address] Dr. Arden Magallon NEUT # 2.9 103/ul Normal 1.4-6.5 [facility] Comment on above: Performed By: #### B MP #### [facility] [address] [place] [address] Dr. Arden Magallon Neutrophils/100 WBC (Bld) 48.6 % Normal 43.0-75.0 [facility] Comment on above: Performed By: #### B MP #### [facility] [address] [place] [address] Dr. Arden Magallon Platelet mean volume (Bld) [Entitic vol] 10.8 fL Normal 9.5-13.5 [facility] Comment on above: Performed By: #### B MP #### [facility] [address] [place] [address] Dr. Arden Magallon PLT 138 103/ul Critically low 150-450 [facility] Comment on above: Performed By: #### B MP #### [facility] [address] [place] [address] Dr. Arden Magallon RBC 4.34 106/ul Normal 4.20-5.40 [facility] Comment on above: Performed By: #### B MP #### [facility] [address] [place] [address] Dr. Arden Magallon WBC 6.0 103/ul Normal 4.0-11.0 [facility] Comment on above: Performed By: #### B MP #### [facility] [address] [place] [address] Dr. Arden Magallon PROF CHEM 8 (BAS METB)on Anion gap [Moles/Vol] 9.0 mmol/L Normal [facility] Comment on above: Performed By: #### P T, DDIM #### [facility] [address] [place] [address] Dr. Arden Magallon Calcium [Mass/Vol] 9.6 mg/dL Normal 8.5-10.1 [facility] Comment on above: Performed By: #### P T, DDIM #### [facility] [address] [place] [address] Dr. Arden Magallon Chloride [Moles/Vol] 105 mmol/L Normal 98-107 [facility] Comment on above: Performed By: #### P T, DDIM #### [facility] [address] [place] [address] Dr. Arden Magallon CO2 [Moles/Vol] 29.1 mmol/L Normal 21.0-32.0 [facility] Comment on above: Performed By: #### P T, DDIM #### [facility] [address] [place] [address] Dr. Arden Magallon Creatinine [Mass/Vol] 1.00 mg/dL Normal 0.55-1.02 [facility] Comment on above: Performed By: #### P T, DDIM #### [facility] [address] [place] [address] Dr. Arden Magallon EGFR-AF [place] ISLANDER >60 Normal >=60 [facility] Comment on above: Performed By: #### P T, DDIM #### [facility] [address] [place] [address] Dr. Arden Magallon EGFR-NON AF [place]ER 53 mL/min/1.73m2 Critically low >=60 [facility] Comment on above: Performed By: #### P T, DDIM #### [facility] [address] [place] [address] Dr. Arden Magallon Glucose [Mass/Vol] 116 mg/dL Critically high 74-106 [facility] Comment on above: Performed By: #### P T, DDIM #### [facility] [address] [place] [address] Dr. Arden Magallon Potassium [Moles/Vol] 4.1 mmol/L Normal 3.5-5.1 [facility] Comment on above: Performed By: #### P T, DDIM #### [facility] [address] [place] [address] Dr. Arden Magallon Sodium [Moles/Vol] 139 mmol/L Normal 136-145 [facility] Comment on above: Performed By: #### P T, DDIM #### [facility] [address] [place] [address] Dr. Arden Magallon Urea nitrogen [Mass/Vol] 15.0 mg/dL Normal 7.0-18.0 [facility] Comment on above: Performed By: #### P T, DDIM #### [facility] [address] [place] [address] Dr. Arden Magallon Urea nitrogen/Creatinine [Mass ratio] 15.0 mg/mg Normal [facility] Comment on above: Performed By: #### P T, DDIM #### [facility] [address] [place] [address] Dr. Arden Magallon CBC AUTO DIFFon 08-30-2022 BASO # 0.2 103/ul Critically high 0.0-0.1 [facility] Comment on above: Performed By: #### B TANNING SOLUTION MAKER, CMP #### [facility] [address] [place] [address] Dr. Arden Magallon Basophils/100 WBC (Bld) 2.7 % Critically high 0.2-2.0 [facility] Comment on above: Performed By: #### B TANNING SOLUTION MAKER, CMP #### [facility] [address] [place] [address] Dr. Arden Magallon EO # 0.5 103/ul Normal 0.0-0.7 [facility] Comment on above: Performed By: #### B TANNING SOLUTION MAKER, CMP #### [facility] [address] [place] [address] Dr. Arden Magallon Eosinophils/100 WBC (Bld) 6.7 % Normal 0.9-7.0 [facility] Comment on above: Performed By: #### B TANNING SOLUTION MAKER, CMP #### [facility] [address] [place] [address] Dr. Arden Magallon Erythrocyte distribution width (RBC) [Ratio] 14.3 % Normal 11.0-15.0 [facility] Comment on above: Performed By: #### B TANNING SOLUTION MAKER, CMP #### [facility] [address] [place] [address] Dr. Arden Magallon Hematocrit (Bld) [Volume fraction] 43.1 % Normal 36.0-48.0 [facility] Comment on above: Performed By: #### B TANNING SOLUTION MAKER, CMP #### [facility] [address] [place] [address] Dr. Arden Magallon Hemoglobin (Bld) [Mass/Vol] 14.5 g/dL Normal 12.0-16.0 [facility] Comment on above: Performed By: #### B TANNING SOLUTION MAKER, CMP #### [facility] [address] [place] [address] Dr. Arden Magallon IG # 0.02 10e3/ul Normal 0.00-0.03 [facility] Comment on above: Performed By: #### B TANNING SOLUTION MAKER, CMP #### [facility] [address] [place] [address] Dr. Arden Magallon IG % 0.3 % Normal 0.0-0.5 [facility] Comment on above: Performed By: #### B TANNING SOLUTION MAKER, CMP #### [facility] [address] [place] [address] Dr. Arden Magallon LYMPH # 3.1 103/ul Normal 1.2-3.8 [facility] Comment on above: Performed By: #### B TANNING SOLUTION MAKER, CMP #### [facility] [address] [place] [address] Dr. Arden Magallon Lymphocytes/100 WBC (Bld) 41.0 % Normal 20.5-60.0 [facility] Comment on above: Performed By: #### B TANNING SOLUTION MAKER, CMP #### [facility] [address] [address] [address] Arden Magallon MANUAL DIFF REQ NO Normal [facility] Comment on above: Performed By: #### B TANNING SOLUTION MAKER, CMP #### [facility] [address] [place] [address] Dr. Arden Magallon MCH (RBC) [Entitic mass] 31.6 pg Normal 26.7-34.0 [facility] Comment on above: Performed By: #### B TANNING SOLUTION MAKER, CMP #### [facility] [address] [place] [address] Dr. Arden Magallon MCHC (RBC) [Mass/Vol] 33.6 g/dL Normal 29.9-35.2 [facility] Comment on above: Performed By: #### B TANNING SOLUTION MAKER, CMP #### [facility] [address] [place] [address] Dr. Arden Magallon MCV (RBC) [Entitic vol] 93.9 fL Normal 81.0-99.0 [facility] Comment on above: Performed By: #### B TANNING SOLUTION MAKER, CMP #### [facility] [address] [place] [address] Dr. Arden Magallon MONO # 0.8 103/ul Normal 0.3-0.8 [facility] Comment on above: Performed By: #### B TANNING SOLUTION MAKER, CMP #### [facility] [address] [place] [address] Dr. Arden Magallon Monocytes/100 WBC (Bld) 10.9 % Normal 1.7-12.0 [facility] Comment on above: Performed By: #### B TANNING SOLUTION MAKER, CMP #### [facility] [address] [place] [address] Dr. Arden Magallon NEUT # 2.9 103/ul Normal 1.4-6.5 [facility] Comment on above: Performed By: #### B TANNING SOLUTION MAKER, CMP #### [facility] [address] [place] [address] Dr. Arden Magallon Neutrophils/100 WBC (Bld) 38.4 % Critically low 43.0-75.0 [facility] Comment on above: Performed By: #### B TANNING SOLUTION MAKER, CMP #### [facility] [address] [place] [address] Dr. Arden Magallon Platelet mean volume (Bld) [Entitic vol] 10.8 fL Normal 9.5-13.5 [facility] Comment on above: Performed By: #### B TANNING SOLUTION MAKER, CMP #### [facility] [address] [place] [address] Dr. Arden Magallon PLT 165 103/ul Normal 150-450 [facility] Comment on above: Performed By: #### B TANNING SOLUTION MAKER, CMP #### [facility] [address] [place] [address] Dr. Arden Magallon RBC 4.59 106/ul Normal 4.20-5.40 [facility] Comment on above: Performed By: #### B TANNING SOLUTION MAKER, CMP #### [facility] [address] [place] [address] Dr. Arden Magallon WBC 7.5 103/ul Normal 4.0-11.0 [facility] Comment on above: Performed By: #### B TANNING SOLUTION MAKER, CMP #### [facility] [address] [place] [address] Dr. Arden Magallon PROF 14(COMP METB)on 022 Albumin [Mass/Vol] 3.9 g/dL Normal 3.4-5.0 [facility] Comment on above: Performed By: #### P T, DDIM #### [facility] [address] [place] [address] Dr. Arden Magallon Albumin/Globulin [Mass ratio] 1.2 {ratio} Normal [facility] Comment on above: Performed By: #### P T, DDIM #### [facility] [address] [place] [address] Dr. Arden Magallon ALP [Catalytic activity/Vol] 69 U/L Normal 46-116 [facility] Comment on above: Performed By: #### P T, DDIM #### [facility] [address] [place] [address] Dr. Arden Magallon ALT [Catalytic activity/Vol] 16 U/L Normal 14-59 [facility] Comment on above: Performed By: #### P T, DDIM #### [facility] [address] [place] [address] Dr. Arden Magallon Anion gap [Moles/Vol] 8.6 mmol/L Normal [facility] Comment on above: Performed By: #### P T, DDIM #### [facility] [address] [place] [address] Dr. Arden Magallon AST [Catalytic activity/Vol] 14 U/L Critically low 15-37 [facility] Comment on above: Performed By: #### P T, DDIM #### [facility] [address] [place] [address] Dr. Arden Magallon Bilirubin [Mass/Vol] 0.3 mg/dL Normal 0.2-1.0 [facility] Comment on above: Performed By: #### P T, DDIM #### [facility] [address] [place] [address] Dr. Arden Magallon Calcium [Mass/Vol] 9.5 mg/dL Normal 8.5-10.1 [facility] Comment on above: Performed By: #### P T, DDIM #### [facility] [address] [place] [address] Dr. Arden Magallon Chloride [Moles/Vol] 104 mmol/L Normal 98-107 [facility] Comment on above: Performed By: #### P T, DDIM #### [facility] [address] [place] [address] Dr. Arden Magallon CO2 [Moles/Vol] 29.2 mmol/L Normal 21.0-32.0 [facility] Comment on above: Performed By: #### P T, DDIM #### [facility] [address] [place] [address] Dr. Arden Magallon Creatinine [Mass/Vol] 1.25 mg/dL Critically high 0.55-1.02 [facility] Comment on above: Performed By: #### P T, DDIM #### [facility] [address] [place] [address] Dr. Arden Magallon EGFR-AF [place]ER 49 mL/min/1.73m2 Critically low >=60 [facility] Comment on above: Performed By: #### P T, DDIM #### [facility] [address] [address] [address] Arden Magallon EGFR-NON AF [place]ER 41 mL/min/1.73m2 Critically low >=60 [facility] Comment on above: Performed By: #### P T, DDIM #### [facility] [address] [address] [address] Arden Magallon Globulin (S) [Mass/Vol] 3.3 g/dL Normal T [facility] Comment on above: Performed By: #### P T, DDIM #### [facility] [address] [place] [address] Dr. Arden Magallon Glucose [Mass/Vol] 119 mg/dL Critically high 74-106 [facility] Comment on above: Performed By: #### P T, DDIM #### [facility] [address] [place] [address] Dr. Arden Magallon Potassium [Moles/Vol] 3.8 mmol/L Normal 3.5-5.1 [facility] Comment on above: Performed By: #### P T, DDIM #### [facility] [address] [place] [address] Dr. Arden Magallon Protein [Mass/Vol] 7.2 g/dL Normal 6.4-8.2 [facility] Comment on above: Performed By: #### P T, DDIM #### [facility] [address] [place] [address] Dr. Arden Magallon Sodium [Moles/Vol] 138 mmol/L Normal 136-145 [facility] Comment on above: Performed By: #### P T, DDIM #### [facility] [facility] [address] [place] [address] Dr. Arden Magallon Urea nitrogen [Mass/Vol] 24.0 mg/dL Critically high 7.0-18.0 [facility] Comment on above: Performed By: #### P T, DDIM #### [facility] [address] [address] [address] Arden Magallon Urea nitrogen/Creatinine [Mass ratio] 19.2 mg/mg Normal [facility] Comment on above: Performed By: #### P T, DDIM #### [facility] [address] [place] [address] Dr. Arden Magallon BNPon 08-26-2022 Natriuretic peptide B (Bld) [Mass/Vol] 427.0 pg/mL Normal <=1,800.0 [facility] Comment on above: Performed By: #### P T, DDIM #### [facility] [address] [place] [address] Dr. Arden Magallon CARDIAC CINDY ADMITon 022 CK [Catalytic activity/Vol] 56 U/L Normal 26-192 [facility] Comment on above: Performed By: #### P T, DDIM #### [facility] [address] [place] [address] Dr. Arden Magallon CK.MB [Mass/Vol] 1.41 ng/mL Normal <=3.60 [facility] Comment on above: Performed By: #### P T, DDIM #### [facility] [address] [place] [address] Dr. Arden Magallon HSTROP 9.0 pg/mL Normal 4.0-51.3 [facility] Comment on above: Result Comment: CUT- OFF POINTS HAVE BEEN ESTABLISHED BASED ON THE FOURTH UNIVERSAL DEFINITIONS OF MYOCARDIAL INFARCTION. THE UPPER REFERENCE LIMIT (URL) OF TROPONIN, DEFINED THE 99TH PERCENTILE OF cTnI DISTRIBUTION IN A REFERENCE POPULATION, HAS BEEN CONFIRMED THE DECISION THRESHOLD FOR [place] DIAGNOSIS. Performed By: #### P T, DDIM #### [facility] [address] [place] [address] Dr. Arden Magallon IKE 99 ng/mL Critically high 9-82 [facility] Comment on above: Performed By: #### P T, DDIM #### [facility] [address] [place] [address] Dr. Arden Magallon CBC AUTO DIFFon 08-26-2022 BASO # 0.2 103/ul Critically high 0.0-0.1 [facility] Comment on above: Performed By: #### C BC #### [facility] [address] [place] [address] Dr. Arden Magallon Basophils/100 WBC (Bld) 2.2 % Critically high 0.2-2.0 [facility] Comment on above: Performed By: #### C BC #### [facility] [address] [place] [address] Dr. Arden Magallon EO # 0.4 103/ul Normal 0.0-0.7 [facility] Comment on above: Performed By: #### C BC #### [facility] [address] [place] [address] Dr. Arden Magallon Eosinophils/100 WBC (Bld) 5.1 % Normal 0.9-7.0 [facility] Comment on above: Performed By: #### C BC #### [facility] [address] [place] [address] Dr. Arden Magallon Erythrocyte distribution width (RBC) [Ratio] 14.1 % Normal 11.0-15.0 [facility] Comment on above: Performed By: #### C BC #### [facility] [address] [place] [address] Dr. Arden Magallon Hematocrit (Bld) [Volume fraction] 41.2 % Normal 36.0-48.0 [facility] Comment on above: Performed By: #### C BC #### [facility] [address] [place] [address] Dr. Arden Magallon Hemoglobin (Bld) [Mass/Vol] 13.6 g/dL Normal 12.0-16.0 [facility] Comment on above: Performed By: #### C BC #### [facility] [address] [place] [address] Dr. Adren Magallon IG # 0.03 10e3/ul Normal 0.00-0.03 [facility] Comment on above: Performed By: #### C BC #### [facility] [address] [place] [address] Dr. Arden Magallon IG % 0.4 % Normal 0.0-0.5 [facility] Comment on above: Performed By: #### C BC #### [facility] [address] [address] [address] Arden Magallon LYMPH # 2.4 103/ul Normal 1.2-3.8 [facility] Comment on above: Performed By: #### C BC #### [facility] [address] [address] [address] Arden Magallon Lymphocytes/100 WBC (Bld) 30.1 % Normal 20.5-60.0 [facility] Comment on above: Performed By: #### C BC #### [facility] [address] [place] [address] Dr. Arden Magallon MANUAL DIFF REQ NO Normal [facility] Comment on above: Performed By: #### C BC #### [facility] [address] [place] [address] Dr. Arden Magallon MCH (RBC) [Entitic mass] 30.8 pg Normal 26.7-34.0 [facility] Comment on above: Performed By: #### C BC #### [facility] [address] [place] [address] Dr. Arden Magallon MCHC (RBC) [Mass/Vol] 33.0 g/dL Normal 29.9-35.2 [facility] Comment on above: Performed By: #### C BC #### [facility] [address] [place] [address] Dr. Arden Magallon MCV (RBC) [Entitic vol] 93.4 fL Normal 81.0-99.0 [facility] Comment on above: Performed By: #### C BC #### [facility] [address] [place] [address] Dr. Arden Magallon MONO # 0.8 103/ul Normal 0.3-0.8 [facility] Comment on above: Performed By: #### C BC #### [facility] [address] [place] [address] Dr. Arden Magallon Monocytes/100 WBC (Bld) 9.8 % Normal 1.7-12.0 [facility] Comment on above: Performed By: #### C BC #### [facility] [address] [address] [address] Arden Magallon NEUT # 4.2 103/ul Normal 1.4-6.5 [facility] Comment on above: Performed By: #### C BC #### [facility] [address] [place] [address] Dr. Arden Magallon Neutrophils/100 WBC (Bld) 52.4 % Normal 43.0-75.0 [facility] Comment on above: Performed By: #### C BC #### [facility] [address] [place] [address] Dr. Arden Magallon Platelet mean volume (Bld) [Entitic vol] 10.7 fL Normal 9.5-13.5 [facility] Comment on above: Performed By: #### C BC #### [facility] [address] [place] [address] Dr. Arden Magallon PLT 154 103/ul Normal 150-450 [facility] Comment on above: Performed By: #### C BC #### [facility] [address] [place] [address] Dr. Arden Magallon RBC 4.41 106/ul Normal 4.20-5.40 [facility] Comment on above: Performed By: #### C BC #### [facility] [address] [place] [address] Dr. Arden Magallon WBC 8.1 103/ul Normal 4.0-11.0 [facility] Comment on above: Performed By: #### C BC #### [facility] [address] [place] [address] Dr. Arden Magallon PROF 14(COMP METB)on 022 Albumin [Mass/Vol] 3.7 g/dL Normal 3.4-5.0 [facility] Comment on above: Performed By: #### P T, DDIM #### [facility] [address] [place] [address] Dr. Arden Magallon Albumin/Globulin [Mass ratio] 1.2 {ratio} Normal [facility] Comment on above: Performed By: #### P T, DDIM #### [facility] [address] [address] [address] Arden Magallon ALP [Catalytic activity/Vol] 57 U/L Normal 46-116 [facility] Comment on above: Performed By: #### P T, DDIM #### [facility] [address] [address] [address] Arden Magallon ALT [Catalytic activity/Vol] 17 U/L Normal 14-59 [facility] Comment on above: Performed By: #### P T, DDIM #### [facility] [address] [address] [address] Arden Magallon Anion gap [Moles/Vol] 9.1 mmol/L Normal [facility] Comment on above: Performed By: #### P T, DDIM #### [facility] [address] [place] [address] Dr. Arden Magallon AST [Catalytic activity/Vol] 12 U/L Critically low 15-37 [facility] Comment on above: Performed By: #### P T, DDIM #### [facility] [address] [address] [address] Arden Magallon Bilirubin [Mass/Vol] 0.6 mg/dL Normal 0.2-1.0 [facility] Comment on above: Performed By: #### P T, DDIM #### [facility] [address] [address] [address] Arden Magallon Calcium [Mass/Vol] 9.5 mg/dL Normal 8.5-10.1 [facility] Comment on above: Performed By: #### P T, DDIM #### [facility] [address] [address] [address] Arden Magallon Chloride [Moles/Vol] 105 mmol/L Normal 98-107 [facility] Comment on above: Performed By: #### P T, DDIM #### [facility] [address] [address] [address] Arden Magallon CO2 [Moles/Vol] 27.9 mmol/L Normal 21.0-32.0 [facility] Comment on above: Performed By: #### P T, DDIM #### [facility] [address] [address] [address] Arden Magallon Creatinine [Mass/Vol] 0.97 mg/dL Normal 0.55-1.02 [facility] Comment on above: Performed By: #### P T, DDIM #### [facility] [address] [address] [address] Arden Magallon EGFR-AF CA[place] ISLANDER >60 Normal >=60 [facility] Comment on above: Performed By: #### P T, DDIM #### [facility] [address] [address] [address] Arden Magallon EGFR-NON AF [place]ER 54 mL/min/1.73m2 Critically low >=60 [facility] Comment on above: Performed By: #### P T, DDIM #### [facility] [address] [address] [address] Arden Magallon Globulin (S) [Mass/Vol] 3.0 g/dL Normal [facility] Comment on above: Performed By: #### P T, DDIM #### [facility] [address] [address] [address] Arden Magallon Glucose [Mass/Vol] 105 mg/dL Normal 74-106 [facility] Comment on above: Performed By: #### P T, DDIM #### [facility] [address] [address] [address] Arden Magallon Potassium [Moles/Vol] 4.0 mmol/L Normal 3.5-5.1 [facility] Comment on above: Performed By: #### P T, DDIM #### [facility] [address] [address] [address] Arden Magallon Protein [Mass/Vol] 6.7 g/dL Normal 6.4-8.2 [facility] Comment on above: Performed By: #### P T, DDIM #### [facility] [address] [address] [address] Arden Magallon Sodium [Moles/Vol] 138 mmol/L Normal 136-145 [facility] Comment on above: Performed By: #### P T, DDIM #### [facility] [address] [place] [address] Dr. Arden Magallon Urea nitrogen [Mass/Vol] 18.0 mg/dL Normal 7.0-18.0 [facility] Comment on above: Performed By: #### P T, DDIM #### [facility] [address] [place] [address] Dr. Arden Magallon Urea nitrogen/Creatinine [Mass ratio] 18.6 mg/mg Normal [facility] Comment on above: Performed By: #### P T, DDIM #### [facility] [address] [place] [address] Dr. Arden Magallon PROTIMEon 08-26-2022 INR Coag (PPP) [Relative time] 1.49 {INR} Normal [facility] Comment on above: Performed By: #### B TANNING [employer]UTION [employer]KER, CMP #### [facility] [address] [place] [address] Dr. Arden Magallon INR GUIDELINES SEE BELOW Normal [facility] Comment on above: Result Comment: THANH RED INR: 2.0 - 3.0 CONDITIONS NOT LISTED BELOW 2.5 - 3.5 FOR PROSTHETIC HEART VALVE REPLACEMENT 2.5 - 3.5 RECURRENT THROMBOSIS Performed By: #### B [employer]ANNING [employer]KER, CMP #### [facility] [address] [place] [address] Dr. Arden Magallon PT Coag (PPP) [Time] 15.7 s Critically high 9.0-11.6 [facility] Comment on above: Performed By: #### B TANNING [employer]KER, CMP #### [facility] [address] [place] [address] Dr. Arden Magallon PTTon 08-26-2022 aPTT Coag (Bld) [Time] 30.2 s Normal 22.3-36.2 [facility] Comment on above: Performed By: #### B TANNING [employer]KER, CMP #### [facility] [address] [place] [address] Dr. Arden Magallon TROPONIN, HIGH SENSITIVITYon 08-26-2022 HSTROP 8.3 pg/mL Normal 4.0-51.3 [facility] Comment on above: Result Comment: CUT- OFF POINTS HAVE BEEN ESTABLISHED BASED ON THE FOURTH UNIVERSAL DEFINITIONS OF MYOCARDIAL INFARCTION. THE UPPER REFERENCE LIMIT (URL) OF TROPONIN, DEFINED THE 99TH PERCENTILE OF cTnI DISTRIBUTION IN A REFERENCE POPULATION, HAS BEEN CONFIRMED THE DECISION THRESHOLD FOR [place] DIAGNOSIS. Performed By: #### B MP #### [facility] [address] [address] [address] Arden Magallon XR CHEST 1 Von [...] [place] Date: 2022-08-26 12:29 Normal [facility] BNPon 08-17-2022 Natriuretic peptide B (Bld) [Mass/Vol] 414.0 pg/mL Normal <=1,800.0 [facility] Comment on above: Performed By: #### B MP #### [facility] [address] [place] [address] Dr. Arden Magallon CBC AUTO DIFFon 08-17-2022 BASO # 0.2 103/ul Critically high 0.0-0.1 [facility] Comment on above: Performed By: #### B MP #### [facility] [address] [place] [address] Dr. Arden Magallon Basophils/100 WBC (Bld) 2.8 % Critically high 0.2-2.0 [facility] Comment on above: Performed By: #### B MP #### [facility] [address] [place] [address] Dr. Arden Magallon EO # 0.5 103/ul Normal 0.0-0.7 [facility] Comment on above: Performed By: #### B MP #### [facility] [address] [place] [address] Dr. Arden Magallon Eosinophils/100 WBC (Bld) 7.2 % Critically high 0.9-7.0 [facility] Comment on above: Performed By: #### B MP #### [facility] [address] [place] [address] Dr. Arden Magallon Erythrocyte distribution width (RBC) [Ratio] 14.1 % Normal 11.0-15.0 [facility] Comment on above: Performed By: #### B MP #### [facility] [address] [place] [address] Dr. Arden Magallon Hematocrit (Bld) [Volume fraction] 41.2 % Normal 36.0-48.0 [facility] Comment on above: Performed By: #### B MP #### [facility] [address] [place] [address] Dr. Arden Magallon Hemoglobin (Bld) [Mass/Vol] 13.5 g/dL Normal 12.0-16.0 [facility] Comment on above: Performed By: #### B MP #### [facility] [address] [place] [address] Dr. Arden Magallon IG # 0.01 10e3/ul Normal 0.00-0.03 [facility] Comment on above: Performed By: #### B MP #### [facility] [address] [place] [address] Dr. Arden Magallon IG % 0.1 % Normal 0.0-0.5 [facility] Comment on above: Performed By: #### B MP #### [facility] [address] [place] [address] Dr. Arden Magallon LYMPH # 2.7 103/ul Normal 1.2-3.8 [facility] Comment on above: Performed By: #### B MP #### [facility] [address] [place] [address] Dr. Arden Magallon Lymphocytes/100 WBC (Bld) 37.7 % Normal 20.5-60.0 [facility] Comment on above: Performed By: #### B MP #### [facility] [address] [place] [address] Dr. Arden Magallon MANUAL DIFF REQ NO Normal [facility] Comment on above: Performed By: #### B MP #### [facility] [address] [place] [address] Dr. Arden Magallon MCH (RBC) [Entitic mass] 31.2 pg Normal 26.7-34.0 [facility] Comment on above: Performed By: #### B MP #### [facility] [address] [place] [address] Dr. Arden Magallon MCHC (RBC) [Mass/Vol] 32.8 g/dL Normal 29.9-35.2 [facility] Comment on above: Performed By: #### B MP #### [facility] [address] [place] [address] Dr. Arden Magallon MCV (RBC) [Entitic vol] 95.2 fL Normal 81.0-99.0 [facility] Comment on above: Performed By: #### B MP #### [facility] [address] [place] [address] Dr. Arden Magallon MONO # 0.6 103/ul Normal 0.3-0.8 [facility] Comment on above: Performed By: #### B MP #### [facility] [address] [place] [address] Dr. Arden Magallon Monocytes/100 WBC (Bld) 8.2 % Normal 1.7-12.0 [facility] Comment on above: Performed By: #### B MP #### [facility] [address] [place] [address] Dr. Arden Magallon NEUT # 3.1 103/ul Normal 1.4-6.5 [facility] Comment on above: Performed By: #### B MP #### [facility] [address] [place] [address] Dr. Arden Magallon Neutrophils/100 WBC (Bld) 44.0 % Normal 43.0-75.0 [facility] Comment on above: Performed By: #### B MP #### [facility] [address] [place] [address] Dr. Arden Magallon Platelet mean volume (Bld) [Entitic vol] 11.5 fL Normal 9.5-13.5 [facility] Comment on above: Performed By: #### B MP #### [facility] [address] [address] [address] Arden Magallon PLT 160 103/ul Normal 150-450 [facility] Comment on above: Performed By: #### B MP #### [facility] [address] [place] [address] Dr. Arden Magallon RBC 4.33 106/ul Normal 4.20-5.40 [facility] Comment on above: Performed By: #### B MP #### [facility] [address] [place] [address] Dr. Arden Magallon WBC 7.1 103/ul Normal 4.0-11.0 [facility] Comment on above: Performed By: #### B MP #### [facility] [address] [place] [address] Dr. Arden Magallon D-DIMERon 08-17-2022 D-DIMER 0.36 mg/L FEU Normal <=0.59 [facility] Comment on above: Performed By: #### P T, DDIM #### [facility] [address] [place] [address] Dr. Arden Magallon D-DIMER COMMENTS SEE BELOW Normal [facility] Comment on above: Result Comment: Incr eases [...] Performed By: #### P T, DDIM #### [facility] [address] [place] [address] Dr. Arden Magallon PROF 14(COMP METB)on 022 Albumin [Mass/Vol] 3.7 g/dL Normal 3.4-5.0 [facility] Comment on above: Performed By: #### C BC #### [facility] [address] [place] [address] Dr. Arden Magallon Albumin/Globulin [Mass ratio] 1.1 {ratio} Normal [facility] Comment on above: Performed By: #### C BC #### [facility] [address] [place] [address] Dr. Arden Magallon ALP [Catalytic activity/Vol] 65 U/L Normal 46-116 [facility] Comment on above: Performed By: #### C BC #### [facility] [address] [place] [address] Dr. Arden Magallon ALT [Catalytic activity/Vol] 15 U/L Normal 14-59 [facility] Comment on above: Performed By: #### C BC #### [facility] [address] [place] [address] Dr. Arden Magallon Anion gap [Moles/Vol] 6.1 mmol/L Normal [facility] Comment on above: Performed By: #### C BC #### [facility] [address] [place] [address] Dr. Arden Magallon AST [Catalytic activity/Vol] 11 U/L Critically low 15-37 [facility] Comment on above: Performed By: #### C BC #### [facility] [address] [place] [address] Dr. Arden Magallon Bilirubin [Mass/Vol] 0.4 mg/dL Normal 0.2-1.0 [facility] Comment on above: Performed By: #### C BC #### [facility] [address] [place] [address] Dr. Arden Magallon Calcium [Mass/Vol] 9.6 mg/dL Normal 8.5-10.1 [facility] Comment on above: Performed By: #### C BC #### [facility] [address] [address] [address] Arden Magallon Chloride [Moles/Vol] 106 mmol/L Normal 98-107 [facility] Comment on above: Performed By: #### C BC #### [facility] [address] [place] [address] Dr. Arden Magallon CO2 [Moles/Vol] 29.5 mmol/L Normal 21.0-32.0 [facility] Comment on above: Performed By: #### C BC #### [facility] [address] [place] [address] Dr. Arden Magallon Creatinine [Mass/Vol] 1.02 mg/dL Normal 0.55-1.02 [facility] Comment on above: Performed By: #### C BC #### [facility] [address] [place] [address] Dr. Arden Magallon EGFR-AF [place] ISLANDER >60 Normal >=60 [facility] Comment on above: Performed By: #### C BC #### [facility] [address] [place] [address] Dr. Arden Magallon EGFR-NON AF [place]ER 51 mL/min/1.73m2 Critically low >=60 [facility] Comment on above: Performed By: #### C BC #### [facility] [address] [place] [address] Dr. Arden Magallon Globulin (S) [Mass/Vol] 3.3 g/dL Normal [facility] Comment on above: Performed By: #### C BC #### [facility] [address] [place] [address] Dr. Arden Magallon Glucose [Mass/Vol] 143 mg/dL Critically high 74-106 [facility] Comment on above: Performed By: #### C BC #### [facility] [address] [place] [address] Dr. Arden Magallon Potassium [Moles/Vol] 3.6 mmol/L Normal 3.5-5.1 [facility] Comment on above: Performed By: #### C BC #### [facility] [address] [place] [address] Dr. Arden Magallon Protein [Mass/Vol] 7.0 g/dL Normal 6.4-8.2 [facility] Comment on above: Performed By: #### C BC #### [facility] [address] [place] [address] Dr. Arden Magallon Sodium [Moles/Vol] 138 mmol/L Normal 136-145 [facility] Comment on above: Performed By: #### C BC #### [facility] [address] [place] [address] Dr. Arden Magallon Urea nitrogen [Mass/Vol] 21.0 mg/dL Critically high 7.0-18.0 [facility] Comment on above: Performed By: #### C BC #### [facility] [address] [place] [address] Dr. Arden Magallon Urea nitrogen/Creatinine [Mass ratio] 20.6 mg/mg Normal [facility] Comment on above: Performed By: #### C BC #### [facility] [address] [place] [address] Dr. Arden Magallon PROTIMEon 08-17-2022 INR Coag (PPP) [Relative time] 1.27 {INR} Normal [facility] Comment on above: Performed By: #### P T, DDIM #### [facility] [address] [place] [address] Dr. Arden Magallon INR GUIDELINES SEE BELOW Normal [facility] Comment on above: Result Comment: THANH RED INR: 2.0 - 3.0 CONDITIONS NOT LISTED BELOW 2.5 - 3.5 FOR PROSTHETIC HEART VALVE REPLACEMENT 2.5 - 3.5 RECURRENT THROMBOSIS Performed By: #### P T, DDIM #### [facility] [address] [place] [address] Dr. Arden Magallon PT Coag (PPP) [Time] 13.5 s Critically high 9.0-11.6 [facility] Comment on above: Performed By: #### P T, DDIM #### [facility] [address] [place] [address] Dr. Arden Magallon TROPONIN, HIGH SENSITIVITYon 08-17-2022 HSTROP 8.3 pg/mL Normal 4.0-51.3 [facility] Comment on above: Result Comment: CUT- OFF POINTS HAVE BEEN ESTABLISHED BASED ON THE FOURTH UNIVERSAL DEFINITIONS OF MYOCARDIAL INFARCTION. THE UPPER REFERENCE LIMIT (URL) OF TROPONIN, DEFINED THE 99TH PERCENTILE OF cTnI DISTRIBUTION IN A REFERENCE POPULATION, HAS BEEN CONFIRMED THE DECISION THRESHOLD FOR [place] DIAGNOSIS. Performed By: #### B MP #### [facility] [address] [address] [address] Arden Magallon XR CHEST 1 Von [...] HARJINDER RAMIREZ Date: 2022-08-17 13:57 Normal [facility] ER URINE PROFILEon 2 Bilirubin Ql (U) Negative Normal NEGATIVE [facility] Comment on above: Performed By: #### P T, DDIM #### [facility] [address] [address] [address] Arden Magallon Clarity (U) CLEAR Normal CLEAR [facility] Comment on above: Performed By: #### P T, DDIM #### [facility] [address] [address] [address] Arden Magallon Color (U) LT. YELLOW Normal YELLOW [facility] Comment on above: Performed By: #### P T, DDIM #### [facility] [address] [place] [address] Dr. Arden Magallon ERUAHD A micrscopic examination will be performed if indicated. Normal [facility] Comment on above: Performed By: #### P T, DDIM #### [facility] [address] [address] [address] Arden Magallon Glucose Ql (U) Negative Normal NEGATIVE [facility] Comment on above: Performed By: #### P T, DDIM #### [facility] [address] [address] [address] Arden Magallon Hemoglobin Ql (U) SMALL Abnormal NEGATIVE [facility] Comment on above: Performed By: #### P T, DDIM #### [facility] [address] [address] [address] Arden Magallon Ketones Ql (U) Negative Normal NEGATIVE [facility] Comment on above: Performed By: #### P T, DDIM #### [facility] [address] [place] [address] Dr. Arden Magallon LEUKOCYTES TRACE Abnormal NEGATIVE [facility] Comment on above: Performed By: #### P T, DDIM #### [facility] [address] [address] [address] Arden Magallon Nitrite Ql (U) Negative Normal NEGATIVE [facility] Comment on above: Performed By: #### P T, DDIM #### [facility] [address] [place] [address] Dr. Arden Magallon pH (U) 7.0 [pH] Normal 5-9 [facility] Comment on above: Performed By: #### P T, DDIM #### [facility] [address] [address] [address] Arden Magallon SPEC GRAVITY 1.010 Normal 1.005-<=1.0 25 [facility] Comment on above: Performed By: #### P T, DDIM #### [facility] [address] [address] [address] Arden Magallon UA PROTEIN Negative Normal NEGATIVE/ TRACE [facility] Comment on above: Performed By: #### P T, DDIM #### [facility] [address] [address] [address] Arden Magallon UR MICRO IND INDICATED Normal [facility] Comment on above: Performed By: #### P T, DDIM #### [facility] [address] [place] [address] Dr. Arden Magallon Urobilinogen Qn (U) 0.2 {Myranda'U}/dL Normal 0.2 - 1. 0 [facility] Comment on above: Performed By: #### P T, DDIM #### [facility] [address] [place] [address] Dr. Arden Magallon URINE MICROSCOPIC ONLYon BACTERIA NONE SEEN Normal NONE SEEN [facility] Comment on above: Performed By: #### P T, DDIM #### [facility] [address] [place] [address] Dr. Arden Magallon Bacteria identified Cx Nom (U) NOT INDICATED Normal [facility] Comment on above: Performed By: #### P T, DDIM #### [facility] [address] [place] [address] Dr. Arden Magallon CAST NONE SEEN Normal NONE SEEN [facility] Comment on above: Performed By: #### P T, DDIM #### [facility] [address] [place] [address] Dr. Arden Magallon Crystals LM Nom (Urine sed) NONE SEEN Normal NONE SEEN [facility] Comment on above: Performed By: #### P T, DDIM #### [facility] [address] [place] [address] Dr. Arden Magallon Epithelial cells LM Ql (Urine sed) RARE Normal NONE SEEN /RARE [facility] Comment on above: Performed By: #### P T, DDIM #### [facility] [address] [place] [address] Dr. Arden Magallon MUCOUS NONE SEEN Normal NONE SEEN [facility] Comment on above: Performed By: #### P T, DDIM #### [facility] [address] [place] [address] Dr. Arden Magallon RBC 0-2 Normal 0-2 [facility] Comment on above: Performed By: #### P T, DDIM #### [facility] [address] [place] [address] Dr. Arden Magallon WBC 0-2 Abnormal NONE SEEN [facility] Comment on above: Performed By: #### P T, DDIM #### [facility] [address] [place] [address] Dr. Arden Magallon XR CHEST 1 Von [...] PANCHO ELY Date: 2022-04-15 22:19 Normal [facility] BNPon 04-15-2022 Natriuretic peptide B (Bld) [Mass/Vol] 318.0 pg/mL Normal <=1,800.0 [facility] Comment on above: Performed By: #### B TANNING SOLUTION MAKER, CMP #### [facility] [address] [place] [address] Dr. Arden Magallon CBC AUTO DIFFon 04-15-2022 BASO # 0.2 103/ul Critically high 0.0-0.1 [facility] Comment on above: Performed By: #### P T, DDIM #### [facility] [address] [place] [address] Dr. Arden Magallon Basophils/100 WBC (Bld) 2.2 % Critically high 0.2-2.0 [facility] Comment on above: Performed By: #### P T, DDIM #### [facility] [address] [place] [address] Dr. Arden Magallon EO # 0.5 103/ul Normal 0.0-0.7 [facility] Comment on above: Performed By: #### P T, DDIM #### [facility] [address] [place] [address] Dr. Arden Magallon Eosinophils/100 WBC (Bld) 6.2 % Normal 0.9-7.0 [facility] Comment on above: Performed By: #### P T, DDIM #### [facility] [address] [place] [address] Dr. Arden Magallon Erythrocyte distribution width (RBC) [Ratio] 14.0 % Normal 11.0-15.0 [facility] Comment on above: Performed By: #### P T, DDIM #### [facility] [address] [place] [address] Dr. Arden Magallon Hematocrit (Bld) [Volume fraction] 41.6 % Normal 36.0-48.0 [facility] Comment on above: Performed By: #### P T, DDIM #### [facility] [address] [place] [address] Dr. Arden Magallon Hemoglobin (Bld) [Mass/Vol] 13.8 g/dL Normal 12.0-16.0 [facility] Comment on above: Performed By: #### P T, DDIM #### [facility] [address] [place] [address] Dr. Arden Magallon IG # 0.01 10e3/ul Normal 0.00-0.03 [facility] Comment on above: Performed By: #### P T, DDIM #### [facility] [address] [place] [address] Dr. Arden Magallon IG % 0.1 % Normal 0.0-0.5 [facility] Comment on above: Performed By: #### P T, DDIM #### [facility] [address] [place] [address] Dr. Arden Magallon LYMPH # 3.2 103/ul Normal 1.2-3.8 [facility] Comment on above: Performed By: #### P T, DDIM #### [facility] [address] [place] [address] Dr. Arden Magallon Lymphocytes/100 WBC (Bld) 37.2 % Normal 20.5-60.0 [facility] Comment on above: Performed By: #### P T, DDIM #### [facility] [address] [place] [address] Dr. Arden Magallon MANUAL DIFF REQ NO Normal [facility] Comment on above: Performed By: #### P T, DDIM #### [facility] [address] [place] [address] Dr. Arden Magallon MCH (RBC) [Entitic mass] 31.0 pg Normal 26.7-34.0 [facility] Comment on above: Performed By: #### P T, DDIM #### [facility] [address] [place] [address] Dr. Arden Magallon MCHC (RBC) [Mass/Vol] 33.2 g/dL Normal 29.9-35.2 [facility] Comment on above: Performed By: #### P T, DDIM #### [facility] [address] [place] [address] Dr. Arden Magallon MCV (RBC) [Entitic vol] 93.5 fL Normal 81.0-99.0 [facility] Comment on above: Performed By: #### P T, DDIM #### [facility] [address] [place] [address] Dr. Arden Magallon MONO # 0.8 103/ul Normal 0.3-0.8 [facility] Comment on above: Performed By: #### P T, DDIM #### [facility] [address] [place] [address] Dr. Arden Magallon Monocytes/100 WBC (Bld) 9.4 % Normal 1.7-12.0 [facility] Comment on above: Performed By: #### P T, DDIM #### [facility] [address] [place] [address] Dr. Arden Magallon NEUT # 3.9 103/ul Normal 1.4-6.5 [facility] Comment on above: Performed By: #### P T, DDIM #### [facility] [address] [place] [address] Dr. Arden Magallon Neutrophils/100 WBC (Bld) 44.9 % Normal 43.0-75.0 [facility] Comment on above: Performed By: #### P T, DDIM #### [facility] [address] [address] [address] Arden Magallon Platelet mean volume (Bld) [Entitic vol] 10.7 fL Normal 9.5-13.5 [facility] Comment on above: Performed By: #### P T, DDIM #### [facility] [address] [address] [address] Arden Magallon PLT 158 103/ul Normal 150-450 [facility] Comment on above: Performed By: #### P T, DDIM #### [facility] [address] [place] [address] Dr. Arden Magallon RBC 4.45 106/ul Normal 4.20-5.40 [facility] Comment on above: Performed By: #### P T, DDIM #### [facility] [address] [place] [address] Dr. Arden Magallon WBC 8.7 103/ul Normal 4.0-11.0 [facility] Comment on above: Performed By: #### P T, DDIM #### [facility] [address] [place] [address] Dr. Arden Magallon PROF 14(COMP METB)on 022 Albumin [Mass/Vol] 4.2 g/dL Normal 3.4-5.0 [facility] Comment on above: Performed By: #### B TANNING SOLUTION MAKER, CMP #### [facility] [address] [place] [address] Dr. Arden Magallon Albumin/Globulin [Mass ratio] 1.2 {ratio} Normal [facility] Comment on above: Performed By: #### B TANNING SOLUTION MAKER, CMP #### [facility] [address] [place] [address] Dr. Arden Magallon ALP [Catalytic activity/Vol] 75 U/L Normal 46-116 [facility] Comment on above: Performed By: #### B TANNING SOLUTION MAKER, CMP #### [facility] [address] [place] [address] Dr. Arden Magallon ALT [Catalytic activity/Vol] 31 U/L Normal 14-59 [facility] Comment on above: Performed By: #### B TANNING SOLUTION MAKER, CMP #### [facility] [address] [address] [address] Arden Magallon Anion gap [Moles/Vol] 11.6 mmol/L Normal [facility] Comment on above: Performed By: #### B TANNING SOLUTION MAKER, CMP #### [facility] [address] [address] [address] Arden Magallon AST [Catalytic activity/Vol] 16 U/L Normal 15-37 [facility] Comment on above: Performed By: #### B TANNING SOLUTION MAKER, CMP #### [facility] [address] [address] [address] Arden Magallon Bilirubin [Mass/Vol] 0.4 mg/dL Normal 0.2-1.0 [facility] Comment on above: Performed By: #### B TANNING SOLUTION MAKER, CMP #### [facility] [address] [address] [address] Arden Magallon Calcium [Mass/Vol] 9.7 mg/dL Normal 8.5-10.1 [facility] Comment on above: Performed By: #### B TANNING SOLUTION MAKER, CMP #### [facility] [address] [address] [address] Arden Magallon Chloride [Moles/Vol] 106 mmol/L Normal 98-107 [facility] Comment on above: Performed By: #### B TANNING SOLUTION MAKER, CMP #### [facility] [address] [address] [address] Arden Magallon CO2 [Moles/Vol] 25.2 mmol/L Normal 21.0-32.0 [facility] Comment on above: Performed By: #### B TANNING SOLUTION MAKER, CMP #### [facility] [address] [address] [address] Arden Magallon Creatinine [Mass/Vol] 1.06 mg/dL Critically high 0.55-1.02 [facility] Comment on above: Performed By: #### B TANNING SOLUTION MAKER, CMP #### [facility] [address] [address] [address] Arden Magallon EGFR-AF [place] 60 mL/min/1.73m2 Normal >=60 [facility] Comment on above: Performed By: #### B TANNING SOLUTION MAKER, CMP #### [facility] [address] [address] [address] Arden Magallon EGFR-NON AF [place] 49 mL/min/1.73m2 Critically low >=60 [facility] Comment on above: Performed By: #### B TANNING SOLUTION MAKER, CMP #### [facility] [address] [address] [address] Arden Magallon Globulin (S) [Mass/Vol] 3.4 g/dL Normal [facility] Comment on above: Performed By: #### B TANNING SOLUTION MAKER, CMP #### [facility] [address] [address] [address] Arden Magallon Glucose [Mass/Vol] 123 mg/dL Critically high 74-106 [facility] Comment on above: Performed By: #### B TANNING SOLUTION MAKER, CMP #### [facility] [address] [address] [address] Arden Magallon Potassium [Moles/Vol] 3.8 mmol/L Normal 3.5-5.1 [facility] Comment on above: Performed By: #### B TANNING SOLUTION MAKER, CMP #### [facility] [address] [place] [address] Dr. Arden Magallon Protein [Mass/Vol] 7.6 g/dL Normal 6.4-8.2 [facility] Comment on above: Performed By: #### B TANNING SOLUTION MAKER, CMP #### [facility] [address] [place] [address] Dr. Arden Magallon Sodium [Moles/Vol] 139 mmol/L Normal 136-145 [facility] Comment on above: Performed By: #### B TANNING SOLUTION MAKER, CMP #### [facility] [address] [place] [address] Dr. Arden Magallon Urea nitrogen [Mass/Vol] 22.0 mg/dL Critically high 7.0-18.0 [facility] Comment on above: Performed By: #### B TANNING SOLUTION MAKER, CMP #### [facility] [address] [place] [address] Dr. Arden Magallon Urea nitrogen/Creatinine [Mass ratio] 20.8 mg/mg Normal [facility] Comment on above: Performed By: #### B TANNING SOLUTION MAKER, CMP #### [facility] [address] [place] [address] Dr. Arden Magallon ECHOCARDIO M/2D COMPLETEon 0 04-06-2022 ECHOCARDIO M/2D COMPLETE Patient: ZORAIDA BARRIOS Exam Date: 04/06/2022 : 1935 Gender:F Ordering : SUSAN LONG Admission #: [id number] Family : Order #: [id number] CLICK HERE TO VIEW EXAM ECHOCARDIOGRAM REPORT [...] Area(A4C): 16.40 cm2 Left Atrium Systolic Volume(A2C): 39188 mm3 Left Atrium Systolic Volume(A4C): 45700 mm3 Mitral Valve MV E to A Ratio: 0.60 Deceleration Whiteside: 2080 mm/s2 Mitral Valve A-Wave Peak Velocity: 103.00 cm/s Mitral Valve E-Wave Peak Velocity: 62.20 cm/s Right Ventricle RV Internal Diastolic Dimension: 3.04 cm Aorta AO Root Diam: 2.90 cm Aortic Valve AoV Area (Peak Bucky): 1.86 cm2 Deceleration Whiteside: 1080 mm/s2 Pressure Half-Time: 976 ms Peak [...] Grubbs M.D. on 04/06/2022 at 16:27 Normal [facility] US KIDNEYSon 04-06-2022 US KIDNEYS [...] by: BERTHA SOLIZ Date: 2022-04-06 16:45 Normal [facility] BNPon 03-17-2022 Natriuretic peptide B (Bld) [Mass/Vol] 193.0 pg/mL Normal <=1,800.0 [facility] Comment on above: Performed By: #### B TANNING SOLUTION MAKER, CMP #### [facility] [address] [place] [address] Dr. Arden Magallon CBC AUTO DIFFon 03-17-2022 BASO # 0.1 103/ul Normal 0.0-0.1 [facility] Comment on above: Performed By: #### B TANNING SOLUTION MAKER, CMP #### [facility] [address] [place] [address] Dr. Arden Magallon Basophils/100 WBC (Bld) 0.9 % Normal 0.2-2.0 [facility] Comment on above: Performed By: #### B TANNING SOLUTION MAKER, CMP #### [facility] [address] [place] [address] Dr. Arden Magallon EO # 0.4 103/ul Normal 0.0-0.7 [facility] Comment on above: Performed By: #### B TANNING SOLUTION MAKER, CMP #### [facility] [address] [place] [address] Dr. Arden Magallon Eosinophils/100 WBC (Bld) 4.7 % Normal 0.9-7.0 [facility] Comment on above: Performed By: #### B TANNING SOLUTION MAKER, CMP #### [facility] [address] [place] [address] Dr. Arden Magallon Erythrocyte distribution width (RBC) [Ratio] 14.2 % Normal 11.0-15.0 [facility] Comment on above: Performed By: #### B TANNING SOLUTION MAKER, CMP #### [facility] [address] [place] [address] Dr. Arden Magallon Hematocrit (Bld) [Volume fraction] 43.1 % Normal 36.0-48.0 [facility] Comment on above: Performed By: #### B TANNING SOLUTION MAKER, CMP #### [facility] [address] [place] [address] Dr. Arden Magallon Hemoglobin (Bld) [Mass/Vol] 14.1 g/dL Normal 12.0-16.0 [facility] Comment on above: Performed By: #### B TANNING SOLUTION MAKER, CMP #### [facility] [address] [place] [address] Dr. Arden Magallon IG # 0.04 10e3/ul Critically high 0.00-0.03 [facility] Comment on above: Performed By: #### B TANNING SOLUTION MAKER, CMP #### [facility] [address] [place] [address] Dr. Arden Magallon IG % 0.5 % Normal 0.0-0.5 [facility] Comment on above: Performed By: #### B TANNING SOLUTION MAKER, CMP #### [facility] [address] [place] [address] Dr. Arden Magallon LYMPH # 3.0 103/ul Normal 1.2-3.8 [facility] Comment on above: Performed By: #### B TANNING SOLUTION MAKER, CMP #### [facility] [address] [place] [address] Dr. Arden Magallon Lymphocytes/100 WBC (Bld) 34.2 % Normal 20.5-60.0 [facility] Comment on above: Performed By: #### B TANNING SOLUTION MAKER, CMP #### [facility] [address] [place] [address] Dr. Arden Magallon MANUAL DIFF REQ NO Normal [facility] Comment on above: Performed By: #### B TANNING SOLUTION MAKER, CMP #### [facility] [address] [place] [address] Dr. Arden Magallon MCH (RBC) [Entitic mass] 31.3 pg Normal 26.7-34.0 [facility] Comment on above: Performed By: #### B TANNING SOLUTION MAKER, CMP #### [facility] [address] [place] [address] Dr. Arden Magallon MCHC (RBC) [Mass/Vol] 32.7 g/dL Normal 29.9-35.2 [facility] Comment on above: Performed By: #### B TANNING SOLUTION MAKER, CMP #### [facility] [address] [place] [address] Dr. Arden Magallon MCV (RBC) [Entitic vol] 95.8 fL Normal 81.0-99.0 [facility] Comment on above: Performed By: #### B TANNING SOLUTION MAKER, CMP #### [facility] [address] [place] [address] Dr. Arden Magallon MONO # 1.2 103/ul Critically high 0.3-0.8 [facility] Comment on above: Performed By: #### B TANNING SOLUTION MAKER, CMP #### [facility] [address] [place] [address] Dr. Arden Magallon Monocytes/100 WBC (Bld) 13.5 % Critically high 1.7-12. 0 [facility] Comment on above: Performed By: #### B TANNING SOLUTION MAKER, CMP #### [facility] [address] [place] [address] Dr. Arden Magallon NEUT # 4.1 103/ul Normal 1.4-6.5 [facility] Comment on above: Performed By: #### B TANNING SOLUTION MAKER, CMP #### [facility] [address] [place] [address] Dr. Arden Magallon Neutrophils/100 WBC (Bld) 46.2 % Normal 43.0-75.0 [facility] Comment on above: Performed By: #### B TANNING SOLUTION MAKER, CMP #### [facility] [address] [place] [address] Dr. Arden Magallon Platelet mean volume (Bld) [Entitic vol] 11.2 fL Normal 9.5-13.5 [facility] Comment on above: Performed By: #### B TANNING SOLUTION MAKER, CMP #### [facility] [address] [place] [address] Dr. Adren Magallon PLT 160 103/ul Normal 150-450 [facility] [facility] Comment on above: Performed By: #### B TANNING SOLUTION MAKER, CMP #### [facility] [address] [place] [address] Dr. Arden Magallon RBC 4.50 106/ul Normal 4.20-5.40 [facility] Comment on above: Performed By: #### B TANNING SOLUTION MAKER, CMP #### [facility] [address] [place] [address] Dr. Arden Magallon WBC 8.9 103/ul Normal 4.0-11.0 [facility] Comment on above: Performed By: #### B TANNING SOLUTION MAKER, CMP #### [facility] [address] [place] [address] Dr. Arden Magallon PROF 14(COMP METB)on 022 Albumin [Mass/Vol] 4.0 g/dL Normal 3.4-5.0 [facility] Comment on above: Performed By: #### B TANNING SOLUTION MAKER, CMP #### [facility] [address] [place] [address] Dr. Arden Magallon Albumin/Globulin [Mass ratio] 1.2 {ratio} Normal [facility] Comment on above: Performed By: #### B TANNING SOLUTION MAKER, CMP #### [facility] [address] [place] [address] Dr. Arden Magallon ALP [Catalytic activity/Vol] 74 U/L Normal 46-116 [facility] Comment on above: Performed By: #### B TANNING SOLUTION MAKER, CMP #### [facility] [address] [place] [address] Dr. Arden Magallon ALT [Catalytic activity/Vol] 28 U/L Normal 14-59 [facility] Comment on above: Performed By: #### B TANNING SOLUTION MAKER, CMP #### [facility] [address] [place] [address] Dr. Arden Magallon Anion gap [Moles/Vol] 11.9 mmol/L Normal [facility] Comment on above: Performed By: #### B TANNING SOLUTION MAKER, CMP #### [facility] [address] [place] [address] Dr. Arden Magallon AST [Catalytic activity/Vol] 18 U/L Normal 15-37 [facility] Comment on above: Performed By: #### B TANNING SOLUTION MAKER, CMP #### [facility] [address] [place] [address] Dr. Arden Magallon Bilirubin [Mass/Vol] 0.4 mg/dL Normal 0.2-1.0 [facility] Comment on above: Performed By: #### B TANNING SOLUTION MAKER, CMP #### [facility] [address] [place] [address] Dr. Arden Magallon Calcium [Mass/Vol] 9.7 mg/dL Normal 8.5-10.1 [facility] Comment on above: Performed By: #### B TANNING SOLUTION MAKER, CMP #### [facility] [address] [place] [address] Dr. Arden Magallon Chloride [Moles/Vol] 105 mmol/L Normal 98-107 [facility] Comment on above: Performed By: #### B TANNING SOLUTION MAKER, CMP #### [facility] [address] [place] [address] Dr. Arden Magallon CO2 [Moles/Vol] 26.3 mmol/L Normal 21.0-32.0 [facility] Comment on above: Performed By: #### B TANNING SOLUTION MAKER, CMP #### [facility] [address] [place] [address] Dr. Arden Magallon Creatinine [Mass/Vol] 1.31 mg/dL Critically high 0.55-1.02 [facility] Comment on above: Performed By: #### B TANNING SOLUTION MAKER, CMP #### [facility] [address] [place] [address] Dr. Arden Magallon EGFR-AF [place] 47 mL/min/1.73m2 Critically low >=60 [facility] Comment on above: Performed By: #### B TANNING SOLUTION MAKER, CMP #### [facility] [address] [place] [address] Dr. Arden Magallon EGFR-NON AF [place] 38 mL/min/1.73m2 Critically low >=60 [facility] Comment on above: Performed By: #### B TANNING SOLUTION MAKER, CMP #### [facility] [address] [address] [address] Arden Magallon Globulin (S) [Mass/Vol] 3.3 g/dL Normal [facility] Comment on above: Performed By: #### B TANNING SOLUTION MAKER, CMP #### [facility] [address] [place] [address] Dr. Arden Magallon Glucose [Mass/Vol] 111 mg/dL Critically high 74-106 [facility] Comment on above: Performed By: #### B TANNING SOLUTION MAKER, CMP #### [facility] [address] [place] [address] Dr. Arden Magallon Potassium [Moles/Vol] 4.2 mmol/L Normal 3.5-5.1 [facility] Comment on above: Performed By: #### B TANNING SOLUTION MAKER, CMP #### [facility] [address] [place] [address] Dr. Arden Magallon Protein [Mass/Vol] 7.3 g/dL Normal 6.4-8.2 [facility] Comment on above: Performed By: #### B TANNING SOLUTION MAKER, CMP #### [facility] [address] [place] [address] Dr. Arden Magallon Sodium [Moles/Vol] 139 mmol/L Normal 136-145 [facility] Comment on above: Performed By: #### B TANNING SOLUTION MAKER, CMP #### [facility] [address] [place] [address] Dr. Arden Magallon Urea nitrogen [Mass/Vol] 24.0 mg/dL Critically high 7.0-18.0 [facility] Comment on above: Performed By: #### B TANNING SOLUTION MAKER, CMP #### [facility] [address] [place] [address] Dr. Arden Magallon Urea nitrogen/Creatinine [Mass ratio] 18.3 mg/mg Normal [facility] Comment on above: Performed By: #### B TANNING SOLUTION MAKER, CMP #### [facility] [address] [place] [address] Dr. Arden Magallon TROPONIN, HIGH SENSITIVITYon 03-17-2022 HSTROP 8.6 pg/mL Normal 4.0-51.3 [facility] Comment on above: Result Comment: CUT- OFF POINTS HAVE BEEN ESTABLISHED BASED ON THE FOURTH UNIVERSAL DEFINITIONS OF MYOCARDIAL INFARCTION. THE UPPER REFERENCE LIMIT (URL) OF TROPONIN, DEFINED THE 99TH PERCENTILE OF cTnI DISTRIBUTION IN A REFERENCE POPULATION, HAS BEEN CONFIRMED THE DECISION THRESHOLD FOR [place] DIAGNOSIS. Performed By: #### C BC #### [facility] [address] [place] [address] Dr. Arden Magallon Coding Summary.on 03-04-2022 Coding Summary. CD:[id number] Gh 0bWw+PGhlYWQ+XD6PMUPgJ 09atTDilQ0PF7mITS6JTCY CHHNQTQ8CEX2cuIM8UOsoB 2VybiAv QicjwWNlFR62FZh4XGP2gD hhWGqliJ9cnGNeR8x8ZuLz ST97sR70HDfgIQYtHfO3Ws ZpbjsgbWFy E5wnQnSjiRYjGke+PHRhYm xlIHdpZHRoPScxMDAlJyBz vNbzFL2aOm5fBPMeKKYukC xhcHNlOiBj y7ohQGYiZVtdUN3mhNeeB6 PyaQA8BDYkk1w1Sa04qAW+ ZTZbENX9mNhuXGmss176Aa Xam1hvDOX5 hXPqRBjvDHF2K28hf3Q4MV MpUCWyXQS3gUN5wW7qqXql rduaN2AbfLPrWgK1ZZK7nJ BasE4zbJfl bydxxW1hEwr+L62DOZ1FJI LGUL2BKcf9W1PzKbaudLY+ CS20YCEsWR46jFYcdBHkp6 pgjSy4YdNl WKVrLQF3xZydGYrwx3RuGD CbY72ndQZbs0Y6QHFowNoo tRWkQvSqaZP5hC1sQRymgt hxz0pkkicg Cfoey7cgjd62jS17X21zTF mbJXIxCXO5XJOyMOCmwIfh vw3qlG6zSo4+CWbov7fzg7 einEk6YuZf DBTlimXjcYbpPVB3r1UmXg 10M6IvnPegi2PbMcf8mr18 zFCqc0C2qIF4TMcmMTTugT 3rXFvnFmC6 OBOcOcKjjL77yTStREakNt 2nlQbrwRqpFC8cIFAablmy OXAymT6mUBPmdUPmbOchDO 4wNTBpbjtm z001HtWiJRD1BOLmtLAoR2 XptX8dKyPtRZKxQZEgX9Hb lJBxEJhkB600XWwcUkK4UK FrngZcW8Ne XOKhaIdvDsO6p8M3Rv1Jf2 AvvpnrMWL6GIciVUS5ClL2 StEvVrC4V7FnHtw6ZSOtsI plVI6aV5Hu VKJroqjiernpvOX0PEHpUC OyjG69sVWyCIvaPz9ib3F7 p512WITmGXRkxT90Su7ivF ogMTBwdCBU qC3xqayag0jqlgsnXzIlDH GlHLu5VMs9JUErqTpjKxKx DYF3ToK5DXX8cONknI4knU vybbzpzK0l Oyc+C08zkH7oQHY1DJW2lj xdSVDwwkUbSK52XF25J1Ii PjwvdGFibGU+PGRpdiBzdH xqUN9iBaUo p7cmf8IjAHjlW7QrMUQrGE dwHrx3CJWhYPX4wNA5rQ3s PEEoIWklz7T5aIS5I3Qadt Tobb5uh3wl JMIsJArvG66vdGVkz1E2KJ HxaFG3ESWbbBukIfOcqE41 Oyc+JAXchYurn7NsEqsui2 pjo0alwWo3 EfYoJYIabuEteJlvBEE4i8 NmXg42T69bGFiqVKGzCPRk KNWuQJFpaWdtsb2jtB5oBo 8+PGNvbCB3 pFN5lY7oOUEqPoX0ETvbW0 40ZvCauWTaGetco7hcv2if qIg5DpJpUAVnhlLqbPaaVO E3u7GkTr92 D05uPGnpBIUzDJUeEQExHN KftVlyll5yeP9gEl9+PC9j c2xfxu95wJ50aMC+PHRkIH I0fVnaZMmh IZWhxF4pQWuxBkJ6BXAdJh SzwJ98bBWhISfbIu7tjZun xIjdCF3jZMQxvykvr902Jw Ogv6czTRLm iVXzCQtmHGM4W77un5I1AJ KePMTjWUC4aZD3cO5wfMep bjogbGVmdDsgdmVydGljYW gtFNupX192 IHRvcDsnPlBhdGllbnQgTm RgNYc5Z7DpUzq6CIDedSpu EB5qbYSlJBdnVu5bfRtuqJ scNB1mUHQm lyrzi337RpVut9emTCOzjL KaQVerVVQ6U04qu8X5ZVYc WKVgAPP8eMX8uU5xsBbxvd ogbGVmdDsg hrMfpNsjQHweRTbcK913EB RvcDsnPkJpcnRoIERhdGU6 UF89SI94eRJzn5Z2hYH6N5 BhZGRpbmct yhnlgXE1BWXwZOUppF73Zt 1diClsRj5mDOSmLZI4RZAy kDYnR6UyqO7qGzHbCLRrXP GcH2QyfJQb MDsgZ541UOprQdZ4WIYbqt ZgG1GfYZZetWuwXjS8i4A3 Mo7QQ1W9LT94VV37mVYrl2 T9ySD2G7Qp QDJsgmczsoxjgHV4KSVfHJ KxxG30Sv9nqPgzOe4mXGWd KXL4NYYjbRDkV8SkfM1jUu AjMDAwMDAw N1GwpXIdQRtcY094BBfyEx Y1HHXxcwYgN8CqXAXryTpo YcD6e8I4Py7TNJx6GS16TX 40mZSim1K5 yPR5V3XfNMJmgrzhqpnclF K0JCDpTRFccC67Np2ipEyf Ft0lOLEhQKY4ZGCqwYQjD0 DvrS5fYrHr KYWgBXOwK9FzkDKiBGuwH4 42LWyrKnS9TQVcgxZsN8Pf CVKhcFdpQmQ6w0O0Ch5FQM IgSJ71OEI7 uIG5OC08FQ23I0HmRzlrgI FibGU+PHRhYmxlIHdpZHRo DTxcHEAoNoFmbFjvQI4vPt 9yZGVyLWNv cXyrgDTmEzTom7haEEMaGY kdIS4yqPeeC8DizTJ2QNTn e1v2Yh79S13vL9SmaYE+PG LouRN1lKP4 jG3hIxVbBlS8BQrwR251Uf ErcGXxVkagm8jfc9qqmFa9 DoZ1DXBwasKxjAxiHTU3r5 MsFc44E10o IHdpZHRoPSIxNSUiIHZhbG lehw4kiF8iFn6+PGNvbCB3 nJB8jA7ePbCxUjA5KPpbI3 49InRvcCIv Acfqp7usw8pdzLc4HwHoZR XvftKjvHxnDHS9y4JsMr32 J1ZlfWimw1IrBpe5ab69cO Jli8S8xZD6 Q6UxAKVavqfkhGVpjXeiVC 3rHUVbfbilHDDzoR6xCVNj B7q9XdNvSzU9QTdjY5Lnrc B0LAZmgREi CZieTGG3B57rz3D8FLQvHL WpEPE1kRM6tE7vtTjunkxi bGVmdDsgdmVydGljYWwtYW ujH398AVAu dKihENSpkD9eUPVqkLTguO dzGK6kYGOibncyVvVCXCBm LCBERUxFRTwvdGQ+PHRkIH O8dKipGGcx ZOYxgS6cXJFaD6l4MvWcWy V4QIjrD9TlGALhzpfyQx29 kS5kGsHsMuF5KXimK7Jyrf C1NSNdiXFq PZjkKSE7J34nc8K4HUHyRU ChTQR0eUG1lX0nwCeoyivn bGVmdDsgdmVydGljYWwtYW kmY279XIUs iSbpDxTlMlW6XjR7AdJ0Q7 XaNic3TQTnsRpnCU1czYQf DYbuGs2umVjjkEyeRU0uAK BpbjtwYWRk xK5bFWQgwPNsnRdiCD2aKT Whnzakf262VaKpAHF3UQZi qCVcX8ZzuA6sTiNdRWAcYI IjC1PhwNIg KVcxH501ZVerYsB0WQXfab LvL2ZbGAMsgIdfTyC4a6P0 Fm12GtBNGVXzuigkuMX+PH FtJAQ7cWvd MYuwABCwpE9uYODiD7u4Ef VyHbH3GHdpT2TcGOTfiagt Qa73lA3pSlWmYeX5YNysC9 WzpaA9ZOAa aTVvGSifYDC8J95zm9W5EN EkLRToGBQ5sMD7mG3wpEwb bjogbGVmdDsgdmVydGljYW kjHLquI942 IHRvcDsnPkZlbWFsZTwvdG Q+YPWoOBI2mQvyFVxfYVSn hL8aXSCuD4c6MkJdQrJ0KM cjI1WjKXIh easpQv73bI1aTaChVdV5NP ekC6ZaupL2NWDwmFUmWSfo BIH4Z43bv6T1GAFsQYPoQQ K8sYA1qM5u bGlnbjogbGVmdDsgdmVydG ndVTbnFCfrA552WTHhcGjx QpCiOEKiFH0eoBsybTY+PC 93bv96D5Cw RwflXzw2LEEyHUH5kSC7gP 7kHVInXBiem3V2lEC2N8Db qcUlaa3jv4qyWUAyDKcfG4 6ajOLjc7W5 ZSKizLJ3XWGdeToaFlXvhI 93Oyc+MWWckSjsv4QaWomn w2tfi7fmzVw4QiTtFUWpby FsaWduPSJ0 x1WtXr65L30nVBnlEIWuHH HkTSWwPMKxkAifnk0hgR0x Ii8+RQBsmIL2bAM2xS4qUr AxYkK1VQvu M643HzFoqKByBixxw4sgp2 zbfFe8YuXwUXYzcjFitTds KED0m7AzMn46U8AmoOxbv9 ZxWzz3wj66 nYYhx4Y8yPO4F0JpFUEdtd mrdZIbaQgnLP1kIEAsxcue IQZjbQ2eHLXtE7q9PjUzFf Y8NHiuE0Jm ipT2ICBhhDQdFZQxgAQMxJ 8ztlgso4vxvylgKdMnRVWm XEu7SWz9YYZefDujYoPuNP T3TbU7MSF9 qFJkvK7fzXqanyihjE7wNj c+AUq2d2sryTMeJR9qrCY2 VL39ZZ59nVTab9C0wYE5G8 BhZGRpbmct wisrjNE3BHNxHCWgjN51Xt 7ilOjhMu7eUZPvGJO9HUXg nDVnV4PptW9tNeZgFOQoUG CcS4LhzXPx CJdhL890TDpzIvY6RAWamh YxW0JxWWIdfRvuEbO7p5J2 Ck8QMM96LS86GW08hYSdu8 O4nUU4S5Xt BBHxcparxxpyiSY9KGXoJC VswT80Ot2zmDrhBm0sGHSl PON3BEQmeFVzU7ObiW0fSj AjMDAwMDAw D7YfsQDrEJhrX651NEnzTz J8ZEEpaiPrG0CqFFQafUag PuF5n1E7Xy6TJq79II99SC 37pBXfk3L6 oDO4X0RsCWJxqyljtlczgC C7SIPrJLVpfS97Bp9shYjb Dq2xBSQoEYF7VVLjdHNqH8 HkwY2wViDe YWBiIEVaY7VjjPVpDYhjR4 25SMgzYlM1DLCjykUzD1Wc GXIcbQufPzX3r2T2Mu5IVW nayul2G2Rg PjwvdHI+HY59ULSsLA64tX ScwTLyr7ctrJp5PpKuKXZh LYZ1rPnvUCvvn3FwCHOoA4 6vnNEfu9N0 IGNv (more content not included)... Normal [facility] Auto Diffon 02-24-2022 Basophils/100 WBC (Bld) 4.4 % High 0.0-2.0 [facility] Comment on above: Order Comment: Order Added by Discern Expert. Performed By: #### 1 [id number], 7011700, 23160631, 4293058, 5063846 #### [facility] [address] [place] [address] Basophils/Leukocytes Auto (Bld) [Pure # fraction] 0.3 E9/L High 0.0-0.2 [facility] Comment on above: Order Comment: Order Added by Discern Expert. Performed By: #### 1 [id number], 4722664, 13845805, 9658626, 8713903 #### [facility] [address] [place] [address] Eosinophils/100 WBC (Bld) 3.8 % Normal 0.0-8.0 [facility] Comment on above: Order Comment: Order Added by Discern Expert. Performed By: #### 1 [id number], 0117179, 29603481, 0050843, 7747128 #### [facility] [address] [place] [address] Eosinophils/Leukocytes Auto (Bld) [Pure # fraction] 0.3 E9/L Normal 0.0-0.5 [facility] Comment on above: Order Comment: Order Added by Discern Expert. Performed By: #### 1 [id number], 6688089, 58937088, 2452458, 1238875 #### [facility] [address] [place] [address] Lymphocytes/100 WBC (Bld) 31.3 % Normal 14.0-50.0 [facility] Comment on above: Order Comment: Order Added by Discern Expert. Performed By: #### 1 4972558, 9198900, 51358943, 7235183, 5208450 #### [facility] [address] [place] [address] Lymphocytes/Leukocytes Auto (Bld) [Pure # fraction] 2.3 E9/L Normal 1.0-4.0 [facility] Comment on above: Order Comment: Order Added by Andrew Expert. Performed By: #### 1 3999660, 7396521, 39057898, 2838038, 6733913 #### [facility] [address] [place] [address] Monocytes/100 WBC (Bld) 12.8 % Normal 4.0-14.0 [facility] Comment on above: Order Comment: Order Added by Andrew Expert. Performed By: #### 1 5017085, 9770204, 48429806, 7585926, 5133889 #### [facility] [address] [place] [address] Monocytes/Leukocytes Auto (Bld) [Pure # fraction] 0.9 E9/L Normal 0.2-1.0 [facility] Comment on above: Order Comment: Order Added by Andrew Expert. Performed By: #### 1 [id number], 1385382, 87252207, 6876121, 3384366 #### [facility] [address] [place] [address] Neutrophils/100 WBC (Bld) 47.7 % Normal 36.0-75.0 [facility] Comment on above: Order Comment: Order Added by Andrew Expert. Performed By: #### 1 8015623, 7292869, 48855323, 9741599, 4297574 #### [facility] [address] [place] [address] Neutrophils/Leukocytes Auto (Bld) [Pure # fraction] 3.5 E9/L Normal 2.0-7.5 [facility] Comment on above: Order Comment: Order Added by Discern Expert. Performed By: #### 1 9534380, 1578469, 64338534, 3250574, 7043602 #### [facility] [address] [place] [address] BMPon 02-24-2022 Creatinine [Mass/Vol] 0.9 mg/dL Normal 0.5-1.3 [facility] Comment on above: Performed By: #### 1 4153911, 9504860, 51269217, 6046594, 2256675 #### [facility] [address] [place] [address] Urea nitrogen [Mass/Vol] 20 mg/dL Normal 5-21 [facility] Comment on above: Performed By: #### 1 5629183, 0656140, 46857639, 8037470, 8491741 #### [facility] [address] [place] [address] Urea nitrogen/Creatinine [Mass ratio] 22 No Units High 10-20 [facility] Comment on above: Performed By: #### 1 5024215, 8285629, 09301483, 7840946, 0152822 #### [facility] [address] [place] [address] Anion gap [Moles/Vol] 13 mmol/L Normal 6-16 [facility] Comment on above: Performed By: #### 1 4008792, 5613356, 35655700, 1012942, 7661011 #### [facility] [address] [place] [address] Calcium [Mass/Vol] 9.9 mg/dL Normal 8.9-11.1 [facility] Comment on above: Performed By: #### 1 3539587, 2155423, 11382629, 9924405, 6848667 #### [facility] [address] [place] [address] Chloride [Moles/Vol] 104 mmol/L Normal 101-111 [facility] Comment on above: Performed By: #### 1 0620510, 0303834, 09743986, 1970709, 6877449 #### [facility] [address] [place] [address] CO2 [Moles/Vol] 24 mmol/L Normal 21-31 [facility] Comment on above: Performed By: #### 1 8798156, 2906371, 83363536, 0118317, 1275202 #### [facility] [address] [place] [address] Glucose [Mass/Vol] 136 mg/dL Normal 55-199 [facility] Comment on above: Result Comment: If t his glucose result represents a fasting glucose, interpretation should refer to the following reference range: 55-99 mg/dL Performed By: #### 1 0373262, 0275209, 02391563, 0115423, 6450363 #### [facility] [address] [place] [address] Potassium [Moles/Vol] 3.7 mmol/L Normal 3.5-5.3 [facility] Comment on above: Performed By: #### 1 4066369, 8930600, 24946813, 3218767, 8979963 #### [facility] [address] [place] [address] Sodium [Moles/Vol] 137 mmol/L Normal 135-145 [facility] Comment on above: Performed By: #### 1 7869094, 6606256, 34181273, 6743263, 5951191 #### [facility] [address] [place] [address] CBC w/ Auto Diffon 2 Erythrocyte distribution width (RBC) [Ratio] 15.3 % High 10.9-14.2 [facility] Comment on above: Performed By: #### 1 0510863, 9128910, 26675314, 7075434, 2528838 #### [facility] [address] [place] [address] Hematocrit (Bld) [Volume fraction] 43.0 % Normal 34.0-46.0 [facility] Comment on above: Performed By: #### 1 4347787, 7092752, 22735639, 1798935, 1253702 #### [facility] [address] [place] [address] Hemoglobin (Bld) [Mass/Vol] 14.4 g/dL Normal 12.0-16.0 [facility] Comment on above: Performed By: #### 1 8330760, 3782321, 47034227, 9941025, 6857872 #### [facility] [address] [place] [address] MCH (RBC) [Entitic mass] 31.0 pg Normal 27.0-34.0 [facility] Comment on above: Performed By: #### 1 5441385, 4753491, 32499993, 2889217, 0160834 #### [facility] [address] [place] [address] MCHC (RBC) [Mass/Vol] 33.6 g/dL Normal 31.4-36.0 [facility] Comment on above: Performed By: #### 1 2023839, 2963081, 84699857, 3854872, 7358082 #### [facility] [address] [place] [address] MCV (RBC) [Entitic vol] 92.2 fL Normal 80.0-100.0 [facility] Comment on above: Performed By: #### 1 9542934, 0553027, 79797578, 9230738, 1958338 #### [facility] [address] [place] [address] Platelet mean volume (Bld) [Entitic vol] 9.2 fL Normal 6.4-10.8 [facility] Comment on above: Performed By: #### 1 9083356, 8431457, 14718510, 4257530, 5304974 #### [facility] [address] [place] [address] Platelets (Bld) [#/Vol] 137.0 E9/L Low 150.0-500.0 [facility] Comment on above: Performed By: #### 1 8836212, 1654333, 02654297, 1528013, 6421432 #### [facility] [address] [place] [address] RBC (Bld) [#/Vol] 4.7 E12/L Normal 4.3-5.9 [facility] Comment on above: Performed By: #### 1 3943194, 7102328, 10681604, 8944004, 9632228 #### [facility] [address] [place] [address] WBC corrected for nucl RBC Auto (Bld) [#/Vol] 7.3 E9/L Normal 4.0-11.0 [facility] Comment on above: Performed By: #### 1 1826121, 2399533, 95618997, 9184643, 2938960 #### [facility] [address] [place] [address] CHEMISTRYOrdered By: SYSTEM SYSTEM on 02-24-2022 Anion [...] 25.4 s Normal 25.1 - 36.5 second(s) [facility] Auto Coag INR Coag (PPP) [Relative time] 1.1 {INR} Invalid Interpretation Code [facility] Coag PT Coag (PPP) [Time] 13.4 s High 10.2 - 12.9 second(s) [facility] [place] Coag CT Head or Brain w/o [...] MD Transcribed by: KHANH Technologist: EMELINA Normal [facility] Consent for Treatmenton 02-06 Consent for Treatment [id number] 0CD:127 [facility] Discharge Instructionson Discharge Instructions [id number] 0CD:127 Normal [facility] ED Clinical Summaryon 2021 ED Clinical Summary [place] [id number] ED Clinical Summary Person Information Name: ZORAIDA BARRIOS/[place]Trevon Age: 86 Years : 1935 Sex: Female Language: [place] PCP: LACEY FREY MD Marital Status: Single [...] 02/24/2022 10:32:06 02/24/2022 10:32:06 02/24/2022 10:32:06 ADDRESS: [address] [place] [id number] [facility] DOC NOTES: MEDICAL INFORMATION: Prescriptions Given: PATIENT EDUCATION INFORMATION: Instructions: Hypertension, Adult Follow up: With: Address: When: LACEY TK [address] [place], [place] [id number] [facility] (1) In 3 days [...] any new symptoms. DIAGNOSIS: 1:Accelerated hypertension Normal [facility] ED Note-Physicianon 02-25-20 ED Note-Physician Basic [...] reported headache. 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 In the emergency room [...] LACEY FREY In 3 days 02/27/[address] [place] [id number] Business (1) Additional Instructions: Increase Losartan [...] (02/24/22 0 (more content not included)... [facility] Comment on above: Result Comment: Elec [...] ? Avoi (more content not included)... Normal [facility] ED Patient Summaryon 022 ED Patient Summary [address] [address] Patient Discharge Instructions Person Information Name: ZORAIDA BARRIOS Age: 86 Years Arrival Date: 02/24/2022 08:11:05 Discharge Diagnosis: 1:Accelerated hypertension Primary Care Physician: LACEY FREY MD Provider Information Primary Provider: Demond Green M.D. [employer] Tank Tender:None The exam and treatment you received in the Emergency Department were for an urgent problem and are not intended as complete care. It is important that you follow up with a doctor, nurse practitioner, or physician?s resident assistant for ongoing care. If your symptoms [...] Follow-up Instructions: With: Address: When: LACEY FREY [address] [place] [address] [employer] In 3 days 02/27/2022 Comments: Increase Losartan [...] opioids can be used to help relieve [id number] pain and are often prescribed following a [...] ? Visit (more content not included)... [facility] HEMATOLOGYOrdered By: SYSTEM SYSTEM on 02-24-2022 Basophils/100 WBC (Bld) 4.4 % High 0.0 - 2.0 % [facility] Basophils/Leukocytes Auto (Bld) [Pure # fraction] 0.3 E9/L High 0.0 - 0.2 E9/L [facility] Eosinophils/100 WBC (Bld) 3.8 % Normal [...] 4.7 E12/L Normal 4.3 - 5.9 E12/L [facility] WBC corrected for nucl RBC Auto (Bld) [#/Vol] 7.3 E9/L Normal 4.0 - 11.0 E9/L [facility] PT & PTTon 02-24-2022 INR Coag (PPP) [Relative time] 1.1 {INR} Invalid Interpretation Code [facility] Comment on above: Result Comment: INR results are specifically intended to assess patients stabilized on long-term Anticoagulation therapy suggested INR?s ?Less Intensive Anticoagulation? 2.0 ? 3.0 Conventional Range 3.0 ? 4.5 Performed By: #### 1 [id number], [id number], [id number] #### [facility] [address] [place] [address] PT Coag (PPP) [Time] 13.4 second(s) High 10.2-12.9 [facility] Comment on above: Performed By: #### 1 [id number], [id number], [id number], [id number] #### [facility] [address] [place] [address] aPTT Coag (PPP) [Time] 25.4 second(s) Normal 25.1-36.5 [facility] Comment on above: Result Comment: Hepa rin therapeutic range (represented by Anti-Factor Xa activity of 0.2 - 0.4 U/mL) corresponds to PTT of 56.6 - 109.0 sec. Performed By: #### 1 [id number], [id number], [id number] #### [facility] [address] [place] [address] Troponin 0 Hr.on 02-24-2022 Troponin I.cardiac [Mass/Vol] 8.10 pg/mL Low 10.10-27.10 [facility] Comment on above: Result Comment: The 95% CI (Confidence Interval) PPV (Positive Predictive Value) for myocardial infarction in females is 38 pg/mL, in males 51 pg/mL. The results should be used in conjunction with clinical conditions of myocardial infarction. (Access High Sensitivity Troponin I Instructions For Use, Gwendolyn [place], May 2018) Performed By: #### 1 [id number], [id number], [id number], [id number] #### [facility] [address] [place] [address] XR Chest Single Viewon 02-24 XR Chest [...] am EDT, Trevon Tyler M.D., DISAGREE Normal [facility] Vital Signs Date Time Vital Sign Value Performing Clinician Facility 05-12-2025 13:31-0400 Diastolic blood pressure 80 mm[Hg] Lacey Frey MD Work Phone: [facility] 05-12-2025 13:31-0400 Systolic blood pressure 180 mm[Hg] Lacey Frey MD Work Phone: [facility] 05-12-2025 13:21040 Body height 157.48 cm Lacey Frey MD Work Phone: [facility] 05-12-2025 13:[phone] Body mass index (BMI) [Ratio] 24 kg/m2 Lacey Frey MD Work Phone: [facility] 05-12-2025 13:21-0400 Body weight 59.56 kg Lacey Frey MD Work Phone: [facility] 05-12-2025 13:21-0400 Heart rate 57 /min Lacey Frey MD Work Phone: [facility] 05-12-2025 13:21-0400 Respiratory rate 12 /min Lacey Frey MD Work Phone: [facility] 05-12-2025 13:21-0400 SaO2% (BldA) [Mass fraction] 97 % Lacey Frey MD Work Phone: [facility] 04-14-2025 11:[phone] Body height 157.48 cm Lacey Frey MD Work Phone: [facility] 04-14-2025 11:21-0400 Body mass index (BMI) [Ratio] 24.1 kg/m2 Lacey Frey MD Work Phone: [facility] 04-14-2025 11:21-0400 Body weight 59.87 kg Lacey Frey MD Work Phone: [facility] 04-14-2025 11:21-0400 Diastolic blood pressure 86 mm[Hg] Lacey Frey MD Work Phone: [facility] 04-14-2025 11:21-0400 Heart rate 57 /min Lacey Frey MD Work Phone: [facility] 04-14-2025 11:21-0400 SaO2% (BldA) [Mass fraction] 97 % Lacey Frey MD Work Phone: [facility] 04-14-2025 11:21-0400 Systolic blood pressure 200 mm[Hg] Lacey Frey MD Work Phone: [facility] [phone]:[phone] Body height 157.48 cm [facility] 02-04-2025 14:26-0400 Body mass index (BMI) [Ratio] 23.9 kg/m2 [facility] 02-04-2025 14:26-0400 Body weight 59.42 kg [facility] 02-04-2025 14:26-0400 Diastolic blood pressure 74 mm[Hg] [facility] 02-04-2025 14:26-0400 Heart rate 58 /min [facility] 02-04-2025 14:26-0400 Systolic blood pressure 177 mm[Hg] [facility] 12-26-2024 13:02-0400 Body height 157.48 cm [facility] 12-26-2024 13:02-0400 Body mass index (BMI) [Ratio] 24.7 kg/m2 [facility] 12-26-2024 13:02-0400 Body weight 61.46 kg [facility] 12-26-2024 13:02-0400 Diastolic blood pressure 74 mm[Hg] [facility] 12-26-2024 13:02-0400 Heart rate 69 /min [facility] 12-26-2024 13:02-0400 Systolic blood pressure 169 mm[Hg] [facility] 11-18-2024 13:05-0500 Body height 157.48 cm [facility] 11-18-2024 13:05-0500 Body mass index (BMI) [Ratio] 24 kg/m2 [facility] 11-18-2024 13:05-0500 Body weight 59.56 kg [facility] 11-18-2024 13:05-0500 Diastolic blood pressure 83 mm[Hg] [facility] 11-18-2024 13:05-0500 Heart rate 65 /min [facility] 11-18-2024 13:05-0500 Systolic blood pressure 176 mm[Hg] [facility] 07-09-2024 14:24-0400 Body height 157.48 cm [facility] 07-09-2024 14:24-0400 Body mass index (BMI) [Ratio] 24.3 kg/m2 [facility] 07-09-2024 14:24-0400 Body weight 60.46 kg [facility] 07-09-2024 14:24-0400 Diastolic blood pressure 98 mm[Hg] [facility] 07-09-2024 14:24-0400 Heart rate 57 /min [facility] 07-09-2024 14:24-0400 Systolic blood pressure 212 mm[Hg] [facility] 05-07-2024 13:44-0400 Body height 157.48 cm [facility] 05-07-2024 13:44-0400 Body mass index (BMI) [Ratio] 23.8 kg/m2 [facility] 05-07-2024 13:44-0400 Body weight 58.96 kg [facility] 05-07-2024 13:44-0400 Diastolic blood pressure 69 mm[Hg] [facility] 05-07-2024 13:44-0400 Heart rate 61 /min [facility] 05-07-2024 13:44-0400 Systolic blood pressure 189 mm[Hg] [facility] 01-08-2024 11:43-0400 Body height 157.48 cm [facility] 01-08-2024 11:43-0400 Body mass index (BMI) [Ratio] 22.8 kg/m2 [facility] 01-08-2024 11:43-0400 Body weight 56.84 kg [facility] 01-08-2024 11:43-0400 Diastolic blood pressure 72 mm[Hg] [facility] 01-08-2024 11:43-0400 Heart rate 61 /min [facility] 01-08-2024 11:43-0400 Systolic blood pressure 179 mm[Hg] [facility] 06-08-2023 14:30-0400 Body height 157.48 cm Lacey Frey Other [facility] Other 06-08-2023 14:30-0400 Body mass index (BMI) [Ratio] 23.13 kg/m2 Lacey Frey Other [facility] 06-08-2023 14:30-0400 Body weight 57.38 kg Lacey Frey Other [facility] Other 06-08-2023 14:30-0400 Diastolic blood pressure 77 mm[Hg] Lacey Tk Other [facility] Other 06-08-2023 14:30-0400 Respiratory rate 16 /min Lacey Tk Other [facility] Other 06-08-2023 14:30-0400 Systolic blood pressure 187 mm[Hg] Lacey Tk Other [facility] Other 12-20-2022 15:20-0400 Body height 157.48 cm Rox Arrowsight Other [facility] Other 12-20-2022 15:20-0400 Body mass index (BMI) [Ratio] 23.08 kg/m2 Rox Arrowsight Other [facility] Other 12-20-2022 15:20-0400 Body temperature 97 [degF] Rox Arrowsight Other [facility] Other 12-20-2022 15:20-0400 Body weight 57.24 kg Azaicha Ayasdis Other [facility] Other 12-20-2022 15:20-0400 Diastolic blood pressure 85 mm[Hg] Aziz Ayasdis Other [facility] Other 12-20-2022 15:20-0400 Respiratory rate 16 /min Azaicha Ayasdis Other [facility] Other 12-20-2022 15:20-0400 SaO2% (BldA) [Mass fraction] 100 % Aziz Ayasdis Other [facility] Other 12-20-2022 15:20-0400 Systolic blood pressure 170 mm[Hg] Rox Watson Other [facility] Other 02-24-2022 10:12-0400 Diastolic blood pressure 80 mm[Hg] [facility] 02-24-2022 10:12-0400 Heart rate 68 /min [facility] 02-24-2022 10:12-0400 Respiratory rate 15 /min [facility] 02-24-2022 10:12-0400 SaO2% (BldA) [Mass fraction] 98 % [facility] 02-24-2022 10:12-0400 Systolic blood pressure 190 mm[Hg] [facility] 02-24-2022 09:24-0400 Diastolic blood pressure 88 mm[Hg] [facility] 02-24-2022 09:24-0400 Heart rate 66 /min [facility] 02-24-2022 09:24-0400 Respiratory rate 16 /min [facility] 02-24-2022 09:24-0400 SaO2% (BldA) [Mass fraction] 99 % [facility] 02-24-2022 09:24-0400 Systolic blood pressure 190 mm[Hg] [facility] 02-24-2022 08:50-0400 Diastolic blood pressure 100 mm[Hg] [facility] 02-24-2022 08:50-0400 Systolic blood pressure 220 mm[Hg] [facility] 02-24-2022 08:14-0400 Body temperature 98.24 [degF] [facility] 02-24-2022 08:14-0400 Heart rate 74 /min [facility] 02-24-2022 08:14-0400 Respiratory rate 18 /min [facility] 02-24-2022 08:14-0400 SaO2% (BldA) [Mass fraction] 99 % [facility] Encounters Encounter Date Encounter Type Care Provider Facility Start: 05-12-2025 End: 05-12-2025 ambulatory Lacey Frey MD [facility] Phone[facility] Work Phone: Start: 05-12-2025 End: 05-12-2025 Patient encounter procedure Lacey Frey MD -[facility] Work Phone: Start: 04-14-2025 End: 04-14-2025 ambulatory Lacey Frey MD Work Phone: [facility] Work Phone: Start: 04-14-2025 End: 04-14-2025 Patient encounter procedure Lacey Frey MD -[facility] Work Phone: Start: 04-07-2025 Non-patient / Non-visit Valencia Wilkinson CMA -[facility] Work Phone: Start: 04-06-2025 Non-patient / Non-visit Daphne LACY [facility] Work Phone: Start: 02-12-2025 End: 02-12-2025 ambulatory [facility] Start: 02-04-2025 End: 02-04-2025 ambulatory [facility] Work Phone: Start: 02-04-2025 End: 02-04-2025 Patient encounter procedure [facility] Work Phone: Start: 02-03-2025 End: 02-04-2025 Pre-admission assessment Melba Gregorio [facility] Start: 12-26-2024 End: 12-26-2024 ambulatory [facility] Work Phone: Start: 12-26-2024 End: 12-26-2024 Patient encounter procedure [facility] Work Phone: Start: 12-24-2024 Non-patient / Non-visit [facility] Work Phone: Start: 12-23-2024 Non-patient / Non-visit [facility] Work Phone: Start: 11-28-2024 End: 11-28-2024 ambulatory [facility] Start: 11-18-2024 End: 11-18-2024 ambulatory [facility] Work Phone: Start: 11-18-2024 End: 11-18-2024 Patient encounter procedure [facility] Work Phone: Start: 07-09-2024 End: 07-09-2024 ambulatory [facility] Work Phone: Start: 07-09-2024 End: 07-09-2024 Patient encounter procedure [facility] Work Phone: Start: 06-28-2024 End: 06-28-2024 ambulatory [facility] Start: 05-15-2024 Non-patient / Non-visit [facility] Work Phone: Start: 05-11-2024 Non-patient / Non-visit [facility] Work Phone: Start: 05-10-2024 Non-patient / Non-visit [facility] Work Phone: Start: 05-07-2024 End: 05-07-2024 ambulatory [facility] Work Phone: Start: 05-07-2024 End: 05-07-2024 Patient encounter procedure [facility] Work Phone: Start: 05-01-2024 End: 05-01-2024 ambulatory AALIYAH [facility] Start: 04-25-2024 Non-patient / Non-visit [facility] Work Phone: Start: 03-28-2024 End: 03-28-2024 ambulatory AALIYAH VIRGILIO [facility] Start: 01-08-2024 End: 01-08-2024 ambulatory [facility] Work Phone: Start: 01-08-2024 End: 01-08-2024 Patient encounter procedure [facility] Work Phone: Start: 12-28-2023 Non-patient / Non-visit [facility] Work Phone: Start: 06-08-2023 End: 06-08-2023 ambulatory Lacey Frey Other [facility] Other Start: 06-08-2023 Office outpatient visit 15 minutes Lacey Frey [facility] Start: 05-25-2023 End: 05-25-2023 ambulatory Lacey Frey Other [facility] Other Start: 05-25-2023 Telephone encounter Lacey Tk [facility] Start: 04-25-2023 End: 04-25-2023 ambulatory Lacey Frey Other [facility] Start: 04-25-2023 Telephone encounter Lacey Tk [facility] Start: 03-23-2023 End: 03-23-2023 ambulatory Lacey Tk Other [facility] Other Start: 03-23-2023 Telephone encounter Lacey Tk [facility] Start: 02-20-2023 End: 02-20-2023 ambulatory Lacey Frey Other [facility] Other Start: 02-20-2023 Telephone encounter Lacey Tk [facility] Start: 01-17-2023 End: 01-17-2023 ambulatory Lacey Frey Other [facility] Start: 01-17-2023 Telephone encounter Lacey Frey [facility] Start: 12-20-2022 End: 12-20-2022 ambulatory Rox Waston Other [facility] Other Start: 12-20-2022 [facility] visit new patient Rox Watson [facility] Start: 12-19-2022 End: 12-19-2022 ambulatory Lacey Frey Other [facility] Start: 12-19-2022 Telephone encounter Lacey Tk [facility] Start: 12-10-2022 End: 12-11-2022 ambulatory AALIYAH [...] Facility:[facility] Start: 09-03-2022 End: 09-04-2022 ambulatory RADHA HARRINGOTN Facility:[facility] Start: 09-03-2022 End: 09-03-[address] [...] Emergency department patient visit Demond Collins ailyn [facility] Plan of Treatment Date Care Activity Detail Author Start: 12-26-2024 Patient referral [facility] Work Phone: Patient referral [facility] Work Phone: US.doppler Carotid a rteries - bilateral [facility] Payers Date Payer Category Payer Unknown [id number] 1959 Self-pay 1959 Unknown [id number] 1935 Unknown [id number] 2.16.84 [id number] 1935 Unknown [id number] 2.16.84 0.1.581141.3.579.2.593 1935 Unknown [id number] 2.16.84 0.1.669980.3.579.2.593 1935 Unknown [id number] 2.16.84 0.1.610274.3.579.2.593 1935 Unknown [id number] 2.16.84 0.1.594525.3.579.2.593 1935 Unknown [id number] 2.16.84 0.1.412540.3.579.2.593 1935 Unknown [id number] 2.16.84 0.1.694440.3.579.2.593 1935 Unknown [id number] 2.16.84 0.1.921842.3.579.2.593 1935 Unknown [id number] 2.16.84 0.1.650579.3.579.2.593 1935 Unknown [id number] 2.16.84 0.1.534734.3.579.2.593 1935 Unknown [id number] 2.16.84 0.1.988018.3.579.2.593 1935 Unknown [id number] 2.16.84 0.1.216608.3.579.2.593 1935 Unknown [id number] 2.16.84 0.1.178083.3.579.2.593 1935 Unknown [id number] 2.16.84 0.1.079070.3.579.2.593 1935 Unknown [id number] 2.16.84 0.1.546273.3.579.2.593 1935 Unknown [id number] 2.16.84 0.1.443922.3.579.2.593 1935 Unknown [id number] 2.16.84 0.1.776932.3.579.2.593 1935 Unknown [id number] 2.16.84 0.1.945397.3.579.2.593 1935 Unknown [id number] 2.16.84 0.1.379871.3.579.2.593 Medicare [id number] 2. [id number] Unknown [id number] Social History Date Type Detail Facility Tobacco smoking status Unknown i f ever smoked [facility] Sex Assigned At Female [facility] Start: 1935 Sex Assigned At Female [place] Tobacco smoking stat [facility] Unknown if ever smoked [facility] Work Phone: Start: 02-24-2022 End: 11-18-2024 Sex Female (finding) [facility] Tobacco smoking status Higinio resendiz [facility] Start: 05-12-2025 Tobacco smoking stat [facility] Smokes tobacco daily (finding) [facility] Clinical Notes 02-24-2022 to 04-14-2025 Note Date & Type Note Facility 04-14-2025 Evaluation note Diagnosis Onset Date Resolution Resistant hypertension acute Ju ly 2024 11:18am [facility] Work Phone: 1(383) 876-587305-07-2025 NoteUT Cardiology - [facility] Subjective Delesintia Barrios is a 89 [...] presented to the emergency room at the [facility] with elevated blood pressure reading. Blood [...] Take 1 ta (more content not included)... [facility]05-07-2025 NotePatient here for a 3 month [...] or heart burn. Review of Systems Constitutional: Negative.[facility]04-29-2025 Evaluation note* Diagnosis Onset Date Resolution Status Admit Date Objective pulsatile tinnitus of both ears acute February 04, 2025 2:23pm Resistant hypertension acute Ap ril 2024 2:23pm [facility] Work Phone: 1(396) 453-512102-20-2025 NoteUT Cardiology - [facility] Subjective Zoraida Barrios is a [...] presented to the emergency room at the [facility] with elevated blood pressure reading. Blood [...] normal, troponin high-sensitivity 8.8, (more content not included)...[facility]02-10-2025 Evaluation note* Diagnosis Onset Date Resolution Status Admit Date Resistant hypertension acute [facility] 2024 1:01pm Objective pulsatile tinnitus of both ears acute December 26, 2024 12:58pm Resistant hypertension acute [facility] 2024 12:58pm [facility] Work Phone: 1(995) 441-872602-10-2025 Evaluation note* Diagnosis Onset Date Resolution Status Admit Date Resistant hypertension acute [facility] 2024 1:01pm Chronic kidney disease, stag e 3b acute December 26, 2024 12:58pm Objective pulsatile tinnitus of both ears acute December 26, 2024 12:58pm Resistant hypertension acute [facility] 2024 12:58pm [facility] Work Phone: 1(656) 697-570809-20-2024 NotePer assessment heart rates in the 50s No concerning symptoms at this time We will continue to monitor Discussed with patient to call office for any lightheadedness, dizziness, passing out she voiced [facility]Un[facility] 06-28-2024 NoteHypertension is stable for her blood pressure log is very well- controlled in office is always elevated most likely related to whitecoat syndrome Continue medicines as prescribed including carvedilol, clonidine, hydralazine, losartan, spironolactone Renal function stableUnNorwalk [facility] Hospital09-20-2024 Notestable [facility]09-20-2024 NoteUTP CARDIOLOGY PROGRESS NOTE HPI: Zoraida [...] passing out she voiced understanding RTC 6 monthsUnNorwalk [facility] Hospital09-20-2024 NotePt is here for three month follow up. Pt denies sob, chest pain, palpatations. Pt says one of her medications makes her dizzy but she does not know which one. Review of Systems Constitutional: Positive for diaphoresis (1 episode). Neurological: Positive for excessive daytime sleepiness (intermittent). All other systems reviewed and are negative.[facility] 05-01-2024 NoteHypertension is quite variable dependent [...] Vit D, Thyroid function and Vitamin B levels.[facility]07-24-2024 NoteCurrently stable [facility]07-24-2024 NotePt reports having noted heart rate 49-50's, and denied any significant symptoms associated. Will continue to monitor and D/W pt to call office for lightheadedness, dizziness, near syncope or syncope and she voiced understandingUnNorwalk Memorial Hospital07-24-2024 NoteUTP CARDIOLOGY PROGRESS NOTE HPI: Zoraida Barrios is a 88 y.o. female here for hospital F/U HPI 88 yo female presents today for hospital F/U after recent evaluation for bradycardia Patient here for follow up [facility] ED. Says she went shopping with [...] negative ED note- Patient: ZORAIDA BARRIOS MR#: [id number] : 1935 Acct:[id number] Age/Sex: 88 / F ADM Date: 04/25/24 [...] place, and time. P (more content not included)...[facility]07-24-2024 NotePatient here for follow up [facility] ED. Says she went shopping with [...] (intermittent). All other systems reviewed and are negative.[facility] 03-28-2024 NoteStable Continue aldactone, fluid restriction and low sodium diet Continue regular exercise and activityUnNorwalk [facility] Hospital 03-28-2024 NoteWell controlled with aldactone currently no edemaUnNorwalk Memorial Hospital06-20-2024 NoteHypertension is unchanged. Dietary sodium restriction. Continue current medications. Blood pressure will be reassessed in 3 months.[facility]06-20-2024 NotePatient here for 2 mo follow up hypertension and diastolic dysfunction. She had routine labs in January 2024. She denies chest pain, SOB, palpitations, and syncope. Sometimes gets lightheaded upon standing up. Review of Systems Neurological: Positive for excessive daytime sleepiness and light-headedness. All other systems reviewed and are negative.[facility] 03-28-2024 NoteUTP CARDIOLOGY PROGRESS NOTE HPI: [...] - with her evening/bedtime meds, she voiced understandingGlenbeigh Hospital08-31-2023 Evaluation note* Encounter Date Diagnosis Assessment Notes Treatment Notes Treatment Clinical Notes May, Other insomnia (ICD-10 - G47.09) Pt states the ativan does help her insomnia and bp. Denies over-sedation symptoms. 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 Recommend taking meds daily and keeping record and discussing bps w her provider there. [facility] 03-14-2023 Evaluation note* Encounter Date Diagnosis [...] pressure monitor reveals significantly better blood pressure [facility] Other [id number] Evaluation + Plan noteExtracted from: Title:ED Note [...] Troponin 9 Hr. XR Chest Single View [facility]05-19-2022 Hospital Discharge instructions Patient Education [...] care provider. This is important. Medicines Take yhik-hyh-altwkxs and prescription medicines only as told by [...] 09/25/2006 Document Revised: 06/05/2019 Document Reviewed: 06/05/2019 [employer] Patient [employer]. Follow Up Care 02/24/2022 08:13:52 With:LACEY FREY Address: [address] [place] [phone]- Business (1) When:02/27/2022 10:23:00 Comments:Increase Losartan to 100 mg a day. Continue Metoprolol 50 mg a day. Make sure to take your blood pressure twice a day and follow-up with Dr. Frey tomorrow at 1 PM at her office. Return to the emergency room if your headache recurs, chest pain, dizziness or any new symptoms. [facility] noteNo InformationNortOSS Health [place] Other Evaluation noteNo assessment information available [facility] Work Phone: Evaluation note* Diagnosis Onset Date Resolution Status Chronic kidney disease, stage 3b acute Resistant hypertension acute Weight gain, abnormal acute [facility] Work Phone: History general Narrative - Reported* Type Description Date Medical History HYPERTENSION Medical History RENAL IMPAIRMENT Medical History TOBACCO DEPENDENCE SYNDROME Surgical History TUBAL LIGATION Surgical History CHOLECYSTECTOMY Hospitalization History SEE ABOVE [facility] [place] Other Hospital course Narrative No data available for this section [facility] Discharge instructionsAmbulatory Orders* Referral to Vascular Surgery Time Frame: 12/26/24, Location: None Selected [facility] Work Phone: Hospital Discharge instructions No data available for this section [facility] Progress note No data available for this section [facility] Reason for referral (narrative)No reason for referral information availableCity Hospital Work Phone: Summary Purpose Family History Relationship [...] content) DATE CREATED AUTHOR 03/05/2022 Jorje Ha [facility] DATE CREATED AUTHOR AUTHOR'S ORGANIZ ATION 12/13/2022 [facility] DATE CREATED AUTHOR AUTHOR'S ORGANIZ ATION 02/15/2025 [facility] REASON FOR VISIT (unrecogniz ed section [...] BE BASED ON THE PRIMARY CLINICAL RECORDS. [facility] [employer] provides no warranty or guarantee of the accuracy or completeness of information in this document.
--- NOTE | 2025-07-13 08:39 | ECG_ITS ---
[facility] Test Date: 2025-07-13 Pat Name: ZORAIDA GAYTAN Department: Room: - Gender: Female Spinal Surgeon: : 1935 Requested By: [id number] Order Number: [id number] Reading MD: EDVIN GRUBBS M.D. Measurements Intervals [place] Rate: 55 P: 63 DE: 192 QRS: 46 QRSD: 90 T: 28 QT: 442 QTc: 430 Interpretive Statements 1100 Sinus rhythm 4068 Nonspecific Twave abnormality Borderline ECG Compared to ECG 07/10/2025 12:47:46 Sinus arrhythmia no longer present Electronically Signed On 07-13-2025 13:30:14 EDT by EDVIN GRUBBS M.D.
--- NOTE | 2025-07-13 08:51 | ED.GENADUL1 ---
HPI HPI - General Adult General Chief complaint: Recheck/Abnormal Lab/Rx Stated complaint: OTHER Time Seen by Provider: 07/13/25 08:38 Source: patient Mode of arrival: ambulance Limitations: no limitations History of Present Illness HPI narrative: The patient is a 89 years old female who was just diagnosed with pneumonia almost 6 days ago and she almost finished taking her antibiotic. The patient denies any cough that is new she has been getting better regarding the cough and the pneumonia symptoms. But she woke up this morning feeling that she have a pressure in her head and she found that her blood pressure was elevated around 200 systolic and she called the EMS. The patient denies any headache or chest pain at any time. The patient denies any nausea vomiting or any diarrhea, her appetite has been the same no changes Related Data Home Medications ?Medication ?Instructions ?Recorded ?Confirmed carvedilol 25 mg tablet 25 mg PO BID 12/28/23 07/13/25 lorazepam 0.5 mg tablet 0.5 mg PO Q12H PRN anxiety 12/28/23 07/13/25 losartan 100 mg tablet 100 mg PO DAILY 12/28/23 07/13/25 hydralazine 100 mg tablet 100 mg PO Q8H 07/07/25 07/13/25 losartan 50 mg tablet 50 mg 07/07/25 Previous Rx's ?Medication ?Instructions ?Recorded clonidine HCl 0.2 mg tablet 0.2 mg PO BID #10 tabs 12/24/24 amoxicillin 875 mg-potassium 1 tab PO Q12H 7 days #14 tabs 07/07/25 clavulanate 125 mg tablet doxycycline hyclate 100 mg capsule 100 mg PO BID 7 days #14 caps 07/07/25 Allergies Allergy/AdvReac Type Severity Reaction Status Date / Time Sulfa (Sulfonamide AdvReac Mild rash Verified 07/13/25 08:30 Antibiotics) Review of Systems ROS Status of ROS 10 or more systems reviewed and unremarkable except as noted in history and below PFSH PFS Social History Little interest or pleasure in doing things: not at all Feeling down, depressed, or hopeless: not at all Exam Narrative Exam Narrative: Nurses notes and vital signs reviewed and patient is not hypoxic. General: Well-appearing and in no apparent distress. Skin: Warm, dry, no pallor noted. No rash. Head: Normocephalic, atraumatic. Neck: Supple, non-tender. Cardiovascular: Regular Rate and Rhythm without murmur, gallop or rub. Respiratory: No accessory muscle use or respiratory distress. Lungs are clear to auscultation, no wheezing, rales or rhonchi Musculoskeletal: normal ROM, no calf or popliteal tenderness, no lower extremity edema/swelling GI: Abdomen is soft, non-distended. Normal bowel sounds. No masses appreciated. No tenderness to palpation. No rebound, guarding, or rigidity noted. Neurological: A&O x4. No cranial nerve dysfunction observed. No truncal ataxia. Moves all extremities. Sensation intact. Psychiatric: Cooperative and interactive. Normal mood and affect. Constitutional Vital Signs, click to edit/add: Last Vital Signs Temp 97.6 F 07/13/25 08:19 Pulse 55 L 07/13/25 10:08 Resp 16 07/13/25 10:08 BP 110/55 07/13/25 10:08 Pulse Ox 95 07/13/25 10:08 O2 Del Method Room Air 07/13/25 10:08 Course Vital Signs Vital signs: Vital Signs Temperature 97.6 F 07/13/25 08:19 Pulse Rate 60 07/13/25 08:19 Respiratory Rate 16 07/13/25 08:19 Blood Pressure 192/78 H 07/13/25 08:19 Pulse Oximetry 95 07/13/25 08:19 Oxygen Delivery Method Room Air 07/13/25 08:19 Temperature 97.6 F 07/13/25 08:19 Pulse Rate 55 L 07/13/25 10:08 Respiratory Rate 16 07/13/25 10:08 Blood Pressure 110/55 07/13/25 10:08 Pulse Oximetry 95 07/13/25 10:08 Oxygen Delivery Method Room Air 07/13/25 10:08 Medical Decision Making MDM Narrative Medical decision making narrative: The patient EKG showing sinus rhythm with a heart rate of [address] elevation or depression compared to old EKGs Patient CBC and chemistry were within normal and the right now she was discharged after her blood pressure was going down without even taking her medication After providing her with her medication her blood pressure was 110/55 The patient is to follow up with primary care physician in next 2-3 days or to return to the emergency department should any of the signs or symptoms worsen or new symptoms develop. The patient agrees with the following Diagnosis and Treatment plan and the patient will be discharged home. Lab Data Labs: Lab Results 07/13/25 Range/Units 08:50 WBC 5.8 (4.0-11.0) 10^3/uL RBC 4.54 (4.20-5.40) 10^6/uL Hgb 13.5 (12.0-16.0) g/dL Hct 41.0 (36.0-48.0) % MCV 90.3 (81.0-99.0) fL MCH 29.7 (26.7-34.0) pg MCHC 32.9 (29.9-35.2) g/dL RDW 14.7 (11.0-15.0) % Plt Count 126 L (150-450) 10^3/uL MPV 11.0 (9.5-13.5) fL Neut % (Auto) 42.7 L (43.0-75.0) % Lymph % (Auto) 36.6 (20.5-60.0) % [place] % (Auto) 9.9 (1.7-12.0) % Eos % (Auto) 6.7 (0.9-7.0) % Baso % (Auto) 3.8 H (0.2-2.0) % Neut # (Auto) 2.5 (1.4-6.5) 10^3/uL Lymph # (Auto) 2.1 (1.2-3.8) 10^3/uL [place] # (Auto) 0.6 (0.3-0.8) 10^3/uL Eos # (Auto) 0.4 (0.0-0.7) 10^3/uL Baso # (Auto) 0.2 H (0.0-0.1) 10^3/uL Abs Immat Gran (auto) 0.02 (0.00-0.03) 10^3/uL Imm/Tot Granulo (auto) 0.3 (0.0-0.5) % Sodium 142 (136-145) mmol/L Potassium 3.9 (3.5-5.1) mmol/L Chloride 106 (98-107) mmol/L Carbon Dioxide 27.0 (21.0-32.0) mmol/L Anion Gap 12.9 BUN 20.0 H (7.0-18.0) mg/dL Creatinine 0.97 (0.55-1.02) mg/dL Est GFR ( Amer) >60 (>=60 mL/min/1.73m^2) Est GFR (Non-Af Amer) 54 L (>=60 mL/min/1.73m^2) BUN/Creatinine Ratio 20.6 Glucose 119 H (74-106) mg/dL Calcium 9.6 (8.5-10.1) mg/dL Total Bilirubin 0.6 (0.2-1.0) mg/dL AST 14 L (15-37) U/L ALT 11 L (14-59) U/L Alkaline Phosphatase 50 (46-116) U/L Troponin I High Sens 8.5 (4.0-51.3) pg/mL Total Protein 6.3 L (6.4-8.2) g/dL Albumin 3.3 L (3.4-5.0) g/dL Globulin 3.0 g/dL Albumin/Globulin Ratio 1.1 Discharge Plan Discharge Chief Complaint: Recheck/Abnormal Lab/Rx Clinical Impression: Hypertension Patient Disposition: Home, Self-Care Time of Disposition Decision: 10:16 Condition: Good Prescriptions / Home Meds: No Action clonidine HCl 0.2 mg tablet 0.2 mg PO BID Qty: 10 0RF losartan 50 mg tablet 50 mg hydralazine 100 mg tablet 100 mg PO Q8H doxycycline hyclate 100 mg capsule 100 mg PO BID 7 Days Qty: 14 0RF amoxicillin-pot clavulanate 875-125 mg tablet 1 tab PO Q12H 7 Days Qty: 14 0RF carvedilol 25 mg tablet 25 mg PO BID lorazepam 0.5 mg tablet 0.5 mg PO Q12H PRN (Reason: anxiety) losartan 100 mg tablet 100 mg PO DAILY Print Language: Welsh Instructions: Hypertension (ED) Referrals: Amelia Trinh MD [Primary Care Provider, Family Practice] - 1 week Discharge Date/Time: 07/13/25 10:38
[2025-07-13 09:02] LABS: Hematocrit 41.0 % (36.0-48.0); Hemoglobin 13.5 g/dL (12.0-16.0); Immature Granulocytes Abs Auto 0.02 10^3/uL (0.00-0.03); Immature Granulocytes Pct Auto 0.3 % (0.0-0.5); Lymphocytes Absolute Auto 2.1 10^3/uL (1.2-3.8); Mean Corpuscular HGB Conc 32.9 g/dL (29.9-35.2); Mean Corpuscular Hemoglobin 29.7 pg (26.7-34.0); Mean Corpuscular Volume 90.3 fL (81.0-99.0); Platelet Count 126 10^3/uL (150-450); Red Blood Count 4.54 10^6/uL (4.20-5.40); White Blood Count 5.8 10^3/uL (4.0-11.0)
[2025-07-13 09:18] LABS: Alanine Aminotransferase 11 U/L (14-59); Albumin Globulin Ratio 1.1; Albumin Level 3.3 g/dL (3.4-5.0); Alkaline Phosphatase 50 U/L (46-116); Anion Gap 12.9; Aspartate Amino Transferase 14 U/L (15-37); Blood Urea Nitrogen 20.0 mg/dL (7.0-18.0); Calcium 9.6 mg/dL (8.5-10.1); Carbon Dioxide 27.0 mmol/L (21.0-32.0); Chloride 106 mmol/L (98-107); Estimated GFR (African America >60 (>=60 mL/min/1.73m^2); Estimated GFR (Non-African Ame 54 (>=60 mL/min/1.73m^2); Globulin 3.0 g/dL; Glucose 119 mg/dL (74-106); Potassium 3.9 mmol/L (3.5-5.1); Sodium 142 mmol/L (136-145); Total Protein 6.3 g/dL (6.4-8.2)
[2025-07-13] MEDS: CARVEDILOL 25 MG TABLET PO (09:29)
[2025-07-13] MEDS: LOSARTAN POTASSIUM 50 MG TABLET 100 MG PO (09:29)
[2025-07-13] MEDS: HYDRALAZINE HCL 50 MG TABLET 100 MG PO (09:30)
[2025-07-13] MEDS: CLONIDINE HCL 0.2 MG TABLET PO (09:30)
[2025-07-13 09:37] VITALS: BP 176/82; PULSE 58; O2SAT 96
[2025-07-13 10:08] VITALS: BP 110/55; PULSE 55; O2SAT 95
== END 2025-07-13 10:38 | disposition home or self-care (01) ==
PROVIDERS: Emergency Provider Emergency Medicine; PCP Family Medicine
DX: I10 Essential (primary) hypertension (principal); Z87.01 Personal history of pneumonia (recurrent)
CPT/HCPCS: 36415; 80053; 84484; 85025; 93005; 99284

== ENCOUNTER 2025-07-13 18:34 | Emergency (ER) | payer MEDICARE, SELFPAY ==
--- OUTSIDE RECORDS SUMMARY | 2025-07-13 18:39 | XMS_ITS | Patient Health Record ---
Author Organization The [facility] in [place] Address [address] [place] [address] Care Team Providers Care Tallow Maker Name Role Phone None, Unknown or Primary Care Provider Unavailab le Allergies Allergen (clinical drug ingredient) Drug/Non Drug Allergy documented on EMR Reaction Allergy Type Onset Date Status Substance with sulfonamide structure and antibacterial mechanism of action (substance) Sulfa Antibiotics Unknown Drug Allergy Active Reason For Referral No Information Medications Medication SIG (Take, Route, Frequency, Duration) Notes Start Date End Date Status Spironolactone 25 MG 1 tablet Orally 01/25/2024 Active cloNIDine 0.2 MG/24HR 1 patch to skin Transdermal 01/25/2024 Active Losartan Potassium 50 MG 1 tablet Orally Once a day 01/25/2024 Active Carvedilol 25 MG 1 tablet with food O rally Twice a day 01/25/2024 Active hydrALAZINE HCl 25 MG 1 tablet with food Orally 2 x daily Active hydrALAZINE HCl 50 MG 1 tablet with food Orally 2 x daily 01/25/2024 Active Social History Tobacco Use: Social History Observation Description Date Details (start date - stop date) Current Smoker NA - NA Tobacco Control (Standard) Question Answer Notes Tobacco use: Current every day smoker Problems Problem Type SNOMED Code ICD Code Onset Dates Problem Status W/U Status Risk Notes Problem Hypertension (32938956) HTN (hypertens ion) (I10) Active confirmed Plan Of Treatment No Information Insurance Providers Payer Name Payer Address Payer Phone Subscriber Number Group Number Insured Name Patient Relationship to Insured Coverage Start Date Coverage End Date [employer] ADV PLAN [address] [place] [address] [id number] April Barrios Self - patient is the insured Medical (General) History Medical History History ICD Code hypertension Surgical History Surgery Date(Month/Year) cholecystectomy
--- OUTSIDE RECORDS SUMMARY | 2025-07-13 18:39 | XMS_ITS | Encounter Summary ---
Author Organization [facility] Address [address] [place] [address] Care Team Providers Care Therapy Coordinator Name Role Phone Amelia Trinh MD Primary Care Provider [phone] Reason for Visit * Reason Comments Med Refill Encounter Details Date Type Department Care Team (Late st Contact Info) Description 11/27/2023 Refill [facility] [address] [place] [address] Hermelinda Hugo MD [address] [place] [address] [address] [place] [address] Benign hypertensive heart disease without congestive heart failure Social History Tobacco Use Types Packs/Day Years Used Date Smoking Tobacco: Every Day Cigarettes Smokeless Tobacco: Never Alcohol Use Standard Drinks/Week Comments Yes 0 (1 standard drink = 0.6 oz pur e alcohol) occasional [place] Safety & Environment Answer Date Rec orded Fear of Current or Ex-Partner Not on file Emotionally Abused Not on file 11/30/2023 Physically Abused Not on file 11/30/2023 Sexually Abused Not on file 11/30/2023 Physically or Sexually Abused Not on file Comments Unknown Sex and Gender Information Value Date Recorded Sex Assigned at Female 02/10/2025 11:41 AM EDT Legal Sex Female 10:58 PM EDT Gender Identity Female 02/10/2025 11:41 AM EDT Sexual Orientation Heterosexual or Straight 02/2025 11:41 AM EDT documented as of this encounter Plan of Treatment Not on file documented as of this encounter Visit Diagnoses Diagnosis Benign hypertensive heart disease without congestive heart failure Benign hypertensive heart disease without heart failure documented in this encounter Care Teams Therapy Coordinator Relationship Specialty Start Date End Date Amelia Trinh MD [address] [facility] #A PCP - General 06/22/22 documented as of this encounter
--- OUTSIDE RECORDS SUMMARY | 2025-07-13 18:40 | XMS_ITS | CCD ---
Author Organization [facility] Care Team Providers Care Die Repairer Trimmer Dies Name Role Phone LACYE FREY Primary Care Physician SAURABH Puentes, DR [...] Care Unavailable YOAV ., ASTRID Admitting Unavailable YOVA ., ASTRID Attending Unavailable YOAV ., ASTRID [...] TK, DR LACEY Ashton Primary Care Unavailable [place], DR BERTHA Logan Consulting Unavailable ALGHOTHANI, MOHAMAD Consulting Unavailable Lacey Frey Unavailable Rox Watson Unavailable MISSY BAUER Attending Unavailable VIRGILIO, AALIYAH Attending Unavailable VIRGILIO, AALIYAH Attending Unavailable VIRGILIO, AALIYAH Attending Unavailable EDVIN GRUBBS Attending Unavailable Lacey Frey MD Primary Care Provider Lacey Frey MD Attending Provider Daphne Emanuel PA-C Attending Provider Unavailable Valencia Wilkinson CMA Attending Provider UnavailLacey Rodriguez MD Primary Care Provider Lacey Frey MD Attending Provider Allergies Allergy Classification Reported Allergen(s) Allergy Type Date of Onset Reaction(s) Facility (2 sources) Sulfonamides (Antibiotic); Translations: [sulfa drugs] Drug allergy Unknown [facility] (2 sources) Sulfonamides (Antibiotic) Drug allergy (disorder) 4 [facility] (10 sources) Substance with sulfonamide structure and antibacterial mechanism of action (substance) Drug allergy Unknown [facility] Other (1 source) Spironolactone; Translations: [SPIRONOLACTONE] Drug Allergy 5 [facility] Repository (1 source) Sulfonamides (Antibiotic); Translations: [SULFA (SULFONAMIDE ANTIBIOTICS)] Propensity to adverse reactions to drug (disorder) 2 [facility] Repository Medications Current Medications Medication Drug Class(es) [...] 08-30-2022 Episodic Other aftercare (1 source) Other joint terminal attack controller (current) drug therapy; Translations: [OTH 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 Basophils/100 WBC Auto (Bld) Ordered By: Daphne Emanuel on 04-06-2025 Basophils/100 WBC (Bld) 4.2 % High 0.2-2.0 [facility] Eosinophils/100 WBC Auto (Bl d)Ordered By: Daphne Emanuel on 04-06-2025 Eosinophils/100 WBC (Bld) 9.2 % High 0.9-7.0 [facility] Erythrocyte distribution wid th Auto (RBC) [Ratio]Ordered By: Daphne Emanuel on 04-06-2025 Erythrocyte distribution width (RBC) [Ratio] 14.7 % 11.0-15.0 [facility] Estimated glomerular filtrat ion rate (GFR) non- AmericanOrdered By: Daphne Emanuel on 04-06-2025 GFR/1.73 sq M.predicted among non-blacks MDRD (S/P/Bld) [Vol rate/Area] 54 mL/min/{1.73_m2} Low >=60 mL/min/1.[address] [facility] Globulin Calc (S) [Mass/Vol] Ordered By: Daphne Emanuel on 04-06-2025 Globulin (S) [Mass/Vol] 3.1 g/dL F [facility] Hematocrit Auto (Bld) [Volum e fraction]Ordered By: Daphne Emanuel on 04-06-2025 Hematocrit (Bld) [Volume fraction] 45.0 % 36.0-48.0 [facility] Hemoglobin [Mass/volume] in BloodOrdered By: Daphne Emanuel on 04-06-2025 Hemoglobin (Bld) [Mass/Vol] 14.7 g/dL 12.0-16.0 [facility] INR in Platelet poor plasma by Coagulation assayOrdered By: Daphne Emanuel on 04-06-2025 INR Coag (PPP) [Relative time] 1.32 {INR} [facility] Comment on above: DESIRED INR:2.0-3.0 CONDITIONS NOT LISTED BELOW2.5-3.5 FOR PROSTHETIC HEART VALVE REPLACEMENT2.5-3.5 RECURRENT THROMBOSIS Laboratory - Chemistry and C hemistry - challengeOrdered By: Daphne Emanuel on 04-06-2025 Bilirubin Ql (U) Negative NEGATIVE [facility] Glucose (U) [Mass/Vol] Negative NEGATIVE Fi [facility] Ketones Ql (U) Negative NEGATIVE [facility] pH (U) 7.0 [pH] 5.0-9.0 [facility] Specific gravity (U) [Rel density] 1.010 1.005-1.025 [facility] Urobilinogen Qn (U) 0.2 {Myranda'U}/dL 0.2-1.0 [facility] Albumin [Mass/Vol] 3.7 g/dL 3.4-5.0 [facility] ALP [Catalytic activity/Vol] 64 U/L 46-116 [facility] ALT [Catalytic activity/Vol] 16 U/L 14-59 [facility] AST [Catalytic activity/Vol] 14 U/L Low 15-37 [facility] Bilirubin [Mass/Vol] 0.4 mg/dL 0.2-1.0 [facility] Calcium [Mass/Vol] 9.9 mg/dL 8.5-10.1 [facility] Chloride [Moles/Vol] 106 mmol/L 98-107 [facility] CO2 [Moles/Vol] 26.9 mmol/L 21.0-32.0 [facility] Creatinine [Mass/Vol] 0.97 mg/dL 0.55-1.02 [facility] GFR/1.73 sq M.predicted MDRD (S/P/Bld) [Vol rate/Area] mL/min/{1.73_m2} >=60 mL/min/1.[address] [facility] Glucose [Mass/Vol] 102 mg/dL 74-106 [facility] Natriuretic peptide B (Bld) [Mass/Vol] 213.0 pg/mL <=1800.0 [facility] Potassium [Moles/Vol] 3.8 mmol/L 3.5-5.1 [facility] Protein [Mass/Vol] 6.8 g/dL 6.4-8.2 [facility] Sodium [Moles/Vol] 144 mmol/L 136-145 [facility] Urea nitrogen [Mass/Vol] 19.0 mg/dL High 7.0-18.0 [facility] Urea nitrogen/Creatinine [Mass ratio] 19.6 mg/mg [facility] Laboratory - Hematology and Cell countsOrdered By: Daphne Emanuel on 04-06-2025 Immature granulocytes/100 WBC (Bld) 0.5 % 0.0-0.5 [facility] Laboratory - Specimen inform ationOrdered By: Daphne Emanuel on 04-06-2025 Appearance (U) CLEAR CLEAR [facility] Color (U) LT. YELLOW YELLOW [facility] Laboratory - UrinalysisOrder ed By: Daphne Emanuel on 04-06-2025 Leukocyte esterase Test strip Ql (U) Negative NEGATIVE [facility] Mucus Ql (Urine sed) TRACE Abnormal NONE SEEN [facility] Nitrite Ql (U) Negative NEGATIVE [facility] Protein Ql (U) Negative NEG/TRACE [facility] Leukocytes [#/volume] correc gely for nucleated erythrocytes in Blood by Automated counOrdered By: Daphne Emanuel on 04-06-2025 WBC corrected for nucl RBC Auto (Bld) [#/Vol] 5.8 10 3/uL 4.0-11.0 [facility] Lymphocytes Auto (Bld) [#/Vo l]Ordered By: Daphne Emanuel on 04-06-2025 Lymphocytes (Bld) [#/Vol] 2.3 10 3/uL 1.2-3.8 [facility] Lymphocytes/100 WBC Auto (Bl d)Ordered By: Daphen Emanuel on 04-06-2025 Lymphocytes/100 WBC (Bld) 39.5 % 20.5-60.0 [facility] MCH Auto (RBC) [Entitic mass ]Ordered By: Daphne Emanuel on 04-06-2025 MCH (RBC) [Entitic mass] 30.0 pg 26.7-34.0 [facility] MCHC Auto (RBC) [Mass/Vol]Or dered By: Daphne Emanuel on 04-06-2025 MCHC (RBC) [Mass/Vol] 32.7 g/dL 29.9-35.2 [facility] MCV Auto (RBC) [Entitic vol] Ordered By: Daphne Emanuel on 04-06-2025 MCV (RBC) [Entitic vol] 91.8 fL 81.0-99.0 F [facility] Monocytes Auto (Bld) [#/Vol] Ordered By: Daphne Emanuel on 04-06-2025 Monocytes (Bld) [#/Vol] 0.8 10 3/uL 0.3-0.8 [facility] Monocytes/100 WBC Auto (Bld) Ordered By: Daphne Emanuel on 04-06-2025 Monocytes/100 WBC (Bld) 13.6 % High 1.7-12.0 [facility] Neutrophils Auto (Bld) [#/Vo l]Ordered By: Daphne Emanuel on 04-06-2025 Neutrophils (Bld) [#/Vol] 1.9 10 3/uL 1.4-6.5 [facility] Neutrophils/100 WBC Auto (Bl d)Ordered By: Daphne Emanuel on 04-06-2025 Neutrophils/100 WBC (Bld) 33.0 % Low 43.0-75.0 [facility] No Panel InformationOrdered By: Daphne Emanuel on 04-06-2025 Urine Bacteria TRACE #/HPF Abnormal NONE SEEN [facility] Urine Culture Reflexed NO [facility] Urine Occult Blood Negative NEGATIVE [facility] Urine Other Casts NONE SEEN #/LPF NONE SEEN [facility] Urine Other Crystals None Seen #/HPF None Seen [facility] Urine RBC 0-2 #/HPF 0-2 [facility] Urine Squamous Epithelial Cells RARE #/LPF NONE/RARE [facility] Urine WBC NONE SEEN #/HPF NONE SEEN [facility] Eosinophils # (Auto) 0.5 10 3/uL 0.0-0.7 [facility] Immature Granulocyte # (Auto) 0.03 10 3/uL 0.00-0.03 [facility] Troponin I High Sensitivity 8.7 pg/mL 4.0-51.3 [facility] Comment on above: CUT-OFF POINTS HAVE [...] volume (Bld) [Entitic vol] 10.7 fL 9.5-13.5 [facility] Platelets Auto (Bld) [#/Vol] Ordered By: Daphne Emanuel on 04-06-2025 Platelets (Bld) [#/Vol] 135 10 3/uL Low 150-450 [facility] Prothrombin time (PT)Ordered By: Daphne Emanuel on 04-06-2025 PT Coag (PPP) [Time] 13.6 s High 9.0-11.6 [facility] RBC Auto (Bld) [#/Vol]Ordere d By: Daphne Emanuel on 04-06-2025 RBC (Bld) [#/Vol] 4.90 10 6/uL 4.20-5.40 [facility] Serum or plasma albumin/glob ulin mass ratioOrdered By: Daphne Emanuel on 04-06-2025 Albumin/Globulin [Mass ratio] 1.2 {ratio} [facility] Serum or plasma anion gap de terminationOrdered By: Daphne Emanuel on 04-06-2025 Anion gap [Moles/Vol] 14.9 mmol/L [facility] Office Visiton 02-12-2025 Follow-up visit [id number] Zoraida Barrios 1935 F Date Provider Department Center 02/12/2025 Sindhu-MISSY BAUER CARD [facility] Family History Problem Relation Age of Onset Hypertension Mother Family Status - Relation Status Age at Mother Father Level of Service:49470 CO OFFICE/OUTPATIENT ESTABLISHED MOD MDM 30 MIN Normal [facility] Basophils Auto (Bld) [#/Vol] on 12-24-2024 Basophils (Bld) [#/Vol] Automated basoph il count High 0.0-0.1 [facility] Basophils/100 WBC Auto (Bld) on 12-24-2024 Basophils/100 WBC (Bld) Automated basophil % High 0. 2-2.0 [facility] Eosinophils/100 WBC Auto (Bl d)on 12-24-2024 Eosinophils/100 WBC (Bld) Automated eosinophil % 0.9-7.0 [facility] Erythrocyte distribution wid th Auto (RBC) [Ratio]on 12-24-2024 Erythrocyte distribution width (RBC) [Ratio] Erythrocyte distribution width [Ratio] by Automated count 11.0-15.0 [facility] Estimated glomerular filtrat ion rate (GFR) non- Americanon 12-24-2024 GFR/1.73 sq M.predicted among non-blacks MDRD (S/P/Bld) [Vol rate/Area] Estimated glomerular filtration rate (GFR) non- Low >=60 mL/min/1.[address] [facility] Globulin Calc (S) [Mass/Vol] on 12-24-2024 Globulin (S) [Mass/Vol] Serum globulin measurement by calculation (mass/volume) [facility] Hematocrit Auto (Bld) [Volum e fraction]on 12-24-2024 Hematocrit (Bld) [Volume fraction] Hematocrit [Volume Fraction] of Blood by Automated count 36.0-48.0 [facility] Hemoglobin [Mass/volume] in Bloodon 12-24-2024 Hemoglobin (Bld) [Mass/Vol] Hemoglobin [Mass/volume] in Blood 12.0-16.0 [facility] Laboratory - Chemistry and C hemistry - challengeon 12-24-2024 Albumin [Mass/Vol] 3.4 g/dL 3.4-5.0 [facility] ALP [Catalytic activity/Vol] 55 U/L 46-116 [facility] ALT [Catalytic activity/Vol] 14 U/L 14-59 [facility] AST [Catalytic activity/Vol] 15 U/L 15-37 [facility] Bilirubin [Mass/Vol] 0.3 mg/dL 0.2-1.0 [facility] Calcium [Mass/Vol] 9.8 mg/dL 8.5-10.1 [facility] Chloride [Moles/Vol] 106 mmol/L 98-107 [facility] CO2 [Moles/Vol] 29.4 mmol/L 21.0-32.0 [facility] Creatinine [Mass/Vol] 1.24 mg/dL High 0.55-1.02 [facility] GFR/1.73 sq M.predicted MDRD (S/P/Bld) [Vol rate/Area] 49 mL/min/{1.73_m2} Low >=60 mL/min/1.[address] [facility] Glucose [Mass/Vol] 158 mg/dL High 74-106 [facility] Potassium [Moles/Vol] 3.5 mmol/L 3.5-5.1 [facility] Protein [Mass/Vol] 6.3 g/dL Low 6.4-8.2 [facility] Sodium [Moles/Vol] 143 mmol/L 136-145 [facility] Urea nitrogen [Mass/Vol] 25.0 mg/dL High 7.0-18.0 [facility] Urea nitrogen/Creatinine [Mass ratio] 20.2 mg/mg [facility] Laboratory - Hematology and Cell countson 12-24-2024 Immature granulocytes/100 WBC (Bld) 0.4 % 0.0-0.5 [facility] Leukocytes [#/volume] correc gely for nucleated erythrocytes in Blood by Automated counon 12-24-2024 WBC corrected for nucl RBC Auto (Bld) [#/Vol] Leukocytes [#/volume] corrected for nucleated erythrocytes in Blood by Automated coun 4.0-11.0 [facility] Lymphocytes Auto (Bld) [#/Vo l]on 12-24-2024 Lymphocytes (Bld) [#/Vol] Lymphocytes [#/volume] in Blood by Automated count 1.2-3.8 [facility] Lymphocytes/100 WBC Auto (Bl d)on 12-24-2024 Lymphocytes/100 WBC (Bld) Lymphocytes/100 leukocytes in Blood by Automated count 20.5-60.0 [facility] MCH Auto (RBC) [Entitic mass ]on 12-24-2024 MCH (RBC) [Entitic mass] MCH [Entitic mass] by Automated count 26.7-34.0 [facility] MCHC Auto (RBC) [Mass/Vol]on 12-24-2024 MCHC (RBC) [Mass/Vol] MCHC [Mass/volume] by Automated count 29.9-35.2 [facility] MCV Auto (RBC) [Entitic vol] on 12-24-2024 MCV (RBC) [Entitic vol] MCV [Entitic vol ume] by Automated count 81.0-99.0 [facility] Monocytes Auto (Bld) [#/Vol] on 12-24-2024 Monocytes (Bld) [#/Vol] Automated blood monocyte count 0.3-0.8 [facility] Monocytes/100 WBC Auto (Bld) on 12-24-2024 Monocytes/100 WBC (Bld) Automated monocyte % High 1. 7-12.0 [facility] Neutrophils Auto (Bld) [#/Vo l]on 12-24-2024 Neutrophils (Bld) [#/Vol] Neutrophils [#/volume] in Blood by Automated count 1.4-6.5 [facility] Neutrophils/100 WBC Auto (Bl d)on 12-24-2024 Neutrophils/100 WBC (Bld) Automated neutrophil % 43.0-75.0 [facility] No Panel Informationon 12-24 Eosinophils # (Auto) 0.3 10 3/uL 0.0-0.7 [facility] Immature Granulocyte # (Auto) 0.02 10 3/uL 0.00-0.03 [facility] Troponin I High Sensitivity 8.8 pg/mL 4.0-51.3 [facility] Comment on above: CUT-OFF POINTS HAVE [...] volume] in Blood by Automated count 9.5-13.5 [facility] Platelets Auto (Bld) [#/Vol] on 12-24-2024 Platelets (Bld) [#/Vol] Platelets [#/vol ume] in Blood by Automated count Low 150-450 [facility] RBC Auto (Bld) [#/Vol]on RBC (Bld) [#/Vol] Erythrocytes [#/volume] in Blood by Automated count 4.20-5.40 [facility] Serum or plasma albumin/glob ulin mass ratioon 12-24-2024 Albumin/Globulin [Mass ratio] Serum or plasma albumin/globulin mass ratio [facility] Serum or plasma anion gap de terminationon 12-24-2024 Anion gap [Moles/Vol] Serum or plasma an ion gap determination [facility] Office Visiton 11-28-2024 Follow-up visit [id number] Zoraida Barrios 1935 F Date Provider Department Center 11/28/2024 EDVIN PALM CRISTOBAL Barber Family History Problem Relation Age of Onset Hypertension Mother Family Status - Relation Status Age at Mother Level of Service:46291 CO OFFICE/OUTPATIENT ESTABLISHED LOW MDM 20 MIN Normal [facility] Office Visiton 06-28-2024 Follow-up visit [id number] Zoraida Barrios 1935 F Date Provider Department Center 06/28/2024 AALIYAH HENDERSON CRISTOBAL Barber Family History Problem Relation Age of Onset Hypertension Mother Family Status - Relation Status Age at Mother Level of Service:26057 CO OFFICE/OUTPATIENT ESTABLISHED LOW MDM 20 MIN Normal [facility] Basophils Auto (Bld) [#/Vol] on 05-15-2024 Basophils (Bld) [#/Vol] 0.2 10 3/uL High 0.0-0.1 [facility] Basophils/100 WBC Auto (Bld) on 05-15-2024 Basophils/100 WBC (Bld) 2.2 % High 0.2-2.0 F [facility] Eosinophils/100 WBC Auto (Bl d)on 05-15-2024 Eosinophils/100 WBC (Bld) 5.0 % 0.9-7.0 [facility] Erythrocyte distribution wid th Auto (RBC) [Ratio]on 05-15-2024 Erythrocyte distribution width (RBC) [Ratio] 14.7 % 11.0-15.0 [facility] Estimated glomerular filtrat ion rate (GFR) non- Americanon 05-15-2024 GFR/1.73 sq M.predicted among non-blacks MDRD (S/P/Bld) [Vol rate/Area] 45 mL/min/{1.73_m2} Low >=60 [facility] Hematocrit Auto (Bld) [Volum e fraction]on 05-15-2024 Hematocrit (Bld) [Volume fraction] 40.2 % 36.0-48.0 [facility] Hemoglobin [Mass/volume] in Bloodon 05-15-2024 Hemoglobin (Bld) [Mass/Vol] 13.0 g/dL 12.0-16.0 [facility] Laboratory - Chemistry and C hemistry - challengeon 05-15-2024 Calcium [Mass/Vol] 9.5 mg/dL 8.5-10.1 [facility] Chloride [Moles/Vol] 105 mmol/L 98-107 [facility] CO2 [Moles/Vol] 26.4 mmol/L 21.0-32.0 [facility] Cobalamin (Vitamin B12) [Mass/Vol] 618.0 pg/mL 193.0-986.0 [facility] Creatinine [Mass/Vol] 1.15 mg/dL High 0.55-1.02 [facility] Free T4 [Mass/Vol] 1.06 ng/dL 0.76-1.46 [facility] GFR/1.73 sq M.predicted MDRD (S/P/Bld) [Vol rate/Area] 54 mL/min/{1.73_m2} Low >=60 [facility] Glucose [Mass/Vol] 104 mg/dL 74-106 [facility] Potassium [Moles/Vol] 4.2 mmol/L 3.5-5.1 [facility] Sodium [Moles/Vol] 137 mmol/L 136-145 [facility] TSH Qn 4.417 m[IU]/L High 0.358-3.740 [facility] Urea nitrogen [Mass/Vol] 20.0 mg/dL High 7.0-18.0 [facility] Urea nitrogen/Creatinine [Mass ratio] 17.4 mg/mg [facility] Laboratory - Hematology and Cell countson 05-15-2024 Immature granulocytes/100 WBC (Bld) 1.3 % High 0.0-0.5 [facility] Leukocytes [#/volume] correc gely for nucleated erythrocytes in Blood by Automated counon 05-15-2024 WBC corrected for nucl RBC Auto (Bld) [#/Vol] 10.4 10 3/uL 4.0-11.0 [facility] Lymphocytes Auto (Bld) [#/Vo l]on 05-15-2024 Lymphocytes (Bld) [#/Vol] 2.1 10 3/uL 1.2-3.8 [facility] Lymphocytes/100 WBC Auto (Bl d)on 05-15-2024 Lymphocytes/100 WBC (Bld) 20.1 % Low 20.5-60.0 [facility] MCH Auto (RBC) [Entitic mass ]on 05-15-2024 MCH (RBC) [Entitic mass] 30.2 pg 26.7-34.0 [facility] MCHC Auto (RBC) [Mass/Vol]on 05-15-2024 MCHC (RBC) [Mass/Vol] 32.3 g/dL 29.9-35.2 [facility] MCV Auto (RBC) [Entitic vol] on 05-15-2024 MCV (RBC) [Entitic vol] 93.3 fL 81.0-99.0 F [facility] Monocytes Auto (Bld) [#/Vol] on 05-15-2024 Monocytes (Bld) [#/Vol] 1.4 10 3/uL High 0.3-0.8 [facility] Monocytes/100 WBC Auto (Bld) on 05-15-2024 Monocytes/100 WBC (Bld) 13.0 % High 1.7-12.0 [facility] Neutrophils Auto (Bld) [#/Vo l]on 05-15-2024 Neutrophils (Bld) [#/Vol] 6.1 10 3/uL 1.4-6.5 [facility] Neutrophils/100 WBC Auto (Bl d)on 05-15-2024 Neutrophils/100 WBC (Bld) 58.4 % 43.0-75.0 [facility] No Panel Informationon 05-15 25-Hydroxy Vitamin D Total 32.6 ng/mL [facility] Comment on above: <20 ng/mL Vit D defi cient20-<30 ng/mL Vit D [id number] ng/mL Vit D sufficient>100 ng/mL Potential Toxicity Eosinophils # (Auto) 0.5 10 3/uL 0.0-0.7 [facility] Folate 12.10 ng/mL 8.60-58.90 [facility] Immature Granulocyte # (Auto) 0.13 10 3/uL High 0.00-0.03 [facility] Platelet mean volume Auto (B ld) [Entitic vol]on 05-15-2024 Platelet mean volume (Bld) [Entitic vol] 10.7 fL 9.5-13.5 [facility] Platelets Auto (Bld) [#/Vol] on 05-15-2024 Platelets (Bld) [#/Vol] 132 10 3/uL Low 150-450 [facility] RBC Auto (Bld) [#/Vol]on RBC (Bld) [#/Vol] 4.31 10 6/uL 4.20-5.40 [facility] Serum or plasma anion gap de terminationon 05-15-2024 Anion gap [Moles/Vol] 9.8 mmol/L [facility] Basophils Auto (Bld) [#/Vol] on 05-10-2024 Basophils (Bld) [#/Vol] 0.2 10 3/uL High 0.0-0.1 [facility] Basophils/100 WBC Auto (Bld) on 05-10-2024 Basophils/100 WBC (Bld) 3.1 % High 0.2-2.0 [facility] Eosinophils/100 WBC Auto (Bl d)on 05-10-2024 Eosinophils/100 WBC (Bld) 6.3 % 0.9-7.0 [facility] Erythrocyte distribution wid th Auto (RBC) [Ratio]on 05-10-2024 Erythrocyte distribution width (RBC) [Ratio] 14.8 % 11.0-15.0 [facility] Estimated glomerular filtrat ion rate (GFR) non- Americanon 05-10-2024 GFR/1.73 sq M.predicted among non-blacks MDRD (S/P/Bld) [Vol rate/Area] 39 mL/min/{1.73_m2} Low >=60 [facility] Fibrin D-dimer [Presence] in Platelet poor plasma by Latex agglutinationon 05-10-2024 Fibrin D-dimer LA Ql (PPP) 0.29 mg/L FEU <=0.59 [facility] Comment on above: Increases in D-Dimer [...] 05-10-2024 Globulin (S) [Mass/Vol] 3.1 g/dL F [facility] Hematocrit Auto (Bld) [Volum e fraction]on 05-10-2024 Hematocrit (Bld) [Volume fraction] 39.6 % 36.0-48.0 [facility] Hemoglobin [Mass/volume] in Bloodon 05-10-2024 Hemoglobin (Bld) [Mass/Vol] 12.9 g/dL 12.0-16.0 [facility] INR in Platelet poor plasma by Coagulation assayon 05-10-2024 INR Coag (PPP) [Relative time] 1.34 {INR} [facility] Comment on above: DESIRED INR:2.0-3.0 CONDITIONS NOT LISTED BELOW2.5-3.5 FOR PROSTHETIC HEART VALVE REPLACEMENT2.5-3.5 RECURRENT THROMBOSIS Laboratory - Chemistry and C hemistry - challengeon 05-10-2024 Bilirubin Ql (U) Negative NEGATIVE [facility] Glucose (U) [Mass/Vol] Negative NEGAT[facility] Ketones Ql (U) Negative NEGATIVE [facility] pH (U) 6.0 [pH] 5.0-9.0 [facility] Specific gravity (U) [Rel density] 1.015 1.005-1.025 [facility] Urobilinogen Qn (U) 0.2 {Myranda'U}/dL 0.2-1.0 [facility] Albumin [Mass/Vol] 3.5 g/dL 3.4-5.0 [facility] ALP [Catalytic activity/Vol] 54 U/L 46-116 [facility] ALT [Catalytic activity/Vol] 17 U/L 14-59 [facility] AST [Catalytic activity/Vol] 14 U/L Low 15-37 [facility] Bilirubin [Mass/Vol] 0.4 mg/dL 0.2-1.0 [facility] Calcium [Mass/Vol] 9.5 mg/dL 8.5-10.1 [facility] Chloride [Moles/Vol] 104 mmol/L 98-107 [facility] CO2 [Moles/Vol] 26.0 mmol/L 21.0-32.0 [facility] Creatinine [Mass/Vol] 1.28 mg/dL High 0.55-1.02 [facility] GFR/1.73 sq M.predicted MDRD (S/P/Bld) [Vol rate/Area] 48 mL/min/{1.73_m2} Low >=60 [facility] Glucose [Mass/Vol] 143 mg/dL High 74-106 [facility] Natriuretic peptide B (Bld) [Mass/Vol] 178.0 pg/mL <=1800.0 [facility] Potassium [Moles/Vol] 3.9 mmol/L 3.5-5.1 [facility] Protein [Mass/Vol] 6.6 g/dL 6.4-8.2 [facility] Sodium [Moles/Vol] 136 mmol/L 136-145 [facility] Urea nitrogen [Mass/Vol] 21.0 mg/dL High 7.0-18.0 [facility] Urea nitrogen/Creatinine [Mass ratio] 16.4 mg/mg [facility] Laboratory - Hematology and Cell countson 05-10-2024 Immature granulocytes/100 WBC (Bld) 0.3 % 0.0-0.5 [facility] Laboratory - Specimen inform ationon 05-10-2024 Appearance (U) CLEAR CLEAR [facility] Color (U) LT. YELLOW YELLOW [facility] Laboratory - Urinalysison Leukocyte esterase Test strip Ql (U) SMALL Abnormal NEGATIVE [facility] Mucus Ql (Urine sed) NONE SEEN NONE SEEN [facility] Nitrite Ql (U) Negative NEGATIVE [facility] Protein Ql (U) Negative NEG/TRACE [facility] Leukocytes [#/volume] correc gely for nucleated erythrocytes in Blood by Automated counon 05-10-2024 WBC corrected for nucl RBC Auto (Bld) [#/Vol] 5.9 10 3/uL 4.0-11.0 [facility] Lymphocytes Auto (Bld) [#/Vo l]on 05-10-2024 Lymphocytes (Bld) [#/Vol] 1.8 10 3/uL 1.2-3.8 [facility] Lymphocytes/100 WBC Auto (Bl d)on 05-10-2024 Lymphocytes/100 WBC (Bld) 31.0 % 20.5-60.0 [facility] MCH Auto (RBC) [Entitic mass ]on 05-10-2024 MCH (RBC) [Entitic mass] 30.4 pg 26.7-34.0 [facility] MCHC Auto (RBC) [Mass/Vol]on 05-10-2024 MCHC (RBC) [Mass/Vol] 32.6 g/dL 29.9-35.2 [facility] MCV Auto (RBC) [Entitic vol] on 05-10-2024 MCV (RBC) [Entitic vol] 93.2 fL 81.0-99.0 [facility] Monocytes Auto (Bld) [#/Vol] on 05-10-2024 Monocytes (Bld) [#/Vol] 0.7 10 3/uL 0.3-0.8 [facility] Monocytes/100 WBC Auto (Bld) on 05-10-2024 Monocytes/100 WBC (Bld) 12.4 % High 1.7-12.0 F [facility] Neutrophils Auto (Bld) [#/Vo l]on 05-10-2024 Neutrophils (Bld) [#/Vol] 2.8 10 3/uL 1.4-6.5 [facility] Neutrophils/100 WBC Auto (Bl d)on 05-10-2024 Neutrophils/100 WBC (Bld) 46.9 % 43.0-75.0 [facility] No Panel Informationon 05-10 Urine Bacteria TRACE #/HPF Abnormal NONE SEEN [facility] Urine Occult Blood TRACE-I NEGATIVE [facility] Urine Other Casts NONE SEEN #/LPF NONE SEEN [facility] Urine Other Crystals None Seen #/HPF None Seen [facility] Urine RBC 5-10 #/HPF Abnormal 0-2 [facility] Urine Squamous Epithelial Cells MODERATE #/LPF Abnormal NONE/RARE [facility] Urine WBC 0-2 #/HPF Abnormal NONE SEEN [facility] Eosinophils # (Auto) 0.4 10 3/uL 0.0-0.7 [facility] Immature Granulocyte # (Auto) 0.02 10 3/uL 0.00-0.03 [facility] Troponin I High Sensitivity 5.5 pg/mL 4.0-51.3 [facility] Comment on above: CUT-OFF POINTS HAVE [...] volume (Bld) [Entitic vol] 10.9 fL 9.5-13.5 [facility] Platelets Auto (Bld) [#/Vol] on 05-10-2024 Platelets (Bld) [#/Vol] 144 10 3/uL Low 150-450 [facility] Prothrombin time (PT)on PT Coag (PPP) [Time] 13.8 s High 9.0-11.6 [facility] RBC Auto (Bld) [#/Vol]on RBC (Bld) [#/Vol] 4.25 10 6/uL 4.20-5.40 [facility] Serum or plasma albumin/glob ulin mass ratioon 05-10-2024 Albumin/Globulin [Mass ratio] 1.1 {ratio} [facility] Serum or plasma anion gap de terminationon 05-10-2024 Anion gap [Moles/Vol] 9.9 mmol/L [facility] Office Visiton 05-01-2024 Follow-up visit [id number] Zoraida Barrios 1935 F Date Provider Department Center 05/01/2024 AALIYAH HENDERSON CARD [facility] Family History Problem Relation Age of Onset Hypertension Mother Family Status - Relation Status Age at Mother Level of Service:40918 CO OFFICE/OUTPATIENT ESTABLISHED LOW MDM 20 MIN Normal [facility] Basophils/100 WBC Manual cnt (Bld)on 04-25-2024 Basophils/100 WBC (Bld) 0.0 % Low 0.2-2.0 F [facility] Eosinophils/100 WBC Manual c nt (Bld)on 04-25-2024 Eosinophils/100 WBC (Bld) 4.0 % 0.9-7.0 [facility] Erythrocyte distribution wid th Auto (RBC) [Ratio]on 04-25-2024 Erythrocyte distribution width (RBC) [Ratio] 14.7 % 11.0-15.0 [facility] Estimated glomerular filtrat ion rate (GFR) non- Americanon 04-25-2024 GFR/1.73 sq M.predicted among non-blacks MDRD (S/P/Bld) [Vol rate/Area] 42 mL/min/{1.73_m2} Low >=60 [facility] Globulin Calc (S) [Mass/Vol] on 04-25-2024 Globulin (S) [Mass/Vol] 3.4 g/dL F [facility] Hematocrit Auto (Bld) [Volum e fraction]on 04-25-2024 Hematocrit (Bld) [Volume fraction] 43.1 % 36.0-48.0 [facility] Hemoglobin [Mass/volume] in Bloodon 04-25-2024 Hemoglobin (Bld) [Mass/Vol] 13.8 g/dL 12.0-16.0 [facility] INR in Platelet poor plasma by Coagulation assayon 04-25-2024 INR Coag (PPP) [Relative time] 1.31 {INR} [facility] Comment on above: DESIRED INR:2.0-3.0 CONDITIONS NOT LISTED BELOW2.5-3.5 FOR PROSTHETIC HEART VALVE REPLACEMENT2.5-3.5 RECURRENT THROMBOSIS Laboratory - Chemistry and C hemistry - challengeon 04-25-2024 Albumin [Mass/Vol] 4.0 g/dL 3.4-5.0 [facility] ALP [Catalytic activity/Vol] 63 U/L 46-116 [facility] ALT [Catalytic activity/Vol] 18 U/L 14-59 [facility] AST [Catalytic activity/Vol] 14 U/L Low 15-37 [facility] Bilirubin [Mass/Vol] 0.7 mg/dL 0.2-1.0 [facility] Calcium [Mass/Vol] 9.6 mg/dL 8.5-10.1 [facility] Chloride [Moles/Vol] 104 mmol/L 98-107 [facility] CO2 [Moles/Vol] 29.2 mmol/L 21.0-32.0 [facility] Creatinine [Mass/Vol] 1.21 mg/dL High 0.55-1.02 [facility] GFR/1.73 sq M.predicted MDRD (S/P/Bld) [Vol rate/Area] 51 mL/min/{1.73_m2} Low >=60 [facility] Glucose [Mass/Vol] 136 mg/dL High 74-106 [facility] Natriuretic peptide B (Bld) [Mass/Vol] 201.0 pg/mL <=1800.0 [facility] Potassium [Moles/Vol] 3.9 mmol/L 3.5-5.1 [facility] Protein [Mass/Vol] 7.4 g/dL 6.4-8.2 [facility] Sodium [Moles/Vol] 139 mmol/L 136-145 [facility] Urea nitrogen [Mass/Vol] 27.0 mg/dL High 7.0-18.0 [facility] Urea nitrogen/Creatinine [Mass ratio] 22.3 mg/mg [facility] Laboratory - Hematology and Cell countson 04-25-2024 Band form neutrophils/100 WBC (Bld) 4.0 % 0-5 [facility] Lymphocytes/100 WBC (Bld) 15.0 % Low 20.5-60.0 [facility] Monocytes/100 WBC (Bld) 3.0 % 1.7-12.0 F [facility] Leukocytes [#/volume] correc gely for nucleated erythrocytes in Blood by Automated counon 04-25-2024 WBC corrected for nucl RBC Auto (Bld) [#/Vol] 13.3 10 3/uL High 4.0-11.0 [facility] MCH Auto (RBC) [Entitic mass ]on 04-25-2024 MCH (RBC) [Entitic mass] 30.1 pg 26.7-34.0 [facility] MCHC Auto (RBC) [Mass/Vol]on 04-25-2024 MCHC (RBC) [Mass/Vol] 32.0 g/dL 29.9-35.2 [facility] MCV Auto (RBC) [Entitic vol] on 04-25-2024 MCV (RBC) [Entitic vol] 93.9 fL 81.0-99.0 [facility] No Panel Informationon 04-25 Troponin I High [...] Absolute Basophils (Manual) 0.00 10 3/uL 0.00-0.10 [facility] Band Neutrophils # (Manual) 0.5 10 3/uL High 0.0-0.3 [facility] Eosinophils # (Manual) 0.53 10 3/uL 0.00-0.70 [facility] Lymphocytes # (Manual) 1.99 10 3/uL 1.20-3.80 [facility] Monocytes # (Manual) 0.39 10 3/uL 0.30-0.80 [facility] Neutrophils # (Manual) 9.84 10 3/uL High 1.4-6.5 [facility] Platelet mean volume Auto (B ld) [Entitic vol]on 04-25-2024 Platelet mean volume (Bld) [Entitic vol] 10.4 fL 9.5-13.5 [facility] Platelets Auto (Bld) [#/Vol] on 04-25-2024 Platelets (Bld) [#/Vol] 145 10 3/uL Low 150-450 [facility] Prothrombin time (PT)on 04-08 PT Coag (PPP) [Time] 13.5 s High 9.0-11.6 [facility] RBC Auto (Bld) [#/Vol]on RBC (Bld) [#/Vol] 4.59 10 6/uL 4.20-5.40 [facility] Segmented neutrophils/100 WB C Manual cnt (Bld)on 04-25-2024 Segmented neutrophils/100 WBC (Bld) 74.0 % [facility] Serum or plasma albumin/glob ulin mass ratioon 04-25-2024 Albumin/Globulin [Mass ratio] 1.2 {ratio} [facility] Serum or plasma anion gap de terminationon 04-25-2024 Anion gap [Moles/Vol] 9.7 mmol/L [facility] Office Visiton 03-28-2024 Follow-up visit [id number] Zoraida Barrios 1935 F Date Provider Department Center 03/28/2024 AALIYAH HENDERSON CARD [facility] Family History Problem Relation Age of Onset Hypertension Mother Family Status - Relation Status Age at Mother Level of Service:95579 CO OFFICE/OUTPATIENT ESTABLISHED LOW MDM 20 MIN Normal [facility] Basophils Auto (Bld) [#/Vol] on 12-28-2023 Basophils (Bld) [#/Vol] 0.2 10 3/uL 0.0-0.1 [facility] Basophils/100 WBC Auto (Bld) on 12-28-2023 Basophils/100 WBC (Bld) 3.4 % 0.2-2.0 F [facility] Eosinophils/100 WBC Auto (Bl d)on 12-28-2023 Eosinophils/100 WBC (Bld) 6.2 % 0.9-7.0 [facility] Erythrocyte distribution wid th Auto (RBC) [Ratio]on 12-28-2023 Erythrocyte distribution width (RBC) [Ratio] 14.8 % 11.0-15.0 [facility] Estimated glomerular filtrat ion rate (GFR) non- Americanon 12-28-2023 GFR/1.73 sq M.predicted among non-blacks MDRD (S/P/Bld) [Vol rate/Area] 46 mL/min/{1.73_m2} >=60 [facility] Hematocrit Auto (Bld) [Volum e fraction]on 12-28-2023 Hematocrit (Bld) [Volume fraction] 42.9 % 36.0-48.0 [facility] Hemoglobin [Mass/volume] in Bloodon 12-28-2023 Hemoglobin (Bld) [Mass/Vol] 13.7 g/dL 12.0-16.0 [facility] Laboratory - Chemistry and C hemistry - challengeon 12-28-2023 Calcium [Mass/Vol] 9.7 mg/dL 8.5-10.1 [facility] Chloride [Moles/Vol] 106 mmol/L 98-107 [facility] CO2 [Moles/Vol] 26.1 mmol/L 21.0-32.0 [facility] Creatinine [Mass/Vol] 1.11 mg/dL 0.55-1.02 [facility] GFR/1.73 sq M.predicted MDRD (S/P/Bld) [Vol rate/Area] 56 mL/min/{1.73_m2} >=60 [facility] Glucose [Mass/Vol] 108 mg/dL 74-106 [facility] Potassium [Moles/Vol] 3.8 mmol/L 3.5-5.1 [facility] Sodium [Moles/Vol] 139 mmol/L 136-145 [facility] Urea nitrogen [Mass/Vol] 22.0 mg/dL 7.0-18.0 [facility] Urea nitrogen/Creatinine [Mass ratio] 19.8 mg/mg [facility] Laboratory - Hematology and Cell countson 12-28-2023 Immature granulocytes/100 WBC (Bld) 0.5 % 0.0-0.5 [facility] Leukocytes [#/volume] correc gely for nucleated erythrocytes in Blood by Automated counon 12-28-2023 WBC corrected for nucl RBC Auto (Bld) [#/Vol] 6.0 10 3/uL 4.0-11.0 [facility] Lymphocytes Auto (Bld) [#/Vo l]on 12-28-2023 Lymphocytes (Bld) [#/Vol] 2.1 10 3/uL 1.2-3.8 [facility] Lymphocytes/100 WBC Auto (Bl d)on 12-28-2023 Lymphocytes/100 WBC (Bld) 34.9 % 20.5-60.0 [facility] MCH Auto (RBC) [Entitic mass ]on 12-28-2023 MCH (RBC) [Entitic mass] 30.0 pg 26.7-34.0 [facility] MCHC Auto (RBC) [Mass/Vol]on 12-28-2023 MCHC (RBC) [Mass/Vol] 31.9 g/dL 29.9-35.2 [facility] MCV Auto (RBC) [Entitic vol] on 12-28-2023 MCV (RBC) [Entitic vol] 93.9 fL 81.0-99.0 F [facility] Monocytes Auto (Bld) [#/Vol] on 12-28-2023 Monocytes (Bld) [#/Vol] 0.9 10 3/uL 0.3-0.8 [facility] Monocytes/100 WBC Auto (Bld) on 12-28-2023 Monocytes/100 WBC (Bld) 15.1 % 1.7-12.0 [facility] Neutrophils Auto (Bld) [#/Vo l]on 12-28-2023 Neutrophils (Bld) [#/Vol] 2.4 10 3/uL 1.4-6.5 [facility] Neutrophils/100 WBC Auto (Bl d)on 12-28-2023 Neutrophils/100 WBC (Bld) 39.9 % 43.0-75.0 [facility] No Panel Informationon 12-27 Eosinophils # (Auto) 0.4 10 3/uL 0.0-0.7 [facility] Immature Granulocyte # (Auto) 0.03 10 3/uL 0.00-0.03 [facility] Troponin I High Sensitivity 6.6 pg/mL 4.0-51.3 [facility] Comment on above: CUT-OFF POINTS HAVE [...] volume (Bld) [Entitic vol] 10.8 fL 9.5-13.5 [facility] Platelets Auto (Bld) [#/Vol] on 12-28-2023 Platelets (Bld) [#/Vol] 142 10 3/uL 150-450 [facility] RBC Auto (Bld) [#/Vol]on RBC (Bld) [#/Vol] 4.57 10 6/uL 4.20-5.40 [facility] Serum or plasma anion gap de terminationon 12-28-2023 Anion gap [Moles/Vol] 10.7 mmol/L [facility] PROF CHEM 8 (BAS METB)on Anion gap [Moles/Vol] 12.5 mmol/L Normal [facility] Comment on above: Performed By: #### B MP #### [facility] [address] [address] [address] Arden Magallon Calcium [Mass/Vol] 10.0 mg/dL Normal 8.5-10.1 [facility] Comment on above: Performed By: #### B MP #### [facility] [address] [address] [address] Arden Magallon Chloride [Moles/Vol] 105 mmol/L Normal 98-107 [facility] Comment on above: Performed By: #### B MP #### [facility] [address] [address] [address] Arden Magallon CO2 [Moles/Vol] 29.9 mmol/L Normal 21.0-32.0 [facility] Comment on above: Performed By: #### B MP #### [facility] [address] [address] [address] Arden Magallon Creatinine [Mass/Vol] 1.26 mg/dL Critically high 0.55-1.02 [facility] Comment on above: Performed By: #### B MP #### [facility] [address] [address] [address] Arden Magallon EGFR-AF KUWAITI 49 mL/min/1.73m2 Critically low >=60 [facility] Comment on above: Performed By: #### B MP #### [facility] [address] [address] [address] Arden Magallon EGFR-NON AF [place]I 40 mL/min/1.73m2 Critically low >=60 [facility] Comment on above: Performed By: #### B MP #### [facility] [address] [address] [address] Arden Magallon Glucose [Mass/Vol] 108 mg/dL Critically high 74-106 [facility] Comment on above: Performed By: #### B MP #### [facility] [address] [address] [address] Arden Magallon Potassium [Moles/Vol] 3.4 mmol/L Critically low 3.5-5.1 [facility] Comment on above: Performed By: #### B MP #### [facility] [address] [address] [address] Arden Magallon Sodium [Moles/Vol] 144 mmol/L Normal 136-145 [facility] Comment on above: Performed By: #### B MP #### [facility] [address] [address] [address] Arden Magallon Urea nitrogen [Mass/Vol] 28.0 mg/dL Critically high 7.0-18.0 [facility] Comment on above: Performed By: #### B MP #### [facility] [address] [address] [address] Arden Magallon Urea nitrogen/Creatinine [Mass ratio] 22.2 mg/mg Normal [facility] Comment on above: Performed By: #### B MP #### [facility] [address] [address] [address] Arden Magallon CARDIAC CINDY 3-6on 2 CK [Catalytic activity/Vol] 27 U/L Normal 26-192 [facility] Comment on above: Performed By: #### B MP #### [facility] [address] [address] [address] Arden Magallon CK.MB [Mass/Vol] 0.84 ng/mL Normal <=3.60 [facility] Comment on above: Performed By: #### B MP #### [facility] [address] [address] [address] Arden Magallon HSTROP 12.4 pg/mL Normal 4.0-51.3 [facility] Comment on above: Result Comment: CUT- OFF POINTS HAVE BEEN ESTABLISHED BASED ON THE FOURTH UNIVERSAL DEFINITIONS OF MYOCARDIAL INFARCTION. THE UPPER REFERENCE LIMIT (URL) OF TROPONIN, DEFINED THE 99TH PERCENTILE OF cTnI DISTRIBUTION IN A REFERENCE POPULATION, HAS BEEN CONFIRMED THE DECISION THRESHOLD FOR CO DIAGNOSIS. Performed By: #### B MP #### [facility] [address] [place] [address] Dr. Arden Magallon CARDIAC CINDY ADMITon 022 CK [Catalytic activity/Vol] 42 U/L Normal 26-192 [facility] Comment on above: Performed By: #### B MP #### [facility] [address] [place] [address] Dr. Arden Magallon CK.MB [Mass/Vol] 0.82 ng/mL Normal <=3.60 [facility] Comment on above: Performed By: #### B MP #### [facility] [address] [place] [address] Dr. Adren Magallon HSTROP 9.8 pg/mL Normal 4.0-51.3 [facility] Comment on above: Result Comment: CUT- OFF POINTS HAVE BEEN ESTABLISHED BASED ON THE FOURTH UNIVERSAL DEFINITIONS OF MYOCARDIAL INFARCTION. THE UPPER REFERENCE LIMIT (URL) OF TROPONIN, DEFINED THE 99TH PERCENTILE OF cTnI DISTRIBUTION IN A REFERENCE POPULATION, HAS BEEN CONFIRMED THE DECISION THRESHOLD FOR CO DIAGNOSIS. Performed By: #### B MP #### [facility] [address] [place] [address] Dr. Arden Magallon IKE 50 ng/mL Normal 9-82 [facility] Comment on above: Performed By: #### B MP #### [facility] [address] [place] [address] Dr. Arden Magallon CBC AUTO DIFFon 09-30-2022 BASO # 0.2 103/ul Critically high 0.0-0.1 [facility] Comment on above: Performed By: #### C BC #### [facility] [address] [place] [address] Dr. Arden Magallon Basophils/100 WBC (Bld) 2.2 % Critically high 0.2-2.0 [facility] Comment on above: Performed By: #### C BC #### [facility] [address] [place] [address] Dr. Arden Magallon EO # 1.3 103/ul Critically high 0.0-0.7 [facility] Comment on above: Performed By: #### C BC #### [facility] [address] [place] [address] Dr. Arden Magallon Eosinophils/100 WBC (Bld) 16.5 % Critically high 0.9-7.0 [facility] Comment on above: Performed By: #### C BC #### [facility] [address] [place] [address] Dr. Arden Magallon Erythrocyte distribution width (RBC) [Ratio] 14.3 % Normal 11.0-15.0 [facility] Comment on above: Performed By: #### C BC #### [facility] [address] [place] [address] Dr. Arden Magallon Hematocrit (Bld) [Volume fraction] 38.3 % Normal 36.0-48.0 [facility] Comment on above: Performed By: #### C BC #### [facility] [address] [place] [address] Dr. Arden Magallon Hemoglobin (Bld) [Mass/Vol] 12.6 g/dL Normal 12.0-16.0 [facility] Comment on above: Performed By: #### C BC #### [facility] [address] [place] [address] Dr. Adren Magallon IG # 0.03 10e3/ul Normal 0.00-0.03 [facility] Comment on above: Performed By: #### C BC #### [facility] [address] [place] [address] Dr. Arden Magallon IG % 0.4 % Normal 0.0-0.5 [facility] Comment on above: Performed By: #### C BC #### [facility] [address] [place] [address] Dr. Arden Magallon LYMPH # 2.4 103/ul Normal 1.2-3.8 [facility] Comment on above: Performed By: #### C BC #### [facility] [address] [place] [address] Dr. Arden Magallon Lymphocytes/100 WBC (Bld) 30.0 % Normal 20.5-60.0 [facility] Comment on above: Performed By: #### C BC #### [facility] [address] [place] [address] Dr. Arden Magallon MANUAL DIFF REQ NO Normal [facility] Comment on above: Performed By: #### C BC #### [facility] [address] [place] [address] Dr. Arden Magallon MCH (RBC) [Entitic mass] 30.7 pg Normal 26.7-34.0 [facility] Comment on above: Performed By: #### C BC #### [facility] [address] [place] [address] Dr. Arden Magallon MCHC (RBC) [Mass/Vol] 32.9 g/dL Normal 29.9-35.2 [facility] Comment on above: Performed By: #### C BC #### [facility] [address] [place] [address] Dr. Arden Magallon MCV (RBC) [Entitic vol] 93.4 fL Normal 81.0-99.0 [facility] Comment on above: Performed By: #### C BC #### [facility] [address] [place] [address] Dr. Arden Magallon MONO # 1.1 103/ul Critically high 0.3-0.8 [facility] Comment on above: Performed By: #### C BC #### [facility] [address] [place] [address] Dr. Arden Magallon Monocytes/100 WBC (Bld) 14.2 % Critically high 1.7-12. 0 [facility] Comment on above: Performed By: #### C BC #### [facility] [address] [place] [address] Dr. Arden Magallon NEUT # 2.9 103/ul Normal 1.4-6.5 [facility] Comment on above: Performed By: #### C BC #### [facility] [address] [place] [address] Dr. Arden Magallon Neutrophils/100 WBC (Bld) 36.7 % Critically low 43.0-75.0 [facility] Comment on above: Performed By: #### C BC #### [facility] [address] [place] [address] Dr. Arden Magallon Platelet mean volume (Bld) [Entitic vol] 11.4 fL Normal 9.5-13.5 [facility] Comment on above: Performed By: #### C BC #### [facility] [address] [place] [address] Dr. Arden Magallon PLT 162 103/ul Normal 150-450 [facility] Comment on above: Performed By: #### C BC #### [facility] [address] [place] [address] Dr. Arden Magallon RBC 4.10 106/ul Critically low 4.20-5.40 [facility] Comment on above: Performed By: #### C BC #### [facility] [address] [place] [address] Dr. Arden Magallon WBC 8.0 103/ul Normal 4.0-11.0 [facility] Comment on above: Performed By: #### C BC #### [facility] [address] [place] [address] Dr. Arden Magallon PROF CHEM 8 (BAS METB)on Anion gap [Moles/Vol] 11.8 mmol/L Normal [facility] Comment on above: Performed By: #### B MP #### [facility] [address] [place] [address] Dr. Arden Magallon Calcium [Mass/Vol] 9.7 mg/dL Normal 8.5-10.1 [facility] Comment on above: Performed By: #### B MP #### [facility] [address] [place] [address] Dr. Arden Magallon Chloride [Moles/Vol] 105 mmol/L Normal 98-107 [facility] Comment on above: Performed By: #### B MP #### [facility] [address] [place] [address] Dr. Arden Magallon CO2 [Moles/Vol] 25.0 mmol/L Normal 21.0-32.0 [facility] Comment on above: Performed By: #### B MP #### [facility] [address] [address] [address] Arden Magallon Creatinine [Mass/Vol] 1.07 mg/dL Critically high 0.55-1.02 [facility] Comment on above: Performed By: #### B MP #### [facility] [address] [address] [address] Arden Magallon EGFR-AF [place]I 59 mL/min/1.73m2 Critically low >=60 [facility] Comment on above: Performed By: #### B MP #### [facility] [address] [address] [address] Arden Magallon EGFR-NON AF [place] 49 mL/min/1.73m2 Critically low >=60 [facility] Comment on above: Performed By: #### B MP #### [facility] [address] [address] [address] Arden Magallon Glucose [Mass/Vol] 106 mg/dL Normal 74-106 [facility] Comment on above: Performed By: #### B MP #### [facility] [address] [address] [address] Arden Magallon Potassium [Moles/Vol] 3.8 mmol/L Normal 3.5-5.1 [facility] Comment on above: Performed By: #### B MP #### [facility] [address] [address] [address] Arden Magallon Sodium [Moles/Vol] 138 mmol/L Normal 136-145 [facility] Comment on above: Performed By: #### B MP #### [facility] [address] [address] [address] Arden Magallon Urea nitrogen [Mass/Vol] 18.0 mg/dL Normal 7.0-18.0 [facility] Comment on above: Performed By: #### B MP #### [facility] [address] [address] [address] Arden Magallon Urea nitrogen/Creatinine [Mass ratio] 16.8 mg/mg Normal [facility] Comment on above: Performed By: #### B MP #### [facility] [address] [place] [address] Dr. Arden Magallon CBC AUTO DIFFon 09-26-2022 BASO # 0.2 103/ul Critically high 0.0-0.1 [facility] Comment on above: Performed By: #### C BC #### [facility] [address] [place] [address] Dr. Arden Magallon Basophils/100 WBC (Bld) 2.1 % Critically high 0.2-2.0 [facility] Comment on above: Performed By: #### C BC #### [facility] [address] [place] [address] Dr. Arden Magallon EO # 1.5 103/ul Critically high 0.0-0.7 [facility] Comment on above: Performed By: #### C BC #### [facility] [address] [place] [address] Dr. Arden Magallon Eosinophils/100 WBC (Bld) 16.6 % Critically high 0.9-7.0 [facility] Comment on above: Performed By: #### C BC #### [facility] [address] [place] [address] Dr. Arden Magallon Erythrocyte distribution width (RBC) [Ratio] 14.1 % Normal 11.0-15.0 [facility] Comment on above: Performed By: #### C BC #### [facility] [address] [place] [address] Dr. Arden Magallon Hematocrit (Bld) [Volume fraction] 37.7 % Normal 36.0-48.0 [facility] Comment on above: Performed By: #### C BC #### [facility] [address] [place] [address] Dr. Arden Magallon Hemoglobin (Bld) [Mass/Vol] 12.5 g/dL Normal 12.0-16.0 [facility] Comment on above: Performed By: #### C BC #### [facility] [address] [place] [address] Dr. Arden Magallon IG # 0.04 10e3/ul Critically high 0.00-0.03 [facility] Comment on above: Performed By: #### C BC #### [facility] [address] [place] [address] Dr. Arden Magallon IG % 0.4 % Normal 0.0-0.5 [facility] Comment on above: Performed By: #### C BC #### [facility] [address] [place] [address] Dr. Arden Maagllon LYMPH # 1.8 103/ul Normal 1.2-3.8 [facility] Comment on above: Performed By: #### C BC #### [facility] [address] [place] [address] Dr. Arden Magallon Lymphocytes/100 WBC (Bld) 19.6 % Critically low 20.5-60.0 [facility] Comment on above: Performed By: #### C BC #### [facility] [address] [place] [address] Dr. Arden Magallon MANUAL DIFF REQ NO Normal [facility] Comment on above: Performed By: #### C BC #### [facility] [address] [place] [address] Dr. Arden Magallon MCH (RBC) [Entitic mass] 31.1 pg Normal 26.7-34.0 [facility] Comment on above: Performed By: #### C BC #### [facility] [address] [place] [address] Dr. Arden Magallon MCHC (RBC) [Mass/Vol] 33.2 g/dL Normal 29.9-35.2 [facility] Comment on above: Performed By: #### C BC #### [facility] [address] [place] [address] Dr. Arden Magallon MCV (RBC) [Entitic vol] 93.8 fL Normal 81.0-99.0 [facility] Comment on above: Performed By: #### C BC #### [facility] [address] [place] [address] Dr. Arden Magallon MONO # 1.1 103/ul Critically high 0.3-0.8 [facility] Comment on above: Performed By: #### C BC #### [facility] [address] [place] [address] Dr. Arden Magallon Monocytes/100 WBC (Bld) 12.1 % Critically high 1.7-12. 0 [facility] Comment on above: Performed By: #### C BC #### [facility] [address] [place] [address] Dr. Arden Magallon NEUT # 4.6 103/ul Normal 1.4-6.5 [facility] Comment on above: Performed By: #### C BC #### [facility] [address] [place] [address] Dr. Arden Magallon Neutrophils/100 WBC (Bld) 49.2 % Normal 43.0-75.0 [facility] Comment on above: Performed By: #### C BC #### [facility] [address] [place] [address] Dr. Arden Magallon Platelet mean volume (Bld) [Entitic vol] 10.8 fL Normal 9.5-13.5 [facility] Comment on above: Performed By: #### C BC #### [facility] [address] [place] [address] Dr. Arden Magallon PLT 149 103/ul Critically low 150-450 [facility] Comment on above: Performed By: #### C BC #### [facility] [address] [place] [address] Dr. Arden Magallon RBC 4.02 106/ul Critically low 4.20-5.40 [facility] Comment on above: Performed By: #### C BC #### [facility] [address] [place] [address] Dr. Arden Magallon WBC 9.3 103/ul Normal 4.0-11.0 [facility] Comment on above: Performed By: #### C BC #### [facility] [address] [place] [address] Dr. Arden Magallon Covid-19 PCR ([facility])on 09-08 SARS-CoV-2 (COVID-19) RNA ISABELLA+probe Ql (Unsp spec) Not detected Normal NOT DETECTED [facility] Comment on above: Result Comment: This test is not yet approved or cleared by the [place] FDA. When there are no FDA-approved or cleared tests available, and other criteria are met, FDA can make tests available under an emergency access mechanism called an Emergency Use Authorization (EUA). The EUA for this test is supported by the Operations Recruiter of Health and Human Service's (HHS's) declaration [...] SARS-CoV-2. Performed By: #### C BC #### [facility] [address] [place] [address] Dr. Arden Magallon INFLUENZA A AND B AGon 09-[facility] Normal [facility] Comment on above: Result Comment: Nega tive for Flu A protein angiten. Infection due to Flu A cannot be ruled out. Flu A angiten in the sample may be below the detection limit of the test. Performed By: #### C BC #### [facility] [address] [place] [address] Dr. Arden Magallon INFLUBNEG SEE BELOW Normal [facility] Comment on above: Result Comment: Nega tive for Flu B protein antigen. Infection due to Flu B cannot be ruled out. Flu B antigen in the sample may be below the detection limit of the test. Performed By: #### C BC #### [facility] [address] [place] [address] Dr. Arden Mgaallon INFLUENZA A AG Negative Normal NEGATIVE SEE COMMENT [facility] Comment on above: Performed By: #### C BC #### [facility] [address] [place] [address] Dr. Arden Magallon INFLUENZA B AG Negative Normal NEGATIVE SEE COMMENT [facility] Comment on above: Performed By: #### C BC #### [facility] [address] [place] [address] Dr. Arden Magallon INTERNAL CONTROLS Within Normal Limits Normal Wi thin Normal Limits [facility] Comment on above: Performed By: #### C BC #### [facility] [address] [place] [address] Dr. Arden Magallon PROF CHEM 8 (BAS METB)on Anion gap [Moles/Vol] 10.8 mmol/L Normal [facility] Comment on above: Performed By: #### P T, DDIM #### [facility] [address] [place] [address] Dr. Arden Magallon Calcium [Mass/Vol] 9.3 mg/dL Normal 8.5-10.1 [facility] Comment on above: Performed By: #### P T, DDIM #### [facility] [address] [place] [address] Dr. Arden Magallon Chloride [Moles/Vol] 107 mmol/L Normal 98-107 [facility] Comment on above: Performed By: #### P T, DDIM #### [facility] [address] [place] [address] Dr. Arden Magallon CO2 [Moles/Vol] 28.0 mmol/L Normal 21.0-32.0 [facility] Comment on above: Performed By: #### P T, DDIM #### [facility] [address] [place] [address] Dr. Arden Magallon Creatinine [Mass/Vol] 0.98 mg/dL Normal 0.55-1.02 [facility] Comment on above: Performed By: #### P T, DDIM #### [facility] [address] [place] [address] Dr. Arden Magallon EGFR-AF KUWAITI >60 Normal >=60 [facility] Comment on above: Performed By: #### P T, DDIM #### [facility] [address] [place], [place] [id number] Dr. Arden Magallon EGFR-NON AF KUWAITI 54 mL/min/1.73m2 Critically low >=60 [facility] Comment on above: Performed By: #### P T, DDIM #### [facility] [address] [place] [address] Dr. Arden Magallon Glucose [Mass/Vol] 111 mg/dL Critically high 74-106 [facility] Comment on above: Performed By: #### P T, DDIM #### [facility] [address] [place] [address] Dr. Arden Magallon Potassium [Moles/Vol] 3.8 mmol/L Normal 3.5-5.1 [facility] Comment on above: Performed By: #### P T, DDIM #### [facility] [address] [place] [address] Dr. Arden Magallon Sodium [Moles/Vol] 142 mmol/L Normal 136-145 [facility] Comment on above: Performed By: #### P T, DDIM #### [facility] [address] [place] [address] Dr. Arden Magallon Urea nitrogen [Mass/Vol] 15.0 mg/dL Normal 7.0-18.0 [facility] Comment on above: Performed By: #### P T, DDIM #### [facility] [address] [place] [address] Dr. Arden Magallon Urea nitrogen/Creatinine [Mass ratio] 15.3 mg/mg Normal [facility] Comment on above: Performed By: #### P T, DDIM #### [facility] [address] [place] [address] Dr. Arden Magallon XR CHEST 1 Von [...] HARJINDERALVIN RAMIREZ Date: 2022-09-26 10:22 Normal [facility] CBC AUTO DIFFon 09-21-2022 BASO # 0.2 103/ul Critically high 0.0-0.1 [facility] Comment on above: Performed By: #### C BC #### [facility] [address] [address] [address] Arden Magallon Basophils/100 WBC (Bld) 2.0 % Normal 0.2-2.0 [facility] Comment on above: Performed By: #### C BC #### [facility] [address] [place] [address] Dr. Arden Magallon EO # 0.8 103/ul Critically high 0.0-0.7 [facility] Comment on above: Performed By: #### C BC #### [facility] [address] [address] [address] Arden Magallon Eosinophils/100 WBC (Bld) 9.7 % Critically high 0.9-7.0 [facility] Comment on above: Performed By: #### C BC #### [facility] [address] [place] [address] Dr. Arden Magallon Erythrocyte distribution width (RBC) [Ratio] 14.2 % Normal 11.0-15.0 [facility] Comment on above: Performed By: #### C BC #### [facility] [address] [place] [address] Dr. Arden Magallon Hematocrit (Bld) [Volume fraction] 39.2 % Normal 36.0-48.0 [facility] Comment on above: Performed By: #### C BC #### [facility] [address] [place] [address] Dr. Arden Magallon Hemoglobin (Bld) [Mass/Vol] 12.7 g/dL Normal 12.0-16.0 [facility] Comment on above: Performed By: #### C BC #### [facility] [address] [place] [address] Dr. Arden Magallon IG # 0.04 10e3/ul Critically high 0.00-0.03 [facility] Comment on above: Performed By: #### C BC #### [facility] [address] [place] [address] Dr. Arden Magallon IG % 0.5 % Normal 0.0-0.5 [facility] Comment on above: Performed By: #### C BC #### [facility] [address] [place] [address] Dr. Arden Magallon LYMPH # 1.7 103/ul Normal 1.2-3.8 [facility] Comment on above: Performed By: #### C BC #### [facility] [address] [place] [address] Dr. Arden Magallon Lymphocytes/100 WBC (Bld) 19.2 % Critically low 20.5-60.0 [facility] Comment on above: Performed By: #### C BC #### [facility] [address] [place] [address] Dr. Arden Magallon MANUAL DIFF REQ NO Normal [facility] Comment on above: Performed By: #### C BC #### [facility] [address] [place] [address] Dr. Arden Magallon MCH (RBC) [Entitic mass] 31.1 pg Normal 26.7-34.0 [facility] Comment on above: Performed By: #### C BC #### [facility] [address] [place] [address] Dr. Arden Magallon MCHC (RBC) [Mass/Vol] 32.4 g/dL Normal 29.9-35.2 [facility] Comment on above: Performed By: #### C BC #### [facility] [address] [place] [address] Dr. Arden Magallon MCV (RBC) [Entitic vol] 96.1 fL Normal 81.0-99.0 [facility] Comment on above: Performed By: #### C BC #### [facility] [address] [place] [address] Dr. Arden Magallon MONO # 0.8 103/ul Normal 0.3-0.8 [facility] Comment on above: Performed By: #### C BC #### [facility] [address] [place] [address] Dr. Arden Magallon Monocytes/100 WBC (Bld) 9.5 % Normal 1.7-12.0 [facility] Comment on above: Performed By: #### C BC #### [facility] [address] [place] [address] Dr. Arden Magallon NEUT # 5.2 103/ul Normal 1.4-6.5 [facility] Comment on above: Performed By: #### C BC #### [facility] [address] [place] [address] Dr. Arden Magallon Neutrophils/100 WBC (Bld) 59.1 % Normal 43.0-75.0 [facility] Comment on above: Performed By: #### C BC #### [facility] [address] [place] [address] Dr. Arden Magallon Platelet mean volume (Bld) [Entitic vol] 11.0 fL Normal 9.5-13.5 [facility] Comment on above: Performed By: #### C BC #### [facility] [address] [place] [address] Dr. Arden Magallon PLT 167 103/ul Normal 150-450 [facility] Comment on above: Performed By: #### C BC #### [facility] [address] [place] [address] Dr. Arden Magallon RBC 4.08 106/ul Critically low 4.20-5.40 [facility] Comment on above: Performed By: #### C BC #### [facility] [address] [place] [address] Dr. Arden Magallon WBC 8.7 103/ul Normal 4.0-11.0 [facility] Comment on above: Performed By: #### C BC #### [facility] [address] [place] [address] Dr. Arden Magallon PROF CHEM 8 (BAS METB)on Anion gap [Moles/Vol] 10.4 mmol/L Normal [facility] Comment on above: Performed By: #### B MP #### [facility] [address] [address] [address] Arden Magallon Calcium [Mass/Vol] 9.9 mg/dL Normal 8.5-10.1 [facility] Comment on above: Performed By: #### B MP #### [facility] [address] [address] [address] Arden Magallon Chloride [Moles/Vol] 104 mmol/L Normal 98-107 [facility] Comment on above: Performed By: #### B MP #### [facility] [address] [address] [address] Arden Magallon CO2 [Moles/Vol] 28.0 mmol/L Normal 21.0-32.0 [facility] Comment on above: Performed By: #### B MP #### [facility] [address] [address] [address] Arden Magallon Creatinine [Mass/Vol] 1.20 mg/dL Critically high 0.55-1.02 [facility] Comment on above: Performed By: #### B MP #### [facility] [address] [address] [address] Arden Magallon EGFR-AF KU[place]I 52 mL/min/1.73m2 Critically low >=60 [facility] Comment on above: Performed By: #### B MP #### [facility] [address] [address] [address] Arden Magallon EGFR-NON AF [place]I 43 mL/min/1.73m2 Critically low >=60 [facility] Comment on above: Performed By: #### B MP #### [facility] [address] [address] [address] Arden Magallon Glucose [Mass/Vol] 133 mg/dL Critically high 74-106 [facility] Comment on above: Performed By: #### B MP #### [facility] [address] [address] [address] Arden Magallon Potassium [Moles/Vol] 3.4 mmol/L Critically low 3.5-5.1 [facility] Comment on above: Performed By: #### B MP #### [facility] [address] [place] [address] Dr. Arden Magallon Sodium [Moles/Vol] 139 mmol/L Normal 136-145 [facility] Comment on above: Performed By: #### B MP #### [facility] [address] [place] [address] Dr. Arden Magallon Urea nitrogen [Mass/Vol] 19.0 mg/dL Critically high 7.0-18.0 [facility] Comment on above: Performed By: #### B MP #### [facility] [address] [place] [address] Dr. Arden Magallon Urea nitrogen/Creatinine [Mass ratio] 15.8 mg/mg Normal [facility] Comment on above: Performed By: #### B MP #### [facility] [address] [place] [address] Dr. Arden Magallon TSHon 09-21-2022 TSH 1.918 uIU/mL Normal 0.358-3.740 [facility] Comment on above: Performed By: #### B MP #### [facility] [address] [place] [address] Dr. Arden Magallon BNPon 09-18-2022 Natriuretic peptide B (Bld) [Mass/Vol] 366.0 pg/mL Normal <=1,800.0 [facility] Comment on above: Performed By: #### B ASSISTANT PORTFOLIO MANAGER, CMP #### [facility] [address] [place] [address] Dr. Arden Magallon CBC AUTO DIFFon 09-18-2022 BASO # 0.1 103/ul Normal 0.0-0.1 [facility] Comment on above: Performed By: #### C BC #### [facility] [address] [place] [address] Dr. Arden Magallon Basophils/100 WBC (Bld) 1.7 % Normal 0.2-2.0 [facility] Comment on above: Performed By: #### C BC #### [facility] [address] [place] [address] Dr. Arden Magallon EO # 0.7 103/ul Normal 0.0-0.7 [facility] Comment on above: Performed By: #### C BC #### [facility] [address] [place] [address] Dr. Arden Magallon Eosinophils/100 WBC (Bld) 9.1 % Critically high 0.9-7.0 [facility] Comment on above: Performed By: #### C BC #### [facility] [address] [place] [address] Dr. Arden Magallon Erythrocyte distribution width (RBC) [Ratio] 14.4 % Normal 11.0-15.0 [facility] Comment on above: Performed By: #### C BC #### [facility] [address] [place] [address] Dr. Arden Magallon Hematocrit (Bld) [Volume fraction] 39.0 % Normal 36.0-48.0 [facility] Comment on above: Performed By: #### C BC #### [facility] [address] [place] [address] Dr. Arden Magallon Hemoglobin (Bld) [Mass/Vol] 12.8 g/dL Normal 12.0-16.0 [facility] Comment on above: Performed By: #### C BC #### [facility] [address] [place] [address] Dr. Arden Magallon IG # 0.02 10e3/ul Normal 0.00-0.03 [facility] Comment on above: Performed By: #### C BC #### [facility] [address] [place] [address] Dr. Arden Magallon IG % 0.3 % Normal 0.0-0.5 [facility] Comment on above: Performed By: #### C BC #### [facility] [address] [place] [address] Dr. Arden Magallon LYMPH # 1.8 103/ul Normal 1.2-3.8 [facility] Comment on above: Performed By: #### C BC #### [facility] [address] [place] [address] Dr. Arden Magallon Lymphocytes/100 WBC (Bld) 23.6 % Normal 20.5-60.0 [facility] Comment on above: Performed By: #### C BC #### [facility] [address] [place] [address] Dr. Arden Magallon MANUAL DIFF REQ NO Normal [facility] Comment on above: Performed By: #### C BC #### [facility] [address] [place] [address] Dr. Arden Magallon MCH (RBC) [Entitic mass] 31.0 pg Normal 26.7-34.0 [facility] Comment on above: Performed By: #### C BC #### [facility] [address] [place] [address] Dr. Arden Magallon MCHC (RBC) [Mass/Vol] 32.8 g/dL Normal 29.9-35.2 [facility] Comment on above: Performed By: #### C BC #### [facility] [address] [place] [address] Dr. Arden Magallon MCV (RBC) [Entitic vol] 94.4 fL Normal 81.0-99.0 [facility] Comment on above: Performed By: #### C BC #### [facility] [address] [place] [address] Dr. Arden Magallon MONO # 1.1 103/ul Critically high 0.3-0.8 [facility] Comment on above: Performed By: #### C BC #### [facility] [address] [place] [address] Dr. Arden Magallon Monocytes/100 WBC (Bld) 15.2 % Critically high 1.7-12. 0 [facility] Comment on above: Performed By: #### C BC #### [facility] [address] [place] [address] Dr. Arden Magallon NEUT # 3.8 103/ul Normal 1.4-6.5 [facility] Comment on above: Performed By: #### C BC #### [facility] [address] [place] [address] Dr. Arden Magallon Neutrophils/100 WBC (Bld) 50.1 % Normal 43.0-75.0 [facility] Comment on above: Performed By: #### C BC #### [facility] [address] [place] [address] Dr. Arden Magallon Platelet mean volume (Bld) [Entitic vol] 11.0 fL Normal 9.5-13.5 [facility] Comment on above: Performed By: #### C BC #### [facility] [address] [address] [address] Arden Magallon PLT 149 103/ul Critically low 150-450 [facility] Comment on above: Performed By: #### C BC #### [facility] [address] [place] [address] Dr. Arden Magallon RBC 4.13 106/ul Critically low 4.20-5.40 [facility] Comment on above: Performed By: #### C BC #### [facility] [address] [place] [address] Dr. Arden Magallon WBC 7.5 103/ul Normal 4.0-11.0 [facility] Comment on above: Performed By: #### C BC #### [facility] [address] [place] [address] Dr. Arden Magallon D-DIMERon 09-18-2022 D-DIMER 0.32 mg/L FEU Normal <=0.59 [facility] Comment on above: Performed By: #### P T, DDIM #### [facility] [address] [place] [address] Dr. Arden Magallon D-DIMER COMMENTS SEE BELOW Normal [facility] Comment on above: Result Comment: Incr [...] Performed By: #### P T, DDIM #### [facility] [address] [address] [address] Arden Magallon PROF 14(COMP METB)on 022 Albumin [Mass/Vol] 3.5 g/dL Normal 3.4-5.0 [facility] Comment on above: Performed By: #### B ASSISTANT PORTFOLIO MANAGER, CMP #### [facility] [address] [address] [address] Arden Magallon Albumin/Globulin [Mass ratio] 1.2 {ratio} Normal [facility] Comment on above: Performed By: #### B ASSISTANT PORTFOLIO MANAGER, CMP #### [facility] [address] [place] [address] Dr. Arden Magallon ALP [Catalytic activity/Vol] 57 U/L Normal 46-116 [facility] Comment on above: Performed By: #### B ASSISTANT PORTFOLIO MANAGER, CMP #### [facility] [address] [place] [address] Dr. Arden Magallon ALT [Catalytic activity/Vol] 16 U/L Normal 14-59 [facility] Comment on above: Performed By: #### B ASSISTANT PORTFOLIO MANAGER, CMP #### [facility] [address] [place] [address] Dr. Arden Magallon Anion gap [Moles/Vol] 9.1 mmol/L Normal [facility] Comment on above: Performed By: #### B ASSISTANT PORTFOLIO MANAGER, CMP #### [facility] [address] [place] [address] Dr. Arden Magallon AST [Catalytic activity/Vol] 17 U/L Normal 15-37 [facility] Comment on above: Performed By: #### B ASSISTANT PORTFOLIO MANAGER, CMP #### [facility] [address] [place] [address] Dr. Arden Magallon Bilirubin [Mass/Vol] 0.3 mg/dL Normal 0.2-1.0 [facility] Comment on above: Performed By: #### B ASSISTANT PORTFOLIO MANAGER, CMP #### [facility] [address] [place] [address] Dr. Arden Magallon Calcium [Mass/Vol] 9.6 mg/dL Normal 8.5-10.1 [facility] Comment on above: Performed By: #### B ASSISTANT PORTFOLIO MANAGER, CMP #### [facility] [address] [address] [address] Arden Magallon Chloride [Moles/Vol] 106 mmol/L Normal 98-107 [facility] Comment on above: Performed By: #### B ASSISTANT PORTFOLIO MANAGER, CMP #### [facility] [address] [address] [address] Arden Magallon CO2 [Moles/Vol] 24.9 mmol/L Normal 21.0-32.0 [facility] Comment on above: Performed By: #### B ASSISTANT PORTFOLIO MANAGER, CMP #### [facility] [address] [address] [address] Arden Magallon Creatinine [Mass/Vol] 1.06 mg/dL Critically high 0.55-1.02 [facility] Comment on above: Performed By: #### B ASSISTANT PORTFOLIO MANAGER, CMP #### [facility] [address] [address] [address] Arden Magallon EGFR-AF [place]I =60 Normal >=60 [facility] Comment on above: Performed By: #### B ASSISTANT PORTFOLIO MANAGER, CMP #### [facility] [address] [address] [address] Arden Magallon EGFR-NON AF [place]I 49 mL/min/1.73m2 Critically low >=60 [facility] Comment on above: Performed By: #### B ASSISTANT PORTFOLIO MANAGER, CMP #### [facility] [address] [address] [address] Arden Magallon Globulin (S) [Mass/Vol] 3.0 g/dL Normal [facility] Comment on above: Performed By: #### B ASSISTANT PORTFOLIO MANAGER, CMP #### [facility] [address] [address] [address] Arden Magallon Glucose [Mass/Vol] 111 mg/dL Critically high 74-106 [facility] Comment on above: Performed By: #### B ASSISTANT PORTFOLIO MANAGER, CMP #### [facility] [address] [address] [address] Arden [place] Potassium [Moles/Vol] 4.0 mmol/L Normal 3.5-5.1 [facility] Comment on above: Performed By: #### B ASSISTANT PORTFOLIO MANAGER, CMP #### [facility] [address] [address] [address] Arden [place] Protein [Mass/Vol] 6.5 g/dL Normal 6.4-8.2 [facility] Comment on above: Performed By: #### B ASSISTANT PORTFOLIO MANAGER, CMP #### [facility] [address] [address] [address] Arden [place] Sodium [Moles/Vol] 136 mmol/L Normal 136-145 [facility] Comment on above: Performed By: #### B ASSISTANT PORTFOLIO MANAGER, CMP #### [facility] [address] [address] [address] Arden Magall[place] Urea nitrogen [Mass/Vol] 16.0 mg/dL Normal 7.0-18.0 [facility] Comment on above: Performed By: #### B ASSISTANT PORTFOLIO MANAGER, CMP #### [facility] [address] [address] [address] Arden Magallon Urea nitrogen/Creatinine [Mass ratio] 15.1 mg/mg Normal [facility] Comment on above: Performed By: #### B ASSISTANT PORTFOLIO MANAGER, CMP #### [facility] [address] [address] [address] Arden Magallon TROPONIN, HIGH SENSITIVITYon 09-18-2022 HSTROP 8.3 pg/mL Normal 4.0-51.3 [facility] Comment on above: Result Comment: CUT- OFF POINTS HAVE BEEN ESTABLISHED BASED ON THE FOURTH UNIVERSAL DEFINITIONS OF MYOCARDIAL INFARCTION. THE UPPER REFERENCE LIMIT (URL) OF TROPONIN, DEFINED THE 99TH PERCENTILE OF cTnI DISTRIBUTION IN A REFERENCE POPULATION, HAS BEEN CONFIRMED THE DECISION THRESHOLD FOR CO DIAGNOSIS. Performed By: #### B ASSISTANT PORTFOLIO MANAGER, CMP #### [facility] [address] [address] [address] Arden Magallon XR CHEST 1 Von [...] BERNIE NAVARRO Date: 2022-09-18 16:11 Normal [facility] CBC AUTO DIFFon 09-11-2022 BASO # 0.1 103/ul Normal 0.0-0.1 [facility] Comment on above: Performed By: #### B MP #### [facility] [address] [address] [address] Arden [place]all[place] Basophils/100 WBC (Bld) 2.3 % Critically high 0.2-2.0 [facility] Comment on above: Performed By: #### B MP #### [facility] [address] [address] [address] Arden Magallon EO # 0.5 103/ul Normal 0.0-0.7 [facility] Comment on above: Performed By: #### B MP #### [facility] [address] [address] [address] Arden Magallon Eosinophils/100 WBC (Bld) 8.0 % Critically high 0.9-7.0 [facility] Comment on above: Performed By: #### B MP #### [facility] [address] [address] [address] Arden [place]all[place] Erythrocyte distribution width (RBC) [Ratio] 13.8 % Normal 11.0-15.0 [facility] Comment on above: Performed By: #### B MP #### [facility] [address] [address] [address] Arden [place]all[place] Hematocrit (Bld) [Volume fraction] 40.5 % Normal 36.0-48.0 [facility] Comment on above: Performed By: #### B MP #### [facility] [address] [place] [address] Dr. Arden Magallon Hemoglobin (Bld) [Mass/Vol] 13.5 g/dL Normal 12.0-16.0 [facility] Comment on above: Performed By: #### B MP #### [facility] [address] [place] [address] Dr. Arden Magallon IG # 0.01 10e3/ul Normal 0.00-0.03 [facility] Comment on above: Performed By: #### B MP #### [facility] [address] [place] [address] Dr. Arden Magallon IG % 0.2 % Normal 0.0-0.5 [facility] Comment on above: Performed By: #### B MP #### [facility] [address] [place] [address] Dr. Arden Magallon LYMPH # 1.5 103/ul Normal 1.2-3.8 [facility] Comment on above: Performed By: #### B MP #### [facility] [address] [place] [address] Dr. Arden Magallon Lymphocytes/100 WBC (Bld) 24.9 % Normal 20.5-60.0 [facility] Comment on above: Performed By: #### B MP #### [facility] [address] [place] [address] Dr. Arden Magallon MANUAL DIFF REQ NO Normal [facility] Comment on above: Performed By: #### B MP #### [facility] [address] [place] [address] Dr. Arden Magallon MCH (RBC) [Entitic mass] 31.1 pg Normal 26.7-34.0 [facility] Comment on above: Performed By: #### B MP #### [facility] [address] [place] [address] Dr. Arden Magallon MCHC (RBC) [Mass/Vol] 33.3 g/dL Normal 29.9-35.2 [facility] Comment on above: Performed By: #### B MP #### [facility] [address] [place] [address] Dr. Arden Magallon MCV (RBC) [Entitic vol] 93.3 fL Normal 81.0-99.0 [facility] Comment on above: Performed By: #### B MP #### [facility] [address] [address] [address] Arden Magallon MONO # 1.0 103/ul Critically high 0.3-0.8 [facility] Comment on above: Performed By: #### B MP #### [facility] [address] [address] [address] Arden Magallon Monocytes/100 WBC (Bld) 16.0 % Critically high 1.7-12. 0 [facility] Comment on above: Performed By: #### B MP #### [facility] [address] [place] [address] Dr. Arden Magallon NEUT # 2.9 103/ul Normal 1.4-6.5 [facility] Comment on above: Performed By: #### B MP #### [facility] [address] [place] [address] Dr. Arden Magall[place] Neutrophils/100 WBC (Bld) 48.6 % Normal 43.0-75.0 [facility] Comment on above: Performed By: #### B MP #### [facility] [address] [place] [address] Dr. Arden [place]all[place] Platelet mean volume (Bld) [Entitic vol] 10.8 fL Normal 9.5-13.5 [facility] Comment on above: Performed By: #### B MP #### [facility] [address] [place] [address] Dr. Arden Magallon PLT 138 103/ul Critically low 150-450 [facility] Comment on above: Performed By: #### B MP #### [facility] [address] [place] [address] Dr. Arden Magallon RBC 4.34 106/ul Normal 4.20-5.40 [facility] Comment on above: Performed By: #### B MP #### [facility] [address] [place] [address] Dr. Arden Magallon WBC 6.0 103/ul Normal 4.0-11.0 [facility] Comment on above: Performed By: #### B MP #### [facility] [address] [place] [address] Dr. Arden Magallon PROF CHEM 8 (BAS METB)on Anion gap [Moles/Vol] 9.0 mmol/L Normal [facility] Comment on above: Performed By: #### P T, DDIM #### [facility] [address] [place] [address] Dr. Arden Magall[place] Calcium [Mass/Vol] 9.6 mg/dL Normal 8.5-10.1 [facility] Comment on above: Performed By: #### P T, DDIM #### [facility] [address] [place] [address] Dr. Arden Magall[place] Chloride [Moles/Vol] 105 mmol/L Normal 98-107 [facility] Comment on above: Performed By: #### P T, DDIM #### [facility] [address] [place] [address] Dr. Arden Magallon CO2 [Moles/Vol] 29.1 mmol/L Normal 21.0-32.0 [facility] Comment on above: Performed By: #### P T, DDIM #### [facility] [address] [place] [address] Dr. Arden Magallon Creatinine [Mass/Vol] 1.00 mg/dL Normal 0.55-1.02 [facility] Comment on above: Performed By: #### P T, DDIM #### [facility] [address] [place] [address] Dr. Arden Magallon EGFR-AF KUWAITI >60 Normal >=60 [facility] Comment on above: Performed By: #### P T, DDIM #### [facility] [address] [place] [address] Dr. Arden Magallon EGFR-NON AF KU[place]I 53 mL/min/1.73m2 Critically low >=60 [facility] Comment on above: Performed By: #### P T, DDIM #### [facility] [address] [place] [address] Dr. Arden Magall[place] Glucose [Mass/Vol] 116 mg/dL Critically high 74-106 [facility] Comment on above: Performed By: #### P T, DDIM #### [facility] [address] [place] [address] Dr. Arden [place] Potassium [Moles/Vol] 4.1 mmol/L Normal 3.5-5.1 [facility] Comment on above: Performed By: #### P T, DDIM #### [facility] [address] [place] [address] Dr. Arden [place] Sodium [Moles/Vol] 139 mmol/L Normal 136-145 [facility] Comment on above: Performed By: #### P T, DDIM #### [facility] [address] [place] [address] Dr. Arden Magallon Urea nitrogen [Mass/Vol] 15.0 mg/dL Normal 7.0-18.0 [facility] Comment on above: Performed By: #### P T, DDIM #### [facility] [address] [place] [address] Dr. Arden Magall[place] Urea nitrogen/Creatinine [Mass ratio] 15.0 mg/mg Normal [facility] Comment on above: Performed By: #### P T, DDIM #### [facility] [address] [place] [address] Dr. Arden Magallon CBC AUTO DIFFon 08-30-2022 BASO # 0.2 103/ul Critically high 0.0-0.1 [facility] Comment on above: Performed By: #### B ASSISTANT PORTFOLIO MANAGER, CMP #### [facility] [address] [place] [address] Dr. Arden Magall[place] Basophils/100 WBC (Bld) 2.7 % Critically high 0.2-2.0 [facility] Comment on above: Performed By: #### B ASSISTANT PORTFOLIO MANAGER, CMP #### [facility] [address] [place] [address] Dr. Arden Magallon EO # 0.5 103/ul Normal 0.0-0.7 [facility] Comment on above: Performed By: #### B ASSISTANT PORTFOLIO MANAGER, CMP #### [facility] [address] [place] [address] Dr. Arden [place] Eosinophils/100 WBC (Bld) 6.7 % Normal 0.9-7.0 [facility] Comment on above: Performed By: #### B ASSISTANT PORTFOLIO MANAGER, CMP #### [facility] [address] [place] [address] Dr. Arden Magallon Erythrocyte distribution width (RBC) [Ratio] 14.3 % Normal 11.0-15.0 [facility] Comment on above: Performed By: #### B ASSISTANT PORTFOLIO MANAGER, CMP #### [facility] [address] [place] [address] Dr. Arden Magallon Hematocrit (Bld) [Volume fraction] 43.1 % Normal 36.0-48.0 [facility] Comment on above: Performed By: #### B ASSISTANT PORTFOLIO MANAGER, CMP #### [facility] [address] [place] [address] Dr. Arden Magallon Hemoglobin (Bld) [Mass/Vol] 14.5 g/dL Normal 12.0-16.0 [facility] Comment on above: Performed By: #### B ASSISTANT PORTFOLIO MANAGER, CMP #### [facility] [address] [place] [address] Dr. Arden Magallon IG # 0.02 10e3/ul Normal 0.00-0.03 [facility] Comment on above: Performed By: #### B ASSISTANT PORTFOLIO MANAGER, CMP #### [facility] [address] [place] [address] Dr. Arden Magallon IG % 0.3 % Normal 0.0-0.5 [facility] Comment on above: Performed By: #### B ASSISTANT PORTFOLIO MANAGER, CMP #### [facility] [address] [place] [address] Dr. Arden Magallon LYMPH # 3.1 103/ul Normal 1.2-3.8 [facility] Comment on above: Performed By: #### B ASSISTANT PORTFOLIO MANAGER, CMP #### [facility] [address] [place] [address] Dr. Arden Magallon Lymphocytes/100 WBC (Bld) 41.0 % Normal 20.5-60.0 [facility] Comment on above: Performed By: #### B ASSISTANT PORTFOLIO MANAGER, CMP #### [facility] [address] [address] [address] Arden Magallon MANUAL DIFF REQ NO Normal [facility] Comment on above: Performed By: #### B ASSISTANT PORTFOLIO MANAGER, CMP #### [facility] [address] [place] [address] Dr. Arden Magallon MCH (RBC) [Entitic mass] 31.6 pg Normal 26.7-34.0 [facility] Comment on above: Performed By: #### B ASSISTANT PORTFOLIO MANAGER, CMP #### [facility] [address] [place] [address] Dr. Arden Magallon MCHC (RBC) [Mass/Vol] 33.6 g/dL Normal 29.9-35.2 [facility] Comment on above: Performed By: #### B ASSISTANT PORTFOLIO MANAGER, CMP #### [facility] [address] [place] [address] Dr. Arden Magallon MCV (RBC) [Entitic vol] 93.9 fL Normal 81.0-99.0 [facility] Comment on above: Performed By: #### B ASSISTANT PORTFOLIO MANAGER, CMP #### [facility] [address] [place] [address] Dr. Arden Magallon MONO # 0.8 103/ul Normal 0.3-0.8 [facility] Comment on above: Performed By: #### B ASSISTANT PORTFOLIO MANAGER, CMP #### [facility] [address] [place] [address] Dr. Arden Magallon Monocytes/100 WBC (Bld) 10.9 % Normal 1.7-12.0 [facility] Comment on above: Performed By: #### B ASSISTANT PORTFOLIO MANAGER, CMP #### [facility] [address] [place] [address] Dr. Arden Magallon NEUT # 2.9 103/ul Normal 1.4-6.5 [facility] Comment on above: Performed By: #### B ASSISTANT PORTFOLIO MANAGER, CMP #### [facility] [address] [place] [address] Dr. Arden [place] Neutrophils/100 WBC (Bld) 38.4 % Critically low 43.0-75.0 [facility] Comment on above: Performed By: #### B ASSISTANT PORTFOLIO MANAGER, CMP #### [facility] [address] [place] [address] Dr. Arden Magallon Platelet mean volume (Bld) [Entitic vol] 10.8 fL Normal 9.5-13.5 [facility] Comment on above: Performed By: #### B ASSISTANT PORTFOLIO MANAGER, CMP #### [facility] [address] [place] [address] Dr. Arden Magallon PLT 165 103/ul Normal 150-450 [facility] Comment on above: Performed By: #### B ASSISTANT PORTFOLIO MANAGER, CMP #### [facility] [address] [place] [address] Dr. Arden Magallon RBC 4.59 106/ul Normal 4.20-5.40 [facility] Comment on above: Performed By: #### B ASSISTANT PORTFOLIO MANAGER, CMP #### [facility] [address] [place] [address] Dr. Arden Magallon WBC 7.5 103/ul Normal 4.0-11.0 [facility] Comment on above: Performed By: #### B ASSISTANT PORTFOLIO MANAGER, CMP #### [facility] [address] [place] [address] Dr. Arden Magallon PROF 14(COMP METB)on 022 Albumin [Mass/Vol] 3.9 g/dL Normal 3.4-5.0 [facility] Comment on above: Performed By: #### P T, DDIM #### [facility] [address] [place] [address] Dr. Arden Magallon Albumin/Globulin [Mass ratio] 1.2 {ratio} Normal [facility] Comment on above: Performed By: #### P T, DDIM #### [facility] [address] [place] [address] Dr. Arden Magallon ALP [Catalytic activity/Vol] 69 U/L Normal 46-116 [facility] Comment on above: Performed By: #### P T, DDIM #### [facility] [address] [place] [address] Dr. Arden Magallon ALT [Catalytic activity/Vol] 16 U/L Normal 14-59 [facility] Comment on above: Performed By: #### P T, DDIM #### [facility] [address] [place] [address] Dr. Arden Magallon Anion gap [Moles/Vol] 8.6 mmol/L Normal [facility] Comment on above: Performed By: #### P T, DDIM #### [facility] [address] [place] [address] Dr. Arden Magallon AST [Catalytic activity/Vol] 14 U/L Critically low 15-37 [facility] Comment on above: Performed By: #### P T, DDIM #### [facility] [address] [place] [address] Dr. Arden Magallon Bilirubin [Mass/Vol] 0.3 mg/dL Normal 0.2-1.0 [facility] Comment on above: Performed By: #### P T, DDIM #### [facility] [address] [place] [address] Dr. Arden Magallon Calcium [Mass/Vol] 9.5 mg/dL Normal 8.5-10.1 [facility] Comment on above: Performed By: #### P T, DDIM #### [facility] [address] [place] [address] Dr. Arden Magallon Chloride [Moles/Vol] 104 mmol/L Normal 98-107 [facility] Comment on above: Performed By: #### P T, DDIM #### [facility] [address] [place] [address] Dr. Arden Magallon CO2 [Moles/Vol] 29.2 mmol/L Normal 21.0-32.0 [facility] Comment on above: Performed By: #### P T, DDIM #### [facility] [address] [place] [address] Dr. Arden Magallon Creatinine [Mass/Vol] 1.25 mg/dL Critically high 0.55-1.02 [facility] Comment on above: Performed By: #### P T, DDIM #### [facility] [address] [place] [address] Dr. Arden Magallon EGFR-AF KUWAITI 49 mL/min/1.73m2 Critically low >=60 [facility] Comment on above: Performed By: #### P T, DDIM #### [facility] [address] [address] [address] Arden Magallon EGFR-NON AF [place]I 41 mL/min/1.73m2 Critically low >=60 [facility] Comment on above: Performed By: #### P T, DDIM #### [facility] [address] [address] [address] Arden Magallon Globulin (S) [Mass/Vol] 3.3 g/dL Normal [facility] Comment on above: Performed By: #### P T, DDIM #### [facility] [address] [place] [address] Dr. Arden Magallon Glucose [Mass/Vol] 119 mg/dL Critically high 74-106 [facility] Comment on above: Performed By: #### P T, DDIM #### [facility] [address] [place] [address] Dr. Arden Magallon Potassium [Moles/Vol] 3.8 mmol/L Normal 3.5-5.1 [facility] Comment on above: Performed By: #### P T, DDIM #### [facility] [address] [place] [address] Dr. Arden Magallon Protein [Mass/Vol] 7.2 g/dL Normal 6.4-8.2 [facility] Comment on above: Performed By: #### P T, DDIM #### [facility] [address] [place] [address] Dr. Arden Magallon Sodium [Moles/Vol] 138 mmol/L Normal 136-145 [facility] Comment on above: Performed By: #### P T, DDIM #### [facility] [address] [place] [address] Dr. Arden Magallon Urea nitrogen [Mass/Vol] 24.0 mg/dL Critically high 7.0-18.0 [facility] Comment on above: Performed By: #### P T, DDIM #### [facility] [address] [address] [address] Arden Magallon Urea nitrogen/Creatinine [Mass ratio] 19.2 mg/mg Normal [facility] Comment on above: Performed By: #### P T, DDIM #### [facility] [address] [place] [address] Dr. Arden Magallon BNPon 08-26-2022 Natriuretic peptide B (Bld) [Mass/Vol] 427.0 pg/mL Normal <=1,800.0 [facility] Comment on above: Performed By: #### P T, DDIM #### [facility] [address] [place] [address] Dr. Arden Magallon CARDIAC CINDY ADMITon 022 CK [Catalytic activity/Vol] 56 U/L Normal 26-192 [facility] Comment on above: Performed By: #### P T, DDIM #### [facility] [address] [place] [address] Dr. Arden Magallon CK.MB [Mass/Vol] 1.41 ng/mL Normal <=3.60 [facility] Comment on above: Performed By: #### P T, DDIM #### [facility] [address] [place] [address] Dr. Arden Magallon HSTROP 9.0 pg/mL Normal 4.0-51.3 [facility] Comment on above: Result Comment: CUT- OFF POINTS HAVE BEEN ESTABLISHED BASED ON THE FOURTH UNIVERSAL DEFINITIONS OF MYOCARDIAL INFARCTION. THE UPPER REFERENCE LIMIT (URL) OF TROPONIN, DEFINED THE 99TH PERCENTILE OF cTnI DISTRIBUTION IN A REFERENCE POPULATION, HAS BEEN CONFIRMED THE DECISION THRESHOLD FOR CO DIAGNOSIS. Performed By: #### P T, DDIM #### [facility] [address] [place] [address] Dr. Arden Magallon IKE 99 ng/mL Critically high 9-82 [facility] Comment on above: Performed By: #### P T, DDIM #### [facility] [address] [place] [address] Dr. Arden Magallon CBC AUTO DIFFon 08-26-2022 BASO # 0.2 103/ul Critically high 0.0-0.1 [facility] Comment on above: Performed By: #### C BC #### [facility] [address] [place] [address] Dr. Arden Magallon Basophils/100 WBC (Bld) 2.2 % Critically high 0.2-2.0 [facility] Comment on above: Performed By: #### C BC #### [facility] [address] [place] [address] Dr. Arden Magallon EO # 0.4 103/ul Normal 0.0-0.7 [facility] Comment on above: Performed By: #### C BC #### [facility] [address] [place] [address] Dr. Arden Magallon Eosinophils/100 WBC (Bld) 5.1 % Normal 0.9-7.0 [facility] Comment on above: Performed By: #### C BC #### [facility] [address] [place] [address] Dr. Arden Magallon Erythrocyte distribution width (RBC) [Ratio] 14.1 % Normal 11.0-15.0 [facility] Comment on above: Performed By: #### C BC #### [facility] [address] [place] [address] Dr. Arden Magallon Hematocrit (Bld) [Volume fraction] 41.2 % Normal 36.0-48.0 [facility] Comment on above: Performed By: #### C BC #### [facility] [address] [place] [address] Dr. Arden Magallon Hemoglobin (Bld) [Mass/Vol] 13.6 g/dL Normal 12.0-16.0 [facility] Comment on above: Performed By: #### C BC #### [facility] [address] [place] [address] Dr. Arden Magallon IG # 0.03 10e3/ul Normal 0.00-0.03 [facility] Comment on above: Performed By: #### C BC #### [facility] [address] [place] [address] Dr. Arden Magallon IG % 0.4 % Normal 0.0-0.5 [facility] Comment on above: Performed By: #### C BC #### [facility] [address] [address] [address] Arden Magallon LYMPH # 2.4 103/ul Normal 1.2-3.8 [facility] Comment on above: Performed By: #### C BC #### [facility] [address] [address] [address] Arden Magallon Lymphocytes/100 WBC (Bld) 30.1 % Normal 20.5-60.0 [facility] Comment on above: Performed By: #### C BC #### [facility] [address] [place] [address] Dr. Arden Magallon MANUAL DIFF REQ NO Normal [facility] Comment on above: Performed By: #### C BC #### [facility] [address] [place] [address] Dr. Arden Magallon MCH (RBC) [Entitic mass] 30.8 pg Normal 26.7-34.0 [facility] Comment on above: Performed By: #### C BC #### [facility] [address] [place] [address] Dr. Arden Magallon MCHC (RBC) [Mass/Vol] 33.0 g/dL Normal 29.9-35.2 [facility] Comment on above: Performed By: #### C BC #### [facility] [address] [place] [address] Dr. Arden Magallon MCV (RBC) [Entitic vol] 93.4 fL Normal 81.0-99.0 [facility] Comment on above: Performed By: #### C BC #### [facility] [address] [place] [address] Dr. Arden Magallon MONO # 0.8 103/ul Normal 0.3-0.8 [facility] Comment on above: Performed By: #### C BC #### [facility] [address] [place] [address] Dr. Arden Magallon Monocytes/100 WBC (Bld) 9.8 % Normal 1.7-12.0 [facility] Comment on above: Performed By: #### C BC #### [facility] [address] [address] [address] Arden Magallon NEUT # 4.2 103/ul Normal 1.4-6.5 [facility] Comment on above: Performed By: #### C BC #### [facility] [address] [place] [address] Dr. Arden Magallon Neutrophils/100 WBC (Bld) 52.4 % Normal 43.0-75.0 [facility] Comment on above: Performed By: #### C BC #### [facility] [address] [place] [address] Dr. Arden Magallon Platelet mean volume (Bld) [Entitic vol] 10.7 fL Normal 9.5-13.5 [facility] Comment on above: Performed By: #### C BC #### [facility] [address] [place] [address] Dr. Arden Magallon PLT 154 103/ul Normal 150-450 [facility] Comment on above: Performed By: #### C BC #### [facility] [address] [place] [address] Dr. Arden Magallon RBC 4.41 106/ul Normal 4.20-5.40 [facility] Comment on above: Performed By: #### C BC #### [facility] [address] [place] [address] Dr. Arden Magallon WBC 8.1 103/ul Normal 4.0-11.0 [facility] Comment on above: Performed By: #### C BC #### [facility] [address] [place] [address] Dr. Arden Magallon PROF 14(COMP METB)on 022 Albumin [Mass/Vol] 3.7 g/dL Normal 3.4-5.0 [facility] Comment on above: Performed By: #### P T, DDIM #### [facility] [address] [place] [address] Dr. Arden Magallon Albumin/Globulin [Mass ratio] 1.2 {ratio} Normal [facility] Comment on above: Performed By: #### P T, DDIM #### [facility] [address] [address] [address] Arden Magallon ALP [Catalytic activity/Vol] 57 U/L Normal 46-116 [facility] Comment on above: Performed By: #### P T, DDIM #### [facility] [address] [address] [address] Arden Magallon ALT [Catalytic activity/Vol] 17 U/L Normal 14-59 [facility] Comment on above: Performed By: #### P T, DDIM #### [facility] [address] [address] [address] Arden Magallon Anion gap [Moles/Vol] 9.1 mmol/L Normal [facility] Comment on above: Performed By: #### P T, DDIM #### [facility] [address] [place] [address] Dr. Arden Magallon AST [Catalytic activity/Vol] 12 U/L Critically low 15-37 [facility] Comment on above: Performed By: #### P T, DDIM #### [facility] [address] [address] [address] Arden Magallon Bilirubin [Mass/Vol] 0.6 mg/dL Normal 0.2-1.0 [facility] Comment on above: Performed By: #### P T, DDIM #### [facility] [address] [address] [address] Arden Magallon Calcium [Mass/Vol] 9.5 mg/dL Normal 8.5-10.1 [facility] Comment on above: Performed By: #### P T, DDIM #### [facility] [address] [address] [address] Arden Magallon Chloride [Moles/Vol] 105 mmol/L Normal 98-107 [facility] Comment on above: Performed By: #### P T, DDIM #### [facility] [address] [address] [address] Arden Magallon CO2 [Moles/Vol] 27.9 mmol/L Normal 21.0-32.0 [facility] Comment on above: Performed By: #### P T, DDIM #### [facility] [address] [address] [address] Arden Magallon Creatinine [Mass/Vol] 0.97 mg/dL Normal 0.55-1.02 [facility] Comment on above: Performed By: #### P T, DDIM #### [facility] [address] [address] [address] Arden Magallon EGFR-AF KUWAITI >60 Normal >=60 [facility] Comment on above: Performed By: #### P T, DDIM #### [facility] [address] [address] [address] Arden Magallon EGFR-NON AF KUWAITI 54 mL/min/1.73m2 Critically low >=60 [facility] Comment on above: Performed By: #### P T, DDIM #### [facility] [address] [address] [address] Arden Magallon Globulin (S) [Mass/Vol] 3.0 g/dL Normal [facility] Comment on above: Performed By: #### P T, DDIM #### [facility] [address] [address] [address] Arden Magallon Glucose [Mass/Vol] 105 mg/dL Normal 74-106 [facility] Comment on above: Performed By: #### P T, DDIM #### [facility] [address] [address] [address] Arden Magallon Potassium [Moles/Vol] 4.0 mmol/L Normal 3.5-5.1 [facility] Comment on above: Performed By: #### P T, DDIM #### [facility] [address] [address] [address] Arden Magallon Protein [Mass/Vol] 6.7 g/dL Normal 6.4-8.2 [facility] Comment on above: Performed By: #### P T, DDIM #### [facility] [address] [address] [address] Arden Magallon Sodium [Moles/Vol] 138 mmol/L Normal 136-145 [facility] Comment on above: Performed By: #### P T, DDIM #### [facility] [address] [place] [address] Dr. Arden Magallon Urea nitrogen [Mass/Vol] 18.0 mg/dL Normal 7.0-18.0 [facility] Comment on above: Performed By: #### P T, DDIM #### [facility] [address] [place] [address] Dr. Arden Magallon Urea nitrogen/Creatinine [Mass ratio] 18.6 mg/mg Normal [facility] Comment on above: Performed By: #### P T, DDIM #### [facility] [address] [place] [address] Dr. Arden Magallon PROTIMEon 08-26-2022 INR Coag (PPP) [Relative time] 1.49 {INR} Normal [facility] Comment on above: Performed By: #### B ASSISTANT PORTFOLIO MANAGER, CMP #### [facility] [address] [place] [address] Dr. Arden Magallon INR GUIDELINES SEE BELOW Normal [facility] Comment on above: Result Comment: THANH RED INR: 2.0 - 3.0 CONDITIONS NOT LISTED BELOW 2.5 - 3.5 FOR PROSTHETIC HEART VALVE REPLACEMENT 2.5 - 3.5 RECURRENT THROMBOSIS Performed By: #### B ASSISTANT PORTFOLIO MANAGER, CMP #### [facility] [address] [place] [address] Dr. Arden Magallon PT Coag (PPP) [Time] 15.7 s Critically high 9.0-11.6 [facility] Comment on above: Performed By: #### B ASSISTANT PORTFOLIO MANAGER, CMP #### [facility] [address] [place] [address] Dr. Arden Magallon PTTon 08-26-2022 aPTT Coag (Bld) [Time] 30.2 s Normal 22.3-36.2 [facility] Comment on above: Performed By: #### B ASSISTANT PORTFOLIO MANAGER, CMP #### [facility] [address] [place] [address] Dr. Arden Magallon TROPONIN, HIGH SENSITIVITYon 08-26-2022 HSTROP 8.3 pg/mL Normal 4.0-51.3 [facility] Comment on above: Result Comment: CUT- OFF POINTS HAVE BEEN ESTABLISHED BASED ON THE FOURTH UNIVERSAL DEFINITIONS OF MYOCARDIAL INFARCTION. THE UPPER REFERENCE LIMIT (URL) OF TROPONIN, DEFINED THE 99TH PERCENTILE OF cTnI DISTRIBUTION IN A REFERENCE POPULATION, HAS BEEN CONFIRMED THE DECISION THRESHOLD FOR CO DIAGNOSIS. Performed By: #### B MP #### [facility] [address] [address] [address] Arden Magallon XR CHEST 1 Von [...] MOMO R[place] Date: 2022-08-26 12:29 Normal [facility] BNPon 08-17-2022 Natriuretic peptide B (Bld) [Mass/Vol] 414.0 pg/mL Normal <=1,800.0 [facility] Comment on above: Performed By: #### B MP #### [facility] [address] [place] [address] Dr. Arden Magallon CBC AUTO DIFFon 08-17-2022 BASO # 0.2 103/ul Critically high 0.0-0.1 [facility] Comment on above: Performed By: #### B MP #### [facility] [address] [place] [address] Dr. Arden Magallon Basophils/100 WBC (Bld) 2.8 % Critically high 0.2-2.0 [facility] Comment on above: Performed By: #### B MP #### [facility] [address] [place] [address] Dr. Arden Magallon EO # 0.5 103/ul Normal 0.0-0.7 [facility] Comment on above: Performed By: #### B MP #### [facility] [address] [place] [address] Dr. Arden Magallon Eosinophils/100 WBC (Bld) 7.2 % Critically high 0.9-7.0 [facility] Comment on above: Performed By: #### B MP #### [facility] [address] [place] [address] Dr. Arden Magallon Erythrocyte distribution width (RBC) [Ratio] 14.1 % Normal 11.0-15.0 [facility] Comment on above: Performed By: #### B MP #### [facility] [address] [place] [address] Dr. Arden Magallon Hematocrit (Bld) [Volume fraction] 41.2 % Normal 36.0-48.0 [facility] Comment on above: Performed By: #### B MP #### [facility] [address] [place] [address] Dr. Arden Magallon Hemoglobin (Bld) [Mass/Vol] 13.5 g/dL Normal 12.0-16.0 [facility] Comment on above: Performed By: #### B MP #### [facility] [address] [place] [address] Dr. Arden Magallno IG # 0.01 10e3/ul Normal 0.00-0.03 [facility] Comment on above: Performed By: #### B MP #### [facility] [address] [place] [address] Dr. Arden Magallon IG % 0.1 % Normal 0.0-0.5 [facility] Comment on above: Performed By: #### B MP #### [facility] [address] [place] [address] Dr. Arden Magallon LYMPH # 2.7 103/ul Normal 1.2-3.8 [facility] Comment on above: Performed By: #### B MP #### [facility] [address] [place] [address] Dr. Arden Magallon Lymphocytes/100 WBC (Bld) 37.7 % Normal 20.5-60.0 [facility] Comment on above: Performed By: #### B MP #### [facility] [address] [place] [address] Dr. Arden Magallon MANUAL DIFF REQ NO Normal [facility] Comment on above: Performed By: #### B MP #### [facility] [address] [place] [address] Dr. Arden Magallon MCH (RBC) [Entitic mass] 31.2 pg Normal 26.7-34.0 [facility] Comment on above: Performed By: #### B MP #### [facility] [address] [place] [address] Dr. Arden Magallon MCHC (RBC) [Mass/Vol] 32.8 g/dL Normal 29.9-35.2 [facility] Comment on above: Performed By: #### B MP #### [facility] [address] [place] [address] Dr. Arden Magallon MCV (RBC) [Entitic vol] 95.2 fL Normal 81.0-99.0 [facility] Comment on above: Performed By: #### B MP #### [facility] [address] [place] [address] Dr. Arden Magallon MONO # 0.6 103/ul Normal 0.3-0.8 [facility] Comment on above: Performed By: #### B MP #### [facility] [address] [place] [address] Dr. Arden Magallon Monocytes/100 WBC (Bld) 8.2 % Normal 1.7-12.0 [facility] Comment on above: Performed By: #### B MP #### [facility] [address] [place] [address] Dr. Arden Magallon NEUT # 3.1 103/ul Normal 1.4-6.5 [facility] Comment on above: Performed By: #### B MP #### [facility] [address] [place] [address] Dr. Arden Magallon Neutrophils/100 WBC (Bld) 44.0 % Normal 43.0-75.0 [facility] Comment on above: Performed By: #### B MP #### [facility] [address] [place] [address] Dr. Arden Magallon Platelet mean volume (Bld) [Entitic vol] 11.5 fL Normal 9.5-13.5 [facility] Comment on above: Performed By: #### B MP #### [facility] [address] [address] [address] Arden Magallon PLT 160 103/ul Normal 150-450 [facility] Comment on above: Performed By: #### B MP #### [facility] [address] [place] [address] Dr. Arden Magallon RBC 4.33 106/ul Normal 4.20-5.40 [facility] Comment on above: Performed By: #### B MP #### [facility] [address] [place] [address] Dr. Arden Magallon WBC 7.1 103/ul Normal 4.0-11.0 [facility] Comment on above: Performed By: #### B MP #### [facility] [address] [place] [address] Dr. Arden Magallon D-DIMERon 08-17-2022 D-DIMER 0.36 mg/L FEU Normal <=0.59 [facility] Comment on above: Performed By: #### P T, DDIM #### [facility] [address] [place] [address] Dr. Arden Magallon D-DIMER COMMENTS SEE BELOW Normal [facility] Comment on above: Result Comment: Incr [...] Performed By: #### P T, DDIM #### [facility] [address] [place] [address] Dr. Arden Magallon PROF 14(COMP METB)on 022 Albumin [Mass/Vol] 3.7 g/dL Normal 3.4-5.0 [facility] Comment on above: Performed By: #### C BC #### [facility] [address] [place] [address] Dr. Arden Magallon Albumin/Globulin [Mass ratio] 1.1 {ratio} Normal [facility] Comment on above: Performed By: #### C BC #### [facility] [address] [place] [address] Dr. Arden Magallon ALP [Catalytic activity/Vol] 65 U/L Normal 46-116 [facility] Comment on above: Performed By: #### C BC #### [facility] [address] [place] [address] Dr. Arden Magallon ALT [Catalytic activity/Vol] 15 U/L Normal 14-59 [facility] Comment on above: Performed By: #### C BC #### [facility] [address] [place] [address] Dr. Arden Magallon Anion gap [Moles/Vol] 6.1 mmol/L Normal [facility] Comment on above: Performed By: #### C BC #### [facility] [address] [place] [address] Dr. Arden Magallon AST [Catalytic activity/Vol] 11 U/L Critically low 15-37 [facility] Comment on above: Performed By: #### C BC #### [facility] [address] [place] [address] Dr. Arden Magallon Bilirubin [Mass/Vol] 0.4 mg/dL Normal 0.2-1.0 [facility] Comment on above: Performed By: #### C BC #### [facility] [address] [place] [address] Dr. Arden Magallon Calcium [Mass/Vol] 9.6 mg/dL Normal 8.5-10.1 [facility] Comment on above: Performed By: #### C BC #### [facility] [address] [address] [address] Arden Magallon Chloride [Moles/Vol] 106 mmol/L Normal 98-107 [facility] Comment on above: Performed By: #### C BC #### [facility] [address] [place] [address] Dr. Arden Magallon CO2 [Moles/Vol] 29.5 mmol/L Normal 21.0-32.0 [facility] Comment on above: Performed By: #### C BC #### [facility] [address] [place] [address] Dr. Arden Magallon Creatinine [Mass/Vol] 1.02 mg/dL Normal 0.55-1.02 [facility] Comment on above: Performed By: #### C BC #### [facility] [address] [place] [address] Dr. Arden Magallon EGFR-AF KUWAITI >60 Normal >=60 [facility] Comment on above: Performed By: #### C BC #### [facility] [address] [place] [address] Dr. Arden Magallon EGFR-NON AF KUWAITI 51 mL/min/1.73m2 Critically low >=60 [facility] Comment on above: Performed By: #### C BC #### [facility] [address] [place] [address] Dr. Arden Magallon Globulin (S) [Mass/Vol] 3.3 g/dL Normal [facility] Comment on above: Performed By: #### C BC #### [facility] [address] [place] [address] Dr. Arden Magallon Glucose [Mass/Vol] 143 mg/dL Critically high 74-106 [facility] Comment on above: Performed By: #### C BC #### [facility] [address] [place] [address] Dr. Arden Magallon Potassium [Moles/Vol] 3.6 mmol/L Normal 3.5-5.1 [facility] Comment on above: Performed By: #### C BC #### [facility] [address] [place] [address] Dr. Arden Magallon Protein [Mass/Vol] 7.0 g/dL Normal 6.4-8.2 [facility] Comment on above: Performed By: #### C BC #### [facility] [address] [place] [address] Dr. Arden Magallon Sodium [Moles/Vol] 138 mmol/L Normal 136-145 [facility] Comment on above: Performed By: #### C BC #### [facility] [address] [place] [address] Dr. Arden Magallon Urea nitrogen [Mass/Vol] 21.0 mg/dL Critically high 7.0-18.0 [facility] Comment on above: Performed By: #### C BC #### [facility] [address] [place] [address] Dr. Arden Magallon Urea nitrogen/Creatinine [Mass ratio] 20.6 mg/mg Normal [facility] Comment on above: Performed By: #### C BC #### [facility] [address] [place] [address] Dr. Arden Magallon PROTIMEon 08-17-2022 INR Coag (PPP) [Relative time] 1.27 {INR} Normal [facility] Comment on above: Performed By: #### P T, DDIM #### [facility] [address] [place] [address] Dr. Arden Magallon INR GUIDELINES SEE BELOW Normal [facility] Comment on above: Result Comment: THANH RED INR: 2.0 - 3.0 CONDITIONS NOT LISTED BELOW 2.5 - 3.5 FOR PROSTHETIC HEART VALVE REPLACEMENT 2.5 - 3.5 RECURRENT THROMBOSIS Performed By: #### P T, DDIM #### [facility] [address] [place] [address] Dr. Arden Magallon PT Coag (PPP) [Time] 13.5 s Critically high 9.0-11.6 [facility] Comment on above: Performed By: #### P T, DDIM #### [facility] [address] [place] [address] Dr. Arden Magallon TROPONIN, HIGH SENSITIVITYon 08-17-2022 HSTROP 8.3 pg/mL Normal 4.0-51.3 [facility] Comment on above: Result Comment: CUT- OFF POINTS HAVE BEEN ESTABLISHED BASED ON THE FOURTH UNIVERSAL DEFINITIONS OF MYOCARDIAL INFARCTION. THE UPPER REFERENCE LIMIT (URL) OF TROPONIN, DEFINED THE 99TH PERCENTILE OF cTnI DISTRIBUTION IN A REFERENCE POPULATION, HAS BEEN CONFIRMED THE DECISION THRESHOLD FOR CO DIAGNOSIS. Performed By: #### B MP #### [facility] [address] [address] [address] Arden Magallon XR CHEST 1 Von [...] HARJINDER RAMIREZ Date: 2022-08-17 13:57 Normal [facility] URINE PROFILEon 2 Bilirubin Ql (U) Negative Normal NEGATIVE [facility] Comment on above: Performed By: #### P T, DDIM #### [facility] [address] [address] [address] Arden Magallon Clarity (U) CLEAR Normal CLEAR [facility] Comment on above: Performed By: #### P T, DDIM #### [facility] [address] [address] [address] Arden Magallon Color (U) LT. YELLOW Normal YELLOW [facility] Comment on above: Performed By: #### P T, DDIM #### [facility] [address] [place] [address] Dr. Arden Magallon ERUAHD A micrscopic examination will be performed if indicated. Normal [facility] Comment on above: Performed By: #### P T, DDIM #### [facility] [address] [address] [address] Arden Magallon Glucose Ql (U) Negative Normal NEGATIVE [facility] Comment on above: Performed By: #### P T, DDIM #### [facility] [address] [address] [address] Arden Magallon Hemoglobin Ql (U) SMALL Abnormal NEGATIVE [facility] Comment on above: Performed By: #### P T, DDIM #### [facility] [address] [address] [address] Arden Magallon Ketones Ql (U) Negative Normal NEGATIVE [facility] Comment on above: Performed By: #### P T, DDIM #### [facility] [address] [place] [address] Dr. Arden Magallon LEUKOCYTES TRACE Abnormal NEGATIVE [facility] Comment on above: Performed By: #### P T, DDIM #### [facility] [address] [address] [address] Arden Magallon Nitrite Ql (U) Negative Normal NEGATIVE [facility] Comment on above: Performed By: #### P T, DDIM #### [facility] [address] [place] [address] Dr. Arden Magallon pH (U) 7.0 [pH] Normal 5-9 [facility] Comment on above: Performed By: #### P T, DDIM #### [facility] [address] [address] [address] Arden Magallon SPEC GRAVITY 1.010 Normal 1.005-<=1.0 25 [facility] Comment on above: Performed By: #### P T, DDIM #### [facility] [address] [address] [address] Arden Magallon UA PROTEIN Negative Normal NEGATIVE/ TRACE [facility] Comment on above: Performed By: #### P T, DDIM #### [facility] [address] [address] [address] Arden Magallon UR MICRO IND INDICATED Normal [facility] Comment on above: Performed By: #### P T, DDIM #### [facility] [address] [place] [address] Dr. Arden Magallon Urobilinogen Qn (U) 0.2 {Myranda'U}/dL Normal 0.2 - 1. 0 [facility] Comment on above: Performed By: #### P T, DDIM #### [facility] [address] [place] [address] Dr. Arden Magallon URINE MICROSCOPIC ONLYon BACTERIA NONE SEEN Normal NONE SEEN [facility] Comment on above: Performed By: #### P T, DDIM #### [facility] [address] [place] [address] Dr. Arden Magallon Bacteria identified Cx Nom (U) NOT INDICATED Normal [facility] Comment on above: Performed By: #### P T, DDIM #### [facility] [address] [place] [address] Dr. Arden Magallon CAST NONE SEEN Normal NONE SEEN [facility] Comment on above: Performed By: #### P T, DDIM #### [facility] [address] [place] [address] Dr. Arden Magallon Crystals LM Nom (Urine sed) NONE SEEN Normal NONE SEEN [facility] Comment on above: Performed By: #### P T, DDIM #### [facility] [address] [place] [address] Dr. Arden Magallon Epithelial cells LM Ql (Urine sed) RARE Normal NONE SEEN /RARE [facility] Comment on above: Performed By: #### P T, DDIM #### [facility] [address] [place] [address] Dr. Arden Magallon MUCOUS NONE SEEN Normal NONE SEEN [facility] Comment on above: Performed By: #### P T, DDIM #### [facility] [address] [place] [address] Dr. Arden Magallon RBC 0-2 Normal 0-2 [facility] Comment on above: Performed By: #### P T, DDIM #### [facility] [address] [place] [address] Dr. Arden Magallon WBC 0-2 Abnormal NONE SEEN [facility] Comment on above: Performed By: #### P T, DDIM #### [facility] [address] [place] [address] Dr. Arden Magallon XR CHEST 1 Von [...] PANCHO ELY Date: 2022-04-15 22:19 Normal [facility] BNPon 04-15-2022 Natriuretic peptide B (Bld) [Mass/Vol] 318.0 pg/mL Normal <=1,800.0 [facility] Comment on above: Performed By: #### B ASSISTANT PORTFOLIO MANAGER, CMP #### [facility] [address] [place] [address] Dr. Arden Magallon CBC AUTO DIFFon 04-15-2022 BASO # 0.2 103/ul Critically high 0.0-0.1 [facility] Comment on above: Performed By: #### P T, DDIM #### [facility] [address] [place] [address] Dr. Arden Magallon Basophils/100 WBC (Bld) 2.2 % Critically high 0.2-2.0 [facility] Comment on above: Performed By: #### P T, DDIM #### [facility] [address] [place] [address] Dr. Arden Magallon EO # 0.5 103/ul Normal 0.0-0.7 [facility] Comment on above: Performed By: #### P T, DDIM #### [facility] [address] [place] [address] Dr. Arden Magallon Eosinophils/100 WBC (Bld) 6.2 % Normal 0.9-7.0 [facility] Comment on above: Performed By: #### P T, DDIM #### [facility] [address] [place] [address] Dr. Arden Magallon Erythrocyte distribution width (RBC) [Ratio] 14.0 % Normal 11.0-15.0 [facility] Comment on above: Performed By: #### P T, DDIM #### [facility] [address] [place] [address] Dr. Arden Magallon Hematocrit (Bld) [Volume fraction] 41.6 % Normal 36.0-48.0 [facility] Comment on above: Performed By: #### P T, DDIM #### [facility] [address] [place] [address] Dr. Arden Magallon Hemoglobin (Bld) [Mass/Vol] 13.8 g/dL Normal 12.0-16.0 [facility] Comment on above: Performed By: #### P T, DDIM #### [facility] [address] [place] [address] Dr. Arden Magallon IG # 0.01 10e3/ul Normal 0.00-0.03 [facility] Comment on above: Performed By: #### P T, DDIM #### [facility] [address] [place] [address] Dr. Arden Magallon IG % 0.1 % Normal 0.0-0.5 [facility] Comment on above: Performed By: #### P T, DDIM #### [facility] [address] [place] [address] Dr. Arden Magallon LYMPH # 3.2 103/ul Normal 1.2-3.8 [facility] Comment on above: Performed By: #### P T, DDIM #### [facility] [address] [place] [address] Dr. Arden Magallon Lymphocytes/100 WBC (Bld) 37.2 % Normal 20.5-60.0 [facility] Comment on above: Performed By: #### P T, DDIM #### [facility] [address] [place] [address] Dr. Arden Magallon MANUAL DIFF REQ NO Normal [facility] Comment on above: Performed By: #### P T, DDIM #### [facility] [address] [place] [address] Dr. Arden Magallon MCH (RBC) [Entitic mass] 31.0 pg Normal 26.7-34.0 [facility] Comment on above: Performed By: #### P T, DDIM #### [facility] [address] [place] [address] Dr. Arden Magallon MCHC (RBC) [Mass/Vol] 33.2 g/dL Normal 29.9-35.2 [facility] Comment on above: Performed By: #### P T, DDIM #### [facility] [address] [place] [address] Dr. Arden Magallon MCV (RBC) [Entitic vol] 93.5 fL Normal 81.0-99.0 [facility] Comment on above: Performed By: #### P T, DDIM #### [facility] [address] [place] [address] Dr. Arden Magallon MONO # 0.8 103/ul Normal 0.3-0.8 [facility] Comment on above: Performed By: #### P T, DDIM #### [facility] [address] [place] [address] Dr. Arden Magallon Monocytes/100 WBC (Bld) 9.4 % Normal 1.7-12.0 [facility] Comment on above: Performed By: #### P T, DDIM #### [facility] [address] [place] [address] Dr. Arden Magallon NEUT # 3.9 103/ul Normal 1.4-6.5 [facility] Comment on above: Performed By: #### P T, DDIM #### [facility] [address] [place] [address] Dr. Arden Magallon Neutrophils/100 WBC (Bld) 44.9 % Normal 43.0-75.0 [facility] Comment on above: Performed By: #### P T, DDIM #### [facility] [address] [address] [address] Arden Magallon Platelet mean volume (Bld) [Entitic vol] 10.7 fL Normal 9.5-13.5 [facility] Comment on above: Performed By: #### P T, DDIM #### [facility] [address] [address] [address] Arden Magallon PLT 158 103/ul Normal 150-450 [facility] Comment on above: Performed By: #### P T, DDIM #### [facility] [address] [place] [address] Dr. Arden Magallon RBC 4.45 106/ul Normal 4.20-5.40 [facility] Comment on above: Performed By: #### P T, DDIM #### [facility] [address] [place] [address] Dr. Arden Magallon WBC 8.7 103/ul Normal 4.0-11.0 [facility] Comment on above: Performed By: #### P T, DDIM #### [facility] [address] [place] [address] Dr. Arden Magallon PROF 14(COMP METB)on 022 Albumin [Mass/Vol] 4.2 g/dL Normal 3.4-5.0 [facility] Comment on above: Performed By: #### B ASSISTANT PORTFOLIO MANAGER, CMP #### [facility] [address] [place] [address] Dr. Arden Magallon Albumin/Globulin [Mass ratio] 1.2 {ratio} Normal [facility] Comment on above: Performed By: #### B ASSISTANT PORTFOLIO MANAGER, CMP #### [facility] [address] [place] [address] Dr. Arden Magallon ALP [Catalytic activity/Vol] 75 U/L Normal 46-116 [facility] Comment on above: Performed By: #### B ASSISTANT PORTFOLIO MANAGER, CMP #### [facility] [address] [place] [address] Dr. Arden Magallon ALT [Catalytic activity/Vol] 31 U/L Normal 14-59 [facility] Comment on above: Performed By: #### B ASSISTANT PORTFOLIO MANAGER, CMP #### [facility] [address] [address] [address] Arden Magallon Anion gap [Moles/Vol] 11.6 mmol/L Normal [facility] Comment on above: Performed By: #### B ASSISTANT PORTFOLIO MANAGER, CMP #### [facility] [address] [address] [address] Arden Magallon AST [Catalytic activity/Vol] 16 U/L Normal 15-37 [facility] Comment on above: Performed By: #### B ASSISTANT PORTFOLIO MANAGER, CMP #### [facility] [address] [address] [address] Arden Magallon Bilirubin [Mass/Vol] 0.4 mg/dL Normal 0.2-1.0 [facility] Comment on above: Performed By: #### B ASSISTANT PORTFOLIO MANAGER, CMP #### [facility] [address] [address] [address] Arden Magallon Calcium [Mass/Vol] 9.7 mg/dL Normal 8.5-10.1 [facility] Comment on above: Performed By: #### B ASSISTANT PORTFOLIO MANAGER, CMP #### [facility] [address] [address] [address] Arden Magallon Chloride [Moles/Vol] 106 mmol/L Normal 98-107 [facility] Comment on above: Performed By: #### B ASSISTANT PORTFOLIO MANAGER, CMP #### [facility] [address] [address] [address] Arden Magallon CO2 [Moles/Vol] 25.2 mmol/L Normal 21.0-32.0 [facility] Comment on above: Performed By: #### B ASSISTANT PORTFOLIO MANAGER, CMP #### [facility] [address] [address] [address] Arden Magallon Creatinine [Mass/Vol] 1.06 mg/dL Critically high 0.55-1.02 [facility] Comment on above: Performed By: #### B ASSISTANT PORTFOLIO MANAGER, CMP #### [facility] [address] [address] [address] Arden Magallon EGFR-AF KUWAITI 60 mL/min/1.73m2 Normal >=60 [facility] Comment on above: Performed By: #### B ASSISTANT PORTFOLIO MANAGER, CMP #### [facility] [address] [address] [address] Arden Magallon EGFR-NON AF KU[place]I 49 mL/min/1.73m2 Critically low >=60 [facility] Comment on above: Performed By: #### B ASSISTANT PORTFOLIO MANAGER, CMP #### [facility] [address] [address] [address] Arden Magallon Globulin (S) [Mass/Vol] 3.4 g/dL Normal [facility] Comment on above: Performed By: #### B ASSISTANT PORTFOLIO MANAGER, CMP #### [facility] [address] [address] [address] Arden Magallon Glucose [Mass/Vol] 123 mg/dL Critically high 74-106 [facility] Comment on above: Performed By: #### B ASSISTANT PORTFOLIO MANAGER, CMP #### [facility] [address] [address] [address] Arden Magallon Potassium [Moles/Vol] 3.8 mmol/L Normal 3.5-5.1 [facility] Comment on above: Performed By: #### B ASSISTANT PORTFOLIO MANAGER, CMP #### [facility] [address] [place] [address] Dr. Arden Magallon Protein [Mass/Vol] 7.6 g/dL Normal 6.4-8.2 [facility] Comment on above: Performed By: #### B ASSISTANT PORTFOLIO MANAGER, CMP #### [facility] [address] [place] [address] Dr. Arden Magallon Sodium [Moles/Vol] 139 mmol/L Normal 136-145 [facility] Comment on above: Performed By: #### B ASSISTANT PORTFOLIO MANAGER, CMP #### [facility] [address] [place] [address] Dr. Arden Magallon Urea nitrogen [Mass/Vol] 22.0 mg/dL Critically high 7.0-18.0 [facility] Comment on above: Performed By: #### B ASSISTANT PORTFOLIO MANAGER, CMP #### [facility] [address] [place] [address] Dr. Arden Magallon Urea nitrogen/Creatinine [Mass ratio] 20.8 mg/mg Normal [facility] Comment on above: Performed By: #### B ASSISTANT PORTFOLIO MANAGER, CMP #### [facility] [address] [place] [address] Dr. Arden Magallon ECHOCARDIO M/2D COMPLETEon 0 04-06-2022 ECHOCARDIO M/2D COMPLETE Patient: ZORAIDA BARRIOS Exam Date: 04/06/2022 : 1935 Gender:F Ordering : SUSAN LONG Admission #: [id number] Family : Order #: [id number] CLICK HERE TO VIEW EXAM ECHOCARDIOGRAM REPORT [...] Area(A4C): 16.40 cm2 Left Atrium Systolic Volume(A2C): 81045 mm3 Left Atrium Systolic Volume(A4C): 94436 mm3 Mitral Valve MV E to A Ratio: 0.60 Deceleration [place]: 2080 mm/s2 Mitral Valve A-Wave Peak Velocity: 103.00 cm/s Mitral Valve E-Wave Peak Velocity: 62.20 cm/s Right Ventricle RV Internal Diastolic Dimension: 3.04 cm Aorta AO Root Diam: 2.90 cm Aortic Valve AoV Area (Peak Bucky): 1.86 cm2 Deceleration [place]: 1080 mm/s2 Pressure Half-Time: 976 ms Peak [...] Grubbs M.D. on 04/06/2022 at 16:27 Normal [facility] US KIDNEYSon 04-06-2022 US KIDNEYS [...] by: BERTHA SOLIZ Date: 2022-04-06 16:45 Normal [facility] BNPon 03-17-2022 Natriuretic peptide B (Bld) [Mass/Vol] 193.0 pg/mL Normal <=1,800.0 [facility] Comment on above: Performed By: #### B ASSISTANT PORTFOLIO MANAGER, CMP #### [facility] [address] [place] [address] Dr. Arden Magallon CBC AUTO DIFFon 03-17-2022 BASO # 0.1 103/ul Normal 0.0-0.1 [facility] Comment on above: Performed By: #### B ASSISTANT PORTFOLIO MANAGER, CMP #### [facility] [address] [place] [address] Dr. Arden Magallon Basophils/100 WBC (Bld) 0.9 % Normal 0.2-2.0 [facility] Comment on above: Performed By: #### B ASSISTANT PORTFOLIO MANAGER, CMP #### [facility] [address] [place] [address] Dr. Arden Magallon EO # 0.4 103/ul Normal 0.0-0.7 [facility] Comment on above: Performed By: #### B ASSISTANT PORTFOLIO MANAGER, CMP #### [facility] [address] [place] [address] Dr. Arden Magallon Eosinophils/100 WBC (Bld) 4.7 % Normal 0.9-7.0 [facility] Comment on above: Performed By: #### B ASSISTANT PORTFOLIO MANAGER, CMP #### [facility] [address] [place] [address] Dr. Arden Magallon Erythrocyte distribution width (RBC) [Ratio] 14.2 % Normal 11.0-15.0 [facility] Comment on above: Performed By: #### B ASSISTANT PORTFOLIO MANAGER, CMP #### [facility] [address] [place] [address] Dr. Arden Magallon Hematocrit (Bld) [Volume fraction] 43.1 % Normal 36.0-48.0 [facility] Comment on above: Performed By: #### B ASSISTANT PORTFOLIO MANAGER, CMP #### [facility] [address] [place] [address] Dr. Arden Magallon Hemoglobin (Bld) [Mass/Vol] 14.1 g/dL Normal 12.0-16.0 [facility] Comment on above: Performed By: #### B ASSISTANT PORTFOLIO MANAGER, CMP #### [facility] [address] [place] [address] Dr. Arden Magallon IG # 0.04 10e3/ul Critically high 0.00-0.03 [facility] Comment on above: Performed By: #### B ASSISTANT PORTFOLIO MANAGER, CMP #### [facility] [address] [place] [address] Dr. Adren Magallon IG % 0.5 % Normal 0.0-0.5 [facility] Comment on above: Performed By: #### B ASSISTANT PORTFOLIO MANAGER, CMP #### [facility] [address] [place] [address] Dr. Arden Magallon LYMPH # 3.0 103/ul Normal 1.2-3.8 [facility] Comment on above: Performed By: #### B ASSISTANT PORTFOLIO MANAGER, CMP #### [facility] [address] [place] [address] Dr. Arden Magallon Lymphocytes/100 WBC (Bld) 34.2 % Normal 20.5-60.0 [facility] Comment on above: Performed By: #### B ASSISTANT PORTFOLIO MANAGER, CMP #### [facility] [address] [place] [address] Dr. Arden Magallon MANUAL DIFF REQ NO Normal [facility] Comment on above: Performed By: #### B ASSISTANT PORTFOLIO MANAGER, CMP #### [facility] [address] [place] [address] Dr. Arden Magallon MCH (RBC) [Entitic mass] 31.3 pg Normal 26.7-34.0 [facility] Comment on above: Performed By: #### B ASSISTANT PORTFOLIO MANAGER, CMP #### [facility] [address] [place] [address] Dr. Arden Magallon MCHC (RBC) [Mass/Vol] 32.7 g/dL Normal 29.9-35.2 [facility] Comment on above: Performed By: #### B ASSISTANT PORTFOLIO MANAGER, CMP #### [facility] [address] [place] [address] Dr. Arden Magallon MCV (RBC) [Entitic vol] 95.8 fL Normal 81.0-99.0 [facility] Comment on above: Performed By: #### B ASSISTANT PORTFOLIO MANAGER, CMP #### [facility] [address] [place] [address] Dr. Arden Magallon MONO # 1.2 103/ul Critically high 0.3-0.8 [facility] Comment on above: Performed By: #### B ASSISTANT PORTFOLIO MANAGER, CMP #### [facility] [address] [place] [address] Dr. Arden Magallon Monocytes/100 WBC (Bld) 13.5 % Critically high 1.7-12. 0 [facility] Comment on above: Performed By: #### B ASSISTANT PORTFOLIO MANAGER, CMP #### [facility] [address] [place] [address] Dr. Arden Magallon NEUT # 4.1 103/ul Normal 1.4-6.5 [facility] Comment on above: Performed By: #### B ASSISTANT PORTFOLIO MANAGER, CMP #### [facility] [address] [place] [address] Dr. Arden Magallon Neutrophils/100 WBC (Bld) 46.2 % Normal 43.0-75.0 [facility] Comment on above: Performed By: #### B ASSISTANT PORTFOLIO MANAGER, CMP #### [facility] [address] [place] [address] Dr. Arden Magallon Platelet mean volume (Bld) [Entitic vol] 11.2 fL Normal 9.5-13.5 [facility] Comment on above: Performed By: #### B ASSISTANT PORTFOLIO MANAGER, CMP #### [facility] [address] [place] [address] Dr. Arden Magallon PLT 160 103/ul Normal 150-450 [facility] Comment on above: Performed By: #### B ASSISTANT PORTFOLIO MANAGER, CMP #### [facility] [address] [place] [address] Dr. Arden Magallon RBC 4.50 106/ul Normal 4.20-5.40 [facility] Comment on above: Performed By: #### B ASSISTANT PORTFOLIO MANAGER, CMP #### [facility] [address] [place] [address] Dr. Arden Magallon WBC 8.9 103/ul Normal 4.0-11.0 [facility] Comment on above: Performed By: #### B ASSISTANT PORTFOLIO MANAGER, CMP #### [facility] [address] [place] [address] Dr. Arden Magallon PROF 14(COMP METB)on 022 Albumin [Mass/Vol] 4.0 g/dL Normal 3.4-5.0 [facility] Comment on above: Performed By: #### B ASSISTANT PORTFOLIO MANAGER, CMP #### [facility] [address] [place] [address] Dr. Adren Magallon Albumin/Globulin [Mass ratio] 1.2 {ratio} Normal [facility] Comment on above: Performed By: #### B ASSISTANT PORTFOLIO MANAGER, CMP #### [facility] [address] [place] [address] Dr. Arden Magallon ALP [Catalytic activity/Vol] 74 U/L Normal 46-116 [facility] Comment on above: Performed By: #### B ASSISTANT PORTFOLIO MANAGER, CMP #### [facility] [address] [place] [address] Dr. Arden Magallon ALT [Catalytic activity/Vol] 28 U/L Normal 14-59 [facility] Comment on above: Performed By: #### B ASSISTANT PORTFOLIO MANAGER, CMP #### [facility] [address] [place] [address] Dr. Arden Magallon Anion gap [Moles/Vol] 11.9 mmol/L Normal [facility] Comment on above: Performed By: #### B ASSISTANT PORTFOLIO MANAGER, CMP #### [facility] [address] [place] [address] Dr. Arden Magallon AST [Catalytic activity/Vol] 18 U/L Normal 15-37 [facility] Comment on above: Performed By: #### B ASSISTANT PORTFOLIO MANAGER, CMP #### [facility] [address] [place] [address] Dr. Arden Magallon Bilirubin [Mass/Vol] 0.4 mg/dL Normal 0.2-1.0 [facility] Comment on above: Performed By: #### B ASSISTANT PORTFOLIO MANAGER, CMP #### [facility] [address] [place] [address] Dr. Arden Magallon Calcium [Mass/Vol] 9.7 mg/dL Normal 8.5-10.1 [facility] Comment on above: Performed By: #### B ASSISTANT PORTFOLIO MANAGER, CMP #### [facility] [address] [place] [address] Dr. Arden Magallon Chloride [Moles/Vol] 105 mmol/L Normal 98-107 [facility] Comment on above: Performed By: #### B ASSISTANT PORTFOLIO MANAGER, CMP #### [facility] [address] [place] [address] Dr. Arden Magallon CO2 [Moles/Vol] 26.3 mmol/L Normal 21.0-32.0 [facility] Comment on above: Performed By: #### B ASSISTANT PORTFOLIO MANAGER, CMP #### [facility] [address] [place] [address] Dr. Arden Magallon Creatinine [Mass/Vol] 1.31 mg/dL Critically high 0.55-1.02 [facility] Comment on above: Performed By: #### B ASSISTANT PORTFOLIO MANAGER, CMP #### [facility] [address] [place] [address] Dr. Arden Magallon EGFR-AF [place]I 47 mL/min/1.73m2 Critically low >=60 [facility] Comment on above: Performed By: #### B ASSISTANT PORTFOLIO MANAGER, CMP #### [facility] [address] [place] [address] Dr. rAden Magallon EGFR-NON AF [place]I 38 mL/min/1.73m2 Critically low >=60 [facility] Comment on above: Performed By: #### B ASSISTANT PORTFOLIO MANAGER, CMP #### [facility] [address] [address] [address] Arden Magallon Globulin (S) [Mass/Vol] 3.3 g/dL Normal [facility] Comment on above: Performed By: #### B ASSISTANT PORTFOLIO MANAGER, CMP #### [facility] [address] [place] [address] Dr. Arden Magallon Glucose [Mass/Vol] 111 mg/dL Critically high 74-106 [facility] Comment on above: Performed By: #### B ASSISTANT PORTFOLIO MANAGER, CMP #### [facility] [address] [place] [address] Dr. Arden Magallon Potassium [Moles/Vol] 4.2 mmol/L Normal 3.5-5.1 [facility] Comment on above: Performed By: #### B ASSISTANT PORTFOLIO MANAGER, CMP #### [facility] [address] [place] [address] Dr. Arden Magallon Protein [Mass/Vol] 7.3 g/dL Normal 6.4-8.2 [facility] Comment on above: Performed By: #### B ASSISTANT PORTFOLIO MANAGER, CMP #### [facility] [address] [place] [address] Dr. Arden Magallon Sodium [Moles/Vol] 139 mmol/L Normal 136-145 [facility] Comment on above: Performed By: #### B ASSISTANT PORTFOLIO MANAGER, CMP #### [facility] [address] [place] [address] Dr. Arden Magallon Urea nitrogen [Mass/Vol] 24.0 mg/dL Critically high 7.0-18.0 [facility] Comment on above: Performed By: #### B ASSISTANT PORTFOLIO MANAGER, CMP #### [facility] [address] [place] [address] Dr. Arden Magallon Urea nitrogen/Creatinine [Mass ratio] 18.3 mg/mg Normal [facility] Comment on above: Performed By: #### B ASSISTANT PORTFOLIO MANAGER, CMP #### [facility] [address] [place] [address] Dr. Arden Magallon TROPONIN, HIGH SENSITIVITYon 03-17-2022 HSTROP 8.6 pg/mL Normal 4.0-51.3 [facility] Comment on above: Result Comment: CUT- OFF POINTS HAVE BEEN ESTABLISHED BASED ON THE FOURTH UNIVERSAL DEFINITIONS OF MYOCARDIAL INFARCTION. THE UPPER REFERENCE LIMIT (URL) OF TROPONIN, DEFINED THE 99TH PERCENTILE OF cTnI DISTRIBUTION IN A REFERENCE POPULATION, HAS BEEN CONFIRMED THE DECISION THRESHOLD FOR CO DIAGNOSIS. Performed By: #### C BC #### [facility] [address] [place] [address] Dr. Arden Magallon Coding Summary.on 03-04-2022 Coding Summary. CD:[id number] Gh 0bWw+PGhlYWQ+FF1BYHXnN 26iiUGdjZ4HM0eCQD2KHBF MPJKYQF3EGW5usPW7EXjjW 2VybiAv SvqdbBPwWS82KVf7TYJ8eM qmBOhqhR1xrHWdO5d7BrWb UP24aZ45KCssZUMqReO4Go ZpbjsgbWFy T1afGzZayHFsPrg+PHRhYm xlIHdpZHRoPScxMDAlJyBz mCuuRB9iTm3zHRXyEAXlaO xhcHNlOiBj p7faCKMpVMkpMA6xfOmzQ8 FxmZL7YASxn7p5Ka92vDR+ SVNcHYQ9tSvsCKvcn841Yp Ueo6ffQRS8 rFKvCCgeWNL8W92yc7I4BC MpTQIkSHC1kUL7aL4fhJzv aisxH5FnzZAcAjP6UXL5aQ AooL2ghJiz hmdbfS9cNrp+I46ZPL8NHP UXEC8VEfc3A4JxUqqjeSM+ BZ34HUNzHU98xSNmnMPxi6 ddqIk1OlFq AGKcJLK7gMuhQFnod2DfVO TwB11ojEXuu6I4MSNerFtt lUSbYiQvqWQ5uN8pIKnrhg bzz4uymlea Hllbe5pjqe72pW57G22qCQ xeRPQeCJT6KCRcISZkcYoq fs2mwE5dKd8+VKwnq9rtg7 kqlSu6IyLu MSRlxbGdgEosBDM0e0EyCh 96U2EddEmal6JaDgb8dv80 bAIgr7G7gXI2KPvhQLIguM 9bZYwfJxN0 XLXjCuQvcK91pWIjUHmzMx 1jjVyajHlcJH4gKXQpmoyo ZCPdiZ9cKTYqsAUteFmkHB 4wNTBpbjtm s197HiZxCTE0DRDipYUfP2 DqlX6bItSaHAUzQSJaT4Ac aTIaGIuzW655HFrdRsT7PR CenuPnT8Xe JENmjGwnAiA8n8D8Nt5Kz4 TmeoguLTV2YZrcKAN6ZrO8 IbRuShP4G7UwTkv6DQZquU rpWQ1uX1Wx JAAijzzscaryqOP2KFCbMH TfoA47sTTuWHrmQl2in3E4 x647DKIyDPDaaF73Ig4ljU ogMTBwdCBU vS9nfwypp5gccmvpKtXdSQ GsEDy2RDb9ICVbtAjfHlCa NKB9QhY4QNA0cBFjnF2wpF duwepneF8q Oyc+F37tpF3iAHP5WXR5ey laCIVzmiIvWY69KM27H4Jl PjwvdGFibGU+PGRpdiBzdH ldST8tCxSr w2ncs0IsRIfkQ6MdRKMrVE yvMew5YQYwYWM5hAL4rR5l RXEnGGmhy7D0zEL2Z7Jxru Pvww1tj9hn NVXuYSbxD86dfGKxf0W7JO PmpLR2EKXmtJybJePqmQ52 Oyc+UCQbqUwta8PqFaytc1 tsm4soiUw0 MmRaRHPzxcRjoWknYVO9k8 MhNj92L36eQKkiTINeVYGr ZLTjQOZldZnelc3jlK0uGn 8+PGNvbCB3 oAZ9yU0nLAPtVtB6SOciP9 57XkSlxPJnUogok4jkr5qm bNl6WlJgBAScwpRsuUjuBQ A5a9KjXm99 U61oOFuoYILzFKYzTPUrWS EzgHbgta8flX0lLr9+PC9j u9xdwr25eF78zDI+PHRkIH I6pPieLJjo CBOadX3cRMpfKyB0ZIEfJb YxhP56zISpYJevNm7fmOjd kJwcMZ2mLPBgdzaxl906Vx Mls8fnDSNr rKSaIUfqNKM2K03hu1N4LC UeUYHsJHY6nCO0tW4vdNtc bjogbGVmdDsgdmVydGljYW qsXVegO683 IHRvcDsnPlBhdGllbnQgTm HvWVf3I6ArHct0JHZdpElc YE1alJQwZLviJo1amSwjrF tgGC2tJNBb rvxwx110DwOmx6zfIJMkqJ KwGLqaUCD4I93ve4L1VLZl KXHkHRO5zAR4fR1zoIeerl ogbGVmdDsg pyRzlVtiYBwjJEwuU198FI RvcDsnPkJpcnRoIERhdGU6 FF46KY25xPBbd4H0lDL3X5 BhZGRpbmct nazviYD6ILQhIHTsvG27Im 0ftCgdZm3nHKZjLSP4AYZs nGLoH3IksN8gHoPcRJHwSW VkF7QpgBAw XKkmM835WNagIvW9LCCaoq CeV3ByAEAmyYnjIrO1f8H7 Gk2TI8H4PB71AA43pQQvs0 M3dHG9G8Co UPLbhqoibfrcgBJ2NXLhWV IhfX44Nw1tcDqyRf6pSXQw TZM5AYReiKIyQ0XcwA7xEb AjMDAwMDAw Z8GwvSJiKMusT940WHawDd S5VNHjgnGjO2JrQSRtnOxq PbB6w8U5Qg2NMEq8RU93XV 08rESlq1N4 pEK5V8EwAMHuguarvwwpxN T8YCHdDLKbbF91Ub4msZuy Uz1iHQMeBJO4NOFivQNeH4 IrhN8cZiVo TNLmRLOqQ2IbtFSkGWadE8 94MVguKmA6KVWpqiKfL7Oy YEUjgEzsJsO1r6V0Sj0COM IeTV15QNY5 uAZ6WZ62XL96T8PyFtbxgM FibGU+PHRhYmxlIHdpZHRo GZpeCDPrBpSztLmpKR6kAp 9yZGVyLWNv eXezrKRrEjEzv2tdIPSsGF huRQ5lmQfbO6YdxRO1JUFp z8f5Lt64P21oD1HgyGT+PG MijWE3yFB2 jU2tQkXkXnJ6LXijF958Ex AyjIRlGsrql7fke3nnbSm8 NcJ7ZQWindIrwSpbJVY9f3 BwLn89Y74b IHdpZHRoPSIxNSUiIHZhbG gmor4skW4xHu6+PGNvbCB3 cOJ4mX8cCgFsZqD6IYyiQ0 49InRvcCIv Ugaqx0qbl1ggdIe9IpXeGS XxdbAfbExcQGJ8w0XjRa77 F1BhrKafh5NtYpy9cm77aI Vei4G1zVV2 S3YxEIMblhkauZVrjGezKI 6zJMBpyjqaQGNjjU5uTKEt L4z1KmFhQtA7BRggG2Jtdi I3QWEjfASo MBdpWSY1A44xd1V7KDAaZH LgPXW9nZO0zQ4izAffcvni bGVmdDsgdmVydGljYWwtYW twU666LANp uSnuSAAlvK0wMIUwlUXkwQ kaHK1oXVTusovjRaBMNCZt LCBERUxFRTwvdGQ+PHRkIH B0sKrpEZbc XVQrfB9xFRIaU4o8NcNbIy Z3FYqiQ0HjRDNkygskGr65 uE7yTsFgOjJ8KVafJ1Beel Z3DLHdxPJm TXmrHDS4J70mt9P8ULEoQK KkPDC5sRC4cK5fwCnljusn bGVmdDsgdmVydGljYWwtYW jpB716NMUz zCruZhXiAxX8FgU8CqA8L0 EtYib1RRPtuNlpUB7tuKPe ERtpYl0rpYwelPzyHQ7gHS BpbjtwYWRk xH8kLXKerBUisSjkCT8wQY Njjqyjv720CdUeNLS0ZJQs rLGuH2MccO3wZqSmYSQbMG ZdO1OdwNQd EUmdT105GTpsFiF2KVBhit FcC1ZlDDNaiDfrGbY6i0F6 Ej71KtYLYDNodzelnSE+PH XqDEF4zWrp LOiiYBNwhG7xIAUlE2k5Eu YmGlV5IXazZ1StDJHumdmr Nj30fI6gJdZsCxW3JOliV6 EozkF0IQUn jGGrCMpoLIE7V37za6Q4JX RyMVZpOWB9rJT9nU3rrMok bjogbGVmdDsgdmVydGljYW gyMQdfM450 IHRvcDsnPkZlbWFsZTwvdG Q+XYTqXLU9yVggYOudXISz cX1uGMDyW4r2JeRsSfP7DP jlR8PyGUJb entlQp65xQ3lAwIwFjK3HG lpE7UikqK3KCXpqHYjEFdq FVU5G18aj1E3VUBbQSNbBV J9oQB7fT5s bGlnbjogbGVmdDsgdmVydG acNCswKAlyV114HFCgfIji MrRiOXKiFW6kePcfgMN+PC 66rg22J2Cx BmgsOiu5VXHjEBG4nIO0aA 1vXIRxXXsht8D1gBL3U5Qg rvTyjj8pa3tgSRFxUXxdP6 9tkIDha1Z4 MZGcaGN7PLIbhMxkYnIqrG 93Oyc+CQDgiKgcc7BwVbvt r9kys6nkgFm9QrTaOQTwcl FsaWduPSJ0 k5NzEr87A14wOUszKXVbSQ OtSPZqSMVjdDrvwl9icW8x Ii8+DMHkwZJ4nPF6zM5wMc FtVhM6DHbs O947ZrRdqVNeUaena4bfu8 ulrEl8WwNjQDRavpEevVgw RTX8i2GtOw02M3AbjJoav7 YrEke3fp12 dNVqo0Y9aFZ0I8LnYNUmib cfrLRkoYymLV0aSWGvmruc SFSiuO4cOVRbL5e3JxNqWf F6DDjrO7Fj fjI9SOKokXQyXMIetBYUnR 4afvbti0xmaotfGyIyYDTd FTt9JIx8BXUssVkjYeYjII W4PsA9OKY6 tOFvfS0ygAmvolcxwB8nBo c+CRd3r5airGClTS8cyEC8 VT00KW66qMXbt3I6zOK9J5 BhZGRpbmct xudxwJO2IWZmAYSexS67Xj 6whIhbMh5fULMuMCG3GTWk cEGaQ6QgoE9dEnXuZRIoJY BcD7IouTSl TVxeN197LIweTkV2QUOkvf YnK7IvZJScoZhiRpH3q2T2 Fi5KEQ40KA24AH49kRYnc5 U7sJZ0C2Rh RDXjiahicdzcdCM0NDFzWE OaoR82Lx3bdMqmGb4uETIk KRM4OKCkbUGcP0BvdR7yMr AjMDAwMDAw P9AwfZDePLvmR532UNhkZv R5ZUGlmeXdE6UyARGxlDsl KzJ4a9P0Qm2BHg15SH48NO 02bWMmq0O3 uUX7Q2IbLGStegdpaiyqnA K8XJCtGXDldK25Hs2whYkv Qe9lRQJhLTD1QBLfrAAzT3 HdwH2kNrSr ZRLaHSPvE1ZpbYTkPDriX5 59KPhcSsI7BNTfnvJkY7Yc TIKutUgiOpF0d5X2Wt5HGS ydsqn2C5Wt PjwvdHI+SR87ANScCQ88rZ JftTBfc1wcpBb8FuVrJETp WIA8fLagDOkmm6VvBFJvP0 8hbKAvc8X9 IGNv (more content not included)... Normal [facility] Auto Diffon 02-24-2022 Basophils/100 WBC (Bld) 4.4 % High 0.0-2.0 [facility] Comment on above: Order Comment: Order Added by Discern Expert. Performed By: #### 1 [id number], 7336137, [id number], 5485927, [id number] #### [facility] [address] [place] [address] Basophils/Leukocytes Auto (Bld) [Pure # fraction] 0.3 E9/L High 0.0-0.2 [facility] Comment on above: Order Comment: Order Added by Discern Expert. Performed By: #### 1 [id number], 7822919, [id number], 6790859, 0065516 #### [facility] [address] [place] [address] Eosinophils/100 WBC (Bld) 3.8 % Normal 0.0-8.0 [facility] Comment on above: Order Comment: Order Added by Discern Expert. Performed By: #### 1 7597660, 6017426, 38326980, 7231351, 2988115 #### [facility] [address] [place] [address] Eosinophils/Leukocytes Auto (Bld) [Pure # fraction] 0.3 E9/L Normal 0.0-0.5 [facility] Comment on above: Order Comment: Order Added by Discern Expert. Performed By: #### 1 [id number], 0808313, 41477048, 3281606, 7449391 #### [facility] [address] [place] [address] Lymphocytes/100 WBC (Bld) 31.3 % Normal 14.0-50.0 [facility] Comment on above: Order Comment: Order Added by Discern Expert. Performed By: #### 1 7073168, 1777819, 00547923, 1249431, 1914170 #### [facility] [address] [place] [address] Lymphocytes/Leukocytes Auto (Bld) [Pure # fraction] 2.3 E9/L Normal 1.0-4.0 [facility] Comment on above: Order Comment: Order Added by Andrew Expert. Performed By: #### 1 4329971, 4379527, 75015986, 9641613, 9030742 #### [facility] [address] [place] [address] Monocytes/100 WBC (Bld) 12.8 % Normal 4.0-14.0 [facility] Comment on above: Order Comment: Order Added by Andrew Expert. Performed By: #### 1 0749277, 8374985, 56017872, 1895786, 6144953 #### [facility] [address] [place] [address] Monocytes/Leukocytes Auto (Bld) [Pure # fraction] 0.9 E9/L Normal 0.2-1.0 [facility] Comment on above: Order Comment: Order Added by Andrew Expert. Performed By: #### 1 5359335, 1987085, 63242996, 7035553, 7884568 #### [facility] [address] [place] [address] Neutrophils/100 WBC (Bld) 47.7 % Normal 36.0-75.0 [facility] Comment on above: Order Comment: Order Added by Andrew Expert. Performed By: #### 1 0982781, 7764780, 44049721, 8560799, 3733023 #### [facility] [address] [place] [address] Neutrophils/Leukocytes Auto (Bld) [Pure # fraction] 3.5 E9/L Normal 2.0-7.5 [facility] Comment on above: Order Comment: Order Added by Discern Expert. Performed By: #### 1 8890698, 0759223, 76378571, 8772637, 4682085 #### [facility] [address] [place] [address] BMPon 02-24-2022 Creatinine [Mass/Vol] 0.9 mg/dL Normal 0.5-1.3 [facility] Comment on above: Performed By: #### 1 6882530, 1977755, 01929042, 5442319, 5595630 #### [facility] [address] [place] [address] Urea nitrogen [Mass/Vol] 20 mg/dL Normal 5-21 [facility] Comment on above: Performed By: #### 1 6019139, 2116735, 96664817, 0368947, 5577957 #### [facility] [address] [place] [address] Urea nitrogen/Creatinine [Mass ratio] 22 No Units High 10-20 [facility] Comment on above: Performed By: #### 1 9681571, 6296896, 50963016, 1366837, 5411840 #### [facility] [address] [place] [address] Anion gap [Moles/Vol] 13 mmol/L Normal 6-16 [facility] Comment on above: Performed By: #### 1 7703221, 2569268, 44948492, 6437075, 7944453 #### [facility] [address] [place] [address] Calcium [Mass/Vol] 9.9 mg/dL Normal 8.9-11.1 [facility] Comment on above: Performed By: #### 1 9108283, 6644904, 77495089, 8402992, 9843926 #### [facility] [address] [place] [address] Chloride [Moles/Vol] 104 mmol/L Normal 101-111 [facility] Comment on above: Performed By: #### 1 7662055, 9742547, 71474936, 7337994, 7513982 #### [facility] [address] [place] [address] CO2 [Moles/Vol] 24 mmol/L Normal 21-31 [facility] Comment on above: Performed By: #### 1 7474505, 8939030, 99100529, 8581223, 7379948 #### [facility] [address] [place] [address] Glucose [Mass/Vol] 136 mg/dL Normal 55-199 [facility] Comment on above: Result Comment: If t his glucose result represents a fasting glucose, interpretation should refer to the following reference range: 55-99 mg/dL Performed By: #### 1 2052671, 0581687, 81184406, 4910989, 9615166 #### [facility] [address] [place] [address] Potassium [Moles/Vol] 3.7 mmol/L Normal 3.5-5.3 [facility] Comment on above: Performed By: #### 1 7059369, 5041479, 42973931, 9122242, 8126251 #### [facility] [address] [place] [address] Sodium [Moles/Vol] 137 mmol/L Normal 135-145 [facility] Comment on above: Performed By: #### 1 8267301, 2451394, 73271720, 0776197, 7518859 #### [facility] [address] [place] [address] CBC w/ Auto Diffon 2 Erythrocyte distribution width (RBC) [Ratio] 15.3 % High 10.9-14.2 [facility] Comment on above: Performed By: #### 1 1095909, 9515378, 66743056, 4377850, 1191438 #### [facility] [address] [place] [address] Hematocrit (Bld) [Volume fraction] 43.0 % Normal 34.0-46.0 [facility] Comment on above: Performed By: #### 1 4199204, 6187972, 08971023, 4374265, 8226977 #### [facility] [address] [place] [address] Hemoglobin (Bld) [Mass/Vol] 14.4 g/dL Normal 12.0-16.0 [facility] Comment on above: Performed By: #### 1 9067944, 5430675, 99682428, 6280754, 3532530 #### [facility] [address] [place] [address] MCH (RBC) [Entitic mass] 31.0 pg Normal 27.0-34.0 [facility] Comment on above: Performed By: #### 1 5975131, 1903210, 99573260, 6055260, 4718088 #### [facility] [address] [place] [address] MCHC (RBC) [Mass/Vol] 33.6 g/dL Normal 31.4-36.0 [facility] Comment on above: Performed By: #### 1 5459776, 9170163, 46414189, 9153959, 4826083 #### [facility] [address] [place] [address] MCV (RBC) [Entitic vol] 92.2 fL Normal 80.0-100.0 [facility] Comment on above: Performed By: #### 1 5692624, 3281577, 42612457, 5839420, 4620384 #### [facility] [address] [place] [address] Platelet mean volume (Bld) [Entitic vol] 9.2 fL Normal 6.4-10.8 [facility] Comment on above: Performed By: #### 1 4557138, 3797940, 36093834, 2557843, 4249090 #### [facility] [address] [place] [address] Platelets (Bld) [#/Vol] 137.0 E9/L Low 150.0-500.0 [facility] Comment on above: Performed By: #### 1 5131916, 6026537, 37293639, 1108730, 9530230 #### [facility] [address] [place] [address] RBC (Bld) [#/Vol] 4.7 E12/L Normal 4.3-5.9 [facility] Comment on above: Performed By: #### 1 7669234, 5366251, 21123174, 1569542, 1196297 #### [facility] [address] [place] [address] WBC corrected for nucl RBC Auto (Bld) [#/Vol] 7.3 E9/L Normal 4.0-11.0 [facility] Comment on above: Performed By: #### 1 6703825, 4486893, 83748086, 3900958, 7379855 #### [facility] [address] [place] [address] CHEMISTRYOrdered By: SYSTEM SYSTEM on 02-24-2022 Anion [...] s Normal 25.1 - 36.5 second(s) [facility] Coag INR Coag (PPP) [Relative time] 1.1 {INR} Invalid Interpretation Code [facility] PT Coag (PPP) [Time] 13.4 s High 10.2 - 12.9 second(s) [facility] [place] CT Head or Brain w/o [...] MD Transcribed by: KHANH Technologist: EMELINA Normal [facility] Consent for Treatmenton 02-06 Consent for Treatment [id number] 0CD:127 [facility] Discharge Instructionson Discharge Instructions [id number] 0CD:127 Normal [facility] ED Clinical Summaryon 2021 ED Clinical Summary [place] [id number] ED Clinical Summary Person Information Name: ZORAIDA BARRIOS/NewTrevon Age: 86 Years : 1935 Sex: Female Language: Pakistani PCP: LACEY FREY MD Marital Status: Single [...] 02/24/2022 10:32:06 02/24/2022 10:32:06 02/24/2022 10:32:06 ADDRESS: [address] [place] [address] [id number] [facility] DOC NOTES: MEDICAL INFORMATION: Prescriptions Given: PATIENT EDUCATION INFORMATION: Instructions: Hypertension, Adult Follow up: With: Address: When: LACEY TK [address] [place], [place] [id number] [facility] (1) In 3 days 02/27/2022 Comments: Increase Losartan to 100 mg a day. Continue Metoprolol 50 mg a day. Make sure to take your blood pressure twice a day and follow-up with Dr. Frey tomorrow at 1 PM at her office. Return to the emergency room if your headache recurs, chest pain, dizziness or any new symptoms. DIAGNOSIS: 1:Accelerated hypertension Normal [facility] ED Note-Physicianon 02-25-20 ED Note-Physician Basic [...] reported headache. 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 In the emergency room [...] LACEY FREY In 3 days 02/27/[address] [place] [address]- Business (1) Additional Instructions: Increase Losartan [...] (02/24/22 0 (more content not included)... Normal [facility] Comment on above: Result Comment: Elec [...] ? Avoi (more content not included)... Normal [facility] ED Patient Summaryon 022 ED Patient Summary [address] [address] Patient Discharge Instructions Person Information Name: ZORAIDA BARRIOS Age: 86 Years Arrival Date: 02/24/2022 08:11:05 Discharge Diagnosis: 1:Accelerated hypertension Primary Care Physician: LACEY FREY MD Provider Information Primary Provider: Demond Green M.D. Advanced Ip/Mosaic Technician:None The exam and treatment you received in the Emergency Department were for an urgent problem and are not intended as complete care. It is important that you follow up with a doctor, nurse practitioner, or physician?s speech pathologist assistant for ongoing care. If your symptoms become worse or you do not improve as expected and you are unable to reach your usual health care provider, you should return to the Emergency Department. We are available 24 hours a day. ZORAIDA BARRIOS has been given the following list of patient education materials, prescriptions and follow-up instructions: Follow-up Instructions: With: Address: When: ALCEY FREY [address] [place] [address] [employer] In 3 days 02/27/2022 Comments: Increase Losartan [...] opioids can be used to help relieve [id number]-[id number] pain and are often prescribed following a [...] ? Visit (more content not included)... Normal [facility] HEMATOLOGYOrdered By: SYSTEM SYSTEM on 02-24-2022 Basophils/100 WBC (Bld) 4.4 % High 0.0 - 2.0 % [facility] HemeAutoSS Basophils/Leukocytes Auto (Bld) [Pure # fraction] 0.3 E9/L High 0.0 - 0.2 E9/L [facility] HemeAutoSS Eosinophils/100 WBC (Bld) 3.8 % Normal [...] 4.7 E12/L Normal 4.3 - 5.9 E12/L [facility] HemeAutoSS WBC corrected for nucl RBC Auto (Bld) [#/Vol] 7.3 E9/L Normal 4.0 - 11.0 E9/L [facility] HemeAutoSS PT & PTTon 02-24-2022 INR Coag (PPP) [Relative time] 1.1 {INR} Invalid Interpretation Code [facility] Comment on above: Result Comment: INR results are specifically intended to assess patients stabilized on long-term Anticoagulation therapy suggested INR?s ?Less Intensive Anticoagulation? 2.0 ? 3.0 Conventional Range 3.0 ? 4.5 Performed By: #### 1 [id number], 5511794, 96243723, 7951140, 4594784 #### [facility] [address] [place] [address] PT Coag (PPP) [Time] 13.4 second(s) High 10.2-12.9 [facility] Comment on above: Performed By: #### 1 2280010, 2670923, 47043198, 0121385, 7579849 #### [facility] [address] [place] [address] aPTT Coag (PPP) [Time] 25.4 second(s) Normal 25.1-36.5 [facility] Comment on above: Result Comment: Hepa rin therapeutic range (represented by Anti-Factor Xa activity of 0.2 - 0.4 U/mL) corresponds to PTT of 56.6 - 109.0 sec. Performed By: #### 1 6002002, 8592073, 76680582, 9963044, 5436174 #### [facility] [address] [place] [address] Troponin 0 Hr.on 02-24-2022 Troponin I.cardiac [Mass/Vol] 8.10 pg/mL Low 10.10-27.10 [facility] Comment on above: Result Comment: The 95% CI (Confidence Interval) PPV (Positive Predictive Value) for myocardial infarction in females is 38 pg/mL, in males 51 pg/mL. The results should be used in conjunction with clinical conditions of myocardial infarction. (Access High Sensitivity Troponin I Instructions For Use, Gwendolyn Orange, May 2018) Performed By: #### 1 [id number], 4950557, 72671297, 6740496, 4779991 #### [facility] [address] [place] [address] XR Chest Single Viewon 02-24 XR Chest [...] am EDT, Trevon Tyler M.D., DISAGREE Normal [facility] Vital Signs Date Time Vital Sign Value Performing Clinician Facility 05-12-2025 13:31-0400 Diastolic blood pressure 80 mm[Hg] Lacey Frey MD Work Phone: [facility] 05-12-2025 13:31-0400 Systolic blood pressure 180 mm[Hg] Lacey Frey MD Work Phone: [facility] 05-12-2025 13:[phone] Body height 157.48 cm Lacey Frey MD Work Phone: [facility] 05-12-2025 13:[phone] Body mass index (BMI) [Ratio] 24 kg/m2 Lacey Frey MD Work Phone: [facility] 05-12-2025 13:21-0400 Body weight 59.56 kg Lacey Frey MD Work Phone: [facility] 05-12-2025 13:21-0400 Heart rate 57 /min Lacey Frey MD Work Phone: [facility] 05-12-2025 13:21-0400 Respiratory rate 12 /min Lacey Frey MD Work Phone: [facility] 05-12-2025 13:21-0400 SaO2% (BldA) [Mass fraction] 97 % Lacey Frey MD Work Phone: [facility] 04-14-2025 11:[phone] Body height 157.48 cm Lacey Frey MD Work Phone: [facility] 04-14-2025 11:21-0400 Body mass index (BMI) [Ratio] 24.1 kg/m2 Lacey Frey MD Work Phone: [facility] 04-14-2025 11:21-0400 Body weight 59.87 kg Lacey Frey MD Work Phone: [facility] 04-14-2025 11:21-0400 Diastolic blood pressure 86 mm[Hg] Lacey Frey MD Work Phone: [facility] 04-14-2025 11:21-0400 Heart rate 57 /min Lacey Frey MD Work Phone: [facility] 04-14-2025 11:21-0400 SaO2% (BldA) [Mass fraction] 97 % Lacey Frey MD Work Phone: [facility] 04-14-2025 11:21-0400 Systolic blood pressure 200 mm[Hg] Lacey Frey MD Work Phone: [facility] [phone]:[phone] Body height 157.48 cm [facility] 02-04-2025 14:26-0400 Body mass index (BMI) [Ratio] 23.9 kg/m2 [facility] 02-04-2025 14:26-0400 Body weight 59.42 kg [facility] 02-04-2025 14:26-0400 Diastolic blood pressure 74 mm[Hg] [facility] 02-04-2025 14:26-0400 Heart rate 58 /min [facility] 02-04-2025 14:26-0400 Systolic blood pressure 177 mm[Hg] [facility] 12-26-2024 13:02-0400 Body height 157.48 cm [facility] 12-26-2024 13:02-0400 Body mass index (BMI) [Ratio] 24.7 kg/m2 [facility] 12-26-2024 13:02-0400 Body weight 61.46 kg [facility] 12-26-2024 13:02-0400 Diastolic blood pressure 74 mm[Hg] [facility] 12-26-2024 13:02-0400 Heart rate 69 /min [facility] 12-26-2024 13:02-0400 Systolic blood pressure 169 mm[Hg] [facility] 11-18-2024 13:05-0500 Body height 157.48 cm [facility] 11-18-2024 13:05-0500 Body mass index (BMI) [Ratio] 24 kg/m2 [facility] 11-18-2024 13:05-0500 Body weight 59.56 kg [facility] 11-18-2024 13:05-0500 Diastolic blood pressure 83 mm[Hg] [facility] 11-18-2024 13:05-0500 Heart rate 65 /min [facility] 11-18-2024 13:05-0500 Systolic blood pressure 176 mm[Hg] [facility] 07-09-2024 14:24-0400 Body height 157.48 cm [facility] 07-09-2024 14:24-0400 Body mass index (BMI) [Ratio] 24.3 kg/m2 [facility] 07-09-2024 14:24-0400 Body weight 60.46 kg [facility] 07-09-2024 14:24-0400 Diastolic blood pressure 98 mm[Hg] [facility] 07-09-2024 14:24-0400 Heart rate 57 /min [facility] 07-09-2024 14:24-0400 Systolic blood pressure 212 mm[Hg] [facility] 05-07-2024 13:44-0400 Body height 157.48 cm [facility] 05-07-2024 13:44-0400 Body mass index (BMI) [Ratio] 23.8 kg/m2 [facility] 05-07-2024 13:44-0400 Body weight 58.96 kg [facility] 05-07-2024 13:44-0400 Diastolic blood pressure 69 mm[Hg] [facility] 05-07-2024 13:44-0400 Heart rate 61 /min [facility] 05-07-2024 13:44-0400 Systolic blood pressure 189 mm[Hg] [facility] 01-08-2024 11:43-0400 Body height 157.48 cm [facility] 01-08-2024 11:43-0400 Body mass index (BMI) [Ratio] 22.8 kg/m2 [facility] 01-08-2024 11:43-0400 Body weight 56.84 kg [facility] 01-08-2024 11:43-0400 Diastolic blood pressure 72 mm[Hg] [facility] 01-08-2024 11:43-0400 Heart rate 61 /min [facility] 01-08-2024 11:43-0400 Systolic blood pressure 179 mm[Hg] [facility] 06-08-2023 14:30-0400 Body height 157.48 cm Lacey Frey Other [facility] Other 06-08-2023 14:30-0400 Body mass index (BMI) [Ratio] 23.13 kg/m2 Lacey Frey Other [facility] Other 06-08-2023 14:30-0400 Body weight 57.38 kg Lacey Frey Other [facility] Other 06-08-2023 14:30-0400 Diastolic blood pressure 77 mm[Hg] Lacey Tk Other [facility] Other 06-08-2023 14:30-0400 Respiratory rate 16 /min Lacey Tk Other [facility] Other 06-08-2023 14:30-0400 Systolic blood pressure 187 mm[Hg] Lacey Tk Other [facility] Other 12-20-2022 15:20-0400 Body height 157.48 cm [employer]ox [employer] Other [facility] Other 12-20-2022 15:20-0400 Body mass index (BMI) [Ratio] 23.08 kg/m2 [employer] Other [facility] Other 12-20-2022 15:20-0400 Body temperature 97 [degF] [employer] Other [facility] Other 12-20-2022 15:20-0400 Body weight 57.24 kg Azaicha Tizras Other [facility] Other 12-20-2022 15:20-0400 Diastolic blood pressure 85 mm[Hg] Aziz Tizras Other [facility] Other 12-20-2022 15:20-0400 Respiratory rate 16 /min Azaicha Tizras Other [facility] Other 12-20-2022 15:20-0400 SaO2% (BldA) [Mass fraction] 100 % Aziz Tizras Other [facility] Other 12-20-2022 15:20-0400 Systolic blood pressure 170 mm[Hg] Rox Watson Other [employer] Other 02-24-2022 10:12-0400 Diastolic blood pressure 80 mm[Hg] [facility] 02-24-2022 10:12-0400 Heart rate 68 /min [facility] 02-24-2022 10:12-0400 Respiratory rate 15 /min [facility] 02-24-2022 10:12-0400 SaO2% (BldA) [Mass fraction] 98 % [facility] 02-24-2022 10:12-0400 Systolic blood pressure 190 mm[Hg] [facility] 02-24-2022 09:24-0400 Diastolic blood pressure 88 mm[Hg] [facility] 02-24-2022 09:24-0400 Heart rate 66 /min [facility] 02-24-2022 09:24-0400 Respiratory rate 16 /min [facility] 02-24-2022 09:24-0400 SaO2% (BldA) [Mass fraction] 99 % [facility] 02-24-2022 09:24-0400 Systolic blood pressure 190 mm[Hg] [facility] 02-24-2022 08:50-0400 Diastolic blood pressure 100 mm[Hg] [facility] 02-24-2022 08:50-0400 Systolic blood pressure 220 mm[Hg] [facility] 02-24-2022 08:14-0400 Body temperature 98.24 [degF] [facility] 02-24-2022 08:14-0400 Heart rate 74 /min [facility] 02-24-2022 08:14-0400 Respiratory rate 18 /min [facility] 02-24-2022 08:14-0400 SaO2% (BldA) [Mass fraction] 99 % [facility] Encounters Encounter Date Encounter Type Care Provider Facility Start: 05-12-2025 End: 05-12-2025 ambulatory Lacey Frey MD Work Phone: [facility] Work Phone: Start: 05-12-2025 End: 05-12-2025 Patient encounter procedure Lacey Frey MD -[facility] Work Phone: Start: 04-14-2025 End: 04-14-2025 ambulatory Lacey Frey MD Work Phone: [facility] Work Phone: Start: 04-14-2025 End: 04-14-2025 Patient encounter procedure Lacey Frey MD -[facility] Work Phone: Start: 04-07-2025 Non-patient / Non-visit Valencia Wilkinson CMA -[facility] Work Phone: Start: 04-06-2025 Non-patient / Non-visit Daphne LACY [facility] Work Phone: Start: 02-12-2025 End: 02-12-2025 ambulatory [facility] Start: 02-04-2025 End: 02-04-2025 ambulatory [facility] Work Phone: Start: 02-04-2025 End: 02-04-2025 Patient encounter procedure Replaced By [facility] Work Phone: Start: 02-03-2025 End: 02-04-2025 Pre-admission assessment eMlba Gregorio [facility] Start: 12-26-2024 End: 12-26-2024 ambulatory [facility] Work Phone: Start: 12-26-2024 End: 12-26-2024 Patient encounter procedure Replaced By [facility] Work Phone: Start: 12-24-2024 Non-patient / Non-visit Replaced By [facility] Work Phone: Start: 12-23-2024 Non-patient / Non-visit Replaced By [facility] Work Phone: Start: 11-28-2024 End: 11-28-2024 ambulatory [facility] Start: 11-18-2024 End: 11-18-2024 ambulatory [facility] Work Phone: Start: 11-18-2024 End: 11-18-2024 Patient encounter procedure Replaced By [facility] Work Phone: Start: 07-09-2024 End: 07-09-2024 ambulatory [facility] Work Phone: Start: 07-09-2024 End: 07-09-2024 Patient encounter procedure Replaced By [facility] Work Phone: Start: 06-28-2024 End: 06-28-2024 ambulatory [facility] Start: 05-15-2024 Non-patient / Non-visit Replaced By [facility] Work Phone: Start: 05-11-2024 Non-patient / Non-visit Replaced By [facility] Work Phone: Start: 05-10-2024 Non-patient / Non-visit Replaced By [facility] Work Phone: Start: 05-07-2024 End: 05-07-2024 ambulatory [facility] Work Phone: Start: 05-07-2024 End: 05-07-2024 Patient encounter procedure Replaced By [facility] Work Phone: Start: 05-01-2024 End: 05-01-2024 ambulatory AALIYAH [facility] Start: 04-25-2024 Non-patient / Non-visit Replaced By [facility] Work Phone: Start: 03-28-2024 End: 03-28-2024 ambulatory AALIYAH VIRGILIO [facility] Start: 01-08-2024 End: 01-08-2024 ambulatory [facility] Work Phone: Start: 01-08-2024 End: 01-08-2024 Patient encounter procedure Replaced By [facility] Work Phone: Start: 12-28-2023 Non-patient / Non-visit Replaced By [facility] Work Phone: Start: 06-08-2023 End: 06-08-2023 ambulatory Lacey Frey Other [facility] Other Start: 06-08-2023 Office outpatient visit 15 minutes Lacey Frey [facility] Start: 05-25-2023 End: 05-25-2023 ambulatory Lacey Frey Other [facility] Other Start: 05-25-2023 Telephone encounter Lacey Tk [facility] Start: 04-25-2023 End: 04-25-2023 ambulatory Lacey Frey Other [facility] Other Start: 04-25-2023 Telephone encounter Lacey Tk [facility] Start: 03-23-2023 End: 03-23-2023 ambulatory Lacey Tk Other [facility] Other Start: 03-23-2023 Telephone encounter Lacey Tk [facility] Start: 02-20-2023 End: 02-20-2023 ambulatory Lacey Frey Other [facility] Other Start: 02-20-2023 Telephone encounter Lacey Tk [facility] Start: 01-17-2023 End: 01-17-2023 ambulatory Lcaey Frey Other [facility] Other Start: 01-17-2023 Telephone encounter Lacey Frey [facility] Start: 12-20-2022 End: 12-20-2022 ambulatory Rox Watson Other [facility] Other Start: 12-20-2022 [facility] visit new patient Rox Watson [facility] Start: 12-19-2022 End: 12-19-2022 ambulatory Lacey Frey Other [facility] Other Start: 12-19-2022 Telephone encounter Lacey Tk [facility] Start: 12-10-2022 End: 12-11-2022 ambulatory AALYIAH POOLE Facility:[facility] Start: 11-15-2022 End: 11-15-2022 ambulatory [...] Emergency department patient visit Demond Collins ailyn [facility] Plan of Treatment Date Care Activity Detail Author Start: 12-26-2024 Patient referral [facility] Work Phone: Patient referral [facility] Work Phone: US.doppler Carotid a rteries - bilateral [facility] Payers Date Payer Category Payer Unknown [id number] 1959 Self-pay 1959 Unknown [id number] 1935 Unknown [id number] 2.16.84 0.1.404196.3.579.2.593 1935 Unknown [id number] 2.16.84 0.1.061425.3.579.2.593 1935 Unknown [id number] 2.16.84 0.1.041365.3.579.2.593 1935 Unknown [id number] 2.16.84 0.1.300417.3.579.2.593 1935 Unknown [id number] 2.16.84 0.1.521273.3.579.2.593 1935 Unknown [id number] 2.16.84 0.1.740157.3.579.2.593 1935 Unknown [id number] 2.16.84 0.1.322368.3.579.2.593 1935 Unknown [id number] 2.16.84 0.1.134105.3.579.2.593 1935 Unknown [id number] 2.16.84 0.1.239010.3.579.2.593 1935 Unknown [id number] 2.16.84 0.1.150457.3.579.2.593 1935 Unknown [id number] 2.16.84 0.1.625836.3.579.2.593 1935 Unknown [id number] 2.16.84 0.1.817255.3.579.2.593 1935 Unknown [id number] 2.16.84 0.1.293267.3.579.2.593 1935 Unknown [id number] 2.16.84 0.1.635387.3.579.2.593 1935 Unknown [id number] 2.16.84 0.1.548047.3.579.2.593 1935 Unknown [id number] 2.16.84 0.1.202566.3.579.2.593 1935 Unknown [id number] 2.16.84 0.1.765350.3.579.2.593 1935 Unknown [id number] 2.16.84 0.1.425985.3.579.2.593 1935 Unknown [id number] 2.16.84 0.1.796126.3.579.2.593 Medicare [id number] 2. 16.840.1.357800.19 Unknown [id number] Social History Date Type Detail Facility Tobacco smoking status Unknown i f ever smoked [facility] Sex Assigned At Female [facility] Start: 1935 Sex Assigned At Female F [facility] Tobacco smoking stat [facility] Unknown if ever smoked [facility] Work Phone: Start: 02-24-2022 End: 11-18-2024 Sex Female (finding) [facility] Tobacco smoking status Higinio resendiz [facility] Start: 05-12-2025 Tobacco smoking stat [facility] Smokes tobacco daily (finding) [facility] Clinical Notes 02-24-2022 to 04-14-2025 Note Date & Type Note Facility 04-14-2025 Evaluation note Diagnosis Onset Date Resolution Resistant hypertension acute Ju ly 2024 11:18am [facility] Work Phone: 1(267) 444-607305-07-2025 Note[facility] Cardiology - [facility] Subjective Delesintia Barrios is a [...] presented to the emergency room at the [facility] with elevated blood pressure reading. Blood [...] Take 1 ta (more content not included)... [facility]05-07-2025 NotePatient here for a 3 month follow [...] or heart burn. Review of Systems Constitutional: Negative.[facility]04-29-2025 Evaluation note* Diagnosis Onset Date Resolution Status Admit Date Objective pulsatile tinnitus of both ears acute February 04, 2025 2:23pm Resistant hypertension acute Ap ril 2024 2:23pm [facility] Work Phone: 1(957) 262-760302-20-2025 [facility] Subjective Zoraida Barrios is a [...] presented to the emergency room at the [facility] with elevated blood pressure reading. Blood [...] normal, troponin high-sensitivity 8.8, (more content not included)...[facility]02-10-2025 Evaluation note* Diagnosis Onset Date Resolution Status Admit Date Resistant hypertension acute [facility] 2024 1:01pm Objective pulsatile tinnitus of both ears acute December 26, 2024 12:58pm Resistant hypertension acute [facility] 2024 12:58pm [facility] Work Phone: 1(180) 248-384302-10-2025 Evaluation note* Diagnosis Onset Date Resolution Status Admit Date Resistant hypertension acute [facility] 2024 1:01pm Chronic kidney disease, stag e 3b acute December 26, 2024 12:58pm Objective pulsatile tinnitus of both ears acute December 26, 2024 12:58pm Resistant hypertension acute [facility] 2024 12:58pm [facility] Work Phone: 1(515) 164-352609-20-2024 NotePer assessment heart rates in the 50s No concerning symptoms at this time We will continue to monitor Discussed with patient to call office for any lightheadedness, dizziness, passing out she voiced [facility]Un[facility] 06-28-2024 NoteHypertension is stable for her blood pressure log is very well- controlled in office is always elevated most likely related to whitecoat syndrome Continue medicines as prescribed including carvedilol, clonidine, hydralazine, losartan, spironolactone Renal function stableUnG[facility] Hospital09-20-2024 Notestable [facility]09-20-2024 NoteUTP CARDIOLOGY PROGRESS NOTE HPI: Zoraida Barrios [...] passing out she voiced understanding RTC 6 monthsUnGlen[facility]09-20-2024 NotePt is here for three month follow up. Pt denies sob, chest pain, palpatations. Pt says one of her medications makes her dizzy but she does not know which one. Review of Systems Constitutional: Positive for diaphoresis (1 episode). Neurological: Positive for excessive daytime sleepiness (intermittent). All other systems reviewed and are negative.[facility] 05-01-2024 NoteHypertension is quite variable dependent upon [...] Vit D, Thyroid function and Vitamin B levels.[facility]07-24-2024 NoteCurrently stable [facility]07-24-2024 NotePt reports having noted heart rate 49-50's, and denied any significant symptoms associated. Will continue to monitor and D/W pt to call office for lightheadedness, dizziness, near syncope or syncope and she voiced understandingUnGlenbeigh Hospital07-24-2024 NoteUTP CARDIOLOGY PROGRESS NOTE HPI: Zoraida Barrios is a 88 y.o. female here for hospital F/U HPI 88 yo female presents today for hospital F/U after recent evaluation for bradycardia Patient here for follow up [facility] ED. Says she went shopping with [...] negative ED note- Patient: ZORAIDA BARRIOS MR#: [id number] : 1935 Acct:[id number] Age/Sex: 88 / F ADM Date: 04/25/24 [...] place, and time. P (more content not included)...[facility]07-24-2024 NotePatient here for follow up [facility] ED. Says she went shopping with [...] (intermittent). All other systems reviewed and are negative.[facility] 03-28-2024 NoteStable Continue aldactone, fluid restriction and low sodium diet Continue regular exercise and activityUnGlenbe[facility] 03-28-2024 NoteWell controlled with aldactone currently no edemaUnGlenbeigh Hospital06-20-2024 NoteHypertension is unchanged. Dietary sodium restriction. Continue current medications. Blood pressure will be reassessed in 3 months.[facility]06-20-2024 NotePatient here for 2 mo follow up hypertension and diastolic dysfunction. She had routine labs in January 2024. She denies chest pain, SOB, palpitations, and syncope. Sometimes gets lightheaded upon standing up. Review of Systems Neurological: Positive for excessive daytime sleepiness and light-headedness. All other systems reviewed and are negative.[facility] 03-28-2024 NoteUTP CARDIOLOGY PROGRESS NOTE HPI: Zoraida [...] - with her evening/bedtime meds, she voiced understandingChildren's Hospital for Rehabilitation08-31-2023 Evaluation note* Encounter Date Diagnosis Assessment Notes Treatment Notes Treatment Clinical Notes May, Other insomnia (ICD-10 - G47.09) Pt states the ativan does help her insomnia and bp. Denies over-sedation symptoms. May, Resistant hypertension (ICD-10 - I10) Established w [facility]iology. Recommend taking meds daily and keeping record and discussing bps w her provider there. [facility] Other 03-14-2023 Evaluation note* Encounter Date Diagnosis [...] pressure monitor reveals significantly better blood pressure [facility] Other [id number] Evaluation + Plan noteExtracted from: Title:ED Note Author:Noram Palacios, Demond Estes te:02/24/22 1. Accelerated hypertension [...] Troponin 9 Hr. XR Chest Single View [facility]05-19-2022 Hospital Discharge instructions Patient Education 02/24/2022 [...] care provider. This is important. Medicines Take [id number]-[id number] and prescription medicines only as told by [...] 09/25/2006 Document Revised: 06/05/2019 Document Reviewed: 06/05/2019 [place] Patient Education [employer] Follow Up Care 02/24/2022 08:13:52 With:LACEY FREY Address: [address] [place] [phone]- Business (1) When:02/27/2022 10:23:00 Comments:Increase Losartan to 100 mg a day. Continue Metoprolol 50 mg a day. Make sure to take your blood pressure twice a day and follow-up with Dr. Frey tomorrow at 1 PM at her office. Return to the emergency room if your headache recurs, chest pain, dizziness or any new symptoms. [facility] noteNo InformationNortLifecare [facility] [place] Other Evaluation noteNo assessment information available [facility] Work Phone: Evaluation note* Diagnosis Onset Date Resolution Status Chronic kidney disease, stage 3b acute Resistant hypertension acute Weight gain, abnormal acute [facility] Work Phone: History general Narrative - Reported* Type Description Date Medical History HYPERTENSION Medical History RENAL IMPAIRMENT Medical History TOBACCO DEPENDENCE SYNDROME Surgical History TUBAL LIGATION Surgical History CHOLECYSTECTOMY Hospitalization History SEE ABOVE [facility] [place] Other Hospital course Narrative No data available for this section [facility] Dis[facility] instructionsAmbulatory Orders* Referral to Vascular Surgery Time Frame: 12/26/24, Location: None Selected [facility] Work Phone: Hospital Discharge instructions No data available for this section [facility] Progress note No data available for this section [facility] Reason for referral (narrative)No reason for referral information availableOhiohealth Shelby Hospital Work Phone: Summary Purpose Family History [...] content) DATE CREATED AUTHOR 03/05/2022 [facility] DATE CREATED AUTHOR AUTHOR'S ORGANIZ ATION 12/13/2022 [facility] DATE CREATED AUTHOR AUTHOR'S ORGANIZ ATION 02/15/2025 [facility] REASON FOR VISIT (unrecogniz ed section and [...] Care Provider Active Start: December 23, 2024 Vaelncia Wilkinson CMA Attending Provider Active Start: December [...] BE BASED ON THE PRIMARY CLINICAL RECORDS. [facility] [employer] provides no warranty or guarantee of the accuracy or completeness of information in this document.
[2025-07-13 18:51] VITALS: BP 178/74; PULSE 61; TEMP 36.6; O2SAT 96; BMI 23.8
--- NOTE | 2025-07-13 19:37 | ECG_ITS ---
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 Measurements Intervals [place] Rate: 52 P: 61 ND: 192 QRS: 67 QRSD: 94 T: 54 QT: 450 QTc: 431 Interpretive Statements 1100 Sinus rhythm 1102 Sinus arrhythmia 4068 Nonspecific Twave abnormality 9130 borderline ECG Compared to ECG 07/13/2025 08:56:00 No significant changes Electronically Signed On 07-13-2025 22:51:41 EDT by EDVIN GRUBBS M.D.
--- NOTE | 2025-07-13 19:38 | ED.GENADUL1 ---
HPI HPI - General Adult General Chief complaint: Recheck/Abnormal Lab/Rx Stated complaint: ELEVATED BP Time Seen by Provider: 07/13/25 18:57 Source: patient and family Mode of arrival: walk-in Limitations: no limitations History of Present Illness HPI narrative: 89-year-old female presents for elevated blood pressure. She was seen here earlier today and her blood pressure was improved. She checked it at home and it was back up so she came in tonight. Other than her head feeling full she does not have any symptoms. No chest pain or palpitations or shortness of breath. Related Data Home Medications ?Medication ?Instructions ?Recorded ?Confirmed carvedilol 25 mg tablet 25 mg PO BID 12/28/23 07/13/25 lorazepam 0.5 mg tablet 0.5 mg PO Q12H PRN anxiety 12/28/23 07/13/25 losartan 100 mg tablet 100 mg PO DAILY 12/28/23 07/13/25 hydralazine 100 mg tablet 100 mg PO Q8H 07/07/25 07/13/25 losartan 50 mg tablet 50 mg 07/07/25 Previous Rx's ?Medication ?Instructions ?Recorded clonidine HCl 0.2 mg tablet 0.2 mg PO BID #10 tabs 12/24/24 amoxicillin 875 mg-potassium 1 tab PO Q12H 7 days #14 tabs 07/07/25 clavulanate 125 mg tablet doxycycline hyclate 100 mg capsule 100 mg PO BID 7 days #14 caps 07/07/25 Allergies Allergy/AdvReac Type Severity Reaction Status Date / Time Sulfa (Sulfonamide AdvReac Mild rash Verified 07/13/25 08:30 Antibiotics) Review of Systems ROS Narrative A ten point review of systems is negative except as noted above. PFSH PFSH Social History Little interest or pleasure in doing things: not at all Feeling down, depressed, or hopeless: not at all Exam Narrative Exam Narrative: Nurses note and vital signs reviewed and patient is not hypoxic. General:The patient appears well and in no apparent distress.Patient is resting comfortably on cart. Skin:Warm, dry, no pallor noted.There is no rash noted. Head:Normocephalic, atraumatic Eye: Normal conjunctiva, no drainage Ears, Nose, Mouth, and Throat: oral mucosa is moist. Nares patent. Cardiovascular:Regular Rate and Rhythm Respiratory:Patient is in no distress, no accessory muscle use, lungs are clear to auscultation, no wheezing, rales or rhonchi Back:non-tender GI: Soft and nontender Musculoskeletal: The patient has no evidence of calf tenderness, no pitting edema, symmetrical pulses noted bilaterally Neurological:A&O, normal speech Psychiatric:Cooperative Constitutional Vital Signs, click to edit/add: Last Vital Signs Temp 98 F 07/13/25 18:51 Pulse 61 07/13/25 18:51 Resp 16 07/13/25 18:51 BP 154/78 H 07/13/25 20:31 Pulse Ox 96 07/13/25 18:51 O2 Del Method Room Air 07/13/25 18:51 Course Vital Signs Vital signs: Vital Signs Temperature 98 F 07/13/25 18:51 Pulse Rate 61 07/13/25 18:51 Respiratory Rate 16 07/13/25 18:51 Blood Pressure 178/74 H 07/13/25 18:51 Pulse Oximetry 96 07/13/25 18:51 Oxygen Delivery Method Room Air 07/13/25 18:51 Temperature 98 F 07/13/25 18:51 Pulse Rate 61 07/13/25 18:51 Respiratory Rate 16 07/13/25 18:51 Blood Pressure 154/78 H 07/13/25 20:31 Pulse Oximetry 96 07/13/25 18:51 Oxygen Delivery Method Room Air 07/13/25 18:51 Medical Decision Making MDM Narrative Medical decision making narrative: Her workup is negative and her blood pressure improved greatly without any intervention. I suspect that anxiety causes a big role in this patient's frequent use of the emergency department for elevated blood pressure readings. She has an appointment with her doctor tomorrow and she will keep that appointment. Treatment diagnosis and follow-up were discussed with the patient. Differential Diagnosis Differential Diagnosis: Hypertension, anxiety Lab Data Lab results reviewed: Yes I reviewed the patient's lab results Labs: Lab Results 07/13/25 Range/Units 19:50 WBC 6.7 (4.0-11.0) 10^3/uL RBC 4.74 (4.20-5.40) 10^6/uL Hgb 13.9 (12.0-16.0) g/dL Hct 42.6 (36.0-48.0) % MCV 89.9 (81.0-99.0) fL MCH 29.3 (26.7-34.0) pg MCHC 32.6 (29.9-35.2) g/dL RDW 14.6 (11.0-15.0) % Plt Count 118 L (150-450) 10^3/uL MPV 11.2 (9.5-13.5) fL Neut % (Auto) 45.7 (43.0-75.0) % Lymph % (Auto) 33.4 (20.5-60.0) % [place] % (Auto) 10.3 (1.7-12.0) % Eos % (Auto) 6.6 (0.9-7.0) % Baso % (Auto) 2.8 H (0.2-2.0) % Neut # (Auto) 3.1 (1.4-6.5) 10^3/uL Lymph # (Auto) 2.2 (1.2-3.8) 10^3/uL [place] # (Auto) 0.7 (0.3-0.8) 10^3/uL Eos # (Auto) 0.4 (0.0-0.7) 10^3/uL Baso # (Auto) 0.2 H (0.0-0.1) 10^3/uL Abs Immat Gran (auto) 0.08 H (0.00-0.03) 10^3/uL Imm/Tot Granulo (auto) 1.2 H (0.0-0.5) % Sodium 141 (136-145) mmol/L Potassium 3.8 (3.5-5.1) mmol/L Chloride 105 (98-107) mmol/L Carbon Dioxide 28.0 (21.0-32.0) mmol/L Anion Gap 11.8 BUN 22.0 H (7.0-18.0) mg/dL Creatinine 0.98 (0.55-1.02) mg/dL Est GFR ( Amer) >60 (>=60 mL/min/1.73m^2) Est GFR (Non-Af Amer) 53 L (>=60 mL/min/1.73m^2) BUN/Creatinine Ratio 22.4 Glucose 149 H (74-106) mg/dL Calcium 9.9 (8.5-10.1) mg/dL Troponin I High Sens 8.5 (4.0-51.3) pg/mL ECG Data Attestation: I personally reviewed and interpreted this ECG as follows: (EKG on my interpretation shows sinus rhythm with rate of 52 and no acute change) Discharge Plan Discharge Chief Complaint: Recheck/Abnormal Lab/Rx Clinical Impression: Hypertension Patient Disposition: Home, Self-Care Time of Disposition Decision: 21:02 Condition: Good Mode of Transportation: Private Vehicle Prescriptions / Home Meds: No Action clonidine HCl 0.2 mg tablet 0.2 mg PO BID Qty: 10 0RF losartan 50 mg tablet 50 mg hydralazine 100 mg tablet 100 mg PO Q8H doxycycline hyclate 100 mg capsule 100 mg PO BID 7 Days Qty: 14 0RF amoxicillin-pot clavulanate 875-125 mg tablet 1 tab PO Q12H 7 Days Qty: 14 0RF carvedilol 25 mg tablet 25 mg PO BID lorazepam 0.5 mg tablet 0.5 mg PO Q12H PRN (Reason: anxiety) losartan 100 mg tablet 100 mg PO DAILY Print Language: Citizen Of [place] Instructions: Hypertension (ED) Referrals: Amelia Trinh MD [Primary Care Provider, Family Practice] - 1 week
[2025-07-13 20:22] LABS: Hematocrit 42.6 % (36.0-48.0); Hemoglobin 13.9 g/dL (12.0-16.0); Immature Granulocytes Abs Auto 0.08 10^3/uL (0.00-0.03); Immature Granulocytes Pct Auto 1.2 % (0.0-0.5); Lymphocytes Absolute Auto 2.2 10^3/uL (1.2-3.8); Mean Corpuscular HGB Conc 32.6 g/dL (29.9-35.2); Mean Corpuscular Hemoglobin 29.3 pg (26.7-34.0); Mean Corpuscular Volume 89.9 fL (81.0-99.0); Platelet Count 118 10^3/uL (150-450); Red Blood Count 4.74 10^6/uL (4.20-5.40); White Blood Count 6.7 10^3/uL (4.0-11.0)
[2025-07-13 20:31] VITALS: BP 154/78
[2025-07-13 20:40] LABS: Anion Gap 11.8; Blood Urea Nitrogen 22.0 mg/dL (7.0-18.0); Calcium 9.9 mg/dL (8.5-10.1); Carbon Dioxide 28.0 mmol/L (21.0-32.0); Chloride 105 mmol/L (98-107); Estimated GFR (African America >60 (>=60 mL/min/1.73m^2); Estimated GFR (Non-African Ame 53 (>=60 mL/min/1.73m^2); Glucose 149 mg/dL (74-106); Potassium 3.8 mmol/L (3.5-5.1); Sodium 141 mmol/L (136-145)
== END 2025-07-13 21:23 | disposition home or self-care (01) ==
PROVIDERS: Emergency Provider Emergency Medicine; PCP Family Medicine
DX: I10 Essential (primary) hypertension (principal); Z87.01 Personal history of pneumonia (recurrent)
CPT/HCPCS: 36415; 80048; 80053; 84484; 85025; 93005; 99284

== ENCOUNTER 2025-07-18 14:07 | Outpatient (OUT) | payer MEDICARE, SELFPAY ==
--- NOTE | 2025-07-18 14:12 | XR_ITS ---
The [place] [id number] Patient Name: ZORAIDA GAYTAN MRN: [id number] date: 1935 Sex: F Assigned Patient Location: [facility] Current Patient Location: [facility] Accession/Order Number: [id number] Exam Date: 07/18/2025 14:17 Report Date: 07/18/2025 14:48 At the request of: LACEY FREY MD Procedure: XR chest 2V Chest 2 views CLINICAL HISTORY: Pneumonia COMPARISON: Chest 07/07/2025 FINDINGS: Heart normal in size. Left upper lobe airspace disease remains. No new consolidation pneumothorax pleural effusion or free air. XR/XR chest 2V IMPRESSION: NO SIGNIFICANT CHANGE IN CHEST FINDINGS. FURTHER EVALUATION WITH CT IS SUGGESTED. Impression dictated by: Doris Lemos Jr.ODhaval 07/18/2025 2:48 PM Dictation Location: [place] [address] Electronically authenticated by: [id number] Y Date: 07/18/2025 14:48
--- OUTSIDE RECORDS SUMMARY | 2025-07-18 14:16 | XMS_ITS | CCD ---
Author Organization [facility] Care Team Providers Care Rework Machine Operator Name Role Phone LACEY FREY Primary Care [...] Unavailable ZAVALETA ., MR ISATU Consulting Unavailable REINJERSON, DR GEORGIE Bartholomew Attending Unavailabl e REINECK, [...] ASTRID Consulting Unavailable ALGHOTHANI, MOHAMAD Admitting Unavailable ALGHOCARLEYANI, MOHNATD Attending Unavailable TK, DR LACEY Ashton Primary Care Unavailable GALLUP, DR BERTHA Logan Consulting Unavailable ALGHOTHANI, MOHAMAD Consulting Unavailable Lacey Frey Unavailable Adolfo Watsonaicha Unavailable MISSY BAUER Attending Unavailable VIRGILIO, AALIYAH Attending Unavailable VIRGILIO, AALIYAH Attending Unavailable VIRGILIO, AALIYAH Attending Unavailable EDVIN GRUBBS Attending Unavailable Lacey Frey MD Primary Care Provider [phone] Lacey Frey MD Attending Provider Daphne Emanuel PA-C Attending Provider Unavailable Valencia Wilkinson CMA Attending Provider UnavailLacey Rodriguez MD Primary Care Provider [phone] Lacey Frey MD Attending Provider [phone] Lacey Frey MD Primary Care Provider Lacey Frey MD Attending Provider Dennys Aguilar DO Attending Provider Valencia Wilkinson CMA Attending Provider Unavaila James Granados DO Attending Provider Maria Isabel Hurtado MD Attending Provider Allergies Allergy Classification Reported Allergen(s) Allergy Type Date of Onset Reaction(s) Facility (2 sources) Sulfonamides (Antibiotic); Translations: [sulfa drugs] Drug allergy Unknown [facility] (2 sources) Sulfonamides (Antibiotic) Drug allergy (disorder) 4 [facility] Rep[facility] (10 sources) Substance with sulfonamide structure and antibacterial mechanism of action (substance) Drug allergy Unknown [facility] Other (1 source) Spironolactone; Translations: [SPIRONOLACTONE] Drug Allergy 5 [facility] Repository (1 source) Sulfonamides (Antibiotic); Translations: [SULFA (SULFONAMIDE ANTIBIOTICS)] Propensity to adverse reactions to drug (disorder) 2 [facility] Rep[facility] Medications Current Medications Medication Drug Class(es) Dates Sig (Normalized) Sig (Original) amLODIPine 5 mg oral tablet (10 sources) Dihydropyridine Calcium Channel Atif take 1 tablet by mouth every twenty-four hours carvedilol 25 mg oral tablet (20 sources) alpha-Adrenergic Atif, beta-Adrenergic Atif Start: 04-14-2025 [...] sources) Central alpha-2 Adrenergic Agonist Start: 04-14-2025 End: 06-10-2025 take 1 tablet by mouth twice daily Clonidine Hcl 0.2 mg tablet Active 0.2 MG PO Twice daily 180 June 10, 2025 2:25pm Complies with drug therapy Start: 11-18-2024 End: [...] Active losartan potassium 50 mg oral tablet (20 sources) Angiotensin 2 Receptor Atif Start: 04-14-2025 [...] Sig (Original) aspirin 81 mg chewable tablet (5 sources) Platelet Aggregation Inhibitor, Nonsteroidal Anti-inflammator y Drug Start: End: 5 take 1 tablet by mouth once daily Aspirin 81 mg tablet,chewable Discontinued 81 MG PO Daily December 26, 2024 12:00am May 12, 2025 1:26pm atorvastatin 40 mg oral tablet (5 sources) HMG-CoA Reductase Inhibitor Start: 5 End: 5 take 1 tablet by mouth once daily Atorvastatin 40 mg tablet Discontinued 40 MG PO Daily December 26, 2024 12:00am May 12, 2025 1:26pm hydroCHLOROthiazide 25 mg oral tablet (6 sources) Thiazide Diuretic Start: 5 End: 5 take 1 tablet by mouth once daily Hydrochlorothiazide 25 mg tablet Discontinued 25 MG PO Daily November 18, 2024 1:00am February 04, 2025 4:02pm levothyroxine sodium 0.05 mg oral tablet (16 sources) l-Thyroxine Start: End: take 1 tablet by mouth once daily Levothyroxine 50 mcg tablet Discontinued 50 MCG PO Daily April 14, 2025 12:00am May 12, 2025 1:26pm Start: 05-17-2024 End: 08-15-2024 take 1 tablet by mouth once daily Levothyroxine 50 mcg tablet Discontinued 50 MCG PO Daily June 19, 2024 11:42am August 15, 2024 2:12pm LORazepam 0.5 mg oral tablet (19 sources) Benzodiazepine Start: 01-05-2024 End: 01-08-2024 take [...] Nov, Active spironolactone 25 mg oral tablet (19 sources) Aldosterone Antagonist Start: 01-08-2024 End: 11-18-2024 take 1 tablet by mouth once daily Problems Active Problems Problem Classification Problem Date Documented Da te Episodic/Chronic Anxiety disorders (1 source) Anxiety disorder, unspecified; Translations: [ANXIETY DISORDER UNSPECIFIED] Onset: 10-05-2022 Chronic Chronic kidney disease (20 sources) Chronic kidney disease stage 3B ; Translations: [Chronic kidney disease, stage 3b] 01-05-2024 Chronic Diabetes mellitus without complication (8 sources) Increased glucose level; Translations: [Other abnormal [...] 08-30-2022 Episodic Other aftercare (1 source) Other longterm (current) drug therapy; Translations: [OTH [facility] 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 THERAPY] Onset: 10-12-2022 Episodic Other and ill-defined heart disease (3 sources) Other ill-defined heart diseases; Translations: [OTHER ILL-DEFINED HEART DISEASES] Onset: 07-20-2022 Chronic Other ear and sense organ disorders (6 sources) Bilateral objective pulsatile tinnitus of ears; Translations: [Pulsatile tinnitus, bilateral] 12-26-2024 Episodic Other ear and sense organ disorders (2 sources) Pulsatile tinnitus, bilateral; Translations: [Objective tinnitus] 12-26-2024 Episodic Other lower respiratory disease (3 sources) Shortness of breath; Translations: [SHORTNESS OF BREATH] Onset: 09-26-2022 Episodic Other nutritional; endocrine; and metabolic disorders (8 sources) Abnormal weight gain; Translations: [Abnormal weight gain] 05-07-2024 Episodic Other nutritional; endocrine; and metabolic disorders (2 sources) Abnormal weight gain; Translations: [Abnormal weight gain] 05-07-2024 Episodic Other screening for suspected conditions (not mental disorders or infectious disease) (6 sources) Raised TSH level; Translations: [Other specified abnormal findings of blood chemistry] 07-10-2024 Episodic Pneumonia (except that caused by tuberculosis or sexually transmitted disease) (2 sources) Pneumonia; Translations: [Pneumonia, unspecified organism] 07-14-2025 Episodic Residual codes; unclassified (10 sources) Insomnia; Translations: [Other insomnia] 01-05-2024 Chronic [...] DIGESTV TRACT] Onset: 09-21-2022 Episodic Substance-related disorders (11 sources) Nicotine dependence, cigarettes, uncomplicated; Translations: [Tobacco dependence syndrome] Onset: 10-05-2022 01-05-2024 Chronic Syncope (8 sources) Syncope; Translations: [Syncope and collapse] 05-07-2024 [...] Test Name Value Interpretation Reference Range Facility Basophils Auto (Bld) [#/Vol] Ordered By: Albert Wallis on 07-13-2025 Basophils (Bld) [#/Vol] 0.2 10 3/uL High 0.0-0.1 [facility] Basophils/100 WBC Auto (Bld) Ordered By: Albert Wallis on 07-13-2025 Basophils/100 WBC (Bld) 2.8 % High 0.2-2.0 [facility] Eosinophils/100 WBC Auto (Bl d)Ordered By: Albert Wallis on 07-13-2025 Eosinophils/100 WBC (Bld) 6.6 % 0.9-7.0 [facility] Erythrocyte distribution wid th Auto (RBC) [Ratio]Ordered By: Albert Wallis on 07-13-2025 Erythrocyte distribution width (RBC) [Ratio] 14.6 % 11.0-15.0 [facility] Globulin Calc (S) [Mass/Vol] Ordered By: Maria Isabel Hurtado on 07-13-2025 Globulin (S) [Mass/Vol] 3.0 g/dL F [facility] Glomerular filtration rate ( GFR) estimation in non- AmericanOrdered By: Albert Wallis on 07-13-2025 GFR/1.73 sq M.predicted among non-blacks MDRD (S/P/Bld) [Vol rate/Area] 53 mL/min/{1.73_m2} Low >=60 mL/min/1.[address] [facility] Hematocrit Auto (Bld) [Volum e fraction]Ordered By: Albert Wallis on 07-13-2025 Hematocrit (Bld) [Volume fraction] 42.6 % 36.0-48.0 [facility] Hemoglobin [Mass/volume] in BloodOrdered By: Albert Wallis on 07-13-2025 Hemoglobin (Bld) [Mass/Vol] 13.9 g/dL 12.0-16.0 [facility] Laboratory - Chemistry and C hemistry - challengeOrdered By: Albert Wallis on 07-13-2025 Calcium [Mass/Vol] 9.9 mg/dL 8.5-10.1 [facility] Chloride [Moles/Vol] 105 mmol/L 98-107 [facility] CO2 [Moles/Vol] 28.0 mmol/L 21.0-32.0 [facility] Creatinine [Mass/Vol] 0.98 mg/dL 0.55-1.02 [facility] GFR/1.73 sq M.predicted MDRD (S/P/Bld) [Vol rate/Area] mL/min/{1.73_m2} >=60 mL/min/1.[address] [facility] Glucose [Mass/Vol] 149 mg/dL High 74-106 [facility] Potassium [Moles/Vol] 3.8 mmol/L 3.5-5.1 [facility] Sodium [Moles/Vol] 141 mmol/L 136-145 [facility] Urea nitrogen [Mass/Vol] 22.0 mg/dL High 7.0-18.0 [facility] Urea nitrogen/Creatinine [Mass ratio] 22.4 mg/mg [facility] Laboratory - Chemistry and C hemistry - challengeOrdered By: Maria Isabel Hurtado on 07-13-2025 Albumin [Mass/Vol] 3.3 g/dL Low 3.4-5.0 [facility] ALP [Catalytic activity/Vol] 50 U/L 46-116 [facility] ALT [Catalytic activity/Vol] 11 U/L Low 14-59 [facility] AST [Catalytic activity/Vol] 14 U/L Low 15-37 [facility] Bilirubin [Mass/Vol] 0.6 mg/dL 0.2-1.0 [facility] Protein [Mass/Vol] 6.3 g/dL Low 6.4-8.2 [facility] Laboratory - Hematology and Cell countsOrdered By: Albert Wallis on 07-13-2025 Immature granulocytes/100 WBC (Bld) 1.2 % High 0.0-0.5 [facility] Leukocytes [#/volume] correc gely for nucleated erythrocytes in Blood by Automated counOrdered By: Albert Wallis on 07-13-2025 WBC corrected for nucl RBC Auto (Bld) [#/Vol] 6.7 10 3/uL 4.0-11.0 [facility] Lymphocytes Auto (Bld) [#/Vo l]Ordered By: Albert Wallis on 07-13-2025 Lymphocytes (Bld) [#/Vol] 2.2 10 3/uL 1.2-3.8 [facility] Lymphocytes/100 WBC Auto (Bl d)Ordered By: Albert Wallis on 07-13-2025 Lymphocytes/100 WBC (Bld) 33.4 % 20.5-60.0 [facility] MCH Auto (RBC) [Entitic mass ]Ordered By: Albert Wallis on 07-13-2025 MCH (RBC) [Entitic mass] 29.3 pg 26.7-34.0 [facility] MCHC Auto (RBC) [Mass/Vol]Or dered By: Albert Wallis on 07-13-2025 MCHC (RBC) [Mass/Vol] 32.6 g/dL 29.9-35.2 [facility] MCV Auto (RBC) [Entitic vol] Ordered By: Albert Wallis on 07-13-2025 MCV (RBC) [Entitic vol] 89.9 fL 81.0-99.0 [facility] Monocytes Auto (Bld) [#/Vol] Ordered By: Albert Wallis on 07-13-2025 Monocytes (Bld) [#/Vol] 0.7 10 3/uL 0.3-0.8 [facility] Monocytes/100 WBC Auto (Bld) Ordered By: Albert Wallis on 07-13-2025 Monocytes/100 WBC (Bld) 10.3 % 1.7-12.0 [facility] Neutrophils Auto (Bld) [#/Vo l]Ordered By: Albert Wallis on 07-13-2025 Neutrophils (Bld) [#/Vol] 3.1 10 3/uL 1.4-6.5 [facility] Neutrophils/100 WBC Auto (Bl d)Ordered By: Albert Wallis on 07-13-2025 Neutrophils/100 WBC (Bld) 45.7 % 43.0-75.0 [facility] No Panel InformationOrdered By: Albert Wallis on 07-13-2025 Eosinophils # (Auto) 0.4 10 3/uL 0.0-0.7 [facility] Immature Granulocyte # (Auto) 0.08 10 3/uL High 0.00-0.03 [facility] Troponin I High Sensitivity 8.5 pg/mL 4.0-51.3 [facility] Comment on above: CUT-OFF POINTS HAVE [...] volume Auto (B ld) [Entitic vol]Ordered By: Albert Wallis on 07-13-2025 Platelet mean volume (Bld) [Entitic vol] 11.2 fL 9.5-13.5 [facility] Platelets Auto (Bld) [#/Vol] Ordered By: Albert Wallis on 07-13-2025 Platelets (Bld) [#/Vol] 118 10 3/uL Low 150-450 [facility] RBC Auto (Bld) [#/Vol]Ordere d By: Albert Wallis on 07-13-2025 RBC (Bld) [#/Vol] 4.74 10 6/uL 4.20-5.40 [facility] Serum or plasma albumin/glob ulin mass ratioOrdered By: Maria Isabel Hurtado on 07-13-2025 Albumin/Globulin [Mass ratio] 1.1 {ratio} [facility] Serum or plasma anion gap de terminationOrdered By: Albert Wallis on 07-13-2025 Anion gap [Moles/Vol] 11.8 mmol/L Fi [facility] Basophils Auto (Bld) [#/Vol] Ordered By: James Wiley on 07-10-2025 Basophils (Bld) [#/Vol] 0.2 10 3/uL High 0.0-0.1 [facility] Basophils/100 WBC Auto (Bld) Ordered By: James Wiley on 07-10-2025 Basophils/100 WBC (Bld) 2.8 % High 0.2-2.0 [facility] Eosinophils/100 WBC Auto (Bl d)Ordered By: James Wiley on 07-10-2025 Eosinophils/100 WBC (Bld) 5.4 % 0.9-7.0 [facility] Erythrocyte distribution wid th Auto (RBC) [Ratio]Ordered By: James Wiley on 07-10-2025 Erythrocyte distribution width (RBC) [Ratio] 14.7 % 11.0-15.0 [facility] Globulin Calc (S) [Mass/Vol] Ordered By: James Wiley on 07-10-2025 Globulin (S) [Mass/Vol] 3.1 g/dL F [facility] Glomerular filtration rate ( GFR) estimation in non- AmericanOrdered By: James Wiley on 07-10-2025 GFR/1.73 sq M.predicted among non-blacks MDRD (S/P/Bld) [Vol rate/Area] 56 mL/min/{1.73_m2} Low >=60 mL/min/1.[address] [facility] Hematocrit Auto (Bld) [Volum e fraction]Ordered By: James Wiley on 07-10-2025 Hematocrit (Bld) [Volume fraction] 43.1 % 36.0-48.0 [facility] Hemoglobin [Mass/volume] in BloodOrdered By: James Wiley on 07-10-2025 Hemoglobin (Bld) [Mass/Vol] 14.0 g/dL 12.0-16.0 [facility] Laboratory - Chemistry and C hemistry - challengeOrdered By: James Wiley on 07-10-2025 Albumin [Mass/Vol] 3.7 g/dL 3.4-5.0 [facility] ALP [Catalytic activity/Vol] 56 U/L 46-116 [facility] ALT [Catalytic activity/Vol] 12 U/L Low 14-59 [facility] AST [Catalytic activity/Vol] 21 U/L 15-37 [facility] Bilirubin [Mass/Vol] 0.6 mg/dL 0.2-1.0 [facility] Calcium [Mass/Vol] 9.5 mg/dL 8.5-10.1 [facility] Chloride [Moles/Vol] 105 mmol/L 98-107 [facility] CO2 [Moles/Vol] 26.4 mmol/L 21.0-32.0 [facility] Creatinine [Mass/Vol] 0.94 mg/dL 0.55-1.02 [facility] GFR/1.73 sq M.predicted MDRD (S/P/Bld) [Vol rate/Area] mL/min/{1.73_m2} >=60 mL/min/1.[address] [facility] Glucose [Mass/Vol] 114 mg/dL High 74-106 [facility] Potassium [Moles/Vol] 3.6 mmol/L 3.5-5.1 [facility] Protein [Mass/Vol] 6.8 g/dL 6.4-8.2 [facility] Sodium [Moles/Vol] 142 mmol/L 136-145 [facility] Urea nitrogen [Mass/Vol] 17.0 mg/dL 7.0-18.0 [facility] Urea nitrogen/Creatinine [Mass ratio] 18.1 mg/mg [facility] Laboratory - Hematology and Cell countsOrdered By: James Wiley on 07-10-2025 Immature granulocytes/100 WBC (Bld) 0.4 % 0.0-0.5 [facility] Leukocytes [#/volume] correc gely for nucleated erythrocytes in Blood by Automated counOrdered By: James Wiley on 07-10-2025 WBC corrected for nucl RBC Auto (Bld) [#/Vol] 6.7 10 3/uL 4.0-11.0 [facility] Lymphocytes Auto (Bld) [#/Vo l]Ordered By: Jaems Wiley on 07-10-2025 Lymphocytes (Bld) [#/Vol] 1.7 10 3/uL 1.2-3.8 [facility] Lymphocytes/100 WBC Auto (Bl d)Ordered By: James Wiley on 07-10-2025 Lymphocytes/100 WBC (Bld) 25.6 % 20.5-60.0 [facility] MCH Auto (RBC) [Entitic mass ]Ordered By: James Wiley on 07-10-2025 MCH (RBC) [Entitic mass] 29.5 pg 26.7-34.0 [facility] MCHC Auto (RBC) [Mass/Vol]Or dered By: James Wiley on 07-10-2025 MCHC (RBC) [Mass/Vol] 32.5 g/dL 29.9-35.2 [facility] MCV Auto (RBC) [Entitic vol] Ordered By: James Wiley on 07-10-2025 MCV (RBC) [Entitic vol] 90.9 fL 81.0-99.0 [facility] Monocytes Auto (Bld) [#/Vol] Ordered By: James Wiley on 07-10-2025 Monocytes (Bld) [#/Vol] 0.9 10 3/uL High 0.3-0.8 [facility] Monocytes/100 WBC Auto (Bld) Ordered By: James Wiley on 07-10-2025 Monocytes/100 WBC (Bld) 13.2 % High 1.7-12.0 [facility] Neutrophils Auto (Bld) [#/Vo l]Ordered By: James Wiley on 07-10-2025 Neutrophils (Bld) [#/Vol] 3.5 10 3/uL 1.4-6.5 [facility] Neutrophils/100 WBC Auto (Bl d)Ordered By: James Wiley on 07-10-2025 Neutrophils/100 WBC (Bld) 52.6 % 43.0-75.0 [facility] No Panel InformationOrdered By: James Wiley on 07-10-2025 Eosinophils # (Auto) 0.4 10 3/uL 0.0-0.7 [facility] Immature Granulocyte # (Auto) 0.03 10 3/uL 0.00-0.03 [facility] Platelet mean volume Auto (B ld) [Entitic vol]Ordered By: James Wiley on 07-10-2025 Platelet mean volume (Bld) [Entitic vol] 10.9 fL 9.5-13.5 [facility] Platelets Auto (Bld) [#/Vol] Ordered By: James Wiley on 07-10-2025 Platelets (Bld) [#/Vol] 114 10 3/uL Low 150-450 [facility] RBC Auto (Bld) [#/Vol]Ordere d By: James Wiley on 07-10-2025 RBC (Bld) [#/Vol] 4.74 10 6/uL 4.20-5.40 [facility] Serum or plasma albumin/glob ulin mass ratioOrdered By: James Wiley on 07-10-2025 Albumin/Globulin [Mass ratio] 1.2 {ratio} [facility] Serum or plasma anion gap de terminationOrdered By: James Wiley on 07-10-2025 Anion gap [Moles/Vol] 14.2 mmol/L Fi [facility] Basophils Auto (Bld) [#/Vol] Ordered By: Dennys Aguilar on 07-07-2025 Basophils (Bld) [#/Vol] 0.2 10 3/uL High 0.0-0.1 [facility] Basophils/100 WBC Auto (Bld) Ordered By: Dennys Aguilar on 07-07-2025 Basophils/100 WBC (Bld) 2.6 % High 0.2-2.0 [facility] Eosinophils/100 WBC Auto (Bl d)Ordered By: Dennys Aguilar on 07-07-2025 Eosinophils/100 WBC (Bld) 5.4 % 0.9-7.0 [facility] Erythrocyte distribution wid th Auto (RBC) [Ratio]Ordered By: Dennys Aguilar on 07-07-2025 Erythrocyte distribution width (RBC) [Ratio] 14.6 % 11.0-15.0 [facility] Glomerular filtration rate ( GFR) estimation in non- AmericanOrdered By: Dennys Aguilar on 07-07-2025 GFR/1.73 sq M.predicted among non-blacks MDRD (S/P/Bld) [Vol rate/Area] 49 mL/min/{1.73_m2} Low >=60 mL/min/1.[address] [facility] Hematocrit Auto (Bld) [Volum e fraction]Ordered By: Dennys Aguilar on 07-07-2025 Hematocrit (Bld) [Volume fraction] 44.7 % 36.0-48.0 [facility] Hemoglobin [Mass/volume] in BloodOrdered By: Dennys Aguilar on 07-07-2025 Hemoglobin (Bld) [Mass/Vol] 14.4 g/dL 12.0-16.0 [facility] Laboratory - Chemistry and C hemistry - challengeOrdered By: Dennys Aguilar on 07-07-2025 Calcium [Mass/Vol] 9.5 mg/dL 8.5-10.1 [facility] Chloride [Moles/Vol] 104 mmol/L 98-107 [facility] CO2 [Moles/Vol] 27.2 mmol/L 21.0-32.0 [facility] Creatinine [Mass/Vol] 1.05 mg/dL High 0.55-1.02 [facility] GFR/1.73 sq M.predicted MDRD (S/P/Bld) [Vol rate/Area] 60 mL/min/{1.73_m2} >=60 mL/min/1.[address] [facility] Glucose [Mass/Vol] 113 mg/dL High 74-106 [facility] Natriuretic peptide B (Bld) [Mass/Vol] 418.0 pg/mL <=1800.0 [facility] Potassium [Moles/Vol] 3.8 mmol/L 3.5-5.1 [facility] Sodium [Moles/Vol] 141 mmol/L 136-145 [facility] Urea nitrogen [Mass/Vol] 17.0 mg/dL 7.0-18.0 [facility] Urea nitrogen/Creatinine [Mass ratio] 16.2 mg/mg [facility] Laboratory - Hematology and Cell countsOrdered By: Dennys Aguilar on 07-07-2025 Immature granulocytes/100 WBC (Bld) 0.4 % 0.0-0.5 [facility] Leukocytes [#/volume] correc gely for nucleated erythrocytes in Blood by Automated counOrdered By: Dennys Aguilar on 07-07-2025 WBC corrected for nucl RBC Auto (Bld) [#/Vol] 8.3 10 3/uL 4.0-11.0 [facility] Lymphocytes Auto (Bld) [#/Vo l]Ordered By: Dennys Aguilar on 07-07-2025 Lymphocytes (Bld) [#/Vol] 1.7 10 3/uL 1.2-3.8 [facility] Lymphocytes/100 WBC Auto (Bl d)Ordered By: Dennys Aguilar on 07-07-2025 Lymphocytes/100 WBC (Bld) 19.8 % Low 20.5-60.0 [facility] MCH Auto (RBC) [Entitic mass ]Ordered By: Dennys Aguilar on 07-07-2025 MCH (RBC) [Entitic mass] 29.5 pg 26.7-34.0 [facility] MCHC Auto (RBC) [Mass/Vol]Or dered By: Dennys Aguilar on 07-07-2025 MCHC (RBC) [Mass/Vol] 32.2 g/dL 29.9-35.2 [facility] MCV Auto (RBC) [Entitic vol] Ordered By: Dennys Aguilar on 07-07-2025 MCV (RBC) [Entitic vol] 91.6 fL 81.0-99.0 F [facility] Monocytes Auto (Bld) [#/Vol] Ordered By: Dennys Aguilar on 07-07-2025 Monocytes (Bld) [#/Vol] 1.2 10 3/uL High 0.3-0.8 [facility] Monocytes/100 WBC Auto (Bld) Ordered By: Dennys Aguilar on 07-07-2025 Monocytes/100 WBC (Bld) 14.9 % High 1.7-12.0 [facility] Neutrophils Auto (Bld) [#/Vo l]Ordered By: Dennys Aguilar on 07-07-2025 Neutrophils (Bld) [#/Vol] 4.7 10 3/uL 1.4-6.5 [facility] Neutrophils/100 WBC Auto (Bl d)Ordered By: Dennys Aguilar on 07-07-2025 Neutrophils/100 WBC (Bld) 56.9 % 43.0-75.0 [facility] No Panel InformationOrdered By: Dennys Aguilar on 07-07-2025 Eosinophils # (Auto) 0.5 10 3/uL 0.0-0.7 [facility] Immature Granulocyte # (Auto) 0.03 10 3/uL 0.00-0.03 [facility] Troponin I High Sensitivity 9.9 pg/mL 4.0-51.3 [facility] Comment on above: CUT-OFF POINTS HAVE [...] volume Auto (B ld) [Entitic vol]Ordered By: Dennys Aguilar on 07-07-2025 Platelet mean volume (Bld) [Entitic vol] 11.4 fL 9.5-13.5 [facility] Platelets Auto (Bld) [#/Vol] Ordered By: Dennys Aguilar on 07-07-2025 Platelets (Bld) [#/Vol] 119 10 3/uL Low 150-450 [facility] RBC Auto (Bld) [#/Vol]Ordere d By: Dennys Aguilar on 07-07-2025 RBC (Bld) [#/Vol] 4.88 10 6/uL 4.20-5.40 [facility] Serum or plasma anion gap de terminationOrdered By: Dennys Aguilar on 07-07-2025 Anion gap [Moles/Vol] 13.6 mmol/L [facility] Activated partial thrombopla stin time (aPTT) in platelet poor plasma by coagulation aOrdered By: Daphne Emanuel on 04-06-2025 aPTT Coag (PPP) [Time] 27.4 s 22.3-36.2 [facility] Basophils Auto (Bld) [#/Vol] Ordered By: Daphne Emanuel on 04-06-2025 Basophils (Bld) [#/Vol] 0.2 10 3/uL High 0.0-0.1 [facility] Basophils/100 WBC Auto (Bld) Ordered By: Daphne Emanuel on 04-06-2025 Basophils/100 WBC (Bld) 4.2 % High 0.2-2.0 [facility] Eosinophils/100 WBC Auto (Bl d)Ordered By: Daphne Emanuel on 04-06-2025 Eosinophils/100 WBC (Bld) 9.2 % High 0.9-7.0 [facility] Erythrocyte distribution wid th Auto (RBC) [Ratio]Ordered By: Daphne Emanuel on 04-06-2025 Erythrocyte distribution width (RBC) [Ratio] 14.7 % 11.0-15.0 [facility] Estimated glomerular filtrat ion rate (GFR) non- AmericanOrdered By: Daphne Emanuel on 04-06-2025 GFR/1.73 sq M.predicted among non-blacks MDRD (S/P/Bld) [Vol rate/Area] 54 mL/min/{1.73_m2} Low >=60 mL/min/1.[address] [facility] Globulin Calc (S) [Mass/Vol] Ordered By: Daphne Emanuel on 04-06-2025 Globulin (S) [Mass/Vol] 3.1 g/dL F [facility] Hematocrit Auto (Bld) [Volum e fraction]Ordered By: Daphne Emanuel on 04-06-2025 Hematocrit (Bld) [Volume fraction] 45.0 % 36.0-48.0 [facility] Hemoglobin [Mass/volume] in BloodOrdered By: Daphne Emanuel on 04-06-2025 Hemoglobin (Bld) [Mass/Vol] 14.7 g/dL 12.0-16.0 [facility] INR in Platelet poor plasma by Coagulation assayOrdered By: Daphne Emanuel on 04-06-2025 INR Coag (PPP) [Relative time] 1.32 {INR} [facility] Comment on above: DESIRED INR:2.0-3.0 CONDITIONS NOT LISTED BELOW2.5-3.5 FOR PROSTHETIC HEART VALVE REPLACEMENT2.5-3.5 RECURRENT THROMBOSIS Laboratory - Chemistry and C hemistry - challengeOrdered By: Daphne Emanuel on 04-06-2025 Bilirubin Ql (U) Negative NEGATIVE [facility] Glucose (U) [Mass/Vol] Negative [facility] Ket[facility] Ql (U) Negative NEGATIVE [facility] pH (U) 7.0 [pH] 5.0-9.0 [facility] Specific gravity (U) [Rel density] 1.010 1.005-1.025 [facility] Urobilinogen Qn (U) 0.2 {Myranda'U}/dL 0.2-1.0 [facility] Albumin [Mass/Vol] 3.7 g/dL 3.4-5.0 [facility] ALP [Catalytic activity/Vol] 64 U/L 46-116 [facility] ALT [Catalytic activity/Vol] 16 U/L 14-59 [facility] AST [Catalytic activity/Vol] 14 U/L Low 15-37 [facility] Bilirubin [Mass/Vol] 0.4 mg/dL 0.2-1.0 [facility] Calcium [Mass/Vol] 9.9 mg/dL 8.5-10.1 [facility] Chloride [Moles/Vol] 106 mmol/L 98-107 [facility] CO2 [Moles/Vol] 26.9 mmol/L 21.0-32.0 [facility] Creatinine [Mass/Vol] 0.97 mg/dL 0.55-1.02 [facility] GFR/1.73 sq M.predicted MDRD (S/P/Bld) [Vol rate/Area] mL/min/{1.73_m2} >=60 mL/min/1.[address] [facility] Glucose [Mass/Vol] 102 mg/dL 74-106 [facility] Natriuretic peptide B (Bld) [Mass/Vol] 213.0 pg/mL <=1800.0 [facility] Potassium [Moles/Vol] 3.8 mmol/L 3.5-5.1 [facility] Protein [Mass/Vol] 6.8 g/dL 6.4-8.2 [facility] Sodium [Moles/Vol] 144 mmol/L 136-145 [facility] Urea nitrogen [Mass/Vol] 19.0 mg/dL High 7.0-18.0 [facility] Urea nitrogen/Creatinine [Mass ratio] 19.6 mg/mg [facility] Laboratory - Hematology and Cell countsOrdered By: Daphne Emanuel on 04-06-2025 Immature granulocytes/100 WBC (Bld) 0.5 % 0.0-0.5 [facility] - Specimen inform ationOrdered By: Daphne Emanuel on 04-06-2025 Appearance (U) CLEAR CLEAR [facility] Color (U) LT. YELLOW YELLOW [facility] - UrinalysisOrder ed By: Daphne Emanuel on 04-06-2025 Leukocyte esterase Test strip Ql (U) Negative NEGATIVE [facility] Mucus Ql (Urine sed) TRACE Abnormal NONE SEEN [facility] Nitrite Ql (U) Negative NEGATIVE [facility] Protein Ql (U) Negative NEG/TRACE [facility] Leukocytes [#/volume] correc gely for nucleated erythrocytes in Blood by Automated counOrdered By: Daphne Emanuel on 04-06-2025 WBC corrected for nucl RBC Auto (Bld) [#/Vol] 5.8 10 3/uL 4.0-11.0 [facility] Lymphocytes Auto (Bld) [#/Vo l]Ordered By: Daphne Emanuel on 04-06-2025 Lymphocytes (Bld) [#/Vol] 2.3 10 3/uL 1.2-3.8 [facility] Lymphocytes/100 WBC Auto (Bl d)Ordered By: Daphne Emanuel on 04-06-2025 Lymphocytes/100 WBC (Bld) 39.5 % 20.5-60.0 [facility] MCH Auto (RBC) [Entitic mass ]Ordered By: Daphne Emanuel on 04-06-2025 MCH (RBC) [Entitic mass] 30.0 pg 26.7-34.0 [facility] MCHC Auto (RBC) [Mass/Vol]Or dered By: Daphne Emanuel on 04-06-2025 MCHC (RBC) [Mass/Vol] 32.7 g/dL 29.9-35.2 [facility] MCV Auto (RBC) [Entitic vol] Ordered By: Daphne Emanuel on 04-06-2025 MCV (RBC) [Entitic vol] 91.8 fL 81.0-99.0 F [facility] Monocytes Auto (Bld) [#/Vol] Ordered By: Daphne Emanuel on 04-06-2025 Monocytes (Bld) [#/Vol] 0.8 10 3/uL 0.3-0.8 [facility] Monocytes/100 WBC Auto (Bld) Ordered By: Daphne Emanuel on 04-06-2025 Monocytes/100 WBC (Bld) 13.6 % High 1.7-12.0 F [facility] Neutrophils Auto (Bld) [#/Vo l]Ordered By: Daphne Emanuel on 04-06-2025 Neutrophils (Bld) [#/Vol] 1.9 10 3/uL 1.4-6.5 [facility] Neutrophils/100 WBC Auto (Bl d)Ordered By: Daphne Emanuel on 04-06-2025 Neutrophils/100 WBC (Bld) 33.0 % Low 43.0-75.0 [facility] No Panel InformationOrdered By: Daphne Emanuel on 04-06-2025 Urine Bacteria TRACE #/HPF Abnormal NONE SEEN [facility] Urine Culture Reflexed NO [facility] Urine Occult Blood Negative NEGATIVE [facility] Urine Other Casts NONE SEEN #/LPF NONE SEEN [facility] Urine Other Crystals None Seen #/HPF None Seen [facility] Urine RBC 0-2 #/HPF 0-2 [facility] Urine Squamous Epithelial Cells RARE #/LPF NONE/RARE [facility] Urine WBC NONE SEEN #/HPF NONE SEEN [facility] Eosinophils # (Auto) 0.5 10 3/uL 0.0-0.7 [facility] Immature Granulocyte # (Auto) 0.03 10 3/uL 0.00-0.03 [facility] Troponin I High Sensitivity 8.7 pg/mL 4.0-51.3 [facility] Comment on above: CUT-OFF POINTS HAVE [...] (Bld) [Entitic vol] 10.7 fL 9.5-13.5 [facility] Platelets Auto (Bld) [#/Vol] Ordered By: Daphne Emanuel on 04-06-2025 Platelets (Bld) [#/Vol] 135 10 3/uL Low 150-450 [facility] Prothrombin time (PT)Ordered By: Daphne Emanuel on 04-06-2025 PT Coag (PPP) [Time] 13.6 s High 9.0-11.6 [facility] RBC Auto (Bld) [#/Vol]Ordere d By: Daphne Emanuel on 04-06-2025 RBC (Bld) [#/Vol] 4.90 10 6/uL 4.20-5.40 [facility] Serum or plasma albumin/glob ulin mass ratioOrdered By: Daphne Emanuel on 04-06-2025 Albumin/Globulin [Mass ratio] 1.2 {ratio} [facility] Serum or plasma anion gap de terminationOrdered By: Daphne Emanuel on 04-06-2025 Anion gap [Moles/Vol] 14.9 mmol/L [facility] Office Visiton 02-12-2025 Follow-up visit [id number] Zoraida Barrios 1935 F Date Provider Department Center 02/12/2025 MISSY OCASIO CARD [facility] Family History Problem Relation Age of Onset Hypertension Mother Family Status - Relation Status Age at Mother Father Level of Service:70566 [place] OFFICE/OUTPATIENT ESTABLISHED MOD MDM 30 MIN Normal [facility] Basophils Auto (Bld) [#/Vol] on 12-24-2024 Basophils (Bld) [#/Vol] Automated basoph il count High 0.0-0.1 [facility] Basophils/100 WBC Auto (Bld) on 12-24-2024 Basophils/100 WBC (Bld) Automated basophil % High 0. 2-2.0 [facility] Eosinophils/100 WBC Auto (Bl d)on 12-24-2024 Eosinophils/100 WBC (Bld) Automated eosinophil % 0.9-7.0 [facility] Erythrocyte distribution wid th Auto (RBC) [Ratio]on 12-24-2024 Erythrocyte distribution width (RBC) [Ratio] Erythrocyte distribution width [Ratio] by Automated count 11.0-15.0 [facility] Estimated glomerular filtrat ion rate (GFR) non- Americanon 12-24-2024 GFR/1.73 sq M.predicted among non-blacks MDRD (S/P/Bld) [Vol rate/Area] Estimated glomerular filtration rate (GFR) non- Low >=60 mL/min/1.[address] [facility] Globulin Calc (S) [Mass/Vol] on 12-24-2024 Globulin (S) [Mass/Vol] Serum globulin measurement by calculation (mass/volume) [facility] Hematocrit Auto (Bld) [Volum e fraction]on 12-24-2024 Hematocrit (Bld) [Volume fraction] Hematocrit [Volume Fraction] of Blood by Automated count 36.0-48.0 [facility] Hemoglobin [Mass/volume] in Bloodon 12-24-2024 Hemoglobin (Bld) [Mass/Vol] Hemoglobin [Mass/volume] in Blood 12.0-16.0 [facility] Laboratory - Chemistry and C hemistry - challengeon 12-24-2024 Albumin [Mass/Vol] 3.4 g/dL 3.4-5.0 [facility] ALP [Catalytic activity/Vol] 55 U/L 46-116 [facility] ALT [Catalytic activity/Vol] 14 U/L 14-59 [facility] AST [Catalytic activity/Vol] 15 U/L 15-37 [facility] Bilirubin [Mass/Vol] 0.3 mg/dL 0.2-1.0 [facility] Calcium [Mass/Vol] 9.8 mg/dL 8.5-10.1 [facility] Chloride [Moles/Vol] 106 mmol/L 98-107 [facility] CO2 [Moles/Vol] 29.4 mmol/L 21.0-32.0 [facility] Creatinine [Mass/Vol] 1.24 mg/dL High 0.55-1.02 [facility] GFR/1.73 sq M.predicted MDRD (S/P/Bld) [Vol rate/Area] 49 mL/min/{1.73_m2} Low >=60 mL/min/1.[address] [facility] Glucose [Mass/Vol] 158 mg/dL High 74-106 [facility] Potassium [Moles/Vol] 3.5 mmol/L 3.5-5.1 [facility] Protein [Mass/Vol] 6.3 g/dL Low 6.4-8.2 [facility] Sodium [Moles/Vol] 143 mmol/L 136-145 [facility] Urea nitrogen [Mass/Vol] 25.0 mg/dL High 7.0-18.0 [facility] Urea nitrogen/Creatinine [Mass ratio] 20.2 mg/mg [facility] Laboratory - Hematology and Cell countson 12-24-2024 Immature granulocytes/100 WBC (Bld) 0.4 % 0.0-0.5 [facility] Leukocytes [#/volume] correc gely for nucleated erythrocytes in Blood by Automated counon 12-24-2024 WBC corrected for nucl RBC Auto (Bld) [#/Vol] Leukocytes [#/volume] corrected for nucleated erythrocytes in Blood by Automated coun 4.0-11.0 [facility] Lymphocytes Auto (Bld) [#/Vo l]on 12-24-2024 Lymphocytes (Bld) [#/Vol] Lymphocytes [#/volume] in Blood by Automated count 1.2-3.8 [facility] Lymphocytes/100 WBC Auto (Bl d)on 12-24-2024 Lymphocytes/100 WBC (Bld) Lymphocytes/100 leukocytes in Blood by Automated count 20.5-60.0 [facility] MCH Auto (RBC) [Entitic mass ]on 12-24-2024 MCH (RBC) [Entitic mass] MCH [Entitic mass] by Automated count 26.7-34.0 [facility] MCHC Auto (RBC) [Mass/Vol]on 12-24-2024 MCHC (RBC) [Mass/Vol] MCHC [Mass/volume] by Automated count 29.9-35.2 [facility] MCV Auto (RBC) [Entitic vol] on 12-24-2024 MCV (RBC) [Entitic vol] MCV [Entitic vol ume] by Automated count 81.0-99.0 [facility] Monocytes Auto (Bld) [#/Vol] on 12-24-2024 Monocytes (Bld) [#/Vol] Automated blood monocyte count 0.3-0.8 [facility] Monocytes/100 WBC Auto (Bld) on 12-24-2024 Monocytes/100 WBC (Bld) Automated monocyte % High 1. 7-12.0 [facility] Neutrophils Auto (Bld) [#/Vo l]on 12-24-2024 Neutrophils (Bld) [#/Vol] Neutrophils [#/volume] in Blood by Automated count 1.4-6.5 [facility] Neutrophils/100 WBC Auto (Bl d)on 12-24-2024 Neutrophils/100 WBC (Bld) Automated neutrophil % 43.0-75.0 [facility] No Panel Informationon 12-24 Eosinophils # (Auto) 0.3 10 3/uL 0.0-0.7 [facility] Immature Granulocyte # (Auto) 0.02 10 3/uL 0.00-0.03 [facility] Troponin I High Sensitivity 8.8 pg/mL 4.0-51.3 [facility] Comment on above: CUT-OFF POINTS HAVE [...] in Blood by Automated count 9.5-13.5 [facility] Platelets Auto (Bld) [#/Vol] on 12-24-2024 Platelets (Bld) [#/Vol] Platelets [#/vol ume] in Blood by Automated count Low 150-450 [facility] RBC Auto (Bld) [#/Vol]on RBC (Bld) [#/Vol] Erythrocytes [#/volume] in Blood by Automated count 4.20-5.40 [facility] Serum or plasma albumin/glob ulin mass ratioon 12-24-2024 Albumin/Globulin [Mass ratio] Serum or plasma albumin/globulin mass ratio [facility] Serum or plasma anion gap de terminationon 12-24-2024 Anion gap [Moles/Vol] Serum or plasma an ion gap determination [facility] Office Visiton 11-28-2024 Follow-up visit [id number] Zoraida Barrios 1935 F Date Provider Department Center 11/28/2024 EDVIN PALM CRISTOBAL [facility] Family History Problem Relation Age of Onset Hypertension Mother Family Status - Relation Status Age at Mother Level of Service:42806 [place] OFFICE/OUTPATIENT ESTABLISHED LOW MDM 20 MIN Normal [facility] Office Visiton 06-28-2024 Follow-up visit [id number] Zoraida Barrios 1935 F Date Provider Department Center 06/28/2024 AALIYAH HENDERSON CRISTOBAL [facility] Family History Problem Relation Age of Onset Hypertension Mother Family Status - Relation Status Age at Mother Level of Service:06161 [place] OFFICE/OUTPATIENT ESTABLISHED LOW MDM 20 MIN Normal [facility] Basophils Auto (Bld) [#/Vol] on 05-15-2024 Basophils (Bld) [#/Vol] 0.2 10 3/uL High 0.0-0.1 [facility] Basophils/100 WBC Auto (Bld) on 05-15-2024 Basophils/100 WBC (Bld) 2.2 % High 0.2-2.0 F [facility] Eosinophils/100 WBC Auto (Bl d)on 05-15-2024 Eosinophils/100 WBC (Bld) 5.0 % 0.9-7.0 [facility] Erythrocyte distribution wid th Auto (RBC) [Ratio]on 05-15-2024 Erythrocyte distribution width (RBC) [Ratio] 14.7 % 11.0-15.0 [facility] Estimated glomerular filtrat ion rate (GFR) non- Americanon 05-15-2024 GFR/1.73 sq M.predicted among non-blacks MDRD (S/P/Bld) [Vol rate/Area] 45 mL/min/{1.73_m2} Low >=60 [facility] Hematocrit Auto (Bld) [Volum e fraction]on 05-15-2024 Hematocrit (Bld) [Volume fraction] 40.2 % 36.0-48.0 [facility] Hemoglobin [Mass/volume] in Bloodon 05-15-2024 Hemoglobin (Bld) [Mass/Vol] 13.0 g/dL 12.0-16.0 [facility] Laboratory - Chemistry and C hemistry - challengeon 05-15-2024 Calcium [Mass/Vol] 9.5 mg/dL 8.5-10.1 [facility] Chloride [Moles/Vol] 105 mmol/L 98-107 [facility] CO2 [Moles/Vol] 26.4 mmol/L 21.0-32.0 [facility] Cobalamin (Vitamin B12) [Mass/Vol] 618.0 pg/mL 193.0-986.0 [facility] Creatinine [Mass/Vol] 1.15 mg/dL High 0.55-1.02 [facility] Free T4 [Mass/Vol] 1.06 ng/dL 0.76-1.46 [facility] GFR/1.73 sq M.predicted MDRD (S/P/Bld) [Vol rate/Area] 54 mL/min/{1.73_m2} Low >=60 [facility] Glucose [Mass/Vol] 104 mg/dL 74-106 [facility] Potassium [Moles/Vol] 4.2 mmol/L 3.5-5.1 [facility] Sodium [Moles/Vol] 137 mmol/L 136-145 [facility] TSH Qn 4.417 m[IU]/L High 0.358-3.740 [facility] Urea nitrogen [Mass/Vol] 20.0 mg/dL High 7.0-18.0 [facility] Urea nitrogen/Creatinine [Mass ratio] 17.4 mg/mg [facility] Laboratory - Hematology and Cell countson 05-15-2024 Immature granulocytes/100 WBC (Bld) 1.3 % High 0.0-0.5 [facility] Leukocytes [#/volume] correc gely for nucleated erythrocytes in Blood by Automated counon 05-15-2024 WBC corrected for nucl RBC Auto (Bld) [#/Vol] 10.4 10 3/uL 4.0-11.0 [facility] Lymphocytes Auto (Bld) [#/Vo l]on 05-15-2024 Lymphocytes (Bld) [#/Vol] 2.1 10 3/uL 1.2-3.8 [facility] Lymphocytes/100 WBC Auto (Bl d)on 05-15-2024 Lymphocytes/100 WBC (Bld) 20.1 % Low 20.5-60.0 [facility] MCH Auto (RBC) [Entitic mass ]on 05-15-2024 MCH (RBC) [Entitic mass] 30.2 pg 26.7-34.0 [facility] MCHC Auto (RBC) [Mass/Vol]on 05-15-2024 MCHC (RBC) [Mass/Vol] 32.3 g/dL 29.9-35.2 Fir [facility] MCV Auto (RBC) [Entitic vol] on 05-15-2024 MCV (RBC) [Entitic vol] 93.3 fL 81.0-99.0 F [facility] Monocytes Auto (Bld) [#/Vol] on 05-15-2024 Monocytes (Bld) [#/Vol] 1.4 10 3/uL High 0.3-0.8 [facility] Monocytes/100 WBC Auto (Bld) on 05-15-2024 Monocytes/100 WBC (Bld) 13.0 % High 1.7-12.0 F [facility] Neutrophils Auto (Bld) [#/Vo l]on 05-15-2024 Neutrophils (Bld) [#/Vol] 6.1 10 3/uL 1.4-6.5 [facility] Neutrophils/100 WBC Auto (Bl d)on 05-15-2024 Neutrophils/100 WBC (Bld) 58.4 % 43.0-75.0 [facility] No Panel Informationon 05-15 25-Hydroxy Vitamin D Total 32.6 ng/mL [facility] Comment on above: <20 ng/mL Vit D defi cient20-<30 ng/mL Vit D [id number] ng/mL Vit D sufficient>100 ng/mL Potential Toxicity Eosinophils # (Auto) 0.5 10 3/uL 0.0-0.7 [facility] Folate 12.10 ng/mL 8.60-58.90 [facility] Immature Granulocyte # (Auto) 0.13 10 3/uL High 0.00-0.03 [facility] Platelet mean volume Auto (B ld) [Entitic vol]on 05-15-2024 Platelet mean volume (Bld) [Entitic vol] 10.7 fL 9.5-13.5 [facility] Platelets Auto (Bld) [#/Vol] on 05-15-2024 Platelets (Bld) [#/Vol] 132 10 3/uL Low 150-450 [facility] RBC Auto (Bld) [#/Vol]on RBC (Bld) [#/Vol] 4.31 10 6/uL 4.20-5.40 [facility] Serum or plasma anion gap de terminationon 05-15-2024 Anion gap [Moles/Vol] 9.8 mmol/L [facility] Basophils Auto (Bld) [#/Vol] on 05-10-2024 Basophils (Bld) [#/Vol] 0.2 10 3/uL High 0.0-0.1 [facility] Basophils/100 WBC Auto (Bld) on 05-10-2024 Basophils/100 WBC (Bld) 3.1 % High 0.2-2.0 F [facility] Eosinophils/100 WBC Auto (Bl d)on 05-10-2024 Eosinophils/100 WBC (Bld) 6.3 % 0.9-7.0 [facility] Erythrocyte distribution wid th Auto (RBC) [Ratio]on 05-10-2024 Erythrocyte distribution width (RBC) [Ratio] 14.8 % 11.0-15.0 [facility] Estimated glomerular filtrat ion rate (GFR) non- Americanon 05-10-2024 GFR/1.73 sq M.predicted among non-blacks MDRD (S/P/Bld) [Vol rate/Area] 39 mL/min/{1.73_m2} Low >=60 [facility] Fibrin D-dimer [Presence] in Platelet poor plasma by Latex agglutinationon 05-10-2024 Fibrin D-dimer LA Ql (PPP) 0.29 mg/L FEU <=0.59 [facility] Comment on above: Increases in D-Dimer [...] 05-10-2024 Globulin (S) [Mass/Vol] 3.1 g/dL F [facility] Hematocrit Auto (Bld) [Volum e fraction]on 05-10-2024 Hematocrit (Bld) [Volume fraction] 39.6 % 36.0-48.0 [facility] Hemoglobin [Mass/volume] in Bloodon 05-10-2024 Hemoglobin (Bld) [Mass/Vol] 12.9 g/dL 12.0-16.0 [facility] INR in Platelet poor plasma by Coagulation assayon 05-10-2024 INR Coag (PPP) [Relative time] 1.34 {INR} [facility] Comment on above: DESIRED INR:2.0-3.0 CONDITIONS NOT LISTED BELOW2.5-3.5 FOR PROSTHETIC HEART VALVE REPLACEMENT2.5-3.5 RECURRENT THROMBOSIS Laboratory - Chemistry and C hemistry - challengeon 05-10-2024 Bilirubin Ql (U) Negative NEGATIVE [facility] Glucose (U) [Mass/Vol] Negative NE[facility]IVE [facility] Ketones Ql (U) Negative NEGATIVE [facility] pH (U) 6.0 [pH] 5.0-9.0 [facility] Specific gravity (U) [Rel density] 1.015 1.005-1.025 [facility] Urobilinogen Qn (U) 0.2 {Myranda'U}/dL 0.2-1.0 [facility] Albumin [Mass/Vol] 3.5 g/dL 3.4-5.0 [facility] ALP [Catalytic activity/Vol] 54 U/L 46-116 [facility] ALT [Catalytic activity/Vol] 17 U/L 14-59 [facility] AST [Catalytic activity/Vol] 14 U/L Low 15-37 [facility] Bilirubin [Mass/Vol] 0.4 mg/dL 0.2-1.0 [facility] Calcium [Mass/Vol] 9.5 mg/dL 8.5-10.1 [facility] Chloride [Moles/Vol] 104 mmol/L 98-107 [facility] CO2 [Moles/Vol] 26.0 mmol/L 21.0-32.0 [facility] Creatinine [Mass/Vol] 1.28 mg/dL High 0.55-1.02 [facility] GFR/1.73 sq M.predicted MDRD (S/P/Bld) [Vol rate/Area] 48 mL/min/{1.73_m2} Low >=60 [facility] Glucose [Mass/Vol] 143 mg/dL High 74-106 [facility] Natriuretic peptide B (Bld) [Mass/Vol] 178.0 pg/mL <=1800.0 [facility] Potassium [Moles/Vol] 3.9 mmol/L 3.5-5.1 [facility] Protein [Mass/Vol] 6.6 g/dL 6.4-8.2 [facility] Sodium [Moles/Vol] 136 mmol/L 136-145 [facility] Urea nitrogen [Mass/Vol] 21.0 mg/dL High 7.0-18.0 [facility] Urea nitrogen/Creatinine [Mass ratio] 16.4 mg/mg [facility] Laboratory - Hematology and Cell countson 05-10-2024 Immature granulocytes/100 WBC (Bld) 0.3 % 0.0-0.5 [facility] - Specimen inform ationon 05-10-2024 Appearance (U) CLEAR CLEAR [facility] Color (U) LT. YELLOW YELLOW [facility] Laboratory - Urinalysison Leukocyte esterase Test strip Ql (U) SMALL Abnormal NEGATIVE [facility] Mucus Ql (Urine sed) NONE SEEN NONE SEEN [facility] Nitrite Ql (U) Negative NEGATIVE [facility] Protein Ql (U) Negative NEG/TRACE [facility] Leukocytes [#/volume] correc gely for nucleated erythrocytes in Blood by Automated counon 05-10-2024 WBC corrected for nucl RBC Auto (Bld) [#/Vol] 5.9 10 3/uL 4.0-11.0 [facility] Lymphocytes Auto (Bld) [#/Vo l]on 05-10-2024 Lymphocytes (Bld) [#/Vol] 1.8 10 3/uL 1.2-3.8 [facility] Lymphocytes/100 WBC Auto (Bl d)on 05-10-2024 Lymphocytes/100 WBC (Bld) 31.0 % 20.5-60.0 [facility] MCH Auto (RBC) [Entitic mass ]on 05-10-2024 MCH (RBC) [Entitic mass] 30.4 pg 26.7-34.0 [facility] MCHC Auto (RBC) [Mass/Vol]on 05-10-2024 MCHC (RBC) [Mass/Vol] 32.6 g/dL 29.9-35.2 Fir [facility] MCV Auto (RBC) [Entitic vol] on 05-10-2024 MCV (RBC) [Entitic vol] 93.2 fL 81.0-99.0 F [facility] Monocytes Auto (Bld) [#/Vol] on 05-10-2024 Monocytes (Bld) [#/Vol] 0.7 10 3/uL 0.3-0.8 [facility] Monocytes/100 WBC Auto (Bld) on 05-10-2024 Monocytes/100 WBC (Bld) 12.4 % High 1.7-12.0 F [facility] Neutrophils Auto (Bld) [#/Vo l]on 05-10-2024 Neutrophils (Bld) [#/Vol] 2.8 10 3/uL 1.4-6.5 [facility] Neutrophils/100 WBC Auto (Bl d)on 05-10-2024 Neutrophils/100 WBC (Bld) 46.9 % 43.0-75.0 [facility] No Panel Informationon 05-10 Urine Bacteria TRACE #/HPF Abnormal NONE SEEN [facility] Urine Occult Blood TRACE-I NEGATIVE [facility] Urine Other Casts NONE SEEN #/LPF NONE SEEN [facility] Urine Other Crystals None Seen #/HPF None Seen [facility] Urine RBC 5-10 #/HPF Abnormal 0-2 [facility] Urine Squamous Epithelial Cells MODERATE #/LPF Abnormal NONE/RARE [facility] Urine WBC 0-2 #/HPF Abnormal NONE SEEN [facility] Eosinophils # (Auto) 0.4 10 3/uL 0.0-0.7 [facility] Immature Granulocyte # (Auto) 0.02 10 3/uL 0.00-0.03 [facility] Troponin I High Sensitivity 5.5 pg/mL 4.0-51.3 [facility] Comment on above: CUT-OFF POINTS HAVE [...] (Bld) [Entitic vol] 10.9 fL 9.5-13.5 [facility] Platelets Auto (Bld) [#/Vol] on 05-10-2024 Platelets (Bld) [#/Vol] 144 10 3/uL Low 150-450 [facility] Prothrombin time (PT)on PT Coag (PPP) [Time] 13.8 s High 9.0-11.6 [facility] RBC Auto (Bld) [#/Vol]on RBC (Bld) [#/Vol] 4.25 10 6/uL 4.20-5.40 [facility] Serum or plasma albumin/glob ulin mass ratioon 05-10-2024 Albumin/Globulin [Mass ratio] 1.1 {ratio} [facility] Serum or plasma anion gap de terminationon 05-10-2024 Anion gap [Moles/Vol] 9.9 mmol/L [facility] Office Visiton 05-01-2024 Follow-up visit [id number] Zoraida Barrios 1935 F Date Provider Department Center 05/01/2024 AALIYAH HENDERSON CARD [facility] Family History Problem Relation Age of Onset Hypertension Mother Family Status - Relation Status Age at Mother Level of Service:83495 [place] OFFICE/OUTPATIENT ESTABLISHED LOW MDM 20 MIN Normal [facility] Basophils/100 WBC Manual cnt (Bld)on 04-25-2024 Basophils/100 WBC (Bld) 0.0 % Low 0.2-2.0 F [facility] Eosinophils/100 WBC Manual c nt (Bld)on 04-25-2024 Eosinophils/100 WBC (Bld) 4.0 % 0.9-7.0 [facility] Erythrocyte distribution wid th Auto (RBC) [Ratio]on 04-25-2024 Erythrocyte distribution width (RBC) [Ratio] 14.7 % 11.0-15.0 [facility] Estimated glomerular filtrat ion rate (GFR) non- Americanon 04-25-2024 GFR/1.73 sq M.predicted among non-blacks MDRD (S/P/Bld) [Vol rate/Area] 42 mL/min/{1.73_m2} Low >=60 [facility] Globulin Calc (S) [Mass/Vol] on 04-25-2024 Globulin (S) [Mass/Vol] 3.4 g/dL F [facility] Hematocrit Auto (Bld) [Volum e fraction]on 04-25-2024 Hematocrit (Bld) [Volume fraction] 43.1 % 36.0-48.0 [facility] Hemoglobin [Mass/volume] in Bloodon 04-25-2024 Hemoglobin (Bld) [Mass/Vol] 13.8 g/dL 12.0-16.0 [facility] INR in Platelet poor plasma by Coagulation assayon 04-25-2024 INR Coag (PPP) [Relative time] 1.31 {INR} [facility] Comment on above: DESIRED INR:2.0-3.0 CONDITIONS NOT LISTED BELOW2.5-3.5 FOR PROSTHETIC HEART VALVE REPLACEMENT2.5-3.5 RECURRENT THROMBOSIS Laboratory - Chemistry and C hemistry - challengeon 04-25-2024 Albumin [Mass/Vol] 4.0 g/dL 3.4-5.0 [facility] ALP [Catalytic activity/Vol] 63 U/L 46-116 [facility] ALT [Catalytic activity/Vol] 18 U/L 14-59 [facility] AST [Catalytic activity/Vol] 14 U/L Low 15-37 [facility] Bilirubin [Mass/Vol] 0.7 mg/dL 0.2-1.0 [facility] Calcium [Mass/Vol] 9.6 mg/dL 8.5-10.1 [facility] Chloride [Moles/Vol] 104 mmol/L 98-107 [facility] CO2 [Moles/Vol] 29.2 mmol/L 21.0-32.0 [facility] Creatinine [Mass/Vol] 1.21 mg/dL High 0.55-1.02 [facility] GFR/1.73 sq M.predicted MDRD (S/P/Bld) [Vol rate/Area] 51 mL/min/{1.73_m2} Low >=60 [facility] Glucose [Mass/Vol] 136 mg/dL High 74-106 [facility] Natriuretic peptide B (Bld) [Mass/Vol] 201.0 pg/mL <=1800.0 [facility] Potassium [Moles/Vol] 3.9 mmol/L 3.5-5.1 [facility] Protein [Mass/Vol] 7.4 g/dL 6.4-8.2 [facility] Sodium [Moles/Vol] 139 mmol/L 136-145 [facility] Urea nitrogen [Mass/Vol] 27.0 mg/dL High 7.0-18.0 [facility] Urea nitrogen/Creatinine [Mass ratio] 22.3 mg/mg [facility] - Hematology and Cell countson 04-25-2024 Band form neutrophils/100 WBC (Bld) 4.0 % 0-5 [facility] Lymphocytes/100 WBC (Bld) 15.0 % Low 20.5-60.0 [facility] Monocytes/100 WBC (Bld) 3.0 % 1.7-12.0 F [facility] Leukocytes [#/volume] correc gely for nucleated erythrocytes in Blood by Automated counon 04-25-2024 WBC corrected for nucl RBC Auto (Bld) [#/Vol] 13.3 10 3/uL High 4.0-11.0 [facility] MCH Auto (RBC) [Entitic mass ]on 04-25-2024 MCH (RBC) [Entitic mass] 30.1 pg 26.7-34.0 [facility] MCHC Auto (RBC) [Mass/Vol]on 04-25-2024 MCHC (RBC) [Mass/Vol] 32.0 g/dL 29.9-35.2 [facility] MCV Auto (RBC) [Entitic vol] on 04-25-2024 MCV (RBC) [Entitic vol] 93.9 fL 81.0-99.0 F [facility] No Panel Informationon 04-25 Troponin I High Sensitivity 6.5 pg/mL 4.0-51.3 [facility] Comment on above: CUT-OFF POINTS HAVE [...] Basophils (Manual) 0.00 10 3/uL 0.00-0.10 [facility] Band Neutrophils # (Manual) 0.5 10 3/uL High 0.0-0.3 [facility] Eosinophils # (Manual) 0.53 10 3/uL 0.00-0.70 [facility] Lymphocytes # (Manual) 1.99 10 3/uL 1.20-3.80 [facility] Monocytes # (Manual) 0.39 10 3/uL 0.30-0.80 [facility] Neutrophils # (Manual) 9.84 10 3/uL High 1.4-6.5 [facility] Platelet mean volume Auto (B ld) [Entitic vol]on 04-25-2024 Platelet mean volume (Bld) [Entitic vol] 10.4 fL 9.5-13.5 [facility] Platelets Auto (Bld) [#/Vol] on 04-25-2024 Platelets (Bld) [#/Vol] 145 10 3/uL Low 150-450 [facility] Prothrombin time (PT)on 04-08 PT Coag (PPP) [Time] 13.5 s High 9.0-11.6 [facility] RBC Auto (Bld) [#/Vol]on RBC (Bld) [#/Vol] 4.59 10 6/uL 4.20-5.40 [facility] Segmented neutrophils/100 WB C Manual cnt (Bld)on 04-25-2024 Segmented neutrophils/100 WBC (Bld) 74.0 % [facility] Serum or plasma albumin/glob ulin mass ratioon 04-25-2024 Albumin/Globulin [Mass ratio] 1.2 {ratio} [facility] Serum or plasma anion gap de terminationon 04-25-2024 Anion gap [Moles/Vol] 9.7 mmol/L [facility] Office Visiton 03-28-2024 Follow-up visit [id number] Zoraida Barrios 1935 F Date Provider Department Center 03/28/2024 AALIYAH HENDERSON CARD [facility] Family History Problem Relation Age of Onset Hypertension Mother Family Status - Relation Status Age at Mother Level of Service:45554 [place] OFFICE/OUTPATIENT ESTABLISHED LOW MDM 20 MIN Normal [facility] Basophils Auto (Bld) [#/Vol] on 12-28-2023 Basophils (Bld) [#/Vol] 0.2 10 3/uL 0.0-0.1 [facility] Basophils/100 WBC Auto (Bld) on 12-28-2023 Basophils/100 WBC (Bld) 3.4 % 0.2-2.0 F [facility] Eosinophils/100 WBC Auto (Bl d)on 12-28-2023 Eosinophils/100 WBC (Bld) 6.2 % 0.9-7.0 [facility] Erythrocyte distribution wid th Auto (RBC) [Ratio]on 12-28-2023 Erythrocyte distribution width (RBC) [Ratio] 14.8 % 11.0-15.0 [facility] Estimated glomerular filtrat ion rate (GFR) non- Americanon 12-28-2023 GFR/1.73 sq M.predicted among non-blacks MDRD (S/P/Bld) [Vol rate/Area] 46 mL/min/{1.73_m2} >=60 [facility] Hematocrit Auto (Bld) [Volum e fraction]on 12-28-2023 Hematocrit (Bld) [Volume fraction] 42.9 % 36.0-48.0 [facility] Hemoglobin [Mass/volume] in Bloodon 12-28-2023 Hemoglobin (Bld) [Mass/Vol] 13.7 g/dL 12.0-16.0 [facility] - Chemistry and C hemistry - challengeon 12-28-2023 Calcium [Mass/Vol] 9.7 mg/dL 8.5-10.1 [facility] Chloride [Moles/Vol] 106 mmol/L 98-107 [facility] CO2 [Moles/Vol] 26.1 mmol/L 21.0-32.0 [facility] Creatinine [Mass/Vol] 1.11 mg/dL 0.55-1.02 [facility] GFR/1.73 sq M.predicted MDRD (S/P/Bld) [Vol rate/Area] 56 mL/min/{1.73_m2} >=60 [facility] Glucose [Mass/Vol] 108 mg/dL 74-106 [facility] Potassium [Moles/Vol] 3.8 mmol/L 3.5-5.1 [facility] Sodium [Moles/Vol] 139 mmol/L 136-145 [facility] Urea nitrogen [Mass/Vol] 22.0 mg/dL 7.0-18.0 [facility] Urea nitrogen/Creatinine [Mass ratio] 19.8 mg/mg [facility] - Hematology and Cell countson 12-28-2023 Immature granulocytes/100 WBC (Bld) 0.5 % 0.0-0.5 [facility] Leukocytes [#/volume] correc gely for nucleated erythrocytes in Blood by Automated counon 12-28-2023 WBC corrected for nucl RBC Auto (Bld) [#/Vol] 6.0 10 3/uL 4.0-11.0 [facility] Lymphocytes Auto (Bld) [#/Vo l]on 12-28-2023 Lymphocytes (Bld) [#/Vol] 2.1 10 3/uL 1.2-3.8 [facility] Lymphocytes/100 WBC Auto (Bl d)on 12-28-2023 Lymphocytes/100 WBC (Bld) 34.9 % 20.5-60.0 [facility] MCH Auto (RBC) [Entitic mass ]on 12-28-2023 MCH (RBC) [Entitic mass] 30.0 pg 26.7-34.0 [facility] MCHC Auto (RBC) [Mass/Vol]on 12-28-2023 MCHC (RBC) [Mass/Vol] 31.9 g/dL 29.9-35.2 [facility] MCV Auto (RBC) [Entitic vol] on 12-28-2023 MCV (RBC) [Entitic vol] 93.9 fL 81.0-99.0 [facility] Monocytes Auto (Bld) [#/Vol] on 12-28-2023 Monocytes (Bld) [#/Vol] 0.9 10 3/uL 0.3-0.8 [facility] Monocytes/100 WBC Auto (Bld) on 12-28-2023 Monocytes/100 WBC (Bld) 15.1 % 1.7-12.0 F [facility] Neutrophils Auto (Bld) [#/Vo l]on 12-28-2023 Neutrophils (Bld) [#/Vol] 2.4 10 3/uL 1.4-6.5 [facility] Neutrophils/100 WBC Auto (Bl d)on 12-28-2023 Neutrophils/100 WBC (Bld) 39.9 % 43.0-75.0 [facility] No Panel Informationon 12-27 Eosinophils # (Auto) 0.4 10 3/uL 0.0-0.7 [facility] Immature Granulocyte # (Auto) 0.03 10 3/uL 0.00-0.03 [facility] Troponin I High Sensitivity 6.6 pg/mL 4.0-51.3 [facility] Comment on above: CUT-OFF POINTS HAVE [...] (Bld) [Entitic vol] 10.8 fL 9.5-13.5 [facility] Platelets Auto (Bld) [#/Vol] on 12-28-2023 Platelets (Bld) [#/Vol] 142 10 3/uL 150-450 [facility] RBC Auto (Bld) [#/Vol]on RBC (Bld) [#/Vol] 4.57 10 6/uL 4.20-5.40 [facility] Serum or plasma anion gap de terminationon 12-28-2023 Anion gap [Moles/Vol] 10.7 mmol/L Fi [facility] PROF CHEM 8 (BAS METB)on Anion gap [Moles/Vol] 12.5 mmol/L Normal Th [facility] Comment on above: Performed By: #### B MP #### [facility] [address] [address] [address] Arden Magallon Calcium [Mass/Vol] 10.0 mg/dL Normal 8.5-10.1 [facility] Comment on above: Performed By: #### B MP #### [facility] [address] [address] [address] Arden Magallon Chloride [Moles/Vol] 105 mmol/L Normal 98-107 [facility] Comment on above: Performed By: #### B MP #### [facility] [address] [address] [address] Arden Magallon CO2 [Moles/Vol] 29.9 mmol/L Normal 21.0-32.0 [facility] Comment on above: Performed By: #### B MP #### [facility] [address] [address] [address] Arden Magallon Creatinine [Mass/Vol] 1.26 mg/dL Critically high 0.55-1.02 [facility] Comment on above: Performed By: #### B MP #### [facility] [address] [address] [address] Arden Magallon EGFR-AF PUERTO RICAN 49 mL/min/1.73m2 Critically low >=60 [facility] Comment on above: Performed By: #### B MP #### [facility] [address] [address] [address] Arden Magallon EGFR-NON AF PUERTO RICAN 40 mL/min/1.73m2 Critically low >=60 [facility] Comment on above: Performed By: #### B MP #### [facility] [address] [address] [address] Arden Magallon Glucose [Mass/Vol] 108 mg/dL Critically high 74-106 [facility] Comment on above: Performed By: #### B MP #### [facility] [address] [address] [address] Arden Magallon Potassium [Moles/Vol] 3.4 mmol/L Critically low 3.5-5.1 [facility] Comment on above: Performed By: #### B MP #### [facility] [address] [place] [address] Dr. Arden Magallon Sodium [Moles/Vol] 144 mmol/L Normal 136-145 [facility] Comment on above: Performed By: #### B MP #### [facility] [address] [place], [place] [id number] Dr. Arden Magallon Urea nitrogen [Mass/Vol] 28.0 mg/dL Critically high 7.0-18.0 [facility] Comment on above: Performed By: #### B MP #### [facility] [address] [place] [address] Dr. Arden Magallon Urea nitrogen/Creatinine [Mass ratio] 22.2 mg/mg Normal [facility] Comment on above: Performed By: #### B MP #### [facility] [address] [place] [address] Dr. Arden Magallon CARDIAC CINDY 3-6on 2 CK [Catalytic activity/Vol] 27 U/L Normal 26-192 [facility] Comment on above: Performed By: #### B MP #### [facility] [address] [place] [address] Dr. Arden Magallon CK.MB [Mass/Vol] 0.84 ng/mL Normal <=3.60 [facility] Comment on above: Performed By: #### B MP #### [facility] [address] [place] [address] Dr. Arden Magallon HSTROP 12.4 pg/mL Normal 4.0-51.3 [facility] Comment on above: Result Comment: CUT- OFF POINTS HAVE BEEN ESTABLISHED BASED ON THE FOURTH UNIVERSAL DEFINITIONS OF MYOCARDIAL INFARCTION. THE UPPER REFERENCE LIMIT (URL) OF TROPONIN, DEFINED THE 99TH PERCENTILE OF cTnI DISTRIBUTION IN A REFERENCE POPULATION, HAS BEEN CONFIRMED THE DECISION THRESHOLD FOR CO DIAGNOSIS. Performed By: #### B MP #### [facility] [address] [place] [address] Dr. Arden Magallon CARDIAC CINDY ADMITon 12-23-2 022 CK [Catalytic activity/Vol] 42 U/L Normal 26-192 [facility] Comment on above: Performed By: #### B MP #### [facility] [address] [place] [address] Dr. Arden Magallon CK.MB [Mass/Vol] 0.82 ng/mL Normal <=3.60 [facility] Comment on above: Performed By: #### B MP #### [facility] [address] [place] [address] Dr. Arden Magallon HSTROP 9.8 pg/mL Normal 4.0-51.3 [facility] Comment on above: Result Comment: CUT- OFF POINTS HAVE BEEN ESTABLISHED BASED ON THE FOURTH UNIVERSAL DEFINITIONS OF MYOCARDIAL INFARCTION. THE UPPER REFERENCE LIMIT (URL) OF TROPONIN, DEFINED THE 99TH PERCENTILE OF cTnI DISTRIBUTION IN A REFERENCE POPULATION, HAS BEEN CONFIRMED THE DECISION THRESHOLD FOR CO DIAGNOSIS. Performed By: #### B MP #### [facility] [address] [place] [address] Dr. Arden Magallon IKE 50 ng/mL Normal 9-82 [facility] Comment on above: Performed By: #### B MP #### [facility] [address] [place] [address] Dr. Arden Magallon CBC AUTO DIFFon 09-30-2022 BASO # 0.2 103/ul Critically high 0.0-0.1 [facility] Comment on above: Performed By: #### C BC #### [facility] [address] [place] [address] Dr. Arden Magallon Basophils/100 WBC (Bld) 2.2 % Critically high 0.2-2.0 [facility] Comment on above: Performed By: #### C BC #### [facility] [address] [place] [address] Dr. Arden Magallon EO # 1.3 103/ul Critically high 0.0-0.7 [facility] Comment on above: Performed By: #### C BC #### [facility] [address] [place] [address] Dr. Arden Magallon Eosinophils/100 WBC (Bld) 16.5 % Critically high 0.9-7.0 [facility] Comment on above: Performed By: #### C BC #### [facility] [address] [place] [address] Dr. Arden Magallon Erythrocyte distribution width (RBC) [Ratio] 14.3 % Normal 11.0-15.0 [facility] Comment on above: Performed By: #### C BC #### [facility] [address] [place] [address] Dr. Arden Magallon Hematocrit (Bld) [Volume fraction] 38.3 % Normal 36.0-48.0 [facility] Comment on above: Performed By: #### C BC #### [facility] [address] [place] [address] Dr. Arden Magallon Hemoglobin (Bld) [Mass/Vol] 12.6 g/dL Normal 12.0-16.0 [facility] Comment on above: Performed By: #### C BC #### [facility] [address] [place] [address] Dr. Arden Magallon IG # 0.03 10e3/ul Normal 0.00-0.03 [facility] Comment on above: Performed By: #### C BC #### [facility] [address] [place] [address] Dr. Arden Magallon IG % 0.4 % Normal 0.0-0.5 [facility] Comment on above: Performed By: #### C BC #### [facility] [address] [place] [address] Dr. Arden Magallon LYMPH # 2.4 103/ul Normal 1.2-3.8 [facility] Comment on above: Performed By: #### C BC #### [facility] [address] [place] [address] Dr. Arden Magallon Lymphocytes/100 WBC (Bld) 30.0 % Normal 20.5-60.0 [facility] Comment on above: Performed By: #### C BC #### [facility] [address] [place] [address] Dr. Arden Magallon MANUAL DIFF REQ NO Normal [facility] Comment on above: Performed By: #### C BC #### [facility] [address] [address] [address] Arden Magallon MCH (RBC) [Entitic mass] 30.7 pg Normal 26.7-34.0 [facility] Comment on above: Performed By: #### C BC #### [facility] [address] [address] [address] Arden Magallon MCHC (RBC) [Mass/Vol] 32.9 g/dL Normal 29.9-35.2 [facility] Comment on above: Performed By: #### C BC #### [facility] [address] [address] [address] Arden Magallon MCV (RBC) [Entitic vol] 93.4 fL Normal 81.0-99.0 [facility] Comment on above: Performed By: #### C BC #### [facility] [address] [place] [address] Dr. Arden Magallon MONO # 1.1 103/ul Critically high 0.3-0.8 [facility] Comment on above: Performed By: #### C BC #### [facility] [address] [address] [address] Arden Magallon Monocytes/100 WBC (Bld) 14.2 % Critically high 1.7-12. 0 [facility] Comment on above: Performed By: #### C BC #### [facility] [address] [place] [address] Dr. Arden Magallon NEUT # 2.9 103/ul Normal 1.4-6.5 [facility] Comment on above: Performed By: #### C BC #### [facility] [address] [place] [address] Dr. Arden Magallon Neutrophils/100 WBC (Bld) 36.7 % Critically low 43.0-75.0 [facility] Comment on above: Performed By: #### C BC #### [facility] [address] [place] [address] Dr. Arden Magallon Platelet mean volume (Bld) [Entitic vol] 11.4 fL Normal 9.5-13.5 [facility] Comment on above: Performed By: #### C BC #### [facility] [address] [address] [address] Arden Magallon PLT 162 103/ul Normal 150-450 [facility] Comment on above: Performed By: #### C BC #### [facility] [address] [address] [address] Arden Magallon RBC 4.10 106/ul Critically low 4.20-5.40 [facility] Comment on above: Performed By: #### C BC #### [facility] [address] [address] [address] Arden Magallon WBC 8.0 103/ul Normal 4.0-11.0 [facility] Comment on above: Performed By: #### C BC #### [facility] [address] [address] [address] Arden Magallon PROF CHEM 8 (BAS METB)on Anion gap [Moles/Vol] 11.8 mmol/L Normal Th [facility] Comment on above: Performed By: #### B MP #### [facility] [address] [address] [address] Arden Magallon Calcium [Mass/Vol] 9.7 mg/dL Normal 8.5-10.1 [facility] Comment on above: Performed By: #### B MP #### [facility] [address] [address] [address] Arden Magallon Chloride [Moles/Vol] 105 mmol/L Normal 98-107 [facility] Comment on above: Performed By: #### B MP #### [facility] [address] [address] [address] Arden Magallon CO2 [Moles/Vol] 25.0 mmol/L Normal 21.0-32.0 [facility] Comment on above: Performed By: #### B MP #### [facility] [address] [address] [address] Arden Magallon Creatinine [Mass/Vol] 1.07 mg/dL Critically high 0.55-1.02 [facility] Comment on above: Performed By: #### B MP #### [facility] [address] [address] [address] Arden Magallon EGFR-AF PUERTO RICAN 59 mL/min/1.73m2 Critically low >=60 [facility] Comment on above: Performed By: #### B MP #### [facility] [address] [address] [address] Arden Magallon EGFR-NON AF PUERTO RICAN 49 mL/min/1.73m2 Critically low >=60 [facility] Comment on above: Performed By: #### B MP #### [facility] [address] [address] [address] Arden Magallon Glucose [Mass/Vol] 106 mg/dL Normal 74-106 [facility] Comment on above: Performed By: #### B MP #### [facility] [address] [address] [address] Arden Magallon Potassium [Moles/Vol] 3.8 mmol/L Normal 3.5-5.1 [facility] Comment on above: Performed By: #### B MP #### [facility] [address] [address] [address] Arden Magallon Sodium [Moles/Vol] 138 mmol/L Normal 136-145 [facility] Comment on above: Performed By: #### B MP #### [facility] [address] [address] [address] Arden Magallon Urea nitrogen [Mass/Vol] 18.0 mg/dL Normal 7.0-18.0 [facility] Comment on above: Performed By: #### B MP #### [facility] [address] [address] [address] Arden Magallon Urea nitrogen/Creatinine [Mass ratio] 16.8 mg/mg Normal [facility] Comment on above: Performed By: #### B MP #### [facility] [address] [address] [address] Arden Magallon CBC AUTO DIFFon 09-26-2022 BASO # 0.2 103/ul Critically high 0.0-0.1 [facility] Comment on above: Performed By: #### C BC #### [facility] [address] [address] [address] Arden Magallon Basophils/100 WBC (Bld) 2.1 % Critically high 0.2-2.0 [facility] Comment on above: Performed By: #### C BC #### [facility] [address] [address] [address] Arden Magallon EO # 1.5 103/ul Critically high 0.0-0.7 [facility] Comment on above: Performed By: #### C BC #### [facility] [address] [address] [address] Arden Magallon Eosinophils/100 WBC (Bld) 16.6 % Critically high 0.9-7.0 [facility] Comment on above: Performed By: #### C BC #### [facility] [address] [place] [address] Dr. Arden Magallon Erythrocyte distribution width (RBC) [Ratio] 14.1 % Normal 11.0-15.0 [facility] Comment on above: Performed By: #### C BC #### [facility] [address] [address] [address] Arden Magallon Hematocrit (Bld) [Volume fraction] 37.7 % Normal 36.0-48.0 [facility] Comment on above: Performed By: #### C BC #### [facility] [address] [address] [address] Arden Magallon Hemoglobin (Bld) [Mass/Vol] 12.5 g/dL Normal 12.0-16.0 [facility] Comment on above: Performed By: #### C BC #### [facility] [address] [address] [address] Arden Magallon IG # 0.04 10e3/ul Critically high 0.00-0.03 [facility] Comment on above: Performed By: #### C BC #### [facility] [address] [place] [address] Dr. Arden Magallon IG % 0.4 % Normal 0.0-0.5 [facility] Comment on above: Performed By: #### C BC #### [facility] [address] [address] [address] Arden Magallon LYMPH # 1.8 103/ul Normal 1.2-3.8 [facility] Comment on above: Performed By: #### C BC #### [facility] [address] [place] [address] Dr. Arden Magallon Lymphocytes/100 WBC (Bld) 19.6 % Critically low 20.5-60.0 [facility] Comment on above: Performed By: #### C BC #### [facility] [address] [place] [address] Dr. Arden Magallon MANUAL DIFF REQ NO Normal [facility] Comment on above: Performed By: #### C BC #### [facility] [address] [place] [address] Dr. Arden Magallon MCH (RBC) [Entitic mass] 31.1 pg Normal 26.7-34.0 [facility] Comment on above: Performed By: #### C BC #### [facility] [address] [place] [address] Dr. Arden Magallon MCHC (RBC) [Mass/Vol] 33.2 g/dL Normal 29.9-35.2 [facility] Comment on above: Performed By: #### C BC #### [facility] [address] [place] [address] Dr. Arden Magallon MCV (RBC) [Entitic vol] 93.8 fL Normal 81.0-99.0 [facility] Comment on above: Performed By: #### C BC #### [facility] [address] [place] [address] Dr. Arden Magallon MONO # 1.1 103/ul Critically high 0.3-0.8 [facility] Comment on above: Performed By: #### C BC #### [facility] [address] [place] [address] Dr. Arden Magallon Monocytes/100 WBC (Bld) 12.1 % Critically high 1.7-12. 0 [facility] Comment on above: Performed By: #### C BC #### [facility] [address] [address] [address] Arden Magallon NEUT # 4.6 103/ul Normal 1.4-6.5 [facility] Comment on above: Performed By: #### C BC #### [facility] [address] [address] [address] Arden Magallon Neutrophils/100 WBC (Bld) 49.2 % Normal 43.0-75.0 [facility] Comment on above: Performed By: #### C BC #### [facility] [address] [place] [address] Dr. Arden Magallon Platelet mean volume (Bld) [Entitic vol] 10.8 fL Normal 9.5-13.5 [facility] Comment on above: Performed By: #### C BC #### [facility] [address] [place] [address] Dr. Arden Magallon PLT 149 103/ul Critically low 150-450 [facility] Comment on above: Performed By: #### C BC #### [facility] [address] [address] [address] Arden Magallon RBC 4.02 106/ul Critically low 4.20-5.40 [facility] Comment on above: Performed By: #### C BC #### [facility] [address] [place] [address] Dr. Arden Magallon WBC 9.3 103/ul Normal 4.0-11.0 [facility] Comment on above: Performed By: #### C BC #### [facility] [address] [place] [address] Dr. Arden Magallon Covid-19 PCR ([facility]on 09-08 SARS-CoV-2 (COVID-19) RNA ISABELLA+probe Ql (Unsp spec) Not detected Normal NOT DETECTED [facility] Comment on above: Result Comment: This test is not yet approved or cleared by the [place] FDA. When there are no FDA-approved or cleared tests available, and other criteria are met, FDA can make tests available under an emergency access mechanism called an Emergency Use Authorization (EUA). The EUA for this test is supported by the Field Handyman of Health and Human Service's (HHS's) declaration [...] SARS-CoV-2. Performed By: #### C BC #### [facility] [address] [place] [address] Dr. Arden Magallon INFLUENZA A AND B [facility] 09-26 [facility] SEE BELOW Normal [facility] Comment on above: Result Comment: Nega tive for Flu A protein angiten. Infection due to Flu A cannot be ruled out. Flu A angiten in the sample may be below the detection limit of the test. Performed By: #### C BC #### [facility] [address] [place] [address] Dr. Arden Magallon [facility]FL[facility]OPPER [facility] SEE BELOW Normal [facility] Comment on above: Result Comment: Nega tive for Flu B protein antigen. Infection due to Flu B cannot be ruled out. Flu B antigen in the sample may be below the detection limit of the test. Performed By: #### C BC #### [facility] [address] [place] [address] Dr. Arden Magallon INFLUENZA A AG Negative Normal NEGATIVE SEE COMMENT [facility] Comment on above: Performed By: #### C BC #### [facility] [address] [place] [address] Dr. Arden Magallon INFLUENZA B AG Negative Normal NEGATIVE SEE COMMENT [facility] Comment on above: Performed By: #### C BC #### [facility] [address] [place] [address] Dr. Arden Magallon INTERNAL CONTROLS Within Normal Limits Normal Wi thin Normal Limits [facility] Comment on above: Performed By: #### C BC #### [facility] [address] [address] [address] Arden Magallon PROF CHEM 8 (BAS METB)on Anion gap [Moles/Vol] 10.8 mmol/L Normal Th [facility] Comment on above: Performed By: #### P T, DDIM #### [facility] [address] [address] [address] Arden Magallon Calcium [Mass/Vol] 9.3 mg/dL Normal 8.5-10.1 [facility] Comment on above: Performed By: #### P T, DDIM #### [facility] [address] [address] [address] Arden Magallon Chloride [Moles/Vol] 107 mmol/L Normal 98-107 [facility] Comment on above: Performed By: #### P T, DDIM #### [facility] [address] [place] [address] Dr. Arden Magallon CO2 [Moles/Vol] 28.0 mmol/L Normal 21.0-32.0 [facility] Comment on above: Performed By: #### P T, DDIM #### [facility] [address] [place] [address] Dr. Arden Magallon Creatinine [Mass/Vol] 0.98 mg/dL Normal 0.55-1.02 [facility] Comment on above: Performed By: #### P T, DDIM #### [facility] [address] [place] [address] Dr. Arden Magallon EGFR-AF PUERTO RICAN >60 Normal >=60 [facility] Comment on above: Performed By: #### P T, DDIM #### [facility] [address] [place] [address] Dr. Arden Magallon EGFR-NON AF PUERTO RICAN 54 mL/min/1.73m2 Critically low >=60 [facility] Comment on above: Performed By: #### P T, DDIM #### [facility] [address] [place] [address] Dr. Arden Magallon Glucose [Mass/Vol] 111 mg/dL Critically high 74-106 T [facility] Comment on above: Performed By: #### P T, DDIM #### [facility] [address] [address] [address] Arden Magallon Potassium [Moles/Vol] 3.8 mmol/L Normal 3.5-5.1 [facility] Comment on above: Performed By: #### P T, DDIM #### [facility] [address] [place] [address] Dr. Arden Magallon Sodium [Moles/Vol] 142 mmol/L Normal 136-145 [facility] Comment on above: Performed By: #### P T, DDIM #### [facility] [address] [place] [address] Dr. Arden Magallon Urea nitrogen [Mass/Vol] 15.0 mg/dL Normal 7.0-18.0 [facility] Comment on above: Performed By: #### P T, DDIM #### [facility] [address] [place] [address] Dr. Arden Magallon Urea nitrogen/Creatinine [Mass ratio] 15.3 mg/mg Normal [facility] Comment on above: Performed By: #### P T, DDIM #### [facility] [address] [place] [address] Dr. Arden Magallon XR CHEST 1 Von [...] by: HARJINDER RAMIREZ Date: 2022-09-26 10:22 Normal [facility] CBC AUTO DIFFon 09-21-2022 BASO # 0.2 103/ul Critically high 0.0-0.1 [facility] Comment on above: Performed By: #### C BC #### [facility] [address] [address] [address] Arden Magallon Basophils/100 WBC (Bld) 2.0 % Normal 0.2-2.0 [facility] Comment on above: Performed By: #### C BC #### [facility] [address] [address] [address] Arden Magallon EO # 0.8 103/ul Critically high 0.0-0.7 [facility] Comment on above: Performed By: #### C BC #### [facility] [address] [address] [address] Arden Magallon Eosinophils/100 WBC (Bld) 9.7 % Critically high 0.9-7.0 [facility] Comment on above: Performed By: #### C BC #### [facility] [address] [place] [address] Dr. Arden Magallon Erythrocyte distribution width (RBC) [Ratio] 14.2 % Normal 11.0-15.0 [facility] Comment on above: Performed By: #### C BC #### [facility] [address] [place] [address] Dr. Arden Magallon Hematocrit (Bld) [Volume fraction] 39.2 % Normal 36.0-48.0 [facility] Comment on above: Performed By: #### C BC #### [facility] [address] [place] [address] Dr. Arden Magallon Hemoglobin (Bld) [Mass/Vol] 12.7 g/dL Normal 12.0-16.0 [facility] Comment on above: Performed By: #### C BC #### [facility] [address] [address] [address] Arden Magallon IG # 0.04 10e3/ul Critically high 0.00-0.03 [facility] Comment on above: Performed By: #### C BC #### [facility] [address] [place] [address] Dr. Arden Magallon IG % 0.5 % Normal 0.0-0.5 [facility] Comment on above: Performed By: #### C BC #### [facility] [address] [place] [address] Dr. Arden Magallon LYMPH # 1.7 103/ul Normal 1.2-3.8 [facility] Comment on above: Performed By: #### C BC #### [facility] [address] [place] [address] Dr. Arden Magallon Lymphocytes/100 WBC (Bld) 19.2 % Critically low 20.5-60.0 [facility] Comment on above: Performed By: #### C BC #### [facility] [address] [place] [address] Dr. Arden Magallon MANUAL DIFF REQ NO Normal [facility] Comment on above: Performed By: #### C BC #### [facility] [address] [place] [address] Dr. Arden Magallon MCH (RBC) [Entitic mass] 31.1 pg Normal 26.7-34.0 [facility] Comment on above: Performed By: #### C BC #### [facility] [address] [place] [address] Dr. Arden Magallon MCHC (RBC) [Mass/Vol] 32.4 g/dL Normal 29.9-35.2 [facility] Comment on above: Performed By: #### C BC #### [facility] [address] [place] [address] Dr. Arden Magallon MCV (RBC) [Entitic vol] 96.1 fL Normal 81.0-99.0 [facility] Comment on above: Performed By: #### C BC #### [facility] [address] [place] [address] Dr. Arden Magallon MONO # 0.8 103/ul Normal 0.3-0.8 [facility] Comment on above: Performed By: #### C BC #### [facility] [address] [place] [address] Dr. Arden Magallon Monocytes/100 WBC (Bld) 9.5 % Normal 1.7-12.0 [facility] Comment on above: Performed By: #### C BC #### [facility] [address] [place] [address] Dr. Arden Magallon NEUT # 5.2 103/ul Normal 1.4-6.5 [facility] Comment on above: Performed By: #### C BC #### [facility] [address] [address] [address] Arden Magallon Neutrophils/100 WBC (Bld) 59.1 % Normal 43.0-75.0 [facility] Comment on above: Performed By: #### C BC #### [facility] [address] [place] [address] Dr. Arden Magallon Platelet mean volume (Bld) [Entitic vol] 11.0 fL Normal 9.5-13.5 [facility] Comment on above: Performed By: #### C BC #### [facility] [address] [place] [address] Dr. Arden Magallon PLT 167 103/ul Normal 150-450 [facility] Comment on above: Performed By: #### C BC #### [facility] [address] [place] [address] Dr. Arden Magallon RBC 4.08 106/ul Critically low 4.20-5.40 [facility] Comment on above: Performed By: #### C BC #### [facility] [address] [place] [address] Dr. Arden Magallon WBC 8.7 103/ul Normal 4.0-11.0 [facility] Comment on above: Performed By: #### C BC #### [facility] [address] [place] [address] Dr. Arden Magallon PROF CHEM 8 (BAS METB)on Anion gap [Moles/Vol] 10.4 mmol/L Normal [facility] Comment on above: Performed By: #### B MP #### [facility] [address] [place] [address] Dr. Arden Magallon Calcium [Mass/Vol] 9.9 mg/dL Normal 8.5-10.1 [facility] Comment on above: Performed By: #### B MP #### [facility] [address] [address] [address] Arden Magallon Chloride [Moles/Vol] 104 mmol/L Normal 98-107 [facility] Comment on above: Performed By: #### B MP #### [facility] [address] [address] [address] Arden Magallon CO2 [Moles/Vol] 28.0 mmol/L Normal 21.0-32.0 [facility] Comment on above: Performed By: #### B MP #### [facility] [address] [address] [address] Arden Magallon Creatinine [Mass/Vol] 1.20 mg/dL Critically high 0.55-1.02 [facility] Comment on above: Performed By: #### B MP #### [facility] [address] [address] [address] Arden Magallon EGFR-AF PUERTO RICAN 52 mL/min/1.73m2 Critically low >=60 [facility] Comment on above: Performed By: #### B MP #### [facility] [address] [address] [address] Arden Magallon EGFR-NON AF PUERTO RICAN 43 mL/min/1.73m2 Critically low >=60 [facility] Comment on above: Performed By: #### B MP #### [facility] [address] [address] [address] Arden Magallon Glucose [Mass/Vol] 133 mg/dL Critically high 74-106 [facility] Comment on above: Performed By: #### B MP #### [facility] [address] [address] [address] Arden Magallon Potassium [Moles/Vol] 3.4 mmol/L Critically low 3.5-5.1 [facility] Comment on above: Performed By: #### B MP #### [facility] [address] [address] [address] Arden Magallon Sodium [Moles/Vol] 139 mmol/L Normal 136-145 [facility] Comment on above: Performed By: #### B MP #### [facility] [address] [place] [address] Dr. Arden Magallon Urea nitrogen [Mass/Vol] 19.0 mg/dL Critically high 7.0-18.0 [facility] Comment on above: Performed By: #### B MP #### [facility] [address] [place] [address] Dr. Arden Magallon Urea nitrogen/Creatinine [Mass ratio] 15.8 mg/mg Normal [facility] Comment on above: Performed By: #### B MP #### [facility] [address] [place] [address] Dr. Arden Magallon TSHon 09-21-2022 TSH 1.918 uIU/mL Normal 0.358-3.740 [facility] Comment on above: Performed By: #### B MP #### [facility] [address] [place] [address] Dr. Arden Magallon BNPon 09-18-2022 Natriuretic peptide B (Bld) [Mass/Vol] 366.0 pg/mL Normal <=1,800.0 [facility] Comment on above: Performed By: #### B SWATCH CUTTER, CMP #### [facility] [address] [place] [address] Dr. Arden Magallon CBC AUTO DIFFon 09-18-2022 BASO # 0.1 103/ul Normal 0.0-0.1 [facility] Comment on above: Performed By: #### C BC #### [facility] [address] [place] [address] Dr. Arden Magallon Basophils/100 WBC (Bld) 1.7 % Normal 0.2-2.0 [facility] Comment on above: Performed By: #### C BC #### [facility] [address] [place] [address] Dr. Arden Magallon EO # 0.7 103/ul Normal 0.0-0.7 [facility] Comment on above: Performed By: #### C BC #### [facility] [address] [place] [address] Dr. Arden Magallon Eosinophils/100 WBC (Bld) 9.1 % Critically high 0.9-7.0 [facility] Comment on above: Performed By: #### C BC #### [facility] [address] [place] [address] Dr. Arden Magallon Erythrocyte distribution width (RBC) [Ratio] 14.4 % Normal 11.0-15.0 [facility] Comment on above: Performed By: #### C BC #### [facility] [address] [place] [address] Dr. Arden Magallon Hematocrit (Bld) [Volume fraction] 39.0 % Normal 36.0-48.0 [facility] Comment on above: Performed By: #### C BC #### [facility] [address] [place] [address] Dr. Arden Magallon Hemoglobin (Bld) [Mass/Vol] 12.8 g/dL Normal 12.0-16.0 [facility] Comment on above: Performed By: #### C BC #### [facility] [address] [place] [address] Dr. Arden Magallon IG # 0.02 10e3/ul Normal 0.00-0.03 [facility] Comment on above: Performed By: #### C BC #### [facility] [address] [place] [address] Dr. Arden Magallon IG % 0.3 % Normal 0.0-0.5 [facility] Comment on above: Performed By: #### C BC #### [facility] [address] [place] [address] Dr. Arden Magallon LYMPH # 1.8 103/ul Normal 1.2-3.8 [facility] Comment on above: Performed By: #### C BC #### [facility] [address] [place] [address] Dr. Arden Magallon Lymphocytes/100 WBC (Bld) 23.6 % Normal 20.5-60.0 [facility] Comment on above: Performed By: #### C BC #### [facility] [address] [place] [address] Dr. Arden Magallon MANUAL DIFF REQ NO Normal [facility] Comment on above: Performed By: #### C BC #### [facility] [address] [address] [address] Arden Magallon MCH (RBC) [Entitic mass] 31.0 pg Normal 26.7-34.0 [facility] Comment on above: Performed By: #### C BC #### [facility] [address] [address] [address] Arden Magallon MCHC (RBC) [Mass/Vol] 32.8 g/dL Normal 29.9-35.2 [facility] Comment on above: Performed By: #### C BC #### [facility] [address] [place] [address] Dr. Arden Magallon MCV (RBC) [Entitic vol] 94.4 fL Normal 81.0-99.0 [facility] Comment on above: Performed By: #### C BC #### [facility] [address] [place] [address] Dr. Arden Magallon MONO # 1.1 103/ul Critically high 0.3-0.8 [facility] Comment on above: Performed By: #### C BC #### [facility] [address] [place] [address] Dr. Arden Magallon Monocytes/100 WBC (Bld) 15.2 % Critically high 1.7-12. 0 [facility] Comment on above: Performed By: #### C BC #### [facility] [address] [place] [address] Dr. Arden Magallon NEUT # 3.8 103/ul Normal 1.4-6.5 [facility] Comment on above: Performed By: #### C BC #### [facility] [address] [place] [address] Dr. Arden Magallon Neutrophils/100 WBC (Bld) 50.1 % Normal 43.0-75.0 [facility] Comment on above: Performed By: #### C BC #### [facility] [address] [place] [address] Dr. Arden Magallon Platelet mean volume (Bld) [Entitic vol] 11.0 fL Normal 9.5-13.5 [facility] Comment on above: Performed By: #### C BC #### [facility] [address] [address] [address] Arden Magallon PLT 149 103/ul Critically low 150-450 [facility] Comment on above: Performed By: #### C BC #### [facility] [address] [place], [place] [address] Dr. Arden Magallon RBC 4.13 106/ul Critically low 4.20-5.40 [facility] Comment on above: Performed By: #### C BC #### [facility] [id number] Arden Magallon WBC 7.5 103/ul Normal 4.0-11.0 [facility] Comment on above: Performed By: #### C BC #### [facility] [address] [address] [address] Arden Magallon D-DIMERon 09-18-2022 D-DIMER 0.32 mg/L FEU Normal <=0.59 [facility] Comment on above: Performed By: #### P T, DDIM #### [facility] [address] [place] [address] Dr. Arden Magallon D-DIMER COMMENTS SEE BELOW Normal [facility] Comment on above: Result Comment: Incr eases [...] Performed By: #### P T, DDIM #### [facility] [address] [address] [address] Arden Magallon PROF 14(COMP METB)on 022 Albumin [Mass/Vol] 3.5 g/dL Normal 3.4-5.0 [facility] Comment on above: Performed By: #### B SWATCH CUTTER, CMP #### [facility] [address] [place] [address] Dr. Arden Magallon Albumin/Globulin [Mass ratio] 1.2 {ratio} Normal [facility] Comment on above: Performed By: #### B SWATCH CUTTER, CMP #### [facility] [address] [address] [address] Arden Magallon ALP [Catalytic activity/Vol] 57 U/L Normal 46-116 [facility] Comment on above: Performed By: #### B SWATCH CUTTER, CMP #### [facility] [address] [place] [address] Dr. Arden Magallon ALT [Catalytic activity/Vol] 16 U/L Normal 14-59 [facility] Comment on above: Performed By: #### B SWATCH CUTTER, CMP #### [facility] [address] [place] [address] Dr. Arden Magallon Anion gap [Moles/Vol] 9.1 mmol/L Normal [facility] Comment on above: Performed By: #### B SWATCH CUTTER, CMP #### [facility] [address] [place] [address] Dr. Arden Magallon AST [Catalytic activity/Vol] 17 U/L Normal 15-37 [facility] Comment on above: Performed By: #### B SWATCH CUTTER, CMP #### [facility] [address] [place] [address] Dr. Arden Magallon Bilirubin [Mass/Vol] 0.3 mg/dL Normal 0.2-1.0 [facility] Comment on above: Performed By: #### B SWATCH CUTTER, CMP #### [facility] [address] [place] [address] Dr. Arden Magallon Calcium [Mass/Vol] 9.6 mg/dL Normal 8.5-10.[address] [facility] Comment on above: Performed By: #### B SWATCH CUTTER, CMP #### [facility] [address] [place] [address] Dr. Arden Magallon Chloride [Moles/Vol] 106 mmol/L Normal 98-107 [facility] Comment on above: Performed By: #### B SWATCH CUTTER, CMP #### [facility] [address] [address] [address] Arden Magallon CO2 [Moles/Vol] 24.9 mmol/L Normal 21.0-32.0 [facility] Comment on above: Performed By: #### B SWATCH CUTTER, CMP #### [facility] [address] [address] [address] Arden Magallon Creatinine [Mass/Vol] 1.06 mg/dL Critically high 0.55-1.02 [facility] Comment on above: Performed By: #### B SWATCH CUTTER, CMP #### [facility] [address] [address] [address] Arden Magallon EGFR-AF PUERTO RICAN =60 Normal >=60 [facility] Comment on above: Performed By: #### B SWATCH CUTTER, CMP #### [facility] [address] [address] [address] Arden Magallon EGFR-NON AF PUERTO RICAN 49 mL/min/1.73m2 Critically low >=60 [facility] Comment on above: Performed By: #### B SWATCH CUTTER, CMP #### [facility] [address] [place] [address] Dr. Arden Magallon Globulin (S) [Mass/Vol] 3.0 g/dL Normal [facility] Comment on above: Performed By: #### B SWATCH CUTTER, CMP #### [facility] [address] [address] [address] Arden Magallon Glucose [Mass/Vol] 111 mg/dL Critically high 74-106 [facility] Comment on above: Performed By: #### B SWATCH CUTTER, CMP #### [facility] [address] [address] [address] Arden Magallon Potassium [Moles/Vol] 4.0 mmol/L Normal 3.5-5.1 [facility] Comment on above: Performed By: #### B SWATCH CUTTER, CMP #### [facility] [address] [address] [address] Arden Magallon Protein [Mass/Vol] 6.5 g/dL Normal 6.4-8.2 [facility] Comment on above: Performed By: #### B SWATCH CUTTER, CMP #### [facility] [id number] Arden Magallon Sodium [Moles/Vol] 136 mmol/L Normal 136-145 [facility] Comment on above: Performed By: #### B SWATCH CUTTER, CMP #### [facility] [address] [address] [address] Arden Magallon Urea nitrogen [Mass/Vol] 16.0 mg/dL Normal 7.0-18.0 [facility] Comment on above: Performed By: #### B SWATCH CUTTER, CMP #### [facility] [address] [address] [address] Arden Magallon Urea nitrogen/Creatinine [Mass ratio] 15.1 mg/mg Normal [facility] Comment on above: Performed By: #### B SWATCH CUTTER, CMP #### [facility] [address] [address] [address] Arden Magallon TROPONIN, HIGH SENSITIVITYon 09-18-2022 HSTROP 8.3 pg/mL Normal 4.0-51.3 [facility] Comment on above: Result Comment: CUT- OFF POINTS HAVE BEEN ESTABLISHED BASED ON THE FOURTH UNIVERSAL DEFINITIONS OF MYOCARDIAL INFARCTION. THE UPPER REFERENCE LIMIT (URL) OF TROPONIN, DEFINED THE 99TH PERCENTILE OF cTnI DISTRIBUTION IN A REFERENCE POPULATION, HAS BEEN CONFIRMED THE DECISION THRESHOLD FOR CO DIAGNOSIS. Performed By: #### B SWATCH CUTTER, CMP #### [facility] [address] [address] [address] Arden Magallon XR CHEST 1 Von [...] BERNIE NAVARRO Date: 2022-09-18 16:11 Normal [facility] CBC AUTO DIFFon 09-11-2022 BASO # 0.1 103/ul Normal 0.0-0.1 [facility] Comment on above: Performed By: #### B MP #### [facility] [address] [address] [address] Arden Magallon Basophils/100 WBC (Bld) 2.3 % Critically high 0.2-2.0 [facility] Comment on above: Performed By: #### B MP #### [facility] [address] [address] [address] Arden Magallon EO # 0.5 103/ul Normal 0.0-0.7 [facility] Comment on above: Performed By: #### B MP #### [facility] [address] [address] [address] Arden Magallon Eosinophils/100 WBC (Bld) 8.0 % Critically high 0.9-7.0 [facility] Comment on above: Performed By: #### B MP #### [facility] [address] [address] [address] Arden Magallon Erythrocyte distribution width (RBC) [Ratio] 13.8 % Normal 11.0-15.0 [facility] Comment on above: Performed By: #### B MP #### [facility] [address] [place] [address] Dr. Arden Magallon Hematocrit (Bld) [Volume fraction] 40.5 % Normal 36.0-48.0 [facility] Comment on above: Performed By: #### B MP #### [facility] [address] [address] [address] Arden Magallon Hemoglobin (Bld) [Mass/Vol] 13.5 g/dL Normal 12.0-16.0 [facility] Comment on above: Performed By: #### B MP #### [facility] [address] [address] [address] Arden Magallon IG # 0.01 10e3/ul Normal 0.00-0.03 [facility] Comment on above: Performed By: #### B MP #### [facility] [address] [place] [address] Dr. Arden Magallon IG % 0.2 % Normal 0.0-0.5 [facility] Comment on above: Performed By: #### B MP #### [facility] [address] [place] [address] Dr. Arden Magallon LYMPH # 1.5 103/ul Normal 1.2-3.8 [facility] Comment on above: Performed By: #### B MP #### [facility] [address] [place] [address] Dr. Arden Magallon Lymphocytes/100 WBC (Bld) 24.9 % Normal 20.5-60.0 [facility] Comment on above: Performed By: #### B MP #### [facility] [address] [place] [address] Dr. Arden Magallon MANUAL DIFF REQ NO Normal [facility] Comment on above: Performed By: #### B MP #### [facility] [address] [place] [address] Dr. Arden Magallon MCH (RBC) [Entitic mass] 31.1 pg Normal 26.7-34.0 [facility] Comment on above: Performed By: #### B MP #### [facility] [address] [place] [address] Dr. Arden Magallon MCHC (RBC) [Mass/Vol] 33.3 g/dL Normal 29.9-35.2 [facility] Comment on above: Performed By: #### B MP #### [facility] [address] [place] [address] Dr. Adren Magallon MCV (RBC) [Entitic vol] 93.3 fL Normal 81.0-99.0 [facility] Comment on above: Performed By: #### B MP #### [facility] [address] [place] [address] Dr. Arden Magallon MONO # 1.0 103/ul Critically high 0.3-0.8 [facility] Comment on above: Performed By: #### B MP #### [facility] [address] [address] [address] Arden Magallon Monocytes/100 WBC (Bld) 16.0 % Critically high 1.7-12. 0 [facility] Comment on above: Performed By: #### B MP #### [facility] [address] [address] [address] Arden Magallon NEUT # 2.9 103/ul Normal 1.4-6.5 [facility] Comment on above: Performed By: #### B MP #### [facility] [address] [address] [address] Arden Magallon Neutrophils/100 WBC (Bld) 48.6 % Normal 43.0-75.0 [facility] Comment on above: Performed By: #### B MP #### [facility] [address] [place] [address] Dr. Arden Magallon Platelet mean volume (Bld) [Entitic vol] 10.8 fL Normal 9.5-13.5 [facility] Comment on above: Performed By: #### B MP #### [facility] [address] [address] [address] Arden Magallon PLT 138 103/ul Critically low 150-450 [facility] Comment on above: Performed By: #### B MP #### [facility] [address] [place] [address] Dr. Arden Magallon RBC 4.34 106/ul Normal 4.20-5.40 [facility] Comment on above: Performed By: #### B MP #### [facility] [address] [address] [address] Arden Magallon WBC 6.0 103/ul Normal 4.0-11.0 [facility] Comment on above: Performed By: #### B MP #### [facility] [address] [place] [address] Dr. Arden Magallon PROF CHEM 8 (BAS METB)on Anion gap [Moles/Vol] 9.0 mmol/L Normal [facility] Comment on above: Performed By: #### P T, DDIM #### [facility] [address] [address] [address] Arden Magallon Calcium [Mass/Vol] 9.6 mg/dL Normal 8.5-10.1 [facility] Comment on above: Performed By: #### P T, DDIM #### [facility] [address] [address] [address] Arden Magallon Chloride [Moles/Vol] 105 mmol/L Normal 98-107 [facility] Comment on above: Performed By: #### P T, DDIM #### [facility] [address] [address] [address] Arden Magallon CO2 [Moles/Vol] 29.1 mmol/L Normal 21.0-32.0 [facility] Comment on above: Performed By: #### P T, DDIM #### [facility] [address] [address] [address] Arden Magallon Creatinine [Mass/Vol] 1.00 mg/dL Normal 0.55-1.02 [facility] Comment on above: Performed By: #### P T, DDIM #### [facility] [address] [address] [address] Arden Magallon EGFR-AF PUERTO RICAN >60 Normal >=60 [facility] Comment on above: Performed By: #### P T, DDIM #### [facility] [address] [address] [address] Arden Magallon EGFR-NON AF PUERTO RICAN 53 mL/min/1.73m2 Critically low >=60 [facility] Comment on above: Performed By: #### P T, DDIM #### [facility] [address] [address] [address] Arden Magallon Glucose [Mass/Vol] 116 mg/dL Critically high 74-106 [facility] Comment on above: Performed By: #### P T, DDIM #### [facility] [address] [address] [address] Arden Magallon Potassium [Moles/Vol] 4.1 mmol/L Normal 3.5-5.1 [facility] Comment on above: Performed By: #### P T, DDIM #### [facility] [address] [place] [address] Dr. Arden Magallon Sodium [Moles/Vol] 139 mmol/L Normal 136-145 [facility] Comment on above: Performed By: #### P T, DDIM #### [facility] [address] [place] [address] Dr. Arden Magallon Urea nitrogen [Mass/Vol] 15.0 mg/dL Normal 7.0-18.0 [facility] Comment on above: Performed By: #### P T, DDIM #### [facility] [address] [place] [address] Dr. Arden Magallon Urea nitrogen/Creatinine [Mass ratio] 15.0 mg/mg Normal [facility] Comment on above: Performed By: #### P T, DDIM #### [facility] [address] [place] [address] Dr. Arden Magallon CBC AUTO DIFFon 08-30-2022 BASO # 0.2 103/ul Critically high 0.0-0.1 [facility] Comment on above: Performed By: #### B SWATCH CUTTER, CMP #### [facility] [address] [place] [address] Dr. Arden Magallon Basophils/100 WBC (Bld) 2.7 % Critically high 0.2-2.0 [facility] Comment on above: Performed By: #### B SWATCH CUTTER, CMP #### [facility] [address] [place] [address] Dr. Arden Magallon EO # 0.5 103/ul Normal 0.0-0.7 [facility] Comment on above: Performed By: #### B SWATCH CUTTER, CMP #### [facility] [address] [place] [address] Dr. Arden Magallon Eosinophils/100 WBC (Bld) 6.7 % Normal 0.9-7.0 [facility] Comment on above: Performed By: #### B SWATCH CUTTER, CMP #### [facility] [address] [place] [address] Dr. Arden Magallon Erythrocyte distribution width (RBC) [Ratio] 14.3 % Normal 11.0-15.0 [facility] Comment on above: Performed By: #### B SWATCH CUTTER, CMP #### [facility] [address] [place] [address] Dr. Arden Magallon Hematocrit (Bld) [Volume fraction] 43.1 % Normal 36.0-48.0 [facility] Comment on above: Performed By: #### B SWATCH CUTTER, CMP #### [facility] [address] [place] [address] Dr. Arden Magallon Hemoglobin (Bld) [Mass/Vol] 14.5 g/dL Normal 12.0-16.0 [facility] Comment on above: Performed By: #### B SWATCH CUTTER, CMP #### [facility] [address] [place] [address] Dr. Arden Magallon IG # 0.02 10e3/ul Normal 0.00-0.03 [facility] Comment on above: Performed By: #### B SWATCH CUTTER, CMP #### [facility] [address] [place] [address] Dr. Arden Magallon IG % 0.3 % Normal 0.0-0.5 [facility] Comment on above: Performed By: #### B SWATCH CUTTER, CMP #### [facility] [address] [place] [address] Dr. Arden Magallon LYMPH # 3.1 103/ul Normal 1.2-3.8 [facility] Comment on above: Performed By: #### B SWATCH CUTTER, CMP #### [facility] [address] [place] [address] Dr. Arden Magallon Lymphocytes/100 WBC (Bld) 41.0 % Normal 20.5-60.0 [facility] Comment on above: Performed By: #### B SWATCH CUTTER, CMP #### [facility] [address] [place] [address] Dr. Arden Magallon MANUAL DIFF REQ NO Normal [facility] Comment on above: Performed By: #### B SWATCH CUTTER, CMP #### [facility] [address] [place] [address] Dr. Arden Magallon MCH (RBC) [Entitic mass] 31.6 pg Normal 26.7-34.0 [facility] Comment on above: Performed By: #### B SWATCH CUTTER, CMP #### [facility] [address] [place] [address] Dr. Arden Magallon MCHC (RBC) [Mass/Vol] 33.6 g/dL Normal 29.9-35.2 [facility] Comment on above: Performed By: #### B SWATCH CUTTER, CMP #### [facility] [address] [place] [address] Dr. Arden Magallon MCV (RBC) [Entitic vol] 93.9 fL Normal 81.0-99.0 [facility] Comment on above: Performed By: #### B SWATCH CUTTER, CMP #### [facility] [address] [place] [address] Dr. Arden Magallon MONO # 0.8 103/ul Normal 0.3-0.8 [facility] Comment on above: Performed By: #### B SWATCH CUTTER, CMP #### [facility] [address] [place] [address] Dr. Aredn Magallon Monocytes/100 WBC (Bld) 10.9 % Normal 1.7-12.0 [facility] Comment on above: Performed By: #### B SWATCH CUTTER, CMP #### [facility] [address] [place] [address] Dr. Arden Magallon NEUT # 2.9 103/ul Normal 1.4-6.5 [facility] Comment on above: Performed By: #### B SWATCH CUTTER, CMP #### [facility] [address] [place] [address] Dr. Arden Magallon Neutrophils/100 WBC (Bld) 38.4 % Critically low 43.0-75.0 [facility] Comment on above: Performed By: #### B SWATCH CUTTER, CMP #### [facility] [address] [place] [address] Dr. Arden Magallon Platelet mean volume (Bld) [Entitic vol] 10.8 fL Normal 9.5-13.5 [facility] Comment on above: Performed By: #### B SWATCH CUTTER, CMP #### [facility] [address] [place] [address] Dr. Arden Magallon PLT 165 103/ul Normal 150-450 [facility] Comment on above: Performed By: #### B SWATCH CUTTER, CMP #### [facility] [address] [place] [address] Dr. Arden Magallon RBC 4.59 106/ul Normal 4.20-5.40 [facility] Comment on above: Performed By: #### B SWATCH CUTTER, CMP #### [facility] [address] [place] [address] Dr. Arden Magallon WBC 7.5 103/ul Normal 4.0-11.0 [facility] Comment on above: Performed By: #### B SWATCH CUTTER, CMP #### [facility] [address] [place] [address] Dr. Arden Magallon PROF 14(COMP METB)on 022 Albumin [Mass/Vol] 3.9 g/dL Normal 3.4-5.0 [facility] Comment on above: Performed By: #### P T, DDIM #### [facility] [address] [place] [address] Dr. Arden Magallon Albumin/Globulin [Mass ratio] 1.2 {ratio} [facility] Comment on above: Performed By: #### P T, DDIM #### [facility] [address] [place] [address] Dr. Arden Magallon ALP [Catalytic activity/Vol] 69 U/L Normal 46-116 [facility] Comment on above: Performed By: #### P T, DDIM #### [facility] [address] [place] [address] Dr. Arden Magallon ALT [Catalytic activity/Vol] 16 U/L Normal 14-59 [facility] Comment on above: Performed By: #### P T, DDIM #### [facility] [address] [place] [address] Dr. Arden Magallon Anion gap [Moles/Vol] 8.6 mmol/L Normal [facility] Comment on above: Performed By: #### P T, DDIM #### [facility] [address] [address] [address] Arden Magallon AST [Catalytic activity/Vol] 14 U/L Critically low 15-37 [facility] Comment on above: Performed By: #### P T, DDIM #### [facility] [address] [address] [address] Arden Magallon Bilirubin [Mass/Vol] 0.3 mg/dL Normal 0.2-1.0 [facility] Comment on above: Performed By: #### P T, DDIM #### [facility] [address] [address] [address] Arden Magallon Calcium [Mass/Vol] 9.5 mg/dL Normal 8.5-10.1 [facility] Comment on above: Performed By: #### P T, DDIM #### [facility] [address] [place] [address] Dr. Arden Magallon Chloride [Moles/Vol] 104 mmol/L Normal 98-107 [facility] Comment on above: Performed By: #### P T, DDIM #### [facility] [address] [address] [address] Arden Magallon CO2 [Moles/Vol] 29.2 mmol/L Normal 21.0-32.0 [facility] Comment on above: Performed By: #### P T, DDIM #### [facility] [address] [address] [address] Arden Magallon Creatinine [Mass/Vol] 1.25 mg/dL Critically high 0.55-1.02 [facility] Comment on above: Performed By: #### P T, DDIM #### [facility] [address] [address] [address] Arden Magallon EGFR-AF PUERTO RICAN 49 mL/min/1.73m2 Critically low >=60 [facility] Comment on above: Performed By: #### P T, DDIM #### [facility] [address] [address] [address] Arden Magallon EGFR-NON AF PUERTO RICAN 41 mL/min/1.73m2 Critically low >=60 [facility] Comment on above: Performed By: #### P T, DDIM #### [facility] [address] [place] [address] Dr. Arden Magallon Globulin (S) [Mass/Vol] 3.3 g/dL Normal [facility] Comment on above: Performed By: #### P T, DDIM #### [facility] [address] [place] [address] Dr. Arden Magallon Glucose [Mass/Vol] 119 mg/dL Critically high 74-106 [facility] Comment on above: Performed By: #### P T, DDIM #### [facility] [address] [place] [address] Dr. Arden Magallon Potassium [Moles/Vol] 3.8 mmol/L Normal 3.5-5.1 [facility] Comment on above: Performed By: #### P T, DDIM #### [facility] [address] [place] [address] Dr. Arden Magallon Protein [Mass/Vol] 7.2 g/dL Normal 6.4-8.2 [facility] Comment on above: Performed By: #### P T, DDIM #### [facility] [address] [place] [address] Dr. Arden Magallon Sodium [Moles/Vol] 138 mmol/L Normal 136-145 [facility] Comment on above: Performed By: #### P T, DDIM #### [facility] [address] [place] [address] Dr. Arden Magallon Urea nitrogen [Mass/Vol] 24.0 mg/dL Critically high 7.0-18.0 [facility] Comment on above: Performed By: #### P T, DDIM #### [facility] [address] [place] [address] Dr. Arden Magallon Urea nitrogen/Creatinine [Mass ratio] 19.2 mg/mg Normal [facility] Comment on above: Performed By: #### P T, DDIM #### [facility] [address] [place] [address] Dr. Arden Magallon BNPon 08-26-2022 Natriuretic peptide B (Bld) [Mass/Vol] 427.0 pg/mL Normal <=1,800.0 [facility] Comment on above: Performed By: #### P T, DDIM #### [facility] [address] [place] [address] Dr. Arden Magallon CARDIAC CINDY ADMITon 022 CK [Catalytic activity/Vol] 56 U/L Normal 26-192 [facility] Comment on above: Performed By: #### P T, DDIM #### [facility] [address] [place] [address] Dr. Arden Magallon CK.MB [Mass/Vol] 1.41 ng/mL Normal <=3.60 [facility] Comment on above: Performed By: #### P T, DDIM #### [facility] [address] [place] [address] Dr. Arden Magallon HSTROP 9.0 pg/mL Normal 4.0-51.3 [facility] Comment on above: Result Comment: CUT- OFF POINTS HAVE BEEN ESTABLISHED BASED ON THE FOURTH UNIVERSAL DEFINITIONS OF MYOCARDIAL INFARCTION. THE UPPER REFERENCE LIMIT (URL) OF TROPONIN, DEFINED THE 99TH PERCENTILE OF cTnI DISTRIBUTION IN A REFERENCE POPULATION, HAS BEEN CONFIRMED THE DECISION THRESHOLD FOR CO DIAGNOSIS. Performed By: #### P T, DDIM #### [facility] [address] [place] [address] Dr. Arden Magallon IKE 99 ng/mL Critically high 9-82 [facility] Comment on above: Performed By: #### P T, DDIM #### [facility] [address] [place] [address] Dr. Arden Magallon CBC AUTO DIFFon 08-26-2022 BASO # 0.2 103/ul Critically high 0.0-0.1 [facility] Comment on above: Performed By: #### C BC #### [facility] [address] [place] [address] Dr. Arden Magallon Basophils/100 WBC (Bld) 2.2 % Critically high 0.2-2.0 [facility] Comment on above: Performed By: #### C BC #### [facility] [address] [place] [address] Dr. Ardne Magallon EO # 0.4 103/ul Normal 0.0-0.7 [facility] Comment on above: Performed By: #### C BC #### [facility] [address] [place] [address] Dr. Arden Magallon Eosinophils/100 WBC (Bld) 5.1 % Normal 0.9-7.0 [facility] Comment on above: Performed By: #### C BC #### [facility] [address] [place] [address] Dr. Arden Magallon Erythrocyte distribution width (RBC) [Ratio] 14.1 % Normal 11.0-15.0 [facility] Comment on above: Performed By: #### C BC #### [facility] [address] [place] [address] Dr. Arden Magallon Hematocrit (Bld) [Volume fraction] 41.2 % Normal 36.0-48.0 [facility] Comment on above: Performed By: #### C BC #### [facility] [address] [place] [address] Dr. Arden Magallon Hemoglobin (Bld) [Mass/Vol] 13.6 g/dL Normal 12.0-16.0 [facility] Comment on above: Performed By: #### C BC #### [facility] [address] [place] [address] Dr. Arden Magallon IG # 0.03 10e3/ul Normal 0.00-0.03 [facility] Comment on above: Performed By: #### C BC #### [facility] [address] [place] [address] Dr. Arden Magallon IG % 0.4 % Normal 0.0-0.5 [facility] Comment on above: Performed By: #### C BC #### [facility] [address] [place] [address] Dr. Arden Magallon LYMPH # 2.4 103/ul Normal 1.2-3.8 [facility] Comment on above: Performed By: #### C BC #### [facility] [address] [place] [address] Dr. Arden Magallon Lymphocytes/100 WBC (Bld) 30.1 % Normal 20.5-60.0 [facility] Comment on above: Performed By: #### C BC #### [facility] [address] [place] [address] Dr. Arden Magallon MANUAL DIFF REQ NO Normal [facility] Comment on above: Performed By: #### C BC #### [facility] [address] [place] [address] Dr. Arden Magallon MCH (RBC) [Entitic mass] 30.8 pg Normal 26.7-34.0 [facility] Comment on above: Performed By: #### C BC #### [facility] [address] [place] [address] Dr. Arden Magallon MCHC (RBC) [Mass/Vol] 33.0 g/dL Normal 29.9-35.2 [facility] Comment on above: Performed By: #### C BC #### [facility] [address] [place] [address] Dr. Arden Magallon MCV (RBC) [Entitic vol] 93.4 fL Normal 81.0-99.0 [facility] Comment on above: Performed By: #### C BC #### [facility] [address] [place] [address] Dr. Arden Magallon MONO # 0.8 103/ul Normal 0.3-0.8 [facility] Comment on above: Performed By: #### C BC #### [facility] [address] [place] [address] Dr. Arden Magallon Monocytes/100 WBC (Bld) 9.8 % Normal 1.7-12.0 [facility] Comment on above: Performed By: #### C BC #### [facility] [address] [place] [address] Dr. Arden Magallon NEUT # 4.2 103/ul Normal 1.4-6.5 [facility] Comment on above: Performed By: #### C BC #### [facility] [address] [place] [address] Dr. Arden Magallon Neutrophils/100 WBC (Bld) 52.4 % Normal 43.0-75.0 [facility] Comment on above: Performed By: #### C BC #### [facility] [address] [place] [address] Dr. Arden Magallon Platelet mean volume (Bld) [Entitic vol] 10.7 fL Normal 9.5-13.5 [facility] Comment on above: Performed By: #### C BC #### [facility] [address] [place] [address] Dr. Arden Magallon PLT 154 103/ul Normal 150-450 [facility] Comment on above: Performed By: #### C BC #### [facility] [address] [place] [address] Dr. Arden Magallon RBC 4.41 106/ul Normal 4.20-5.40 [facility] Comment on above: Performed By: #### C BC #### [facility] [address] [place] [address] Dr. Arden Magallon WBC 8.1 103/ul Normal 4.0-11.0 [facility] Comment on above: Performed By: #### C BC #### [facility] [address] [place] [address] Dr. Arden Magallon PROF 14(COMP METB)on 08-26- 022 Albumin [Mass/Vol] 3.7 g/dL Normal 3.4-5.0 [facility] Comment on above: Performed By: #### P T, DDIM #### [facility] [address] [place] [address] Dr. Arden Magallon Albumin/Globulin [Mass ratio] 1.2 {ratio} Normal [facility] Comment on above: Performed By: #### P T, DDIM #### [facility] [address] [place] [address] Dr. Arden Magallon ALP [Catalytic activity/Vol] 57 U/L Normal 46-116 [facility] Comment on above: Performed By: #### P T, DDIM #### [facility] [address] [place] [address] Dr. Arden Magallon ALT [Catalytic activity/Vol] 17 U/L Normal 14-59 [facility] Comment on above: Performed By: #### P T, DDIM #### [facility] [address] [place] [address] Dr. Arden Magallon Anion gap [Moles/Vol] 9.1 mmol/L Normal [facility] Comment on above: Performed By: #### P T, DDIM #### [facility] [address] [place] [address] Dr. Arden Magallon AST [Catalytic activity/Vol] 12 U/L Critically low 15-37 [facility] Comment on above: Performed By: #### P T, DDIM #### [facility] [address] [place] [address] Dr. Arden Magallon Bilirubin [Mass/Vol] 0.6 mg/dL Normal 0.2-1.0 [facility] Comment on above: Performed By: #### P T, DDIM #### [facility] [address] [place] [address] Dr. Arden Magallon Calcium [Mass/Vol] 9.5 mg/dL Normal 8.5-10.1 [facility] [facility] Comment on above: Performed By: #### P T, DDIM #### [facility] [address] [place] [address] Dr. Arden Magallon Chloride [Moles/Vol] 105 mmol/L Normal 98-107 [facility] Comment on above: Performed By: #### P T, DDIM #### [facility] [address] [place] [address] Dr. Arden Magallon CO2 [Moles/Vol] 27.9 mmol/L Normal 21.0-32.0 [facility] Comment on above: Performed By: #### P T, DDIM #### [facility] [address] [place] [address] Dr. Arden Magallon Creatinine [Mass/Vol] 0.97 mg/dL Normal 0.55-1.02 [facility] Comment on above: Performed By: #### P T, DDIM #### [facility] [address] [address] [address] Arden Mgaallon EGFR-AF PUERTO RICAN >60 Normal >=60 [facility] Comment on above: Performed By: #### P T, DDIM #### [facility] [address] [address] [address] Arden Magallon EGFR-NON AF PUERTO RICAN 54 mL/min/1.73m2 Critically low >=60 [facility] Comment on above: Performed By: #### P T, DDIM #### [facility] [address] [address] [address] Arden Magallon Globulin (S) [Mass/Vol] 3.0 g/dL Normal [facility] Comment on above: Performed By: #### P T, DDIM #### [facility] [address] [place] [address] Dr. Arden Magallon Glucose [Mass/Vol] 105 mg/dL Normal 74-[address] [facility] Comment on above: Performed By: #### P T, DDIM #### [facility] [address] [place] [address] Dr. Arden Magallon Potassium [Moles/Vol] 4.0 mmol/L Normal 3.5-5.1 [facility] Comment on above: Performed By: #### P T, DDIM #### [facility] [address] [place] [address] Dr. Arden Magallon Protein [Mass/Vol] 6.7 g/dL Normal 6.4-8.[address] [facility] Comment on above: Performed By: #### P T, DDIM #### [facility] [address] [address] [address] Arden Magallon Sodium [Moles/Vol] 138 mmol/L Normal 136-[address] [facility] Comment on above: Performed By: #### P T, DDIM #### [facility] [address] [place] [address] Dr. Arden Magallon Urea nitrogen [Mass/Vol] 18.0 mg/dL Normal 7.0-18.0 [facility] Comment on above: Performed By: #### P T, DDIM #### [facility] [address] [address] [address] Arden Magallon Urea nitrogen/Creatinine [Mass ratio] 18.6 mg/mg Normal [facility] Comment on above: Performed By: #### P T, DDIM #### [facility] [address] [address] [address] Arden Magallon PROTIMEon 08-26-2022 INR Coag (PPP) [Relative time] 1.49 {INR} Normal [facility] Comment on above: Performed By: #### B SWATCH CUTTER, CMP #### [facility] [address] [place] [address] Dr. Arden Magallon INR GUIDELINES SEE BELOW Normal [facility] Comment on above: Result Comment: THANH RED INR: 2.0 - 3.0 CONDITIONS NOT LISTED BELOW 2.5 - 3.5 FOR PROSTHETIC HEART VALVE REPLACEMENT 2.5 - 3.5 RECURRENT THROMBOSIS Performed By: #### B SWATCH CUTTER, CMP #### [facility] [address] [place] [address] Dr. Arden Magallon PT Coag (PPP) [Time] 15.7 s Critically high 9.0-11.6 [facility] Comment on above: Performed By: #### B SWATCH CUTTER, CMP #### [facility] [address] [place] [address] Dr. Arden Magallon PTTon 08-26-2022 aPTT Coag (Bld) [Time] 30.2 s Normal 22.3-36.2 [facility] Comment on above: Performed By: #### B SWATCH CUTTER, CMP #### [facility] [address] [place] [address] Dr. Arden Magallon TROPONIN, HIGH SENSITIVITYon 08-26-2022 HSTROP 8.3 pg/mL Normal 4.0-51.3 [facility] Comment on above: Result Comment: CUT- OFF POINTS HAVE BEEN ESTABLISHED BASED ON THE FOURTH UNIVERSAL DEFINITIONS OF MYOCARDIAL INFARCTION. THE UPPER REFERENCE LIMIT (URL) OF TROPONIN, DEFINED THE 99TH PERCENTILE OF cTnI DISTRIBUTION IN A REFERENCE POPULATION, HAS BEEN CONFIRMED THE DECISION THRESHOLD FOR CO DIAGNOSIS. Performed By: #### B MP #### [facility] [address] [address] [address] Arden Magallon XR CHEST 1 Von [...] MOMO R[place] Date: 2022-08-26 12:29 Normal [facility] BNPon 08-17-2022 Natriuretic peptide B (Bld) [Mass/Vol] 414.0 pg/mL Normal <=1,800.0 [facility] Comment on above: Performed By: #### B MP #### [facility] [address] [address] [address] Arden Magallon CBC AUTO DIFFon 08-17-2022 BASO # 0.2 103/ul Critically high 0.0-0.1 [facility] Comment on above: Performed By: #### B MP #### [facility] [address] [address] [address] Arden Magallon Basophils/100 WBC (Bld) 2.8 % Critically high 0.2-2.0 [facility] Comment on above: Performed By: #### B MP #### [facility] [address] [address] [address] Arden Magallon EO # 0.5 103/ul Normal 0.0-0.7 [facility] Comment on above: Performed By: #### B MP #### [facility] [address] [place] [address] Dr. Arden Magallon Eosinophils/100 WBC (Bld) 7.2 % Critically high 0.9-7.0 [facility] Comment on above: Performed By: #### B MP #### [facility] [address] [address] [address] Arden Magallon Erythrocyte distribution width (RBC) [Ratio] 14.1 % Normal 11.0-15.0 [facility] Comment on above: Performed By: #### B MP #### [facility] [address] [address] [address] Arden Magallon Hematocrit (Bld) [Volume fraction] 41.2 % Normal 36.0-48.0 [facility] Comment on above: Performed By: #### B MP #### [facility] [address] [address] [address] Arden Magallon Hemoglobin (Bld) [Mass/Vol] 13.5 g/dL Normal 12.0-16.0 [facility] Comment on above: Performed By: #### B MP #### [facility] [address] [place] [address] Dr. Arden Magallon IG # 0.01 10e3/ul Normal 0.00-0.03 [facility] Comment on above: Performed By: #### B MP #### [facility] [address] [place] [address] Dr. Arden Magallon IG % 0.1 % Normal 0.0-0.5 [facility] Comment on above: Performed By: #### B MP #### [facility] [address] [place] [address] Dr. Arden Magallon LYMPH # 2.7 103/ul Normal 1.2-3.8 [facility] Comment on above: Performed By: #### B MP #### [facility] [address] [place] [address] Dr. Arden Magallon Lymphocytes/100 WBC (Bld) 37.7 % Normal 20.5-60.0 [facility] Comment on above: Performed By: #### B MP #### [facility] [address] [place] [address] Dr. Arden Magallon MANUAL DIFF REQ NO Normal [facility] Comment on above: Performed By: #### B MP #### [facility] [address] [place] [address] Dr. Arden Magallon MCH (RBC) [Entitic mass] 31.2 pg Normal 26.7-34.0 [facility] Comment on above: Performed By: #### B MP #### [facility] [address] [place] [address] Dr. Arden Magallon MCHC (RBC) [Mass/Vol] 32.8 g/dL Normal 29.9-35.2 [facility] Comment on above: Performed By: #### B MP #### [facility] [address] [place] [address] Dr. Arden Magallon MCV (RBC) [Entitic vol] 95.2 fL Normal 81.0-99.0 [facility] Comment on above: Performed By: #### B MP #### [facility] [address] [place] [address] Dr. Arden Magallon MONO # 0.6 103/ul Normal 0.3-0.8 [facility] Comment on above: Performed By: #### B MP #### [facility] [address] [place] [address] Dr. Arden Magallon Monocytes/100 WBC (Bld) 8.2 % Normal 1.7-12.0 [facility] Comment on above: Performed By: #### B MP #### [facility] [address] [place] [address] Dr. Arden Magallon NEUT # 3.1 103/ul Normal 1.4-6.5 [facility] Comment on above: Performed By: #### B MP #### [facility] [address] [place] [address] Dr. Arden Magallon Neutrophils/100 WBC (Bld) 44.0 % Normal 43.0-75.0 [facility] Comment on above: Performed By: #### B MP #### [facility] [address] [place] [address] Dr. Arden Magallon Platelet mean volume (Bld) [Entitic vol] 11.5 fL Normal 9.5-13.5 [facility] Comment on above: Performed By: #### B MP #### [facility] [address] [place] [address] Dr. Arden Magallon PLT 160 103/ul Normal 150-450 [facility] Comment on above: Performed By: #### B MP #### [facility] [address] [place] [address] Dr. Arden Magallon RBC 4.33 106/ul Normal 4.20-5.40 [facility] Comment on above: Performed By: #### B MP #### [facility] [address] [place] [address] Dr. Arden Magallon WBC 7.1 103/ul Normal 4.0-11.0 [facility] Comment on above: Performed By: #### B MP #### [facility] [address] [place] [address] Dr. Arden Magallon D-DIMERon 08-17-2022 D-DIMER 0.36 mg/L FEU Normal <=0.59 [facility] Comment on above: Performed By: #### P T, DDIM #### [facility] [address] [place] [address] Dr. Arden Magallon D-DIMER COMMENTS SEE BELOW Normal [facility] Comment on above: Result Comment: Incr eases [...] Performed By: #### P T, DDIM #### [facility] [address] [place] [address] Dr. Arden Magallon PROF 14(COMP METB)on 022 Albumin [Mass/Vol] 3.7 g/dL Normal 3.4-5.0 [facility] Comment on above: Performed By: #### C BC #### [facility] [address] [place] [address] Dr. Arden Magallon Albumin/Globulin [Mass ratio] 1.1 {ratio} Normal [facility] Comment on above: Performed By: #### C BC #### [facility] [address] [place] [address] Dr. Arden Magallon ALP [Catalytic activity/Vol] 65 U/L Normal 46-116 [facility] Comment on above: Performed By: #### C BC #### [facility] [address] [place] [address] Dr. Arden Magallon ALT [Catalytic activity/Vol] 15 U/L Normal 14-59 [facility] Comment on above: Performed By: #### C BC #### [facility] [address] [place] [address] Dr. Arden Magallon Anion gap [Moles/Vol] 6.1 mmol/L Normal [facility] Comment on above: Performed By: #### C BC #### [facility] [address] [place] [address] Dr. Arden Magallon AST [Catalytic activity/Vol] 11 U/L Critically low 15-37 [facility] Comment on above: Performed By: #### C BC #### [facility] [address] [place] [address] Dr. Arden Magallon Bilirubin [Mass/Vol] 0.4 mg/dL Normal 0.2-1.0 [facility] Comment on above: Performed By: #### C BC #### [facility] [address] [place] [address] Dr. Arden Magallon Calcium [Mass/Vol] 9.6 mg/dL Normal 8.5-10.1 [facility] Comment on above: Performed By: #### C BC #### [facility] [address] [place] [address] Dr. Arden Magallon Chloride [Moles/Vol] 106 mmol/L Normal 98-107 [facility] Comment on above: Performed By: #### C BC #### [facility] [address] [place] [address] Dr. Arden Magallon CO2 [Moles/Vol] 29.5 mmol/L Normal 21.0-32.0 [facility] Comment on above: Performed By: #### C BC #### [facility] [address] [address] [address] Arden Magallon Creatinine [Mass/Vol] 1.02 mg/dL Normal 0.55-1.02 [facility] Comment on above: Performed By: #### C BC #### [facility] [address] [address] [address] Arden Magallon EGFR-AF PUERTO RICAN >60 Normal >=60 [facility] Comment on above: Performed By: #### C BC #### [facility] [address] [address] [address] Arden Magallon EGFR-NON AF PUERTO RICAN 51 mL/min/1.73m2 Critically low >=60 [facility] Comment on above: Performed By: #### C BC #### [facility] [address] [address] [address] Arden Magallon Globulin (S) [Mass/Vol] 3.3 g/dL Normal [facility] Comment on above: Performed By: #### C BC #### [facility] [address] [address] [address] Arden Magallon Glucose [Mass/Vol] 143 mg/dL Critically high 74-106 [facility] Comment on above: Performed By: #### C BC #### [facility] [address] [address] [address] Arden Magallon Potassium [Moles/Vol] 3.6 mmol/L Normal 3.5-5.1 [facility] Comment on above: Performed By: #### C BC #### [facility] [address] [address] [address] Arden Magallon Protein [Mass/Vol] 7.0 g/dL Normal 6.4-8.[address] [facility] Comment on above: Performed By: #### C BC #### [facility] [address] [address] [address] Arden Magallon Sodium [Moles/Vol] 138 mmol/L Normal 136-[address] [facility] Comment on above: Performed By: #### C BC #### [facility] [address] [place] [address] Dr. Arden Magallon Urea nitrogen [Mass/Vol] 21.0 mg/dL Critically high 7.0-18.0 [facility] Comment on above: Performed By: #### C BC #### [facility] [address] [place] [address] Dr. Arden Magallon Urea nitrogen/Creatinine [Mass ratio] 20.6 mg/mg Normal [facility] Comment on above: Performed By: #### C BC #### [facility] [address] [place] [address] Dr. Arden Magallon PROTIMEon 08-17-2022 INR Coag (PPP) [Relative time] 1.27 {INR} Normal [facility] Comment on above: Performed By: #### P T, DDIM #### [facility] [address] [place] [address] Dr. Arden Magallon INR GUIDELINES SEE BELOW Normal [facility] Comment on above: Result Comment: THANH RED INR: 2.0 - 3.0 CONDITIONS NOT LISTED BELOW 2.5 - 3.5 FOR PROSTHETIC HEART VALVE REPLACEMENT 2.5 - 3.5 RECURRENT THROMBOSIS Performed By: #### P T, DDIM #### [facility] [address] [place] [address] Dr. Arden Magallon PT Coag (PPP) [Time] 13.5 s Critically high 9.0-11.6 [facility] Comment on above: Performed By: #### P T, DDIM #### [facility] [address] [place] [address] Dr. Arden Magallon TROPONIN, HIGH SENSITIVITYon 08-17-2022 HSTROP 8.3 pg/mL Normal 4.0-51.3 [facility] Comment on above: Result Comment: CUT- OFF POINTS HAVE BEEN ESTABLISHED BASED ON THE FOURTH UNIVERSAL DEFINITIONS OF MYOCARDIAL INFARCTION. THE UPPER REFERENCE LIMIT (URL) OF TROPONIN, DEFINED THE 99TH PERCENTILE OF cTnI DISTRIBUTION IN A REFERENCE POPULATION, HAS BEEN CONFIRMED THE DECISION THRESHOLD FOR CO DIAGNOSIS. Performed By: #### B MP #### [facility] [address] [place] [address] Dr. Arden Magallon XR CHEST 1 Von [...] HARJINDER RAMIREZ Date: 2022-08-17 13:57 Normal [facility] ER URINE PROFILEon 2 Bilirubin Ql (U) Negative Normal NEGATIVE [facility] Comment on above: Performed By: #### P T, DDIM #### [facility] [address] [place] [address] Dr. Arden Magallon Clarity (U) CLEAR Normal CLEAR [facility] Comment on above: Performed By: #### P T, DDIM #### [facility] [address] [place] [address] Dr. Arden Magallon Color (U) LT. YELLOW Normal YELLOW [facility] Comment on above: Performed By: #### P T, DDIM #### [facility] [address] [place] [address] Dr. Arden Magallon ERUYOVANID A micrscopic examination will be performed if indicated. Normal [facility] Comment on above: Performed By: #### P T, DDIM #### [facility] [address] [place] [address] Dr. Arden Magallon Glucose Ql (U) Negative Normal NEGATIVE [facility] Comment on above: Performed By: #### P T, DDIM #### [facility] [address] [place] [address] Dr. Arden Magallon Hemoglobin Ql (U) SMALL Abnormal NEGATIVE The [facility] Comment on above: Performed By: #### P T, DDIM #### [facility] [address] [address] [address] Arden Magallon Ketones Ql (U) Negative Normal NEGATIVE [facility] Comment on above: Performed By: #### P T, DDIM #### [facility] [address] [place] [address] Dr. Arden Magallon LEUKOCYTES TRACE Abnormal NEGATIVE [facility] Comment on above: Performed By: #### P T, DDIM #### [facility] [address] [place] [address] Dr. Arden Magallon Nitrite Ql (U) Negative Normal NEGATIVE [facility] Comment on above: Performed By: #### P T, DDIM #### [facility] [address] [place] [address] Dr. Arden Magallon pH (U) 7.0 [pH] Normal 5-9 [facility] Comment on above: Performed By: #### P T, DDIM #### [facility] [address] [place] [address] Dr. Arden Magallon SPEC GRAVITY 1.010 Normal 1.005-<=1.0 25 [facility] Comment on above: Performed By: #### P T, DDIM #### [facility] [address] [place] [address] Dr. Arden Magallon UA PROTEIN Negative Normal NEGATIVE/ TRACE [facility] Comment on above: Performed By: #### P T, DDIM #### [facility] [address] [place] [address] Dr. Arden Magallon UR MICRO IND INDICATED Normal [facility] Comment on above: Performed By: #### P T, DDIM #### [facility] [address] [place] [address] Dr. Arden Magallon Urobilinogen Qn (U) 0.2 {Myranda'U}/dL Normal 0.2 - 1. 0 [facility] Comment on above: Performed By: #### P T, DDIM #### [facility] [address] [place] [address] Dr. Arden Magallon URINE MICROSCOPIC ONLYon BACTERIA NONE SEEN Normal NONE SEEN [facility] Comment on above: Performed By: #### P T, DDIM #### [facility] [address] [place] [address] Dr. Arden Magallon Bacteria identified Cx Nom (U) NOT INDICATED Normal [facility] Comment on above: Performed By: #### P T, DDIM #### [facility] [address] [place] [address] Dr. Arden Magallon CAST NONE SEEN Normal NONE SEEN [facility] Comment on above: Performed By: #### P T, DDIM #### [facility] [address] [place] [address] Dr. Arden Magallon Crystals LM Nom (Urine sed) NONE SEEN Normal NONE SEEN [facility] Comment on above: Performed By: #### P T, DDIM #### [facility] [address] [place] [address] Dr. Arden Magallon Epithelial cells LM Ql (Urine sed) RARE Normal NONE SEEN /RARE [facility] Comment on above: Performed By: #### P T, DDIM #### [facility] [address] [place] [address] Dr. Arden Magallon MUCOUS NONE SEEN Normal NONE SEEN [facility] Comment on above: Performed By: #### P T, DDIM #### [facility] [address] [place] [address] Dr. Arden Magallon RBC 0-2 Normal 0-2 [facility] Comment on above: Performed By: #### P T, DDIM #### [facility] [address] [place] [address] Dr. Arden Magallon WBC 0-2 Abnormal NONE SEEN [facility] Comment on above: Performed By: #### P T, DDIM #### [facility] [address] [place] [address] Dr. Arden Magallon XR CHEST 1 Von [...] PANCHO ELY Date: 2022-04-15 22:19 Normal [facility] BNPon 04-15-2022 Natriuretic peptide B (Bld) [Mass/Vol] 318.0 pg/mL Normal <=1,800.0 [facility] Comment on above: Performed By: #### B SWATCH CUTTER, CMP #### [facility] [address] [place] [address] Dr. Arden Magallon CBC AUTO DIFFon 04-15-2022 BASO # 0.2 103/ul Critically high 0.0-0.1 [facility] Comment on above: Performed By: #### P T, DDIM #### [facility] [address] [place] [address] Dr. Arden Magallon Basophils/100 WBC (Bld) 2.2 % Critically high 0.2-2.0 [facility] Comment on above: Performed By: #### P T, DDIM #### [facility] [address] [place] [address] Dr. Arden Magallon EO # 0.5 103/ul Normal 0.0-0.7 [facility] Comment on above: Performed By: #### P T, DDIM #### [facility] [address] [place] [address] Dr. Arden Magallon Eosinophils/100 WBC (Bld) 6.2 % Normal 0.9-7.0 [facility] Comment on above: Performed By: #### P T, DDIM #### [facility] [address] [place] [address] Dr. Arden Magallon Erythrocyte distribution width (RBC) [Ratio] 14.0 % Normal 11.0-15.0 [facility] Comment on above: Performed By: #### P T, DDIM #### [facility] [address] [place] [address] Dr. Arden Magallon Hematocrit (Bld) [Volume fraction] 41.6 % Normal 36.0-48.0 [facility] Comment on above: Performed By: #### P T, DDIM #### [facility] [address] [place] [address] Dr. Arden Magallon Hemoglobin (Bld) [Mass/Vol] 13.8 g/dL Normal 12.0-16.0 [facility] Comment on above: Performed By: #### P T, DDIM #### [facility] [address] [place] [address] Dr. Arden Magallon IG # 0.01 10e3/ul Normal 0.00-0.03 [facility] Comment on above: Performed By: #### P T, DDIM #### [facility] [address] [place] [address] Dr. Arden Magallon IG % 0.1 % Normal 0.0-0.5 [facility] Comment on above: Performed By: #### P T, DDIM #### [facility] [address] [place] [address] Dr. Arden Magallon LYMPH # 3.2 103/ul Normal 1.2-3.8 [facility] Comment on above: Performed By: #### P T, DDIM #### [facility] [address] [place] [address] Dr. Arden Magallon Lymphocytes/100 WBC (Bld) 37.2 % Normal 20.5-60.0 [facility] Comment on above: Performed By: #### P T, DDIM #### [facility] [address] [place] [address] Dr. Arden Magallon MANUAL DIFF REQ NO Normal [facility] Comment on above: Performed By: #### P T, DDIM #### [facility] [address] [place] [address] Dr. Arden Magallon MCH (RBC) [Entitic mass] 31.0 pg Normal 26.7-34.0 [facility] Comment on above: Performed By: #### P T, DDIM #### [facility] [address] [place] [address] Dr. Arden Magallon MCHC (RBC) [Mass/Vol] 33.2 g/dL Normal 29.9-35.2 [facility] Comment on above: Performed By: #### P T, DDIM #### [facility] [address] [place] [address] Dr. Arden Magallon MCV (RBC) [Entitic vol] 93.5 fL Normal 81.0-99.0 [facility] Comment on above: Performed By: #### P T, DDIM #### [facility] [address] [place] [address] Dr. Arden Magallon MONO # 0.8 103/ul Normal 0.3-0.8 [facility] Comment on above: Performed By: #### P T, DDIM #### [facility] [address] [place] [address] Dr. Arden Magallon Monocytes/100 WBC (Bld) 9.4 % Normal 1.7-12.0 [facility] Comment on above: Performed By: #### P T, DDIM #### [facility] [address] [place] [address] Dr. Arden Magallon NEUT # 3.9 103/ul Normal 1.4-6.5 [facility] Comment on above: Performed By: #### P T, DDIM #### [facility] [address] [place] [address] Dr. Arden Magallon Neutrophils/100 WBC (Bld) 44.9 % Normal 43.0-75.0 [facility] Comment on above: Performed By: #### P T, DDIM #### [facility] [address] [place] [address] Dr. Arden Magallon Platelet mean volume (Bld) [Entitic vol] 10.7 fL Normal 9.5-13.5 [facility] Comment on above: Performed By: #### P T, DDIM #### [facility] [address] [place] [address] Dr. Arden Magallon PLT 158 103/ul Normal 150-450 [facility] Comment on above: Performed By: #### P T, DDIM #### [facility] [address] [place] [address] Dr. Arden Magallon RBC 4.45 106/ul Normal 4.20-5.40 [facility] Comment on above: Performed By: #### P T, DDIM #### [facility] [address] [place] [address] Dr. Arden Magallon WBC 8.7 103/ul Normal 4.0-11.0 [facility] Comment on above: Performed By: #### P T, DDIM #### [facility] [address] [place] [address] Dr. Arden Magallon PROF 14(COMP METB)on 022 Albumin [Mass/Vol] 4.2 g/dL Normal 3.4-5.0 [facility] Comment on above: Performed By: #### B SWATCH CUTTER, CMP #### [facility] [address] [place] [address] Dr. Arden Magallon Albumin/Globulin [Mass ratio] 1.2 {ratio} Normal [facility] Comment on above: Performed By: #### B SWATCH CUTTER, CMP #### [facility] [address] [place] [address] Dr. Arden Magallon ALP [Catalytic activity/Vol] 75 U/L Normal 46-116 [facility] Comment on above: Performed By: #### B SWATCH CUTTER, CMP #### [facility] [address] [place] [address] Dr. Arden Magallon ALT [Catalytic activity/Vol] 31 U/L Normal 14-59 [facility] Comment on above: Performed By: #### B SWATCH CUTTER, CMP #### [facility] [address] [place] [address] Dr. Arden Magallon Anion gap [Moles/Vol] 11.6 mmol/L Normal [facility] Comment on above: Performed By: #### B SWATCH CUTTER, CMP #### [facility] [address] [address] [address] Arden Magallon AST [Catalytic activity/Vol] 16 U/L Normal 15-37 [facility] Comment on above: Performed By: #### B SWATCH CUTTER, CMP #### [facility] [address] [place] [address] Dr. Arden Magallon Bilirubin [Mass/Vol] 0.4 mg/dL Normal 0.2-1.0 [facility] Comment on above: Performed By: #### B SWATCH CUTTER, CMP #### [facility] [address] [place] [address] Dr. Arden Magallon Calcium [Mass/Vol] 9.7 mg/dL Normal 8.5-10.1 [facility] Comment on above: Performed By: #### B SWATCH CUTTER, CMP #### [facility] [address] [place] [address] Dr. Arden Magallon Chloride [Moles/Vol] 106 mmol/L Normal 98-107 [facility] Comment on above: Performed By: #### B SWATCH CUTTER, CMP #### [facility] [address] [place] [address] Dr. Arden Magallon CO2 [Moles/Vol] 25.2 mmol/L Normal 21.0-32.0 [facility] Comment on above: Performed By: #### B SWATCH CUTTER, CMP #### [facility] [address] [place] [address] Dr. Arden Magallon Creatinine [Mass/Vol] 1.06 mg/dL Critically high 0.55-1.02 [facility] Comment on above: Performed By: #### B SWATCH CUTTER, CMP #### [facility] [address] [place] [address] Dr. Arden Magallon EGFR-AF PUERTO RICAN 60 mL/min/1.73m2 Normal >=60 [facility] Comment on above: Performed By: #### B SWATCH CUTTER, CMP #### [facility] [address] [place] [address] Dr. Arden Magallon EGFR-NON AF PUERTO RICAN 49 mL/min/1.73m2 Critically low >=60 [facility] Comment on above: Performed By: #### B SWATCH CUTTER, CMP #### [facility] [address] [address] [address] Arden Magallon Globulin (S) [Mass/Vol] 3.4 g/dL Normal [facility] Comment on above: Performed By: #### B SWATCH CUTTER, CMP #### [facility] [address] [address] [address] Arden Magallon Glucose [Mass/Vol] 123 mg/dL Critically high 74-106 [facility] Comment on above: Performed By: #### B SWATCH CUTTER, CMP #### [facility] [address] [address] [address] Arden Magallon Potassium [Moles/Vol] 3.8 mmol/L Normal 3.5-5.1 [facility] Comment on above: Performed By: #### B SWATCH CUTTER, CMP #### [facility] [address] [place] [address] Dr. Arden Magallon Protein [Mass/Vol] 7.6 g/dL Normal 6.4-8.2 [facility] Comment on above: Performed By: #### B SWATCH CUTTER, CMP #### [facility] [address] [place] [address] Dr. Arden Magallon Sodium [Moles/Vol] 139 mmol/L Normal 136-145 [facility] Comment on above: Performed By: #### B SWATCH CUTTER, CMP #### [facility] [address] [place] [address] Dr. Arden Magallon Urea nitrogen [Mass/Vol] 22.0 mg/dL Critically high 7.0-18.0 [facility] Comment on above: Performed By: #### B SWATCH CUTTER, CMP #### [facility] [address] [place] [address] Dr. Arden Magallon Urea nitrogen/Creatinine [Mass ratio] 20.8 mg/mg Normal [facility] Comment on above: Performed By: #### B SWATCH CUTTER, CMP #### [facility] [address] [place] [address] Dr. Arden Magallon ECHOCARDIO M/2D COMPLETEon 0 04-06-2022 ECHOCARDIO M/2D COMPLETE Patient: ZORAIDA BARRIOS Exam Date: 04/06/2022 : 1935 Gender:F Ordering : SUSAN LONG Admission #: [id number] Family : Order #: [id number] CLICK HERE TO VIEW EXAM ECHOCARDIOGRAM REPORT [...] Area(A4C): 16.40 cm2 Left Atrium Systolic Volume(A2C): 75055 mm3 Left Atrium Systolic Volume(A4C): 95459 mm3 Mitral Valve MV E to A Ratio: 0.60 Deceleration [place]: 2080 mm/s2 Mitral Valve A-Wave Peak Velocity: 103.00 cm/s Mitral Valve E-Wave Peak Velocity: 62.20 cm/s Right Ventricle RV Internal Diastolic Dimension: 3.04 cm Aorta AO Root Diam: 2.90 cm Aortic Valve AoV Area (Peak Bucky): 1.86 cm2 Deceleration [place]: 1080 mm/s2 Pressure Half-Time: 976 ms Peak [...] Edvin Grubbs M.D. on 04/06/2022 at 16:27 [facility] US KIDNEYSon 04-06-2022 US KIDNEYS EXAMINATION: US [...] by: BERTHA SOLIZ Date: 2022-04-06 16:45 Normal [facility] BNPon 03-17-2022 Natriuretic peptide B (Bld) [Mass/Vol] 193.0 pg/mL Normal <=1,800.0 [facility] Comment on above: Performed By: #### B SWATCH CUTTER, CMP #### [facility] [address] [place] [address] Dr. Arden Magallon CBC AUTO DIFFon 03-17-2022 BASO # 0.1 103/ul Normal 0.0-0.1 [facility] Comment on above: Performed By: #### B SWATCH CUTTER, CMP #### [facility] [address] [place] [address] Dr. Arden Magallon Basophils/100 WBC (Bld) 0.9 % Normal 0.2-2.0 [facility] Comment on above: Performed By: #### B SWATCH CUTTER, CMP #### [facility] [address] [place] [address] Dr. Arden Magallon EO # 0.4 103/ul Normal 0.0-0.7 [facility] Comment on above: Performed By: #### B SWATCH CUTTER, CMP #### [facility] [address] [place] [address] Dr. Arden Magallon Eosinophils/100 WBC (Bld) 4.7 % Normal 0.9-7.0 [facility] Comment on above: Performed By: #### B SWATCH CUTTER, CMP #### [facility] [address] [place] [address] Dr. Arden Magallon Erythrocyte distribution width (RBC) [Ratio] 14.2 % Normal 11.0-15.0 [facility] Comment on above: Performed By: #### B SWATCH CUTTER, CMP #### [facility] [address] [place] [address] Dr. Arden Magallon Hematocrit (Bld) [Volume fraction] 43.1 % Normal 36.0-48.0 [facility] Comment on above: Performed By: #### B SWATCH CUTTER, CMP #### [facility] [address] [place] [address] Dr. Arden Magallon Hemoglobin (Bld) [Mass/Vol] 14.1 g/dL Normal 12.0-16.0 [facility] Comment on above: Performed By: #### B SWATCH CUTTER, CMP #### [facility] [address] [place] [address] Dr. Arden Magallon IG # 0.04 10e3/ul Critically high 0.00-0.03 [facility] Comment on above: Performed By: #### B SWATCH CUTTER, CMP #### [facility] [address] [place] [address] Dr. Arden Magallon IG % 0.5 % Normal 0.0-0.5 [facility] Comment on above: Performed By: #### B SWATCH CUTTER, CMP #### [facility] [address] [place] [address] Dr. Arden Magallon LYMPH # 3.0 103/ul Normal 1.2-3.8 [facility] Comment on above: Performed By: #### B SWATCH CUTTER, CMP #### [facility] [address] [place] [address] Dr. Arden Magallon Lymphocytes/100 WBC (Bld) 34.2 % Normal 20.5-60.0 [facility] Comment on above: Performed By: #### B SWATCH CUTTER, CMP #### [facility] [address] [place] [address] Dr. Arden Magallon MANUAL DIFF REQ NO Normal [facility] Comment on above: Performed By: #### B SWATCH CUTTER, CMP #### [facility] [address] [place] [address] Dr. Arden Magallon MCH (RBC) [Entitic mass] 31.3 pg Normal 26.7-34.0 [facility] Comment on above: Performed By: #### B SWATCH CUTTER, CMP #### [facility] [address] [place] [address] Dr. Arden Magallon MCHC (RBC) [Mass/Vol] 32.7 g/dL Normal 29.9-35.2 [facility] Comment on above: Performed By: #### B SWATCH CUTTER, CMP #### [facility] [address] [address] [address] Arden Magallon MCV (RBC) [Entitic vol] 95.8 fL Normal 81.0-99.0 [facility] Comment on above: Performed By: #### B SWATCH CUTTER, CMP #### [facility] [address] [place] [address] Dr. Arden Magallon MONO # 1.2 103/ul Critically high 0.3-0.8 [facility] Comment on above: Performed By: #### B SWATCH CUTTER, CMP #### [facility] [address] [place] [address] Dr. Arden Magallon Monocytes/100 WBC (Bld) 13.5 % Critically high 1.7-12. 0 [facility] Comment on above: Performed By: #### B SWATCH CUTTER, CMP #### [facility] [address] [place] [address] Dr. Arden Magallon NEUT # 4.1 103/ul Normal 1.4-6.5 [facility] Comment on above: Performed By: #### B SWATCH CUTTER, CMP #### [facility] [address] [place] [address] Dr. Arden Magallon Neutrophils/100 WBC (Bld) 46.2 % Normal 43.0-75.0 [facility] Comment on above: Performed By: #### B SWATCH CUTTER, CMP #### [facility] [address] [place] [address] Dr. Arden Magallon Platelet mean volume (Bld) [Entitic vol] 11.2 fL Normal 9.5-13.5 [facility] Comment on above: Performed By: #### B SWATCH CUTTER, CMP #### [facility] [address] [place] [address] Dr. Arden Magallon PLT 160 103/ul Normal 150-450 [facility] Comment on above: Performed By: #### B SWATCH CUTTER, CMP #### [facility] [address] [place] [address] Dr. Arden Magallon RBC 4.50 106/ul Normal 4.20-5.40 [facility] Comment on above: Performed By: #### B SWATCH CUTTER, CMP #### [facility] [address] [place] [address] Dr. Arden Magallon WBC 8.9 103/ul Normal 4.0-11.0 [facility] Comment on above: Performed By: #### B SWATCH CUTTER, CMP #### [facility] [address] [place] [address] Dr. Arden Magallon PROF 14(COMP METB)on 022 Albumin [Mass/Vol] 4.0 g/dL Normal 3.4-5.0 [facility] Comment on above: Performed By: #### B SWATCH CUTTER, CMP #### [facility] [address] [place] [address] Dr. Arden Magallon Albumin/Globulin [Mass ratio] 1.2 {ratio} Normal [facility] Comment on above: Performed By: #### B SWATCH CUTTER, CMP #### [facility] [address] [place] [address] Dr. Arden Magallon ALP [Catalytic activity/Vol] 74 U/L Normal 46-116 [facility] Comment on above: Performed By: #### B SWATCH CUTTER, CMP #### [facility] [address] [place] [address] Dr. Arden Magallon ALT [Catalytic activity/Vol] 28 U/L Normal 14-59 [facility] Comment on above: Performed By: #### B SWATCH CUTTER, CMP #### [facility] [address] [place] [address] Dr. Arden Magallon Anion gap [Moles/Vol] 11.9 mmol/L Normal [facility] Comment on above: Performed By: #### B SWATCH CUTTER, CMP #### [facility] [address] [place] [address] Dr. Arden Magallon AST [Catalytic activity/Vol] 18 U/L Normal 15-37 [facility] Comment on above: Performed By: #### B SWATCH CUTTER, CMP #### [facility] [address] [place] [address] Dr. Arden Magallon Bilirubin [Mass/Vol] 0.4 mg/dL Normal 0.2-1.0 [facility] Comment on above: Performed By: #### B SWATCH CUTTER, CMP #### [facility] [address] [address] [address] Arden Magallon Calcium [Mass/Vol] 9.7 mg/dL Normal 8.5-10.1 [facility] Comment on above: Performed By: #### B SWATCH CUTTER, CMP #### [facility] [address] [address] [address] Arden Magallon Chloride [Moles/Vol] 105 mmol/L Normal 98-107 [facility] Comment on above: Performed By: #### B SWATCH CUTTER, CMP #### [facility] [address] [address] [address] Arden Magallon CO2 [Moles/Vol] 26.3 mmol/L Normal 21.0-32.0 [facility] Comment on above: Performed By: #### B SWATCH CUTTER, CMP #### [facility] [address] [address] [address] Arden Magallon Creatinine [Mass/Vol] 1.31 mg/dL Critically high 0.55-1.02 [facility] Comment on above: Performed By: #### B SWATCH CUTTER, CMP #### [facility] [address] [address] [address] Arden Magallon EGFR-AF PUERTO RICAN 47 mL/min/1.73m2 Critically low >=60 [facility] Comment on above: Performed By: #### B SWATCH CUTTER, CMP #### [facility] [address] [address] [address] Arden Magallon EGFR-NON AF PUERTO RICAN 38 mL/min/1.73m2 Critically low >=60 [facility] Comment on above: Performed By: #### B SWATCH CUTTER, CMP #### [facility] [address] [address] [address] Arden Magallon Globulin (S) [Mass/Vol] 3.3 g/dL Normal [facility] Comment on above: Performed By: #### B SWATCH CUTTER, CMP #### [facility] [address] [address] [address] Arden Magallon Glucose [Mass/Vol] 111 mg/dL Critically high 74-106 [facility] Comment on above: Performed By: #### B SWATCH CUTTER, CMP #### [facility] [address] [place] [address] Dr. Arden Magallon Potassium [Moles/Vol] 4.2 mmol/L Normal 3.5-5.1 [facility] Comment on above: Performed By: #### B SWATCH CUTTER, CMP #### [facility] [address] [place] [address] Dr. Arden Magallon Protein [Mass/Vol] 7.3 g/dL Normal 6.4-8.2 [facility] Comment on above: Performed By: #### B SWATCH CUTTER, CMP #### [facility] [address] [place] [address] Dr. Arden Magallon Sodium [Moles/Vol] 139 mmol/L Normal 136-145 [facility] Comment on above: Performed By: #### B SWATCH CUTTER, CMP #### [facility] [address] [place] [address] Dr. Arden Magallon Urea nitrogen [Mass/Vol] 24.0 mg/dL Critically high 7.0-18.0 [facility] Comment on above: Performed By: #### B SWATCH CUTTER, CMP #### [facility] [address] [place] [address] Dr. Arden Magallon Urea nitrogen/Creatinine [Mass ratio] 18.3 mg/mg Normal [facility] Comment on above: Performed By: #### B SWATCH CUTTER, CMP #### [facility] [address] [place] [address] Dr. Arden Magallon TROPONIN, HIGH SENSITIVITYon 03-17-2022 HSTROP 8.6 pg/mL Normal 4.0-51.3 [facility] Comment on above: Result Comment: CUT- OFF POINTS HAVE BEEN ESTABLISHED BASED ON THE FOURTH UNIVERSAL DEFINITIONS OF MYOCARDIAL INFARCTION. THE UPPER REFERENCE LIMIT (URL) OF TROPONIN, DEFINED THE 99TH PERCENTILE OF cTnI DISTRIBUTION IN A REFERENCE POPULATION, HAS BEEN CONFIRMED THE DECISION THRESHOLD FOR CO DIAGNOSIS. Performed By: #### C BC #### [facility] [address] [place] [address] Dr. Arden Magallon Coding Summary.on 03-04-2022 Coding Summary. CD:[id number] Gh 0bWw+PGhlYWQ+UT9YRSXbG 07kgCTzpZ7XC1zGJM6WHCB MFXZTXL0GSZ9cpKC8NInyN 2VybiAv VspgyIHcPL92KXg8MEE1zE suDPfssF4otTDvA1c8WeCh EV30pE02WEyfKQFwXqZ2Ua ZpbjsgbWFy L7aiYgChcLOiEfh+PHRhYm xlIHdpZHRoPScxMDAlJyBz rCexRE0iYq2pDXDyHPYqoE xhcHNlOiBj b0axTGCeIWtmWN4pnUgwI6 NorLV2OGOox3x0Lb22rDX+ UGNuKBV6fMhfVHctq107Fq Ghj9mgCXV7 zPHsIOusQHV8E38qu9G4DV IrXMRyIHJ3xLU7xP7njPbx fpejY9RanWOsCnX9DYX5xH QgyD9jeLlz uxznnB1oUri+L85WJF0JTS ACBA0XYxs2Z7NzCysghQT+ AR92AWUrLB72yLAguDXwf4 cnuCh4OuTw WTVoGMD0uWtkXUeiw2PoAF GpN85gzTGlh5V0IZUrnOwt rELxXeCyrCK7pC8xNDnlur cwz7smdozc Qyftz9dogc83cU72V93wNV ygMOAdUBV7AMDlPFDbvDob lw1tjB6tGv5+BVajh1olp6 wruFr9MbTr AJObxqBppKrzMVR7e0PxNk 74J8NghGyxv6PqLle4zq82 pKDqe9A8mCZ7RVmiZZGpxK 2iTNzuHvM3 LKAuDlJdoX95xGYcNYhrUb 2gmNxnpNxzAB7eSGElgili GBHmyJ5sMEXwsGCfkEryGV 4wNTBpbjtm r528FwDgMEH7CJBxgSVvR0 GreH8pIkBiXYKiIVKsS8Pl fNYmCLsvD790GJbjVmV6ZT ZoezVwJ8Xx YIHmjTmrGoV8q2T3Dv5Ka7 GhzelhXTC2ZHurQOP4FiB0 LrGoRrM3N7RzFkm4PZOhjM dzEA7zL2Ne VPJuxcghlhwpbZO1NZFfME XxsQ78fKIsYAbkSe1yf8A1 a657AMFxTABhvT63Xo4gxX ogMTBwdCBU rX4xaksuj2nzitseOrEzQW UxFHz4YXi1NZPanHqqFyJu FGV1WtW3SPX7jPJflV4ciD ldxuowyH1e Oyc+Y67vqK8oYSY5PNC2dr vgSAXjgtMsRL37TI66X3Iq PjwvdGFibGU+PGRpdiBzdH lzEA2wNqEg a1ofd6NjXKojP4EcQYAlXG khZfb3IQHoXRZ3bYJ4yJ5t ITSaCHxmf1J8kYI4N2Iptn Ocxe0sr8ug ZXGwBZtqN65lnGZci7G3MP KftOM6YNIqeUufLuIfjD81 Oyc+SXPymBqdt7JyImruv2 ufh5ffiLw0 NgPvKQSbqeUboZzzQPR1f9 UkRz83Q86sBPzbBWFlPYLu RYWfZZJraBezkv4rsI1wIi 8+PGNvbCB3 kWU8tA7oWFCmFaW5OPczO2 44XlIqtPMtWuqyy8mvx1il fPi8UnMiQLMbfaMmrKliGB M6s6MsCh44 U63pQCeoSBGyPDNxSYXvGN TllHeksu5naG3yYl2+PC9j l3ozci68gP93hEK+PHRkIH C4zLqwDWul TLTwzN6nYOyrMpA1MYXjEv ErkI71uMRcVRgmUu5ojMia lZwtFT6vWWBrlqidv846Ps Nvx5tgBVMw zVMwDOnyTSG6S97no0R5FQ XeOGPeJJR1gHS2pP8gvKtq bjogbGVmdDsgdmVydGljYW saMEvmA091 IHRvcDsnPlBhdGllbnQgTm YkBMx7B4SyAmy7TKIfzOnn MA0bzDKcNOvoRg9mlEcmcJ pjKF2oUNDk kwqsl335ZxJzc5ycYLCvxO LiJOvlTOI7C78gy3X1WYEk JUOiRVI8rOL8eW4ghLzytr ogbGVmdDsg zqIlsXmeFTkwMEviK193CP RvcDsnPkJpcnRoIERhdGU6 EU16KX70lUEcl5P0gKL8F5 BhZGRpbmct qlfpyQP5RDLyIAEsmA87Qj 1bdGzjFn8vZBEkUPT6NEYq rHHeK3UvsP1iBeHdMSYuLQ NnI1AfsZEp ATueN728BWuyDnA8RNOotp VdV3TlVIZpzZizHgJ0m0L5 Ti5CW2L8ZM25YI19pZCao3 R9wDO4F9Ln MTWzykcknaxcpEH3BQSdHI XgbR45Be3pxKncPq6cEUBp HXC4CTJkjGErS7CcdS1hUm AjMDAwMDAw D1IyeHVaVDxgN904AEmkGz C9GLYqxyKqR6NvOHZhmEzz TaP5s9X3An7EDAo6TZ01GG 46lOKkc7W3 zWU2N4OgKQSgyuqkcycxuZ E8GVBvNZNavV82Al9ehRjp Yq0iYYIzAND9FXXqoZTgC5 DusY6sLkKx AOSfPQBuT0SzeFImWIddB3 24XKvgHfJ4FUArbbBeZ1Zm VZVthBaqRdA9p6L8Gg9OJJ UaVZ41BEB4 fNN7SD29QJ51R9VnKxuizF FibGU+PHRhYmxlIHdpZHRo MDtfQLZpWrTjbUoeUB0gCk 9yZGVyLWNv lXuqoUOlZmLvq8agKLVcYS uzUQ0bsLmzH5HgpMX3PRAr v2b9Qj26N25cO9BcaJU+PG ZcwWO5jXB4 xJ8lZnNzYaA9QWtrZ165Dy AfyBHyDwtqn5jbp8sllXl6 XzU8YTHlgbBhtIcwMJZ3j7 JlMo85S41x IHdpZHRoPSIxNSUiIHZhbG akay0fqR5lHm7+PGNvbCB3 lHK7jN5cFcDxGuR5HGcuN7 49InRvcCIv Vdzot5teo6mrtNp6KgQjSS QyshIvjQbfEAR3s6DrOn09 B6KoiDsbi0JqTpr6xf68mM Jiv4L5pQM5 W6GgDQRlprmarIRwdFcfYA 7eMOMmuabdPHTdyY6sEROo I4r7IvVxYaE1DEqqL0Snde E9SJPeeZHy JNuxFZF2E16qu5M1ATNzSY UjEUN8sIT7iK1bgOknlmgn bGVmdDsgdmVydGljYWwtYW omA684BCYy dMgsJJYtfF2bCSCxlOUklI hgQV9dSJVkanxfFnNWDOQq LCBERUxFRTwvdGQ+PHRkIH Y7kJloNZdi EJVvhT1qSGKtF4r4ZfXjHi B8MDcrU4QiSIRbzrseSn22 yH6qDlMrVwR3HHzyL2Dxaj C6PSLzfZRd THemIBY3R38is3I8EOKtLM RiSTE2oPR3eQ0ysMvqlbjs bGVmdDsgdmVydGljYWwtYW pcM303IBUy yRmsTeYbSiU5ZmK9HoR0Q1 CeXux7QDEaqFxiQG4hsLVs QUctFr0bwUdpsUqeOC2pYG BpbjtwYWRk sH2oHDMroBHubYvwFS6kXS Mpeqrqu024KbDjCGQ3HRHf sDEmP2DfhF6tIqJqXDKnHA PoF1YqeIVa ASdjM736UTtsHcM1OVJyab VrW1XtMYNwfFcnXhY8r4X6 Qk95FjNVXWKgrqxsySD+PH EeMGD0eBra GCprDUBaqE1pLNOmD9r1Vm QbQdH4PWatW3GgFWZvuckr La19rE7gGxUwNiY8FUvxQ1 EiufQ0KVVl cKNyJDrwOPV5Q75ys3P9KF UgEXQlLDQ9kYP1wJ8hxSaw bjogbGVmdDsgdmVydGljYW ynFYrxF711 IHRvcDsnPkZlbWFsZTwvdG Q+JWLyAIR8gFxeKCtgABQv tR4oKBSgH0d1WnZcXhP6OG ieR8ZzLFKo emdzUo82iI2rLpGiQuC2SJ nqA8GyhfL2IZCafQJgGFxp EUL6G84sf5O9UBYeOQHzDL X1cPM5aS0o bGlnbjogbGVmdDsgdmVydG syYVmxFLzvO367UCSkiSlr EhDrGWKpAW5mpEwbuLI+PC 93fq77L8Nh TbcgLln6AYRiSRO7aAO9yR 5nPQJyAVxby3Q0bTO0E9Xr ujOnss6uy2rlECSeGCdsM2 0diJHld3W4 DSQdtTR4XHQkuEnkAzPwyC 93Oyc+ANCyhZbwo5AhBbut d4pmd1qhpKe6NuVhURTrtt FsaWduPSJ0 f9UtWe77L90bZUktPPCzTN BwDGLqNUYubUzack3ukH9x Ii8+TCCeeGZ8rBI0tC4lGw ToIiO9QNdb H293TuWktSRrCpghq9ueg8 shpWn9CqHoLLMvtsTjuYrq BXS6t9OoKr76Y0TdyJvnp2 PnGhi1kl45 vPZmk1X7bSH7D6GlLHOyhf kezFSfuDhuWI1uMHQwfjqw CPHgaJ7eYMBzS5f6PfQaKg K4NXbbY7Jo jzK1HEEihAWgFXWeeWBFpX 7xvbxls9uypubpGyWzYLHg KPh5WVj2LZVndSggQqMlEE H5QqZ0SDV7 bVXgiB4tfSevnhmoaD9yYz c+SZq7o6ljfEIsPA6zfHV4 AU16JA38tIRip9C1bLZ6Y9 BhZGRpbmct oafpqRF8QZMnXDJfpV50Gz 2uhKfuLp8qFDBzNKH2GFMw sOMwN5PanM8yIeIqEDQgDX RyX8MtaZVp QEfjF935MOkuVjS3NAGkwd OrO7KdRFOmpLdkJxI1i2F8 Eg9BXI62PW12PV10uWVio5 T4iWP8Y6Bh LXJlfnpvnwihvER7UXSfYF UxvK21Yu0moVmkTh7gGPUz ZGM8XECjzMUsQ8RrvQ2nQg AjMDAwMDAw J0TdxWQnZNyzF387OJwzSx T9WBDuqjFhR8GsFCQjoUps JsV4w6J4Di2FKx07ZT35RP 78xSYhi5V1 gEZ4H0JiHNMptbfxmzrhoF R7AOZrRTQddH31Bg6ugRfs Nr4fJCOjERF1QMResGIxI3 QhkK7qTzQo OOTeIAJhF5XlyBZcORrtN1 82BWicRcP2HFUvjhXvA8Nk PCFbdMgyAuI3z4P6Fw8RMS zrzex7A3Ul PjwvdHI+WZ35INBiYP87hX SamRIln6gwwXr7ChTrEPMy UDP9zQayNUrry4OcHLYcW4 1wpFQhs8A9 IGNv (more content not included)... Normal [facility] Auto Diffon 02-24-2022 Basophils/100 WBC (Bld) 4.4 % High 0.0-2.[address] [facility] Comment on above: Order Comment: Order Added by Discern Expert. Performed By: #### [id number] #### [facility] [address] [place] [address] Basophils/Leukocytes Auto (Bld) [Pure # fraction] 0.3 E9/L High 0.0-0.2 [facility] Comment on above: Order Comment: Order Added by Discern Expert. Performed By: #### 1 [id number], [id number], [id number], 1957717, [id number] #### [facility] [address] [place] [address] Eosinophils/100 WBC (Bld) 3.8 % Normal 0.0-8.0 [facility] Comment on above: Order Comment: Order Added by Discern Expert. Performed By: #### 1 [id number], 7122095, 53872390, 8817725, [id number] #### [facility] [address] [place] [address] Eosinophils/Leukocytes Auto (Bld) [Pure # fraction] 0.3 E9/L Normal 0.0-0.5 [facility] Comment on above: Order Comment: Order Added by Discern Expert. Performed By: #### 1 [id number], 0672684, 36393611, 2696965, [id number] #### [facility] [address] [place] [address] Lymphocytes/100 WBC (Bld) 31.3 % Normal 14.0-50.0 [facility] Comment on above: Order Comment: Order Added by Discern Expert. Performed By: #### 1 [id number], 3082877, 01828206, 1139687, 6610653 #### [facility] [address] [place] [address] Lymphocytes/Leukocytes Auto (Bld) [Pure # fraction] 2.3 E9/L Normal 1.0-4.0 [facility] Comment on above: Order Comment: Order Added by Discern Expert. Performed By: #### 1 [id number], 9282642, 95740542, 0982975, 4552872 #### [facility] [address] [place] [address] Monocytes/100 WBC (Bld) 12.8 % Normal 4.0-14.[address] [facility] Comment on above: Order Comment: Order Added by Andrew Expert. Performed By: #### 1 [id number], 8998359, 79236963, 2747766, 3532655 #### [facility] [address] [place] [address] Monocytes/Leukocytes Auto (Bld) [Pure # fraction] 0.9 E9/L Normal 0.2-1.0 [facility] Comment on above: Order Comment: Order Added by Andrew Expert. Performed By: #### 1 [id number], 7866456, 09227629, 5219600, 3769942 #### [facility] [address] [place] [address] Neutrophils/100 WBC (Bld) 47.7 % Normal 36.0-75.0 [facility] Comment on above: Order Comment: Order Added by Andrew Expert. Performed By: #### 1 [id number], 4113076, 55729802, 3675126, 5031118 #### [facility] [address] [place] [address] Neutrophils/Leukocytes Auto (Bld) [Pure # fraction] 3.5 E9/L Normal 2.0-7.5 [facility] Comment on above: Order Comment: Order Added by Andrew Expert. Performed By: #### 1 [id number], 4089176, 12027609, 7690002, 4982783 #### [facility] [address] [place] [address] BMPon 02-24-2022 Creatinine [Mass/Vol] 0.9 mg/dL Normal 0.5-1.3 [facility] Comment on above: Performed By: #### 1 [id number], 9816509, 00203181, 9876446, 8620004 #### [facility] [address] [place] [address] Urea nitrogen [Mass/Vol] 20 mg/dL Normal 5-21 [facility] Comment on above: Performed By: #### 1 [id number], 0707953, 00342498, 2155633, 6558537 #### [facility] [address] [place] [address] Urea nitrogen/Creatinine [Mass ratio] 22 No Units High 10-20 [facility] Comment on above: Performed By: #### 1 [id number], 7360753, 40543589, 7740518, 4404831 #### [facility] [address] [place] [address] Anion gap [Moles/Vol] 13 mmol/L Normal 6-16 [facility] Comment on above: Performed By: #### 1 9796682, 6592002, 87833114, 3267294, 8483892 #### [facility] [address] [place] [address] Calcium [Mass/Vol] 9.9 mg/dL Normal 8.9-11.1 [facility] Comment on above: Performed By: #### 1 6419664, 6642278, 30783172, 4341147, 2007599 #### [facility] [address] [place] [address] Chloride [Moles/Vol] 104 mmol/L Normal 101-111 [facility] Comment on above: Performed By: #### 1 5180127, 2052233, 08709702, 7433504, 0943933 #### [facility] [address] [place] [address] CO2 [Moles/Vol] 24 mmol/L Normal 21-31 [facility] Comment on above: Performed By: #### 1 4023857, 7444969, 55346461, 4646054, 0436662 #### [facility] [address] [place] [address] Glucose [Mass/Vol] 136 mg/dL Normal 55-199 [facility] Comment on above: Result Comment: If t his glucose result represents a fasting glucose, interpretation should refer to the following reference range: 55-99 mg/dL Performed By: #### 1 [id number], 3639146, 59873854, 4071967, 5878289 #### [facility] [address] [place] [address] Potassium [Moles/Vol] 3.7 mmol/L Normal 3.5-5.3 [facility] Comment on above: Performed By: #### 1 3435912, 6238498, 35040460, 1900295, 8427768 #### [facility] [address] [place] [address] Sodium [Moles/Vol] 137 mmol/L Normal 135-145 [facility] Comment on above: Performed By: #### 1 1492381, 8787848, 42446303, 4113947, 5857653 #### [facility] [address] [place] [address] CBC w/ Auto Diffon Erythrocyte distribution width (RBC) [Ratio] 15.3 % High 10.9-14.2 [facility] Comment on above: Performed By: #### 1 0497033, 6851300, 25196785, 9926039, 6319812 #### [facility] [address] [place] [address] Hematocrit (Bld) [Volume fraction] 43.0 % Normal 34.0-46.0 [facility] Comment on above: Performed By: #### 1 1336884, 8371898, 05419825, 3085955, 7085697 #### [facility] [address] [place] [address] Hemoglobin (Bld) [Mass/Vol] 14.4 g/dL Normal 12.0-16.0 [facility] Comment on above: Performed By: #### 1 6285684, 2003516, 88614201, 0964834, 7868715 #### [facility] [address] [place] [address] MCH (RBC) [Entitic mass] 31.0 pg Normal 27.0-34.0 [facility] Comment on above: Performed By: #### 1 0367944, 1230509, 61536515, 2453189, 1120703 #### [facility] [address] [place] [address] MCHC (RBC) [Mass/Vol] 33.6 g/dL Normal 31.4-36.0 [facility] Comment on above: Performed By: #### 1 6063283, 4569930, 50860872, 9194143, 4938061 #### [facility] [address] [place] [address] MCV (RBC) [Entitic vol] 92.2 fL Normal 80.0-100.0 [facility] Comment on above: Performed By: #### 1 1719916, 8911834, 61164983, 0551388, 7711737 #### [facility] [address] [place] [address] Platelet mean volume (Bld) [Entitic vol] 9.2 fL Normal 6.4-10.8 [facility] Comment on above: Performed By: #### 1 3062593, 4690288, 19894504, 7964451, 8282751 #### [facility] [address] [place] [address] Platelets (Bld) [#/Vol] 137.0 E9/L Low 150.0-500.0 [facility] Comment on above: Performed By: #### 1 5858510, 2622355, 57891947, 5096389, 9501809 #### [facility] [address] [place] [address] RBC (Bld) [#/Vol] 4.7 E12/L Normal 4.3-5.9 [facility] Comment on above: Performed By: #### 1 0549412, 3932099, 16860857, 8364238, 3395834 #### [facility] [address] [place] [address] WBC corrected for nucl RBC Auto (Bld) [#/Vol] 7.3 E9/L Normal 4.0-11.0 [facility] Comment on above: Performed By: #### 1 8221331, 4995976, 52814710, 6736586, 1280652 #### [facility] [address] [place] [address] CHEMISTRYOrdered By: SuperDerivatives SYSTEM on 02-24-2022 Anion gap [Moles/Vol] 13 mmol/L Normal 6 - 16 mEq/L [facility] Remisol Calcium [Mass/Vol] 9.9 mg/dL Normal 8.9 [...] 25.4 s Normal 25.1 - 36.5 second(s) [facility] [place] INR Coag (PPP) [Relative time] 1.1 {INR} Invalid Interpretation Code [facility] PT Coag (PPP) [Time] 13.4 s High 10.2 - 12.9 second(s) [facility] [place] Head or Brain w/o [...] MD Transcribed by: KHANH Technologist: EMELINA Normal [facility] Consent for Treatmenton 02-06 Consent for Treatment [id number] 0CD:127 Normal [facility] Discharge Instructionson Discharge Instructions [id number] 0CD:127 Normal [facility] ED Clinical Summaryon 2021 ED Clinical Summary [address] [address] ED Clinical Summary Person Information Name: ZORAIDA BARRIOS[facility] Age: 86 Years : 1935 Sex: Female Language: Bahraini PCP: LACEY FREY MD Marital Status: Single [...] 02/24/2022 10:32:06 02/24/2022 10:32:06 02/24/2022 10:32:06 ADDRESS: [address] [place] [id number] PHYS DOC NOTES: MEDICAL INFORMATION: Prescriptions Given: PATIENT EDUCATION INFORMATION: Instructions: Hypertension, Adult Follow up: With: Address: When: LACEY FREY [address] [place] [address] Business ([email or web address] In 3 days 02/27/2022 Comments: Increase Losartan to 100 mg a day. Continue Metoprolol 50 mg a day. Make sure to take your blood pressure twice a day and follow-up with Dr. Frey tomorrow at 1 PM at her office. Return to the emergency room if your headache recurs, chest pain, dizziness or any new symptoms. DIAGNOSIS: 1:Accelerated hypertension Normal [facility] ED Note-Physicianon 02-25-20 ED Note-Physician Basic Information Time Seen: Norma PerezDhavalKayDhavalDemond 02/24/2022 08:14 Chief Complaint Pt had surgery [...] reported headache. 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 In the emergency room [...] LACEY FREY In 3 days 02/27/2022 EDT [facility] [place] [address]- Business (1) Additional Instructions: Increase [...] (02/24/22 0 (more content not included)... Normal [facility] Comment on above: Result Comment: Elec tronically Signed By: Demond Green M.D.\.br\Date and Time Signed: 02/24/22 11:07 EDT ED [...] ? Avoi (more content not included)... Normal [facility] ED Patient Summaryon 022 ED Patient Summary [place] [id number] Patient Discharge Instructions Person Information Name: ZORAIDA BARRIOS Age: 86 Years Arrival Date: 02/24/2022 08:11:05 Discharge Diagnosis: 1:Accelerated hypertension Primary Care Physician: LACEY FREY MD Provider Information Primary Provider: Demond Green M.D. Advanced Frame Feeder:None The exam and treatment you received in the Emergency Department were for an urgent problem and are not intended as complete care. It is important that you follow up with a doctor, nurse practitioner, or physician?s assistant media buyer for ongoing care. If your symptoms become worse or you do not improve as expected and you are unable to reach your usual health care provider, you should return to the Emergency Department. We are available 24 hours a day. ZORAIDA BARRIOS has been given the following list of patient education materials, prescriptions and follow-up instructions: Follow-up Instructions: With: Address: When: LACEY FREY [facility] [place] [address] VOZ (1) In 3 days 02/27/2022 Comments: Increase [...] opioids can be used to help relieve hgrzalze-ne-rdhswt pain and are often prescribed following a [...] ? Visit (more content not included)... Normal [facility] HEMATOLOGYOrdered By: SYSTEM SYSTEM on 02-24-2022 [...] [Relative time] 1.1 {INR} Invalid Interpretation Code [facility] Comment on above: Result Comment: INR results are specifically intended to assess patients stabilized on long-term Anticoagulation therapy suggested INR?s ?Less Intensive Anticoagulation? 2.0 ? 3.0 Conventional Range 3.0 ? 4.5 Performed By: #### 1 [id number], 1443030, 58631711, 2922998, 1819319 #### [facility] [address] [place] [address] PT Coag (PPP) [Time] 13.4 second(s) High 10.2-12.9 [facility] Comment on above: Performed By: #### 1 5245721, 3057059, 65017453, 9200210, 0780814 #### [facility] [address] [place] [address] aPTT Coag (PPP) [Time] 25.4 second(s) Normal 25.1-36.5 [facility] Comment on above: Result Comment: Hepa rin therapeutic range (represented by Anti-Factor Xa activity of 0.2 - 0.4 U/mL) corresponds to PTT of 56.6 - 109.0 sec. Performed By: #### 1 [id number], 8743152, 16634689, 3291762, 0888092 #### [facility] [address] [place] [address] Troponin 0 Hr.on 02-24-2022 Troponin I.cardiac [Mass/Vol] 8.10 pg/mL Low 10.10-27.10 [facility] Comment on above: Result Comment: The 95% CI (Confidence Interval) PPV (Positive Predictive Value) for myocardial infarction in females is 38 pg/mL, in males 51 pg/mL. The results should be used in conjunction with clinical conditions of myocardial infarction. (Access High Sensitivity Troponin I Instructions For Use, Gwendolyn Preet, May 2018) Performed By: #### 1 [id number], 8604228, 81451596, 2430083, 5373932 #### [facility] [address] [place] [address] XR Chest Single Viewon 02-24 XR Chest [...] am EDT, Trevon Tyler M.D., DISAGREE Normal [facility] Vital Signs Date Time Vital Sign Value Performing Clinician Facility 07-14-2025 11:44-0400 Diastolic blood pressure 71 mm[Hg] Lacey Frey MD Work Phone: [facility] 07-14-2025 11:44-0400 Heart rate 55 /min Lacey Frey MD Work Phone: [facility] 07-14-2025 11:44-0400 Systolic blood pressure 203 mm[Hg] Lacey Frey MD Work Phone: [facility] 07-14-2025 11:29-0400 Body height 157.48 cm Lacey Frey MD Work Phone: [facility] 07-14-2025 11:29-0400 Body mass index (BMI) [Ratio] 23.4 kg/m2 Lacey Frey MD Work Phone: [facility] 07-14-2025 11:29-0400 Body weight 58.2 kg Lacey Frey MD Work Phone: [facility] 05-12-2025 13:31-0400 Diastolic blood pressure 80 mm[Hg] Lacey Frey MD Work Phone: [facility] 05-12-2025 13:31-0400 Systolic blood pressure 180 mm[Hg] Lacey Frey MD Work Phone: [facility] 05-12-2025 13:21-0400 Body height 157.48 cm Lacey Frey MD Work Phone: [facility] 05-12-2025 13:21-0400 Body mass index (BMI) [Ratio] 24 kg/m2 Lacey Frey MD Work Phone: [facility] 05-12-2025 13:210400 Body weight 59.56 kg Lacey Frey MD Work Phone: [facility] 05-12-2025 13:21-0400 Heart rate 57 /min Lacey Frey MD Work Phone: [facility] 05-12-2025 13:21-0400 Respiratory rate 12 /min Lacey Frey MD Work Phone: [facility] 05-12-2025 13:21-0400 SaO2% (BldA) [Mass fraction] 97 % Lacey Frey MD Work Phone: [facility] 04-14-2025 11:21-0400 Body height 157.48 cm Lacey Frey MD Work Phone: [facility] 04-14-2025 11:21-0400 Body mass index (BMI) [Ratio] 24.1 kg/m2 Lacey Frey MD Work Phone: [facility] 04-14-2025 11:21-0400 Body weight 59.87 kg Lacey Frey MD Work Phone: [facility] 04-14-2025 11:21-0400 Diastolic blood pressure 86 mm[Hg] Lacey Frey MD Work Phone: [facility] 04-14-2025 11:21-0400 Heart rate 57 /min Lacey Frey MD Work Phone: [facility] 04-14-2025 11:21-0400 SaO2% (BldA) [Mass fraction] 97 % Lacey Frey MD Work Phone: [facility] 04-14-2025 11:21-0400 Systolic blood pressure 200 mm[Hg] Lacey Frey MD Work Phone: [facility] 02-04-2025 14:26-0400 Body height 157.48 cm [facility] 02-04-2025 14:26-0400 Body mass index (BMI) [Ratio] 23.9 kg/m2 [facility] 02-04-2025 14:0400 Body weight 59.42 kg [facility] 02-04-2025 14:26-0400 Diastolic blood pressure 74 mm[Hg] [facility] 02-04-2025 14:26-0400 Heart rate 58 /min [facility] 02-04-2025 14:-0400 Systolic blood pressure 177 mm[Hg] [facility] 12-26-2024 13:02-0400 Body height 157.48 cm [facility] 12-26-2024 13:02-0400 Body mass index (BMI) [Ratio] 24.7 kg/m2 [facility] 12-26-2024 13:02-0400 Body weight 61.46 kg [facility] 12-26-2024 13:02-0400 Diastolic blood pressure 74 mm[Hg] [facility] 12-26-2024 13:02-0400 Heart rate 69 /min [facility] 12-26-2024 13:02-0400 Systolic blood pressure 169 mm[Hg] [facility] 11-18-2024 13:05-0500 Body height 157.48 cm [facility] 11-18-2024 13:05-0500 Body mass index (BMI) [Ratio] 24 kg/m2 [facility] 11-18-2024 13:05-0500 Body weight 59.56 kg [facility] 11-18-2024 13:05-0500 Diastolic blood pressure 83 mm[Hg] [facility] 11-18-2024 13:05-0500 Heart rate 65 /min [facility] 11-18-2024 13:05-0500 Systolic blood pressure 176 mm[Hg] [facility] 07-09-2024 14:24-0400 Body height 157.48 cm [facility] 07-09-2024 14:24-0400 Body mass index (BMI) [Ratio] 24.3 kg/m2 [facility] 07-09-2024 14:24-0400 Body weight 60.46 kg [facility] 07-09-2024 14:24-0400 Diastolic blood pressure 98 mm[Hg] [facility] 07-09-2024 14:24-0400 Heart rate 57 /min [facility] 07-09-2024 14:24-0400 Systolic blood pressure 212 mm[Hg] [facility] 05-07-2024 13:44-0400 Body height 157.48 cm [facility] 05-07-2024 13:44-0400 Body mass index (BMI) [Ratio] 23.8 kg/m2 [facility] 05-07-2024 13:44-0400 Body weight 58.96 kg [facility] 05-07-2024 13:44-0400 Diastolic blood pressure 69 mm[Hg] [facility] 05-07-2024 13:44-0400 Heart rate 61 /min [facility] 05-07-2024 13:44-0400 Systolic blood pressure 189 mm[Hg] [facility] 01-08-2024 11:43-0400 Body height 157.48 cm [facility] 01-08-2024 11:43-0400 Body mass index (BMI) [Ratio] 22.8 kg/m2 [facility] 01-08-2024 11:43-0400 Body weight 56.84 kg [facility] 01-08-2024 11:43-0400 Diastolic blood pressure 72 mm[Hg] [facility] 01-08-2024 11:43-0400 Heart rate 61 /min [facility] 01-08-2024 11:43-0400 Systolic blood pressure 179 mm[Hg] [facility] 06-08-2023 14:30-0400 Body height 157.48 cm Lacey Frey Other [facility] Other 06-08-2023 14:30-0400 Body mass index (BMI) [Ratio] 23.13 kg/m2 Lacey Frey Other [facility] Other 06-08-2023 14:30-0400 Body weight 57.38 kg Lacey Frey Other [facility] Other 06-08-2023 14:30-0400 Diastolic blood pressure 77 mm[Hg] Lacey Frey Other [facility] Other 06-08-2023 14:30-0400 Respiratory rate 16 /min Lacey Frey Other [facility] Other 06-08-2023 14:30-0400 Systolic blood pressure 187 mm[Hg] Lacey Frey Other [facility] Other 12-20-2022 15:20-0400 Body height 157.48 cm [facility] [employer] Other [facility] Other 12-20-2022 15:20-0400 Body mass index (BMI) [Ratio] 23.08 kg/m2 [facility] [employer] Other [facility] Other 12-20-2022 15:20-0400 Body temperature 97 [degF] [facility] [employer] Other [facility] Other 12-20-2022 15:20-0400 Body weight 57.24 kg [facility] [employer] Other [facility] Other 03-14-2023 15:20-0400 Diastolic blood pressure 85 mm[Hg] [facility] [employer] Other [facility] Other 12-20-2022 15:20-0400 Respiratory rate 16 /min [facility] Other [facility] Other 12-20-2022 15:20-0400 SaO2% (BldA) [Mass fraction] 100 % [facility] Other [facility] Other 12-20-2022 15:20-0400 Systolic blood pressure 170 mm[Hg] [facility]ox [facility] Other [employer] [facility] Other 02-24-2022 10:12-0400 Diastolic blood pressure 80 mm[Hg] [facility] 02-24-2022 10:12-0400 Heart rate 68 /min [facility] 02-24-2022 10:12-0400 Respiratory rate 15 /min [facility] 02-24-2022 10:12-0400 SaO2% (BldA) [Mass fraction] 98 % [facility] 02-24-2022 10:12-0400 Systolic blood pressure 190 mm[Hg] [facility] 02-24-2022 09:24-0400 Diastolic blood pressure 88 mm[Hg] [facility] 02-24-2022 09:24-0400 Heart rate 66 /min [facility] 02-24-2022 09:24-0400 Respiratory rate 16 /min [facility] 02-24-2022 09:24-0400 SaO2% (BldA) [Mass fraction] 99 % [facility] 02-24-2022 09:24-0400 Systolic blood pressure 190 mm[Hg] [facility] 02-24-2022 08:50-0400 Diastolic blood pressure 100 mm[Hg] [facility] 02-24-2022 08:50-0400 Systolic blood pressure 220 mm[Hg] [facility] 02-24-2022 08:14-0400 Body temperature 98.24 [degF] [facility] 02-24-2022 08:14-0400 Heart rate 74 /min [facility] 02-24-2022 08:14-0400 Respiratory rate 18 /min [facility] 02-24-2022 08:14-0400 SaO2% (BldA) [Mass fraction] 99 % [facility] Encounters Encounter Date Encounter Type Care Provider Facility Start: 07-14-2025 End: 07-14-2025 ambulatory Lacey Frey MD Work Phone: [facility] Work Phone: Start: 07-14-2025 End: 07-14-2025 Patient encounter procedure Lacey Frey MD -[facility] Work Phone: Start: 07-13-2025 Non-patient / Non-visit Maria Isabel Hurtado MD -[facility] Work Phone: Start: 07-10-2025 Non-patient / Non-visit James Wiley DO -[facility] Work Phone: Start: 07-08-2025 Non-patient / Non-visit Valencia Wilkinson CMA -[facility] Work Phone: Start: 07-07-2025 Non-patient / Non-visit Dennys Perez DO -[facility] Work Phone: Start: 05-12-2025 End: 05-12-2025 ambulatory Lacey Frey MD Work Phone: [facility] Work Phone: Start: 05-12-2025 End: 05-12-2025 Patient encounter procedure Lacey Frey MD -[facility] Work Phone: Start: 04-14-2025 End: 04-14-2025 ambulatory Lacey Frey MD Work Phone: [facility] Work Phone: Start: 04-14-2025 End: 04-14-2025 Patient encounter procedure Lacey Frey MD -[facility] Work Phone: Start: 04-07-2025 Non-patient / Non-visit Valencia Wilkinson CMA -[facility] Work Phone: Start: 04-06-2025 Non-patient / Non-visit Daphne LACY -[facility] Work Phone: Start: 02-12-2025 End: 02-12-2025 ambulatory [facility] Start: 02-04-2025 End: 02-04-2025 ambulatory [facility] Work Phone: Start: 02-04-2025 End: 02-04-2025 Patient encounter procedure [facility] Work Phone: Start: 02-03-2025 End: 02-04-2025 Pre-admission assessment Melba Gregorio [facility] Start: 12-26-2024 End: 12-26-2024 ambulatory [facility] Work Phone: Start: 12-26-2024 End: 12-26-2024 Patient encounter procedure [facility] Work Phone: Start: 12-24-2024 Non-patient / Non-visit [facility] Work Phone: Start: 12-23-2024 Non-patient / Non-visit [facility] Work Phone: Start: 11-28-2024 End: 11-28-2024 ambulatory [facility] Start: 11-18-2024 End: 11-18-2024 ambulatory [facility] Work Phone: Start: 11-18-2024 End: 11-18-2024 Patient encounter procedure [facility] Physician [facility] Work Phone: Start: 07-09-2024 End: 07-09-2024 ambulatory [facility] Work Phone: Start: 07-09-2024 End: 07-09-2024 Patient encounter procedure [facility] Physician [facility] Work Phone: Start: 06-28-2024 End: 06-28-2024 ambulatory [facility] Start: 05-15-2024 Non-patient / Non-visit [facility] Physician [facility] [facility] Work Phone: Start: 05-11-2024 Non-patient / Non-visit [facility] Physician [facility] Work Phone: Start: 05-10-2024 Non-patient / Non-visit [facility] Physician [facility] [place] [facility] Work Phone: Start: 05-07-2024 End: 05-07-2024 ambulatory [facility] Work Phone: Start: 05-07-2024 End: 05-07-2024 Patient encounter procedure [facility] Physician [facility] Work Phone: Start: 05-01-2024 End: 05-01-2024 ambulatory [facility] Start: 04-25-2024 Non-patient / Non-visit [facility] Physician [facility] [place] [facility] Work Phone: Start: 03-28-2024 End: 03-28-2024 ambulatory [facility] Start: 01-08-2024 End: 01-08-2024 ambulatory [facility] Work Phone: Start: 01-08-2024 End: 01-08-2024 Patient encounter procedure [facility] Physician [facility] Work Phone: Start: 12-28-2023 Non-patient / Non-visit [facility] Physician [facility] [employer] Work Phone: Start: 06-08-2023 End: 06-08-2023 ambulatory Lacey Tk Other [facility] Other Start: 06-08-2023 Office outpatient visit 15 minutes Lacey Frey [facility] Start: 05-25-2023 End: 05-25-2023 ambulatory Lacey Tk [facility] Other Start: 05-25-2023 Telephone encounter Lacey Frey [facility] Start: 04-25-2023 End: 04-25-2023 ambulatory Lacey Tk [facility] Other Start: 04-25-2023 Telephone encounter Lacey Frey [facility] Start: 03-23-2023 End: 03-23-2023 ambulatory Lacey Frey [facility] Other Start: 03-23-2023 Telephone encounter Lacey Frey [facility] Start: 02-20-2023 End: 02-20-2023 ambulatory Lacey Frey [facility] Other Start: 02-20-2023 Telephone encounter Lacey Frey [facility] Start: 01-17-2023 End: 01-17-2023 ambulatory Lacey Frey [facility] Other Start: 01-17-2023 Telephone encounter Lacey Frey [facility] Start: 12-20-2022 End: 12-20-2022 ambulatory Rox Watson [facility] Other Start: 12-20-2022 [facility] visit new patient Rox Watson [facility] Start: 12-19-2022 End: 12-19-2022 ambulatory Lacey Frey [facility] Other Start: 12-19-2022 Telephone encounter Lacey Frey [facility] Start: 12-10-2022 End: 12-11-2022 ambulatory AALIYAH POOLE Facility:[facility]1 Start: 11-15-2022 End: 11-15-[address] GEORGIE WELLER Facility:[facility] Start: 10-09-2022 End: 10-09-[address] JAMES WILEY . Facility:[facility] Start: 09-30-2022 End: 10-01-2022 ambulatory RADHA HARRINGTON Facility:[facility] Start: 09-26-2022 End: 09-26-[address] HARJINDER RAMIREZ Facility:[facility] Start: 09-21-2022 End: 09-22-[address] LACEY FREY Facility:[facility] Start: 09-18-2022 End: 09-18-[address] GEORGIE WELLER Facility:[facility] Start: 09-11-2022 End: 09-11-[address] JAMES WILEY . Facility:[facility] Start: 09-03-2022 End: 09-04-2022 ambulatory RADHA HARRINGTON Facility:[facility] Start: 09-03-2022 End: 09-03-[address] JAMES WILEY . Facility:[facility] Start: 08-30-2022 End: 08-30-2022 [...] Start: 03-17-2022 End: 03-17-[address] LACEY FRYE Facility:[facility] Start: 02-24-2022 End: 02-24-2022 Emergency department patient visit Demond Green [facility] Plan of Treatment Date Care Activity Detail Author Start: 12-26-2024 Patient referral [facility] Work Phone: Patient referral [facility] Work Phone: US.doppler Carotid a rteries - bilateral [facility] XR Chest 2 Views [facility] Payers Date Payer Category Payer Unknown [id number] 1959 Self-pay 1959 Unknown [id number] 1935 Unknown [id number] 2.16.84 [id number] 1935 Unknown [id number] 2.16.84 0.1.692566.3.579.2.593 1935 Unknown [id number] 2.16.84 0.1.882759.3.579.2.593 1935 Unknown [id number] 2.16.84 0.1.822470.3.579.2.593 1935 Unknown [id number] 2.16.84 0.1.779361.3.579.2.593 1935 Unknown [id number] 2.16.84 0.1.548837.3.579.2.593 1935 Unknown [id number] 2.16.84 0.1.323736.3.579.2.593 1935 Unknown [id number] 2.16.84 0.1.026633.3.579.2.593 1935 Unknown [id number] 2.16.84 0.1.009503.3.579.2.593 1935 Unknown [id number] 2.16.84 0.1.775296.3.579.2.593 1935 Unknown [id number] 2.16.84 0.1.013555.3.579.2.593 1935 Unknown [id number] 2.16.84 0.1.381248.3.579.2.593 1935 Unknown [id number] 2.16.84 0.1.254866.3.579.2.593 1935 Unknown [id number] 2.16.84 0.1.694411.3.579.2.593 1935 Unknown [id number] 2.16.84 0.1.307159.3.579.2.593 1935 Unknown [id number] 2.16.84 0.1.312718.3.579.2.593 1935 Unknown [id number] 2.16.84 0.1.922712.3.579.2.593 1935 Unknown [id number] 2.16.84 0.1.827957.3.579.2.593 1935 Unknown [id number] 2.16.84 0.1.158092.3.579.2.593 Medicare [id number] 2. 16.840.1.309603.19 Unknown [id number] Social History Date Type Detail Facility Tobacco smoking status Unknown i f ever smoked [facility] Sex Assigned At Female [facility] Start: 1935 Sex Assigned At Female F [facility] Work Phone: Start: 02-24-2022 End: 11-18-2024 Sex Female (finding) [facility] Tobacco smoking status [facility]in[facility] Start: 05-12-2025 [facility] ([facility] Clinical Notes 02-24-2022 to 05-12-2025 Note Date & Type Note Facility 05-12-2025 Evaluation note Diagnosis Onset Date Resolution Medicare annual wellness visit, subsequent acute May 12, 2025 1:20pm Resistant hypertension acute Au 2024 1:20pm Tobacco dependence syndrome acute May 12, 2025 1:20pm Pneumonia acute July 14, 025 11:19am [facility] Work Phone: 1(343) 338-249207-07-2025 Evaluation note* Diagnosis Onset Date Resolution Status Admit Date Resistant hypertension acute Ju 2024 11:18am [facility] Work Phone: 1(825) 363-525905-07-2025 NoteUT Cardiology - [facility] Subjective Delesintia Barrios is a 89 [...] presented to the emergency room at the [facility] with elevated blood pressure reading. Blood pressure [...] Take 1 ta (more content not included)... [facility]05-07-2025 NotePatient here for a 3 month follow [...] or heart burn. Review of Systems Constitutional: Negative.[facility]04-29-2025 Evaluation note* Diagnosis Onset Date Resolution Status Admit Date Objective pulsatile tinnitus of both ears acute February 04, 2025 2:23pm Resistant hypertension acute Ap ril 2024 2:23pm [facility] Work Phone: 1(836) 682-787002-20-2025 NoteUT Cardiology - [facility] Subjective Zoraida Barrios is a 89 [...] presented to the emergency room at the [facility] with elevated blood pressure reading. Blood pressure [...] normal, troponin high-sensitivity 8.8, (more content not included)...[facility]02-10-2025 Evaluation note* Diagnosis Onset Date Resolution Status Admit Date Resistant hypertension acute [facility] 2024 1:01pm Objective pulsatile tinnitus of both ears acute December 26, 2024 12:58pm Resistant hypertension acute [facility] 2024 12:58pm [facility] Work Phone: 1(275) 397-653102-10-2025 Evaluation note* Diagnosis Onset Date Resolution Status Admit Date Resistant hypertension acute Fe [facility] 2024 1:01pm Chronic kidney disease, stag e 3b acute December 26, 2024 12:58pm Objective pulsatile tinnitus of both ears acute December 26, 2024 12:58pm Resistant hypertension acute [facility] 2024 12:58pm [facility] Work Phone: 1(633) 569-180009-20-2024 NotePer assessment heart rates in the 50s No concerning symptoms at this time We will continue to monitor Discussed with patient to call office for any lightheadedness, dizziness, passing out she voiced understandingUnTriHealth McCull[facility] 06-28-2024 NoteHypertension is stable for her blood pressure log is very well- controlled in office is always elevated most likely related to whitecoat syndrome Continue medicines as prescribed including carvedilol, clonidine, hydralazine, losartan, spironolactone Renal function stableUnTriHealth McCullough-Hyde Memorial Hospital09-20-2024 Notestable [facility]09-20-2024 NoteUTP CARDIOLOGY PROGRESS NOTE HPI: Zoraida Barrios [...] passing out she voiced understanding RTC 6 monthsUnTriHealth McCull[facility]09-20-2024 NotePt is here for three month follow up. Pt denies sob, chest pain, palpatations. Pt says one of her medications makes her dizzy but she does not know which one. Review of Systems Constitutional: Positive for diaphoresis (1 episode). Neurological: Positive for excessive daytime sleepiness (intermittent). All other systems reviewed and are negative.[facility] 05-01-2024 NoteHypertension is quite variable dependent upon [...] Vit D, Thyroid function and Vitamin B levels.[facility]07-24-2024 NoteCurrently stable [facility]07-24-2024 NotePt reports having noted heart rate 49-50's, and denied any significant symptoms associated. Will continue to monitor and D/W pt to call office for lightheadedness, dizziness, near syncope or syncope and she voiced understandingUnTriHealth McCullough-Hy[facility] Hospital07-24-2024 NoteUTP CARDIOLOGY PROGRESS NOTE HPI: Zoraida Barrios is a 88 y.o. female here for hospital F/U HPI 88 yo female presents today for hospital F/U after recent evaluation for bradycardia Patient here for follow up [facility] ED. Says she went shopping with a [...] negative ED note- Patient: ZORAIDA BARRIOS MR#: [id number] : 1935 Acct:[id number] Age/Sex: 88 / F ADM Date: 04/25/24 [...] place, and time. P (more content not included)...[facility]07-24-2024 NotePatient here for follow up [facility] ED. Says she went shopping with a [...] (intermittent). All other systems reviewed and are negative.[facility] 03-28-2024 NoteStable Continue aldactone, fluid restriction and low sodium diet Continue regular exercise and activityUnTriHealth McCull[facility] Hospital 03-28-2024 NoteWell controlled with aldactone currently no edemaUnTriHealth McCullough-Hy[facility] Hospital06-20-2024 NoteHypertension is unchanged. Dietary sodium restriction. Continue current medications. Blood pressure will be reassessed in 3 months.[facility]06-20-2024 NotePatient here for 2 mo follow up hypertension and diastolic dysfunction. She had routine labs in January 2024. She denies chest pain, SOB, palpitations, and syncope. Sometimes gets lightheaded upon standing up. Review of Systems Neurological: Positive for excessive daytime sleepiness and light-headedness. All other systems reviewed and are negative.[facility] 03-28-2024 NoteUTP CARDIOLOGY PROGRESS NOTE HPI: Zoraida [...] - with her evening/bedtime meds, she voiced understandingCleveland Clinic Foundation08-31-2023 Evaluation note* Encounter Date Diagnosis Assessment Notes Treatment Notes Treatment Clinical Notes May, Other insomnia (ICD-10 - G47.09) Pt states the ativan does help her insomnia and bp. Denies over-sedation symptoms. 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 Recommend taking meds daily and keeping record and discussing bps w her provider there. [facility] Other 03-14-2023 Evaluation note* Encounter Date Diagnosis [...] pressure monitor reveals significantly better blood pressure [facility] Other [id number] Evaluation + Plan noteExtracted from: Title:ED Note [...] Hr. XR Chest Single View [facility]05-19-2022 Hospital Discharge instructions Patient Education 02/24/2022 10:32:06 [...] care provider. This is important. Medicines Take [id number]-[id number] and prescription medicines only as told by [...] 09/25/2006 Document Revised: 06/05/2019 Document Reviewed: 06/05/2019 [employer] Patient Education 2020 T-System. Follow Up Care 02/24/2022 08:13:52 With:LACEY FREY Address: [address] [place], [place] [address]- Business (1) When:02/27/2022 10:23:00 Comments:Increase Losartan to 100 mg a day. Continue Metoprolol 50 mg a day. Make sure to take your blood pressure twice a day and follow-up with Dr. Frey tomorrow at 1 PM at her office. Return to the emergency room if your headache recurs, chest pain, dizziness or any new symptoms. [facility] noteNo InformationNortPa[facility] Other Evaluation noteNo assessment information available [facility] Work Phone: Evaluation note* Diagnosis Onset Date Resolution Status Chronic kidney disease, stage 3b acute Resistant hypertension acute Weight gain, abnormal acute [facility] Work Phone: History general Narrative - Reported* Type Description Date Medical History HYPERTENSION Medical History RENAL IMPAIRMENT Medical History TOBACCO DEPENDENCE SYNDROME Surgical History TUBAL LIGATION Surgical History CHOLECYSTECTOMY Hospitalization History SEE ABOVE [facility] Other Hospital course Narrative No data available for this section [facility] instructionsAmb[facility] Orders* Referral to Vascular Surgery Time Frame: 12/26/24, Location: None Selected [facility] Work Phone: Hospital Discharge instructions No data available for this section [facility] Progress note No data available for this section [facility] Reason for referral (narrative)No reason for referral information availableFirelands Regional Medical [facility] Work Phone: Summary Purpose Family History Relationship [...] Resistant hypertension April 14, 2025 11 :18am Chief Complaint Admit Date Wellness May 12, 2025 1:2 0pm Amb Documentation July 08, 2025 8:54am [facility] ER pneumonia July 14, 2025 11 :19am Reason for Visit Admit Date Medicare annual wellness visit, breana nt May 12, 2025 1:20pm Resistant hypertension May 12, 2025 1:20pm Tobacco dependence syndrome May 12, 2025 1:20pm Pneumonia July 14, 2025 11 :19am Additional Source Comments INFORMATION SOURCE (unrecogn ized section and content) DATE CREATED AUTHOR 03/05/2022 [facility] DATE CREATED AUTHOR AUTHOR'S ORGANIZ ATION 12/13/2022 [facility] DATE CREATED AUTHOR AUTHOR'S ORGANIZ ATION 02/15/2025 [facility] REASON FOR VISIT (unrecogniz ed section [...] Frey MD Primary Care Provider Active Start: July 07, 2025 Dennys Aguilar DO Attending Provider Active Sta rt: July 07, 2025 Team Status: Active Member Role Status Dates Lacey Frey MD Primary Care Provider Active Start: July 08, 2025 Valencia Wilkinson CMA Attending Provider Active Start: July 08, 2025 Team Status: Active Member Role Status Dates Lacey Frey MD Primary Care Provider Active Start: July 10, 2025 James Wiley DO Attending Provider Active Start: July 10, 2025 Team Status: Active Member Role Status Dates Lacey Frey MD Primary Care Provider Active Start: July 13, 2025 Maria Isabel Hurtado MD Attending Provider Active Sta rt: July 13, 2025 Team Status: Inactive Member Role Status Dates Lacey Frey MD Primary Care Provider Active Start: July 14, 2025 End: July 14, 2025 Lacey Frey MD Attending Provider Active St art: July 14, 2025 End: July 14, 2025 Team Status: Active Member Role Status [...] 2025 End: May 12, 2025 Team Status: Inactive Member Role Status [...] 2025 Team Status: Inactive Member Role Status Kenji Frey MD Primary Care Provider Active Start: February 04, 2025 End: February 04, 2025 Lacey Frey MD Attending Provider Active St art: February 04, 2025 End: February 04, 2025 Team Status: Active Member Role Status Kenji Frey MD Primary Care Provider Active Start: July 07, 2025 Dennys Aguilar DO Attending Provider Active Sta rt: July 07, 2025 Team Status: Active Member Role Status Kenji Frey MD Primary Care Provider Active Start: July 08, 2025 Valencia Wilkinson CMA Attending Provider Active Start: July 08, 2025 Team Status: Active Member Role Status Kenji Frey MD Primary Care Provider Active Start: July 10, 2025 James Wiley DO Attending Provider Active Start: July 10, 2025 Team Status: Active Member Role Status Kenji Frey MD Primary Care Provider Active Start: July 13, 2025 Maria Isabel Hurtado MD Attending Provider Active Sta rt: July 13, 2025 Team Status: Inactive Member Role Status Kenji Frey MD Primary Care Provider Active Start: July 14, 2025 End: July 14, 2025 Lacey Frey MD Attending Provider Active St art: July 14, 2025 End: July 14, 2025 Goals (unrecognized section and content) Goals [...] BE BASED ON THE PRIMARY CLINICAL RECORDS. [facility] [employer] provides no warranty or guarantee of the accuracy or completeness of information in this document.
== END 2025-07-18 14:08 | disposition home or self-care (01) ==
LOC: RAD 14:08
PROVIDERS: PCP Family Medicine; Visit Provider Family Medicine
DX: J18.9 Pneumonia, unspecified organism (principal)
CPT/HCPCS: 71046

== ENCOUNTER 2025-08-06 12:28 | Outpatient (OUT) | payer MEDICARE, SELFPAY ==
--- OUTSIDE RECORDS SUMMARY | 2025-07-30 08:16 | XMS_ITS | Continuity of Care Document ---
Author Organization [facility] Address [address] [place] [address] Phone Care Team Providers Care Cinnamon Grinder Name Role Phone Amelia Trinh MD Primary Care Provider Amelia Trinh MD Attending Provider Dennys Aguilar DO Attending Provider Valencia Wilkinson CMA Attending Provider Unavaila James Granados DO Attending Provider Maria Isabel Hurtado MD Attending Provider [phone] Care Teams Patient Care Team Team Status: Active Member Role/Relationship Status Dates Amelia Trinh MD Primary Care Provider Active Visit Care Team Team Status: Inactive Member Role/Relationship Status Dates Amelia Trinh MD Primary Care Provider Active Start: May 12, 2025 End: May 12, 2025Amelia Trinh MDAttrajwinder ProviderActiveStart: May 12, 2025 End: May 12, 2025 Visit Care Team Team Status: Active Member Role/Relationship Status Dates Amelia Trinh MD Primary Care Provider Active Start: July 07, 2025 Dennys Aguilar DOAttrajwinder ProviderActiveStart: July 07, 2025 Visit Care Team Team Status: Active Member Role/Relationship Status Dates Amelia Trinh MD Primary Care Provider Active Start: July 08, 2025 Valencia Wilkinson CMAAttending ProviderActiveStart: July 08, 2025 Visit Care Team Team Status: Active Member Role/Relationship Status Dates Amelia Trinh MD Primary Care Provider Active Start: July 10, 2025 James Dawkins DOAttrajwinder ProviderActiveStart: July 10, 2025 Visit Care Team Team Status: Active Member Role/Relationship Status Dates Amelia Trinh MD Primary Care Provider Active Start: July 13, 2025 Maria Isabel Robert Tapia ProviderActiveStart: July 13, 2025 Visit Care Team Team Status: Inactive Member Role/Relationship Status Dates Amelia Trinh MD Primary Care Provider Active Start: July 14, 2025 End: July 14, 2025Robert Macario ProviderActiveStart: July 14, 2025 End: July 14, 2025 Patient Care Team Team Status: Inactive Member Role/Relationship Status Dates Amelia Trinh MD Primary Care Provider Active Start: July 30, 2025 End: July 30, 2025Robert Macario ProviderActiveStart: July 30, 2025 End: July 30, 2025 Chief Complaint and Reason for Visit Chief Complaint Admit Date Wellness May 12, 2025 1:2 0pm Amb Documentation July 08, 2025 8:54am [facility] pneumonia July 14, 2025 11 :19am Tail bone pain July 30, 2025 1 1:17am Reason for Visit Admit Date Medicare annual wellness visit, subseque nt May 12, 2025 1:20pm Resistant hypertension May 12, 2025 1:20pm Tobacco dependence syndrome May 12, 2025 1:20pm Anxiety July 14, 2025 11 :19am Hypertension July 14, 2025 11 :19am Pneumonia July 14, 2025 11 :19am Pilonidal cyst July 30, 2025 1 1:17am Allergies, Adverse Reactions, Alerts Allergen Type Severity Reaction Last Updated Verified Status Sulfa (Sulfonamide Antibiotics) Allergy Unknown Unknown Reaction July 30, 2025 11:29am Yes Active Social History Smoking Status Status Start Date End Date Date of Observa tion Smokes tobacco daily (finding) May 12, 2025 1:50pm Observation Status Observation Response Date of Response Legal Sex [facility] (finding) [facility] Family History Relationship Condition Age at Onset Recorded Date/T deniz father Unknown family memberDeceasedUnknownmotherHypertensionUnknownDeceasedUnknownsister HypertensionUnknownDeceasedUnknown Problems Active Problems Problem Diagnosis/Recorded Date Onset Date Stat us Chronic kidney disease, stage 3b January 05, 2024 9:01 am Unknown Active Elevated glucose January 09, 2024 8:58am Unknown A ctive Objective pulsatile tinnitus of both ears December 26, 2024 1:36pm Unknown Active Medicare annual wellness vis it, subsequent May 12, 2025 1:59pm Unknown Active Tobacco dependence syndrome January 05, 2024 9:01am Un known Active Pilonidal cyst July 30, 2025 12:02pm Unknown Active Weight gain, abnormal May 07, 2024 2:09pm Unknown Active Anxiety July 21, 2025 11:02am Unknown A ctive Resistant hypertension January 05, 2024 9:01am Unknown Active Other insomnia January 05, 2024 9:01am Unknown Ac tive Abnormal chest xray July 24, 2025 12:51pm Unknown Active Syncope May 07, 2024 2:09pm Unknown Activ e Elevated TSH July 10, 2024 10:03am Unknown Ac tive Hypertension January 05, 2024 9:01am Unknown Acti ve Hypertensive nephropathy January 05, 2024 9:01am Unkno wn Active Pneumonia July 14, 2025 11:58am Unknown Ac tive Medications Medication Status Dose Units Route Directions Qty Days Refills S tart Date Stop Date End Date Reason(s) Instructions Adherence Levothyroxine 50 mcg tablet Discontinued 50 MCG PO Daily 2023 12:00amSeptember 2023 11:42amLevothyroxine 50 mcg tablet Askouqjraqqu04EWGDZCftxg436Ditairkbf 11th, 2024 11:42amNovember 2023 2:12pm Clonidine Hcl 0.2 mg tabletActive0.2MGPOTwice myuie7604Rvtkvqzim 2nd, 2025 2:25pmComplies with drug therapyAspirin 81 mg tablet,nwaqtsmiYreheddeyjir13IPBB DailyMarch 2024 12:002024 1:26pmAtorvastatin 40 mg tablet Gqxdpxmpdytk47CJXAZllhkIshuo 2024 12:002024 1:26pm Hydralazine 50 mg cxwmhhHsoiem876WBFUQqztg times dailyApril 2024 4:03pm Complies with drug therapyLosartan 50 mg qxkmndRwigoe10QKQECxcpdMijd 2024 12:00amComplies with drug therapyCarvedilol 25 mg natmnhEaipsy38OXYSWvwno daily April 14, 2025 12:00ammust administer with a meal/foodComplies with drug therapy Clonidine Hcl 0.2 mg tabletDiscontinued0.2MGPOTwice dailyJuly 2024 12:00am June 10, 2025 2:26pmLevothyroxine 50 mcg gjainwIgwijslppwcp48RKUYAWifwj April 14, 2025 12:00amAugust 2024 1:26pmBuspirone 10 mg aedhosDifljt90PXCV Twice mdfea455Eypdikr 2024 12:00amComplies with drug therapyMetronidazole 500 mg bjchedVyznqi570JJKGNjool svacf810Daifetg 2024 12:00amComplies with drug therapyHydralazine 50 mg cssrbeZcrabdlhkfqz081EVTEDdyrx times dailyMarch 2023 12:00amFebruary 2024 2:40pmLorazepam 0.5 mg tabletDiscontinued 0.5MGPOTwice daily as neededMarch 2023 12:00amApril 2023 11:51am Losartan 100 mg uxwiahKdkeewevwadf5EHBNEWlmyeMxwdb 2023 12:00amApril 2024 4:03pmFreeTextSi tablet Orally Once a day; Note: Source Status: Not- Taking\PRN; Provider: Eros Peñaloza ( )Carvedilol 25 mg tablet Meqedeymhafc5QXGBVYxffh dailyApril 2023 12:00amApril 2024 4:04pm FreeTextSi tablet with food Orally Twice a day; Note: Source Status: Unknown; Provider: Eros Peñaloza ( )Spironolactone 25 mg tablet Ewuuxmkhvvni30KWGMKlynhFomkl 2023 12:00amFebruary 2024 2:16pm FreeTextSi tablet Orally; Note: Source Status: Unknown; Provider: Eros Peñaloza ( )Clonidine Hcl 0.2 mg tabletDiscontinued0.2MGPOTwice dailyApril 2023 12:00amFebruary 2024 2:40pmFreeTextSi tablet Orally TWICE A DAY; Note: Source Status: Unknown; Provider: Eros Peñaloza ( )Hydralazine 50 mg mhuhwhUhrsastfsodu61LYUGYcyvl dailyFebruary 2024 2:39pmMarch 2024 1:15pmClonidine Hcl 0.2 mg tabletDiscontinued0.2MGPO Every morningFebruary 2024 2:40pmApril 2024 4:03pmFreeTextSi tablet Orally TWICE A DAY; Note: Source Status: Unknown; Provider: Eros Peñaloza ( )Hydralazine 50 mg pwwsndAsjkzigcgfhq132WUBRMpkjk dailyMarch 2024 1:13pmApril 2024 4:04pmHydrochlorothiazide 25 mg tablet Txwdtkjkqqfe98SZBILurtf546Gclmufkx 2024 1:00amApril 2024 4:02pm Relevant Diagnostic Tests and/or Laboratory Data Laboratory Results Test Collection Date/Time Result Date/Time Result Interpretation Reference Range Result Comment Performing Site B-Type Natriuretic Peptide July 07, 2025 12:49pm July 07, 2025 12:49pm 418.0 pg/mL <=1800.0Troponin I High SensitivitySept2024 12:49pmSeptember 2024 12:49pm9.9 pg/mL4.0-51.3CUT-OFF POINTS HAVE BEEN ESTABLISHED BASED ON THE FOURTHUNIVERSAL DEFINITION OF MYOCARDIAL INFARCTION. THE UPPERREFERENCE LIMIT (URL) OF TROPONIN, DEFINED THE 99THPERCENTILE OF cTnI DISTRIBUTION IN A REFERENCE POPULATION,HAS BEEN CONFIRMED THE DECISION THRESHOLD FOR MIDIAGNOSIS.99TH PERCENTILE = 51.4 PG/MLNOTE: HIGH-SENSITIVITY TROPONIN ASSAY IS NOT INTENDED TO BEUSED IN ISOLATION BUT SHOULD BE INTERPRETED IN CONJUNCTIONWITH OTHER DIAGNOSTIC AND CLINICAL INFORMATION.Anion GapSeptember 2024 12:49pm July 07, 2025 12:49pm13.6Basophils # (Auto)July 07, 2025 12:49pm July 07, 2025 12:49pm0.2 10 3/uLAbove high normal0.0-0.1Anion GapJuly 10, 2025 12:53pmOctober 2024 12:53pm14.2Basophils # (Auto)July 10, 2025 12:53pmOctober 2024 12:53pm0.2 10 3/uLAbove high normal0.0-0.1Troponin I High SensitivityOct2024 7:50pmOctober 2024 7:50pm8.5 pg/mL 4.0-51.3CUT-OFF POINTS HAVE BEEN ESTABLISHED BASED ON THE FOURTHUNIVERSAL DEFINITION OF MYOCARDIAL INFARCTION. THE UPPERREFERENCE LIMIT (URL) OF TROPONIN, DEFINED THE 99THPERCENTILE OF cTnI DISTRIBUTION IN A REFERENCE POPULATION,HAS BEEN CONFIRMED THE DECISION THRESHOLD FOR MIDIAGNOSIS.99TH PERCENTILE = 51.4 PG/MLNOTE: HIGH-SENSITIVITY TROPONIN ASSAY IS NOT INTENDED TO BEUSED IN ISOLATION BUT SHOULD BE INTERPRETED IN CONJUNCTIONWITH OTHER DIAGNOSTIC AND CLINICAL INFORMATION.Anion GapOct2024 7:50pmOctober 2024 7:50pm 11.8Basophils # (Auto)July 13, 2025 7:50pmOctober 2024 7:50pm0.2 10 3/uLAbove high normal0.0-0.1BUN/Creatinine RatioSept2024 12:49pm July 07, 2025 12:49pm16.2Basophils (%) (Auto)July 07, 2025 12:49pm July 07, 2025 12:49pm2.6 %Above high normal0.2-2.0Albumin/Globulin Ratio July 10, 2025 12:53pmOctober 2024 12:53pm1.2Basophils (%) (Auto)July 10, 2025 12:53pmOctober 2024 12:53pm2.8 %Above high normal0.2-2.0 Albumin/Globulin RatioOct2024 8:50amOctober 2024 8:50am1.1 BUN/Creatinine RatioOct2024 7:50pmOctober 2024 7:50pm22.4 Basophils (%) (Auto)July 13, 2025 7:50pmOctober 2024 7:50pm2.8 %Above high normal0.2-2.0Blood Urea NitrogenSeptember 2024 12:49pmSeptember 2024 12:49pm17.0 mg/dL7.0-18.0Eosinophils # (Auto)July 07, 2025 12:49pm July 07, 2025 12:49pm0.5 10 3/uL0.0-0.7AlbuminOctober 2024 12:53pm July 10, 2025 12:53pm3.7 g/dL3.4-5.0Eosinophils # (Auto)July 10, 2025 12:53pmOctober 2024 12:53pm0.4 10 3/uL0.0-0.7AlbuminOctober 2024 8:50amOctober 2024 8:50am3.3 g/dLBelow low normal3.4-5.0Blood Urea Nitrogen July 13, 2025 7:50pmOctober 2024 7:50pm22.0 mg/dLAbove high normal 7.0-18.0Eosinophils # (Auto)July 13, 2025 7:50pmOctober 2024 7:50pm0.4 10 3/uL0.0-0.7Calcium LevelSeptember 2024 12:49pmSeptember 2024 12:49pm9.5 mg/dL8.5-10.1Eosinophils (%) (Auto)July 07, 2025 12:49pm July 07, 2025 12:49pm5.4 %0.9-7.0Alkaline PhosphataseJuly 10, 2025 12:53pmOctober 2024 12:53pm56 U/A00-435Nopllwjhtql (%) (Auto)July 10, 2025 12:53pmOctober 2024 12:53pm5.4 %0.9-7.0Alkaline PhosphataseOctober 2024 8:50amOctober 2024 8:50am50 U/K73-456Xzetwar LevelOct2024 7:50pmOctober 2024 7:50pm9.9 mg/dL8.5-10.1Eosinophils (%) (Auto) July 13, 2025 7:50pmOctober 2024 7:50pm6.6 %0.9-7.0Chloride Level July 07, 2025 12:49pmSeptember 2024 12:54rq809 mmol/L98-107 HematocritSeptember 2024 12:49pmSeptember 2024 12:49pm44.7 % 36.0-48.0Alanine Aminotransferase (ALT/SGPT)July 10, 2025 12:53pmOctober 2024 12:53pm12 U/LBelow low bsuchc67-91QhihwruyuaWnrvehb 2024 12:53pm July 10, 2025 12:53pm43.1 %36.0-48.0Alanine Aminotransferase (ALT/SGPT) July 13, 2025 8:50amOctober 2024 8:50am11 U/LBelow low cheamu71-60 Chloride LevelOct2024 7:50pmOctober 2024 7:43bs350 mmol/L98-107 HematocritOct2024 7:50pmOctober 2024 7:50pm42.6 %36.0-48.0Carbon Dioxide LevelSeptember 2024 12:49pmSeptember 2024 12:49pm27.2 mmol/L 21.0-32.0HemoglobinSeptember 2024 12:49pmSeptember 2024 12:49pm14.4 g/dL12.0-16.0Aspartate Amino Transf (AST/SGOT)July 10, 2025 12:53pmOctober 2024 12:53pm21 U/Y15-49UgoaxalaznAsglqyh 2nd, 2025 12:53pmOctober 2024 12:53pm14.0 g/dL12.0-16.0Aspartate Amino Transf (AST/SGOT)July 13, 2025 8:50amOctober 2024 8:50am14 U/LBelow low ysmjql66-45Lbydry Dioxide Level July 13, 2025 7:50pmOctober 2024 7:50pm28.0 mmol/L21.0-32.0Hemoglobin July 13, 2025 7:50pmOctober 2024 7:50pm13.9 g/dL12.0-16.0Creatinine July 07, 2025 12:49pmSeptember 2024 12:49pm1.05 mg/dLAbove high normal0.55-1.02Immature Granulocyte # (Auto)July 07, 2025 12:49pm July 07, 2025 12:49pm0.03 10 3/uL0.00-0.03BUN/Creatinine RatioJuly 10, 2025 12:53pmOctober 2024 12:53pm18.1Immature Granulocyte # (Auto) July 10, 2025 12:53pmOctober 2024 12:53pm0.03 10 3/uL0.00-0.03 CreatinineJuly 13, 2025 7:50pmOctober 2024 7:50pm0.98 mg/dL0.55-1.02 Immature Granulocyte # (Auto)July 13, 2025 7:50pmOctober 2024 7:50pm 0.08 10 3/uLAbove high normal0.00-0.03Estimated GFR ()July 07, 2025 12:49pmSeptember 2024 12:49pm60>=60 mL/min/1.73m 2Immature Granulocyte % (Auto)July 07, 2025 12:49pmSeptember 2024 12:49pm0.4 %0.0-0.5Blood Urea NitrogenJuly 10, 2025 12:53pmOctober 2024 12:53pm 17.0 mg/dL7.0-18.0Immature Granulocyte % (Auto)July 10, 2025 12:53pmOctober 2024 12:53pm0.4 %0.0-0.5Estimated GFR ()July 13, 2025 7:50pmOctober 2024 7:50pm>60>=60 mL/min/1.73m 2Immature Granulocyte % (Auto)July 13, 2025 7:50pmOctober 2024 7:50pm1.2 %Above high normal 0.0-0.5Estimated GFR (Non- AmericanSeptember 2024 12:49pmSeptember 2024 12:47co64Flibl low normal>=60 mL/min/1.73m 2Lymphocytes # (Auto) July 07, 2025 12:49pmSeptember 2024 12:49pm1.7 10 3/uL1.2-3.8 Calcium LevelOctober 2024 12:53pmOctober 2024 12:53pm9.5 mg/dL8.5-10.1 Lymphocytes # (Auto)July 10, 2025 12:53pmOctober 2024 12:53pm1.7 10 3/uL1.2-3.8Estimated GFR (Non- AmericanOct2024 7:50pmOctober 2024 7:76os40Lrxov low normal>=60 mL/min/1.73m 2Lymphocytes # (Auto)July 13, 2025 7:50pmOctober 2024 7:50pm2.2 10 3/uL1.2-3.8Glucose LevelSeptember 2024 12:49pmSeptember 2024 12:34kh712 mg/dLAbove high -575 Lymphocytes (%) (Auto)July 07, 2025 12:49pmSeptember 2024 12:49pm 19.8 %Below low tklaph10.5-60.0Chloride LevelOctober 2024 12:53pmOctober 2024 12:40uh221 mmol/I72-425Pjhnnxvvbfj (%) (Auto)July 10, 2025 12:53pm July 10, 2025 12:53pm25.6 %20.5-60.0Glucose LevelOctober 2024 7:50pm July 13, 2025 7:66uv505 mg/dLAbove high -771Fukvconachn (%) (Auto) July 13, 2025 7:50pmOctober 2024 7:50pm33.4 %20.5-60.0Potassium Level July 07, 2025 12:49pmSeptember 2024 12:49pm3.8 mmol/L3.5-5.1Mean Corpuscular HemoglobinSeptember 2024 12:49pmSeptember 2024 12:49pm 29.5 pg26.7-34.0Carbon Dioxide LevelOctober 2024 12:53pmOctober 2024 12:53pm26.4 mmol/L21.0-32.0Mean Corpuscular HemoglobinOctober 2024 12:53pm July 10, 2025 12:53pm29.5 pg26.7-34.0Potassium LevelOctober 2024 7:50pm July 13, 2025 7:50pm3.8 mmol/L3.5-5.1Mean Corpuscular HemoglobinOctober 2024 7:50pmOctober 2024 7:50pm29.3 pg26.7-34.0Sodium LevelSeptember 2024 12:49pmSeptember 2024 12:70lm020 mmol/Z616-891Tcsq Corpuscular Hemoglobin ConcentSept2024 12:49pmSeptember 2024 12:49pm32.2 g/dL29.9-35.2CreatinineOctober 2024 12:53pmOctober 2024 12:53pm0.94 mg/dL0.55-1.02Mean Corpuscular Hemoglobin ConcentOctober 2024 12:53pm July 10, 2025 12:53pm32.5 g/dL29.9-35.2Sodium LevelOctober 2024 7:50pm July 13, 2025 7:93ke495 mmol/E959-182Ykrr Corpuscular Hemoglobin Concent July 13, 2025 7:50pmOctober 2024 7:50pm32.6 g/dL29.9-35.2Mean Corpuscular VolumeSeptember 2024 12:49pmSeptember 2024 12:49pm91.6 fL81.0-99.0Estimated GFR ()July 10, 2025 12:53pmOctober 2024 12:53pm>60>=60 mL/min/1.73m 2Mean Corpuscular VolumeOct2024 12:53pmOctober 2024 12:53pm90.9 fL81.0-99.0Mean Corpuscular VolumeOct2024 7:50pmOctober 2024 7:50pm89.9 fL81.0-99.0Monocytes # (Auto) July 07, 2025 12:49pmSeptember 2024 12:49pm1.2 10 3/uLAbove high normal0.3-0.8Estimated GFR (Non- AmericanOct2024 12:53pmOctober 2024 12:26dy64Rpsas low normal>=60 mL/min/1.73m 2Monocytes # (Auto)July 10, 2025 12:53pmOctober 2024 12:53pm0.9 10 3/uLAbove high normal0.3-0.8 Monocytes # (Auto)July 13, 2025 7:50pmOctober 2024 7:50pm0.7 10 3/uL 0.3-0.8Monocytes (%) (Auto)July 07, 2025 12:49pmSeptember 2024 12:49pm14.9 %Above high normal1.7-12.0GlobulinJuly 10, 2025 12:53pmOctober 2024 12:53pm3.1 g/dLMonocytes (%) (Auto)July 10, 2025 12:53pmOctober 2024 12:53pm13.2 %Above high normal1.7-12.0GlobulinJuly 13, 2025 8:50am July 13, 2025 8:50am3.0 g/dLMonocytes (%) (Auto)July 13, 2025 7:50pm July 13, 2025 7:50pm10.3 %1.7-12.0Mean Platelet VolumeSeptember 2024 12:49pmSeptember 2024 12:49pm11.4 fL9.5-13.5Glucose LevelOct2024 12:53pmOctober 2024 12:80ke204 mg/dLAbove high nkcgti79-501Svqs Platelet VolumeOct2024 12:53pmOctober 2024 12:53pm10.9 fL9.5-13.5Mean Platelet VolumeOct2024 7:50pmOctober 2024 7:50pm11.2 fL9.5-13.5 Neutrophils # (Auto)July 07, 2025 12:49pmSeptember 2024 12:49pm4.7 10 3/uL1.4-6.5Potassium LevelOct2024 12:53pmOctober 2024 12:53pm 3.6 mmol/L3.5-5.1Neutrophils # (Auto)July 10, 2025 12:53pmOctober 2024 12:53pm3.5 10 3/uL1.4-6.5Neutrophils # (Auto)July 13, 2025 7:50pmOctober 2024 7:50pm3.1 10 3/uL1.4-6.5Neutrophils (%) (Auto)July 07, 2025 12:49pmSeptember 2024 12:49pm56.9 %43.0-75.0Sodium LevelOct2024 12:53pmOctober 2024 12:93bg853 mmol/W595-344Jncpceagppn (%) (Auto)July 10, 2025 12:53pmOctober 2024 12:53pm52.6 %43.0-75.0Neutrophils (%) (Auto) July 13, 2025 7:50pmOctober 2024 7:50pm45.7 %43.0-75.0Platelet Count July 07, 2025 12:49pmSeptember 2024 12:72vp214 10 3/uLBelow low -167Hqybc BilirubinOct2024 12:53pmOctober 2024 12:53pm 0.6 mg/dL0.2-1.0Platelet CountOctober 2024 12:53pmOctober 2024 12:53pm 114 10 3/uLBelow low fgylcl084-415Oflar BilirubinOctober 2024 8:50amOctober 2024 8:50am0.6 mg/dL0.2-1.0Platelet CountOctober 2024 7:50pmOctober 2024 7:83vi246 10 3/uLBelow low uzkhhh309-339Ghu Blood CountSeptember 2024 12:49pmSeptember 2024 12:49pm4.88 10 6/uL4.20-5.40Total Protein July 10, 2025 12:53pmOctober 2024 12:53pm6.8 g/dL6.4-8.2Red Blood Count July 10, 2025 12:53pmOctober 2024 12:53pm4.74 10 6/uL4.20-5.40Total ProteinOct2024 8:50amOctober 2024 8:50am6.3 g/dLBelow low normal 6.4-8.2Red Blood CountOct2024 7:50pmOctober 2024 7:50pm4.74 10 6/uL4.20-5.40Red Cell Distribution WidthSeptember 2024 12:49pmSeptember 2024 12:49pm14.6 %11.0-15.0Red Cell Distribution WidthOct2024 12:53pmOctober 2024 12:53pm14.7 %11.0-15.0Red Cell Distribution Width July 13, 2025 7:50pmOctober 2024 7:50pm14.6 %11.0-15.0Corrected White Blood CountSeptember 2024 12:49pmSeptember 2024 12:49pm8.3 10 3/uL 4.0-11.0Corrected White Blood CountOctober 2024 12:53pmOctober 2024 12:53pm6.7 10 3/uL4.0-11.0Corrected White Blood CountOctober 2024 7:50pm July 13, 2025 7:50pm6.7 10 3/uL4.0-11.0 Vital Signs Vital Reading Result Reference Range Collection Date/Time Height 62 [in_i] May 12, 2025 1:52mqFmabqe46.56 kgAugust 2024 1:21pmHeart Rate57 /min 60-100August 2024 1:21pmRespiratory rate12 /fbl65-86Xfjgin 2024 1:21pm Oxygen saturation by Pulse loosdgud46 %95-100August 2024 1:21pmBP Systolic 180 mm[Hg]100-140August 2024 1:31pmBP Lvkwluiut43 mm[Hg]60-100August 2024 1:31pmBMI (Body Mass Index)24.0 kg/d1Lukdwe 2024 1:84bmWbnotm90 [in_i] July 14, 2025 11:85iuIyniyq21.20 kgOctober 2024 11:29amHeart Rate55 /pww75-747Rurjqkj 2024 11:44amBP Utqyhaar043 mm[Hg]100-140October 2024 11:44amBP Cwxoqubdj86 mm[Hg]60-100October 2024 11:44amBMI (Body Mass Index)23.4 kg/d0Kkmwnfd 2024 11:37urKnzfpo23 [in_i]July 30, 2025 11:86txLynwkn10.05 kgOctober 2024 11:27amHeart Rate68 /iiy94-961Zvcrxef 2024 11:35amBP Wsjchniq609 mm[Hg]100-140October 2024 11:35amBP Jmbamoswq32 mm[Hg]60-100October 2024 11:35amBMI (Body Mass Index)23.3 kg/a7Raaqnsx 2024 11:27am Advance Directives Advance Directive Response Recorded Date/ Time Advance Directives No January 02 11:20am Insurance Providers Guarantor Chris Anaya Address [address] [place] [id number] Info.Home Phone: Payer Group Member ID Coverage Type Subscriber Relationship to Subscriber Effective Date Expiration Date Rossi GUERRERO Id: [id number] Reitz , M Id: [id number] [address] [place], [place] [address]ney [facility] [address] Home Phone: Email: [email or web address] ([email or web address] Encounters Encounter Location(s) Arrival/Admit Date Discharge/Departure Date Discharge/Departure Disposition Provider(s) Departed Physician/ Provider Office Visit -[facility] May 12, 2025 1:20pm May 12, 2025 1:56pm Discharged to home care or self care (routine discharge) Amelia Trinh MD Non-patient / Non-visit -[facility] July 07, 2025 12:49pm Chris Spears-patient / [facility] 8:54amCatJessica Elliott-patient / Rms-splem-[facility]October 2024 12:53pm([place]) Kim Nash-patient / Yge-gukzt-[facility]October 2024 8:50amMamary jo Hurtado MD [facility]arted Physician/Provider [facility] 11:19amOctober 2024 12:30pmDischarged to home care or self care (routine discharge)DOMINGO Macarioeparted Physician/Provider [facility] 11:17amOctober 2024 12:15pm Discharged to home care or self care (routine discharge)Amelia Trinh MD Recent Diagnosis Onset Date Admit Date Medicare annual wellness visit, subsequent Unkno wn May 12, 2025 1:20pm Resistant hypertension Unknown May 1:20pm Tobacco dependence syndrome Unknown 2024 1:20pm Anxiety Unknown July 14 11:19am Hypertension Unknown July 14 11:19am Pneumonia Unknown July 14 11:19am Pilonidal cyst Unknown July 30 11:17am Assessments Diagnosis Onset Date Resolution Status Admit Date Medicare annual wellness visit, subseque nt acuteAugust 2024 1:20pmResistant hypertensionacuteAugust 2024 1:20pm Tobacco dependence syndromeacuteAugust 2024 1:20pmAnxietyacuteOctober 2024 11:19amHypertensionacuteOctober 2024 11:19amPneumoniaacuteOctober 2024 11:19amPilonidal cystacuteOctober 2024 11:17am Plan of Treatment Author Amelia Trinh [facility] 2024 2:00pmPersonalized health advice was given to the beneficiary to health education of preventative counseling services or programs aimed at reducing identified risk factors and improving self-management or community-based lifestyle interventions to reduce health risks and promote self-management and wellness, including physical activity and nutrition. Continue present medications. Continue scheduled followup w [facility] Card[facility]. Reassurance provided regarding her home bp readings. Recommend activity as able and relaxation as needed. Offered information on quitting smoking. Author Amelia Trinh [facility] 2024 11:03amRecheck CXR when antibiotic finished. Continue present medications and present dosing and frequency. Delee agrees to start buspar for anxiety. Discussed link between anxiety and elevated BP Future Tests Future scheduled test information is unavailable Pending Tests Test Name Ordered Date Scheduled Date XR chest 2V* July 14, 2025 11:57am Future Visits Future appointment information is unavailable Future Procedures Future procedure information is unavailable Future Medications Future medication information is unavailable Patient Instructions Patient instructions are unavailable
--- OUTSIDE RECORDS SUMMARY | 2025-08-06 12:33 | XMS_ITS | Clinical Summary ---
Author Organization [facility] Address [address] [place] [address] Care Team Providers Care Manager Programming Name Role Phone Amelia Trinh MD Primary Care Provider Allergies Active AllergyReactionsCriticalityNoted DateCommentsSpironolactoneOther 11/28/2024Sulfa (Sulfonamide Antibiotics)06/22/2022 Medications MedicationSigDispense QuantityRefillsLast FilledStart DateEnd DateStatus levothyroxine (Synthroid, Levoxyl) 50 mcg tablet Take 50 mcg by mouth in the morning.4Active losartan (Cozaar) 50 mg tablet Indications:Benign hypertensive heart disease without congestive heart failure Take 1 tablet (50 mg) by mouth two times daily. 180 tablet 4Active hydrALAZINE (Apresoline) 100 mg tablet Indications:Primary hypertensionTake 1 tablet (100 mg) by mouth three times daily. 270 tablet 502/6Active hydroCHLOROthiazide (HYDRODiuril) 25 mg tablet Indications:Primary hypertensionTake 0.5 tablet by mouth every day. 45 tablet 5Active Additional Information Patient not taking.Reported on 02/12/2025 cloNIDine (Catapres) 0.2 mg tablet Indications:Primary hypertensionTake 1 tablet (0.2 mg) by mouth in the morning and at bedtime. 180 tablet 5Active atorvastatin (Lipitor) 40 mg tablet Take 1 tablet by mouth in the morning.5Active aspirin 81 mg chewable tablet Chew 1 tablet in the morning.5Active carvedilol (Coreg) 25 mg tablet Indications:Essential hypertensionTAKE 1 TABLET BY MOUTH WITH BREAKFAST AND EVENING MEAL 180 tablet 5Active Active Problems ProblemNoted DateDiagnosed DateChronic kidney disease, stage 3b06/04/2024 Elevated rchmxgn7006/04/2024Hypertensive hzcminknwpe98/27/2024Other insomnia 06/04/20241632Wfskusz98/27/2024Tobacco dependence dmwywgkk15/27/2024Weight gain, simlykhh05/27/2024symptomatic vmbngxbqkov57/24/2024 Assessment & Plan (06/28/2024 2:31 PM EDT): Per assessment heart rates in the 50s No concerning symptoms at this time We will continue to monitor Discussed with patient to call office for any lightheadedness, dizziness, passing out she voiced understanding Assessment & Plan (05/01/2024 11:26 AM EDT): Pt reports having noted heart rate 49-50's, and denied any significant symptoms associated. Will continue to monitor and D/W pt to call office for lightheadedness, dizziness, near syncope or syncope and she voiced understanding Hypotension due to drugs02/17/2023 Assessment & Plan (06/28/2024 1:58 PM EDT): stable Assessment & Plan (05/01/2024 11:26 AM EDT): Currently stable Assessment & Plan (2023 7:39 AM EST): Currently stable Assessment & Plan (06/07/2023 1:48 PM EDT): Currently stable without any syncopal episodes Assessment & Plan (02/17/2023 3:04 PM EDT): Will hold amlodipine r/t noted hypotension Edema, lower ixvqokmyg06/12/2022 Assessment & Plan (03/29/2024 7:22 AM EDT): Well controlled with aldactone currently no edema Assessment & Plan (2023 7:42 AM EST): Currently resolved and she has stopped lasix and potassium. D/W pt that if edema reoccurs she can take lasix with potassium as needed Assessment & Plan (06/07/2023 1:49 PM EDT): Currently stable Assessment & Plan (02/17/2023 3:05 PM EDT): Recommended pt to take lasix and potassium as needed for leg swelling for 2-3 days until resolved. Assessment & Plan (12/02/2022 3:57 PM EST): Start diuretic - lasix 20 mg daily- monitor renal function in light of h/o VERONICA- CKD. States she has appointment with nephrology next month. Assessment & Plan (09/07/2022 3:38 PM EST): No edema today Assessment & Plan (07/20/2022 2:01 PM EDT): At this time we will consider holding amlodipine in light that leg swelling improved with cutting it in half. If edema does not resolve after stopping amlodipine at that point will order echocardiogram to reevaluate cardiac function and valvular function. Diastolic bodnusfgowc52/12/2022 Assessment & Plan (03/29/2024 7:21 AM EDT): Stable Continue aldactone, fluid restriction and low sodium diet Continue regular exercise and activity Assessment & Plan (2023 7:42 AM EST): Currently stable Assessment & Plan (06/07/2023 1:49 PM EDT): Patient is currently euvolemic without exacerbation without taking Lasix daily Assessment & Plan (02/17/2023 3:05 PM EDT): Resume lasix Assessment & Plan (12/02/2022 3:56 PM EST): In light of BLE edema will add lasix 20 mg daily with potassium supplement Repeat BMP next week D/W pt to limit fluid intake to 1.5-2L per day and decrease sodium intake Assessment & Plan (09/07/2022 3:37 PM EST): Stable, euvolemic today Assessment & Plan (07/20/2022 2:01 PM EDT): Recommended spironolactone for added blood pressure management and management of her edema and a little diuretic effect and she refused Will consider repeat echocardiogram at next visit Hypertensive tjmwlurj46/13/2022 Assessment & Plan (06/28/2024 2:31 PM EDT): Hypertension is stable for her blood pressure log is very well-controlled in office is always elevated most likely related to whitecoat syndrome Continue medicines as prescribed including carvedilol, clonidine, hydralazine, losartan, spironolactone Renal function stable Assessment & Plan (05/01/2024 11:28 AM EDT): Hypertension is quite variable dependent upon he level [...] D, Thyroid function and Vitamin B levels. Assessment & Plan (03/28/2024 4:03 PM EDT): Hypertension is unchanged. Dietary sodium restriction. Continue current medications. Blood pressure will be reassessed in 3 months. Assessment & Plan (2023 7:41 AM EST): Hypertension is much better controlled with occasional hypotension that she knows when b/p is low and I relax and hydrate until I feel better. Continue hydralazine, coreg, clonidine, losartan and aldactone Assessment & Plan (06/07/2023 1:49 PM EDT): Hypertension is Controlled and blood pressure in office is well controlled currently continue all medications Assessment & Plan (02/17/2023 2:32 PM EDT): Hypertension is controlled with some hypotension and dizziness after taking her pills in the morning. Hold amlodipine and continue to monitor B/P Goal b/p is 130/80 or less Assessment & Plan (12/02/2022 3:55 PM EST): Hypertension is much better- 147/72- reviewed b/p log and typically b/p is well controlled < 130/80 with a few outliers. Will check bmp next week Assessment & Plan (09/07/2022 3:37 PM EST): Hypertension is improving s/p addition of hydralazine 50 mg tid Continue coreg 12.5 mg bid, losartan 100 and clonidine 0.2 mg bid Renal function normal Assessment & Plan (07/20/2022 2:00 PM EDT): Blood pressure elevated here 168/78 think she has a whitecoat component to this. Reviewed her bloodpressure log at home she has some high outliers of blood pressures but majority are between 130-150over 80s, typically in she is adamant she does not feel well if her blood pressure goes much lower than this. She is also adamant she does not want to add any medications to her regimen, and does notwant any kind of diuretic/water pill because she pees too much now and is up 3-4 times during the night. Renal function remains stable we will stop amlodipine and increase carvedilol to 12.5 mg twice daily continue clonidine 0.2 mg twice daily and losartan 100 mg daily Continue to monitor renal function she is supposed to follow-up with nephrology as recommended by her PCP Staff to call patient in about 2 weeks to see and review her blood pressure log- if blood pressure stable in edema improved she will return to clinic in 6 months Resolved Problems ProblemNoted DateDiagnosed DateResolved DateChronic systolic heart failure Implantable cardioverter-defibrillator (ICD) in situ Assessment & Plan (07/20/2022 1:27 PM EDT): Site well healed, incision without s/s of infection Mild swelling and soreness at site- d/w pt to continue OTC Tylenol as directed and apply ice to area prn for 20 min at a time. 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 Immunizations ImmunizationAdministration DatesNext DueInfluenza, High Dose Seasonal, Preservative Free07/19/2018,07/17/2017,07/20/2016,07/10/2015Influenza, High-dose Seasonal, Quadrivalent, Preservative Free07/13/2021Influenza, Seasonal, Quadrivalent, Wzzicibfys88/08/2020Influenza, trivalent, asnxkskywb51/17/2019 Moderna 12 YR UP Vaccine BiValent Wunfzxi0708/05/2021,12/08/2020,11/10/2020 Pneumococcal Conjugate PCV 131Pneumococcal Polysaccharide PPV23 07/16/2020 Family History Medical HistoryRelationNameCommentsHypertensionMotherRelationNameStatusComments FatherDeceasedMotherDeceased Social History Tobacco UseTypesPacks/DayYears UsedDateSmoking Tobacco: Every DayCigarettes Smokeless Tobacco: Never Tobacco Cessation:Ready to Q uit: Not Asked; Counseling Given: Not Answered Alcohol UseStandard Drinks/WeekCommentsYes0 (1 standard drink = 0.6 oz pure alcohol)occasionalUT Safety & EnvironmentAnswerDate RecordedFear of Current or Ex-PartnerNot on file11/30/2023Emotionally AbusedNot on file11/30/2023hysically AbusedNot on file11/30/2023Sexually AbusedNot on file11/30/2023hysically or Sexually AbusedNot on file11/30/2023CommentsUnknownSex and Gender InformationValueDate RecordedSex Assigned at KayabStausj74/05/2025 11:41 AM EDT Legal IpnZqafel22/29/2022 10:58 PM EDTGender VmpzbtzwPqthsr01/05/2025 11:41 AM EDTSexual OrientationHeterosexual or Jhabelay34/05/2025 11:41 AM EDT Last Filed Vital Signs Vital SignReadingTime TakenCommentsBlood Mpmywpeo506/9202/12/2025 12:50 PM EDT Efubs0569/07/2025 12:50 PM EDTTemperature--Respiratory Vhho690701/08/2024 1:48 PM EDTOxygen Djsklznluz35%02/12/2025 12:50 PM EDTInhaled Oxygen Concentration-- Svgmyu44.8 kg (134 lb)02/12/2025 12:50 PM APTQjgdht506.5 cm (5' 2 )02/12/2025 12:50 PM EDTBody Mass Index24.51002/12/2025 12:50 PM EDT Plan of Treatment Health MaintenanceDue DateLast DoneCommentsMedicare Annual Wellness (AWV) 1935Depression Woqgutrjb19/18/1948Adult Ukidudv8510/26/1957Zoster Vaccines (1 of 2)1985Fall Risk Sygmwaguq51/18/2001COVID-19 Vaccine ( season), 08/14/2023, 08/05/2021, Additional history exists Influenza Vaccine (#1), 08/14/2023, 08/08/2022, Additional history existsPneumococcal Vaccine: 50+ ZwykgVewabwibv37/08/2020, 07/19/2018HIB VaccinesAged OutNo longer eligible based on patient's age to complete this topic HPV VaccinesAged OutNo longer eligible based on patient's age to complete this topicIPV VaccinesAged OutNo longer eligible based on patient's age to complete this topicMeningococcal B VaccineAged OutNo longer eligible based on patient's age to complete this topicMeningococcal VaccineAged OutNo longer eligible based on patient's age to complete this topicRotavirus VaccinesAged OutNo longer eligible based on patient's age to complete this topic Insurance Care Teams Team MemberRelationshipSpecialtyStart DateEnd Date Amelia Trinh MD [address] [facility]06/22/22
--- OUTSIDE RECORDS SUMMARY | 2025-08-06 12:33 | XMS_ITS | Clinical Summary ---
Author Organization [facility] Address [address] [place] [address] Care Team Providers Care Lay Out Helper Name Role Phone Unavailable Primary Care Provider Unavailabl e Social History Tobacco UseTypesPacks/DayYears UsedDateSmoking Tobacco: Never Assessed CommentsUnknownSex and Gender InformationValueDate RecordedSex Assigned at Not on fileLegal EjeOtting76/01/2023 8:34 PM EDTGender IdentityNot on fileSexual OrientationNot on file Last Filed Vital Signs Vital SignReadingTime TakenCommentsBlood Rtwzfiic773/80011/05/2019 12:00 PM EST Pulse--Temperature--Respiratory Rate--Oxygen Saturation--Inhaled Oxygen Concentration--Xqentj59.3 kg (122 lb)11/05/2019 12:00 PM GWFXizuui305.5 cm (5' 2 )11/05/2019 12:00 PM ESTBody Mass Index22.31011/05/2019 12:00 PM EST Plan of Treatment Not on file Insurance
--- OUTSIDE RECORDS SUMMARY | 2025-08-06 12:33 | XMS_ITS | Patient Health Record ---
Author Organization [facility] [place] Address [address] [place] [address] Care Team Providers Care Fourdrinier Wire Weaver Name Role Phone None, Unknown or Primary Care Provider Unavailab le Allergies Allergen (clinical drug ingredient) Drug/Non Drug Allergy documented on EMR Reaction Allergy Type Onset Date Status Substance with sulfonamide s tructure and antibacterial mechanism of action (substance) Sulfa Antibiotics Unknown Drug Allergy Active Reason For Referral No Information Medications Medication SIG (Take, Route, Frequency, Duration) Notes Start Date End Date Status Spironolactone 25 MG 1 tablet Orally 01/25/2024ctivecloNIDine 0.2 MG/24HR1 patch to skin Dzqvokscsqb07/18/2024ctive Losartan Potassium 50 MG1 tablet Orally Once a day01/25/2024ctiveCarvedilol 25 MG1 tablet with food Orally Twice a day01/25/2024ctivehydrALAZINE HCl 25 MG1 tablet with food Orally 2 x dailyActivehydrALAZINE HCl 50 MG1 tablet with food Orally 2 x daily01/25/2024ctive Social History Tobacco Use: Social History Observation Description Date Details (start date - stop date) Current Smoker NA - NA Tobacco Control (Standard) Question Answer Notes Tobacco use: Current every day smoker Problems Problem Type SNOMED Code ICD Code Onset Dates Problem Status W/U Status Risk Notes Problem Hypertension (75152804) HTN (hypertension ) (I10) Activeconfirmed Plan Of Treatment No Information Insurance Providers Payer Name Payer Address Payer Phone Subscriber Number Group Number Insured Name Patient Relationship to Insured Coverage Start Date Coverage End Date [employer] [address] [place] [address] [id number] Hiram Barrios - patient is the insured Medical (General) History Medical History History ICD Code hypertension Surgical History Surgery Date(Month/Year) cholecystectomy
--- NOTE | 2025-08-06 12:35 | CT_ITS ---
The [address] [address] Patient Name: ZORAIDA GAYTAN MRN: [id number] date: 1935 Sex: F Assigned Patient Location: CT Current Patient Location: CT Accession/Order Number: [id number] Exam Date: 08/06/2025 12:40 Report Date: 08/06/2025 21:58 At the request of: LACEY FREY MD Procedure: CT chest w con CT CHEST WITH INTRAVENOUS CONTRAST: CLINICAL HISTORY: Abnormal Chest Xray COMPARISON: Chest x-ray 07/18/2025 TECHNIQUE: Spiral images were obtained through the chest following intravenous administration of IV contrast. This CT exam was performed using one or more following dose reduction techniques: Automated exposure control, adjustment of the mA and/or kV according to patient size, or use of iterative reconstruction technique. FINDINGS: Mediastinum:Remaining with coronary artery disease. No pericardial effusion. No pathologically enlarged mediastinal or hilar adenopathy. Lungs:Emphysematous changes. Spiculated nodule medial aspect right upper lobe 7 x 8 mm in size. Spiculated nodule superior segment right lower lobe 6 x 5 mm in size. Subpleural opacity left lung left lower lobe noted 0.8 x 1.1 cm in size, indeterminate. Corresponding to finding fracture, this spiculated mass opacity or scarring measuring 1.3 x 1.3 cm in size. Minimal right basilar atelectasis and or scarring. No pneumothorax. Abd:[There is abnormal enhancement vascular thickening involving the left renal pelvis partially visualized there is a right adrenal enhancing nodule noted 1.6 x 1.4 cm in size.] Soft tissues/Bones: Multilevel degenerative changes throughout the thoracic spine. CT/CT chest w con IMPRESSION: Confirmation of the abnormality within left upper lobe with focal spiculated opacity,, unclear if this represents a focal area of scarring versus developing nodule. Please note there are additional areas of spiculated nodular identified noted including a 6 mm nodule superior segment right lower lobe and questionable subpleural opacity versus scarring left lower lobe. At minimum, these require follow-up. Left adrenal nodule, enhancing 1.7 cm in size. Slight thickening left renal collecting system and with abnormal enhancement could represent focal scarring, infectious etiology versus neoplasm Given these findings. Recommend further evaluation with CT abdomen pelvis with contrast. Impression dictated by: Rajesh Jiménze M.D. 08/06/2025 9:58 PM Dictation Location: [place] [address] Electronically authenticated by: [id number] Y Date: 08/06/2025 21:58
--- OUTSIDE RECORDS SUMMARY | 2025-08-06 12:38 | XMS_ITS | CCD ---
Author Organization [facility] Care Team Providers Care Carbonation Equipment Tender Name Role Phone LACEY FREY Primary Care [...] Care Unavailable RADHA HARRINGTON Admitting Unavailable ANIRUDH, RAHDA Attending Unavailable RADHA HARRINGTON Consulting Unavailable TK, DR LACEY Ashton Primary Care Unavailable PAY ., DR GARCIA Admitting Unavailable PAY ., DR GARCIA Attending Unavailable JAMES, DR HARJINDER Resendiz Consulting Unavailable PAY ., DR GARCIA Consulting Unavailable AL .DAPHNE Consulting Unavailable JAMES, DR HARJINDER Resendiz Consulting Unavailable EVAN BERGMAN Attending Unavailable EVAN BERGMAN Admitting Unavailable TK, DR LACEY Ashton Primary Care Unavailable EVAN BERGMAN Consulting Unavailable ANIRUDH, RADHA Attending Unavailable ANIRUDH, RADHA Admitting Unavailable AINRUDH, RADHA Consulting Unavailable TK, DR LACEY Ashton [...] TK, DR LACEY Ashton Primary Care Unavailable BISHOP, DR BERTHA Logan Consulting Unavailable ALGHOTHANI, MOHAMAD Consulting Unavailable Lacey Frey Unavailable Adolfo Watsonaicha Unavailable MISSY BAUER Attending Unavailable VIRGILIO, AALIYAH Attending Unavailable VIRGILIO, AALIYAH Attending Unavailable VIRGILIO, AALIYAH Attending Unavailable EDVIN LISA Attending Unavailable Lacey Frey MD Primary Care Provider Lacey Frey MD Attending Provider [phone] Daphne Emanuel PA-C Attending Provider Unavailable Valencia Wilkinson CMA Attending Provider UnavailLacey Rodriguez MD Primary Care Provider Lacey Frey MD Attending Provider Lacey Frey MD Primary Care Provider Lacey Frey MD Attending Provider Dennys Aguilar DO Attending Provider Valencia Wilkinson CMA Attending Provider Unavaila abebe Wiley DO James Daisha Attending Provider Maria Isabel Hurtado MD Attending Provider [phone] Allergies Allergy ClassificationReported Allergen(s)Allergy TypeDate of OnsetReaction(s) Facility (2 sources)Sulfonamides (Antibiotic); Translations: [sulfa drugs]Drug allergy [facility] (2 sources)Sulfonamides (Antibiotic)Drug allergy (disorder)[facility])Substance with sulfonamide structure and antibacterial mechanism of action (substance)[facility] Other (1 source)Spironolactone; Translations: [SPIRONOLACTONE]Drug Dbovczy23-02-2319 [facility] Repository (1 source)Sulfonamides (Antibiotic); Translations: [SULFA (SULFONAMIDE ANTIBIOTICS)]Propensity to adverse reactions to drug (disorder)06-22-2022 [facility] Repository Medications Current Medications MedicationDrug Class(es)DatesSig (Normalized)Sig (Original)amLODIPine 5 mg oral tablet (10 sources)Dihydropyridine Calcium Channel Blockertake 1 tablet by mouth every twenty-four hoursbusPIRone hydrochloride 10 mg oral tablet (1 source)Start: 67-58-4009aach 1 tablet by mouth twice dailyBuspirone 10 mg tablet Active 10 MG PO Twice daily 60 0 July 14, 2025 12:00am Complies with drug therapycarvedilol 25 mg oral tablet (20 sources)alpha-Adrenergic Atif, beta-Adrenergic BlockerStart: 04-14-2025 take 1 tablet by mouth twice daily at mealtimeCarvedilol 25 mg tablet Active 25 MG PO Twice daily April 14, 2025 12:00am must administer with a meal/food Complies with drug therapyStart: 01-08-2024 End: 20-51-9692xfqw 1 tablet by mouth twice daily at mealtimetake 1 tablet by mouth every twelve hourscloNIDine hydrochloride 0.2 mg oral tablet (20 sources)Central alpha-2 Adrenergic AgonistStart: 04-14-2025 End: 25-57-8611fdwk 1 tablet by mouth twice dailyClonidine Hcl 0.2 mg tablet Active 0.2 MG PO Twice daily 180 0 June 10, 2025 2:25pm Complies with drug therapyStart: 11-18-2024 End: 53-72-3333mvfi 1 tablet by mouth once daily in the morningStart: 01-08-2024 End: 97-54-5770kkhs 1 tablet by mouth twice dailytake 1 tablet by mouth every twelve hoursfurosemide 20 mg oral tablet (10 sources)Loop DiuretichydrALAZINE hydrochloride 50 mg oral tablet (20 sources)Arteriolar VasodilatorStart: 46-16-5019kjnv 2 tablets by mouth three times dailyHydralazine 50 mg tablet Active 100 MG PO Three times daily February 04, 2025 4:03pm Complies with drug therapyStart: 12-26-2024 End: 49-75-4343fbiv 2 tablets by mouth twice dailyHydralazine 50 mg tablet Discontinued 100 MG PO Twice daily December 26, 2024 1:13pm February 04, 2025 4:04pmStart: 11-18-2024 End: 20-15-2643Ivrtcwhvofe 50 mg tablet Discontinued 75 MG PO Twice daily November 18, 2024 2:39pm December 26, 2024 1:15pmStart: 01-05-2024 End: 47-50-5312jfup 2 tablets by mouth three times dailyHydralazine 50 mg tablet Discontinued 100 MG PO Three times daily January 05, 2024 12:00am 2024 2:40pmStart: 07-64-3943syxh 100 mg by mouth three times dailyHydralazine Active 100 MG PO Three times daily January 05, 2024 12:00amtake 2 tablets by mouth every eight hourshydrALAZINE HCl 50 MG 2 tablet with food Orally Three times a day Activelosartan potassium 50 mg oral tablet (20 sources)Angiotensin 2 Receptor BlockerStart: 35-67-9956qslz 1 tablet by mouth once dailyLosartan 50 mg tablet Active 50 MG PO Daily April 14, 2025 12:00am Complies with drug therapyStart: 01-08-2024 End: 64-27-0642qazc 1 tablet by mouth once dailyLosartan 100 mg tablet Discontinued 1 TAB PO Daily January 08, 2024 12:00am February 04, 2025 4:03pm F reeTextSi tablet Orally Once a day; Note: Source Status: Not-Taking\PRN; Provider: Eros Peñaloza ( )take 1 tablet by mouth every twenty- four hoursmetroNIDAZOLE 500 mg oral tablet (1 source)Nitroimidazole AntimicrobialStart: 31-93-8831dgqi 1 tablet by mouth twice dailyMetronidazole 500 mg tablet Active 500 MG PO Twice daily July 30, 2025 12:00am Complies with drug therapymicroencapsulated potassium chloride 10 meq extended release oral tablet (10 sources)take 1 tablet by mouth once daily at mealtime as needed Completed/Discontinued Medications MedicationDrug Class(es)DatesSig (Normalized)Sig (Original)aspirin 81 mg chewable tablet (6 sources)Platelet Aggregation Inhibitor, Nonsteroidal Anti-inflammatory Drug Start: 12-26-2024 End: 15-42-3351njis 1 tablet by mouth once dailyAspirin 81 mg tablet,chewable Discontinued 81 MG PO Daily December 26, 2024 12:00am May 1251:26pm atorvastatin 40 mg oral tablet (6 sources)HMG-CoA Reductase InhibitorStart: 12-26-2024 End: 82-69-5182nzwy 1 tablet by mouth once dailyAtorvastatin 40 mg tablet Discontinued 40 MG PO Daily December 26, 2024 12:00am May 12, 2025 1:26pm hydroCHLOROthiazide 25 mg oral tablet (7 sources)Thiazide DiureticStart: 11-18-2024 End: 82-26-3988rziu 1 tablet by mouth once dailyHydrochlorothiazide 25 mg tablet Discontinued 25 MG PO Daily 07 11November 18, 2024 1:00am February 04, 2025 4:02pmlevothyroxine sodium 0.05 mg oral tablet (19 sources)l-ThyroxineStart: 04-14-2025 End: 13-75-8254cgzd 1 tablet by mouth once dailyLevothyroxine 50 mcg tablet Discontinued 50 MCG PO Daily April 14, 2025 12:00am May 12, 2025 1:26pm Start: 05-17-2024 End: 90-04-0029duas 1 tablet by mouth once dailyLevothyroxine 50 mcg tablet Discontinued 50 MCG PO Daily 07 11June 19, 2024 11:42am 2023 2:12pmLORazepam 0.5 mg oral tablet (20 sources)BenzodiazepineStart: 01-05-2024 End: 39-14-6366utla 1 tablet by mouth twice daily as neededLorazepam 0.5 mg tablet Discontinued 0.5 MG PO Twice daily as needed January 05, 2024 12:00am 2023 11:51amStart: 12-48-6391axjg 1 tablet by mouth twice daily as neededLORazepam 0.5 MG 1 tab Orally Twice a day prn for 30 days She needs an appt and doesn't answer our phone calls. May, ActiveStart: 05-25-2023 take 1 tablet by mouth once daily as neededLORazepam 0.5 MG TAKE 1 TABLET BY MOUTH EVERY DAY NEEDED for 30 days She needs an appt and doesn't answer our phone calls. May, ActiveStart: 01-37-9042lmxo 1 tablet by mouth once daily as neededLORazepam 0.5 MG TAKE 1 TABLET BY MOUTH EVERY DAY NEEDED for 30 days Apr, ActiveStart: 07-86-8144tbfn 1 tablet by mouth once daily as neededLORazepam 0.5 MG TAKE 1 TABLET BY MOUTH EVERY DAY NEEDED for 30 days Mar, ActiveStart: 99-35-3786ngog 1 tablet by mouth once daily as needed LORazepam 0.5 MG TAKE 1 TABLET BY MOUTH EVERY DAY NEEDED for 30 days Jan, ActiveStart: 05-20-5462kffh 1 tablet by mouth once daily as neededLORazepam 0.5 MG TAKE 1 TABLET BY MOUTH EVERY DAY NEEDED for 30 days Nov, Activespironolactone 25 mg oral tablet (20 sources)Aldosterone AntagonistStart: 01-08-2024 End: 86-99-5460jqlp 1 tablet by mouth once daily Problems Active Problems Problem ClassificationProblemDateDocumented DateEpisodic/ChronicAnxiety disorders (3 sources)Anxiety disorder, unspecified; Translations: [Anxiety]Onset: 887841-61-0828YelziisFaygvsg kidney disease (20 sources)Chronic kidney disease stage 3B ; Translations: [Chronic kidney disease, stage 3b]68-19-1554WqeuescUytknpbz mellitus without complication (9 sources)Increased glucose level; Translations: [Other abnormal glucose] 42-87-4495BcmsrsgsQhofqhllb hypertension (20 sources)Essential hypertension; Translations: [Essential (primary) hypertension]Onset: 37-18-1253BgjhhseYvozb valve disorders (1 source)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; Translations: [RHEUMATIC D/O AORTIC TRICUSPID VALV]Onset: 09-00-8605BdsfjbtKbohwrmeeqoc with complications and secondary hypertension (20 sources)Hypertensive urgency; Translations: [Hypertension secondary to other renal disorders]Onset: 64-46-8968XhvwqqmOcsopfwkhci chest pain (5 sources)Other chest pain; Translations: [Chest pain, unspecified]Onset: 55-47-9254OyxqcwfpTukis aftercare (1 source)Other fci (current) drug therapy; Translations: [OTH POWDER COMPOUNDER 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 THERAPY]Onset: 85-95-4168RnvwcffjKqlzd and ill-defined heart disease (3 sources)Other ill-defined heart diseases; Translations: [OTHER ILL-DEFINED HEART DISEASES]Onset: 41-98-4171UxxtpezPmewb ear and sense organ disorders (7 sources)Bilateral objective pulsatile tinnitus of ears; Translations: [Pulsatile tinnitus, bilateral]35-28-0390BdqfzdecQwodc ear and sense organ disorders (2 sources)Pulsatile tinnitus, bilateral; Translations: [Objective tinnitus] 46-30-4083XijaomrmEiozf lower respiratory disease (3 sources)Shortness of breath; Translations: [SHORTNESS OF BREATH]Onset: 49-71-3936BvajejseFbcbp nutritional; endocrine; and metabolic disorders (9 sources)Abnormal weight gain; Translations: [Abnormal weight gain]05-07-2024 EpisodicOther nutritional; endocrine; and metabolic disorders (2 sources)Abnormal weight gain; Translations: [Abnormal weight gain]05-07-2024 EpisodicOther screening for suspected conditions (not mental disorders or infectious disease) (1 source)Abnormal findings on diagnostic imaging of other specified body structures; Translations: [Abnormalchest x-ray]66-88-7111QeyypdoFfroa screening for suspected conditions (not mental disorders or infectious disease) (7 sources)Raised TSH level; Translations: [Other specified abnormal findings of blood chemistry]40-83-0645ZqgkbpweBdyyeavab (except that caused by tuberculosis or sexually transmitted disease) (4 sources)Pneumonia; Translations: [Pneumonia, unspecified organism]07-14-2025 EpisodicResidual codes; unclassified (11 sources)Insomnia; Translations: [Other insomnia]30-06-5888NkxdwucFcbygiyo codes; unclassified (1 source)Other insomniaChronicResidual codes; unclassified (4 sources)Procedure and treatment not carried out due to patient leaving prior to being seen by health care provider; Translations: [PROC AND TX NOT CARRIED OUT PT LEAVE]Onset: 63-07-5784PfnvbjxjEaifmkwn codes; unclassified (1 source)Acquired absence of other specified parts of digestive tract; Translations: [ACQ ABSENCE OTH PART DIGESTV TRACT]Onset: 58-50-1687KuullyumVkum and subcutaneous tissue infections (2 sources)Pilonidal cyst; Translations: [Pilonidal cyst without abscess] 15-65-7018DrmodfwjDilyymvpj-related disorders (13 sources)Nicotine dependence, cigarettes, uncomplicated; Translations: [Tobacco dependence syndrome]Onset: 863979-08-5071EygscxqIvkwgug (9 sources)Syncope; Translations: [Syncope and collapse]50-98-9550Umvqtjyh Unclassified (1 source)CONTACT W/AND (SUSP) EXPOS COVID-19; Translations: [CONTACT W/AND (SUSP) EXPOS COVID-19]Onset: 09-28-2022 Past or Other Problems Problem ClassificationProblemDateDocumented DateEpisodic/ChronicCardiac dysrhythmias (2 sources)Bradycardia, unspecified; Translations: [Bradycardia, unspecified] Onset: 03-59-7578XxmuiwomDcwjidj kidney disease (1 source)Chronic kidney diseaseComplications of surgical procedures or medical care (2 sources)Hypotension due to drugs; Translations: [Hypotension due to drugs] Onset: 60-48-5546HlsyylewPthsmvep codes; unclassified (3 sources)Localized edema; Translations: [LOCALIZED EDEMA]Onset: 07-20-2022 Episodic Results Test NameValueInterpretationReference RangeFacilityBasophils Auto (Bld) [#/Vol] Ordered By: Albert Bergman on 82-69-8832Xaqmcknqe (Bld) [#/Vol]0.2 10 3/uLHigh 0.0-0.1FAshtabula General HospitalBasophils/100 WBC Auto (Bld)Ordered By: Albert Bergman on 62-49-1343Ituvvaeso/100 WBC (Bld)2.8 %High0.2-2.0[facility] CenterEosinophils/100 WBC Auto (Bld)Ordered By: Albert Bergman on 67-14-0944Abseymvwnlf/100 WBC (Bld)6.6 %0.9-7.0[facility] CenterErythrocyte distribution width Auto (RBC) [Ratio]Ordered By: Albert Bergman on 53-61-1214Zsxqaedwtrw distribution width (RBC) [Ratio]14.6 %11.0-15.0 [facility] CenterGlobulin Calc (S) [Mass/Vol]Ordered By: Maria Isabel Hurtado on 09-60-8834Yyiglmaj (S) [Mass/Vol]3.0 g/dLAdena Regional Medical CenterGlomerular filtration rate (GFR) estimation in non- AmericanOrdered By: Albert Bergman on 29-87-8448QAY/1.73 sq M.predicted among non-blacks MDRD (S/P/Bld) [Vol rate/Area]53 mL/min/{1.73_m2}Low>=60 mL/min/1.73m 2FAshtabula General HospitalHematocrit Auto (Bld) [Volume fraction]Ordered By: Albert Bergman on 21-59-4469Iorocnryor (Bld) [Volume fraction]42.6 %36.0-48.0 [facility] CenterHemoglobin [Mass/volume] in BloodOrdered By: Albert Bergman on 73-32-1635Cgazbuzgrd (Bld) [Mass/Vol]13.9 g/dL12.0-16.0 [facility] CenterLaboratory - Chemistry and Chemistry - challengeOrdered By: Albert Bergman on 74-17-9079Fpgwnli [Mass/Vol]9.9 mg/dL 8.5-10.1FAshtabula General HospitalChloride [Moles/Vol]105 mmol/L98-107 [facility] CenterCO2 [Moles/Vol]28.0 mmol/L21.0-32.0[facility] CenterCreatinine [Mass/Vol]0.98 mg/dL0.55-1.02[facility] CenterGFR/1.73 sq M.predicted MDRD (S/P/Bld) [Vol rate/Area] mL/min/{1.73_m2}>=60 mL/min/1.73m 2FAshtabula General HospitalGlucose [Mass/Vol]149 mg/tITivi12-274KnhhlvlafAdena Regional Medical CenterPotassium [Moles/Vol]3.8 mmol/L3.5-5.1FTrinity Health System East Campusodium [Moles/Vol] 141 mmol/X564-511BjwyszybtAdena Regional Medical CenterUrea nitrogen [Mass/Vol]22.0 mg/dLHigh7.0-18.0[facility] CenterUrea nitrogen/Creatinine [Mass ratio]22.4 mg/mgAdena Regional Medical CenterLaboratory - Chemistry and Chemistry - challengeOrdered By: Maria Isabel Hurtado on 54-54-7048Yokvveg [Mass/Vol]3.3 g/dLLow3.4-5.0[facility] CenterALP [Catalytic activity/Vol]50 U/N16-048QcinwujppAdena Regional Medical CenterALT [Catalytic activity/Vol]11 U/LLow 14-59[facility] CenterAST [Catalytic activity/Vol]14 U/IXby44-95 [facility] CenterBilirubin [Mass/Vol]0.6 mg/dL0.2-1.0[facility] CenterProtein [Mass/Vol]6.3 g/dLLow6.4-8.2FAshtabula General HospitalLaboratory - Hematology and Cell countsOrdered By: Albert Bergman on 08-97-4667Arascmkw granulocytes/100 WBC (Bld)1.2 %High0.0-0.5FAshtabula General HospitalLeukocytes [#/volume] corrected for nucleated erythrocytes in Blood by Automated counOrdered By: Albert Bergman on 07-13-2025 WBC corrected for nucl RBC Auto (Bld) [#/Vol]6.7 10 3/uL4.0-11.0[facility] CenterLymphocytes Auto (Bld) [#/Vol]Ordered By: Albert Bergman on 16-81-5368Qmhsnljurom (Bld) [#/Vol]2.2 10 3/uL1.2-3.8[facility] CenterLymphocytes/100 WBC Auto (Bld)Ordered By: Albert Bergman on 22-35-0164Ugorcwsaqzx/100 WBC (Bld)33.4 %20.5-60.0[facility] CenterH Auto (RBC) [Entitic mass]Ordered By: Albert Bergman on 31-20-7709OVU (RBC) [Entitic mass]29.3 pg26.7-34.0[facility] CenterMCHC Auto (RBC) [Mass/Vol]Ordered By: Albert Bergman on 15-93-7932RMXL (RBC) [Mass/Vol]32.6 g/dL29.9-35.2FAshtabula General HospitalMCV Auto (RBC) [Entitic vol] Ordered By: Albert Bergman on 17-58-7314WTF (RBC) [Entitic vol]89.9 fL81.0-99.0 [facility] CenterMonocytes Auto (Bld) [#/Vol]Ordered By: Albert Bergman on 55-20-8354Clrvnvhjq (Bld) [#/Vol]0.7 10 3/uL0.3-0.8[facility] CenterMonocytes/100 WBC Auto (Bld)Ordered By: Albert Bergman on 82-68-3607Nfyofovnr/100 WBC (Bld)10.3 %1.7-12.0[facility] Neutrophils Auto (Bld) [#/Vol]Ordered By: Albert Bergman on 25-52-0854Pvztadpcvji (Bld) [#/Vol]3.1 10 3/uL1.4-6.5FAshtabula General HospitalNeutrophils/100 WBC Auto (Bld)Ordered By: Albert Bergman on 07-84-9766Jakjbtlmimw/100 WBC (Bld) 45.7 %43.0-75.0[facility] CenterNo Panel InformationOrdered By: Albert Bergman on 25-47-0323Puytlrroafi # (Auto)0.4 10 3/uL0.0-0.7FAshtabula General HospitalImmature Granulocyte # (Auto)0.08 10 3/uLHigh0.00-0.03 [facility] CenterTroponin I High Sensitivity8.5 pg/mL4.0-51.3 [facility] CenterComment on above:CUT-OFF POINTS HAVE BEEN ESTABLISHED BASED ON THE FOURTHUNIVERSAL DEFINITION OF MYOCARDIAL INFARCTION. THE UPPERREFERENCE LIMIT (URL) OF TROPONIN, DEFINED THE 99THPERCENTILE OF cTnI DISTRIBUTION IN A REFERENCE POPULATION,HAS BEEN CONFIRMED THE DECISION THRESHOLD FOR MIDIAGNOSIS.99TH PERCENTILE = 51.4 PG/MLNOTE: HIGH-SENSITIVITY TROPONIN ASSAY IS NOT INTENDED TO BEUSED IN ISOLATION BUT SHOULD BE INTERPRETED IN CONJUNCTIONWITH OTHER DIAGNOSTIC AND CLINICAL INFORMATION.Platelet mean volume Auto (Bld) [Entitic vol]Ordered By: Albert Bergman on 20-01-5512Xbasybgl mean volume (Bld) [Entitic vol]11.2 fL9.5-13.5FAshtabula General Hospital Platelets Auto (Bld) [#/Vol]Ordered By: Albert Bergman on 18-92-6348Zrjiljnue (Bld) [#/Vol]118 10 3/tHDpo917-587PsghfjsslAdena Regional Medical CenterRBC Auto (Bld) [#/Vol]Ordered By: Albert Bergman on 09-85-2121OIL (Bld) [#/Vol]4.74 10 6/uL4.20-5.40[facility] Centererum or plasma albumin/globulin mass ratioOrdered By: Maria Isabel Hurtado on 66-51-6365Zadecyz/Globulin [Mass ratio]1.1 {ratio}[facility] Centererum or plasma anion gap determination Ordered By: Albert Bergman on 14-15-7441Lsndm gap [Moles/Vol]11.8 mmol/LFAshtabula General HospitalBasophils Auto (Bld) [#/Vol]Ordered By: James Wiley on 71-79-8254Xkebjmzkx (Bld) [#/Vol]0.2 10 3/uLHigh0.0-0.1FAshtabula General HospitalBasophils/100 WBC Auto (Bld)Ordered By: James Wiley on 07-10-2025 Basophils/100 WBC (Bld)2.8 %High0.2-2.0[facility] Eosinophils/100 WBC Auto (Bld)Ordered By: James Wiley on 83-05-9981Yqvqlldjdft/100 WBC (Bld)5.4 %0.9-7.0[facility] CenterErythrocyte distribution width Auto (RBC) [Ratio]Ordered By: James Wiley on 17-03-1505Hdiukqqlgia distribution width (RBC) [Ratio]14.7 %11.0-15.0[facility] Globulin Calc (S) [Mass/Vol]Ordered By: James Wiley on 82-36-5843Ewofpggm (S) [Mass/Vol]3.1 g/dLAdena Regional Medical CenterGlomerular filtration rate (GFR) estimation in non- AmericanOrdered By: James Wiley on 07-10-2025 GFR/1.73 sq M.predicted among non-blacks MDRD (S/P/Bld) [Vol rate/Area]56 mL/min/{1.73_m2}Low>=60 mL/min/1.73m 2FAshtabula General Hospital Hematocrit Auto (Bld) [Volume fraction]Ordered By: James Wiley on 07-10-2025 Hematocrit (Bld) [Volume fraction]43.1 %36.0-48.0[facility] CenterHemoglobin [Mass/volume] in BloodOrdered By: James Wiley on 07-10-2025 Hemoglobin (Bld) [Mass/Vol]14.0 g/dL12.0-16.0[facility] Laboratory - Chemistry and Chemistry - challengeOrdered By: James Wiley on 79-02-4969Biofsyw [Mass/Vol]3.7 g/dL3.4-5.0[facility] CenterALP [Catalytic activity/Vol]56 U/H35-995IpbayoxiaAdena Regional Medical CenterALT [Catalytic activity/Vol]12 U/LEau95-96BiyswlpojAdena Regional Medical CenterAST [Catalytic activity/Vol]21 U/O42-92Qhcorabzf Regional Medical CenterBilirubin [Mass/Vol]0.6 mg/dL0.2-1.0[facility] CenterCalcium [Mass/Vol]9.5 mg/dL8.5-10.1FAshtabula General HospitalChloride [Moles/Vol]105 mmol/L 98-107[facility] CenterCO2 [Moles/Vol]26.4 mmol/L21.0-32.0 [facility] CenterCreatinine [Mass/Vol]0.94 mg/dL0.55-1.02 [facility] CenterGFR/1.73 sq M.predicted MDRD (S/P/Bld) [Vol rate/Area]mL/min/{1.73_m2}>=60 mL/min/1.73m 2FAshtabula General Hospital Glucose [Mass/Vol]114 mg/qZCckx02-032AjzwnmmimAdena Regional Medical CenterPotassium [Moles/Vol]3.6 mmol/L3.5-5.1FAshtabula General HospitalProtein [Mass/Vol] 6.8 g/dL6.4-8.2FTrinity Health System East Campusodium [Moles/Vol]142 mmol/L 136-145[facility] CenterUrea nitrogen [Mass/Vol]17.0 mg/dL 7.0-18.0[facility] CenterUrea nitrogen/Creatinine [Mass ratio] 18.1 mg/mgAdena Regional Medical CenterLaboratory - Hematology and Cell countsOrdered By: James Wiley on 74-50-8881Knofmmfp granulocytes/100 WBC (Bld)0.4 % 0.0-0.5FAshtabula General HospitalLeukocytes [#/volume] corrected for nucleated erythrocytes in Blood by Automated counOrdered By: James Wiley on 89-24-3708WQZ corrected for nucl RBC Auto (Bld) [#/Vol]6.7 10 3/uL4.0-11.0 [facility] CenterLymphocytes Auto (Bld) [#/Vol]Ordered By: James Wiley on 83-58-0214Uvyddhlvpua (Bld) [#/Vol]1.7 10 3/uL1.2-3.8[facility] CenterLymphocytes/100 WBC Auto (Bld)Ordered By: James Wiley on 07-10-2025 Lymphocytes/100 WBC (Bld)25.6 %20.5-60.0[facility] CenterH Auto (RBC) [Entitic mass]Ordered By: James Wiley on 70-33-6570BIP (RBC) [Entitic mass]29.5 pg26.7-34.0[facility] CenterMCHC Auto (RBC) [Mass/Vol] Ordered By: James Wiley on 95-61-8105YOAP (RBC) [Mass/Vol]32.5 g/dL29.9-35.2 [facility] CenterMCV Auto (RBC) [Entitic vol]Ordered By: James Wiley on 61-93-2411YSI (RBC) [Entitic vol]90.9 fL81.0-99.0[facility] CenterMonocytes Auto (Bld) [#/Vol]Ordered By: James Wiley on 07-10-2025 Monocytes (Bld) [#/Vol]0.9 10 3/uLHigh0.3-0.8[facility] Monocytes/100 WBC Auto (Bld)Ordered By: James Wiley on 56-77-7845Kzzhuqwll/100 WBC (Bld)13.2 %High1.7-12.0[facility] CenterNeutrophils Auto (Bld) [#/Vol]Ordered By: James Wiley on 20-63-4653Pnldsqmijqs (Bld) [#/Vol]3.5 10 3/uL 1.4-6.5FAshtabula General HospitalNeutrophils/100 WBC Auto (Bld)Ordered By: James Wiley on 83-95-9514Usvnbuoapjk/100 WBC (Bld)52.6 %43.0-75.0[facility] CenterNo Panel InformationOrdered By: James Wiley on 07-10-2025 Eosinophils # (Auto)0.4 10 3/uL0.0-0.7FAshtabula General HospitalImmature Granulocyte # (Auto)0.03 10 3/uL0.00-0.03[facility] Platelet mean volume Auto (Bld) [Entitic vol]Ordered By: James Wiley on 07-10-2025 Platelet mean volume (Bld) [Entitic vol]10.9 fL9.5-13.5FAshtabula General HospitalPlatelets Auto (Bld) [#/Vol]Ordered By: James Wiley on 07-10-2025 Platelets (Bld) [#/Vol]114 10 3/nJEgb661-012EvgkuqkozAdena Regional Medical CenterRBC Auto (Bld) [#/Vol]Ordered By: James Wiley on 71-10-2623OLS (Bld) [#/Vol]4.74 10 6/uL4.20-5.40[facility] Centererum or plasma albumin/globulin mass ratioOrdered By: James Wiley on 50-95-3143Qpannhw/Globulin [Mass ratio]1.2 {ratio}[facility] Centererum or plasma anion gap determination Ordered By: James Wiley on 12-71-3185Nlixz gap [Moles/Vol]14.2 mmol/LFAshtabula General HospitalBasophils Auto (Bld) [#/Vol]Ordered By: Dennys Aguilar on 55-81-7339Qslpitgbz (Bld) [#/Vol]0.2 10 3/uLHigh0.0-0.1FAshtabula General HospitalBasophils/100 WBC Auto (Bld)Ordered By: Dennys Aguilar on 07-07-2025 Basophils/100 WBC (Bld)2.6 %High0.2-2.0[facility] Eosinophils/100 WBC Auto (Bld)Ordered By: Dennys Aguilar on 07-07-2025 Eosinophils/100 WBC (Bld)5.4 %0.9-7.0[facility] Erythrocyte distribution width Auto (RBC) [Ratio]Ordered By: Dennys Aguilar on 00-16-3488Scbvpfjxhvx distribution width (RBC) [Ratio]14.6 %11.0-15.0[facility] Medical CenterGlomerular filtration rate (GFR) estimation in non- AmericanOrdered By: Dennys Aguilar on 73-98-7792ESO/1.73 sq M.predicted among non-blacks MDRD (S/P/Bld) [Vol rate/Area]49 mL/min/{1.73_m2}Low>=60 mL/min/1.73m 2[facility] CenterHematocrit Auto (Bld) [Volume fraction]Ordered By: Dennys Aguilar on 43-87-5173Nuublgpnho (Bld) [Volume fraction] 44.7 %36.0-48.0[facility] CenterHemoglobin [Mass/volume] in BloodOrdered By: Dennys Aguilar on 08-63-0926Kwyapmotvs (Bld) [Mass/Vol]14.4 g/dL 12.0-16.0[facility] CenterLaboratory - Chemistry and Chemistry - challengeOrdered By: Dennys Aguilar on 94-50-7508Qhxudyk [Mass/Vol]9.5 mg/dL 8.5-10.1FAshtabula General HospitalChloride [Moles/Vol]104 mmol/L98-107 [facility] CenterCO2 [Moles/Vol]27.2 mmol/L21.0-32.0[facility] CenterCreatinine [Mass/Vol]1.05 mg/dLHigh0.55-1.02[facility] CenterGFR/1.73 sq M.predicted MDRD (S/P/Bld) [Vol rate/Area]60 mL/min/{1.73_m2}>=60 mL/min/1.73m 2FAshtabula General HospitalGlucose [Mass/Vol]113 mg/aXJsah47-914LmozvrsriAdena Regional Medical CenterNatriuretic peptide B (Bld) [Mass/Vol]418.0 pg/mL<=1800.0[facility] Potassium [Moles/Vol]3.8 mmol/L3.5-5.1FTrinity Health System East Campusodium [Moles/Vol]141 mmol/A830-129GltgvlijmAdena Regional Medical CenterUrea nitrogen [Mass/Vol]17.0 mg/dL7.0-18.0[facility] CenterUrea nitrogen/Creatinine [Mass ratio]16.2 mg/mgAdena Regional Medical Center Laboratory - Hematology and Cell countsOrdered By: Dennys Aguilar on 07-07-2025 Immature granulocytes/100 WBC (Bld)0.4 %0.0-0.5FAshtabula General Hospital Leukocytes [#/volume] corrected for nucleated erythrocytes in Blood by Automated counOrdered By: Dennys Aguilar on 73-60-3220ASY corrected for nucl RBC Auto (Bld) [#/Vol]8.3 10 3/uL4.0-11.0[facility] CenterLymphocytes Auto (Bld) [#/Vol]Ordered By: Dennys Aguilar on 60-87-8474Ptjapcptykj (Bld) [#/Vol]1.7 10 3/uL1.2-3.8[facility] CenterLymphocytes/100 WBC Auto (Bld) Ordered By: Dennys Aguilar on 49-83-8105Mlmnkfxwqmf/100 WBC (Bld)19.8 %Low20.5-60.0 [facility] CenterMCH Auto (RBC) [Entitic mass]Ordered By: Dennys Aguilar on 49-83-5056DXS (RBC) [Entitic mass]29.5 pg26.7-34.0[facility] CenterMCHC Auto (RBC) [Mass/Vol]Ordered By: Dennys Aguilar on 07-07-2025 MCHC (RBC) [Mass/Vol]32.2 g/dL29.9-35.2FAshtabula General HospitalMCV Auto (RBC) [Entitic vol]Ordered By: Dennys Aguilar on 17-22-9349HOD (RBC) [Entitic vol] 91.6 fL81.0-99.0[facility] CenterMonocytes Auto (Bld) [#/Vol] Ordered By: Dennys Aguilar on 84-17-8848Hqbsftygi (Bld) [#/Vol]1.2 10 3/uLHigh 0.3-0.8[facility] CenterMonocytes/100 WBC Auto (Bld)Ordered By: Dennys Aguilar on 58-78-9363Wermcvrzy/100 WBC (Bld)14.9 %High1.7-12.0[facility] CenterNeutrophils Auto (Bld) [#/Vol]Ordered By: Dennys Aguilar on 22-55-2150Nguhrohglyu (Bld) [#/Vol]4.7 10 3/uL1.4-6.5FAshtabula General HospitalNeutrophils/100 WBC Auto (Bld)Ordered By: Dennys Aguilar on 07-07-2025 Neutrophils/100 WBC (Bld)56.9 %43.0-75.0[facility] CenterNo Panel InformationOrdered By: Dennys Aguilar on 23-16-0163Ihglvdaiexi # (Auto)0.5 10 3/uL0.0-0.7FAshtabula General HospitalImmature Granulocyte # (Auto)0.03 10 3/uL0.00-0.03[facility] CenterTroponin I High Sensitivity9.9 pg/mL4.0-51.3FAshtabula General HospitalComment on above:CUT-OFF POINTS HAVE BEEN ESTABLISHED BASED ON THE FOURTHUNIVERSAL DEFINITION OF MYOCARDIAL INFARCTION. THE UPPERREFERENCE LIMIT (URL) OF TROPONIN, DEFINED THE 99THPERCENTILE OF cTnI DISTRIBUTION IN A REFERENCE POPULATION,HAS BEEN CONFIRMED THE DECISION THRESHOLD FOR MIDIAGNOSIS.99TH PERCENTILE = 51.4 PG/MLNOTE: HIGH-SENSITIVITY TROPONIN ASSAY IS NOT INTENDED TO BEUSED IN ISOLATION BUT SHOULD BE INTERPRETED IN CONJUNCTIONWITH OTHER DIAGNOSTIC AND CLINICAL INFORMATION.Platelet mean volume Auto (Bld) [Entitic vol]Ordered By: Dennys Aguilar on 50-29-3730Crqrzamd mean volume (Bld) [Entitic vol]11.4 fL9.5-13.5FAshtabula General HospitalPlatelets Auto (Bld) [#/Vol]Ordered By: Dennys Aguilar on 30-27-9655Owtpqqzrg (Bld) [#/Vol]119 10 3/pTFre735-679CpudnfguuAdena Regional Medical CenterRBC Auto (Bld) [#/Vol]Ordered By: Dennys Aguilar on 39-10-5135BZE (Bld) [#/Vol]4.88 10 6/uL4.20-5.40[facility] Centererum or plasma anion gap determinationOrdered By: Dennys Aguilar on 46-15-3240Ffcdb gap [Moles/Vol]13.6 mmol/LFAshtabula General HospitalActivated partial thromboplastin time (aPTT) in platelet poor plasma by coagulation aOrdered By: Daphne Emanuel on 79-57-0022dSXY Coag (PPP) [Time]27.4 s22.3-36.2FAshtabula General HospitalBasophils Auto (Bld) [#/Vol]Ordered By: Daphne Emanuel on 04-06-2025 Basophils (Bld) [#/Vol]0.2 10 3/uLHigh0.0-0.1FAshtabula General Hospital Basophils/100 WBC Auto (Bld)Ordered By: Daphne Emanuel on 34-78-9730Ronvpgcky/100 WBC (Bld)4.2 %High0.2-2.0[facility] CenterEosinophils/100 WBC Auto (Bld)Ordered By: Daphne Emanuel on 20-80-3838Dwkpyscdycg/100 WBC (Bld)9.2 %High 0.9-7.0[facility] CenterErythrocyte distribution width Auto (RBC) [Ratio]Ordered By: Daphne Emanuel on 21-08-2266Rplwggapfqd distribution width (RBC) [Ratio]14.7 %11.0-15.0[facility] CenterEstimated glomerular filtration rate (GFR) non- AmericanOrdered By: Daphne Emanuel on 45-17-0506CTM/1.73 sq M.predicted among non-blacks MDRD (S/P/Bld) [Vol rate/Area]54 mL/min/{1.73_m2}Low>=60 mL/min/1.73m 2FAshtabula General HospitalGlobulin Calc (S) [Mass/Vol]Ordered By: Daphne Emanuel on 54-29-9770Phbmwigq (S) [Mass/Vol]3.1 g/dLAdena Regional Medical CenterHematocrit Auto (Bld) [Volume fraction]Ordered By: Daphne Emanuel on 28-49-6204Oibvehdbmg (Bld) [Volume fraction]45.0 %36.0-48.0[facility] CenterHemoglobin [Mass/volume] in BloodOrdered By: Daphne Emanuel on 07-66-7034Ftdohxsrpt (Bld) [Mass/Vol]14.7 g/dL12.0-16.0[facility] CenterINR in Platelet poor plasma by Coagulation assayOrdered By: Daphne Emanuel on 76-57-5900SEG Coag (PPP) [Relative time]1.32 {INR}[facility] CenterComment on above:DESIRED INR:2.0-3.0 CONDITIONS NOT LISTED BELOW2.5-3.5 FOR PROSTHETIC HEART VALVE REPLACEMENT2.5-3.5 RECURRENT THROMBOSISLaboratory - Chemistry and Chemistry - challengeOrdered By: Daphne Emanuel on 01-51-1387Osfjaqlbb Ql (U)Negative NEGATIVEAdena Regional Medical CenterGlucose (U) [Mass/Vol]NegativeNEGATIVE [facility] CenterKetones Ql (U)NegativeNEGATIVEAdena Regional Medical CenterpH (U)7.0 [pH]5.0-9.0[facility] Specific gravity (U) [Rel density]1.0101.005-1.025[facility] CenterUrobilinogen Qn (U)0.2 {Myranda'U}/dL0.2-1.0[facility] CenterAlbumin [Mass/Vol]3.7 g/dL3.4-5.0[facility] CenterALP [Catalytic activity/Vol]64 U/C30-812KyrbdobcoAdena Regional Medical CenterALT [Catalytic activity/Vol]16 U/N69-70TdgmrlmpuAdena Regional Medical CenterAST [Catalytic activity/Vol]14 U/TGqd34-84SgwjdrbdfAdena Regional Medical CenterBilirubin [Mass/Vol]0.4 mg/dL0.2-1.0[facility] CenterCalcium [Mass/Vol]9.9 mg/dL8.5-10.1FAshtabula General HospitalChloride [Moles/Vol]106 mmol/L 98-107[facility] CenterCO2 [Moles/Vol]26.9 mmol/L21.0-32.0 [facility] CenterCreatinine [Mass/Vol]0.97 mg/dL0.55-1.02 [facility] CenterGFR/1.73 sq M.predicted MDRD (S/P/Bld) [Vol rate/Area]mL/min/{1.73_m2}>=60 mL/min/1.73m 2FAshtabula General Hospital Glucose [Mass/Vol]102 mg/qT22-420RpsskeezgAdena Regional Medical CenterNatriuretic peptide B (Bld) [Mass/Vol]213.0 pg/mL<=1800.0[facility] Potassium [Moles/Vol]3.8 mmol/L3.5-5.1FAshtabula General HospitalProtein [Mass/Vol]6.8 g/dL6.4-8.2FTrinity Health System East Campusodium [Moles/Vol]144 mmol/Z778-644MnlffvhjnAdena Regional Medical CenterUrea nitrogen [Mass/Vol]19.0 mg/dL High7.0-18.0[facility] CenterUrea nitrogen/Creatinine [Mass ratio]19.6 mg/mgAdena Regional Medical CenterLaboratory - Hematology and Cell countsOrdered By: Daphne Emanuel on 73-25-0865Pessnoux granulocytes/100 WBC (Bld)0.5 %0.0-0.5FAshtabula General HospitalLaboratory - Specimen informationOrdered By: Daphne Emanuel on 55-46-9654Wnrjjsirgn (U)CLEARCLEARFAshtabula General HospitalColor (U)LT. YELLOWYELLOWAdena Regional Medical CenterLaboratory - UrinalysisOrdered By: Daphne Emanuel on 95-62-8932Dlkwckirm esterase Test strip Ql (U)NegativeNEGLakeHealth TriPoint Medical CenterMucus Ql (Urine sed)TRACEAbnormalNONE SEENAdena Regional Medical CenterNitrite Ql (U)NegativeNEGLakeHealth TriPoint Medical CenterProtein Ql (U)Negative NEG/TRACEAdena Regional Medical CenterLeukocytes [#/volume] corrected for nucleated erythrocytes in Blood by Automated counOrdered By: Daphne Emanuel on 85-75-5329IAR corrected for nucl RBC Auto (Bld) [#/Vol]5.8 10 3/uL4.0-11.0 [facility] CenterLymphocytes Auto (Bld) [#/Vol]Ordered By: Daphne Emanuel on 66-98-6865Oegpbnryxie (Bld) [#/Vol]2.3 10 3/uL1.2-3.8[facility] CenterLymphocytes/100 WBC Auto (Bld)Ordered By: Daphne Emanuel on 04-06-2025 Lymphocytes/100 WBC (Bld)39.5 %20.5-60.0[facility] CenterMCH Auto (RBC) [Entitic mass]Ordered By: Daphne Emanuel on 27-09-0424OCI (RBC) [Entitic mass]30.0 pg26.7-34.0[facility] CenterMCHC Auto (RBC) [Mass/Vol] Ordered By: Daphne Emanuel on 89-75-0154ADYV (RBC) [Mass/Vol]32.7 g/dL29.9-35.2 [facility] CenterMCV Auto (RBC) [Entitic vol]Ordered By: Daphne Emanuel on 37-33-2010YBQ (RBC) [Entitic vol]91.8 fL81.0-99.0[facility] CenterMonocytes Auto (Bld) [#/Vol]Ordered By: Daphne Emanuel on 04-06-2025 Monocytes (Bld) [#/Vol]0.8 10 3/uL0.3-0.8[facility] Monocytes/100 WBC Auto (Bld)Ordered By: Daphne Emanuel on 63-18-3409Uuhntpwml/100 WBC (Bld)13.6 %High1.7-12.0[facility] CenterNeutrophils Auto (Bld) [#/Vol]Ordered By: Daphne Emanuel on 04-98-8251Imicdsnbalu (Bld) [#/Vol]1.9 10 3/uL 1.4-6.5FAshtabula General HospitalNeutrophils/100 WBC Auto (Bld)Ordered By: Daphne Emanuel on 18-88-4826Nceugpckpqz/100 WBC (Bld)33.0 %Low43.0-75.0[facility] CenterNo Panel InformationOrdered By: Daphne Emanuel on 04-06-2025 Urine BacteriaTRACE #/HPFAbnormalNONE SEENAdena Regional Medical CenterUrine Culture ReflexedNOAdena Regional Medical CenterUrine Occult BloodNegative NEGATIVEAdena Regional Medical CenterUrine Other CastsNONE SEEN #/LPFNONE [facility] HospitalUrine Other CrystalsNone Seen #/HPFNone [facility] HospitalUrine RBC0-2 #/HPF0-2FAshtabula General HospitalUrine Squamous Epithelial CellsRARE #/LPFNONE/RAREAdena Regional Medical CenterUrine WBCNONE SEEN #/HPFNONE [facility] HospitalEosinophils # (Auto)0.5 10 3/uL0.0-0.7FAshtabula General HospitalImmature Granulocyte # (Auto)0.03 10 3/uL0.00-0.03[facility] CenterTroponin I High Sensitivity8.7 pg/mL4.0-51.3FAshtabula General HospitalComment on above:CUT-OFF POINTS HAVE BEEN ESTABLISHED BASED ON THE FOURTHUNIVERSAL DEFINITION OF MYOCARDIAL INFARCTION. THE UPPERREFERENCE LIMIT (URL) OF TROPONIN, DEFINED THE 99THPERCENTILE OF cTnI DISTRIBUTION IN A REFERENCE POPULATION,HAS BEEN CONFIRMED THE DECISION THRESHOLD FOR MIDIAGNOSIS.99TH PERCENTILE = 51.4 PG/MLNOTE: HIGH-SENSITIVITY TROPONIN ASSAY IS NOT INTENDED TO BEUSED IN ISOLATION BUT SHOULD BE INTERPRETED IN CONJUNCTIONWITH OTHER DIAGNOSTIC AND CLINICAL INFORMATION.Platelet mean volume Auto (Bld) [Entitic vol]Ordered By: Daphne Emanuel on 86-07-1442Mstmbosx mean volume (Bld) [Entitic vol]10.7 fL9.5-13.5FAshtabula General HospitalPlatelets Auto (Bld) [#/Vol]Ordered By: Daphne Emanuel on 05-18-8430Vswfjmadt (Bld) [#/Vol]135 10 3/fQRtv734-090MobytgpkhAdena Regional Medical CenterProthrombin time (PT)Ordered By: Daphne Emanuel on 17-22-2393SD Coag (PPP) [Time]13.6 sHigh9.0-11.6FAshtabula General HospitalRBC Auto (Bld) [#/Vol]Ordered By: Daphne Emanuel on 04-06-2025 RBC (Bld) [#/Vol]4.90 10 6/uL4.20-5.40[facility] Centererum or plasma albumin/globulin mass ratioOrdered By: Daphne Emanuel on 04-06-2025 Albumin/Globulin [Mass ratio]1.2 {ratio}[facility] Centererum or plasma anion gap determinationOrdered By: Daphne Emanuel on 16-00-8763Sspgq gap [Moles/Vol]14.9 mmol/LFAshtabula General HospitalOffice Visiton 02-12-2025 Follow-up [id number] Zoraida Barrios 1935 F Date Provider Department Center 02/12/2025 MISSY OCASIO CARD [facility] Family History Problem Relation Age of Onset Hypertension Mother Family Status - Relation Status Age at Mother Father Level of Service:13017 [place] OFFICE/OUTPATIENT ESTABLISHED MOD [facility]Bas[facility] Auto (Bld) [#/Vol]on 12-24-2024 Basophils (Bld) [#/Vol]Automated basophil countHigh0.0-0.1FAshtabula General HospitalBasophils/100 WBC Auto (Bld)on 36-88-5932Ysghnaqqw/100 WBC (Bld) Automated basophil %High0.2-2.0[facility] CenterEosinophils/100 WBC Auto (Bld)on 56-91-4254Hgfsckdzapi/100 WBC (Bld)Automated eosinophil % 0.9-7.0[facility] CenterErythrocyte distribution width Auto (RBC) [Ratio]on 38-82-6304Uffmticomcv distribution width (RBC) [Ratio] Erythrocyte distribution width [Ratio] by Automated count11.0-15.0[facility] CenterEstimated glomerular filtration rate (GFR) non- Americanon 06-02-5462QCQ/1.73 sq M.predicted among non-blacks MDRD (S/P/Bld) [Vol rate/Area]Estimated glomerular filtration rate (GFR) non- Low>=60 mL/min/1.73m 2FAshtabula General HospitalGlobulin Calc (S) [Mass/Vol]on 71-86-8308Aniwdnwz (S) [Mass/Vol]Serum globulin measurement by calculation (mass/volume)[facility] CenterHematocrit Auto (Bld) [Volume fraction]on 56-22-7459Ldxgdmnmqx (Bld) [Volume fraction]Hematocrit [Volume Fraction] of Blood by Automated count36.0-48.0[facility] CenterHemoglobin [Mass/volume] in Bloodon 27-56-4983Weinreqsrw (Bld) [Mass/Vol] Hemoglobin [Mass/volume] in Blood12.0-16.0[facility] Laboratory - Chemistry and Chemistry - challengeon 91-07-8679Uzeigeo [Mass/Vol] 3.4 g/dL3.4-5.0[facility] CenterALP [Catalytic activity/Vol]55 U/Y91-559IvirpjxdzAdena Regional Medical CenterALT [Catalytic activity/Vol]14 U/L 14-59[facility] CenterAST [Catalytic activity/Vol]15 U/L15-37 [facility] CenterBilirubin [Mass/Vol]0.3 mg/dL0.2-1.0[facility] CenterCalcium [Mass/Vol]9.8 mg/dL8.5-10.1FAshtabula General HospitalChloride [Moles/Vol]106 mmol/S01-271KbkllpaljAdena Regional Medical CenterCO2 [Moles/Vol]29.4 mmol/L21.0-32.0[facility] Creatinine [Mass/Vol]1.24 mg/dLHigh0.55-1.02[facility] GFR/1.73 sq M.predicted MDRD (S/P/Bld) [Vol rate/Area]49 mL/min/{1.73_m2}Low>=60 mL/min/1.73m 2FAshtabula General HospitalGlucose [Mass/Vol]158 mg/dLHigh 74-106[facility] CenterPotassium [Moles/Vol]3.5 mmol/L3.5-5.1 [facility] CenterProtein [Mass/Vol]6.3 g/dLLow6.4-8.2FTrinity Health System East Campusodium [Moles/Vol]143 mmol/F634-759WfsxmrzmbAdena Regional Medical CenterUrea nitrogen [Mass/Vol]25.0 mg/dLHigh7.0-18.0[facility] CenterUrea nitrogen/Creatinine [Mass ratio]20.2 mg/mgAdena Regional Medical CenterLaboratory - Hematology and Cell countson 36-88-8043Hneowrwb granulocytes/100 WBC (Bld)0.4 %0.0-0.5FAshtabula General Hospital Leukocytes [#/volume] corrected for nucleated erythrocytes in Blood by Automated counon 09-76-5144OCM corrected for nucl RBC Auto (Bld) [#/Vol]Leukocytes [#/volume] corrected for nucleated erythrocytes in Blood by Automated coun 4.0-11.0[facility] CenterLymphocytes Auto (Bld) [#/Vol]on 59-43-7322Nasdcnxmaxg (Bld) [#/Vol]Lymphocytes [#/volume] in Blood by Automated count1.2-3.8[facility] CenterLymphocytes/100 WBC Auto (Bld)on 53-83-5078Lqbuigyxztk/100 WBC (Bld)Lymphocytes/100 leukocytes in Blood by Automated count20.5-60.0[facility] CenterH Auto (RBC) [Entitic mass]on 88-79-5634VMS (RBC) [Entitic mass]MCH [Entitic mass] by Automated count 26.7-34.0[facility] CenterMCHC Auto (RBC) [Mass/Vol]on 54-84-8844WLKS (RBC) [Mass/Vol]MCHC [Mass/volume] by Automated count29.9-35.2 [facility] CenterMCV Auto (RBC) [Entitic vol]on 91-71-5269WZQ (RBC) [Entitic vol]MCV [Entitic volume] by Automated count81.0-99.0[facility] CenterMonocytes Auto (Bld) [#/Vol]on 36-59-6750Yczjmjnig (Bld) [#/Vol]Automated blood monocyte count0.3-0.8[facility] Monocytes/100 WBC Auto (Bld)on 37-39-2070Udclayzsi/100 WBC (Bld)Automated monocyte %High1.7-12.0[facility] CenterNeutrophils Auto (Bld) [#/Vol]on 16-63-7011Vipghjrtdbm (Bld) [#/Vol]Neutrophils [#/volume] in Blood by Automated count1.4-6.5FAshtabula General HospitalNeutrophils/100 WBC Auto (Bld)on 08-67-4554Nvfjecodnkj/100 WBC (Bld)Automated neutrophil %43.0-75.0 [facility] CenterNo Panel Informationon 20-45-5169Hglhslxizfb # (Auto)0.3 10 3/uL0.0-0.7[facility] CenterImmature Granulocyte # (Auto)0.02 10 3/uL0.00-0.03[facility] CenterTroponin I High Sensitivity8.8 pg/mL4.0-51.3FAshtabula General HospitalComment on above: CUT-OFF POINTS HAVE BEEN ESTABLISHED BASED ON THE FOURTHUNIVERSAL DEFINITION OF MYOCARDIAL INFARCTION. THE UPPERREFERENCE LIMIT (URL) OF TROPONIN, DEFINED THE 99THPERCENTILE OF cTnI DISTRIBUTION IN A REFERENCE POPULATION,HAS BEEN CONFIRMED THE DECISION THRESHOLD FOR MIDIAGNOSIS.99TH PERCENTILE = 51.4 PG/MLNOTE: HIGH-SENSITIVITY TROPONIN ASSAY IS NOT INTENDED TO BEUSED IN ISOLATION BUT SHOULD BE INTERPRETED IN CONJUNCTIONWITH OTHER DIAGNOSTIC AND CLINICAL INFORMATION.Platelet mean volume Auto (Bld) [Entitic vol]on 12-24-2024 Platelet mean volume (Bld) [Entitic vol]Platelet mean volume [Entitic volume] in Blood by Automated count9.5-13.5FAshtabula General HospitalPlatelets Auto (Bld) [#/Vol]on 83-42-0954Fviplpnyl (Bld) [#/Vol]Platelets [#/volume] in Blood by Automated mwsrjPwd470-587LtpzcdqbwAdena Regional Medical CenterRBC Auto (Bld) [#/Vol]on 06-70-7898XAE (Bld) [#/Vol]Erythrocytes [#/volume] in Blood by Automated count4.20-5.40[facility] Centererum or plasma albumin/globulin mass ratioon 64-26-8646Xcyhwth/Globulin [Mass ratio]Serum or plasma albumin/globulin mass ratioAdams County Regional Medical Centererum or plasma anion gap determinationon 66-97-8757Wufpy gap [Moles/Vol]Serum or plasma anion gap determinationAdena Regional Medical CenterOffice Visiton 17-47-4647Xjvrbz-up [id number] Zoraida Barrios 1935 F Date Provider Department Center 11/28/2024 EDVIN PALM CRISTOBAL [facility] Family History Problem Relation Age of Onset Hypertension Mother Family Status - Relation Status Age at Mother Level of Service:[address] [place] OFFICE/OUTPATIENT ESTABLISHED LOW [facility]Office [facility] 95-89-4256Xltwhh-up visit [id number] Zoraida Barrios Chris 1935 F Date Provider Department Center 06/28/2024 AALIYAH HENDERSON [facility] Family History Problem Relation Age of Onset Hypertension Mother Family Status - Relation Status Age at Mother Level of Service:96441 [place] OFFICE/OUTPATIENT ESTABLISHED LOW MDM 20 [facility] WestBasophils Auto (Bld) [#/Vol]on 05-15-2024 Basophils (Bld) [#/Vol]0.2 10 3/uLHigh0.0-0.1FAshtabula General Hospital Basophils/100 WBC Auto (Bld)on 71-76-7288Pnnsaelyv/100 WBC (Bld)2.2 %High0.2-2.0 [facility] CenterEosinophils/100 WBC Auto (Bld)on 05-15-2024 Eosinophils/100 WBC (Bld)5.0 %0.9-7.0[facility] Erythrocyte distribution width Auto (RBC) [Ratio]on 38-02-9450Qktccwiztqr distribution width (RBC) [Ratio]14.7 %11.0-15.0[facility] Estimated glomerular filtration rate (GFR) non- Americanon 05-15-2024 GFR/1.73 sq M.predicted among non-blacks MDRD (S/P/Bld) [Vol rate/Area]45 mL/min/{1.73_m2}Low>=60[facility] CenterHematocrit Auto (Bld) [Volume fraction]on 80-19-8198Kqylipeblp (Bld) [Volume fraction]40.2 %36.0-48.0 [facility] CenterHemoglobin [Mass/volume] in Bloodon 05-15-2024 Hemoglobin (Bld) [Mass/Vol]13.0 g/dL12.0-16.0[facility] Laboratory - Chemistry and Chemistry - challengeon 24-80-7104Zgyyghy [Mass/Vol] 9.5 mg/dL8.5-10.1FAshtabula General HospitalChloride [Moles/Vol]105 mmol/L 98-107[facility] CenterCO2 [Moles/Vol]26.4 mmol/L21.0-32.0 [facility] CenterCobalamin (Vitamin B12) [Mass/Vol]618.0 pg/mL 193.0-986.0[facility] CenterCreatinine [Mass/Vol]1.15 mg/dLHigh 0.55-1.02[facility] CenterFree T4 [Mass/Vol]1.06 ng/dL0.76-1.46 [facility] CenterGFR/1.73 sq M.predicted MDRD (S/P/Bld) [Vol rate/Area]54 mL/min/{1.73_m2}Low>=60[facility] CenterGlucose [Mass/Vol]104 mg/wI38-511IpndhuydgAdena Regional Medical CenterPotassium [Moles/Vol] 4.2 mmol/L3.5-5.1FTrinity Health System East Campusodium [Moles/Vol]137 mmol/L 136-145[facility] CenterTSH Qn4.417 m[IU]/LHigh0.358-3.740 [facility] CenterUrea nitrogen [Mass/Vol]20.0 mg/dLHigh7.0-18.0 [facility] CenterUrea nitrogen/Creatinine [Mass ratio]17.4 mg/mg [facility] CenterLaboratory - Hematology and Cell countson 80-06-0393Wuttbmjj granulocytes/100 WBC (Bld)1.3 %High0.0-0.5FAshtabula General HospitalLeukocytes [#/volume] corrected for nucleated erythrocytes in Blood by Automated counon 75-56-8180JEZ corrected for nucl RBC Auto (Bld) [#/Vol]10.4 10 3/uL4.0-11.0[facility] CenterLymphocytes Auto (Bld) [#/Vol]on 66-37-6226Nmlfzjechav (Bld) [#/Vol]2.1 10 3/uL1.2-3.8[facility] CenterLymphocytes/100 WBC Auto (Bld)on 05-15-2024 Lymphocytes/100 WBC (Bld)20.1 %Low20.5-60.0[facility] Auto (RBC) [Entitic mass]on 92-57-7568IKL (RBC) [Entitic mass]30.2 pg26.7-34.0 [facility] CenterMCHC Auto (RBC) [Mass/Vol]on 64-91-2179WDCT (RBC) [Mass/Vol]32.3 g/dL29.9-35.2FAshtabula General HospitalMCV Auto (RBC) [Entitic vol]on 57-09-4540MNK (RBC) [Entitic vol]93.3 fL81.0-99.0[facility] CenterMonocytes Auto (Bld) [#/Vol]on 04-53-8385Cxvchbgxl (Bld) [#/Vol]1.4 10 3/uLHigh0.3-0.8[facility] CenterMonocytes/100 WBC Auto (Bld)on 77-80-7388Lgmpirsfp/100 WBC (Bld)13.0 %High1.7-12.0[facility] CenterNeutrophils Auto (Bld) [#/Vol]on 96-60-5647Ooqhdkkstgn (Bld) [#/Vol]6.1 10 3/uL1.4-6.5FAshtabula General HospitalNeutrophils/100 WBC Auto (Bld)on 42-58-2846Kqtffvuaewj/100 WBC (Bld)58.4 %43.0-75.0[facility] CenterNo Panel Informationon 58-59-883187168270-Zqwlzyb Vitamin D Total32.6 ng/mLAdena Regional Medical CenterComment on above:<20 ng/mL Vit D kxhbtgdol09-<30 ng/mL Vit D lyzfrtcaagml80-394 ng/mL Vit D sufficient>100 ng/mL Potential ToxicityEosinophils # (Auto)0.5 10 3/uL0.0-0.7FAshtabula General HospitalFolate12.10 ng/mL8.60-58.90[facility] Immature Granulocyte # (Auto)0.13 10 3/uLHigh0.00-0.03[facility] CenterPlatelet mean volume Auto (Bld) [Entitic vol]on 07-46-0109Mfrlpvei mean volume (Bld) [Entitic vol]10.7 fL9.5-13.5FAshtabula General Hospital Platelets Auto (Bld) [#/Vol]on 58-31-5088Yrrmmdtlk (Bld) [#/Vol]132 10 3/uLLow 150-450[facility] CenterRBC Auto (Bld) [#/Vol]on 92-02-4030SPM (Bld) [#/Vol]4.31 10 6/uL4.20-5.40[facility] Centererum or plasma anion gap determinationon 90-13-5049Zlyeo gap [Moles/Vol]9.8 mmol/L [facility] CenterBasophils Auto (Bld) [#/Vol]on 05-10-2024 Basophils (Bld) [#/Vol]0.2 10 3/uLHigh0.0-0.1FAshtabula General Hospital Basophils/100 WBC Auto (Bld)on 34-27-1851Deoprccui/100 WBC (Bld)3.1 %High0.2-2.0 [facility] CenterEosinophils/100 WBC Auto (Bld)on 05-10-2024 Eosinophils/100 WBC (Bld)6.3 %0.9-7.0[facility] Erythrocyte distribution width Auto (RBC) [Ratio]on 70-13-5776Zaujqkpbhzm distribution width (RBC) [Ratio]14.8 %11.0-15.0[facility] Estimated glomerular filtration rate (GFR) non- Americanon 05-10-2024 GFR/1.73 sq M.predicted among non-blacks MDRD (S/P/Bld) [Vol rate/Area]39 mL/min/{1.73_m2}Low>=60[facility] CenterFibrin D-dimer [Presence] in Platelet poor plasma by Latex agglutinationon 38-38-0161Hplehl D- dimer LA Ql (PPP)0.29 mg/L FEU<=0.59[facility] CenterComment on above:Increases in D-Dimer concentration observed withthromboembolic events can be variable due to localization,size, and age of the thrombus. Therefore, a thromboembolicevent cannot be diagnosed with certainty on the basis of thereference range. D-Dimers may also be elevated for a varietyof disorders inc luding advanced age, , coronarydisease, cancer, liver disease, infection, inflammation,hematoma, DIC, trauma, post-surgery, diabetes, thrombolyticor anticoagulant therapy, stress, and generalizedhospitalization. Globulin Calc (S) [Mass/Vol]on 83-15-7743Tmdvytvs (S) [Mass/Vol]3.1 g/dL [facility] CenterHematocrit Auto (Bld) [Volume fraction]on 15-23-2183Iejxcbibgz (Bld) [Volume fraction]39.6 %36.0-48.0[facility] CenterHemoglobin [Mass/volume] in Bloodon 79-05-5658Cvrpcviboq (Bld) [Mass/Vol]12.9 g/dL12.0-16.0[facility] CenterINR in Platelet poor plasma by Coagulation assayon 50-73-6120TXM Coag (PPP) [Relative time]1.34 {INR}[facility] CenterComment on above:DESIRED INR:2.0-3.0 CONDITIONS NOT LISTED BELOW2.5-3.5 FOR PROSTHETIC HEART VALVE REPLACEMENT2.5-3.5 RECURRENT THROMBOSISLaboratory - Chemistry and Chemistry - challengeon 93-52-4719Xckuncqah Ql (U)NegativeNEGATIVEAdena Regional Medical Center Glucose (U) [Mass/Vol]NegativeNEGATIVEAdena Regional Medical CenterKetones Ql (U)NegativeNEGATIVEAdena Regional Medical CenterpH (U)6.0 [pH]5.0-9.0 [facility] Centerpecific gravity (U) [Rel density]1.015 1.005-1.025[facility] CenterUrobilinogen Qn (U)0.2 {Myranda'U}/dL0.2-1.0[facility] CenterAlbumin [Mass/Vol]3.5 g/dL 3.4-5.0[facility] CenterALP [Catalytic activity/Vol]54 U/L46-116 [facility] CenterALT [Catalytic activity/Vol]17 U/L14-59 [facility] CenterAST [Catalytic activity/Vol]14 U/CWyu84-54 [facility] CenterBilirubin [Mass/Vol]0.4 mg/dL0.2-1.0[facility] CenterCalcium [Mass/Vol]9.5 mg/dL8.5-10.1FAshtabula General HospitalChloride [Moles/Vol]104 mmol/Y97-695VycsbwjnaAdena Regional Medical CenterCO2 [Moles/Vol]26.0 mmol/L21.0-32.0[facility] Creatinine [Mass/Vol]1.28 mg/dLHigh0.55-1.02[facility] GFR/1.73 sq M.predicted MDRD (S/P/Bld) [Vol rate/Area]48 mL/min/{1.73_m2}Low>=60 [facility] CenterGlucose [Mass/Vol]143 mg/bZGqwb19-401MwiisqdutAdena Regional Medical CenterNatriuretic peptide B (Bld) [Mass/Vol]178.0 pg/mL<=1800.0 [facility] CenterPotassium [Moles/Vol]3.9 mmol/L3.5-5.1FAshtabula General HospitalProtein [Mass/Vol]6.6 g/dL6.4-8.2FTrinity Health System East Campusodium [Moles/Vol]136 mmol/L013-079HwmhrtspcAdena Regional Medical CenterUrea nitrogen [Mass/Vol]21.0 mg/dLHigh7.0-18.0[facility] CenterUrea nitrogen/Creatinine [Mass ratio]16.4 mg/mgAdena Regional Medical CenterLaboratory - Hematology and Cell countson 13-15-5312Ttevrbnl granulocytes/100 WBC (Bld)0.3 %0.0-0.5FAshtabula General Hospital Laboratory - Specimen informationon 76-98-4985Lgpyzndmvm (U)CLEARCLEARFAshtabula General HospitalColor (U)LT. YELLOWYELLOWAdena Regional Medical CenterLaboratory - Urinalysison 64-76-8621Snbyxidrg esterase Test strip Ql (U) SMALLAbnormalNEGATIVEAdena Regional Medical CenterMucus Ql (Urine sed)NONE SEENNONE SEENAdena Regional Medical CenterNitrite Ql (U)NegativeNEGATIVE [facility] CenterProtein Ql (U)NegativeNEG/TRACEAdena Regional Medical CenterLeukocytes [#/volume] corrected for nucleated erythrocytes in Blood by Automated counon 22-62-9054FGS corrected for nucl RBC Auto (Bld) [#/Vol]5.9 10 3/uL4.0-11.0[facility] Lymphocytes Auto (Bld) [#/Vol]on 00-75-6749Pbhlskhiaqe (Bld) [#/Vol]1.8 10 3/uL 1.2-3.8[facility] CenterLymphocytes/100 WBC Auto (Bld)on 06-92-4876Zbnunydtvsn/100 WBC (Bld)31.0 %20.5-60.0[facility] CenterH Auto (RBC) [Entitic mass]on 06-81-0566ZUX (RBC) [Entitic mass]30.4 pg 26.7-34.0[facility] CenterMCHC Auto (RBC) [Mass/Vol]on 06-01-6945QGOW (RBC) [Mass/Vol]32.6 g/dL29.9-35.2FAshtabula General HospitalMCV Auto (RBC) [Entitic vol]on 09-41-9399WTX (RBC) [Entitic vol]93.2 fL 81.0-99.0[facility] CenterMonocytes Auto (Bld) [#/Vol]on 91-97-4960Zqsqtkpdn (Bld) [#/Vol]0.7 10 3/uL0.3-0.8[facility] CenterMonocytes/100 WBC Auto (Bld)on 89-64-8228Xvwwpjuug/100 WBC (Bld)12.4 %High 1.7-12.0[facility] CenterNeutrophils Auto (Bld) [#/Vol]on 49-39-2356Vxzhkcjczbg (Bld) [#/Vol]2.8 10 3/uL1.4-6.5FAshtabula General HospitalNeutrophils/100 WBC Auto (Bld)on 73-21-2690Uscjjpmmyrn/100 WBC (Bld)46.9 % 43.0-75.0[facility] CenterNo Panel Informationon 72-53-7956Rsypu BacteriaTRACE #/HPFAbnormalNONE [facility] HospitalUrine Occult BloodTRACE-INEGATIVEAdena Regional Medical CenterUrine Other Casts NONE SEEN #/LPFNONE [facility] HospitalUrine Other Crystals None Seen #/HPFNone [facility] HospitalUrine RBC5-10 #/HPF Abnormal0-2FAshtabula General HospitalUrine Squamous Epithelial Cells MODERATE #/LPFAbnormalNONE/RAREAdena Regional Medical CenterUrine WBC0-2 #/HPFAbnormalNONE [facility] HospitalEosinophils # (Auto)0.4 10 3/uL0.0-0.7FAshtabula General HospitalImmature Granulocyte # (Auto)0.02 10 3/uL0.00-0.03[facility] CenterTroponin I High Sensitivity5.5 pg/mL4.0-51.3FAshtabula General HospitalComment on above:CUT-OFF POINTS HAVE BEEN ESTABLISHED BASED ON THE FOURTHUNIVERSAL DEFINITION OF MYOCARDIAL INFARCTION. THE UPPERREFERENCE LIMIT (URL) OF TROPONIN, DEFINED THE 99THPERCENTILE OF cTnI DISTRIBUTION IN A REFERENCE POPULATION,HAS BEEN CONFIRMED THE DECISION THRESHOLD FOR MIDIAGNOSIS.99TH PERCENTILE = 51.4 PG/MLNOTE: HIGH-SENSITIVITY TROPONIN ASSAY IS NOT INTENDED TO BEUSED IN ISOLATION BUT SHOULD BE INTERPRETED IN CONJUNCTIONWITH OTHER DIAGNOSTIC AND CLINICAL INFORMATION.Platelet mean volume Auto (Bld) [Entitic vol]on 32-49-1106Bgebxpvx mean volume (Bld) [Entitic vol]10.9 fL9.5-13.5FAshtabula General Hospital Platelets Auto (Bld) [#/Vol]on 84-54-1478Krwrvuwsm (Bld) [#/Vol]144 10 3/uLLow 150-450[facility] CenterProthrombin time (PT)on 01-74-2873EA Coag (PPP) [Time]13.8 sHigh9.0-11.6FAshtabula General HospitalRBC Auto (Bld) [#/Vol]on 13-16-4134YJU (Bld) [#/Vol]4.25 10 6/uL4.20-5.40[facility] Centererum or plasma albumin/globulin mass ratioon 05-10-2024 Albumin/Globulin [Mass ratio]1.1 {ratio}[facility] Centererum or plasma anion gap determinationon 13-84-3876Aankq gap [Moles/Vol]9.9 mmol/L [facility] CenterOffice Visiton 29-14-5915Loadge-up visit [id number] Zoraida Barrios 1935 F Date Provider Department Center 05/01/2024 AALIYAH HENDERSON CARD [facility] Family History Problem Relation Age of Onset Hypertension Mother Family Status - Relation Status Age at Mother Level of Service:[address]644 [place] OFFICE/OUTPATIENT ESTABLISHED LOW [facility]DM 20 [facility]Bas[facility] WBC Manual cnt (Bld)on 41-14-7846Behekzzac/100 WBC (Bld)0.0 %Low0.2-2.0[facility] CenterEosinophils/100 WBC Manual cnt (Bld)on 56-37-7480Grwjujuasta/100 WBC (Bld) 4.0 %0.9-7.0[facility] CenterErythrocyte distribution width Auto (RBC) [Ratio]on 59-62-7900Trgvsphgnya distribution width (RBC) [Ratio]14.7 % 11.0-15.0[facility] CenterEstimated glomerular filtration rate (GFR) non- Americanon 67-25-8461MST/1.73 sq M.predicted among non-blacks MDRD (S/P/Bld) [Vol rate/Area]42 mL/min/{1.73_m2}Low>=60[facility] CenterGlobulin Calc (S) [Mass/Vol]on 57-93-2753Jiueufxx (S) [Mass/Vol] 3.4 g/dLAdena Regional Medical CenterHematocrit Auto (Bld) [Volume fraction] on 49-91-8776Cbvqbuclfl (Bld) [Volume fraction]43.1 %36.0-48.0[facility] CenterHemoglobin [Mass/volume] in Bloodon 28-73-5457Wbfracccqp (Bld) [Mass/Vol]13.8 g/dL12.0-16.0[facility] CenterINR in Platelet poor plasma by Coagulation assayon 50-62-3245XRI Coag (PPP) [Relative time]1.31 {INR}[facility] CenterComment on above:DESIRED INR:2.0-3.0 CONDITIONS NOT LISTED BELOW2.5-3.5 FOR PROSTHETIC HEART VALVE REPLACEMENT2.5-3.5 RECURRENT THROMBOSISLaboratory - Chemistry and Chemistry - challengeon 26-59-0609Wgmdrzt [Mass/Vol]4.0 g/dL3.4-5.0[facility] CenterALP [Catalytic activity/Vol]63 U/W72-033GwypvnkczAdena Regional Medical CenterALT [Catalytic activity/Vol]18 U/R07-45ExjxvcbvlAdena Regional Medical CenterAST [Catalytic activity/Vol]14 U/LXvv81-88JoorajktgAdena Regional Medical CenterBilirubin [Mass/Vol]0.7 mg/dL0.2-1.0[facility] CenterCalcium [Mass/Vol]9.6 mg/dL8.5-10.1FAshtabula General HospitalChloride [Moles/Vol]104 mmol/L 98-107[facility] CenterCO2 [Moles/Vol]29.2 mmol/L21.0-32.0 [facility] CenterCreatinine [Mass/Vol]1.21 mg/dLHigh0.55-1.02 [facility] CenterGFR/1.73 sq M.predicted MDRD (S/P/Bld) [Vol rate/Area]51 mL/min/{1.73_m2}Low>=60[facility] CenterGlucose [Mass/Vol]136 mg/rBNhuw13-141IojfjfqxbAdena Regional Medical CenterNatriuretic peptide B (Bld) [Mass/Vol]201.0 pg/mL<=1800.0[facility] Potassium [Moles/Vol]3.9 mmol/L3.5-5.1FAshtabula General HospitalProtein [Mass/Vol]7.4 g/dL6.4-8.2FTrinity Health System East Campusodium [Moles/Vol]139 mmol/A364-409CzpxmfnosAdena Regional Medical CenterUrea nitrogen [Mass/Vol]27.0 mg/dL High7.0-18.0[facility] CenterUrea nitrogen/Creatinine [Mass ratio]22.3 mg/mgAdena Regional Medical CenterLaboratory - Hematology and Cell countson 08-92-3773Azrx form neutrophils/100 WBC (Bld)4.0 %0-5FAshtabula General HospitalLymphocytes/100 WBC (Bld)15.0 %Low20.5-60.0[facility] CenterMonocytes/100 WBC (Bld)3.0 %1.7-12.0[facility] CenterLeukocytes [#/volume] corrected for nucleated erythrocytes in Blood by Automated counon 29-10-9325CLB corrected for nucl RBC Auto (Bld) [#/Vol]13.3 10 3/uLHigh4.0-11.0[facility] CenterH Auto (RBC) [Entitic mass]on 08-96-1053DXF (RBC) [Entitic mass]30.1 pg26.7-34.0[facility] CenterHC Auto (RBC) [Mass/Vol]on 97-36-2355UHPD (RBC) [Mass/Vol]32.0 g/dL29.9-35.2FHolzer HospitalV Auto (RBC) [Entitic vol]on 21-47-6556AAR (RBC) [Entitic vol]93.9 fL81.0-99.0[facility] CenterNo Panel Informationon 39-83-0483Pigsvfjj I High Sensitivity6.5 pg/mL4.0-51.3FAshtabula General HospitalComment on above: CUT-OFF POINTS HAVE BEEN ESTABLISHED BASED ON THE FOURTHUNIVERSAL DEFINITION OF MYOCARDIAL INFARCTION. THE UPPERREFERENCE LIMIT (URL) OF TROPONIN, DEFINED THE 99THPERCENTILE OF cTnI DISTRIBUTION IN A REFERENCE POPULATION,HAS BEEN CONFIRMED THE DECISION THRESHOLD FOR MIDIAGNOSIS.99TH PERCENTILE = 51.4 PG/MLNOTE: HIGH-SENSITIVITY TROPONIN ASSAY IS NOT INTENDED TO BEUSED IN ISOLATION BUT SHOULD BE INTERPRETED IN CONJUNCTIONWITH OTHER DIAGNOSTIC AND CLINICAL INFORMATION.Absolute Basophils (Manual)0.00 10 3/uL0.00-0.10[facility] CenterBand Neutrophils # (Manual)0.5 10 3/uLHigh0.0-0.3 [facility] CenterEosinophils # (Manual)0.53 10 3/uL0.00-0.70 [facility] CenterLymphocytes # (Manual)1.99 10 3/uL1.20-3.80 [facility] CenterMonocytes # (Manual)0.39 10 3/uL0.30-0.80 [facility] Centeregmented Neutrophils # (Manual)9.84 10 3/uL High1.4-6.5FAshtabula General HospitalPlatelet mean volume Auto (Bld) [Entitic vol]on 63-99-6853Sdosnqsg mean volume (Bld) [Entitic vol]10.4 fL 9.5-13.5FAshtabula General HospitalPlatelets Auto (Bld) [#/Vol]on 60-54-3900Sqpmweqtl (Bld) [#/Vol]145 10 3/vPCik043-858MwrhurjeaAdena Regional Medical CenterProthrombin time (PT)on 64-42-2850XZ Coag (PPP) [Time]13.5 sHigh9.0-11.6 [facility] CenterRBC Auto (Bld) [#/Vol]on 48-26-3983VZD (Bld) [#/Vol]4.59 10 6/uL4.20-5.40[facility] Centeregmented neutrophils/100 WBC Manual cnt (Bld)on 94-52-6953Civijeudy neutrophils/100 WBC (Bld)74.0 %[facility] Centererum or plasma albumin/globulin mass ratioon 36-70-7761Hlbmlqi/Globulin [Mass ratio]1.2 {ratio}[facility] Centererum or plasma anion gap determinationon 35-75-4647Jqjcu gap [Moles/Vol]9.7 mmol/LFAshtabula General HospitalOffice Visiton 33-83-6351Uepssz-up [id number] Zoraida Barrios 1935 F Date Provider Department Center 03/28/2024 AALIYAH HENDERSON CARD [facility] Family History Problem Relation Age of Onset Hypertension Mother Family Status - Relation Status Age at Mother Level of Service:41027 [place] OFFICE/OUTPATIENT ESTABLISHED LOW MDM 20 [facility]Bas[facility] Auto (Bld) [#/Vol]on 12-28-2023 Basophils (Bld) [#/Vol]0.2 10 3/uL0.0-0.1FAshtabula General Hospital Basophils/100 WBC Auto (Bld)on 57-57-3371Omkguprcc/100 WBC (Bld)3.4 %0.2-2.0 [facility] CenterEosinophils/100 WBC Auto (Bld)on 12-28-2023 Eosinophils/100 WBC (Bld)6.2 %0.9-7.0[facility] Erythrocyte distribution width Auto (RBC) [Ratio]on 64-92-5157Jescjodrumv distribution width (RBC) [Ratio]14.8 %11.0-15.0[facility] Estimated glomerular filtration rate (GFR) non- Americanon 12-28-2023 GFR/1.73 sq M.predicted among non-blacks MDRD (S/P/Bld) [Vol rate/Area]46 mL/min/{1.73_m2}>=60[facility] CenterHematocrit Auto (Bld) [Volume fraction]on 11-66-9102Rgrehrsgjk (Bld) [Volume fraction]42.9 %36.0-48.0 [facility] CenterHemoglobin [Mass/volume] in Bloodon 12-28-2023 Hemoglobin (Bld) [Mass/Vol]13.7 g/dL12.0-16.0[facility] Laboratory - Chemistry and Chemistry - challengeon 03-93-0253Rpqpcqd [Mass/Vol] 9.7 mg/dL8.5-10.1FAshtabula General HospitalChloride [Moles/Vol]106 mmol/L 98-107[facility] CenterCO2 [Moles/Vol]26.1 mmol/L21.0-32.0 [facility] CenterCreatinine [Mass/Vol]1.11 mg/dL0.55-1.02 [facility] CenterGFR/1.73 sq M.predicted MDRD (S/P/Bld) [Vol rate/Area]56 mL/min/{1.73_m2}>=60[facility] CenterGlucose [Mass/Vol]108 mg/iA98-588XlkjndjcuAdena Regional Medical CenterPotassium [Moles/Vol] 3.8 mmol/L3.5-5.1FTrinity Health System East Campusodium [Moles/Vol]139 mmol/L 136-145[facility] CenterUrea nitrogen [Mass/Vol]22.0 mg/dL 7.0-18.0[facility] CenterUrea nitrogen/Creatinine [Mass ratio] 19.8 mg/mgAdena Regional Medical CenterLaboratory - Hematology and Cell countson 34-31-4507Showoocy granulocytes/100 WBC (Bld)0.5 %0.0-0.5FAshtabula General HospitalLeukocytes [#/volume] corrected for nucleated erythrocytes in Blood by Automated counon 76-49-1193TSF corrected for nucl RBC Auto (Bld) [#/Vol]6.0 10 3/uL4.0-11.0[facility] Lymphocytes Auto (Bld) [#/Vol]on 89-54-1393Zvmujpmolzf (Bld) [#/Vol]2.1 10 3/uL 1.2-3.8[facility] CenterLymphocytes/100 WBC Auto (Bld)on 73-02-2741Efzvemxbbte/100 WBC (Bld)34.9 %20.5-60.0[facility] CenterH Auto (RBC) [Entitic mass]on 05-77-2474AJV (RBC) [Entitic mass]30.0 pg 26.7-34.0[facility] CenterMCHC Auto (RBC) [Mass/Vol]on 10-19-0189SYKW (RBC) [Mass/Vol]31.9 g/dL29.9-35.2FAshtabula General HospitalMCV Auto (RBC) [Entitic vol]on 60-65-2657ZBD (RBC) [Entitic vol]93.9 fL 81.0-99.0[facility] CenterMonocytes Auto (Bld) [#/Vol]on 73-03-5871Qoergmqsu (Bld) [#/Vol]0.9 10 3/uL0.3-0.8[facility] CenterMonocytes/100 WBC Auto (Bld)on 76-34-6482Sdbolmmkg/100 WBC (Bld)15.1 % 1.7-12.0[facility] CenterNeutrophils Auto (Bld) [#/Vol]on 12-43-3650Qaqhicxills (Bld) [#/Vol]2.4 10 3/uL1.4-6.5FAshtabula General HospitalNeutrophils/100 WBC Auto (Bld)on 53-60-2881Awjqgpvsjhl/100 WBC (Bld)39.9 % 43.0-75.0[facility] CenterNo Panel Informationon 12-28-2023 Eosinophils # (Auto)0.4 10 3/uL0.0-0.7FAshtabula General HospitalImmature Granulocyte # (Auto)0.03 10 3/uL0.00-0.03[facility] Troponin I High Sensitivity6.6 pg/mL4.0-51.3FAshtabula General Hospital Comment on above:CUT-OFF POINTS HAVE BEEN ESTABLISHED BASED ON THE FOURTHUNIVERSAL DEFINITION OF MYOCARDIAL INFARCTION. THE UPPERREFERENCE LIMIT (URL) OF TROPONIN, DEFINED THE 99THPERCENTILE OF cTnI DISTRIBUTION IN A REFERENCE POPULATION,HAS BEEN CONFIRMED THE DECISION THRESHOLD FOR MIDIAGNOSIS.99TH PERCENTILE = 51.4 PG/MLNOTE: HIGH-SENSITIVITY TROPONIN ASSAY IS NOT INTENDED TO BEUSED IN ISOLATION BUT SHOULD BE INTERPRETED IN CONJUNCTIONWITH OTHER DIAGNOSTIC AND CLINICAL INFORMATION.Platelet mean volume Auto (Bld) [Entitic vol]on 18-26-2037Etucjtae mean volume (Bld) [Entitic vol] 10.8 fL9.5-13.5FAshtabula General HospitalPlatelets Auto (Bld) [#/Vol]on 30-13-2606Msmmhbnrn (Bld) [#/Vol]142 10 3/xL058-115AgsrnityfAdena Regional Medical CenterRBC Auto (Bld) [#/Vol]on 98-41-5267IOJ (Bld) [#/Vol]4.57 10 6/uL4.20-5.40 [facility] Centererum or plasma anion gap determinationon 60-20-0618Ykvff gap [Moles/Vol]10.7 mmol/LFAshtabula General HospitalPROF CHEM 8 (BAS METB)on 64-93-1154Hnbml gap [Moles/Vol]12.5 mmol/LNormalBellevue HospitalComment on above:Performed By: #### BMP #### [facility] [address] [address] [address] Arden MagallonCalcium [Mass/Vol]10.0 mg/dLNormal8.5-10.1[facility] Comment on above:Performed By: #### BMP #### [facility] [address] [address] [address] Arden MagallonChloride [Moles/Vol]105 mmol/MNyzcmi52-776YfvBellevue Hospital Comment on above:Performed By: #### BMP #### [facility] [address] [address] [address] Arden MagallonCO2 [Moles/Vol]29.9 mmol/JHvvznl15.0-32.0[facility] Comment on above:Performed By: #### BMP #### [facility] [address] [address] [address] Arden MagallonCreatinine [Mass/Vol]1.26 mg/dLCritically high0.55-1.02The [facility] LimaComment on above:Performed By: #### BMP #### [facility] [address] [address] [address] Arden CarranzaGFR-AF JKAUDAZC81 mL/min/1.90k0Rejqsvpixy low>=60The [facility] LimaComment on above:Performed By: #### BMP #### [facility] [address] [address] [address] Arden CarranzaGFR-NON AF RIHYXQHP99 mL/min/1.55w3Ickxodyyce low>=60The [facility] LimaComment on above:Performed By: #### BMP #### [facility] [address] [address] [address] Arden MagallonGlucose [Mass/Vol]108 mg/dLCritically vztq65-100Wkp [facility] LimaComment on above:Performed By: #### BMP #### [facility] [address] [address] [address] Arden MagallonPotassium [Moles/Vol]3.4 mmol/LCritically low3.5-5.1[facility] HospitalComment on above:Performed By: #### BMP #### [facility] [address] [place] [address] Dr. Arden Parkerum [Moles/Vol]144 mmol/TYzmgte527-458Ldr [facility] Comment on above:Performed By: #### BMP #### [facility] [address] [place] [address] Dr. Arden Jones nitrogen [Mass/Vol]28.0 mg/dLCritically high7.0-18.0[facility] HospitalComment on above:Performed By: #### BMP #### [facility] [address] [place] [address] Dr. Arden Jones nitrogen/Creatinine [Mass ratio]22.2 mg/mgNormalThe [facility] LimaComment on above:Performed By: #### BMP #### [facility] [address] [place] [address] Dr. Arden Caraballo CINDY 3-6on 55-62-4916SQ [Catalytic activity/Vol]27 U/L Lctgtm11-010NotBellevue HospitalComment on above:Performed By: #### BMP #### [facility] [address] [place] [address] Dr. Arden Childs.MB [Mass/Vol]0.84 ng/mLNormal<=3.60The [facility] Comment on above:Performed By: #### BMP #### [facility] [address] [place] [address] Dr. Arden DawsonOP12.4 pg/mLNormal4.0-51.3TBethesda North HospitalCombeaumont hospital on above:Result Comment: CUT-OFF POINTS HAVE BEEN ESTABLISHED BASED ON THE FOURTH UNIVERSAL DEFINITIONS OF MYOCARDIAL INFARCTION. THE UPPER REFERENCE LIMIT (URL) OF TROPONIN, DEFINED THE 99TH PERCENTILE OF cTnI DISTRIBUTION IN A REFERENCE POPULATION, HAS BEEN CONFIRMED THE DECISION THRESHOLD FOR [place] DIAGNOSIS.Performed By: #### BMP #### [facility] [address] [place] [address] Dr. Arden WHITE ADMITon 41-34-4566HO [Catalytic activity/Vol]42 U/L Awexjf58-969AzdBellevue HospitalComment on above:Performed By: #### BMP #### [facility] [address] [place] [address] Dr. Arden Childs.MB [Mass/Vol]0.82 ng/mLNormal<=3.60[facility] Comment on above:Performed By: #### BMP #### [facility] [address] [place] [address] Dr. Arden NelsonTROP9.8 pg/mLNormal4.0-51.3The [facility] LimaComment on above:Result Comment: CUT-OFF POINTS HAVE BEEN ESTABLISHED BASED ON THE FOURTH UNIVERSAL DEFINITIONS OF MYOCARDIAL INFARCTION. THE UPPER REFERENCE LIMIT (URL) OF TROPONIN, DEFINED THE 99TH PERCENTILE OF cTnI DISTRIBUTION IN A REFERENCE POPULATION, HAS BEEN CONFIRMED THE DECISION THRESHOLD FOR TN DIAGNOSIS.Performed By: #### BMP #### [facility] [address] [place] [address] Dr. Arden BoogieO50 ng/mLNormal9-82B[facility] HospitalComment on above: Performed By: #### BMP #### [facility] [address] [place] [address] Dr. Arden Marie AUTO DIFFon 04-22-1410GHSA #0.2 103/ulCritically high0.0-0.1 The [facility] LimaComment on above:Performed By: #### CBC #### [facility] [address] [place] [address] Dr. Arden MagallonBasophils/100 WBC (Bld)2.2 %Critically high0.2-2.0B[facility] HospitalComment on above:Performed By: #### CBC #### [facility] [address] [place] [address] Dr. Her ChangEO #1.3 103/ulCritically high0.0-0.7The [facility] LimaComment on above:Performed By: #### CBC #### [facility] [address] [place] [address] Dr. Arden Carranzaosinophils/100 WBC (Bld)16.5 %Critically high0.9-7.0The [facility] LimaComment on above:Performed By: #### CBC #### [facility] [address] [place] [address] Dr. Arden Carranzarythrocyte distribution width (RBC) [Ratio]14.3 %Lqdszr61.0-15.0 The [facility] LimaComment on above:Performed By: #### CBC #### [facility] [address] [place] [address] Dr. Arden MagallonHematocrit (Bld) [Volume fraction]38.3 %Qmuurd34.0-48.0[facility]imaComment on above:Performed By: #### CBC #### [facility] [address] [place] [address] Dr. Arden MagallonHemoglobin (Bld) [Mass/Vol]12.6 g/fRUickmr62.0-16.0[facility]imaComment on above:Performed By: #### CBC #### [facility] [address] [place] [address] Dr. Arden Mathew #0.03 10e3/ulNormal0.00-0.03The [facility]imaComment on above:Performed By: #### CBC #### [facility] [address] [place] [address] Dr. Arden Mathew %0.4 %Normal0.0-0.5The [facility] HospitalComment on above: Performed By: #### CBC #### [facility] [address] [place] [address] Dr. Arden Alvarado #2.4 103/ulNormal1.2-3.8The [facility]imaComment on above:Performed By: #### CBC #### [facility] [address] [place] [address] Dr. Yilan ChangLymphocytes/100 WBC (Bld)30.0 %Hncrbh86.5-60.0The [facility]imaComment on above:Performed By: #### CBC #### [facility] [address] [place] [address] Dr. Arden Rodríguez DIFF REQNONormalThe [facility] LimaComment on above: Performed By: #### CBC #### [facility] [address] [place] [address] Dr. Arden Torres (RBC) [Entitic mass]30.7 saRqmzxk39.7-34.0The [facility]imaComment on above:Performed By: #### CBC #### [facility] [address] [place] [address] Dr. Arden Torres (RBC) [Mass/Vol]32.9 g/qLQmrbus20.9-35.2The [facility]imaComment on above:Performed By: #### CBC #### [facility] [address] [place] [address] Dr. Arden Leonard (RBC) [Entitic vol]93.4 sAUlxhoq16.0-99.0The [facility] LimaComment on above:Performed By: #### CBC #### [facility] [address] [place] [address] Dr. Arden Nelson #1.1 103/ulCritically high0.3-0.8[facility] Comment on above:Performed By: #### CBC #### [facility] [address] [place] [address] Dr. Arden Perrinocytes/100 WBC (Bld)14.2 %Critically high1.7-12.0The [facility] LimaComment on above:Performed By: #### CBC #### [facility] [address] [place] [address] Dr. Arden Patterson #2.9 103/ulNormal1.4-6.5The [facility] LimaComment on above:Performed By: #### CBC #### [facility] [address] [place] [address] Dr. Arden MagallonNeutrophils/100 WBC (Bld)36.7 %Critically low43.0-75.0The [facility] LimaComment on above:Performed By: #### CBC #### [facility] [address] [address] [address] Arden MagallonPlatelet mean volume (Bld) [Entitic vol]11.4 fLNormal9.5-13.5The [facility] LimaComment on above:Performed By: #### CBC #### [facility] [address] [address] [address] Arden MagallonPLT162 103/uqRomfyr263-156Nqk [facility] LimaComment on above: Performed By: #### CBC #### [facility] [address] [place] [address] Dr. Arden MagallonRBC4.10 106/ulCritically low4.20-5.40The [facility] LimaComment on above:Performed By: #### CBC #### [facility] [address] [place] [address] Dr. Arden MagallonWBC8.0 103/ulNormal4.0-11.0The [facility] LimaComment on above: Performed By: #### CBC #### [facility] [address] [place] [address] Dr. Arden MagallonPROF CHEM 8 (BAS METB)on 80-29-2735Szhqd gap [Moles/Vol]11.8 mmol/LNormalThe [facility] LimaComment on above:Performed By: #### BMP #### [facility] [address] [place] [address] Dr. Arden MagallonCalcium [Mass/Vol]9.7 mg/dLNormal8.5-10.1The [facility] Comment on above:Performed By: #### BMP #### [facility] [address] [place] [address] Dr. Arden MagallonChloride [Moles/Vol]105 mmol/HHagjmo12-268Rov [facility] Comment on above:Performed By: #### BMP #### [facility] [address] [address] [address] Arden MagallonCO2 [Moles/Vol]25.0 mmol/SYhgroo87.0-32.0The [facility] Comment on above:Performed By: #### BMP #### [facility] [address] [address] [address] Arden MagallonCreatinine [Mass/Vol]1.07 mg/dLCritically high0.55-1.02The [facility] LimaComment on above:Performed By: #### BMP #### [facility] [address] [address] [address] Her ChangEGFR-AF RAOYLSFD21 mL/min/1.05r0Uatrvztsgp low>=60The [facility] LimaComment on above:Performed By: #### BMP #### [facility] [address] [address] [address] Arden CarranzaGFR-NON AF WNWABPTV42 mL/min/1.00m7Mwxzuwlnqf low>=60The [facility] LimaComment on above:Performed By: #### BMP #### [facility] [address] [address] [address] Arden MagallonGlucose [Mass/Vol]106 mg/oQFylciv13-168Lit [facility] Comment on above:Performed By: #### BMP #### [facility] [address] [address] [address] Arden MagallonPotassium [Moles/Vol]3.8 mmol/LNormal3.5-5.1The [facility] Comment on above:Performed By: #### BMP #### [facility] [address] [address] [address] Arden MagallonSodium [Moles/Vol]138 mmol/DUudgtp041-471Bsv [facility] Comment on above:Performed By: #### BMP #### [facility] [address] [address] [address] Arden MagallonUrea nitrogen [Mass/Vol]18.0 mg/dLNormal7.0-18.0The [facility] LimaComment on above:Performed By: #### BMP #### [facility] [address] [address] [address] Arden MagallonUrea nitrogen/Creatinine [Mass ratio]16.8 mg/mgNoalThCleveland Clinic Akron GeneralComment on above:Performed By: #### BMP #### [facility] [address] [place] [address] Dr. Arden KevinC AUTO DIFFon [id number] #0.2 103/ulCritically high0.0-0.1 The [facility] LimaComment on above:Performed By: #### CBC #### [facility] [address] [place] [address] Dr. Arden MagallonBasophils/100 WBC (Bld)2.1 %Critically high0.2-2.0The [facility]Com[facility] on above:Performed By: #### CBC #### [facility] [address] [place] [address] Dr. Her ChangEO #1.5 103/ulCritically high0.0-0.7The [facility] LimaComment on above:Performed By: #### CBC #### [facility] [address] [place] [address] Dr. Arden Carranzaosinophils/100 WBC (Bld)16.6 %Critically high0.9-7.0The [facility]Com[facility] on above:Performed By: #### CBC #### [facility] [address] [place] [address] Dr. Arden Carranzarythrocyte distribution width (RBC) [Ratio]14.1 %Idkpir07.0-15.0 [facility] on above:Performed By: #### CBC #### [facility] [address] [place] [address] Dr. Arden MagallonHematocrit (Bld) [Volume fraction]37.7 %Yljwzu26.0-48.0[facility] on above:Performed By: #### CBC #### [facility] [address] [place] [address] Dr. Arden MagallonHemoglobin (Bld) [Mass/Vol]12.5 g/xFKhkegv84.0-16.0The [facility] LimaComment on above:Performed By: #### CBC #### [facility] [address] [address] [address] Arden Mathew #0.04 10e3/ulCritically high0.00-0.03The [facility] Comment on above:Performed By: #### CBC #### [facility] [address] [address] [address] Arden Mathew %0.4 %Normal0.0-0.5The [facility] LimaComment on above: Performed By: #### CBC #### [facility] [address] [place] [address] Dr. Arden Alvarado #1.8 103/ulNormal1.2-3.8The [facility] LimaComment on above:Performed By: #### CBC #### [facility] [address] [place] [address] Dr. Arden Vitalehocytes/100 WBC (Bld)19.6 %Critically low20.5-60.0The [facility] LimaComment on above:Performed By: #### CBC #### [facility] [address] [place] [address] Dr. Arden Rodríguez DIFF REQNONormalThe [facility] Hospital LimaComment on above: Performed By: #### CBC #### [facility] [address] [place] [address] Dr. Arden Torres (RBC) [Entitic mass]31.1 xhPrwcyp56.7-34.0The [facility] LimaComment on above:Performed By: #### CBC #### [facility] [address] [place] [address] Dr. Arden Torres (RBC) [Mass/Vol]33.2 g/jRSbubaj64.9-35.2The [facility] LimaComment on above:Performed By: #### CBC #### [facility] [address] [place] [address] Dr. Arden Torres (RBC) [Entitic vol]93.8 gOGhqyym30.0-99.0The [facility] LimaComment on above:Performed By: #### CBC #### [facility] [address] [place] [address] Dr. Arden Nelson #1.1 103/ulCritically high0.3-0.8The [facility] Comment on above:Performed By: #### CBC #### [facility] [address] [place] [address] Dr. Arden Perrinocytes/100 WBC (Bld)12.1 %Critically high1.7-12.0The [facility] LimaComment on above:Performed By: #### CBC #### [facility] [address] [place] [address] Dr. Arden Patterson #4.6 103/ulNormal1.4-6.5The [facility] LimaComment on above:Performed By: #### CBC #### [facility] [address] [place] [address] Dr. Arden Miguelutrophils/100 WBC (Bld)49.2 %Mrtqrw37.0-75.0The [facility] LimaComment on above:Performed By: #### CBC #### [facility] [address] [place] [address] Dr. Arden Villafana mean volume (Bld) [Entitic vol]10.8 fLNormal9.5-13.5The [facility] LimaComment on above:Performed By: #### CBC #### [facility] [address] [place] [address] Dr. Arden MagallonPLT149 103/ulCritically nnu782-768Zem [facility] LimaComment on above:Performed By: #### CBC #### [facility] [address] [place] [address] Dr. Arden MagallonRBC4.02 106/ulCritically low4.20-5.40The [facility] LimaComment on above:Performed By: #### CBC #### [facility] [address] [place] [address] Dr. Arden MagallonWBC9.3 103/ulNormal4.0-11.0[facility] on above: Performed By: #### CBC #### [facility] [address] [place] [address] Dr. Arden MagallonCovid-19 PCR ([facility])on 97-59-4519EGDP-CoV-2 (COVID-19) RNA ISABELLA+probe Ql (Unsp spec)Not detectedNormalNOT DETECTEDThe [facility] Comment on above:Result Comment: This test is not yet approved or cleared by the [place] FDA. When there are no FDA-approved or cleared tests available, and other criteria are met, FDA can make tests available under an emergency access mechanism called an Emergency Use Authorization (EUA). The EUA for this test is supported by the Customer Orders Clerk of Health and Human Service's (HHS's) declaration that circumstances exist to justify the emergency use of in vitro diagnostics for the detection and/or diagnosis of the virus that causes COVID- 19. This EUA will remain in effect (meaning [...] of clinical signs and symptoms consistent with SARS-CoV-2.Performed By: #### CBC #### [facility] [address] [place] [address] Dr. Arden MagallonINFLUENZA A AND B AGon [id number] HospitalCombeaumont hospital on above:Result Comment: Negative for Flu A protein angiten. Infection due to Flu A cannot be ruled out. FluA angiten in the sample may be below the detection limit of the test.Performed By: #### CBC #### [facility] [address] [place] [address] Dr. Adren MagallonINFLUBNEGHSOhioHealth Berger Hospital on above: Result Comment: Negative for Flu B protein antigen. Infection due to Flu B cannot be ruled out. FluB antigen in the sample may be below the detection limit of the test.Performed By: #### CBC #### [facility] [address] [address] [address] Arden Em AGNegativeNormalNEGATIVE SEE COMMENTThe [facility] Hospital LimaComment on above:Performed By: #### CBC #### [facility] [address] [place] [address] Dr. Arden Meeks AGNegativeNormalNEGATIVE SEE COMMENTThe [facility] LimaComment on above:Performed By: #### CBC #### [facility] [address] [place] [address] Dr. Arden MagallonINTERNAL CONTROLSWithin Normal LimitsNormalWithin Normal Limits The [facility] LimaComment on above:Performed By: #### CBC #### [facility] [address] [place] [address] Dr. Arden MagallonPROF CHEM 8 (BAS METB)on 19-03-8486Xowbe gap [Moles/Vol]10.8 mmol/LNormalThe [facility] LimaComment on above:Performed By: #### PT, DDIM #### [facility] [address] [place] [address] Dr. Arden MagallonCalcium [Mass/Vol]9.3 mg/dLNormal8.5-10.1The [facility] Comment on above:Performed By: #### PT, DDIM #### [facility] [address] [place] [address] Dr. Arden MagallonChloride [Moles/Vol]107 mmol/FOyejgr21-483Eaw [facility] Comment on above:Performed By: #### PT, DDIM #### [facility] [address] [place] [address] Dr. Arden MagallonCO2 [Moles/Vol]28.0 mmol/HEekita36.0-32.0The [facility] Comment on above:Performed By: #### PT, DDIM #### [facility] [address] [place] [address] Dr. Arden MagallonCreatinine [Mass/Vol]0.98 mg/dLNormal0.55-1.02The [facility] LimaComment on above:Performed By: #### PT, DDIM #### [facility] [address] [place] [address] Dr. Arden CarranzaGFR-AF TRINIDADIAN>60Normal>=60The [facility] LimaComment on above:Performed By: #### PT, DDIM #### [facility] [address] [place] [address] Dr. Arden CarranzaGFR-NON AF SYKDQUNK39 mL/min/1.79f5Ddvlbogrhj low>=60The [facility] LimaComment on above:Performed By: #### PT, DDIM #### [facility] [address] [place] [address] Dr. Arden MagallonGlucose [Mass/Vol]111 mg/dLCritically ykzy76-063Bru [facility] LimaComment on above:Performed By: #### PT, DDIM #### [facility] [address] [place] [address] Dr. Arden MagallonPotassium [Moles/Vol]3.8 mmol/LNormal3.5-5.1[facility] Comment on above:Performed By: #### PT, DDIM #### [facility] [address] [place] [address] Dr. Arden Jefferydium [Moles/Vol]142 mmol/NXwkrih764-324LczBellevue Hospital Comment on above:Performed By: #### PT, DDIM #### [facility] [address] [place] [address] Dr. Arden MagallonUrea nitrogen [Mass/Vol]15.0 mg/dLNormal7.0-18.0The [facility]imaComment on above:Performed By: #### PT, DDIM #### [facility] [address] [place] [address] Dr. Arden MagallonUrea nitrogen/Creatinine [Mass ratio]15.3 mg/mgNormalThe [facility] LimaComment on above:Performed By: #### PT, DDIM #### [facility] [address] [place] [address] Dr. Arden MagallonXR CHEST 1 Von [id number] CHEST 1 VEXAMINATION: XR CHEST 1 V HISTORY: SHORTNESS OF [...] Electronically authenticated by: HARJINDER RAMIREZ Date: 2022-09-26 10:22[facility] AUTO DIFFon [id number] #0.2 103/ulCritically high 0.0-0.1The [facility]imaComment on above:Performed By: #### CBC #### [facility] [address] [address] [address] Arden MagallonBasophils/100 WBC (Bld)2.0 %Normal0.2-2.0The [facility] Comment on above:Performed By: #### CBC #### [facility] [address] [address] [address] Arden Valdes #0.8 103/ulCritically high0.0-0.7The [facility]imaComment on above:Performed By: #### CBC #### [facility] [address] [address] [address] Arden Carranzaosinophils/100 WBC (Bld)9.7 %Critically high0.9-7.0The [facility]imaComment on above:Performed By: #### CBC #### [facility] [address] [address] [address] Arden Carranzarythrocyte distribution width (RBC) [Ratio]14.2 %Vuferw23.0-15.0 The [facility]imaComment on above:Performed By: #### CBC #### [facility] [address] [address] [address] Arden MagallonHematocrit (Bld) [Volume fraction]39.2 %Svvlww17.0-48.0The [facility]imaComment on above:Performed By: #### CBC #### [facility] [address] [place] [address] Dr. Arden MagallonHemoglobin (Bld) [Mass/Vol]12.7 g/cKIzyksv86.0-16.0The [facility]imaComment on above:Performed By: #### CBC #### [facility] [address] [place] [address] Dr. Arden Mathew #0.04 10e3/ulCritically high0.00-0.03The [facility] Comment on above:Performed By: #### CBC #### [facility] [address] [place] [address] Dr. Arden Mathew %0.5 %Normal0.0-0.5The [facility]imaComment on above: Performed By: #### CBC #### [facility] [address] [place] [address] Dr. Arden Alvarado #1.7 103/ulNormal1.2-3.8The [facility]imaComment on above:Performed By: #### CBC #### [facility] [address] [place] [address] Dr. Arden Vitalehocytes/100 WBC (Bld)19.2 %Critically low20.5-60.0The [facility] LimaComment on above:Performed By: #### CBC #### [facility] [address] [place] [address] Dr. Arden Rodríguez DIFF REQNONormalThe [facility] LimaComment on above: Performed By: #### CBC #### [facility] [address] [place] [address] Dr. Arden Eaton (RBC) [Entitic mass]31.1 jbDkbsav94.7-34.0The [facility]imaComment on above:Performed By: #### CBC #### [facility] [address] [place] [address] Dr. Arden Torres (RBC) [Mass/Vol]32.4 g/jXUhkxif87.9-35.2The [facility]imaComment on above:Performed By: #### CBC #### [facility] [address] [place] [address] Dr. Arden Leonard (RBC) [Entitic vol]96.1 nGGejxrz01.0-99.0The [facility]imaComment on above:Performed By: #### CBC #### [facility] [address] [place] [address] Dr. Arden Nelson #0.8 103/ulNormal0.3-0.8The [facility]imaComment on above:Performed By: #### CBC #### [facility] [address] [place] [address] Dr. Arden Perrinocytes/100 WBC (Bld)9.5 %Normal1.7-12.0The [facility] Comment on above:Performed By: #### CBC #### [facility] [address] [place] [address] Dr. Arden Patterson #5.2 103/ulNormal1.4-6.5The [facility]imaComment on above:Performed By: #### CBC #### [facility] [address] [place] [address] Dr. Arden Miguelutrophils/100 WBC (Bld)59.1 %Gvcnkb74.0-75.0The [facility]imaComment on above:Performed By: #### CBC #### [facility] [address] [place] [address] Dr. Arden Salaslet mean volume (Bld) [Entitic vol]11.0 fLNormal9.5-13.5The [facility]imaComment on above:Performed By: #### CBC #### [facility] [address] [place] [address] Dr. Arden AyersT167 103/tgEnleeh008-844Qig [facility]imaComment on above: Performed By: #### CBC #### [facility] [address] [place] [address] Dr. Arden MagallonRBC4.08 106/ulCritically low4.20-5.40The [facility]imaComment on above:Performed By: #### CBC #### [facility] [address] [place] [address] Dr. Arden MagallonWBC8.7 103/ulNormal4.0-11.0The [facility]imaComment on above: Performed By: #### CBC #### [facility] [address] [place] [address] Dr. Arden MagallonPROF CHEM 8 (BAS METB)on 23-46-7785Wruzc gap [Moles/Vol]10.4 mmol/LNormalThe [facility] LimaComment on above:Performed By: #### BMP #### [facility] [address] [place] [address] Dr. Arden MagallonCalcium [Mass/Vol]9.9 mg/dLNormal8.5-10.1The [facility] Comment on above:Performed By: #### BMP #### [facility] [address] [place] [address] Dr. Arden MagallonChloride [Moles/Vol]104 mmol/IAencrq90-732Ghh [facility] Comment on above:Performed By: #### BMP #### [facility] [address] [place] [address] Dr. Arden MagallonCO2 [Moles/Vol]28.0 mmol/GVtqplp49.0-32.0The [facility] Comment on above:Performed By: #### BMP #### [facility] [address] [place] [address] Dr. Arden MagallonCreatinine [Mass/Vol]1.20 mg/dLCritically high0.55-1.02The [facility]imaComment on above:Performed By: #### BMP #### [facility] [address] [place] [address] Dr. Her ChangEGFR-AF FEZUGAKV38 mL/min/1.95d3Cecbhmqzfl low>=60The [facility]imaComment on above:Performed By: #### BMP #### [facility] [address] [address] [address] Arden CarranzaGFR-NON AF DBCIPNHF62 mL/min/1.81n1Jzsjukwidr low>=60The [facility]imaComment on above:Performed By: #### BMP #### [facility] [address] [address] [address] Arden MagallonGlucose [Mass/Vol]133 mg/dLCritically jrwb40-590Zbv [facility]imaComment on above:Performed By: #### BMP #### [facility] [address] [address] [address] Arden MagallonPotassium [Moles/Vol]3.4 mmol/LCritically low3.5-5.1The [facility]imaComment on above:Performed By: #### BMP #### [facility] [address] [place] [address] Dr. Arden MagallonSodium [Moles/Vol]139 mmol/VTddpiy922-912Dwi [facility] Comment on above:Performed By: #### BMP #### [facility] [address] [address] [address] Arden MagallonUrea nitrogen [Mass/Vol]19.0 mg/dLCritically high7.0-18.0The [facility]imaComment on above:Performed By: #### BMP #### [facility] [address] [place] [address] Dr. Arden MagallonUrea nitrogen/Creatinine [Mass ratio]15.8 mg/mgNormalThe [facility] LimaComment on above:Performed By: #### BMP #### [facility] [address] [place] [address] Dr. Arden Khalil 78-65-2644JYI6.918 uIU/mLNormal0.358-3.740The [facility] LimaComment on above:Performed By: #### BMP #### [facility] [address] [place] [address] Dr. Arden Gomez 83-16-2271Uzkqjdkjjfb peptide B (Bld) [Mass/Vol]366.0 pg/mL Normal<=1,800.0The [facility]imaComment on above:Performed By: #### BNP, CMP #### [facility] [address] [place] [address] Dr. Arden Marie AUTO DIFFon [id number] #0.1 103/ulNormal0.0-0.1The [facility] on above:Performed By: #### CBC #### [facility] [address] [place] [address] Dr. Arden MagallonBasophils/100 WBC (Bld)1.7 %Normal0.2-2.0The [facility] Comment on above:Performed By: #### CBC #### [facility] [address] [place] [address] Dr. Arden Valdes #0.7 103/ulNormal0.0-0.7The [facility] on above: Performed By: #### CBC #### [facility] [address] [place] [address] Dr. Arden Carranzaosinophils/100 WBC (Bld)9.1 %Critically high0.9-7.0The [facility] on above:Performed By: #### CBC #### [facility] [address] [place] [address] Dr. Arden Carranzarythrocyte distribution width (RBC) [Ratio]14.4 %[place]ouaug51.0-15.0 The [facility] on above:Performed By: #### CBC #### [facility] [address] [place] [address] Dr. Arden MagallonHematocrit (Bld) [Volume fraction]39.0 %Lmbbmq42.0-48.0The [facility]imaComment on above:Performed By: #### CBC #### [facility] [address] [place] [address] Dr. Arden MagallonHemoglobin (Bld) [Mass/Vol]12.8 g/bEGndqis38.0-16.0The [facility] on above:Performed By: #### CBC #### [facility] [address] [place] [address] Dr. Arden Mathew #0.02 10e3/ulNormal0.00-0.03The [facility]imaComment on above:Performed By: #### CBC #### [facility] [address] [place] [address] Dr. Arden Mathew %0.3 %Normal0.0-0.5The [facility]imaComment on above: Performed By: #### CBC #### [facility] [address] [place] [address] Dr. Arden Alvarado #1.8 103/ulNormal1.2-3.8The [facility]imaComment on above:Performed By: #### CBC #### [facility] [address] [place] [address] Dr. Arden Vitalehocytes/100 WBC (Bld)23.6 %Misboq97.5-60.0The [facility]imaComment on above:Performed By: #### CBC #### [facility] [address] [place] [address] Dr. Arden FerroUAL DIFF REQNONormalThe [facility] LimaComment on above: Performed By: #### CBC #### [facility] [address] [place] [address] Dr. Arden Torres (RBC) [Entitic mass]31.0 ccYagxae36.7-34.0The [facility]imaComment on above:Performed By: #### CBC #### [facility] [address] [place] [address] Dr. Arden Torres (RBC) [Mass/Vol]32.8 g/zVAwbbha32.9-35.2The [facility]imaComment on above:Performed By: #### CBC #### [facility] [address] [place] [address] Dr. Arden Torres (RBC) [Entitic vol]94.4 cGYqldkd36.0-99.0The [facility]imaComment on above:Performed By: #### CBC #### [facility] [address] [place] [address] Dr. Arden Nelson #1.1 103/ulCritically high0.3-0.8The [facility] Comment on above:Performed By: #### CBC #### [facility] [address] [address] [address] Arden Perrinocytes/100 WBC (Bld)15.2 %Critically high1.7-12.0The [facility]imaComment on above:Performed By: #### CBC #### [facility] [address] [place] [address] Dr. Arden Patterson #3.8 103/ulNormal1.4-6.5The [facility]imaComment on above:Performed By: #### CBC #### [facility] [address] [place] [address] Dr. Arden Miguelutrophils/100 WBC (Bld)50.1 %Mcvrzr02.0-75.0The [facility] LimaComment on above:Performed By: #### CBC #### [facility] [address] [place] [address] Dr. Arden Salaslet mean volume (Bld) [Entitic vol]11.0 fLNormal9.5-13.5The [facility] LimaComment on above:Performed By: #### CBC #### [facility] [address] [place] [address] Dr. Arden MagallonPLT149 103/ulCritically khc213-000Gfl [facility]imaComment on above:Performed By: #### CBC #### [facility] [address] [place] [address] Dr. Arden MagallonRBC4.13 106/ulCritically low4.20-5.40The [facility] LimaComment on above:Performed By: #### CBC #### [facility] [address] [place] [address] Dr. Arden MagallonWBC7.5 103/ulNormal4.0-11.0The [facility] LimaComment on above: Performed By: #### CBC #### [facility] [address] [place] [address] Dr. Arden AdanDIMERon 57-49-0910O-DIMER0.32 mg/L FEUNormal<=0.59The [facility] on above:Performed By: #### PT, DDIM #### [facility] [address] [place] [address] Dr. Arden Crespo COMMENTSSEE [facility] on above:Result Comment: Increases in D-Dimer concentration observed with thromboembolic events [...] stress, and generalized hospitalization. Performed By: #### PT, DDIM #### [facility] [address] [place] [address] Dr. Arden MagallonPROAnshu 14(COMP METB)on [id number] [Mass/Vol]3.5 g/dLNormal 3.4-5.0The [facility] on above:Performed By: #### BNP, CMP #### [facility] [address] [place] [address] Dr. Arden MagallonAlbumin/Globulin [Mass ratio]1.2 {ratio}NormalThe [facility] on above:Performed By: #### BNP, CMP #### [facility] [address] [place] [address] Dr. Arden Amos [Catalytic activity/Vol]57 U/QGkczhf51-267Nwj [facility] on above:Performed By: #### BNP, CMP #### [facility] [address] [place] [address] Dr. Arden Wyman [Catalytic activity/Vol]16 U/LRqduur20-45Eaa [facility] on above:Performed By: #### BNP, CMP #### [facility] [address] [place] [address] Dr. Arden Lopez gap [Moles/Vol]9.1 mmol/LNormalThe [facility] LimaComment on above:Performed By: #### BNP, CMP #### [facility] [address] [place] [address] Dr. Arden MagallonAST [Catalytic activity/Vol]17 U/NVbjqrs11-48Rdp [facility] LimaComment on above:Performed By: #### BNP, CMP #### [facility] [address] [place] [address] Dr. Arden MagallonBilirubin [Mass/Vol]0.3 mg/dLNormal0.2-1.0The [facility] Comment on above:Performed By: #### BNP, CMP #### [facility] [address] [place] [address] Dr. Arden MagallonCalcium [Mass/Vol]9.6 mg/dLNormal8.5-10.1The [facility] Comment on above:Performed By: #### BNP, CMP #### [facility] [address] [place] [address] Dr. Arden MagallonChloride [Moles/Vol]106 mmol/WHzuirp29-163Wjc [facility] Comment on above:Performed By: #### BNP, CMP #### [facility] [address] [place] [address] Dr. Arden MagallonCO2 [Moles/Vol]24.9 mmol/MKosrea31.0-32.0The [facility] Comment on above:Performed By: #### BNP, CMP #### [facility] [address] [place] [address] Dr. Arden MagallonCreatinine [Mass/Vol]1.06 mg/dLCritically high0.55-1.02The [facility]imaComment on above:Performed By: #### BNP, CMP #### [facility] [address] [place] [address] Dr. Arden CarranzaGFR-AF TRINIDADIAN=60Normal>=60The [facility]imaComment on above:Performed By: #### BNP, CMP #### [facility] [address] [place] [address] Dr. Arden CarranzaGFR-NON AF HYCREXMG18 mL/min/1.21f1Kwnndcxmzi low>=60The [facility]imaComment on above:Performed By: #### BNP, CMP #### [facility] [address] [address] [address] Arden MagallonGlobulin (S) [Mass/Vol]3.0 g/dLNormalThCleveland Clinic Akron GeneralComment on above:Performed By: #### BNP, CMP #### [facility] [address] [address] [address] Arden MagallonGlucose [Mass/Vol]111 mg/dLCritically mjtj78-184Sli [facility] LimaComment on above:Performed By: #### BNP, CMP #### [facility] [address] [place] [address] Dr. Arden MagallonPotassium [Moles/Vol]4.0 mmol/LNormal3.5-5.1The [facility] Comment on above:Performed By: #### BNP, CMP #### [facility] [address] [place] [address] Dr. Arden MagallonProtein [Mass/Vol]6.5 g/dLNormal6.4-8.2The [facility] Comment on above:Performed By: #### BNP, CMP #### [facility] [address] [place] [address] Dr. Arden MagallonSodium [Moles/Vol]136 mmol/PPjvzoz636-808Tsb [facility] Comment on above:Performed By: #### BNP, CMP #### [facility] [address] [place] [address] Dr. Arden MagallonUrea nitrogen [Mass/Vol]16.0 mg/dLNormal7.0-18.0The [facility] LimaComment on above:Performed By: #### BNP, CMP #### [facility] [address] [place] [address] Dr. Arden MagallonUrea nitrogen/Creatinine [Mass ratio]15.1 mg/mgNormalThe [facility] LimaComment on above:Performed By: #### BNP, CMP #### [facility] [address] [place] [address] Dr. Arden Green, HIGH SENSITIVITYon 83-33-9682IDDTHP2.3 pg/mLNormal 4.0-51.3The [facility] LimaComment on above:Result Comment: CUT-OFF POINTS HAVE BEEN ESTABLISHED BASED ON THE FOURTH UNIVERSAL DEFINITIONS OF MYOCARDIAL INFARCTION. THE UPPER REFERENCE LIMIT (URL) OF TROPONIN, DEFINED THE 99TH PERCENTILE OF cTnI DISTRIBUTION IN A REFERENCE POPULATION, HAS BEEN CONFIRMED THE DECISION THRESHOLD FOR TN DIAGNOSIS.Performed By: #### BNP, CMP #### [facility] [address] [place] [address] Dr. Arden MagallonXR CHEST 1 Von [id number] CHEST 1 VEXAMINATION: XR CHEST 1 V, 09/18/2022 3:26 PM [...] Electronically authenticated by: BERNIE NAVARRO Date: 2022-09-18 16:[address] [place] [address] AUTO DIFFon [id number] #0.1 103/ulNormal0.0-0.1The [facility] LimaComment on above:Performed By: #### BMP #### [facility] [address] [place] [address] Dr. Arden MagallonBasophils/100 WBC (Bld)2.3 %Critically high0.2-2.0The [facility]imaComment on above:Performed By: #### BMP #### [facility] [address] [place] [address] Dr. Arden CarranzaO #0.5 103/ulNormal0.0-0.7The [facility] LimaComment on above: Performed By: #### BMP #### [facility] [address] [place] [address] Dr. Arden Carranzaosinophils/100 WBC (Bld)8.0 %Critically high0.9-7.0The [facility] LimaComment on above:Performed By: #### BMP #### [facility] [address] [place] [address] Dr. Arden Carranzarythrocyte distribution width (RBC) [Ratio]13.8 %Xtbnje64.0-15.0 The [facility] LimaComment on above:Performed By: #### BMP #### [facility] [address] [place] [address] Dr. Arden MagallonHematocrit (Bld) [Volume fraction]40.5 %Ugbkim76.0-48.0The [facility] LimaComment on above:Performed By: #### BMP #### [facility] [address] [place] [address] Dr. Arden MagallonHemoglobin (Bld) [Mass/Vol]13.5 g/lVQcmnqg03.0-16.0The [facility] LimaComment on above:Performed By: #### BMP #### [facility] [address] [place] [address] Dr. Arden Mathew #0.01 10e3/ulNormal0.00-0.03The [facility]imaComment on above:Performed By: #### BMP #### [facility] [address] [place] [address] Dr. Arden Mathew %0.2 %Normal0.0-0.5The [facility]imaComment on above: Performed By: #### BMP #### [facility] [address] [place] [address] Dr. Arden AlcantaraMPH #1.5 103/ulNormal1.2-3.8The [facility]imaComment on above:Performed By: #### BMP #### [facility] [address] [place] [address] Dr. Arden Alcantaramphocytes/100 WBC (Bld)24.9 %Ggupwm54.5-60.0The [facility]imaComment on above:Performed By: #### BMP #### [facility] [address] [place] [address] Dr. Arden Rodríguez DIFF REQNONormalThe [facility] LimaComment on above: Performed By: #### BMP #### [facility] [address] [place] [address] Dr. Arden Torres (RBC) [Entitic mass]31.1 eePpeyoe43.7-34.0The [facility] LimaComment on above:Performed By: #### BMP #### [facility] [address] [place] [address] Dr. Arden Torres (RBC) [Mass/Vol]33.3 g/pZTpgifq07.9-35.2The [facility]imaComment on above:Performed By: #### BMP #### [facility] [address] [place] [address] Dr. Arden Torres (RBC) [Entitic vol]93.3 yMLwyosj16.0-99.0The [facility]imaComment on above:Performed By: #### BMP #### [facility] [address] [place] [address] Dr. Arden Nelson #1.0 103/ulCritically high0.3-0.8The [facility] Comment on above:Performed By: #### BMP #### [facility] [address] [place] [address] Dr. Arden Perrinocytes/100 WBC (Bld)16.0 %Critically high1.7-12.0The [facility]imaComment on above:Performed By: #### BMP #### [facility] [address] [place] [address] Dr. Arden Patterson #2.9 103/ulNormal1.4-6.5The [facility]imaComment on above:Performed By: #### BMP #### [facility] [address] [address] [address] Arden MagallonNeutrophils/100 WBC (Bld)48.6 %Xflfnd96.0-75.0The [facility] LimaComment on above:Performed By: #### BMP #### [facility] [address] [place] [address] Dr. Arden MagallonPlatelet mean volume (Bld) [Entitic vol]10.8 fLNormal9.5-13.5The [facility]imaComment on above:Performed By: #### BMP #### [facility] [address] [place] [address] Dr. Arden MagallonPLT138 103/ulCritically wmp198-451Xnu [facility]imaComment on above:Performed By: #### BMP #### [facility] [address] [place] [address] Dr. Arden MagallonRBC4.34 106/ulNormal4.20-5.40The [facility]imaComment on above:Performed By: #### BMP #### [facility] [address] [place] [address] Dr. Arden MagallonWBC6.0 103/ulNormal4.0-11.0The [facility]imaComment on above: Performed By: #### BMP #### [facility] [address] [place] [address] Dr. Arden MagallonPROF CHEM 8 (BAS METB)on [id number] gap [Moles/Vol]9.0 mmol/LNormalThe [facility] LimaComment on above:Performed By: #### PT, DDIM #### [facility] [address] [place] [address] Dr. Arden MagallonCalcium [Mass/Vol]9.6 mg/dLNormal8.5-10.1The [facility] Comment on above:Performed By: #### PT, DDIM #### [facility] [address] [place] [address] Dr. Arden MagallonChloride [Moles/Vol]105 mmol/TUstsym66-578Pxw [facility] Comment on above:Performed By: #### PT, DDIM #### [facility] [address] [address] [address] Arden MagallonCO2 [Moles/Vol]29.1 mmol/ULdggsv49.0-32.0The [facility] Comment on above:Performed By: #### PT, DDIM #### [facility] [address] [address] [address] Arden MagallonCreatinine [Mass/Vol]1.00 mg/dLNormal0.55-1.02[facility] HospitalComment on above:Performed By: #### PT, DDIM #### [facility] [address] [address] [address] Arden CarranzaGFR-AF TRINIDADIAN>60Normal>=60The [facility]imaComment on above:Performed By: #### PT, DDIM #### [facility] [address] [place] [address] Dr. Arden CarranzaGFR-NON AF NEVLMYRI89 mL/min/1.37k0Eiuvidyval low>=60The [facility]imaComment on above:Performed By: #### PT, DDIM #### [facility] [address] [address] [address] Arden MagallonGlucose [Mass/Vol]116 mg/dLCritically clqp11-950Olc [facility]imaComment on above:Performed By: #### PT, DDIM #### [facility] [address] [address] [address] Arden MagallonPotassium [Moles/Vol]4.1 mmol/LNormal3.5-5.1The [facility] Comment on above:Performed By: #### PT, DDIM #### [facility] [address] [address] [address] Arden MagallonSodium [Moles/Vol]139 mmol/SIlture526-435Jln [facility] Comment on above:Performed By: #### PT, DDIM #### [facility] [address] [address] [address] Arden MagallonUrea nitrogen [Mass/Vol]15.0 mg/dLNormal7.0-18.0The [facility]imaComment on above:Performed By: #### PT, DDIM #### [facility] [address] [place] [address] Dr. Arden MagallonUrea nitrogen/Creatinine [Mass ratio]15.0 mg/mgNormalThe [facility] LimaComment on above:Performed By: #### PT, DDIM #### [facility] [address] [place] [address] Dr. Arden KevinC AUTO DIFFon [id number] #0.2 103/ulCritically high0.0-0.1 [facility] HospitalComment on above:Performed By: #### BNP, CMP #### [facility] [address] [place] [address] Dr. Arden MagallonBasophils/100 WBC (Bld)2.7 %Critically high0.2-2.0The [facility]imaComment on above:Performed By: #### BNP, CMP #### [facility] [address] [place] [address] Dr. Arden Valdes #0.5 103/ulNormal0.0-0.7The [facility]imaComment on above: Performed By: #### BNP, CMP #### [facility] [address] [place] [address] Dr. Arden Carranzaosinophils/100 WBC (Bld)6.7 %Normal0.9-7.0[facility] Comment on above:Performed By: #### BNP, CMP #### [facility] [address] [place] [address] Dr. Arden Carranzarythrocyte distribution width (RBC) [Ratio]14.3 %Ilhwys63.0-15.0 [facility] HospitalComment on above:Performed By: #### BNP, CMP #### [facility] [address] [place] [address] Dr. Arden MagallonHematocrit (Bld) [Volume fraction]43.1 %Ajdwxc89.0-48.0The [facility]imaComment on above:Performed By: #### BNP, CMP #### [facility] [address] [place] [address] Dr. Arden MagallonHemoglobin (Bld) [Mass/Vol]14.5 g/oFDwriyt38.0-16.0The [facility]imaComment on above:Performed By: #### BNP, CMP #### [facility] [address] [place] [address] Dr. Arden Mathew #0.02 10e3/ulNormal0.00-0.03The [facility]imaComment on above:Performed By: #### BNP, CMP #### [facility] [address] [place] [address] Dr. Arden Mathew %0.3 %Normal0.0-0.5The [facility]imaComment on above: Performed By: #### BNP, CMP #### [facility] [address] [place] [address] Dr. Arden Alvarado #3.1 103/ulNormal1.2-3.8The [facility]imaComment on above:Performed By: #### BNP, CMP #### [facility] [address] [place] [address] Dr. Arden Vitalehocytes/100 WBC (Bld)41.0 %Cunior60.5-60.0The [facility] on above:Performed By: #### BNP, CMP #### [facility] [address] [place] [address] Dr. Arden FerroUAL DIFF REQNONormalThe [facility] LimaComment on above: Performed By: #### BNP, CMP #### [facility] [address] [place] [address] Dr. Arden Eaton (RBC) [Entitic mass]31.6 caAsyyhb62.7-34.0The [facility]imaComment on above:Performed By: #### BNP, CMP #### [facility] [address] [place] [address] Dr. Arden Torres (RBC) [Mass/Vol]33.6 g/vQBubfrv83.9-35.2The [facility]imaComment on above:Performed By: #### BNP, CMP #### [facility] [address] [place] [address] Dr. Arden Leonard (RBC) [Entitic vol]93.9 yGQjrsnh15.0-99.0The [facility]imaComment on above:Performed By: #### BNP, CMP #### [facility] [address] [place] [address] Dr. Arden Nelson #0.8 103/ulNormal0.3-0.8The [facility]ima[facility] on above:Performed By: #### BNP, CMP #### [facility] [address] [place] [address] Dr. Arden Perrinocytes/100 WBC (Bld)10.9 %Normal1.7-12.0The [facility] Comment on above:Performed By: #### BNP, CMP #### [facility] [address] [place] [address] Dr. Arden Patterson #2.9 103/ulNormal1.4-6.5The [facility]imaComment on above:Performed By: #### BNP, CMP #### [facility] [address] [place] [address] Dr. Arden Martinsophils/100 WBC (Bld)38.4 %Critically low43.0-75.0The [facility]imaComment on above:Performed By: #### BNP, CMP #### [facility] [address] [place] [address] Dr. Arden Salaslet mean volume (Bld) [Entitic vol]10.8 fLNormal9.5-13.5The [facility]imaComment on above:Performed By: #### BNP, CMP #### [facility] [address] [place] [address] Dr. Arden AyersT165 103/goDwrkrv428-678Frd [facility]imaComment on above: Performed By: #### BNP, CMP #### [facility] [address] [place] [address] Dr. Arden MagallonRBC4.59 106/ulNormal4.20-5.40The [facility] on above:Performed By: #### BNP, CMP #### [facility] [address] [place] [address] Dr. Arden MagallonWBC7.5 103/ulNormal4.0-11.0The [facility] on above: Performed By: #### BNP, CMP #### [facility] [address] [place] [address] Dr. Arden MagallonPROF 14(COMP METB)on 60-53-9545Fupnkdd [Mass/Vol]3.9 g/dLNormal 3.4-5.0The [facility] on above:Performed By: #### PT, DDIM #### [facility] [address] [place] [address] Dr. Arden MagallonAlbumin/Globulin [Mass ratio]1.2 {ratio}NormalThe [facility]Com[facility] on above:Performed By: #### PT, DDIM #### [facility] [address] [place] [address] Dr. Arden Amos [Catalytic activity/Vol]69 U/KDxxhmf73-910Lpl [facility] on above:Performed By: #### PT, DDIM #### [facility] [address] [place] [address] Dr. Arden Wyman [Catalytic activity/Vol]16 U/AJrdlow33-66Qaf [facility] on above:Performed By: #### PT, DDIM #### [facility] [address] [place] [address] Dr. Arden Lopez gap [Moles/Vol]8.6 mmol/LNormalThe [facility]Com[facility] on above:Performed By: #### PT, DDIM #### [facility] [address] [place] [address] Dr. Arden Cabrera [Catalytic activity/Vol]14 U/LCritically joa09-28Shq [facility] on above:Performed By: #### PT, DDIM #### [facility] [address] [address] [address] Arden MagallonBilirubin [Mass/Vol]0.3 mg/dLNormal0.2-1.0The [facility] Comment on above:Performed By: #### PT, DDIM #### [facility] [address] [address] [address] Arden MagallonCalcium [Mass/Vol]9.5 mg/dLNormal8.5-10.1The [facility] Comment on above:Performed By: #### PT, DDIM #### [facility] [address] [address] [address] Arden MagallonChloride [Moles/Vol]104 mmol/YXjmhwb54-145Bxs [facility] Comment on above:Performed By: #### PT, DDIM #### [facility] [address] [place] [address] Dr. Arden MagallonCO2 [Moles/Vol]29.2 mmol/IHjqamc94.0-32.0The [facility] Comment on above:Performed By: #### PT, DDIM #### [facility] [address] [address] [address] Arden MagallonCreatinine [Mass/Vol]1.25 mg/dLCritically high0.55-1.02The [facility]imaComment on above:Performed By: #### PT, DDIM #### [facility] [address] [address] [address] Arden CarranzaGFR-AF HYSXRTLG72 mL/min/1.20p4Fooxlihlqt low>=60The [facility]imaComment on above:Performed By: #### PT, DDIM #### [facility] [address] [address] [address] Arden CarranzaGFR-NON AF OWCZSHJL41 mL/min/1.47g7Awkjejixhu low>=60The [facility]imaComment on above:Performed By: #### PT, DDIM #### [facility] [address] [address] [address] Arden MagallonGlobulin (S) [Mass/Vol]3.3 g/dLNoBethesda North HospitalComment on above:Performed By: #### PT, DDIM #### [facility] [address] [place] [address] Dr. Arden MagallonGlucose [Mass/Vol]119 mg/dLCritically lrgc23-014Cve [facility]imaComment on above:Performed By: #### PT, DDIM #### [facility] [address] [place] [address] Dr. Arden MagallonPotassium [Moles/Vol]3.8 mmol/LNormal3.5-5.1The [facility] Comment on above:Performed By: #### PT, DDIM #### [facility] [address] [place] [address] Dr. Arden MagallonProtein [Mass/Vol]7.2 g/dLNormal6.4-8.2The [facility] Comment on above:Performed By: #### PT, DDIM #### [facility] [address] [place] [address] Dr. Arden MagallonSodium [Moles/Vol]138 mmol/VRmulnx587-660Xyr [facility] Comment on above:Performed By: #### PT, DDIM #### [facility] [address] [place] [address] Dr. Arden MagallonUrea nitrogen [Mass/Vol]24.0 mg/dLCritically high7.0-18.0The [facility]imaComment on above:Performed By: #### PT, DDIM #### [facility] [address] [place] [address] Dr. Arden Jones nitrogen/Creatinine [Mass ratio]19.2 mg/mgNoBethesda North HospitalComment on above:Performed By: #### PT, DDIM #### [facility] [address] [place] [address] Dr. Arden Gomez 65-09-8510Gadtgckkves peptide B (Bld) [Mass/Vol]427.0 pg/mL Normal<=1,800.0The [facility] LimaComment on above:Performed By: #### PT, DDIM #### [facility] [address] [address] [address] Arden Caraballo CINDY ADMITon 66-36-3158FZ [Catalytic activity/Vol]56 U/L Tnsokl43-501FuaBrecksville VA / Crille Hospitalment on above:Performed By: #### PT, DDIM #### [facility] [address] [address] [address] Arden Childs.MB [Mass/Vol]1.41 ng/mLNormal<=3.60The [facility] Comment on above:Performed By: #### PT, DDIM #### [facility] [address] [place] [address] Dr. Arden MagallonHSTROP9.0 pg/mLNormal4.0-51.3The [facility] on above:Result Comment: CUT-OFF POINTS HAVE BEEN ESTABLISHED BASED ON THE FOURTH UNIVERSAL DEFINITIONS OF MYOCARDIAL INFARCTION. THE UPPER REFERENCE LIMIT (URL) OF TROPONIN, DEFINED THE 99TH PERCENTILE OF cTnI DISTRIBUTION IN A REFERENCE POPULATION, HAS BEEN CONFIRMED THE DECISION THRESHOLD FOR TN DIAGNOSIS.Performed By: #### PT, DDIM #### [facility] [address] [place] [address] Dr. Arden Chua99 ng/mLCritically high9-82The [facility] on above:Performed By: #### PT, DDIM #### [facility] [address] [place] [address] Dr. Arden Marie AUTO DIFFon [id number] #0.2 103/ulCritically high0.0-0.1 The [facility] LimaComment on above:Performed By: #### CBC #### [facility] [address] [place] [address] Dr. Arden MagallonBasophils/100 WBC (Bld)2.2 %Critically high0.2-2.0The [facility] on above:Performed By: #### CBC #### [facility] [address] [place] [address] Dr. Arden Valdes #0.4 103/ulNormal0.0-0.7The [facility] HospitalComment on above: Performed By: #### CBC #### [facility] [address] [place] [address] Dr. Arden Carranzaosinophils/100 WBC (Bld)5.1 %Normal0.9-7.0The [facility] on above:Performed By: #### CBC #### [facility] [address] [place] [address] Dr. Arden Carranzarythrocyte distribution width (RBC) [Ratio]14.1 %Bxpoiu70.0-15.0 The [facility]imaComment on above:Performed By: #### CBC #### [facility] [address] [place] [address] Dr. Arden MagallonHematocrit (Bld) [Volume fraction]41.2 %Ljjflp81.0-48.0The [facility] LimaComment on above:Performed By: #### CBC #### [facility] [address] [place] [address] Dr. Arden MagallonHemoglobin (Bld) [Mass/Vol]13.6 g/wFGnzdzw23.0-16.0The [facility] LimaComment on above:Performed By: #### CBC #### [facility] [address] [place] [address] Dr. Arden Mathew #0.03 10e3/ulNormal0.00-0.03The [facility] LimaComment on above:Performed By: #### CBC #### [facility] [address] [place] [address] Dr. Arden Mathew %0.4 %Normal0.0-0.5The [facility] LimaComment on above: Performed By: #### CBC #### [facility] [address] [place] [address] Dr. Arden VitaleH #2.4 103/ulNormal1.2-3.8The [facility] LimaComment on above:Performed By: #### CBC #### [facility] [address] [place] [address] Dr. Arden Alcantaramphocytes/100 WBC (Bld)30.1 %Miifqc61.5-60.0The [facility] LimaComment on above:Performed By: #### CBC #### [facility] [address] [place] [address] Dr. Arden Rodríguez DIFF REQNONormalThe [facility] LimaComment on above: Performed By: #### CBC #### [facility] [address] [place] [address] Dr. Arden Torres (RBC) [Entitic mass]30.8 hdRvdrcr17.7-34.0The [facility] HospitalComment on above:Performed By: #### CBC #### [facility] [address] [place] [address] Dr. Arden Torres (RBC) [Mass/Vol]33.0 g/dUZoopwt90.9-35.2The [facility] LimaComment on above:Performed By: #### CBC #### [facility] [address] [place] [address] Dr. Arden Leonard (RBC) [Entitic vol]93.4 zZNgmwgx46.0-99.0The [facility] LimaComment on above:Performed By: #### CBC #### [facility] [address] [place] [address] Dr. Arden Nelson #0.8 103/ulNormal0.3-0.8The [facility] LimaComment on above:Performed By: #### CBC #### [facility] [address] [place] [address] Dr. Arden Perrinocytes/100 WBC (Bld)9.8 %Normal1.7-12.0The [facility] Comment on above:Performed By: #### CBC #### [facility] [address] [place] [address] Dr. Arden Patterson #4.2 103/ulNormal1.4-6.5The [facility] LimaComment on above:Performed By: #### CBC #### [facility] [address] [place] [address] Dr. Yilan ChangNeutrophils/100 WBC (Bld)52.4 %Xphjpd53.0-75.0The [facility]imaComment on above:Performed By: #### CBC #### [facility] [address] [place] [address] Dr. Arden Villafana mean volume (Bld) [Entitic vol]10.7 fLNormal9.5-13.5The [facility] LimaComment on above:Performed By: #### CBC #### [facility] [address] [place] [address] Dr. Arden MagallonPLT154 103/dqFlppkf485-070Kzo [facility] on above: Performed By: #### CBC #### [facility] [address] [place] [address] Dr. Arden MagallonRBC4.41 106/ulNormal4.20-5.40The [facility] on above:Performed By: #### CBC #### [facility] [address] [place] [address] Dr. Arden MagallonWBC8.1 103/ulNormal4.0-11.0The [facility] on above: Performed By: #### CBC #### [facility] [address] [place] [address] Dr. Arden Madsen 14(COMP METB)on 14-97-2089Czixwyi [Mass/Vol]3.7 g/dLNormal 3.4-5.0The [facility] LimaComment on above:Performed By: #### PT, DDIM #### [facility] [address] [place] [address] Dr. Arden MagallonAlbumin/Globulin [Mass ratio]1.2 {ratio}NormalThe [facility] on above:Performed By: #### PT, DDIM #### [facility] [address] [place] [address] Dr. Arden PughP [Catalytic activity/Vol]57 U/EFbjgzg42-439Ojm [facility] on above:Performed By: #### PT, DDIM #### [facility] [address] [address] [address] Arden PughT [Catalytic activity/Vol]17 U/ODjqzwh93-18Nrp [facility] LimaComment on above:Performed By: #### PT, DDIM #### [facility] [address] [place] [address] Dr. Arden MagallnoAnion gap [Moles/Vol]9.1 mmol/LNormalThe [facility] LimaComment on above:Performed By: #### PT, DDIM #### [facility] [address] [place] [address] Dr. Arden MagallonAST [Catalytic activity/Vol]12 U/LCritically vmq09-57Aal [facility] LimaComment on above:Performed By: #### PT, DDIM #### [facility] [address] [place] [address] Dr. Arden MagallonBilirubin [Mass/Vol]0.6 mg/dLNormal0.2-1.0The [facility] Comment on above:Performed By: #### PT, DDIM #### [facility] [address] [place] [address] Dr. Arden MagallonCalcium [Mass/Vol]9.5 mg/dLNormal8.5-10.1The [facility] Comment on above:Performed By: #### PT, DDIM #### [facility] [address] [place] [address] Dr. Arden MagallonChloride [Moles/Vol]105 mmol/HEwtcmw54-977Hfm [facility] Comment on above:Performed By: #### PT, DDIM #### [facility] [address] [place] [address] Dr. Arden MagallonCO2 [Moles/Vol]27.9 mmol/WRzbbyb46.0-32.0The [facility] Comment on above:Performed By: #### PT, DDIM #### [facility] [address] [place] [address] Dr. Arden MagallonCreatinine [Mass/Vol]0.97 mg/dLNormal0.55-1.02The [facility] LimaComment on above:Performed By: #### PT, DDIM #### [facility] [address] [address] [address] Arden CarranzaGFR-AF TRINIDADIAN>60Normal>=60The [facility] LimaComment on above:Performed By: #### PT, DDIM #### [facility] [address] [address] [address] Arden CarranzaGFR-NON AF WTVMVVLN26 mL/min/1.93i8Qcyvvqgnym low>=60The [facility] LimaComment on above:Performed By: #### PT, DDIM #### [facility] [address] [address] [address] Arden MagallonGlobulin (S) [Mass/Vol]3.0 g/dLNormalThe [facility] LimaComment on above:Performed By: #### PT, DDIM #### [facility] [address] [address] [address] Arden MagallonGlucose [Mass/Vol]105 mg/mYNpuyxn20-439Nvy [facility] Comment on above:Performed By: #### PT, DDIM #### [facility] [address] [address] [address] Arden MagallonPotassium [Moles/Vol]4.0 mmol/LNormal3.5-5.1The [facility] Comment on above:Performed By: #### PT, DDIM #### [facility] [address] [address] [address] Arden MagallonProtein [Mass/Vol]6.7 g/dLNormal6.4-8.2The [facility] Comment on above:Performed By: #### PT, DDIM #### [facility] [address] [address] [address] Arden MagallonSodium [Moles/Vol]138 mmol/UCvknnw681-735Dgo [facility] Comment on above:Performed By: #### PT, DDIM #### [facility] [address] [address] [address] Arden MagallonUrea nitrogen [Mass/Vol]18.0 mg/dLNormal7.0-18.0The [facility]ulio HospitalComment on above:Performed By: #### PT, DDIM #### [facility] [address] [address] [address] Arden Jones nitrogen/Creatinine [Mass ratio]18.6 mg/mgNoBethesda North HospitalCombeaumont hospital on above:Performed By: #### PT, DDIM #### [facility] [address] [place] [address] Dr. Arden MagallonPROTIMEon 48-27-1775SXV Coag (PPP) [Relative time]1.49 {INR} NormalThe [facility] on above:Performed By: #### BNP, CMP #### [facility] [address] [place] [address] Dr. Arden Cortez GUIDELINESSEE [facility] on above:Result Comment: DESIRED INR: 2.0 - 3.0 CONDITIONS NOT LISTED BELOW 2.5 - 3.5 FOR PROSTHETIC HEART VALVE REPLACEMENT 2.5 - 3.5 RECURRENT THROMBOSIS Performed By: #### BNP, CMP #### [facility] [address] [place] [address] Dr. rAden MagallonPT Coag (PPP) [Time]15.7 sCritically high9.0-11.6The [facility] on above:Performed By: #### BNP, CMP #### [facility] [address] [place] [address] Dr. Arden May 19-17-0798tBYW Coag (Bld) [Time]30.2 zFongck83.3-36.2[facility] on above:Performed By: #### BNP, CMP #### [facility] [address] [place] [address] Dr. Arden Green, HIGH SENSITIVITYon 24-78-9534DKOUJP7.3 pg/mLNormal 4.0-51.3The [facility] on above:Result Comment: CUT-OFF POINTS HAVE BEEN ESTABLISHED BASED ON THE FOURTH UNIVERSAL DEFINITIONS OF MYOCARDIAL INFARCTION. THE UPPER REFERENCE LIMIT (URL) OF TROPONIN, DEFINED THE 99TH PERCENTILE OF cTnI DISTRIBUTION IN A REFERENCE POPULATION, HAS BEEN CONFIRMED THE DECISION THRESHOLD FOR TN DIAGNOSIS.Performed By: #### BMP #### [facility] [address] [place] [address] Dr. Arden MagallonXR CHEST 1 Von [id number] CHEST 1 VEXAM: XR CHEST 1 V at 1147 hours [...] Electronically authenticated by: MOMO RICO Date: 2022-08-26 12:29[facility] [id number] peptide B (Bld) [Mass/Vol]414.0 pg/mLNormal<=1,800.0The [facility] LimaComment on above:Performed By: #### BMP #### [facility] [address] [place] [address] Dr. Arden KevinC AUTO DIFFon 80-43-1846PTNY #0.2 103/ulCritically high0.0-0.1 The [facility]imaComment on above:Performed By: #### BMP #### [facility] [address] [place] [address] Dr. Arden MagallonBasophils/100 WBC (Bld)2.8 %Critically high0.2-2.0The [facility]imaComment on above:Performed By: #### BMP #### [facility] [address] [place] [address] Dr. Arden Valdes #0.5 103/ulNormal0.0-0.7The [facility]imaComment on above: Performed By: #### BMP #### [facility] [address] [place] [address] Dr. Arden Carranzaosinophils/100 WBC (Bld)7.2 %Critically high0.9-7.0The [facility] on above:Performed By: #### BMP #### [facility] [address] [place] [address] Dr. Arden Carranzarythrocyte distribution width (RBC) [Ratio]14.1 %Ajsiwq16.0-15.0 The [facility]imaComment on above:Performed By: #### BMP #### [facility] [address] [place] [address] Dr. Arden MagallonHematocrit (Bld) [Volume fraction]41.2 %Kygyyr13.0-48.0The [facility] on above:Performed By: #### BMP #### [facility] [address] [place] [address] Dr. Arden MagallonHemoglobin (Bld) [Mass/Vol]13.5 g/kCPigybn89.0-16.0The [facility] on above:Performed By: #### BMP #### [facility] [address] [place] [address] Dr. Arden MagallonIG #0.01 10e3/ulNormal0.00-0.03The [facility] on above:Performed By: #### BMP #### [facility] [address] [place] [address] Dr. Arden MagallonIG %0.1 %Normal0.0-0.5The [facility] on above: Performed By: #### BMP #### [facility] [address] [place] [address] Dr. Arden AlcantaraMPH #2.7 103/ulNormal1.2-3.8The [facility] on above:Performed By: #### BMP #### [facility] [address] [place] [address] Dr. Arden Alcantaramphocytes/100 WBC (Bld)37.7 %Vurxzl11.5-60.0The [facility]imaComment on above:Performed By: #### BMP #### [facility] [address] [place] [address] Dr. Arden Rodríguez DIFF REQNONormalThe [facility]imaComment on above: Performed By: #### BMP #### [facility] [address] [place] [address] Dr. Arden Torres (RBC) [Entitic mass]31.2 eoUpoxet11.7-34.0The [facility]ima[facility] on above:Performed By: #### BMP #### [facility] [address] [place] [address] Dr. Arden Torres (RBC) [Mass/Vol]32.8 g/nBThhwct99.9-35.2The [facility]imaComment on above:Performed By: #### BMP #### [facility] [address] [place] [address] Dr. Arden Torres (RBC) [Entitic vol]95.2 tCEoaiyb30.0-99.0The [facility]imaComment on above:Performed By: #### BMP #### [facility] [address] [place] [address] Dr. Arden Nelson #0.6 103/ulNormal0.3-0.8The [facility]ima[facility] on above:Performed By: #### BMP #### [facility] [address] [place] [address] Dr. Arden Perrinocytes/100 WBC (Bld)8.2 %Normal1.7-12.0The [facility] on above:Performed By: #### BMP #### [facility] [address] [place] [address] Dr. Arden Patterson #3.1 103/ulNormal1.4-6.5The [facility]imaComment on above:Performed By: #### BMP #### [facility] [address] [place] [address] Dr. Arden Miguelutrophils/100 WBC (Bld)44.0 %Ymqrez97.0-75.0The [facility] HospitalComment on above:Performed By: #### BMP #### [facility] [address] [place] [address] Dr. Arden Salaslet mean volume (Bld) [Entitic vol]11.5 fLNormal9.5-13.5The [facility] on above:Performed By: #### BMP #### [facility] [address] [place] [address] Dr. Arden MagallonPLT160 103/wjAwvzbu533-912Hny [facility] on above: Performed By: #### BMP #### [facility] [address] [place] [address] Dr. Arden MagallonRBC4.33 106/ulNormal4.20-5.40The [facility] on above:Performed By: #### BMP #### [facility] [address] [place] [address] Dr. Arden MagallonWBC7.1 103/ulNormal4.0-11.0The [facility] on above: Performed By: #### BMP #### [facility] [address] [place] [address] Dr. Arden Crespoon 40-97-2386G-DIMER0.36 mg/L FEUNormal<=0.59[facility] on above:Performed By: #### PT, DDIM #### [facility] [address] [place] [address] Dr. Arden Crespo COMMENTSSEE [facility] on above:Result Comment: Increases in D-Dimer concentration observed with thromboembolic events [...] stress, and generalized hospitalization. Performed By: #### PT, DDIM #### [facility] [address] [address] [address] Arden MagallonPROF 14(COMP METB)on 32-75-2767Dwahbhu [Mass/Vol]3.7 g/dLNormal 3.4-5.0The [facility]imaComment on above:Performed By: #### CBC #### [facility] [address] [place] [address] Dr. Arden MagallonAlbumin/Globulin [Mass ratio]1.1 {ratio}NormalThe [facility]imaComment on above:Performed By: #### CBC #### [facility] [address] [place] [address] Dr. Arden PughP [Catalytic activity/Vol]65 U/PTjlioa51-594Ugn [facility]imaComment on above:Performed By: #### CBC #### [facility] [address] [place] [address] Dr. Arden PughT [Catalytic activity/Vol]15 U/HCqvsvd45-82Jaz [facility]imaComment on above:Performed By: #### CBC #### [facility] [address] [place] [address] Dr. Arden Lopez gap [Moles/Vol]6.1 mmol/LNormalThe [facility]imaComment on above:Performed By: #### CBC #### [facility] [address] [place] [address] Dr. Arden MagallonAST [Catalytic activity/Vol]11 U/LCritically lkj15-65Xsw [facility]imaComment on above:Performed By: #### CBC #### [facility] [address] [place] [address] Dr. Arden MagallonBilirubin [Mass/Vol]0.4 mg/dLNormal0.2-1.0The [facility] Comment on above:Performed By: #### CBC #### [facility] [address] [place] [address] Dr. Arden MagallonCalcium [Mass/Vol]9.6 mg/dLNormal8.5-10.1The [facility] Comment on above:Performed By: #### CBC #### [facility] [address] [address] [address] Arden MagallonChloride [Moles/Vol]106 mmol/MExgszz32-929Qra [facility] on above:Performed By: #### CBC #### [facility] [address] [address] [address] Arden MagallonCO2 [Moles/Vol]29.5 mmol/JHcktal03.0-32.0The [facility] on above:Performed By: #### CBC #### [facility] [address] [address] [address] Arden MagallonCreatinine [Mass/Vol]1.02 mg/dLNormal0.55-1.02The [facility]imaComment on above:Performed By: #### CBC #### [facility] [address] [place] [address] Dr. Her ChangEGFR-AF TRINIDADIAN>60Normal>=60The [facility]imaComment on above:Performed By: #### CBC #### [facility] [address] [address] [address] Arden CarranzaGFR-NON AF OFMOVNQN30 mL/min/1.89c0Xyqzursrpa low>=60The [facility]imaComment on above:Performed By: #### CBC #### [facility] [address] [address] [address] Arden MagallonGlobulin (S) [Mass/Vol]3.3 g/dLNormalThe [facility]imaComment on above:Performed By: #### CBC #### [facility] [address] [address] [address] Arden MagallonGlucose [Mass/Vol]143 mg/dLCritically ptsg96-889Ynx [facility]imaComment on above:Performed By: #### CBC #### [facility] [address] [address] [address] Arden MagallonPotassium [Moles/Vol]3.6 mmol/LNormal3.5-5.1The [facility] on above:Performed By: #### CBC #### [facility] [address] [address] [address] Arden MagallonProtein [Mass/Vol]7.0 g/dLNormal6.4-8.2The [facility] Comment on above:Performed By: #### CBC #### [facility] [address] [place] [address] Dr. Arden MagallonSodium [Moles/Vol]138 mmol/BZdqkit759-361Adq [facility] on above:Performed By: #### CBC #### [facility] [address] [address] [address] Arden Jones nitrogen [Mass/Vol]21.0 mg/dLCritically high7.0-18.0The [facility]imaComment on above:Performed By: #### CBC #### [facility] [address] [place] [address] Dr. Arden Jones nitrogen/Creatinine [Mass ratio]20.6 mg/mgNormMercy Health Clermont Hospitale [facility]imaComment on above:Performed By: #### CBC #### [facility] [address] [place] [address] Dr. Arden MagallonPROTIMEon 23-22-2636XKI Coag (PPP) [Relative time]1.27 {INR} NormalThe [facility]imaComment on above:Performed By: #### PT, DDIM #### [facility] [address] [place] [address] Dr. Arden Cortez GUIDELINESSEE BELOWNorwalk Memorial HospitalComment on above:Result Comment: DESIRED INR: 2.0 - 3.0 CONDITIONS NOT LISTED BELOW 2.5 - 3.5 FOR PROSTHETIC HEART VALVE REPLACEMENT 2.5 - 3.5 RECURRENT THROMBOSIS Performed By: #### PT, DDIM #### [facility] [address] [place] [address] Dr. Arden MagallonPT Coag (PPP) [Time]13.5 sCritically high9.0-11.6The [facility]imaComment on above:Performed By: #### PT, DDIM #### [facility] [address] [place] [address] Dr. Arden Green, [facility] SENSITIVITYon 19-16-1021MNTUAN8.3 pg/mLNormal 4.0-51.3The [facility] on above:Result Comment: CUT-OFF POINTS HAVE BEEN ESTABLISHED BASED ON THE FOURTH UNIVERSAL DEFINITIONS OF MYOCARDIAL INFARCTION. THE UPPER REFERENCE LIMIT (URL) OF TROPONIN, DEFINED THE 99TH PERCENTILE OF cTnI DISTRIBUTION IN A REFERENCE POPULATION, HAS BEEN CONFIRMED THE DECISION THRESHOLD FOR TN DIAGNOSIS.Performed By: #### BMP #### [facility] [address] [address] [address] Arden MagallonXR CHEST 1 Von [id number] CHEST 1 VEXAMINATION: XR CHEST 1 V HISTORY: CHEST PAIN, [...] compared to 04/15/2022; chronic scarring versus recurrent infiltrate/atelectasis. Electronically authenticated by: HARJINDER RAMIREZ Date: 2022-08-17 13:57[facility] URINE PROFILEon 50-65-0054Mvcmfylpe Ql (U)NegativeNormal NEGATIVEBellevue HospitalComment on above:Performed By: #### PT, DDIM #### [facility] [address] [address] [address] Arden Miles (U)CLEARNormalCLEARThe [facility]imaComment on above: Performed By: #### PT, DDIM #### [facility] [address] [address] [address] Arden Gutierrez (U)LT. YELLOWNormalYELLOWBellevue HospitalComment on above:Performed By: #### PT, DDIM #### [facility] [address] [address] [address] Yilan ChangERUAHDA micrscopic examination will be performed if indicated. NormalThe [facility] LimaComment on above:Performed By: #### PT, DDIM #### [facility] [address] [place] [address] Dr. Arden MagallonGlucose Ql (U)NegativeNormalNEGATIVEBellevue HospitalComment on above:Performed By: #### PT, DDIM #### [facility] [address] [address] [address] Arden MagallonHemoglobin Ql (U)SMALLAbnormalNEGATIVEBellevue Hospital Comment on above:Performed By: #### PT, DDIM #### [facility] [address] [place] [address] Dr. Arden MagallonKetones Ql (U)NegativeNormalNEGATIVEBellevue HospitalComment on above:Performed By: #### PT, DDIM #### [facility] [address] [place] [address] Dr. Arden MagallonLEUKOCYTESTRACEAbnormalNEGATIVEBellevue HospitalComment on above:Performed By: #### PT, DDIM #### [facility] [address] [place] [address] Dr. Arden MagallonNitrite Ql (U)NegativeNormalNEGATIVEBellevue HospitalComment on above:Performed By: #### PT, DDIM #### [facility] [address] [place] [address] Dr. Arden MagallonpH (U)7.0 [pH]Normal5-9B[facility]vue HospitalComment on above: Performed By: #### PT, DDIM #### [facility] [address] [place] [address] Dr. Arden MagallonSPEC GRAVITY1.701Dwwfoo3.005-<=1.025Bellevue HospitalComment on above:Performed By: #### PT, DDIM #### [facility] [address] [address] [address] Arden MagallonUA PROTEINNegativeNormalNEGATIVE/ TRACEBellevue Hospital Comment on above:Performed By: #### PT, DDIM #### [facility] [address] [address] [address] Arden AYALA INDINDICATEDNorwalk Memorial HospitalComment on above: Performed By: #### PT, DDIM #### [facility] [address] [address] [address] Arden Medina Qn (U)0.2 {Myranda'U}/dLNormal0.2 - 1.0The [facility] LimaComment on above:Performed By: #### PT, DDIM #### [facility] [address] [address] [address] Arden Baez MICROSCOPIC ONLYon 37-63-0223TLOUAYRWIPXL SEENNormalNONE SEENBellevue HospitalCombeaumont hospital on above:Performed By: #### PT, DDIM #### [facility] [address] [place] [address] Dr. Arden Griffin identified Cx Nom (U)NOT INDICATEDNoBethesda North HospitalCombeaumont hospital on above:Performed By: #### PT, DDIM #### [facility] [address] [place] [address] Dr. Arden Burton SEENNormalNONE SEENBellevue HospitalCombeaumont hospital on above:Performed By: #### PT, DDIM #### [facility] [address] [address] [address] Arden Gonzalez LM Nom (Urine sed)NONE SEENNormalNONE SEENBellevue HospitalCombeaumont hospital on above:Performed By: #### PT, DDIM #### [facility] [address] [address] [address] Arden Leethelial cells LM Ql (Urine sed)RARENormalNONE SEEN /RAREThe [facility]imaCombeaum[facility] hospital on above:Performed By: #### PT, DDIM #### [facility] [address] [address] [address] Arden James SEENNormalNONE SEENBellevue HospitalCombeaumont hospital on above:Performed By: #### PT, DDIM #### [facility] [address] [place] [address] Dr. Arden MagallonVaqzaVWC9-3Keartf9-3Efy [facility] on above:Performed By: #### PT, DDIM #### [facility] [address] [place] [address] Dr. Arden MagallonWBC0-2AbnormalNONE SEENThe [facility] LimaComment on above: Performed By: #### PT, DDIM #### [facility] [address] [place] [address] Dr. Arden MagallonXR CHEST 1 Von [id number] CHEST 1 VEXAMINATION: XR CHEST 1 V, , 04/15/2022 9:16 [...] Electronically authenticated by: PANCHO ELY Date: 2022-04-15 22:19[facility] Memorial HospitalBNPon 18-16-8588Uqegcnghybi peptide B (Bld) [Mass/Vol]318.0 pg/mLNormal<=1,800.0[facility] [facility] above:Performed By: #### BNP, CMP #### [facility] [address] [place] [address] Dr. Arden MagallonCBC AUTO DIFFon [id number] #0.2 103/ulCritically high0.0-0.1 The [facility] on above:Performed By: #### PT, DDIM #### [facility] [address] [place] [address] Dr. Arden MagallonBasophils/100 WBC (Bld)2.2 %Critically high0.2-2.0The [facility] HospitalComment on above:Performed By: #### PT, DDIM #### [facility] [address] [place] [address] Dr. Arden Valdes #0.5 103/ulNormal0.0-0.7The [facility]ima[facility] on above: Performed By: #### PT, DDIM #### [facility] [address] [place] [address] Dr. Arden Carranzaosinophils/100 WBC (Bld)6.2 %Normal0.9-7.0The [facility] Comment on above:Performed By: #### PT, DDIM #### [facility] [address] [place] [address] Dr. Arden Carranzarythrocyte distribution width (RBC) [Ratio]14.0 %Vanjov27.0-15.0 The [facility] on above:Performed By: #### PT, DDIM #### [facility] [address] [place] [address] Dr. Arden MagallonHematocrit (Bld) [Volume fraction]41.6 %Vnwghw73.0-48.0The [facility]ima[facility] on above:Performed By: #### PT, DDIM #### [facility] [address] [place] [address] Dr. rAden MagallonHemoglobin (Bld) [Mass/Vol]13.8 g/yDLzzdhx79.0-16.0The [facility] on above:Performed By: #### PT, DDIM #### [facility] [address] [place] [address] Dr. Arden Mathew #0.01 10e3/ulNormal0.00-0.03The [facility]imaComment on above:Performed By: #### PT, DDIM #### [facility] [address] [place] [address] Dr. Arden Mathew %0.1 %Normal0.0-0.5The [facility]ima[facility] on above: Performed By: #### PT, DDIM #### [facility] [address] [place] [address] Dr. Arden Alvarado #3.2 103/ulNormal1.2-3.8The [facility]ima[facility] on above:Performed By: #### PT, DDIM #### [facility] [address] [place] [address] Dr. Arden Vitalehocytes/100 WBC (Bld)37.2 %Fxqfcv54.5-60.0The [facility]ima[facility] on above:Performed By: #### PT, DDIM #### [facility] [address] [place] [address] Dr. Arden Rodríguez DIFF REQNONormalThe [facility]ima[facility] on above: Performed By: #### PT, DDIM #### [facility] [address] [place] [address] Dr. Arden Torres (RBC) [Entitic mass]31.0 bgMsinuh39.7-34.0The [facility]imaComment on above:Performed By: #### PT, DDIM #### [facility] [address] [place] [address] Dr. Arden Torres (RBC) [Mass/Vol]33.2 g/qMKsslcp02.9-35.2The [facility]imaComment on above:Performed By: #### PT, DDIM #### [facility] [address] [place] [address] Dr. Arden Torres (RBC) [Entitic vol]93.5 bWGqanms30.0-99.0The [facility]ima[facility] on above:Performed By: #### PT, DDIM #### [facility] [address] [place] [address] Dr. Arden Nelson #0.8 103/ulNormal0.3-0.8The [facility]ima[facility] on above:Performed By: #### PT, DDIM #### [facility] [address] [place] [address] Dr. Arden Perrinocytes/100 WBC (Bld)9.4 %Normal1.7-12.0The [facility] Comment on above:Performed By: #### PT, DDIM #### [facility] [address] [place] [address] Dr. Arden Patterson #3.9 103/ulNormal1.4-6.5The [facility]ima[facility] on above:Performed By: #### PT, DDIM #### [facility] [address] [place] [address] Dr. Arden Miguelutrophils/100 WBC (Bld)44.9 %Jezygl28.0-75.0The [facility]ima[facility] on above:Performed By: #### PT, DDIM #### [facility] [address] [place] [address] Dr. Arden Salaslet mean volume (Bld) [Entitic vol]10.7 fLNormal9.5-13.5The [facility] above:Performed By: #### PT, DDIM #### [facility] [address] [place] [address] Dr. Arden MagallonPLT158 103/ndNncxbk981-404Adb [facility] on above: Performed By: #### PT, DDIM #### [facility] [address] [place] [address] Dr. Arden MagallonRBC4.45 106/ulNormal4.20-5.40The [facility] on above:Performed By: #### PT, DDIM #### [facility] [address] [place] [address] Dr. Arden MagallonWBC8.7 103/ulNormal4.0-11.0The [facility] above: Performed By: #### PT, DDIM #### [facility] [address] [place] [address] Dr. Arden Madsen 14(COMP METB)on 20-66-1614Vutwlcw [Mass/Vol]4.2 g/dLNormal 3.4-5.0The [facility]imaComment on above:Performed By: #### BNP, CMP #### [facility] [address] [place] [address] Dr. Arden MagallonAlbumin/Globulin [Mass ratio]1.2 {ratio}NormalBellevue HospitalComment on above:Performed By: #### BNP, CMP #### [facility] [address] [place] [address] Dr. Arden Amos [Catalytic activity/Vol]75 U/HWqxqkz31-761Nfz [facility]ima[facility] on above:Performed By: #### BNP, CMP #### [facility] [address] [address] [address] Arden Wyman [Catalytic activity/Vol]31 U/JIzmbgh64-93Cwa [facility]ima[facility] on above:Performed By: #### BNP, CMP #### [facility] [address] [place] [address] Dr. Arden Lopez gap [Moles/Vol]11.6 mmol/LNormalBellevue Hospital Comment on above:Performed By: #### BNP, CMP #### [facility] [address] [place] [address] Dr. Arden MagallonAST [Catalytic activity/Vol]16 U/CUialsw23-20Vtp [facility]ima[facility] on above:Performed By: #### BNP, CMP #### [facility] [address] [place] [address] Dr. Arden MagallonBilirubin [Mass/Vol]0.4 mg/dLNormal0.2-1.0[facility] Comment on above:Performed By: #### BNP, CMP #### [facility] [address] [place] [address] Dr. Arden MagallonCalcium [Mass/Vol]9.7 mg/dLNormal8.5-10.1[facility] Comment on above:Performed By: #### BNP, CMP #### [facility] [address] [place] [address] Dr. Arden MagallonChloride [Moles/Vol]106 mmol/ZAjtpzk61-391BcmBellevue Hospital Comment on above:Performed By: #### BNP, CMP #### [facility] [address] [place] [address] Dr. Arden MagallonCO2 [Moles/Vol]25.2 mmol/LFhovwk32.0-32.0The [facility] on above:Performed By: #### BNP, CMP #### [facility] [address] [place] [address] Dr. Arden MagallonCreatinine [Mass/Vol]1.06 mg/dLCritically high0.55-1.02[facility] HospitalComment on above:Performed By: #### BNP, CMP #### [facility] [address] [place] [address] Dr. Her ChangEGFR-AF IYXVHCSB32 mL/min/1.14i8Bnwkmt>=60The [facility] Comment on above:Performed By: #### BNP, CMP #### [facility] [address] [place] [address] Dr. Arden CarranzaGFR-NON AF CCYXQBZF66 mL/min/1.55a2Sspbmslcyi low>=60The [facility]imaComment on above:Performed By: #### BNP, CMP #### [facility] [address] [place] [address] Dr. Arden MagallonGlobulin (S) [Mass/Vol]3.4 g/dLNormalThe [facility] LimaComment on above:Performed By: #### BNP, CMP #### [facility] [address] [place] [address] Dr. Arden MagallonGlucose [Mass/Vol]123 mg/dLCritically tmzj66-172Yly [facility]ima[facility] on above:Performed By: #### BNP, CMP #### [facility] [address] [place] [address] Dr. Arden MagallonPotassium [Moles/Vol]3.8 mmol/LNormal3.5-5.1The [facility] on above:Performed By: #### BNP, CMP #### [facility] [address] [place] [address] Dr. Arden MagallonProtein [Mass/Vol]7.6 g/dLNormal6.4-8.2The [facility] on above:Performed By: #### BNP, CMP #### [facility] [address] [place], [place] [address] Dr. Arden MagallonSodium [Moles/Vol]139 mmol/BDxkwav137-679Hzc [facility] Comment on above:Performed By: #### BNP, CMP #### [facility] [address] [address] [address] Arden Jones nitrogen [Mass/Vol]22.0 mg/dLCritically high7.0-18.0The [facility]imaComment on above:Performed By: #### BNP, CMP #### [facility] [address] [address] [address] Arden Jones nitrogen/Creatinine [Mass ratio]20.8 mg/mgNoalThe [facility]imaComment on above:Performed By: #### BNP, CMP #### [facility] [address] [address] [address] Her ChangECHOCARDIO M/2D COMPLETEon [id number] M/2D COMPLETE Patient: ZORAIDA BARRIOS Exam Date: 04/06/2022 : 1935 Gender:F Ordering : SUSAN LONG Admission #: [id number] Family : Order #: [id number] CLICK HERE TO VIEW EXAM ECHOCARDIOGRAM REPORT [...] Area(A4C): 16.40 cm2 Left Atrium Systolic Volume(A2C): 52310 mm3 Left Atrium Systolic Volume(A4C): 99615 mm3 Mitral Valve MV E to A Ratio: 0.60 Deceleration [place]: 2080 mm/s2 Mitral Valve A-Wave Peak Velocity: 103.00 cm/s Mitral Valve E-Wave Peak Velocity: 62.20 cm/s Right Ventricle RV Internal Diastolic Dimension: 3.04 cm Aorta AO Root Diam: 2.90 cm Aortic Valve AoV Area (Peak Bucky): 1.86 cm2 Deceleration [place]: 1080 mm/s2 Pressure Half-Time: 976 ms Peak Velocity: 361.00 cm/s Peak Gradient: 52 mm[Hg] Aortic Valve Cusp Separation: 1.50 cm Peak Velocity(Antegrade Flow): 138.00 cm/s Peak Gradient(Antegrade Flow): 8 mm[Hg] Tricuspid Valve Peak Velocity (Regurgitant Flow): 243.00 cm/s, 212.00 cm/s Pulmonic Valve Peak Velocity: 94.30 cm/s Peak Gradient: 4 mm[Hg] Right Atrium Dictated by: Edvin Lisa M.D. on 04/06/2022 at 16:23 Approved by: Edvin Lisa M.D. on 04/06/2022 at 16:27[facility]US KIDNEYSon [id number] KIDNEYSEXAMINATION: US KIDNEYS, grayscale and Doppler HISTORY: Essential [...] Electronically authenticated by: BERTHA SOLIZ Date: 2022-04-06 16:45[facility] HospitalBNPon 35-95-5951Qqeinvnqvle peptide B (Bld) [Mass/Vol]193.0 pg/mLNormal<=1,800.0The [facility]imaComment on above:Performed By: #### BNP, CMP #### [facility] [address] [place] [address] Dr. Arden Marie AUTO DIFFon [id number] #0.1 103/ulNormal0.0-0.1The [facility]ima[facility] on above:Performed By: #### BNP, CMP #### [facility] [address] [place] [address] Dr. Arden MagallonBasophils/100 WBC (Bld)0.9 %Normal0.2-2.0The [facility] on above:Performed By: #### BNP, CMP #### [facility] [address] [place] [address] Dr. Arden Valdes #0.4 103/ulNormal0.0-0.7The [facility]ima[facility] on above: Performed By: #### BNP, CMP #### [facility] [address] [place] [address] Dr. Arden Carranzaosinophils/100 WBC (Bld)4.7 %Normal0.9-7.0The [facility] on above:Performed By: #### BNP, CMP #### [facility] [address] [place] [address] Dr. Arden Carranzarythrocyte distribution width (RBC) [Ratio]14.2 %Lltaay66.0-15.0 The [facility]ima[facility] on above:Performed By: #### BNP, CMP #### [facility] [address] [place] [address] Dr. Arden MagallonHematocrit (Bld) [Volume fraction]43.1 %Vctfjs89.0-48.0The [facility]ima[facility] on above:Performed By: #### BNP, CMP #### [facility] [address] [place] [address] Dr. Arden MagallonHemoglobin (Bld) [Mass/Vol]14.1 g/sHFvosfb05.0-16.0The [facility]ima[facility] on above:Performed By: #### BNP, CMP #### [facility] [address] [place] [address] Dr. Arden Mathew #0.04 10e3/ulCritically high0.00-0.03The [facility] Comment on above:Performed By: #### BNP, CMP #### [facility] [address] [place] [address] Dr. Arden Mathew %0.5 %Normal0.0-0.5The [facility]ima[facility] on above: Performed By: #### BNP, CMP #### [facility] [address] [place] [address] Dr. Arden Alvarado #3.0 103/ulNormal1.2-3.8The [facility] on above:Performed By: #### BNP, CMP #### [facility] [address] [place] [address] Dr. Arden Alcantaramphocytes/100 WBC (Bld)34.2 %Ibbyvn12.5-60.0The [facility]imaComment on above:Performed By: #### BNP, CMP #### [facility] [address] [place] [address] Dr. Arden Rodríguez DIFF REQNONormalThe [facility]imaComment on above: Performed By: #### BNP, CMP #### [facility] [address] [place] [address] Dr. Arden Torres (RBC) [Entitic mass]31.3 byKdaqqt79.7-34.0The [facility]ima[facility] on above:Performed By: #### BNP, CMP #### [facility] [address] [place] [address] Dr. Arden Torres (RBC) [Mass/Vol]32.7 g/qJRjuhlo50.9-35.2The [facility]ima[facility] on above:Performed By: #### BNP, CMP #### [facility] [address] [place] [address] Dr. Arden Leonard (RBC) [Entitic vol]95.8 hCVfqhcr74.0-99.0The [facility]ima[facility] on above:Performed By: #### BNP, CMP #### [facility] [address] [place] [address] Dr. Arden Nelson #1.2 103/ulCritically high0.3-0.8The [facility] Comment on above:Performed By: #### BNP, CMP #### [facility] [address] [place] [address] Dr. Arden Perrinocytes/100 WBC (Bld)13.5 %Critically high1.7-12.0The [facility]ima[facility] on above:Performed By: #### BNP, CMP #### [facility] [address] [place], [place] [id number] Dr. Arden Patterson #4.1 103/ulNormal1.4-6.5The [facility] on above:Performed By: #### BNP, CMP #### [facility] [address] [place] [address] Dr. Arden Miguelutrophils/100 WBC (Bld)46.2 %Vvakft51.0-75.0The [facility] on above:Performed By: #### BNP, CMP #### [facility] [address] [place] [address] Dr. Arden MagallonPlatelet mean volume (Bld) [Entitic vol]11.2 fLNormal9.5-13.5The [facility] on above:Performed By: #### BNP, CMP #### [facility] [address] [place] [address] Dr. Arden MagallonPLT160 103/cyIjdzzb013-853Ohn [facility] on above: Performed By: #### BNP, CMP #### [facility] [address] [place] [address] Dr. Arden MagallonRBC4.50 106/ulNormal4.20-5.40The [facility] on above:Performed By: #### BNP, CMP #### [facility] [address] [place] [address] Dr. Arden MagallonWBC8.9 103/ulNormal4.0-11.0The [facility] on above: Performed By: #### BNP, CMP #### [facility] [address] [place] [address] Dr. Arden Madsen 14(COMP METB)on 57-63-7083Awjfxuy [Mass/Vol]4.0 g/dLNormal 3.4-5.0The [facility] on above:Performed By: #### BNP, CMP #### [facility] [address] [place] [address] Dr. Arden MagallonAlbumin/Globulin [Mass ratio]1.2 {ratio}NormalThe [facility] HospitalComment on above:Performed By: #### BNP, CMP #### [facility] [address] [address] [address] Arden Amos [Catalytic activity/Vol]74 U/TCuilgl55-020Nvy [facility] on above:Performed By: #### BNP, CMP #### [facility] [address] [address] [address] Arden Wyman [Catalytic activity/Vol]28 U/VWsxupt85-38Bbp [facility] on above:Performed By: #### BNP, CMP #### [facility] [address] [address] [address] Arden Lopez gap [Moles/Vol]11.9 mmol/LNormalThe [facility] on above:Performed By: #### BNP, CMP #### [facility] [address] [address] [address] Arden MagallonAST [Catalytic activity/Vol]18 U/DApmvea58-58Kcz [facility]ima[facility] on above:Performed By: #### BNP, CMP #### [facility] [address] [address] [address] Arden MagallonBilirubin [Mass/Vol]0.4 mg/dLNormal0.2-1.0The [facility] Comment on above:Performed By: #### BNP, CMP #### [facility] [address] [address] [address] Arden MagallonCalcium [Mass/Vol]9.7 mg/dLNormal8.5-10.1The [facility] Comment on above:Performed By: #### BNP, CMP #### [facility] [address] [address] [address] Arden MagallonChloride [Moles/Vol]105 mmol/CJxqbro99-277Egw [facility] Comment on above:Performed By: #### BNP, CMP #### [facility] [address] [address] [address] Arden MagallonCO2 [Moles/Vol]26.3 mmol/FWcreom93.0-32.0The [facility] Comment on above:Performed By: #### BNP, CMP #### [facility] [address] [address] [address] Arden MagallonCreatinine [Mass/Vol]1.31 mg/dLCritically high0.55-1.02The [facility]imaComment on above:Performed By: #### BNP, CMP #### [facility] [address] [address] [address] Arden CarranzaGFR-AF DSZBLYFX04 mL/min/1.99v7Tszteezbjh low>=60The [facility]imaComment on above:Performed By: #### BNP, CMP #### [facility] [address] [place] [address] Dr. Arden CarranzaGFR-NON AF LEUXLTQH62 mL/min/1.45e5Sktkkydwab low>=60The [facility]imaComment on above:Performed By: #### BNP, CMP #### [facility] [address] [place] [address] Dr. Arden MagallonGlobulin (S) [Mass/Vol]3.3 g/dLNormalThe [facility]imaComment on above:Performed By: #### BNP, CMP #### [facility] [address] [place] [address] Dr. Arden MagallonGlucose [Mass/Vol]111 mg/dLCritically frqo62-984Rqk [facility]ima[facility] on above:Performed By: #### BNP, CMP #### [facility] [address] [place] [address] Dr. Arden MagallonPotassium [Moles/Vol]4.2 mmol/LNormal3.5-5.1The [facility] Comment on above:Performed By: #### BNP, CMP #### [facility] [address] [place] [address] Dr. Arden MagallonProtein [Mass/Vol]7.3 g/dLNormal6.4-8.2The [facility] Comment on above:Performed By: #### BNP, CMP #### [facility] [address] [place] [address] Dr. Arden MagallonSodium [Moles/Vol]139 mmol/EUdhsbf918-899Bub [facility] Comment on above:Performed By: #### BNP, CMP #### [facility] [address] [id number] [address] Arden Jones nitrogen [Mass/Vol]24.0 mg/dLCritically high7.0-18.0The [facility]imaComment on above:Performed By: #### BNP, CMP #### [facility] [address] [id number] [address] Arden Jones nitrogen/Creatinine [Mass ratio]18.3 mg/mgNormalThe [facility]imaComment on above:Performed By: #### BNP, CMP #### [facility] [address] [place] [address] Dr. Arden Green, HIGH SENSITIVITYon 89-01-5082RLFTDV9.6 pg/mLNormal 4.0-51.3The [facility] LimaComment on above:Result Comment: CUT-OFF POINTS HAVE BEEN ESTABLISHED BASED ON THE FOURTH UNIVERSAL DEFINITIONS OF MYOCARDIAL INFARCTION. THE UPPER REFERENCE LIMIT (URL) OF TROPONIN, DEFINED THE 99TH PERCENTILE OF cTnI DISTRIBUTION IN A REFERENCE POPULATION, HAS BEEN CONFIRMED THE DECISION THRESHOLD FOR TN DIAGNOSIS.Performed By: #### CBC #### [facility] [address] [place] [address] Dr. Arden Boles Summary.on 48-90-7321Ucjujt Summary. CD:[id number]+PGhlYWQ+TK2LERBlU75psPOwyT5VH2nSFE6LHJTMXKZVDX5YVY2vx CS9UFccJ2UorbWa [file] IGNv (more content not included)...NormalThe Surgical Hospital At SouthwoodsAuto Diffon 30-74-1550Moaxctghx/100 WBC (Bld)4.4 %High0.0-2.0[facility] Comment on above:Order Comment: Order Added by Discern Expert.Performed By: #### [id number], [id number], [id number], [id number], [id number] #### [facility] [address] [place] [address]Jpzppgnyh/Leukocytes Auto (Bld) [Pure # fraction]0.3 E9/LHigh 0.0-0.2FSelect Medical Specialty Hospital - Cincinnati NorthComment on above:Order Comment: Order Added by Discern Expert.Performed By: #### [id number], [id number], [id number], [id number], [id number] #### [facility] [address] [place] [address]Hdqqnoctzii/100 WBC (Bld)3.8 %Normal0.0-8.0The [facility] Hospital At SouthwoodsComment on above:Order Comment: Order Added by Discern Expert.Performed By: #### [id number], [id number], [id number], [id number], [id number] #### [facility] [address] [place] [address]Qlpehujxubh/Leukocytes Auto (Bld) [Pure # fraction]0.3 E9/L Normal0.0-0.5FSelect Medical Specialty Hospital - Cincinnati NorthComment on above:Order Comment: Order Added by Discern Expert.Performed By: #### [id number], [id number], [id number], [id number], [id number] #### [facility] [address] [place] [address]Yhijapkmmtp/100 WBC (Bld)31.3 %Pvdyvo54.0-50.0The [facility] Hospital At SouthwoodsComment on above:Order Comment: Order Added by Discern Expert. Performed By: #### [id number], [id number], [id number], 6132041, [id number] #### [facility] [address] [place] [address]Rfakcgmxfvv/Leukocytes Auto (Bld) [Pure # fraction]2.3 E9/L Normal1.0-4.0The [facility] Hospital At SouthwoodsComment on above:Order Comment: Order Added by Discern Expert.Performed By: #### [id number], [id number], [id number], [id number], [id number] #### [facility] [address], [place] [address]Ecgqpclio/100 WBC (Bld)12.8 %Normal4.0-14.0The [facility] Hospital At SouthwoodsComment on above:Order Comment: Order Added by Discern Expert.Performed By: #### [id number], [id number], 52096146, 3571602, 2861508 #### [facility] [address] [place] [address]Xeusbbxtn/Leukocytes Auto (Bld) [Pure # fraction]0.9 E9/LNormal 0.2-1.0The [facility] Hospital At SouthwoodsComment on above:Order Comment: Order Added by Discern Expert.Performed By: #### [id number], [id number], 05864546, 8576298, 4346907 #### [facility] [address] [place] [address]Dlkmgxyvurq/100 WBC (Bld)47.7 %Vcejex20.0-75.0The [facility] Hospital At SouthwoodsComment on above:Order Comment: Order Added by Discern Expert. Performed By: #### [id number], [id number], [id number], [id number], [id number] #### [facility] [address] [place] [address]Tvwryomdpad/Leukocytes Auto (Bld) [Pure # fraction]3.5 E9/L Normal2.0-7.5FSelect Medical Specialty Hospital - Cincinnati NorthComment on above:Order Comment: Order Added by Discern Expert.Performed By: #### [id number], [id number], [id number], 0773047, [id number] #### [facility] [address] [place] [address]PSUsy 93-10-2262Lwqionkfnh [Mass/Vol]0.9 mg/dLNormal0.5-1.3 The [facility] At SouthwoodsComment on above:Performed By: #### [id number], 4342053, [id number], 2011969, 1694615 #### [facility] [address] [place] [address]Pxck nitrogen [Mass/Vol]20 mg/dLNormal5-21The [facility] Hospital At SouthwoodsComment on above:Performed By: #### [id number], [id number], 16812642, 9334100, 3321164 #### [facility] [address], [place] [address]Zlnw nitrogen/Creatinine [Mass ratio]22 No OqghcGkrq29-82VmsdxwThe Surgical Hospital At SouthwoodsComment on above:Performed By: #### [id number], [id number], 56002757, 3694933, 7334510 #### [facility] [address], [place] [address]Opnoq gap [Moles/Vol]13 mmol/LNormal6-16The [facility] Hospital At SouthwoodsComment on above:Performed By: #### [id number], 3798258, 21161505, 1778849, 2132476 #### [facility] [address], [place] [address]Rnvphcr [Mass/Vol]9.9 mg/dLNormal8.9-11.1FSelect Medical Specialty Hospital - Cincinnati NorthComment on above:Performed By: #### [id number], 9657203, 56140190, 1219285, 1973091 #### [facility] [address], [place] [address]Outrbttt [Moles/Vol]104 mmol/FUcxnvd929-873AtzhieThe Surgical Hospital At SouthwoodsComment on above:Performed By: #### [id number], 7884405, 86065334, 1155192, 5100317 #### [facility] [address], [place] [address]GN6 [Moles/Vol]24 mmol/PWzwowk67-51OdzkfcThe [facility] Comment on above:Performed By: #### [id number], 3350764, 49594678, 1642505, 5534326 #### [facility] [address], [place] [address]Hvacskk [Mass/Vol]136 mg/cOCxmubl74-650AvxsxnThe Surgical Hospital At SouthwoodsComment on above:Result Comment: If this glucose result represents a fasting glucose, interpretation should refer tothe following reference range: 55-99 mg/dLPerformed By: #### [id number], 0637909, 75727192, 2879277, 0256840 #### [facility] [address], [place] [address]Ejtsbewcn [Moles/Vol]3.7 mmol/LNormal3.5-5.3FSelect Medical Specialty Hospital - Cincinnati NorthComment on above:Performed By: #### 35490675, 2880918, 19053058, 0162579, 4448525 #### [facility] [address], [place] [address]Skvnji [Moles/Vol]137 mmol/QTgsijt607-461PojmegThe Surgical Hospital At SouthwoodsComment on above:Performed By: #### [id number], 2205608, 93686871, 3887710, 1707456 #### [facility] [address] [place] [address]MDU w/ Auto Diffon 24-21-8566Juacwtagtlf distribution width (RBC) [Ratio]15.3 %High10.9-14.2FSelect Medical Specialty Hospital - Cincinnati NorthComment on above: Performed By: #### [id number], 5675774, 53927339, 3275299, 9832787 #### [facility] [address] [place] [address]Ojewrsqquv (Bld) [Volume fraction]43.0 %Krhyqe78.0-46.0[facility] At SouthwoodsComment on above:Performed By: #### [id number], 3307958, 69707465, 3396563, 6710915 #### [facility] [address], [place] [address]Ilzbsddcah (Bld) [Mass/Vol]14.4 g/hEBgrdas20.0-16.0[facility] At SouthwoodsComment on above:Performed By: #### 82755885, 1317890, 01681274, 9572074, 1876218 #### [facility] [address], [place] [address]QAB (RBC) [Entitic mass]31.0 qkGpryxz42.0-34.0[facility] SouthwoodsComment on above:Performed By: #### 18946227, 1846619, 07569205, 9350257, 0099189 #### [facility] [address] [place] [address]NTCU (RBC) [Mass/Vol]33.6 g/sGAwjsju60.4-36.0[facility] SouthwoodsComment on above:Performed By: #### [id number], 5089171, 27787962, 5650106, 5856200 #### [facility] [address] [place] [address]QTJ (RBC) [Entitic vol]92.2 qZWvddmz66.0-100.0[facility] At SouthwoodsComment on above:Performed By: #### 75878056, 3716538, 39825196, 6497053, 4612649 #### [facility] [address] [place] [address]Xruyotzn mean volume (Bld) [Entitic vol]9.2 fLNormal6.4-10.8 [facility] SouthwoodsComment on above:Performed By: #### [id number], 6788049, 82507671, 7201970, 7021643 #### [facility] [address] [place] [address]Hchhnipsg (Bld) [#/Vol]137.0 E9/RKpd322.0-500.0[facility] SouthwoodsComment on above:Performed By: #### 64674277, 1124804, 64611722, 5350798, 9693164 #### [facility] [address] [place] [address]ZUZ (Bld) [#/Vol]4.7 E12/LNormal4.3-5.9[facility] SouthwoodsComment on above:Performed By: #### 99861882, 9770922, 98325527, 7582353, 2971693 #### Recinos [facility] [address], [place] [address]UWU corrected for nucl RBC Auto (Bld) [#/Vol]7.3 E9/LNormal 4.0-11.0[facility] SouthwoodsComment on above:Performed By: #### 18853833, 3165084, 15747339, 8699335, 8865587 #### Jorje [facility] [address], [place] [address]MXZHBNYHENruwpnd By: SYSTEM SYSTEM on 28-69-4081Duhqy gap [Moles/Vol]13 mmol/LNormal6 - 16 mEq/LFTMC RemisolCalcium [Mass/Vol]9.9 mg/dL Normal8.9 - 11.1 mg/dLFTMC RemisolChloride [Moles/Vol]104 mmol/ZHyjrwn328 - 111 mmol/LFTMC RemisolCO2 [Moles/Vol]24 mmol/ZKscnwt01 - 31 mmol/LFTMC Remisol Creatinine [Mass/Vol]0.9 mg/dLNormal0.5 - 1.3 mg/dLFTMC RemisolGlucose [Mass/Vol]136 mg/fXBatmqc65 - 199 mg/dLFTMC RemisolPotassium [Moles/Vol]3.7 mmol/LNormal3.5 - 5.3 mmol/LFTMC RemisolSodium [Moles/Vol]137 mmol/ZTrkvze941 - 145 mmol/LFTMC RemisolTroponin I.cardiac [Mass/Vol]8.10 pg/mLLow10.10 - 27.10 pg/mLFTMC RemisolUrea nitrogen [Mass/Vol]20 mg/dLNormal5 - 21 mg/dLFTMC Remisol Urea nitrogen/Creatinine [Mass ratio]22 mg/owZqki35 - 20FTMC RemisolCOAGULATION Ordered By: Belkis Watson on 75-12-3207uWDP Coag (PPP) [Time]25.4 bZolmqc27.1 - 36.5 second(s)[facility] Auto CoagINR Coag (PPP) [Relative time]1.1 {INR}Invalid Interpretation CodeFTMC Auto CoagPT Coag (PPP) [Time]13.4 sHigh10.2 - 12.9 second(s)[facility] Auto CoagCT Head or Brain w/o Contraston 33-71-2595JZ Head or Brain w/o ContrastExam Date/Time: 02/24/2022 08:40 EDT Reason for Exam: [...] Jacob Coon MD Transcribed by: KHANH Technologist: [facility] HospitalConsent for Treatmenton 20-32-1197Ddnchdn for Treatment [id number]:127[facility] CenterDischarge Instructionson 12-85-4564Ajnzfsgvy Instructions [id number]#[id number]:127[facility] Clinical Summaryon [id number] Clinical Summary [address] [address] ED Clinical Summary Person Information Name: ZORAIDA BARRIOS[place] Age: 86 Years : 1935 Sex: Female Language: Occitan PCP: LACEY FREY MD Marital Status: Single [...] 02/24/2022 10:32:06 02/24/2022 10:32:06 02/24/2022 10:32:06 ADDRESS: [address] [place] [id number] PHYS DOC NOTES: MEDICAL INFORMATION: Prescriptions Given: PATIENT EDUCATION INFORMATION: Instructions: Hypertension, Adult Follow up: With: Address: When: LACEY FREY [address] [place] [id number] Business (1) In 3 days 02/27/2022 Comments: Increase Losartan to 100 mg a day. Continue Metoprolol 50 mg a day. Make sure to take your blood pressure twice a day and follow-up with Dr. Frey tomorrow at 1 PM at her office. Return to the emergency room if your headache recurs, chest pain, dizziness or any new symptoms. DIAGNOSIS: 1:Accelerated hypertensionNormalFisher Lake And Peninsula Medical CenterED Note-Physicianon [id number] Note-PhysicianBasic Information Time Seen: Norma PalaciosDemond 02/24/2022 08:14 Chief Complaint Pt had surgery on right eye this AM with [facility]. Pt reports her BP was elevated this AM before and after surgery. BP was over 200 at [place]. Had a headache at the time, but not in ED. Denies all others/s. History of Present Illness The patient is [...] Jorge's office for right eye laser surgery andher blood pressure was 289/106. The patient denies [...] reported headache. Her blood pressure at the adoption social worker office was 289/106. In the emergency room her blood pressure has dropped slightly to 260/109. The patient reported slight headache that has improved upon arrival to the emergency room. EKG shows no acute ischemic changes left ventricular hypertrophy. Blood work reveals normal renal function. Troponin is negative. The chest x-ray shows no acute cardiopulmonary disease. The patient wasgiven 1 dose of hydralazine 10 mg IV and her blood pressure improved to 190/80. The case is discussed with Dr. Frey patient's primary care who agreed to increase losartan to 100 mg daily from 50 andshe will see her tomorrow in her office. [...] LACEY FREY In 3 days 02/27/[address] [place] [phone]- Business (1) Additional Instructions: Increase Losartan [...] % High (02/24/22 0 (more content not included)...[facility] CenterComment on above:Result Comment: Electronically Signed By: Norma Palacios, Demond Collins\.br\Date and Time Signed: 02/24/2211:07 EDTED Patient Education Noteon 88-36-2434BS Patient Education NoteCardiovascular Hypertension, Adult High blood pressure (hypertension) is [...] or tofu. ? Avoi (more content not included)...[facility] Patient Summaryon [id number] Patient Summary [place] [address] Patient Discharge Instructions Person Information Name: ZORAIDA BARRIOS Age: 86 Years Arrival Date: 02/24/2022 08:11:05 Discharge Diagnosis: 1:Accelerated hypertension Primary Care Physician: LACEY FREY MD Provider Information Primary Provider: Demond Green M.D. Advanced Operations Intelligence:None The exam and treatment you received in the Emergency Department were for an urgent problem and are not intended as complete care. It is important that you follow up with a doctor, nurse practitioner,or physician?s assistant professor of spanish for ongoing care. If your symptoms become worse or you do not improve as expected and you are unable to reach your usual health care provider, you should return to the Emergency Department. We are available 24 hours a day. ZORAIDA BARRIOS has been given the following list of patient education materials, prescriptions and follow-up instructions: Follow-up Instructions: With: Address: When: LACEY FREY [facility] [place] [address] Business (1) In 3 days 02/27/2022 Comments: [...] opioids can be used to help relieve kpagodwk-iv-zisrwf pain and are often prescribed following a [...] and have fewer risks and side effects. Optionsmay include: ? Pain relievers such as acetaminophen, [...] unused prescription opioids: Find your community drug take- back program or [employer] mail-back program, or flush them down the toilet, following guidance from the Food and Drug Administration (www.fda.gov/Drugs/ResourcesForYou). ? Visit (more content not included)...[facility] HEMATOLOGYOrdered By: SYSTEM SYSTEM on 89-21-7974Bqvovavuq/100 WBC (Bld)4.4 % High0.0 - 2.0 %[facility] HemeAutoSSBasophils/Leukocytes Auto (Bld) [Pure # fraction] 0.3 E9/LHigh0.0 - 0.2 E9/LFTMC HemeAutoSSEosinophils/100 WBC (Bld)3.8 %Normal0.0 - 8.0 %[facility] HemeAutoSSEosinophils/Leukocytes Auto (Bld) [Pure # fraction]0.3 E9/LNormal0.0 - 0.5 E9/LFTMC HemeAutoSSLymphocytes/100 WBC (Bld)31.3 %Kmjmbv29.0 - 50.0 %[facility] HemeAutoSSLymphocytes/Leukocytes Auto (Bld) [Pure # fraction]2.3 E9/LNormal1.0 - 4.0 E9/LFTMC HemeAutoSSMonocytes/100 WBC (Bld)12.8 %Normal4.0 - 14.0 %[facility] HemeAutoSSMonocytes/Leukocytes Auto (Bld) [Pure # fraction]0.9 E9/L Normal0.2 - 1.0 E9/LFTMC HemeAutoSSNeutrophils/100 WBC (Bld)47.7 %Vslbnp54.0 - 75.0 %[facility] HemeAutoSSNeutrophils/Leukocytes Auto (Bld) [Pure # fraction]3.5 E9/L Normal2.0 - 7.5 E9/LFTMC HemeAutoSSHEMATOLOGYOrdered By: Elena Vidales on 18-08-4594Ohnrxfcqidb distribution width (RBC) [Ratio]15.3 %High10.9 - 14.2 % [facility] HemeAutoSSHematocrit (Bld) [Volume fraction]43.0 %Ejgknq05.0 - 46.0 %[facility] HemeAutoSSHemoglobin (Bld) [Mass/Vol]14.4 g/iIUbddte78.0 - 16.0 gm/dLFTMC HemeAutoSSMCH (RBC) [Entitic mass]31.0 jpJtqshp77.0 - 34.0 pgFTMC HemeAutoSSMCHC (RBC) [Mass/Vol]33.6 g/zCHkmsgk92.4 - 36.0 gm/dLFTMC HemeAutoSSMCV (RBC) [Entitic vol]92.2 aAQsxvck25.0 - 100.0 fLFTMC HemeAutoSSPlatelet mean volume (Bld) [Entitic vol]9.2 fLNormal6.4 - 10.8 fLFTMC HemeAutoSSPlatelets (Bld) [#/Vol]137.0 E9/CIxj734.0 - 500.0 E9/LFTMC HemeAutoSSRBC (Bld) [#/Vol]4.7 E12/L Normal4.3 - 5.9 E12/LFTMC HemeAutoSSWBC corrected for nucl RBC Auto (Bld) [#/Vol]7.3 E9/LNormal4.0 - 11.0 E9/LFTMC HemeAutoSSPT & PTTon 61-70-0134VPS Coag (PPP) [Relative time]1.1 {INR}Invalid Interpretation CodeThe Surgical Hospital At SouthwoodsComment on above:Result Comment: INR results are specifically intended to assess patients stabilized on long-term Anticoagulation therapy suggested INR?s ?Less Intensive Anticoagulation? 2.0 ? 3.0 Conventional Range 3.0 ? 4.5Performed By: #### [id number], 6459795, 62039805, 1622800, 4403498 #### [facility] [address], [place] [address]MN Coag (PPP) [Time]13.4 second(s)High10.2-12.9The [facility] At SouthwoodsComment on above:Performed By: #### [id number], 4729020, 97307657, 0346066, 2413281 #### [facility] [address], [place] [address]cWLP Coag (PPP) [Time]25.4 second(s)Hueftj16.1-36.5FSelect Medical Specialty Hospital - Cincinnati NorthComment on above:Result Comment: Heparin therapeutic range (represented by Anti-Factor Xa activity of 0.2 - 0.4 U/mL) corresponds to PTT of 56.6 - 109.0 sec.Performed By: #### [id number], 6394575, 70102770, 1748116, 2574405 #### [facility] [address], [place] [address]Eegvpzyd 0 Hr.on 40-97-1708Qxjwkukq I.cardiac [Mass/Vol]8.10 pg/mLLow10.10-27.10The [facility] At SouthwoodsComment on above:Result Comment: The 95% CI (Confidence Interval) PPV (Positive Predictive Value) for myocardial infarction in females is 38 pg/mL, in males 51 pg/mL. The results should be used in conjunction with clinical conditions of myocardial infarction. (Access High Sensitivity Troponin I Instructions For Use, Gwendolyn Denver, May 2018)Performed By: #### [id number], 2600753, 07472086, 7204156, 0521256 #### [facility] [address], [place] [address]WD Chest Single Viewon [id number] Chest Single ViewExam Date/Time: 02/24/2022 08:44 EDT Reason for Exam: [...] 02/24/2022 11:58 am EDT, Trevon Tyler M.D., [facility] Vital Signs Date TimeVital SignValuePerforming WbbjwaizoKpbmurmr08-67-1583 11:35-0400 Diastolic blood hbonishw22 mm[Hg]Lacey Frey MD Work Phone: [phone]10-22-2025 11:35-0400 Heart rate68 /minLacey Frey MD Work Phone: [phone]10-22-2025 11:35-0400 Systolic blood goylupxd060 mm[Hg]Lacey Frey MD Work Phone: [phone]10-22-2025 11:27-0400 Body gcacmw255.48 cmLacey Frey MD Work Phone: [phone]10-22-2025 11:27-0400 Body mass index (BMI) [Ratio]23.3 kg/i3QtbnjjLacey Frey MD Work Phone: [phone]10-22-2025 11:27-0400 Body srgbpy80.05 kgLacey Frey MD Work Phone: [phone])[address]10-06-2025 11:44-0400 Diastolic blood ttaochcc45 mm[Hg]Lacey Frey MD Work Phone: 1(976)[address] [place], [place] 8951010-06-2025 11:44-0400 Heart rate55 /Chico Frey MD Work Phone: [phone])[address] [place], [place] [address]1010-06-2025 11:44-0400 Systolic blood mm[Hg]Lacey Frey MD Work Phone: 1(196)[address] [place], [place] [address]1010-06-2025 11:29-0400 Body .48 cmLacey Frey MD Work Phone: [phone])[address] [place], [place] [address]1010-06-2025 11:29-0400 Body mass index (BMI) [Ratio]23.4 kg/w9VkzahwLacey Frey MD Work Phone: 1(691)[address] [place], [place] [address]951010-06-2025 11:29-0400 Body pahgzf12.2 Ed Frey MD Work Phone: [phone])[address] [place], [place] 8951008-04-2025 13:31-0400 Diastolic blood bvsglrun05 mm[Hg]Lacey Frey MD Work Phone: 1(866)[address] [place], [place] 8951008-04-2025 13:31-0400 Systolic blood ooiyuise980 mm[Hg]Lacey Frey MD Work Phone: [phone])[address] [place], [place] 8951008-04-2025 13:21-0400 Body rchekp648.48 cmLacey Frey MD Work Phone: [phone])[address] [place], [place] 8951008-04-2025 13:21-0400 Body mass index (BMI) [Ratio]24 kg/v9IlhnagLacey Frey MD Work Phone: 1([phone])[address] [place], [place] 8951008-04-2025 13:21-0400 Body .56 Ed Frey MD Work Phone: 1(160)[address] [place], [place] 8951008-04-2025 13:21-0400 Heart rate57 /Chico Frey MD Work Phone: [phone]08-04-2025 13:21-0400 Respiratory rate12 /Chico Frey MD Work Phone: [phone])[address]08-04-2025 13:21-0400 SaO2% (BldA) [Mass fraction]97 %Lacey Frey MD Work Phone: [phone])[address]07-07-2025 11:21-0400 Body lopsmy171.48 cmLacey Frey MD Work Phone: [phone])[address]07-07-2025 11:21-0400 Body mass index (BMI) [Ratio]24.1 kg/b1KcuxpwLacey Frey MD Work Phone: [phone])[address]07-07-2025 11:21-0400 Body ebxoja21.87 kgLacey Frey MD Work Phone: 1(714)[address]07-07-2025 11:21-0400 Diastolic blood cozrknzd33 mm[Hg]Lacey Frey MD Work Phone: 1(894)[address] [place], [place] 8951007-07-2025 11:21-0400 Heart rate57 /Chico Frey MD Work Phone: 1(746)[address] [place], [place] 8951007-07-2025 11:21-0400 SaO2% (BldA) [Mass fraction]97 %Lacey Frey MD Work Phone: [phone])[address]07-07-2025 11:21-0400 Systolic blood cjlfpbuc186 mm[Hg]Lacey Frey MD Work Phone: [phone])[address]04-29-2025 14:26-0400 Body idkkyd560.48 cmA[facility]04-29-2025 14:26-0400Body mass index (BMI) [Ratio]23.9 kg/r9ModhjgcktAdena Regional Medical Center04-29-2025 14:0400Body njeudn30.42 kgAdena Regional Medical Center04-29-2025 14:26-0400Diastolic blood phdsrsor64 mm[Hg][facility] 02-04-2025 14:26-0400Heart rate58 /[facility] 02-04-2025 14:-0400Systolic blood ivdvlxgw123 mm[Hg][facility]03-20-2025 13:02-0400Body .48 cmA[facility]a [facility] Center03-20-2025 13:02-0400Body mass index (BMI) [Ratio]24.7 kg/i8YbzyhfgvfAdena Regional Medical Center03-20-2025 13:-0400Body enamih66.46 kgAdena Regional Medical Center03-20-2025 13:02-0400Diastolic blood ggldidjj30 mm[Hg] [facility]03-20-2025 13:-0400Heart rate69 /[facility]03-20-2025 13:-0400Systolic blood nlbjurpx156 mm[Hg] [facility]02-10-2025 13:05-0500Body rjqxwa891.48 cm [facility]02-10-2025 13:05-0500Body mass index (BMI) [Ratio]24 kg/w2NreoafdyxAdena Regional Medical Center02-10-2025 13:05-0500Body weight 59.56 kgAdena Regional Medical Center02-10-2025 13:05-0500Diastolic blood qlyceklw45 mm[Hg][facility]02-10-2025 13:05-0500Heart rate65 /[facility]02-10-2025 13:05-0500Systolic blood mnjmqqfu394 mm[Hg][facility]10-01-2024 14:24-0400Body jtscdi840.48 cmAdena [facility] Medical Center10-01-2024 14:24-0400Body mass index (BMI) [Ratio]24.3 kg/f2SlvqzesrsAdena Regional Medical Center10-01-2024 14:24-0400Body bmybye19.46 kgAdena Regional Medical Center10-01-2024 14:24-0400Diastolic blood jfpwhxuy09 mm[Hg][facility] 07-09-2024 14:24-0400Heart rate57 /[facility] 07-09-2024 14:24-0400Systolic blood mm[Hg][facility]07-30-2024 13:44-0400Body oqgsmi122.48 cmAdena Regional Medical Center07-30-2024 13:44-0400Body mass index (BMI) [Ratio]23.8 kg/h4LddtfbzfxAdena Regional Medical Center07-30-2024 13:44-0400Body eufiyy54.96 kgAdena Regional Medical Center07-30-2024 13:44-0400Diastolic blood glmbkcpi58 mm[Hg] [facility]07-30-2024 13:44-0400Heart rate61 /[facility]07-30-2024 13:44-0400Systolic blood waexlpgf788 mm[Hg] [facility]04-01-2024 11:43-0400Body cjxmuz462.48 cm [facility]04-01-2024 11:43-0400Body mass index (BMI) [Ratio]22.8 kg/y6CknjqsteuAdena Regional Medical Center04-01-2024 11:43-0400Body .84 kgAdena Regional Medical Center04-01-2024 11:43-0400Diastolic blood lazunnxx78 mm[Hg][facility]04-01-2024 11:43-0400 Heart rate61 /[facility]04-01-2024 11:43-0400Systolic blood szjumuvu833 mm[Hg][facility]08-31-2023 14:30-0400 Body aamzho991.48 cmLacey Frey Other [facility] Other 08-31-2023 14:30-0400Body mass index (BMI) [Ratio] 23.13 kg/r4EgnryvLacey Frey Other [facility] Other 08-31-2023 14:30-0400Body nuobhr30.38 kgLacey Frey Other [facility] Other 08-31-2023 14:30-0400Diastolic blood tgwxvart04 mm[Hg] Lacey Frey Other [employer] Other 08-31-2023 14:30-0400Respiratory rate16 /minLacey Frey Other [employer] Other 08-31-2023 14:30-0400Systolic blood hvtaoxox019 mm[Hg] Lacey Frey Other [employer] Other 03-14-2023 15:20-0400Body zqwkvo738.48 cmAdavidtiago Watson Other [facility] Other 03-14-2023 15:20-0400Body mass index (BMI) [Ratio] 23.08 kg/m2Rox Shirley Other [facility] Other 03-14-2023 15:20-0400Body bnkqulqfsqw82 [degF]Rox Watson Other [facility] Other 03-14-2023 15:20-0400Body uyjlwn59.24 kgRox Shirley Other [facility] Other 03-14-2023 15:20-0400Diastolic blood uadpphqm46 mm[Hg] Adolfoaicha Danwas Other [facility] Other 03-14-2023 15:20-0400Respiratory rate16 /minRox Shirley Other [facility] Other 03-14-2023 15:20-9963QrV9% (BldA) [Mass fraction]100 % Rox Watson Other [employer] Other [id number] 15:20-0400Systolic blood yugzmlyx885 mm[Hg] Rox Watson Other [facility] [employer] Other [id number] 10:12-0400Diastolic blood uegaxbyl18 mm[Hg] [facility]05-19-2022 10:12-0400Heart rate68 /minThe [facility]05-19-2022 10:12-0400Respiratory rate15 /[facility]05-19-2022 10:12-8833JgA3% (BldA) [Mass fraction]98 %[facility]05-19-2022 10:12-0400Systolic blood ipilhqlp675 mm[Hg][facility]05-19-2022 09:24-0400Diastolic blood rufuabya58 mm[Hg][facility]05-19-2022 09:24-0400Heart rate66 /[facility]05-19-2022 09:24-0400Respiratory rate16 /[facility]05-19-2022 09:24-1757RkR7% (BldA) [Mass fraction]99 %[facility]05-19-2022 09:24-0400 Systolic blood zmcujixn050 mm[Hg][facility] 02-24-2022 08:50-0400Diastolic blood nnfvytcl881 mm[Hg][facility]05-19-2022 08:50-0400Systolic blood mm[Hg][facility]05-19-2022 08:14-0400Body sfpmsniavpo04.24 [degF][facility]05-19-2022 08:14-0400Heart rate 74 /minThe [facility]05-19-2022 08:14-0400 Respiratory rate18 /minThe [facility]05-19-2022 08:14-6237IkT2% (BldA) [Mass fraction]99 %[facility] Encounters Encounter DateEncounter TypeCare ProviderFacilityStart: 07-30-2025 End: 07-63-1352sbwlkfqtpiIipizb E Braun MD [facility] Phone: [facility] 07-30-2025 End: 84-93-7191Wothydi encounter procedureLacey Frey MD-[facility] Work Phone: Start: 07-14-2025 End: 10-60-4886yeouzwjlbsMlunvv E Braun MD Work Phone: [facility] Work Phone: Start: 07-14-2025 End: 75-36-7629Fddzsce encounter procedureLacey Frey MD-[facility] Work Phone: Start: 25-00-2149Wzz-patient / Non-visitMarnadja Hurtado MD-[facility] Work Phone: Start: 09-03-5539Xin-patient / Non-visitJames Wiley DO- [facility] Work Phone: Start: 98-50-0800Buq-patient / Non-visitCatshahbaz Wilkinson CMABarn[facility] Work Phone: Start: 57-60-5762Jbx-patient / Non-visitDennys Perez DO-[facility] Work Phone: Start: 05-12-2025 End: 29-52-8964klcfgwfksoAdiera E Braun MD Work Phone: [facility] Work Phone: Start: 05-12-2025 End: 00-74-1141Uhocdib encounter procedureLacey Frey MD-[facility] Work Phone: Start: 04-14-2025 End: 08-64-4767tvetitcutyCfbhle E Braun MD Work Phone: [facility] Work Phone: Start: 04-14-2025 End: 37-96-8226Lpcohcz encounter procedureLacey Frey MD-[facility] Work Phone: Start: 90-42-7139Fan-patient / Non-visitCatshahbaz Wilkinson CMA-[facility] Work Phone: Start: 23-78-0954Saa-patient / Non-visitAmy Jack LACY -[facility] Work Phone: Start: 02-12-2025 End: 34-90-1689bppuuqdsrpWKNWBRK [facility]: 02-04-2025 End: 65-28-0365dwcimaakvdEojifxlnyW[facility]oster [facility] Work Phone: Start: 02-04-2025 End: 95-12-8440Eczfuiw encounter procedureFirjoses Physician Group-[facility] Work Phone: Start: 02-03-2025 End: 73-11-2750Nya-admission assessmentMoconchis Gregorio [facility] Start: 12-26-2024 End: 56-23-3909khwncxyhmeKmxjmthqhWooster Community Hospital Work Phone: Start: 12-26-2024 End: 38-10-1895Lmyeqqj encounter procedureFirjoses Physician Group-[facility] Work Phone: Start: 48-16-2795Wvn-patient / Non-visitFirelands Physician Group-[facility] Work Phone: Start: 31-09-7675Bbv-patient / Non-visitFirelands Physician Group-[facility] Work Phone: Start: 11-28-2024 End: 86-84-7325mdyrwlszcdBUEKFOSuburban [facility] Start: 11-18-2024 End: 90-06-1893vkbfotzglvBpvqahtytWooster Community Hospital Work Phone: Start: 11-18-2024 End: 95-86-9419Ujlrwtn encounter procedureFirnew lagunas [facility] Work Phone: Start: 07-09-2024 End: 62-81-7683eoykqldbgiPpaexakrgWVUMedicine [facility] Work Phone: Start: 07-09-2024 End: 82-46-7254Qzgaoes encounter procedureFirbon [facility] Work Phone: Start: 06-28-2024 End: 49-58-1796rrpgcoebkmDZTSSVGParkview Health Montpelier Hospitaltart: 28-29-4306Arj-patient / Non-visitFirelands Physician GroupSaint [facility] Work Phone: Start: 56-92-7047Qhn-patient / Non-visitFirelands [facility] Work Phone: Start: 33-59-4288Jll-patient / Non-visitFirelands Physician GroupSaint [facility] Work Phone: Start: 05-07-2024 End: 63-80-7950azoxfsdgxdEpsoeilcyWooster Community Hospital Work Phone: Start: 05-07-2024 End: 21-84-8783Suzgluf encounter procedureFirbon [facility] GroupBarn[facility] Work Phone: Start: 05-01-2024 End: 33-89-2111rylxsxvhiuEOPWXGHSelect Medical Specialty Hospital - Columbustart: 23-71-9009Xnr-patient / Non-[facility] Work Phone: Start: 03-28-2024 End: 78-89-5593rkkvwvdvdnAJXDWJEParkview Health Montpelier Hospitaltart: 01-08-2024 End: 30-74-1152ekdvpbnwfgZiszfeljrWooster Community Hospital Work Phone: Start: 01-08-2024 End: 76-73-0437Mpvlfjo encounter procedureC[facility] Work Phone: Start: 31-31-7468Irr-patient / Non-visitC[facility] Health [facility] Work Phone: Start: 06-08-2023 End: 49-03-2383biecbaqpnxRqqmre Frey Other Nafham Other Start: 21-58-9124Exwkds outpatient visit 15 minutes [facility]: 05-25-2023 End: 19-23-2466qcdidjmsvzFgwmpb Frey Other Nafham Other Start: 60-74-5588Mxzzuutwg encounterMarcia [facility] Hospitaltart: 04-25-2023 End: 38-99-3637izwoxyyabsIgbhlb Frey Other noClipboard Other Start: 13-11-1152Yvoaadxeh encounterMarcia [facility] Hospitaltart: 03-23-2023 End: 29-22-4497wpppdqbhfcRrlhbi Frey Other noClipboard Other Start: 95-23-4990Dgnhnnkbi encounterMarcia [facility] Hospitaltart: 02-20-2023 End: 80-35-0130eyzqkajcbyRrvnhq Frey Other noClipboard Other Start: 80-33-8012Vbborwzxc encounterLacey [facility] ClinicStart: 01-17-2023 End: 56-05-2397ybavzbxuqsHghesr Frey Other Cl[employer] Other Start: 10-84-4652Zhkbfffqx encounterMareverett FreyPuma [facility] ClinicStart: 12-20-2022 End: 87-43-9376fxvrauijmmXfwc Bakhous Other Kelly Playfish Other Start: 31-48-2338TELI visit new Luisito WatsonPuma NephrologyStart: 12-19-2022 End: 30-07-3886jhuufrtahyTghwfk Frey Other Kelly Playfish Other Start: 25-47-9757Lseuacjgn encounterMareverett [facility] Enterprise ClinicStart: 12-10-2022 End: 92-90-0295iqzfahayrzMQQYKHE BOESFacility:M5Tjmyr: 11-15-2022 End: 38-73-3155mvlknjrmfuTO GEORGIE WELLERFacility:R1Tdntl: 10-09-2022 End: 85-10-8830zyqtslkalyJZ JAMES WILEY .Facility:E4Brsim: 09-30-2022 End: 16-74-5399wzesqjutqnFTVYM PARKERFacility:K7Vehpf: 09-26-2022 End: 31-27-7334wazsplwtixQH HARJINDER RAMIREZFacility:H8Qcjow: 09-21-2022 End: 69-85-5597imbhiwgtmcMC LACEY FREYFacility:W4Aciwn: 09-18-2022 End: 01-75-7863rygbmmovtaOS GEORGIE WELLERFacility:F3Snfbg: 09-11-2022 End: 93-55-8602cmunzfunpxMT JAMES PuentesFacility:U4Helzf: 09-03-2022 End: 49-48-7131fjylmgtcktTEJVV PARKERFacility:N8Ljtdc: 09-03-2022 End: 66-67-2586budhpgvsrcQH JAMES WILEY .Facility:Q8Lhans: 08-30-2022 End: 66-83-6364qqmwgqjzwsES LACEY E BRAUNFacility:O0Qiyjr: 08-26-2022 End: 70-13-0364smmnvvylfuBE LACEY E BRAUNFacility:B9Ljtpf: 08-24-2022 End: 55-66-0777nmgulykpxmZJ LACEY E BRAUNFacility:F7Snhrg: 08-17-2022 End: 06-08-2521myuqfrzdlxYZ LACEY E BRAUNFacility:O3Zturb: 07-02-2022 End: 27-65-1501yzgxqcszewPH LACEY E BRAUNFacility:U8Nkszq: 04-15-2022 End: 73-30-5383fcdafqyyitGY LACEY E BRAUNFacility:X9Azyui: 89-25-1955nybhcdqoyv AALIYAH BOESFacility:U6Wjdxo: 04-06-2022 End: 29-01-8580wxdevjpgspZPROMXJ ALGHOTHANIFacility:U3Pwwzv: 03-17-2022 End: 78-28-8065pxzeypjciaIS LACEY E BRAUNFacility:E6Oxbqp: 02-24-2022 End: 77-88-6060Ftunkbohh department patient visitAstrit [facility] Plan of Treatment DateCare ActivityDetailAuthorStart: 97-42-3075Hpxupvh referralChildren'[facility] Hospital [facility] Work Phone: Patient referralChildren'S Hospital [facility] Work Phone: [place].doppler Carotid arteries - bilateralAdena Regional Medical CenterXR Chest 2 ViewsJay [facility] Payers DatePayer CategoryPayerPolicy [id number] [id number] [id number] 2.16.840.1.794790.3.579.2.89272-46-5411 [id number] 2.16.840.1.961089.3.57[id number] 2.16.840.1.176579.3.57[id number] 2.16.840.1.428358.3.57[id number] 2.16.840.1.145155.3.57[id number] 2.16.840.1.363770.3.57[id number] 2.16840.1.434249.3.579.[id number] 2.16.840.1.536912.3.579.2.1[id number] 2.16.840.1.087087.3.579.[id number] 2.16.840.1.923109.3.57[id number] 2.16.840.1.755500.3.57[id number] 2.16.840.1.792738.3.57[id number] 2.16.840.1.398733.3.57[id number] 2.16.840.1.925336.3.57[id number] 2.16.840.1.869377.3.57[id number] 2.16.840.1.211500.3.57[id number] 2.16.840.1.440280.3.579.2.75115-00-5194Fgxghhe2155881 2.16.840.1.251233.3.579.2.12156-82-3990Jmywxyj3036043 2.16.840.1.874235.3.[id number] 2.16.840.1.871489.19Unknown [id number] q14fz5nb-v799-51bq-[id number] Social History DateTypeDetailFacilityTobacco smoking statusUnknown if ever smokedCleveland Clinic Euclid Hospitalex Assigned At [facility] Hospitaltart: 79-91-7766Omf Assigned At [facility] HospitalTobacc smoking status NHISUnknown if ever smokedChildren'S Hospital Of [facility] Work Phone: Start: 02-24-2022 End: 24-08-0409DwmGpmsgr (finding)[facility] Medical CenterTobacco smoking statusOur [facility] Of [facility] Start: 77-49-2513Hhhwymd smoking status NHISSmokes tobacco daily (finding)[facility] Clinical Notes 02-24-2022 to 05-12-2025 Note Date & FdneGnnqWuszpqzy32-71-1061 Evaluation note* Diagnosis Onset Date Resolution Status Admit Date Medicare annual wellness visit, subseque nt acuteAugust 2024 1:20pmResistant hypertensionacuteAugust 2024 1:20pm Tobacco dependence syndromeacuteAugust 2024 1:20pmPneumoniaacuteOctober 2024 11:19am [facility] Work Phone: 1(649) 572-255208-04-2025 Evaluation note* Diagnosis Onset Date Resolution Status Admit Date Medicare annual wellness visit, breana clemente acuteAugust 2024 1:20pmResistant hypertensionacuteAugust 2024 1:20pm Tobacco dependence syndromeacuteAugust 2024 1:20pmAnxietyacuteOctober 2024 11:19amHypertensionacuteOctober 2024 11:19amPneumoniaacuteOctober 2024 11:19amPilonidal cystacuteOctober 2024 11:17am [facility] Work Phone: 1(685) 310-128407-07-2025 Evaluation note* Diagnosis Onset Date Resolution Status Admit Date Resistant hypertension acuteJuly 2024 11:18am [facility] Work Phone: 1(459) 319-619205-07-2025 NoteUT Cardiology - [facility] Subjective Zoraida Barrios is a 89 [...] presented to the emergency room at the [facility] with elevated blood pressure reading. Blood pressure [...] Take 1 ta (more content not included)... [facility]05-07-2025 NotePatient here for a 3 [...] or heart burn. Review of Systems Constitutional: Negative.[facility]04-29-2025 Evaluation note* Diagnosis Onset Date Resolution Status Admit Date Objective pulsatile tinnitus of both ear s acuteApril 2024 2:23pmResistant hypertensionacuteApril 2024 2:23pm [facility] Work Phone: 1(828) 305-649102-20-2025 NoteUT Cardiology - [facility] Subjective Zoraida Barrios is a 89 [...] presented to the emergency room at the [facility] with elevated blood pressure reading. Blood pressure [...] normal, troponin high-sensitivity 8.8, (more content not included)...[facility]02-10-2025 Evaluation note* Diagnosis Onset Date Resolution Status Admit Date Resistant hypertension acuteNovember 18, 2024 1:01pmObjective pulsatile tinnitus of both earsacute December 26, 2024 12:58pmResistant hypertensionacuteDecember 26, 2024 12:58pm [facility] Work Phone: 1(531) 378-274902-10-2025 Evaluation note* Diagnosis Onset Date Resolution Status Admit Date Resistant hypertension acuteFe2024 1:01pmChronic kidney disease, stage 3bacuteDecember 26, 2024 12:58pmObjective pulsatile tinnitus of both earsacuteDecember 26, 2024 12:58pmResistant hypertensionFormerly [facility], [facility] 2024 12:58pm [facility] Work Phone: 1(158) 876-560309-20-2024 NotePer assessment heart rates in the 50s No concerning symptoms at this time We will continue to monitor Discussed with patient to call office for any lightheadedness, dizziness, passing out she voiced understandingUnBarberton Citizens Hospital 06-28-2024 NoteHypertension is stable for her blood pressure log is very well- controlled in office is always elevated most likely related to whitecoat syndrome Continue medicines as prescribed including carvedilol, clonidine, hydralazine, losartan, spironolactone Renal function stableUnBarberton Citizens Hospital09-20-2024 Notestable [facility]09-20-2024 NoteUTP CARDIOLOGY PROGRESS NOTE HPI: [...] passing out she voiced understanding RTC 6 monthsMemorial Health System Marietta [facility] Hospital09-20-2024 NotePt is here for three month follow up. Pt denies sob, chest pain, palpatations. Pt says one of her medications makes her dizzy but she does not know which one. Review of Systems Constitutional: Positive for diaphoresis (1 episode). Neurological: Positive for excessive daytime sleepiness (intermittent). All other systems reviewed and are negative.[facility] 05-01-2024 NoteHypertension is quite variable [...] Vit D, Thyroid function and Vitamin B levels.[facility]07-24-2024 NoteCurrently stable [facility]07-24-2024 NotePt reports having noted heart rate 49-50's, and denied any significant symptoms associated. Will continue to monitor and D/W pt to call office for lightheadedness, dizziness, near syncope or syncope and she voiced understandingMemorial Health System Marietta Memorial Hospital07-24-2024 NoteUTP CARDIOLOGY PROGRESS NOTE HPI: [...] negative ED note- Patient: ZORAIDA BARRIOS MR#: [id number] : 1935 Acct:[id number] Age/Sex: 88 / F ADM Date: 04/25/24 [...] place, and time. P (more content not included)...[facility]07-24-2024 NotePatient here for follow up [facility]. [...] (intermittent). All other systems reviewed and are negative.[facility] 03-28-2024 NoteStable Continue aldactone, fluid restriction and low sodium diet Continue regular exercise and activityUnBarberton Citizens Hospital 03-28-2024 NoteWell controlled with aldactone currently no edemaUnBarberton Citizens Hospital06-20-2024 NoteHypertension is unchanged. Dietary sodium restriction. Continue current medications. Blood pressure will be reassessed in 3 months.[facility]06-20-2024 NotePatient here for 2 mo follow up hypertension and diastolic dysfunction. She had routine labs in January 2024. She denies chest pain, SOB, palpitations, and syncope. Sometimes gets lightheaded upon standing up. Review of Systems Neurological: Positive for excessive daytime sleepiness and light-headedness. All other systems reviewed and are negative.[facility] 03-28-2024 NoteUTP CARDIOLOGY PROGRESS NOTE [...] - with her evening/bedtime meds, she voiced understandingMemorial Health System Marietta Memorial Hospital08-31-2023 Evaluation note* Encounter Date Diagnosis Assessment Notes Treatment Notes Treatment Clinical Notes May, Other insomnia (ICD-10 - G47.09) Pt states the ativan does help her insomnia and bp. Denies over-sedation symptoms. May,Resistant hypertension (ICD-10 - I10)Established w [facility]. Recommend taking meds daily and keeping record and discussing bps w her provider there. Nafham Other 03-14-2023 Evaluation note* Encounter Date Diagnosis Assessment Notes Treatment Notes Treatment Clinical Notes Dec, Hypertensive nephropathy (ICD-10 - I12.9) Patient CKD is likely from hypertensive nephropathy. Patient probably has been having uncontrolled hypertension for many years. We will target blood pressure between 130-140 to preserve kidney function. Dec,hronic kidney disease, stage 3b (ICD-10 - N18.32)Likely from hypertensive nephropathy. Renal ultrasound shows small symmetric bilateral kidney sizes. Serum creatinine around 1.2 to 1.3 mg deciliter. I will check UA along with protein to creatinine ratio. I will check renal ultrasound. Avoid NSAIDs. Follow-up with the patient 3-4 months Dec,Resistant hypertension (ICD-10 - I10)Renal artery Doppler revealed increased velocity in the left side. Blood work showed hypokalemia. Patient might have hyperaldosteronism from renal artery stenosis. I will do 24-hour blood pressure monitor. I will continue same blood pressure medications. I will repeat renal arteries Doppler. I willrefer the patient to vascular surgeon if 24-hour blood pressure monitor reveals significantly better blood pressure Nafham Other [id number] Evaluation + Plan noteExtracted from:Title: ED NoteAuthor:Norma Palacios, Demond HDate:02/24/22 1. Accelerated hypertension (I10: Essential (primary) hypertension) [...] Troponin 9 Hr. XR Chest Single View [facility]05-19-2022 Hospital Discharge instructions Patient Education 02/24/2022 10:32:06 [...] care provider. This is important. Medicines Take tewh-bwm-foixivt and prescription medicines only as told by [...] 09/25/2006 Document Revised: 06/05/2019 Document Reviewed: 06/05/2019 [employer] Patient Education 2020 [employer]. Follow Up Care 02/24/2022 08:13:52 With:LACEY FREY Address: [address] [place], [place] [address]- Business (1) When:02/27/2022 10:23:00 Comments:Increase Losartan to 100 mg a day. Continue Metoprolol 50 mg a day. Make sure to take your blood pressure twice a day and follow-up with Dr. Frey tomorrow at 1 PM at her office. Return to the emergency room if your headache recurs, chest pain, dizziness or any new symptoms. [facility] AndersonEvaluation noteNo InformationNortFairmount Behavioral Health System [email or web address] Other Evaluation noteNo assessment information available [facility] Work Phone: Evaluation note* Diagnosis Onset Date Resolution Status Chronic kidney disease, stage 3b acuteResistant hypertensionacuteWeight gain, abnormalacute [facility] Work Phone: History general Narrative - Reported* Type Description Date Medical History HYPERTENSION Medical HistoryRENAL IMPAIRMENTMedical HistoryTOBACCO DEPENDENCE SYNDROME Surgical HistoryTUBAL LIGATIONSurgical HistoryCHOLECYSTECTOMYHospitalization HistorySEE ABOVE [facility] [email or web address] Other Hospital course Narrative No data available for this section [facility] AndersonHospital Discharge instructionsAmbulatory Orders* Referral to Vascular Surgery Time Frame: 12/26/24, Location: None Selected [facility] Work Phone: Hospital Discharge instructions No data available for this section [facility] Progress note No data available for this section [facility] Reason for referral (narrative)No reason for referral information availableChildren'S Hospital Of [facility] Work Phone: Summary Purpose Family History Relationship Condition Age at Onset Recorded Date/T deniz father Unknown family memberDeceasedUnknownNot SpecifiedHypertensionUnknownDeceasedUnknown sisterHypertensionUnknown Relationship Condition Age at Onset Recorded Date/T deniz father Unknown family memberDeceasedUnknownmotherHypertensionUnknownDeceasedUnknownsister HypertensionUnknown Advance Directives Advance Directive Response Recorded Date/ Time Advance Directives No January 02, 024 11:20am Advance Directive Response Recorded Date/ Time Advance Directives No January 02 10:20am Chief Complaint and Reason for Visit Chief Complaint BP Chief Complaint concerns about weigh t Reason for Visit Chronic kidney disea se, stage 3b Resistant hypertension Weight gain, abnormal Chief Complaint concerns about weigh t medication dicussionReason for VisitChronic kidney disease, stage 3b Resistant hypertension Weight gain, abnormal [...] 1:20pm Pneumonia July 14, 2025 11 :19am Chief Complaint Admit Date Wellness May 12, [...] Pilonidal cyst July 30, 2025 1 1:17am Additional Source Comments INFORMATION SOURCE (unrecogn ized section and content) DATE CREATED AUTHOR 03/05/2022 [facility] DATE CREATED AUTHOR AUTHOR'S ORGANIZ ATION 12/13/2022 [facility] DATE CREATED AUTHOR AUTHOR'S ORGANIZ ATION 02/15/2025 [facility] REASON FOR VISIT (unrecogniz ed section and content) refillRENAL IMPAIRMENTNo Inf ormationNo InformationNo InformationrefillRefillRefillrefillfollow up Care Teams (unrecognized sec tion and content) Team Status: Active Member Role Status Dates Lacey Frey MD Primary Care Provider Active Team Status: Inactive Member Role Status Dates Lacey Frey MD Primary Care Provider Active Start: May 12, 2025 End: May 12, 2025Lacey Frey MDAttending ProviderActiveStart: May 12, 2025 End: May 12, 2025 Team Status: Active Member Role Status Dates Lacey Frey MD Primary Care Provider Active Start: July 07, 2025 Dennys Chris Aguilar , DOAttending ProviderActiveStart: July 07, 2025 Team Status: Active Member Role Status Kenji Frey MD Primary Care Provider Active Start: July 08, 2025 Valencia Wilkinson CMAAttending ProviderActiveStart: July 08, 2025 Team Status: Active Member Role Status Kenji Frey MD Primary Care Provider Active Start: July 10, 2025 James Wiley DOAttending ProviderActiveStart: July 10, 2025 Team Status: Active Member Role Status Dates Lacey Frey MD Primary Care Provider Active Start: July 13, 2025 Maria Isabel Hurtado MDAttending ProviderActiveStart: July 13, 2025 Team Status: Inactive Member Role Status Kenji Frey MD Primary Care Provider Active Start: July 14, 2025 End: July 14, 2025Lacey Frey MDAttending ProviderActiveStart: July 14, 2025 End: July 14, 2025 Team Status: Active Member Role Status Kenji Frey MD Primary Care Provider Active Start: April 06, 2025 REGINO Norman-CAttending ProviderActiveStart: April 06, 2025 Team Status: Active Member Role Status Kenji Frey MD Primary Care Provider Active Start: April 07, 2025 Valencia Wilkinson CMAAttending ProviderActiveStart: April 07, 2025 Team Status: Inactive Member Role Status Kenji Frey MD Primary Care Provider Active Start: April 14, 2025 End: April 14, 2025Lacey Frey MDAttending ProviderActiveStart: April 14, 2025 End: April 14, 2025 Team Status: Inactive Member Role Status Kenji Frey MD Primary Care Provide r, Attending Provider Active Start: November 18, 2024 End: November 18, 2024 Team Status: Active Member Role Status Dates Rd Blakely Jr, MD Primary Care Provider Active Start: December 28, 2023 Bernardo Macarioending ProviderActiveStart: December 28, 2023 Team Status: Inactive Member Role Status Kenji Frey MD Primary Care Provide r, Attending Provider Active Start: January 08, 2024 End: January 08, 2024 Team Status: Active Member Role Status Dates Lacey Frey MD Primary Care Provider Active Start: April 25, 2024 Tatiana Romero ProviderActiveStart: April 25, 2024 Team Status: Inactive Member [...] Care Provider Active Start: May 11, 2024 Sherry Verdeunc health [facility] ProviderActiveStart: May 11, 2024 Team Status: Active Member [...] Care Provider Active Start: December 23, 2024 Lon Cummins ProviderActiveStart: December 23, 2024 Team Status: Active Member Role Status Dates Lacey Frey MD Primary Care Provider Active Start: December 24, 2024 Maria Isabel Hurtado MDAselect medical [facility] ProviderActiveStart: December 24, 2024 Team Status: Inactive Member [...] Start: February 04, 2025 End: February 04, 2025Robert Macario ProviderActiveStart: February 04, 2025 End: February 04, 2025 Team Status: Active Member Role/Relationship Status Kenji Frey MD Primary Care Provider Active Team Status: Inactive Member Role/Relationship Status Dates Lacey Frey MD Primary Care Provider Active Start: May 12, 2025 End: May 12, 2025Lacey Frey NNAMDIttending ProviderActiveStart: May 12, 2025 End: May 12, 2025 Team Status: Active Member Role/Relationship Status Dates Lacey Frey MD Primary Care Provider Active Start: July 07, 2025 Dennys Aguilar , DOAttending ProviderActiveStart: July 07, 2025 Team Status: Active Member Role/Relationship Status Dates Lacey Frey MD Primary Care Provider Active Start: July 08, 2025 Valencia Minh , CMAAttending ProviderActiveStart: July 08, 2025 Team Status: Active Member Role/Relationship Status Dates Lacey Frey MD Primary Care Provider Active Start: July 10, 2025 James Daisha Wiley , DOAttending ProviderActiveStart: July 10, 2025 Team Status: Active Member Role/Relationship Status Dates Lacey Frey MD Primary Care Provider Active Start: July 13, 2025 Maria Isabel Maria Antonia Hurtado MDAttending ProviderActiveStart: July 13, 2025 Team Status: Inactive Member Role/Relationship Status Dates Lacey Frey MD Primary Care Provider Active Start: July 14, 2025 End: July 14, 2025Lacey Frey NNAMDIttending ProviderActiveStart: July 14, 2025 End: July 14, 2025 Team Status: Inactive Member Role/Relationship Status Dates Lacey Frey MD Primary Care Provider Active Start: July 30, 2025 End: July 30, 2025Lacey Frey MDAttending ProviderActiveStart: July 30, 2025 End: July 30, 2025 Goals (unrecognized section and content) Goals [...] BE BASED ON THE PRIMARY CLINICAL RECORDS. [facility]. provides no warranty or guarantee of the accuracy or completeness of information in this document.
== END 2025-08-06 12:29 | disposition home or self-care (01) ==
LOC: CT 12:28
PROVIDERS: PCP Family Medicine; Visit Provider Family Medicine
DX: R91.8 Other nonspecific abnormal finding of lung field (principal); R93.89 Abnormal findings on diagnostic imaging of other specified body structures
CPT/HCPCS: 71260; Q9967

== ENCOUNTER 2025-08-09 14:12 | Emergency (ER) | payer MEDICARE, SELFPAY ==
[2025-08-09] VITALS (32 sets, daily range): BP systolic 184–249; BP diastolic 78–107; PULSE 52–63; TEMP 36.7; O2SAT 96; BMI 23.4
--- OUTSIDE RECORDS SUMMARY | 2025-08-09 14:20 | XMS_ITS | CCD ---
Author Organization [facility] Care Team Providers Care Policy Intern Name Role Phone LACEY FREY Primary Care Physician [phone] SAURABH Puentes, DR RUBIO Consulting Unavailable HAY [...] MR ISATU Consulting Unavailable REINJERSON, DR GEORGIE Barthoolmew Attending Unavailabl e REINECK, DR GEORGIE Bartholomew Admitting Unavailabl e FREY, DR LACEY Ashton Primary Care Unavailable FREY, DR LACEY Ashton Primary Care Unavailable MARKER ., DR FISCHER Admitting Unavailable MARKER ., DR FSICHER Attending Unavailable MARKER ., DR FISCHER Consulting Unavailable TK, DR LACEY Ashton Primary Care Unavailable YOAV ., ASTRID Admitting Unavailable YOAV ., ASTRID Attending Unavailable YOAV ., ASTRID Consulting Unavailable ALGHOTHANI, MOHAMAD Admitting Unavailable ALGHOCARLEYANI, MOHNATD Attending Unavailable TK, DR LACEY Ashton Primary Care Unavailable CAMPBELL HALL, DR BERTHA Logan Consulting Unavailable ALGHOTHANI, MOHAMAD Consulting Unavailable Lacey Frey Unavailable Adolfo Watsonaicha Unavailable MISSY BAUER Attending Unavailable VIRGILIO, AALIYAH Attending Unavailable VIRGILIO, AALIYAH Attending Unavailable VIRGILIO, AALIYAH Attending Unavailable EDVIN LISA Attending Unavailable Lacey Frey MD Primary Care Provider [phone] Lacey Frey MD Attending Provider [phone] Daphne Emanuel PA-C Attending Provider Unavailable Valencia Wilkinson CMA Attending Provider UnavailLacey Rodriguez MD Primary Care Provider [phone] Lacey Frey MD Attending Provider Lacey Frey MD Primary Care Provider Lacey Frey MD Attending Provider Dennys Aguilar DO Attending Provider [phone] Valencia Wilkinson CMA Attending Provider Unavaila abebe Wiley DO James Daisha Attending Provider Maria Isabel Hurtado MD Attending Provider [phone] Allergies Allergy ClassificationReported Allergen(s)Allergy TypeDate of OnsetReaction(s) Facility (2 sources)Sulfonamides (Antibiotic); Translations: [sulfa drugs]Drug allergy [facility] (2 sources)Sulfonamides (Antibiotic)Drug allergy (disorder)[phone] ([facility] sources)Substance with sulfonamide structure and antibacterial mechanism of action (substance)[facility] Other (1 source)Spironolactone; Translations: [SPIRONOLACTONE]Drug Cqsufiy50-49-8700 [facility] Repository (1 source)Sulfonamides (Antibiotic); Translations: [SULFA (SULFONAMIDE ANTIBIOTICS)]Propensity to adverse reactions to drug (disorder)06-22-2022 [facility] Repository Medications Current Medications MedicationDrug Class(es)DatesSig (Normalized)Sig (Original)amLODIPine 5 mg oral tablet (10 sources)Dihydropyridine Calcium Channel Blockertake 1 tablet by mouth every twenty-four hoursbusPIRone hydrochloride 10 mg oral tablet (1 source)Start: 66-07-4994gkpm 1 tablet by mouth twice dailyBuspirone 10 [...] meal/food Complies with drug therapyStart: 01-08-2024 End: 27-57-2706ouvd 1 tablet by mouth twice daily at mealtimetake 1 tablet by mouth every twelve hourscloNIDine hydrochloride 0.2 mg oral tablet (20 sources)Central alpha-2 Adrenergic AgonistStart: 04-14-2025 End: 89-71-6160scmf 1 tablet by mouth twice dailyClonidine Hcl 0.2 mg tablet Active 0.2 MG PO Twice daily 180 0 June 10, 2025 2:25pm Complies with drug therapyStart: 11-18-2024 End: 26-76-0829wlgj 1 tablet by mouth once daily in the morningStart: 01-08-2024 End: 33-56-6034mpfv 1 tablet by mouth twice dailytake 1 tablet by mouth every twelve hoursfurosemide 20 mg oral tablet (10 sources)Loop DiuretichydrALAZINE hydrochloride 50 mg oral tablet (20 sources)Arteriolar VasodilatorStart: 93-95-6603ykrl 2 tablets by mouth three times dailyHydralazine 50 mg tablet Active 100 MG PO Three times daily February 04, 2025 4:03pm Complies with drug therapyStart: 12-26-2024 End: 46-19-4535eiga 2 tablets by mouth twice dailyHydralazine 50 mg tablet Discontinued 100 MG PO Twice daily December 26, 2024 1:13pm February 04, 2025 4:04pmStart: 11-18-2024 End: 64-06-3423Koeoadjbmci 50 mg tablet Discontinued 75 MG PO Twice daily November 18, 2024 2:39pm December 26, 2024 1:15pmStart: 01-05-2024 End: 66-23-4177xqio 2 tablets by mouth three times dailyHydralazine 50 mg tablet Discontinued 100 MG PO Three times daily January 05, 2024 12:00am 2024 2:40pmStart: 29-73-8169fwww 100 mg by mouth three times dailyHydralazine Active 100 MG PO Three times daily January 05, 2024 12:00amtake 2 tablets by mouth every eight hourshydrALAZINE HCl 50 MG 2 tablet with food Orally Three times a day Activelosartan potassium 50 mg oral tablet (20 sources)Angiotensin 2 Receptor BlockerStart: 16-92-7086dovi 1 tablet by mouth once dailyLosartan 50 mg tablet Active 50 MG PO Daily April 14, 2025 12:00am Complies with drug therapyStart: 01-08-2024 End: 94-04-2358kenq 1 tablet by mouth once dailyLosartan 100 mg tablet Discontinued 1 TAB PO Daily January 08, 2024 12:00am February 04, 2025 4:03pm F reeTextSi tablet Orally Once a day; Note: Source Status: Not-Taking\PRN; Provider: Eros Peñaloza ( )take 1 tablet by mouth every twenty- four hoursmetroNIDAZOLE 500 mg oral tablet (1 source)Nitroimidazole AntimicrobialStart: 96-98-5197tlkk 1 tablet by mouth twice dailyMetronidazole 500 mg tablet Active 500 MG PO Twice daily July 30, 2025 12:00am Complies with drug therapymicroencapsulated potassium chloride 10 meq extended release oral tablet (10 sources)take 1 tablet by mouth once daily at mealtime as needed Completed/Discontinued Medications MedicationDrug Class(es)DatesSig (Normalized)Sig (Original)aspirin 81 mg chewable tablet (6 sources)Platelet Aggregation Inhibitor, Nonsteroidal Anti-inflammatory Drug Start: 12-26-2024 End: 22-20-9229vjpc 1 tablet by mouth once dailyAspirin 81 mg tablet,chewable Discontinued 81 MG PO Daily December 26, 2024 12:00am May 1251:26pm atorvastatin 40 mg oral tablet (6 sources)HMG-CoA Reductase InhibitorStart: 12-26-2024 End: 31-65-3800bisu 1 tablet by mouth once dailyAtorvastatin 40 mg tablet Discontinued 40 MG PO Daily December 26, 2024 12:00am May 12, 2025 1:26pm hydroCHLOROthiazide 25 mg oral tablet (7 sources)Thiazide DiureticStart: 11-18-2024 End: 77-30-1895igbf 1 tablet by mouth once dailyHydrochlorothiazide 25 mg tablet Discontinued 25 MG PO Daily 07 11November 18, 2024 1:00am February 04, 2025 4:02pmlevothyroxine sodium 0.05 mg oral tablet (19 sources)l-ThyroxineStart: 04-14-2025 End: 70-98-3106mojr 1 tablet by mouth once dailyLevothyroxine 50 mcg tablet Discontinued 50 MCG PO Daily April 14, 2025 12:00am May 12, 2025 1:26pm Start: 05-17-2024 End: 25-75-8393iaqk 1 tablet by mouth once dailyLevothyroxine 50 mcg tablet Discontinued 50 MCG PO Daily 07 11June 19, 2024 11:42am 2023 2:12pmLORazepam 0.5 mg oral tablet (20 sources)BenzodiazepineStart: 01-05-2024 End: 40-26-5427rzww 1 tablet by mouth twice daily as neededLorazepam 0.5 mg tablet Discontinued 0.5 MG PO Twice daily as needed January 05, 2024 12:00am 2023 11:51amStart: 69-57-0503tblb 1 tablet by mouth twice daily as [...] doesn't answer our phone calls. May, ActiveStart: 29-36-2716euap 1 tablet by mouth once daily as neededLORazepam 0.5 MG TAKE 1 TABLET BY MOUTH EVERY DAY NEEDED for 30 days Apr, ActiveStart: 18-36-0351vnpt 1 tablet by mouth once daily as neededLORazepam 0.5 MG TAKE 1 TABLET BY MOUTH EVERY DAY NEEDED for 30 days Mar, ActiveStart: 20-49-4582qrvn 1 tablet by mouth once daily as needed LORazepam 0.5 MG TAKE 1 TABLET BY MOUTH EVERY DAY NEEDED for 30 days Jan, ActiveStart: 06-22-0304zgik 1 tablet by mouth once daily as neededLORazepam 0.5 MG TAKE 1 TABLET BY MOUTH EVERY DAY NEEDED for 30 days Nov, Activespironolactone 25 mg oral tablet (20 sources)Aldosterone AntagonistStart: 01-08-2024 End: 53-05-2147zehy 1 tablet by mouth once daily Problems Active Problems Problem ClassificationProblemDateDocumented DateEpisodic/ChronicAnxiety disorders (3 sources)Anxiety disorder, unspecified; Translations: [Anxiety]Onset: [id number]xwg kidney disease (20 sources)Chronic kidney disease stage 3B ; Translations: [Chronic kidney disease, stage 3b]68-61-3962HnphvmfTnqswymw mellitus without complication (9 sources)Increased glucose level; Translations: [Other abnormal glucose] 57-16-7863IuwqbojzAbqmrxdyz hypertension (20 sources)Essential hypertension; Translations: [Essential (primary) hypertension]Onset: 18-11-2401StykwkyHvijn valve disorders (1 source)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; Translations: [RHEUMATIC D/O AORTIC TRICUSPID VALV]Onset: 48-88-2950EcgsnheUwxivflsftub with complications and secondary hypertension (20 sources)Hypertensive urgency; Translations: [Hypertension secondary to other renal disorders]Onset: 75-38-5282OtqhnymIwutcqzmiok chest pain (5 sources)Other chest pain; Translations: [Chest pain, unspecified]Onset: 25-98-2360ObowhsoaQcmph aftercare (1 source)Other skilled nursing (current) drug therapy; Translations: [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 THERAPY]Onset: 93-30-2971QzibevptMyhij and ill-defined heart disease (3 sources)Other ill-defined heart diseases; Translations: [OTHER ILL-DEFINED HEART DISEASES]Onset: 14-26-4172AtdxhpcMfsfh ear and sense organ disorders (7 sources)Bilateral objective pulsatile tinnitus of ears; Translations: [Pulsatile tinnitus, bilateral]92-35-8729EfjeptdwTsamm ear and sense organ disorders (2 sources)Pulsatile tinnitus, bilateral; Translations: [Objective tinnitus] 56-64-3650DfdhqbphLbtuj lower respiratory disease (3 sources)Shortness of breath; Translations: [SHORTNESS OF BREATH]Onset: 99-38-7993OpdxkebgQewlf nutritional; endocrine; and metabolic disorders (9 sources)Abnormal weight gain; Translations: [Abnormal weight gain]05-07-2024 EpisodicOther nutritional; endocrine; and metabolic disorders (2 sources)Abnormal weight gain; Translations: [Abnormal weight gain]05-07-2024 EpisodicOther screening for suspected conditions (not mental disorders or infectious disease) (1 source)Abnormal findings on diagnostic imaging of other specified body structures; Translations: [Abnormalchest x-ray]37-09-3611FvyymtdLsrtw screening for suspected conditions (not mental disorders or infectious disease) (7 sources)Raised TSH level; Translations: [Other specified abnormal findings of blood chemistry]64-02-1838PdafnkykQpdggdmzu (except that caused by tuberculosis or sexually transmitted disease) (4 sources)Pneumonia; Translations: [Pneumonia, unspecified organism]07-14-2025 EpisodicResidual codes; unclassified (11 sources)Insomnia; Translations: [Other insomnia]35-38-1252BezbuhlYpyjncqu codes; unclassified (1 source)Other insomniaChronicResidual codes; unclassified (4 sources)Procedure and treatment not carried out due to patient leaving prior to being seen by health care provider; Translations: [PROC AND TX NOT CARRIED OUT PT LEAVE]Onset: 20-00-3110JqaclbnsWsvadokp codes; unclassified (1 source)Acquired absence of other specified parts of digestive tract; Translations: [ACQ ABSENCE OTH PART DIGESTV TRACT]Onset: 10-94-0238HxyslhnnFjty and subcutaneous tissue infections (2 sources)Pilonidal cyst; Translations: [Pilonidal cyst without abscess] 70-72-9304UkkskyrmRlqbeejly-related disorders (13 sources)Nicotine dependence, cigarettes, uncomplicated; Translations: [Tobacco dependence syndrome]Onset: 480098-28-5587VsovyozOktkvhx (9 sources)Syncope; Translations: [Syncope and collapse]56-79-1724Afbpwvet Unclassified (1 source)CONTACT W/AND (SUSP) EXPOS COVID-19; Translations: [CONTACT W/AND (SUSP) EXPOS COVID-19]Onset: 09-28-2022 Past or Other Problems Problem ClassificationProblemDateDocumented DateEpisodic/ChronicCardiac dysrhythmias (2 sources)Bradycardia, unspecified; Translations: [Bradycardia, unspecified] Onset: 86-03-5013KimllpnhRfnxvto kidney disease (1 source)Chronic kidney diseaseComplications of surgical procedures or medical care (2 sources)Hypotension due to drugs; Translations: [Hypotension due to drugs] Onset: 37-90-6661WnvxythcKzulpbsp codes; unclassified (3 sources)Localized edema; Translations: [LOCALIZED EDEMA]Onset: 07-20-2022 Episodic Results Test NameValueInterpretationReference RangeFacilityBasophils Auto (Bld) [#/Vol] Ordered By: Albert Bergman on 87-72-0561Oapvheybk (Bld) [#/Vol]0.2 10 3/uLHigh 0.0-0.1FGerman HospitalBasophils/100 WBC Auto (Bld)Ordered By: Albert Bergman on 56-02-5142Oosekvsum/100 WBC (Bld)2.8 %High0.2-2.0[facility] - WestEosinophils/100 WBC Auto (Bld)Ordered By: Albert Bergman on 63-56-0071Chxlrajtgrq/100 WBC (Bld)6.6 %0.9-7.0[facility] - WestErythrocyte distribution width Auto (RBC) [Ratio]Ordered By: Albert Bergman on 90-52-4387Pkrszkfgeww distribution width (RBC) [Ratio]14.6 %11.0-15.0 [facility] - WestGlobulin Calc (S) [Mass/Vol]Ordered By: Maria Isabel Hurtado on 15-20-0421Zrquiewc (S) [Mass/Vol]3.0 g/dLLake County Memorial Hospital - WestGlomerular filtration rate (GFR) estimation in non- AmericanOrdered By: Albert Bergman on 85-75-3465OFY/1.73 sq M.predicted among non-blacks MDRD (S/P/Bld) [Vol rate/Area]53 mL/min/{1.73_m2}Low>=60 mL/min/1.73m 2FGerman HospitalHematocrit Auto (Bld) [Volume fraction]Ordered By: Albert Bergman on 02-90-5343Yeogptnlha (Bld) [Volume fraction]42.6 %36.0-48.0 [facility] WestHemoglobin [Mass/volume] in BloodOrdered By: Albert Bergman on 36-47-8997Eotembfibm (Bld) [Mass/Vol]13.9 g/dL12.0-16.0 [facility] - WestLaboratory - Chemistry and Chemistry - challengeOrdered By: Albert Bergman on 39-56-1190Cjncels [Mass/Vol]9.9 mg/dL 8.5-10.1FGerman HospitalChloride [Moles/Vol]105 mmol/L98-107 [facility] - WestCO2 [Moles/Vol]28.0 mmol/L21.0-32.0[facility] WestCreatinine [Mass/Vol]0.98 mg/dL0.55-1.02[facility] - WestGFR/1.73 sq M.predicted MDRD (S/P/Bld) [Vol rate/Area] mL/min/{1.73_m2}>=60 mL/min/1.73m 2FGerman HospitalGlucose [Mass/Vol]149 mg/xCJvsh65-699YoilqydruLake County Memorial Hospital - WestPotassium [Moles/Vol]3.8 mmol/L3.5-5.1FAdena Fayette Medical Centerodium [Moles/Vol] 141 mmol/M560-310BlraixdgeLake County Memorial Hospital - WestUrea nitrogen [Mass/Vol]22.0 mg/dLHigh7.0-18.0[facility] - WestUrea nitrogen/Creatinine [Mass ratio]22.4 mg/mgLake County Memorial Hospital - WestLaboratory - Chemistry and Chemistry - challengeOrdered By: Maria Isabel Hurtado on 97-56-0659Agertcq [Mass/Vol]3.3 g/dLLow3.4-5.0[facility] - WestALP [Catalytic activity/Vol]50 U/D45-648EbhhmxdjaLake County Memorial Hospital - WestALT [Catalytic activity/Vol]11 U/LLow 14-59[facility] - WestAST [Catalytic activity/Vol]14 U/DJwv59-42 [facility] - WestBilirubin [Mass/Vol]0.6 mg/dL0.2-1.0[facility] - WestProtein [Mass/Vol]6.3 g/dLLow6.4-8.2FGerman HospitalLaboratory - Hematology and Cell countsOrdered By: Albert Bergman on 36-56-8815Ucyxalsb granulocytes/100 WBC (Bld)1.2 %High0.0-0.5FGerman HospitalLeukocytes [#/volume] corrected for nucleated erythrocytes in Blood by Automated counOrdered By: Albert Bergman on 07-13-2025 WBC corrected for nucl RBC Auto (Bld) [#/Vol]6.7 10 3/uL4.0-11.0[facility] - WestLymphocytes Auto (Bld) [#/Vol]Ordered By: Albert Bergman on 97-16-4585Xjrrpfsfjqk (Bld) [#/Vol]2.2 10 3/uL1.2-3.8[facility] - WestLymphocytes/100 WBC Auto (Bld)Ordered By: Albert Bergman on 12-88-4949Xhpnkcluqts/100 WBC (Bld)33.4 %20.5-60.0[facility] BeachwoodH Auto (RBC) [Entitic mass]Ordered By: Albert Bergman on 21-02-6644EZR (RBC) [Entitic mass]29.3 pg26.7-34.0[facility] - WestMCHC Auto (RBC) [Mass/Vol]Ordered By: Albert Bergman on 51-84-2943PRHF (RBC) [Mass/Vol]32.6 g/dL29.9-35.2FGerman HospitalMCV Auto (RBC) [Entitic vol] Ordered By: Albert Bergman on 48-91-9787IMY (RBC) [Entitic vol]89.9 fL81.0-99.0 [facility] - WestMonocytes Auto (Bld) [#/Vol]Ordered By: Albert Bergman on 52-46-1787Vxzexcqpd (Bld) [#/Vol]0.7 10 3/uL0.3-0.8[facility] WestMonocytes/100 WBC Auto (Bld)Ordered By: Albert Bergman on 48-42-9634Rokxyjhkj/100 WBC (Bld)10.3 %1.7-12.0[facility] Neutrophils Auto (Bld) [#/Vol]Ordered By: Albert Bergman on 03-36-2795Fcygxnnfcku (Bld) [#/Vol]3.1 10 3/uL1.4-6.5FGerman HospitalNeutrophils/100 WBC Auto (Bld)Ordered By: Albert Bergman on 29-15-5801Xwdtdzkrvle/100 WBC (Bld) 45.7 %43.0-75.0[facility] - WestNo Panel InformationOrdered By: Albert Bergman on 46-17-8988Gdsuflvchhq # (Auto)0.4 10 3/uL0.0-0.7FGerman HospitalImmature Granulocyte # (Auto)0.08 10 3/uLHigh0.00-0.03 [facility] WestTroponin I High Sensitivity8.5 pg/mL4.0-51.3 [facility] - WestComment on above:CUT-OFF POINTS HAVE BEEN ESTABLISHED BASED [...] (Bld) [Entitic vol]Ordered By: Albert Bergman on 87-32-5929Jifmmbqn mean volume (Bld) [Entitic vol]11.2 fL9.5-13.5FGerman Hospital Platelets Auto (Bld) [#/Vol]Ordered By: Albert Bergman on 21-66-2738Beqlhgllm (Bld) [#/Vol]118 10 3/jZZfl667-028XzxuhahqtLake County Memorial Hospital - WestRBC Auto (Bld) [#/Vol]Ordered By: Albert Bergman on 08-33-2959FPJ (Bld) [#/Vol]4.74 10 6/uL4.20-5.40[facility] Centererum or plasma albumin/globulin mass ratioOrdered By: Maria Isabel Hurtado on 00-78-4134Gajsecw/Globulin [Mass ratio]1.1 {ratio}[facility] Centererum or plasma anion gap determination Ordered By: Albert Bergman on 84-35-4950Zchsu gap [Moles/Vol]11.8 mmol/LFGerman HospitalBasophils Auto (Bld) [#/Vol]Ordered By: James Wiley on 64-47-9740Sfbzvrcsa (Bld) [#/Vol]0.2 10 3/uLHigh0.0-0.1FGerman HospitalBasophils/100 WBC Auto (Bld)Ordered By: James Wiley on 07-10-2025 Basophils/100 WBC (Bld)2.8 %High0.2-2.0[facility] Eosinophils/100 WBC Auto (Bld)Ordered By: James Wiley on 44-48-9156Jhqvqjuaujo/100 WBC (Bld)5.4 %0.9-7.0[facility] - WestErythrocyte distribution width Auto (RBC) [Ratio]Ordered By: James Wiley on 77-94-6739Yfkfkqyuxqb distribution width (RBC) [Ratio]14.7 %11.0-15.0[facility] Globulin Calc (S) [Mass/Vol]Ordered By: James Wiley on 53-85-8113Xdgsgtjj (S) [Mass/Vol]3.1 g/dLLake County Memorial Hospital - WestGlomerular filtration rate (GFR) estimation in non- AmericanOrdered By: James Wiley on 07-10-2025 GFR/1.73 sq M.predicted among non-blacks MDRD (S/P/Bld) [Vol rate/Area]56 mL/min/{1.73_m2}Low>=60 mL/min/1.73m 2FGerman Hospital Hematocrit Auto (Bld) [Volume fraction]Ordered By: James Wiley on 07-10-2025 Hematocrit (Bld) [Volume fraction]43.1 %36.0-48.0[facility] - WestHemoglobin [Mass/volume] in BloodOrdered By: James Wiley on 07-10-2025 Hemoglobin (Bld) [Mass/Vol]14.0 g/dL12.0-16.0[facility] Laboratory - Chemistry and Chemistry - challengeOrdered By: James Wiley on 84-37-9400Itlyoan [Mass/Vol]3.7 g/dL3.4-5.0[facility] WestALP [Catalytic activity/Vol]56 U/K84-233IxpahuullLake County [facility] Hospital - WestALT [Catalytic activity/Vol]12 U/ELro49-32RegpnhopvLake County Memorial Hospital - WestAST [Catalytic activity/Vol]21 U/X48-77Zxajhlbcm Regional Medical CenterBilirubin [Mass/Vol]0.6 mg/dL0.2-1.0[facility] WestCalcium [Mass/Vol]9.5 mg/dL8.5-10.1FGerman HospitalChloride [Moles/Vol]105 mmol/L 98-107[facility] - WestCO2 [Moles/Vol]26.4 mmol/L21.0-32.0 [facility] WestCreatinine [Mass/Vol]0.94 mg/dL0.55-1.02 [facility] - WestGFR/1.73 sq M.predicted MDRD (S/P/Bld) [Vol rate/Area]mL/min/{1.73_m2}>=60 mL/min/1.73m 2FGerman Hospital Glucose [Mass/Vol]114 mg/oMPvir57-435VkijzwgynLake County Memorial Hospital - WestPotassium [Moles/Vol]3.6 mmol/L3.5-5.1FGerman HospitalProtein [Mass/Vol] 6.8 g/dL6.4-8.2FAdena Fayette Medical Centerodium [Moles/Vol]142 mmol/L 136-145[facility] - WestUrea nitrogen [Mass/Vol]17.0 mg/dL 7.0-18.0[facility] - WestUrea nitrogen/Creatinine [Mass ratio] 18.1 mg/mgLake County Memorial Hospital - WestLaboratory - Hematology and Cell countsOrdered By: James Wiley on 11-26-2149Qkywplkp granulocytes/100 WBC (Bld)0.4 % 0.0-0.5FGerman HospitalLeukocytes [#/volume] corrected for nucleated erythrocytes in Blood by Automated counOrdered By: James Wiley on 98-00-9748MPN corrected for nucl RBC Auto (Bld) [#/Vol]6.7 10 3/uL4.0-11.0 [facility] - WestLymphocytes Auto (Bld) [#/Vol]Ordered By: James Wiley on 81-31-1613Wlkhabdzjth (Bld) [#/Vol]1.7 10 3/uL1.2-3.8[facility] - WestLymphocytes/100 WBC Auto (Bld)Ordered By: James Wiley on 07-10-2025 Lymphocytes/100 WBC (Bld)25.6 %20.5-60.0[facility], BeachwoodH Auto (RBC) [Entitic mass]Ordered By: James Wiley on 57-85-6940EHP (RBC) [Entitic mass]29.5 pg26.7-34.0[facility] - WestMCHC Auto (RBC) [Mass/Vol] Ordered By: James Wiley on 51-34-0775KNZF (RBC) [Mass/Vol]32.5 g/dL29.9-35.2 [facility] - WestMCV Auto (RBC) [Entitic vol]Ordered By: James Wiley on 30-55-3930GNB (RBC) [Entitic vol]90.9 fL81.0-99.0[facility] - WestMonocytes Auto (Bld) [#/Vol]Ordered By: James Wiley on 07-10-2025 Monocytes (Bld) [#/Vol]0.9 10 3/uLHigh0.3-0.8[facility] Monocytes/100 WBC Auto (Bld)Ordered By: James Wiley on 47-89-5543Ohatpsqpm/100 WBC (Bld)13.2 %High1.7-12.0[facility] - WestNeutrophils Auto (Bld) [#/Vol]Ordered By: James Wiley on 78-84-3552Dikwgibodes (Bld) [#/Vol]3.5 10 3/uL 1.4-6.5FGerman HospitalNeutrophils/100 WBC Auto (Bld)Ordered By: James Wiley on 87-12-3534Adoqadlgbrc/100 WBC (Bld)52.6 %43.0-75.0[facility] - WestNo Panel InformationOrdered By: James Wiley on 07-10-2025 Eosinophils # (Auto)0.4 10 3/uL0.0-0.7FGerman HospitalImmature Granulocyte # (Auto)0.03 10 3/uL0.00-0.03[facility] Platelet mean volume Auto (Bld) [Entitic vol]Ordered By: James Wiley on 07-10-2025 Platelet mean volume (Bld) [Entitic vol]10.9 fL9.5-13.5FGerman HospitalPlatelets Auto (Bld) [#/Vol]Ordered By: James Wiley on 07-10-2025 Platelets (Bld) [#/Vol]114 10 3/tICfr902-850FkvmtynhwLake County Memorial Hospital - WestRBC Auto (Bld) [#/Vol]Ordered By: James Wiley on 62-04-9526ODV (Bld) [#/Vol]4.74 10 6/uL4.20-5.40[facility] Centererum or plasma albumin/globulin mass ratioOrdered By: James Wiley on 45-33-3609Vdulusf/Globulin [Mass ratio]1.2 {ratio}[facility] Centererum or plasma anion gap determination Ordered By: James Wiley on 82-67-6943Ehawi gap [Moles/Vol]14.2 mmol/LFGerman HospitalBasophils Auto (Bld) [#/Vol]Ordered By: Dennys Aguilar on 71-58-5764Cyauoagtr (Bld) [#/Vol]0.2 10 3/uLHigh0.0-0.1FGerman HospitalBasophils/100 WBC Auto (Bld)Ordered By: Dennys Aguilar on 07-07-2025 Basophils/100 WBC (Bld)2.6 %High0.2-2.0[facility] Eosinophils/100 WBC Auto (Bld)Ordered By: Dennys Aguilar on 07-07-2025 Eosinophils/100 WBC (Bld)5.4 %0.9-7.0[facility] Erythrocyte distribution width Auto (RBC) [Ratio]Ordered By: Dennys Aguilar on 73-80-1280Kysyxotavsa distribution width (RBC) [Ratio]14.6 %11.0-15.0[facility] - WestGlomerular filtration rate (GFR) estimation in non- AmericanOrdered By: Dennys Aguilar on 18-36-2282IIF/1.73 sq M.predicted among non-blacks MDRD (S/P/Bld) [Vol rate/Area]49 mL/min/{1.73_m2}Low>=60 mL/min/1.73m 2Fire[facility] Regional Medical CenterHematocrit Auto (Bld) [Volume fraction]Ordered By: Dennys Aguilar on 50-87-0709Kmhkhsfgmz (Bld) [Volume fraction] 44.7 %36.0-48.0[facility] - WestHemoglobin [Mass/volume] in BloodOrdered By: Dennys Aguilar on 15-73-2714Tygmsxbdkf (Bld) [Mass/Vol]14.4 g/dL 12.0-16.0[facility] WestLaboratory - Chemistry and Chemistry - challengeOrdered By: Dennys Aguilar on 45-35-4971Rnbfcma [Mass/Vol]9.5 mg/dL 8.5-10.1FGerman HospitalChloride [Moles/Vol]104 mmol/L98-107 [facility] [facility] WestCO2 [Moles/Vol]27.2 mmol/L21.0-32.0[facility] WestCreatinine [Mass/Vol]1.05 mg/dLHigh0.55-1.02[facility] WestGFR/1.73 sq M.predicted MDRD (S/P/Bld) [Vol rate/Area]60 mL/min/{1.73_m2}>=60 mL/min/1.73m 2FGerman HospitalGlucose [Mass/Vol]113 mg/eLClwq47-647XrijrvadpLake County Memorial Hospital - WestNatriuretic peptide B (Bld) [Mass/Vol]418.0 pg/mL<=1800.0[facility] Potassium [Moles/Vol]3.8 mmol/L3.5-5.1FAdena Fayette Medical Centerodium [Moles/Vol]141 mmol/F026-994YkhhprbkhLake County Memorial Hospital - WestUrea nitrogen [Mass/Vol]17.0 mg/dL7.0-18.0[facility] WestUrea nitrogen/Creatinine [Mass ratio]16.2 mg/mgLake [facility] Laboratory - Hematology and Cell countsOrdered By: Dennys Aguilar on 07-07-2025 Immature granulocytes/100 WBC (Bld)0.4 %0.0-0.5FGerman Hospital Leukocytes [#/volume] corrected for nucleated erythrocytes in Blood by Automated counOrdered By: Dennys Aguilar on 95-94-0578XQA corrected for nucl RBC Auto (Bld) [#/Vol]8.3 10 3/uL4.0-11.0[facility] - WestLymphocytes Auto (Bld) [#/Vol]Ordered By: Dennys Aguilar on 29-81-8518Xrtcyrlapqn (Bld) [#/Vol]1.7 10 3/uL1.2-3.8[facility] WestLymphocytes/100 WBC Auto (Bld) Ordered By: Dennys Aguilar on 93-41-4397Duxzddicbmi/100 WBC (Bld)19.8 %Low20.5-60.0 [facility] WestMCH Auto (RBC) [Entitic mass]Ordered By: Dennys Aguilar on 46-99-2679FWR (RBC) [Entitic mass]29.5 pg26.7-34.0[facility] WestMCHC Auto (RBC) [Mass/Vol]Ordered By: Dennys Aguilar on 07-07-2025 MCHC (RBC) [Mass/Vol]32.2 g/dL29.9-35.2FGerman HospitalMCV Auto (RBC) [Entitic vol]Ordered By: Dennys Aguilar on 49-51-0654LUK (RBC) [Entitic vol] 91.6 fL81.0-99.0[facility] WestMonocytes Auto (Bld) [#/Vol] Ordered By: Dennys Aguilar on 45-97-8181Htnewccyp (Bld) [#/Vol]1.2 10 3/uLHigh 0.3-0.8[facility] WestMonocytes/100 WBC Auto (Bld)Ordered By: Dennys Aguilar on 97-68-2659Jawkkvlps/100 WBC (Bld)14.9 %High1.7-12.0[facility] WestNeutrophils Auto (Bld) [#/Vol]Ordered By: Dennys Aguilar on 16-53-7874Lsynugjfrki (Bld) [#/Vol]4.7 10 3/uL1.4-6.5FGerman HospitalNeutrophils/100 WBC Auto (Bld)Ordered By: Dennys Aguilar on 07-07-2025 Neutrophils/100 WBC (Bld)56.9 %43.0-75.0[facility] WestNo Panel InformationOrdered By: Dennys Aguilar on 35-84-5531Sdlnttmdgjn # (Auto)0.5 10 3/uL0.0-0.7FGerman HospitalImmature Granulocyte # (Auto)0.03 10 3/uL0.00-0.03[facility] WestTroponin I High Sensitivity9.9 pg/mL4.0-51.3FGerman HospitalComment on above:CUT-OFF POINTS HAVE BEEN ESTABLISHED [...] (Bld) [Entitic vol]Ordered By: Dennys Aguilar on 50-94-4774Yofxqrse mean volume (Bld) [Entitic vol]11.4 fL9.5-13.5FGerman HospitalPlatelets Auto (Bld) [#/Vol]Ordered By: Dennys Aguilar on 39-76-9612Hhgpfospw (Bld) [#/Vol]119 10 3/dQRqp789-931SjapeobeeLake County Memorial Hospital - WestRBC Auto (Bld) [#/Vol]Ordered By: Dennys Aguilar on 47-83-2006KRJ (Bld) [#/Vol]4.88 10 6/uL4.20-5.40Firelands Regional Medical Centererum or plasma anion gap determinationOrdered By: Dennys Aguilar on 34-81-0747Vamzc gap [Moles/Vol]13.6 mmol/LFGerman HospitalActivated partial thromboplastin time (aPTT) in platelet poor plasma by coagulation aOrdered By: Daphne Emanuel on 70-18-1562rHBL Coag (PPP) [Time]27.4 s22.3-36.2FGerman HospitalBasophils Auto (Bld) [#/Vol]Ordered By: Daphne Emanuel on 04-06-2025 Basophils (Bld) [#/Vol]0.2 10 3/uLHigh0.0-0.1FGerman Hospital Basophils/100 WBC Auto (Bld)Ordered By: Daphne Emanuel on 63-30-2586Tuuwmkqdn/100 WBC (Bld)4.2 %High0.2-2.0[facility] WestEosinophils/100 WBC Auto (Bld)Ordered By: Daphne Emanuel on 65-87-1141Clqwdisacbv/100 WBC (Bld)9.2 %High 0.9-7.0[facility] WestErythrocyte distribution width Auto (RBC) [Ratio]Ordered By: Daphne Emanuel on 70-93-8033Laflpaclqjh distribution width (RBC) [Ratio]14.7 %11.0-15.0[facility] WestEstimated glomerular filtration rate (GFR) non- AmericanOrdered By: Daphne Emanuel on 18-49-7844XRE/1.73 sq M.predicted among non-blacks MDRD (S/P/Bld) [Vol rate/Area]54 mL/min/{1.73_m2}Low>=60 mL/min/1.73m 2FGerman HospitalGlobulin Calc (S) [Mass/Vol]Ordered By: Daphne Emanuel on 02-97-1566Lgpucbnb (S) [Mass/Vol]3.1 g/dLLake County Memorial Hospital - WestHematocrit Auto (Bld) [Volume fraction]Ordered By: Daphne Emanuel on 19-12-5832Ryjvfytecv (Bld) [Volume fraction]45.0 %36.0-48.0[facility] WestHemoglobin [Mass/volume] in BloodOrdered By: Daphne Emanuel on 15-23-9943Zwwtfnddit (Bld) [Mass/Vol]14.7 g/dL12.0-16.0[facility] WestINR in Platelet poor plasma by Coagulation assayOrdered By: Daphne Emanuel on 00-85-8916UCM Coag (PPP) [Relative time]1.32 {INR}[facility] - WestComment on above:DESIRED INR:2.0-3.0 CONDITIONS NOT LISTED BELOW2.5-3.5 FOR PROSTHETIC HEART VALVE REPLACEMENT2.5-3.5 RECURRENT THROMBOSISLaboratory - Chemistry and Chemistry - challengeOrdered By: Daphne Emanuel on 36-43-7883Mknsmrcyd Ql (U)Negative NEGATIVELake County Memorial Hospital - WestGlucose (U) [Mass/Vol]NegativeNEGATIVE [facility] WestKetones Ql (U)NegativeNEGATIVELake County Memorial Hospital - WestpH (U)7.0 [pH]5.0-9.0[facility] Specific gravity (U) [Rel density]1.0101.005-1.025[facility] - WestUrobilinogen Qn (U)0.2 {Myranda'U}/dL0.2-1.0[facility] WestAlbumin [Mass/Vol]3.7 g/dL3.4-5.0[facility] WestALP [Catalytic activity/Vol]64 U/Q43-526GzfzekxrzLake County [facility] Hospital - WestALT [Catalytic activity/Vol]16 U/X03-35HckencgfxLake [facility] Hospital - WestAST [Catalytic activity/Vol]14 U/OGjw74-28PzclunpweLake County [facility] Hospital - WestBilirubin [Mass/Vol]0.4 mg/dL0.2-1.0[facility] WestCalcium [Mass/Vol]9.9 mg/dL8.5-10.1FGerman HospitalChloride [Moles/Vol]106 mmol/L 98-107[facility] WestCO2 [Moles/Vol]26.9 mmol/L21.0-32.0 [facility] WestCreatinine [Mass/Vol]0.97 mg/dL0.55-1.02 [facility] WestGFR/1.73 sq M.predicted MDRD (S/P/Bld) [Vol rate/Area]mL/min/{1.73_m2}>=60 mL/min/1.73m 2FGerman Hospital Glucose [Mass/Vol]102 mg/xY66-329ZluqmcfruLake County Memorial Hospital - WestNatriuretic peptide B (Bld) [Mass/Vol]213.0 pg/mL<=1800.0[facility] Potassium [Moles/Vol]3.8 mmol/L3.5-5.1FGerman HospitalProtein [Mass/Vol]6.8 g/dL6.4-8.2FAdena Fayette Medical Centerodium [Moles/Vol]144 mmol/N475-843FxnobfkjiLake County [facility] Hospital - WestUrea nitrogen [Mass/Vol]19.0 mg/dL High7.0-18.0[facility] WestUrea nitrogen/Creatinine [Mass ratio]19.6 mg/mgLake County [facility] Hospital - WestLaboratory - Hematology and Cell countsOrdered By: Daphne Emanuel on 73-75-4444Lyvbxpqc granulocytes/100 WBC (Bld)0.5 %0.0-0.5FGerman HospitalLaboratory - Specimen informationOrdered By: Daphne Emanuel on 28-73-3311Muusytyeum (U)CLEARCLEARFGerman HospitalColor (U)LT. YELLOWYELLOWLake County [facility] Hospital - WestLaboratory - UrinalysisOrdered By: Daphne Emanuel on 82-26-8758Nwtwjqocp esterase Test strip Ql (U)NegativeNEGMercy Health Perrysburg HospitalMucus Ql (Urine sed)TRACEAbnormalNONE SEENLake County Memorial Hospital - WestNitrite Ql (U)NegativeNEGMercy Health Perrysburg HospitalProtein Ql (U)Negative NEG/TRACELake County [facility] Hospital - WestLeukocytes [#/volume] corrected for nucleated erythrocytes in Blood by Automated counOrdered By: Daphne Emanuel on 42-92-9316THD corrected for nucl RBC Auto (Bld) [#/Vol]5.8 10 3/uL4.0-11.0 [facility] - WestLymphocytes Auto (Bld) [#/Vol]Ordered By: Daphne Emanuel on 29-85-9520Tkjzuedkidq (Bld) [#/Vol]2.3 10 3/uL1.2-3.8[facility] WestLymphocytes/100 WBC Auto (Bld)Ordered By: Daphne Emanuel on 04-06-2025 Lymphocytes/100 WBC (Bld)39.5 %20.5-60.0[facility] WestMCH Auto (RBC) [Entitic mass]Ordered By: Daphne Emanuel on 42-76-6835OTO (RBC) [Entitic mass]30.0 pg26.7-34.0[facility] WestMCHC Auto (RBC) [Mass/Vol] Ordered By: Daphne Emanuel on 51-52-4986BLNP (RBC) [Mass/Vol]32.7 g/dL29.9-35.2 [facility] WestMCV Auto (RBC) [Entitic vol]Ordered By: Daphne Emanuel on 08-96-6250SRU (RBC) [Entitic vol]91.8 fL81.0-99.0[facility] WestMonocytes Auto (Bld) [#/Vol]Ordered By: Daphne Emanuel on 04-06-2025 Monocytes (Bld) [#/Vol]0.8 10 3/uL0.3-0.8[facility] Monocytes/100 WBC Auto (Bld)Ordered By: Daphne Emanuel on 77-52-1443Dgmzqctcd/100 WBC (Bld)13.6 %High1.7-12.0[facility] WestNeutrophils Auto (Bld) [#/Vol]Ordered By: Daphne Emanuel on 31-65-8436Vhtrethrcfd (Bld) [#/Vol]1.9 10 3/uL 1.4-6.5FGerman HospitalNeutrophils/100 WBC Auto (Bld)Ordered By: Daphne Emanuel on 43-77-0061Tfdawmfkayl/100 WBC (Bld)33.0 %Low43.0-75.0[facility] WestNo Panel InformationOrdered By: Daphne Emanuel on 04-06-2025 Urine BacteriaTRACE #/HPFAbnormalNONE SEENLake County Memorial Hospital - WestUrine Culture ReflexedNOLake County Memorial Hospital - WestUrine Occult BloodNegative NEGATIVELake County [facility] Hospital - WestUrine Other CastsNONE SEEN #/LPFNONE [facility] HospitalUrine Other CrystalsNone Seen #/HPFNone [facility] CenterUrine RBC0-2 #/HPF0-2FGerman HospitalUrine Squamous Epithelial CellsRARE #/LPFNONE/RARELake County Memorial Hospital - WestUrine WBCNONE SEEN #/HPFNONE [facility] HospitalEosinophils # (Auto)0.5 10 3/uL0.0-0.7FGerman HospitalImmature Granulocyte # (Auto)0.03 10 3/uL0.00-0.03[facility] WestTroponin I High Sensitivity8.7 pg/mL4.0-51.3FGerman HospitalComment on above:CUT-OFF POINTS HAVE BEEN ESTABLISHED [...] (Bld) [Entitic vol]Ordered By: Daphne Emanuel on 93-66-8194Osmcxvzu mean volume (Bld) [Entitic vol]10.7 fL9.5-13.5FGerman HospitalPlatelets Auto (Bld) [#/Vol]Ordered By: Daphne Emanuel on 53-53-3176Nspnjajwy (Bld) [#/Vol]135 10 3/jEJcm836-542PoqhyxqhxLake County Memorial Hospital - WestProthrombin time (PT)Ordered By: Daphne Emanuel on 55-80-5374EI Coag (PPP) [Time]13.6 sHigh9.0-11.6FGerman HospitalRBC Auto (Bld) [#/Vol]Ordered By: Daphne Emanuel on 04-06-2025 RBC (Bld) [#/Vol]4.90 10 6/uL4.20-5.40[facility] Medical Centererum or plasma albumin/globulin mass ratioOrdered By: Daphne Emanuel on 04-06-2025 Albumin/Globulin [Mass ratio]1.2 {ratio}[facility] Centererum or plasma anion gap determinationOrdered By: Daphne Emanuel on 60-86-2235Zkhjx gap [Moles/Vol]14.9 mmol/LFGerman HospitalOffice Visiton 02-12-2025 Follow-up [id number] Zoraida Barrios 1935 F Date Provider Department Center 02/12/2025 MISSY OCASIO CARD [facility] Family History Problem Relation Age of Onset Hypertension Mother Family Status - Relation Status Age at Mother Father Level of Service:[address] [place] OFFICE/OUTPATIENT ESTABLISHED MOD [facility]Bas[facility] (Bld[facility] [#/Vol]on 12-24-2024 Basophils (Bld) [#/Vol]Automated basophil countHigh0.0-0.1FGerman HospitalBasophils/100 WBC Auto (Bld)on 36-63-8124Csfdqyvxy/100 WBC (Bld) Automated basophil %High0.2-2.0[facility] WestEosinophils/100 WBC Auto (Bld)on 21-87-2078Vjbztfmbqwl/100 WBC (Bld)Automated eosinophil % 0.9-7.0[facility] WestErythrocyte distribution width Auto (RBC) [Ratio]on 15-00-2283Lptafpwvkpi distribution width (RBC) [Ratio] Erythrocyte distribution width [Ratio] by Automated count11.0-15.0[facility] WestEstimated glomerular filtration rate (GFR) non- Americanon 45-86-3076AZK/1.73 sq M.predicted among non-blacks MDRD (S/P/Bld) [Vol rate/Area]Estimated glomerular filtration rate (GFR) non- Low>=60 mL/min/1.73m 2FGerman HospitalGlobulin Calc (S) [Mass/Vol]on 02-49-3219Rdtnsjdn (S) [Mass/Vol]Serum globulin measurement by calculation (mass/volume)[facility] WestHematocrit Auto (Bld) [Volume fraction]on 83-74-3864Tiitlvrpvt (Bld) [Volume fraction]Hematocrit [Volume Fraction] of Blood by Automated count36.0-48.0[facility] WestHemoglobin [Mass/volume] in Bloodon 64-90-2585Matafflgmz (Bld) [Mass/Vol] Hemoglobin [Mass/volume] in Blood12.0-16.0[facility] Laboratory - Chemistry and Chemistry - challengeon 29-12-1399Cnwlpvv [Mass/Vol] 3.4 g/dL3.4-5.0[facility] WestALP [Catalytic activity/Vol]55 U/R42-030UmjmqahtwLake County [facility] Hospital - WestALT [Catalytic activity/Vol]14 U/L 14-59[facility] WestAST [Catalytic activity/Vol]15 U/L15-37 [facility] - WestBilirubin [Mass/Vol]0.3 mg/dL0.2-1.0[facility] WestCalcium [Mass/Vol]9.8 mg/dL8.5-10.1FGerman HospitalChloride [Moles/Vol]106 mmol/X36-027BtnbcbnrnLake [facility] Hospital - WestCO2 [Moles/Vol]29.4 mmol/L21.0-32.0[facility] Creatinine [Mass/Vol]1.24 mg/dLHigh0.55-1.02[facility] GFR/1.73 sq M.predicted MDRD (S/P/Bld) [Vol rate/Area]49 mL/min/{1.73_m2}Low>=60 mL/min/1.73m 2FGerman HospitalGlucose [Mass/Vol]158 mg/dLHigh 74-106[facility] WestPotassium [Moles/Vol]3.5 mmol/L3.5-5.1 [facility] WestProtein [Mass/Vol]6.3 g/dLLow6.4-8.2FAdena Fayette Medical Centerodium [Moles/Vol]143 mmol/Q385-898NjrbhukozLake County Memorial Hospital - WestUrea nitrogen [Mass/Vol]25.0 mg/dLHigh7.0-18.0[facility] WestUrea nitrogen/Creatinine [Mass ratio]20.2 mg/mgLake County [facility] Hospital - WestLaboratory - Hematology and Cell countson 27-16-1609Vvgufpul granulocytes/100 WBC (Bld)0.4 %0.0-0.5FGerman Hospital Leukocytes [#/volume] corrected for nucleated erythrocytes in Blood by Automated counon 13-26-6627GJG corrected for nucl RBC Auto (Bld) [#/Vol]Leukocytes [#/volume] corrected for nucleated erythrocytes in Blood by Automated coun 4.0-11.0[facility] - WestLymphocytes Auto (Bld) [#/Vol]on 82-76-8957Wbvoopnpmhu (Bld) [#/Vol]Lymphocytes [#/volume] in Blood by Automated count1.2-3.8[facility] WestLymphocytes/100 WBC Auto (Bld)on 94-69-2201Gfyyasjdnna/100 WBC (Bld)Lymphocytes/100 leukocytes in Blood by Automated count20.5-60.0[facility] BeachwoodH Auto (RBC) [Entitic mass]on 08-06-4094EKI (RBC) [Entitic mass]MCH [Entitic mass] by Automated count 26.7-34.0[facility] WestMCHC Auto (RBC) [Mass/Vol]on 64-79-3371QDRQ (RBC) [Mass/Vol]MCHC [Mass/volume] by Automated count29.9-35.2 [facility] WestMCV Auto (RBC) [Entitic vol]on 18-13-4132HRW (RBC) [Entitic vol]MCV [Entitic volume] by Automated count81.0-99.0[facility] WestMonocytes Auto (Bld) [#/Vol]on 39-82-1068Qordqdxxg (Bld) [#/Vol]Automated blood monocyte count0.3-0.8[facility] Monocytes/100 WBC Auto (Bld)on 28-49-3655Ihdyqlpgl/100 WBC (Bld)Automated monocyte %High1.7-12.0[facility] WestNeutrophils Auto (Bld) [#/Vol]on 79-45-3383Chmcrhjbhnn (Bld) [#/Vol]Neutrophils [#/volume] in Blood by Automated count1.4-6.5FGerman HospitalNeutrophils/100 WBC Auto (Bld)on 99-07-9830Bwagrmeoijh/100 WBC (Bld)Automated neutrophil %43.0-75.0 [facility] WestNo Panel Informationon 99-27-0799Ojlwmfqkzzv # (Auto)0.3 10 3/uL0.0-0.7Fire[facility] Regional Medical CenterImmature Granulocyte # (Auto)0.02 10 3/uL0.00-0.03[facility] WestTroponin I High Sensitivity8.8 pg/mL4.0-51.3FGerman HospitalComment on above: CUT-OFF POINTS HAVE BEEN [...] volume [Entitic volume] in Blood by Automated count9.5-13.5FGerman HospitalPlatelets Auto (Bld) [#/Vol]on 81-45-7880Sviqmkqns (Bld) [#/Vol]Platelets [#/volume] in Blood by Automated nuzmcKyt012-255PptagfjsnLake [facility] Hospital - WestRBC Auto (Bld) [#/Vol]on 55-80-0758NJS (Bld) [#/Vol]Erythrocytes [#/volume] in Blood by Automated count4.20-5.40[facility] Medical Centererum or plasma albumin/globulin mass ratioon 60-04-9644Upegjaz/Globulin [Mass ratio]Serum or plasma albumin/globulin mass ratioFirelands Regional Medical Centererum or plasma anion gap determinationon 94-62-9855Zwvoa gap [Moles/Vol]Serum or plasma anion gap determinationLake County Memorial Hospital - WestOffice Visiton 06-74-8541Rdsqlz-up [id number] Zoraida Barrios 1935 F Date Provider Department Center 11/28/2024 EDVIN PALM CRISTOBAL [facility] Family History Problem Relation Age of Onset Hypertension Mother Family Status - Relation Status Age at Mother Level of Service:[address] [place] OFFICE/OUTPATIENT ESTABLISHED LOW [facility] HospitalOffice [facility]iton 99-25-8063Wnxcno-up visit [id number] Zoraida Barrios Chris 1935 F Date Provider Department Center 06/28/2024 AALIYAH HENDERSON [facility] Family History Problem Relation Age of Onset Hypertension Mother Family Status - Relation Status Age at Mother Level of Service:[address] [place] OFFICE/OUTPATIENT ESTABLISHED LOW [facility]DM [facility] HospitalBasophils Auto (Bld) [#/Vol]on 05-15-2024 Basophils (Bld) [#/Vol]0.2 10 3/uLHigh0.0-0.1FGerman Hospital Basophils/100 WBC Auto (Bld)on 34-13-2689Kbgaqjafw/100 WBC (Bld)2.2 %High0.2-2.0 [facility] WestEosinophils/100 WBC Auto (Bld)on 05-15-2024 Eosinophils/100 WBC (Bld)5.0 %0.9-7.0[facility] Erythrocyte distribution width Auto (RBC) [Ratio]on 28-62-5930Bxigkomqowz distribution width (RBC) [Ratio]14.7 %11.0-15.0[facility] Estimated glomerular filtration rate (GFR) non- Americanon 05-15-2024 GFR/1.73 sq M.predicted among non-blacks MDRD (S/P/Bld) [Vol rate/Area]45 mL/min/{1.73_m2}Low>=60[facility] - WestHematocrit Auto (Bld) [Volume fraction]on 23-67-8831Kguwmqqqqm (Bld) [Volume fraction]40.2 %36.0-48.0 [facility] WestHemoglobin [Mass/volume] in Bloodon 05-15-2024 Hemoglobin (Bld) [Mass/Vol]13.0 g/dL12.0-16.0[facility] Laboratory - Chemistry and Chemistry - challengeon 10-86-7511Kasxhkd [Mass/Vol] 9.5 mg/dL8.5-10.1FGerman HospitalChloride [Moles/Vol]105 mmol/L 98-107[facility] - WestCO2 [Moles/Vol]26.4 mmol/L21.0-32.0 [facility] - WestCobalamin (Vitamin B12) [Mass/Vol]618.0 pg/mL 193.0-986.0[facility] WestCreatinine [Mass/Vol]1.15 mg/dLHigh 0.55-1.02[facility] - WestFree T4 [Mass/Vol]1.06 ng/dL0.76-1.46 [facility] WestGFR/1.73 sq M.predicted MDRD (S/P/Bld) [Vol rate/Area]54 mL/min/{1.73_m2}Low>=60[facility] WestGlucose [Mass/Vol]104 mg/lG61-963AjblblyxtLake [facility] Hospital - WestPotassium [Moles/Vol] 4.2 mmol/L3.5-5.1FAdena Fayette Medical Centerodium [Moles/Vol]137 mmol/L 136-145[facility] - WestTSH Qn4.417 m[IU]/LHigh0.358-3.740 [facility] WestUrea nitrogen [Mass/Vol]20.0 mg/dLHigh7.0-18.0 [facility] WestUrea nitrogen/Creatinine [Mass ratio]17.4 mg/mg [facility] WestLaboratory - Hematology and Cell countson 44-50-6001Jzmbjsel granulocytes/100 WBC (Bld)1.3 %High0.0-0.5FGerman HospitalLeukocytes [#/volume] corrected for nucleated erythrocytes in Blood by Automated counon 27-44-1124TFA corrected for nucl RBC Auto (Bld) [#/Vol]10.4 10 3/uL4.0-11.0[facility] - WestLymphocytes Auto (Bld) [#/Vol]on 77-65-0697Cyjyoljjwin (Bld) [#/Vol]2.1 10 3/uL1.2-3.8[facility] WestLymphocytes/100 WBC Auto (Bld)on 05-15-2024 Lymphocytes/100 WBC (Bld)20.1 %Low20.5-60.0[facility] Auto (RBC) [Entitic mass]on 40-99-3938USD (RBC) [Entitic mass]30.2 pg26.7-34.0 [facility] - WestMCHC Auto (RBC) [Mass/Vol]on 48-58-1094TGEJ (RBC) [Mass/Vol]32.3 g/dL29.9-35.2FGerman HospitalMCV Auto (RBC) [Entitic vol]on 93-74-1908ALX (RBC) [Entitic vol]93.3 fL81.0-99.0[facility] WestMonocytes Auto (Bld) [#/Vol]on 91-16-9500Icwgfuofv (Bld) [#/Vol]1.4 10 3/uLHigh0.3-0.8[facility] WestMonocytes/100 WBC Auto (Bld)on 53-84-5183Mhizfphja/100 WBC (Bld)13.0 %High1.7-12.0[facility] WestNeutrophils Auto (Bld) [#/Vol]on 90-61-3818Xiwzwwvulzl (Bld) [#/Vol]6.1 10 3/uL1.4-6.5FGerman HospitalNeutrophils/100 WBC Auto (Bld)on 92-94-3495Mtfpvslskmo/100 WBC (Bld)58.4 %43.0-75.0[facility] WestNo Panel Informationon 84-86-396013230854-Eqopypt Vitamin D Total32.6 ng/mLLake County Memorial Hospital - WestComment on above:<20 ng/mL Vit D sbmmfktug81-<30 ng/mL Vit D avfnbiuplchj50-127 ng/mL Vit D sufficient>100 ng/mL Potential ToxicityEosinophils # (Auto)0.5 10 3/uL0.0-0.7FGerman HospitalFolate12.10 ng/mL8.60-58.90[facility] Immature Granulocyte # (Auto)0.13 10 3/uLHigh0.00-0.03[facility] - WestPlatelet mean volume Auto (Bld) [Entitic vol]on 36-11-3237Miorrhfd mean volume (Bld) [Entitic vol]10.7 fL9.5-13.5FGerman Hospital Platelets Auto (Bld) [#/Vol]on 34-11-2548Vlplmjjom (Bld) [#/Vol]132 10 3/uLLow 150-450L[facility] - WestRBC Auto (Bld) [#/Vol]on 26-45-1452XQW (Bld) [#/Vol]4.31 10 6/uL4.20-5.40Fire[facility] Medical Centererum or plasma anion gap determinationon 75-01-1322Eiwza gap [Moles/Vol]9.8 mmol/L [facility] - WestBasophils Auto (Bld) [#/Vol]on 05-10-2024 Basophils (Bld) [#/Vol]0.2 10 3/uLHigh0.0-0.1FGerman Hospital Basophils/100 WBC Auto (Bld)on 20-80-3936Twmghugoe/100 WBC (Bld)3.1 %High0.2-2.0 [facility] WestEosinophils/100 WBC Auto (Bld)on 05-10-2024 Eosinophils/100 WBC (Bld)6.3 %0.9-7.0[facility] Erythrocyte distribution width Auto (RBC) [Ratio]on 22-60-1613Jxwihkhicso distribution width (RBC) [Ratio]14.8 %11.0-15.0[facility] Estimated glomerular filtration rate (GFR) non- Americanon 05-10-2024 GFR/1.73 sq M.predicted among non-blacks MDRD (S/P/Bld) [Vol rate/Area]39 mL/min/{1.73_m2}Low>=60[facility] WestFibrin D-dimer [Presence] in Platelet poor plasma by Latex agglutinationon 95-29-8487Gtvbaz D- dimer LA Ql (PPP)0.29 mg/L FEU<=0.59[facility] WestComment on above:Increases in D-Dimer concentration observed withthromboembolic [...] stress, and generalizedhospitalization. Globulin Calc (S) [Mass/Vol]on 01-87-5725Tywrtetu (S) [Mass/Vol]3.1 g/dL [facility] WestHematocrit Auto (Bld) [Volume fraction]on 80-43-0977Wezpftdeql (Bld) [Volume fraction]39.6 %36.0-48.0[facility] WestHemoglobin [Mass/volume] in Bloodon 73-83-5645Mbwjhjusbb (Bld) [Mass/Vol]12.9 g/dL12.0-16.0[facility] WestINR in Platelet poor plasma by Coagulation assayon 47-41-5396FEK Coag (PPP) [Relative time]1.34 {INR}[facility] WestComment on above:DESIRED INR:2.0-3.0 CONDITIONS NOT LISTED BELOW2.5-3.5 FOR PROSTHETIC HEART VALVE REPLACEMENT2.5-3.5 RECURRENT THROMBOSISLaboratory - Chemistry and Chemistry - challengeon 82-45-5827Xzfobypuh Ql (U)NegativeNEGATIVELake County Memorial Hospital - West Glucose (U) [Mass/Vol]NegativeNEGATIVELake County [facility] Hospital - WestKetones Ql (U)NegativeNEGATIVELake County [facility] Hospital - WestpH (U)6.0 [pH]5.0-9.0 [facility] ([facility]) [Rel density]1.015 1.005-1.025[facility] WestUrobilinogen Qn (U)0.2 {Myranda'U}/dL0.2-1.0[facility] WestAlbumin [Mass/Vol]3.5 g/dL 3.4-5.0[facility] WestALP [Catalytic activity/Vol]54 U/L46-116 [facility] WestALT [Catalytic activity/Vol]17 U/L14-59 [facility] WestAST [Catalytic activity/Vol]14 U/ETtc25-78 [facility] WestBilirubin [Mass/Vol]0.4 mg/dL0.2-1.0[facility] [facility] WestCalcium [Mass/Vol]9.5 mg/dL8.5-10.1FGerman HospitalChloride [Moles/Vol]104 mmol/J76-970EsspdtiuwLake County Memorial Hospital - WestCO2 [Moles/Vol]26.0 mmol/L21.0-32.0[facility] Creatinine [Mass/Vol]1.28 mg/dLHigh0.55-1.02[facility] GFR/1.73 sq M.predicted MDRD (S/P/Bld) [Vol rate/Area]48 mL/min/{1.73_m2}Low>=60 [facility] WestGlucose [Mass/Vol]143 mg/fZLajh54-397AoqnjfzvmLake County Memorial Hospital - WestNatriuretic peptide B (Bld) [Mass/Vol]178.0 pg/mL<=1800.0 [facility] WestPotassium [Moles/Vol]3.9 mmol/L3.5-5.1FGerman HospitalProtein [Mass/Vol]6.6 g/dL6.4-8.2FAdena Fayette Medical Centerodium [Moles/Vol]136 mmol/P257-700MmzadvoqdLake County Memorial Hospital - WestUrea nitrogen [Mass/Vol]21.0 mg/dLHigh7.0-18.0[facility] WestUrea nitrogen/Creatinine [Mass ratio]16.4 mg/mgLake County Memorial Hospital - WestLaboratory - Hematology and Cell countson 80-94-7430Emqyfrxp granulocytes/100 WBC (Bld)0.3 %0.0-0.5FGerman Hospital Laboratory - Specimen informationon 34-08-4034Sohhyrwmoq (U)CLEARCLEARFGerman HospitalColor (U)LT. YELLOWYELLOWLake County Memorial Hospital - WestLaboratory - Urinalysison 19-85-0001Lhubxuoru esterase Test strip Ql (U) SMALLAbnormalNEGATIVELake County Memorial Hospital - WestMucus Ql (Urine sed)NONE SEENNONE SEENLake County Memorial Hospital - WestNitrite Ql (U)NegativeNEGATIVE [facility] WestProtein Ql (U)NegativeNEG/TRACELake County Memorial Hospital - WestLeukocytes [#/volume] corrected for nucleated erythrocytes in Blood by Automated counon 41-68-9941HLY corrected for nucl RBC Auto (Bld) [#/Vol]5.9 10 3/uL4.0-11.0[facility] Lymphocytes Auto (Bld) [#/Vol]on 24-47-3476Usrzcptfijj (Bld) [#/Vol]1.8 10 3/uL 1.2-3.8[facility] WestLymphocytes/100 WBC Auto (Bld)on 03-31-5534Zwmeyywqcvj/100 WBC (Bld)31.0 %20.5-60.0[facility] BeachwoodH Auto (RBC) [Entitic mass]on 13-35-7504ABU (RBC) [Entitic mass]30.4 pg 26.7-34.0[facility] - WestMCHC Auto (RBC) [Mass/Vol]on 49-78-1246IAWA (RBC) [Mass/Vol]32.6 g/dL29.9-35.2FGerman HospitalMCV Auto (RBC) [Entitic vol]on 34-18-0159ASX (RBC) [Entitic vol]93.2 fL 81.0-99.0[facility] WestMonocytes Auto (Bld) [#/Vol]on 91-99-4831Ukrcjwpjc (Bld) [#/Vol]0.7 10 3/uL0.3-0.8[facility] WestMonocytes/100 WBC Auto (Bld)on 81-96-0619Hwcxzzlpt/100 WBC (Bld)12.4 %High 1.7-12.0[facility] - WestNeutrophils Auto (Bld) [#/Vol]on 51-17-1668Uywzhyzjork (Bld) [#/Vol]2.8 10 3/uL1.4-6.5FGerman HospitalNeutrophils/100 WBC Auto (Bld)on 24-60-9066Tursergqjpr/100 WBC (Bld)46.9 % 43.0-75.0[facility] WestNo Panel Informationon 35-69-6862Iaqma BacteriaTRACE #/HPFAbnormalNONE [facility] HospitalUrine Occult BloodTRACE-INEGATIVELake County Memorial Hospital - WestUrine Other Casts NONE SEEN #/LPFNONE [facility] HospitalUrine Other Crystals None Seen #/HPFNone [facility] CenterUrine RBC5-10 #/HPF Abnormal0-2FGerman HospitalUrine Squamous Epithelial Cells MODERATE #/LPFAbnormalNONE/RARELake County Memorial Hospital - WestUrine WBC0-2 #/HPFAbnormalNONE [facility] HospitalEosinophils # (Auto)0.4 10 3/uL0.0-0.7FGerman HospitalImmature Granulocyte # (Auto)0.02 10 3/uL0.00-0.03[facility] - WestTroponin I High Sensitivity5.5 pg/mL4.0-51.3FGerman HospitalComment on above:CUT-OFF POINTS HAVE BEEN ESTABLISHED [...] INFORMATION.Platelet mean volume Auto (Bld) [Entitic vol]on 42-39-9052Ojjwzvjg mean volume (Bld) [Entitic vol]10.9 fL9.5-13.5FGerman Hospital Platelets Auto (Bld) [#/Vol]on 04-25-5965Fewcdcjzs (Bld) [#/Vol]144 10 3/uLLow 150-450[facility] - WestProthrombin time (PT)on 21-14-3927XH Coag (PPP) [Time]13.8 sHigh9.0-11.6FGerman HospitalRBC Auto (Bld) [#/Vol]on 96-77-5275KWY (Bld) [#/Vol]4.25 10 6/uL4.20-5.40[facility] Centererum or plasma albumin/globulin mass ratioon 05-10-2024 Albumin/Globulin [Mass ratio]1.1 {ratio}[facility] Centererum or plasma anion gap determinationon 83-82-2117Aktwd gap [Moles/Vol]9.9 mmol/L [facility] WestOffice Visiton 51-54-0825Ojpwhh-up visit [id number] Zoraida Barrios 1935 F Date Provider Department Center 05/01/2024 AALIYAH HENDERSON CARD [facility] Family History Problem Relation Age of Onset Hypertension Mother Family Status - Relation Status Age at Mother Level of Service:[address] [place] OFFICE/OUTPATIENT ESTABLISHED LOW MDM [facility]Bas[facility] WBC Manual cnt (Bld)on 53-79-3543Tmisqimoo/100 WBC (Bld)0.0 %Low0.2-2.0[facility] WestEosinophils/100 WBC Manual cnt (Bld)on 45-78-9286Venvyzeldsq/100 WBC (Bld) 4.0 %0.9-7.0[facility] - WestErythrocyte distribution width Auto (RBC) [Ratio]on 07-75-2358Bbkcpspzmwy distribution width (RBC) [Ratio]14.7 % 11.0-15.0[facility] WestEstimated glomerular filtration rate (GFR) non- Americanon 93-94-4592YRF/1.73 sq M.predicted among non-blacks MDRD (S/P/Bld) [Vol rate/Area]42 mL/min/{1.73_m2}Low>=60[facility] - WestGlobulin Calc (S) [Mass/Vol]on 30-43-5551Wkouvyzi (S) [Mass/Vol] 3.4 g/dLLake County Memorial Hospital - WestHematocrit Auto (Bld) [Volume fraction] on 14-45-6717Vprbqhnbos (Bld) [Volume fraction]43.1 %36.0-48.0[facility] WestHemoglobin [Mass/volume] in Bloodon 90-16-6950Inteisrvve (Bld) [Mass/Vol]13.8 g/dL12.0-16.0[facility] WestINR in Platelet poor plasma by Coagulation assayon 74-86-1903WTD Coag (PPP) [Relative time]1.31 {INR}[facility] - WestComment on above:DESIRED INR:2.0-3.0 CONDITIONS NOT LISTED BELOW2.5-3.5 FOR PROSTHETIC HEART VALVE REPLACEMENT2.5-3.5 RECURRENT THROMBOSISLaboratory - Chemistry and Chemistry - challengeon 28-47-9475Hjduwed [Mass/Vol]4.0 g/dL3.4-5.0[facility] WestALP [Catalytic activity/Vol]63 U/B05-207EvgmumakiLake County Memorial Hospital - WestALT [Catalytic activity/Vol]18 U/G39-29YbbibntseLake County Memorial Hospital - WestAST [Catalytic activity/Vol]14 U/GNff22-12EmglgxqxbLake County Memorial Hospital - WestBilirubin [Mass/Vol]0.7 mg/dL0.2-1.0[facility] WestCalcium [Mass/Vol]9.6 mg/dL8.5-10.1FGerman HospitalChloride [Moles/Vol]104 mmol/L 98-107[facility] WestCO2 [Moles/Vol]29.2 mmol/L21.0-32.0 [facility] WestCreatinine [Mass/Vol]1.21 mg/dLHigh0.55-1.02 [facility] WestGFR/1.73 sq M.predicted MDRD (S/P/Bld) [Vol rate/Area]51 mL/min/{1.73_m2}Low>=60[facility] WestGlucose [Mass/Vol]136 mg/pEVhpt45-360ZgkqzfuqvLake County Memorial Hospital - WestNatriuretic peptide B (Bld) [Mass/Vol]201.0 pg/mL<=1800.0[facility] Potassium [Moles/Vol]3.9 mmol/L3.5-5.1FGerman HospitalProtein [Mass/Vol]7.4 g/dL6.4-8.2FAdena Fayette Medical Centerodium [Moles/Vol]139 mmol/R137-230PgutpsjajLake County Memorial Hospital - WestUrea nitrogen [Mass/Vol]27.0 mg/dL High7.0-18.0[facility] WestUrea nitrogen/Creatinine [Mass ratio]22.3 mg/mgLake County [facility] Hospital - WestLaboratory - Hematology and Cell countson 98-61-4444Etwu form neutrophils/100 WBC (Bld)4.0 %0-5FGerman HospitalLymphocytes/100 WBC (Bld)15.0 %Low20.5-60.0[facility] WestMonocytes/100 WBC (Bld)3.0 %1.7-12.0[facility] WestLeukocytes [#/volume] corrected for nucleated erythrocytes in Blood by Automated counon 84-48-3817BJI corrected for nucl RBC Auto (Bld) [#/Vol]13.3 10 3/uLHigh4.0-11.0[facility]woodH Auto (RBC) [Entitic mass]on 22-44-4665JWO (RBC) [Entitic mass]30.1 pg26.7-34.0[facility], BeachwoodHC Auto (RBC) [Mass/Vol]on 28-81-8497QCPD (RBC) [Mass/Vol]32.0 g/dL29.9-35.2FWyandot Memorial HospitalV Auto (RBC) [Entitic vol]on 20-00-0185BPJ (RBC) [Entitic vol]93.9 fL81.0-99.0[facility] - WestNo Panel Informationon 82-85-6758Iknsozhj I High Sensitivity6.5 pg/mL4.0-51.3FGerman HospitalComment on above: CUT-OFF POINTS HAVE BEEN [...] DIAGNOSTIC AND CLINICAL INFORMATION.Absolute Basophils (Manual)0.00 10 3/uL0.00-0.10[facility] - WestBand Neutrophils # (Manual)0.5 10 3/uLHigh0.0-0.3 [facility] WestEosinophils # (Manual)0.53 10 3/uL0.00-0.70 [facility] WestLymphocytes # (Manual)1.99 10 3/uL1.20-3.80 [facility] WestMonocytes # (Manual)0.39 10 3/uL0.30-0.80 [facility] Centeregmented Neutrophils # (Manual)9.84 10 3/uL High1.4-6.5FGerman HospitalPlatelet mean volume Auto (Bld) [Entitic vol]on 75-58-9402Zafsqtwd mean volume (Bld) [Entitic vol]10.4 fL 9.5-13.5FGerman HospitalPlatelets Auto (Bld) [#/Vol]on 65-69-9040Sczzzkujr (Bld) [#/Vol]145 10 3/qHFjz890-346ZtxknihkfLake County Memorial Hospital - WestProthrombin time (PT)on 93-93-5976QI Coag (PPP) [Time]13.5 sHigh9.0-11.6 [facility] - WestRBC Auto (Bld) [#/Vol]on 79-30-1612UBM (Bld) [#/Vol]4.59 10 6/uL4.20-5.40[facility] Centeregmented neutrophils/100 WBC Manual cnt (Bld)on 27-68-6245Afwvcjvep neutrophils/100 WBC (Bld)74.0 %[facility] Centererum or plasma albumin/globulin mass ratioon 84-71-7522Rzhquwg/Globulin [Mass ratio]1.2 {ratio}[facility] Centererum or plasma anion gap determinationon 49-95-0047Wdtaz gap [Moles/Vol]9.7 mmol/LFGerman HospitalOffice Visiton 13-25-0198Lmdvlu-up [id number] Zoraida Barrios 1935 F Date Provider Department Center 03/28/2024 AALIYAH HENDERSON CARD [facility] Family History Problem Relation Age of Onset Hypertension Mother Family Status - Relation Status Age at Mother Level of Service:[address]644 [place] OFFICE/OUTPATIENT ESTABLISHED LOW MDM [facility] HospitalBasophils Auto (Bld) [#/Vol]on 12-28-2023 Basophils (Bld) [#/Vol]0.2 10 3/uL0.0-0.1FGerman Hospital Basophils/100 WBC Auto (Bld)on 43-81-3122Qbvrlzwiw/100 WBC (Bld)3.4 %0.2-2.0 [facility] WestEosinophils/100 WBC Auto (Bld)on 12-28-2023 Eosinophils/100 WBC (Bld)6.2 %0.9-7.0[facility] Erythrocyte distribution width Auto (RBC) [Ratio]on 85-40-4134Rvcsuilyqks distribution width (RBC) [Ratio]14.8 %11.0-15.0[facility] Estimated glomerular filtration rate (GFR) non- Americanon 12-28-2023 GFR/1.73 sq M.predicted among non-blacks MDRD (S/P/Bld) [Vol rate/Area]46 mL/min/{1.73_m2}>=60[facility] - WestHematocrit Auto (Bld) [Volume fraction]on 89-35-8630Eybezoawlx (Bld) [Volume fraction]42.9 %36.0-48.0 [facility] WestHemoglobin [Mass/volume] in Bloodon 12-28-2023 Hemoglobin (Bld) [Mass/Vol]13.7 g/dL12.0-16.0[facility] Laboratory - Chemistry and Chemistry - challengeon 43-13-0339Cabayhv [Mass/Vol] 9.7 mg/dL8.5-10.1FGerman HospitalChloride [Moles/Vol]106 mmol/L 98-107[facility] WestCO2 [Moles/Vol]26.1 mmol/L21.0-32.0 [facility] WestCreatinine [Mass/Vol]1.11 mg/dL0.55-1.02 [facility] WestGFR/1.73 sq M.predicted MDRD (S/P/Bld) [Vol rate/Area]56 mL/min/{1.73_m2}>=60[facility] WestGlucose [Mass/Vol]108 mg/nU99-110CzxjmpvycLake County Memorial Hospital - WestPotassium [Moles/Vol] 3.8 mmol/L3.5-5.1FAdena Fayette Medical Centerodium [Moles/Vol]139 mmol/L 136-145[facility] WestUrea nitrogen [Mass/Vol]22.0 mg/dL 7.0-18.0[facility] WestUrea nitrogen/Creatinine [Mass ratio] 19.8 mg/mgLake County [facility] Hospital - WestLaboratory - Hematology and Cell countson 35-58-8261Dngpbjir granulocytes/100 WBC (Bld)0.5 %0.0-0.5FGerman HospitalLeukocytes [#/volume] corrected for nucleated erythrocytes in Blood by Automated counon 60-81-8171GEE corrected for nucl RBC Auto (Bld) [#/Vol]6.0 10 3/uL4.0-11.0[facility] Lymphocytes Auto (Bld) [#/Vol]on 63-74-9506Qyidtmxhcii (Bld) [#/Vol]2.1 10 3/uL 1.2-3.8[facility] WestLymphocytes/100 WBC Auto (Bld)on 60-64-3411Nfkcrrjcacr/100 WBC (Bld)34.9 %20.5-60.0[facility] BeachwoodH Auto (RBC) [Entitic mass]on 04-87-6384FEU (RBC) [Entitic mass]30.0 pg 26.7-34.0[facility] - WestMCHC Auto (RBC) [Mass/Vol]on 28-93-5594AMHP (RBC) [Mass/Vol]31.9 g/dL29.9-35.2FGerman HospitalMCV Auto (RBC) [Entitic vol]on 26-27-6231FSN (RBC) [Entitic vol]93.9 fL 81.0-99.0[facility] WestMonocytes Auto (Bld) [#/Vol]on 87-76-3281Llsnjlhtp (Bld) [#/Vol]0.9 10 3/uL0.3-0.8[facility] WestMonocytes/100 WBC Auto (Bld)on 67-74-1340Hdfwyqqtq/100 WBC (Bld)15.1 % 1.7-12.0[facility] WestNeutrophils Auto (Bld) [#/Vol]on 00-63-5141Jmjzwmgutcd (Bld) [#/Vol]2.4 10 3/uL1.4-6.5FGerman HospitalNeutrophils/100 WBC Auto (Bld)on 37-14-2777Bycrpuhgktr/100 WBC (Bld)39.9 % 43.0-75.0[facility] WestNo Panel Informationon 12-28-2023 Eosinophils # (Auto)0.4 10 3/uL0.0-0.7FGerman HospitalImmature Granulocyte # (Auto)0.03 10 3/uL0.00-0.03[facility] Troponin I High Sensitivity6.6 pg/mL4.0-51.3FGerman Hospital Comment on above:CUT-OFF POINTS HAVE BEEN [...] INFORMATION.Platelet mean volume Auto (Bld) [Entitic vol]on 07-07-1623Xdcsujdf mean volume (Bld) [Entitic vol] 10.8 fL9.5-13.5FGerman HospitalPlatelets Auto (Bld) [#/Vol]on 34-55-2895Cbfkdaann (Bld) [#/Vol]142 10 3/bZ383-478HkkkmeqscLake County Memorial Hospital - WestRBC Auto (Bld) [#/Vol]on 09-09-7632XEC (Bld) [#/Vol]4.57 10 6/uL4.20-5.40 [facility] Centererum or plasma anion gap determinationon 61-50-2702Qevzw gap [Moles/Vol]10.7 mmol/LFGerman HospitalPROF CHEM 8 (BAS METB)on 59-40-5741Gbcve gap [Moles/Vol]12.5 mmol/LNormalSouthern Ohio Medical CenterComment on above:Performed By: #### BMP #### [facility] [address] [address] [address] Arden MagallonCalcium [Mass/Vol]10.0 mg/dLNormal8.5-10.1[facility] Comment on above:Performed By: #### BMP #### [facility] [address] [address] [address] Arden MagallonChloride [Moles/Vol]105 mmol/ILirvco96-620CbcSouthern Ohio Medical Center Comment on above:Performed By: #### BMP #### [facility] [address] [address] [address] Arden MagallonCO2 [Moles/Vol]29.9 mmol/VKgbgwu10.0-32.0[facility] Comment on above:Performed By: #### BMP #### [facility] [address] [address] [address] Arden MagallonCreatinine [Mass/Vol]1.26 mg/dLCritically high0.55-1.02The [facility] HospitalComment on above:Performed By: #### BMP #### [facility] [address] [address] [address] Arden CarranzaGFR-AF BTBQQOWH59 mL/min/1.03v7Zfixrniifn low>=60The [facility] HospitalComment on above:Performed By: #### BMP #### [facility] [address] [address] [address] Arden CarranzaGFR-NON AF UAVEGAMT37 mL/min/1.52g8Ioeyvxtsxb low>=60The [facility] HospitalComment on above:Performed By: #### BMP #### [facility] [address] [address] [address] Arden MagallonGlucose [Mass/Vol]108 mg/dLCritically vvle28-634Fxl [facility] HospitalComment on above:Performed By: #### BMP #### [facility] [address] [address] [address] Arden MagallonPotassium [Moles/Vol]3.4 mmol/LCritically low3.5-5.1[facility] Medical CenterComment on above:Performed By: #### BMP #### [facility] [address] [place] [address] Dr. Arden Parkerum [Moles/Vol]144 mmol/EAjzvvh649-650Gjr [facility] Comment on above:Performed By: #### BMP #### [facility] [address] [place] [address] Dr. Arden Jones nitrogen [Mass/Vol]28.0 mg/dLCritically high7.0-18.0[facility] Medical CenterComment on above:Performed By: #### BMP #### [facility] [address] [place] [address] Dr. Arden Jones nitrogen/Creatinine [Mass ratio]22.2 mg/mgNormalThe [facility] HospitalComment on above:Performed By: #### BMP #### [facility] [address] [place] [address] Dr. Arden Caraballo CINDY 3-6on 58-68-1675GG [Catalytic activity/Vol]27 U/L Qajdrh38-295KboSouthern Ohio Medical CenterComment on above:Performed By: #### BMP #### [facility] [address] [place] [address] Dr. Arden Childs.MB [Mass/Vol]0.84 ng/mLNormal<=3.60The [facility] Comment on above:Performed By: #### BMP #### [facility] [address] [place] [address] Dr. Arden DawsonOP12.4 pg/mLNormal4.0-51.3TProMedica Flower HospitalComchelsea hospital on above:Result Comment: CUT-OFF POINTS HAVE BEEN ESTABLISHED BASED ON THE FOURTH UNIVERSAL DEFINITIONS OF MYOCARDIAL INFARCTION. THE UPPER REFERENCE LIMIT (URL) OF TROPONIN, DEFINED THE 99TH PERCENTILE OF cTnI DISTRIBUTION IN A REFERENCE POPULATION, HAS BEEN CONFIRMED THE DECISION THRESHOLD FOR [place] DIAGNOSIS.Performed By: #### BMP #### [facility] [address] [place] [address] Dr. Arden WHITE ADMITon 16-24-1819DR [Catalytic activity/Vol]42 U/L Oooqae17-713LmvSouthern Ohio Medical CenterComment on above:Performed By: #### BMP #### [facility] [address] [place] [address] Dr. Arden Childs.MB [Mass/Vol]0.82 ng/mLNormal<=3.60[facility] Comment on above:Performed By: #### BMP #### [facility] [address] [place] [address] Dr. Arden NelsonTROP9.8 pg/mLNormal4.0-51.3The [facility] HospitalComment on above:Result Comment: CUT-OFF POINTS HAVE BEEN ESTABLISHED BASED ON THE FOURTH UNIVERSAL DEFINITIONS OF MYOCARDIAL INFARCTION. THE UPPER REFERENCE LIMIT (URL) OF TROPONIN, DEFINED THE 99TH PERCENTILE OF cTnI DISTRIBUTION IN A REFERENCE POPULATION, HAS BEEN CONFIRMED THE DECISION THRESHOLD FOR [place] DIAGNOSIS.Performed By: #### BMP #### [facility] [address] [place] [address] Dr. Arden BoogieO50 ng/mLNormal9-82Southern [facility] Medical CenterComment on above: Performed By: #### BMP #### [facility] [address] [place] [address] Dr. Arden Marie AUTO DIFFon 19-84-1107UIUX #0.2 103/ulCritically high0.0-0.1 The [facility] HospitalComment on above:Performed By: #### CBC #### [facility] [address] [place] [address] Dr. Arden MagallonBasophils/100 WBC (Bld)2.2 %Critically high0.2-2.0[facility] Medical CenterComment on above:Performed By: #### CBC #### [facility] [address] [place] [address] Dr. Her ChangEO #1.3 103/ulCritically high0.0-0.7The [facility] HospitalComment on above:Performed By: #### CBC #### [facility] [address] [place] [address] Dr. Arden Carranzaosinophils/100 WBC (Bld)16.5 %Critically high0.9-7.0The [facility] HospitalComment on above:Performed By: #### CBC #### [facility] [address] [place] [address] Dr. Arden Carranzarythrocyte distribution width (RBC) [Ratio]14.3 %Cmryxj91.0-15.0 The [facility] HospitalComment on above:Performed By: #### CBC #### [facility] [address] [place] [address] Dr. Arden MagallonHematocrit (Bld) [Volume fraction]38.3 %Lhwxvq05.0-48.0The [facility] HospitalComment on above:Performed By: #### CBC #### [facility] [address] [place] [address] Dr. Arden MagallonHemoglobin (Bld) [Mass/Vol]12.6 g/mPAzdeaq31.0-16.0The [facility] HospitalComment on above:Performed By: #### CBC #### [facility] [address] [place] [address] Dr. Arden Mathew #0.03 10e3/ulNormal0.00-0.03The [facility] HospitalComment on above:Performed By: #### CBC #### [facility] [address] [place] [address] Dr. Arden Mathew %0.4 %Normal0.0-0.5The [facility] HospitalComment on above: Performed By: #### CBC #### [facility] [address] [place] [address] Dr. Arden Alvarado #2.4 103/ulNormal1.2-3.8The [facility] HospitalComment on above:Performed By: #### CBC #### [facility] [address] [place] [address] Dr. Yilan ChangLymphocytes/100 WBC (Bld)30.0 %Llorqx57.5-60.0The [facility] HospitalComment on above:Performed By: #### CBC #### [facility] [address] [place] [address] Dr. Arden Rodríguez DIFF REQNONormalThe [facility] HospitalComment on above: Performed By: #### CBC #### [facility] [address] [place] [address] Dr. Arden Torres (RBC) [Entitic mass]30.7 wgJbcgbv25.7-34.0The [facility] HospitalComment on above:Performed By: #### CBC #### [facility] [address] [place] [address] Dr. Arden Torres (RBC) [Mass/Vol]32.9 g/jCPrtliq82.9-35.2The [facility] HospitalComment on above:Performed By: #### CBC #### [facility] [address] [place] [address] Dr. Arden Leonard (RBC) [Entitic vol]93.4 bWBqcswc36.0-99.0The [facility] HospitalComment on above:Performed By: #### CBC #### [facility] [address] [place] [address] Dr. Arden Nelson #1.1 103/ulCritically high0.3-0.8The [facility] Comment on above:Performed By: #### CBC #### [facility] [address] [place] [address] Dr. Arden Perrinocytes/100 WBC (Bld)14.2 %Critically high1.7-12.0The [facility] HospitalComment on above:Performed By: #### CBC #### [facility] [address] [place] [address] Dr. Arden Patterson #2.9 103/ulNormal1.4-6.5The [facility] HospitalComment on above:Performed By: #### CBC #### [facility] [address] [place] [address] Dr. Arden MagallonNeutrophils/100 WBC (Bld)36.7 %Critically low43.0-75.0The [facility] HospitalComment on above:Performed By: #### CBC #### [facility] [address] [address] [address] Arden MagallonPlatelet mean volume (Bld) [Entitic vol]11.4 fLNormal9.5-13.5The [facility] HospitalComment on above:Performed By: #### CBC #### [facility] [address] [address] [address] Arden MagallonPLT162 103/esClpyzr866-764Uka [facility] HospitalComment on above: Performed By: #### CBC #### [facility] [address] [place] [address] Dr. Arden MagallonRBC4.10 106/ulCritically low4.20-5.40The [facility] HospitalComment on above:Performed By: #### CBC #### [facility] [address] [place] [address] Dr. Arden MagallonWBC8.0 103/ulNormal4.0-11.0The [facility] HospitalComment on above: Performed By: #### CBC #### [facility] [address] [place] [address] Dr. Arden MagallonPROF CHEM 8 (BAS METB)on 88-05-3877Dtezv gap [Moles/Vol]11.8 mmol/LNormalThe [facility] HospitalComment on above:Performed By: #### BMP #### [facility] [address] [place] [address] Dr. Arden MagallonCalcium [Mass/Vol]9.7 mg/dLNormal8.5-10.1The [facility] Comment on above:Performed By: #### BMP #### [facility] [address] [place] [address] Dr. Arden MagallonChloride [Moles/Vol]105 mmol/DRzrjmz29-889Qhv [facility] Comment on above:Performed By: #### BMP #### [facility] [address] [address] [address] Arden MagallonCO2 [Moles/Vol]25.0 mmol/NQntgfy62.0-32.0[facility] Comment on above:Performed By: #### BMP #### [facility] [address] [address] [address] Arden MagallonCreatinine [Mass/Vol]1.07 mg/dLCritically high0.55-1.02The [facility] HospitalComment on above:Performed By: #### BMP #### [facility] [address] [address] [address] Her ChangEGFR-AF YNKYMOOQ86 mL/min/1.03l5Buhfwoaukx low>=60The [facility] HospitalComment on above:Performed By: #### BMP #### [facility] [address] [address] [address] Arden CarranzaGFR-NON AF QTBTXHUB65 mL/min/1.55x6Afudfqswnx low>=60The [facility] HospitalComment on above:Performed By: #### BMP #### [facility] [address] [address] [address] Arden MagallonGlucose [Mass/Vol]106 mg/zYEmohay33-589Pyd [facility] Comment on above:Performed By: #### BMP #### [facility] [address] [address] [address] Arden MagallonPotassium [Moles/Vol]3.8 mmol/LNormal3.5-5.1The [facility] Comment on above:Performed By: #### BMP #### [facility] [address] [address] [address] Arden MagallonSodium [Moles/Vol]138 mmol/HNfhaew470-287Pef [facility] Comment on above:Performed By: #### BMP #### [facility] [address] [address] [address] Arden MagallonUrea nitrogen [Mass/Vol]18.0 mg/dLNormal7.0-18.0The [facility] HospitalComment on above:Performed By: #### BMP #### [facility] [address] [address] [address] Arden MagallonUrea nitrogen/Creatinine [Mass ratio]16.8 mg/mgNoalThMercy Health Defiance HospitalComment on above:Performed By: #### BMP #### [facility] [address] [place] [address] Dr. Arden KevinC AUTO DIFFon [id number] #0.2 103/ulCritically high0.0-0.1 The [facility] HospitalComment on above:Performed By: #### CBC #### [facility] [address] [place] [address] Dr. Arden MagallonBasophils/100 WBC (Bld)2.1 %Critically high0.2-2.0The [facility]Com[facility] on above:Performed By: #### CBC #### [facility] [address] [place] [address] Dr. Her ChangEO #1.5 103/ulCritically high0.0-0.7The [facility] HospitalComment on above:Performed By: #### CBC #### [facility] [address] [place] [address] Dr. Arden Carranzaosinophils/100 WBC (Bld)16.6 %Critically high0.9-7.0The [facility]Com[facility] on above:Performed By: #### CBC #### [facility] [address] [place] [address] Dr. Arden Carranzarythrocyte distribution width (RBC) [Ratio]14.1 %Ebsrva15.0-15.0 [facility] on above:Performed By: #### CBC #### [facility] [address] [place] [address] Dr. Arden MagallonHematocrit (Bld) [Volume fraction]37.7 %Ktqpyh01.0-48.0[facility] on above:Performed By: #### CBC #### [facility] [address] [place] [address] Dr. Arden MagallonHemoglobin (Bld) [Mass/Vol]12.5 g/cBRssscs33.0-16.0The [facility] HospitalComment on above:Performed By: #### CBC #### [facility] [address] [address] [address] Arden Mathew #0.04 10e3/ulCritically high0.00-0.03The [facility] Comment on above:Performed By: #### CBC #### [facility] [address] [address] [address] Arden Mathew %0.4 %Normal0.0-0.5The [facility] HospitalComment on above: Performed By: #### CBC #### [facility] [address] [place] [address] Dr. Arden Alvarado #1.8 103/ulNormal1.2-3.8The [facility] HospitalComment on above:Performed By: #### CBC #### [facility] [address] [place] [address] Dr. Arden Vitalehocytes/100 WBC (Bld)19.6 %Critically low20.5-60.0The [facility] HospitalComment on above:Performed By: #### CBC #### [facility] [address] [place] [address] Dr. Arden Rodríguez DIFF REQNONormalThe [facility] HospitalComment on above: Performed By: #### CBC #### [facility] [address] [place] [address] Dr. Arden Torres (RBC) [Entitic mass]31.1 xqOjgvcg00.7-34.0The [facility] HospitalComment on above:Performed By: #### CBC #### [facility] [address] [place] [address] Dr. Arden Torres (RBC) [Mass/Vol]33.2 g/iUUfmdro97.9-35.2The [facility] HospitalComment on above:Performed By: #### CBC #### [facility] [address] [place] [address] Dr. Arden Torres (RBC) [Entitic vol]93.8 hMZvyykn09.0-99.0The [facility] HospitalComment on above:Performed By: #### CBC #### [facility] [address] [place] [address] Dr. Arden Nelson #1.1 103/ulCritically high0.3-0.8The [facility] Comment on above:Performed By: #### CBC #### [facility] [address] [place] [address] Dr. Arden Perrinocytes/100 WBC (Bld)12.1 %Critically high1.7-12.0The [facility] HospitalComment on above:Performed By: #### CBC #### [facility] [address] [place] [address] Dr. Arden Patterson #4.6 103/ulNormal1.4-6.5The [facility] HospitalComment on above:Performed By: #### CBC #### [facility] [address] [place] [address] Dr. Arden Miguelutrophils/100 WBC (Bld)49.2 %Tjumyx87.0-75.0The [facility] HospitalComment on above:Performed By: #### CBC #### [facility] [address] [place] [address] Dr. Arden Villafana mean volume (Bld) [Entitic vol]10.8 fLNormal9.5-13.5The [facility] HospitalComment on above:Performed By: #### CBC #### [facility] [address] [place] [address] Dr. Arden MagallonPLT149 103/ulCritically img600-369Pcc [facility] HospitalComment on above:Performed By: #### CBC #### [facility] [address] [place] [address] Dr. Arden MagallonRBC4.02 106/ulCritically low4.20-5.40The [facility] HospitalComment on above:Performed By: #### CBC #### [facility] [address] [place] [address] Dr. Arden MagallonWBC9.3 103/ulNormal4.0-11.0[facility] on above: Performed By: #### CBC #### [facility] [address] [place] [address] Dr. Arden MagallonCovid-19 PCR ([facility])on [id number]-CoV-2 (COVID-19) RNA ISABELLA+probe Ql (Unsp spec)Not detectedNormalNOT DETECTEDThe [facility] Comment on above:Result Comment: This test is not yet approved or cleared by the [place] FDA. When there are no FDA-approved or cleared tests available, and other criteria are met, FDA can make tests available under an emergency access mechanism called an Emergency Use Authorization (EUA). The EUA for this test is supported by the Cloth Designer of Health and Human Service's (HHS's) declaration [...] consistent with SARS-CoV-2.Performed By: #### CBC #### [facility] [address] [place] [address] Dr. Arden MagallonINFLUENZA A AND B AGon [id number] [facility] HospitalComchel[facility] hospital on above:Result Comment: Negative for Flu A protein angiten. Infection due to Flu A cannot be ruled out. FluA angiten in the sample may be below the detection limit of the test.Performed By: #### CBC #### [facility] [address] [place] [address] Dr. Arden MagallonINFLUBNEGHSWVUMedicine Barnesville Hospital on above: Result Comment: Negative for Flu B protein antigen. Infection due to Flu B cannot be ruled out. FluB antigen in the sample may be below the detection limit of the test.Performed By: #### CBC #### [facility] [address] [address] [address] Arden Em AGNegativeNormalNEGATIVE SEE COMMENTThe [facility] HospitalComment on above:Performed By: #### CBC #### [facility] [address] [place] [address] Dr. Arden Meeks AGNegativeNormalNEGATIVE SEE COMMENTThe [facility] HospitalComment on above:Performed By: #### CBC #### [facility] [address] [place] [address] Dr. Arden MagallonINTERNAL CONTROLSWithin Normal LimitsNormalWithin Normal Limits The [facility] HospitalComment on above:Performed By: #### CBC #### [facility] [address] [place] [address] Dr. Arden MagallonPROF CHEM 8 (BAS METB)on 01-21-1965Oxiya gap [Moles/Vol]10.8 mmol/LNormalThe [facility] HospitalComment on above:Performed By: #### PT, DDIM #### [facility] [address] [place] [address] Dr. Arden MagallonCalcium [Mass/Vol]9.3 mg/dLNormal8.5-10.1The [facility] Comment on above:Performed By: #### PT, DDIM #### [facility] [address] [place] [address] Dr. Arden MagallonChloride [Moles/Vol]107 mmol/SHnimvs04-892Jwq [facility] Comment on above:Performed By: #### PT, DDIM #### [facility] [address] [place] [address] Dr. Arden MagallonCO2 [Moles/Vol]28.0 mmol/MGhadpf65.0-32.0The [facility] Comment on above:Performed By: #### PT, DDIM #### [facility] [address] [place] [address] Dr. Arden MagallonCreatinine [Mass/Vol]0.98 mg/dLNormal0.55-1.02The [facility] HospitalComment on above:Performed By: #### PT, DDIM #### [facility] [address] [place] [address] Dr. Arden CarranzaGFR-AF [facility]>60Normal>=60The [facility] HospitalComment on above:Performed By: #### PT, DDIM #### [facility] [address] [place] [address] Dr. Arden CarranzaGFR-NON AF VPCYNCIF28 mL/min/1.38x2Tjrdfmyojr low>=60The [facility] HospitalComment on above:Performed By: #### PT, DDIM #### [facility] [address] [place] [address] Dr. Arden MagallonGlucose [Mass/Vol]111 mg/dLCritically bgdp02-813Sei [facility] HospitalComment on above:Performed By: #### PT, DDIM #### [facility] [address] [place] [address] Dr. Arden MagallonPotassium [Moles/Vol]3.8 mmol/LNormal3.5-5.1[facility] Comment on above:Performed By: #### PT, DDIM #### [facility] [address] [place] [address] Dr. Arden Jefferydium [Moles/Vol]142 mmol/VUsujwh812-240JyaSouthern [facility] Medical Center Comment on above:Performed By: #### PT, DDIM #### [facility] [address] [place] [address] Dr. Arden MagallonUrea nitrogen [Mass/Vol]15.0 mg/dLNormal7.0-18.0The [facility] HospitalComment on above:Performed By: #### PT, DDIM #### [facility] [address] [place] [address] Dr. Arden MagallonUrea nitrogen/Creatinine [Mass ratio]15.3 mg/mgNormalThe [facility] HospitalComment on above:Performed By: #### PT, DDIM #### [facility] [address] [place] [address] Dr. Arden MagallonXR CHEST 1 Von [id number] CHEST 1 VEXAMINATION: XR CHEST 1 V [...] Electronically authenticated by: HARJINDER RAMIREZ Date: 2022-09-26 10:22[facility] AUTO DIFFon [id number] #0.2 103/ulCritically high 0.0-0.1The [facility] HospitalComment on above:Performed By: #### CBC #### [facility] [address] [address] [address] Arden MagallonBasophils/100 WBC (Bld)2.0 %Normal0.2-2.0The [facility] Comment on above:Performed By: #### CBC #### [facility] [address] [address] [address] Arden Valdes #0.8 103/ulCritically high0.0-0.7The [facility] HospitalComment on above:Performed By: #### CBC #### [facility] [address] [address] [address] Arden Carranzaosinophils/100 WBC (Bld)9.7 %Critically high0.9-7.0The [facility] HospitalComment on above:Performed By: #### CBC #### [facility] [address] [address] [address] Arden Carranzarythrocyte distribution width (RBC) [Ratio]14.2 %Iaxlam49.0-15.0 The [facility] HospitalComment on above:Performed By: #### CBC #### [facility] [address] [address] [address] Arden MagallonHematocrit (Bld) [Volume fraction]39.2 %Myvhnd57.0-48.0The [facility] HospitalComment on above:Performed By: #### CBC #### [facility] [address] [place] [address] Dr. Arden MagallonHemoglobin (Bld) [Mass/Vol]12.7 g/mJBhmzvx53.0-16.0The [facility] HospitalComment on above:Performed By: #### CBC #### [facility] [address] [place] [address] Dr. Arden Mathew #0.04 10e3/ulCritically high0.00-0.03The [facility] Comment on above:Performed By: #### CBC #### [facility] [address] [place] [address] Dr. Arden Mathew %0.5 %Normal0.0-0.5The [facility] HospitalComment on above: Performed By: #### CBC #### [facility] [address] [place] [address] Dr. Arden Alvarado #1.7 103/ulNormal1.2-3.8The [facility] HospitalComment on above:Performed By: #### CBC #### [facility] [address] [place] [address] Dr. Arden Vitalehocytes/100 WBC (Bld)19.2 %Critically low20.5-60.0The [facility] HospitalComment on above:Performed By: #### CBC #### [facility] [address] [place] [address] Dr. Arden Rodríguez DIFF REQNONormalThe [facility] HospitalComment on above: Performed By: #### CBC #### [facility] [address] [place] [address] Dr. Arden Eaton (RBC) [Entitic mass]31.1 hyWhqfuj49.7-34.0The [facility] HospitalComment on above:Performed By: #### CBC #### [facility] [address] [place] [address] Dr. Arden Torres (RBC) [Mass/Vol]32.4 g/bJVnshyl82.9-35.2The [facility] HospitalComment on above:Performed By: #### CBC #### [facility] [address] [place] [address] Dr. Arden Leonard (RBC) [Entitic vol]96.1 aDBgbcgp55.0-99.0The [facility] HospitalComment on above:Performed By: #### CBC #### [facility] [address] [place] [address] Dr. Arden Nelson #0.8 103/ulNormal0.3-0.8The [facility] HospitalComment on above:Performed By: #### CBC #### [facility] [address] [place] [address] Dr. Arden Perrinocytes/100 WBC (Bld)9.5 %Normal1.7-12.0The [facility] Comment on above:Performed By: #### CBC #### [facility] [address] [place] [address] Dr. Arden Patterson #5.2 103/ulNormal1.4-6.5The [facility] HospitalComment on above:Performed By: #### CBC #### [facility] [address] [place] [address] Dr. Arden Miguelutrophils/100 WBC (Bld)59.1 %Lofdhi22.0-75.0The [facility] HospitalComment on above:Performed By: #### CBC #### [facility] [address] [place] [address] Dr. Arden Salaslet mean volume (Bld) [Entitic vol]11.0 fLNormal9.5-13.5The [facility] HospitalComment on above:Performed By: #### CBC #### [facility] [address] [place] [address] Dr. Arden AyersT167 103/mmZgkcmn630-094Bpf [facility] HospitalComment on above: Performed By: #### CBC #### [facility] [address] [place] [address] Dr. Arden MagallonRBC4.08 106/ulCritically low4.20-5.40The [facility] HospitalComment on above:Performed By: #### CBC #### [facility] [address] [place] [address] Dr. Arden MagallonWBC8.7 103/ulNormal4.0-11.0The [facility] HospitalComment on above: Performed By: #### CBC #### [facility] [address] [place] [address] Dr. Arden MagallonPROF CHEM 8 (BAS METB)on 79-44-6249Epalr gap [Moles/Vol]10.4 mmol/LNormalThe [facility] HospitalComment on above:Performed By: #### BMP #### [facility] [address] [place] [address] Dr. Arden MagallonCalcium [Mass/Vol]9.9 mg/dLNormal8.5-10.1The [facility] Comment on above:Performed By: #### BMP #### [facility] [address] [place] [address] Dr. Arden MagallonChloride [Moles/Vol]104 mmol/HDqhhzm57-838Hrw [facility] Comment on above:Performed By: #### BMP #### [facility] [address] [place] [address] Dr. Arden MagallonCO2 [Moles/Vol]28.0 mmol/SFqtwly04.0-32.0The [facility] Comment on above:Performed By: #### BMP #### [facility] [address] [place] [address] Dr. Arden MagallonCreatinine [Mass/Vol]1.20 mg/dLCritically high0.55-1.02The [facility] HospitalComment on above:Performed By: #### BMP #### [facility] [address] [place] [address] Dr. Her ChangEGFR-AF GZKSGTMQ88 mL/min/1.97a4Qifetpoklm low>=60The [facility] HospitalComment on above:Performed By: #### BMP #### [facility] [address] [address] [address] Arden CarranzaGFR-NON AF MTDFHFTE22 mL/min/1.66e4Zuazhnoukn low>=60The [facility] HospitalComment on above:Performed By: #### BMP #### [facility] [address] [address] [address] Arden MagallonGlucose [Mass/Vol]133 mg/dLCritically wqgi75-044Iez [facility] HospitalComment on above:Performed By: #### BMP #### [facility] [address] [address] [address] Arden MagallonPotassium [Moles/Vol]3.4 mmol/LCritically low3.5-5.1The [facility] HospitalComment on above:Performed By: #### BMP #### [facility] [address] [place] [address] Dr. Arden MagallonSodium [Moles/Vol]139 mmol/DMrsisl961-133Ozu [facility] Comment on above:Performed By: #### BMP #### [facility] [address] [address] [address] Arden MagallonUrea nitrogen [Mass/Vol]19.0 mg/dLCritically high7.0-18.0The [facility] HospitalComment on above:Performed By: #### BMP #### [facility] [address] [place] [address] Dr. Arden MagallonUrea nitrogen/Creatinine [Mass ratio]15.8 mg/mgNormalThe [facility] HospitalComment on above:Performed By: #### BMP #### [facility] [address] [place] [address] Dr. Arden Khalil 00-48-3978CZE9.918 uIU/mLNormal0.358-3.740The [facility] HospitalComment on above:Performed By: #### BMP #### [facility] [address] [place] [address] Dr. Arden Gomez 39-57-7918Jpuiavzoxca peptide B (Bld) [Mass/Vol]366.0 pg/mL Normal<=1,800.0The [facility] HospitalComment on above:Performed By: #### BNP, CMP #### [facility] [address] [place] [address] Dr. Arden Marie AUTO DIFFon 12-03-2892HOWO #0.1 103/ulNormal0.0-0.1The [facility] Centerment on above:Performed By: #### CBC #### [facility] [address] [place] [address] Dr. Arden MagallonBasophils/100 WBC (Bld)1.7 %Normal0.2-2.0The [facility] Comment on above:Performed By: #### CBC #### [facility] [address] [place] [address] Dr. Arden Valdes #0.7 103/ulNormal0.0-0.7The [facility] on above: Performed By: #### CBC #### [facility] [address] [place] [address] Dr. Arden Carranzaosinophils/100 WBC (Bld)9.1 %Critically high0.9-7.0The [facility] Centerment on above:Performed By: #### CBC #### [facility] [address] [place] [address] Dr. Arden Carranzarythrocyte distribution width (RBC) [Ratio]14.4 %Zowfry24.0-15.0 The [facility] Centerment on above:Performed By: #### CBC #### [facility] [address] [place] [address] Dr. Arden MagallonHematocrit (Bld) [Volume fraction]39.0 %Pfxinp48.0-48.0The [facility] HospitalComment on above:Performed By: #### CBC #### [facility] [address] [place] [address] Dr. Arden MagallonHemoglobin (Bld) [Mass/Vol]12.8 g/bHZotfnn78.0-16.0The [facility] Centerment on above:Performed By: #### CBC #### [facility] [address] [place] [address] Dr. Arden Mathew #0.02 10e3/ulNormal0.00-0.03The [facility] HospitalComment on above:Performed By: #### CBC #### [facility] [address] [place] [address] Dr. Arden Mathew %0.3 %Normal0.0-0.5The [facility] HospitalComment on above: Performed By: #### CBC #### [facility] [address] [place] [address] Dr. Arden Alvarado #1.8 103/ulNormal1.2-3.8The [facility] HospitalComment on above:Performed By: #### CBC #### [facility] [address] [place] [address] Dr. Arden Vitalehocytes/100 WBC (Bld)23.6 %Pkegnb12.5-60.0The [facility] HospitalComment on above:Performed By: #### CBC #### [facility] [address] [place] [address] Dr. Arden FerroUAL DIFF REQNONormalThe [facility] HospitalComment on above: Performed By: #### CBC #### [facility] [address] [place] [address] Dr. Arden Torres (RBC) [Entitic mass]31.0 hiSauoni58.7-34.0The [facility] HospitalComment on above:Performed By: #### CBC #### [facility] [address] [place] [address] Dr. Arden Torres (RBC) [Mass/Vol]32.8 g/zWSrkrfs74.9-35.2The [facility] HospitalComment on above:Performed By: #### CBC #### [facility] [address] [place] [address] Dr. Arden Torres (RBC) [Entitic vol]94.4 aSTbrtmk19.0-99.0The [facility] HospitalComment on above:Performed By: #### CBC #### [facility] [address] [place] [address] Dr. Arden Nelson #1.1 103/ulCritically high0.3-0.8The [facility] Comment on above:Performed By: #### CBC #### [facility] [address] [address] [address] Arden Perrinocytes/100 WBC (Bld)15.2 %Critically high1.7-12.0The [facility] HospitalComment on above:Performed By: #### CBC #### [facility] [address] [place] [address] Dr. Arden Patterson #3.8 103/ulNormal1.4-6.5The [facility] HospitalComment on above:Performed By: #### CBC #### [facility] [address] [place] [address] Dr. Arden Miguelutrophils/100 WBC (Bld)50.1 %Hdwjjf40.0-75.0The [facility] HospitalComment on above:Performed By: #### CBC #### [facility] [address] [place] [address] Dr. Arden Salaslet mean volume (Bld) [Entitic vol]11.0 fLNormal9.5-13.5The [facility] HospitalComment on above:Performed By: #### CBC #### [facility] [address] [place] [address] Dr. Arden MagallonPLT149 103/ulCritically csp956-966Wzx [facility] HospitalComment on above:Performed By: #### CBC #### [facility] [address] [place] [address] Dr. Arden MagallonRBC4.13 106/ulCritically low4.20-5.40The [facility] HospitalComment on above:Performed By: #### CBC #### [facility] [address] [place] [address] Dr. Arden MagallonWBC7.5 103/ulNormal4.0-11.0The [facility] HospitalComment on above: Performed By: #### CBC #### [facility] [address] [place] [address] Dr. Arden AdanDIMERon 43-79-4698K-DIMER0.32 mg/L FEUNormal<=0.59The [facility] on above:Performed By: #### PT, DDIM #### [facility] [address] [place] [address] Dr. Arden Crespo COMMENTSSEE [facility] on above:Result Comment: Increases in D-Dimer [...] hospitalization. Performed By: #### PT, DDIM #### [facility] [address] [place] [address] Dr. Arden MagallonPROAnshu 14(COMP METB)on 30-50-3634Fdwdgpm [Mass/Vol]3.5 g/dLNormal 3.4-5.0The [facility] on above:Performed By: #### BNP, CMP #### [facility] [address] [place] [address] Dr. Arden MagallonAlbumin/Globulin [Mass ratio]1.2 {ratio}NormalThe [facility] on above:Performed By: #### BNP, CMP #### [facility] [address] [place] [address] Dr. Arden Amos [Catalytic activity/Vol]57 U/RKcyodm22-187Yeu [facility] on above:Performed By: #### BNP, CMP #### [facility] [address] [place] [address] Dr. Arden Wyman [Catalytic activity/Vol]16 U/GDhchpk02-92Wok [facility] on above:Performed By: #### BNP, CMP #### [facility] [address] [place] [address] Dr. Arden Lopez gap [Moles/Vol]9.1 mmol/LNormalThe [facility] HospitalComment on above:Performed By: #### BNP, CMP #### [facility] [address] [place] [address] Dr. Arden MagallonAST [Catalytic activity/Vol]17 U/ZBwtpcn05-57Kgd [facility] HospitalComment on above:Performed By: #### BNP, CMP #### [facility] [address] [place] [address] Dr. Arden MagallonBilirubin [Mass/Vol]0.3 mg/dLNormal0.2-1.0The [facility] Comment on above:Performed By: #### BNP, CMP #### [facility] [address] [place] [address] Dr. Arden MagallonCalcium [Mass/Vol]9.6 mg/dLNormal8.5-10.1The [facility] Comment on above:Performed By: #### BNP, CMP #### [facility] [address] [place] [address] Dr. Arden MagallonChloride [Moles/Vol]106 mmol/ZJdnsog72-478Yhi [facility] Comment on above:Performed By: #### BNP, CMP #### [facility] [address] [place] [address] Dr. Arden MagallonCO2 [Moles/Vol]24.9 mmol/OAghpru62.0-32.0The [facility] Comment on above:Performed By: #### BNP, CMP #### [facility] [address] [place] [address] Dr. Arden MagallonCreatinine [Mass/Vol]1.06 mg/dLCritically high0.55-1.02The [facility] HospitalComment on above:Performed By: #### BNP, CMP #### [facility] [address] [place] [address] Dr. Arden CarranzaGFR-AF ST HELENIAN=60Normal>=60The [facility] HospitalComment on above:Performed By: #### BNP, CMP #### [facility] [address] [place] [address] Dr. Arden CarranzaGFR-NON AF TCTVGQYZ42 mL/min/1.49q5Uumxhelkpj low>=60The [facility] HospitalComment on above:Performed By: #### BNP, CMP #### [facility] [address] [address] [address] Arden MagallonGlobulin (S) [Mass/Vol]3.0 g/dLNormalThMercy Health Defiance HospitalComment on above:Performed By: #### BNP, CMP #### [facility] [address] [address] [address] Arden MagallonGlucose [Mass/Vol]111 mg/dLCritically yjng73-703Wkm [facility] HospitalComment on above:Performed By: #### BNP, CMP #### [facility] [address] [place] [address] Dr. Arden MagallonPotassium [Moles/Vol]4.0 mmol/LNormal3.5-5.1The [facility] Comment on above:Performed By: #### BNP, CMP #### [facility] [address] [place] [address] Dr. Arden MagallonProtein [Mass/Vol]6.5 g/dLNormal6.4-8.2The [facility] Comment on above:Performed By: #### BNP, CMP #### [facility] [address] [place] [address] Dr. Arden MagallonSodium [Moles/Vol]136 mmol/DHricsb992-885Ofz [facility] Comment on above:Performed By: #### BNP, CMP #### [facility] [address] [place] [address] Dr. Arden MagallonUrea nitrogen [Mass/Vol]16.0 mg/dLNormal7.0-18.0The [facility] HospitalComment on above:Performed By: #### BNP, CMP #### [facility] [address] [place] [address] Dr. Arden MagallonUrea nitrogen/Creatinine [Mass ratio]15.1 mg/mgNormalThe [facility] HospitalComment on above:Performed By: #### BNP, CMP #### [facility] [address] [place] [address] Dr. Arden Green, HIGH SENSITIVITYon [id number] pg/mLNormal 4.0-51.3The [facility] HospitalComment on above:Result Comment: CUT-OFF POINTS HAVE BEEN ESTABLISHED BASED ON THE FOURTH UNIVERSAL DEFINITIONS OF MYOCARDIAL INFARCTION. THE UPPER REFERENCE LIMIT (URL) OF TROPONIN, DEFINED THE 99TH PERCENTILE OF cTnI DISTRIBUTION IN A REFERENCE POPULATION, HAS BEEN CONFIRMED THE DECISION THRESHOLD FOR [place] DIAGNOSIS.Performed By: #### BNP, CMP #### [facility] [address] [place] [address] Dr. Arden MagallonXR CHEST 1 Von [id number] CHEST 1 VEXAMINATION: XR CHEST 1 V, [...] authenticated by: BERNIE NAVARRO Date: 2022-09-18 16:[address] [place] [address] AUTO DIFFon [id number] #0.1 103/ulNormal0.0-0.1The [facility] HospitalComment on above:Performed By: #### BMP #### [facility] [address] [place] [address] Dr. Arden MagallonBasophils/100 WBC (Bld)2.3 %Critically high0.2-2.0The [facility] HospitalComment on above:Performed By: #### BMP #### [facility] [address] [place] [address] Dr. Arden CarranzaO #0.5 103/ulNormal0.0-0.7The [facility] HospitalComment on above: Performed By: #### BMP #### [facility] [address] [place] [address] Dr. Arden Carranzaosinophils/100 WBC (Bld)8.0 %Critically high0.9-7.0The [facility] HospitalComment on above:Performed By: #### BMP #### [facility] [address] [place] [address] Dr. Arden Carranzarythrocyte distribution width (RBC) [Ratio]13.8 %Bpwrbi90.0-15.0 The [facility] HospitalComment on above:Performed By: #### BMP #### [facility] [address] [place] [address] Dr. Arden MagallonHematocrit (Bld) [Volume fraction]40.5 %Jnqser08.0-48.0The [facility] HospitalComment on above:Performed By: #### BMP #### [facility] [address] [place] [address] Dr. Arden MagallonHemoglobin (Bld) [Mass/Vol]13.5 g/oLVnbaer87.0-16.0The [facility] HospitalComment on above:Performed By: #### BMP #### [facility] [address] [place] [address] Dr. Arden Mathew #0.01 10e3/ulNormal0.00-0.03The [facility] HospitalComment on above:Performed By: #### BMP #### [facility] [address] [place] [address] Dr. Arden Mathew %0.2 %Normal0.0-0.5The [facility] HospitalComment on above: Performed By: #### BMP #### [facility] [address] [place] [address] Dr. Arden AlcantaraMPH #1.5 103/ulNormal1.2-3.8The [facility] HospitalComment on above:Performed By: #### BMP #### [facility] [address] [place] [address] Dr. Arden Alcantaramphocytes/100 WBC (Bld)24.9 %Vnflzv55.5-60.0The [facility] HospitalComment on above:Performed By: #### BMP #### [facility] [address] [place] [address] Dr. Arden Rodríguez DIFF REQNONormalThe [facility] HospitalComment on above: Performed By: #### BMP #### [facility] [address] [place] [address] Dr. Arden Torres (RBC) [Entitic mass]31.1 qiFtvhlo92.7-34.0The [facility] HospitalComment on above:Performed By: #### BMP #### [facility] [address] [place] [address] Dr. Arden Torres (RBC) [Mass/Vol]33.3 g/pSQzowsl17.9-35.2The [facility] HospitalComment on above:Performed By: #### BMP #### [facility] [address] [place] [address] Dr. Arden Torres (RBC) [Entitic vol]93.3 wNQdkzon68.0-99.0The [facility] HospitalComment on above:Performed By: #### BMP #### [facility] [address] [place] [address] Dr. Arden Nelson #1.0 103/ulCritically high0.3-0.8The [facility] Comment on above:Performed By: #### BMP #### [facility] [address] [place] [address] Dr. Arden Perrinocytes/100 WBC (Bld)16.0 %Critically high1.7-12.0The [facility] HospitalComment on above:Performed By: #### BMP #### [facility] [address] [place] [address] Dr. Arden Patterson #2.9 103/ulNormal1.4-6.5The [facility] HospitalComment on above:Performed By: #### BMP #### [facility] [address] [address] [address] Arden MagallonNeutrophils/100 WBC (Bld)48.6 %Rxoxgc57.0-75.0The [facility] HospitalComment on above:Performed By: #### BMP #### [facility] [address] [place] [address] Dr. Arden MagallonPlatelet mean volume (Bld) [Entitic vol]10.8 fLNormal9.5-13.5The [facility] HospitalComment on above:Performed By: #### BMP #### [facility] [address] [place] [address] Dr. Arden MagallonPLT138 103/ulCritically edu807-960Mqk [facility] HospitalComment on above:Performed By: #### BMP #### [facility] [address] [place] [address] Dr. Arden MagallonRBC4.34 106/ulNormal4.20-5.40The [facility] HospitalComment on above:Performed By: #### BMP #### [facility] [address] [place] [address] Dr. Arden MagallonWBC6.0 103/ulNormal4.0-11.0The [facility] HospitalComment on above: Performed By: #### BMP #### [facility] [address] [place] [address] Dr. Arden MagallonPROF CHEM 8 (BAS METB)on 32-50-9541Hqoox gap [Moles/Vol]9.0 mmol/LNormalThe [facility] HospitalComment on above:Performed By: #### PT, DDIM #### [facility] [address] [place] [address] Dr. Arden MagallonCalcium [Mass/Vol]9.6 mg/dLNormal8.5-10.1The [facility] Comment on above:Performed By: #### PT, DDIM #### [facility] [address] [place] [address] Dr. Arden MagallonChloride [Moles/Vol]105 mmol/EYeayoc26-303Qcu [facility] Comment on above:Performed By: #### PT, DDIM #### [facility] [address] [address] [address] Arden MagallonCO2 [Moles/Vol]29.1 mmol/VShttri96.0-32.0The [facility] Comment on above:Performed By: #### PT, DDIM #### [facility] [address] [address] [address] Arden MagallonCreatinine [Mass/Vol]1.00 mg/dLNormal0.55-1.02[facility]Comment on above:Performed By: #### PT, DDIM #### [facility] [address] [address] [address] Arden CarranzaGFR-AF [facility] HELEN[facility]>60Normal>=60The [facility] HospitalComment on above:Performed By: #### PT, DDIM #### [facility] [address] [place] [address] Dr. Arden CarranzaGFR-NON AF ZOOVOQED06 mL/min/1.81y6Jmaxlwhdxi low>=60The [facility] HospitalComment on above:Performed By: #### PT, DDIM #### [facility] [address] [address] [address] Arden MagallonGlucose [Mass/Vol]116 mg/dLCritically cndz51-549Zay [facility] HospitalComment on above:Performed By: #### PT, DDIM #### [facility] [address] [address] [address] Arden MagallonPotassium [Moles/Vol]4.1 mmol/LNormal3.5-5.1The [facility] Comment on above:Performed By: #### PT, DDIM #### [facility] [address] [address] [address] Arden MagallonSodium [Moles/Vol]139 mmol/UMiyjny898-442Sej [facility] Comment on above:Performed By: #### PT, DDIM #### [facility] [address] [address] [address] Arden MagallonUrea nitrogen [Mass/Vol]15.0 mg/dLNormal7.0-18.0The [facility] HospitalComment on above:Performed By: #### PT, DDIM #### [facility] [address] [place] [address] Dr. Arden MagallonUrea nitrogen/Creatinine [Mass ratio]15.0 mg/mgNormalThe [facility] HospitalComment on above:Performed By: #### PT, DDIM #### [facility] [address] [place] [address] Dr. Arden KevinC AUTO DIFFon [id number] #0.2 103/ulCritically high0.0-0.1 [facility] CenterComment on above:Performed By: #### BNP, CMP #### [facility] [address] [place] [address] Dr. Arden MagallonBasophils/100 WBC (Bld)2.7 %Critically high0.2-2.0The [facility] HospitalComment on above:Performed By: #### BNP, CMP #### [facility] [address] [place] [address] Dr. Arden Valdes #0.5 103/ulNormal0.0-0.7The [facility] HospitalComment on above: Performed By: #### BNP, CMP #### [facility] [address] [place] [address] Dr. Arden Carranzaosinophils/100 WBC (Bld)6.7 %Normal0.9-7.0[facility] Comment on above:Performed By: #### BNP, CMP #### [facility] [address] [place] [address] Dr. Arden Carranzarythrocyte distribution width (RBC) [Ratio]14.3 %Ldlzvl11.0-15.0 [facility] CenterComment on above:Performed By: #### BNP, CMP #### [facility] [address] [place] [address] Dr. Arden MagallonHematocrit (Bld) [Volume fraction]43.1 %Yfjnzh80.0-48.0The [facility] HospitalComment on above:Performed By: #### BNP, CMP #### [facility] [address] [place] [address] Dr. Arden MagallonHemoglobin (Bld) [Mass/Vol]14.5 g/dSPyioua29.0-16.0The [facility] HospitalComment on above:Performed By: #### BNP, CMP #### [facility] [address] [place] [address] Dr. Arden Mathew #0.02 10e3/ulNormal0.00-0.03The [facility] HospitalComment on above:Performed By: #### BNP, CMP #### [facility] [address] [place] [address] Dr. Arden Mathew %0.3 %Normal0.0-0.5The [facility] HospitalComment on above: Performed By: #### BNP, CMP #### [facility] [address] [place] [address] Dr. Arden Alvarado #3.1 103/ulNormal1.2-3.8The [facility] HospitalComment on above:Performed By: #### BNP, CMP #### [facility] [address] [place] [address] Dr. Arden Vitalehocytes/100 WBC (Bld)41.0 %Ntwzqx19.5-60.0The [facility] on above:Performed By: #### BNP, CMP #### [facility] [address] [place] [address] Dr. Arden FerroUAL DIFF REQNONormalThe [facility] HospitalComment on above: Performed By: #### BNP, CMP #### [facility] [address] [place] [address] Dr. Arden Eaton (RBC) [Entitic mass]31.6 twKipjvi48.7-34.0The [facility] HospitalComment on above:Performed By: #### BNP, CMP #### [facility] [address] [place] [address] Dr. Arden Torres (RBC) [Mass/Vol]33.6 g/rYTzcggd92.9-35.2The [facility] HospitalComment on above:Performed By: #### BNP, CMP #### [facility] [address] [place] [address] Dr. Arden Loenard (RBC) [Entitic vol]93.9 vTGgdeuu47.0-99.0The [facility] HospitalComment on above:Performed By: #### BNP, CMP #### [facility] [address] [place] [address] Dr. Arden Nelson #0.8 103/ulNormal0.3-0.8The [facility] HospitalComment on above:Performed By: #### BNP, CMP #### [facility] [address] [place] [address] Dr. Arden Perrinocytes/100 WBC (Bld)10.9 %Normal1.7-12.0The [facility] Comment on above:Performed By: #### BNP, CMP #### [facility] [address] [place] [address] Dr. Arden Patterson #2.9 103/ulNormal1.4-6.5The [facility] HospitalComment on above:Performed By: #### BNP, CMP #### [facility] [address] [place] [address] Dr. Arden Martinsophils/100 WBC (Bld)38.4 %Critically low43.0-75.0The [facility] HospitalComment on above:Performed By: #### BNP, CMP #### [facility] [address] [place] [address] Dr. Arden Salaslet mean volume (Bld) [Entitic vol]10.8 fLNormal9.5-13.5The [facility] HospitalComment on above:Performed By: #### BNP, CMP #### [facility] [address] [place] [address] Dr. Arden AyersT165 103/gqOvcifa648-251Sax [facility] HospitalComment on above: Performed By: #### BNP, CMP #### [facility] [address] [place] [address] Dr. Arden MagallonRBC4.59 106/ulNormal4.20-5.40The [facility] on above:Performed By: #### BNP, CMP #### [facility] [address] [place] [address] Dr. Arden MagallonWBC7.5 103/ulNormal4.0-11.0The [facility] Centerment on above: Performed By: #### BNP, CMP #### [facility] [address] [place] [address] Dr. Arden MagallonPROF 14(COMP METB)on [id number] [Mass/Vol]3.9 g/dLNormal 3.4-5.0The [facility] on above:Performed By: #### PT, DDIM #### [facility] [address] [place] [address] Dr. Arden MagallonAlbumin/Globulin [Mass ratio]1.2 {ratio}NormalThe [facility] HospitalComchelsea hospital on above:Performed By: #### PT, DDIM #### [facility] [address] [place] [address] Dr. Arden Amos [Catalytic activity/Vol]69 U/KAejymj94-746Twz [facility] on above:Performed By: #### PT, DDIM #### [facility] [address] [place] [address] Dr. Arden Wyman [Catalytic activity/Vol]16 U/RNyqzkt66-35Ytz [facility] on above:Performed By: #### PT, DDIM #### [facility] [address] [place] [address] Dr. Arden Lopez gap [Moles/Vol]8.6 mmol/LNormalThe [facility] HospitalComchel[facility] on above:Performed By: #### PT, DDIM #### [facility] [address] [place] [address] Dr. Arden Cabrera [Catalytic activity/Vol]14 U/LCritically cqy30-52Ntn [facility] on above:Performed By: #### PT, DDIM #### [facility] [address] [address] [address] Arden MagallonBilirubin [Mass/Vol]0.3 mg/dLNormal0.2-1.0The [facility] Comment on above:Performed By: #### PT, DDIM #### [facility] [address] [address] [address] Arden MagallonCalcium [Mass/Vol]9.5 mg/dLNormal8.5-10.1The [facility] Comment on above:Performed By: #### PT, DDIM #### [facility] [address] [address] [address] Arden MagallonChloride [Moles/Vol]104 mmol/EBqhjcl77-797Vcx [facility] Comment on above:Performed By: #### PT, DDIM #### [facility] [address] [place] [address] Dr. Arden MagallonCO2 [Moles/Vol]29.2 mmol/VUvkgyo01.0-32.0The [facility] Comment on above:Performed By: #### PT, DDIM #### [facility] [address] [address] [address] Arden MagallonCreatinine [Mass/Vol]1.25 mg/dLCritically high0.55-1.02The [facility] HospitalComment on above:Performed By: #### PT, DDIM #### [facility] [address] [address] [address] Arden CarranzaGFR-AF FNNTHBOY84 mL/min/1.88y7Iftbrtvdah low>=60The [facility] HospitalComment on above:Performed By: #### PT, DDIM #### [facility] [address] [address] [address] Arden CarranzaGFR-NON AF NUEWCXNM92 mL/min/1.88z3Uswedzajcn low>=60The [facility] HospitalComment on above:Performed By: #### PT, DDIM #### [facility] [address] [address] [address] Arden MagallonGlobulin (S) [Mass/Vol]3.3 g/dLNoMercy Health St. Joseph Warren HospitalComment on above:Performed By: #### PT, DDIM #### [facility] [address] [place] [address] Dr. Arden MagallonGlucose [Mass/Vol]119 mg/dLCritically nhqp60-836Tln [facility] HospitalComment on above:Performed By: #### PT, DDIM #### [facility] [address] [place] [address] Dr. Arden MagallonPotassium [Moles/Vol]3.8 mmol/LNormal3.5-5.1The [facility] Comment on above:Performed By: #### PT, DDIM #### [facility] [address] [place] [address] Dr. Arden MagallonProtein [Mass/Vol]7.2 g/dLNormal6.4-8.2The [facility] Comment on above:Performed By: #### PT, DDIM #### [facility] [address] [place] [address] Dr. Arden MagallonSodium [Moles/Vol]138 mmol/QBqesuj963-725Imv [facility] Comment on above:Performed By: #### PT, DDIM #### [facility] [address] [place] [address] Dr. Arden MagallonUrea nitrogen [Mass/Vol]24.0 mg/dLCritically high7.0-18.0The [facility] HospitalComment on above:Performed By: #### PT, DDIM #### [facility] [address] [place] [address] Dr. Arden Jones nitrogen/Creatinine [Mass ratio]19.2 mg/mgNoMercy Health St. Joseph Warren HospitalComment on above:Performed By: #### PT, DDIM #### [facility] [address] [place] [address] Dr. Arden Gomez 84-02-8568Vdindyggcxf peptide B (Bld) [Mass/Vol]427.0 pg/mL Normal<=1,800.0The [facility] HospitalComment on above:Performed By: #### PT, DDIM #### [facility] [address] [address] [address] Arden Caraballo CINDY ADMITon [id number] [Catalytic activity/Vol]56 U/L Aferxj68-165RnjNorwalk Memorial Hospitalment on above:Performed By: #### PT, DDIM #### [facility] [address] [address] [address] Arden Childs.MB [Mass/Vol]1.41 ng/mLNormal<=3.60The [facility] Comment on above:Performed By: #### PT, DDIM #### [facility] [address] [place] [address] Dr. Arden MagallonHSTROP9.0 pg/mLNormal4.0-51.3The [facility] on above:Result Comment: CUT-OFF POINTS HAVE BEEN ESTABLISHED BASED ON THE FOURTH UNIVERSAL DEFINITIONS OF MYOCARDIAL INFARCTION. THE UPPER REFERENCE LIMIT (URL) OF TROPONIN, DEFINED THE 99TH PERCENTILE OF cTnI DISTRIBUTION IN A REFERENCE POPULATION, HAS BEEN CONFIRMED THE DECISION THRESHOLD FOR [place] DIAGNOSIS.Performed By: #### PT, DDIM #### [facility] [address] [place] [address] Dr. Arden Chua99 ng/mLCritically high9-82The [facility] on above:Performed By: #### PT, DDIM #### [facility] [address] [place] [address] Dr. Arden Marie AUTO DIFFon [id number] #0.2 103/ulCritically high0.0-0.1 The [facility] HospitalComment on above:Performed By: #### CBC #### [facility] [address] [place] [address] Dr. Arden MagallonBasophils/100 WBC (Bld)2.2 %Critically high0.2-2.0The [facility] Centerment on above:Performed By: #### CBC #### [facility] [address] [place] [address] Dr. Arden Valdes #0.4 103/ulNormal0.0-0.7The [facility] HospitalComment on above: Performed By: #### CBC #### [facility] [address] [place] [address] Dr. Arden Carranzaosinophils/100 WBC (Bld)5.1 %Normal0.9-7.0The [facility] on above:Performed By: #### CBC #### [facility] [address] [place] [address] Dr. Arden Carranzarythrocyte distribution width (RBC) [Ratio]14.1 %Svvncs74.0-15.0 The [facility] HospitalComment on above:Performed By: #### CBC #### [facility] [address] [place] [address] Dr. Arden MagallonHematocrit (Bld) [Volume fraction]41.2 %Ptoczb79.0-48.0The [facility] HospitalComment on above:Performed By: #### CBC #### [facility] [address] [place] [address] Dr. Arden MagallonHemoglobin (Bld) [Mass/Vol]13.6 g/gZAqunai37.0-16.0The [facility] HospitalComment on above:Performed By: #### CBC #### [facility] [address] [place] [address] Dr. Arden Mathew #0.03 10e3/ulNormal0.00-0.03The [facility] HospitalComment on above:Performed By: #### CBC #### [facility] [address] [place] [address] Dr. Arden Mathew %0.4 %Normal0.0-0.5The [facility] HospitalComment on above: Performed By: #### CBC #### [facility] [address] [place] [address] Dr. Arden VitaleH #2.4 103/ulNormal1.2-3.8The [facility] HospitalComment on above:Performed By: #### CBC #### [facility] [address] [place] [address] Dr. Arden Alcantaramphocytes/100 WBC (Bld)30.1 %Fyppaw25.5-60.0The [facility] HospitalComment on above:Performed By: #### CBC #### [facility] [address] [place] [address] Dr. Arden Rodríguez DIFF REQNONormalThe [facility] HospitalComment on above: Performed By: #### CBC #### [facility] [address] [place] [address] Dr. Arden Torres (RBC) [Entitic mass]30.8 hyNguokt39.7-34.0The [facility] HospitalComment on above:Performed By: #### CBC #### [facility] [address] [place] [address] Dr. Arden Torres (RBC) [Mass/Vol]33.0 g/cGSbrxss49.9-35.2The [facility] HospitalComment on above:Performed By: #### CBC #### [facility] [address] [place] [address] Dr. Arden Leonard (RBC) [Entitic vol]93.4 sYRqefhi97.0-99.0The [facility] HospitalComment on above:Performed By: #### CBC #### [facility] [address] [place] [address] Dr. Arden Nelson #0.8 103/ulNormal0.3-0.8The [facility] HospitalComment on above:Performed By: #### CBC #### [facility] [address] [place] [address] Dr. Arden Perrinocytes/100 WBC (Bld)9.8 %Normal1.7-12.0The [facility] Comment on above:Performed By: #### CBC #### [facility] [address] [place] [address] Dr. Arden Patterson #4.2 103/ulNormal1.4-6.5The [facility] HospitalComment on above:Performed By: #### CBC #### [facility] [address] [place] [address] Dr. Yilan ChangNeutrophils/100 WBC (Bld)52.4 %Cibgzk36.0-75.0The [facility] HospitalComment on above:Performed By: #### CBC #### [facility] [address] [place] [address] Dr. Arden Villafana mean volume (Bld) [Entitic vol]10.7 fLNormal9.5-13.5The [facility] HospitalComment on above:Performed By: #### CBC #### [facility] [address] [place] [address] Dr. Arden MagallonPLT154 103/fqKcdrik206-145Hug [facility] HospitalComchelsea hospital on above: Performed By: #### CBC #### [facility] [address] [place] [address] Dr. Arden MagallonRBC4.41 106/ulNormal4.20-5.40The [facility] on above:Performed By: #### CBC #### [facility] [address] [place] [address] Dr. Arden MagallonWBC8.1 103/ulNormal4.0-11.0The [facility] HospitalComchelsea hospital on above: Performed By: #### CBC #### [facility] [address] [place] [address] Dr. Arden Madsen 14(COMP METB)on 36-21-0116Gghjaur [Mass/Vol]3.7 g/dLNormal 3.4-5.0The [facility] HospitalComment on above:Performed By: #### PT, DDIM #### [facility] [address] [place] [address] Dr. Arden MagallonAlbumin/Globulin [Mass ratio]1.2 {ratio}NormalThe [facility] on above:Performed By: #### PT, DDIM #### [facility] [address] [place] [address] Dr. Arden PughP [Catalytic activity/Vol]57 U/QQkunxc89-689Gra [facility] on above:Performed By: #### PT, DDIM #### [facility] [address] [address] [address] Arden PughT [Catalytic activity/Vol]17 U/RRgitet73-30Enf [facility] HospitalComment on above:Performed By: #### PT, DDIM #### [facility] [address] [place] [address] Dr. Arden MagallonAnion gap [Moles/Vol]9.1 mmol/LNormalThe [facility] HospitalComment on above:Performed By: #### PT, DDIM #### [facility] [address] [place] [address] Dr. Arden MagallonAST [Catalytic activity/Vol]12 U/LCritically vdr50-32Aqw [facility] HospitalComment on above:Performed By: #### PT, DDIM #### [facility] [address] [place] [address] Dr. Arden MagallonBilirubin [Mass/Vol]0.6 mg/dLNormal0.2-1.0The [facility] Comment on above:Performed By: #### PT, DDIM #### [facility] [address] [place] [address] Dr. Arden MagallonCalcium [Mass/Vol]9.5 mg/dLNormal8.5-10.1The [facility] Comment on above:Performed By: #### PT, DDIM #### [facility] [address] [place] [address] Dr. Arden MagallonChloride [Moles/Vol]105 mmol/AJwoleq61-495Jjk [facility] Comment on above:Performed By: #### PT, DDIM #### [facility] [address] [place] [address] Dr. Arden MagallonCO2 [Moles/Vol]27.9 mmol/NRrnlfs93.0-32.0The [facility] Comment on above:Performed By: #### PT, DDIM #### [facility] [address] [place] [address] Dr. Arden MagallonCreatinine [Mass/Vol]0.97 mg/dLNormal0.55-1.02The [facility] HospitalComment on above:Performed By: #### PT, DDIM #### [facility] [address] [address] [address] Arden CarranzaGFR-AF [facility] HELENIAN>60Normal>=60The [facility] HospitalComment on above:Performed By: #### PT, DDIM #### [facility] [address] [address] [address] Arden CarranzaGFR-NON AF GTBUAYAM93 mL/min/1.33g2Xltezbrgdm low>=60The [facility] HospitalComment on above:Performed By: #### PT, DDIM #### [facility] [address] [address] [address] Arden MagallonGlobulin (S) [Mass/Vol]3.0 g/dLNormalThe [facility] HospitalComment on above:Performed By: #### PT, DDIM #### [facility] [address] [address] [address] Arden MagallonGlucose [Mass/Vol]105 mg/iOKprhvy91-648Cno [facility] Comment on above:Performed By: #### PT, DDIM #### [facility] [address] [address] [address] Arden MagallonPotassium [Moles/Vol]4.0 mmol/LNormal3.5-5.1The [facility] Comment on above:Performed By: #### PT, DDIM #### [facility] [address] [address] [address] Arden MagallonProtein [Mass/Vol]6.7 g/dLNormal6.4-8.2The [facility] Comment on above:Performed By: #### PT, DDIM #### [facility] [address] [address] [address] Arden MagallonSodium [Moles/Vol]138 mmol/OOuggbz771-188Ojk [facility] Comment on above:Performed By: #### PT, DDIM #### [facility] [address] [address] [address] Arden MagallonUrea nitrogen [Mass/Vol]18.0 mg/dLNormal7.0-18.0The [facility] HospitalComment on above:Performed By: #### PT, DDIM #### [facility] [address] [address] [address] Arden Jones nitrogen/Creatinine [Mass ratio]18.6 mg/mgNoMercy Health St. Joseph Warren HospitalComchelsea hospital on above:Performed By: #### PT, DDIM #### [facility] [address] [place] [address] Dr. Arden MagallonPROTIMEon [id number] Coag (PPP) [Relative time]1.49 {INR} NormalThe [facility] on above:Performed By: #### BNP, CMP #### [facility] [address] [place] [address] Dr. Arden Cortez GUIDELINESSEE [facility] HospitalCom[facility] on above:Result Comment: DESIRED INR: 2.0 - 3.0 CONDITIONS NOT LISTED BELOW 2.5 - 3.5 FOR PROSTHETIC HEART VALVE REPLACEMENT 2.5 - 3.5 RECURRENT THROMBOSIS Performed By: #### BNP, CMP #### [facility] [address] [place] [address] Dr. Arden MagallonPT Coag (PPP) [Time]15.7 sCritically high9.0-11.6The [facility] on above:Performed By: #### BNP, CMP #### [facility] [address] [place] [address] Dr. Arden May 76-85-8517sXSE Coag (Bld) [Time]30.2 bWdaapz81.3-36.2[facility] on above:Performed By: #### BNP, CMP #### [facility] [address] [place] [address] Dr. Arden Green, HIGH SENSITIVITYon 27-29-7414FQDPJA1.3 pg/mLNormal 4.0-51.3The [facility] on above:Result Comment: CUT-OFF POINTS HAVE BEEN ESTABLISHED BASED ON THE FOURTH UNIVERSAL DEFINITIONS OF MYOCARDIAL INFARCTION. THE UPPER REFERENCE LIMIT (URL) OF TROPONIN, DEFINED THE 99TH PERCENTILE OF cTnI DISTRIBUTION IN A REFERENCE POPULATION, HAS BEEN CONFIRMED THE DECISION THRESHOLD FOR [place] DIAGNOSIS.Performed By: #### BMP #### [facility] [address] [place] [address] Dr. Arden MagallonXR CHEST 1 Von [id number] CHEST 1 VEXAM: XR CHEST 1 V [...] Electronically authenticated by: MOMO RICO Date: 2022-08-26 12:29[facility] HospitalBNMercy[facility] [id number] peptide B (Bld) [Mass/Vol]414.0 pg/mLNormal<=1,800.0The [facility] HospitalComment on above:Performed By: #### BMP #### [facility] [address] [place] [address] Dr. Arden KevinC AUTO DIFFon 57-94-1351YQDB #0.2 103/ulCritically high0.0-0.1 The [facility] HospitalComment on above:Performed By: #### BMP #### [facility] [address] [place] [address] Dr. Arden MagallonBasophils/100 WBC (Bld)2.8 %Critically high0.2-2.0The [facility] HospitalComment on above:Performed By: #### BMP #### [facility] [address] [place] [address] Dr. Arden Valdes #0.5 103/ulNormal0.0-0.7The [facility] HospitalComment on above: Performed By: #### BMP #### [facility] [address] [place] [address] Dr. Arden Carranzaosinophils/100 WBC (Bld)7.2 %Critically high0.9-7.0The [facility] Centerment on above:Performed By: #### BMP #### [facility] [address] [place] [address] Dr. Arden Carranzarythrocyte distribution width (RBC) [Ratio]14.1 %Egcpci93.0-15.0 The [facility] HospitalComment on above:Performed By: #### BMP #### [facility] [address] [place] [address] Dr. Arden MagallonHematocrit (Bld) [Volume fraction]41.2 %Zlfuxf30.0-48.0The [facility] on above:Performed By: #### BMP #### [facility] [address] [place] [address] Dr. Arden MagallonHemoglobin (Bld) [Mass/Vol]13.5 g/sTLyxtzc83.0-16.0The [facility] Centerment on above:Performed By: #### BMP #### [facility] [address] [place] [address] Dr. Arden MagallonIG #0.01 10e3/ulNormal0.00-0.03The [facility] on above:Performed By: #### BMP #### [facility] [address] [place] [address] Dr. Arden MagallonIG %0.1 %Normal0.0-0.5The [facility] on above: Performed By: #### BMP #### [facility] [address] [place] [address] Dr. Arden AlcantaraMPH #2.7 103/ulNormal1.2-3.8The [facility] on above:Performed By: #### BMP #### [facility] [address] [place] [address] Dr. Arden Alcantaramphocytes/100 WBC (Bld)37.7 %Tfmhjp53.5-60.0The [facility] HospitalComment on above:Performed By: #### BMP #### [facility] [address] [place] [address] Dr. Arden Rodríguez DIFF REQNONormalThe [facility] HospitalComment on above: Performed By: #### BMP #### [facility] [address] [place] [address] Dr. Arden Torres (RBC) [Entitic mass]31.2 yoGchyng33.7-34.0The [facility] HospitalComment on above:Performed By: #### BMP #### [facility] [address] [place] [address] Dr. Arden Torres (RBC) [Mass/Vol]32.8 g/yXPhvrfi72.9-35.2The [facility] HospitalComment on above:Performed By: #### BMP #### [facility] [address] [place] [address] Dr. Arden Torres (RBC) [Entitic vol]95.2 hWQywpfn49.0-99.0The [facility] HospitalComment on above:Performed By: #### BMP #### [facility] [address] [place] [address] Dr. Arden Nelson #0.6 103/ulNormal0.3-0.8The [facility] HospitalComment on above:Performed By: #### BMP #### [facility] [address] [place] [address] Dr. Arden Perrinocytes/100 WBC (Bld)8.2 %Normal1.7-12.0The [facility] Comment on above:Performed By: #### BMP #### [facility] [address] [place] [address] Dr. Arden Patterson #3.1 103/ulNormal1.4-6.5The [facility] HospitalComment on above:Performed By: #### BMP #### [facility] [address] [place] [address] Dr. Arden Miguelutrophils/100 WBC (Bld)44.0 %Jwflel76.0-75.0The [facility] HospitalComment on above:Performed By: #### BMP #### [facility] [address] [place] [address] Dr. Arden Salaslet mean volume (Bld) [Entitic vol]11.5 fLNormal9.5-13.5The [facility] on above:Performed By: #### BMP #### [facility] [address] [place] [address] Dr. Arden MagallonPLT160 103/pzAmixff818-366Ddh [facility] on above: Performed By: #### BMP #### [facility] [address] [place] [address] Dr. Arden MagallonRBC4.33 106/ulNormal4.20-5.40The [facility] on above:Performed By: #### BMP #### [facility] [address] [place] [address] Dr. Arden MagallonWBC7.1 103/ulNormal4.0-11.0The [facility] on above: Performed By: #### BMP #### [facility] [address] [place] [address] Dr. Arden Crespoon 98-74-1080Q-DIMER0.36 mg/L FEUNormal<=0.59[facility] on above:Performed By: #### PT, DDIM #### [facility] [address] [place] [address] Dr. Arden Crespo COMMENTSSEE [facility] on above:Result Comment: Increases in D-Dimer [...] hospitalization. Performed By: #### PT, DDIM #### [facility] [address] [address] [address] Arden MagallonPROF 14(COMP METB)on 75-31-4649Ekffgpj [Mass/Vol]3.7 g/dLNormal 3.4-5.0The [facility] HospitalComment on above:Performed By: #### CBC #### [facility] [address] [place] [address] Dr. Arden MagallonAlbumin/Globulin [Mass ratio]1.1 {ratio}NormalThe [facility] HospitalComment on above:Performed By: #### CBC #### [facility] [address] [place] [address] Dr. Arden PughP [Catalytic activity/Vol]65 U/FNwqveo94-314Jqc [facility] HospitalComment on above:Performed By: #### CBC #### [facility] [address] [place] [address] Dr. Arden PughT [Catalytic activity/Vol]15 U/IIimctc64-43Hkt [facility] HospitalComment on above:Performed By: #### CBC #### [facility] [address] [place] [address] Dr. Arden Lopez gap [Moles/Vol]6.1 mmol/LNormalThe [facility] HospitalComment on above:Performed By: #### CBC #### [facility] [address] [place] [address] Dr. Arden MagallonAST [Catalytic activity/Vol]11 U/LCritically xcs01-13Jth [facility] HospitalComment on above:Performed By: #### CBC #### [facility] [address] [place] [address] Dr. Arden MagallonBilirubin [Mass/Vol]0.4 mg/dLNormal0.2-1.0The [facility] Comment on above:Performed By: #### CBC #### [facility] [address] [place] [address] Dr. Arden MagallonCalcium [Mass/Vol]9.6 mg/dLNormal8.5-10.1The [facility] Comment on above:Performed By: #### CBC #### [facility] [address] [address] [address] Arden MagallonChloride [Moles/Vol]106 mmol/UHvwpdy09-790Olx [facility] Comment on above:Performed By: #### CBC #### [facility] [address] [address] [address] Arden MagallonCO2 [Moles/Vol]29.5 mmol/XAyzbxe19.0-32.0The [facility] Comment on above:Performed By: #### CBC #### [facility] [address] [address] [address] Arden MagallonCreatinine [Mass/Vol]1.02 mg/dLNormal0.55-1.02The [facility] HospitalComment on above:Performed By: #### CBC #### [facility] [address] [place] [address] Dr. Her ChangEGFR-AF [facility]>60Normal>=60The [facility] HospitalComment on above:Performed By: #### CBC #### [facility] [address] [address] [address] Arden CarranzaGFR-NON AF ZTQLKSQA02 mL/min/1.37z8Unawuqqbwy low>=60The [facility] HospitalComment on above:Performed By: #### CBC #### [facility] [address] [address] [address] Arden MagallonGlobulin (S) [Mass/Vol]3.3 g/dLNormalThe [facility] HospitalComment on above:Performed By: #### CBC #### [facility] [address] [address] [address] Arden MagallonGlucose [Mass/Vol]143 mg/dLCritically ewvw72-948Ewj [facility] HospitalComment on above:Performed By: #### CBC #### [facility] [address] [address] [address] Arden MagallonPotassium [Moles/Vol]3.6 mmol/LNormal3.5-5.1The [facility] Comment on above:Performed By: #### CBC #### [facility] [address] [address] [address] Arden MagallonProtein [Mass/Vol]7.0 g/dLNormal6.4-8.2The [facility] Comment on above:Performed By: #### CBC #### [facility] [address] [place] [address] Dr. Arden MagallonSodium [Moles/Vol]138 mmol/MZhdyhp431-817Sat [facility] Comment on above:Performed By: #### CBC #### [facility] [address] [address] [address] Arden Jones nitrogen [Mass/Vol]21.0 mg/dLCritically high7.0-18.0The [facility] HospitalComment on above:Performed By: #### CBC #### [facility] [address] [place] [address] Dr. Arden Jones nitrogen/Creatinine [Mass ratio]20.6 mg/mgNormSt. Francis Hospitale [facility] HospitalComment on above:Performed By: #### CBC #### [facility] [address] [place] [address] Dr. Arden MagallonPROTIMEon 65-15-2290SQW Coag (PPP) [Relative time]1.27 {INR} NormalThe [facility] HospitalComment on above:Performed By: #### PT, DDIM #### [facility] [address] [place] [address] Dr. Arden Cortez GUIDELINESSEE BELOWCleveland Clinic Mentor HospitalComment on above:Result Comment: DESIRED INR: 2.0 - 3.0 CONDITIONS NOT LISTED BELOW 2.5 - 3.5 FOR PROSTHETIC HEART VALVE REPLACEMENT 2.5 - 3.5 RECURRENT THROMBOSIS Performed By: #### PT, DDIM #### [facility] [address] [place] [address] Dr. Arden MagallonPT Coag (PPP) [Time]13.5 sCritically high9.0-11.6The [facility] HospitalComment on above:Performed By: #### PT, DDIM #### [facility] [address] [place] [address] Dr. Arden Geren, [facility] SENSITIVITYon 12-75-3981ULECAH0.3 pg/mLNormal 4.0-51.3The [facility] on above:Result Comment: CUT-OFF POINTS HAVE BEEN ESTABLISHED BASED ON THE FOURTH UNIVERSAL DEFINITIONS OF MYOCARDIAL INFARCTION. THE UPPER REFERENCE LIMIT (URL) OF TROPONIN, DEFINED THE 99TH PERCENTILE OF cTnI DISTRIBUTION IN A REFERENCE POPULATION, HAS BEEN CONFIRMED THE DECISION THRESHOLD FOR [place] DIAGNOSIS.Performed By: #### BMP #### [facility] [address] [address] [address] Arden MagallonXR CHEST 1 Von 46-50-1922UF CHEST 1 VEXAMINATION: XR CHEST 1 V [...] Electronically authenticated by: HARJINDER RAMIREZ Date: 2022-08-17 13:57[facility] URINE PROFILEon 47-34-1194Hrlwqidcw Ql (U)NegativeNormal NEGATIVESouthern [facility] Medical CenterComment on above:Performed By: #### PT, DDIM #### [facility] [address] [address] [address] Arden Miles (U)CLEARNormalCLEARThe [facility] HospitalComment on above: Performed By: #### PT, DDIM #### [facility] [address] [address] [address] Arden Gutierrez (U)LT. YELLOWNormalYELLOWSouthern Ohio Medical CenterComment on above:Performed By: #### PT, DDIM #### [facility] [address] [address] [address] Yilan ChangERUAHDA micrscopic examination will be performed if indicated. NormalThe [facility] HospitalComment on above:Performed By: #### PT, DDIM #### [facility] [address] [place] [address] Dr. Arden MagallonGlucose Ql (U)NegativeNormalNEGATIVESouthern [facility] Medical CenterComment on above:Performed By: #### PT, DDIM #### [facility] [address] [address] [address] Arden MagallonHemoglobin Ql (U)SMALLAbnormalNEGATIVESouthern [facility] Medical Center Comment on above:Performed By: #### PT, DDIM #### [facility] [address] [place] [address] Dr. Arden MagallonKetones Ql (U)NegativeNormalNEGATIVESouthern [facility] Medical CenterComment on above:Performed By: #### PT, DDIM #### [facility] [address] [place] [address] Dr. Arden MagallonLEUKOCYTESTRACEAbnormalNEGATIVESouthern [facility] Medical CenterComment on above:Performed By: #### PT, DDIM #### [facility] [address] [place] [address] Dr. Arden MagallonNitrite Ql (U)NegativeNormalNEGATIVESouthern [facility] Medical CenterComment on above:Performed By: #### PT, DDIM #### [facility] [address] [place] [address] Dr. Arden MagallonpH (U)7.0 [pH]Normal5-9Southern [facility] Medical CenterComment on above: Performed By: #### PT, DDIM #### [facility] [address] [place] [address] Dr. Arden MagallonSPEC GRAVITY1.046Hvdnrn4.005-<=1.025Southern [facility] Medical CenterComment on above:Performed By: #### PT, DDIM #### [facility] [address] [address] [address] Arden MagallonUA PROTEINNegativeNormalNEGATIVE/ TRACESouthern [facility] Medical Center Comment on above:Performed By: #### PT, DDIM #### [facility] [address] [address] [address] Arden AYALA INDINDICATEDCleveland Clinic Mentor HospitalComment on above: Performed By: #### PT, DDIM #### [facility] [address] [address] [address] Arden Medina Qn (U)0.2 {Myranda'U}/dLNormal0.2 - 1.0The [facility] HospitalComment on above:Performed By: #### PT, DDIM #### [facility] [address] [address] [address] Arden Baez MICROSCOPIC ONLYon 47-34-9181GZWCVFUNSRWI SEENNormalNONE SEENSouthern Ohio Medical CenterComchelsea hospital on above:Performed By: #### PT, DDIM #### [facility] [address] [place] [address] Dr. Arden Griffin identified Cx Nom (U)NOT INDICATEDNoMercy Health St. Joseph [facility] HospitalComchelsea hospital on above:Performed By: #### PT, DDIM #### [facility] [address] [place] [address] Dr. Arden Burton SEENNormalNONE SEENSouthern Ohio Medical CenterComchelsea hospital on above:Performed By: #### PT, DDIM #### [facility] [address] [address] [address] Arden Gonzalez LM Nom (Urine sed)NONE SEENNormalNONE SEENSouthern Ohio Medical CenterComchelsea hospital on above:Performed By: #### PT, DDIM #### [facility] [address] [address] [address] Arden Leethelial cells LM Ql (Urine sed)RARENormalNONE SEEN /RAREThe [facility] HospitalComchelsea hospital on above:Performed By: #### PT, DDIM #### [facility] [address] [address] [address] Arden James SEENNormalNONE SEENSouthern Ohio Medical CenterComchelsea hospital on above:Performed By: #### PT, DDIM #### [facility] [address] [place] [address] Dr. Arden MagallonCyssxSGS6-6Zqynps5-2Ekb [facility] on above:Performed By: #### PT, DDIM #### [facility] [address] [place] [address] Dr. Arden MagallonWBC0-2AbnormalNONE SEENThe [facility] HospitalComment on above: Performed By: #### PT, DDIM #### [facility] [address] [place] [address] Dr. Arden MagallonXR CHEST 1 Von 60-15-4575EZ CHEST 1 VEXAMINATION: XR CHEST 1 V, [...] Electronically authenticated by: PANCHO ELY Date: 2022-04-15 22:19[facility] HospitalBNPon 73-68-9329Finnirryejz peptide B (Bld) [Mass/Vol]318.0 pg/mLNormal<=1,800.0The [facility] HospitalComchelsea hospital on above:Performed By: #### BNP, CMP #### [facility] [address] [place] [address] Dr. Arden MagallonCBC AUTO DIFFon [id number] #0.2 103/ulCritically high0.0-0.1 [facility] on above:Performed By: #### PT, DDIM #### [facility] [address] [place] [address] Dr. Arden MagallonBasophils/100 WBC (Bld)2.2 %Critically high0.2-2.0The [facility]ulio HospitalComment on above:Performed By: #### PT, DDIM #### [facility] [address] [place] [address] Dr. Arden Valdes #0.5 103/ulNormal0.0-0.7The [facility] HospitalComment on above: Performed By: #### PT, DDIM #### [facility] [address] [place] [address] Dr. Arden Carranzaosinophils/100 WBC (Bld)6.2 %Normal0.9-7.0The [facility] Comment on above:Performed By: #### PT, DDIM #### [facility] [address] [place] [address] Dr. Arden Carranzarythrocyte distribution width (RBC) [Ratio]14.0 %Dbtnef10.0-15.0 The [facility] HospitalComment on above:Performed By: #### PT, DDIM #### [facility] [address] [place] [address] Dr. Arden MagallonHematocrit (Bld) [Volume fraction]41.6 %Onhxwi05.0-48.0The [facility] HospitalComment on above:Performed By: #### PT, DDIM #### [facility] [address] [place] [address] Dr. Arden MagallonHemoglobin (Bld) [Mass/Vol]13.8 g/wZZblnah61.0-16.0The [facility] Centerment on above:Performed By: #### PT, DDIM #### [facility] [address] [place] [address] Dr. Arden Mathew #0.01 10e3/ulNormal0.00-0.03The [facility] HospitalComment on above:Performed By: #### PT, DDIM #### [facility] [address] [place] [address] Dr. Arden Mathew %0.1 %Normal0.0-0.5The [facility] HospitalComment on above: Performed By: #### PT, DDIM #### [facility] [address] [place] [address] Dr. Arden Alvarado #3.2 103/ulNormal1.2-3.8The [facility] HospitalComment on above:Performed By: #### PT, DDIM #### [facility] [address] [place] [address] Dr. Arden Vitalehocytes/100 WBC (Bld)37.2 %Ntsidq94.5-60.0The [facility] HospitalComment on above:Performed By: #### PT, DDIM #### [facility] [address] [place] [address] Dr. Arden Rodríguez DIFF REQNONormalThe [facility] HospitalComment on above: Performed By: #### PT, DDIM #### [facility] [address] [place] [address] Dr. Arden Torres (RBC) [Entitic mass]31.0 ovVcabxp31.7-34.0The [facility] HospitalComment on above:Performed By: #### PT, DDIM #### [facility] [address] [place] [address] Dr. Arden Torres (RBC) [Mass/Vol]33.2 g/qZCiaces87.9-35.2The [facility] HospitalComment on above:Performed By: #### PT, DDIM #### [facility] [address] [place] [address] Dr. Arden Torres (RBC) [Entitic vol]93.5 qKSjflsv68.0-99.0The [facility] HospitalComment on above:Performed By: #### PT, DDIM #### [facility] [address] [place] [address] Dr. Arden Nelson #0.8 103/ulNormal0.3-0.8The [facility] HospitalComment on above:Performed By: #### PT, DDIM #### [facility] [address] [place] [address] Dr. Arden Perrinocytes/100 WBC (Bld)9.4 %Normal1.7-12.0The [facility] Comment on above:Performed By: #### PT, DDIM #### [facility] [address] [place] [address] Dr. Arden Patterson #3.9 103/ulNormal1.4-6.5The [facility] HospitalComment on above:Performed By: #### PT, DDIM #### [facility] [address] [place] [address] Dr. Arden Miguelutrophils/100 WBC (Bld)44.9 %Zgnxcu24.0-75.0The [facility] HospitalComment on above:Performed By: #### PT, DDIM #### [facility] [address] [place] [address] Dr. Arden Salaslet mean volume (Bld) [Entitic vol]10.7 fLNormal9.5-13.5The [facility]Comchel[facility] on above:Performed By: #### PT, DDIM #### [facility] [address] [place] [address] Dr. Arden MagallonPLT158 103/avZyayqr260-048Gza [facility] on above: Performed By: #### PT, DDIM #### [facility] [address] [place] [address] Dr. Arden MagallonRBC4.45 106/ulNormal4.20-5.40The [facility] on above:Performed By: #### PT, DDIM #### [facility] [address] [place] [address] Dr. Arden MagallonWBC8.7 103/ulNormal4.0-11.0The [facility]Com[facility] on above: Performed By: #### PT, DDIM #### [facility] [address] [place] [address] Dr. Arden Madsen 14(COMP METB)on 15-89-3599Kqdoswa [Mass/Vol]4.2 g/dLNormal 3.4-5.0The [facility] HospitalComment on above:Performed By: #### BNP, CMP #### [facility] [address] [place] [address] Dr. Arden MagallonAlbumin/Globulin [Mass ratio]1.2 {ratio}NormalSouthern [place] Medical CenterComment on above:Performed By: #### BNP, CMP #### [facility] [address] [place] [address] Dr. Arden Amos [Catalytic activity/Vol]75 U/XSxqpiz43-547Xbb [facility] HospitalComment on above:Performed By: #### BNP, CMP #### [facility] [address] [address] [address] Arden Wyman [Catalytic activity/Vol]31 U/LDnmhhk45-80Nmx [facility] HospitalComment on above:Performed By: #### BNP, CMP #### [facility] [address] [place] [address] Dr. Arden Lopez gap [Moles/Vol]11.6 mmol/LNormalSouthern [place] [facility] Center Comment on above:Performed By: #### BNP, CMP #### [facility] [address] [place] [address] Dr. Arden MagallonAST [Catalytic activity/Vol]16 U/TBqllrf91-52Gix [facility] HospitalComment on above:Performed By: #### BNP, CMP #### [facility] [address] [place] [address] Dr. Arden MagallonBilirubin [Mass/Vol]0.4 mg/dLNormal0.2-1.0[facility] [place] [facility] Comment on above:Performed By: #### BNP, CMP #### [facility] [address] [place] [address] Dr. Arden MagallonCalcium [Mass/Vol]9.7 mg/dLNormal8.5-10.1[facility] [place] [facility] Comment on above:Performed By: #### BNP, CMP #### [facility] [address] [place] [address] Dr. Arden MagallonChloride [Moles/Vol]106 mmol/YYmdzqm65-730MudSouthern [place] Medical Center Comment on above:Performed By: #### BNP, CMP #### [facility] [address] [place] [address] Dr. Arden MagallonCO2 [Moles/Vol]25.2 mmol/CRfettk44.0-32.0The [facility] Comment on above:Performed By: #### BNP, CMP #### [facility] [address] [place] [address] Dr. Arden MagallonCreatinine [Mass/Vol]1.06 mg/dLCritically high0.55-1.02[facility] [place] Medical CenterComment on above:Performed By: #### BNP, CMP #### [facility] [address] [place] [address] Dr. Her ChangEGFR-AF NAUYDNDZ69 mL/min/1.16i3Zecqyg>=60The [facility] Comment on above:Performed By: #### BNP, CMP #### [facility] [address] [place] [address] Dr. Arden CarranzaGFR-NON AF DTOOINOR76 mL/min/1.88l2Novzsewnje low>=60The [facility] HospitalComment on above:Performed By: #### BNP, CMP #### [facility] [address] [place] [address] Dr. Arden MagallonGlobulin (S) [Mass/Vol]3.4 g/dLNormalThe [facility] HospitalComment on above:Performed By: #### BNP, CMP #### [facility] [address] [place] [address] Dr. Arden MagallonGlucose [Mass/Vol]123 mg/dLCritically goxa52-002Qsv [facility] HospitalComment on above:Performed By: #### BNP, CMP #### [facility] [address] [place] [address] Dr. Arden MagallonPotassium [Moles/Vol]3.8 mmol/LNormal3.5-5.1The [facility] Comment on above:Performed By: #### BNP, CMP #### [facility] [address] [place] [address] Dr. Arden MagallonProtein [Mass/Vol]7.6 g/dLNormal6.4-8.2The [facility] Comment on above:Performed By: #### BNP, CMP #### [facility] [address] [place], [place] [address] Dr. Arden MagallonSodium [Moles/Vol]139 mmol/NMqvhpa937-957Puu [facility] Comment on above:Performed By: #### BNP, CMP #### [facility] [address] [address] [address] Arden Jones nitrogen [Mass/Vol]22.0 mg/dLCritically high7.0-18.0The [facility] HospitalComment on above:Performed By: #### BNP, CMP #### [facility] [address] [address] [address] Arden Jones nitrogen/Creatinine [Mass ratio]20.8 mg/mgNoalThe [facility] HospitalComment on above:Performed By: #### BNP, CMP #### [facility] [address] [address] [address] Her ChangECHOCARDIO M/2D COMPLETEon 63-20-8797NCTLXFUEWH M/2D COMPLETE Patient: ZORAIDA BARRIOS Exam Date: 04/06/2022 : 1935 Gender:F Ordering : SUSAN LONG Admission #: [id number] Family : Order #: [id number] CLICK HERE TO VIEW EXAM ECHOCARDIOGRAM REPORT [...] Area(A4C): 16.40 cm2 Left Atrium Systolic Volume(A2C): 53325 mm3 Left Atrium Systolic Volume(A4C): 76740 mm3 Mitral Valve MV E to A Ratio: 0.60 Deceleration Bosque: 2080 mm/s2 Mitral Valve A-Wave Peak Velocity: 103.00 cm/s Mitral Valve E-Wave Peak Velocity: 62.20 cm/s Right Ventricle RV Internal Diastolic Dimension: 3.04 cm Aorta AO Root Diam: 2.90 cm Aortic Valve AoV Area (Peak Bucky): 1.86 cm2 Deceleration Bosque: 1080 mm/s2 Pressure Half-Time: 976 ms Peak [...] by: Edvin Lisa M.D. on 04/06/2022 at 16:27[facility] HospitalUS KIDNEYSon 30-19-4308MI KIDNEYSEXAMINATION: US KIDNEYS, grayscale and Doppler HISTORY: [...] Electronically authenticated by: BERTHA SOLIZ Date: 2022-04-06 16:45[facility] HospitalBNPon 58-06-8502Izpjpiqqbpn peptide B (Bld) [Mass/Vol]193.0 pg/mLNormal<=1,800.0The [facility] HospitalComment on above:Performed By: #### BNP, CMP #### [facility] [address] [place] [address] Dr. Arden Marie AUTO DIFFon 39-47-5777QFCU #0.1 103/ulNormal0.0-0.1The [facility] HospitalComment on above:Performed By: #### BNP, CMP #### [facility] [address] [place] [address] Dr. Arden MagallonBasophils/100 WBC (Bld)0.9 %Normal0.2-2.0The [facility] Comment on above:Performed By: #### BNP, CMP #### [facility] [address] [place] [address] Dr. Arden Valdes #0.4 103/ulNormal0.0-0.7The [facility] HospitalComment on above: Performed By: #### BNP, CMP #### [facility] [address] [place] [address] Dr. Arden Carranzaosinophils/100 WBC (Bld)4.7 %Normal0.9-7.0The [facility] Comment on above:Performed By: #### BNP, CMP #### [facility] [address] [place] [address] Dr. Arden Carranzarythrocyte distribution width (RBC) [Ratio]14.2 %Iixrjx67.0-15.0 The [facility] HospitalComment on above:Performed By: #### BNP, CMP #### [facility] [address] [place] [address] Dr. Arden MagallonHematocrit (Bld) [Volume fraction]43.1 %Iamafm83.0-48.0The [facility] HospitalComment on above:Performed By: #### BNP, CMP #### [facility] [address] [place] [address] Dr. Arden MagallonHemoglobin (Bld) [Mass/Vol]14.1 g/tNYzvjyv44.0-16.0The [facility] HospitalComment on above:Performed By: #### BNP, CMP #### [facility] [address] [place] [address] Dr. Arden Mathew #0.04 10e3/ulCritically high0.00-0.03The [facility] Comment on above:Performed By: #### BNP, CMP #### [facility] [address] [place] [address] Dr. Arden Mathew %0.5 %Normal0.0-0.5The [facility] HospitalComment on above: Performed By: #### BNP, CMP #### [facility] [address] [place] [address] Dr. Arden Alvarado #3.0 103/ulNormal1.2-3.8The [facility] HospitalComment on above:Performed By: #### BNP, CMP #### [facility] [address] [place] [address] Dr. Arden Alcantaramphocytes/100 WBC (Bld)34.2 %Apkznl89.5-60.0The [facility] HospitalComment on above:Performed By: #### BNP, CMP #### [facility] [address] [place] [address] Dr. Arden Rodríguez DIFF REQNONormalThe [facility] HospitalComment on above: Performed By: #### BNP, CMP #### [facility] [address] [place] [address] Dr. Arden Torres (RBC) [Entitic mass]31.3 wwFbyrsw63.7-34.0The [facility] HospitalComment on above:Performed By: #### BNP, CMP #### [facility] [address] [place] [address] Dr. Arden Torres (RBC) [Mass/Vol]32.7 g/yWWioscy72.9-35.2The [facility] HospitalComment on above:Performed By: #### BNP, CMP #### [facility] [address] [place] [address] Dr. Arden Leonard (RBC) [Entitic vol]95.8 zHImlxse09.0-99.0The [facility] HospitalComment on above:Performed By: #### BNP, CMP #### [facility] [address] [place] [address] Dr. Arden Nelson #1.2 103/ulCritically high0.3-0.8The [facility] Comment on above:Performed By: #### BNP, CMP #### [facility] [address] [place] [address] Dr. Arden Perrinocytes/100 WBC (Bld)13.5 %Critically high1.7-12.0The [facility] HospitalComment on above:Performed By: #### BNP, CMP #### [facility] [address] [place], [place] [address] Dr. Arden Patterson #4.1 103/ulNormal1.4-6.5The [facility] on above:Performed By: #### BNP, CMP #### [facility] [address] [place] [address] Dr. Arden Miguelutrophils/100 WBC (Bld)46.2 %Raahmp37.0-75.0The [facility] HospitalComchelsea hospital on above:Performed By: #### BNP, CMP #### [facility] [address] [place] [address] Dr. Arden MagallonPlatelet mean volume (Bld) [Entitic vol]11.2 fLNormal9.5-13.5The [facility] on above:Performed By: #### BNP, CMP #### [facility] [address] [place] [address] Dr. Arden MagallonPLT160 103/kaUowxfl661-858Fls [facility] on above: Performed By: #### BNP, CMP #### [facility] [address] [place] [address] Dr. Arden MagallonRBC4.50 106/ulNormal4.20-5.40The [facility] on above:Performed By: #### BNP, CMP #### [facility] [address] [place] [address] Dr. Arden MagallonWBC8.9 103/ulNormal4.0-11.0The [facility] on above: Performed By: #### BNP, CMP #### [facility] [address] [place] [address] Dr. Arden Madsen 14(COMP METB)on 78-61-1070Myhyivt [Mass/Vol]4.0 g/dLNormal 3.4-5.0The [facility] on above:Performed By: #### BNP, CMP #### [facility] [address] [place] [address] Dr. Arden MagallonAlbumin/Globulin [Mass ratio]1.2 {ratio}NormalThe [facility] HospitalComment on above:Performed By: #### BNP, CMP #### [facility] [address] [address] [address] Arden Amos [Catalytic activity/Vol]74 U/SDxcxuh30-490Quw [facility] HospitalComment on above:Performed By: #### BNP, CMP #### [facility] [address] [address] [address] Arden Wyman [Catalytic activity/Vol]28 U/XKlnfqk38-29Pwr [facility] HospitalComment on above:Performed By: #### BNP, CMP #### [facility] [address] [address] [address] Arden Lopez gap [Moles/Vol]11.9 mmol/LNormalThe [facility] Comment on above:Performed By: #### BNP, CMP #### [facility] [address] [address] [address] Arden MagallonAST [Catalytic activity/Vol]18 U/KGreebx63-55Van [facility] HospitalComment on above:Performed By: #### BNP, CMP #### [facility] [address] [address] [address] Arden MagallonBilirubin [Mass/Vol]0.4 mg/dLNormal0.2-1.0The [facility] Comment on above:Performed By: #### BNP, CMP #### [facility] [address] [address] [address] Arden MagallonCalcium [Mass/Vol]9.7 mg/dLNormal8.5-10.1The [facility] Comment on above:Performed By: #### BNP, CMP #### [facility] [address] [address] [address] Arden MagallonChloride [Moles/Vol]105 mmol/NKfrhuw56-969Usn [facility] Comment on above:Performed By: #### BNP, CMP #### [facility] [address] [address] [address] Arden MagallonCO2 [Moles/Vol]26.3 mmol/PIbrsjo22.0-32.0The [facility] Comment on above:Performed By: #### BNP, CMP #### [facility] [address] [address] [address] Arden MagallonCreatinine [Mass/Vol]1.31 mg/dLCritically high0.55-1.02The [facility] HospitalComment on above:Performed By: #### BNP, CMP #### [facility] [address] [address] [address] Arden CarranzaGFR-AF LYGOGUIK92 mL/min/1.78v9Mfkpymexxf low>=60The [facility] HospitalComment on above:Performed By: #### BNP, CMP #### [facility] [address] [place] [address] Dr. Arden CarranzaGFR-NON AF BYFSYAYV39 mL/min/1.71k8Izbgnkvhtv low>=60The [facility] HospitalComment on above:Performed By: #### BNP, CMP #### [facility] [address] [place] [address] Dr. Arden MagallonGlobulin (S) [Mass/Vol]3.3 g/dLNormalThe [facility] HospitalComment on above:Performed By: #### BNP, CMP #### [facility] [address] [place] [address] Dr. Arden MagallonGlucose [Mass/Vol]111 mg/dLCritically yvjg54-230Mfq [facility] HospitalComment on above:Performed By: #### BNP, CMP #### [facility] [address] [place] [address] Dr. Arden MagallonPotassium [Moles/Vol]4.2 mmol/LNormal3.5-5.1The [facility] Comment on above:Performed By: #### BNP, CMP #### [facility] [address] [place] [address] Dr. Arden MagallonProtein [Mass/Vol]7.3 g/dLNormal6.4-8.2The [facility] Comment on above:Performed By: #### BNP, CMP #### [facility] [address] [place] [address] Dr. Arden MagallonSodium [Moles/Vol]139 mmol/EYaxlae561-378Vxr [facility] Comment on above:Performed By: #### BNP, CMP #### [facility] [address] [address] [address] Arden Jones nitrogen [Mass/Vol]24.0 mg/dLCritically high7.0-18.0The [facility] HospitalComment on above:Performed By: #### BNP, CMP #### [facility] [address] [address] [address] Arden Jones nitrogen/Creatinine [Mass ratio]18.3 mg/mgNormalThe [facility] HospitalComment on above:Performed By: #### BNP, CMP #### [facility] [address] [place] [address] Dr. Arden Green, HIGH SENSITIVITYon 12-72-6098XEVDKB1.6 pg/mLNormal 4.0-51.3The [facility] HospitalComment on above:Result Comment: CUT-OFF POINTS HAVE BEEN ESTABLISHED BASED ON THE FOURTH UNIVERSAL DEFINITIONS OF MYOCARDIAL INFARCTION. THE UPPER REFERENCE LIMIT (URL) OF TROPONIN, DEFINED THE 99TH PERCENTILE OF cTnI DISTRIBUTION IN A REFERENCE POPULATION, HAS BEEN CONFIRMED THE DECISION THRESHOLD FOR [place] DIAGNOSIS.Performed By: #### CBC #### [facility] [address] [place] [address] Dr. Arden Boles Summary.on 21-28-1877Cuhrhz Summary. CD:[id number]:[id number]+PGhlYWQ+ZS4BPLIbX83hcDEheO0CZ9vVIG2EKUQJJMVIID9MVO2ql ET9PTzsJ3JoynOu [file] IGNv (more content not included)...NormalUpper Valley Medical CenterAuto Diffon 37-85-5666Dabipcrjs/100 WBC (Bld)4.4 %High0.0-2.0[facility] Comment on above:Order Comment: Order Added by Discern Expert.Performed By: #### [id number], [id number], [id number], [id number], [id number] #### [facility] [address] [place] [address]Nopxuethr/Leukocytes Auto (Bld) [Pure # fraction]0.3 E9/LHigh 0.0-0.2FMarietta Osteopathic ClinicComment on above:Order Comment: Order Added by Discern Expert.Performed By: #### [id number], [id number], [id number], [id number], [id number] #### [facility] [address] [place] [address] 254[address]Uyyjoxebnhd/100 WBC (Bld)3.8 %Normal0.0-8.0[facility] Medical CenterComment on above:Order Comment: Order Added by Discern Expert.Performed By: #### [id number], [id number], [id number], [id number], [id number] #### [facility] [address] [place] [address] 78[address]Idwakegrlyn/Leukocytes Auto (Bld) [Pure # fraction]0.3 E9/L Normal0.0-0.5FMarietta Osteopathic ClinicComment on above:Order Comment: Order Added by Discern Expert.Performed By: #### [id number], [id number], [id number], [id number], [id number] #### [facility] [address] [place] [address]Rbkzdqgcscf/100 WBC (Bld)31.3 %Rivmeo32.0-50.0[facility] Medical CenterComment on above:Order Comment: Order Added by Discern Expert. Performed By: #### [id number], [id number], [id number], [id number], [id number] #### [facility] [address] [place] [address]Fagrmvvwtmn/Leukocytes Auto (Bld) [Pure # fraction]2.3 E9/L Normal1.0-4.0[facility] Medical CenterComment on above:Order Comment: Order Added by Discern Expert.Performed By: #### [id number], [id number], [id number], [id number], [id number] #### [facility] [address], [place] [address]Uiuxlxths/100 WBC (Bld)12.8 %Normal4.0-14.0[facility] Medical CenterComment on above:Order Comment: Order Added by Discern Expert.Performed By: #### [id number], [id number], [id number], [id number], [id number] #### [facility] [address] [place] [address] 10157Bmznowecn/Leukocytes Auto (Bld) [Pure # fraction]0.9 E9/LNormal 0.2-1.0[facility] Medical CenterComment on above:Order Comment: Order Added by Discern Expert.Performed By: #### [id number], [id number], [id number], [id number], [id number] #### [facility] [address] [place] [address]Lgehzwfwpft/100 WBC (Bld)47.7 %Gqnqch62.0-75.0[facility] Medical CenterComment on above:Order Comment: Order Added by Discern Expert. Performed By: #### [id number], [id number], [id number], [id number], [id number] #### [facility] [address] [place] [address]Rohbnxcdqim/Leukocytes Auto (Bld) [Pure # fraction]3.5 E9/L Normal2.0-7.5FMarietta Osteopathic ClinicComment on above:Order Comment: Order Added by Discern Expert.Performed By: #### [id number], [id number], [id number], [id number], [id number] #### [facility] [address] [place] [address]40[address]WWDjv 97-74-0526Gsnreohvdo [Mass/Vol]0.9 mg/dLNormal0.5-1.3 [facility] CenterComment on above:Performed By: #### [id number], [id number], [id number], [id number], [id number] #### [facility] [address] [place] [address]Uibt nitrogen [Mass/Vol]20 mg/dLNormal5-21[facility] CenterComment on above:Performed By: #### [id number], [id number], [id number], [id number], [id number] #### [facility] [address], [place] [address]Dsaw nitrogen/Creatinine [Mass ratio]22 No JqduoPmsu18-04LlsqglUpper Valley Medical CenterComment on above:Performed By: #### [id number], [id number], [id number], 3768602, [id number] #### [facility] [address], [place] [address]Sbmhs gap [Moles/Vol]13 mmol/LNormal6-16[facility] Medical CenterComment on above:Performed By: #### [id number], [id number], 72176290, 5739977, 5661990 #### [facility] [address], [place] [address]Yttrsim [Mass/Vol]9.9 mg/dLNormal8.9-11.1FMarietta Osteopathic ClinicComment on above:Performed By: #### [id number], [id number], [id number], [id number], [id number] #### [facility] [address] [place], [place] [address]Okefpdir [Moles/Vol]104 mmol/QIwugef637-279CjiiqrUpper Valley Medical CenterComment on above:Performed By: #### [id number], 9256624, 02788227, 8725929, 3067715 #### [facility] [address] [place], [place] [address]KF2 [Moles/Vol]24 mmol/DIgvptu07-98AefetsUpper Valley Medical Center Comment on above:Performed By: #### [id number], 5921659, 30650286, 3601846, 3480985 #### [facility] [address] [place], [place] [address]Ayvyvkx [Mass/Vol]136 mg/cZOoeqrv82-960IlmsaqUpper Valley Medical CenterComment on above:Result Comment: If this glucose result represents a fasting glucose, interpretation should refer tothe following reference range: 55-99 mg/dLPerformed By: #### [id number], 8512093, 96966475, 0485007, 8266694 #### [facility] [address] [place], [place] [address]Jwklzreyi [Moles/Vol]3.7 mmol/LNormal3.5-5.3FMarietta Osteopathic ClinicComment on above:Performed By: #### [id number], 8486315, 83867248, 5970070, 3093489 #### [facility] [address] [place], [place] [address]Irturx [Moles/Vol]137 mmol/BTllilw943-147YhmlmrUpper Valley Medical CenterComment on above:Performed By: #### [id number], 0565812, 95655899, 8329113, 9351606 #### [facility] [address] [place] [address]ZCN w/ Auto Diffon 80-30-3664Juqqwkikaby distribution width (RBC) [Ratio]15.3 %High10.9-14.2FMarietta Osteopathic ClinicComment on above: Performed By: #### [id number], 8599403, 63635971, 6566532, 4633865 #### [facility] [address] [place] [address]Hkgpktwrlf (Bld) [Volume fraction]43.0 %Iixtft38.0-46.0Upper Valley Medical CenterComment on above:Performed By: #### 64265154, 3794509, 02559361, 4416334, 5185432 #### [facility] [address] [place], [place] [address]Isflnlrmmh (Bld) [Mass/Vol]14.4 g/rSGvpkou27.0-16.0Upper Valley Medical CenterComment on above:Performed By: #### [id number], 8570392, 69183101, 5110372, 0283788 #### [facility] [address] [place], [place] [address]QLJ (RBC) [Entitic mass]31.0 stWzzket36.0-34.0Upper Valley Medical CenterComment on above:Performed By: #### [id number], 6715157, 24904301, 6689355, 6647834 #### [facility] [address] [place] [address]BMFQ (RBC) [Mass/Vol]33.6 g/yWSwfhsh04.4-36.0Upper Valley Medical CenterComment on above:Performed By: #### 09238567, 8829739, 33110595, 8614106, 0542118 #### [facility] [address] [place] [address]XNL (RBC) [Entitic vol]92.2 eZUbjcfi08.0-100.0Upper Valley Medical CenterComment on above:Performed By: #### [id number], 8090542, 25856909, 3411431, 7339739 #### [facility] [address] [place] [address]Qvncorhr mean volume (Bld) [Entitic vol]9.2 fLNormal6.4-10.8 Upper Valley Medical CenterComment on above:Performed By: #### [id number], 0701068, 54197095, 2603752, 4068734 #### [facility] [address] [place] [address]Rgdhbpxek (Bld) [#/Vol]137.0 E9/ZTwi203.0-500.0Upper Valley Medical CenterComment on above:Performed By: #### 18413759, 7842638, 68345276, 7173497, 4474506 #### [facility] [address] [place] [address]KRJ (Bld) [#/Vol]4.7 E12/LNormal4.3-5.9Upper Valley Medical CenterComment on above:Performed By: #### [id number], 8658443, 05267125, 9434344, 5984510 #### [facility] [address] [place], [place] [address]DKV corrected for nucl RBC Auto (Bld) [#/Vol]7.3 E9/LNormal 4.0-11.0Upper Valley Medical CenterComment on above:Performed By: #### [id number], 3114646, 67196294, 2686496, 2645035 #### [facility] [address] [place], [place] [address]GSGYMZWLBFlwwmmq By: SYSTEM SYSTEM on 67-85-2806Oolvw gap [Moles/Vol]13 mmol/LNormal6 - 16 mEq/LFTMC RemisolCalcium [Mass/Vol]9.9 mg/dL Normal8.9 - 11.1 mg/dLFTMC RemisolChloride [Moles/Vol]104 mmol/NUvnkxk989 - 111 mmol/LFTMC RemisolCO2 [Moles/Vol]24 mmol/TKqqdkw68 - 31 mmol/LFTMC Remisol Creatinine [Mass/Vol]0.9 mg/dLNormal0.5 - 1.3 mg/dLFTMC RemisolGlucose [Mass/Vol]136 mg/vGHjfmja11 - 199 mg/dLFTMC RemisolPotassium [Moles/Vol]3.7 mmol/LNormal3.5 - 5.3 mmol/LFTMC RemisolSodium [Moles/Vol]137 mmol/BNkfqzq626 - 145 mmol/LFTMC RemisolTroponin I.cardiac [Mass/Vol]8.10 pg/mLLow10.10 - 27.10 pg/mLFTMC RemisolUrea nitrogen [Mass/Vol]20 mg/dLNormal5 - 21 mg/dLFTMC Remisol Urea nitrogen/Creatinine [Mass ratio]22 mg/vpSbbw10 - 20FTMC RemisolCOAGULATION Ordered By: Belkis Watson on 50-98-0589iKPL Coag (PPP) [Time]25.4 xYimzfo43.1 - 36.5 second(s)[facility] Auto CoagINR Coag (PPP) [Relative time]1.1 {INR}Invalid Interpretation CodeFTMC Auto CoagPT Coag (PPP) [Time]13.4 sHigh10.2 - 12.9 second(s)[facility] Auto CoagCT Head or Brain w/o Contraston 22-12-3954IZ Head or Brain w/o ContrastExam Date/Time: 02/24/2022 [...] Jacob Coon MD Transcribed by: KHANH Technologist: [facility] HospitalConsent for Treatmenton 01-22-9158Ivqswjy for Treatment [id number]:127[facility] CenterDischarge Instructionson 62-89-9207Wrjieihxv Instructions [id number]:127[facility] Clinical Summaryon [id number] Clinical Summary [address] [address] ED Clinical Summary Person Information Name: ZORAIDA BARRIOS[place] Age: 86 Years : 1935 Sex: Female Language: Yoruba PCP: LACEY FREY MD Marital Status: Single [...] 02/24/2022 10:32:06 02/24/2022 10:32:06 02/24/2022 10:32:06 ADDRESS: [address] [place] [place] [id number] PHYS DOC NOTES: MEDICAL INFORMATION: Prescriptions Given: PATIENT EDUCATION INFORMATION: Instructions: Hypertension, Adult Follow up: With: Address: When: LACEY FREY [address] [place] [phone] Business (1) In 3 days 02/27/2022 Comments: Increase Losartan to 100 mg a day. Continue Metoprolol 50 mg a day. Make sure to take your blood pressure twice a day and follow-up with Dr. Frey tomorrow at 1 PM at her office. Return to the emergency room if your headache recurs, chest pain, dizziness or any new symptoms. DIAGNOSIS: 1:Accelerated hypertensionNormalFisher Cape May Medical CenterED Note-Physicianon 26-48-9939YK Note-PhysicianBasic Information Time Seen: Norma PalaciosDemond 02/24/2022 [...] reported headache. 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 In the emergency [...] LACEY FREY In 3 days 02/27/[address] [place] [phone] Business (1) Additional Instructions: Increase Losartan [...] % High (02/24/22 0 (more content not included)...[facility] CenterComment on above:Result Comment: Electronically Signed By: Norma Palacios, Demond Collins\.br\Date and Time Signed: 02/24/2211:07 EDTED Patient Education Noteon [id number] Patient Education NoteCardiovascular Hypertension, Adult High blood [...] tofu. ? Avoi (more content not included)...[facility] Patient Summaryon [id number] Patient Summary [place] [address] Patient Discharge Instructions Person Information Name: ZORAIDA BARRIOS Age: 86 Years Arrival Date: 02/24/2022 08:11:05 Discharge Diagnosis: 1:Accelerated hypertension Primary Care Physician: LACEY FREY MD Provider Information Primary Provider: Demond Green M.D. Advanced Rn Telephonic:None The exam and treatment you received in the Emergency Department were for an urgent problem and are not intended as complete care. It is important that you follow up with a doctor, nurse practitioner,or physician?s housekeeper and laundry assistant for ongoing care. If your symptoms [...] Follow-up Instructions: With: Address: When: LACEY FREY [facility] [place] [address] Business (1) In 3 days 02/27/2022 Comments: [...] opioids can be used to help relieve xqgkdngt-fw-vecnkr pain and are often prescribed following a [...] your community drug take- back program or [employer] mail-back program, or flush them down the toilet, following guidance from the Food and Drug Administration (www.fda.gov/Drugs/ResourcesForYou). ? Visit (more content not included)...[facility] HEMATOLOGYOrdered By: SYSTEM SYSTEM on 89-25-0922Ndffocidw/100 WBC (Bld)4.4 % High0.0 - 2.0 %[facility] HemeAutoSSBasophils/Leukocytes Auto (Bld) [Pure # fraction] 0.3 E9/LHigh0.0 - 0.2 E9/LFTMC HemeAutoSSEosinophils/100 WBC (Bld)3.8 %Normal0.0 - 8.0 %[facility] HemeAutoSSEosinophils/Leukocytes Auto (Bld) [Pure # fraction]0.3 E9/LNormal0.0 - 0.5 E9/LFTMC HemeAutoSSLymphocytes/100 WBC (Bld)31.3 %Peradt43.0 - 50.0 %[facility] HemeAutoSSLymphocytes/Leukocytes Auto (Bld) [Pure # fraction]2.3 E9/LNormal1.0 - 4.0 E9/LFTMC HemeAutoSSMonocytes/100 WBC (Bld)12.8 %Normal4.0 - 14.0 %[facility] HemeAutoSSMonocytes/Leukocytes Auto (Bld) [Pure # fraction]0.9 E9/L Normal0.2 - 1.0 E9/LFTMC HemeAutoSSNeutrophils/100 WBC (Bld)47.7 %Pmkccn93.0 - 75.0 %[facility] HemeAutoSSNeutrophils/Leukocytes Auto (Bld) [Pure # fraction]3.5 E9/L Normal2.0 - 7.5 E9/LFTMC HemeAutoSSHEMATOLOGYOrdered By: Elena Vidales on 76-94-1646Kzmgfhlaeah distribution width (RBC) [Ratio]15.3 %High10.9 - 14.2 % [facility] HemeAutoSSHematocrit (Bld) [Volume fraction]43.0 %Qmgakd00.0 - 46.0 %[facility] HemeAutoSSHemoglobin (Bld) [Mass/Vol]14.4 g/vNOjkjea41.0 - 16.0 gm/dLFTMC HemeAutoSSMCH (RBC) [Entitic mass]31.0 zkGbzkaq55.0 - 34.0 pgFTMC HemeAutoSSMCHC (RBC) [Mass/Vol]33.6 g/sWCpplrp53.4 - 36.0 gm/dLFTMC HemeAutoSSMCV (RBC) [Entitic vol]92.2 sNQqktyp48.0 - 100.0 fLFTMC HemeAutoSSPlatelet mean volume (Bld) [Entitic vol]9.2 fLNormal6.4 - 10.8 fLFTMC HemeAutoSSPlatelets (Bld) [#/Vol]137.0 E9/WKzu012.0 - 500.0 E9/LFTMC HemeAutoSSRBC (Bld) [#/Vol]4.7 E12/L Normal4.3 - 5.9 E12/LFTMC HemeAutoSSWBC corrected for nucl RBC Auto (Bld) [#/Vol]7.3 E9/LNormal4.0 - 11.0 E9/LFTMC HemeAutoSSPT & PTTon 99-49-9379MYI Coag (PPP) [Relative time]1.1 {INR}Invalid Interpretation CodeUpper Valley Medical CenterComment on above:Result Comment: INR results are specifically intended to assess patients stabilized on long-term Anticoagulation therapy suggested INR?s ?Less Intensive Anticoagulation? 2.0 ? 3.0 Conventional Range 3.0 ? 4.5Performed By: #### [id number], 2637352, 73701758, 2649438, 7483144 #### [facility] [address] [place], [place] [address]FR Coag (PPP) [Time]13.4 second(s)High10.2-12.9Upper Valley Medical CenterComment on above:Performed By: #### [id number], 1041970, 81793202, 5689930, 7124838 #### [facility] [address] [place], [place] [address]vDWI Coag (PPP) [Time]25.4 second(s)Edszhm53.1-36.5FMarietta Osteopathic ClinicComment on above:Result Comment: Heparin therapeutic range (represented by Anti-Factor Xa activity of 0.2 - 0.4 U/mL) corresponds to PTT of 56.6 - 109.0 sec.Performed By: #### [id number], 1763792, 29707149, 4525878, 0204757 #### [facility] [address] [place], [place] [address]Rdbwwzqs 0 Hr.on 57-91-2074Nmzshowa I.cardiac [Mass/Vol]8.10 pg/mLLow10.10-27.10Upper Valley Medical CenterComment on above:Result Comment: The 95% CI (Confidence Interval) PPV (Positive Predictive Value) for myocardial infarction in females is 38 pg/mL, in males 51 pg/mL. The results should be used in conjunction with clinical conditions of myocardial infarction. (Access High Sensitivity Troponin I Instructions For Use, Gwendolyn Skanee, May 2018)Performed By: #### [id number], 7171660, 89114899, 4914650, 2232479 #### [facility] [address] [place], [place] [address]XM Chest Single Viewon 68-95-3453PE Chest Single ViewExam Date/Time: 02/24/2022 08:44 EDT [...] 02/24/2022 11:58 am EDT, Trevon Tyler M.D., [facility] Vital Signs Date TimeVital SignValuePerforming RgaibyioiTlrlvsyy41-05-9742 11:35-0400 Diastolic blood ceavagym70 mm[Hg]Lacey Frey MD Work Phone: [phone]10-22-2025 11:35-0400 Heart rate68 /minLacey Frey MD Work Phone: [phone]10-22-2025 11:35-0400 Systolic blood mm[Hg]Lacey Frey MD Work Phone: [phone]10-22-2025 11:27-0400 Body xxoyvt820.48 cmLacey Frey MD Work Phone: [phone]10-22-2025 11:27-0400 Body mass index (BMI) [Ratio]23.3 kg/v9QfruchLacey Frey MD Work Phone: [phone]10-22-2025 11:27-0400 Body fcfemj86.05 kgLacey Frey MD Work Phone: [phone]10-06-2025 11:44-0400 Diastolic blood ebxygshu51 mm[Hg]Lacey Frey MD Work Phone: [phone] [facility] [place], [place] [address]381410-06-2025 11:44-0400 Heart rate55 /Chico Frey MD Work Phone: [phone] [place], [place] [address]381410-06-2025 11:44-0400 Systolic blood wdcdgavm426 mm[Hg]Lacey Frey MD Work Phone: [phone] [place], [place] [address]38[address]10-06-2025 11:29-0400 Body ejaisx260.48 cmLacey Frey MD Work Phone: [phone] [place], [place] [address]38[address]10-06-2025 11:29-0400 Body mass index (BMI) [Ratio]23.4 kg/t9IcfpzkLacey Frey MD Work Phone: [phone] [place], [place] [address]381410-06-2025 11:29-0400 Body pwktsa70.2 Ed Frey MD Work Phone: [phone] [place], [place] 0381408-04-2025 13:31-0400 Diastolic blood qfhxtiix72 mm[Hg]Lacey Frey MD Work Phone: [phone] [place], [place] [address]38[address]08-04-2025 13:31-0400 Systolic blood gagtqddu371 mm[Hg]Lacey Frey MD Work Phone: [phone] [place], [place] [address]381408-04-2025 13:21-0400 Body ttaylr832.48 cmLacey Frey MD Work Phone: [phone] [place], [place] [address]381408-04-2025 13:21-0400 Body mass index (BMI) [Ratio]24 kg/c3CsjxaaLacey Frey MD Work Phone: [phone] [place], [place] [address]381408-04-2025 13:21-0400 Body .56 Ed Frey MD Work Phone: [phone] [place], [place] [address]38[address]08-04-2025 13:21-0400 Heart rate57 /Chico Frey MD Work Phone: [phone]08-04-2025 13:21-0400 Respiratory rate12 /Chico Frey MD Work Phone: [phone]08-04-2025 13:21-0400 SaO2% (BldA) [Mass fraction]97 %Lacey Frey MD Work Phone: [phone]07-07-2025 11:21-0400 Body foqpel526.48 cmLacey Frey MD Work Phone: [phone]07-07-2025 11:21-0400 Body mass index (BMI) [Ratio]24.1 kg/b8OawctjLacey Frey MD Work Phone: [phone]07-07-2025 11:21-0400 Body .87 kgLacey Frey MD Work Phone: [phone]07-07-2025 11:21-0400 Diastolic blood evgokcad47 mm[Hg]Lacey Frey MD Work Phone: [phone] [place], [place] [address]07-07-2025 11:21-0400 Heart rate57 /Chico Frey MD Work Phone: [phone] [place], [place] [address]07-07-2025 11:21-0400 SaO2% (BldA) [Mass fraction]97 %Lacey Frey MD Work Phone: [phone]07-07-2025 11:21-0400 Systolic blood mm[Hg]Lacey Frey MD Work Phone: [phone]04-29-2025 14:26-0400 Body hojcyy364.48 cmL[facility]04-29-2025 14:26-0400Body mass index (BMI) [Ratio]23.9 kg/u4XwuceibvjLake County [facility]04-29-2025 14:0400Body bxyxlp53.42 kgL[facility]04-29-2025 14:26-0400Diastolic blood mm[Hg][facility] 02-04-2025 14:26-0400Heart rate58 /[facility] 02-04-2025 14:-0400Systolic blood elyycpkr460 mm[Hg][facility]03-20-2025 13:02-0400Body bagqfp877.48 cmL[facility]03-20-2025 13:02-0400Body mass index (BMI) [Ratio]24.7 kg/h6CvvojpksgLake County [facility]03-20-2025 13:-0400Body .46 kgL[facility]03-20-2025 13:02-0400Diastolic blood prrqncve59 mm[Hg] [facility]03-20-2025 13:-0400Heart rate69 /[facility]03-20-2025 13:-0400Systolic blood zquknygr373 mm[Hg] [facility]02-10-2025 13:05-0500Body pfnbij802.48 cm [facility]02-10-2025 13:05-0500Body mass index (BMI) [Ratio]24 kg/o3UjlbzbhzlLake County [facility]02-10-2025 13:05-0500Body weight 59.56 kgLake County [facility]02-10-2025 13:05-0500Diastolic blood gdlsnrbi57 mm[Hg][facility]02-10-2025 13:05-0500Heart rate65 /[facility]02-10-2025 13:05-0500Systolic blood eumiozxs146 mm[Hg][facility]10-01-2024 14:24-0400Body myfsic586.48 cmL[facility]10-01-2024 14:24-0400Body mass index (BMI) [Ratio]24.3 kg/u2OmlyvdfbgLake County [facility]10-01-2024 14:24-0400Body .46 kgL[facility]10-01-2024 14:24-0400Diastolic blood cuahodgr43 mm[Hg][facility] 07-09-2024 14:24-0400Heart rate57 /[facility] 07-09-2024 14:24-0400Systolic blood llldczbo966 mm[Hg][facility]07-30-2024 13:44-0400Body fhpcae358.48 cmL[facility]07-30-2024 13:44-0400Body mass index (BMI) [Ratio]23.8 kg/f6XvcwpjayfLake County [facility]07-30-2024 13:44-0400Body iqjjtc98.96 kgL[facility]07-30-2024 13:44-0400Diastolic blood qlxpgzbi47 mm[Hg] [facility]07-30-2024 13:44-0400Heart rate61 /[facility]07-30-2024 13:44-0400Systolic blood wnvlkxae021 mm[Hg] [facility]04-01-2024 11:43-0400Body gbphje636.48 cm [facility]04-01-2024 11:43-0400Body mass index (BMI) [Ratio]22.8 kg/m7LzxtnnrgnLake County [facility] Hospital [facility]04-01-2024 11:43-0400Body uwhuuq94.84 kgL[facility]04-01-2024 11:43-0400Diastolic blood gagwwkmq25 mm[Hg][facility]04-01-2024 11:43-0400 Heart rate61 /[facility]04-01-2024 11:43-0400Systolic blood bmpzomve490 mm[Hg][facility]08-31-2023 14:30-0400 Body ndaidy151.48 cmLacey Frey Other [employer] Other 08-31-2023 14:30-0400Body mass index (BMI) [Ratio] 23.13 kg/e2YoadnvLacey Frey Other [employer] Other 08-31-2023 14:30-0400Body .38 kgLacey Frey Other [employer] Other 08-31-2023 14:30-0400Diastolic blood oxktnkrh09 mm[Hg] Lacey Frey Other [employer] Other 08-31-2023 14:30-0400Respiratory rate16 /minLacey Frey Other [employer] Other 08-31-2023 14:30-0400Systolic blood kpotouia344 mm[Hg] Lacey Frey Other [employer] Other 03-14-2023 15:20-0400Body vudezj602.48 cmAdavidtiago Watson Other [employer] Other 03-14-2023 15:20-0400Body mass index (BMI) [Ratio] 23.08 kg/m2Rox Shirley Other [employer] Other 03-14-2023 15:20-0400Body kczwuxajqbl51 [degF]Rox Watson Other [employer] Other 03-14-2023 15:20-0400Body .24 kgRox Shirley Other [employer] Other 03-14-2023 15:20-0400Diastolic blood whsmalvg85 mm[Hg] Adolfoaicha Dwanas Other [employer] Other 03-14-2023 15:20-0400Respiratory rate16 /minRox Shirley Other [employer] Other 03-14-2023 15:20-2117KvY3% (BldA) [Mass fraction]100 % Rox Watson Other [employer] Other [phone] 15:20-0400Systolic blood mm[Hg] Rox Watson Other [facility] [employer] Other [phone] 10:12-0400Diastolic blood lhmbxbao95 mm[Hg] [facility]05-19-2022 10:12-0400Heart rate68 /[facility]Core[facility]05-19-2022 10:12-0400Respiratory rate15 /[facility]05-19-2022 10:12-8338BmN0% (BldA) [Mass fraction]98 %[facility]05-19-2022 10:12-0400Systolic blood erxuibzf422 mm[Hg][facility]05-19-2022 09:24-0400Diastolic blood kivfiqtx33 mm[Hg][facility]05-19-2022 09:24-0400Heart rate66 /[facility]05-19-2022 09:24-0400Respiratory rate16 /[facility]05-19-2022 09:24-4324TqN9% (BldA) [Mass fraction]99 %[facility]05-19-2022 09:24-0400 Systolic blood xaotgoof875 mm[Hg][facility] 02-24-2022 08:50-0400Diastolic blood vvbkixjz086 mm[Hg][facility]05-19-2022 08:50-0400Systolic blood ckjyjruh958 mm[Hg][facility]05-19-2022 08:14-0400Body mzjwrqyekzh25.24 [degF][facility]05-19-2022 08:14-0400Heart rate 74 /min[facility]05-19-2022 08:14-0400 Respiratory rate18 /minCore[facility]05-19-2022 08:14-6529YhO8% (BldA) [Mass fraction]99 %[facility] Encounters Encounter DateEncounter Type[facility] ProviderFacilityStart: 07-30-2025 End: 14-07-9149ijyvznrlahTujbyi E Braun MD Work Phone: [facility]art: 07-30-2025 End: 67-96-2105Nnrnxcb encounter procedureLacey Frey MD-[facility] Work Phone: Start: 07-14-2025 End: 61-55-3744cmaufexovkSaxjem E Braun MD Work Phone: [facility] Work Phone: Start: 07-14-2025 End: 87-71-7745Blkezsh encounter procedureLacey Frey MD-[facility] Work Phone: Start: 25-98-8084Nus-patient / Non-visitMarnadja Hurtado MD-[facility] Work Phone: Start: 22-59-9641Etc-patient / Non-visitJames Wiley DO- [facility] Work Phone: Start: 79-78-8546Wte-patient / Non-visitCatshahbaz Wilkinson CMAMansfield Hospital Work Phone: Start: 10-15-8292Fwf-patient / Non-visitDennys Perez DO-[facility] Work Phone: Start: 05-12-2025 End: 04-82-7658edqtmvrimaFjdjlm E Braun MD Work Phone: [facility] Work Phone: Start: 05-12-2025 End: 39-10-8482Lwpqxpe encounter procedureLacey Frey MD-[facility] Work Phone: Start: 04-14-2025 End: 24-06-7789qtmkcyxeqnVdknuq E Braun MD Work Phone: [facility] Work Phone: Start: 04-14-2025 End: 13-08-8967Spbkqfx encounter procedureLacey Frey MD-[facility] Work Phone: Start: 38-23-6971Hja-patient / Non-visitCatshahbaz Wilkinson CMA-[facility] Work Phone: Start: 38-14-4947Hop-patient / Non-visitAmy Jack LACY -[facility] Work Phone: Start: 02-12-2025 End: 98-03-3599ooguvtubevEVUIYUJ [facility] Centertart: 02-04-2025 End: 57-06-2696qelumaucwcTfalfrkwlGreen Cross Hospital Work Phone: Start: 02-04-2025 End: 91-91-6427Tssujst encounter procedureFirjoses Physician Group-[facility] Work Phone: Start: 02-03-2025 End: 34-83-2343Fir-admission assessmentMoconchis Gregorio [facility] Start: 12-26-2024 End: 39-64-3926jgpeyjbgbhIlhebguiiGreen Cross Hospital Work Phone: Start: 12-26-2024 End: 06-01-5000Cylgmof encounter procedureFirjoses Physician Group-[facility] Work Phone: Start: 44-57-8054Zwc-patient / Non-visitFirelands Physician [facility] Work Phone: Start: 72-66-1128Fwp-patient / Non-visitFirelands Physician Group-[facility] Work Phone: Start: 11-28-2024 End: 14-61-7324omuvhtbnvjRUKRUCBluffton Hospital Start: 11-18-2024 End: 81-33-8823sdflexohtgZpwbtdgdzGreen Cross Hospital Work Phone: Start: 11-18-2024 End: 78-27-7660Eaftcvd encounter procedureFirlincolns Physician Group-[facility] Work Phone: Start: 07-09-2024 End: 12-56-1590gnsgwdxeosFpjaljegxTrumbull Memorial Hospital Work Phone: Start: 07-09-2024 End: 57-93-4597Khmwlzt encounter procedureFirsentara [facility] medical [facility] Phys[facility] Work Phone: Start: 06-28-2024 End: 90-41-8476utzpmtilhbVMGNJMAMercy Health Anderson Hospitaltart: [phone]-patient / Non-visitFirelands Physician GroupNav[facility] Work Phone: Start: [phone]-patient / Non-visitFirelands Physician [facility] Work Phone: Start: [phone]-patient / Non-visitFirelands Physician GroupNav[facility] Work Phone: Start: 05-07-2024 End: 62-47-1030jxtrewcqlcDcyvfosioGreen Cross Hospital Work Phone: Start: 05-07-2024 End: 88-26-4047Dsqjtlz encounter procedureFirsentara [facility] GroupM[facility] Work Phone: Start: 05-01-2024 End: 15-62-8565mlbaahgrsbNDRSTTJUC Medical Centertart: 62-62-8170Sjc-patient / Non-[facility]At[facility] Work Phone: Start: 03-28-2024 End: 38-43-3931nuppndtfmiNOBODROMercy Health Anderson Hospitaltart: 01-08-2024 End: 22-44-0258dfzmfosnxaAicuttgldGreen Cross Hospital Work Phone: Start: 01-08-2024 End: 90-50-3765Wpszlpf encounter procedureAt[facility] Work Phone: Start: 77-57-2020Ptd-patient / Non-visitAt[facility] Work Phone: Start: 06-08-2023 End: 80-31-4946cxswbuukqcOdapkj Frey Other [employer] Other Start: 11-45-2095Ilqxue outpatient visit 15 minutes [facility] Hospital[facility]art: 05-25-2023 End: 54-84-5825mlhpwiaagwVqssno Frey Other [employer] Other Start: 59-15-1168Tavdvejzu encounterMarcia Kanakanak Hospitaltart: 04-25-2023 End: 07-71-5510qzdqskqdmcWmxdrd Frey Other [employer] Other Start: 42-99-6415Nllgdgnvn encounterMarcia Kanakanak Hospitaltart: 03-23-2023 End: 47-09-2896uclagdbpfcErutjn Frey Other [employer] Other Start: 69-21-2451Vsnnbxqax encounterMarcia Kanakanak Hospitaltart: 02-20-2023 End: 24-37-9143rkmrpawjjrEafuie Frey Other [employer] Other Start: 96-57-8608Ypspxjkfj encounterLacey Rubio [facility] ClinicStart: 01-17-2023 End: 97-71-8929fniokhkmbwQkucpr Frey Other [employer] Other Start: 56-96-6566Snmetlxse encounterMareverett FreyPuma [facility] ClinicStart: 12-20-2022 End: 49-38-5142ewsacekzypXrnw Bakhous Other [place] [employer] Other Start: 28-34-8886OHHE visit new Luisito WatsonPuma NephrologyStart: 12-19-2022 End: 81-72-9587hxlbaortnmEzdxvd Frey Other [place] [employer] Other Start: 52-96-0091Jkxclrysu encounterMareverett Rubio [facility] ClinicStart: 12-10-2022 End: 75-92-3352ccgqdniwrrODKYTJN BOESFacility:M6Gpzln: 11-15-2022 End: 71-48-8461osgbyxotksOS GEORGIE WELLERFacility:V0Fcgxz: 10-09-2022 End: 48-55-0639daqivexbmgQD JAMES WILEY .Facility:S7Tsevn: 09-30-2022 End: 99-22-2635tbvpveizmpYTPDK PARKERFacility:S7Moaxw: 09-26-2022 End: 78-10-0346fiyqrkremmZK HARJINDER RAMIREZFacility:J0Mxtsz: 09-21-2022 End: 04-26-1390fgcxgrumogLV LACEY FREYFacility:P6Buhft: 09-18-2022 End: 89-70-7938dicmxteskcGE GEORGIE WELLERFacility:S4Dngbw: 09-11-2022 End: 60-27-6979mixrwhdtnzNX JAMES PuentesFacility:I0Uxlbl: 09-03-2022 End: 65-79-0775bugizfgbuyELEWQ PARKERFacility:U3Vplhv: 09-03-2022 End: 96-99-6588fdhhujefkcRC JAMES WILEY .Facility:J0Ccdkx: 08-30-2022 End: 01-31-9277vwxscxwcdxOK LACEY E BRAUNFacility:F4Uwdgm: 08-26-2022 End: 19-77-2717ihngcudaxnIP LACEY E BRAUNFacility:I0Iggkr: 08-24-2022 End: 58-38-3738wnqcljhcyqJB LACEY E BRAUNFacility:X2Gcrah: 08-17-2022 End: 27-98-1954znubalnvkvIR LACEY E BRAUNFacility:K6Fovue: 07-02-2022 End: 00-85-9484voccjjnlftJX LACEY E BRAUNFacility:U3Tapsk: 04-15-2022 End: 77-53-2432uhqjhqzmvcXR LACEY E BRAUNFacility:T8Dsvzo: 10-59-2239angpyfucwv AALIYAH BOESFacility:C5Rqncn: 04-06-2022 End: 29-92-0612srvauxjbemFHUKCDN ALGHOTHANIFacility:O3Wnyhx: 03-17-2022 End: 38-37-2838zztfamepkqZN LACEY E BRAUNFacility:P5Wptcg: 02-24-2022 End: 46-18-8475Mpvodzrah department patient visitAstrit [facility] Plan of Treatment DateCare ActivityDetailAuthorStart: 52-50-0038Ypwognh referralEast [facility] Work Phone: [facility] referralEast [facility] Work Phone: [place].doppler Carotid arteries - bilateralLake County Memorial Hospital - WestXR Chest 2 ViewsPalmetto [facility] Payers DatePayer CategoryPayerPolicy [id number] [id number] 2.16.840.1.559096.3.579.2.64497-65-7925 [id number] 2.16.840.1.104960.3.57[id number] 2.16.840.1.650386.3.57[id number] 2.16.840.1.751162.3.57[id number] 2.16.840.1.728060.3.57[id number] 2.16.840.1.679566.3.57[id number] 2.16840.1.862232.3.579.[id number] 2.16.840.1.250926.3.57[id number] 2.16.840.1.503037.3.579.[id number] 2.16.840.1.429355.3.579.[id number] 2.16.840.1.567736.3.57[id number] 2.16.840.1.041221.3.579.2.32634-07-2577Zrvipsf9818540 2.16.840.1.908521.3.579.2.[id number] 2.16.840.1.413672.3.579.[id number] 2.16.840.1.544874.3.579.[id number] 2.16.840.1.803296.3.57[id number] 2.16.840.1.528655.3.57[id number] 2.16.840.1.850584.3.579.2.[id number] 2.16.840.1.1464[id number] 2.16.840.1.330198.19Unknown [id number] [id number]-t576-83zx-[id number] Social History DateTypeDetailFacilityTobacco smoking statusUnknown if ever smokedMercy Health Springfield Regional Medical Centerex Assigned [facility] Centertart: 24-60-0010Ozc Assigned At [facility] Main CampusTobacc smoking status NHISUnknown if ever smokedEast [facility] Hospital Work Phone: Start: 02-24-2022 End: 94-32-9246OewDmtrow (finding)[facility] - WestTobacco smoking statusTwin City Hospital Start: 47-38-7875Psjygud smoking status NHISSmokes tobacco daily (finding)[facility] Clinical Notes 02-24-2022 to 05-12-2025 Note Date & VhyqZeviBwffwxzy28-25-8708 Evaluation note* Diagnosis Onset Date Resolution Status Admit Date Medicare annual wellness visit, subseque nt acuteAugust 2024 1:20pmResistant hypertensionacuteAugust 2024 1:20pm Tobacco dependence syndromeacuteAugust 2024 1:20pmPneumoniaacuteOctober 2024 11:19am [facility] Work Phone: 1(581) 760-673608-04-2025 Evaluation note* Diagnosis Onset Date Resolution Status Admit Date Medicare annual wellness visit, breana clemente acuteAugust 2024 1:20pmResistant hypertensionacuteAugust 2024 1:20pm Tobacco dependence syndromeacuteAugust 2024 1:20pmAnxietyacuteOctober 2024 11:19amHypertensionacuteOctober 2024 11:19amPneumoniaacuteOctober 2024 11:19amPilonidal cystacuteOctober 2024 11:17am [facility] Work Phone: 1(540) 248-303607-07-2025 Evaluation note* Diagnosis Onset Date Resolution Status Admit Date Resistant hypertension acuteJuly 2024 11:18am [facility] Work Phone: 1(955) 556-296505-07-2025 NoteUT Cardiology - [facility] Subjective Zoraida Barrios is a [...] presented to the emergency room at the [facility] with elevated blood pressure reading. Blood [...] Take 1 ta (more content not included)... [facility]05-07-2025 NotePatient here for a 3 month follow [...] or heart burn. Review of Systems Constitutional: Negative.[facility]04-29-2025 Evaluation note* Diagnosis Onset Date Resolution Status Admit Date Objective pulsatile tinnitus of both ear s acuteApril 2024 2:23pmResistant hypertensionacuteApril 2024 2:23pm [facility] Work Phone: 1(506) 532-943102-20-2025 NoteUT Cardiology - [facility] Subjective Zoraida Barrios is a [...] presented to the emergency room at the [facility] with elevated blood pressure reading. Blood [...] normal, troponin high-sensitivity 8.8, (more content not included)...[facility]02-10-2025 Evaluation note* Diagnosis Onset Date Resolution Status Admit Date Resistant hypertension acuteNovember 18, 2024 1:01pmObjective pulsatile tinnitus of both earsacute December 26, 2024 12:58pmResistant hypertensionacuteDecember 26, 2024 12:58pm [facility] Work Phone: 1(468) 415-808602-10-2025 Evaluation note* Diagnosis Onset Date Resolution Status Admit Date Resistant hypertension acuteFe2024 1:01pmChronic kidney disease, stage 3bacuteDecember 26, 2024 12:58pmObjective pulsatile tinnitus of both earsacuteDecember 26, 2024 12:58pmResistant hypertensionFormerly [facility] 2024 12:58pm [facility] Work Phone: 1(127) 268-133509-20-2024 NotePer assessment heart rates in the 50s No concerning symptoms at this time We will continue to monitor Discussed with patient to call office for any lightheadedness, dizziness, passing out she voiced understandingUnChillicothe VA Medical Center 06-28-2024 NoteHypertension is stable for her blood pressure log is very well- controlled in office is always elevated most likely related to whitecoat syndrome Continue medicines as prescribed including carvedilol, clonidine, hydralazine, losartan, spironolactone Renal function stableUnChillicothe VA Medical Center09-20-[address]09-20-2024 NoteUTP CARDIOLOGY PROGRESS NOTE HPI: Zoraida Barrios [...] passing out she voiced understanding RTC 6 monthsSt. Mary's Medical Center09-20-2024 NotePt is here for three month follow up. Pt denies sob, chest pain, palpatations. Pt says one of her medications makes her dizzy but she does not know which one. Review of Systems Constitutional: Positive for diaphoresis (1 episode). Neurological: Positive for excessive daytime sleepiness (intermittent). All other systems reviewed and are negative.[facility] 05-01-2024 NoteHypertension is quite variable dependent upon [...] Vit D, Thyroid function and Vitamin B levels.[facility]07-24-[address] [facility]07-24-2024 NotePt reports having noted heart rate 49-50's, and denied any significant symptoms associated. Will continue to monitor and D/W pt to call office for lightheadedness, dizziness, near syncope or syncope and she voiced understandingSt. Mary's Medical Center07-24-2024 NoteUTP CARDIOLOGY PROGRESS NOTE HPI: Zoraida Barrios is a 88 y.o. female here for hospital F/U HPI 88 yo female presents today for hospital F/U after recent evaluation for bradycardia Patient here for follow up [facility] ED. Says she went shopping with [...] negative ED note- Patient: ZORAIDA BARRIOS MR#: [id number] : 1935 Acct:[id number] Age/Sex: 88 / F ADM Date: 04/25/24 [...] place, and time. P (more content not included)...[facility]07-24-2024 NotePatient here for follow up [facility] ED. Says she went shopping with [...] (intermittent). All other systems reviewed and are negative.[facility] 03-28-2024 NoteStable Continue aldactone, fluid restriction and low sodium diet Continue regular exercise and activityUnChillicothe VA Medical Center 03-28-2024 NoteWell controlled with aldactone currently no edemaUnChillicothe VA Medical Center06-20-2024 NoteHypertension is unchanged. Dietary sodium restriction. Continue current medications. Blood pressure will be reassessed in [address]06-20-2024 NotePatient here for 2 mo follow up hypertension and diastolic dysfunction. She had routine labs in January 2024. She denies chest pain, SOB, palpitations, and syncope. Sometimes gets lightheaded upon standing up. Review of Systems Neurological: Positive for excessive daytime sleepiness and light-headedness. All other systems reviewed and are negative.[facility] 03-28-2024 NoteUTP CARDIOLOGY PROGRESS NOTE HPI: Zoraida [...] - with her evening/bedtime meds, she voiced understandingSt. Mary's Medical Center08-31-2023 Evaluation note* Encounter Date Diagnosis Assessment Notes Treatment Notes Treatment Clinical Notes May, Other insomnia (ICD-10 - G47.09) Pt states the ativan does help her insomnia and bp. Denies over-sedation symptoms. May,Resistant hypertension (ICD-10 - I10)Established w [facility] Cardiology. Recommend taking meds daily and keeping record and discussing bps w her provider there. [employer] Other 03-14-2023 Evaluation note* Encounter Date Diagnosis [...] pressure monitor reveals significantly better blood pressure [employer] Other [id number] Evaluation + Plan noteExtracted from:Title: ED NoteAuthor:Norma [...] Troponin 9 Hr. XR Chest Single View [facility]05-19-2022 Hospital Discharge instructions Patient Education 02/24/2022 [...] care provider. This is important. Medicines Take txvw-yws-hmfqykw and prescription medicines only as told by [...] 09/25/2006 Document Revised: 06/05/2019 Document Reviewed: 06/05/2019 [employer] Patient Education 2020 [employer]. Follow Up Care 02/24/2022 08:13:52 With:LACEY FREY Address: [address] [place], [place] [address]- Business (1) When:02/27/2022 10:23:00 Comments:Increase Losartan to 100 mg a day. Continue Metoprolol 50 mg a day. Make sure to take your blood pressure twice a day and follow-up with Dr. Frey tomorrow at 1 PM at her office. Return to the emergency room if your headache recurs, chest pain, dizziness or any new symptoms. [facility] HospitalEvaluation noteNo InformationNortLankenau Medical Center [employer] Other Evaluation noteNo assessment information available [facility] Work Phone: Evaluation note* Diagnosis Onset Date Resolution Status Chronic kidney disease, stage 3b acuteResistant hypertensionacuteWeight gain, abnormalacute [facility] Work Phone: History general Narrative - Reported* Type Description Date Medical History HYPERTENSION Medical HistoryRENAL IMPAIRMENTMedical HistoryTOBACCO DEPENDENCE SYNDROME Surgical HistoryTUBAL LIGATIONSurgical HistoryCHOLECYSTECTOMYHospitalization HistorySEE ABOVE [facility] [employer] Other Hospital course Narrative No data available for this section [facility] HospitalHospital Discharge instructionsAmbulatory Orders* Referral to Vascular Surgery Time Frame: 12/26/24, Location: None Selected [facility] Work Phone: Hospital Discharge instructions No data available for this section [facility] Progress note No data available for this section [facility] Reason for referral (narrative)No reason for referral information availableEast [facility] City Hospital Work Phone: Summary Purpose Family History [...] section and content) DATE CREATED AUTHOR 03/05/2022 [facility] DATE CREATED AUTHOR AUTHOR'S ORGANIZ ATION 12/13/2022 [facility] DATE CREATED AUTHOR AUTHOR'S ORGANIZ ATION 02/15/2025 [facility] REASON FOR VISIT (unrecogniz ed [...] April 14, 2025 End: April 14, 2025Lacey Frye MDAttending ProviderActiveStart: April 14, 2025 End: April [...] Provider Active Start: May 11, 2024 Sherry Verded[facility] ProviderActiveStart: May 11, 2024 Team Status: Active [...] Start: December 24, 2024 Maria Isabel Hurtado MDAlouis stokes [facility] ProviderActiveStart: December 24, 2024 Team Status: Inactive [...] Team Status: Inactive Member Role/Relationship Status Dates Laecy Frey MD Primary Care Provider Active Start: [...] BE BASED ON THE PRIMARY CLINICAL RECORDS. [facility] [employer] [address] [facility]. provides no warranty or guarantee of the accuracy or completeness of information in this document.
--- OUTSIDE RECORDS SUMMARY | 2025-08-09 14:21 | XMS_ITS | Clinical Summary ---
Author Organization [facility] Address [address] [place] [address] Care Team Providers Care Poultry Service Technician Name Role Phone Unavailable Primary Care Provider Unavailabl e Social History Tobacco UseTypesPacks/DayYears UsedDateSmoking Tobacco: Never Assessed CommentsUnknownSex and Gender InformationValueDate RecordedSex Assigned at Not on fileLegal LaiWxxntu18/01/2023 8:34 PM EDTGender IdentityNot on fileSexual OrientationNot on file Last Filed Vital Signs Vital SignReadingTime TakenCommentsBlood Qrcfhkha899/80011/05/2019 12:00 PM EST Pulse--Temperature--Respiratory Rate--Oxygen Saturation--Inhaled Oxygen Concentration--Bnukur34.3 kg (122 lb)11/05/2019 12:00 PM LTXSwronl639.5 cm (5' 2 )11/05/2019 12:00 PM ESTBody Mass Index22.31011/05/2019 12:00 PM EST Plan of Treatment Not on file Insurance
--- OUTSIDE RECORDS SUMMARY | 2025-08-09 14:21 | XMS_ITS | Clinical Summary ---
Author Organization [facility] Address [address] [place] [address] Care Team Providers Care Metal Molder Name Role Phone Amelia Trinh MD Primary Care Provider [phone] Allergies Active AllergyReactionsCriticalityNoted DateCommentsSpironolactoneOther 11/28/2024Sulfa (Sulfonamide Antibiotics)06/22/2022 [...] DateDiagnosed DateChronic kidney disease, stage 3b06/04/2024 Elevated mqgunkh0106/04/2024Hypertensive goztavcgtox72/27/2024Other insomnia 06/04/20247640Mkasdpb43/27/2024Tobacco dependence yqwnxwya76/27/2024Weight gain, psckwdev70/27/2024symptomatic dwxijftjnco96/24/2024 Assessment & Plan (06/28/2024 2:31 PM EDT): [...] hold amlodipine r/t noted hypotension Edema, lower tmzqigxtc73/12/2022 Assessment & Plan (03/29/2024 7:22 AM EDT): [...] reevaluate cardiac function and valvular function. Diastolic kgqmmkmagxo64/12/2022 Assessment & Plan (03/29/2024 7:21 AM EDT): [...] consider repeat echocardiogram at next visit Hypertensive zxejmzgs71/13/2022 Assessment & Plan (06/28/2024 2:31 PM EDT): [...] High-dose Seasonal, Quadrivalent, Preservative Free07/13/2021Influenza, Seasonal, Quadrivalent, Tgsunomryx97/08/2020Influenza, trivalent, fudkdphnxv48/17/2019 Moderna 12 YR UP Vaccine BiValent Ventjzu6108/05/2021,12/08/2020,11/10/2020 Pneumococcal Conjugate PCV 131Pneumococcal Polysaccharide PPV23 07/16/2020 [...] file11/30/2023CommentsUnknownSex and Gender InformationValueDate RecordedSex Assigned at YlwosXcsvqa42/05/2025 11:41 AM EDT Legal BnjTdcjnw28/29/2022 10:58 PM EDTGender RuwgvoyxOmlxfr72/05/2025 11:41 AM EDTSexual OrientationHeterosexual or Ypybxplv13/05/2025 11:41 AM EDT Last Filed Vital Signs Vital SignReadingTime TakenCommentsBlood Wrvpejhr411/9202/12/2025 12:50 PM EDT Zjonr6093/07/2025 12:50 PM EDTTemperature--Respiratory Xpjt056101/08/2024 1:48 PM EDTOxygen Xxmvvynsmz09%02/12/2025 12:50 PM EDTInhaled Oxygen Concentration-- Uphuju94.8 kg (134 lb)02/12/2025 12:50 PM FVZTpwjab196.5 cm (5' 2 )02/12/2025 12:50 PM EDTBody Mass Index24.51002/12/2025 12:50 PM EDT Plan of Treatment Health MaintenanceDue DateLast DoneCommentsMedicare Annual Wellness (AWV) 1935Depression Ewgfahcbx93/18/1948Adult Bvnfslt0010/26/1957Zoster Vaccines (1 of 2)1985Fall Risk Guvojlcyb09/18/2001COVID-19 Vaccine ( season), 08/14/2023, 08/05/2021, Additional history exists Influenza Vaccine (#1), 08/14/2023, 08/08/2022, Additional history existsPneumococcal Vaccine: 50+ MdpavCquhzawsd89/08/2020, 07/19/2018HIB VaccinesAged OutNo longer eligible based on [...] MemberRelationshipSpecialtyStart DateEnd Date Amelia Trinh MD [address] [facility] #[facility] - [facility]06/22/22
--- OUTSIDE RECORDS SUMMARY | 2025-08-09 14:21 | XMS_ITS | Patient Health Record ---
Author Organization [facility] [place] Address [address] [place] [address] Care Team Providers Care Apparel Designer Name Role Phone None, Unknown or Primary [...] Orally 01/25/2024ctivecloNIDine 0.2 MG/24HR1 patch to skin Nnasayzdxho82/18/2024ctive Losartan Potassium 50 MG1 tablet Orally Once [...] Status W/U Status Risk Notes Problem Hypertension (72758847) HTN (hypertension ) (I10) Activeconfirmed Plan Of Treatment No Information Insurance Providers Payer Name Payer Address Payer Phone Subscriber Number Group Number Insured Name Patient Relationship to Insured Coverage Start Date Coverage End Date [employer] MEDICARE ADV PLAN [address] [place] [address] [id number] Hiram Barrios - patient is the insured Medical (General) History Medical History History ICD Code hypertension Surgical History Surgery Date(Month/Year) cholecystectomy
[2025-08-09] MEDS: ENALAPRILAT DIHYDRATE 1.25 MG/ML VIAL IV (15:08)
--- NOTE | 2025-08-09 15:14 | ECG_ITS ---
[facility] Test Date: 2025-08-09 Pat Name: ZORAIDA GAYTAN Department: Room: - Gender: Female [employer]: : 1935 Requested By: James Dawkins Order Number: [id number] Mina MD: EDVIN GRUBBS M.D. Measurements Intervals [place] Rate: 55 P: 60 LA: 202 QRS: 68 QRSD: 92 T: 56 QT: 436 QTc: 424 Interpretive Statements 1100 Sinus rhythm 9110 normal ECG Compared to ECG 07/13/2025 19:46:45 Sinus arrhythmia no longer present Electronically Signed On 08-09-2025 19:47:09 EDT by EDVIN GRUBBS M.D.
[2025-08-09 15:23] LABS: Anion Gap 8.6; Blood Urea Nitrogen 16.0 mg/dL (7.0-18.0); Calcium 9.6 mg/dL (8.5-10.1); Carbon Dioxide 28.3 mmol/L (21.0-32.0); Chloride 106 mmol/L (98-107); Estimated GFR (African America >60 (>=60 mL/min/1.73m^2); Estimated GFR (Non-African Ame 60 (>=60 mL/min/1.73m^2); Glucose 86 mg/dL (74-106); Potassium 3.9 mmol/L (3.5-5.1); Sodium 139 mmol/L (136-145)
--- NOTE | 2025-08-09 16:01 | ED.GENADUL1 ---
HPI HPI - General Adult General Chief complaint: Recheck/Abnormal Lab/Rx Stated complaint: high blood presure Time Seen by Provider: 08/09/25 14:33 Source: patient Mode of arrival: walk-in History of Present Illness HPI narrative: cc - high blood pressure Patient presents with concerns that her blood pressure is elevated at home. Patient is well-known to this emergency department and she frequently comes in for medication start to control her blood pressure. She Link that she saw her primary care provider last week and they did not make any adjustments to her medication. Last time I saw her, I had her add a third dose of hydralazine during the day. She told me she has been taking her blood pressure medicines as prescribed. She denies any headache, chest pain, shortness of breath, abdominal pain, blurred vision or other symptoms associated with her elevated blood pressure Related Data Home Medications ?Medication ?Instructions ?Recorded ?Confirmed carvedilol 25 mg tablet 25 mg PO BID 12/28/23 08/09/25 lorazepam 0.5 mg tablet 0.5 mg PO Q12H PRN anxiety 12/28/23 08/09/25 hydralazine 100 mg tablet 100 mg PO Q8H 07/07/25 08/09/25 losartan 50 mg tablet 50 mg PO BID 07/07/25 08/09/25 buspirone 10 mg tablet 10 mg PO BID 08/09/25 08/09/25 Previous Rx's ?Medication ?Instructions ?Recorded clonidine HCl 0.2 mg tablet 0.2 mg PO BID #10 tabs 12/24/24 Allergies Allergy/AdvReac Type Severity Reaction Status Date / Time Sulfa (Sulfonamide AdvReac Mild rash Verified 07/13/25 08:30 Antibiotics) PFSH PFS Social History Little interest or pleasure in doing things: not at all Feeling down, depressed, or hopeless: not at all Exam Narrative Exam Narrative: Nurses notes and vital signs reviewed and patient is not hypoxic. afebrile General: Well-appearing and in no apparent distress. Skin: Warm, dry, no pallor noted. Eye: Pupils are equal, round and EOMI. No scleral icterus. Ears, Nose, Mouth, and Throat: Oral mucosa is moist Cardiovascular: Regular Rate and Rhythm without murmur, gallop or rub. Respiratory: No accessory muscle use or respiratory distress. Lungs are clear to auscultation, no wheezing, rales or rhonchi Musculoskeletal: normal ROM, no calf or popliteal tenderness, no lower extremity edema/swelling GI: Abdomen is soft, non-distended. Normal bowel sounds. No pulsatile masses appreciated. No tenderness to palpation. No rebound, guarding, or rigidity noted. Neurological: A&O x4. No cranial nerve dysfunction observed. No truncal ataxia. Moves all extremities. Sensation intact. Psychiatric: Cooperative and interactive. Normal mood and affect. Constitutional Vital Signs, click to edit/add: Last Vital Signs Temp 98.0 F 08/09/25 14:21 Pulse 58 L 08/09/25 17:44 Resp 18 08/09/25 17:44 BP 184/89 H 08/09/25 17:44 Pulse Ox 96 08/09/25 14:24 O2 Del Method Room Air 08/09/25 14:21 Course Vital Signs Vital signs: Vital Signs Temperature 98.0 F 08/09/25 14:21 Pulse Rate 63 08/09/25 14:21 Respiratory Rate 20 08/09/25 14:21 Blood Pressure 198/100 H 08/09/25 14:21 Pulse Oximetry 96 08/09/25 14:21 Oxygen Delivery Method Room Air 08/09/25 14:21 Temperature 98.0 F 08/09/25 14:21 Pulse Rate 58 L 08/09/25 17:44 Respiratory Rate 18 08/09/25 17:44 Blood Pressure 184/89 H 08/09/25 17:44 Pulse Oximetry 96 08/09/25 14:24 Oxygen Delivery Method Room Air 08/09/25 14:21 Medical Decision Making MDM Narrative Medical decision making narrative: Patient was placed on bindery worker and EKG obtained. Blood drawn and sent for evaluation. She was given IV Vasotec 1.25mg for her blood pressure but it did not seem to make much of a difference. She was therefore ordered to receive IV labetalol - 20 mg initial dose. BMP is unremarkable. EKG is normal. At the time of EKG, the patient's heart rate was 55. But after she had received her first dose of Vasotec and then her first dose of labetalol her heart rate was 65. Blood pressure did not reduce much with the Vasotec and initial dose of labetalol therefore she was ordered to receive more labetalol IV. Repeat BP = 184/89. She was agreeable to receive one more dose of antihypertensive meds - but refused any treatment beyond that - she received Hydralazine 10mg IV. Repeat BP 15 min later = 187/83. Pt offered admission - she once again declined, telling me in no uncertain terms, I am getting the hell out of here . She was encouraged to see her PCP, Dr Trinh, to discuss changes to her BP regimen. Medical Records Medical records reviewed: Yes I reviewed the patient's medical records Medical records narrative: Pt had CT chest and spiculated nodules and other changes were found - it was recommended that the patient get a CT abd/pelvis. She said that Dr Trinh's office contacted her that they have ordered the abd/pelvis CT - she i waiting for the video game producer to call her back to let he know when she has to get the CT. Lab Data Lab results reviewed: Yes I reviewed the patient's lab results Labs: Lab Results 08/09/25 Range/Units 15:06 Sodium 139 (136-145) mmol/L Potassium 3.9 (3.5-5.1) mmol/L Chloride 106 (98-107) mmol/L Carbon Dioxide 28.3 (21.0-32.0) mmol/L Anion Gap 8.6 BUN 16.0 (7.0-18.0) mg/dL Creatinine 0.89 (0.55-1.02) mg/dL Est GFR ( Amer) >60 (>=60 mL/min/1.73m^2) Est GFR (Non-Af Amer) 60 (>=60 mL/min/1.73m^2) BUN/Creatinine Ratio 18.0 Glucose 86 (74-106) mg/dL Calcium 9.6 (8.5-10.1) mg/dL ECG Data Attestation: I personally reviewed and interpreted this ECG as follows: Interpretation: EKG interpretation:Emergency Department physician interpretation.Normal sinus rhythm at 55bpm. Normal axis, normal intervals and no ST segment elevation or depression. Normal EKG. Discharge Plan Discharge Chief Complaint: Recheck/Abnormal Lab/Rx Clinical Impression: Hypertension Patient Disposition: Home, Self-Care Time of Disposition Decision: 18:19 Prescriptions / Home Meds: No Action clonidine HCl 0.2 mg tablet 0.2 mg PO BID Qty: 10 0RF losartan 50 mg tablet 50 mg PO BID hydralazine 100 mg tablet 100 mg PO Q8H buspirone 10 mg tablet 10 mg PO BID carvedilol 25 mg tablet 25 mg PO BID lorazepam 0.5 mg tablet 0.5 mg PO Q12H PRN (Reason: anxiety) Print Language: Belarusian Instructions: Chronic Hypertension (ED), Hypertension in the Older Adult (ED) Referrals: Amelia Trinh MD [Primary Care Provider, Family Practice] - 1 week
[2025-08-09] MEDS: LABETALOL HCL 100 MG/20 ML MDV 20 MG IVP (16:16)
[2025-08-09] MEDS: LABETALOL HCL 100 MG/20 ML MDV 40 MG IVP (17:22)
[2025-08-09] MEDS: HYDRALAZINE HCL 20 MG/ML VIAL 10 MG IVP (17:58)
== END 2025-08-09 18:32 | disposition home or self-care (01) ==
PROVIDERS: Emergency Provider Emergency Medicine; PCP Family Medicine
DX: I10 Essential (primary) hypertension (principal); Z79.899 Other long term (current) drug therapy
CPT/HCPCS: 36415; 80048; 93005; 99285; J0360; J1290

== ENCOUNTER 2025-08-19 12:27 | Outpatient (OUT) | payer MEDICARE, SELFPAY ==
--- OUTSIDE RECORDS SUMMARY | 2025-08-19 12:30 | XMS_ITS | Clinical Summary ---
Author Organization [facility] Address [address] [place] [address] Care Team Providers Care Oracle Application Architect Name Role Phone Amelia Trinh MD Primary Care Provider [phone] Allergies Active AllergyReactionsCriticalityNoted DateCommentsSpironolactoneOther 11/28/2024Sulfa (Sulfonamide Antibiotics)06/22/2022 [...] DateDiagnosed DateChronic kidney disease, stage 3b06/04/2024 Elevated paowwva7306/04/2024Hypertensive zkpyefscwix17/27/2024Other insomnia 06/04/20247518Covhwic38/27/2024Tobacco dependence vobyfuqd18/27/2024Weight gain, vzrhrkib23/27/2024symptomatic cdnjwgiupti24/24/2024 Assessment & Plan (06/28/2024 2:31 PM EDT): [...] hold amlodipine r/t noted hypotension Edema, lower mdcdaqcur81/12/2022 Assessment & Plan (03/29/2024 7:22 AM EDT): [...] reevaluate cardiac function and valvular function. Diastolic zcjmdivajri78/12/2022 Assessment & Plan (03/29/2024 7:21 AM EDT): [...] consider repeat echocardiogram at next visit Hypertensive kbvudszd55/13/2022 Assessment & Plan (06/28/2024 2:31 PM EDT): [...] High-dose Seasonal, Quadrivalent, Preservative Free07/13/2021Influenza, Seasonal, Quadrivalent, Cfizrjpqhi73/08/2020Influenza, trivalent, savsenlqri72/17/2019 Moderna 12 YR UP Vaccine BiValent Dxzokia9408/05/2021,12/08/2020,11/10/2020 Pneumococcal Conjugate PCV 131Pneumococcal Polysaccharide PPV23 07/16/2020 [...] file11/30/2023CommentsUnknownSex and Gender InformationValueDate RecordedSex Assigned at GrmurGgahsd85/05/2025 11:41 AM EDT Legal GtjYiccjx45/29/2022 10:58 PM EDTGender DbcvnxzrNoytqv20/05/2025 11:41 AM EDTSexual OrientationHeterosexual or Vfcwmygv28/05/2025 11:41 AM EDT Last Filed Vital Signs Vital SignReadingTime TakenCommentsBlood Edsbxuju517/9202/12/2025 12:50 PM EDT Kinqj7847/07/2025 12:50 PM EDTTemperature--Respiratory Nlej443301/08/2024 1:48 PM EDTOxygen Frumwygazl08%02/12/2025 12:50 PM EDTInhaled Oxygen Concentration-- Mynocl09.8 kg (134 lb)02/12/2025 12:50 PM FNRJelaqg920.5 cm (5' 2 )02/12/2025 12:50 PM EDTBody Mass Index24.51002/12/2025 12:50 PM EDT Plan of Treatment Health MaintenanceDue DateLast DoneCommentsMedicare Annual Wellness (AWV) 1935Depression Aaehkcwbj35/18/1948Adult Isrgpvl2210/26/1957Zoster Vaccines (1 of 2)1985Fall Risk Nqvlbskwz66/18/2001COVID-19 Vaccine ( season), 08/14/2023, 08/05/2021, Additional history exists Influenza Vaccine (#1), 08/14/2023, 08/08/2022, Additional history existsPneumococcal Vaccine: 50+ VirtvYrmdbnckf23/08/2020, 07/19/2018HIB VaccinesAged OutNo longer eligible based on [...] DateEnd Date Amelia Trinh MD [address] [facility] [address] [facility]06/22/22
--- OUTSIDE RECORDS SUMMARY | 2025-08-19 12:30 | XMS_ITS | Clinical Summary ---
Author Organization [facility] Address [address] [place] [address] Care Team Providers Care Hand Weaver Name Role Phone Unavailable Primary Care Provider Unavailabl e Social History Tobacco UseTypesPacks/DayYears UsedDateSmoking Tobacco: Never Assessed CommentsUnknownSex and Gender InformationValueDate RecordedSex Assigned at Not on fileLegal KbxKyfjen44/01/2023 8:34 PM EDTGender IdentityNot on fileSexual OrientationNot on file Last Filed Vital Signs Vital SignReadingTime TakenCommentsBlood Lzmgartf898/80011/05/2019 12:00 PM EST Pulse--Temperature--Respiratory Rate--Oxygen Saturation--Inhaled Oxygen Concentration--Fouofh25.3 kg (122 lb)11/05/2019 12:00 PM XUSIzlozt734.5 cm (5' 2 )11/05/2019 12:00 PM ESTBody Mass Index22.31011/05/2019 12:00 PM EST Plan of Treatment Not on file Insurance
--- OUTSIDE RECORDS SUMMARY | 2025-08-19 12:30 | XMS_ITS | Patient Health Record ---
Author Organization [facility] [place] Address [address] [place] [address] Care Team Providers Care Weave Defect Charting Clerk Name Role Phone None, Unknown or Primary [...] Orally 01/25/2024ctivecloNIDine 0.2 MG/24HR1 patch to skin Oloyocwwswo64/18/2024ctive Losartan Potassium 50 MG1 tablet Orally Once [...] Status W/U Status Risk Notes Problem Hypertension (42021968) HTN (hypertension ) (I10) Activeconfirmed Plan Of Treatment No Information Insurance Providers Payer Name Payer Address Payer Phone Subscriber Number Group Number Insured Name Patient Relationship to Insured Coverage Start Date Coverage End Date [employer] MED[employer] ADV PLAN [address] [place] [phone] [id number] Hiram Barrios - patient is the insured Medical (General) History Medical History History ICD Code hypertension Surgical History Surgery Date(Month/Year) cholecystectomy
--- OUTSIDE RECORDS SUMMARY | 2025-08-19 12:32 | XMS_ITS | CCD ---
Author Organization [facility] Care Team Providers Care Quality Assurance Tester Name Role Phone LACEY FREY Primary Care [...] TK, DR LACEY Ashton Primary [facility] Unavailable [place], DR BERTHA [employer] Unavailable ALGHOTHANI, MOHAMAD [...] Care Provider Lacey Frey MD Attending Provider [phone] Lacey Frey MD Primary Care Provider Lacey Frey MD Attending Provider Dennys Aguilar DO Attending Provider Valencia Wilkinson CMA Attending Provider Unavaila abebe Wiley DO James Daisha Attending Provider [phone] Maria Isabel Hurtado MD Attending Provider [phone] Allergies Allergy ClassificationReported Allergen(s)Allergy TypeDate of OnsetReaction(s) Facility (2 sources)Sulfonamides (Antibiotic); Translations: [sulfa drugs]Drug allergy [facility] (2 sources)Sulfonamides (Antibiotic)Drug allergy (disorder)[phone] (10 sources)Substance with sulfonamide structure and antibacterial mechanism of action (substance)D[facility] allergyHomberg [facility]aryno[facility] Other (1 source)Spironolactone; Translations: [SPIRONOLACTONE]Drug [phone] [facility] Repository (1 source)Sulfonamides (Antibiotic); Translations: [SULFA (SULFONAMIDE ANTIBIOTICS)]Propensity to adverse reactions to drug (disorder)06-22-2022 [facility] Repository Medications Current Medications MedicationDrug Class(es)DatesSig (Normalized)Sig (Original)amLODIPine 5 mg oral tablet (10 sources)Dihydropyridine Calcium Channel Blockertake 1 tablet by mouth every twenty-four hoursbusPIRone hydrochloride 10 mg oral tablet (1 source)Start: 59-52-6192ltlx 1 tablet by mouth twice dailyBuspirone 10 [...] meal/food Complies with drug therapyStart: 01-08-2024 End: 91-64-5857pyzi 1 tablet by mouth twice daily at mealtimetake 1 tablet by mouth every twelve hourscloNIDine hydrochloride 0.2 mg oral tablet (20 sources)Central alpha-2 Adrenergic AgonistStart: 04-14-2025 End: 21-36-8832ahue 1 tablet by mouth twice dailyClonidine Hcl 0.2 mg tablet Active 0.2 MG PO Twice daily 180 0 June 10, 2025 2:25pm Complies with drug therapyStart: 11-18-2024 End: 86-14-6065hoha 1 tablet by mouth once daily in the morningStart: 01-08-2024 End: 16-45-4483yopc 1 tablet by mouth twice dailytake 1 tablet by mouth every twelve hoursfurosemide 20 mg oral tablet (10 sources)Loop DiuretichydrALAZINE hydrochloride 50 mg oral tablet (20 sources)Arteriolar VasodilatorStart: 25-28-3689rqfg 2 tablets by mouth three times dailyHydralazine 50 mg tablet Active 100 MG PO Three times daily February 04, 2025 4:03pm Complies with drug therapyStart: 12-26-2024 End: 61-94-1981rjob 2 tablets by mouth twice dailyHydralazine 50 mg tablet Discontinued 100 MG PO Twice daily December 26, 2024 1:13pm February 04, 2025 4:04pmStart: 11-18-2024 End: 49-18-1712Ydgvfsetfym 50 mg tablet Discontinued 75 MG PO Twice daily November 18, 2024 2:39pm December 26, 2024 1:15pmStart: 01-05-2024 End: 25-11-8583tilk 2 tablets by mouth three times dailyHydralazine 50 mg tablet Discontinued 100 MG PO Three times daily January 05, 2024 12:00am 2024 2:40pmStart: 52-10-2736vzyx 100 mg by mouth three times dailyHydralazine Active 100 MG PO Three times daily January 05, 2024 12:00amtake 2 tablets by mouth every eight hourshydrALAZINE HCl 50 MG 2 tablet with food Orally Three times a day Activelosartan potassium 50 mg oral tablet (20 sources)Angiotensin 2 Receptor BlockerStart: 85-06-6153hklp 1 tablet by mouth once dailyLosartan 50 mg tablet Active 50 MG PO Daily April 14, 2025 12:00am Complies with drug therapyStart: 01-08-2024 End: 42-37-8478evcp 1 tablet by mouth once dailyLosartan 100 mg tablet Discontinued 1 TAB PO Daily January 08, 2024 12:00am February 04, 2025 4:03pm F reeTextSi tablet Orally Once a day; Note: Source Status: Not-Taking\PRN; Provider: Eros Peñaloza ( )take 1 tablet by mouth every twenty- four hoursmetroNIDAZOLE 500 mg oral tablet (1 source)Nitroimidazole AntimicrobialStart: 33-61-4411atwy 1 tablet by mouth twice dailyMetronidazole 500 mg tablet Active 500 MG PO Twice daily July 30, 2025 12:00am Complies with drug therapymicroencapsulated potassium chloride 10 meq extended release oral tablet (10 sources)take 1 tablet by mouth once daily at mealtime as needed Completed/Discontinued Medications MedicationDrug Class(es)DatesSig (Normalized)Sig (Original)aspirin 81 mg chewable tablet (6 sources)Platelet Aggregation Inhibitor, Nonsteroidal Anti-inflammatory Drug Start: 12-26-2024 End: 28-44-0317mntm 1 tablet by mouth once dailyAspirin 81 mg tablet,chewable Discontinued 81 MG PO Daily December 26, 2024 12:00am May 1251:26pm atorvastatin 40 mg oral tablet (6 sources)HMG-CoA Reductase InhibitorStart: 12-26-2024 End: 08-72-3095ghjg 1 tablet by mouth once dailyAtorvastatin 40 mg tablet Discontinued 40 MG PO Daily December 26, 2024 12:00am May 12, 2025 1:26pm hydroCHLOROthiazide 25 mg oral tablet (7 sources)Thiazide DiureticStart: 11-18-2024 End: 10-46-7188tbiq 1 tablet by mouth once dailyHydrochlorothiazide 25 mg tablet Discontinued 25 MG PO Daily 07 11November 18, 2024 1:00am February 04, 2025 4:02pmlevothyroxine sodium 0.05 mg oral tablet (19 sources)l-ThyroxineStart: 04-14-2025 End: 68-13-5325xdbw 1 tablet by mouth once dailyLevothyroxine 50 mcg tablet Discontinued 50 MCG PO Daily April 14, 2025 12:00am May 12, 2025 1:26pm Start: 05-17-2024 End: 54-18-6388bocz 1 tablet by mouth once dailyLevothyroxine 50 mcg tablet Discontinued 50 MCG PO Daily 07 11June 19, 2024 11:42am 2023 2:12pmLORazepam 0.5 mg oral tablet (20 sources)BenzodiazepineStart: 01-05-2024 End: 82-30-9335guvd 1 tablet by mouth twice daily as neededLorazepam 0.5 mg tablet Discontinued 0.5 MG PO Twice daily as needed January 05, 2024 12:00am 2023 11:51amStart: 19-71-7903irww 1 tablet by mouth twice daily as [...] doesn't answer our phone calls. May, ActiveStart: 18-57-9295ydzj 1 tablet by mouth once daily as neededLORazepam 0.5 MG TAKE 1 TABLET BY MOUTH EVERY DAY NEEDED for 30 days Apr, ActiveStart: 04-63-7208zjcm 1 tablet by mouth once daily as neededLORazepam 0.5 MG TAKE 1 TABLET BY MOUTH EVERY DAY NEEDED for 30 days Mar, ActiveStart: 43-72-8797ecjz 1 tablet by mouth once daily as needed LORazepam 0.5 MG TAKE 1 TABLET BY MOUTH EVERY DAY NEEDED for 30 days Jan, ActiveStart: 07-95-6406hmlp 1 tablet by mouth once daily as neededLORazepam 0.5 MG TAKE 1 TABLET BY MOUTH EVERY DAY NEEDED for 30 days Nov, Activespironolactone 25 mg oral tablet (20 sources)Aldosterone AntagonistStart: 01-08-2024 End: 65-44-8470wvnf 1 tablet by mouth once daily Problems Active Problems Problem ClassificationProblemDateDocumented DateEpisodic/ChronicAnxiety disorders (3 sources)Anxiety disorder, unspecified; Translations: [Anxiety]Onset: [id number] kidney disease (20 sources)Chronic kidney disease stage 3B ; Translations: [Chronic kidney disease, stage 3b]13-66-9644TujomoyLtbjkohm mellitus without complication (9 sources)Increased glucose level; Translations: [Other abnormal glucose] 52-66-2145SioygnwtAnxaqcwra hypertension (20 sources)Essential hypertension; Translations: [Essential (primary) hypertension]Onset: 09-80-4541JgugamlYcinz valve disorders (1 source)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; Translations: [RHEUMATIC D/O AORTIC TRICUSPID VALV]Onset: 41-34-3345JpaynxbEjzlpzjauufl with complications and secondary hypertension (20 sources)Hypertensive urgency; Translations: [Hypertension secondary to other renal disorders]Onset: 16-21-0853EkqhsciAzwrpklzcnv chest pain (5 sources)Other chest pain; Translations: [Chest pain, unspecified]Onset: 70-20-2727HwiosrppGhuij aftercare (1 source)Other correction (current) drug therapy; Translations: [OTH PACU NURSE 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 THERAPY]Onset: 69-99-8577WlwpdscxOlmlb and ill-defined heart disease (3 sources)Other ill-defined heart diseases; Translations: [OTHER ILL-DEFINED HEART DISEASES]Onset: 36-37-6124RzckwfhIuwvr ear and sense organ disorders (7 sources)Bilateral objective pulsatile tinnitus of ears; Translations: [Pulsatile tinnitus, bilateral]84-79-0980JhllodweDaxth ear and sense organ disorders (2 sources)Pulsatile tinnitus, bilateral; Translations: [Objective tinnitus] 24-47-3783VrbaqnzfJinpa lower respiratory disease (3 sources)Shortness of breath; Translations: [SHORTNESS OF BREATH]Onset: 76-18-7720UlnejrhuLlvum nutritional; endocrine; and metabolic disorders (9 sources)Abnormal weight gain; Translations: [Abnormal weight gain]05-07-2024 EpisodicOther nutritional; endocrine; and metabolic disorders (2 sources)Abnormal weight gain; Translations: [Abnormal weight gain]05-07-2024 EpisodicOther screening for suspected conditions (not mental disorders or infectious disease) (1 source)Abnormal findings on diagnostic imaging of other specified body structures; Translations: [Abnormalchest x-ray]08-33-3321XwxfspbHyxgk screening for suspected conditions (not mental disorders or infectious disease) (7 sources)Raised TSH level; Translations: [Other specified abnormal findings of blood chemistry]18-23-3311IyhyqvfkYeotxgtwx (except that caused by tuberculosis or sexually transmitted disease) (4 sources)Pneumonia; Translations: [Pneumonia, unspecified organism]07-14-2025 EpisodicResidual codes; unclassified (11 sources)Insomnia; Translations: [Other insomnia]24-23-8730OdkaalvZzvadecq codes; unclassified (1 source)Other insomniaChronicResidual codes; unclassified (4 sources)Procedure and treatment not carried out due to patient leaving prior to being seen by health care provider; Translations: [PROC AND TX NOT CARRIED OUT PT LEAVE]Onset: 07-68-6266YenzeyghKfavvfim codes; unclassified (1 source)Acquired absence of other specified parts of digestive tract; Translations: [ACQ ABSENCE OTH PART DIGESTV TRACT]Onset: 86-50-8993HjaiprgdWnyp and subcutaneous tissue infections (2 sources)Pilonidal cyst; Translations: [Pilonidal cyst without abscess] 23-85-7729BgphtjziHfjradcjk-related disorders (13 sources)Nicotine dependence, cigarettes, uncomplicated; Translations: [Tobacco dependence syndrome]Onset: 687688-97-2392OoliegtOrmulwz (9 sources)Syncope; Translations: [Syncope and collapse]96-53-7947Rkwrfyhh Unclassified (1 source)CONTACT W/AND (SUSP) EXPOS COVID-19; Translations: [CONTACT W/AND (SUSP) EXPOS COVID-19]Onset: 09-28-2022 Past or Other Problems Problem ClassificationProblemDateDocumented DateEpisodic/ChronicCardiac dysrhythmias (2 sources)Bradycardia, unspecified; Translations: [Bradycardia, unspecified] Onset: 28-13-1715MbqokvxeTgmrpox kidney disease (1 source)Chronic kidney diseaseComplications of surgical procedures or medical care (2 sources)Hypotension due to drugs; Translations: [Hypotension due to drugs] Onset: 73-82-0003XbbqekxjGsxucsqt codes; unclassified (3 sources)Localized edema; Translations: [LOCALIZED EDEMA]Onset: 07-20-2022 Episodic Results Test NameValueInterpretationReference RangeFacilityBasophils Auto (Bld) [#/Vol] Ordered By: Albert Bergman on 66-86-7606Ibvjrvdtf (Bld) [#/Vol]0.2 10 3/uLHigh 0.0-0.1FSelect Medical Specialty Hospital - YoungstownBasophils/100 WBC Auto (Bld)Ordered By: Albert Bergman on 32-12-5474Rtnggcues/100 WBC (Bld)2.8 %High0.2-2.0[facility] CenterEosinophils/100 WBC Auto (Bld)Ordered By: Albert Bergman on 26-65-7199Qoiwmmjvrgk/100 WBC (Bld)6.6 %0.9-7.0[facility] CenterErythrocyte distribution width Auto (RBC) [Ratio]Ordered By: Albert Bergman on 21-40-4707Jbtfynnhizd distribution width (RBC) [Ratio]14.6 %11.0-15.0 [facility] CenterGlobulin Calc (S) [Mass/Vol]Ordered By: Maria Isabel Hurtado on 95-12-2660Oqiynlwr (S) [Mass/Vol]3.0 g/dLCoshocton Regional Medical CenterGlomerular filtration rate (GFR) estimation in non- AmericanOrdered By: Albert Bergman on 88-07-7647SNZ/1.73 sq M.predicted among non-blacks MDRD (S/P/Bld) [Vol rate/Area]53 mL/min/{1.73_m2}Low>=60 mL/min/1.73m 2FSelect Medical Specialty Hospital - YoungstownHematocrit Auto (Bld) [Volume fraction]Ordered By: Albert Bergman on 27-74-2906Xbulyokmuq (Bld) [Volume fraction]42.6 %36.0-48.0 [facility] CenterHemoglobin [Mass/volume] in BloodOrdered By: Albert Bergman on 08-60-2771Hrzqvgcnte (Bld) [Mass/Vol]13.9 g/dL12.0-16.0 [facility] CenterLaboratory - Chemistry and Chemistry - challengeOrdered By: Albert Bergman on 06-14-4545Gmxxmgw [Mass/Vol]9.9 mg/dL 8.5-10.1FSelect Medical Specialty Hospital - YoungstownChloride [Moles/Vol]105 mmol/L98-107 [facility] CenterCO2 [Moles/Vol]28.0 mmol/L21.0-32.0[facility] CenterCreatinine [Mass/Vol]0.98 mg/dL0.55-1.02[facility] CenterGFR/1.73 sq M.predicted MDRD (S/P/Bld) [Vol rate/Area] mL/min/{1.73_m2}>=60 mL/min/1.73m 2FSelect Medical Specialty Hospital - YoungstownGlucose [Mass/Vol]149 mg/lPCqjw43-247VpxfjfhnnCoshocton Regional Medical CenterPotassium [Moles/Vol]3.8 mmol/L3.5-5.1FSelect Medical OhioHealth Rehabilitation Hospital - Dublinodium [Moles/Vol] 141 mmol/W540-501FknxqwfujCoshocton Regional Medical CenterUrea nitrogen [Mass/Vol]22.0 mg/dLHigh7.0-18.0[facility] CenterUrea nitrogen/Creatinine [Mass ratio]22.4 mg/mgCoshocton Regional Medical CenterLaboratory - Chemistry and Chemistry - challengeOrdered By: Maria Isabel Hurtado on 37-40-4648Hlwluhy [Mass/Vol]3.3 g/dLLow3.4-5.0[facility] CenterALP [Catalytic activity/Vol]50 U/P46-254UkappmhlpCoshocton Regional Medical CenterALT [Catalytic activity/Vol]11 U/LLow 14-59[facility] CenterAST [Catalytic activity/Vol]14 U/DQvy25-73 [facility] CenterBilirubin [Mass/Vol]0.6 mg/dL0.2-1.0[facility] CenterProtein [Mass/Vol]6.3 g/dLLow6.4-8.2FSelect Medical Specialty Hospital - YoungstownLaboratory - Hematology and Cell countsOrdered By: Albert Bergman on 79-03-2763Ybjxddaa granulocytes/100 WBC (Bld)1.2 %High0.0-0.5FSelect Medical Specialty Hospital - YoungstownLeukocytes [#/volume] corrected for nucleated erythrocytes in Blood by Automated counOrdered By: Albert Bergman on 07-13-2025 WBC corrected for nucl RBC Auto (Bld) [#/Vol]6.7 10 3/uL4.0-11.0[facility] CenterLymphocytes Auto (Bld) [#/Vol]Ordered By: Albert Bergman on 92-89-0200Vmrntklqklo (Bld) [#/Vol]2.2 10 3/uL1.2-3.8[facility] CenterLymphocytes/100 WBC Auto (Bld)Ordered By: Albert Bergman on 30-09-1008Olylactsbjv/100 WBC (Bld)33.4 %20.5-60.0[facility] HospitalH Auto (RBC) [Entitic mass]Ordered By: Albert Bergman on 54-62-7819JTS (RBC) [Entitic mass]29.3 pg26.7-34.0[facility] CenterMCHC Auto (RBC) [Mass/Vol]Ordered By: Albert Bergman on 37-32-7233RIHR (RBC) [Mass/Vol]32.6 g/dL29.9-35.2FSelect Medical Specialty Hospital - YoungstownMCV Auto (RBC) [Entitic vol] Ordered By: Albert Bergman on 89-15-7754AMA (RBC) [Entitic vol]89.9 fL81.0-99.0 [facility] CenterMonocytes Auto (Bld) [#/Vol]Ordered By: Albert Bergman on 25-61-2837Lyveqwveg (Bld) [#/Vol]0.7 10 3/uL0.3-0.8[facility] CenterMonocytes/100 WBC Auto (Bld)Ordered By: Albert Bergman on 18-07-2336Cvqrpxame/100 WBC (Bld)10.3 %1.7-12.0[facility] Neutrophils Auto (Bld) [#/Vol]Ordered By: Albert Bergman on 91-20-5154Kgydtrwntcl (Bld) [#/Vol]3.1 10 3/uL1.4-6.5FSelect Medical Specialty Hospital - YoungstownNeutrophils/100 WBC Auto (Bld)Ordered By: Albert Bergman on 79-51-0788Qycdmvwspgf/100 WBC (Bld) 45.7 %43.0-75.0[facility] CenterNo Panel InformationOrdered By: Albert Bergman on 90-43-9573Klulpatcnmd # (Auto)0.4 10 3/uL0.0-0.7FSelect Medical Specialty Hospital - YoungstownImmature Granulocyte # (Auto)0.08 10 3/uLHigh0.00-0.03 [facility] CenterTroponin I High Sensitivity8.5 pg/mL4.0-51.3 [facility] CenterComment on above:CUT-OFF POINTS HAVE [...] (Bld) [Entitic vol]Ordered By: Albert Bergman on 90-18-5760Mcwgsuju mean volume (Bld) [Entitic vol]11.2 fL9.5-13.5FSelect Medical Specialty Hospital - Youngstown Platelets Auto (Bld) [#/Vol]Ordered By: Albert Bergman on 44-87-5421Sroatloay (Bld) [#/Vol]118 10 3/aRUtn755-946GoumbcdysCoshocton Regional Medical CenterRBC Auto (Bld) [#/Vol]Ordered By: Albert Bergman on 67-94-1975AFR (Bld) [#/Vol]4.74 10 6/uL4.20-5.40[facility] Hospitalerum or plasma albumin/globulin mass ratioOrdered By: Maria Isabel Hurtado on 76-42-2240Lfmjdsp/Globulin [Mass ratio]1.1 {ratio}[facility] Hospitalerum or plasma anion gap determination Ordered By: Albert Bergman on 71-46-9588Aydzn gap [Moles/Vol]11.8 mmol/LFSelect Medical Specialty Hospital - YoungstownBasophils Auto (Bld) [#/Vol]Ordered By: James Wiley on 89-36-0550Lfodhqjnu (Bld) [#/Vol]0.2 10 3/uLHigh0.0-0.1FSelect Medical Specialty Hospital - YoungstownBasophils/100 WBC Auto (Bld)Ordered By: James Wiley on 07-10-2025 Basophils/100 WBC (Bld)2.8 %High0.2-2.0[facility] Eosinophils/100 WBC Auto (Bld)Ordered By: James Wiley on 66-83-4211Cosmycudvbp/100 WBC (Bld)5.4 %0.9-7.0[facility] CenterErythrocyte distribution width Auto (RBC) [Ratio]Ordered By: James Wiley on 84-58-4777Msxozkcpnhv distribution width (RBC) [Ratio]14.7 %11.0-15.0[facility] Globulin Calc (S) [Mass/Vol]Ordered By: James Wiley on 93-67-3532Zmxhilxl (S) [Mass/Vol]3.1 g/dLCoshocton Regional Medical CenterGlomerular filtration rate (GFR) estimation in non- AmericanOrdered By: James Wiley on 07-10-2025 GFR/1.73 sq M.predicted among non-blacks MDRD (S/P/Bld) [Vol rate/Area]56 mL/min/{1.73_m2}Low>=60 mL/min/1.73m 2FSelect Medical Specialty Hospital - [place] Hematocrit Auto (Bld) [Volume fraction]Ordered By: James Wiley on 07-10-2025 Hematocrit (Bld) [Volume fraction]43.1 %36.0-48.0[facility] CenterHemoglobin [Mass/volume] in BloodOrdered By: James Wiley on 07-10-2025 Hemoglobin (Bld) [Mass/Vol]14.0 g/dL12.0-16.0[facility] Laboratory - Chemistry and Chemistry - challengeOrdered By: James Wiley on 22-61-4310Ujzfqxg [Mass/Vol]3.7 g/dL3.4-5.0[facility] CenterALP [Catalytic activity/Vol]56 U/E42-004XlvvgvaouCoshocton Regional Medical CenterALT [Catalytic activity/Vol]12 U/QTfi35-58IpxiyjvtjCoshocton Regional Medical CenterAST [Catalytic activity/Vol]21 U/G13-12Mlwsgnznv Regional Medical CenterBilirubin [Mass/Vol]0.6 mg/dL0.2-1.0[facility] CenterCalcium [Mass/Vol]9.5 mg/dL8.5-10.1FSelect Medical Specialty Hospital - YoungstownChloride [Moles/Vol]105 mmol/L 98-107[facility] CenterCO2 [Moles/Vol]26.4 mmol/L21.0-32.0 [facility] CenterCreatinine [Mass/Vol]0.94 mg/dL0.55-1.02 [facility] CenterGFR/1.73 sq M.predicted MDRD (S/P/Bld) [Vol rate/Area]mL/min/{1.73_m2}>=60 mL/min/1.73m 2FSelect Medical Specialty Hospital - [place]stown Glucose [Mass/Vol]114 mg/vGGhpq66-209OeqwzuvwlCoshocton Regional Medical CenterPotassium [Moles/Vol]3.6 mmol/L3.5-5.1FSelect Medical Specialty Hospital - YoungstownProtein [Mass/Vol] 6.8 g/dL6.4-8.2FSelect Medical OhioHealth Rehabilitation Hospital - Dublinodium [Moles/Vol]142 mmol/L 136-145[facility] CenterUrea nitrogen [Mass/Vol]17.0 mg/dL 7.0-18.0[facility] CenterUrea nitrogen/Creatinine [Mass ratio] 18.1 mg/mgCoshocton Regional Medical CenterLaboratory - Hematology and Cell countsOrdered By: James Wiley on 29-15-7236Klgrfrbt granulocytes/100 WBC (Bld)0.4 % 0.0-0.5FSelect Medical Specialty Hospital - YoungstownLeukocytes [#/volume] corrected for nucleated erythrocytes in Blood by Automated counOrdered By: James Wiley on 63-14-7154CJF corrected for nucl RBC Auto (Bld) [#/Vol]6.7 10 3/uL4.0-11.0 [facility] CenterLymphocytes Auto (Bld) [#/Vol]Ordered By: James Wiley on 63-39-8917Xglavabmcgt (Bld) [#/Vol]1.7 10 3/uL1.2-3.8[facility] CenterLymphocytes/100 WBC Auto (Bld)Ordered By: James Wiley on 07-10-2025 Lymphocytes/100 WBC (Bld)25.6 %20.5-60.0[facility]. [facility] HospitalH Auto (RBC) [Entitic mass]Ordered By: James Wiley on 69-07-4803GNL (RBC) [Entitic mass]29.5 pg26.7-34.0[facility] CenterMCHC Auto (RBC) [Mass/Vol] Ordered By: James Wiley on 08-67-7121IEQR (RBC) [Mass/Vol]32.5 g/dL29.9-35.2 [facility] CenterMCV Auto (RBC) [Entitic vol]Ordered By: James Wiley on 44-48-6686OXE (RBC) [Entitic vol]90.9 fL81.0-99.0[facility] CenterMonocytes Auto (Bld) [#/Vol]Ordered By: James Wiley on 07-10-2025 Monocytes (Bld) [#/Vol]0.9 10 3/uLHigh0.3-0.8[facility] Monocytes/100 WBC Auto (Bld)Ordered By: James Wiley on 51-28-8936Ywnyyxvtj/100 WBC (Bld)13.2 %High1.7-12.0[facility] CenterNeutrophils Auto (Bld) [#/Vol]Ordered By: James Wiley on 89-50-9207Aisexvjnlcj (Bld) [#/Vol]3.5 10 3/uL 1.4-6.5FSelect Medical Specialty Hospital - YoungstownNeutrophils/100 WBC Auto (Bld)Ordered By: James Wiley on 11-15-3764Oeccctrreea/100 WBC (Bld)52.6 %43.0-75.0[facility] CenterNo Panel InformationOrdered By: James Wiley on 07-10-2025 Eosinophils # (Auto)0.4 10 3/uL0.0-0.7FSelect Medical Specialty Hospital - YoungstownImmature Granulocyte # (Auto)0.03 10 3/uL0.00-0.03[facility] Platelet mean volume Auto (Bld) [Entitic vol]Ordered By: James Wiley on 07-10-2025 Platelet mean volume (Bld) [Entitic vol]10.9 fL9.5-13.5FSelect Medical Specialty Hospital - YoungstownPlatelets Auto (Bld) [#/Vol]Ordered By: James Wiley on 07-10-2025 Platelets (Bld) [#/Vol]114 10 3/lTYuo930-860RjsfwqgyyCoshocton Regional Medical CenterRBC Auto (Bld) [#/Vol]Ordered By: James Wiley on 53-14-8978TWK (Bld) [#/Vol]4.74 10 6/uL4.20-5.40[facility] Hospitalerum or plasma albumin/globulin mass ratioOrdered By: James Wiley on 70-56-5604Fslpxur/Globulin [Mass ratio]1.2 {ratio}[facility] Hospitalerum or plasma anion gap determination Ordered By: James Wiley on 21-47-8941Zcryr gap [Moles/Vol]14.2 mmol/LFSelect Medical Specialty Hospital - YoungstownBasophils Auto (Bld) [#/Vol]Ordered By: Dennys Aguilar on 35-93-5149Hjgjhshwi (Bld) [#/Vol]0.2 10 3/uLHigh0.0-0.1FSelect Medical Specialty Hospital - YoungstownBasophils/100 WBC Auto (Bld)Ordered By: Dennys Aguilar on 07-07-2025 Basophils/100 WBC (Bld)2.6 %High0.2-2.0[facility] Eosinophils/100 WBC Auto (Bld)Ordered By: Dennys Aguilar on 07-07-2025 Eosinophils/100 WBC (Bld)5.4 %0.9-7.0[facility] Erythrocyte distribution width Auto (RBC) [Ratio]Ordered By: Dennys Aguilar on 84-88-1368Wjemdxryink distribution width (RBC) [Ratio]14.6 %11.0-15.0[facility] CenterGlomerular filtration rate (GFR) estimation in non- AmericanOrdered By: Dennys Aguilar on 14-20-6507CFL/1.73 sq M.predicted among non-blacks MDRD (S/P/Bld) [Vol rate/Area]49 mL/min/{1.73_m2}Low>=60 mL/min/1.73m 2[facility] CenterHematocrit Auto (Bld) [Volume fraction]Ordered By: Dennys Aguilar on 05-64-0537Aktojzkoug (Bld) [Volume fraction] 44.7 %36.0-48.0[facility] CenterHemoglobin [Mass/volume] in BloodOrdered By: Dennys Aguilar on 93-63-0045Abpsmdnlcn (Bld) [Mass/Vol]14.4 g/dL 12.0-16.0[facility] CenterLaboratory - Chemistry and Chemistry - challengeOrdered By: Dennys Aguilar on 97-15-0575Umojsiz [Mass/Vol]9.5 mg/dL 8.5-10.1FSelect Medical Specialty Hospital - YoungstownChloride [Moles/Vol]104 mmol/L98-107 [facility] CenterCO2 [Moles/Vol]27.2 mmol/L21.0-32.0[facility] CenterCreatinine [Mass/Vol]1.05 mg/dLHigh0.55-1.02[facility] CenterGFR/1.73 sq M.predicted MDRD (S/P/Bld) [Vol rate/Area]60 mL/min/{1.73_m2}>=60 mL/min/1.73m 2FSelect Medical Specialty Hospital - YoungstownGlucose [Mass/Vol]113 mg/lJShpw61-896JledqbmasCoshocton Regional Medical CenterNatriuretic peptide B (Bld) [Mass/Vol]418.0 pg/mL<=1800.0[facility] Potassium [Moles/Vol]3.8 mmol/L3.5-5.1FSelect Medical OhioHealth Rehabilitation Hospital - Dublinodium [Moles/Vol]141 mmol/K667-572LzzkanahwCoshocton Regional Medical CenterUrea nitrogen [Mass/Vol]17.0 mg/dL7.0-18.0[facility] CenterUrea nitrogen/Creatinine [Mass ratio]16.2 mg/mgCoshocton Regional Medical Center Laboratory - Hematology and Cell countsOrdered By: Dennys Aguilar on 07-07-2025 Immature granulocytes/100 WBC (Bld)0.4 %0.0-0.5FSelect [facility]ty [facility] [place] Leukocytes [#/volume] corrected for nucleated erythrocytes in Blood by Automated counOrdered By: Dennys Aguilar on 29-83-0289IUO corrected for nucl RBC Auto (Bld) [#/Vol]8.3 10 3/uL4.0-11.0[facility] CenterLymphocytes Auto (Bld) [#/Vol]Ordered By: Dennys Aguilar on 27-09-0145Ggvpwdylqqe (Bld) [#/Vol]1.7 10 3/uL1.2-3.8[facility] CenterLymphocytes/100 WBC Auto (Bld) Ordered By: Dennys Aguilar on 08-23-4918Jiyzhrrsibz/100 WBC (Bld)19.8 %Low20.5-60.0 [facility] CenterMCH Auto (RBC) [Entitic mass]Ordered By: Dennys Aguilar on 28-64-3117MFI (RBC) [Entitic mass]29.5 pg26.7-34.0[facility] CenterMCHC Auto (RBC) [Mass/Vol]Ordered By: Dennys Aguilar on 07-07-2025 MCHC (RBC) [Mass/Vol]32.2 g/dL29.9-35.2FSelect Medical Specialty Hospital - YoungstownMCV Auto (RBC) [Entitic vol]Ordered By: Dennys Aguilar on 43-66-0601ODT (RBC) [Entitic vol] 91.6 fL81.0-99.0[facility] CenterMonocytes Auto (Bld) [#/Vol] Ordered By: Dennys Aguilar on 14-18-3506Qursxaoig (Bld) [#/Vol]1.2 10 3/uLHigh 0.3-0.8[facility] CenterMonocytes/100 WBC Auto (Bld)Ordered By: Dennys Aguilar on 39-25-6952Rbegmvtkp/100 WBC (Bld)14.9 %High1.7-12.0[facility] CenterNeutrophils Auto (Bld) [#/Vol]Ordered By: Dennys Aguilar on 21-73-7740Ilrisnkwjll (Bld) [#/Vol]4.7 10 3/uL1.4-6.5FSelect Medical Specialty Hospital - YoungstownNeutrophils/100 WBC Auto (Bld)Ordered By: Dennys Aguilar on 07-07-2025 Neutrophils/100 WBC (Bld)56.9 %43.0-75.0[facility] CenterNo Panel InformationOrdered By: Dennys Aguilar on 34-59-2764Lfcnxfohtlp # (Auto)0.5 10 3/uL0.0-0.7FSelect Medical Specialty Hospital - YoungstownImmature Granulocyte # (Auto)0.03 10 3/uL0.00-0.03[facility] CenterTroponin I High Sensitivity9.9 pg/mL4.0-51.3FSelect Medical Specialty Hospital - YoungstownComment on above:CUT-OFF POINTS HAVE BEEN ESTABLISHED BASED [...] (Bld) [Entitic vol]Ordered By: Dennys Aguilar on 18-78-6694Kiplpgrw mean volume (Bld) [Entitic vol]11.4 fL9.5-13.5FSelect Medical Specialty Hospital - YoungstownPlatelets Auto (Bld) [#/Vol]Ordered By: Dennys Aguilar on 03-54-6848Jlgvcmktr (Bld) [#/Vol]119 10 3/jDWod904-418KmxuvhmmpCoshocton Regional Medical CenterRBC Auto (Bld) [#/Vol]Ordered By: Dennys Aguilar on 68-36-6072OBM (Bld) [#/Vol]4.88 10 6/uL4.20-5.40[facility] Community Hospitalerum or plasma anion gap determinationOrdered By: Dennys Aguilar on 79-82-1969Krpxl gap [Moles/Vol]13.6 mmol/LFSelect Medical Specialty Hospital - YoungstownActivated partial thromboplastin time (aPTT) in platelet poor plasma by coagulation aOrdered By: Daphne Emanuel on 43-09-0882jTCH Coag (PPP) [Time]27.4 s22.3-36.2FSelect Medical Specialty Hospital - YoungstownBasophils Auto (Bld) [#/Vol]Ordered By: Daphne Emanuel on 04-06-2025 Basophils (Bld) [#/Vol]0.2 10 3/uLHigh0.0-0.1FSelect Medical Specialty Hospital - [place] Basophils/100 WBC Auto (Bld)Ordered By: Daphne Emanuel on 18-30-3943Yergmplzk/100 WBC (Bld)4.2 %High0.2-2.0[facility] CenterEosinophils/100 WBC Auto (Bld)Ordered By: Daphne Emanuel on 68-41-8723Xkwxhbklytl/100 WBC (Bld)9.2 %High 0.9-7.0[facility] CenterErythrocyte distribution width Auto (RBC) [Ratio]Ordered By: Daphne Emanuel on 76-21-0444Jujvilugysa distribution width (RBC) [Ratio]14.7 %11.0-15.0[facility] CenterEstimated glomerular filtration rate (GFR) non- AmericanOrdered By: Daphne Emanuel on 62-08-9599QLA/1.73 sq M.predicted among non-blacks MDRD (S/P/Bld) [Vol rate/Area]54 mL/min/{1.73_m2}Low>=60 mL/min/1.73m 2FSelect Medical Specialty Hospital - YoungstownGlobulin Calc (S) [Mass/Vol]Ordered By: Daphne Emanuel on 73-28-5213Gwgemlvq (S) [Mass/Vol]3.1 g/dLCoshocton Regional Medical CenterHematocrit Auto (Bld) [Volume fraction]Ordered By: Daphne Emanuel on 62-86-8073Fabtifndfl (Bld) [Volume fraction]45.0 %36.0-48.0[facility] CenterHemoglobin [Mass/volume] in BloodOrdered By: Daphne Emanuel on 50-70-8355Rcfbdgqcuj (Bld) [Mass/Vol]14.7 g/dL12.0-16.0[facility] CenterINR in Platelet poor plasma by Coagulation assayOrdered By: Daphne Emanuel on 45-51-4662CRO Coag (PPP) [Relative time]1.32 {INR}[facility] CenterComment on above:DESIRED INR:2.0-3.0 CONDITIONS NOT LISTED BELOW2.5-3.5 FOR PROSTHETIC HEART VALVE REPLACEMENT2.5-3.5 RECURRENT THROMBOSISLaboratory - Chemistry and Chemistry - challengeOrdered By: Daphne Emanuel on 51-22-8483Jpxqnccfm Ql (U)Negative NEGATIVECoshocton Regional Medical CenterGlucose (U) [Mass/Vol]NegativeNEGATIVE [facility] CenterKetones Ql (U)NegativeNEGATIVECoshocton Regional Medical CenterpH (U)7.0 [pH]5.0-9.0[facility] Specific gravity (U) [Rel density]1.0101.005-1.025[facility] CenterUrobilinogen Qn (U)0.2 {Myranda'U}/dL0.2-1.0[facility] CenterAlbumin [Mass/Vol]3.7 g/dL3.4-5.0[facility] CenterALP [Catalytic activity/Vol]64 U/G02-514DqlguugtaCoshocton Regional Medical CenterALT [Catalytic activity/Vol]16 U/T89-44ZweahtcvgCoshocton Regional Medical CenterAST [Catalytic activity/Vol]14 U/IKne21-15HbxbsvvpsCoshocton Regional Medical CenterBilirubin [Mass/Vol]0.4 mg/dL0.2-1.0[facility] CenterCalcium [Mass/Vol]9.9 mg/dL8.5-10.1FSelect Medical Specialty Hospital - YoungstownChloride [Moles/Vol]106 mmol/L 98-107[facility] CenterCO2 [Moles/Vol]26.9 mmol/L21.0-32.0 [facility] CenterCreatinine [Mass/Vol]0.97 mg/dL0.55-1.02 [facility] CenterGFR/1.73 sq M.predicted MDRD (S/P/Bld) [Vol rate/Area]mL/min/{1.73_m2}>=60 mL/min/1.73m 2FSelect Medical Specialty Hospital - [place] Glucose [Mass/Vol]102 mg/iE11-158MpfdknmpsCoshocton Regional Medical CenterNatriuretic peptide B (Bld) [Mass/Vol]213.0 pg/mL<=1800.0[facility] Potassium [Moles/Vol]3.8 mmol/L3.5-5.1FSelect Medical Specialty Hospital - YoungstownProtein [Mass/Vol]6.8 g/dL6.4-8.2FSelect Medical OhioHealth Rehabilitation Hospital - Dublinodium [Moles/Vol]144 mmol/P281-756PgjyzrkquCoshocton Regional Medical CenterUrea nitrogen [Mass/Vol]19.0 mg/dL High7.0-18.0[facility] CenterUrea nitrogen/Creatinine [Mass ratio]19.6 mg/mgCoshocton Regional Medical CenterLaboratory - Hematology and Cell countsOrdered By: Daphne Emanuel on 65-24-3839Esmlihkr granulocytes/100 WBC (Bld)0.5 %0.0-0.5FSelect Medical Specialty Hospital - YoungstownLaboratory - Specimen informationOrdered By: Daphne Emanuel on 86-48-0309Izlogfhudb (U)CLEARCLEARFSelect Medical Specialty Hospital - YoungstownColor (U)LT. YELLOWYELLOWCoshocton Regional Medical CenterLaboratory - UrinalysisOrdered By: Daphne Emanuel on 91-89-7059Imdbmphrd esterase Test strip Ql (U)NegativeNEGUC HealthMucus Ql (Urine sed)TRACEAbnormalNONE SEENCoshocton Regional Medical CenterNitrite Ql (U)NegativeNEGUC HealthProtein Ql (U)Negative NEG/TRACECoshocton Regional Medical CenterLeukocytes [#/volume] corrected for nucleated erythrocytes in Blood by Automated counOrdered By: Daphne Emanuel on 98-18-0299LLN corrected for nucl RBC Auto (Bld) [#/Vol]5.8 10 3/uL4.0-11.0 [facility] CenterLymphocytes Auto (Bld) [#/Vol]Ordered By: Daphne Emanuel on 59-27-8312Aqduuuzqqzt (Bld) [#/Vol]2.3 10 3/uL1.2-3.8[facility] CenterLymphocytes/100 WBC Auto (Bld)Ordered By: Daphne Emanuel on 04-06-2025 Lymphocytes/100 WBC (Bld)39.5 %20.5-60.0[facility] CenterMCH Auto (RBC) [Entitic mass]Ordered By: Daphne Emanuel on 82-20-8589POR (RBC) [Entitic mass]30.0 pg26.7-34.0[facility] CenterMCHC Auto (RBC) [Mass/Vol] Ordered By: Daphen Emanuel on 98-07-9332GBOX (RBC) [Mass/Vol]32.7 g/dL29.9-35.2 [facility] CenterMCV Auto (RBC) [Entitic vol]Ordered By: Daphne Emanuel on 34-56-5479ETS (RBC) [Entitic vol]91.8 fL81.0-99.0[facility] CenterMonocytes Auto (Bld) [#/Vol]Ordered By: Daphne Emanuel on 04-06-2025 Monocytes (Bld) [#/Vol]0.8 10 3/uL0.3-0.8[facility] Monocytes/100 WBC Auto (Bld)Ordered By: Daphne Emanuel on 44-34-1434Xmunljzwl/100 WBC (Bld)13.6 %High1.7-12.0[facility] CenterNeutrophils Auto (Bld) [#/Vol]Ordered By: Daphne Emanuel on 99-03-1402Hsinzujxfcp (Bld) [#/Vol]1.9 10 3/uL 1.4-6.5FSelect Medical Specialty Hospital - YoungstownNeutrophils/100 WBC Auto (Bld)Ordered By: Daphne Emanuel on 63-42-8485Xhffbbhockn/100 WBC (Bld)33.0 %Low43.0-75.0[facility] CenterNo Panel InformationOrdered By: Daphne Emanuel on 04-06-2025 Urine BacteriaTRACE #/HPFAbnormalNONE SEENCoshocton Regional Medical CenterUrine Culture ReflexedNOCoshocton Regional Medical CenterUrine Occult BloodNegative NEGATIVECoshocton Regional Medical CenterUrine Other CastsNONE SEEN #/LPFNONE [facility]ome[facility] HospitalUrine Other CrystalsNone Seen #/HPFNone [facility] HospitalUrine RBC0-2 #/HPF0-2FSelect Medical Specialty Hospital - YoungstownUrine Squamous Epithelial CellsRARE #/LPFNONE/RARECoshocton Regional Medical CenterUrine WBCNONE SEEN #/HPFNONE [facility]ome[facility] HospitalEosinophils # (Auto)0.5 10 3/uL0.0-0.7FSelect Medical Specialty Hospital - YoungstownImmature Granulocyte # (Auto)0.03 10 3/uL0.00-0.03[facility] CenterTroponin I High Sensitivity8.7 pg/mL4.0-51.3FSelect Medical Specialty Hospital - YoungstownComment on above:CUT-OFF POINTS HAVE BEEN ESTABLISHED BASED [...] (Bld) [Entitic vol]Ordered By: Daphne Emanuel on 24-62-1150Gdmijhux mean volume (Bld) [Entitic vol]10.7 fL9.5-13.5FSelect Medical Specialty Hospital - YoungstownPlatelets Auto (Bld) [#/Vol]Ordered By: Daphne Emanuel on 30-80-7458Cqfeeyytt (Bld) [#/Vol]135 10 3/yORdy865-685DywrnmuykCoshocton Regional Medical CenterProthrombin time (PT)Ordered By: Daphne Emanuel on 50-60-1149TI Coag (PPP) [Time]13.6 sHigh9.0-11.6FSelect Medical Specialty Hospital - YoungstownRBC Auto (Bld) [#/Vol]Ordered By: Daphne Emanuel on 04-06-2025 RBC (Bld) [#/Vol]4.90 10 6/uL4.20-5.40[facility] Hospitalerum or plasma albumin/globulin mass ratioOrdered By: Daphne Emanuel on 04-06-2025 Albumin/Globulin [Mass ratio]1.2 {ratio}[facility] Hospitalerum or plasma anion gap determinationOrdered By: Daphne Emanuel on 17-24-2729Uevls gap [Moles/Vol]14.9 mmol/LFSelect Medical Specialty Hospital - YoungstownOffice Visiton 02-12-2025 Follow-up [id number] Zoraida Barrios 1935 F Date Provider Department Center 02/12/2025 MISSY OCASIO CARD [facility] Family History Problem Relation Age of Onset Hypertension Mother Family Status - Relation Status Age at Mother Father Level of Service:[address] CT OFFICE/OUTPATIENT ESTABLISHED MOD [facility] 30 [facility]Basophils Auto (Bld) [#/Vol]on 12-24-2024 Basophils (Bld) [#/Vol]Automated basophil countHigh0.0-0.1FSelect Medical Specialty Hospital - YoungstownBasophils/100 WBC Auto (Bld)on 30-57-3071Vuusqpfgs/100 WBC (Bld) Automated basophil %High0.2-2.0[facility] CenterEosinophils/100 WBC Auto (Bld)on 44-16-9446Ioripcxuqas/100 WBC (Bld)Automated eosinophil % 0.9-7.0[facility] CenterErythrocyte distribution width Auto (RBC) [Ratio]on 27-18-1913Gwmxpscdweo distribution width (RBC) [Ratio] Erythrocyte distribution width [Ratio] by Automated count11.0-15.0[facility] CenterEstimated glomerular filtration rate (GFR) non- Americanon 17-65-5983LFF/1.73 sq M.predicted among non-blacks MDRD (S/P/Bld) [Vol rate/Area]Estimated glomerular filtration rate (GFR) non- Low>=60 mL/min/1.73m 2FSelect Medical Specialty Hospital - YoungstownGlobulin Calc (S) [Mass/Vol]on 15-38-7980Ynbszjfr (S) [Mass/Vol]Serum globulin measurement by calculation (mass/volume)[facility] CenterHematocrit Auto (Bld) [Volume fraction]on 71-74-5577Qmvrvkdooc (Bld) [Volume fraction]Hematocrit [Volume Fraction] of Blood by Automated count36.0-48.0[facility] CenterHemoglobin [Mass/volume] in Bloodon 15-66-0466Vyxscjfqwi (Bld) [Mass/Vol] Hemoglobin [Mass/volume] in Blood12.0-16.0[facility] Laboratory - Chemistry and Chemistry - challengeon 34-47-8958Iaqcyzm [Mass/Vol] 3.4 g/dL3.4-5.0[facility] CenterALP [Catalytic activity/Vol]55 U/R62-021VpwrlhyqjCoshocton Regional Medical CenterALT [Catalytic activity/Vol]14 U/L 14-59[facility] CenterAST [Catalytic activity/Vol]15 U/L15-37 [facility] CenterBilirubin [Mass/Vol]0.3 mg/dL0.2-1.0[facility] CenterCalcium [Mass/Vol]9.8 mg/dL8.5-10.1FSelect Medical Specialty Hospital - YoungstownChloride [Moles/Vol]106 mmol/X24-421UkdzqvgigCoshocton Regional Medical CenterCO2 [Moles/Vol]29.4 mmol/L21.0-32.0[facility] Creatinine [Mass/Vol]1.24 mg/dLHigh0.55-1.02[facility] GFR/1.73 sq M.predicted MDRD (S/P/Bld) [Vol rate/Area]49 mL/min/{1.73_m2}Low>=60 mL/min/1.73m 2FSelect Medical Specialty Hospital - YoungstownGlucose [Mass/Vol]158 mg/dLHigh 74-106[facility] CenterPotassium [Moles/Vol]3.5 mmol/L3.5-5.1 [facility] CenterProtein [Mass/Vol]6.3 g/dLLow6.4-8.2FSelect Medical OhioHealth Rehabilitation Hospital - Dublinodium [Moles/Vol]143 mmol/O134-209UqmcvhqijCoshocton Regional Medical CenterUrea nitrogen [Mass/Vol]25.0 mg/dLHigh7.0-18.0[facility] CenterUrea nitrogen/Creatinine [Mass ratio]20.2 mg/mgCoshocton Regional Medical CenterLaboratory - Hematology and Cell countson 04-18-4251Odvwpcya granulocytes/100 WBC (Bld)0.4 %0.0-0.5FSelect Medical Specialty Hospital - Youngstown Leukocytes [#/volume] corrected for nucleated erythrocytes in Blood by Automated counon 58-51-8873JSD corrected for nucl RBC Auto (Bld) [#/Vol]Leukocytes [#/volume] corrected for nucleated erythrocytes in Blood by Automated coun 4.0-11.0[facility] CenterLymphocytes Auto (Bld) [#/Vol]on 86-54-4104Agsknydbjig (Bld) [#/Vol]Lymphocytes [#/volume] in Blood by Automated count1.2-3.8[facility] CenterLymphocytes/100 WBC Auto (Bld)on 45-16-5772Udoocdcnpml/100 WBC (Bld)Lymphocytes/100 leukocytes in Blood by Automated count20.5-60.0[facility] HospitalH Auto (RBC) [Entitic mass]on 71-76-7139TOS (RBC) [Entitic mass]MCH [Entitic mass] by Automated count 26.7-34.0[facility] CenterMCHC Auto (RBC) [Mass/Vol]on 61-32-5795VDME (RBC) [Mass/Vol]MCHC [Mass/volume] by Automated count29.9-35.2 [facility] CenterMCV Auto (RBC) [Entitic vol]on 33-14-8775KMT (RBC) [Entitic vol]MCV [Entitic volume] by Automated count81.0-99.0[facility] CenterMonocytes Auto (Bld) [#/Vol]on 21-80-6004Axobxvqkn (Bld) [#/Vol]Automated blood monocyte count0.3-0.8[facility] Monocytes/100 WBC Auto (Bld)on 86-38-4009Uouwwfuvb/100 WBC (Bld)Automated monocyte %High1.7-12.0[facility] CenterNeutrophils Auto (Bld) [#/Vol]on 90-85-7351Rzyhnksvvzf (Bld) [#/Vol]Neutrophils [#/volume] in Blood by Automated count1.4-6.5FSelect Medical Specialty Hospital - YoungstownNeutrophils/100 WBC Auto (Bld)on 33-97-4306Rxohayejhas/100 WBC (Bld)Automated neutrophil %43.0-75.0 [facility] CenterNo Panel Informationon 73-76-0586Lkgvqdaikgs # (Auto)0.3 10 3/uL0.0-0.7[facility] CenterImmature Granulocyte # (Auto)0.02 10 3/uL0.00-0.03[facility] CenterTroponin I High Sensitivity8.8 pg/mL4.0-51.3FSelect Medical Specialty Hospital - YoungstownComment on above: CUT-OFF POINTS HAVE BEEN ESTABLISHED [...] volume [Entitic volume] in Blood by Automated count9.5-13.5FSelect Medical Specialty Hospital - YoungstownPlatelets Auto (Bld) [#/Vol]on 29-87-3060Rsaobiyoo (Bld) [#/Vol]Platelets [#/volume] in Blood by Automated bgntyYdf706-590JwgnnlndiCoshocton Regional Medical CenterRBC Auto (Bld) [#/Vol]on 84-87-5062VDV (Bld) [#/Vol]Erythrocytes [#/volume] in Blood by Automated count4.20-5.40[facility] Hospitalerum or plasma albumin/globulin mass ratioon 26-22-3501Avntvsy/Globulin [Mass ratio]Serum or plasma albumin/globulin mass ratioWooster Community Hospitalerum or plasma anion gap determinationon 01-20-1506Adlmy gap [Moles/Vol]Serum or plasma anion gap determinationCoshocton Regional Medical CenterOffice Visiton 07-83-2274Fadwzz-up [id number] Zoraida Barrios 1935 F Date Provider Department Center 11/28/2024 EDVIN PALM CRISTOBAL [facility] Family History Problem Relation Age of Onset Hypertension Mother Family Status - Relation Status Age at Mother Level of Service:[address] CT OFFICE/OUTPATIENT ESTABLISHED LOW [facility] HospitalOffice Visiton 76-70-8945Chfeaf-up visit [id number] Zoraida Barrios Chris 1935 F Date Provider Department Center 06/28/2024 AALIYAH HENDERSON [facility] Family History Problem Relation Age of Onset Hypertension Mother Family Status - Relation Status Age at Mother Level of Service:60[address] CT OFFICE/OUTPATIENT ESTABLISHED LOW MDM 20 [facility] HospitalBasophils Auto (Bld) [#/Vol]on 05-15-2024 Basophils (Bld) [#/Vol]0.2 10 3/uLHigh0.0-0.1FSelect Medical Specialty Hospital - [place] Basophils/100 WBC Auto (Bld)on 35-48-9790Vvewbzvdb/100 WBC (Bld)2.2 %High0.2-2.0 [facility] CenterEosinophils/100 WBC Auto (Bld)on 05-15-2024 Eosinophils/100 WBC (Bld)5.0 %0.9-7.0[facility] Erythrocyte distribution width Auto (RBC) [Ratio]on 55-09-8687Kvyjgiiktzo distribution width (RBC) [Ratio]14.7 %11.0-15.0[facility] Estimated glomerular filtration rate (GFR) non- Americanon 05-15-2024 GFR/1.73 sq M.predicted among non-blacks MDRD (S/P/Bld) [Vol rate/Area]45 mL/min/{1.73_m2}Low>=60[facility] CenterHematocrit Auto (Bld) [Volume fraction]on 83-22-0137Ucjcurjqht (Bld) [Volume fraction]40.2 %36.0-48.0 [facility] CenterHemoglobin [Mass/volume] in Bloodon 05-15-2024 Hemoglobin (Bld) [Mass/Vol]13.0 g/dL12.0-16.0[facility] Laboratory - Chemistry and Chemistry - challengeon 34-12-1578Lbuahkx [Mass/Vol] 9.5 mg/dL8.5-10.1FSelect Medical Specialty Hospital - YoungstownChloride [Moles/Vol]105 mmol/L 98-107[facility] CenterCO2 [Moles/Vol]26.4 mmol/L21.0-32.0 [facility] CenterCobalamin (Vitamin B12) [Mass/Vol]618.0 pg/mL 193.0-986.0[facility] CenterCreatinine [Mass/Vol]1.15 mg/dLHigh 0.55-1.02[facility] CenterFree T4 [Mass/Vol]1.06 ng/dL0.76-1.46 [facility] CenterGFR/1.73 sq M.predicted MDRD (S/P/Bld) [Vol rate/Area]54 mL/min/{1.73_m2}Low>=60[facility] CenterGlucose [Mass/Vol]104 mg/sP10-251QckufwqclCoshocton Regional Medical CenterPotassium [Moles/Vol] 4.2 mmol/L3.5-5.1FSelect Medical OhioHealth Rehabilitation Hospital - Dublinodium [Moles/Vol]137 mmol/L 136-145[facility] CenterTSH Qn4.417 m[IU]/LHigh0.358-3.740 [facility] CenterUrea nitrogen [Mass/Vol]20.0 mg/dLHigh7.0-18.0 [facility] CenterUrea nitrogen/Creatinine [Mass ratio]17.4 mg/mg [facility] CenterLaboratory - Hematology and Cell countson 90-40-1450Mbuhvnkl granulocytes/100 WBC (Bld)1.3 %High0.0-0.5FSelect Medical Specialty Hospital - YoungstownLeukocytes [#/volume] corrected for nucleated erythrocytes in Blood by Automated counon 58-37-3089OJG corrected for nucl RBC Auto (Bld) [#/Vol]10.4 10 3/uL4.0-11.0[facility] CenterLymphocytes Auto (Bld) [#/Vol]on 58-62-8800Pcwxzaohcah (Bld) [#/Vol]2.1 10 3/uL1.2-3.8[facility] CenterLymphocytes/100 WBC Auto (Bld)on 05-15-2024 Lymphocytes/100 WBC (Bld)20.1 %Low20.5-60.0[facility] Auto (RBC) [Entitic mass]on 77-06-9709TYH (RBC) [Entitic mass]30.2 pg26.7-34.0 [facility] CenterMCHC Auto (RBC) [Mass/Vol]on 87-25-6469PHSY (RBC) [Mass/Vol]32.3 g/dL29.9-35.2FSelect Medical Specialty Hospital - YoungstownMCV Auto (RBC) [Entitic vol]on 83-43-7548HEV (RBC) [Entitic vol]93.3 fL81.0-99.0[facility] CenterMonocytes Auto (Bld) [#/Vol]on 70-93-9684Qrduwilfp (Bld) [#/Vol]1.4 10 3/uLHigh0.3-0.8[facility] CenterMonocytes/100 WBC Auto (Bld)on 84-00-6181Nktecvlgo/100 WBC (Bld)13.0 %High1.7-12.0[facility] CenterNeutrophils Auto (Bld) [#/Vol]on 21-81-3168Qntfnusynel (Bld) [#/Vol]6.1 10 3/uL1.4-6.5FSelect Medical Specialty Hospital - YoungstownNeutrophils/100 WBC Auto (Bld)on 14-16-8429Zrmqaeuahtl/100 WBC (Bld)58.4 %43.0-75.0[facility] CenterNo Panel Informationon 26-62-363167548938-Rwhmwhp Vitamin D Total32.6 ng/mLCoshocton Regional Medical CenterComment on above:<20 ng/mL Vit D jomujlotf07-<30 ng/mL Vit D jokedfzlzafr98-450 ng/mL Vit D sufficient>100 ng/mL Potential ToxicityEosinophils # (Auto)0.5 10 3/uL0.0-0.7FSelect Medical Specialty Hospital - YoungstownFolate12.10 ng/mL8.60-58.90[facility] Immature Granulocyte # (Auto)0.13 10 3/uLHigh0.00-0.03[facility] CenterPlatelet mean volume Auto (Bld) [Entitic vol]on 02-20-7632Ebmxkawl mean volume (Bld) [Entitic vol]10.7 fL9.5-13.5FSelect Medical Specialty Hospital - Youngstown Platelets Auto (Bld) [#/Vol]on 34-19-9989Wsiocwyqu (Bld) [#/Vol]132 10 3/uLLow 150-450[facility] CenterRBC Auto (Bld) [#/Vol]on 57-04-7874DWE (Bld) [#/Vol]4.31 10 6/uL4.20-5.40[facility] Hospitalerum or plasma anion gap determinationon 59-74-7802Oorzu gap [Moles/Vol]9.8 mmol/L [facility] CenterBasophils Auto (Bld) [#/Vol]on 05-10-2024 Basophils (Bld) [#/Vol]0.2 10 3/uLHigh0.0-0.1FSelect Medical Specialty Hospital - [place] Basophils/100 WBC Auto (Bld)on 30-76-3667Vzcttwsgm/100 WBC (Bld)3.1 %High0.2-2.0 [facility] CenterEosinophils/100 WBC Auto (Bld)on 05-10-2024 Eosinophils/100 WBC (Bld)6.3 %0.9-7.0[facility] Erythrocyte distribution width Auto (RBC) [Ratio]on 41-64-9872Emcpeiqvaoa distribution width (RBC) [Ratio]14.8 %11.0-15.0[facility] Estimated glomerular filtration rate (GFR) non- Americanon 05-10-2024 GFR/1.73 sq M.predicted among non-blacks MDRD (S/P/Bld) [Vol rate/Area]39 mL/min/{1.73_m2}Low>=60[facility] CenterFibrin D-dimer [Presence] in Platelet poor plasma by Latex agglutinationon 54-64-8000Bpffsf D- dimer LA Ql (PPP)0.29 mg/L FEU<=0.59[facility] CenterComment on above:Increases in D-Dimer [...] stress, and generalizedhospitalization. Globulin Calc (S) [Mass/Vol]on 27-97-3590Kmaxvlcs (S) [Mass/Vol]3.1 g/dL [facility] CenterHematocrit Auto (Bld) [Volume fraction]on 48-93-0194Chubgxdxcy (Bld) [Volume fraction]39.6 %36.0-48.0[facility] CenterHemoglobin [Mass/volume] in Bloodon 14-42-5220Ilcrtoafzh (Bld) [Mass/Vol]12.9 g/dL12.0-16.0[facility] CenterINR in Platelet poor plasma by Coagulation assayon 87-57-1219FKF Coag (PPP) [Relative time]1.34 {INR}[facility] CenterComment on above:DESIRED INR:2.0-3.0 CONDITIONS NOT LISTED BELOW2.5-3.5 FOR PROSTHETIC HEART VALVE REPLACEMENT2.5-3.5 RECURRENT THROMBOSISLaboratory - Chemistry and Chemistry - challengeon 43-93-4407Xvdlolclp Ql (U)NegativeNEGATIVECoshocton Regional Medical Center Glucose (U) [Mass/Vol]NegativeNEGATIVECoshocton Regional Medical CenterKetones Ql (U)NegativeNEGATIVECoshocton Regional Medical CenterpH (U)6.0 [pH]5.0-9.0 [facility]pecific [facility] (U) [Rel density]1.015 1.005-1.025[facility] CenterUrobilinogen Qn (U)0.2 {Myranda'U}/dL0.2-1.0[facility] CenterAlbumin [Mass/Vol]3.5 g/dL 3.4-5.0[facility] CenterALP [Catalytic activity/Vol]54 U/L46-116 [facility] CenterALT [Catalytic activity/Vol]17 U/L14-59 [facility] CenterAST [Catalytic activity/Vol]14 U/GLkj81-52 [facility] CenterBilirubin [Mass/Vol]0.4 mg/dL0.2-1.0[facility] CenterCalcium [Mass/Vol]9.5 mg/dL8.5-10.1FSelect Medical Specialty Hospital - YoungstownChloride [Moles/Vol]104 mmol/S27-148ZufoecrmaCoshocton Regional Medical CenterCO2 [Moles/Vol]26.0 mmol/L21.0-32.0[facility] Creatinine [Mass/Vol]1.28 mg/dLHigh0.55-1.02[facility] GFR/1.73 sq M.predicted MDRD (S/P/Bld) [Vol rate/Area]48 mL/min/{1.73_m2}Low>=60 [facility] CenterGlucose [Mass/Vol]143 mg/dLVzfk63-684DrrcyfyeqCoshocton Regional Medical CenterNatriuretic peptide B (Bld) [Mass/Vol]178.0 pg/mL<=1800.0 [facility] CenterPotassium [Moles/Vol]3.9 mmol/L3.5-5.1FSelect Medical Specialty Hospital - YoungstownProtein [Mass/Vol]6.6 g/dL6.4-8.2FSelect Medical OhioHealth Rehabilitation Hospital - Dublinodium [Moles/Vol]136 mmol/A811-592FknmyaasaCoshocton Regional Medical CenterUrea nitrogen [Mass/Vol]21.0 mg/dLHigh7.0-18.0[facility] CenterUrea nitrogen/Creatinine [Mass ratio]16.4 mg/mgCoshocton Regional Medical CenterLaboratory - Hematology and Cell countson 32-68-9048Wbdyxlbo granulocytes/100 WBC (Bld)0.3 %0.0-0.5FSelect Medical Specialty Hospital - Youngstown Laboratory - Specimen informationon 81-97-3556Rkkuffjwwi (U)CLEARCLEARFSelect Medical Specialty Hospital - YoungstownColor (U)LT. YELLOWYELLOWCoshocton Regional Medical CenterLaboratory - Urinalysison 23-76-9945Dzhbgjnun esterase Test strip Ql (U) SMALLAbnormalNEGATIVECoshocton Regional Medical CenterMucus Ql (Urine sed)NONE SEENNONE SEENCoshocton Regional Medical CenterNitrite Ql (U)NegativeNEGATIVE [facility] CenterProtein Ql (U)NegativeNEG/TRACECoshocton Regional Medical CenterLeukocytes [#/volume] corrected for nucleated erythrocytes in Blood by Automated counon 65-36-9558MUM corrected for nucl RBC Auto (Bld) [#/Vol]5.9 10 3/uL4.0-11.0[facility] Lymphocytes Auto (Bld) [#/Vol]on 53-94-3106Wusbbdmwkqd (Bld) [#/Vol]1.8 10 3/uL 1.2-3.8[facility] CenterLymphocytes/100 WBC Auto (Bld)on 00-00-3672Gsvtoivhiid/100 WBC (Bld)31.0 %20.5-60.0[facility] HospitalH Auto (RBC) [Entitic mass]on 23-21-3078SOQ (RBC) [Entitic mass]30.4 pg 26.7-34.0[facility] CenterMCHC Auto (RBC) [Mass/Vol]on 35-25-5203LTSK (RBC) [Mass/Vol]32.6 g/dL29.9-35.2FSelect Medical Specialty Hospital - YoungstownMCV Auto (RBC) [Entitic vol]on 44-56-3359GHM (RBC) [Entitic vol]93.2 fL 81.0-99.0[facility] CenterMonocytes Auto (Bld) [#/Vol]on 50-59-7301Tqfudoqxg (Bld) [#/Vol]0.7 10 3/uL0.3-0.8[facility] CenterMonocytes/100 WBC Auto (Bld)on 27-68-6857Jvixitnhx/100 WBC (Bld)12.4 %High 1.7-12.0[facility] CenterNeutrophils Auto (Bld) [#/Vol]on 47-26-0356Hxddssyjiiu (Bld) [#/Vol]2.8 10 3/uL1.4-6.5FSelect Medical Specialty Hospital - YoungstownNeutrophils/100 WBC Auto (Bld)on 53-93-1070Cvaavrosfsz/100 WBC (Bld)46.9 % 43.0-75.0[facility] CenterNo Panel Informationon 09-82-7075Unypu BacteriaTRACE #/HPFAbnormalNONE [facility]ome[facility] HospitalUrine Occult BloodTRACE-INEGATIVECoshocton Regional Medical CenterUrine Other Casts NONE SEEN #/LPFNONE [facility]ome[facility] HospitalUrine Other Crystals None Seen #/HPFNone [facility] HospitalUrine RBC5-10 #/HPF Abnormal0-2FSelect Medical Specialty Hospital - YoungstownUrine Squamous Epithelial Cells MODERATE #/LPFAbnormalNONE/RARECoshocton Regional Medical CenterUrine WBC0-2 #/HPFAbnormalNONE [facility] HospitalEosinophils # (Auto)0.4 10 3/uL0.0-0.7FSelect Medical Specialty Hospital - YoungstownImmature Granulocyte # (Auto)0.02 10 3/uL0.00-0.03[facility] CenterTroponin I High Sensitivity5.5 pg/mL4.0-51.3FSelect Medical Specialty Hospital - YoungstownComment on above:CUT-OFF POINTS HAVE BEEN ESTABLISHED BASED [...] INFORMATION.Platelet mean volume Auto (Bld) [Entitic vol]on 34-08-1297Ghuigonl mean volume (Bld) [Entitic vol]10.9 fL9.5-13.5FSelect Medical Specialty Hospital - Youngstown Platelets Auto (Bld) [#/Vol]on 19-41-9891Dtvhdetzr (Bld) [#/Vol]144 10 3/uLLow 150-450[facility] CenterProthrombin time (PT)on 31-08-7786GA Coag (PPP) [Time]13.8 sHigh9.0-11.6FSelect Medical Specialty Hospital - YoungstownRBC Auto (Bld) [#/Vol]on 58-89-3524KOJ (Bld) [#/Vol]4.25 10 6/uL4.20-5.40[facility] Hospitalerum or plasma albumin/globulin mass ratioon 05-10-2024 Albumin/Globulin [Mass ratio]1.1 {ratio}[facility] Hospitalerum or plasma anion gap determinationon 32-35-8148Oouzm gap [Moles/Vol]9.9 mmol/L [facility] CenterOffice Visiton 73-49-0311Iksvwy-up visit [id number] Zoraida Barrios 1935 F Date Provider Department Center 05/01/2024 AALIYAH HENDERSON CARD Obdulio Hos Family History Problem Relation Age of Onset Hypertension Mother Family Status - Relation Status Age at Mother Level of Service:57[address] CT OFFICE/OUTPATIENT ESTABLISHED LOW MDM 20 [facility] HospitalBasophils/100 WBC Manual cnt (Bld)on 86-55-2767Vndohisox/100 WBC (Bld)0.0 %Low0.2-2.0[facility] CenterEosinophils/100 WBC Manual cnt (Bld)on 08-01-4946Iahmhmdaiax/100 WBC (Bld) 4.0 %0.9-7.0[facility] CenterErythrocyte distribution width Auto (RBC) [Ratio]on 56-86-1731Tswkupwdvne distribution width (RBC) [Ratio]14.7 % 11.0-15.0[facility] CenterEstimated glomerular filtration rate (GFR) non- Americanon 98-97-3110FQM/1.73 sq M.predicted among non-blacks MDRD (S/P/Bld) [Vol rate/Area]42 mL/min/{1.73_m2}Low>=60[facility] CenterGlobulin Calc (S) [Mass/Vol]on 47-72-7084Hartfvyb (S) [Mass/Vol] 3.4 g/dLCoshocton Regional Medical CenterHematocrit Auto (Bld) [Volume fraction] on 52-22-0234Nytuqcyfiu (Bld) [Volume fraction]43.1 %36.0-48.0[facility] CenterHemoglobin [Mass/volume] in Bloodon 38-30-3117Kytlprzuxa (Bld) [Mass/Vol]13.8 g/dL12.0-16.0[facility] CenterINR in Platelet poor plasma by Coagulation assayon 89-45-7941UEK Coag (PPP) [Relative time]1.31 {INR}[facility] CenterComment on above:DESIRED INR:2.0-3.0 CONDITIONS NOT LISTED BELOW2.5-3.5 FOR PROSTHETIC HEART VALVE REPLACEMENT2.5-3.5 RECURRENT THROMBOSISLaboratory - Chemistry and Chemistry - challengeon 20-20-9141Bfvreyy [Mass/Vol]4.0 g/dL3.4-5.0[facility] CenterALP [Catalytic activity/Vol]63 U/C86-031BqoruugrhCoshocton Regional Medical CenterALT [Catalytic activity/Vol]18 U/M64-55KhcvjnijxCoshocton Regional Medical CenterAST [Catalytic activity/Vol]14 U/LJxq05-78QggzjwrqcCoshocton Regional Medical CenterBilirubin [Mass/Vol]0.7 mg/dL0.2-1.0[facility] CenterCalcium [Mass/Vol]9.6 mg/dL8.5-10.1FSelect Medical Specialty Hospital - YoungstownChloride [Moles/Vol]104 mmol/L 98-107[facility] CenterCO2 [Moles/Vol]29.2 mmol/L21.0-32.0 [facility] CenterCreatinine [Mass/Vol]1.21 mg/dLHigh0.55-1.02 [facility] CenterGFR/1.73 sq M.predicted MDRD (S/P/Bld) [Vol rate/Area]51 mL/min/{1.73_m2}Low>=60[facility] CenterGlucose [Mass/Vol]136 mg/xWAffw87-584OmeszrcvlCoshocton Regional Medical CenterNatriuretic peptide B (Bld) [Mass/Vol]201.0 pg/mL<=1800.0[facility] Potassium [Moles/Vol]3.9 mmol/L3.5-5.1FSelect Medical Specialty Hospital - YoungstownProtein [Mass/Vol]7.4 g/dL6.4-8.2FSelect Medical OhioHealth Rehabilitation Hospital - Dublinodium [Moles/Vol]139 mmol/C765-630HxmpcowkuCoshocton Regional Medical CenterUrea nitrogen [Mass/Vol]27.0 mg/dL High7.0-18.0[facility] CenterUrea nitrogen/Creatinine [Mass ratio]22.3 mg/mgCoshocton Regional Medical CenterLaboratory - Hematology and Cell countson 99-21-6987Itgk form neutrophils/100 WBC (Bld)4.0 %0-5FSelect Medical Specialty Hospital - YoungstownLymphocytes/100 WBC (Bld)15.0 %Low20.5-60.0[facility] CenterMonocytes/100 WBC (Bld)3.0 %1.7-12.0[facility] CenterLeukocytes [#/volume] corrected for nucleated erythrocytes in Blood by Automated counon 70-63-6356RPR corrected for nucl RBC Auto (Bld) [#/Vol]13.3 10 3/uLHigh4.0-11.0[facility] HospitalH Auto (RBC) [Entitic mass]on 09-89-1859EPA (RBC) [Entitic mass]30.1 pg26.7-34.0[facility] HospitalHC Auto (RBC) [Mass/Vol]on 34-06-0170HNGC (RBC) [Mass/Vol]32.0 g/dL29.9-35.2FUniversity Hospitals Elyria Medical CenterV Auto (RBC) [Entitic vol]on 12-40-3270IVZ (RBC) [Entitic vol]93.9 fL81.0-99.0[facility] CenterNo Panel Informationon 67-31-3016Aulkyzob I High Sensitivity6.5 pg/mL4.0-51.3FSelect Medical Specialty Hospital - YoungstownComment on above: CUT-OFF POINTS HAVE BEEN ESTABLISHED [...] DIAGNOSTIC AND CLINICAL INFORMATION.Absolute Basophils (Manual)0.00 10 3/uL0.00-0.10[facility] CenterBand Neutrophils # (Manual)0.5 10 3/uLHigh0.0-0.3 [facility] CenterEosinophils # (Manual)0.53 10 3/uL0.00-0.70 [facility] CenterLymphocytes # (Manual)1.99 10 3/uL1.20-3.80 [facility] CenterMonocytes # (Manual)0.39 10 3/uL0.30-0.80 [facility] Hospitalegmented Neutrophils # (Manual)9.84 10 3/uL High1.4-6.5FSelect Medical Specialty Hospital - YoungstownPlatelet mean volume Auto (Bld) [Entitic vol]on 33-95-7797Fqikqvua mean volume (Bld) [Entitic vol]10.4 fL 9.5-13.5FSelect Medical Specialty Hospital - YoungstownPlatelets Auto (Bld) [#/Vol]on 86-43-2340Dbxumtxcw (Bld) [#/Vol]145 10 3/aPBoa687-319LekmiarjnCoshocton Regional Medical CenterProthrombin time (PT)on 86-89-3890ER Coag (PPP) [Time]13.5 sHigh9.0-11.6 [facility] CenterRBC Auto (Bld) [#/Vol]on 14-26-9440GBS (Bld) [#/Vol]4.59 10 6/uL4.20-5.40[facility] Hospitalegmented neutrophils/100 WBC Manual cnt (Bld)on 51-36-6112Nbldcragm neutrophils/100 WBC (Bld)74.0 %[facility] Hospitalerum or plasma albumin/globulin mass ratioon 41-26-8462Ofdtmoh/Globulin [Mass ratio]1.2 {ratio}[facility] Hospitalerum or plasma anion gap determinationon 61-59-4083Ntetm gap [Moles/Vol]9.7 mmol/LFSelect Medical Specialty Hospital - YoungstownOffice Visiton 71-57-3191Vnhkzl-up [id number] Zoraida Barrios 1935 F Date Provider Department Center 03/28/2024 AALIYAH HENDERSON CARD Obdulio Hos Family History Problem Relation Age of Onset Hypertension Mother Family Status - Relation Status Age at Mother Level of Service:26255 CT OFFICE/OUTPATIENT ESTABLISHED LOW MDM 20 [facility] HospitalBasophils Auto (Bld) [#/Vol]on 12-28-2023 Basophils (Bld) [#/Vol]0.2 10 3/uL0.0-0.1FSelect Medical Specialty Hospital - Youngstown Basophils/100 WBC Auto (Bld)on 22-04-9451Lnujpbszv/100 WBC (Bld)3.4 %0.2-2.0 [facility] CenterEosinophils/100 WBC Auto (Bld)on 12-28-2023 Eosinophils/100 WBC (Bld)6.2 %0.9-7.0[facility] Erythrocyte distribution width Auto (RBC) [Ratio]on 35-06-4808Udthuxedykp distribution width (RBC) [Ratio]14.8 %11.0-15.0[facility] Estimated glomerular filtration rate (GFR) non- Americanon 12-28-2023 GFR/1.73 sq M.predicted among non-blacks MDRD (S/P/Bld) [Vol rate/Area]46 mL/min/{1.73_m2}>=60[facility] CenterHematocrit Auto (Bld) [Volume fraction]on 10-89-5702Weuckqhrkn (Bld) [Volume fraction]42.9 %36.0-48.0 [facility] CenterHemoglobin [Mass/volume] in Bloodon 12-28-2023 Hemoglobin (Bld) [Mass/Vol]13.7 g/dL12.0-16.0[facility] Laboratory - Chemistry and Chemistry - challengeon 19-83-1788Wlwcswq [Mass/Vol] 9.7 mg/dL8.5-10.1FSelect Medical Specialty Hospital - YoungstownChloride [Moles/Vol]106 mmol/L 98-107[facility] CenterCO2 [Moles/Vol]26.1 mmol/L21.0-32.0 [facility] CenterCreatinine [Mass/Vol]1.11 mg/dL0.55-1.02 [facility] CenterGFR/1.73 sq M.predicted MDRD (S/P/Bld) [Vol rate/Area]56 mL/min/{1.73_m2}>=60[facility] CenterGlucose [Mass/Vol]108 mg/bJ41-641UwslmsbccCoshocton Regional Medical CenterPotassium [Moles/Vol] 3.8 mmol/L3.5-5.1FSelect Medical OhioHealth Rehabilitation Hospital - Dublinodium [Moles/Vol]139 mmol/L 136-145[facility] CenterUrea nitrogen [Mass/Vol]22.0 mg/dL 7.0-18.0[facility] CenterUrea nitrogen/Creatinine [Mass ratio] 19.8 mg/mgCoshocton Regional Medical CenterLaboratory - Hematology and Cell countson 96-56-6228Qqjqobnq granulocytes/100 WBC (Bld)0.5 %0.0-0.5FSelect Medical Specialty Hospital - YoungstownLeukocytes [#/volume] corrected for nucleated erythrocytes in Blood by Automated counon 40-56-5394CLA corrected for nucl RBC Auto (Bld) [#/Vol]6.0 10 3/uL4.0-11.0[facility] Lymphocytes Auto (Bld) [#/Vol]on 10-40-8260Dadeqwxjmbr (Bld) [#/Vol]2.1 10 3/uL 1.2-3.8[facility] CenterLymphocytes/100 WBC Auto (Bld)on 18-75-1783Hdjnlakoqum/100 WBC (Bld)34.9 %20.5-60.0[facility] HospitalH Auto (RBC) [Entitic mass]on 13-52-1127WGE (RBC) [Entitic mass]30.0 pg 26.7-34.0[facility] CenterMCHC Auto (RBC) [Mass/Vol]on 50-79-3473MBMC (RBC) [Mass/Vol]31.9 g/dL29.9-35.2FSelect Medical Specialty Hospital - YoungstownMCV Auto (RBC) [Entitic vol]on 78-46-0591GPP (RBC) [Entitic vol]93.9 fL 81.0-99.0[facility] CenterMonocytes Auto (Bld) [#/Vol]on 28-28-3008Nkdlkrkaj (Bld) [#/Vol]0.9 10 3/uL0.3-0.8[facility] CenterMonocytes/100 WBC Auto (Bld)on 02-48-8691Mkslinmrn/100 WBC (Bld)15.1 % 1.7-12.0[facility] CenterNeutrophils Auto (Bld) [#/Vol]on 27-70-6860Gerlwbmxfdp (Bld) [#/Vol]2.4 10 3/uL1.4-6.5FSelect Medical Specialty Hospital - YoungstownNeutrophils/100 WBC Auto (Bld)on 88-58-0169Gxrdmjxncgx/100 WBC (Bld)39.9 % 43.0-75.0[facility] CenterNo Panel Informationon 12-28-2023 Eosinophils # (Auto)0.4 10 3/uL0.0-0.7FSelect Medical Specialty Hospital - YoungstownImmature Granulocyte # (Auto)0.03 10 3/uL0.00-0.03[facility] Troponin I High Sensitivity6.6 pg/mL4.0-51.3FSelect Medical Specialty Hospital - [place] Comment on above:CUT-OFF POINTS HAVE BEEN ESTABLISHED [...] INFORMATION.Platelet mean volume Auto (Bld) [Entitic vol]on 79-40-1807Qvbfveww mean volume (Bld) [Entitic vol] 10.8 fL9.5-13.5FSelect Medical Specialty Hospital - YoungstownPlatelets Auto (Bld) [#/Vol]on 45-93-2455Pacaeknij (Bld) [#/Vol]142 10 3/nL065-710GbwkaxrwhCoshocton Regional Medical CenterRBC Auto (Bld) [#/Vol]on 22-18-4849AZD (Bld) [#/Vol]4.57 10 6/uL4.20-5.40 [facility] Hospitalerum or plasma anion gap determinationon 89-94-1135Pcuxx gap [Moles/Vol]10.7 mmol/LFSelect Medical Specialty Hospital - YoungstownPROF CHEM 8 (BAS METB)on 90-14-4451Pouam gap [Moles/Vol]12.5 mmol/LNormalMercy Health Willard HospitalComment on above:Performed By: #### BMP #### [facility] [address] [address] [address] Arden MagallonCalcium [Mass/Vol]10.0 mg/dLNormal8.5-10.1[facility] Comment on above:Performed By: #### BMP #### [facility] [address] [address] [address] Arden MagallonChloride [Moles/Vol]105 mmol/LJuvjwt46-215FhuMercy Health Willard Hospital Comment on above:Performed By: #### BMP #### [facility] [address] [address] [address] Arden MagallonCO2 [Moles/Vol]29.9 mmol/AGvtvxc08.0-32.0[facility] Comment on above:Performed By: #### BMP #### [facility] [address] [address] [address] Arden MagallonCreatinine [Mass/Vol]1.26 mg/dLCritically high0.55-1.02The [facility] CenterComment on above:Performed By: #### BMP #### [facility] [address] [address] [address] Arden CarranzaGFR-AF UTLRZJIU62 mL/min/1.97w2Yjrhxtbdtb low>=60The [facility] CenterComment on above:Performed By: #### BMP #### [facility] [address] [address] [address] Arden CarranzaGFR-NON AF VWJKAWVE63 mL/min/1.03k0Vtcgbppchh low>=60The [facility] CenterComment on above:Performed By: #### BMP #### [facility] [address] [address] [address] Arden MagallonGlucose [Mass/Vol]108 mg/dLCritically vqpb94-106Dkg [facility] CenterComment on above:Performed By: #### BMP #### [facility] [address] [address] [address] Arden MagallonPotassium [Moles/Vol]3.4 mmol/LCritically low3.5-5.1[facility] Will[facility] HospitalComment on above:Performed By: #### BMP #### [facility] [address] [place] [address] Dr. Arden Parkerum [Moles/Vol]144 mmol/OLgxflo361-154Gdq [facility] Comment on above:Performed By: #### BMP #### [facility] [address] [place] [address] Dr. Arden Jones nitrogen [Mass/Vol]28.0 mg/dLCritically high7.0-18.0[facility] Will[facility] HospitalComment on above:Performed By: #### BMP #### [facility] [address] [place] [address] Dr. Arden Jones nitrogen/Creatinine [Mass ratio]22.2 mg/mgNormalThe [facility] CenterComment on above:Performed By: #### BMP #### [facility] [address] [place] [address] Dr. Arden Caraballo CINDY 3-6on 53-80-2595QP [Catalytic activity/Vol]27 U/L Wzrczr34-941OtsMercy Health Willard HospitalComment on above:Performed By: #### BMP #### [facility] [address] [place] [address] Dr. Arden Childs.MB [Mass/Vol]0.84 ng/mLNormal<=3.60The [facility] Comment on above:Performed By: #### BMP #### [facility] [address] [place] [address] Dr. Arden DawsonOP12.4 pg/mLNormal4.0-51.3TRiverside Methodist HospitalComascension providence hospital on above:Result Comment: CUT-OFF POINTS HAVE BEEN ESTABLISHED BASED ON THE FOURTH UNIVERSAL DEFINITIONS OF MYOCARDIAL INFARCTION. THE UPPER REFERENCE LIMIT (URL) OF TROPONIN, DEFINED THE 99TH PERCENTILE OF cTnI DISTRIBUTION IN A REFERENCE POPULATION, HAS BEEN CONFIRMED THE DECISION THRESHOLD FOR DE DIAGNOSIS.Performed By: #### BMP #### [facility] [address] [place] [address] Dr. Arden WHITE ADMITon 24-52-3085XK [Catalytic activity/Vol]42 U/L Pfogfj82-469EdvMercy Health Willard HospitalComment on above:Performed By: #### BMP #### [facility] [address] [place] [address] Dr. Arden Childs.MB [Mass/Vol]0.82 ng/mLNormal<=3.60[facility] Comment on above:Performed By: #### BMP #### [facility] [address] [place] [address] Dr. Arden NelsonTROP9.8 pg/mLNormal4.0-51.3The [facility] CenterComment on above:Result Comment: CUT-OFF POINTS HAVE BEEN ESTABLISHED BASED ON THE FOURTH UNIVERSAL DEFINITIONS OF MYOCARDIAL INFARCTION. THE UPPER REFERENCE LIMIT (URL) OF TROPONIN, DEFINED THE 99TH PERCENTILE OF cTnI DISTRIBUTION IN A REFERENCE POPULATION, HAS BEEN CONFIRMED THE DECISION THRESHOLD FOR DE DIAGNOSIS.Performed By: #### BMP #### [facility] [address] [place] [address] Dr. Arden BoogieO50 ng/mLNormal9-82Mercy Health Willard HospitalComment on above: Performed By: #### BMP #### [facility] [address] [place] [address] Dr. Arden Marie AUTO DIFFon 97-98-8605GXUY #0.2 103/ulCritically high0.0-0.1 The [facility] CenterComment on above:Performed By: #### CBC #### [facility] [address] [place] [address] Dr. Arden MagallonBasophils/100 WBC (Bld)2.2 %Critically high0.2-2.0Mer[facility] Willard HospitalComment on above:Performed By: #### CBC #### [facility] [address] [place] [address] Dr. Her ChangEO #1.3 103/ulCritically high0.0-0.7The [facility] CenterComment on above:Performed By: #### CBC #### [facility] [address] [place] [address] Dr. Arden Carranzaosinophils/100 WBC (Bld)16.5 %Critically high0.9-7.0The [facility] CenterComment on above:Performed By: #### CBC #### [facility] [address] [place] [address] Dr. Arden Carranzarythrocyte distribution width (RBC) [Ratio]14.3 %Odsptx32.0-15.0 The [facility] CenterComment on above:Performed By: #### CBC #### [facility] [address] [place] [address] Dr. Arden MagallonHematocrit (Bld) [Volume fraction]38.3 %Qtmccl63.0-48.0The [facility] CenterComment on above:Performed By: #### CBC #### [facility] [address] [place] [address] Dr. Arden MagallonHemoglobin (Bld) [Mass/Vol]12.6 g/gMGsztqw22.0-16.0The [facility] CenterComment on above:Performed By: #### CBC #### [facility] [address] [place] [address] Dr. Arden Mathew #0.03 10e3/ulNormal0.00-0.03The [facility] CenterComment on above:Performed By: #### CBC #### [facility] [address] [place] [address] Dr. Arden Mathew %0.4 %Normal0.0-0.5The [facility] HospitalComment on above: Performed By: #### CBC #### [facility] [address] [place] [address] Dr. Arden Alvarado #2.4 103/ulNormal1.2-3.8The [facility] CenterComment on above:Performed By: #### CBC #### [facility] [address] [place] [address] Dr. Yilan ChangLymphocytes/100 WBC (Bld)30.0 %Vxsqyb18.5-60.0The [facility] CenterComment on above:Performed By: #### CBC #### [facility] [address] [place] [address] Dr. Arden Rodríguez DIFF REQNONormalThe [facility] CenterComment on above: Performed By: #### CBC #### [facility] [address] [place] [address] Dr. Arden Torres (RBC) [Entitic mass]30.7 exJwbznw48.7-34.0The [facility] CenterComment on above:Performed By: #### CBC #### [facility] [address] [place] [address] Dr. Arden Torres (RBC) [Mass/Vol]32.9 g/mSMipewh60.9-35.2The [facility] CenterComment on above:Performed By: #### CBC #### [facility] [address] [place] [address] Dr. Arden Leonard (RBC) [Entitic vol]93.4 gTSyqldq26.0-99.0The [facility] CenterComment on above:Performed By: #### CBC #### [facility] [address] [place] [address] Dr. Arden Nelson #1.1 103/ulCritically high0.3-0.8The [facility] Comment on above:Performed By: #### CBC #### [facility] [address] [place] [address] Dr. Arden Perrinocytes/100 WBC (Bld)14.2 %Critically high1.7-12.0The [facility] CenterComment on above:Performed By: #### CBC #### [facility] [address] [place] [address] Dr. Arden Patterson #2.9 103/ulNormal1.4-6.5The [facility] CenterComment on above:Performed By: #### CBC #### [facility] [address] [place] [address] Dr. Arden MagallonNeutrophils/100 WBC (Bld)36.7 %Critically low43.0-75.0The [facility] CenterComment on above:Performed By: #### CBC #### [facility] [address] [address] Dr. Arden MagallonPlatelet mean volume (Bld) [Entitic vol]11.4 fLNormal9.5-13.5The [facility] CenterComment on above:Performed By: #### CBC #### [facility] [address] [address] [address] Arden MagallonPLT162 103/jjDhmebp423-634Myj [facility] CenterComment on above: Performed By: #### CBC #### [facility] [address] [place] [address] Dr. Arden MagallonRBC4.10 106/ulCritically low4.20-5.40The [facility] CenterComment on above:Performed By: #### CBC #### [facility] [address] [place] [address] Dr. Arden MagallonWBC8.0 103/ulNormal4.0-11.0The [facility] CenterComment on above: Performed By: #### CBC #### [facility] [address] [place] [address] Dr. Arden MagallonPROF CHEM 8 (BAS METB)on 21-33-0176Qoasl gap [Moles/Vol]11.8 mmol/LNormalThe [facility] CenterComment on above:Performed By: #### BMP #### [facility] [address] [place] [address] Dr. Arden MagallonCalcium [Mass/Vol]9.7 mg/dLNormal8.5-10.1The [facility] Comment on above:Performed By: #### BMP #### [facility] [address] [place] [address] Dr. Arden MagallonChloride [Moles/Vol]105 mmol/GOpnzrs91-121Qkc [facility] Comment on above:Performed By: #### BMP #### [facility] [address] [address] [address] Arden MagallonCO2 [Moles/Vol]25.0 mmol/QUkbufj21.0-32.0The [facility] Comment on above:Performed By: #### BMP #### [facility] [address] [address] [address] Arden MagallonCreatinine [Mass/Vol]1.07 mg/dLCritically high0.55-1.02The [facility] CenterComment on above:Performed By: #### BMP #### [facility] [address] [address] [address] Her ChangEGFR-AF AQOGPABL04 mL/min/1.99b6Cqrufqbubl low>=60The [facility] CenterComment on above:Performed By: #### BMP #### [facility] [address] [address] [address] Arden CarranzaGFR-NON AF TKHWQCQW14 mL/min/1.03f3Skuqyajtzl low>=60The [facility] CenterComment on above:Performed By: #### BMP #### [facility] [address] [address] [address] Arden MagallonGlucose [Mass/Vol]106 mg/kQCqawlk27-290Dit [facility] Comment on above:Performed By: #### BMP #### [facility] [address] [address] [address] Arden MagallonPotassium [Moles/Vol]3.8 mmol/LNormal3.5-5.1The [facility] Comment on above:Performed By: #### BMP #### [facility] [address] [address] [address] Arden MagallonSodium [Moles/Vol]138 mmol/IGitqss362-640Sqz [facility] Comment on above:Performed By: #### BMP #### [facility] [address] [address] [address] Arden MagallonUrea nitrogen [Mass/Vol]18.0 mg/dLNormal7.0-18.0The [facility] CenterComment on above:Performed By: #### BMP #### [facility] [address] [address] [address] Arden MagallonUrea nitrogen/Creatinine [Mass ratio]16.8 mg/mgNoalThOhio State University Wexner Medical CenterComment on above:Performed By: #### BMP #### [facility] [address] [place] [address] Dr. Arden KevinC AUTO DIFFon 24-51-1300PYUN #0.2 103/ulCritically high0.0-0.1 The [facility] CenterComment on above:Performed By: #### CBC #### [facility] [address] [place] [address] Dr. Arden MagallonBasophils/100 WBC (Bld)2.1 %Critically high0.2-2.0The [facility] CenterComasc[facility] on above:Performed By: #### CBC #### [facility] [address] [place] [address] Dr. Her ChangEO #1.5 103/ulCritically high0.0-0.7The [facility] CenterComment on above:Performed By: #### CBC #### [facility] [address] [place] [address] Dr. Arden Carranzaosinophils/100 WBC (Bld)16.6 %Critically high0.9-7.0The [facility] CenterComasc[facility] on above:Performed By: #### CBC #### [facility] [address] [place] [address] Dr. Arden Carranzarythrocyte distribution width (RBC) [Ratio]14.1 %Lcqsyu41.0-15.0 [facility]Com[facility] on above:Performed By: #### CBC #### [facility] [address] [place] [address] Dr. Arden MagallonHematocrit (Bld) [Volume fraction]37.7 %Jgytmu22.0-48.0[facility] on above:Performed By: #### CBC #### [facility] [address] [place] [address] Dr. Arden MagallonHemoglobin (Bld) [Mass/Vol]12.5 g/tXConihs85.0-16.0The [facility] CenterComment on above:Performed By: #### CBC #### [facility] [address] [address] [address] Arden Mathew #0.04 10e3/ulCritically high0.00-0.03The [facility] Comment on above:Performed By: #### CBC #### [facility] [address] [address] [address] Arden Mathew %0.4 %Normal0.0-0.5The [facility] CenterComment on above: Performed By: #### CBC #### [facility] [address] [place] [address] Dr. Arden Alvarado #1.8 103/ulNormal1.2-3.8The [facility] CenterComment on above:Performed By: #### CBC #### [facility] [address] [place] [address] Dr. Arden Vitalehocytes/100 WBC (Bld)19.6 %Critically low20.5-60.0The [facility] CenterComment on above:Performed By: #### CBC #### [facility] [address] [place] [address] Dr. Arden Rodríguez DIFF REQNONormalThe [facility] CenterComment on above: Performed By: #### CBC #### [facility] [address] [place] [address] Dr. Arden Torres (RBC) [Entitic mass]31.1 ldMcmvgb04.7-34.0The [facility] CenterComment on above:Performed By: #### CBC #### [facility] [address] [place] [address] Dr. Arden Torres (RBC) [Mass/Vol]33.2 g/sGOjybhy19.9-35.2The [facility] CenterComment on above:Performed By: #### CBC #### [facility] [address] [place] [address] Dr. Arden Torres (RBC) [Entitic vol]93.8 vJKtzzng73.0-99.0The [facility] CenterComment on above:Performed By: #### CBC #### [facility] [address] [place] [address] Dr. Arden Nelson #1.1 103/ulCritically high0.3-0.8The [facility] Comment on above:Performed By: #### CBC #### [facility] [address] [place] [address] Dr. Arden Perrinocytes/100 WBC (Bld)12.1 %Critically high1.7-12.0The [facility] CenterComment on above:Performed By: #### CBC #### [facility] [address] [place] [address] Dr. Arden Patterson #4.6 103/ulNormal1.4-6.5The [facility] CenterComment on above:Performed By: #### CBC #### [facility] [address] [place] [address] Dr. Arden Miguelutrophils/100 WBC (Bld)49.2 %Pfhmjz99.0-75.0The [facility] CenterComment on above:Performed By: #### CBC #### [facility] [address] [place] [address] Dr. Arden Villafana mean volume (Bld) [Entitic vol]10.8 fLNormal9.5-13.5The [facility] CenterComment on above:Performed By: #### CBC #### [facility] [address] [place] [address] Dr. Arden MagallonPLT149 103/ulCritically qfd937-782Xog [facility] CenterComment on above:Performed By: #### CBC #### [facility] [address] [place] [address] Dr. Arden MagallonRBC4.02 106/ulCritically low4.20-5.40The [facility] CenterComment on above:Performed By: #### CBC #### [facility] [address] [place] [address] Dr. Arden MagallonWBC9.3 103/ulNormal4.0-11.0[facility] on above: Performed By: #### CBC #### [facility] [address] [place] [address] Dr. Arden MagallonCovid-19 PCR ([facility])on 99-15-3423PDGD-CoV-2 (COVID-19) RNA ISABELLA+probe Ql (Unsp spec)Not detectedNormalNOT DETECTEDThe [facility] Comment on above:Result Comment: This test is not yet approved or cleared by the [place] FDA. When there are no FDA-approved or cleared tests available, and other criteria are met, FDA can make tests available under an emergency access mechanism called an Emergency Use Authorization (EUA). The EUA for this test is supported by the [place] of Health and Human Service's (HHS's) declaration [...] consistent with SARS-CoV-2.Performed By: #### CBC #### [facility] [address] [place] [address] Dr. Arden MagallonINFLUENZA A AND B AGon [id number] Hospitals Conneaut Medical CenterComascension [facility] on above:Result Comment: Negative for Flu A protein angiten. Infection due to Flu A cannot be ruled out. FluA angiten in the sample may be below the detection limit of the test.Performed By: #### CBC #### [facility] [address] [place] [address] Dr. Arden MagallonINFLUBNEGHSLakeHealth Beachwood Medical Center on above: Result Comment: Negative for Flu B protein antigen. Infection due to Flu B cannot be ruled out. FluB antigen in the sample may be below the detection limit of the test.Performed By: #### CBC #### [facility] [address] [address] [address] Arden Em AGNegativeNormalNEGATIVE SEE COMMENTThe [facility] CenterComment on above:Performed By: #### CBC #### [facility] [address] [place] [address] Dr. Arden Meeks AGNegativeNormalNEGATIVE SEE COMMENTThe [facility] CenterComment on above:Performed By: #### CBC #### [facility] [address] [place] [address] Dr. Arden MagallonINTERNAL CONTROLSWithin Normal LimitsNormalWithin Normal Limits The [facility] CenterComment on above:Performed By: #### CBC #### [facility] [address] [place] [address] Dr. Arden MagallonPROF CHEM 8 (BAS METB)on [id number] gap [Moles/Vol]10.8 mmol/LNormalThe [facility] CenterComment on above:Performed By: #### PT, DDIM #### [facility] [address] [place] [address] Dr. Arden MagallonCalcium [Mass/Vol]9.3 mg/dLNormal8.5-10.1The [facility] Comment on above:Performed By: #### PT, DDIM #### [facility] [address] [place] [address] Dr. Arden MagallonChloride [Moles/Vol]107 mmol/CLfnhre39-581Teb [facility] Comment on above:Performed By: #### PT, DDIM #### [facility] [address] [place] [address] Dr. Arden MagallonCO2 [Moles/Vol]28.0 mmol/NNabcgt98.0-32.0The [facility] Comment on above:Performed By: #### PT, DDIM #### [facility] [address] [place] [address] Dr. Arden MagallonCreatinine [Mass/Vol]0.98 mg/dLNormal0.55-1.02The [facility] CenterComment on above:Performed By: #### PT, DDIM #### [facility] [address] [place] [address] Dr. Arden CarranzaGFR-AF MALAWIAN>60Normal>=60The [facility] CenterComment on above:Performed By: #### PT, DDIM #### [facility] [address] [place] [address] Dr. Arden CarranzaGFR-NON AF GCOOWMTH47 mL/min/1.93d5Ofvwvfubpq low>=60The [facility] CenterComment on above:Performed By: #### PT, DDIM #### [facility] [address] [place] [address] Dr. Arden MagallonGlucose [Mass/Vol]111 mg/dLCritically zbhy97-698Gal [facility] CenterComment on above:Performed By: #### PT, DDIM #### [facility] [address] [place] [address] Dr. Arden MagallonPotassium [Moles/Vol]3.8 mmol/LNormal3.5-5.1[facility] Comment on above:Performed By: #### PT, DDIM #### [facility] [address] [place] [address] Dr. Arden Jefferydium [Moles/Vol]142 mmol/WWkrutq969-739SefMercy Health Willard Hospital Comment on above:Performed By: #### PT, DDIM #### [facility] [address] [place] [address] Dr. Arden MaglalonUrea nitrogen [Mass/Vol]15.0 mg/dLNormal7.0-18.0The [facility] CenterComment on above:Performed By: #### PT, DDIM #### [facility] [address] [place] [address] Dr. Arden MagallonUrea nitrogen/Creatinine [Mass ratio]15.3 mg/mgNormalThe [facility] CenterComment on above:Performed By: #### PT, DDIM #### [facility] [address] [place] [address] Dr. Arden MagallonXR CHEST 1 Von [id number] CHEST 1 VEXAMINATION: XR CHEST 1 V [...] Electronically authenticated by: HARJINDER RAMIREZ Date: 2022-09-26 10:22[facility] AUTO DIFFon [id number] #0.2 103/ulCritically high 0.0-0.1The [facility] CenterComment on above:Performed By: #### CBC #### [facility] [address] [address] [address] Arden MagallonBasophils/100 WBC (Bld)2.0 %Normal0.2-2.0The [facility] Comment on above:Performed By: #### CBC #### [facility] [address] [address] [address] Arden Valdes #0.8 103/ulCritically high0.0-0.7The [facility] CenterComment on above:Performed By: #### CBC #### [facility] [address] [address] [address] Arden Carranzaosinophils/100 WBC (Bld)9.7 %Critically high0.9-7.0The [facility] CenterComment on above:Performed By: #### CBC #### [facility] [address] [address] [address] Arden Carranzarythrocyte distribution width (RBC) [Ratio]14.2 %Peyokk36.0-15.0 The [facility] CenterComment on above:Performed By: #### CBC #### [facility] [address] [address] [address] Arden MagallonHematocrit (Bld) [Volume fraction]39.2 %Ghkmpk85.0-48.0The [facility] CenterComment on above:Performed By: #### CBC #### [facility] [address] [place] [address] Dr. Arden MagallonHemoglobin (Bld) [Mass/Vol]12.7 g/wEChvbuu37.0-16.0The [facility] CenterComment on above:Performed By: #### CBC #### [facility] [address] [place] [address] Dr. Arden Mathew #0.04 10e3/ulCritically high0.00-0.03The [facility] Comment on above:Performed By: #### CBC #### [facility] [address] [place] [address] Dr. Arden Mathew %0.5 %Normal0.0-0.5The [facility] CenterComment on above: Performed By: #### CBC #### [facility] [address] [place] [address] Dr. Arden Alvarado #1.7 103/ulNormal1.2-3.8The [facility] CenterComment on above:Performed By: #### CBC #### [facility] [address] [place] [address] Dr. Arden Vitalehocytes/100 WBC (Bld)19.2 %Critically low20.5-60.0The [facility] CenterComment on above:Performed By: #### CBC #### [facility] [address] [place] [address] Dr. Arden Rodríguez DIFF REQNONormalThe [facility] CenterComment on above: Performed By: #### CBC #### [facility] [address] [place] [address] Dr. Arden Eaton (RBC) [Entitic mass]31.1 tlQpnltv33.7-34.0The [facility] CenterComment on above:Performed By: #### CBC #### [facility] [address] [place] [address] Dr. Arden Torres (RBC) [Mass/Vol]32.4 g/eDVwylvp44.9-35.2The [facility] CenterComment on above:Performed By: #### CBC #### [facility] [address] [place] [address] Dr. Arden Leonard (RBC) [Entitic vol]96.1 rFCraywn49.0-99.0The [facility] CenterComment on above:Performed By: #### CBC #### [facility] [address] [place] [address] Dr. Arden Nelson #0.8 103/ulNormal0.3-0.8The [facility] CenterComment on above:Performed By: #### CBC #### [facility] [address] [place] [address] Dr. Arden Perrinocytes/100 WBC (Bld)9.5 %Normal1.7-12.0The [facility] Comment on above:Performed By: #### CBC #### [facility] [address] [place] [address] Dr. Arden Patterson #5.2 103/ulNormal1.4-6.5The [facility] CenterComment on above:Performed By: #### CBC #### [facility] [address] [place] [address] Dr. Arden Miguelutrophils/100 WBC (Bld)59.1 %Lnajya43.0-75.0The [facility] CenterComment on above:Performed By: #### CBC #### [facility] [address] [place] [address] Dr. Arden Salaslet mean volume (Bld) [Entitic vol]11.0 fLNormal9.5-13.5The [facility] CenterComment on above:Performed By: #### CBC #### [facility] [address] [place] [address] Dr. Arden AyersT167 103/usHcwueu087-665Iwa [facility] CenterComment on above: Performed By: #### CBC #### [facility] [address] [place] [address] Dr. Arden MagallonRBC4.08 106/ulCritically low4.20-5.40The [facility] CenterComment on above:Performed By: #### CBC #### [facility] [address] [place] [address] Dr. Arden MagallonWBC8.7 103/ulNormal4.0-11.0The [facility] CenterComment on above: Performed By: #### CBC #### [facility] [address] [place] [address] Dr. Arden MagallonPROF CHEM 8 (BAS METB)on 55-50-6191Ngqrm gap [Moles/Vol]10.4 mmol/LNormalThe [facility] CenterComment on above:Performed By: #### BMP #### [facility] [address] [place] [address] Dr. Arden MagallonCalcium [Mass/Vol]9.9 mg/dLNormal8.5-10.1The [facility] Comment on above:Performed By: #### BMP #### [facility] [address] [place] [address] Dr. Arden MagallonChloride [Moles/Vol]104 mmol/TCdxkla87-649Ecu [facility] Comment on above:Performed By: #### BMP #### [facility] [address] [place] [address] Dr. Arden MagallonCO2 [Moles/Vol]28.0 mmol/POkodrh78.0-32.0The [facility] Comment on above:Performed By: #### BMP #### [facility] [address] [place] [address] Dr. Arden MagallonCreatinine [Mass/Vol]1.20 mg/dLCritically high0.55-1.02The [facility] CenterComment on above:Performed By: #### BMP #### [facility] [address] [place] [address] Dr. Her ChangEGFR-AF AENBVKOS73 mL/min/1.50g0Zdrdyihuey low>=60The [facility] CenterComment on above:Performed By: #### BMP #### [facility] [address] [address] [address] Arden CarranzaGFR-NON AF HFCZMEYH89 mL/min/1.13e4Pdwjxedsbl low>=60The [facility] CenterComment on above:Performed By: #### BMP #### [facility] [address] [address] [address] Arden MagallonGlucose [Mass/Vol]133 mg/dLCritically ahay67-103Kgo [facility] CenterComment on above:Performed By: #### BMP #### [facility] [address] [address] [address] Arden MagallonPotassium [Moles/Vol]3.4 mmol/LCritically low3.5-5.1The [facility] CenterComment on above:Performed By: #### BMP #### [facility] [address] [place] [address] Dr. Arden MagallonSodium [Moles/Vol]139 mmol/STmffsm227-705Tfs [facility] Comment on above:Performed By: #### BMP #### [facility] [address] [address] [address] Arden MagallonUrea nitrogen [Mass/Vol]19.0 mg/dLCritically high7.0-18.0The [facility] CenterComment on above:Performed By: #### BMP #### [facility] [address] [place] [address] Dr. Arden MagallonUrea nitrogen/Creatinine [Mass ratio]15.8 mg/mgNormalThe [facility] CenterComment on above:Performed By: #### BMP #### [facility] [address] [place] [address] Dr. Arden Khalil 80-19-7536OZY5.918 uIU/mLNormal0.358-3.740The [facility] CenterComment on above:Performed By: #### BMP #### [facility] [address] [place] [address] Dr. Arden Gomez 94-73-8898Vzegxnaiuxy peptide B (Bld) [Mass/Vol]366.0 pg/mL Normal<=1,800.0The [facility] CenterComment on above:Performed By: #### BNP, CMP #### [facility] [address] [place] [address] Dr. Arden Marie AUTO DIFFon 33-73-5086MIAY #0.1 103/ulNormal0.0-0.1The [facility] Centerment on above:Performed By: #### CBC #### [facility] [address] [place] [address] Dr. Arden MagallonBasophils/100 WBC (Bld)1.7 %Normal0.2-2.0The [facility] Comment on above:Performed By: #### CBC #### [facility] [address] [place] [address] Dr. Arden Valdes #0.7 103/ulNormal0.0-0.7The [facility] on above: Performed By: #### CBC #### [facility] [address] [place] [address] Dr. Arden Carranzaosinophils/100 WBC (Bld)9.1 %Critically high0.9-7.0[facility] on above:Performed By: #### CBC #### [facility] [address] [place] [address] Dr. Arden Carranzarythrocyte distribution width (RBC) [Ratio]14.4 %Ohwgez28.0-15.0 [facility] on above:Performed By: #### CBC #### [facility] [address] [place] [address] Dr. Arden MagallonHematocrit (Bld) [Volume fraction]39.0 %Jfpkkr45.0-48.0The [facility] CenterComment on above:Performed By: #### CBC #### [facility] [address] [place] [address] Dr. Arden MagallonHemoglobin (Bld) [Mass/Vol]12.8 g/dVZgufww31.0-16.0The [facility] on above:Performed By: #### CBC #### [facility] [address] [place] [address] Dr. Arden Mathew #0.02 10e3/ulNormal0.00-0.03The [facility] CenterComment on above:Performed By: #### CBC #### [facility] [address] [place] [address] Dr. Arden Mathew %0.3 %Normal0.0-0.5The [facility]Comment on above: Performed By: #### CBC #### [facility] [address] [place] [address] Dr. Arden Alvarado #1.8 103/ulNormal1.2-3.8The [facility] CenterComment on above:Performed By: #### CBC #### [facility] [address] [place] [address] Dr. Arden Vitalehocytes/100 WBC (Bld)23.6 %Wtehru83.5-60.0The [facility] CenterComment on above:Performed By: #### CBC #### [facility] [address] [place] [address] Dr. Arden FerroUAL DIFF REQNONormalThe [facility] CenterComment on above: Performed By: #### CBC #### [facility] [address] [place] [address] Dr. Arden Torres (RBC) [Entitic mass]31.0 obQeaqyt26.7-34.0The [facility] CenterComment on above:Performed By: #### CBC #### [facility] [address] [place] [address] Dr. Arden Torres (RBC) [Mass/Vol]32.8 g/yMPtyxmz30.9-35.2The [facility] CenterComment on above:Performed By: #### CBC #### [facility] [address] [place] [address] Dr. Arden Torres (RBC) [Entitic vol]94.4 qHJgscwa02.0-99.0The [facility] CenterComment on above:Performed By: #### CBC #### [facility] [address] [place] [address] Dr. Arden Nelson #1.1 103/ulCritically high0.3-0.8The [facility] Comment on above:Performed By: #### CBC #### [facility] [address] [address] [address] Arden Perrinocytes/100 WBC (Bld)15.2 %Critically high1.7-12.0The [facility] CenterComment on above:Performed By: #### CBC #### [facility] [address] [place] [address] Dr. Arden Patterson #3.8 103/ulNormal1.4-6.5The [facility] CenterComment on above:Performed By: #### CBC #### [facility] [address] [place] [address] Dr. Arden Miguelutrophils/100 WBC (Bld)50.1 %Tzrvkh43.0-75.0The [facility] CenterComment on above:Performed By: #### CBC #### [facility] [address] [place] [address] Dr. Arden Salaslet mean volume (Bld) [Entitic vol]11.0 fLNormal9.5-13.5The [facility] CenterComment on above:Performed By: #### CBC #### [facility] [address] [place] [address] Dr. Arden MagallonPLT149 103/ulCritically woj905-443Rwy [facility] CenterComment on above:Performed By: #### CBC #### [facility] [address] [place] [address] Dr. Arden MagallonRBC4.13 106/ulCritically low4.20-5.40The [facility] CenterComment on above:Performed By: #### CBC #### [facility] [address] [place] [address] Dr. Arden MagallonWBC7.5 103/ulNormal4.0-11.0The [facility] CenterComment on above: Performed By: #### CBC #### [facility] [address] [place] [address] Dr. Arden AdanDIMERon 71-13-3250M-DIMER0.32 mg/L FEUNormal<=0.59The [facility] on above:Performed By: #### PT, DDIM #### [facility] [address] [place] [address] Dr. Arden Crespo COMMENTSSEE [facility] on above:Result Comment: Increases in D-Dimer [...] hospitalization. Performed By: #### PT, DDIM #### [facility] [address] [place] [address] Dr. Arden MagallonPROAnshu 14(COMP METB)on 10-95-1811Nvwxbod [Mass/Vol]3.5 g/dLNormal 3.4-5.0The [facility] on above:Performed By: #### BNP, CMP #### [facility] [address] [place] [address] Dr. Arden MagallonAlbumin/Globulin [Mass ratio]1.2 {ratio}NormalThe [facility] on above:Performed By: #### BNP, CMP #### [facility] [address] [place] [address] Dr. Arden Amos [Catalytic activity/Vol]57 U/KCsmvnn35-764Pod [facility] on above:Performed By: #### BNP, CMP #### [facility] [address] [place] [address] Dr. Arden Wyman [Catalytic activity/Vol]16 U/XEmfyjr28-85Jju [facility] on above:Performed By: #### BNP, CMP #### [facility] [address] [place] [address] Dr. Arden Lopez gap [Moles/Vol]9.1 mmol/LNormalThe [facility] CenterComment on above:Performed By: #### BNP, CMP #### [facility] [address] [place] [address] Dr. Arden MagallonAST [Catalytic activity/Vol]17 U/CEzfcds67-51Wml [facility] CenterComment on above:Performed By: #### BNP, CMP #### [facility] [address] [place] [address] Dr. Arden MagallonBilirubin [Mass/Vol]0.3 mg/dLNormal0.2-1.0The [facility] Comment on above:Performed By: #### BNP, CMP #### [facility] [address] [place] [address] Dr. Arden MagallonCalcium [Mass/Vol]9.6 mg/dLNormal8.5-10.1The [facility] Comment on above:Performed By: #### BNP, CMP #### [facility] [address] [place] [address] Dr. Arden MagallonChloride [Moles/Vol]106 mmol/NBciftv78-505Dhd [facility] Comment on above:Performed By: #### BNP, CMP #### [facility] [address] [place] [address] Dr. Arden MagallonCO2 [Moles/Vol]24.9 mmol/DArrawh30.0-32.0The [facility] Comment on above:Performed By: #### BNP, CMP #### [facility] [address] [place] [address] Dr. Arden MagallonCreatinine [Mass/Vol]1.06 mg/dLCritically high0.55-1.02The [facility] CenterComment on above:Performed By: #### BNP, CMP #### [facility] [address] [place] [address] Dr. Arden CarranzaGFR-AF MALAWIAN=60Normal>=60The [facility] CenterComment on above:Performed By: #### BNP, CMP #### [facility] [address] [place] [address] Dr. Arden CarranzaGFR-NON AF IOCWCRZH67 mL/min/1.70x7Dybeymlxrf low>=60The [facility] CenterComment on above:Performed By: #### BNP, CMP #### [facility] [address] [address] [address] Arden MagallonGlobulin (S) [Mass/Vol]3.0 g/dLNormalThOhio State University Wexner Medical CenterComment on above:Performed By: #### BNP, CMP #### [facility] [address] [address] [address] Arden MagallonGlucose [Mass/Vol]111 mg/dLCritically myhp05-745Zvq [facility] CenterComment on above:Performed By: #### BNP, CMP #### [facility] [address] [place] [address] Dr. Arden MagallonPotassium [Moles/Vol]4.0 mmol/LNormal3.5-5.1The [facility] Comment on above:Performed By: #### BNP, CMP #### [facility] [address] [place] [address] Dr. Arden MagallonProtein [Mass/Vol]6.5 g/dLNormal6.4-8.2The [facility] Comment on above:Performed By: #### BNP, CMP #### [facility] [address] [place] [address] Dr. Arden MagallonSodium [Moles/Vol]136 mmol/BRamjpc967-204Ayb [facility] Comment on above:Performed By: #### BNP, CMP #### [facility] [address] [place] [address] Dr. Arden MagallonUrea nitrogen [Mass/Vol]16.0 mg/dLNormal7.0-18.0The [facility] CenterComment on above:Performed By: #### BNP, CMP #### [facility] [address] [place] [address] Dr. Arden MagallonUrea nitrogen/Creatinine [Mass ratio]15.1 mg/mgNormalThe [facility] CenterComment on above:Performed By: #### BNP, CMP #### [facility] [address] [place] [address] Dr. Arden Green, HIGH SENSITIVITYon 20-50-3540BQXMEZ1.3 pg/mLNormal 4.0-51.3The [facility] CenterComment on above:Result Comment: CUT-OFF POINTS HAVE BEEN ESTABLISHED BASED ON THE FOURTH UNIVERSAL DEFINITIONS OF MYOCARDIAL INFARCTION. THE UPPER REFERENCE LIMIT (URL) OF TROPONIN, DEFINED THE 99TH PERCENTILE OF cTnI DISTRIBUTION IN A REFERENCE POPULATION, HAS BEEN CONFIRMED THE DECISION THRESHOLD FOR DE DIAGNOSIS.Performed By: #### BNP, CMP #### [facility] [address] [place] [address] Dr. Arden MagallonXR CHEST 1 Von [id number] CHEST 1 VEXAMINATION: XR CHEST 1 V, [...] Electronically authenticated by: BERNIE NAVARRO Date: 2022-09-18 16:[address] [place] [address] AUTO DIFFon [id number] #0.1 103/ulNormal0.0-0.1The [facility] CenterComment on above:Performed By: #### BMP #### [facility] [address] [place] [address] Dr. Arden MagallonBasophils/100 WBC (Bld)2.3 %Critically high0.2-2.0The [facility] CenterComment on above:Performed By: #### BMP #### [facility] [address] [place] [address] Dr. Arden CarranzaO #0.5 103/ulNormal0.0-0.7The [facility] CenterComment on above: Performed By: #### BMP #### [facility] [address] [place] [address] Dr. Arden Carranzaosinophils/100 WBC (Bld)8.0 %Critically high0.9-7.0The [facility] CenterComment on above:Performed By: #### BMP #### [facility] [address] [place] [address] Dr. Arden Carranzarythrocyte distribution width (RBC) [Ratio]13.8 %Ppsdfu72.0-15.0 The [facility] CenterComment on above:Performed By: #### BMP #### [facility] [address] [place] [address] Dr. Arden MagallonHematocrit (Bld) [Volume fraction]40.5 %Yqajzp84.0-48.0The [facility] CenterComment on above:Performed By: #### BMP #### [facility] [address] [place] [address] Dr. Arden MagallonHemoglobin (Bld) [Mass/Vol]13.5 g/bQNivumc14.0-16.0The [facility] CenterComment on above:Performed By: #### BMP #### [facility] [address] [place] [address] Dr. Arden Mathew #0.01 10e3/ulNormal0.00-0.03The [facility] CenterComment on above:Performed By: #### BMP #### [facility] [address] [place] [address] Dr. Arden Mathew %0.2 %Normal0.0-0.5The [facility] CenterComment on above: Performed By: #### BMP #### [facility] [address] [place] [address] Dr. Arden AlcantaraMPH #1.5 103/ulNormal1.2-3.8The [facility] CenterComment on above:Performed By: #### BMP #### [facility] [address] [place] [address] Dr. Arden Alcantaramphocytes/100 WBC (Bld)24.9 %Qjplpk43.5-60.0The [facility] CenterComment on above:Performed By: #### BMP #### [facility] [address] [place] [address] Dr. Arden Rodríguez DIFF REQNONormalThe [facility] CenterComment on above: Performed By: #### BMP #### [facility] [address] [place] [address] Dr. Arden Torres (RBC) [Entitic mass]31.1 cqFbifwe28.7-34.0The [facility] CenterComment on above:Performed By: #### BMP #### [facility] [address] [place] [address] Dr. Arden Torres (RBC) [Mass/Vol]33.3 g/aOXrwbng33.9-35.2The [facility] CenterComment on above:Performed By: #### BMP #### [facility] [address] [place] [address] Dr. Arden Torres (RBC) [Entitic vol]93.3 yIMbtart25.0-99.0The [facility] CenterComment on above:Performed By: #### BMP #### [facility] [address] [place] [address] Dr. Arden Nelson #1.0 103/ulCritically high0.3-0.8The [facility] Comment on above:Performed By: #### BMP #### [facility] [address] [place] [address] Dr. Arden Perrinocytes/100 WBC (Bld)16.0 %Critically high1.7-12.0The [facility] CenterComment on above:Performed By: #### BMP #### [facility] [address] [place] [address] Dr. Arden Patterson #2.9 103/ulNormal1.4-6.5The [facility] CenterComment on above:Performed By: #### BMP #### [facility] [address] [address] [address] Arden MagallonNeutrophils/100 WBC (Bld)48.6 %Sgqzys02.0-75.0The [facility] CenterComment on above:Performed By: #### BMP #### [facility] [address] [place] [address] Dr. Arden MagallonPlatelet mean volume (Bld) [Entitic vol]10.8 fLNormal9.5-13.5The [facility] CenterComment on above:Performed By: #### BMP #### [facility] [address] [place] [address] Dr. Arden MagallonPLT138 103/ulCritically tzc584-439Ujp [facility] CenterComment on above:Performed By: #### BMP #### [facility] [address] [place] [address] Dr. Arden MagallonRBC4.34 106/ulNormal4.20-5.40The [facility] CenterComment on above:Performed By: #### BMP #### [facility] [address] [place] [address] Dr. Arden MagallonWBC6.0 103/ulNormal4.0-11.0The [facility] CenterComment on above: Performed By: #### BMP #### [facility] [address] [place] [address] Dr. Arden MagallonPROF CHEM 8 (BAS METB)on 40-89-6706Ibeyl gap [Moles/Vol]9.0 mmol/LNormalThe [facility] CenterComment on above:Performed By: #### PT, DDIM #### [facility] [address] [place] [address] Dr. Arden MagallonCalcium [Mass/Vol]9.6 mg/dLNormal8.5-10.1The [facility] Comment on above:Performed By: #### PT, DDIM #### [facility] [address] [place] [address] Dr. Arden MagallonChloride [Moles/Vol]105 mmol/ZTcuast21-589Gbq [facility] Comment on above:Performed By: #### PT, DDIM #### [facility] [address] [address] [address] Arden MagallonCO2 [Moles/Vol]29.1 mmol/HTfcwsb94.0-32.0The [facility] Comment on above:Performed By: #### PT, DDIM #### [facility] [address] [address] [address] Arden MagallonCreatinine [Mass/Vol]1.00 mg/dLNormal0.55-1.02[facility] HospitalComment on above:Performed By: #### PT, DDIM #### [facility] [address] [address] [address] Arden CarranzaGFR-AF MALAWIAN>60Normal>=60The [facility] CenterComment on above:Performed By: #### PT, DDIM #### [facility] [address] [place] [address] Dr. Arden CarranzaGFR-NON AF JPGAYLVT64 mL/min/1.15j4Wykkqgymrf low>=60The [facility] CenterComment on above:Performed By: #### PT, DDIM #### [facility] [address] [address] [address] Arden MagallonGlucose [Mass/Vol]116 mg/dLCritically agwr86-645Dfk [facility] CenterComment on above:Performed By: #### PT, DDIM #### [facility] [address] [address] [address] Arden MagallonPotassium [Moles/Vol]4.1 mmol/LNormal3.5-5.1The [facility] Comment on above:Performed By: #### PT, DDIM #### [facility] [address] [address] [address] Arden MagallonSodium [Moles/Vol]139 mmol/LOvocwh307-803Csx [facility] Comment on above:Performed By: #### PT, DDIM #### [facility] [address] [address] [address] Arden MagallonUrea nitrogen [Mass/Vol]15.0 mg/dLNormal7.0-18.0The [facility] CenterComment on above:Performed By: #### PT, DDIM #### [facility] [address] [place] [address] Dr. Arden MagallonUrea nitrogen/Creatinine [Mass ratio]15.0 mg/mgNormalThe [facility] CenterComment on above:Performed By: #### PT, DDIM #### [facility] [address] [place] [address] Dr. Arden KevinC AUTO DIFFon 13-89-1278XAWR #0.2 103/ulCritically high0.0-0.1 [facility] HospitalComment on above:Performed By: #### BNP, CMP #### [facility] [address] [place] [address] Dr. Arden MagallonBasophils/100 WBC (Bld)2.7 %Critically high0.2-2.0The [facility] CenterComment on above:Performed By: #### BNP, CMP #### [facility] [address] [place] [address] Dr. Arden Valdes #0.5 103/ulNormal0.0-0.7The [facility] CenterComment on above: Performed By: #### BNP, CMP #### [facility] [address] [place] [address] Dr. Arden Carranzaosinophils/100 WBC (Bld)6.7 %Normal0.9-7.0[facility] Comment on above:Performed By: #### BNP, CMP #### [facility] [address] [place] [address] Dr. Arden Carranzarythrocyte distribution width (RBC) [Ratio]14.3 %Hvbeoo60.0-15.0 [facility] HospitalComment on above:Performed By: #### BNP, CMP #### [facility] [address] [place] [address] Dr. Arden MagallonHematocrit (Bld) [Volume fraction]43.1 %Mugzgr89.0-48.0The [facility] CenterComment on above:Performed By: #### BNP, CMP #### [facility] [address] [place] [address] Dr. Arden MagallonHemoglobin (Bld) [Mass/Vol]14.5 g/gPLcojiv62.0-16.0The [facility] CenterComment on above:Performed By: #### BNP, CMP #### [facility] [address] [place] [address] Dr. Arden Mathew #0.02 10e3/ulNormal0.00-0.03The [facility] CenterComment on above:Performed By: #### BNP, CMP #### [facility] [address] [place] [address] Dr. Arden Mathew %0.3 %Normal0.0-0.5The [facility] CenterComment on above: Performed By: #### BNP, CMP #### [facility] [address] [place] [address] Dr. Arden Alvarado #3.1 103/ulNormal1.2-3.8The [facility] CenterComment on above:Performed By: #### BNP, CMP #### [facility] [address] [place] [address] Dr. Arden Vitalehocytes/100 WBC (Bld)41.0 %Yyslej85.5-60.0The [facility] on above:Performed By: #### BNP, CMP #### [facility] [address] [place] [address] Dr. Arden FerroUAL DIFF REQNONormalThe [facility] CenterComment on above: Performed By: #### BNP, CMP #### [facility] [address] [place] [address] Dr. Arden Eaton (RBC) [Entitic mass]31.6 cvBbxpbn91.7-34.0The [facility] CenterComment on above:Performed By: #### BNP, CMP #### [facility] [address] [place] [address] Dr. Arden Torres (RBC) [Mass/Vol]33.6 g/lHBrgphz77.9-35.2The [facility] CenterComment on above:Performed By: #### BNP, CMP #### [facility] [address] [place] [address] Dr. Arden Leonard (RBC) [Entitic vol]93.9 xCDhxifg67.0-99.0The [facility] CenterComment on above:Performed By: #### BNP, CMP #### [facility] [address] [place] [address] Dr. Arden Nelson #0.8 103/ulNormal0.3-0.8The [facility] CenterComment on above:Performed By: #### BNP, CMP #### [facility] [address] [place] [address] Dr. Arden Perrinocytes/100 WBC (Bld)10.9 %Normal1.7-12.0The [facility] Comment on above:Performed By: #### BNP, CMP #### [facility] [address] [place] [address] Dr. Arden Patterson #2.9 103/ulNormal1.4-6.5The [facility] CenterComment on above:Performed By: #### BNP, CMP #### [facility] [address] [place] [address] Dr. Arden Martinsophils/100 WBC (Bld)38.4 %Critically low43.0-75.0The [facility] CenterComment on above:Performed By: #### BNP, CMP #### [facility] [address] [place] [address] Dr. Arden Salaslet mean volume (Bld) [Entitic vol]10.8 fLNormal9.5-13.5The [facility] CenterComment on above:Performed By: #### BNP, CMP #### [facility] [address] [place] [address] Dr. Arden AyersT165 103/rpThirvx079-864Dem [facility] CenterComment on above: Performed By: #### BNP, CMP #### [facility] [address] [place] [address] Dr. Arden MagallonRBC4.59 106/ulNormal4.20-5.40The [facility] on above:Performed By: #### BNP, CMP #### [facility] [address] [place] [address] Dr. Arden MagallonWBC7.5 103/ulNormal4.0-11.0The [facility] on above: Performed By: #### BNP, CMP #### [facility] [address] [place] [address] Dr. Arden MagallonPROF 14(COMP METB)on [id number] [Mass/Vol]3.9 g/dLNormal 3.4-5.0The [facility] on above:Performed By: #### PT, DDIM #### [facility] [address] [place] [address] Dr. Arden MagallonAlbumin/Globulin [Mass ratio]1.2 {ratio}NormalThe [facility] CenterCom[facility] on above:Performed By: #### PT, DDIM #### [facility] [address] [place] [address] Dr. Arden Amos [Catalytic activity/Vol]69 U/FNdxjaz55-844Cyt [facility] on above:Performed By: #### PT, DDIM #### [facility] [address] [place] [address] Dr. Arden Wyman [Catalytic activity/Vol]16 U/GMgxlpa86-89Gek [facility] on above:Performed By: #### PT, DDIM #### [facility] [address] [place] [address] Dr. Arden Lopez gap [Moles/Vol]8.6 mmol/LNormalThe [facility] CenterCom[facility] on above:Performed By: #### PT, DDIM #### [facility] [address] [place] [address] Dr. Arden Cabrera [Catalytic activity/Vol]14 U/LCritically wsv84-10Foh [facility] on above:Performed By: #### PT, DDIM #### [facility] [address] [address] [address] Arden MagallonBilirubin [Mass/Vol]0.3 mg/dLNormal0.2-1.0The [facility] Comment on above:Performed By: #### PT, DDIM #### [facility] [address] [address] [address] Arden MagallonCalcium [Mass/Vol]9.5 mg/dLNormal8.5-10.1The [facility] Comment on above:Performed By: #### PT, DDIM #### [facility] [address] [address] [address] Arden MagallonChloride [Moles/Vol]104 mmol/RBsmsah84-470Dka [facility] Comment on above:Performed By: #### PT, DDIM #### [facility] [address] [place] [address] Dr. Arden MagallonCO2 [Moles/Vol]29.2 mmol/VEvljva67.0-32.0The [facility] Comment on above:Performed By: #### PT, DDIM #### [facility] [address] [address] [address] Arden MagallonCreatinine [Mass/Vol]1.25 mg/dLCritically high0.55-1.02The [facility] CenterComment on above:Performed By: #### PT, DDIM #### [facility] [address] [address] [address] Arden CarranzaGFR-AF YOCZPGHC74 mL/min/1.13w8Molhisjmvn low>=60The [facility] CenterComment on above:Performed By: #### PT, DDIM #### [facility] [address] [address] [address] Arden CarranzaGFR-NON AF HEZVZFMA41 mL/min/1.43v3Yrjwncozsp low>=60The [facility] CenterComment on above:Performed By: #### PT, DDIM #### [facility] [address] [address] [address] Arden MagallonGlobulin (S) [Mass/Vol]3.3 g/dLNoACMC Healthcare System GlenbeighComment on above:Performed By: #### PT, DDIM #### [facility] [address] [place] [address] Dr. Arden MagallonGlucose [Mass/Vol]119 mg/dLCritically ckms74-815Qez [facility] CenterComment on above:Performed By: #### PT, DDIM #### [facility] [address] [place] [address] Dr. Arden MagallonPotassium [Moles/Vol]3.8 mmol/LNormal3.5-5.1The [facility] Comment on above:Performed By: #### PT, DDIM #### [facility] [address] [place] [address] Dr. Arden MagallonProtein [Mass/Vol]7.2 g/dLNormal6.4-8.2The [facility] Comment on above:Performed By: #### PT, DDIM #### [facility] [address] [place] [address] Dr. Arden MagallonSodium [Moles/Vol]138 mmol/XSpbzqx926-812Gye [facility] Comment on above:Performed By: #### PT, DDIM #### [facility] [address] [place] [address] Dr. Arden MagallonUrea nitrogen [Mass/Vol]24.0 mg/dLCritically high7.0-18.0The [facility] CenterComment on above:Performed By: #### PT, DDIM #### [facility] [address] [place] [address] Dr. Arden Jones nitrogen/Creatinine [Mass ratio]19.2 mg/mgNoACMC Healthcare System GlenbeighComment on above:Performed By: #### PT, DDIM #### [facility] [address] [place] [address] Dr. Arden Gomez [id number] peptide B (Bld) [Mass/Vol]427.0 pg/mL Normal<=1,800.0The [facility] CenterComment on above:Performed By: #### PT, DDIM #### [facility] [address] [address] [address] Arden Caraballo CINDY ADMITon [id number] [Catalytic activity/Vol]56 U/L Jitmgp45-475PbqDayton Osteopathic Hospitalment on above:Performed By: #### PT, DDIM #### [facility] [address] [address] [address] Arden Childs.MB [Mass/Vol]1.41 ng/mLNormal<=3.60The [facility] Comment on above:Performed By: #### PT, DDIM #### [facility] [address] [place] [address] Dr. Arden MagallonHSTROP9.0 pg/mLNormal4.0-51.3The [facility] on above:Result Comment: CUT-OFF POINTS HAVE BEEN ESTABLISHED BASED ON THE FOURTH UNIVERSAL DEFINITIONS OF MYOCARDIAL INFARCTION. THE UPPER REFERENCE LIMIT (URL) OF TROPONIN, DEFINED THE 99TH PERCENTILE OF cTnI DISTRIBUTION IN A REFERENCE POPULATION, HAS BEEN CONFIRMED THE DECISION THRESHOLD FOR DE DIAGNOSIS.Performed By: #### PT, DDIM #### [facility] [address] [place] [address] Dr. Arden Chua99 ng/mLCritically high9-82The [facility] on above:Performed By: #### PT, DDIM #### [facility] [address] [place] [address] Dr. Arden Marie AUTO DIFFon [id number] #0.2 103/ulCritically high0.0-0.1 The [facility] CenterComment on above:Performed By: #### CBC #### [facility] [address] [place] [address] Dr. Arden MagallonBasophils/100 WBC (Bld)2.2 %Critically high0.2-2.0The [facility] Centerment on above:Performed By: #### CBC #### [facility] [address] [place] [address] Dr. Arden Valdes #0.4 103/ulNormal0.0-0.7The [facility] HospitalComment on above: Performed By: #### CBC #### [facility] [address] [place] [address] Dr. Arden Carranzaosinophils/100 WBC (Bld)5.1 %Normal0.9-7.0The [facility] on above:Performed By: #### CBC #### [facility] [address] [place] [address] Dr. Arden Carranzarythrocyte distribution width (RBC) [Ratio]14.1 %Vakohs14.0-15.0 The [facility] CenterComment on above:Performed By: #### CBC #### [facility] [address] [place] [address] Dr. Arden MagallonHematocrit (Bld) [Volume fraction]41.2 %Rpmyqr32.0-48.0The [facility] CenterComment on above:Performed By: #### CBC #### [facility] [address] [place] [address] Dr. Arden MagallonHemoglobin (Bld) [Mass/Vol]13.6 g/qJZhmxcb35.0-16.0The [facility] CenterComment on above:Performed By: #### CBC #### [facility] [address] [place] [address] Dr. Arden Mathew #0.03 10e3/ulNormal0.00-0.03The [facility] CenterComment on above:Performed By: #### CBC #### [facility] [address] [place] [address] Dr. Arden Mathew %0.4 %Normal0.0-0.5The [facility] CenterComment on above: Performed By: #### CBC #### [facility] [address] [place] [address] Dr. Arden VitaleH #2.4 103/ulNormal1.2-3.8The [facility] CenterComment on above:Performed By: #### CBC #### [facility] [address] [place] [address] Dr. Arden Alcantaramphocytes/100 WBC (Bld)30.1 %Ryapcg23.5-60.0The [facility] CenterComment on above:Performed By: #### CBC #### [facility] [address] [place] [address] Dr. Arden Rodríguez DIFF REQNONormalThe [facility] CenterComment on above: Performed By: #### CBC #### [facility] [address] [place] [address] Dr. Arden Torres (RBC) [Entitic mass]30.8 xiHiycff84.7-34.0The [facility] HospitalComment on above:Performed By: #### CBC #### [facility] [address] [place] [address] Dr. Arden Torres (RBC) [Mass/Vol]33.0 g/yFXeedqk36.9-35.2The [facility] CenterComment on above:Performed By: #### CBC #### [facility] [address] [place] [address] Dr. Arden Leonard (RBC) [Entitic vol]93.4 qJCpulde37.0-99.0The [facility] CenterComment on above:Performed By: #### CBC #### [facility] [address] [place] [address] Dr. Arden Nelson #0.8 103/ulNormal0.3-0.8The [facility] CenterComment on above:Performed By: #### CBC #### [facility] [address] [place] [address] Dr. Arden Perrinocytes/100 WBC (Bld)9.8 %Normal1.7-12.0The [facility] Comment on above:Performed By: #### CBC #### [facility] [address] [place] [address] Dr. Arden Patterson #4.2 103/ulNormal1.4-6.5The [facility] CenterComment on above:Performed By: #### CBC #### [facility] [address] [place] [address] Dr. Yilan ChangNeutrophils/100 WBC (Bld)52.4 %Xmzksw42.0-75.0The [facility] CenterComment on above:Performed By: #### CBC #### [facility] [address] [place] [address] Dr. Arden Villafana mean volume (Bld) [Entitic vol]10.7 fLNormal9.5-13.5The [facility] CenterComment on above:Performed By: #### CBC #### [facility] [address] [place] [address] Dr. Arden MagallonPLT154 103/ziNnyilz814-208Ltx [facility] CenterCom[facility] on above: Performed By: #### CBC #### [facility] [address] [place] [address] Dr. Arden MagallonRBC4.41 106/ulNormal4.20-5.40The [facility] on above:Performed By: #### CBC #### [facility] [address] [place] [address] Dr. Arden MagallonWBC8.1 103/ulNormal4.0-11.0The [facility] CenterComasc[facility] on above: Performed By: #### CBC #### [facility] [address] [place] [address] Dr. Arden Madsen 14(COMP METB)on [id number] [Mass/Vol]3.7 g/dLNormal 3.4-5.0The [facility] CenterComment on above:Performed By: #### PT, DDIM #### [facility] [address] [place] [address] Dr. Arden MagallonAlbumin/Globulin [Mass ratio]1.2 {ratio}NormalThe [facility] on above:Performed By: #### PT, DDIM #### [facility] [address] [place] [address] Dr. Arden PughP [Catalytic activity/Vol]57 U/TZvyvpy53-746Sub [facility] on above:Performed By: #### PT, DDIM #### [facility] [address] [address] [address] Arden PughT [Catalytic activity/Vol]17 U/SCafclq66-27Dbq [facility] CenterComment on above:Performed By: #### PT, DDIM #### [facility] [address] [place] [address] Dr. Arden MagallonAnion gap [Moles/Vol]9.1 mmol/LNormalThe [facility] CenterComment on above:Performed By: #### PT, DDIM #### [facility] [address] [place] [address] Dr. Arden MagallonAST [Catalytic activity/Vol]12 U/LCritically igz27-13Ojo [facility] CenterComment on above:Performed By: #### PT, DDIM #### [facility] [address] [place] [address] Dr. Arden MagallonBilirubin [Mass/Vol]0.6 mg/dLNormal0.2-1.0The [facility] Comment on above:Performed By: #### PT, DDIM #### [facility] [address] [place] [address] Dr. Arden MagallonCalcium [Mass/Vol]9.5 mg/dLNormal8.5-10.1The [facility] Comment on above:Performed By: #### PT, DDIM #### [facility] [address] [place] [address] Dr. Arden MagallonChloride [Moles/Vol]105 mmol/DQraifh86-485Pwg [facility] Comment on above:Performed By: #### PT, DDIM #### [facility] [address] [place] [address] Dr. Arden MagallonCO2 [Moles/Vol]27.9 mmol/CUsgjhq43.0-32.0The [facility] Comment on above:Performed By: #### PT, DDIM #### [facility] [address] [place] [address] Dr. Arden MagallonCreatinine [Mass/Vol]0.97 mg/dLNormal0.55-1.02The [facility] CenterComment on above:Performed By: #### PT, DDIM #### [facility] [address] [address] [address] Arden CarranzaGFR-AF MALAWIAN>60Normal>=60The [facility] CenterComment on above:Performed By: #### PT, DDIM #### [facility] [address] [address] [address] Arden CarranzaGFR-NON AF ZFSDUEYL59 mL/min/1.22e6Ziadszymjd low>=60The [facility] CenterComment on above:Performed By: #### PT, DDIM #### [facility] [address] [address] [address] Arden MagallonGlobulin (S) [Mass/Vol]3.0 g/dLNormalThe [facility] CenterComment on above:Performed By: #### PT, DDIM #### [facility] [address] [address] [address] Arden MagallonGlucose [Mass/Vol]105 mg/oYDeregg10-470Ldw [facility] Comment on above:Performed By: #### PT, DDIM #### [facility] [address] [address] [address] Arden MagallonPotassium [Moles/Vol]4.0 mmol/LNormal3.5-5.1The [facility] Comment on above:Performed By: #### PT, DDIM #### [facility] [address] [address] [address] Arden MagallonProtein [Mass/Vol]6.7 g/dLNormal6.4-8.2The [facility] Comment on above:Performed By: #### PT, DDIM #### [facility] [address] [address] [address] Arden MagallonSodium [Moles/Vol]138 mmol/KIssvdv200-086Arr [facility] Comment on above:Performed By: #### PT, DDIM #### [facility] [address] [address] [address] Arden MagallonUrea nitrogen [Mass/Vol]18.0 mg/dLNormal7.0-18.0The [facility] HospitalComment on above:Performed By: #### PT, DDIM #### [facility] [address] [address] [address] Arden Jones nitrogen/Creatinine [Mass ratio]18.6 mg/mgNoACMC Healthcare System GlenbeighComascension providence hospital on above:Performed By: #### PT, DDIM #### [facility] [address] [place] [address] Dr. Arden MagallonPROTIMEon [id number] Coag (PPP) [Relative time]1.49 {INR} NormalThe [facility] on above:Performed By: #### BNP, CMP #### [facility] [address] [place] [address] Dr. Arden Cortez GUIDELINESSEE [facility] HospitalCom[facility] on above:Result Comment: DESIRED INR: 2.0 - 3.0 CONDITIONS NOT LISTED BELOW 2.5 - 3.5 FOR PROSTHETIC HEART VALVE REPLACEMENT 2.5 - 3.5 RECURRENT THROMBOSIS Performed By: #### BNP, CMP #### [facility] [address] [place] [address] Dr. Arden MagallonPT Coag (PPP) [Time]15.7 sCritically high9.0-11.6The [facility] on above:Performed By: #### BNP, CMP #### [facility] [address] [place] [address] Dr. Arden May [id number] Coag (Bld) [Time]30.2 pGzaopc03.3-36.2[facility] on above:Performed By: #### BNP, CMP #### [facility] [address] [place] [address] Dr. Arden Green, HIGH SENSITIVITYon 75-10-5625JPDPHX5.3 pg/mLNormal 4.0-51.3The [facility] on above:Result Comment: CUT-OFF POINTS HAVE BEEN ESTABLISHED BASED ON THE FOURTH UNIVERSAL DEFINITIONS OF MYOCARDIAL INFARCTION. THE UPPER REFERENCE LIMIT (URL) OF TROPONIN, DEFINED THE 99TH PERCENTILE OF cTnI DISTRIBUTION IN A REFERENCE POPULATION, HAS BEEN CONFIRMED THE DECISION THRESHOLD FOR DE DIAGNOSIS.Performed By: #### BMP #### [facility] [address] [place] [address] Dr. Arden MagallonXR CHEST 1 Von [id number] CHEST 1 VEXAM: XR CHEST 1 V [...] Electronically authenticated by: MOMO RICO Date: 2022-08-26 12:29[facility] HospitalBNAurora [facility] [id number] peptide B (Bld) [Mass/Vol]414.0 pg/mLNormal<=1,800.0The [facility] CenterComment on above:Performed By: #### BMP #### [facility] [address] [place] [address] Dr. Arden KevinC AUTO DIFFon [id number] #0.2 103/ulCritically high0.0-0.1 The [facility] CenterComment on above:Performed By: #### BMP #### [facility] [address] [place] [address] Dr. Arden MagallonBasophils/100 WBC (Bld)2.8 %Critically high0.2-2.0The [facility] CenterComment on above:Performed By: #### BMP #### [facility] [address] [place] [address] Dr. Arden Valdes #0.5 103/ulNormal0.0-0.7The [facility] CenterComment on above: Performed By: #### BMP #### [facility] [address] [place] [address] Dr. Arden Carranzaosinophils/100 WBC (Bld)7.2 %Critically high0.9-7.0The [facility] Centerment on above:Performed By: #### BMP #### [facility] [address] [place] [address] Dr. Arden Carranzarythrocyte distribution width (RBC) [Ratio]14.1 %Uehorv99.0-15.0 The [facility] CenterComment on above:Performed By: #### BMP #### [facility] [address] [place] [address] Dr. Arden MagallonHematocrit (Bld) [Volume fraction]41.2 %Jqgsjw61.0-48.0The [facility] on above:Performed By: #### BMP #### [facility] [address] [place] [address] Dr. Arden MagallonHemoglobin (Bld) [Mass/Vol]13.5 g/aZYmgtpz54.0-16.0The [facility] Centerment on above:Performed By: #### BMP #### [facility] [address] [place] [address] Dr. Arden MagallonIG #0.01 10e3/ulNormal0.00-0.03The [facility] on above:Performed By: #### BMP #### [facility] [address] [place] [address] Dr. Arden MagallonIG %0.1 %Normal0.0-0.5The [facility] on above: Performed By: #### BMP #### [facility] [address] [place] [address] Dr. Arden AlcantaraMPH #2.7 103/ulNormal1.2-3.8The [facility] on above:Performed By: #### BMP #### [facility] [address] [place] [address] Dr. Arden Alcantaramphocytes/100 WBC (Bld)37.7 %Jrlkcr73.5-60.0The [facility] CenterComment on above:Performed By: #### BMP #### [facility] [address] [place] [address] Dr. Arden Rodríguez DIFF REQNONormalThe [facility] CenterComment on above: Performed By: #### BMP #### [facility] [address] [place] [address] Dr. Arden Torres (RBC) [Entitic mass]31.2 aoMelwiw64.7-34.0The [facility] CenterComment on above:Performed By: #### BMP #### [facility] [address] [place] [address] Dr. Arden Torres (RBC) [Mass/Vol]32.8 g/sJMhnini46.9-35.2The [facility] CenterComment on above:Performed By: #### BMP #### [facility] [address] [place] [address] Dr. Arden Torres (RBC) [Entitic vol]95.2 cETxbapq04.0-99.0The [facility] CenterComment on above:Performed By: #### BMP #### [facility] [address] [place] [address] Dr. Arden Nelson #0.6 103/ulNormal0.3-0.8The [facility] CenterComment on above:Performed By: #### BMP #### [facility] [facility] [address] [place] [address] Dr. Arden Perrinocytes/100 WBC (Bld)8.2 %Normal1.7-12.0The [facility] Comment on above:Performed By: #### BMP #### [facility] [address] [place] [address] Dr. Arden Patterson #3.1 103/ulNormal1.4-6.5The [facility] CenterComment on above:Performed By: #### BMP #### [facility] [address] [place] [address] Dr. Arden Miguelutrophils/100 WBC (Bld)44.0 %Vzlpbc67.0-75.0The [facility] HospitalComment on above:Performed By: #### BMP #### [facility] [address] [place] [address] Dr. Arden Salaslet mean volume (Bld) [Entitic vol]11.5 fLNormal9.5-13.5The [facility] on above:Performed By: #### BMP #### [facility] [address] [place] [address] Dr. Arden MagallonPLT160 103/tpGrgvlk502-187Pvj [facility] on above: Performed By: #### BMP #### [facility] [address] [place] [address] Dr. Arden MagallonRBC4.33 106/ulNormal4.20-5.40The [facility] on above:Performed By: #### BMP #### [facility] [address] [place] [address] Dr. Arden MagallonWBC7.1 103/ulNormal4.0-11.0The [facility] on above: Performed By: #### BMP #### [facility] [address] [place] [address] Dr. Arden Crespoon 05-50-6651K-DIMER0.36 mg/L FEUNormal<=0.59[facility] on above:Performed By: #### PT, DDIM #### [facility] [address] [place] [address] Dr. Arden Crespo COMMENTSSEE [facility] on above:Result Comment: Increases in D-Dimer [...] hospitalization. Performed By: #### PT, DDIM #### [facility] [address] [address] [address] Arden MagallonPROF 14(COMP METB)on [id number] [Mass/Vol]3.7 g/dLNormal 3.4-5.0The [facility] CenterComment on above:Performed By: #### CBC #### [facility] [address] [place] [address] Dr. Arden MagallonAlbumin/Globulin [Mass ratio]1.1 {ratio}NormalThe [facility] CenterComment on above:Performed By: #### CBC #### [facility] [address] [place] [address] Dr. Arden PughP [Catalytic activity/Vol]65 U/XKzsuzd38-278Way [facility] CenterComment on above:Performed By: #### CBC #### [facility] [address] [place] [address] Dr. Arden PughT [Catalytic activity/Vol]15 U/QLscoqm42-90Tom [facility] CenterComment on above:Performed By: #### CBC #### [facility] [address] [place] [address] Dr. Arden Lopez gap [Moles/Vol]6.1 mmol/LNormalThe [facility] CenterComment on above:Performed By: #### CBC #### [facility] [address] [place] [address] Dr. Arden MagallonAST [Catalytic activity/Vol]11 U/LCritically iwu96-27Vnr [facility] CenterComment on above:Performed By: #### CBC #### [facility] [address] [place] [address] Dr. Arden MagallonBilirubin [Mass/Vol]0.4 mg/dLNormal0.2-1.0The [facility] Comment on above:Performed By: #### CBC #### [facility] [address] [place] [address] Dr. Arden MagallonCalcium [Mass/Vol]9.6 mg/dLNormal8.5-10.1The [facility] Comment on above:Performed By: #### CBC #### [facility] [address] [address] [address] Arden MagallonChloride [Moles/Vol]106 mmol/SRbzgce78-355Qgt [facility] Comment on above:Performed By: #### CBC #### [facility] [address] [address] [address] Arden MagallonCO2 [Moles/Vol]29.5 mmol/QAhhwsd86.0-32.0The [facility] Comment on above:Performed By: #### CBC #### [facility] [address] [address] [address] Arden MagallonCreatinine [Mass/Vol]1.02 mg/dLNormal0.55-1.02The [facility] CenterComment on above:Performed By: #### CBC #### [facility] [address] [place] [address] Dr. Her ChangEGFR-AF MALAWIAN>60Normal>=60The [facility] CenterComment on above:Performed By: #### CBC #### [facility] [address] [address] [address] Arden CarranzaGFR-NON AF VTQNANNZ69 mL/min/1.87r8Romkfwvlgi low>=60The [facility] CenterComment on above:Performed By: #### CBC #### [facility] [address] [address] [address] Arden MagallonGlobulin (S) [Mass/Vol]3.3 g/dLNormalThe [facility] CenterComment on above:Performed By: #### CBC #### [facility] [address] [address] [address] Arden MagallonGlucose [Mass/Vol]143 mg/dLCritically inlt13-119Ome [facility] CenterComment on above:Performed By: #### CBC #### [facility] [address] [address] [address] Arden MagallonPotassium [Moles/Vol]3.6 mmol/LNormal3.5-5.1The [facility] Comment on above:Performed By: #### CBC #### [facility] [address] [address] [address] Arden MagallonProtein [Mass/Vol]7.0 g/dLNormal6.4-8.2The [facility] Comment on above:Performed By: #### CBC #### [facility] [address] [place] [address] Dr. Arden MagallonSodium [Moles/Vol]138 mmol/DEqqocl247-645Rcm [facility] Comment on above:Performed By: #### CBC #### [facility] [address] [address] [address] Arden Jones nitrogen [Mass/Vol]21.0 mg/dLCritically high7.0-18.0The [facility] CenterComment on above:Performed By: #### CBC #### [facility] [address] [place] [address] Dr. Arden Jones nitrogen/Creatinine [Mass ratio]20.6 mg/mgNormFayette County Memorial Hospitale [facility] CenterComment on above:Performed By: #### CBC #### [facility] [address] [place] [address] Dr. Arden MagallonPROTIMEon [id number] Coag (PPP) [Relative time]1.27 {INR} NormalThe [facility] CenterComment on above:Performed By: #### PT, DDIM #### [facility] [address] [place] [address] Dr. Arden Cortez GUIDELINESSEE BELOWProMedica Bay Park HospitalComment on above:Result Comment: DESIRED INR: 2.0 - 3.0 CONDITIONS NOT LISTED BELOW 2.5 - 3.5 FOR PROSTHETIC HEART VALVE REPLACEMENT 2.5 - 3.5 RECURRENT THROMBOSIS Performed By: #### PT, DDIM #### [facility] [address] [place] [address] Dr. Arden MagallonPT Coag (PPP) [Time]13.5 sCritically high9.0-11.6The [facility] CenterComment on above:Performed By: #### PT, DDIM #### [facility] [address] [place] [address] Dr. Arden Green, [facility] SENSITIVITYon [id number] pg/mLNormal 4.0-51.3The [facility] on above:Result Comment: CUT-OFF POINTS HAVE BEEN ESTABLISHED BASED ON THE FOURTH UNIVERSAL DEFINITIONS OF MYOCARDIAL INFARCTION. THE UPPER REFERENCE LIMIT (URL) OF TROPONIN, DEFINED THE 99TH PERCENTILE OF cTnI DISTRIBUTION IN A REFERENCE POPULATION, HAS BEEN CONFIRMED THE DECISION THRESHOLD FOR DE DIAGNOSIS.Performed By: #### BMP #### [facility] [address] [address] [address] Arden MagallonXR CHEST 1 Von [id number] CHEST 1 VEXAMINATION: XR CHEST 1 V [...] Electronically authenticated by: HARJINDER RAMIREZ Date: 2022-08-17 13:57[facility] URINE PROFILEon [id number] Ql (U)NegativeNormal NEGATIVEMercy Health Willard HospitalComment on above:Performed By: #### PT, DDIM #### [facility] [address] [address] [address] Arden Miles (U)CLEARNormalCLEARThe [facility] CenterComment on above: Performed By: #### PT, DDIM #### [facility] [address] [address] [address] Arden Gutierrez (U)LT. YELLOWNormalYELLOWMercy Health Willard HospitalComment on above:Performed By: #### PT, DDIM #### [facility] [address] [address] [address] Yilan ChangERUAHDA micrscopic examination will be performed if indicated. NormalThe [facility] CenterComment on above:Performed By: #### PT, DDIM #### [facility] [address] [place] [address] Dr. Arden MagallonGlucose Ql (U)NegativeNormalNEGATIVEMercy Health Willard HospitalComment on above:Performed By: #### PT, DDIM #### [facility] [address] [address] [address] Arden MagallonHemoglobin Ql (U)SMALLAbnormalNEGATIVEMercy Health Willard Hospital Comment on above:Performed By: #### PT, DDIM #### [facility] [address] [place] [address] Dr. Arden MagallonKetones Ql (U)NegativeNormalNEGATIVEMercy Health Willard HospitalComment on above:Performed By: #### PT, DDIM #### [facility] [address] [place] [address] Dr. Arden MagallonLEUKOCYTESTRACEAbnormalNEGATIVEMercy Health Willard HospitalComment on above:Performed By: #### PT, DDIM #### [facility] [address] [place] [address] Dr. Arden MagallonNitrite Ql (U)NegativeNormalNEGATIVEMercy Health Willard HospitalComment on above:Performed By: #### PT, DDIM #### [facility] [address] [place] [address] Dr. Arden MagallonpH (U)7.0 [pH]Normal5-9Mer[facility] Health Willard HospitalComment on above: Performed By: #### PT, DDIM #### [facility] [address] [place] [address] Dr. Arden MagallonSPEC GRAVITY1.398Zuvnuy9.005-<=1.025Mer[facility] Health Willard HospitalComment on above:Performed By: #### PT, DDIM #### [facility] [address] [address] [address] Arden MagallonUA PROTEINNegativeNormalNEGATIVE/ TRACEMercy Health Willard Hospital Comment on above:Performed By: #### PT, DDIM #### [facility] [address] [address] [address] Arden AYALA INDINDICATEDProMedica Bay Park HospitalComment on above: Performed By: #### PT, DDIM #### [facility] [address] [address] [address] Arden Medina Qn (U)0.2 {Myranda'U}/dLNormal0.2 - 1.0The [facility] CenterComment on above:Performed By: #### PT, DDIM #### [facility] [address] [address] [address] Arden Baez MICROSCOPIC ONLYon [id number] SEENNormalNONE SEENMercy Health Willard HospitalComascension providence hospital on above:Performed By: #### PT, DDIM #### [facility] [address] [place] [address] Dr. Arden Griffin identified Cx Nom (U)NOT INDICATEDNoACMC Healthcare System GlenbeighComascension providence hospital on above:Performed By: #### PT, DDIM #### [facility] [address] [place] [address] Dr. Arden Burton SEENNormalNONE SEENMercy Health Willard HospitalComascension providence hospital on above:Performed By: #### PT, DDIM #### [facility] [address] [address] [address] Arden Gonzalez LM Nom (Urine sed)NONE SEENNormalNONE SEENMercy Health Willard HospitalComascension providence hospital on above:Performed By: #### PT, DDIM #### [facility] [address] [address] [address] Arden Leethelial cells LM Ql (Urine sed)RARENormalNONE SEEN /RAREThe [facility] CenterComascension providence hospital on above:Performed By: #### PT, DDIM #### [facility] [address] [address] [address] Arden James SEENNormalNONE SEENMercy Health Willard HospitalComascension providence hospital on above:Performed By: #### PT, DDIM #### [facility] [address] [place] [address] Dr. Arden MagallonYsviwIDP2-1Coqubj0-2Ckq [facility] on above:Performed By: #### PT, DDIM #### [facility] [address] [place] [address] Dr. Arden MagallonWBC0-2AbnormalNONE SEENThe [facility] CenterComment on above: Performed By: #### PT, DDIM #### [facility] [address] [place] [address] Dr. Arden MagallonXR CHEST 1 Von [id number] CHEST 1 VEXAMINATION: XR CHEST 1 V, [...] Electronically authenticated by: PANCHO ELY Date: 2022-04-15 22:19ProMedica Bay Park HospitalBNPon [id number] peptide B (Bld) [Mass/Vol]318.0 pg/mLNormal<=1,800.0The [facility] CenterComascension providence hospital on above:Performed By: #### BNP, CMP #### [facility] [address] [place] [address] Dr. Arden MagallonCBC AUTO DIFFon [id number] #0.2 103/ulCritically high0.0-0.1 The [facility] on above:Performed By: #### PT, DDIM #### [facility] [address] [place] [address] Dr. Arden MagallonBasophils/100 WBC (Bld)2.2 %Critically high0.2-2.0The [facility] HospitalComment on above:Performed By: #### PT, DDIM #### [facility] [address] [place] [address] Dr. Arden Valdes #0.5 103/ulNormal0.0-0.7The [facility] CenterComment on above: Performed By: #### PT, DDIM #### [facility] [address] [place] [address] Dr. Arden Carranzaosinophils/100 WBC (Bld)6.2 %Normal0.9-7.0The [facility] Comment on above:Performed By: #### PT, DDIM #### [facility] [address] [place] [address] Dr. Arden Carranzarythrocyte distribution width (RBC) [Ratio]14.0 %Yxftgj44.0-15.0 The [facility] CenterComment on above:Performed By: #### PT, DDIM #### [facility] [address] [place] [address] Dr. Arden MagallonHematocrit (Bld) [Volume fraction]41.6 %Mkzybm42.0-48.0The [facility] CenterComment on above:Performed By: #### PT, DDIM #### [facility] [address] [place] [address] Dr. Arden MagallonHemoglobin (Bld) [Mass/Vol]13.8 g/zHPnswqc74.0-16.0The [facility] Centerment on above:Performed By: #### PT, DDIM #### [facility] [address] [place] [address] Dr. Arden Mathew #0.01 10e3/ulNormal0.00-0.03The [facility] CenterComment on above:Performed By: #### PT, DDIM #### [facility] [address] [place] [address] Dr. Arden Mathew %0.1 %Normal0.0-0.5The [facility] CenterComment on above: Performed By: #### PT, DDIM #### [facility] [address] [place] [address] Dr. Arden Alvarado #3.2 103/ulNormal1.2-3.8The [facility] CenterComment on above:Performed By: #### PT, DDIM #### [facility] [address] [place] [address] Dr. Arden Vitalehocytes/100 WBC (Bld)37.2 %Uieife70.5-60.0The [facility] CenterComment on above:Performed By: #### PT, DDIM #### [facility] [address] [place] [address] Dr. Arden Rodríguez DIFF REQNONormalThe [facility] CenterComment on above: Performed By: #### PT, DDIM #### [facility] [address] [place] [address] Dr. Arden Torres (RBC) [Entitic mass]31.0 rbCmjwmd62.7-34.0The [facility] CenterComment on above:Performed By: #### PT, DDIM #### [facility] [address] [place] [address] Dr. Arden Torres (RBC) [Mass/Vol]33.2 g/dDQzqiud78.9-35.2The [facility] CenterComment on above:Performed By: #### PT, DDIM #### [facility] [address] [place] [address] Dr. Arden Torres (RBC) [Entitic vol]93.5 gEWydval45.0-99.0The [facility] CenterComment on above:Performed By: #### PT, DDIM #### [facility] [address] [place] [address] Dr. Arden Nelson #0.8 103/ulNormal0.3-0.8The [facility] CenterComment on above:Performed By: #### PT, DDIM #### [facility] [address] [place] [address] Dr. Arden Perrinocytes/100 WBC (Bld)9.4 %Normal1.7-12.0The [facility] Comment on above:Performed By: #### PT, DDIM #### [facility] [address] [place] [address] Dr. Arden Patterson #3.9 103/ulNormal1.4-6.5The [facility] CenterComment on above:Performed By: #### PT, DDIM #### [facility] [address] [place] [address] Dr. Arden Miguelutrophils/100 WBC (Bld)44.9 %Zqkryb73.0-75.0The [facility] CenterComment on above:Performed By: #### PT, DDIM #### [facility] [address] [place] [address] Dr. Arden Salaslet mean volume (Bld) [Entitic vol]10.7 fLNormal9.5-13.5The [facility] CenterComascension providence hospital on above:Performed By: #### PT, DDIM #### [facility] [address] [place] [address] Dr. Arden MagallonPLT158 103/mxPyhfyg859-118Ipk [facility] on above: Performed By: #### PT, DDIM #### [facility] [address] [place] [address] Dr. Arden MagallonRBC4.45 106/ulNormal4.20-5.40The [facility] on above:Performed By: #### PT, DDIM #### [facility] [address] [place] [address] Dr. Arden MagallonWBC8.7 103/ulNormal4.0-11.0The [facility] CenterComascension providence hospital on above: Performed By: #### PT, DDIM #### [facility] [address] [place] [address] Dr. Arden Madsen 14(COMP METB)on 92-31-5799Fgraitb [Mass/Vol]4.2 g/dLNormal 3.4-5.0The [facility] CenterComment on above:Performed By: #### BNP, CMP #### [facility] [address] [place] [address] Dr. Arden MagallonAlbumin/Globulin [Mass ratio]1.2 {ratio}NormalMercy Health Willard HospitalComment on above:Performed By: #### BNP, CMP #### [facility] [address] [place] [address] Dr. Arden Amos [Catalytic activity/Vol]75 U/HZhnxhu12-026Btv [facility] CenterComment on above:Performed By: #### BNP, CMP #### [facility] [address] [address] [address] Arden Wyman [Catalytic activity/Vol]31 U/ETxahyj20-57Wsa [facility] CenterComment on above:Performed By: #### BNP, CMP #### [facility] [address] [place] [address] Dr. Arden Lopez gap [Moles/Vol]11.6 mmol/LNormalMercy Health Willard Hospital Comment on above:Performed By: #### BNP, CMP #### [facility] [address] [place] [address] Dr. Arden MagallonAST [Catalytic activity/Vol]16 U/XZzltdx11-77Mdx [facility] CenterComment on above:Performed By: #### BNP, CMP #### [facility] [address] [place] [address] Dr. Arden MagallonBilirubin [Mass/Vol]0.4 mg/dLNormal0.2-1.0[facility] Comment on above:Performed By: #### BNP, CMP #### [facility] [address] [place] [address] Dr. Arden MagallonCalcium [Mass/Vol]9.7 mg/dLNormal8.5-10.1[facility] Comment on above:Performed By: #### BNP, CMP #### [facility] [address] [place] [address] Dr. Arden MagallonChloride [Moles/Vol]106 mmol/AWqrein16-962UwlMercy Health Willard Hospital Comment on above:Performed By: #### BNP, CMP #### [facility] [address] [place] [address] Dr. Arden MagallonCO2 [Moles/Vol]25.2 mmol/WJlpwya76.0-32.0The [facility] Comment on above:Performed By: #### BNP, CMP #### [facility] [address] [place] [address] Dr. Arden MagallonCreatinine [Mass/Vol]1.06 mg/dLCritically high0.55-1.02Mer[facility] Willard HospitalComment on above:Performed By: #### BNP, CMP #### [facility] [address] [place] [address] Dr. Her ChangEGFR-AF RMSVDVPW02 mL/min/1.00g3Ekwdcu>=60The [facility] Comment on above:Performed By: #### BNP, CMP #### [facility] [address] [place] [address] Dr. Arden CarranzaGFR-NON AF MEEAWDVO98 mL/min/1.38d8Zarjqgafnp low>=60The [facility] CenterComment on above:Performed By: #### BNP, CMP #### [facility] [address] [place] [address] Dr. Arden MagallonGlobulin (S) [Mass/Vol]3.4 g/dLNormalThe [facility] CenterComment on above:Performed By: #### BNP, CMP #### [facility] [address] [place] [address] Dr. Arden MagallonGlucose [Mass/Vol]123 mg/dLCritically yavs98-469Xgn [facility] CenterComment on above:Performed By: #### BNP, CMP #### [facility] [address] [place] [address] Dr. Arden MagallonPotassium [Moles/Vol]3.8 mmol/LNormal3.5-5.1The [facility] Comment on above:Performed By: #### BNP, CMP #### [facility] [address] [place] [address] Dr. Arden MagallonProtein [Mass/Vol]7.6 g/dLNormal6.4-8.2The [facility] Comment on above:Performed By: #### BNP, CMP #### [facility] [address] [place], [place] [address] Dr. Arden MagallonSodium [Moles/Vol]139 mmol/LLzvram799-337Gvi [facility] Comment on above:Performed By: #### BNP, CMP #### [facility] [address] [address] Dr. Arden Jones nitrogen [Mass/Vol]22.0 mg/dLCritically high7.0-18.0The [facility] CenterComment on above:Performed By: #### BNP, CMP #### [facility] [address] [address] [address] Arden Jones nitrogen/Creatinine [Mass ratio]20.8 mg/mgNoalThe [facility] CenterComment on above:Performed By: #### BNP, CMP #### [facility] [address] [address] [address] Her ChangECHOCARDIO M/2D COMPLETEon 15-42-1750ZORCHCDDWM M/2D COMPLETE Patient: ZORAIDA BARRIOS Exam Date: 04/06/2022 : 1935 Gender:F Ordering : SUSAN LONG Admission #: [id number] Family : Order #: [id number] CLICK HERE TO VIEW EXAM ECHOCARDIOGRAM REPORT [...] Area(A4C): 16.40 cm2 Left Atrium Systolic Volume(A2C): 50916 mm3 Left Atrium Systolic Volume(A4C): 24908 mm3 Mitral Valve MV E to A Ratio: 0.60 Deceleration [place]: 2080 mm/s2 Mitral Valve A-Wave Peak Velocity: 103.00 cm/s Mitral Valve E-Wave Peak Velocity: 62.20 cm/s Right Ventricle RV Internal Diastolic Dimension: 3.04 cm Aorta AO Root Diam: 2.90 cm Aortic Valve AoV Area (Peak Bucky): 1.86 cm2 Deceleration [place]: 1080 mm/s2 Pressure Half-Time: 976 ms Peak [...] by: Edvin Lisa M.D. on 04/06/2022 at 16:27[facility]US KIDNEYSon 31-11-8443MD KIDNEYSEXAMINATION: US KIDNEYS, grayscale and Doppler HISTORY: [...] Electronically authenticated by: BERTHA SOLIZ Date: 2022-04-06 16:45[facility] HospitalBNPon 29-26-5289Fjupkthtsuc peptide B (Bld) [Mass/Vol]193.0 pg/mLNormal<=1,800.0The [facility] CenterComment on above:Performed By: #### BNP, CMP #### [facility] [address] [place] [address] Dr. Arden Marie AUTO DIFFon 44-25-1088RDVT #0.1 103/ulNormal0.0-0.1The [facility] CenterComment on above:Performed By: #### BNP, CMP #### [facility] [address] [place] [address] Dr. Arden MagallonBasophils/100 WBC (Bld)0.9 %Normal0.2-2.0The [facility] Comment on above:Performed By: #### BNP, CMP #### [facility] [address] [place] [address] Dr. Arden Valdes #0.4 103/ulNormal0.0-0.7The [facility] CenterComment on above: Performed By: #### BNP, CMP #### [facility] [address] [place] [address] Dr. Arden Carranzaosinophils/100 WBC (Bld)4.7 %Normal0.9-7.0The [facility] Comment on above:Performed By: #### BNP, CMP #### [facility] [address] [place] [address] Dr. Arden Carranzarythrocyte distribution width (RBC) [Ratio]14.2 %Szokxx30.0-15.0 The [facility] CenterComment on above:Performed By: #### BNP, CMP #### [facility] [address] [place] [address] Dr. Arden MagallonHematocrit (Bld) [Volume fraction]43.1 %Dpidzk38.0-48.0The [facility] CenterComment on above:Performed By: #### BNP, CMP #### [facility] [address] [place] [address] Dr. Arden MagallonHemoglobin (Bld) [Mass/Vol]14.1 g/uWCgsrct71.0-16.0The [facility] CenterComment on above:Performed By: #### BNP, CMP #### [facility] [address] [place] [address] Dr. Arden Mathew #0.04 10e3/ulCritically high0.00-0.03The [facility] Comment on above:Performed By: #### BNP, CMP #### [facility] [address] [place] [address] Dr. Arden Mathew %0.5 %Normal0.0-0.5The [facility] CenterComment on above: Performed By: #### BNP, CMP #### [facility] [address] [place] [address] Dr. Arden Alvarado #3.0 103/ulNormal1.2-3.8The [facility] CenterComment on above:Performed By: #### BNP, CMP #### [facility] [address] [place] [address] Dr. Arden Alcantaramphocytes/100 WBC (Bld)34.2 %Upokug89.5-60.0The [facility] CenterComment on above:Performed By: #### BNP, CMP #### [facility] [address] [place] [address] Dr. Arden Rodríguez DIFF REQNONormalThe [facility] CenterComment on above: Performed By: #### BNP, CMP #### [facility] [address] [place] [address] Dr. Arden Torres (RBC) [Entitic mass]31.3 rbMjcyhw95.7-34.0The [facility] CenterComment on above:Performed By: #### BNP, CMP #### [facility] [address] [place] [address] Dr. Arden Torres (RBC) [Mass/Vol]32.7 g/hSBveggn24.9-35.2The [facility] CenterComment on above:Performed By: #### BNP, CMP #### [facility] [address] [place] [address] Dr. Arden Leonard (RBC) [Entitic vol]95.8 fCQqczcc23.0-99.0The [facility] CenterComment on above:Performed By: #### BNP, CMP #### [facility] [address] [place] [address] Dr. Arden Nelson #1.2 103/ulCritically high0.3-0.8The [facility] Comment on above:Performed By: #### BNP, CMP #### [facility] [address] [place] [address] Dr. Arden Perrinocytes/100 WBC (Bld)13.5 %Critically high1.7-12.0The [facility] CenterComment on above:Performed By: #### BNP, CMP #### [facility] [address] [place], [place] [id number] Dr. Arden Patterson #4.1 103/ulNormal1.4-6.5The [facility] on above:Performed By: #### BNP, CMP #### [facility] [address] [place] [address] Dr. Arden Miguelutrophils/100 WBC (Bld)46.2 %Rdwqpa19.0-75.0The [facility] CenterComascension providence hospital on above:Performed By: #### BNP, CMP #### [facility] [address] [place] [address] Dr. Arden MagallonPlatelet mean volume (Bld) [Entitic vol]11.2 fLNormal9.5-13.5The [facility] on above:Performed By: #### BNP, CMP #### [facility] [address] [place] [address] Dr. Arden MagallonPLT160 103/wuZwleuy474-180Pop [facility] on above: Performed By: #### BNP, CMP #### [facility] [address] [place] [address] Dr. Arden MagallonRBC4.50 106/ulNormal4.20-5.40The [facility] on above:Performed By: #### BNP, CMP #### [facility] [address] [place] [address] Dr. Arden MagallonWBC8.9 103/ulNormal4.0-11.0The [facility] on above: Performed By: #### BNP, CMP #### [facility] [address] [place] [address] Dr. Arden Madsen 14(COMP METB)on 82-31-7697Cxlmoad [Mass/Vol]4.0 g/dLNormal 3.4-5.0The [facility] on above:Performed By: #### BNP, CMP #### [facility] [address] [place] [address] Dr. Arden MagallonAlbumin/Globulin [Mass ratio]1.2 {ratio}NormalThe [facility]dulio HospitalComment on above:Performed By: #### BNP, CMP #### [facility] [address] [address] [address] Arden Amos [Catalytic activity/Vol]74 U/SJngsfh31-644Wrt [facility] CenterComment on above:Performed By: #### BNP, CMP #### [facility] [address] [address] [address] Arden Wyman [Catalytic activity/Vol]28 U/LKaxqsy07-55Tzc [facility] CenterComment on above:Performed By: #### BNP, CMP #### [facility] [address] [address] [address] Arden Lopez gap [Moles/Vol]11.9 mmol/LNormalThe [facility] Comment on above:Performed By: #### BNP, CMP #### [facility] [address] [address] [address] Arden MagallonAST [Catalytic activity/Vol]18 U/HHekwuv98-37Qdx [facility] CenterComment on above:Performed By: #### BNP, CMP #### [facility] [address] [address] [address] Arden MagallonBilirubin [Mass/Vol]0.4 mg/dLNormal0.2-1.0The [facility] Comment on above:Performed By: #### BNP, CMP #### [facility] [address] [address] [address] Arden MagallonCalcium [Mass/Vol]9.7 mg/dLNormal8.5-10.1The [facility] Comment on above:Performed By: #### BNP, CMP #### [facility] [address] [address] [address] Arden MagallonChloride [Moles/Vol]105 mmol/YEwnama58-495Srp [facility] Comment on above:Performed By: #### BNP, CMP #### [facility] [address] [address] [address] Arden MagallonCO2 [Moles/Vol]26.3 mmol/DIqicyc69.0-32.0The [facility] Comment on above:Performed By: #### BNP, CMP #### [facility] [address] [address] [address] Arden MagallonCreatinine [Mass/Vol]1.31 mg/dLCritically high0.55-1.02The [facility] CenterComment on above:Performed By: #### BNP, CMP #### [facility] [address] [address] [address] Arden CarranzaGFR-AF PNBGRVLY25 mL/min/1.93f5Vghpgdpfdr low>=60The [facility] CenterComment on above:Performed By: #### BNP, CMP #### [facility] [address] [place] [address] Dr. Arden CarranzaGFR-NON AF MVPKNMGX90 mL/min/1.60v8Nkcbhsdvxk low>=60The [facility] CenterComment on above:Performed By: #### BNP, CMP #### [facility] [address] [place] [address] Dr. Arden MagallonGlobulin (S) [Mass/Vol]3.3 g/dLNormalThe [facility] CenterComment on above:Performed By: #### BNP, CMP #### [facility] [address] [place] [address] Dr. Arden MagallonGlucose [Mass/Vol]111 mg/dLCritically fnly71-778Umd [facility] CenterComment on above:Performed By: #### BNP, CMP #### [facility] [address] [place] [address] Dr. Arden MagallonPotassium [Moles/Vol]4.2 mmol/LNormal3.5-5.1The [facility] Comment on above:Performed By: #### BNP, CMP #### [facility] [address] [place] [address] Dr. Arden MagallonProtein [Mass/Vol]7.3 g/dLNormal6.4-8.2The [facility] Comment on above:Performed By: #### BNP, CMP #### [facility] [address] [place] [address] Dr. Arden MagallonSodium [Moles/Vol]139 mmol/QZojnfo711-159Vte [facility] Comment on above:Performed By: #### BNP, CMP #### [facility] [id number] Arden Jones nitrogen [Mass/Vol]24.0 mg/dLCritically high7.0-18.0The [facility] CenterComment on above:Performed By: #### BNP, CMP #### [facility] [id number] [address] Arden Jones nitrogen/Creatinine [Mass ratio]18.3 mg/mgNormalThe [facility] CenterComment on above:Performed By: #### BNP, CMP #### [facility] [address] [place] [address] Dr. Arden Green, HIGH SENSITIVITYon 33-98-7929EZNUXZ9.6 pg/mLNormal 4.0-51.3The [facility] CenterComment on above:Result Comment: CUT-OFF POINTS HAVE BEEN ESTABLISHED BASED ON THE FOURTH UNIVERSAL DEFINITIONS OF MYOCARDIAL INFARCTION. THE UPPER REFERENCE LIMIT (URL) OF TROPONIN, DEFINED THE 99TH PERCENTILE OF cTnI DISTRIBUTION IN A REFERENCE POPULATION, HAS BEEN CONFIRMED THE DECISION THRESHOLD FOR DE DIAGNOSIS.Performed By: #### CBC #### [facility] [address] [place] [address] Dr. Arden Boles Summary.on 81-99-4812Dqiklk Summary. CD:[id number] OQ0MKzyC2OqitUe [file] IGNv (more content not included)...NormalKeenan Private HospitalAuto Diffon 83-23-4099Weilqobwo/100 WBC (Bld)4.4 %High0.0-2.0[facility] Comment on above:Order Comment: Order Added by Discern Expert.Performed By: #### [id number], [id number], [id number], 0904095, [id number] #### [facility] [address] [place] [address]Cvawrbblj/Leukocytes Auto (Bld) [Pure # fraction]0.3 E9/LHigh 0.0-0.2FOhio Valley HospitalComment on above:Order Comment: Order Added by Discern Expert.Performed By: #### [id number], 8966420, 08502198, 9907515, 8872241 #### [facility] [address] [place] [address]Mkqwiplddkc/100 WBC (Bld)3.8 %Normal0.0-8.0[facility] Private HospitalComment on above:Order Comment: Order Added by Discern Expert.Performed By: #### [id number], 3960533, 69556962, 2064636, 5994955 #### [facility] [address] [place] [address]Cmtyfgixvfw/Leukocytes Auto (Bld) [Pure # fraction]0.3 E9/L Normal0.0-0.5FOhio Valley HospitalComment on above:Order Comment: Order Added by Discern Expert.Performed By: #### [id number], 5835951, 53146166, 6024622, 9111896 #### [facility] [address] [place] [address]Kqzvjrbaauo/100 WBC (Bld)31.3 %Ahnote36.0-50.0[facility] Private HospitalComment on above:Order Comment: Order Added by Discern Expert. Performed By: #### [id number], 6223992, 62757993, 7354254, 4140031 #### [facility] [address] [place] [address]Ugplssrunxo/Leukocytes Auto (Bld) [Pure # fraction]2.3 E9/L Normal1.0-4.0[facility] Private HospitalComment on above:Order Comment: Order Added by Discern Expert.Performed By: #### [id number], 1951025, 44257249, 5547473, 8993198 #### [facility] [address], [place] [address]Mjwzxwgrw/100 WBC (Bld)12.8 %Normal4.0-14.0[facility] Private HospitalComment on above:Order Comment: Order Added by Discern Expert.Performed By: #### [id number], 3613995, 00033424, 8645281, 5549866 #### [facility] [address] [place] [address]Hkzlevjst/Leukocytes Auto (Bld) [Pure # fraction]0.9 E9/LNormal 0.2-1.0[facility] HospitalComment on above:Order Comment: Order Added by Discern Expert.Performed By: #### [id number], 9660091, 14796463, 2304389, 6814952 #### [facility] [address] [place] [address]Msmaenlvbsq/100 WBC (Bld)47.7 %Snnfuh64.0-75.0[facility] HospitalComment on above:Order Comment: Order Added by Discern Expert. Performed By: #### [id number], 3145533, 46634485, 7402642, 9288389 #### [facility] [address] [place] [address]Rsudqrvmgjj/Leukocytes Auto (Bld) [Pure # fraction]3.5 E9/L Normal2.0-7.5FOhio Valley HospitalComment on above:Order Comment: Order Added by Discern Expert.Performed By: #### [id number], 0898777, 28355426, 9521722, 7740695 #### [facility] [address] [place] [address]LIYum 14-25-0661Gwtmzdqapk [Mass/Vol]0.9 mg/dLNormal0.5-1.3 [facility] HospitalComment on above:Performed By: #### 10437657, 6402615, 68752387, 2263177, 4837528 #### [facility] [address] [place] [address]Phhj nitrogen [Mass/Vol]20 mg/dLNormal5-21[facility] HospitalComment on above:Performed By: #### [id number], 6846577, 89561234, 4105608, 7388692 #### [facility] [address], [place] [address]Hfuj nitrogen/Creatinine [Mass ratio]22 No YqejeOybc33-15VjzshdKeenan Private HospitalComment on above:Performed By: #### 78146730, 8676722, 07070990, 1311023, 8874462 #### [facility] [address], [place] [address]Btryx gap [Moles/Vol]13 mmol/LNormal6-16[facility] Private HospitalComment on above:Performed By: #### 07921060, 2220055, 35577322, 6543557, 6068536 #### [facility] [address], [place] [address]Jechclf [Mass/Vol]9.9 mg/dLNormal8.9-11.1FOhio Valley HospitalComment on above:Performed By: #### 56283825, 1251488, 39607570, 7273318, 5898000 #### [facility] [address], [place] [address]Dudkwsba [Moles/Vol]104 mmol/QWzgugr930-125JkutrmKeenan Private HospitalComment on above:Performed By: #### 67489119, 7433830, 75616053, 8475221, 7295156 #### [facility] [address], [place] [address]HS9 [Moles/Vol]24 mmol/PVfozoc47-36RzlvpuKeenan Private Hospital Comment on above:Performed By: #### 37836069, 8235102, 59360339, 0561282, 1112080 #### [facility] [address], [place] [address]Yfbdwdh [Mass/Vol]136 mg/eFUnhyya65-635HybzdcKeenan Private HospitalComment on above:Result Comment: If this glucose result represents a fasting glucose, interpretation should refer tothe following reference range: 55-99 mg/dLPerformed By: #### 04633749, 2422454, 96752914, 3090438, 9011338 #### [facility] [address], [place] [address]Cxviuqeei [Moles/Vol]3.7 mmol/LNormal3.5-5.3FOhio Valley HospitalComment on above:Performed By: #### 27887227, 8985900, 00681049, 0917254, 0072377 #### [facility] [address], [place] [address]Oerslb [Moles/Vol]137 mmol/CCptzjh558-880FiescfKeenan Private HospitalComment on above:Performed By: #### 58597237, 0084994, 30392449, 4326902, 0603788 #### [facility] [address] [place] [address] w/ Auto Diffon 81-01-3415Rhdvevyzjvx distribution width (RBC) [Ratio]15.3 %High10.9-14.2FOhio Valley HospitalComment on above: Performed By: #### 40041392, 0256144, 89982593, 3430158, 3156336 #### [facility] [address] [place] [address]Dpnoxsenvs (Bld) [Volume fraction]43.0 %Opyuxc99.0-46.0[facility] HospitalComment on above:Performed By: #### 34371519, 2668722, 91166878, 5932175, 6596675 #### [facility] [address], [place] [address]Myctjzlxun (Bld) [Mass/Vol]14.4 g/hDYwcnmi20.0-16.0[facility] HospitalComment on above:Performed By: #### 36907070, 9181336, 75862571, 0330649, 8758168 #### [facility] [address], [place] [address]EJP (RBC) [Entitic mass]31.0 rtVnypzy23.0-34.0[facility] HospitalComment on above:Performed By: #### 30868773, 0270904, 71595105, 3567249, 5237780 #### [facility] [address] [place] [address]DDYZ (RBC) [Mass/Vol]33.6 g/vRWuadoq07.4-36.0[facility] HospitalComment on above:Performed By: #### 42789493, 9605513, 13972700, 1432658, 1981736 #### [facility] [address] [place] [address]AXJ (RBC) [Entitic vol]92.2 jMJcogze70.0-100.0[facility] HospitalComment on above:Performed By: #### 15775954, 9817855, 06668256, 4248448, 3904969 #### [facility] [address] [place] [address]Xrlykyaa mean volume (Bld) [Entitic vol]9.2 fLNormal6.4-10.8 [facility] HospitalComment on above:Performed By: #### 45106108, 2763548, 89853163, 3274207, 0624598 #### [facility] [address] [place] [address]Eigkwoqfz (Bld) [#/Vol]137.0 E9/QOtb619.0-500.0[facility] HospitalComment on above:Performed By: #### 44073441, 9214923, 41298679, 3609211, 7794363 #### [facility] [address] [place] [address]JKW (Bld) [#/Vol]4.7 E12/LNormal4.3-5.9[facility] HospitalComment on above:Performed By: #### 10820232, 4184982, 83047049, 5960717, 0409543 #### [facility] [address], [place] [address]HRR corrected for nucl RBC Auto (Bld) [#/Vol]7.3 E9/LNormal 4.0-11.0[facility] HospitalComment on above:Performed By: #### 27059005, 9337886, 21310334, 6260024, 8489868 #### [facility] [address], [place] [address]QCXRZZRGSRqgttmt By: SYSTEM SYSTEM on 82-43-6005Kggae gap [Moles/Vol]13 mmol/LNormal6 - 16 mEq/LFTMC RemisolCalcium [Mass/Vol]9.9 mg/dL Normal8.9 - 11.1 mg/dLFTMC RemisolChloride [Moles/Vol]104 mmol/NVwdtxl226 - 111 mmol/LFTMC RemisolCO2 [Moles/Vol]24 mmol/MXiwpuz87 - 31 mmol/LFTMC Remisol Creatinine [Mass/Vol]0.9 mg/dLNormal0.5 - 1.3 mg/dLFTMC RemisolGlucose [Mass/Vol]136 mg/jYMbnxyt00 - 199 mg/dLFTMC RemisolPotassium [Moles/Vol]3.7 mmol/LNormal3.5 - 5.3 mmol/LFTMC RemisolSodium [Moles/Vol]137 mmol/QIcctvh161 - 145 mmol/LFTMC RemisolTroponin I.cardiac [Mass/Vol]8.10 pg/mLLow10.10 - 27.10 pg/mLFTMC RemisolUrea nitrogen [Mass/Vol]20 mg/dLNormal5 - 21 mg/dLFTMC Remisol Urea nitrogen/Creatinine [Mass ratio]22 mg/xkZzti47 - 20FT[facility] RemisolCOAGULATION Ordered By: Belkis Watson on 89-05-1121cJVG Coag (PPP) [Time]25.4 mUdrcbp07.1 - 36.5 second(s)[facility] Auto CoagINR Coag (PPP) [Relative time]1.1 {INR}Invalid Interpretation CodeFTMC Auto CoagPT Coag (PPP) [Time]13.4 sHigh10.2 - 12.9 second(s)[facility] Auto CoagCT Head or Brain w/o Contraston 47-65-6932MV Head or Brain w/o ContrastExam Date/Time: 02/24/2022 [...] Jacob Coon MD Transcribed by: KHANH Technologist: [facility] InstituteConsent for Treatmenton 03-66-9372Tqubfzz for Treatment [id number]:127[facility] HospitalDischarge Instructionson 82-35-5966Okzpjpese Instructions [id number]:127[facility] Clinical Summaryon 37-71-0312DZ Clinical Summary [address] [address] ED Clinical Summary Person Information Name: ZORAIDA BARRIOS[place] Age: 86 Years : 1935 Sex: Female Language: Kiswahili PCP: LACEY FREY MD Marital Status: Single [...] 02/24/2022 10:32:06 02/24/2022 10:32:06 02/24/2022 10:32:06 ADDRESS: [address] [place] [id number] PHYS DOC NOTES: MEDICAL INFORMATION: Prescriptions Given: PATIENT EDUCATION INFORMATION: Instructions: Hypertension, Adult Follow up: With: Address: When: LACEY FREY [address] [place] [address] Business (1) In 3 days 02/27/2022 Comments: Increase Losartan to 100 mg a day. Continue Metoprolol 50 mg a day. Make sure to take your blood pressure twice a day and follow-up with Dr. Frey tomorrow at 1 PM at her office. Return to the emergency room if your headache recurs, chest pain, dizziness or any new symptoms. DIAGNOSIS: 1:Accelerated hypertensionNormalFisher Leland Medical CenterED Note-Physicianon 39-61-6528CU Note-PhysicianBasic Information Time Seen: Norma PalaciosDemond 02/24/2022 [...] reported headache. 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 In the emergency room [...] LACEY FREY In 3 days 02/27/[address] [place] [address]- Business (1) Additional Instructions: Increase Losartan [...] % High (02/24/22 0 (more content not included)...[facility] HospitalComment on above:Result Comment: Electronically Signed By: Norma Palacios, Demond Collins\.br\Date and Time Signed: 02/24/2211:07 EDTED Patient Education Noteon 94-60-1103TE Patient Education NoteCardiovascular Hypertension, Adult High blood [...] or tofu. ? Avoi (more content not included)...[facility] Patient Summaryon 77-65-9780SK Patient Summary [address] [address] Patient Discharge Instructions Person Information Name: ZORAIDA BARRIOS Age: 86 Years Arrival Date: 02/24/2022 08:11:05 Discharge Diagnosis: 1:Accelerated hypertension Primary Care Physician: LACEY FREY MD Provider Information Primary Provider: Demond Green M.D. Advanced Crowning Inspector:None The exam and treatment you received in the Emergency Department were for an urgent problem and are not intended as complete care. It is important that you follow up with a doctor, nurse practitioner,or physician?s medical assistant per diem for ongoing care. If your symptoms become worse or you do not improve as expected and you are unable to reach your usual health care provider, you should return to the Emergency Department. We are available 24 hours a day. ZORAIDA BARRIOS has been given the following list of patient education materials, prescriptions and follow-up instructions: Follow-up Instructions: With: Address: When: LACEY FREY [facility] [place] [address] Business (1) In 3 days 02/27/2022 Comments: [...] opioids can be used to help relieve ehpqtrpo-xt-eijtac pain and are often prescribed following a [...] your community drug take- back program or [employer] mail-back program, or flush them down the toilet, following guidance from the Food and Drug Administration (www.fda.gov/Drugs/ResourcesForYou). ? Visit (more content not included)...[facility] HEMATOLOGYOrdered By: SYSTEM SYSTEM on 06-61-7375Lxmmallha/100 WBC (Bld)4.4 % High0.0 - 2.0 %[facility] HemeAutoSSBasophils/Leukocytes Auto (Bld) [Pure # fraction] 0.3 E9/LHigh0.0 - 0.2 E9/LFTMC HemeAutoSSEosinophils/100 WBC (Bld)3.8 %Normal0.0 - 8.0 %[facility] HemeAutoSSEosinophils/Leukocytes Auto (Bld) [Pure # fraction]0.3 E9/LNormal0.0 - 0.5 E9/LFTMC HemeAutoSSLymphocytes/100 WBC (Bld)31.3 %Rjwzjt59.0 - 50.0 %[facility] HemeAutoSSLymphocytes/Leukocytes Auto (Bld) [Pure # fraction]2.3 E9/LNormal1.0 - 4.0 E9/LFTMC HemeAutoSSMonocytes/100 WBC (Bld)12.8 %Normal4.0 - 14.0 %[facility] HemeAutoSSMonocytes/Leukocytes Auto (Bld) [Pure # fraction]0.9 E9/L Normal0.2 - 1.0 E9/LFTMC HemeAutoSSNeutrophils/100 WBC (Bld)47.7 %Udsnlt04.0 - 75.0 %[facility] HemeAutoSSNeutrophils/Leukocytes Auto (Bld) [Pure # fraction]3.5 E9/L Normal2.0 - 7.5 E9/LFTMC HemeAutoSSHEMATOLOGYOrdered By: Elena Vidales on 14-30-2716Cklpsysmqmt distribution width (RBC) [Ratio]15.3 %High10.9 - 14.2 % [facility] HemeAutoSSHematocrit (Bld) [Volume fraction]43.0 %Fxjkjd63.0 - 46.0 %[facility] HemeAutoSSHemoglobin (Bld) [Mass/Vol]14.4 g/uALkzyhw91.0 - 16.0 gm/dLFTMC HemeAutoSSMCH (RBC) [Entitic mass]31.0 poNdupeg93.0 - 34.0 pgFTMC HemeAutoSSMCHC (RBC) [Mass/Vol]33.6 g/mYVlqkxy94.4 - 36.0 gm/dLFTMC HemeAutoSSMCV (RBC) [Entitic vol]92.2 bWPcwybi87.0 - 100.0 fLFTMC HemeAutoSSPlatelet mean volume (Bld) [Entitic vol]9.2 fLNormal6.4 - 10.8 fLFTMC HemeAutoSSPlatelets (Bld) [#/Vol]137.0 E9/QBlr781.0 - 500.0 E9/LFTMC HemeAutoSSRBC (Bld) [#/Vol]4.7 E12/L Normal4.3 - 5.9 E12/LFTMC HemeAutoSSWBC corrected for nucl RBC Auto (Bld) [#/Vol]7.3 E9/LNormal4.0 - 11.0 E9/LFTMC HemeAutoSSPT & PTTon 23-94-5608VYM Coag (PPP) [Relative time]1.1 {INR}Invalid Interpretation CodeKeenan Private HospitalComment on above:Result Comment: INR results are specifically intended to assess patients stabilized on long-term Anticoagulation therapy suggested INR?s ?Less Intensive Anticoagulation? 2.0 ? 3.0 Conventional Range 3.0 ? 4.5Performed By: #### [id number], [id number], [id number], [id number], [id number] #### [facility] [address], [place] [address]ZC Coag (PPP) [Time]13.4 second(s)High10.2-12.9Keenan Private HospitalComment on above:Performed By: #### [id number], [id number], [id number], [id number], [id number] #### [facility] [address], [place] [address]qBPE Coag (PPP) [Time]25.4 second(s)Xvlawa54.1-36.5FOhio Valley HospitalComment on above:Result Comment: Heparin therapeutic range (represented by Anti-Factor Xa activity of 0.2 - 0.4 U/mL) corresponds to PTT of 56.6 - 109.0 sec.Performed By: #### [id number], [id number], [id number], [id number], [id number] #### [facility] [address], [place] [address]Fgxixeaw 0 Hr.on 71-08-9579Iiwgaadu I.cardiac [Mass/Vol]8.10 pg/mLLow10.10-27.10Keenan Private HospitalComment on above:Result Comment: The 95% CI (Confidence Interval) PPV (Positive Predictive Value) for myocardial infarction in females is 38 pg/mL, in males 51 pg/mL. The results should be used in conjunction with clinical conditions of myocardial infarction. (Access High Sensitivity Troponin I Instructions For Use, Gwendolyn Preet, May 2018)Performed By: #### [id number], [id number], [id number], [id number], [id number] #### [facility] [address], [place] [address]ZF Chest Single Viewon 07-14-2444LL Chest Single ViewExam Date/Time: 02/24/2022 08:44 EDT [...] 02/24/2022 11:58 am EDT, Trevon Tyler M.D., [facility] Vital Signs Date TimeVital SignValuePerforming SdsvjozrhQlhxmjwi96-89-1957 11:35-0400 Diastolic blood covevxzm86 mm[Hg]Lacey Frey MD Work Phone: [phone]10-22-2025 11:35-0400 Heart rate68 /minLacey Frey MD Work Phone: [phone]10-22-2025 11:35-0400 Systolic blood agpossqg760 mm[Hg]Lacey Frey MD Work Phone: [phone]10-22-2025 11:27-0400 Body lhahol151.48 cmLacey Frey MD Work Phone: [phone]10-22-2025 11:27-0400 Body mass index (BMI) [Ratio]23.3 kg/t7RwszceLacey Frey MD Work Phone: [phone]10-22-2025 11:27-0400 Body uarnbc44.05 kgLacey Frey MD Work Phone: [phone]10-06-2025 11:44-0400 Diastolic blood hkjuomlt56 mm[Hg]Lacey Frey MD Work Phone: [phone])[address] [place], [place] [address]10-06-2025 11:44-0400 Heart rate55 /Chico Frey MD Work Phone: [phone])[address] [place], [place] [address]2410-06-2025 11:44-0400 Systolic blood ehcxwdnf556 mm[Hg]Lacey Frey MD Work Phone: [phone])[address] [place], [place] [address]10-06-2025 11:29-0400 Body ptzsuq682.48 cmLacey Frey MD Work Phone: [phone])[address] [place], [place] [address]10-06-2025 11:29-0400 Body mass index (BMI) [Ratio]23.4 kg/s3AmyvtcLacey Frey MD Work Phone: [phone])[address] [place], [place] [address]10-06-2025 11:29-0400 Body eihumz87.2 Ed Frey MD Work Phone: [phone])[address] [place], [place] [address]522408-04-2025 13:31-0400 Diastolic blood rqasnsvc28 mm[Hg]Lacey Frey MD Work Phone: 1(979)[address] [place], [place] [address]2408-04-2025 13:31-0400 Systolic blood dxafgfjx865 mm[Hg]Lacey Frey MD Work Phone: [phone])[address] [place], [place] [address]522408-04-2025 13:21-0400 Body fagbsb190.48 cmLacey Frey MD Work Phone: [phone] [place], [place] [address]2408-04-2025 13:21-0400 Body mass index (BMI) [Ratio]24 kg/s3BpnlykLacey Frey MD Work Phone: 1(659)[address] [place], [place] [address]2408-04-2025 13:21-0400 Body uafhgt43.56 Ed Frey MD Work Phone: 1(155)[address] [place], [place] [address]08-04-2025 13:21-0400 Heart rate57 /Chico Frey MD Work Phone: [phone]08-04-2025 13:21-0400 Respiratory rate12 /Chico Frey MD Work Phone: [phone]08-04-2025 13:21-0400 SaO2% (BldA) [Mass fraction]97 %Lacey Frey MD Work Phone: [phone]07-07-2025 11:21-0400 Body .48 cmLacey Frey MD Work Phone: [phone])[address]07-07-2025 11:21-0400 Body mass index (BMI) [Ratio]24.1 kg/p9BuxnftLacey Frey MD Work Phone: [phone]07-07-2025 11:21-0400 Body akgmhi45.87 kgLacey Frey MD Work Phone: [phone]07-07-2025 11:21-0400 Diastolic blood mm[Hg]Lacey Frey MD Work Phone: 1(901)[address] [place], [place] [address]07-07-2025 11:21-0400 Heart rate57 /Chico Frey MD Work Phone: 1(891)[address] [place], [place] [address]07-07-2025 11:21-0400 SaO2% (BldA) [Mass fraction]97 %Lacey Frey MD Work Phone: [phone])[phone]07-07-2025 11:21-0400 Systolic blood rfudkfba116 mm[Hg]Lacey Frey MD Work Phone: [phone])[address]04-29-2025 14:26-0400 Body .48 cmCos[facility]04-29-2025 14:26-0400Body mass index (BMI) [Ratio]23.9 kg/c7UifmvheuxCoshocton Regional Medical Center04-29-2025 14:0400Body niiohj03.42 kgCoshocton Regional Medical Center04-29-2025 14:26-0400Diastolic blood feuujety78 mm[Hg][facility] 02-04-2025 14:26-0400Heart rate58 /[facility] 02-04-2025 14:-0400Systolic blood mm[Hg][facility]03-20-2025 13:02-0400Body .48 cmCos[facility]cton [facility]03-20-2025 13:02-0400Body mass index (BMI) [Ratio]24.7 kg/o8NfcuklrnoCoshocton Regional Medical Center03-20-2025 13:-0400Body evbxai04.46 kgCoshocton Regional Medical Center03-20-2025 13:02-0400Diastolic blood rlyaapfl03 mm[Hg] [facility]03-20-2025 13:-0400Heart rate69 /[facility]03-20-2025 13:-0400Systolic blood gwdifgms262 mm[Hg] [facility]02-10-2025 13:05-0500Body eckxmj422.48 cm [facility]02-10-2025 13:05-0500Body mass index (BMI) [Ratio]24 kg/s1QaabnclyiCoshocton Regional Medical Center02-10-2025 13:05-0500Body weight 59.56 kgCoshocton Regional Medical Center02-10-2025 13:05-0500Diastolic blood srbnnkow90 mm[Hg][facility]02-10-2025 13:05-0500Heart rate65 /[facility]02-10-2025 13:05-0500Systolic blood fiyuqwvs275 mm[Hg][facility]10-01-2024 14:24-0400Body byszww769.48 cmCoshocton [facility] Center10-01-2024 14:24-0400Body mass index (BMI) [Ratio]24.3 kg/b3GztypkcheCoshocton Regional Medical Center10-01-2024 14:24-0400Body balfhs25.46 kgCoshocton Regional Medical Center10-01-2024 14:24-0400Diastolic blood rcallxbz48 mm[Hg][facility] 07-09-2024 14:24-0400Heart rate57 /[facility] 07-09-2024 14:24-0400Systolic blood jidbdtqw039 mm[Hg][facility]07-30-2024 13:44-0400Body .48 cmCoshocton [facility] Center07-30-2024 13:44-0400Body mass index (BMI) [Ratio]23.8 kg/x5GqsauuxsdCoshocton Regional Medical Center07-30-2024 13:44-0400Body vditqc37.96 kgCoshocton Regional Medical Center07-30-2024 13:44-0400Diastolic blood appxkspa79 mm[Hg] [facility]07-30-2024 13:44-0400Heart rate61 /[facility]07-30-2024 13:44-0400Systolic blood mm[Hg] [facility]04-01-2024 11:43-0400Body hxyuyp323.48 cm [facility]04-01-2024 11:43-0400Body mass index (BMI) [Ratio]22.8 kg/r9QpmzdmrotCoshocton Regional Medical Center04-01-2024 11:43-0400Body doeqgd04.84 kgCoshocton Regional Medical Center04-01-2024 11:43-0400Diastolic blood cetxjgoc16 mm[Hg][facility]04-01-2024 11:43-0400 Heart rate61 /[facility]04-01-2024 11:43-0400Systolic blood xzxtkihq964 mm[Hg][facility]08-31-2023 14:30-0400 Body saibfu205.48 cmLacey Frey Other [employer] Other 08-31-2023 14:30-0400Body mass index (BMI) [Ratio] 23.13 kg/i0MmikzbLacey Frey Other [employer] Other 08-31-2023 14:30-0400Body .38 kgLacey Frey Other [employer] Other 08-31-2023 14:30-0400Diastolic blood uwxppbcp34 mm[Hg] Lacey Frey Other [employer] Other 08-31-2023 14:30-0400Respiratory rate16 /minLacey Frey Other [employer] Other 08-31-2023 14:30-0400Systolic blood mm[Hg] Lacey Frey Other [employer] Other 03-14-2023 15:20-0400Body hrmmpu324.48 cmAdavidtiago Watson Other [employer] Other 03-14-2023 15:20-0400Body mass index (BMI) [Ratio] 23.08 kg/m2Rox Shirley Other [employer] Other 03-14-2023 15:20-0400Body doiazhmbtdw96 [degF]Rox Watson Other [employer] Other 03-14-2023 15:20-0400Body rrrzah45.24 kgRox Shirley Other [employer] Other 03-14-2023 15:20-0400Diastolic blood ljcektpi02 mm[Hg] Adolfoaicha Dawnas Other [employer] Other 03-14-2023 15:20-0400Respiratory rate16 /minRox Shirley Other [employer] Other 03-14-2023 15:20-8487LpD2% (BldA) [Mass fraction]100 % Rox Watson Other [employer] Other 992729-12-5180 15:20-0400Systolic blood wkzwagyc271 mm[Hg] Rox Watson [facility] [employer] Other 847585-93-3404 10:12-0400Diastolic blood oubhkkvj53 mm[Hg] [facility]05-19-2022 10:12-0400Heart rate68 /[facility]05-19-2022 10:12-0400Respiratory rate15 /[facility]05-19-2022 10:12-8304QrP0% (BldA) [Mass fraction]98 %[facility]05-19-2022 10:12-0400Systolic blood mm[Hg][facility]05-19-2022 09:24-0400Diastolic blood xmgepjom58 mm[Hg][facility]05-19-2022 09:24-0400Heart rate66 /[facility]05-19-2022 09:24-0400Respiratory rate16 /[facility]05-19-2022 09:24-8676UaV0% (BldA) [Mass fraction]99 %[facility]05-19-2022 09:24-0400 Systolic blood pbnqhscy146 mm[Hg][facility] 02-24-2022 08:50-0400Diastolic blood mm[Hg][facility]05-19-2022 08:50-0400Systolic blood aqdqqaay352 mm[Hg][facility]05-19-2022 08:14-0400Body udldftxpygw49.24 [degF][facility]05-19-2022 08:14-0400Heart rate 74 /[facility]05-19-2022 08:14-0400 Respiratory rate18 /minC[facility]05-19-2022 08:14-4294UcQ2% (BldA) [Mass fraction]99 %[facility] Encounters Encounter DateEncounter TypeCare ProviderFacilityStart: 07-30-2025 End: 23-71-8231fczylxxmnaNdxebr E Braun MD [facility] Phone[facility] 07-30-2025 End: 29-34-4921Wkfjrao encounter procedureLacey Frey MD-[facility] Work Phone: Start: 07-14-2025 End: 25-76-6335ihxxhudhcuUeooby E Braun MD Work Phone: [facility] Work Phone: Start: 07-14-2025 End: 15-65-0436Ijxbkne encounter procedureLacey Frey MD-[facility] Work Phone: Start: 32-87-2272Sqh-patient / Non-visitMarandja Hurtado MD-[facility] Work Phone: Start: 33-41-8702Zgp-patient / Non-visitJames Wiley DO- [facility] Work Phone: Start: 28-79-3822Wrg-patient / Non-visitCatshahbaz Wilkinson CMAAC[facility] Work Phone: Start: 03-10-4564Wur-patient / Non-visitDennys Perez DO-[facility] Work Phone: Start: 05-12-2025 End: 50-02-6535sxdjcxnkqhLfpjdq E Braun MD Work Phone: [facility] Work Phone: Start: 05-12-2025 End: 33-35-3984Fqwsgsk encounter procedureLacey Fery MD-[facility] Work Phone: Start: 04-14-2025 End: 81-14-6623fkihntnanuRitvyj E Braun MD Work Phone: [facility] Work Phone: Start: 04-14-2025 End: 83-42-3947Csrfhzs encounter procedureLacey Frey MD-[facility] Work Phone: Start: 22-46-6034Qvk-patient / Non-visitCatshahbaz Wilkinson CMA-[facility] Work Phone: Start: 14-74-0058Wrg-patient / Non-visitAmy Jack LACY -[facility] Work Phone: Start: 02-12-2025 End: 98-33-6951jtbotzrxwbQVTNBEH [facility]: 02-04-2025 End: 56-68-2998spppkxjqeoMoypzxgkqSamaritan Hospital Work Phone: Start: 02-04-2025 End: 03-74-8722Gosrodv encounter procedureFirjoses Physician Group-[facility] Work Phone: Start: 02-03-2025 End: 62-97-5631Dqi-admission assessmentMoconchis Gregorio [facility] Start: 12-26-2024 End: 00-72-5370qcbsxmpccvFothldoplSamaritan Hospital Work Phone: Start: 12-26-2024 End: 45-71-9290Dvmplbb encounter procedureFirjoses Physician Group-[facility] Work Phone: Start: 90-87-3291Hqf-patient / Non-visitFirelands Physician [facility] Work Phone: Start: 53-57-8830Tjb-patient / Non-visitFirelands Physician Group-[facility] Work Phone: Start: 11-28-2024 End: 30-46-4187sqyneqyziuPRDWGOFlower Hospital Start: 11-18-2024 End: 18-40-8622nzoqcwbmxoEgaoitqzvSamaritan Hospital Work Phone: Start: 11-18-2024 End: 09-74-4198Ezqkxtu encounter procedureFirpyotes Physician Group-[facility] Work Phone: Start: 07-09-2024 End: 85-83-5858ftqrwzkcijFxsqkweddOhioHealth [facility] Work Phone: Start: 07-09-2024 End: 33-75-6262Kowmtsq encounter procedureFirlewisgale hospital [facility] Work Phone: Start: 06-28-2024 End: 35-89-4168jnispljrqxOONAIDJSelect Medical Specialty Hospital - Cincinnatitart: 76-34-9206Mrx-patient / Non-visitFirelands Physician GroupColumb[facility] Work Phone: Start: 27-24-8685Cqw-patient / Non-visitFirelands Physician Group-[facility] Work Phone: Start: 09-41-8448Frg-patient / Non-visitFirelands Physician GroupColumbia [facility] Work Phone: Start: 05-07-2024 End: 37-77-1004zuvclwxnosItjufiaypSamaritan Hospital Work Phone: Start: 05-07-2024 End: 56-54-8096Dwmnlvy encounter procedureFirlewisgale hospital [facility]gomery Physician GroupAC[facility] Work Phone: Start: 05-01-2024 End: 83-59-8174yodjxlzjbzAYYWBXWTrumbull Memorial Hospitaltart: 09-75-4811Hun-patient / Non-visitCarolinas [facility] Work Phone: Start: 03-28-2024 End: 97-77-3834mgdbbgeldpODFRGVASelect Medical Specialty Hospital - Cincinnatitart: 01-08-2024 End: 91-97-7947qcbicozlwfFbxjonqbfSamaritan Hospital Work Phone: Start: 01-08-2024 End: 70-30-3653Mrsjfof encounter procedureCarolinas [facility] Work Phone: Start: 98-65-3227Osv-patient / Non-visitCarolinas [facility] Work Phone: Start: 06-08-2023 End: 31-77-5095lajfbczaorXfrvoc Frey Other [employer] Other Start: 97-29-2408Csmawe outpatient visit 15 minutes [facility]: 05-25-2023 End: 98-99-7079mjceuuyidaZnysxf Frey Other [employer] Other Start: 55-43-8743Hbvzqahim encounterMarcia [facility] Hospitaltart: 04-25-2023 End: 63-66-3347xdbjuiqmvcCwisha Frey Other [employer] Other Start: 31-05-1843Iwmfzsdfg encounterMarcia [facility] Hospitaltart: 03-23-2023 End: 75-48-8874ysherlhkvtMggmbb Frey Other [employer] Other Start: 92-73-4993Kawjkvvcg encounterMarcia [facility] Hospitaltart: 02-20-2023 End: 23-14-0169yqgiaqxpazJtdkxc Frey Other [employer] Other Start: 62-54-0602Otlfbiywy encounterLacey Rubio [facility] ClinicStart: 01-17-2023 End: 20-06-2814ujuanuqaahFjhmzf Frey Other [employer] Other Start: 27-34-4418Hqxqtrenz encounterMareverett FreyPuma [facility] ClinicStart: 12-20-2022 End: 40-79-4274doilsruqotFzze Bakhous Other [employer] Other Start: 97-50-0321HRHU visit new Luisito WatsonPuma NephrologyStart: 12-19-2022 End: 06-45-6991cwjqnpmghiCtgeri Frey Other [employer] Other Start: 18-09-2869Hjjepyxyx encounterMareverett Rubio [facility] ClinicStart: 12-10-2022 End: 17-49-7266ukxrhxbbawODNUKXM BOESFacility:M2Mdzps: 11-15-2022 End: 82-74-0991iuunrrlswuTB GEORGIE WELLERFacility:D2Tjfmx: 10-09-2022 End: 26-30-9680reiuqyvpwmKS JAMES WILEY .Facility:J4Qlrai: 09-30-2022 End: 31-95-8993yisgnechmmDBJSW PARKERFacility:D6Cfuaf: 09-26-2022 End: 00-05-4699jibimthiudOE HARJINDER RAMIREZFacility:Z7Qyalj: 09-21-2022 End: 56-73-3625lwvltjtzfiMN LACEY FREYFacility:S2Qmedf: 09-18-2022 End: 42-50-1370nldlrvlhxyBR GEORGIE WELLERFacility:B9Ttlwk: 09-11-2022 End: 96-83-0988ypvpdsjrgqFE JAMES PuentesFacility:O8Xzpyg: 09-03-2022 End: 15-89-4766dyhkxcwhdgQINLN PARKERFacility:J8Ibiei: 09-03-2022 End: 53-60-2380chljjplymqBQ JAMES WILEY .Facility:R1Eaqif: 08-30-2022 End: 88-67-7589srzowmzpdvLE LACEY E BRAUNFacility:L9Twkgz: 08-26-2022 End: 88-40-1804nvktefbxqzYI LACEY E BRAUNFacility:F2Zyddn: 08-24-2022 End: 63-37-4339bbgpodaevjHQ LACEY E BRAUNFacility:G9Tlejg: 08-17-2022 End: 02-15-2256slckdkeezdRC LACEY E BRAUNFacility:S0Okxjo: 07-02-2022 End: 55-95-8166lloagcgpeaJH LACEY E BRAUNFacility:X8Jpdhq: 04-15-2022 End: 14-97-7956inmvbenolbAS LACEY E BRAUNFacility:P6Qvxui: 00-44-0261ymacihiwnu AALIYAH BOESFacility:A2Garxi: 04-06-2022 End: 96-27-7047zfuuvimmfcSKLTHPM ALGHOTHANIFacility:D0Jpvdp: 03-17-2022 End: 79-36-8876gdlmifzbsoUB LACEY E BRAUNFacility:S8Iavaa: 02-24-2022 End: 48-40-6816Scmefzxcr department patient visitAstrit [facility] Plan of Treatment DateCare ActivityDetailAuthorStart: 77-96-3041Czefvsh referral[facility] Work Phone: [facility] referralAccess [facility] Work Phone: [place].doppler Carotid arteries - bilateralCoshocton Regional Medical CenterXR Chest 2 ViewsAdventhealth Central Pasco Er Payers DatePayer CategoryPayerPolicy [id number] [id number]-[id number] [id number] 2.16.840.1.474936.3.579.2.95326-73-3495 [id number] 2.16.840.1.739863.3.57[id number] 2.16.840.1.993202.3.57[id number] 2.16.840.1.880802.3.57[id number] 2.16.840.1.951321.3.57[id number] 2.16.840.1.675570.3.57[id number] 2.16840.1.581569.3.57[id number] 2.16.840.1.214242.3.579.[id number] 2.16.840.1.261702.3.57[id number] 2.16.840.1.241764.3.57[id number] 2.16.840.1.671086.3.57[id number] 2.16.840.1.816065.3.57[id number] 2.16.840.1.185893.3.57[id number] 2.16.840.1.109692.3.57[id number] 2.16.840.1.534371.3.57[id number] 2.16.840.1.153937.3.57[id number] 2.16.840.1.841445.3.57[id number] 2.16.840.1.263932.3.57[id number] 2.16.840.1.16[id number] 2.16.840.1.848947.19Unknown [id number] Social History DateTypeDetailFacilityTobacco smoking statusUnknown if ever smokedAccess [facility]: [id number] [facility]T[facility] smoking status NHISUnknown if ever smokedAccess Hospital [place] Work Phone: Start: 02-24-2022 End: 25-66-1512RzyUmwrjy (finding)[facility] status[facility] Start: 46-39-0275Smuzyrl smoking status NHISSmokes tobacco daily (finding)[facility] Clinical Notes 02-24-2022 to 05-12-2025 Note Date & [id number] Evaluation note* Diagnosis Onset Date Resolution Status Admit Date Medicare annual wellness visit, subseque nt acuteAugust 2024 1:20pmResistant hypertensionacuteAugust 2024 1:20pm Tobacco dependence syndromeacuteAugust 2024 1:20pmPneumoniaacuteOctober 2024 11:19am [facility] Work Phone: 1(836) 994-815308-04-2025 Evaluation note* Diagnosis Onset Date Resolution Status Admit Date Medicare annual wellness visit, breana clemente acuteAugust 2024 1:20pmResistant hypertensionacuteAugust 2024 1:20pm Tobacco dependence syndromeacuteAugust 2024 1:20pmAnxietyacuteOctober 2024 11:19amHypertensionacuteOctober 2024 11:19amPneumoniaacuteOctober 2024 11:19amPilonidal cystacuteOctober 2024 11:17am [facility] Work Phone: 1(457) 230-947207-07-2025 Evaluation note* Diagnosis Onset Date Resolution Status Admit Date Resistant hypertension acuteJuly 2024 11:18am [facility] Work Phone: 1(254) 297-974605-07-2025 NoteUT Cardiology - [facility] Subjective Zoraida Barrios is [...] to the emergency room at the [facility] with elevated blood pressure reading. [...] Take 1 ta (more content not included)... [facility]05-07-2025 NotePatient here for a 3 [...] or heart burn. Review of Systems Constitutional: Negative.[facility]04-29-2025 Evaluation note* Diagnosis Onset Date Resolution Status Admit Date Objective pulsatile tinnitus of both ear s acuteApril 2024 2:23pmResistant hypertensionacuteApril 2024 2:23pm [facility] Work Phone: [phone] NoteUT Cardiology - [facility] Subjective Zoraida Barrios is [...] to the emergency room at the [facility] with elevated blood pressure reading. [...] normal, troponin high-sensitivity 8.8, (more content not included)...[facility]02-10-2025 Evaluation note* Diagnosis Onset Date Resolution Status Admit Date Resistant hypertension acuteNovember 18, 2024 1:01pmObjective pulsatile tinnitus of both earsacute December 26, 2024 12:58pmResistant hypertensionacuteDecember 26, 2024 12:58pm [facility] Work Phone: 1(376) 389-380402-10-2025 Evaluation note* Diagnosis Onset Date Resolution Status Admit Date Resistant hypertension acuteFe2024 1:01pmChronic kidney disease, stage 3bacuteDecember 26, 2024 12:58pmObjective pulsatile tinnitus of both earsacuteDecember 26, 2024 12:58pmResistant hypertensionAt[facility] 2024 12:58pm [facility] Work Phone: 1(972) 436-172109-20-2024 NotePer assessment heart rates in the 50s No concerning symptoms at this time We will continue to monitor Discussed with patient to call office for any lightheadedness, dizziness, passing out she voiced understandingUnHolmes County [facility] 06-28-2024 NoteHypertension is stable for her blood pressure log is very well- controlled in office is always elevated most likely related to whitecoat syndrome Continue medicines as prescribed including carvedilol, clonidine, hydralazine, losartan, spironolactone Renal function stableUnHolmes County [facility]omerene [facility] Hospital09-20-2024 Notestable [facility]09-20-2024 NoteUTP CARDIOLOGY PROGRESS NOTE HPI: [...] passing out she voiced understanding RTC 6 [facility] NotePt is here for three month follow up. Pt denies sob, chest pain, palpatations. Pt says one of her medications makes her dizzy but she does not know which one. Review of Systems Constitutional: Positive for diaphoresis (1 episode). Neurological: Positive for excessive daytime sleepiness (intermittent). All other systems reviewed and are negative.[facility] 05-01-2024 NoteHypertension is quite variable [...] Vit D, Thyroid function and Vitamin B levels.[facility]07-24-2024 NoteCurrently stable [facility]07-24-2024 NotePt reports having noted heart rate 49-50's, and denied any significant symptoms associated. Will continue to monitor and D/W pt to call office for lightheadedness, dizziness, near syncope or syncope and she voiced understandingMetroHealth [facility]07-24-2024 NoteUTP CARDIOLOGY PROGRESS NOTE HPI: Zoraida Barrios is a 88 y.o. female here for hospital F/U HPI 88 yo female presents today for hospital F/U after recent evaluation for bradycardia Patient here for follow up [facility] ED. Says she went shopping with a [...] negative ED note- Patient: ZORAIDA BARRIOS MR#: [id number] : 1935 Acct:[id number] Age/Sex: 88 / F ADM Date: 04/25/24 [...] place, and time. P (more content not included)...[facility]07-24-2024 NotePatient here for follow up [facility] ED. Says she went shopping with a [...] (intermittent). All other systems reviewed and are negative.[facility] 03-28-2024 NoteStable Continue aldactone, fluid restriction and low sodium diet Continue regular exercise and activityUnHolmes County [facility] 03-28-2024 NoteWell controlled with aldactone currently no edemaUnHolmes County [facility]06-20-2024 NoteHypertension is unchanged. Dietary sodium restriction. Continue current medications. Blood pressure will be reassessed in 3 months.[facility]06-20-2024 NotePatient here for 2 mo follow up hypertension and diastolic dysfunction. She had routine labs in January 2024. She denies chest pain, SOB, palpitations, and syncope. Sometimes gets lightheaded upon standing up. Review of Systems Neurological: Positive for excessive daytime sleepiness and light-headedness. All other systems reviewed and are negative.[facility] 03-28-2024 NoteUTP CARDIOLOGY PROGRESS NOTE [...] - with her evening/bedtime meds, she voiced understandingMet[facility]Health [facility]08-31-2023 Evaluation note* Encounter Date Diagnosis Assessment Notes Treatment Notes Treatment Clinical Notes May, Other insomnia (ICD-10 - G47.09) Pt states the ativan does help her insomnia and bp. Denies over-sedation symptoms. May,Resistant hypertension (ICD-10 - I10)Established w [facility] Cardiology. Recommend taking meds daily and keeping record and discussing bps w her provider there. [employer] Other 03-14-2023 Evaluation note* Encounter Date Diagnosis [...] pressure monitor reveals significantly better blood pressure [employer] Other [id number] Evaluation + Plan noteExtracted from:Title: ED NoteAuthor:Norma [...] Hr. XR Chest Single View [facility]05-19-2022 Hospital Discharge instructions Patient Education 02/24/2022 [...] care provider. This is important. Medicines Take [id number] and prescription medicines only as told by [...] 09/25/2006 Document Revised: 06/05/2019 Document Reviewed: 06/05/2019 [employer] Patient Education 2020 [employer]. Follow Up Care 02/24/2022 08:13:52 With:LACEY FREY Address: [address] [place], [place] [id number]- Business (1) When:02/27/2022 10:23:00 Comments:Increase Losartan to 100 mg a day. Continue Metoprolol 50 mg a day. Make sure to take your blood pressure twice a day and follow-up with Dr. Frey tomorrow at 1 PM at her office. Return to the emergency room if your headache recurs, chest pain, dizziness or any new symptoms. [facility] HospitalEvaluation noteNo InformationNortChester County Hospital [facility] Other Evaluation noteNo assessment information available [facility] Work Phone: Evaluation note* Diagnosis Onset Date Resolution Status Chronic kidney disease, stage 3b acuteResistant hypertensionacuteWeight gain, abnormalacute [facility] Work Phone: History general Narrative - Reported* Type Description Date Medical History HYPERTENSION Medical HistoryRENAL IMPAIRMENTMedical HistoryTOBACCO DEPENDENCE SYNDROME Surgical HistoryTUBAL LIGATIONSurgical HistoryCHOLECYSTECTOMYHospitalization HistorySEE ABOVE [facility] Other Hospital course Narrative No data available for this section [facility] Discharge instructionsAmbulatory Orders* Referral to Vascular Surgery Time Frame: 12/26/24, Location: None Selected [facility] Work Phone: Hospital Discharge instructions No data available for this section [facility] Progress note No data available for this section [facility] Reason for referral (narrative)No reason for referral information availableAccess [facility] Work Phone: Summary Purpose Family History Relationship [...] section and content) DATE CREATED AUTHOR 03/05/2022 [facility] DATE CREATED AUTHOR AUTHOR'S ORGANIZ ATION 12/13/2022 [facility] DATE CREATED AUTHOR AUTHOR'S ORGANIZ ATION 02/15/2025 [facility] REASON FOR VISIT (unrecogniz ed [...] Provider Active Start: May 11, 2024 [facility] ProviderActiveStart: May 11, 2024 Team Status: Active [...] 24, 2024 Maria Isabel Hurtado [facility] [place] ProviderActiveStart: December 24, 2024 Team Status: Inactive [...] BE BASED ON THE PRIMARY CLINICAL RECORDS. [facility] [employer] [facility] provides no warranty or guarantee of the accuracy or completeness of information in this document.
--- NOTE | 2025-08-19 12:35 | CT_ITS ---
The [address] [address] Patient Name: ZORAIDA GAYTAN MRN: [id number] date: 1935 Sex: F Assigned Patient Location: CT Current Patient Location: CT Accession/Order Number: [id number] Exam Date: 08/19/2025 14:17 Report Date: 08/19/2025 18:59 At the request of: LACEY FREY MD Procedure: CT abdomen pelvis w con CT ABDOMEN AND PELVIS WITH INTRAVENOUS CONTRAST: CLINICAL HISTORY: Mass Of Left Adrenal Gland COMPARISON: CT chest 08/06/2025 TECHNIQUE: Spiral images were obtained through the abdomen and pelvis following the administration of intravenous contrast. This CT exam was performed using one or more following dose reduction techniques: Automated exposure control, adjustment of the mA and/or kV according to patient size, or use of iterative reconstruction technique. FINDINGS: Lung Bases: [Bibasilar atelectasis and or scarring.] Organs:There is redemonstration of soft tissue thickening left renal pelvis and upper pole calyx. There is diminutive enhancement involving the upper pole calyx/pelvis noted which may raise possibility for urothelial neoplasm.[Bilateral renal hypodensities noted smaller lesions are too small for adequate characterization. The larger renal hypodensities are compatible with cysts. 1.4 x 2.3 cm heterogeneous enhancing left adrenal nodule, indeterminate Right adrenal gland, , spleen, liver unremarkable. Gallbladder is absent. GI: Mild to moderate retained stool throughout the colon. No bowel obstruction.[Colonic diverticulosis. Appendix not visualized. Pelvis:[Uterus unremarkable. No adnexal mass.] Bladder mostly collapsed. No bladder wall thickening or definite nodularity. Peritoneum/Retroperitoneum:Moderate plaque involving the nonaneurysmal aorta.[No free air or free fluid. There are prominent periaortic lymph nodes noted subcentimeter in size are nonspecific. Abd wall/Bones:Degenerative changes. No suspicious osseous lesions. Anterolisthesis of the lumbosacral junction noted.[ CT/CT abdomen pelvis w con IMPRESSION: Redemonstration of the soft tissue thickening involving the superior pole calyx and pelvis left kidney worrisome for a neoplastic process. Correlate with urine cytology. Recommend urological consultation. Left adrenal nodule, indeterminate. Subcentimeter preaortic lymph nodes noted age-indeterminate. Close attention on follow-up imaging recommended. Impression dictated by: Rajesh Jiménez M.D. 08/19/2025 6:59 PM Dictation Location: [place] [address] Electronically authenticated by: [id number] Y Date: 08/19/2025 18:59
== END 2025-08-19 12:28 | disposition home or self-care (01) ==
LOC: CT 12:27
PROVIDERS: PCP Family Medicine; Visit Provider Family Medicine
DX: E27.8 Other specified disorders of adrenal gland (principal); R93.89 Abnormal findings on diagnostic imaging of other specified body structures
CPT/HCPCS: 74177; Q9967

== ENCOUNTER 2025-09-19 11:18 | Emergency (ER) | payer MEDICARE, SELFPAY ==
[2025-09-19 11:23] VITALS: BP 240/100; PULSE 65; TEMP 36.4; O2SAT 97; BMI 23.4
--- NOTE | 2025-09-19 11:52 | ED.GENADUL1 ---
HPI HPI - General Adult General Chief complaint: Extremity Problem, Nontraumatic Stated complaint: LOWER EXTREMITY SWWLLING Time Seen by Provider: 09/19/25 11:26 Source: patient Mode of arrival: walk-in Limitations: no limitations History of Present Illness HPI narrative: 89-year-old female presented because she had some liquid which was clear squirt out of the small hole on her left lower leg and she was worried. She gives no history of any injury to that area. It happened today. She also reports she has a sore on her coccygeal area and she was on an antibiotic and she finished the antibiotic which had been prescribed by her PCP. No purulent drainage from it. Related Data Home Medications ?Medication ?Instructions ?Recorded ?Confirmed carvedilol 25 mg tablet 25 mg PO BID 12/28/23 08/09/25 lorazepam 0.5 mg tablet 0.5 mg PO Q12H PRN anxiety 12/28/23 08/09/25 hydralazine 100 mg tablet 100 mg PO Q8H 07/07/25 08/09/25 losartan 50 mg tablet 50 mg PO BID 07/07/25 08/09/25 buspirone 10 mg tablet 10 mg PO BID 08/09/25 08/09/25 Previous Rx's ?Medication ?Instructions ?Recorded clonidine HCl 0.2 mg tablet 0.2 mg PO BID #10 tabs 12/24/24 cephalexin 500 mg capsule 500 mg PO QID 10 days #40 caps 09/19/25 Allergies Allergy/AdvReac Type Severity Reaction Status Date / Time Sulfa (Sulfonamide AdvReac Mild rash Verified 07/13/25 08:30 Antibiotics) Review of Systems ROS Narrative A ten point review of systems is negative except as noted above. PFSH PFSH Social History Little interest or pleasure in doing things: not at all Feeling down, depressed, or hopeless: not at all Exam Narrative Exam Narrative: Nurses note and vital signs reviewed General:The patient appears well and in no apparent distress.Patient is resting comfortably on cart. Skin:Warm, dry, no pallor noted.There is no rash noted. Head:Normocephalic, atraumatic Eye: Normal conjunctiva, no drainage Ears, Nose, Mouth, and Throat: oral mucosa is moist. Nares patent. Cardiovascular: Not tachycardic Respiratory:Patient is in no distress, no accessory muscle use, lungs are clear to auscultation, no wheezing, rales or rhonchi Back:non-tender GI:Normal bowel sounds, no tenderness to palpation, no masses appreciated.No rebound, guarding, or rigidity noted. Musculoskeletal: There is a tiny area of erythema on her left lower leg anterior medially. There is no drainage or bleeding. No surrounding erythema. It appears to have been a very small varicosity. Additionally on her presacral area is an area of erythema and at the center is a tiny opening, few millimeters in diameter. There is no purulent drainage Neurological:A&O, normal speech Psychiatric:Cooperative Constitutional Vital Signs, click to edit/add: Last Vital Signs Temp 97.5 F L 09/19/25 11:23 Pulse 65 09/19/25 11:23 Resp 22 H 09/19/25 11:23 BP 240/100 H 09/19/25 11:23 Pulse Ox 97 09/19/25 11:23 O2 Del Method Room Air 09/19/25 11:23 Course Vital Signs Vital signs: Vital Signs Temperature 97.5 F L 09/19/25 11:23 Pulse Rate 65 09/19/25 11:23 Respiratory Rate 22 H 09/19/25 11:23 Blood Pressure 240/100 H 09/19/25 11:23 Pulse Oximetry 97 09/19/25 11:23 Oxygen Delivery Method Room Air 09/19/25 11:23 Temperature 97.5 F L 09/19/25 11:23 Pulse Rate 65 09/19/25 11:23 Respiratory Rate 22 H 09/19/25 11:23 Blood Pressure 240/100 H 09/19/25 11:23 Pulse Oximetry 97 09/19/25 11:23 Oxygen Delivery Method Room Air 09/19/25 11:23 Medical Decision Making MDM Narrative Medical decision making narrative: The patient was reassured about her leg. There is no evidence of an infection there. The patient however will be placed on Keflex because of the presacral area and she will follow-up promptly with her family doctor. Treatment diagnosis and follow-up were discussed with the patient. Discharge Plan Discharge Chief Complaint: Extremity Problem, Nontraumatic Clinical Impression: Leg wound, left, Decubitus ulcer of sacral area Patient Disposition: Home, Self-Care Time of Disposition Decision: 11:43 Condition: Good Mode of Transportation: Private Vehicle Prescriptions / Home Meds: New cephalexin 500 mg capsule 500 mg PO QID 10 Days Qty: 40 0RF No Action clonidine HCl 0.2 mg tablet 0.2 mg PO BID Qty: 10 0RF losartan 50 mg tablet 50 mg PO BID hydralazine 100 mg tablet 100 mg PO Q8H buspirone 10 mg tablet 10 mg PO BID carvedilol 25 mg tablet 25 mg PO BID lorazepam 0.5 mg tablet 0.5 mg PO Q12H PRN (Reason: anxiety) Print Language: Nepalese Instructions: Wound Healing and Your Diet (ED), Pressure Injury (ED) Referrals: Amelia Trinh MD [Primary Care Provider, Family Practice] - 1 week
--- NOTE | 2025-09-19 11:59 | PC.NURSE ---
pt states woke up and left lower leg was draining. Sore noted to left lower leg. No drainage from the sore at this time. pt c/o wound on sacral area. has seen pcp for wound.
--- OUTSIDE RECORDS SUMMARY | 2025-09-19 12:12 | XMS_ITS | CCD ---
Author Organization [facility] Care Team Providers Care Computer Applications Engineer Name Role Phone LACEY FREY Primary Care [...] TK, DR LACEY Ashton Primary Care Unavailable SYLVIA, DR BERTHA Logan Consulting Unavailable ALGHOTHANI, MOHAMAD Consulting Unavailable Lacey Frey Unavailable Adolfo Watsonaicha Unavailable MISSY BAUER Attending Unavailable VIRGILIO, AALIYAH Attending Unavailable VIRGILIO, AALIYAH Attending Unavailable VIRGILIO, AALIYAH Attending Unavailable EDVIN LISA Attending Unavailable Lacey Frey MD Primary Care Provider [phone] Lacey Frey MD Attending Provider Daphne Emanuel PA-C Attending Provider Unavailable Valencia Wilkinson CMA Attending Provider UnavailLacey Rodriguez MD Primary Care Provider Lacey Frey MD Attending Provider Lacey Frey MD Primary Care Provider Lacey Frey MD Attending Provider [phone] Dennys Aguilar DO Attending Provider [phone] Valencia Wilkinson CMA Attending Provider Unavaila abebe Wiley DO James Daisha Attending Provider Maria Isabel Hurtado MD Attending Provider [phone] Allergies Allergy ClassificationReported Allergen(s)Allergy TypeDate of OnsetReaction(s) Facility (2 sources)Sulfonamides (Antibiotic); Translations: [sulfa drugs]Drug allergy [facility] (2 sources)Sulfonamides (Antibiotic)Drug allergy (disorder)[facility] (10 sources)Substance with sulfonamide structure and antibacterial mechanism of action (substance)[facility] Other (1 source)Spironolactone; Translations: [SPIRONOLACTONE]Drug [id number] [facility] Repository (1 source)Sulfonamides (Antibiotic); Translations: [SULFA (SULFONAMIDE ANTIBIOTICS)]Propensity to adverse reactions to drug (disorder)06-22-2022 [facility] Repository Medications Current Medications MedicationDrug Class(es)DatesSig (Normalized)Sig (Original)amLODIPine 5 mg oral tablet (10 sources)Dihydropyridine Calcium Channel Blockertake 1 tablet by mouth every twenty-four hoursbusPIRone hydrochloride 10 mg oral tablet (1 source)Start: 92-08-3359taer 1 tablet by mouth twice dailyBuspirone 10 [...] meal/food Complies with drug therapyStart: 01-08-2024 End: 43-95-5696qatt 1 tablet by mouth twice daily at mealtimetake 1 tablet by mouth every twelve hourscloNIDine hydrochloride 0.2 mg oral tablet (20 sources)Central alpha-2 Adrenergic AgonistStart: 04-14-2025 End: 34-93-9799yaxw 1 tablet by mouth twice dailyClonidine Hcl 0.2 mg tablet Active 0.2 MG PO Twice daily 180 0 June 10, 2025 2:25pm Complies with drug therapyStart: 11-18-2024 End: 16-15-1629qlda 1 tablet by mouth once daily in the morningStart: 01-08-2024 End: 07-24-4045godb 1 tablet by mouth twice dailytake 1 tablet by mouth every twelve hoursfurosemide 20 mg oral tablet (10 sources)Loop DiuretichydrALAZINE hydrochloride 50 mg oral tablet (20 sources)Arteriolar VasodilatorStart: 31-08-2633vuzu 2 tablets by mouth three times dailyHydralazine 50 mg tablet Active 100 MG PO Three times daily February 04, 2025 4:03pm Complies with drug therapyStart: 12-26-2024 End: 54-29-5032wpiw 2 tablets by mouth twice dailyHydralazine 50 mg tablet Discontinued 100 MG PO Twice daily December 26, 2024 1:13pm February 04, 2025 4:04pmStart: 11-18-2024 End: 61-78-5844Putxagakqaq 50 mg tablet Discontinued 75 MG PO Twice daily November 18, 2024 2:39pm December 26, 2024 1:15pmStart: 01-05-2024 End: 69-97-4471tfow 2 tablets by mouth three times dailyHydralazine 50 mg tablet Discontinued 100 MG PO Three times daily January 05, 2024 12:00am 2024 2:40pmStart: 57-06-8209nbss 100 mg by mouth three times dailyHydralazine Active 100 MG PO Three times daily January 05, 2024 12:00amtake 2 tablets by mouth every eight hourshydrALAZINE HCl 50 MG 2 tablet with food Orally Three times a day Activelosartan potassium 50 mg oral tablet (20 sources)Angiotensin 2 Receptor BlockerStart: 70-99-6163ljti 1 tablet by mouth once dailyLosartan 50 mg tablet Active 50 MG PO Daily April 14, 2025 12:00am Complies with drug therapyStart: 01-08-2024 End: 90-46-4996tesu 1 tablet by mouth once dailyLosartan 100 mg tablet Discontinued 1 TAB PO Daily January 08, 2024 12:00am February 04, 2025 4:03pm F reeTextSi tablet Orally Once a day; Note: Source Status: Not-Taking\PRN; Provider: Eros Peñaloza ( )take 1 tablet by mouth every twenty- four hoursmetroNIDAZOLE 500 mg oral tablet (1 source)Nitroimidazole AntimicrobialStart: 80-53-0668jyyd 1 tablet by mouth twice dailyMetronidazole 500 mg tablet Active 500 MG PO Twice daily July 30, 2025 12:00am Complies with drug therapymicroencapsulated potassium chloride 10 meq extended release oral tablet (10 sources)take 1 tablet by mouth once daily at mealtime as needed Completed/Discontinued Medications MedicationDrug Class(es)DatesSig (Normalized)Sig (Original)aspirin 81 mg chewable tablet (6 sources)Platelet Aggregation Inhibitor, Nonsteroidal Anti-inflammatory Drug Start: 12-26-2024 End: 57-76-4835grxf 1 tablet by mouth once dailyAspirin 81 mg tablet,chewable Discontinued 81 MG PO Daily December 26, 2024 12:00am May 1251:26pm atorvastatin 40 mg oral tablet (6 sources)HMG-CoA Reductase InhibitorStart: 12-26-2024 End: 45-33-6482yxif 1 tablet by mouth once dailyAtorvastatin 40 mg tablet Discontinued 40 MG PO Daily December 26, 2024 12:00am May 12, 2025 1:26pm hydroCHLOROthiazide 25 mg oral tablet (7 sources)Thiazide DiureticStart: 11-18-2024 End: 15-29-9911lghq 1 tablet by mouth once dailyHydrochlorothiazide 25 mg tablet Discontinued 25 MG PO Daily 07 11November 18, 2024 1:00am February 04, 2025 4:02pmlevothyroxine sodium 0.05 mg oral tablet (19 sources)l-ThyroxineStart: 04-14-2025 End: 10-99-3455qppe 1 tablet by mouth once dailyLevothyroxine 50 mcg tablet Discontinued 50 MCG PO Daily April 14, 2025 12:00am May 12, 2025 1:26pm Start: 05-17-2024 End: 21-59-0468ydee 1 tablet by mouth once dailyLevothyroxine 50 mcg tablet Discontinued 50 MCG PO Daily 07 11June 19, 2024 11:42am 2023 2:12pmLORazepam 0.5 mg oral tablet (20 sources)BenzodiazepineStart: 01-05-2024 End: 45-28-6558ihdi 1 tablet by mouth twice daily as neededLorazepam 0.5 mg tablet Discontinued 0.5 MG PO Twice daily as needed January 05, 2024 12:00am 2023 11:51amStart: 28-60-3264asgj 1 tablet by mouth twice daily as [...] doesn't answer our phone calls. May, ActiveStart: 11-99-9529cazy 1 tablet by mouth once daily as neededLORazepam 0.5 MG TAKE 1 TABLET BY MOUTH EVERY DAY NEEDED for 30 days Apr, ActiveStart: 24-97-5085vgdf 1 tablet by mouth once daily as neededLORazepam 0.5 MG TAKE 1 TABLET BY MOUTH EVERY DAY NEEDED for 30 days Mar, ActiveStart: 79-51-7763pbdo 1 tablet by mouth once daily as needed LORazepam 0.5 MG TAKE 1 TABLET BY MOUTH EVERY DAY NEEDED for 30 days Jan, ActiveStart: 48-06-7082nzdm 1 tablet by mouth once daily as neededLORazepam 0.5 MG TAKE 1 TABLET BY MOUTH EVERY DAY NEEDED for 30 days Nov, Activespironolactone 25 mg oral tablet (20 sources)Aldosterone AntagonistStart: 01-08-2024 End: 58-47-6736kezj 1 tablet by mouth once daily Problems Active Problems Problem ClassificationProblemDateDocumented DateEpisodic/ChronicAnxiety disorders (3 sources)Anxiety disorder, unspecified; Translations: [Anxiety]Onset: 889590-25-8657YbivwkqUjfdbmh kidney disease (20 sources)Chronic kidney disease stage 3B ; Translations: [Chronic kidney disease, stage 3b]31-82-9749OsngkfeCpqgvuyt mellitus without complication (9 sources)Increased glucose level; Translations: [Other abnormal glucose] 41-05-9902MkakzkkpJavvcpzmr hypertension (20 sources)Essential hypertension; Translations: [Essential (primary) hypertension]Onset: 07-87-9174KwkzcwcAnnys valve disorders (1 source)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; Translations: [RHEUMATIC D/O AORTIC TRICUSPID VALV]Onset: 97-59-4618LyaosouSjwxhokkcsuh with complications and secondary hypertension (20 sources)Hypertensive urgency; Translations: [Hypertension secondary to other renal disorders]Onset: 87-07-5640ScuuebqYujikmzjaua chest pain (5 sources)Other chest pain; Translations: [Chest pain, unspecified]Onset: 90-95-3246VcgtkfcfUoiqw aftercare (1 source)Other mcc (current) drug therapy; Translations: [OTH SUPERVISOR FILTER ASSEMBLY 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 THERAPY]Onset: 25-00-5829DlawxvxbJfejj and ill-defined heart disease (3 sources)Other ill-defined heart diseases; Translations: [OTHER ILL-DEFINED HEART DISEASES]Onset: 60-64-2593UdccizgTfdhe ear and sense organ disorders (7 sources)Bilateral objective pulsatile tinnitus of ears; Translations: [Pulsatile tinnitus, bilateral]22-80-3405MnziecdvUyqyd ear and sense organ disorders (2 sources)Pulsatile tinnitus, bilateral; Translations: [Objective tinnitus] 88-66-8287YvjpmpnfLakkp lower respiratory disease (3 sources)Shortness of breath; Translations: [SHORTNESS OF BREATH]Onset: 62-24-8531UturujikHkyki nutritional; endocrine; and metabolic disorders (9 sources)Abnormal weight gain; Translations: [Abnormal weight gain]05-07-2024 EpisodicOther nutritional; endocrine; and metabolic disorders (2 sources)Abnormal weight gain; Translations: [Abnormal weight gain]05-07-2024 EpisodicOther screening for suspected conditions (not mental disorders or infectious disease) (1 source)Abnormal findings on diagnostic imaging of other specified body structures; Translations: [Abnormalchest x-ray]10-99-6723LwjqingVyjpf screening for suspected conditions (not mental disorders or infectious disease) (7 sources)Raised TSH level; Translations: [Other specified abnormal findings of blood chemistry]24-12-5840KmybjjgbFloxoepyu (except that caused by tuberculosis or sexually transmitted disease) (4 sources)Pneumonia; Translations: [Pneumonia, unspecified organism]07-14-2025 EpisodicResidual codes; unclassified (11 sources)Insomnia; Translations: [Other insomnia]29-85-9031OrkueddGzrpzfsy codes; unclassified (1 source)Other insomniaChronicResidual codes; unclassified (4 sources)Procedure and treatment not carried out due to patient leaving prior to being seen by health care provider; Translations: [PROC AND TX NOT CARRIED OUT PT LEAVE]Onset: 22-02-2501LsycqhrgXdtukjud codes; unclassified (1 source)Acquired absence of other specified parts of digestive tract; Translations: [ACQ ABSENCE OTH PART DIGESTV TRACT]Onset: 93-09-8989PlptsorwCxuh and subcutaneous tissue infections (2 sources)Pilonidal cyst; Translations: [Pilonidal cyst without abscess] 22-77-0379RrhbkhspJocgytuhz-related disorders (13 sources)Nicotine dependence, cigarettes, uncomplicated; Translations: [Tobacco dependence syndrome]Onset: 624669-15-1969TbdilawUwrjmqh (9 sources)Syncope; Translations: [Syncope and collapse]62-19-2747Jkpwkyyi Unclassified (1 source)CONTACT W/AND (SUSP) EXPOS COVID-19; Translations: [CONTACT W/AND (SUSP) EXPOS COVID-19]Onset: 09-28-2022 Past or Other Problems Problem ClassificationProblemDateDocumented DateEpisodic/ChronicCardiac dysrhythmias (2 sources)Bradycardia, unspecified; Translations: [Bradycardia, unspecified] Onset: 05-65-6755XfwabytoOfsmegj kidney disease (1 source)Chronic kidney diseaseComplications of surgical procedures or medical care (2 sources)Hypotension due to drugs; Translations: [Hypotension due to drugs] Onset: 39-57-8528VmvyqkqrRteqqzje codes; unclassified (3 sources)Localized edema; Translations: [LOCALIZED EDEMA]Onset: 07-20-2022 Episodic Results Test NameValueInterpretationReference RangeFacilityBasophils Auto (Bld) [#/Vol] Ordered By: Albert Bergman on 69-21-8291Bogwrtzvr (Bld) [#/Vol]0.2 10 3/uLHigh 0.0-0.1FUniversity Hospitals Conneaut Medical CenterBasophils/100 WBC Auto (Bld)Ordered By: Albert Bergman on 24-80-9670Uacgjjomc/100 WBC (Bld)2.8 %High0.2-2.0[facility], Cancer CenterEosinophils/100 WBC Auto (Bld)Ordered By: Albert Bergman on 12-70-8039Ogxzhtieevp/100 WBC (Bld)6.6 %0.9-7.0[facility], Cancer CenterErythrocyte distribution width Auto (RBC) [Ratio]Ordered By: Albert Bergman on 02-99-8551Rhvjjtpbrxz distribution width (RBC) [Ratio]14.6 %11.0-15.0 [facility] CenterGlobulin Calc (S) [Mass/Vol]Ordered By: Maria Isabel Hurtado on 11-26-1265Gjjrhaun (S) [Mass/Vol]3.0 g/dLOhiohealth Arthur G.H. Bing, Md, Cancer CenterGlomerular filtration rate (GFR) estimation in non- AmericanOrdered By: Albert Bergman on 31-12-5235YII/1.73 sq M.predicted among non-blacks MDRD (S/P/Bld) [Vol rate/Area]53 mL/min/{1.73_m2}Low>=60 mL/min/1.73m 2FUniversity Hospitals Conneaut Medical CenterHematocrit Auto (Bld) [Volume fraction]Ordered By: Albert Bergman on 84-23-5744Niyxxushtf (Bld) [Volume fraction]42.6 %36.0-48.0 [facility] CenterHemoglobin [Mass/volume] in BloodOrdered By: Albert Bergman on 22-58-1362Sdsudidftj (Bld) [Mass/Vol]13.9 g/dL12.0-16.0 [facility] CenterLaboratory - Chemistry and Chemistry - challengeOrdered By: Albert Bergman on 73-35-6594Rfyijnt [Mass/Vol]9.9 mg/dL 8.5-10.1FUniversity Hospitals Conneaut Medical CenterChloride [Moles/Vol]105 mmol/L98-107 [facility] CenterCO2 [Moles/Vol]28.0 mmol/L21.0-32.0[facility], Cancer CenterCreatinine [Mass/Vol]0.98 mg/dL0.55-1.02[facility], Cancer CenterGFR/1.73 sq M.predicted MDRD (S/P/Bld) [Vol rate/Area] mL/min/{1.73_m2}>=60 mL/min/1.73m 2FUniversity Hospitals Conneaut Medical CenterGlucose [Mass/Vol]149 mg/eULwmt28-829HglljfodcOhiohealth Arthur G.H. Bing, Md, Cancer CenterPotassium [Moles/Vol]3.8 mmol/L3.5-5.1FOhioHealth Shelby Hospitalodium [Moles/Vol] 141 mmol/G097-537RqanimnvsOhiohealth Arthur G.H. Bing, Md, Cancer CenterUrea nitrogen [Mass/Vol]22.0 mg/dLHigh7.0-18.0[facility], Cancer CenterUrea nitrogen/Creatinine [Mass ratio]22.4 mg/mgOhiohealth Arthur G.H. Bing, Md, Cancer CenterLaboratory - Chemistry and Chemistry - challengeOrdered By: Maria Isabel Hurtado on 79-03-9418Sgbptmn [Mass/Vol]3.3 g/dLLow3.4-5.0[facility], Cancer CenterALP [Catalytic activity/Vol]50 U/Z09-229NflkqvqnhOhiohealth Arthur G.H. Bing, Md, Cancer CenterALT [Catalytic activity/Vol]11 U/LLow 14-59Ohio[facility], Cancer CenterAST [Catalytic activity/Vol]14 U/GKce41-04 [facility] Cancer CenterBilirubin [Mass/Vol]0.6 mg/dL0.2-1.0[facility], Cancer CenterProtein [Mass/Vol]6.3 g/dLLow6.4-8.2FUniversity Hospitals Conneaut Medical CenterLaboratory - Hematology and Cell countsOrdered By: Albert Bergman on 29-86-5127Gqcnnwtu granulocytes/100 WBC (Bld)1.2 %High0.0-0.5FUniversity Hospitals Conneaut Medical CenterLeukocytes [#/volume] corrected for nucleated erythrocytes in Blood by Automated counOrdered By: Albert Bergman on 07-13-2025 WBC corrected for nucl RBC Auto (Bld) [#/Vol]6.7 10 3/uL4.0-11.0[facility], Cancer CenterLymphocytes Auto (Bld) [#/Vol]Ordered By: Albert Bergman on 67-00-7401Synxvcrsell (Bld) [#/Vol]2.2 10 3/uL1.2-3.8[facility], Cancer CenterLymphocytes/100 WBC Auto (Bld)Ordered By: Albert Bergman on 98-34-6274Pniggtaacdd/100 WBC (Bld)33.4 %20.5-60.0[facility] EastH Auto (RBC) [Entitic mass]Ordered By: Albert Bergman on 62-67-9092SIP (RBC) [Entitic mass]29.3 pg26.7-34.0[facility], Cancer CenterMCHC Auto (RBC) [Mass/Vol]Ordered By: Albert Bergman on 37-40-5534SKUB (RBC) [Mass/Vol]32.6 g/dL29.9-35.2FUniversity Hospitals Conneaut Medical CenterMCV Auto (RBC) [Entitic vol] Ordered By: Albert Bergman on 50-45-3983XZC (RBC) [Entitic vol]89.9 fL81.0-99.0 [facility], Cancer CenterMonocytes Auto (Bld) [#/Vol]Ordered By: Albert Bergman on 35-59-8338Fkowdkrzu (Bld) [#/Vol]0.7 10 3/uL0.3-0.8[facility], Cancer CenterMonocytes/100 WBC Auto (Bld)Ordered By: Albert Bergman on 09-40-9274Sxxxmxipf/100 WBC (Bld)10.3 %1.7-12.0[facility] Neutrophils Auto (Bld) [#/Vol]Ordered By: Albert Bergman on 23-92-2019Cenagfbosra (Bld) [#/Vol]3.1 10 3/uL1.4-6.5FUniversity Hospitals Conneaut Medical CenterNeutrophils/100 WBC Auto (Bld)Ordered By: Albert Bergman on 86-10-9780Pztzihvflbi/100 WBC (Bld) 45.7 %43.0-75.0[facility], Cancer CenterNo Panel InformationOrdered By: Albert Bergman on 99-70-3339Cebipiaxtzv # (Auto)0.4 10 3/uL0.0-0.7FUniversity Hospitals Conneaut Medical CenterImmature Granulocyte # (Auto)0.08 10 3/uLHigh0.00-0.03 [facility] Cancer CenterTroponin I High Sensitivity8.5 pg/mL4.0-51.3 [facility], Cancer CenterComment on above:CUT-OFF POINTS HAVE BEEN ESTABLISHED [...] (Bld) [Entitic vol]Ordered By: Albert Bergman on 61-03-5548Serpxhjv mean volume (Bld) [Entitic vol]11.2 fL9.5-13.5FUniversity Hospitals Conneaut Medical Center Platelets Auto (Bld) [#/Vol]Ordered By: Albert Bergman on 48-41-6512Pmignqdyj (Bld) [#/Vol]118 10 3/aXGgk220-407IealplymdOhiohealth Arthur G.H. Bing, Md, Cancer CenterRBC Auto (Bld) [#/Vol]Ordered By: Albert Bergman on 43-97-3586KIR (Bld) [#/Vol]4.74 10 6/uL4.20-5.40[facility] Hospitalerum or plasma albumin/globulin mass ratioOrdered By: Maria Isabel Hurtado on 13-14-5609Lbpbbzz/Globulin [Mass ratio]1.1 {ratio}[facility] Hospitalerum or plasma anion gap determination Ordered By: Albert Bergman on 10-54-9218Knoci gap [Moles/Vol]11.8 mmol/LFUniversity Hospitals Conneaut Medical CenterBasophils Auto (Bld) [#/Vol]Ordered By: James Wiley on 49-82-1403Ksdnaqwrz (Bld) [#/Vol]0.2 10 3/uLHigh0.0-0.1FUniversity Hospitals Conneaut Medical CenterBasophils/100 WBC Auto (Bld)Ordered By: James Wiley on 07-10-2025 Basophils/100 WBC (Bld)2.8 %High0.2-2.0[facility] Eosinophils/100 WBC Auto (Bld)Ordered By: James Wiley on 40-78-5063Hsbgegoikjt/100 WBC (Bld)5.4 %0.9-7.0[facility] Md, Cancer CenterErythrocyte distribution width Auto (RBC) [Ratio]Ordered By: James Wiley on 30-66-4321Rugbfxzkzhe distribution width (RBC) [Ratio]14.7 %11.0-15.0[facility] Globulin Calc (S) [Mass/Vol]Ordered By: James Wiley on 72-64-7836Vsobnrgf (S) [Mass/Vol]3.1 g/dLOhiohealth Arthur G.H. Bing, Md, Cancer CenterGlomerular filtration rate (GFR) estimation in non- AmericanOrdered By: James Wiley on 07-10-2025 GFR/1.73 sq M.predicted among non-blacks MDRD (S/P/Bld) [Vol rate/Area]56 mL/min/{1.73_m2}Low>=60 mL/min/1.73m 2FUniversity Hospitals Conneaut Medical Center Hematocrit Auto (Bld) [Volume fraction]Ordered By: James Wiley on 07-10-2025 Hematocrit (Bld) [Volume fraction]43.1 %36.0-48.0[facility], Cancer CenterHemoglobin [Mass/volume] in BloodOrdered By: James Wiley on 07-10-2025 Hemoglobin (Bld) [Mass/Vol]14.0 g/dL12.0-16.0[facility] Laboratory - Chemistry and Chemistry - challengeOrdered By: James Wiley on 35-60-1018Esgmitk [Mass/Vol]3.7 g/dL3.4-5.0[facility], Cancer CenterALP [Catalytic activity/Vol]56 U/T96-680HayuuquzhOhiohealth Arthur G.H. Bing, Md, Cancer CenterALT [Catalytic activity/Vol]12 U/KLxw11-37AmchmdnzdOhiohealth Arthur G.H. Bing, Md, Cancer CenterAST [Catalytic activity/Vol]21 U/T57-35Knxyiixyi Regional Medical CenterBilirubin [Mass/Vol]0.6 mg/dL0.2-1.0[facility], [facility] CenterCalcium [Mass/Vol]9.5 mg/dL8.5-10.1FUniversity Hospitals Conneaut Medical CenterChloride [Moles/Vol]105 mmol/L 98-107[facility], Cancer CenterCO2 [Moles/Vol]26.4 mmol/L21.0-32.0 [facility] CenterCreatinine [Mass/Vol]0.94 mg/dL0.55-1.02 [facility] CenterGFR/1.73 sq M.predicted MDRD (S/P/Bld) [Vol rate/Area]mL/min/{1.73_m2}>=60 mL/min/1.73m 2FUniversity Hospitals Conneaut Medical Center Glucose [Mass/Vol]114 mg/lHLqku29-671FkebwitouOhiohealth Arthur G.H. Bing, Md, Cancer CenterPotassium [Moles/Vol]3.6 mmol/L3.5-5.1FUniversity Hospitals Conneaut Medical CenterProtein [Mass/Vol] 6.8 g/dL6.4-8.2FOhioHealth Shelby Hospitalodium [Moles/Vol]142 mmol/L 136-145[facility], Cancer CenterUrea nitrogen [Mass/Vol]17.0 mg/dL 7.0-18.0[facility], Cancer CenterUrea nitrogen/Creatinine [Mass ratio] 18.1 mg/mgOhiohealth Arthur G.H. Bing, Md, Cancer CenterLaboratory - Hematology and Cell countsOrdered By: James Wiley on 94-83-2172Hyajzynz granulocytes/100 WBC (Bld)0.4 % 0.0-0.5FUniversity Hospitals Conneaut Medical CenterLeukocytes [#/volume] corrected for nucleated erythrocytes in Blood by Automated counOrdered By: James Wiley on 88-34-3244IEF corrected for nucl RBC Auto (Bld) [#/Vol]6.7 10 3/uL4.0-11.0 [facility], Cancer CenterLymphocytes Auto (Bld) [#/Vol]Ordered By: James Wiley on 26-72-3332Vrhqlomayxw (Bld) [#/Vol]1.7 10 3/uL1.2-3.8[facility], Cancer CenterLymphocytes/100 WBC Auto (Bld)Ordered By: James Wiley on 07-10-2025 Lymphocytes/100 WBC (Bld)25.6 %20.5-60.0[facility] EastH Auto (RBC) [Entitic mass]Ordered By: James Wiley on 23-11-6139KQZ (RBC) [Entitic mass]29.5 pg26.7-34.0[facility] Md, Cancer CenterMCHC Auto (RBC) [Mass/Vol] Ordered By: James Wiley on 91-02-8866ALNS (RBC) [Mass/Vol]32.5 g/dL29.9-35.2 [facility] Cancer CenterMCV Auto (RBC) [Entitic vol]Ordered By: James Wiley on 81-86-0128PFD (RBC) [Entitic vol]90.9 fL81.0-99.0[facility], Cancer CenterMonocytes Auto (Bld) [#/Vol]Ordered By: James Wiley on 07-10-2025 Monocytes (Bld) [#/Vol]0.9 10 3/uLHigh0.3-0.8[facility] Monocytes/100 WBC Auto (Bld)Ordered By: James Wiley on 56-35-6562Giimterek/100 WBC (Bld)13.2 %High1.7-12.0[facility], Cancer CenterNeutrophils Auto (Bld) [#/Vol]Ordered By: James Wiley on 32-83-2521Zclvzxocrdf (Bld) [#/Vol]3.5 10 3/uL 1.4-6.5FUniversity Hospitals Conneaut Medical CenterNeutrophils/100 WBC Auto (Bld)Ordered By: James Wiley on 57-64-4043Wnbcncmmomx/100 WBC (Bld)52.6 %43.0-75.0[facility] CenterNo Panel InformationOrdered By: James Wiley on 07-10-2025 Eosinophils # (Auto)0.4 10 3/uL0.0-0.7FUniversity Hospitals Conneaut Medical CenterImmature Granulocyte # (Auto)0.03 10 3/uL0.00-0.03[facility] Platelet mean volume Auto (Bld) [Entitic vol]Ordered By: James Wiley on 07-10-2025 Platelet mean volume (Bld) [Entitic vol]10.9 fL9.5-13.5FUniversity Hospitals Conneaut Medical CenterPlatelets Auto (Bld) [#/Vol]Ordered By: James Wiley on 07-10-2025 Platelets (Bld) [#/Vol]114 10 3/nHEax358-816ZnwhiqndeOhiohealth Arthur G.H. Bing, Md, Cancer CenterRBC Auto (Bld) [#/Vol]Ordered By: James Wiley on 20-29-2061TBM (Bld) [#/Vol]4.74 10 6/uL4.20-5.40[facility] Hospitalerum or plasma albumin/globulin mass ratioOrdered By: James Wiley on 89-37-1062Snlbgaw/Globulin [Mass ratio]1.2 {ratio}[facility] Hospitalerum or plasma anion gap determination Ordered By: James Wiley on 46-11-1692Aouai gap [Moles/Vol]14.2 mmol/LFUniversity Hospitals Conneaut Medical CenterBasophils Auto (Bld) [#/Vol]Ordered By: Dennys Aguilar on 82-23-6491Jdznrpyvd (Bld) [#/Vol]0.2 10 3/uLHigh0.0-0.1FUniversity Hospitals Conneaut Medical CenterBasophils/100 WBC Auto (Bld)Ordered By: Dennys Aguilar on 07-07-2025 Basophils/100 WBC (Bld)2.6 %High0.2-2.0[facility] Eosinophils/100 WBC Auto (Bld)Ordered By: Dennys Aguilar on 07-07-2025 Eosinophils/100 WBC (Bld)5.4 %0.9-7.0[facility] Erythrocyte distribution width Auto (RBC) [Ratio]Ordered By: Dennys Aguilar on 24-14-0919Hjyzwvjcdok distribution width (RBC) [Ratio]14.6 %11.0-15.0[facility], Cancer CenterGlomerular filtration rate (GFR) estimation in non- AmericanOrdered By: Dennys Aguilar on 58-49-1733QWN/1.73 sq M.predicted among non-blacks MDRD (S/P/Bld) [Vol rate/Area]49 mL/min/{1.73_m2}Low>=60 mL/min/1.73m 2[facility] CenterHematocrit Auto (Bld) [Volume fraction]Ordered By: Dennys Aguilar on 62-31-0107Tyrlbznwyy (Bld) [Volume fraction] 44.7 %36.0-48.0[facility], Cancer CenterHemoglobin [Mass/volume] in BloodOrdered By: Dennys Aguilar on 85-16-8913Tevxelzcyi (Bld) [Mass/Vol]14.4 g/dL 12.0-16.0[facility] CenterLaboratory - Chemistry and Chemistry - challengeOrdered By: Dennys Aguilar on 73-39-5220Amdsfwz [Mass/Vol]9.5 mg/dL 8.5-10.1FUniversity Hospitals Conneaut Medical CenterChloride [Moles/Vol]104 mmol/L98-107 [facility] CenterCO2 [Moles/Vol]27.2 mmol/L21.0-32.0[facility] CenterCreatinine [Mass/Vol]1.05 mg/dLHigh0.55-1.02[facility] CenterGFR/1.73 sq M.predicted MDRD (S/P/Bld) [Vol rate/Area]60 mL/min/{1.73_m2}>=60 mL/min/1.73m 2FUniversity Hospitals Conneaut Medical CenterGlucose [Mass/Vol]113 mg/xAKwbn28-692GdrvtjspoOhiohealth Arthur G.[facility]. [facility], Md, Cancer CenterNatriuretic peptide B (Bld) [Mass/Vol]418.0 pg/mL<=1800.0[facility] Potassium [Moles/Vol]3.8 mmol/L3.5-5.1FOhioHealth Shelby Hospitalodium [Moles/Vol]141 mmol/P363-849HorubpabbOhiohealth Arthur G.H. Bing, Md, Cancer CenterUrea nitrogen [Mass/Vol]17.0 mg/dL7.0-18.0[facility] CenterUrea nitrogen/Creatinine [Mass ratio]16.2 mg/mgOhiohealth Arthur G.[facility]. [facility], [facility], [facility] Center Laboratory - Hematology and Cell countsOrdered By: Dennys Aguilar on 07-07-2025 Immature granulocytes/100 WBC (Bld)0.4 %0.0-0.5FUniversity Hospitals Conneaut Medical Center Leukocytes [#/volume] corrected for nucleated erythrocytes in Blood by Automated counOrdered By: Dennys Aguilar on 95-98-7362ZZQ corrected for nucl RBC Auto (Bld) [#/Vol]8.3 10 3/uL4.0-11.0[facility], Cancer CenterLymphocytes Auto (Bld) [#/Vol]Ordered By: Dennys Aguilar on 04-51-0289Ioxssvwehei (Bld) [#/Vol]1.7 10 3/uL1.2-3.8[facility], Cancer CenterLymphocytes/100 WBC Auto (Bld) Ordered By: Dennys Aguilar on 89-68-0138Wmpwwxtqhlm/100 WBC (Bld)19.8 %Low20.5-60.0 [facility] CenterMCH Auto (RBC) [Entitic mass]Ordered By: Dennys Aguilar on 79-28-8874WVL (RBC) [Entitic mass]29.5 pg26.7-34.0[facility], Cancer CenterMCHC Auto (RBC) [Mass/Vol]Ordered By: Dennys Aguilar on 07-07-2025 MCHC (RBC) [Mass/Vol]32.2 g/dL29.9-35.2FUniversity Hospitals Conneaut Medical CenterMCV Auto (RBC) [Entitic vol]Ordered By: Dennys Aguilar on 09-36-7643MNU (RBC) [Entitic vol] 91.6 fL81.0-99.0[facility] CenterMonocytes Auto (Bld) [#/Vol] Ordered By: Dennys Aguilar on 00-37-3395Poryrcile (Bld) [#/Vol]1.2 10 3/uLHigh 0.3-0.8[facility] CenterMonocytes/100 WBC Auto (Bld)Ordered By: Dennys Aguilar on 98-81-2472Pssehyeiy/100 WBC (Bld)14.9 %High1.7-12.0[facility] CenterNeutrophils Auto (Bld) [#/Vol]Ordered By: Dennys Aguilar on 33-26-3544Vamsfzeoyay (Bld) [#/Vol]4.7 10 3/uL1.4-6.5FUniversity Hospitals Conneaut Medical CenterNeutrophils/100 WBC Auto (Bld)Ordered By: Dennys Aguilar on 07-07-2025 Neutrophils/100 WBC (Bld)56.9 %43.0-75.0[facility] CenterNo Panel InformationOrdered By: Dennys Aguilar on 72-92-3490Eackcmvsmse # (Auto)0.5 10 3/uL0.0-0.7FUniversity Hospitals Conneaut Medical CenterImmature Granulocyte # (Auto)0.03 10 3/uL0.00-0.03[facility] CenterTroponin I High Sensitivity9.9 pg/mL4.0-51.3FUniversity Hospitals Conneaut Medical CenterComment on above:CUT-OFF POINTS HAVE BEEN [...] (Bld) [Entitic vol]Ordered By: Dennys Aguilar on 25-41-4737Xwplrpcm mean volume (Bld) [Entitic vol]11.4 fL9.5-13.5FUniversity Hospitals Conneaut Medical CenterPlatelets Auto (Bld) [#/Vol]Ordered By: Dennys Aguilar on 49-38-4168Xxnqyhjwc (Bld) [#/Vol]119 10 3/iGNsr396-685EugryxccbOhiohealth Arthur G.H. Bing, Md, Cancer CenterRBC Auto (Bld) [#/Vol]Ordered By: Dennys Aguilar on 09-49-3969XLS (Bld) [#/Vol]4.88 10 6/uL4.20-5.40[facility] Allen Hospitalerum or plasma anion gap determinationOrdered By: Dennys Aguilar on 32-22-9790Abexb gap [Moles/Vol]13.6 mmol/LFUniversity Hospitals Conneaut Medical CenterActivated partial thromboplastin time (aPTT) in platelet poor plasma by coagulation aOrdered By: Daphne Emanuel on 82-18-5718mDKE Coag (PPP) [Time]27.4 s22.3-36.2FUniversity Hospitals Conneaut Medical CenterBasophils Auto (Bld) [#/Vol]Ordered By: Daphne Emanuel on 04-06-2025 Basophils (Bld) [#/Vol]0.2 10 3/uLHigh0.0-0.1FUniversity Hospitals Conneaut Medical Center Basophils/100 WBC Auto (Bld)Ordered By: Daphne Emanuel on 15-31-4581Bvtuqcfex/100 WBC (Bld)4.2 %High0.2-2.0[facility] CenterEosinophils/100 WBC Auto (Bld)Ordered By: Daphne Emanuel on 51-55-5829Oqbntzcrpig/100 WBC (Bld)9.2 %High 0.9-7.0[facility] CenterErythrocyte distribution width Auto (RBC) [Ratio]Ordered By: Daphne Emanuel on 17-45-7628Llmyykxgvdg distribution width (RBC) [Ratio]14.7 %11.0-15.0[facility] CenterEstimated glomerular filtration rate (GFR) non- AmericanOrdered By: Daphne Emanuel on 05-58-7852OAY/1.73 sq M.predicted among non-blacks MDRD (S/P/Bld) [Vol rate/Area]54 mL/min/{1.73_m2}Low>=60 mL/min/1.73m 2FUniversity Hospitals Conneaut Medical CenterGlobulin Calc (S) [Mass/Vol]Ordered By: Daphne Emanuel on 31-64-7080Pykvmavz (S) [Mass/Vol]3.1 g/dLOhiohealth Arthur G.H. Bing, Md, Cancer CenterHematocrit Auto (Bld) [Volume fraction]Ordered By: Daphne Emanuel on 66-12-0100Dtvgqgcwax (Bld) [Volume fraction]45.0 %36.0-48.0[facility], [facility] CenterHemoglobin [Mass/volume] in BloodOrdered By: Daphne Emanuel on 72-78-2444Wmamoktxql (Bld) [Mass/Vol]14.7 g/dL12.0-16.0[facility] CenterINR in Platelet poor plasma by Coagulation assayOrdered By: Daphne Emanuel on 65-81-8163CGW Coag (PPP) [Relative time]1.32 {INR}[facility], [facility] CenterComment on above:DESIRED INR:2.0-3.0 CONDITIONS NOT LISTED BELOW2.5-3.5 FOR PROSTHETIC HEART VALVE REPLACEMENT2.5-3.5 RECURRENT THROMBOSISLaboratory - Chemistry and Chemistry - challengeOrdered By: Daphne Emanuel on 05-59-1068Yvuojnjhe Ql (U)Negative NEGATIVEOhiohealth Arthur G.H. Bing, Md, Cancer CenterGlucose (U) [Mass/Vol]NegativeNEGATIVE [facility] CenterKetones Ql (U)NegativeNEGATIVEOhiohealth Arthur G.H. Bing, Md, Cancer CenterpH (U)7.0 [pH]5.0-9.0[facility] Specific gravity (U) [Rel density]1.0101.005-1.025Ohio[facility], Cancer CenterUrobilinogen Qn (U)0.2 {Myranda'U}/dL0.2-1.0[facility] CenterAlbumin [Mass/Vol]3.7 g/dL3.4-5.0[facility] CenterALP [Catalytic activity/Vol]64 U/K46-773MkcnpunbgOhiohealth Arthur G.H. Bing, Md, Cancer CenterALT [Catalytic activity/Vol]16 U/H80-80NrlqblftmOhiohealth Arthur G.H. Bing, Md, Cancer CenterAST [Catalytic activity/Vol]14 U/RVkg24-94ZrmmvzoqmOhiohealth Arthur G.H. Bing, Md, Cancer CenterBilirubin [Mass/Vol]0.4 mg/dL0.2-1.0[facility] CenterCalcium [Mass/Vol]9.9 mg/dL8.5-10.1FUniversity Hospitals Conneaut Medical CenterChloride [Moles/Vol]106 mmol/L 98-107[facility] CenterCO2 [Moles/Vol]26.9 mmol/L21.0-32.0 [facility] CenterCreatinine [Mass/Vol]0.97 mg/dL0.55-1.02 [facility] CenterGFR/1.73 sq M.predicted MDRD (S/P/Bld) [Vol rate/Area]mL/min/{1.73_m2}>=60 mL/min/1.73m 2FUniversity Hospitals Conneaut Medical Center Glucose [Mass/Vol]102 mg/bJ61-393VktcmphzxOhiohealth Arthur G.H. Bing, Md, Cancer CenterNatriuretic peptide B (Bld) [Mass/Vol]213.0 pg/mL<=1800.0[facility] Potassium [Moles/Vol]3.8 mmol/L3.5-5.1FUniversity Hospitals Conneaut Medical CenterProtein [Mass/Vol]6.8 g/dL6.4-8.2FOhioHealth Shelby Hospitalodium [Moles/Vol]144 mmol/R905-290YiiptvvhhOhiohealth Arthur G.H. Bing, Md, Cancer CenterUrea nitrogen [Mass/Vol]19.0 mg/dL High7.0-18.0[facility], Cancer CenterUrea nitrogen/Creatinine [Mass ratio]19.6 mg/mgOhiohealth Arthur G.H. Bing, Md, Cancer CenterLaboratory - Hematology and Cell countsOrdered By: Daphne Emanuel on 77-16-8600Wnyttncx granulocytes/100 WBC (Bld)0.5 %0.0-0.5FUniversity Hospitals Conneaut Medical CenterLaboratory - Specimen informationOrdered By: Daphne Emanuel on 61-01-6191Wjoblzolnv (U)CLEARCLEARFUniversity Hospitals Conneaut Medical CenterColor (U)LT. YELLOWYELLOWOhiohealth Arthur G.H. Bing, Md, Cancer CenterLaboratory - UrinalysisOrdered By: Daphne Emanuel on 50-37-6545Vdnxfgkkq esterase Test strip Ql (U)NegativeNEGUC HealthMucus Ql (Urine sed)TRACEAbnormalNONE SEENOhiohealth Arthur G.H. Bing, Md, Cancer CenterNitrite Ql (U)NegativeNEGUC HealthProtein Ql (U)Negative NEG/TRACEOhiohealth Arthur G.H. Bing, Md, Cancer CenterLeukocytes [#/volume] corrected for nucleated erythrocytes in Blood by Automated counOrdered By: Daphne Emanuel on 46-63-1487QVO corrected for nucl RBC Auto (Bld) [#/Vol]5.8 10 3/uL4.0-11.0 [facility] CenterLymphocytes Auto (Bld) [#/Vol]Ordered By: Daphne Emanuel on 24-20-9454Pzaotkawrur (Bld) [#/Vol]2.3 10 3/uL1.2-3.8[facility], Cancer CenterLymphocytes/100 WBC Auto (Bld)Ordered By: Daphne Emanuel on 04-06-2025 Lymphocytes/100 WBC (Bld)39.5 %20.5-60.0[facility], Cancer CenterMCH Auto (RBC) [Entitic mass]Ordered By: Daphne Emanuel on 08-59-9795VFI (RBC) [Entitic mass]30.0 pg26.7-34.0[facility], Cancer CenterMCHC Auto (RBC) [Mass/Vol] Ordered By: Daphne Emanuel on 08-38-7850VBJI (RBC) [Mass/Vol]32.7 g/dL29.9-35.2 [facility] CenterMCV Auto (RBC) [Entitic vol]Ordered By: Daphne Emanuel on 76-08-0390NZV (RBC) [Entitic vol]91.8 fL81.0-99.0[facility] CenterMonocytes Auto (Bld) [#/Vol]Ordered By: Daphne Emanuel on 04-06-2025 Monocytes (Bld) [#/Vol]0.8 10 3/uL0.3-0.8[facility] Monocytes/100 WBC Auto (Bld)Ordered By: Daphne Emanuel on 93-68-8998Btiyygnna/100 WBC (Bld)13.6 %High1.7-12.0[facility], Cancer CenterNeutrophils Auto (Bld) [#/Vol]Ordered By: Daphne Emanuel on 51-34-9875Waikxpwxrmv (Bld) [#/Vol]1.9 10 3/uL 1.4-6.5FUniversity Hospitals Conneaut Medical CenterNeutrophils/100 WBC Auto (Bld)Ordered By: Daphne Emanuel on 25-51-0898Uhcemnyszhj/100 WBC (Bld)33.0 %Low43.0-75.0[facility] CenterNo Panel InformationOrdered By: Daphne Emanuel on 04-06-2025 Urine BacteriaTRACE #/HPFAbnormalNONE SEENOhiohealth Arthur G.H. Bing, Md, Cancer CenterUrine Culture ReflexedNOOhiohealth Arthur G.H. Bing, Md, Cancer CenterUrine Occult BloodNegative NEGATIVEOhiohealth Arthur G.H. Bing, Md, Cancer CenterUrine Other CastsNONE SEEN #/LPFNONE [facility] HospitalUrine Other CrystalsNone Seen #/HPFNone White HospitalUrine RBC0-2 #/HPF0-2FUniversity Hospitals Conneaut Medical CenterUrine Squamous Epithelial CellsRARE #/LPFNONE/RAREOhiohealth Arthur G.H. Bing, Md, Cancer CenterUrine WBCNONE SEEN #/HPFNONE [facility] HospitalEosinophils # (Auto)0.5 10 3/uL0.0-0.7FUniversity Hospitals Conneaut Medical CenterImmature Granulocyte # (Auto)0.03 10 3/uL0.00-0.03[facility] CenterTroponin I High Sensitivity8.7 pg/mL4.0-51.3FUniversity Hospitals Conneaut Medical CenterComment on above:CUT-OFF POINTS HAVE BEEN [...] (Bld) [Entitic vol]Ordered By: Daphne Emanuel on 87-74-5805Leenzbpy mean volume (Bld) [Entitic vol]10.7 fL9.5-13.5FUniversity Hospitals Conneaut Medical CenterPlatelets Auto (Bld) [#/Vol]Ordered By: Daphne Emanuel on 32-74-3357Pimgzgksm (Bld) [#/Vol]135 10 3/tLQsn236-063AfpegxxbnOhiohealth Arthur G.H. Bing, Md, Cancer CenterProthrombin time (PT)Ordered By: Daphne Emanuel on 63-98-7599NB Coag (PPP) [Time]13.6 sHigh9.0-11.6FUniversity Hospitals Conneaut Medical CenterRBC Auto (Bld) [#/Vol]Ordered By: Daphne Emanuel on 04-06-2025 RBC (Bld) [#/Vol]4.90 10 6/uL4.20-5.40[facility] Hospitalerum or plasma albumin/globulin mass ratioOrdered By: Daphne Emanuel on 04-06-2025 Albumin/Globulin [Mass ratio]1.2 {ratio}[facility] Hospitalerum or plasma anion gap determinationOrdered By: Daphne Emanuel on 04-19-0199Dkgcj gap [Moles/Vol]14.9 mmol/LFUniversity Hospitals Conneaut Medical CenterOffice Visiton 02-12-2025 Follow-up [id number] Zoraida Barrios 1935 F Date Provider Department Center 02/12/2025 MISSY OCASIO CARD [facility] Family History Problem Relation Age of Onset Hypertension Mother Family Status - Relation Status Age at Mother Father Level of Service:62469 SD OFFICE/OUTPATIENT ESTABLISHED MOD [facility]Basophils Auto (Bld) [#/Vol]on 12-24-2024 Basophils (Bld) [#/Vol]Automated basophil countHigh0.0-0.1FUniversity Hospitals Conneaut Medical CenterBasophils/100 WBC Auto (Bld)on 47-82-4631Qbpwsynnp/100 WBC (Bld) Automated basophil %High0.2-2.0[facility] CenterEosinophils/100 WBC Auto (Bld)on 36-52-5685Xntoxcbvzih/100 WBC (Bld)Automated eosinophil % 0.9-7.0[facility] CenterErythrocyte distribution width Auto (RBC) [Ratio]on 06-99-0016Dwbjtgdygly distribution width (RBC) [Ratio] Erythrocyte distribution width [Ratio] by Automated count11.0-15.0[facility] CenterEstimated glomerular filtration rate (GFR) non- Americanon 30-94-3969GRJ/1.73 sq M.predicted among non-blacks MDRD (S/P/Bld) [Vol rate/Area]Estimated glomerular filtration rate (GFR) non- Low>=60 mL/min/1.73m 2FUniversity Hospitals Conneaut Medical CenterGlobulin Calc (S) [Mass/Vol]on 00-46-7302Akeclrwb (S) [Mass/Vol]Serum globulin measurement by calculation (mass/volume)[facility] CenterHematocrit Auto (Bld) [Volume fraction]on 35-86-6877Xbjintstuj (Bld) [Volume fraction]Hematocrit [Volume Fraction] of Blood by Automated count36.0-48.0[facility], [facility] CenterHemoglobin [Mass/volume] in Bloodon 69-53-0879Zrgyagvlck (Bld) [Mass/Vol] Hemoglobin [Mass/volume] in Blood12.0-16.0[facility] Laboratory - Chemistry and Chemistry - challengeon 34-79-9040Bxbonnf [Mass/Vol] 3.4 g/dL3.4-5.0[facility] CenterALP [Catalytic activity/Vol]55 U/H87-322NzdooenvjOhiohealth Arthur G.H. Bing, Md, Cancer CenterALT [Catalytic activity/Vol]14 U/L 14-59[facility], [facility] CenterAST [Catalytic activity/Vol]15 U/L15-37 [facility] CenterBilirubin [Mass/Vol]0.3 mg/dL0.2-1.0[facility] CenterCalcium [Mass/Vol]9.8 mg/dL8.5-10.1FUniversity Hospitals Conneaut Medical CenterChloride [Moles/Vol]106 mmol/R07-088YuogdjdwxOhiohealth Arthur G.H. [facility], Md, Cancer CenterCO2 [Moles/Vol]29.4 mmol/L21.0-32.0[facility] Creatinine [Mass/Vol]1.24 mg/dLHigh0.55-1.02[facility] GFR/1.73 sq M.predicted MDRD (S/P/Bld) [Vol rate/Area]49 mL/min/{1.73_m2}Low>=60 mL/min/1.73m 2FUniversity Hospitals Conneaut Medical CenterGlucose [Mass/Vol]158 mg/dLHigh 74-106[facility] CenterPotassium [Moles/Vol]3.5 mmol/L3.5-5.1 [facility] CenterProtein [Mass/Vol]6.3 g/dLLow6.4-8.2FOhioHealth Shelby Hospitalodium [Moles/Vol]143 mmol/G741-779XtmazjwkjOhiohealth Arthur G.H. Bing, Md, Cancer CenterUrea nitrogen [Mass/Vol]25.0 mg/dLHigh7.0-18.0[facility] CenterUrea nitrogen/Creatinine [Mass ratio]20.2 mg/mgOhiohealth Arthur G.H. Bing, Md, Cancer CenterLaboratory - Hematology and Cell countson 35-96-7770Jckeydee granulocytes/100 WBC (Bld)0.4 %0.0-0.5FUniversity Hospitals Conneaut Medical Center Leukocytes [#/volume] corrected for nucleated erythrocytes in Blood by Automated counon 36-17-6135IMM corrected for nucl RBC Auto (Bld) [#/Vol]Leukocytes [#/volume] corrected for nucleated erythrocytes in Blood by Automated coun 4.0-11.0[facility], [facility] CenterLymphocytes Auto (Bld) [#/Vol]on 89-68-2934Ktzvgwyuapd (Bld) [#/Vol]Lymphocytes [#/volume] in Blood by Automated count1.2-3.8[facility], [facility] CenterLymphocytes/100 WBC Auto (Bld)on 47-67-5498Yzpzqtkyxbc/100 WBC (Bld)Lymphocytes/100 leukocytes in Blood by Automated count20.5-60.0[facility] EastH Auto (RBC) [Entitic mass]on 07-04-3777HIR (RBC) [Entitic mass]MCH [Entitic mass] by Automated count 26.7-34.0[facility], [facility] CenterMCHC Auto (RBC) [Mass/Vol]on 27-11-4045BQFI (RBC) [Mass/Vol]MCHC [Mass/volume] by Automated count29.9-35.2 [facility] CenterMCV Auto (RBC) [Entitic vol]on 88-65-4222XCX (RBC) [Entitic vol]MCV [Entitic volume] by Automated count81.0-99.0[facility], [facility] CenterMonocytes Auto (Bld) [#/Vol]on 80-24-1497Pmpedekox (Bld) [#/Vol]Automated blood monocyte count0.3-0.8[facility] Monocytes/100 WBC Auto (Bld)on 32-78-8047Fchbpkgmk/100 WBC (Bld)Automated monocyte %High1.7-12.0[facility], Cancer CenterNeutrophils Auto (Bld) [#/Vol]on 05-31-6008Xxolgtlvaos (Bld) [#/Vol]Neutrophils [#/volume] in Blood by Automated count1.4-6.5FUniversity Hospitals Conneaut Medical CenterNeutrophils/100 WBC Auto (Bld)on 79-23-5494Djxailobrfg/100 WBC (Bld)Automated neutrophil %43.0-75.0 [facility] CenterNo Panel Informationon 46-29-4656Xhffeucqfnh # (Auto)0.3 10 3/uL0.0-0.7[facility] CenterImmature Granulocyte # (Auto)0.02 10 3/uL0.00-0.03[facility] CenterTroponin I High Sensitivity8.8 pg/mL4.0-51.3FUniversity Hospitals Conneaut Medical CenterComment on above: CUT-OFF POINTS HAVE BEEN ESTABLISHED [...] volume [Entitic volume] in Blood by Automated count9.5-13.5FUniversity Hospitals Conneaut Medical CenterPlatelets Auto (Bld) [#/Vol]on 27-24-6299Kzxewvnyq (Bld) [#/Vol]Platelets [#/volume] in Blood by Automated washvKmy556-261PvnyjwlysOhiohealth Arthur G.H. Bing, Md, Cancer CenterRBC Auto (Bld) [#/Vol]on 69-32-1331FIH (Bld) [#/Vol]Erythrocytes [#/volume] in Blood by Automated count4.20-5.40[facility] Hospitalerum or plasma albumin/globulin mass ratioon 46-47-8956Cabdksn/Globulin [Mass ratio]Serum or plasma albumin/globulin mass ratioMercy Health Allen Hospitalerum or plasma anion gap determinationon 14-25-6880Xmlvs gap [Moles/Vol]Serum or plasma anion gap determinationOhiohealth Arthur G.H. Bing, Md, Cancer CenterOffice Visiton 42-95-9528Slczif-up [id number] Zoraida Barrios 1935 F Date Provider Department Center 11/28/2024 EDVIN PALM CRISTOBAL [facility] Family History Problem Relation Age of Onset Hypertension Mother Family Status - Relation Status Age at Mother Level of Service:76426 SD OFFICE[facility]OUTPATIENT [facility] 75-47-5133Itqxwt-up visit [id number] Zoraida Barrios Chris 1935 F Date Provider Department Center 06/28/2024 AALIYAH HENDERSON [facility] Family History Problem Relation Age of Onset Hypertension Mother Family Status - Relation Status Age at Mother Level of Service:45394 SD OFFICE/OUTPATIENT ESTABLISHED LOW MDM 20 [facility] HealthBasophils Auto (Bld) [#/Vol]on 05-15-2024 Basophils (Bld) [#/Vol]0.2 10 3/uLHigh0.0-0.1FUniversity Hospitals Conneaut Medical Center Basophils/100 WBC Auto (Bld)on 62-92-4749Qbiwrthsi/100 WBC (Bld)2.2 %High0.2-2.0 [facility] CenterEosinophils/100 WBC Auto (Bld)on 05-15-2024 Eosinophils/100 WBC (Bld)5.0 %0.9-7.0[facility] Erythrocyte distribution width Auto (RBC) [Ratio]on 28-71-5026Kmrjztgcsjj distribution width (RBC) [Ratio]14.7 %11.0-15.0[facility] Estimated glomerular filtration rate (GFR) non- Americanon 05-15-2024 GFR/1.73 sq M.predicted among non-blacks MDRD (S/P/Bld) [Vol rate/Area]45 mL/min/{1.73_m2}Low>=60[facility], Cancer CenterHematocrit Auto (Bld) [Volume fraction]on 40-44-9560Yazkybitpg (Bld) [Volume fraction]40.2 %36.0-48.0 [facility] CenterHemoglobin [Mass/volume] in Bloodon 05-15-2024 Hemoglobin (Bld) [Mass/Vol]13.0 g/dL12.0-16.0[facility] Laboratory - Chemistry and Chemistry - challengeon 11-41-7386Wpmsugj [Mass/Vol] 9.5 mg/dL8.5-10.1FUniversity Hospitals Conneaut Medical CenterChloride [Moles/Vol]105 mmol/L 98-107[facility] CenterCO2 [Moles/Vol]26.4 mmol/L21.0-32.0 [facility] CenterCobalamin (Vitamin B12) [Mass/Vol]618.0 pg/mL 193.0-986.0[facility] CenterCreatinine [Mass/Vol]1.15 mg/dLHigh 0.55-1.02[facility] Cancer CenterFree T4 [Mass/Vol]1.06 ng/dL0.76-1.46 [facility] CenterGFR/1.73 sq M.predicted MDRD (S/P/Bld) [Vol rate/Area]54 mL/min/{1.73_m2}Low>=60[facility] CenterGlucose [Mass/Vol]104 mg/yT13-722VnsijixyvOhiohealth Arthur G.H. Bing, Md, Cancer CenterPotassium [Moles/Vol] 4.2 mmol/L3.5-5.1FOhioHealth Shelby Hospitalodium [Moles/Vol]137 mmol/L 136-145[facility] Cancer CenterTSH Qn4.417 m[IU]/LHigh0.358-3.740 [facility] CenterUrea nitrogen [Mass/Vol]20.0 mg/dLHigh7.0-18.0 [facility] CenterUrea nitrogen/Creatinine [Mass ratio]17.4 mg/mg [facility] CenterLaboratory - Hematology and Cell countson 57-73-8467Ktipccba granulocytes/100 WBC (Bld)1.3 %High0.0-0.5FUniversity Hospitals Conneaut Medical CenterLeukocytes [#/volume] corrected for nucleated erythrocytes in Blood by Automated counon 04-18-9079ECH corrected for nucl RBC Auto (Bld) [#/Vol]10.4 10 3/uL4.0-11.0[facility], Cancer CenterLymphocytes Auto (Bld) [#/Vol]on 53-99-1803Vkcbuejqlsf (Bld) [#/Vol]2.1 10 3/uL1.2-3.8[facility] CenterLymphocytes/100 WBC Auto (Bld)on 05-15-2024 Lymphocytes/100 WBC (Bld)20.1 %Low20.5-60.0[facility] Auto (RBC) [Entitic mass]on 59-00-7389ZVP (RBC) [Entitic mass]30.2 pg26.7-34.0 [facility] CenterMCHC Auto (RBC) [Mass/Vol]on 16-99-4712YWEU (RBC) [Mass/Vol]32.3 g/dL29.9-35.2FUniversity Hospitals Conneaut Medical CenterMCV Auto (RBC) [Entitic vol]on 10-01-9627JCW (RBC) [Entitic vol]93.3 fL81.0-99.0[facility] CenterMonocytes Auto (Bld) [#/Vol]on 54-67-5572Atblbcbiy (Bld) [#/Vol]1.4 10 3/uLHigh0.3-0.8[facility] CenterMonocytes/100 WBC Auto (Bld)on 70-52-2888Pvpbvpbkz/100 WBC (Bld)13.0 %High1.7-12.0[facility] Cancer CenterNeutrophils Auto (Bld) [#/Vol]on 84-93-2701Voonxlzrxrv (Bld) [#/Vol]6.1 10 3/uL1.4-6.5FUniversity Hospitals Conneaut Medical CenterNeutrophils/100 WBC Auto (Bld)on 11-03-5828Vyqmndrnqjd/100 WBC (Bld)58.4 %43.0-75.0[facility] CenterNo Panel Informationon [id number]-Qwcfsgu Vitamin D Total32.6 ng/mLOhiohealth Arthur G.H. Bing, Md, Cancer CenterComment on above:<20 ng/mL Vit D uqbgdwagm41-<30 ng/mL Vit D aqjebqxzaabl97-151 ng/mL Vit D sufficient>100 ng/mL Potential ToxicityEosinophils # (Auto)0.5 10 3/uL0.0-0.7FUniversity Hospitals Conneaut Medical CenterFolate12.10 ng/mL8.60-58.90[facility] Immature Granulocyte # (Auto)0.13 10 3/uLHigh0.00-0.03[facility], Cancer CenterPlatelet mean volume Auto (Bld) [Entitic vol]on 14-35-9942Femhzlzq mean volume (Bld) [Entitic vol]10.7 fL9.5-13.5FUniversity Hospitals Conneaut Medical Center Platelets Auto (Bld) [#/Vol]on 90-55-9455Opifavgud (Bld) [#/Vol]132 10 3/uLLow 150-450[facility], Cancer CenterRBC Auto (Bld) [#/Vol]on 61-37-0144MXX (Bld) [#/Vol]4.31 10 6/uL4.20-5.40[facility] Hospitalerum or plasma anion gap determinationon 39-19-5353Bfmma gap [Moles/Vol]9.8 mmol/L [facility] Cancer CenterBasophils Auto (Bld) [#/Vol]on 05-10-2024 Basophils (Bld) [#/Vol]0.2 10 3/uLHigh0.0-0.1FUniversity Hospitals Conneaut Medical Center Basophils/100 WBC Auto (Bld)on 94-64-6677Luwdikvum/100 WBC (Bld)3.1 %High0.2-2.0 [facility] CenterEosinophils/100 WBC Auto (Bld)on 05-10-2024 Eosinophils/100 WBC (Bld)6.3 %0.9-7.0[facility] Erythrocyte distribution width Auto (RBC) [Ratio]on 96-93-0271Gandwnwajbi distribution width (RBC) [Ratio]14.8 %11.0-15.0[facility] Estimated glomerular filtration rate (GFR) non- Americanon 05-10-2024 GFR/1.73 sq M.predicted among non-blacks MDRD (S/P/Bld) [Vol rate/Area]39 mL/min/{1.73_m2}Low>=60[facility] CenterFibrin D-dimer [Presence] in Platelet poor plasma by Latex agglutinationon 25-94-4622Qphxmr D- dimer LA Ql (PPP)0.29 mg/L FEU<=0.59[facility] CenterComment on above:Increases in D-Dimer concentration observed [...] stress, and generalizedhospitalization. Globulin Calc (S) [Mass/Vol]on 34-98-0317Hbzjqely (S) [Mass/Vol]3.1 g/dL [facility] CenterHematocrit Auto (Bld) [Volume fraction]on 69-03-9597Yuejvviqeu (Bld) [Volume fraction]39.6 %36.0-48.0[facility] CenterHemoglobin [Mass/volume] in Bloodon 07-45-3541Cltlfqaexz (Bld) [Mass/Vol]12.9 g/dL12.0-16.0[facility] CenterINR in Platelet poor plasma by Coagulation assayon 48-72-3928JJR Coag (PPP) [Relative time]1.34 {INR}[facility] CenterComment on above:DESIRED INR:2.0-3.0 CONDITIONS NOT LISTED BELOW2.5-3.5 FOR PROSTHETIC HEART VALVE REPLACEMENT2.5-3.5 RECURRENT THROMBOSISLaboratory - Chemistry and Chemistry - challengeon 93-30-1214Uacdeuzfv Ql (U)NegativeNEGATIVEOhiohealth [facility] Glucose (U) [Mass/Vol]NegativeNEGATIVEOhiohealth Arthur G.H. [facility], [facility], Cancer CenterKetones Ql (U)NegativeNEGATIVEOhiohealth Arthur G.[facility]. [facility], [facility], Cancer CenterpH (U)6.0 [pH]5.0-9.0 [facility] Hospitalpecific gravity (U) [Rel density]1.015 1.005-1.025[facility] CenterUrobilinogen Qn (U)0.2 {Myranda'U}/dL0.2-1.0[facility] CenterAlbumin [Mass/Vol]3.5 g/dL 3.4-5.0[facility] CenterALP [Catalytic activity/Vol]54 U/L46-116 [facility] CenterALT [Catalytic activity/Vol]17 U/L14-59 [facility] CenterAST [Catalytic activity/Vol]14 U/RVox52-58 [facility] CenterBilirubin [Mass/Vol]0.4 mg/dL0.2-1.0[facility] CenterCalcium [Mass/Vol]9.5 mg/dL8.5-10.1FUniversity Hospitals Conneaut Medical CenterChloride [Moles/Vol]104 mmol/Z31-334ZndqhlryrOhiohealth Arthur G.H. [facility], Md, Cancer CenterCO2 [Moles/Vol]26.0 mmol/L21.0-32.0[facility] Creatinine [Mass/Vol]1.28 mg/dLHigh0.55-1.02[facility] GFR/1.73 sq M.predicted MDRD (S/P/Bld) [Vol rate/Area]48 mL/min/{1.73_m2}Low>=60 [facility] CenterGlucose [Mass/Vol]143 mg/yNSbdw49-235QwcpnznflOhiohealth Arthur G.H. [facility], [facility], Cancer CenterNatriuretic peptide B (Bld) [Mass/Vol]178.0 pg/mL<=1800.0 [facility] CenterPotassium [Moles/Vol]3.9 mmol/L3.5-5.1FUniversity Hospitals Conneaut Medical CenterProtein [Mass/Vol]6.6 g/dL6.4-8.2FOhioHealth Shelby Hospitalodium [Moles/Vol]136 mmol/D091-197UdodcoswpOhiohealth Arthur G.H. Bing, Md, Cancer CenterUrea nitrogen [Mass/Vol]21.0 mg/dLHigh7.0-18.0[facility] CenterUrea nitrogen/Creatinine [Mass ratio]16.4 mg/mgOhiohealth Arthur G.H. [facility], Md, Cancer CenterLaboratory - Hematology and Cell countson 82-79-5794Pmnlwwdd granulocytes/100 WBC (Bld)0.3 %0.0-0.5FUniversity Hospitals Conneaut Medical Center Laboratory - Specimen informationon 62-63-0167Yqviectxou (U)CLEARCLEARFUniversity Hospitals Conneaut Medical CenterColor (U)LT. YELLOWYELLOWOhiohealth Arthur G.H. Bing, Md, Cancer CenterLaboratory - Urinalysison 68-02-1271Jzlhtvsky esterase Test strip Ql (U) SMALLAbnormalNEGATIVEOhiohealth Arthur [facility]. [facility], [facility], Cancer CenterMucus Ql (Urine sed)NONE SEENNONE SEENOhiohealth Arthur G.H. Bing, Md, Cancer CenterNitrite Ql (U)NegativeNEGATIVE [facility] CenterProtein Ql (U)NegativeNEG/TRACEOhiohealth Arthur G.H. Bing, Md, Cancer CenterLeukocytes [#/volume] corrected for nucleated erythrocytes in Blood by Automated counon 76-48-8402AYI corrected for nucl RBC Auto (Bld) [#/Vol]5.9 10 3/uL4.0-11.0[facility] Lymphocytes Auto (Bld) [#/Vol]on 45-51-7819Xaycsodulis (Bld) [#/Vol]1.8 10 3/uL 1.2-3.8[facility] CenterLymphocytes/100 WBC Auto (Bld)on 70-99-7921Bwjewyaowho/100 WBC (Bld)31.0 %20.5-60.0[facility] EastH Auto (RBC) [Entitic mass]on 19-44-8089HQM (RBC) [Entitic mass]30.4 pg 26.7-34.0[facility] CenterMCHC Auto (RBC) [Mass/Vol]on 03-72-4031KHRW (RBC) [Mass/Vol]32.6 g/dL29.9-35.2FUniversity Hospitals Conneaut Medical CenterMCV Auto (RBC) [Entitic vol]on 86-50-9835FRF (RBC) [Entitic vol]93.2 fL 81.0-99.0[facility] CenterMonocytes Auto (Bld) [#/Vol]on 73-29-2494Sxvijiyko (Bld) [#/Vol]0.7 10 3/uL0.3-0.8[facility] CenterMonocytes/100 WBC Auto (Bld)on 43-17-3472Cuqkcbaoc/100 WBC (Bld)12.4 %High 1.7-12.0[facility] CenterNeutrophils Auto (Bld) [#/Vol]on 41-46-5499Gsbbgjpbyyn (Bld) [#/Vol]2.8 10 3/uL1.4-6.5FUniversity Hospitals Conneaut Medical CenterNeutrophils/100 WBC Auto (Bld)on 10-96-1808Rpdcqchbbqj/100 WBC (Bld)46.9 % 43.0-75.0[facility] CenterNo Panel Informationon 36-81-4430Rtoqg BacteriaTRACE #/HPFAbnormalNONE [facility] HospitalUrine Occult BloodTRACE-INEGATIVEOhiohealth Arthur G.[facility]. [facility], [facility], Cancer CenterUrine Other Casts NONE SEEN #/LPFNONE [facility] HospitalUrine Other Crystals None Seen #/HPFNone White HospitalUrine RBC5-10 #/HPF Abnormal0-2FUniversity Hospitals Conneaut Medical CenterUrine Squamous Epithelial Cells MODERATE #/LPFAbnormalNONE/RAREOhiohealth Arthur G.H. Bing, Md, Cancer CenterUrine WBC0-2 #/HPFAbnormalNONE [facility] HospitalEosinophils # (Auto)0.4 10 3/uL0.0-0.7FUniversity Hospitals Conneaut Medical CenterImmature Granulocyte # (Auto)0.02 10 3/uL0.00-0.03[facility] CenterTroponin I High Sensitivity5.5 pg/mL4.0-51.3FUniversity Hospitals Conneaut Medical CenterComment on above:CUT-OFF POINTS HAVE BEEN [...] INFORMATION.Platelet mean volume Auto (Bld) [Entitic vol]on 28-39-5361Bkmuudot mean volume (Bld) [Entitic vol]10.9 fL9.5-13.5FUniversity Hospitals Conneaut Medical Center Platelets Auto (Bld) [#/Vol]on 68-92-1199Sotwckjra (Bld) [#/Vol]144 10 3/uLLow 150-450[facility] CenterProthrombin time (PT)on 78-90-0215UH Coag (PPP) [Time]13.8 sHigh9.0-11.6FUniversity Hospitals Conneaut Medical CenterRBC Auto (Bld) [#/Vol]on 64-88-1066ZYS (Bld) [#/Vol]4.25 10 6/uL4.20-5.40[facility] Hospitalerum or plasma albumin/globulin mass ratioon 05-10-2024 Albumin/Globulin [Mass ratio]1.1 {ratio}[facility] Allen Hospitalerum or plasma anion gap determinationon 71-92-2822Moaun gap [Moles/Vol]9.9 mmol/L [facility] CenterOffice Visiton 05-33-9306Gvayyy-up visit [id number] Zoraida Barrios 1935 F Date Provider Department Center 05/01/2024 AALIYAH HENDERSON CARD [facility] Family History Problem Relation Age of Onset Hypertension Mother Family Status - Relation Status Age at Mother Level of Service:55007 SD OFFICE/OUTPATIENT ESTABLISHED LOW MDM 20 [facility]Bas[facility] WBC Manual cnt (Bld)on 48-35-1293Adgmonzfh/100 WBC (Bld)0.0 %Low0.2-2.0[facility] CenterEosinophils/100 WBC Manual cnt (Bld)on 40-67-5921Gymujqzrvsf/100 WBC (Bld) 4.0 %0.9-7.0[facility] CenterErythrocyte distribution width Auto (RBC) [Ratio]on 90-99-0260Qvuofgyuryh distribution width (RBC) [Ratio]14.7 % 11.0-15.0[facility] CenterEstimated glomerular filtration rate (GFR) non- Americanon 25-88-5402RQE/1.73 sq M.predicted among non-blacks MDRD (S/P/Bld) [Vol rate/Area]42 mL/min/{1.73_m2}Low>=60[facility] CenterGlobulin Calc (S) [Mass/Vol]on 90-29-8160Awppgfrx (S) [Mass/Vol] 3.4 g/dLOhiohealth Arthur G.H. Bing, Md, Cancer CenterHematocrit Auto (Bld) [Volume fraction] on 79-19-7168Dfgtflrnhr (Bld) [Volume fraction]43.1 %36.0-48.0[facility] CenterHemoglobin [Mass/volume] in Bloodon 16-14-5042Yxvutjfsct (Bld) [Mass/Vol]13.8 g/dL12.0-16.0[facility] CenterINR in Platelet poor plasma by Coagulation assayon 20-12-3843RIK Coag (PPP) [Relative time]1.31 {INR}[facility] CenterComment on above:DESIRED INR:2.0-3.0 CONDITIONS NOT LISTED BELOW2.5-3.5 FOR PROSTHETIC HEART VALVE REPLACEMENT2.5-3.5 RECURRENT THROMBOSISLaboratory - Chemistry and Chemistry - challengeon 66-88-4960Vugiyoi [Mass/Vol]4.0 g/dL3.4-5.0[facility] CenterALP [Catalytic activity/Vol]63 U/R19-914AoucceehrOhiohealth Arthur G.H. [facility], Md, Cancer CenterALT [Catalytic activity/Vol]18 U/M15-09LrrsfecevOhiohealth Arthur G.H. [facility], [facility], Cancer CenterAST [Catalytic activity/Vol]14 U/EKny76-91YzcbszwgpOhiohealth Arthur G.H. [facility], Md, Cancer CenterBilirubin [Mass/Vol]0.7 mg/dL0.2-1.0[facility] CenterCalcium [Mass/Vol]9.6 mg/dL8.5-10.1FUniversity Hospitals Conneaut Medical CenterChloride [Moles/Vol]104 mmol/L 98-107[facility] CenterCO2 [Moles/Vol]29.2 mmol/L21.0-32.0 [facility] CenterCreatinine [Mass/Vol]1.21 mg/dLHigh0.55-1.02 [facility] CenterGFR/1.73 sq M.predicted MDRD (S/P/Bld) [Vol rate/Area]51 mL/min/{1.73_m2}Low>=60[facility] CenterGlucose [Mass/Vol]136 mg/jJXjsw37-518TjhfmnrnoOhiohealth Arthur G.H. Bing, Md, Cancer CenterNatriuretic peptide B (Bld) [Mass/Vol]201.0 pg/mL<=1800.0[facility] Potassium [Moles/Vol]3.9 mmol/L3.5-5.1FUniversity Hospitals Conneaut Medical CenterProtein [Mass/Vol]7.4 g/dL6.4-8.2FOhioHealth Shelby Hospitalodium [Moles/Vol]139 mmol/A577-428NqtsxnwqjOhiohealth Arthur G.H. Bing, Md, Cancer CenterUrea nitrogen [Mass/Vol]27.0 mg/dL High7.0-18.0[facility] CenterUrea nitrogen/Creatinine [Mass ratio]22.3 mg/mgOhiohealth Arthur G.H. Bing, Md, Cancer CenterLaboratory - Hematology and Cell countson 40-25-6211Fsav form neutrophils/100 WBC (Bld)4.0 %0-5FUniversity Hospitals Conneaut Medical CenterLymphocytes/100 WBC (Bld)15.0 %Low20.5-60.0[facility] CenterMonocytes/100 WBC (Bld)3.0 %1.7-12.0[facility] CenterLeukocytes [#/volume] corrected for nucleated erythrocytes in Blood by Automated counon 73-20-1362PAV corrected for nucl RBC Auto (Bld) [#/Vol]13.3 10 3/uLHigh4.0-11.0[facility] EastH Auto (RBC) [Entitic mass]on 50-99-8464BJP (RBC) [Entitic mass]30.1 pg26.7-34.0[facility] EastHC Auto (RBC) [Mass/Vol]on 69-56-7018ULIU (RBC) [Mass/Vol]32.0 g/dL29.9-35.2FMercy Health Anderson HospitalV Auto (RBC) [Entitic vol]on 83-27-8233NCC (RBC) [Entitic vol]93.9 fL81.0-99.0[facility] CenterNo Panel Informationon 05-67-8399Pqrurolu I High Sensitivity6.5 pg/mL4.0-51.3FUniversity Hospitals Conneaut Medical CenterComment on above: CUT-OFF POINTS HAVE BEEN ESTABLISHED [...] DIAGNOSTIC AND CLINICAL INFORMATION.Absolute Basophils (Manual)0.00 10 3/uL0.00-0.10[facility] CenterBand Neutrophils # (Manual)0.5 10 3/uLHigh0.0-0.3 [facility] CenterEosinophils # (Manual)0.53 10 3/uL0.00-0.70 [facility] CenterLymphocytes # (Manual)1.99 10 3/uL1.20-3.80 [facility] CenterMonocytes # (Manual)0.39 10 3/uL0.30-0.80 [facility] Hospitalegmented Neutrophils # (Manual)9.84 10 3/uL High1.4-6.5FUniversity Hospitals Conneaut Medical CenterPlatelet mean volume Auto (Bld) [Entitic vol]on 76-22-7063Qvavjvvo mean volume (Bld) [Entitic vol]10.4 fL 9.5-13.5FUniversity Hospitals Conneaut Medical CenterPlatelets Auto (Bld) [#/Vol]on 21-46-9569Xdeatmhuv (Bld) [#/Vol]145 10 3/jTXda650-027EyxcbhjyrOhiohealth Arthur G.H. Bing, Md, Cancer CenterProthrombin time (PT)on 94-55-2342YX Coag (PPP) [Time]13.5 sHigh9.0-11.6 [facility] CenterRBC Auto (Bld) [#/Vol]on 39-37-7678WOP (Bld) [#/Vol]4.59 10 6/uL4.20-5.40[facility] Hospitalegmented neutrophils/100 WBC Manual cnt (Bld)on 06-35-7172Jttvrgfbv neutrophils/100 WBC (Bld)74.0 %[facility] Hospitalerum or plasma albumin/globulin mass ratioon 70-75-9950Shkmtnf/Globulin [Mass ratio]1.2 {ratio}[facility] Hospitalerum or plasma anion gap determinationon 92-14-9283Pgwsr gap [Moles/Vol]9.7 mmol/LFUniversity Hospitals Conneaut Medical CenterOffice Visiton 77-20-8179Rzbiji-up [id number] Zoraida Barrios 1935 F Date Provider Department Center 03/28/2024 AALIYAH HENEDRSON CARD [facility] Family History Problem Relation Age of Onset Hypertension Mother Family Status - Relation Status Age at Mother Level of Service:78987 SD OFFICE/OUTPATIENT ESTABLISHED LOW MDM 20 [facility]Basophils Auto (Bld) [#/Vol]on 12-28-2023 Basophils (Bld) [#/Vol]0.2 10 3/uL0.0-0.1FUniversity Hospitals Conneaut Medical Center Basophils/100 WBC Auto (Bld)on 84-18-4392Enmsirspq/100 WBC (Bld)3.4 %0.2-2.0 [facility] CenterEosinophils/100 WBC Auto (Bld)on 12-28-2023 Eosinophils/100 WBC (Bld)6.2 %0.9-7.0[facility] Erythrocyte distribution width Auto (RBC) [Ratio]on 44-24-0928Cgiqqmtcyoa distribution width (RBC) [Ratio]14.8 %11.0-15.0[facility] Estimated glomerular filtration rate (GFR) non- Americanon 12-28-2023 GFR/1.73 sq M.predicted among non-blacks MDRD (S/P/Bld) [Vol rate/Area]46 mL/min/{1.73_m2}>=60[facility] CenterHematocrit Auto (Bld) [Volume fraction]on 64-73-6350Fsdpbgobwz (Bld) [Volume fraction]42.9 %36.0-48.0 [facility] CenterHemoglobin [Mass/volume] in Bloodon 12-28-2023 Hemoglobin (Bld) [Mass/Vol]13.7 g/dL12.0-16.0[facility] Laboratory - Chemistry and Chemistry - challengeon 47-71-5368Xglbgmn [Mass/Vol] 9.7 mg/dL8.5-10.1FUniversity Hospitals Conneaut Medical CenterChloride [Moles/Vol]106 mmol/L 98-107[facility] CenterCO2 [Moles/Vol]26.1 mmol/L21.0-32.0 [facility] CenterCreatinine [Mass/Vol]1.11 mg/dL0.55-1.02 [facility] CenterGFR/1.73 sq M.predicted MDRD (S/P/Bld) [Vol rate/Area]56 mL/min/{1.73_m2}>=60[facility] CenterGlucose [Mass/Vol]108 mg/kN88-643WizcjfdcuOhiohealth Arthur G.H. Bing, Md, Cancer CenterPotassium [Moles/Vol] 3.8 mmol/L3.5-5.1FOhioHealth Shelby Hospitalodium [Moles/Vol]139 mmol/L 136-145[facility] CenterUrea nitrogen [Mass/Vol]22.0 mg/dL 7.0-18.0[facility] CenterUrea nitrogen/Creatinine [Mass ratio] 19.8 mg/mgOhiohealth Arthur G.H. Bing, Md, Cancer CenterLaboratory - Hematology and Cell countson 92-09-1976Yqmxhqks granulocytes/100 WBC (Bld)0.5 %0.0-0.5FUniversity Hospitals Conneaut Medical CenterLeukocytes [#/volume] corrected for nucleated erythrocytes in Blood by Automated counon 59-24-3513GJU corrected for nucl RBC Auto (Bld) [#/Vol]6.0 10 3/uL4.0-11.0[facility] Lymphocytes Auto (Bld) [#/Vol]on 39-24-3486Wtbloinhhjs (Bld) [#/Vol]2.1 10 3/uL 1.2-3.8[facility] CenterLymphocytes/100 WBC Auto (Bld)on 34-24-0537Gbxfvodotoh/100 WBC (Bld)34.9 %20.5-60.0[facility] EastH Auto (RBC) [Entitic mass]on 30-46-4463SLP (RBC) [Entitic mass]30.0 pg 26.7-34.0[facility] CenterMCHC Auto (RBC) [Mass/Vol]on 43-78-6026COPK (RBC) [Mass/Vol]31.9 g/dL29.9-35.2FUniversity Hospitals Conneaut Medical CenterMCV Auto (RBC) [Entitic vol]on 34-67-6679WBG (RBC) [Entitic vol]93.9 fL 81.0-99.0[facility] CenterMonocytes Auto (Bld) [#/Vol]on 34-34-3608Qrykxdvdc (Bld) [#/Vol]0.9 10 3/uL0.3-0.8[facility] CenterMonocytes/100 WBC Auto (Bld)on 06-43-1369Ziutdltxs/100 WBC (Bld)15.1 % 1.7-12.0[facility] Cancer CenterNeutrophils Auto (Bld) [#/Vol]on 20-97-9760Gbpqsdvvfll (Bld) [#/Vol]2.4 10 3/uL1.4-6.5FUniversity Hospitals Conneaut Medical CenterNeutrophils/100 WBC Auto (Bld)on 13-73-8859Qtpiltsiuod/100 WBC (Bld)39.9 % 43.0-75.0[facility] CenterNo Panel Informationon 12-28-2023 Eosinophils # (Auto)0.4 10 3/uL0.0-0.7FUniversity Hospitals Conneaut Medical CenterImmature Granulocyte # (Auto)0.03 10 3/uL0.00-0.03[facility] Troponin I High Sensitivity6.6 pg/mL4.0-51.3FUniversity Hospitals Conneaut Medical Center Comment on above:CUT-OFF POINTS HAVE BEEN ESTABLISHED [...] INFORMATION.Platelet mean volume Auto (Bld) [Entitic vol]on 18-20-6492Ckerftvr mean volume (Bld) [Entitic vol] 10.8 fL9.5-13.5FUniversity Hospitals Conneaut Medical CenterPlatelets Auto (Bld) [#/Vol]on 82-89-1893Rwyqwbyen (Bld) [#/Vol]142 10 3/jD833-159VenigimffOhiohealth Arthur G.H. Bing, Md, Cancer CenterRBC Auto (Bld) [#/Vol]on 41-08-4630YKQ (Bld) [#/Vol]4.57 10 6/uL4.20-5.40 [facility] Hospitalerum or plasma anion gap determinationon 41-43-5138Qfczh gap [Moles/Vol]10.7 mmol/LFUniversity Hospitals Conneaut Medical CenterPROF CHEM 8 (BAS METB)on 38-63-6173Gpdly gap [Moles/Vol]12.5 mmol/LNormalUc HealthComment on above:Performed By: #### BMP #### [facility] [address] [address] [address] Arden MagallonCalcium [Mass/Vol]10.0 mg/dLNormal8.5-10.1[facility] Comment on above:Performed By: #### BMP #### [facility] [address] [address] [address] Arden MagallonChloride [Moles/Vol]105 mmol/KJpcdbj76-033AjnUc Health Comment on above:Performed By: #### BMP #### [facility] [address] [address] [address] Arden MagallonCO2 [Moles/Vol]29.9 mmol/RVaozpk32.0-32.0[facility] Comment on above:Performed By: #### BMP #### [facility] [address] [address] [address] Arden MagallonCreatinine [Mass/Vol]1.26 mg/dLCritically high0.55-1.02The White HospitalComment on above:Performed By: #### BMP #### [facility] [address] [address] [address] Arden CarranzaGFR-AF RMVQKJYX28 mL/min/1.98d4Qecknadeii low>=60The [facility] HospitalComment on above:Performed By: #### BMP #### [facility] [address] [address] [address] Arden CarranzaGFR-NON AF UAJJJMDR98 mL/min/1.97w9Gzuhqizcwr low>=60The [facility] HospitalComment on above:Performed By: #### BMP #### [facility] [address] [address] [address] Arden MagallonGlucose [Mass/Vol]108 mg/dLCritically clor64-793Vxv White HospitalComment on above:Performed By: #### BMP #### [facility] [address] [address] [address] Arden MagallonPotassium [Moles/Vol]3.4 mmol/LCritically low3.5-5.1Uc HealthComment on above:Performed By: #### BMP #### [facility] [address] [place] [address] Dr. Arden Parkerum [Moles/Vol]144 mmol/TBuvdin886-608Ztq [facility] Comment on above:Performed By: #### BMP #### [facility] [address] [place] [address] Dr. Arden Jones nitrogen [Mass/Vol]28.0 mg/dLCritically high7.0-18.0Uc HealthComment on above:Performed By: #### BMP #### [facility] [address] [place] [address] Dr. Arden Jones nitrogen/Creatinine [Mass ratio]22.2 mg/mgNormalThe White HospitalComment on above:Performed By: #### BMP #### [facility] [address] [place] [address] Dr. Arden Caraballo CINDY 3-6on 97-53-3406EZ [Catalytic activity/Vol]27 U/L Ageayg76-588WpsUc HealthComment on above:Performed By: #### BMP #### [facility] [address] [place] [address] Dr. Arden Childs.MB [Mass/Vol]0.84 ng/mLNormal<=3.60[facility] Comment on above:Performed By: #### BMP #### [facility] [address] [place] [address] Dr. Arden DawsonOP12.4 pg/mLNormal4.0-51.3TMercy Health St. Rita's Medical CenterComformerly [facility] on above:Result Comment: CUT-OFF POINTS HAVE BEEN ESTABLISHED BASED ON THE FOURTH UNIVERSAL DEFINITIONS OF MYOCARDIAL INFARCTION. THE UPPER REFERENCE LIMIT (URL) OF TROPONIN, DEFINED THE 99TH PERCENTILE OF cTnI DISTRIBUTION IN A REFERENCE POPULATION, HAS BEEN CONFIRMED THE DECISION THRESHOLD FOR PR DIAGNOSIS.Performed By: #### BMP #### [facility] [address] [place] [address] Dr. Arden WHITE ADMITon 28-03-6285ZO [Catalytic activity/Vol]42 U/L Lvakgz70-926SloUc HealthComment on above:Performed By: #### BMP #### [facility] [address] [place] [address] Dr. Arden Childs.MB [Mass/Vol]0.82 ng/mLNormal<=3.60[facility] Comment on above:Performed By: #### BMP #### [facility] [address] [place] [address] Dr. Arden NelsonTROP9.8 pg/mLNormal4.0-51.3The White HospitalComment on above:Result Comment: CUT-OFF POINTS HAVE BEEN ESTABLISHED BASED ON THE FOURTH UNIVERSAL DEFINITIONS OF MYOCARDIAL INFARCTION. THE UPPER REFERENCE LIMIT (URL) OF TROPONIN, DEFINED THE 99TH PERCENTILE OF cTnI DISTRIBUTION IN A REFERENCE POPULATION, HAS BEEN CONFIRMED THE DECISION THRESHOLD FOR PR DIAGNOSIS.Performed By: #### BMP #### [facility] [address] [place] [address] Dr. Arden BoogieO50 ng/mLNormal9-82Uc HealthComment on above: Performed By: #### BMP #### [facility] [address] [place] [address] Dr. Arden Marie AUTO DIFFon [id number] #0.2 103/ulCritically high0.0-0.1 The [facility] HospitalComment on above:Performed By: #### CBC #### [facility] [address] [place] [address] Dr. Arden MagallonBasophils/100 WBC (Bld)2.2 %Critically high0.2-2.0[facility]c HealthComment on above:Performed By: #### CBC #### [facility] [address] [place] [address] Dr. Her ChangEO #1.3 103/ulCritically high0.0-0.7The [facility] HospitalComment on above:Performed By: #### CBC #### [facility] [address] [place] [address] Dr. Arden Carranzaosinophils/100 WBC (Bld)16.5 %Critically high0.9-7.0The [facility] HospitalComment on above:Performed By: #### CBC #### [facility] [address] [place] [address] Dr. Arden Carranzarythrocyte distribution width (RBC) [Ratio]14.3 %Olxnxs29.0-15.0 The [facility] HospitalComment on above:Performed By: #### CBC #### [facility] [address] [place] [address] Dr. Arden MagallonHematocrit (Bld) [Volume fraction]38.3 %Cllhan94.0-48.0The [facility] HospitalComment on above:Performed By: #### CBC #### [facility] [address] [place] [address] Dr. Arden MagallonHemoglobin (Bld) [Mass/Vol]12.6 g/kAQgcabg42.0-16.0The [facility] HospitalComment on above:Performed By: #### CBC #### [facility] [address] [place] [address] Dr. Arden Mathew #0.03 10e3/ulNormal0.00-0.03The [facility] HospitalComment on above:Performed By: #### CBC #### [facility] [address] [place] [address] Dr. Arden Mathew %0.4 %Normal0.0-0.5The [facility] HospitalComment on above: Performed By: #### CBC #### [facility] [address] [place] [address] Dr. Arden Alvarado #2.4 103/ulNormal1.2-3.8The [facility] HospitalComment on above:Performed By: #### CBC #### [facility] [address] [place] [address] Dr. Yilan ChangLymphocytes/100 WBC (Bld)30.0 %Ezlytu59.5-60.0The White HospitalComment on above:Performed By: #### CBC #### [facility] [address] [place] [address] Dr. Arden Rodríguez DIFF REQNONormalThe White HospitalComment on above: Performed By: #### CBC #### [facility] [address] [place] [address] Dr. Arden Torres (RBC) [Entitic mass]30.7 xkBahllc42.7-34.0The White HospitalComment on above:Performed By: #### CBC #### [facility] [address] [place] [address] Dr. Arden Torres (RBC) [Mass/Vol]32.9 g/aYYhhpcx21.9-35.2The White HospitalComment on above:Performed By: #### CBC #### [facility] [address] [place] [address] Dr. Arden Leonard (RBC) [Entitic vol]93.4 vKSjkgai86.0-99.0The White HospitalComment on above:Performed By: #### CBC #### [facility] [address] [place] [address] Dr. Arden Nelson #1.1 103/ulCritically high0.3-0.8[facility] Comment on above:Performed By: #### CBC #### [facility] [address] [place] [address] Dr. Arden Perrinocytes/100 WBC (Bld)14.2 %Critically high1.7-12.0The White HospitalComment on above:Performed By: #### CBC #### [facility] [address] [place] [address] Dr. Arden Patterson #2.9 103/ulNormal1.4-6.5The White HospitalComment on above:Performed By: #### CBC #### [facility] [address] [place] [address] Dr. Arden MagallonNeutrophils/100 WBC (Bld)36.7 %Critically low43.0-75.0The White HospitalComment on above:Performed By: #### CBC #### [facility] [address] [address] [address] Arden MagallonPlatelet mean volume (Bld) [Entitic vol]11.4 fLNormal9.5-13.5The White HospitalComment on above:Performed By: #### CBC #### [facility] [address] [address] [address] Arden MagallonPLT162 103/ciMxurka112-784Tdk White HospitalComment on above: Performed By: #### CBC #### [facility] [address] [place] [address] Dr. Arden MagallonRBC4.10 106/ulCritically low4.20-5.40The White HospitalComment on above:Performed By: #### CBC #### [facility] [address] [place] [address] Dr. Arden MagallonWBC8.0 103/ulNormal4.0-11.0The White HospitalComment on above: Performed By: #### CBC #### [facility] [address] [place] [address] Dr. Arden MagallonPROF CHEM 8 (BAS METB)on 36-11-1958Pdguk gap [Moles/Vol]11.8 mmol/LNormalThe White HospitalComment on above:Performed By: #### BMP #### [facility] [address] [place] [address] Dr. Arden MagallonCalcium [Mass/Vol]9.7 mg/dLNormal8.5-10.1[facility] Comment on above:Performed By: #### BMP #### [facility] [address] [place] [address] Dr. Arden MagallonChloride [Moles/Vol]105 mmol/QQqeymx54-619Syj [facility] Comment on above:Performed By: #### BMP #### [facility] [address] [address] [address] Arden MagallonCO2 [Moles/Vol]25.0 mmol/MJqclox66.0-32.0[facility] Comment on above:Performed By: #### BMP #### [facility] [address] [address] [address] Arden MagallonCreatinine [Mass/Vol]1.07 mg/dLCritically high0.55-1.02The White HospitalComment on above:Performed By: #### BMP #### [facility] [address] [address] [address] Her ChangEGFR-AF YSLWVETZ71 mL/min/1.63t5Ifjnwudjqz low>=60The White HospitalComment on above:Performed By: #### BMP #### [facility] [address] [address] [address] Arden CarranzaGFR-NON AF EVAJHPHA42 mL/min/1.35q0Kigzewwuqv low>=60The White HospitalComment on above:Performed By: #### BMP #### [facility] [address] [address] [address] Arden MagallonGlucose [Mass/Vol]106 mg/yKBbjaqk59-861Bpw [facility] Comment on above:Performed By: #### BMP #### [facility] [address] [address] [address] Arden MagallonPotassium [Moles/Vol]3.8 mmol/LNormal3.5-5.1[facility] Comment on above:Performed By: #### BMP #### [facility] [address] [address] [address] Arden MagallonSodium [Moles/Vol]138 mmol/VJdsqcq314-141Dgr [facility] Comment on above:Performed By: #### BMP #### [facility] [address] [address] [address] Arden MagallonUrea nitrogen [Mass/Vol]18.0 mg/dLNormal7.0-18.0The White HospitalComment on above:Performed By: #### BMP #### [facility] [address] [address] [address] Arden MagallonUrea nitrogen/Creatinine [Mass ratio]16.8 mg/mgNoalThMercy HospitalComment on above:Performed By: #### BMP #### [facility] [address] [place] [address] Dr. Arden KevinC AUTO DIFFon 59-06-6641SDMS #0.2 103/ulCritically high0.0-0.1 The White HospitalComment on above:Performed By: #### CBC #### [facility] [address] [place] [address] Dr. Arden MagallonBasophils/100 WBC (Bld)2.1 %Critically high0.2-2.0The [facility] HospitalComformerly [facility] on above:Performed By: #### CBC #### [facility] [address] [place] [address] Dr. Her ChangEO #1.5 103/ulCritically high0.0-0.7The White HospitalComment on above:Performed By: #### CBC #### [facility] [address] [place] [address] Dr. Arden Carranzaosinophils/100 WBC (Bld)16.6 %Critically high0.9-7.0The [facility] HospitalComformerly [facility] on above:Performed By: #### CBC #### [facility] [address] [place] [address] Dr. Arden Carranzarythrocyte distribution width (RBC) [Ratio]14.1 %Kfunkz28.0-15.0 [facility]Com[facility] on above:Performed By: #### CBC #### [facility] [address] [place] [address] Dr. Arden MagallonHematocrit (Bld) [Volume fraction]37.7 %Wdnrln65.0-48.0[facility] on above:Performed By: #### CBC #### [facility] [address] [place] [address] Dr. Arden MagallonHemoglobin (Bld) [Mass/Vol]12.5 g/eBYnmdjb05.0-16.0The White HospitalComment on above:Performed By: #### CBC #### [facility] [address] [address] [address] Arden Mathew #0.04 10e3/ulCritically high0.00-0.03[facility] Comment on above:Performed By: #### CBC #### [facility] [address] [address] [address] Arden Mathew %0.4 %Normal0.0-0.5The White HospitalComment on above: Performed By: #### CBC #### [facility] [address] [place] [address] Dr. Arden Alvarado #1.8 103/ulNormal1.2-3.8The White HospitalComment on above:Performed By: #### CBC #### [facility] [address] [place] [address] Dr. Arden Vitalehocytes/100 WBC (Bld)19.6 %Critically low20.5-60.0The White HospitalComment on above:Performed By: #### CBC #### [facility] [address] [place] [address] Dr. Arden Rodríguez DIFF REQNONormalThe White HospitalComment on above: Performed By: #### CBC #### [facility] [address] [place] [address] Dr. Arden Torres (RBC) [Entitic mass]31.1 qpKfgcqn96.7-34.0The White HospitalComment on above:Performed By: #### CBC #### [facility] [address] [place] [address] Dr. Arden Torres (RBC) [Mass/Vol]33.2 g/oZLltddd04.9-35.2The White HospitalComment on above:Performed By: #### CBC #### [facility] [address] [place] [address] Dr. Arden Torres (RBC) [Entitic vol]93.8 bJKahufx32.0-99.0The White HospitalComment on above:Performed By: #### CBC #### [facility] [address] [place] [address] Dr. Arden Nelson #1.1 103/ulCritically high0.3-0.8[facility] Comment on above:Performed By: #### CBC #### [facility] [address] [place] [address] Dr. Arden Perrinocytes/100 WBC (Bld)12.1 %Critically high1.7-12.0The White HospitalComment on above:Performed By: #### CBC #### [facility] [address] [place] [address] Dr. Arden Patterson #4.6 103/ulNormal1.4-6.5The White HospitalComment on above:Performed By: #### CBC #### [facility] [address] [place] [address] Dr. Arden Miguelutrophils/100 WBC (Bld)49.2 %Ushbfs01.0-75.0The White HospitalComment on above:Performed By: #### CBC #### [facility] [address] [place] [address] Dr. Arden Villafana mean volume (Bld) [Entitic vol]10.8 fLNormal9.5-13.5The White HospitalComment on above:Performed By: #### CBC #### [facility] [address] [place] [address] Dr. Arden MagallonPLT149 103/ulCritically hul249-235Kez White HospitalComment on above:Performed By: #### CBC #### [facility] [address] [place] [address] Dr. Arden MagallonRBC4.02 106/ulCritically low4.20-5.40The White HospitalComment on above:Performed By: #### CBC #### [facility] [address] [place] [address] Dr. Arden MagallonWBC9.3 103/ulNormal4.0-11.0[facility] on above: Performed By: #### CBC #### [facility] [address] [place] [address] Dr. Arden MagallonCovid-19 PCR ([facility])on 93-50-8776OABS-CoV-2 (COVID-19) RNA ISABELLA+probe Ql (Unsp spec)Not detectedNormalNOT DETECTEDThe [facility] Comment on above:Result Comment: This test is not yet approved or cleared by the [place] FDA. When there are no FDA-approved or cleared tests available, and other criteria are met, FDA can make tests available under an emergency access mechanism called an Emergency Use Authorization (EUA). The EUA for this test is supported by the [place] of Health and Human Service's (HHS's) declaration [...] consistent with SARS-CoV-2.Performed By: #### CBC #### [facility] [address] [place] [address] Dr. Arden MagallonINFLUENZA A AND B AGon 73-55-1024MVMCNTLLFNKTRCity HospitalComformerly [facility] on above:Result Comment: Negative for Flu A protein angiten. Infection due to Flu A cannot be ruled out. FluA angiten in the sample may be below the detection limit of the test.Performed By: #### CBC #### [facility] [address] [place] [address] Dr. rAden MagallonINFLUBNEGHSSelect Medical Specialty Hospital - Canton on above: Result Comment: Negative for Flu B protein antigen. Infection due to Flu B cannot be ruled out. FluB antigen in the sample may be below the detection limit of the test.Performed By: #### CBC #### [facility] [address] [address] [address] Arden Em AGNegativeNormalNEGATIVE SEE COMMENTThe White HospitalComment on above:Performed By: #### CBC #### [facility] [address] [place] [address] Dr. Arden Meeks AGNegativeNormalNEGATIVE SEE COMMENTThe White HospitalComment on above:Performed By: #### CBC #### [facility] [address] [place] [address] Dr. Arden MagallonINTERNAL CONTROLSWithin Normal LimitsNormalWithin Normal Limits The White HospitalComment on above:Performed By: #### CBC #### [facility] [address] [place] [address] Dr. Arden MagallonPROF CHEM 8 (BAS METB)on 46-32-7208Fnpml gap [Moles/Vol]10.8 mmol/LNormalThe White HospitalComment on above:Performed By: #### PT, DDIM #### [facility] [address] [place] [address] Dr. Arden MagallonCalcium [Mass/Vol]9.3 mg/dLNormal8.5-10.1[facility] Comment on above:Performed By: #### PT, DDIM #### [facility] [address] [place] [address] Dr. Arden MagallonChloride [Moles/Vol]107 mmol/YBbksde58-947Rlr [facility] Comment on above:Performed By: #### PT, DDIM #### [facility] [address] [place] [address] Dr. Arden MagallonCO2 [Moles/Vol]28.0 mmol/SSifnkj22.0-32.0[facility] Comment on above:Performed By: #### PT, DDIM #### [facility] [address] [place] [address] Dr. Arden MagallonCreatinine [Mass/Vol]0.98 mg/dLNormal0.55-1.02The White HospitalComment on above:Performed By: #### PT, DDIM #### [facility] [address] [place] [address] Dr. Arden CarranzaGFR-AF CITIZEN OF [place]>60Normal>=60The White HospitalComment on above:Performed By: #### PT, DDIM #### [facility] [address] [place] [address] Dr. Arden CarranzaGFR-NON AF KUTMQAQV42 mL/min/1.96y3Vdezgnxapd low>=60The White HospitalComment on above:Performed By: #### PT, DDIM #### [facility] [address] [place] [address] Dr. Arden MagallonGlucose [Mass/Vol]111 mg/dLCritically kvgu92-454Eil White HospitalComment on above:Performed By: #### PT, DDIM #### [facility] [address] [place] [address] Dr. Arden MagallonPotassium [Moles/Vol]3.8 mmol/LNormal3.5-5.1[facility] Comment on above:Performed By: #### PT, DDIM #### [facility] [address] [place] [address] Dr. Arden Jefferydium [Moles/Vol]142 mmol/SWkyesv118-223IxnUc Health Comment on above:Performed By: #### PT, DDIM #### [facility] [address] [place] [address] Dr. Arden MagallonUrea nitrogen [Mass/Vol]15.0 mg/dLNormal7.0-18.0The White HospitalComment on above:Performed By: #### PT, DDIM #### [facility] [address] [place] [address] Dr. Arden MagallonUrea nitrogen/Creatinine [Mass ratio]15.3 mg/mgNormalThe White HospitalComment on above:Performed By: #### PT, DDIM #### [facility] [address] [place] [address] Dr. Arden MagallonXR CHEST 1 Von [id number] CHEST 1 VEXAMINATION: XR CHEST 1 V [...] Electronically authenticated by: HARJINDER RAMIREZ Date: 2022-09-26 10:22[facility] AUTO DIFFon [id number] #0.2 103/ulCritically high 0.0-0.1The White HospitalComment on above:Performed By: #### CBC #### [facility] [address] [address] [address] Arden MagallonBasophils/100 WBC (Bld)2.0 %Normal0.2-2.0[facility] Comment on above:Performed By: #### CBC #### [facility] [address] [address] [address] Arden Valdes #0.8 103/ulCritically high0.0-0.7The White HospitalComment on above:Performed By: #### CBC #### [facility] [address] [address] [address] Arden Carranzaosinophils/100 WBC (Bld)9.7 %Critically high0.9-7.0The [facility] HospitalComment on above:Performed By: #### CBC #### [facility] [address] [address] [address] Arden Carranzarythrocyte distribution width (RBC) [Ratio]14.2 %Apxgxp34.0-15.0 The White HospitalComment on above:Performed By: #### CBC #### [facility] [address] [address] [address] Arden MagallonHematocrit (Bld) [Volume fraction]39.2 %Cgnwmd89.0-48.0The White HospitalComment on above:Performed By: #### CBC #### [facility] [address] [place] [address] Dr. Arden MagallonHemoglobin (Bld) [Mass/Vol]12.7 g/hDUsoiwo76.0-16.0The White HospitalComment on above:Performed By: #### CBC #### [facility] [address] [place] [address] Dr. Arden Mathew #0.04 10e3/ulCritically high0.00-0.03[facility] Comment on above:Performed By: #### CBC #### [facility] [address] [place] [address] Dr. Arden Mathew %0.5 %Normal0.0-0.5The [facility] HospitalComment on above: Performed By: #### CBC #### [facility] [address] [place] [address] Dr. Arden Alvarado #1.7 103/ulNormal1.2-3.8The [facility] HospitalComment on above:Performed By: #### CBC #### [facility] [address] [place] [address] Dr. Arden Vitalehocytes/100 WBC (Bld)19.2 %Critically low20.5-60.0The [facility] HospitalComment on above:Performed By: #### CBC #### [facility] [address] [place] [address] Dr. Arden Rodríguez DIFF REQNONormalThe White HospitalComment on above: Performed By: #### CBC #### [facility] [address] [place] [address] Dr. Arden Eaton (RBC) [Entitic mass]31.1 wiRtwvfh70.7-34.0The [facility] HospitalComment on above:Performed By: #### CBC #### [facility] [address] [place] [address] Dr. Arden Torres (RBC) [Mass/Vol]32.4 g/bOXskelo55.9-35.2The [facility] HospitalComment on above:Performed By: #### CBC #### [facility] [address] [place] [address] Dr. Arden Leonard (RBC) [Entitic vol]96.1 lARksfxq84.0-99.0The [facility] HospitalComment on above:Performed By: #### CBC #### [facility] [address] [place] [address] Dr. Arden Nelson #0.8 103/ulNormal0.3-0.8The [facility] HospitalComment on above:Performed By: #### CBC #### [facility] [address] [place] [address] Dr. Arden Perrinocytes/100 WBC (Bld)9.5 %Normal1.7-12.0[facility] Comment on above:Performed By: #### CBC #### [facility] [address] [place] [address] Dr. Arden Patterson #5.2 103/ulNormal1.4-6.5The [facility] HospitalComment on above:Performed By: #### CBC #### [facility] [address] [place] [address] Dr. Arden Miguelutrophils/100 WBC (Bld)59.1 %Uujfug20.0-75.0The [facility] HospitalComment on above:Performed By: #### CBC #### [facility] [address] [place] [address] Dr. Arden Salaslet mean volume (Bld) [Entitic vol]11.0 fLNormal9.5-13.5The [facility] HospitalComment on above:Performed By: #### CBC #### [facility] [address] [place] [address] Dr. Arden AyersT167 103/yfIzuaju486-591Ekz White HospitalComment on above: Performed By: #### CBC #### [facility] [address] [place] [address] Dr. Arden MagallonRBC4.08 106/ulCritically low4.20-5.40The [facility] HospitalComment on above:Performed By: #### CBC #### [facility] [address] [place] [address] Dr. Arden MagallonWBC8.7 103/ulNormal4.0-11.0The [facility] HospitalComment on above: Performed By: #### CBC #### [facility] [address] [place] [address] Dr. Arden MagallonPROF CHEM 8 (BAS METB)on 39-76-7739Qpzuy gap [Moles/Vol]10.4 mmol/LNormalThe White HospitalComment on above:Performed By: #### BMP #### [facility] [address] [place] [address] Dr. Arden MagallonCalcium [Mass/Vol]9.9 mg/dLNormal8.5-10.1[facility] Comment on above:Performed By: #### BMP #### [facility] [address] [place] [address] Dr. Arden MagallonChloride [Moles/Vol]104 mmol/DJjsqfr89-315Cmb [facility] Comment on above:Performed By: #### BMP #### [facility] [address] [place] [address] Dr. Arden MagallonCO2 [Moles/Vol]28.0 mmol/QHbyayc39.0-32.0[facility] Comment on above:Performed By: #### BMP #### [facility] [address] [place] [address] Dr. Arden MagallonCreatinine [Mass/Vol]1.20 mg/dLCritically high0.55-1.02The [facility] HospitalComment on above:Performed By: #### BMP #### [facility] [address] [place] [address] Dr. Her ChangEGFR-AF HPQEKCER96 mL/min/1.30w9Hloyfqctrn low>=60The [facility] HospitalComment on above:Performed By: #### BMP #### [facility] [address] [address] [address] Arden CarranzaGFR-NON AF ZFLYXKQD83 mL/min/1.37c7Mhthlmorux low>=60The [facility] HospitalComment on above:Performed By: #### BMP #### [facility] [address] [address] [address] Arden MagallonGlucose [Mass/Vol]133 mg/dLCritically itgi36-437Lje White HospitalComment on above:Performed By: #### BMP #### [facility] [address] [address] [address] Arden MagallonPotassium [Moles/Vol]3.4 mmol/LCritically low3.5-5.1The [facility] HospitalComment on above:Performed By: #### BMP #### [facility] [address] [place] [address] Dr. Arden MagallonSodium [Moles/Vol]139 mmol/RSegswq573-515Tsz [facility] Comment on above:Performed By: #### BMP #### [facility] [address] [address] [address] Arden MagallonUrea nitrogen [Mass/Vol]19.0 mg/dLCritically high7.0-18.0The [facility] HospitalComment on above:Performed By: #### BMP #### [facility] [address] [place] [address] Dr. Arden MagallonUrea nitrogen/Creatinine [Mass ratio]15.8 mg/mgNormalThe White HospitalComment on above:Performed By: #### BMP #### [facility] [address] [place] [address] Dr. Arden Khalil 48-07-2555JHC1.918 uIU/mLNormal0.358-3.740The [facility] HospitalComment on above:Performed By: #### BMP #### [facility] [address] [place] [address] Dr. Arden Gomez 29-92-2184Skgkvkicrho peptide B (Bld) [Mass/Vol]366.0 pg/mL Normal<=1,800.0The White HospitalComment on above:Performed By: #### BNP, CMP #### [facility] [address] [place] [address] Dr. Arden Marie AUTO DIFFon [id number] #0.1 103/ulNormal0.0-0.1The [facility] on above:Performed By: #### CBC #### [facility] [address] [place] [address] Dr. Arden MagallonBasophils/100 WBC (Bld)1.7 %Normal0.2-2.0[facility] Comment on above:Performed By: #### CBC #### [facility] [address] [place] [address] Dr. Arden Valdes #0.7 103/ulNormal0.0-0.7The [facility] on above: Performed By: #### CBC #### [facility] [address] [place] [address] Dr. Arden Carranzaosinophils/100 WBC (Bld)9.1 %Critically high0.9-7.0The [facility] on above:Performed By: #### CBC #### [facility] [address] [place] [address] Dr. Arden Carranzarythrocyte distribution width (RBC) [Ratio]14.4 %Rzomun70.0-15.[address] [facility]ment on above:Performed By: #### CBC #### [facility] [address] [place] [address] Dr. Arden MagallonHematocrit (Bld) [Volume fraction]39.0 %Lgxgsf98.0-48.0The [facility] HospitalComment on above:Performed By: #### CBC #### [facility] [address] [place] [address] Dr. Arden MagallonHemoglobin (Bld) [Mass/Vol]12.8 g/aZOlvadt31.0-16.0The [facility] on above:Performed By: #### CBC #### [facility] [address] [place] [address] Dr. Arden Mathew #0.02 10e3/ulNormal0.00-0.03The [facility] HospitalComment on above:Performed By: #### CBC #### [facility] [address] [place] [address] Dr. Arden Mathew %0.3 %Normal0.0-0.5The [facility] HospitalComment on above: Performed By: #### CBC #### [facility] [address] [place] [address] Dr. Arden Alvarado #1.8 103/ulNormal1.2-3.8The [facility] HospitalComment on above:Performed By: #### CBC #### [facility] [address] [place] [address] Dr. Arden Vitalehocytes/100 WBC (Bld)23.6 %Hpqqcn39.5-60.0The [facility] HospitalComment on above:Performed By: #### CBC #### [facility] [address] [place] [address] Dr. Arden FerroUAL DIFF REQNONormalThe White HospitalComment on above: Performed By: #### CBC #### [facility] [address] [place] [address] Dr. Arden Torres (RBC) [Entitic mass]31.0 zlQxjtzh06.7-34.0The [facility] HospitalComment on above:Performed By: #### CBC #### [facility] [address] [place] [address] Dr. Arden Torres (RBC) [Mass/Vol]32.8 g/wEJgxxcp07.9-35.2The [facility] HospitalComment on above:Performed By: #### CBC #### [facility] [address] [place] [address] Dr. Arden Torres (RBC) [Entitic vol]94.4 aRDgjbdd12.0-99.0The [facility] HospitalComment on above:Performed By: #### CBC #### [facility] [address] [place] [address] Dr. Arden Nelson #1.1 103/ulCritically high0.3-0.8[facility] Comment on above:Performed By: #### CBC #### [facility] [address] [address] [address] Arden Perrinocytes/100 WBC (Bld)15.2 %Critically high1.7-12.0The [facility] HospitalComment on above:Performed By: #### CBC #### [facility] [address] [place] [address] Dr. Arden Patterson #3.8 103/ulNormal1.4-6.5The [facility] HospitalComment on above:Performed By: #### CBC #### [facility] [address] [place] [address] Dr. Arden Miguelutrophils/100 WBC (Bld)50.1 %Mkijti08.0-75.0The [facility] HospitalComment on above:Performed By: #### CBC #### [facility] [address] [place] [address] Dr. Arden Salaslet mean volume (Bld) [Entitic vol]11.0 fLNormal9.5-13.5The [facility] HospitalComment on above:Performed By: #### CBC #### [facility] [facility] [address] [place] [address] Dr. Arden MagallonPLT149 103/ulCritically dle650-086Rko White HospitalComment on above:Performed By: #### CBC #### [facility] [address] [place] [address] Dr. Arden MagallonRBC4.13 106/ulCritically low4.20-5.40The White HospitalComment on above:Performed By: #### CBC #### [facility] [address] [place] [address] Dr. Arden MagallonWBC7.5 103/ulNormal4.0-11.0The [facility] HospitalComment on above: Performed By: #### CBC #### [facility] [address] [place] [address] Dr. Arden AdanDIMERon 65-11-3136Z-DIMER0.32 mg/L FEUNormal<=0.59The [facility] on above:Performed By: #### PT, DDIM #### [facility] [address] [place] [address] Dr. Arden Crespo COMMENTSSEE [facility] on above:Result Comment: Increases in D-Dimer [...] hospitalization. Performed By: #### PT, DDIM #### [facility] [address] [place] [address] Dr. Arden MagallonPROAnshu 14(COMP METB)on 21-42-7617Xckheri [Mass/Vol]3.5 g/dLNormal 3.4-5.0The [facility] on above:Performed By: #### BNP, CMP #### [facility] [address] [place] [address] Dr. Arden MagallonAlbumin/Globulin [Mass ratio]1.2 {ratio}NormalThe [facility] on above:Performed By: #### BNP, CMP #### [facility] [address] [place] [address] Dr. Arden Amos [Catalytic activity/Vol]57 U/FFfqgwe59-444Ipu [facility] on above:Performed By: #### BNP, CMP #### [facility] [address] [place] [address] Dr. Arden Wyman [Catalytic activity/Vol]16 U/QNrtqgo94-11Aeu [facility] on above:Performed By: #### BNP, CMP #### [facility] [address] [place] [address] Dr. Arden Lopez gap [Moles/Vol]9.1 mmol/LNormalThe White HospitalComment on above:Performed By: #### BNP, CMP #### [facility] [address] [place] [address] Dr. Arden MagallonAST [Catalytic activity/Vol]17 U/GVxlxed08-42Ait [facility] HospitalComment on above:Performed By: #### BNP, CMP #### [facility] [address] [place] [address] Dr. Arden MagallonBilirubin [Mass/Vol]0.3 mg/dLNormal0.2-1.0The [facility] Comment on above:Performed By: #### BNP, CMP #### [facility] [address] [place] [address] Dr. Arden MagallonCalcium [Mass/Vol]9.6 mg/dLNormal8.5-10.1The [facility] Comment on above:Performed By: #### BNP, CMP #### [facility] [address] [place] [address] Dr. Arden MagallonChloride [Moles/Vol]106 mmol/USxtybq35-593Ebl [facility] Comment on above:Performed By: #### BNP, CMP #### [facility] [address] [place] [address] Dr. Arden MagallonCO2 [Moles/Vol]24.9 mmol/SWhgott42.0-32.0The [facility] Comment on above:Performed By: #### BNP, CMP #### [facility] [address] [place] [address] Dr. Arden MagallonCreatinine [Mass/Vol]1.06 mg/dLCritically high0.55-1.02The [facility] HospitalComment on above:Performed By: #### BNP, CMP #### [facility] [address] [place] [address] Dr. Arden CarranzaGFR-AF CITIZEN OF [place]=60Normal>=60The [facility] HospitalComment on above:Performed By: #### BNP, CMP #### [facility] [address] [place] [address] Dr. Arden CarranzaGFR-NON AF MERJXRSZ53 mL/min/1.18f7Oewogvvoxu low>=60The [facility] HospitalComment on above:Performed By: #### BNP, CMP #### [facility] [address] [address] [address] Arden MagallonGlobulin (S) [Mass/Vol]3.0 g/dLNormalThMercy HospitalComment on above:Performed By: #### BNP, CMP #### [facility] [address] [address] [address] Arden MagallonGlucose [Mass/Vol]111 mg/dLCritically qzfe37-138Phe [facility] HospitalComment on above:Performed By: #### BNP, CMP #### [facility] [address] [place] [address] Dr. Arden MagallonPotassium [Moles/Vol]4.0 mmol/LNormal3.5-5.1The [facility] Comment on above:Performed By: #### BNP, CMP #### [facility] [address] [place] [address] Dr. Arden MagallonProtein [Mass/Vol]6.5 g/dLNormal6.4-8.2The [facility] Comment on above:Performed By: #### BNP, CMP #### [facility] [address] [place] [address] Dr. Arden MagallonSodium [Moles/Vol]136 mmol/ACojcqh475-053Oyq [facility] Comment on above:Performed By: #### BNP, CMP #### [facility] [address] [place] [address] Dr. Arden MagallonUrea nitrogen [Mass/Vol]16.0 mg/dLNormal7.0-18.0The [facility] HospitalComment on above:Performed By: #### BNP, CMP #### [facility] [address] [place] [address] Dr. Arden MagallonUrea nitrogen/Creatinine [Mass ratio]15.1 mg/mgNormalThe White HospitalComment on above:Performed By: #### BNP, CMP #### [facility] [address] [place] [address] Dr. Arden Green, HIGH SENSITIVITYon 64-24-5225EHORZM0.3 pg/mLNormal 4.0-51.3The [facility] HospitalComment on above:Result Comment: CUT-OFF POINTS HAVE BEEN ESTABLISHED BASED ON THE FOURTH UNIVERSAL DEFINITIONS OF MYOCARDIAL INFARCTION. THE UPPER REFERENCE LIMIT (URL) OF TROPONIN, DEFINED THE 99TH PERCENTILE OF cTnI DISTRIBUTION IN A REFERENCE POPULATION, HAS BEEN CONFIRMED THE DECISION THRESHOLD FOR PR DIAGNOSIS.Performed By: #### BNP, CMP #### [facility] [address] [place] [address] Dr. Arden MagallonXR CHEST 1 Von [id number] CHEST 1 VEXAMINATION: XR CHEST 1 V, [...] Electronically authenticated by: BERNIE NAVARRO Date: 2022-09-18 16:[address] [place] [address] AUTO DIFFon [id number] #0.1 103/ulNormal0.0-0.1The White HospitalComment on above:Performed By: #### BMP #### [facility] [address] [place] [address] Dr. Arden MagallonBasophils/100 WBC (Bld)2.3 %Critically high0.2-2.0The [facility] HospitalComment on above:Performed By: #### BMP #### [facility] [address] [place] [address] Dr. Arden CarranzaO #0.5 103/ulNormal0.0-0.7The [facility] HospitalComment on above: Performed By: #### BMP #### [facility] [address] [place] [address] Dr. Arden Carranzaosinophils/100 WBC (Bld)8.0 %Critically high0.9-7.0The [facility] HospitalComment on above:Performed By: #### BMP #### [facility] [address] [place] [address] Dr. Arden Carranzarythrocyte distribution width (RBC) [Ratio]13.8 %Dhxcxu10.0-15.0 The White HospitalComment on above:Performed By: #### BMP #### [facility] [address] [place] [address] Dr. Arden MagallonHematocrit (Bld) [Volume fraction]40.5 %Zyxgts93.0-48.0The [facility] HospitalComment on above:Performed By: #### BMP #### [facility] [address] [place] [address] Dr. Arden MagallonHemoglobin (Bld) [Mass/Vol]13.5 g/uHQyfmax12.0-16.0The [facility] HospitalComment on above:Performed By: #### BMP #### [facility] [address] [place] [address] Dr. Arden Mathew #0.01 10e3/ulNormal0.00-0.03The [facility] HospitalComment on above:Performed By: #### BMP #### [facility] [address] [place] [address] Dr. Arden Mathew %0.2 %Normal0.0-0.5The [facility] HospitalComment on above: Performed By: #### BMP #### [facility] [address] [place] [address] Dr. Arden AlcantaraMPH #1.5 103/ulNormal1.2-3.8The [facility] HospitalComment on above:Performed By: #### BMP #### [facility] [address] [place] [address] Dr. Arden Alcantaramphocytes/100 WBC (Bld)24.9 %Fccgvx68.5-60.0The [facility] HospitalComment on above:Performed By: #### BMP #### [facility] [address] [place] [address] Dr. Arden Rodríguez DIFF REQNONormalThe White HospitalComment on above: Performed By: #### BMP #### [facility] [address] [place] [address] Dr. Arden Torres (RBC) [Entitic mass]31.1 uuTpobuz24.7-34.0The [facility] HospitalComment on above:Performed By: #### BMP #### [facility] [address] [place] [address] Dr. Arden Torres (RBC) [Mass/Vol]33.3 g/qEUhsoqt38.9-35.2The [facility] HospitalComment on above:Performed By: #### BMP #### [facility] [address] [place] [address] Dr. Arden Torres (RBC) [Entitic vol]93.3 vAOdxztz00.0-99.0The [facility] HospitalComment on above:Performed By: #### BMP #### [facility] [address] [place] [address] Dr. Arden Nelson #1.0 103/ulCritically high0.3-0.8The [facility] Comment on above:Performed By: #### BMP #### [facility] [address] [place] [address] Dr. Arden Perrinocytes/100 WBC (Bld)16.0 %Critically high1.7-12.0The [facility] HospitalComment on above:Performed By: #### BMP #### [facility] [address] [place] [address] Dr. Arden Patterson #2.9 103/ulNormal1.4-6.5The [facility] HospitalComment on above:Performed By: #### BMP #### [facility] [address] [address] [address] Arden MagallonNeutrophils/100 WBC (Bld)48.6 %Btqzev87.0-75.0The [facility] HospitalComment on above:Performed By: #### BMP #### [facility] [address] [place] [address] Dr. Arden MagallonPlatelet mean volume (Bld) [Entitic vol]10.8 fLNormal9.5-13.5The [facility] HospitalComment on above:Performed By: #### BMP #### [facility] [address] [place] [address] Dr. Arden MagallonPLT138 103/ulCritically trd241-528Uig [facility] HospitalComment on above:Performed By: #### BMP #### [facility] [address] [place] [address] Dr. Arden MagallonRBC4.34 106/ulNormal4.20-5.40The [facility] HospitalComment on above:Performed By: #### BMP #### [facility] [address] [place] [address] Dr. Arden MagallonWBC6.0 103/ulNormal4.0-11.0The [facility] HospitalComment on above: Performed By: #### BMP #### [facility] [address] [place] [address] Dr. Arden MagallonPROF CHEM 8 (BAS METB)on 96-93-1880Zztgm gap [Moles/Vol]9.0 mmol/LNormalThe White HospitalComment on above:Performed By: #### PT, DDIM #### [facility] [address] [place] [address] Dr. Arden MagallonCalcium [Mass/Vol]9.6 mg/dLNormal8.5-10.1The [facility] Comment on above:Performed By: #### PT, DDIM #### [facility] [address] [place] [address] Dr. Arden MagallonChloride [Moles/Vol]105 mmol/LLaegof98-554Xpx [facility] Comment on above:Performed By: #### PT, DDIM #### [facility] [address] [address] [address] Arden MagallonCO2 [Moles/Vol]29.1 mmol/NUcvtyu31.0-32.0The [facility] Comment on above:Performed By: #### PT, DDIM #### [facility] [address] [address] [address] Arden MagallonCreatinine [Mass/Vol]1.00 mg/dLNormal0.55-1.02Uc HealthComment on above:Performed By: #### PT, DDIM #### [facility] [address] [address] [address] Arden CarranzaGFR-AF CITIZEN OF [place]>60Normal>=60The [facility] HospitalComment on above:Performed By: #### PT, DDIM #### [facility] [address] [place] [address] Dr. Arden CarranzaGFR-NON AF ZAICYMCV00 mL/min/1.78i5Nbynbkuvxx low>=60The [facility] HospitalComment on above:Performed By: #### PT, DDIM #### [facility] [address] [address] [address] Arden MagallonGlucose [Mass/Vol]116 mg/dLCritically yvpd52-285Vuc [facility] HospitalComment on above:Performed By: #### PT, DDIM #### [facility] [address] [address] [address] Arden MagallonPotassium [Moles/Vol]4.1 mmol/LNormal3.5-5.1The [facility] Comment on above:Performed By: #### PT, DDIM #### [facility] [address] [address] [address] Arden MagallonSodium [Moles/Vol]139 mmol/EQrycnr169-776Hmd [facility] Comment on above:Performed By: #### PT, DDIM #### [facility] [address] [address] [address] Arden MagallonUrea nitrogen [Mass/Vol]15.0 mg/dLNormal7.0-18.0The [facility] HospitalComment on above:Performed By: #### PT, DDIM #### [facility] [address] [place] [address] Dr. Arden MagallonUrea nitrogen/Creatinine [Mass ratio]15.0 mg/mgNormalThe [facility] HospitalComment on above:Performed By: #### PT, DDIM #### [facility] [address] [place] [address] Dr. Arden KevinC AUTO DIFFon [id number] #0.2 103/ulCritically high0.0-0.1 [facility] HealthComment on above:Performed By: #### BNP, CMP #### [facility] [address] [place] [address] Dr. Arden MagallonBasophils/100 WBC (Bld)2.7 %Critically high0.2-2.0The [facility] HospitalComment on above:Performed By: #### BNP, CMP #### [facility] [address] [place] [address] Dr. Arden Valdes #0.5 103/ulNormal0.0-0.7The [facility] HospitalComment on above: Performed By: #### BNP, CMP #### [facility] [address] [place] [address] Dr. Arden Carranzaosinophils/100 WBC (Bld)6.7 %Normal0.9-7.0[facility] Comment on above:Performed By: #### BNP, CMP #### [facility] [address] [place] [address] Dr. Arden Carranzarythrocyte distribution width (RBC) [Ratio]14.3 %Shyrgv01.0-15.0 U[facility] HealthComment on above:Performed By: #### BNP, CMP #### [facility] [address] [place] [address] Dr. Arden MagallonHematocrit (Bld) [Volume fraction]43.1 %Ohgksa13.0-48.0The [facility] HospitalComment on above:Performed By: #### BNP, CMP #### [facility] [address] [place] [address] Dr. Arden MagallonHemoglobin (Bld) [Mass/Vol]14.5 g/dVHogzcq50.0-16.0The [facility] HospitalComment on above:Performed By: #### BNP, CMP #### [facility] [address] [place] [address] Dr. Arden Mathew #0.02 10e3/ulNormal0.00-0.03The [facility] HospitalComment on above:Performed By: #### BNP, CMP #### [facility] [address] [place] [address] Dr. Arden Mathew %0.3 %Normal0.0-0.5The [facility] HospitalComment on above: Performed By: #### BNP, CMP #### [facility] [address] [place] [address] Dr. Arden Alvarado #3.1 103/ulNormal1.2-3.8The [facility] HospitalComment on above:Performed By: #### BNP, CMP #### [facility] [address] [place] [address] Dr. Arden Vitalehocytes/100 WBC (Bld)41.0 %Rpllkg76.5-60.0The [facility] on above:Performed By: #### BNP, CMP #### [facility] [address] [place] [address] Dr. Arden FerroUAL DIFF REQNONormalThe [facility] HospitalComment on above: Performed By: #### BNP, CMP #### [facility] [address] [place] [address] Dr. Arden Eaton (RBC) [Entitic mass]31.6 smNibxdw44.7-34.0The [facility] HospitalComment on above:Performed By: #### BNP, CMP #### [facility] [address] [place] [address] Dr. Arden Torres (RBC) [Mass/Vol]33.6 g/gNDwklcb17.9-35.2The [facility] HospitalComment on above:Performed By: #### BNP, CMP #### [facility] [address] [place] [address] Dr. Arden Leonard (RBC) [Entitic vol]93.9 uTWbmlhg33.0-99.0The [facility] HospitalComment on above:Performed By: #### BNP, CMP #### [facility] [address] [place] [address] Dr. Arden Nelson #0.8 103/ulNormal0.3-0.8The [facility] HospitalComment on above:Performed By: #### BNP, CMP #### [facility] [address] [place] [address] Dr. Arden Perrinocytes/100 WBC (Bld)10.9 %Normal1.7-12.0The [facility] Comment on above:Performed By: #### BNP, CMP #### [facility] [address] [place] [address] Dr. Arden Patterson #2.9 103/ulNormal1.4-6.5The [facility] HospitalComment on above:Performed By: #### BNP, CMP #### [facility] [address] [place] [address] Dr. Arden Martinsophils/100 WBC (Bld)38.4 %Critically low43.0-75.0The [facility] HospitalComment on above:Performed By: #### BNP, CMP #### [facility] [address] [place] [address] Dr. Arden Salaslet mean volume (Bld) [Entitic vol]10.8 fLNormal9.5-13.5The [facility] HospitalComment on above:Performed By: #### BNP, CMP #### [facility] [address] [place] [address] Dr. Arden AyersT165 103/glOkprun472-089Vti [facility] HospitalComment on above: Performed By: #### BNP, CMP #### [facility] [address] [place] [address] Dr. Arden MagallonRBC4.59 106/ulNormal4.20-5.40The [facility] on above:Performed By: #### BNP, CMP #### [facility] [address] [place] [address] Dr. Arden MagallonWBC7.5 103/ulNormal4.0-11.0The [facility]ment on above: Performed By: #### BNP, CMP #### [facility] [address] [place] [address] Dr. Arden MagallonPROF 14(COMP METB)on 79-12-0273Skgjhqw [Mass/Vol]3.9 g/dLNormal 3.4-5.0The [facility] on above:Performed By: #### PT, DDIM #### [facility] [address] [place] [address] Dr. Arden MagallonAlbumin/Globulin [Mass ratio]1.2 {ratio}NormalThe [facility] HospitalComformerly [facility] on above:Performed By: #### PT, DDIM #### [facility] [address] [place] [address] Dr. Arden Amos [Catalytic activity/Vol]69 U/GKhraqn88-330Gwd [facility] on above:Performed By: #### PT, DDIM #### [facility] [address] [place] [address] Dr. Arden Wyman [Catalytic activity/Vol]16 U/DJxhrst80-98Lvl [facility] on above:Performed By: #### PT, DDIM #### [facility] [address] [place] [address] Dr. Arden Lopez gap [Moles/Vol]8.6 mmol/LNormalThe [facility] HospitalComformerly [facility] on above:Performed By: #### PT, DDIM #### [facility] [address] [place] [address] Dr. Arden Cabrera [Catalytic activity/Vol]14 U/LCritically omt03-31Rlj [facility] on above:Performed By: #### PT, DDIM #### [facility] [address] [address] [address] Arden MagallonBilirubin [Mass/Vol]0.3 mg/dLNormal0.2-1.0The [facility] Comment on above:Performed By: #### PT, DDIM #### [facility] [address] [address] [address] Arden MagallonCalcium [Mass/Vol]9.5 mg/dLNormal8.5-10.1The [facility] Comment on above:Performed By: #### PT, DDIM #### [facility] [address] [address] [address] Arden MagallonChloride [Moles/Vol]104 mmol/COcitxp09-419Fcz [facility] Comment on above:Performed By: #### PT, DDIM #### [facility] [address] [place] [address] Dr. Arden MagallonCO2 [Moles/Vol]29.2 mmol/QWqqcli60.0-32.0The [facility] Comment on above:Performed By: #### PT, DDIM #### [facility] [address] [address] [address] Arden MagallonCreatinine [Mass/Vol]1.25 mg/dLCritically high0.55-1.02The [facility] HospitalComment on above:Performed By: #### PT, DDIM #### [facility] [address] [address] [address] Arden CarranzaGFR-AF KTKHQXQV62 mL/min/1.17t7Gcsdrdkrmj low>=60The [facility] HospitalComment on above:Performed By: #### PT, DDIM #### [facility] [address] [address] [address] Arden CarranzaGFR-NON AF MWRYTRKR58 mL/min/1.14z1Squdjofgtv low>=60The [facility] HospitalComment on above:Performed By: #### PT, DDIM #### [facility] [address] [address] [address] Arden MagallonGlobulin (S) [Mass/Vol]3.3 g/dLNoTwin City HospitalComment on above:Performed By: #### PT, DDIM #### [facility] [address] [place] [address] Dr. Arden MagallonGlucose [Mass/Vol]119 mg/dLCritically ihtp20-965Guz [facility] HospitalComment on above:Performed By: #### PT, DDIM #### [facility] [address] [place] [address] Dr. Arden MagallonPotassium [Moles/Vol]3.8 mmol/LNormal3.5-5.1The [facility] Comment on above:Performed By: #### PT, DDIM #### [facility] [address] [place] [address] Dr. Arden MagallonProtein [Mass/Vol]7.2 g/dLNormal6.4-8.2The [facility] Comment on above:Performed By: #### PT, DDIM #### [facility] [address] [place] [address] Dr. Arden MagallonSodium [Moles/Vol]138 mmol/CAxzcxb038-664Kcg [facility] Comment on above:Performed By: #### PT, DDIM #### [facility] [address] [place] [address] Dr. Arden MagallonUrea nitrogen [Mass/Vol]24.0 mg/dLCritically high7.0-18.0The [facility] HospitalComment on above:Performed By: #### PT, DDIM #### [facility] [address] [place] [address] Dr. Arden Jones nitrogen/Creatinine [Mass ratio]19.2 mg/mgNoTwin City HospitalComment on above:Performed By: #### PT, DDIM #### [facility] [address] [place] [address] Dr. Arden Gomez 51-63-5311Ldnpousntid peptide B (Bld) [Mass/Vol]427.0 pg/mL Normal<=1,800.0The [facility] HospitalComment on above:Performed By: #### PT, DDIM #### [facility] [address] [address] [address] Arden Caraballo CINDY ADMITon 66-45-5732FJ [Catalytic activity/Vol]56 U/L Lvuebs60-604GejMercy Health St. Rita's Medical Centerment on above:Performed By: #### PT, DDIM #### [facility] [address] [address] [address] Arden Childs.MB [Mass/Vol]1.41 ng/mLNormal<=3.60The [facility] Comment on above:Performed By: #### PT, DDIM #### [facility] [address] [place] [address] Dr. Arden MagallonHSTROP9.0 pg/mLNormal4.0-51.3The [facility] on above:Result Comment: CUT-OFF POINTS HAVE BEEN ESTABLISHED BASED ON THE FOURTH UNIVERSAL DEFINITIONS OF MYOCARDIAL INFARCTION. THE UPPER REFERENCE LIMIT (URL) OF TROPONIN, DEFINED THE 99TH PERCENTILE OF cTnI DISTRIBUTION IN A REFERENCE POPULATION, HAS BEEN CONFIRMED THE DECISION THRESHOLD FOR PR DIAGNOSIS.Performed By: #### PT, DDIM #### [facility] [address] [place] [address] Dr. Arden Chua99 ng/mLCritically high9-82The [facility] on above:Performed By: #### PT, DDIM #### [facility] [address] [place] [address] Dr. Arden Marie AUTO DIFFon 09-90-1883GXDC #0.2 103/ulCritically high0.0-0.1 The [facility] HospitalComment on above:Performed By: #### CBC #### [facility] [address] [place] [address] Dr. Arden MagallonBasophils/100 WBC (Bld)2.2 %Critically high0.2-2.0The [facility] Hospitalment on above:Performed By: #### CBC #### [facility] [address] [place] [address] Dr. Adren Valdes #0.4 103/ulNormal0.0-0.7The [facility] HospitalComment on above: Performed By: #### CBC #### [facility] [address] [place] [address] Dr. Arden Carranzaosinophils/100 WBC (Bld)5.1 %Normal0.9-7.0The [place] on above:Performed By: #### CBC #### [facility] [address] [place] [address] Dr. Arden Carranzarythrocyte distribution width (RBC) [Ratio]14.1 %Ddzbyb61.0-15.0 The [facility] HospitalComment on above:Performed By: #### CBC #### [facility] [address] [place] [address] Dr. Arden MagallonHematocrit (Bld) [Volume fraction]41.2 %Ghgncx01.0-48.0The [facility] HospitalComment on above:Performed By: #### CBC #### [facility] [address] [place] [address] Dr. Arden MagallonHemoglobin (Bld) [Mass/Vol]13.6 g/vZCwhgie77.0-16.0The [facility] HospitalComment on above:Performed By: #### CBC #### [facility] [address] [place] [address] Dr. Arden Mathew #0.03 10e3/ulNormal0.00-0.03The [facility] HospitalComment on above:Performed By: #### CBC #### [facility] [address] [place] [address] Dr. Arden Mathew %0.4 %Normal0.0-0.5The [facility] HospitalComment on above: Performed By: #### CBC #### [facility] [address] [place] [address] Dr. Arden VitaleH #2.4 103/ulNormal1.2-3.8The [facility] HospitalComment on above:Performed By: #### CBC #### [facility] [address] [place] [address] Dr. Arden Alcantaramphocytes/100 WBC (Bld)30.1 %Zgyolp07.5-60.0The [facility] HospitalComment on above:Performed By: #### CBC #### [facility] [address] [place] [address] Dr. Arden Rodríguez DIFF REQNONormalThe [facility] HospitalComment on above: Performed By: #### CBC #### [facility] [address] [place] [address] Dr. Arden Torres (RBC) [Entitic mass]30.8 xcBqprvy88.7-34.0The [place] HospitalComment on above:Performed By: #### CBC #### [facility] [address] [place] [address] Dr. Arden Torres (RBC) [Mass/Vol]33.0 g/iMKoksph15.9-35.2The White HospitalComment on above:Performed By: #### CBC #### [facility] [address] [place] [address] Dr. Arden Leonard (RBC) [Entitic vol]93.4 xDNuzsrf73.0-99.0The White HospitalComment on above:Performed By: #### CBC #### [facility] [address] [place] [address] Dr. Arden Nelson #0.8 103/ulNormal0.3-0.8The White HospitalComment on above:Performed By: #### CBC #### [facility] [address] [place] [address] Dr. Arden Perrinocytes/100 WBC (Bld)9.8 %Normal1.7-12.0[facility] Comment on above:Performed By: #### CBC #### [facility] [address] [place] [address] Dr. Arden Patterson #4.2 103/ulNormal1.4-6.5The White HospitalComment on above:Performed By: #### CBC #### [facility] [address] [place] [address] Dr. Yilan ChangNeutrophils/100 WBC (Bld)52.4 %Xpalki34.0-75.0The White HospitalComment on above:Performed By: #### CBC #### [facility] [address] [place] [address] Dr. Arden Villafana mean volume (Bld) [Entitic vol]10.7 fLNormal9.5-13.5The White HospitalComment on above:Performed By: #### CBC #### [facility] [address] [place] [address] Dr. Arden MagallonPLT154 103/ytYbrxhy534-726Ook [facility] HospitalComformerly [facility] on above: Performed By: #### CBC #### [facility] [address] [place] [address] Dr. Arden MagallonRBC4.41 106/ulNormal4.20-5.40The [facility] on above:Performed By: #### CBC #### [facility] [address] [place] [address] Dr. Arden MagallonWBC8.1 103/ulNormal4.0-11.0The [facility] HospitalComformerly [facility] on above: Performed By: #### CBC #### [facility] [address] [place] [address] Dr. Arden Madsen 14(COMP METB)on 54-53-5936Bbrjmql [Mass/Vol]3.7 g/dLNormal 3.4-5.0The [facility] HospitalComment on above:Performed By: #### PT, DDIM #### [facility] [address] [place] [address] Dr. Arden MagallonAlbumin/Globulin [Mass ratio]1.2 {ratio}NormalThe [facility] on above:Performed By: #### PT, DDIM #### [facility] [address] [place] [address] Dr. Arden PughP [Catalytic activity/Vol]57 U/DYcumkk04-075Ehq [facility] on above:Performed By: #### PT, DDIM #### [facility] [address] [address] [address] Arden PughT [Catalytic activity/Vol]17 U/GAlatfh36-87Tfe [facility] HospitalComment on above:Performed By: #### PT, DDIM #### [facility] [address] [place] [address] Dr. Arden MagallonAnion gap [Moles/Vol]9.1 mmol/LNormalThe White HospitalComment on above:Performed By: #### PT, DDIM #### [facility] [address] [place] [address] Dr. Arden MagallonAST [Catalytic activity/Vol]12 U/LCritically utm67-06Adl [facility] HospitalComment on above:Performed By: #### PT, DDIM #### [facility] [address] [place] [address] Dr. Arden MagallonBilirubin [Mass/Vol]0.6 mg/dLNormal0.2-1.0[facility] Comment on above:Performed By: #### PT, DDIM #### [facility] [address] [place] [address] Dr. Arden MagallonCalcium [Mass/Vol]9.5 mg/dLNormal8.5-10.1[facility] Comment on above:Performed By: #### PT, DDIM #### [facility] [address] [place] [address] Dr. Arden MagallonChloride [Moles/Vol]105 mmol/LOamkca03-938Jkb [facility] Comment on above:Performed By: #### PT, DDIM #### [facility] [address] [place] [address] Dr. Arden MagallonCO2 [Moles/Vol]27.9 mmol/IOslzze04.0-32.0[facility] Comment on above:Performed By: #### PT, DDIM #### [facility] [address] [place] [address] Dr. Arden MagallonCreatinine [Mass/Vol]0.97 mg/dLNormal0.55-1.02The [facility] HospitalComment on above:Performed By: #### PT, DDIM #### [facility] [address] [address] [address] Arden CarranzaGFR-AF CITIZEN OF [place]>60Normal>=60The White HospitalComment on above:Performed By: #### PT, DDIM #### [facility] [address] [address] [address] Arden CarranzaGFR-NON AF YNTOPXGY54 mL/min/1.23x5Kgojyieysx low>=60The [facility] HospitalComment on above:Performed By: #### PT, DDIM #### [facility] [address] [address] [address] Arden MagallonGlobulin (S) [Mass/Vol]3.0 g/dLNormalThe White HospitalComment on above:Performed By: #### PT, DDIM #### [facility] [address] [address] [address] Arden MagallonGlucose [Mass/Vol]105 mg/wNCyxkin07-891Dba [facility] Comment on above:Performed By: #### PT, DDIM #### [facility] [address] [address] [address] Arden MagallonPotassium [Moles/Vol]4.0 mmol/LNormal3.5-5.1The [facility] Comment on above:Performed By: #### PT, DDIM #### [facility] [address] [address] [address] Arden MagallonProtein [Mass/Vol]6.7 g/dLNormal6.4-8.2The [facility] Comment on above:Performed By: #### PT, DDIM #### [facility] [address] [address] [address] Arden MagallonSodium [Moles/Vol]138 mmol/UTnsehj238-820Uxh [facility] Comment on above:Performed By: #### PT, DDIM #### [facility] [address] [address] [address] Arden MagallonUrea nitrogen [Mass/Vol]18.0 mg/dLNormal7.0-18.0The Ob[facility]ulio HospitalComment on above:Performed By: #### PT, DDIM #### [facility] [address] [address] [address] Arden Jones nitrogen/Creatinine [Mass ratio]18.6 mg/mgNoTwin City HospitalComformerly [facility] on above:Performed By: #### PT, DDIM #### [facility] [address] [place] [address] Dr. Arden MagallonPROTIMEon 56-27-2836QUV Coag (PPP) [Relative time]1.49 {INR} NormalThe [facility] on above:Performed By: #### BNP, CMP #### [facility] [address] [place] [address] Dr. Arden Cortez GUIDELINESSEE [facility] HospitalComformerly [facility] on above:Result Comment: DESIRED INR: 2.0 - 3.0 CONDITIONS NOT LISTED BELOW 2.5 - 3.5 FOR PROSTHETIC HEART VALVE REPLACEMENT 2.5 - 3.5 RECURRENT THROMBOSIS Performed By: #### BNP, CMP #### [facility] [address] [place] [address] Dr. Arden MagallonPT Coag (PPP) [Time]15.7 sCritically high9.0-11.6The [facility] on above:Performed By: #### BNP, CMP #### [facility] [address] [place] [address] Dr. Arden May 71-36-0971kLSR Coag (Bld) [Time]30.2 iJlfxnf56.3-36.2[facility] on above:Performed By: #### BNP, CMP #### [facility] [address] [place] [address] Dr. Arden Green, HIGH SENSITIVITYon 98-71-0157SJZCXE7.3 pg/mLNormal 4.0-51.3The [facility] on above:Result Comment: CUT-OFF POINTS HAVE BEEN ESTABLISHED BASED ON THE FOURTH UNIVERSAL DEFINITIONS OF MYOCARDIAL INFARCTION. THE UPPER REFERENCE LIMIT (URL) OF TROPONIN, DEFINED THE 99TH PERCENTILE OF cTnI DISTRIBUTION IN A REFERENCE POPULATION, HAS BEEN CONFIRMED THE DECISION THRESHOLD FOR PR DIAGNOSIS.Performed By: #### BMP #### [facility] [address] [place] [address] Dr. Arden MagallonXR CHEST 1 Von [id number] CHEST 1 VEXAM: XR CHEST 1 V [...] Electronically authenticated by: MOMO RICO Date: 2022-08-26 12:29[facility] HospitalBNWestfields [facility] [id number] peptide B (Bld) [Mass/Vol]414.0 pg/mLNormal<=1,800.0The White HospitalComment on above:Performed By: #### BMP #### [facility] [address] [place] [address] Dr. Arden KevinC AUTO DIFFon 97-15-3740FYHH #0.2 103/ulCritically high0.0-0.1 The White HospitalComment on above:Performed By: #### BMP #### [facility] [address] [place] [address] Dr. Arden MagallonBasophils/100 WBC (Bld)2.8 %Critically high0.2-2.0The [facility] HospitalComment on above:Performed By: #### BMP #### [facility] [address] [place] [address] Dr. Arden Valdes #0.5 103/ulNormal0.0-0.7The [facility] HospitalComment on above: Performed By: #### BMP #### [facility] [address] [place] [address] Dr. Arden Carranzaosinophils/100 WBC (Bld)7.2 %Critically high0.9-7.0The [facility]ment on above:Performed By: #### BMP #### [facility] [address] [place] [address] Dr. Arden Carranzarythrocyte distribution width (RBC) [Ratio]14.1 %Gvmdwh77.0-15.0 The White HospitalComment on above:Performed By: #### BMP #### [facility] [address] [place] [address] Dr. Arden MagallonHematocrit (Bld) [Volume fraction]41.2 %Oyotdt51.0-48.0The [facility] on above:Performed By: #### BMP #### [facility] [address] [place] [address] Dr. Arden MagallonHemoglobin (Bld) [Mass/Vol]13.5 g/fSNqtutm64.0-16.0The [facility] Hospitalment on above:Performed By: #### BMP #### [facility] [address] [place] [address] Dr. Arden MagallonIG #0.01 10e3/ulNormal0.00-0.03The [facility] on above:Performed By: #### BMP #### [facility] [address] [place] [address] Dr. Arden MagallonIG %0.1 %Normal0.0-0.5The [facility] on above: Performed By: #### BMP #### [facility] [address] [place] [address] Dr. Arden AlcantaraMPH #2.7 103/ulNormal1.2-3.8The [facility] on above:Performed By: #### BMP #### [facility] [address] [place] [address] Dr. Arden Alcantaramphocytes/100 WBC (Bld)37.7 %Zcvyvx74.5-60.0The [facility] HospitalComment on above:Performed By: #### BMP #### [facility] [address] [place] [address] Dr. Arden Rodríguez DIFF REQNONormalThe White HospitalComment on above: Performed By: #### BMP #### [facility] [address] [place] [address] Dr. Arden Torres (RBC) [Entitic mass]31.2 nkCxjajo42.7-34.0The [facility] HospitalComment on above:Performed By: #### BMP #### [facility] [address] [place] [address] Dr. Arden Torres (RBC) [Mass/Vol]32.8 g/aJZzmifa61.9-35.2The [facility] HospitalComment on above:Performed By: #### BMP #### [facility] [address] [place] [address] Dr. Arden Torres (RBC) [Entitic vol]95.2 iXMsrxxn81.0-99.0The [facility] HospitalComment on above:Performed By: #### BMP #### [facility] [address] [place] [address] Dr. Arden Nelson #0.6 103/ulNormal0.3-0.8The [facility] HospitalComment on above:Performed By: #### BMP #### [facility] [address] [place] [address] Dr. Arden Perrinocytes/100 WBC (Bld)8.2 %Normal1.7-12.0[facility] Comment on above:Performed By: #### BMP #### [facility] [address] [place] [address] Dr. Arden Patterson #3.1 103/ulNormal1.4-6.5The [facility] HospitalComment on above:Performed By: #### BMP #### [facility] [address] [place] [address] Dr. Arden Miguelutrophils/100 WBC (Bld)44.0 %Tbrvdn10.0-75.0The [facility] HospitalComment on above:Performed By: #### BMP #### [facility] [address] [place] [address] Dr. Arden Salaslet mean volume (Bld) [Entitic vol]11.5 fLNormal9.5-13.5The [facility] on above:Performed By: #### BMP #### [facility] [address] [place] [address] Dr. Arden MagallonPLT160 103/qqVuheiz069-068Ave [facility] on above: Performed By: #### BMP #### [facility] [address] [place] [address] Dr. Arden MagallonRBC4.33 106/ulNormal4.20-5.40The [facility] on above:Performed By: #### BMP #### [facility] [address] [place] [address] Dr. Arden MagallonWBC7.1 103/ulNormal4.0-11.0The [facility] on above: Performed By: #### BMP #### [facility] [address] [place] [address] Dr. Arden Crespoon 27-50-9218A-DIMER0.36 mg/L FEUNormal<=0.59[facility] on above:Performed By: #### PT, DDIM #### [facility] [address] [place] [address] Dr. Arden Crespo COMMENTSSEE [facility] on above:Result Comment: Increases in D-Dimer [...] hospitalization. Performed By: #### PT, DDIM #### [facility] [address] [address] [address] Arden MagallonPROF 14(COMP METB)on 73-18-9654Zsgfzvz [Mass/Vol]3.7 g/dLNormal 3.4-5.0The [facility] HospitalComment on above:Performed By: #### CBC #### [facility] [address] [place] [address] Dr. Arden MagallonAlbumin/Globulin [Mass ratio]1.1 {ratio}NormalThe White HospitalComment on above:Performed By: #### CBC #### [facility] [address] [place] [address] Dr. Arden PughP [Catalytic activity/Vol]65 U/PBzvdgw24-542Rvx [facility] HospitalComment on above:Performed By: #### CBC #### [facility] [address] [place] [address] Dr. Arden PughT [Catalytic activity/Vol]15 U/XJwqlga97-51Asy [facility] HospitalComment on above:Performed By: #### CBC #### [facility] [address] [place] [address] Dr. Arden Lopez gap [Moles/Vol]6.1 mmol/LNormalThe [facility] HospitalComment on above:Performed By: #### CBC #### [facility] [address] [place] [address] Dr. rAden MagallonAST [Catalytic activity/Vol]11 U/LCritically ecc29-58Ell [facility] HospitalComment on above:Performed By: #### CBC #### [facility] [address] [place] [address] Dr. Arden MagallonBilirubin [Mass/Vol]0.4 mg/dLNormal0.2-1.0[facility] Comment on above:Performed By: #### CBC #### [facility] [address] [place] [address] Dr. Arden MagallonCalcium [Mass/Vol]9.6 mg/dLNormal8.5-10.1The [facility] Comment on above:Performed By: #### CBC #### [facility] [address] [address] [address] Arden MagallonChloride [Moles/Vol]106 mmol/YXyfdzl03-005Ncs [facility] Comment on above:Performed By: #### CBC #### [facility] [address] [address] [address] Arden MagallonCO2 [Moles/Vol]29.5 mmol/OQqaizj61.0-32.0The [facility] Comment on above:Performed By: #### CBC #### [facility] [address] [address] [address] Arden MagallonCreatinine [Mass/Vol]1.02 mg/dLNormal0.55-1.02The [facility] HospitalComment on above:Performed By: #### CBC #### [facility] [address] [place] [address] Dr. Her ChangEGFR-AF CITIZEN OF [place]>60Normal>=60The [facility] HospitalComment on above:Performed By: #### CBC #### [facility] [address] [address] [address] Arden CarranzaGFR-NON AF SHLVJLQC94 mL/min/1.34v2Sxeuwjkivn low>=60The [facility] HospitalComment on above:Performed By: #### CBC #### [facility] [address] [address] [address] Arden MagallonGlobulin (S) [Mass/Vol]3.3 g/dLNormalThe [facility] HospitalComment on above:Performed By: #### CBC #### [facility] [address] [address] [address] Arden MagallonGlucose [Mass/Vol]143 mg/dLCritically inrd49-967Cbf [facility] HospitalComment on above:Performed By: #### CBC #### [facility] [address] [address] [address] Arden MagallonPotassium [Moles/Vol]3.6 mmol/LNormal3.5-5.1The [facility] Comment on above:Performed By: #### CBC #### [facility] [address] [address] [address] Arden MagallonProtein [Mass/Vol]7.0 g/dLNormal6.4-8.2The [facility] Comment on above:Performed By: #### CBC #### [facility] [address] [place] [address] Dr. Arden MagallonSodium [Moles/Vol]138 mmol/NAfzskn573-909Nuw [facility] Comment on above:Performed By: #### CBC #### [facility] [address] [address] [address] Arden Jones nitrogen [Mass/Vol]21.0 mg/dLCritically high7.0-18.0The [facility] HospitalComment on above:Performed By: #### CBC #### [facility] [address] [place] [address] Dr. Arden Jones nitrogen/Creatinine [Mass ratio]20.6 mg/mgNormFort Hamilton Hospitale White HospitalComment on above:Performed By: #### CBC #### [facility] [address] [place] [address] Dr. Arden MagallonPROTIMEon 28-40-2929RXJ Coag (PPP) [Relative time]1.27 {INR} NormalThe White HospitalComment on above:Performed By: #### PT, DDIM #### [facility] [address] [place] [address] Dr. Arden Cortez GUIDELINESSEE BELOWBlanchard Valley Health System Bluffton HospitalComment on above:Result Comment: DESIRED INR: 2.0 - 3.0 CONDITIONS NOT LISTED BELOW 2.5 - 3.5 FOR PROSTHETIC HEART VALVE REPLACEMENT 2.5 - 3.5 RECURRENT THROMBOSIS Performed By: #### PT, DDIM #### [facility] [address] [place] [address] Dr. Arden MagallonPT Coag (PPP) [Time]13.5 sCritically high9.0-11.6The [facility] HospitalComment on above:Performed By: #### PT, DDIM #### [facility] [address] [place] [address] Dr. Arden Green, [facility] SENSITIVITYon 16-96-9508IZWBHN3.3 pg/mLNormal 4.0-51.3The [facility] on above:Result Comment: CUT-OFF POINTS HAVE BEEN ESTABLISHED BASED ON THE FOURTH UNIVERSAL DEFINITIONS OF MYOCARDIAL INFARCTION. THE UPPER REFERENCE LIMIT (URL) OF TROPONIN, DEFINED THE 99TH PERCENTILE OF cTnI DISTRIBUTION IN A REFERENCE POPULATION, HAS BEEN CONFIRMED THE DECISION THRESHOLD FOR PR DIAGNOSIS.Performed By: #### BMP #### [facility] [address] [address] [address] Arden MagallonXR CHEST 1 Von [id number] CHEST 1 VEXAMINATION: XR CHEST 1 V [...] Electronically authenticated by: HARJINDER RAMIREZ Date: 2022-08-17 13:57[facility] URINE PROFILEon 60-47-5984Pikitismk Ql (U)NegativeNormal NEGATIVEUc HealthComment on above:Performed By: #### PT, DDIM #### [facility] [address] [address] [address] Arden Miles (U)CLEARNormalCLEARThe White HospitalComment on above: Performed By: #### PT, DDIM #### [facility] [address] [address] [address] Arden Gutierrez (U)LT. YELLOWNormalYELLOWUc HealthComment on above:Performed By: #### PT, DDIM #### [facility] [address] [address] [address] Yilan ChangERUAHDA micrscopic examination will be performed if indicated. NormalThe White HospitalComment on above:Performed By: #### PT, DDIM #### [facility] [address] [place] [address] Dr. Arden MagallonGlucose Ql (U)NegativeNormalNEGATIVEUc HealthComment on above:Performed By: #### PT, DDIM #### [facility] [address] [address] [address] Arden MagallonHemoglobin Ql (U)SMALLAbnormalNEGATIVEUc Health Comment on above:Performed By: #### PT, DDIM #### [facility] [address] [place] [address] Dr. Arden MagallonKetones Ql (U)NegativeNormalNEGATIVEUc HealthComment on above:Performed By: #### PT, DDIM #### [facility] [address] [place] [address] Dr. Arden MagallonLEUKOCYTESTRACEAbnormalNEGATIVEUc HealthComment on above:Performed By: #### PT, DDIM #### [facility] [address] [place] [address] Dr. Arden MagallonNitrite Ql (U)NegativeNormalNEGATIVEUc HealthComment on above:Performed By: #### PT, DDIM #### [facility] [address] [place] [address] Dr. Arden MagallonpH (U)7.0 [pH]Normal5-9Uc HealthComment on above: Performed By: #### PT, DDIM #### [facility] [address] [place] [address] Dr. Arden MagallonSPEC GRAVITY1.721Ugnqsr4.005-<=1.025Uc HealthComment on above:Performed By: #### PT, DDIM #### [facility] [address] [address] [address] Arden MagallonUA PROTEINNegativeNormalNEGATIVE/ TRACEUc Health Comment on above:Performed By: #### PT, DDIM #### [facility] [address] [address] [address] Arden AYALA INDINDICATEDBlanchard Valley Health System Bluffton HospitalComment on above: Performed By: #### PT, DDIM #### [facility] [address] [address] [address] Arden Medina Qn (U)0.2 {Myranda'U}/dLNormal0.2 - 1.0The [facility] HospitalComment on above:Performed By: #### PT, DDIM #### [facility] [address] [address] [address] Arden Baez MICROSCOPIC ONLYon 33-32-6052SGGBAAENYTNZ SEENNormalNONE SEENUc HealthComformerly [facility] on above:Performed By: #### PT, DDIM #### [facility] [address] [place] [address] Dr. Arden Griffin identified Cx Nom (U)NOT INDICATEDNoTwin City HospitalComformerly [facility] on above:Performed By: #### PT, DDIM #### [facility] [address] [place] [address] Dr. Arden Burton SEENNormalNONE SEENUc HealthComformerly [facility] on above:Performed By: #### PT, DDIM #### [facility] [address] [address] [address] Arden Gonzalez LM Nom (Urine sed)NONE SEENNormalNONE SEENUc HealthComformerly [facility] on above:Performed By: #### PT, DDIM #### [facility] [address] [address] [address] Arden Leethelial cells LM Ql (Urine sed)RARENormalNONE SEEN /RAREThe [facility] HospitalComformerly [facility] on above:Performed By: #### PT, DDIM #### [facility] [address] [address] [address] Arden James SEENNormalNONE SEENUc HealthComformerly [facility] on above:Performed By: #### PT, DDIM #### [facility] [address] [place] [address] Dr. Arden MagallonTkusyKNY9-9Kpmxqs1-6Kiy [facility] on above:Performed By: #### PT, DDIM #### [facility] [address] [place] [address] Dr. Arden MagallonWBC0-2AbnormalNONE SEENThe White HospitalComment on above: Performed By: #### PT, DDIM #### [facility] [address] [place] [address] Dr. Arden MagallonXR CHEST 1 Von [id number] CHEST 1 VEXAMINATION: XR CHEST 1 V, [...] Electronically authenticated by: PANCHO ELY Date: 2022-04-15 22:19[facility] HospitalBNPon [id number] peptide B (Bld) [Mass/Vol]318.0 pg/mLNormal<=1,800.0The [facility] HospitalComformerly [facility] on above:Performed By: #### BNP, CMP #### [facility] [address] [place] [address] Dr. Arden MagallonCBC AUTO DIFFon 72-68-7080OFEJ #0.2 103/ulCritically high0.0-0.1 The [facility] on above:Performed By: #### PT, DDIM #### [facility] [address] [place] [address] Dr. Arden MagallonBasophils/100 WBC (Bld)2.2 %Critically high0.2-2.0The Obdulio HospitalComment on above:Performed By: #### PT, DDIM #### [facility] [address] [place] [address] Dr. Arden Valdes #0.5 103/ulNormal0.0-0.7The [facility] HospitalComment on above: Performed By: #### PT, DDIM #### [facility] [address] [place] [address] Dr. Arden Carranzaosinophils/100 WBC (Bld)6.2 %Normal0.9-7.0The [facility] Comment on above:Performed By: #### PT, DDIM #### [facility] [address] [place] [address] Dr. Arden Carranzarythrocyte distribution width (RBC) [Ratio]14.0 %Uumkny55.0-15.0 The White HospitalComment on above:Performed By: #### PT, DDIM #### [facility] [address] [place] [address] Dr. Arden MagallonHematocrit (Bld) [Volume fraction]41.6 %Gwikhi12.0-48.0The [facility] HospitalComment on above:Performed By: #### PT, DDIM #### [facility] [address] [place] [address] Dr. Arden MagallonHemoglobin (Bld) [Mass/Vol]13.8 g/zLDtcnuh57.0-16.0The [facility] Hospitalment on above:Performed By: #### PT, DDIM #### [facility] [address] [place] [address] Dr. Arden Mathew #0.01 10e3/ulNormal0.00-0.03The [facility] HospitalComment on above:Performed By: #### PT, DDIM #### [facility] [address] [place] [address] Dr. Arden Mathew %0.1 %Normal0.0-0.5The [facility] HospitalComment on above: Performed By: #### PT, DDIM #### [facility] [address] [place] [address] Dr. Arden Alvarado #3.2 103/ulNormal1.2-3.8The [facility] HospitalComment on above:Performed By: #### PT, DDIM #### [facility] [address] [place] [address] Dr. Arden Vitalehocytes/100 WBC (Bld)37.2 %Iycocd52.5-60.0The White HospitalComment on above:Performed By: #### PT, DDIM #### [facility] [address] [place] [address] Dr. Arden Rodríguez DIFF REQNONormalThe White HospitalComment on above: Performed By: #### PT, DDIM #### [facility] [address] [place] [address] Dr. Arden Torres (RBC) [Entitic mass]31.0 kzQinvxa15.7-34.0The White HospitalComment on above:Performed By: #### PT, DDIM #### [facility] [address] [place] [address] Dr. Arden Torres (RBC) [Mass/Vol]33.2 g/cXKursbw15.9-35.2The White HospitalComment on above:Performed By: #### PT, DDIM #### [facility] [address] [place] [address] Dr. Arden Torres (RBC) [Entitic vol]93.5 eVWdqtek82.0-99.0The White HospitalComment on above:Performed By: #### PT, DDIM #### [facility] [address] [place] [address] Dr. Arden Nelson #0.8 103/ulNormal0.3-0.8The White HospitalComment on above:Performed By: #### PT, DDIM #### [facility] [address] [place] [address] Dr. Arden Perrinocytes/100 WBC (Bld)9.4 %Normal1.7-12.0[facility] Comment on above:Performed By: #### PT, DDIM #### [facility] [address] [place] [address] Dr. Arden Patterson #3.9 103/ulNormal1.4-6.5The White HospitalComment on above:Performed By: #### PT, DDIM #### [facility] [address] [place] [address] Dr. Arden Miguelutrophils/100 WBC (Bld)44.9 %Bdrlvm63.0-75.0The White HospitalComment on above:Performed By: #### PT, DDIM #### [facility] [address] [place] [address] Dr. Arden Salaslet mean volume (Bld) [Entitic vol]10.7 fLNormal9.5-13.5The [facility] HospitalComformerly [facility] on above:Performed By: #### PT, DDIM #### [facility] [address] [place] [address] Dr. Arden MagallonPLT158 103/smXpydwy650-707Fvd [facility] on above: Performed By: #### PT, DDIM #### [facility] [address] [place] [address] Dr. Arden MagallonRBC4.45 106/ulNormal4.20-5.40The [facility] on above:Performed By: #### PT, DDIM #### [facility] [address] [place] [address] Dr. Arden MagallonWBC8.7 103/ulNormal4.0-11.0The [facility] HospitalComformerly [facility] on above: Performed By: #### PT, DDIM #### [facility] [address] [place] [address] Dr. Arden Madsen 14(COMP METB)on 40-06-3467Uuyjzqb [Mass/Vol]4.2 g/dLNormal 3.4-5.0The White HospitalComment on above:Performed By: #### BNP, CMP #### [facility] [address] [place] [address] Dr. Arden MagallonAlbumin/Globulin [Mass ratio]1.2 {ratio}NormalUc HealthComment on above:Performed By: #### BNP, CMP #### [facility] [address] [place] [address] Dr. Arden Amos [Catalytic activity/Vol]75 U/OTxexkw85-965Zcq White HospitalComment on above:Performed By: #### BNP, CMP #### [facility] [address] [address] [address] Arden Wyman [Catalytic activity/Vol]31 U/SMqtihm40-16Ynj White HospitalComment on above:Performed By: #### BNP, CMP #### [facility] [address] [place] [address] Dr. Arden Lopez gap [Moles/Vol]11.6 mmol/LNormalUc Health Comment on above:Performed By: #### BNP, CMP #### [facility] [address] [place] [address] Dr. Arden MagallonAST [Catalytic activity/Vol]16 U/FTqapye25-87Zwo [facility] HospitalComment on above:Performed By: #### BNP, CMP #### [facility] [address] [place] [address] Dr. Arden MagallonBilirubin [Mass/Vol]0.4 mg/dLNormal0.2-1.0[facility] Comment on above:Performed By: #### BNP, CMP #### [facility] [address] [place] [address] Dr. Arden MagallonCalcium [Mass/Vol]9.7 mg/dLNormal8.5-10.1[facility] Comment on above:Performed By: #### BNP, CMP #### [facility] [address] [place] [address] Dr. Arden MagallonChloride [Moles/Vol]106 mmol/MXivmyn16-536EpxUc Health Comment on above:Performed By: #### BNP, CMP #### [facility] [address] [place] [address] Dr. Arden MagallonCO2 [Moles/Vol]25.2 mmol/JFrohwr07.0-32.0[facility] Comment on above:Performed By: #### BNP, CMP #### [facility] [address] [place] [address] Dr. Arden MagallonCreatinine [Mass/Vol]1.06 mg/dLCritically high0.55-1.02Uc HealthComment on above:Performed By: #### BNP, CMP #### [facility] [address] [place] [address] Dr. Her ChangEGFR-AF WMVUYHVY77 mL/min/1.28m5Xdjdcd>=60[facility] Comment on above:Performed By: #### BNP, CMP #### [facility] [address] [place] [address] Dr. Arden CarranzaGFR-NON AF IQQYZZBM82 mL/min/1.59v9Zzdoqccqis low>=60The White HospitalComment on above:Performed By: #### BNP, CMP #### [facility] [address] [place] [address] Dr. Arden MagallonGlobulin (S) [Mass/Vol]3.4 g/dLNormalThe White HospitalComment on above:Performed By: #### BNP, CMP #### [facility] [address] [place] [address] Dr. Arden MagallonGlucose [Mass/Vol]123 mg/dLCritically ctay09-327Uws [facility] HospitalComment on above:Performed By: #### BNP, CMP #### [facility] [address] [place] [address] Dr. Arden MagallonPotassium [Moles/Vol]3.8 mmol/LNormal3.5-5.1[facility] Comment on above:Performed By: #### BNP, CMP #### [facility] [address] [place] [address] Dr. Arden MagallonProtein [Mass/Vol]7.6 g/dLNormal6.4-8.2[facility] Comment on above:Performed By: #### BNP, CMP #### [facility] [address] [place], [place] [address] Dr. Arden MagallonSodium [Moles/Vol]139 mmol/YUtraes170-661Qeo [facility] Comment on above:Performed By: #### BNP, CMP #### [facility] [address] [address] [address] Arden Jones nitrogen [Mass/Vol]22.0 mg/dLCritically high7.0-18.0The [facility] HospitalComment on above:Performed By: #### BNP, CMP #### [facility] [address] [address] [address] Arden Jones nitrogen/Creatinine [Mass ratio]20.8 mg/mgNoalThe White HospitalComment on above:Performed By: #### BNP, CMP #### [facility] [address] [address] [address] Her ChangECHOCARDIO M/2D COMPLETEon 57-77-1905PDAZUUFISQ M/2D COMPLETE Patient: ZORAIDA BARRIOS Exam Date: 04/06/2022 : 1935 Gender:F Ordering : SUSAN LONG Admission #: [id number] Family : Order #: [id number] CLICK HERE TO VIEW EXAM ECHOCARDIOGRAM REPORT [...] Area(A4C): 16.40 cm2 Left Atrium Systolic Volume(A2C): 86667 mm3 Left Atrium Systolic Volume(A4C): 85485 mm3 Mitral Valve MV E to A Ratio: 0.60 Deceleration [place]: 2080 mm/s2 Mitral Valve A-Wave Peak Velocity: 103.00 cm/s Mitral Valve E-Wave Peak Velocity: 62.20 cm/s Right Ventricle RV Internal Diastolic Dimension: 3.04 cm Aorta AO Root Diam: 2.90 cm Aortic Valve AoV Area (Peak Bucky): 1.86 cm2 Deceleration [place]: 1080 mm/s2 Pressure Half-Time: 976 ms Peak [...] by: Edvin Lisa M.D. on 04/06/2022 at 16:27[facility] HospitalUS KIDNEYSon 78-28-2454LJ KIDNEYSEXAMINATION: US KIDNEYS, grayscale and Doppler HISTORY: [...] Electronically authenticated by: BERTHA SOLIZ Date: 2022-04-06 16:45[facility] HospitalBNPon 79-14-7278Fbvssoppgge peptide B (Bld) [Mass/Vol]193.0 pg/mLNormal<=1,800.0The White HospitalComment on above:Performed By: #### BNP, CMP #### [facility] [address] [place] [address] Dr. Arden Marie AUTO DIFFon 08-34-8677PNQD #0.1 103/ulNormal0.0-0.1The White HospitalComment on above:Performed By: #### BNP, CMP #### [facility] [address] [place] [address] Dr. Arden MagallonBasophils/100 WBC (Bld)0.9 %Normal0.2-2.0[facility] Comment on above:Performed By: #### BNP, CMP #### [facility] [address] [place] [address] Dr. Arden Valdes #0.4 103/ulNormal0.0-0.7The White HospitalComment on above: Performed By: #### BNP, CMP #### [facility] [address] [place] [address] Dr. Arden Carranzaosinophils/100 WBC (Bld)4.7 %Normal0.9-7.0[facility] Comment on above:Performed By: #### BNP, CMP #### [facility] [address] [place] [address] Dr. Arden Carranzarythrocyte distribution width (RBC) [Ratio]14.2 %Saqoyh78.0-15.0 The White HospitalComment on above:Performed By: #### BNP, CMP #### [facility] [address] [place] [address] Dr. Arden MagallonHematocrit (Bld) [Volume fraction]43.1 %Dpmrpi87.0-48.0The White HospitalComment on above:Performed By: #### BNP, CMP #### [facility] [address] [place] [address] Dr. Arden MagallonHemoglobin (Bld) [Mass/Vol]14.1 g/bNBbnclx83.0-16.0The White HospitalComment on above:Performed By: #### BNP, CMP #### [facility] [address] [place] [address] Dr. Arden Mathew #0.04 10e3/ulCritically high0.00-0.03[facility] Comment on above:Performed By: #### BNP, CMP #### [facility] [address] [place] [address] Dr. Arden Mathew %0.5 %Normal0.0-0.5The White HospitalComment on above: Performed By: #### BNP, CMP #### [facility] [address] [place] [address] Dr. Arden Alvarado #3.0 103/ulNormal1.2-3.8The [facility] HospitalComment on above:Performed By: #### BNP, CMP #### [facility] [address] [place] [address] Dr. Arden Alcantaramphocytes/100 WBC (Bld)34.2 %Utkhvl90.5-60.0The White HospitalComment on above:Performed By: #### BNP, CMP #### [facility] [address] [place] [address] Dr. Arden Rodríguez DIFF REQNONormalThe White HospitalComment on above: Performed By: #### BNP, CMP #### [facility] [address] [place] [address] Dr. Arden Torres (RBC) [Entitic mass]31.3 saYyjslv39.7-34.0The White HospitalComment on above:Performed By: #### BNP, CMP #### [facility] [address] [place] [address] Dr. Arden oTrres (RBC) [Mass/Vol]32.7 g/iSUcypgx16.9-35.2The White HospitalComment on above:Performed By: #### BNP, CMP #### [facility] [address] [place] [address] Dr. Arden Leonard (RBC) [Entitic vol]95.8 zHXdabzt04.0-99.0The [facility] HospitalComment on above:Performed By: #### BNP, CMP #### [facility] [address] [place] [address] Dr. Arden Nelson #1.2 103/ulCritically high0.3-0.8[facility] Comment on above:Performed By: #### BNP, CMP #### [facility] [address] [place] [address] Dr. Arden Perrinocytes/100 WBC (Bld)13.5 %Critically high1.7-12.0The [facility] HospitalComment on above:Performed By: #### BNP, CMP #### [facility] [address] [place], [place] [address] Dr. Arden Patterson #4.1 103/ulNormal1.4-6.5The [facility] on above:Performed By: #### BNP, CMP #### [facility] [address] [place] [address] Dr. Arden Miguelutrophils/100 WBC (Bld)46.2 %Mqijwv99.0-75.0The [facility] HospitalComformerly [facility] on above:Performed By: #### BNP, CMP #### [facility] [address] [place] [address] Dr. Arden MagallonPlatelet mean volume (Bld) [Entitic vol]11.2 fLNormal9.5-13.5The [facility] on above:Performed By: #### BNP, CMP #### [facility] [address] [place] [address] Dr. Arden MagallonPLT160 103/yfGmsbxp305-838Nir [facility] on above: Performed By: #### BNP, CMP #### [facility] [address] [place] [address] Dr. Arden MagallonRBC4.50 106/ulNormal4.20-5.40The [facility] on above:Performed By: #### BNP, CMP #### [facility] [address] [place] [address] Dr. Arden MagallonWBC8.9 103/ulNormal4.0-11.0The [facility] on above: Performed By: #### BNP, CMP #### [facility] [address] [place] [address] Dr. Arden Madsen 14(COMP METB)on 78-54-4560Jcymhrg [Mass/Vol]4.0 g/dLNormal 3.4-5.0The [facility] on above:Performed By: #### BNP, CMP #### [facility] [address] [place] [address] Dr. Arden MagallonAlbumin/Globulin [Mass ratio]1.2 {ratio}NormalThe Obdulio HospitalComment on above:Performed By: #### BNP, CMP #### [facility] [address] [address] [address] Arden Amos [Catalytic activity/Vol]74 U/LMrotfm13-004Shn White HospitalComment on above:Performed By: #### BNP, CMP #### [facility] [address] [address] [address] Arden Wyman [Catalytic activity/Vol]28 U/OAerjoy48-14Ums [facility] HospitalComment on above:Performed By: #### BNP, CMP #### [facility] [address] [address] [address] Arden Lopez gap [Moles/Vol]11.9 mmol/LNormalThe [facility] Comment on above:Performed By: #### BNP, CMP #### [facility] [address] [address] [address] Arden MagallonAST [Catalytic activity/Vol]18 U/SYadlbj55-74Dlg [facility] HospitalComment on above:Performed By: #### BNP, CMP #### [facility] [address] [address] [address] Arden MagallonBilirubin [Mass/Vol]0.4 mg/dLNormal0.2-1.0[facility] Comment on above:Performed By: #### BNP, CMP #### [facility] [address] [address] [address] Arden MagallonCalcium [Mass/Vol]9.7 mg/dLNormal8.5-10.1[facility] Comment on above:Performed By: #### BNP, CMP #### [facility] [address] [address] [address] Arden MagallonChloride [Moles/Vol]105 mmol/JCfypir49-425Wla [facility] Comment on above:Performed By: #### BNP, CMP #### [facility] [address] [address] [address] Arden MagallonCO2 [Moles/Vol]26.3 mmol/ETqjxxc48.0-32.0[facility] Comment on above:Performed By: #### BNP, CMP #### [facility] [address] [address] [address] Arden MagallonCreatinine [Mass/Vol]1.31 mg/dLCritically high0.55-1.02The [facility] HospitalComment on above:Performed By: #### BNP, CMP #### [facility] [address] [address] [address] Arden CarranzaGFR-AF LSKUSBNG65 mL/min/1.09j1Vexqkkiajn low>=60The [facility] HospitalComment on above:Performed By: #### BNP, CMP #### [facility] [address] [place] [address] Dr. Arden CarranzaGFR-NON AF GWAEBMSP28 mL/min/1.96l8Wgwygmzvdd low>=60The [facility] HospitalComment on above:Performed By: #### BNP, CMP #### [facility] [address] [place] [address] Dr. Arden MagallonGlobulin (S) [Mass/Vol]3.3 g/dLNormalThe White HospitalComment on above:Performed By: #### BNP, CMP #### [facility] [address] [place] [address] Dr. Arden MagallonGlucose [Mass/Vol]111 mg/dLCritically tznn72-243Ttz [facility] HospitalComment on above:Performed By: #### BNP, CMP #### [facility] [address] [place] [address] Dr. Arden MagallonPotassium [Moles/Vol]4.2 mmol/LNormal3.5-5.1[facility] Comment on above:Performed By: #### BNP, CMP #### [facility] [address] [place] [address] Dr. Arden MagallonProtein [Mass/Vol]7.3 g/dLNormal6.4-8.2[facility] Comment on above:Performed By: #### BNP, CMP #### [facility] [address] [place] [address] Dr. Arden MagallonSodium [Moles/Vol]139 mmol/GKpvaee910-007Qwz [facility] Comment on above:Performed By: #### BNP, CMP #### [facility] [address] [id number] [address] Arden Jones nitrogen [Mass/Vol]24.0 mg/dLCritically high7.0-18.0The [facility] HospitalComment on above:Performed By: #### BNP, CMP #### [facility] [address] [id number] [address] Arden Jones nitrogen/Creatinine [Mass ratio]18.3 mg/mgNormalThe White HospitalComment on above:Performed By: #### BNP, CMP #### [facility] [address] [place] [address] Dr. Arden Green, HIGH SENSITIVITYon 95-99-1617LKZEXH9.6 pg/mLNormal 4.0-51.3The White HospitalComment on above:Result Comment: CUT-OFF POINTS HAVE BEEN ESTABLISHED BASED ON THE FOURTH UNIVERSAL DEFINITIONS OF MYOCARDIAL INFARCTION. THE UPPER REFERENCE LIMIT (URL) OF TROPONIN, DEFINED THE 99TH PERCENTILE OF cTnI DISTRIBUTION IN A REFERENCE POPULATION, HAS BEEN CONFIRMED THE DECISION THRESHOLD FOR PR DIAGNOSIS.Performed By: #### CBC #### [facility] [address] [place] [address] Dr. Arden Boles Summary.on 34-29-3770Mjqiap Summary. CD:[id number]:[id number]+PGhlYWQ+[id number] NJ4MHllI1BqkhOo [file] IGNv (more content not included)...NormalKing'S Daughters Medical Center OhioAuto Diffon 73-50-5360Ucsqzntoa/100 WBC (Bld)4.4 %High0.0-2.0[facility] [place] Comment on above:Order Comment: Order Added by Discern Expert.Performed By: #### [id number], [id number], 79027880, 1151957, 7206303 #### [facility] [place] [facility] [address] [place] [address] 40482Pihwrofbb/Leukocytes Auto (Bld) [Pure # fraction]0.3 E9/LHigh 0.0-0.2FDayton Osteopathic HospitalComment on above:Order Comment: Order Added by Discern Expert.Performed By: #### [id number], 4733434, 41774886, 9084843, 0722844 #### [facility] [place] [facility] [address] [place] [address] 79578Hwzrdzuwuok/100 WBC (Bld)3.8 %Normal0.0-8.0[facility] OhioComment on above:Order Comment: Order Added by Discern Expert.Performed By: #### [id number], 4818220, 03763690, 9629506, 2758952 #### [facility] [place] [facility] [address] [place] [address] 433[address]Vyvcswxbewh/Leukocytes Auto (Bld) [Pure # fraction]0.3 E9/L Normal0.0-0.5FDayton Osteopathic HospitalComment on above:Order Comment: Order Added by Discern Expert.Performed By: #### [id number], 7319783, 98878429, 9381919, 3644004 #### [facility] [place] [facility] [address] [place] [address] 117[address]Uylnoiybchv/100 WBC (Bld)31.3 %Qefedp08.0-50.0[facility] OhioComment on above:Order Comment: Order Added by Discern Expert. Performed By: #### [id number], 7649506, 70538728, 4441888, 8191559 #### [facility] [place] [facility] [address] [place] [address] 49461Hfciqleebso/Leukocytes Auto (Bld) [Pure # fraction]2.3 E9/L Normal1.0-4.0[facility] OhioComment on above:Order Comment: Order Added by Discern Expert.Performed By: #### [id number], 4412707, 50044287, 9017938, 6437194 #### [facility] [place] [facility] [address], [place] [address]Ivnpgbqqd/100 WBC (Bld)12.8 %Normal4.0-14.0[facility] OhioComment on above:Order Comment: Order Added by Discern Expert.Performed By: #### [id number], 8743337, 74488473, 7208941, 5879877 #### [facility] [place] [facility] [address] [place] [address] 416[address]Qmatkkjrd/Leukocytes Auto (Bld) [Pure # fraction]0.9 E9/LNormal 0.2-1.0[facility] Center OhioComment on above:Order Comment: Order Added by Discern Expert.Performed By: #### [id number], 7076848, 65048751, 8317543, 6507713 #### [facility] [place] [facility] [address] [place] [address]Nlntbzlalou/100 WBC (Bld)47.7 %Hhuzcz27.0-75.0[facility] Center OhioComment on above:Order Comment: Order Added by Discern Expert. Performed By: #### [id number], 3746117, 60969731, 7051105, 7665342 #### [facility] [place] [facility] [address] [place] [address]Nqzxoozpesy/Leukocytes Auto (Bld) [Pure # fraction]3.5 E9/L Normal2.0-7.5FDayton Osteopathic HospitalComment on above:Order Comment: Order Added by Discern Expert.Performed By: #### [id number], 8631278, 16831538, 1975798, 7926355 #### [facility] [address] [place] [address]STLuc 96-64-6259Fjbjdwsfbj [Mass/Vol]0.9 mg/dLNormal0.5-1.3 [facility] OhioComment on above:Performed By: #### [id number], 4019534, 73370592, 6775646, 1489672 #### [facility] [place] [facility] [address] [place] [address] 350[address]Iwpm nitrogen [Mass/Vol]20 mg/dLNormal5-21[facility] OhioComment on above:Performed By: #### 13597930, 7099797, 66562242, 3297415, 4726954 #### [facility] [place] [facility] [address], [place] [address]Hyyd nitrogen/Creatinine [Mass ratio]22 No JmxaqYyiv80-74YtnthsKing'S Daughters Medical Center OhioComment on above:Performed By: #### [id number], 3497164, 52543381, 1671581, 5802393 #### [facility] [place] [facility] [address], [place] [address]Sxgwo gap [Moles/Vol]13 mmol/LNormal6-16[facility] OhioComment on above:Performed By: #### 16540252, 6109559, 56991267, 3377002, 9894598 #### [facility] [place] [facility] [address], [place] [address]Btpymkk [Mass/Vol]9.9 mg/dLNormal8.9-11.1FDayton Osteopathic HospitalComment on above:Performed By: #### 23261903, 9330263, 57937112, 3254139, 3501094 #### [facility] [place] [facility] [address], [place] [address]Yawffhbt [Moles/Vol]104 mmol/AEgruyz211-491JhnnuxKing'S Daughters Medical Center OhioComment on above:Performed By: #### 68092857, 5388383, 96667786, 2230998, 6237836 #### [facility] [address], [place] [address]IW7 [Moles/Vol]24 mmol/EHzazvh21-19YjlibpKing'S Daughters Medical Center [place] Comment on above:Performed By: #### [id number], 8518355, 16772667, 7048629, 1444487 #### [facility] [address], [place] [address]Ppsvvou [Mass/Vol]136 mg/wKRozyuq72-505EyjakfKing'S Daughters Medical Center OhioComment on above:Result Comment: If this glucose result represents a fasting glucose, interpretation should refer tothe following reference range: 55-99 mg/dLPerformed By: #### [id number], 1528831, 06346169, 4194282, 6404202 #### [facility] [place] [facility] [address], [place] [address]Cvmylkrux [Moles/Vol]3.7 mmol/LNormal3.5-5.3FDayton Osteopathic HospitalComment on above:Performed By: #### [id number], 8033769, 80964471, 4569742, 1766630 #### [facility] [place] [facility] [address], [place] [address]Lgpgpt [Moles/Vol]137 mmol/ZNxxdrw994-207AkkkgpKing'S Daughters Medical Center OhioComment on above:Performed By: #### 22742864, 0329086, 44951818, 9240119, 7518907 #### [facility] [place] [facility] [address] [place] [address]QYH w/ Auto Diffon 92-22-8296Jjfefaeetwc distribution width (RBC) [Ratio]15.3 %High10.9-14.2FDayton Osteopathic HospitalComment on above: Performed By: #### 83671357, 6894520, 24479310, 2592441, 4678687 #### [facility] [place] [facility] [address] [place] [address]Cshqforknj (Bld) [Volume fraction]43.0 %Xmyaxb65.0-46.0[facility] Center OhioComment on above:Performed By: #### 58691908, 3697979, 96645093, 9790199, 5102743 #### [facility] [place] [facility] [address], [place] [address]Udgqigvaci (Bld) [Mass/Vol]14.4 g/sIQcnicl61.0-16.0[facility] OhioComment on above:Performed By: #### 02234504, 6922457, 19112681, 9281666, 1805157 #### [facility] [address], [place] [address]ZLW (RBC) [Entitic mass]31.0 vuOsrndy83.0-34.0[facility] OhioComment on above:Performed By: #### 55107695, 6098401, 91958666, 0701494, 8046473 #### [facility] [address] [place] [address]FXXX (RBC) [Mass/Vol]33.6 g/gDOwzuoi78.4-36.0[facility] OhioComment on above:Performed By: #### 05239077, 5890126, 86403988, 7953644, 7853837 #### [facility] [place] [facility] [address] [place] [address]LSO (RBC) [Entitic vol]92.2 jSZdqbwt43.0-100.0[facility] OhioComment on above:Performed By: #### 45126819, 1790882, 31495241, 0076238, 8957676 #### [facility] [place] [facility] [address] [place] [address]Xmfqndjp mean volume (Bld) [Entitic vol]9.2 fLNormal6.4-10.8 [facility] OhioComment on above:Performed By: #### 90422722, 5507339, 10472474, 7524147, 5315848 #### [facility] [address] [place] [id number] (Bld) [#/Vol]137.0 E9/PHlg909.0-500.0[facility] OhioComment on above:Performed By: #### [id number], [id number], [id number], [id number] #### [facility] [address] [place] [address]GOJ (Bld) [#/Vol]4.7 E12/LNormal4.3-5.9[facility] OhioComment on above:Performed By: #### [id number], [id number], [id number], [id number] #### Recinos [facility] [address], [place] [address]SWI corrected for nucl RBC Auto (Bld) [#/Vol]7.3 E9/LNormal 4.0-11.0[facility] OhioComment on above:Performed By: #### [id number], [id number], [id number], [id number], [id number] #### Jorje [facility] [address], [place] [address]SBAOWSOKDYhzkuqe By: SYSTEM SYSTEM on 69-00-8072Rycqu gap [Moles/Vol]13 mmol/LNormal6 - 16 mEq/LFTMC RemisolCalcium [Mass/Vol]9.9 mg/dL Normal8.9 - 11.1 mg/dLFTMC RemisolChloride [Moles/Vol]104 mmol/EMhbaxf535 - 111 mmol/LFTMC RemisolCO2 [Moles/Vol]24 mmol/NEuggsg77 - 31 mmol/LFTMC Remisol Creatinine [Mass/Vol]0.9 mg/dLNormal0.5 - 1.3 mg/dLFTMC RemisolGlucose [Mass/Vol]136 mg/lCNklpec55 - 199 mg/dLFTMC RemisolPotassium [Moles/Vol]3.7 mmol/LNormal3.5 - 5.3 mmol/LFTMC RemisolSodium [Moles/Vol]137 mmol/SHqhdzn238 - 145 mmol/LFTMC RemisolTroponin I.cardiac [Mass/Vol]8.10 pg/mLLow10.10 - 27.10 pg/mLFTMC RemisolUrea nitrogen [Mass/Vol]20 mg/dLNormal5 - 21 mg/dLFTMC Remisol Urea nitrogen/Creatinine [Mass ratio]22 mg/yaIuxd03 - 20FTMC RemisolCOAGULATION Ordered By: Belkis Watson on 69-69-0710kCLW Coag (PPP) [Time]25.4 qTtscok44.1 - 36.5 second(s)[facility] Auto CoagINR Coag (PPP) [Relative time]1.1 {INR}Invalid Interpretation CodeFTMC Auto CoagPT Coag (PPP) [Time]13.4 sHigh10.2 - 12.9 second(s)[facility] Auto CoagCT Head or Brain w/o Contraston 27-81-8877VJ Head or Brain w/o ContrastExam Date/Time: 02/24/2022 [...] Jacob Coon MD Transcribed by: KHANH Technologist: The Jewish HospitalConsent for Treatmenton 81-48-6335Nugfvdu for Treatment [id number]:127[facility] HospitalDischarge Instructionson 68-59-8659Kvjyfeaji Instructions [id number]#[id number]:127[facility] Clinical Summaryon [id number] Clinical Summary [address] [address] ED Clinical Summary Person Information Name: ZORAIDA BARRIOS/[place] Age: 86 Years : 1935 Sex: Female Language: Armenian PCP: LACEY FREY MD Marital Status: Single [...] 02/24/2022 10:32:06 02/24/2022 10:32:06 02/24/2022 10:32:06 ADDRESS: [address] [place] [id number] PHYS DOC NOTES: MEDICAL INFORMATION: Prescriptions Given: PATIENT EDUCATION INFORMATION: Instructions: Hypertension, Adult Follow up: With: Address: When: LACEY FREY [address] [place] [phone] Business (1) In 3 days 02/27/2022 Comments: [...] DIAGNOSIS: 1:Accelerated hypertensionNormalFisher Leland Medical CenterED Note-Physicianon [id number] Note-PhysicianBasic Information Time Seen: Norma PalaciosDemond 02/24/2022 [...] reported headache. 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 In the emergency room [...] LACEY FREY In 3 days 02/27/[address] [place] [phone]- Business (1) Additional Instructions: Increase Losartan [...] % High (02/24/22 0 (more content not included)...[facility] HospitalComment on above:Result Comment: Electronically Signed By: Norma Palacios, Demond Collins\.br\Date and Time Signed: 02/24/2211:07 EDTED Patient Education Noteon [id number] Patient Education NoteCardiovascular Hypertension, Adult High blood [...] or tofu. ? Avoi (more content not included)...[facility] Patient Summaryon [id number] Patient Summary [place] [address] Patient Discharge Instructions Person Information Name: ZORAIDA BARRIOS Age: 86 Years Arrival Date: 02/24/2022 08:11:05 Discharge Diagnosis: 1:Accelerated hypertension Primary Care Physician: LACEY FREY MD Provider Information Primary Provider: Demond Green M.D. Advanced Paleobotanist:None The exam and treatment you received in the Emergency Department were for an urgent problem and are not intended as complete care. It is important that you follow up with a doctor, nurse practitioner,or physician?s embalmer assistant for ongoing care. If your symptoms [...] Follow-up Instructions: With: Address: When: LACEY FREY [facility] [place] [address] Business (1) In 3 days 02/27/2022 Comments: [...] opioids can be used to help relieve tkchmdnf-mh-krewuj pain and are often prescribed following a [...] your community drug take- back program or [employer] mail-back program, or flush them down the toilet, following guidance from the Food and Drug Administration (www.fda.gov/Drugs/ResourcesForYou). ? Visit (more content not included)...[facility] HEMATOLOGYOrdered By: SYSTEM SYSTEM on 68-10-0615Dwtkqhhab/100 WBC (Bld)4.4 % High0.0 - 2.0 %[facility] HemeAutoSSBasophils/Leukocytes Auto (Bld) [Pure # fraction] 0.3 E9/LHigh0.0 - 0.2 E9/LFTMC HemeAutoSSEosinophils/100 WBC (Bld)3.8 %Normal0.0 - 8.0 %[facility] HemeAutoSSEosinophils/Leukocytes Auto (Bld) [Pure # fraction]0.3 E9/LNormal0.0 - 0.5 E9/LFTMC HemeAutoSSLymphocytes/100 WBC (Bld)31.3 %Kxroiq58.0 - 50.0 %[facility] HemeAutoSSLymphocytes/Leukocytes Auto (Bld) [Pure # fraction]2.3 E9/LNormal1.0 - 4.0 E9/LFTMC HemeAutoSSMonocytes/100 WBC (Bld)12.8 %Normal4.0 - 14.0 %[facility] HemeAutoSSMonocytes/Leukocytes Auto (Bld) [Pure # fraction]0.9 E9/L Normal0.2 - 1.0 E9/LFTMC HemeAutoSSNeutrophils/100 WBC (Bld)47.7 %Ethopr23.0 - 75.0 %[facility] HemeAutoSSNeutrophils/Leukocytes Auto (Bld) [Pure # fraction]3.5 E9/L Normal2.0 - 7.5 E9/LFTMC HemeAutoSSHEMATOLOGYOrdered By: Elena Vidales on 21-73-7888Ntsngleqgsi distribution width (RBC) [Ratio]15.3 %High10.9 - 14.2 % [facility] HemeAutoSSHematocrit (Bld) [Volume fraction]43.0 %Oknvkd38.0 - 46.0 %[facility] HemeAutoSSHemoglobin (Bld) [Mass/Vol]14.4 g/oRSexxuo28.0 - 16.0 gm/dLFTMC HemeAutoSSMCH (RBC) [Entitic mass]31.0 auXhkltn14.0 - 34.0 pgFTMC HemeAutoSSMCHC (RBC) [Mass/Vol]33.6 g/zELmcfai59.4 - 36.0 gm/dLFTMC HemeAutoSSMCV (RBC) [Entitic vol]92.2 qSJehvgm04.0 - 100.0 fLFTMC HemeAutoSSPlatelet mean volume (Bld) [Entitic vol]9.2 fLNormal6.4 - 10.8 fLFTMC HemeAutoSSPlatelets (Bld) [#/Vol]137.0 E9/ALrv631.0 - 500.0 E9/LFTMC HemeAutoSSRBC (Bld) [#/Vol]4.7 E12/L Normal4.3 - 5.9 E12/LFTMC HemeAutoSSWBC corrected for nucl RBC Auto (Bld) [#/Vol]7.3 E9/LNormal4.0 - 11.0 E9/LFTMC HemeAutoSSPT & PTTon 06-76-2531LUI Coag (PPP) [Relative time]1.1 {INR}Invalid Interpretation CodeKing'S Daughters Medical Center OhioComment on above:Result Comment: INR results are specifically intended to assess patients stabilized on long-term Anticoagulation therapy suggested INR?s ?Less Intensive Anticoagulation? 2.0 ? 3.0 Conventional Range 3.0 ? 4.5Performed By: #### [id number], [id number], [id number], [id number], [id number] #### [facility] [address], [place] [address]UM Coag (PPP) [Time]13.4 second(s)High10.2-12.9[facility] OhioComment on above:Performed By: #### [id number], [id number], [id number], [id number], [id number] #### [facility] [address], [place] [address]zLIB Coag (PPP) [Time]25.4 second(s)Knfuqo53.1-36.5FDayton Osteopathic HospitalComment on above:Result Comment: Heparin therapeutic range (represented by Anti-Factor Xa activity of 0.2 - 0.4 U/mL) corresponds to PTT of 56.6 - 109.0 sec.Performed By: #### [id number], 7195801, [id number], [id number], [id number] #### [facility] [address], [place] [address]Etklghoo 0 Hr.on 55-61-8892Polgknms I.cardiac [Mass/Vol]8.10 pg/mLLow10.10-27.10[facility] OhioComment on above:Result Comment: The 95% CI (Confidence Interval) PPV (Positive Predictive Value) for myocardial infarction in females is 38 pg/mL, in males 51 pg/mL. The results should be used in conjunction with clinical conditions of myocardial infarction. (Access High Sensitivity Troponin I Instructions For Use, Gwendolyn Preet, May 2018)Performed By: #### [id number], 4671110, [id number], 9888067, [id number] #### [facility] [address], [place] [address]EG Chest Single Viewon 67-25-5508JW Chest Single ViewExam Date/Time: 02/24/2022 08:44 EDT [...] 02/24/2022 11:58 am EDT, Trevon Tyler M.D., [facility] Vital Signs Date TimeVital SignValuePerforming JmubbppqtApliooxq27-81-8567 11:35-0400 Diastolic blood mm[Hg]Lacey Frey MD Work Phone: [phone]10-22-2025 11:35-0400 Heart rate68 /minLacey Frey MD Work Phone: [phone]10-22-2025 11:35-0400 Systolic blood uftxfwwg985 mm[Hg]Lacey Frey MD Work Phone: [phone]10-22-2025 11:27-0400 Body .48 cmLacey Frey MD Work Phone: [phone]10-22-2025 11:27-0400 Body mass index (BMI) [Ratio]23.3 kg/w0XpwemaLacey Frey MD Work Phone: [phone]10-22-2025 11:27-0400 Body .05 kgLacey Frey MD Work Phone: [phone]10-06-2025 11:44-0400 Diastolic blood figurrwx31 mm[Hg]Lacey Frey MD Work Phone: [phone] [place], [place] 2260210-06-2025 11:44-0400 Heart rate55 /Chico Frey MD Work Phone: [phone] [place], [place] 2260210-06-2025 11:44-0400 Systolic blood uzzajxoe453 mm[Hg]Lacey Frey MD Work Phone: [phone])[address] [place], [place] 2260210-06-2025 11:29-0400 Body snyqru263.48 cmLacey Frey MD Work Phone: [phone])[address] [place], [place] 2260210-06-2025 11:29-0400 Body mass index (BMI) [Ratio]23.4 kg/f0GdvgcgLacey Frey MD Work Phone: [phone])[address] [place], [place] 2260210-06-2025 11:29-0400 Body .2 Ed Frey MD Work Phone: [phone])[address] [place], [place] 2260208-04-2025 13:31-0400 Diastolic blood chuvqkhk43 mm[Hg]Lacey rFey MD Work Phone: [phone])[address] [place], [place] 2260208-04-2025 13:31-0400 Systolic blood ifyvhavh050 mm[Hg]Lacey Frey MD Work Phone: [phone])[address] [place], [place] 2260208-04-2025 13:21-0400 Body qiqzou056.48 cmLacey Frey MD Work Phone: [phone] [place], [place] 2260208-04-2025 13:21-0400 Body mass index (BMI) [Ratio]24 kg/n6GzyhwpLacey Frey MD Work Phone: [phone])[address] [place], [place] 2260208-04-2025 13:21-0400 Body rhxiwq06.56 Ed Frey MD Work Phone: [phone] [place], [place] 2260208-04-2025 13:21-0400 Heart rate57 /Chico Frey MD Work Phone: [phone]08-04-2025 13:21-0400 Respiratory rate12 /Chico Frey MD Work Phone: [phone]08-04-2025 13:21-0400 SaO2% (BldA) [Mass fraction]97 %Lacey Frey MD Work Phone: [phone]07-07-2025 11:21-0400 Body .48 cmLacey Frey MD Work Phone: [phone]07-07-2025 11:21-0400 Body mass index (BMI) [Ratio]24.1 kg/y4EgaglyLacey Frey MD Work Phone: [phone]07-07-2025 11:21-0400 Body luqxnu00.87 kgLacey Frey MD Work Phone: [phone]07-07-2025 11:21-0400 Diastolic blood kgrwiwkz81 mm[Hg]Lacey Frey MD Work Phone: [phone])[address] [place], [place] 2260207-07-2025 11:21-0400 Heart rate57 /Chico Frey MD Work Phone: [phone])[address] [place], [place] 2260207-07-2025 11:21-0400 SaO2% (BldA) [Mass fraction]97 %Lacey Frey MD Work Phone: [phone]07-07-2025 11:21-0400 Systolic blood mm[Hg]Lacey Frey MD Work Phone: [phone]04-29-2025 14:26-0400 Body liuxca585.48 cmOhiohealth [facility]04-29-2025 14:26-0400Body mass index (BMI) [Ratio]23.9 kg/e5XvecwcngsOhiohealth [facility]04-29-2025 14:0400Body wiuvkg95.42 kgOhiohealth Arthur G.[facility]. [facility], [facility]04-29-2025 14:26-0400Diastolic blood dehblceb71 mm[Hg][facility] 02-04-2025 14:26-0400Heart rate58 /[facility] 02-04-2025 14:-0400Systolic blood vzjvymer962 mm[Hg][facility]03-20-2025 13:02-0400Body ktdahs057.48 cmOhiohealth [facility]03-20-2025 13:02-0400Body mass index (BMI) [Ratio]24.7 kg/k7TrplthrxfOhiohealth [facility]03-20-2025 13:-0400Body uwbayt08.46 kgOhiohealth Arthur [facility]03-20-2025 13:02-0400Diastolic blood lfiefpdy38 mm[Hg] [facility]03-20-2025 13:-0400Heart rate69 /[facility]03-20-2025 13:-0400Systolic blood kmfoflnz934 mm[Hg] [facility]02-10-2025 13:05-0500Body oituhf121.48 cm [facility]02-10-2025 13:05-0500Body mass index (BMI) [Ratio]24 kg/i7MetxbvsmpOhiohealth [facility]02-10-2025 13:05-0500Body weight 59.56 kgOhiohealth [facility]02-10-2025 13:05-0500Diastolic blood snffiuhc22 mm[Hg][facility]02-10-2025 13:05-0500Heart rate65 /[facility]02-10-2025 13:05-0500Systolic blood vuuyyebo743 mm[Hg][facility]10-01-2024 14:24-0400Body efifbr574.48 cmOhiohealth [facility]10-01-2024 14:24-0400Body mass index (BMI) [Ratio]24.3 kg/v5HaxnhblknOhiohealth [facility]10-01-2024 14:24-0400Body qzmzsy95.46 kgOhiohealth [facility]10-01-2024 14:24-0400Diastolic blood guzzatws06 mm[Hg][facility] 07-09-2024 14:24-0400Heart rate57 /[facility] 07-09-2024 14:24-0400Systolic blood ebyjvhva119 mm[Hg][facility]07-30-2024 13:44-0400Body .48 cmOhiohealth [facility]07-30-2024 13:44-0400Body mass index (BMI) [Ratio]23.8 kg/p4WgedhzpeoOhiohealth [facility]07-30-2024 13:44-0400Body iuovhy37.96 kgOhiohealth Arthur [facility]. [facility], [facility]07-30-2024 13:44-0400Diastolic blood afbqxjhm95 mm[Hg] [facility]07-30-2024 13:44-0400Heart rate61 /[facility]07-30-2024 13:44-0400Systolic blood gqtwvvug603 mm[Hg] [facility]04-01-2024 11:43-0400Body zrfcoz405.48 cm [facility]04-01-2024 11:43-0400Body mass index (BMI) [Ratio]22.8 kg/n8NcgwaaiepOhiohealth Arthur [facility]04-01-2024 11:43-0400Body cglzex77.84 kgOhiohealth [facility]04-01-2024 11:43-0400Diastolic blood tpkmmfre39 mm[Hg][facility]04-01-2024 11:43-0400 Heart rate61 /[facility]04-01-2024 11:43-0400Systolic blood zqjvyrla611 mm[Hg][facility]08-31-2023 14:30-0400 Body acbvft816.48 cmLacey Frey Other [employer] Other 08-31-2023 14:30-0400Body mass index (BMI) [Ratio] 23.13 kg/y8FtrykiLacey Frey Other [employer] Other 08-31-2023 14:30-0400Body fipiek35.38 kgLacey Frey Other [employer] Other 08-31-2023 14:30-0400Diastolic blood yjfehfib83 mm[Hg] Lacey Frey Other [employer] Other 08-31-2023 14:30-0400Respiratory rate16 /minLacey Frey Other [employer] Other 08-31-2023 14:30-0400Systolic blood mm[Hg] Lacey Frey Other [employer] Other 03-14-2023 15:20-0400Body yxbpzq577.48 cmAdavidtiago Watson Other [employer] Other 03-14-2023 15:20-0400Body mass index (BMI) [Ratio] 23.08 kg/m2Rox Shirley Other [employer] Other 03-14-2023 15:20-0400Body ogajkhgojlz19 [degF]Rox Watson Other [employer] Other 03-14-2023 15:20-0400Body jypdoc07.24 kgRox Shirley Other [employer] Other 03-14-2023 15:20-0400Diastolic blood nazzrjcb54 mm[Hg] Adolfoaicha Dawnas Other [employer] Other 03-14-2023 15:20-0400Respiratory rate16 /minRox Shirley Other [employer] Other 03-14-2023 15:20-4299GzD1% (BldA) [Mass fraction]100 % Rox Watson Other [employer] Other 512485-67-4485 15:20-0400Systolic blood uzrvjmss031 mm[Hg] Rox Watson Other [facility] Other 911389-77-9737 10:12-0400Diastolic blood mm[Hg] [facility]05-19-2022 10:12-0400Heart rate68 /[facility]05-19-2022 10:12-0400Respiratory rate15 /[facility]05-19-2022 10:12-7602XkQ2% (BldA) [Mass fraction]98 %[facility]05-19-2022 10:12-0400Systolic blood werzihrt968 mm[Hg][facility]05-19-2022 09:24-0400Diastolic blood kdaagkca02 mm[Hg][facility]05-19-2022 09:24-0400Heart rate66 /[facility]05-19-2022 09:24-0400Respiratory rate16 /[facility]05-19-2022 09:24-4478KqP9% (BldA) [Mass fraction]99 %[facility]05-19-2022 09:24-0400 Systolic blood spvizfay266 mm[Hg][facility] 02-24-2022 08:50-0400Diastolic blood hxjymobo725 mm[Hg][facility]05-19-2022 08:50-0400Systolic blood eazpiduh721 mm[Hg][facility]05-19-2022 08:14-0400Body diqgrbffzda66.24 [degF][facility]05-19-2022 08:14-0400Heart rate 74 /minC[facility]05-19-2022 08:14-0400 Respiratory rate18 /minC[facility]05-19-2022 08:14-7767UqQ9% (BldA) [Mass fraction]99 %[facility] Encounters Encounter DateEncounter TypeCare ProviderFacilityStart: 07-30-2025 End: 99-09-6196ganeeapgbuPniooz E Braun MD Work Phone: [facility] 07-30-2025 End: 28-47-9588Jpaohnt encounter procedureLacey Frey MD-[facility] Work Phone: Start: 07-14-2025 End: 43-98-4528ueudxdnkgyDhywzv E Braun MD Work Phone: [facility] Work Phone: Start: 07-14-2025 End: 35-62-9416Jawjrin encounter procedureLacey Frey MD-[facility] Work Phone: Start: 08-83-5935Xox-patient / Non-visitMarnadja Hurtado MD-[facility] Work Phone: Start: 22-03-4955Lkw-patient / Non-visitJames Wiley DO- [facility] Work Phone: Start: 36-08-9570Qlz-patient / Non-visitCatshahbaz Wilkinson CMAAdena [facility] Work Phone: Start: 36-91-3092Jsk-patient / Non-visitDennys Perez DO-[facility] Work Phone: Start: 05-12-2025 End: 83-50-7831djwcptxbbsVlhfka E Braun MD Work Phone: [facility] Work Phone: Start: 05-12-2025 End: 41-95-7003Sivzttj encounter procedureLacey Frey MD-[facility] Work Phone: Start: 04-14-2025 End: 72-87-1507egapozwekuWzwbtc E Braun MD Work Phone: [facility] Work Phone: Start: 04-14-2025 End: 65-89-6644Dnhshwh encounter procedureLacey Frey MD-[facility] Work Phone: Start: 91-88-0258Ysx-patient / Non-visitCatshahbaz Wilkinson CMA-[facility] Work Phone: Start: 60-43-1773Cjr-patient / Non-visitAmy Jack LACY -[facility] Work Phone: Start: 02-12-2025 End: 68-99-4994mbvwjqsdjtREKYZTZ [facility]: 02-04-2025 End: 02-76-4191sgikkdiuurLbtxkusrnK[facility]tering [facility] Work Phone: Start: 02-04-2025 End: 75-41-6498Jylmyzq encounter procedureFirjoses Physician Group-[facility] Work Phone: Start: 02-03-2025 End: 95-13-7155Zyq-admission assessmentMoconchis Gregorio [facility] Start: 12-26-2024 End: 12-74-0186ofiolxsavmVagzznuhpKettering Health Work Phone: Start: 12-26-2024 End: 05-23-5842Npuwreh encounter procedureFirjoses Physician Group-[facility] Work Phone: Start: 58-69-7182Jzl-patient / Non-visitFirelands Physician Group-[facility] Work Phone: Start: 16-02-0444Kug-patient / Non-visitFirelands Physician Group-[facility] Work Phone: Start: 11-28-2024 End: 46-18-2237fazkxlanesYQDBUHMercy Health [facility] Start: 11-18-2024 End: 85-64-3281mtjftskmhjQrwaktlgnKettering Health Work Phone: Start: 11-18-2024 End: 48-85-0439Yhuqpnk encounter procedureFirdurhams Physician Group-[facility] Work Phone: Start: 07-09-2024 End: 67-68-4875notmgnyloiOtbmwwypuProvidence Hospital Work Phone: Start: 07-09-2024 End: 16-60-3728Ixfxfrg encounter procedureFirwarren memorial hospital Physician [facility] Work Phone: Start: 06-28-2024 End: 76-71-3466nqsnvyohvoECADJDLUniversity Hospitals Beachwood Medical Centertart: 01-79-9261Vop-patient / Non-visitFirelands Physician GroupNewport [facility] Work Phone: Start: 86-38-7839Rac-patient / Non-visitFirelands Physician Group-[facility] Work Phone: Start: 22-99-9293Gmc-patient / Non-visitFirelands Physician GroupNewport [facility] Work Phone: Start: 05-07-2024 End: 57-49-2804qjyupfmujlHczirxqgpKettering Health Work Phone: Start: 05-07-2024 End: 97-68-6071Eqmzvow encounter procedureFirwarren memorial hospital Physician GroupAdena [facility] Work Phone: Start: 05-01-2024 End: 34-72-8022ltohshjtohBGLEXTYMercy Health St[address] [facility] Hospitaltart: 98-69-3149Zkn-patient / Non-visitM[facility] Work Phone: Start: 03-28-2024 End: 01-99-6793tvnhaoediyZTSZJSMUniversity Hospitals Beachwood Medical Centertart: 01-08-2024 End: 29-99-2686sspaxpoprrGbawvodbeKettering Health Work Phone: Start: 01-08-2024 End: 54-32-2733Kpvxiyh encounter procedureMission Hospital Mcdowell Physician [facility] Work Phone: Start: 29-84-7943Nvj-patient / Non-visitMission Hospital [facility]cd[facility] Work Phone: Start: 06-08-2023 End: 25-65-9517ueexyrzlcvIyvbwo Frey Other [employer] Other Start: 40-06-8209Sbbrfa outpatient visit 15 minutes [facility]: 05-25-2023 End: 14-04-7293ykeieuvggfFlcjut Frey Other [employer] Other Start: 81-63-6551Grvzovlhk encounterMarcia [facility] Hospitaltart: 04-25-2023 End: 31-70-4587xhnsqzhmpxFhmgqx Frey Other [employer] Other Start: 74-46-3180Xbwdayfek encounterMarcia [facility] Hospitaltart: 03-23-2023 End: 08-92-6625hkhkutjuizUmibte Frey Other [employer] Other Start: 72-19-1342Fftfivvzt encounterMarcia [facility] Hospitaltart: 02-20-2023 End: 42-89-1326wjihxoshhvUzwqms Frey Other [employer] Other Start: 69-93-7107Nimfjyuot encounterLacey Rubio [facility] ClinicStart: 01-17-2023 End: 26-66-5123wlvszxaghuOvnoba Frey Other [employer] Other Start: 75-51-1539Gvysayidu encounterMareverett FreyPuma [facility] ClinicStart: 12-20-2022 End: 83-86-9792iyofyivqsdGyyo Bakhous Other [place] GIVTED Other Start: 18-02-2426PVSK visit new Luisito WatsonPuma NephrologyStart: 12-19-2022 End: 48-85-4087aacagexmlpRfsdnl Frey Other [place] GIVTED Other Start: 10-21-4933Jhgopvose encounterMareverett Rubio [facility] ClinicStart: 12-10-2022 End: 89-79-9848ryvvcppyujGCJHRII BOESFacility:Z7Pannj: 11-15-2022 End: 67-45-7210fqerfkashtZT GEORGIE WELLERFacility:T4Fvjsn: 10-09-2022 End: 06-67-8867mrudhwsospJI JAMES WILEY .Facility:M1Hbftw: 09-30-2022 End: 13-22-0506kcpjlsdabsTXGHF PARKERFacility:H7Zhqsn: 09-26-2022 End: 77-62-7291vwhxobocksKS HARJINDER RAMIREZFacility:W2Eeqom: 09-21-2022 End: 22-95-2808zodfurzfnbNU LACEY FREYFacility:C9Hmblk: 09-18-2022 End: 15-91-2887sgfrqwcsdiYH GEORGIE WELLERFacility:I3Klcgx: 09-11-2022 End: 48-89-2701jjuajuqctjSU JAMES PuentesFacility:T6Gdavr: 09-03-2022 End: 96-33-5713bwcxptneshBXXDV PARKERFacility:M6Xycst: 09-03-2022 End: 85-17-2136yurlxtwwnmXC JAMES WILEY .Facility:N6Xpmrs: 08-30-2022 End: 16-22-7658asqqwppwnzAT LACEY E BRAUNFacility:L7Wihjv: 08-26-2022 End: 12-95-1480qvoqqyjlbgIJ LACEY E BRAUNFacility:C4Kjmvv: 08-24-2022 End: 39-90-0426crraectxigLE LACEY E BRAUNFacility:X6Mpqtd: 08-17-2022 End: 64-22-6201fdwdqiazxnCF LACEY E BRAUNFacility:P9Kaqcb: 07-02-2022 End: 39-78-0244djcfmwjeqdNI LACEY E BRAUNFacility:C0Mnvpu: 04-15-2022 End: 20-89-6265wyfrpjwmhhQI LACEY E BRAUNFacility:J5Rracv: 35-47-8731wgzxotvoac AALIYAH BOESFacility:K1Wuddr: 04-06-2022 End: 19-38-8822xtzbxmyngnVBUGVQN ALGHOTHANIFacility:A7Bushq: 03-17-2022 End: 89-16-1258ojosjjfsgoHQ LACEY E BRAUNFacility:L4Lgilp: 02-24-2022 End: 91-35-9751Mgjtdcjyb department patient visitAstrit [facility] Plan of Treatment DateCare ActivityDetailAuthorStart: 74-75-7067Vnzsylh referralWilson Health Work Phone: Patient referralWilson [facility] Work Phone: US.doppler Carotid arteries - bilateralOhiohealth Arthur G.H. Bing, Md, Cancer CenterXR Chest 2 ViewsBaycare Alliant Hospital Payers DatePayer CategoryPayerPolicy [id number] 2.16.840.1.375611.3.579.2.71263-82-5735 [id number] 2.16.840.1.510920.3.57[id number] 2.16.840.1.643020.3.57[id number] 2.16.840.1.619380.3.57[id number] 2.16.840.1.925898.3.57[id number] 2.16.840.1.679012.3.57[id number] 2.16840.1.618928.3.57[id number] 2.16.840.1.848506.3.57[id number] 2.16.840.1.888090.3.57[id number] 2.16.840.1.352484.3.57[id number] 2.16.840.1.006964.3.57[id number] 2.16.840.1.410030.3.57[id number] 2.16.840.1.285543.3.57[id number] 2.16.840.1.369702.3.57[id number] 2.16.840.1.152913.3.57[id number] 2.16.840.1.687193.3.579.2.13076-45-6788Qidsrqm1384016 2.16.840.1.433221.3.57[id number] 2.16.840.1.961035.3.57[id number] 2.16.840.1.6327[id number] 2.16.840.1.535221.19Unknown [id number]-[id number] Social History DateTypeDetailFacilityTobacco smoking statusUnknown if ever smokedHolmes County Joel Pomerene Memorial Hospitalex Assigned At [facility] Ohiotart: 91-43-7069Ezt Assigned At [facility] Medical CenterTobacc smoking status NHISUnknown if ever smokedWilson Health Work Phone: Start: 02-24-2022 End: 71-96-0956MvbYlkoia (finding)[facility], Md, Cancer CenterTobacco smoking statusPremier Health [facility] Start: 05-60-6286Odeyabt smoking status NHISSmokes tobacco daily (finding)[facility] Clinical Notes 02-24-2022 to 05-12-2025 Note Date & QcwcKamcEbcsitgd45-79-3961 Evaluation note* Diagnosis Onset Date Resolution Status Admit Date Medicare annual wellness visit, subseque nt acuteAugust 2024 1:20pmResistant hypertensionacuteAugust 2024 1:20pm Tobacco dependence syndromeacuteAugust 2024 1:20pmPneumoniaacuteOctober 2024 11:19am [facility] Work Phone: 1(938) 763-940408-04-2025 Evaluation note* Diagnosis Onset Date Resolution Status Admit Date Medicare annual wellness visit, breana clemente acuteAugust 2024 1:20pmResistant hypertensionacuteAugust 2024 1:20pm Tobacco dependence syndromeacuteAugust 2024 1:20pmAnxietyacuteOctober 2024 11:19amHypertensionacuteOctober 2024 11:19amPneumoniaacuteOctober 2024 11:19amPilonidal cystacuteOctober 2024 11:17am [facility] Work Phone: 1(642) 339-221907-07-2025 Evaluation note* Diagnosis Onset Date Resolution Status Admit Date Resistant hypertension acuteJuly 2024 11:18am [facility] Work Phone: 1(394) 735-863105-07-2025 NoteUT Cardiology - [facility] Subjective Zoraida Barrios is a [...] presented to [facility] with elevated blood pressure reading. Blood [...] Take 1 ta (more content not included)... [facility]05-07-2025 NotePatient here for a 3 month [...] or heart burn. Review of Systems Constitutional: Negative.[facility]04-29-2025 Evaluation note* Diagnosis Onset Date Resolution Status Admit Date Objective pulsatile tinnitus of both ear s acuteApril 2024 2:23pmResistant hypertensionacuteApril 2024 2:23pm [facility] Work Phone: 1(400) 242-765502-20-2025 NoteUT Cardiology - [facility] Subjective Zoraida Barrios is a [...] presented to the emergency room at the [facility] with elevated blood pressure reading. Blood [...] normal, troponin high-sensitivity 8.8, (more content not included)...[facility]02-10-2025 Evaluation note* Diagnosis Onset Date Resolution Status Admit Date Resistant hypertension acuteNovember 18, 2024 1:01pmObjective pulsatile tinnitus of both earsacute December 26, 2024 12:58pmResistant hypertensionacuteDecember 26, 2024 12:58pm [facility] Work Phone: 1(144) 916-206502-10-2025 Evaluation note* Diagnosis Onset Date Resolution Status Admit Date Resistant hypertension acuteFe2024 1:01pmChronic kidney disease, stage 3bacuteDecember 26, 2024 12:58pmObjective pulsatile tinnitus of both earsacuteDecember 26, 2024 12:58pmResistant hypertensionNovant Health [facility] 2024 12:58pm [facility] Work Phone: 1(909) 899-304809-20-2024 NotePer assessment heart rates in the 50s No concerning symptoms at this time We will continue to monitor Discussed with patient to call office for any lightheadedness, dizziness, passing out she voiced understandingUnKindred Hospital [facility] 06-28-2024 NoteHypertension is stable for her blood pressure log is very well- controlled in office is always elevated most likely related to whitecoat syndrome Continue medicines as prescribed including carvedilol, clonidine, hydralazine, losartan, spironolactone Renal function stableUnKindred Hospital [place]09-20-2024 Notestable [facility]09-20-2024 NoteUTP CARDIOLOGY PROGRESS NOTE HPI: Zoraida [...] passing out she voiced understanding RTC 6 monthsMag[facility]09-20-2024 NotePt is here for three month follow up. Pt denies sob, chest pain, palpatations. Pt says one of her medications makes her dizzy but she does not know which one. Review of Systems Constitutional: Positive for diaphoresis (1 episode). Neurological: Positive for excessive daytime sleepiness (intermittent). All other systems reviewed and are negative.[facility] 05-01-2024 NoteHypertension is quite variable dependent [...] Vit D, Thyroid function and Vitamin B levels.[facility]07-24-2024 NoteCurrently stable [facility]07-24-2024 NotePt reports having noted heart rate 49-50's, and denied any significant symptoms associated. Will continue to monitor and D/W pt to call office for lightheadedness, dizziness, near syncope or syncope and she voiced understandingMagruder Hospital07-24-2024 NoteUTP CARDIOLOGY PROGRESS NOTE HPI: Zoraida Barrios is a 88 y.o. female here for hospital F/U HPI 88 yo female presents today for hospital F/U after recent evaluation for bradycardia Patient here for follow up [facility]. Says she went shopping with [...] negative ED note- Patient: ZORAIDA BARRIOS MR#: [id number] : 1935 Acct:[id number] Age/Sex: 88 / F ADM Date: 04/25/24 [...] place, and time. P (more content not included)...[facility]07-24-2024 NotePatient here for follow up [facility]. Says she went shopping with [...] (intermittent). All other systems reviewed and are negative.[facility] 03-28-2024 NoteStable Continue aldactone, fluid restriction and low sodium diet Continue regular exercise and activityUnKindred Hospital [facility] 03-28-2024 NoteWell controlled with aldactone currently no edemaUnKindred Hospital [place]06-20-2024 NoteHypertension is unchanged. Dietary sodium restriction. Continue current medications. Blood pressure will be reassessed in 3 months.[facility]06-20-2024 NotePatient here for 2 mo follow up hypertension and diastolic dysfunction. She had routine labs in January 2024. She denies chest pain, SOB, palpitations, and syncope. Sometimes gets lightheaded upon standing up. Review of Systems Neurological: Positive for excessive daytime sleepiness and light-headedness. All other systems reviewed and are negative.[facility] 03-28-2024 NoteUTP CARDIOLOGY PROGRESS NOTE HPI: [...] - with her evening/bedtime meds, she voiced understandingMagruder Hospital08-31-2023 Evaluation note* Encounter Date Diagnosis Assessment Notes Treatment Notes Treatment Clinical Notes May, Other insomnia (ICD-10 - G47.09) Pt states the ativan does help her insomnia and bp. Denies over-sedation symptoms. May,Resistant hypertension (ICD-10 - I10)Established w [facility] Cardiology. Recommend taking meds daily and keeping record and discussing bps w her provider there. [facility] Other 03-14-2023 Evaluation note* Encounter Date Diagnosis [...] pressure monitor reveals significantly better blood pressure [facility] Other [id number] Evaluation + Plan noteExtracted from:Title: ED NoteAuthor:Norma [...] Hr. XR Chest Single View [facility]05-19-2022 Hospital Discharge instructions Patient Education [...] care provider. This is important. Medicines Take stua-var-ymvuxjx and prescription medicines only as told by [...] 09/25/2006 Document Revised: 06/05/2019 Document Reviewed: 06/05/2019 [employer] Patient Education 2020 [employer]. Follow Up Care 02/24/2022 08:13:52 With:LACEY FREY Address: [address] [place], [place] [address]- Business (1) When:02/27/2022 10:23:00 Comments:Increase Losartan to 100 mg a day. Continue Metoprolol 50 mg a day. Make sure to take your blood pressure twice a day and follow-up with Dr. Frey tomorrow at 1 PM at her office. Return to the emergency room if your headache recurs, chest pain, dizziness or any new symptoms. [facility] CenterEvaluation noteNo InformationNortShriners Hospitals for Children - [facility] Dispatch Other Evaluation noteNo assessment information available [facility] Work Phone: Evaluation note* Diagnosis Onset Date Resolution Status Chronic kidney disease, stage 3b acuteResistant hypertensionacuteWeight gain, abnormalacute [facility] Work Phone: History general Narrative - Reported* Type Description Date Medical History HYPERTENSION Medical HistoryRENAL IMPAIRMENTMedical HistoryTOBACCO DEPENDENCE SYNDROME Surgical HistoryTUBAL LIGATIONSurgical HistoryCHOLECYSTECTOMYHospitalization HistorySEE ABOVE [facility] Dispatch Other Hospital course Narrative No data available for this section [facility] CenterHospital Discharge instructionsAmbulatory Orders* Referral to Vascular Surgery Time Frame: 12/26/24, Location: None Selected [facility] Work Phone: Hospital Discharge instructions No data available for this section [facility] Progress note No data available for this section [facility] Reason for referral (narrative)No reason for referral information availableWilson Health Work Phone: Summary Purpose Family History Relationship [...] section and content) DATE CREATED AUTHOR 03/05/2022 [facility] DATE CREATED AUTHOR AUTHOR'S ORGANIZ ATION 12/13/2022 [facility] DATE CREATED AUTHOR AUTHOR'S ORGANIZ ATION 02/15/2025 [facility] REASON FOR VISIT (unrecogniz ed section [...] Provider Active Start: May 11, 2024 [facility] ProviderActiveStart: May 11, 2024 Team Status: Active [...] Start: December 24, 2024 [facility] Isabel Hurtado [facility] ProviderActiveStart: December 24, 2024 Team [...] Team Status: Inactive Member Role/Relationship Status Dates aLcey Frey MD Primary Care Provider Active Start: [...] BE BASED ON THE PRIMARY CLINICAL RECORDS. [facility] [email or web address] [facility]. provides no warranty or guarantee of the accuracy or completeness of information in this document.
== END 2025-09-19 12:23 | disposition home or self-care (01) ==
LOC: ER 12:01
PROVIDERS: Emergency Provider Emergency Medicine; PCP Family Medicine
DX: S81.802A Unspecified open wound, left lower leg, initial encounter (principal); L89.159 Pressure ulcer of sacral region, unspecified stage
CPT/HCPCS: 99283